=== PATIENT | female | born 1980 | race Caucasian/White ===

== ENCOUNTER → 2020-06-27 11:02 | Outpatient (BNVA) | payer MEDICAID, SELFPAY | PROVIDERS: PCP Family Medicine; Referring Provider Family Medicine; Visit Provider Surgery | DX: L98.9 Disorder of the skin and subcutaneous tissue, unspecified (principal) | CPT/HCPCS: 99212 ==

== ENCOUNTER → 2020-07-04 09:37 | Outpatient (BNVA) | payer MEDICAID, SELFPAY | PROVIDERS: PCP Family Medicine; Referring Provider Family Medicine; Visit Provider Internal Medicine | DX: Z76.89 Persons encountering health services in other specified circumstances (principal) ==

== ENCOUNTER 2020-07-09 11:38 | Outpatient (REF) | payer MEDICAID, SELFPAY ==
[2020-07-09 13:46] LABS: Alanine Aminotransferase 49 U/L (0-31); Albumin Level 4.3 g/dL (3.5-5.0); Alkaline Phosphatase 112 U/L (39-117); Anion Gap 14 (12-20); Aspartate Amino Transferase 47 U/L (5-31); Bilirubin Total 0.6 mg/dL (0.0-1.0); Blood Urea Nitrogen 7 mg/dL (9-16); Calcium 9.4 mg/dL (8.4-10.2); Carbon Dioxide 25 mmol/L (22-29); Chloride 105 mmol/L (96-108); Cholesterol 155 mg/dL; Estimated Glomerular Filt Rate > 60; Glucose Random 153 mg/dL (60-115); HDL Cholesterol 41 mg/dL; LDL Cholesterol Calculated 80 mg/dl; Potassium 3.9 mmol/l (3.3-5.1); Sodium 140 mmol/L (135-145); Total Protein 7.8 g/dL (6.5-8.0); Triglycerides 170 mg/dL
[2020-07-09 13:46] LABS: Creatinine Urine 97.88 mg/dL; Microalbum/Creatinine Ratio Ur 19.4 ug/mg cr
[2020-07-09 14:00] LABS: Estimated Average Glucose 157 mg/dL; Hemoglobin A1c % 7.1 %
[2020-07-09 14:29] LABS: Vitamin B12 317 pg/mL (200-900)
[2020-07-10 08:06] LABS: LDL Cholesterol Direct 92 mg/dL (<100)
== END 2020-07-09 11:39 | disposition home or self-care (01) ==
LOC: HO.LAB 11:38
PROVIDERS: PCP Family Medicine; Visit Provider Internal Medicine
DX: E11.9 Type 2 diabetes mellitus without complications (principal); E55.9 Vitamin D deficiency, unspecified
CPT/HCPCS: 80053; 80061; 82043; 82306; 82607; 83036; 83721

== ENCOUNTER 2020-07-10 10:00 | Outpatient (REF) | payer MEDICAID, SELFPAY ==
[2020-07-10 10:15] VITALS: BP 130/84; PULSE 80; RESP 16; TEMP 36.1; O2SAT 99
[2020-07-10 10:18] VITALS: BMI 39.6
[2020-07-10 12:06] VITALS: BP 136/88; PULSE 91; RESP 16; O2SAT 100
--- NOTE | 2020-07-10 12:14 | MHC.SHP ---
Pre-Procedural Eval Section A The patient is an INPATIENT: No Changes since office visit: Yes Patient answered all questions; No Cold of Flu in the past 2 weeks, No New Medical Problems and No Changes in Medication The History & Physical has been completed within 30 days and I have reviewed it.: Yes Section B Chief Complaint: Skin Lesion of Breast Allergies: Allergies Allergy/AdvReac Type Severity Reaction Status Date / Time morphine [MORPHINE] Allergy Intermediate DIAPHORESIS; Verified 06/27/20 11:47 TACHYCARDIA, palpitations, sweating, tingling of hands and face quetiapine [From SEROQUEL] Allergy Intermediate PALPITATION Verified 06/27/20 11:47 S trazodone [TRAZODONE] Allergy Intermediate GI Upset, Verified 06/27/20 11:47 HEART RACING, palpitations diphenhydramine Allergy Unknown HALLUCINATI Verified 06/27/20 11:47 [From BENADRYL] ONS prednisone [PREDNISONE] Allergy Unknown HEART RACES Verified 06/27/20 11:47 SEAFOOD Allergy Intermediate HIVES Uncoded 05/09/20 16:23 Benadryl Allergy Unknown palpitations, Uncoded 11/06/19 00:00 sweating Seafood Allergy Unknown redness Uncoded 11/06/19 00:00 and itching Plan Diagnosis/Plan: Unchanged Patient has been examined and remains a candidate for the planned procedure
--- NOTE | 2020-07-10 12:14 | W.PM.OPN ---
Operative Note Operative Note Date of Service: 07/10/20 Narrative: Preoperative diagnosis: Lesion left breast Postoperative diagnosis: Same Procedure: Excision of lesion left breast Anesthesia: Local 1% lidocaine with epinephrine 2 cc Specimen: lesion left breast immediate complications: None Indications: This is a 39-year-old female who has developed a tender nodular lesion on the inferior aspect of the left breast. Etiology is unclear. Excision is planned. She is familiar with the technique and risks of infection bleeding and scarring. Procedure in detail: With the patient in the supine position, time-out procedure was performed in the location of the lesion was identified. The skin in the area of the lesion was prepped with Betadine solution and was draped sterilely. Incision lines were marked on the skin and skin and subcutaneous tissues were infiltrated with local anesthetic. An elliptical incision was made surrounding the lesion and was carried into the subcutaneous tissues. The lesion was excised at the level of the superficial subcutaneous tissues. The wound was closed with 3 interrupted sutures of 5 0 nylon. Final incision length 1.2 cm. She tolerated the procedure well. A dry sterile dressing was applied. She will keep the area dry and covered for 24 hours, will use acetaminophen as needed for pain, and will follow up in the office in 1 week for wound check and suture removal.
== END 2020-07-10 10:01 | disposition home or self-care (01) ==
LOC: HO.MS 10:00
PROVIDERS: PCP Family Medicine; Visit Provider Surgery
DX: N64.9 Disorder of breast, unspecified (principal); L72.0 Epidermal cyst; Z88.8 Allergy status to other drugs, medicaments and biological substances
CPT/HCPCS: 11400; 88304; 88305

== ENCOUNTER 2020-07-23 11:23 | Outpatient (REF) | payer MEDICAID, SELFPAY ==
--- NOTE | 2020-07-23 | US_ITS ---
EXAMINATION: US EXTREMITY NONVASCULAR, LEFT CLINICAL INFORMATION: Pain in left arm. Lump surgery performed 2 years ago left upper mid arm. COMPARISON: None TECHNIQUE: Routine triana-scale imaging of the left upper medial arm triceps area was performed where the patient has pain and lump. FINDINGS: Imaging through the left upper mid medial arm in the triceps region reveals no visible focal mass, lesion or abnormal vascularity. The adjacent basilic vein is compressible and has a normal flow. US/US extremity nonvascular IMPRESSION: Imaging through the left upper mid posterior arm reveals no focal mass or lesion.
== END 2020-07-23 11:24 | disposition home or self-care (01) ==
LOC: HO.US 11:23
PROVIDERS: Visit Provider Internal Medicine
DX: M79.602 Pain in left arm (principal); N64.9 Disorder of breast, unspecified; L98.9 Disorder of the skin and subcutaneous tissue, unspecified
CPT/HCPCS: 76882; 99212

== ENCOUNTER → 2020-08-21 13:10 | Outpatient (BNVA) | payer MEDICAID, SELFPAY | PROVIDERS: PCP Family Medicine; Visit Provider Dietitian, Registered | DX: Z76.89 Persons encountering health services in other specified circumstances (principal) ==

== ENCOUNTER → 2020-08-22 07:45 | Outpatient (BNVA) | payer MEDICAID, SELFPAY | PROVIDERS: PCP Family Medicine; Visit Provider Internal Medicine | DX: Z76.89 Persons encountering health services in other specified circumstances (principal) ==

== ENCOUNTER 2020-08-28 12:04 | Outpatient (REF) | payer MEDICAID, SELFPAY ==
--- NOTE | 2020-08-28 | US_ITS ---
EXAMINATION: US ABDOMEN COMPLETE CLINICAL INFORMATION: Right upper quadrant TTP, colicky pain x2 months, NAFLD. Assess for cholelithiasis. COMPARISON: CT abdomen and pelvis 01/26/2020. Ultrasound abdomen complete 10/19/2018. Ultrasound abdomen limited 02/22/2018. KUB 06/08/2013. TECHNIQUE: Real-time imaging of the abdominal viscera. FINDINGS: PANCREAS: The head and body pancreas is homogeneous in echotexture. The tail of pancreas is not seen well. ABDOMINAL AORTA: The proximal, mid, and distal segments are normal in caliber. INFERIOR VENA CAVA: Visualized portions are normal. LIVER: The liver is normal in size. The liver contour is normal. There is heterogenous increased liver echogenicity No focal hepatic lesion. There is no intrahepatic biliary duct dilatation seen. GALLBLADDER: Normal. The gallbladder is physiologically distended without evidence of stones, sludge, polyps, wall thickening or pericholecystic fluid. COMMON BILE DUCT: Normal in caliber measuring 0.7 cm in diameter. RIGHT KIDNEY: There is echogenic stone in midpole measuring 0.4 x 0.3 cm and echogenic stone lower pole measuring 0.5 cm. There is no caliectasis. No hydronephrosis or focal parenchymal lesions. The kidney measures 10.9 cm in maximum dimension. LEFT KIDNEY: Normal. No hydronephrosis. No renal calculi or focal parenchymal lesions. The kidney measures 10.0 cm in maximum dimension. SPLEEN: Normal. The spleen measures 11.2 cm in maximum dimension. FREE FLUID: None. US/US abdomen complete IMPRESSION: 1. Hepatic echogenicity without focal focal lesion seen. 2. Midpole and lower pole right renal cyst. 3. Rest of the abdominal ultrasound is unremarkable.
== END 2020-08-28 12:05 | disposition home or self-care (01) ==
LOC: HO.US 12:04
PROVIDERS: Visit Provider Emergency Medicine
DX: R10.11 Right upper quadrant pain (principal)
CPT/HCPCS: 76700

== ENCOUNTER → 2020-09-26 09:46 | Outpatient (BNVA) | payer MEDICAID, SELFPAY | PROVIDERS: PCP Internal Medicine; Visit Provider Urology | DX: N20.0 Calculus of kidney (principal); Z87.442 Personal history of urinary calculi | CPT/HCPCS: 99202 ==

== ENCOUNTER 2020-09-30 18:07 | Emergency (ER) | payer MEDICAID, SELFPAY ==
--- NOTE | ~2020-09-30 | XR_ITS ---
Examination: XR wrist RT min 3V, XR elbow RT min 3V Indication: fall Comparison: No pertinent prior studies are currently available for comparison. Technique: 3 views of the right elbow and 5 views the right wrist Findings: Elbow: No significant joint effusion. Bones are normal anatomic alignment with no acute fracture or dislocation seen. Right wrist: Bones are normal anatomic alignment. I do not appreciate any acute fracture or dislocation. No bony destructive lesions or periosteal reaction. No radiopaque foreign body. XR/XR wrist RT min 3V Impression: No acute fracture or dislocation.
--- NOTE | ~2020-09-30 | XR_ITS ---
EXAMINATION: XR SHOULDER, RIGHT CLINICAL INFORMATION: Fall on outstretched hand COMPARISON: Right shoulder 05/24/2017 TECHNIQUE: Three views of the right shoulder. FINDINGS: The bones and soft tissues are normal. No fracture. Glenohumeral and acromioclavicular alignment is anatomic with normal joint space. No abnormal soft tissue calcifications. XR/XR shoulder RT min 2V IMPRESSION: Normal right shoulder.
--- NOTE | ~2020-09-30 | XR_ITS ---
Examination: XR wrist RT min 3V, XR elbow RT min 3V Indication: fall Comparison: No pertinent prior studies are currently available for comparison. Technique: 3 views of the right elbow and 5 views the right wrist Findings: Elbow: No significant joint effusion. Bones are normal anatomic alignment with no acute fracture or dislocation seen. Right wrist: Bones are normal anatomic alignment. I do not appreciate any acute fracture or dislocation. No bony destructive lesions or periosteal reaction. No radiopaque foreign body. XR/XR elbow RT min 3V Impression: No acute fracture or dislocation.
[2020-09-30 18:50] VITALS: BP 133/70; PULSE 108; RESP 18; TEMP 37; O2SAT 97; BMI 42.0
--- NOTE | 2020-09-30 22:07 | ED_ITS ---
HPI - Fall General Chief Complaint: Fall Stated Complaint: fall Time Seen by Provider: 09/30/20 21:57 Source: patient Mode of arrival: ambulatory Limitations: language barrier History of Present Illness HPI Narrative: 39-year-old female with past medical history of kidney stone, hyperlipidemia, hypertension, type 2 diabetes presents with an injury sustained from a slip and fall on the ice. She reports right shoulder, right elbow and right wrist pain. Is having a very difficult time raising her arm up over her head. She does not report hitting her head, losing consciousness, denies chest pain or pressure, palpitations, shortness of breath, abdominal pain, abdominal distention, dysuria, hematuria and any other concerning symptoms. MD complaint: fall Onset (ago): hour(s) (Within the hour of arrival) Fall from: standing Fall witnessed: yes, by family Place fall occurred: home Loss of consciousness: none Prolonged down time: no Symptoms prior to fall: none Context: tripped/slipped Location of injury - extremities: right: shoulder, arm, elbow and hand Related Data Home Medications Medication Instructions Recorded Confirmed metformin 1,000 mg tablet 1,000 mg PO .COMPLEX tab 06/27/20 08/22/20 blood sugar diagnostic #10 ea 07/04/20 08/22/20 pantoprazole 40 mg granules 40 mg PO DAILY 07/04/20 08/22/20 delayed-release for susp in packet tramadol 50 mg tablet 50 mg PO BID PRN 07/04/20 08/22/20 vitamin A 8,000 unit capsule 10,000 unit PO DAILY cap 07/04/20 08/22/20 Previous Rx's Medication Instructions Recorded blood-glucose meter #1 ea 07/07/20 blood sugar diagnostic #100 ea 07/08/20 lancets 28 gauge #100 ea 07/08/20 atorvastatin 40 mg tablet 40 mg PO DAILY 30 Days #30 tab 08/22/20 cholecalciferol (vitamin D3) 1,250 1,250 mcg PO QWEEK 56 Days #8 cap 08/22/20 mcg (50,000 unit) capsule cholecalciferol (vitamin D3) 50 50 mcg PO DAILY 30 Days #30 cap 08/22/20 mcg (2,000 unit) capsule lisinopril 2.5 mg tablet 2.5 mg PO DAILY 30 Days #30 tab 08/22/20 pen needle, diabetic 32 gauge x #50 ea 09/26/2008/26 semaglutide See Rx Instructions SUBCUT QWEEK 09/26/20 #1.5 ml cyclobenzaprine 10 mg PO TID PRN #14 tab 09/30/20 Allergies Allergy/AdvReac Type Severity Reaction Status Date / Time morphine [MORPHINE] Allergy Intermediate DIAPHORESIS; Verified 09/30/20 18:50 TACHYCARDIA, palpitations, sweating, tingling of hands and face quetiapine [From SEROQUEL] Allergy Intermediate PALPITATION Verified 09/30/20 18:50 S trazodone [TRAZODONE] Allergy Intermediate GI Upset, Verified 09/30/20 18:50 HEART RACING, palpitations diphenhydramine Allergy Unknown HALLUCINATI Verified 09/30/20 18:50 [From BENADRYL] ONS prednisone [PREDNISONE] Allergy Unknown HEART RACES Verified 09/30/20 18:50 SEAFOOD Allergy Intermediate HIVES Uncoded 09/26/20 10:11 Benadryl Allergy Unknown palpitations, Uncoded 09/26/20 10:11 sweating Seafood Allergy Unknown redness Uncoded 09/26/20 10:11 and itching Review of Systems Review of Systems: Constitutional: No Fever, No Chills ENT/Mouth: No Ear Pain, No Hoarseness, No sore throat Eyes: No Eye Pain, No Swelling, No Redness, No Foreign Body Cardiovascular: No Chest Pain, No SOB Respiratory: No Cough, No Dyspnea Gastrointestinal: No Nausea, No Vomiting, No Diarrhea, No abdominal Pain Genitourinary: No Dysuria, No Hematuria Musculoskeletal: positive right shoulder, right elbow, and right hand pain, No Myalgias, No Joint Swelling Skin: No Skin lacerations, No rash Neuro: No Weakness, No Numbness, No Paresthesias, No Loss of Consciousness, No Dizziness, No Headache Psych: No Anxiety/Panic, No Depression Heme/Lymph: no easy bruising, no Lymphadenopathy Endocrine: No Polyuria, No Polydipsia Yes all other systems are reviewed and are negative [facility] Past Medical History Attestation statement: The following information was validated with the patient. Source: old records reviewed Medical History Asthma Diabetes mellitus HLD (hyperlipidemia) HTN (hypertension) T2DM (type 2 diabetes mellitus) Vitamin D deficiency Surgical History History of hysterectomy (~2011) History of local excision of skin lesion Family History Family History Father Heart disease Mother No problems noted. Social History Social History Alcohol intake: never Smoking Status: Never smoker Advance Directives: No Advance Directives Information Provided: Yes Physical Exam Vital Signs: Vital Signs: Last Vital Signs Temp 98.6 F 09/30/20 18:50 Pulse 108 H 09/30/20 18:50 Resp 18 09/30/20 18:50 BP 133/70 09/30/20 18:50 Pulse Ox 97 09/30/20 18:50 Body Mass Index 42.0 Appearance: Alert. Oriented X3. No acute distress. Eyes: Pupils equal, round and reactive to light. ENT: Pharynx normal. Neck: Normal inspection. Neck supple. CVS: Normal heart rate and rhythm. Pulses normal. Respiratory: No respiratory distress. Breath sounds normal. Abdomen: Soft and nontender. Skin: Skin warm and dry. Normal skin color. Normal skin turgor. Extremities: Tenderness to the acromion process on the right side, decreased range of motion for abduction, full flexion and extension of shoulder, elbow and right hands. No snuffbox tenderness, strength equal to both extremities. Neuro: No motor deficit. No sensory deficit. Course Course Course Narrative: 39-year-old female presents with injury sustained from a slip and fall on the ice. X-rays are negative for acute findings requiring emergent intervention. She does have some acromion process tenderness and decreased range of motion with abduction to the right shoulder. We will place patient in a sling wrap, and have her follow-up with orthopedics for suspected rotator cuff injury. Patient verbalized understanding of and agrees to plan of care discharge home. 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 MDM - Fall Differential Diagnosis Differential diagnosis: Likely dislocation and fracture Medical Records Attestation: I reviewed the patient's medical records. Lab Data Attestation: I reviewed the patient's lab results. Imaging Data Shoulder, elbow and wrist x-ray: Attestation: I personally reviewed and interpreted this imaging study as follows: Radiologist's impression: EXAMINATION: XR SHOULDER, RIGHT CLINICAL INFORMATION: Fall on outstretched hand COMPARISON: Right shoulder 05/24/2017 TECHNIQUE: Three views of the right shoulder. FINDINGS: The bones and soft tissues are normal. No fracture. Glenohumeral and acromioclavicular alignment is anatomic with normal joint space. No abnormal soft tissue calcifications. XR/XR shoulder RT min 2V IMPRESSION: Normal right shoulder. Examination: XR wrist RT min 3V, XR elbow RT min 3V Indication: fall Comparison: No pertinent prior studies are currently available for comparison. Technique: 3 views of the right elbow and 5 views the right wrist Findings: Elbow: No significant joint effusion. Bones are normal anatomic alignment with no acute fracture or dislocation seen. Right wrist: Bones are normal anatomic alignment. I do not appreciate any acute fracture or dislocation. No bony destructive lesions or periosteal reaction. No radiopaque foreign body. XR/XR wrist RT min 3V Impression: No acute fracture or dislocation. Discharge Plan Discharge Clinical Impression: Muscle strain of right shoulder region, Elbow pain, right Patient Disposition: Home, Self-Care Instructions: Rotator Cuff Injury (ED) Additional Instructions: Te evaluaron por las lesiones sufridas por noa ca?da. Se sospecha que usted tiene noa lesi?n en el tend?n derecho y el codo derecho. Por favor, martha un seguimiento con ortopedia. Llame y solicite noa rogelio. Use Tylenol, Motrin y hielo seg?n sea necesario para el manejo del dolor. Para espasmos musculares, por favor use Flexeril. Nirmal medicamento es un relajante muscular, y tiene un alto riesgo de ca?crouch y p?rdida de equilibrio. Tenga cuidado mientras mattie nirmal medicamento, no conduzca ni opere maquinaria mientras est? tomando nirmal medicamento. Tabitha por elegir nirmal departamento de emergencias para la evaluaci?n. Por favor, martha un seguimiento con el m?dico de atenci?n primaria seg?n sea necesario. Regrese al servicio de urgencias para cualquier s?ntoma nuevo, preocupante o que empeore. You were evaluated for injuries sustained from a fall. It is suspected that you have a tendon injury to the right shoulder and the right elbow. Please follow- up with orthopedics. Please call and request an appointment. Use Tylenol, Motrin, and ice as needed for pain management. For muscle spasms, please use Flexeril. This medication is a muscle relaxer, and has high risk for falls and loss of balance. Use caution while taking this medication, do not drive or operate machinery while taking this medication. Thank you for choosing this emergency department for evaluation. Please follow-up with primary care physician as needed. Return to the emergency department for any new, concerning, or worsening symptoms. Prescriptions: New cyclobenzaprine 10 mg tablet 10 mg PO TID PRN (Reason: muscle spasm) Qty: 14 RF: 0 No Action (DME) Blood Glucose Test Strip See Rx Instructions .ROUTE .MEDSUPPLY Qty: 100 RF: 11 Ozempic 0.25 mg or 0.5 mg(2 mg/1.5 mL) pen injector See Rx Instructions subcut QWEEK Qty: 1.5 RF: 11 (DME) pen needle, diabetic [BD Ultra-Fine Micro Pen Needle] 32 gauge x 1/4 needle See Rx Instructions .ROUTE .MEDSUPPLY Qty: 50 RF: 11 metformin 1,000 mg tablet 1,000 mg PO .COMPLEX RF: 0 pantoprazole [Protonix] [address] for susp in packet 40 mg PO DAILY RF: 0 vitamin A 8,000 unit capsule 10,000 unit PO DAILY RF: 0 tramadol 50 mg tablet 50 mg PO BID PRNRF: 0 (DME) FreeStyle Test Strip See Rx Instructions .ROUTE .MEDSUPPLY Qty: 10 RF: 0 (DME) blood-glucose meter [FreeStyle Lite Meter] Kit See Rx Instructions .ROUTE .MEDSUPPLY Qty: 1 RF: 0 (DME) lancets [FreeStyle Lancets] 28 gauge misc See Rx Instructions .ROUTE .MEDSUPPLY Qty: 100 RF: 11 atorvastatin 40 mg tablet 40 mg PO DAILY 30 Days Qty: 30 RF: 11 lisinopril 2.5 mg tablet 2.5 mg PO DAILY 30 Days Qty: 30 RF: 11 cholecalciferol (vitamin D3) 50 mcg (2,000 unit) capsule 50 mcg PO DAILY 30 Days Qty: 30 RF: 11 cholecalciferol (vitamin D3) 1,250 mcg (50,000 unit) capsule 1,250 mcg PO QWEEK 56 Days Qty: 8 RF: 0 Referrals: Juan Antonio Rios MD [Physician] - 2 days (Right shoulder rotator cuff injury) Interventions: ED Discharge Assessment Last Done: 09/30/20 22:36 Discharge Date/Time: 09/30/20 22:37
[2020-09-30] MEDS: Cyclobenzaprine HCl 10 MG TABLET PO (22:28)
[2020-09-30] MEDS: Ketorolac Tromethamine 60 MG/2 ML VIAL IM (22:29)
== END 2020-09-30 22:37 | disposition home or self-care (01) ==
PROVIDERS: Emergency Provider Internal Medicine
DX: S46.911A Strain of unspecified muscle, fascia and tendon at shoulder and upper arm level, right arm, initial encounter (principal); W00.0XXA Fall on same level due to ice and snow, initial encounter; M25.521 Pain in right elbow; E11.9 Type 2 diabetes mellitus without complications; I10 Essential (primary) hypertension; Y93.89 Activity, other specified; Y92.9 Unspecified place or not applicable; Y99.9 Unspecified external cause status
CPT/HCPCS: 73030; 73080; 73110; 96372; 99283; 99284; J1885

== ENCOUNTER → 2020-10-04 12:38 | Outpatient (BNVA) | payer MEDICAID, SELFPAY | PROVIDERS: Visit Provider Physician Assistant | DX: S46.911A Strain of unspecified muscle, fascia and tendon at shoulder and upper arm level, right arm, initial encounter (principal) | CPT/HCPCS: 99202 ==

== ENCOUNTER 2020-10-09 06:52 | Day surgery (SDC) | payer MEDICAID, SELFPAY ==
[2020-10-01 19:13] VITALS: BMI 39.0
--- NOTE | 2020-10-08 12:16 | HO.ANESPROP2 ---
Documented by User: Maribel Lydia 10/08/20 12:20 HPI - Anesthesia Eval Consult details Narrative: 39yo F for R ESWL No prev ESWL on record PMFSH Active Problems Active Problems: All Active Problems (Updated 10/04/20 @ 13:11 by Margi Pizarro PA-C) Rotator cuff strain (Acute) Right shoulder strain (Acute) Skin lesion of breast (Acute) Skin lesion (Acute) Nephrolithiasis (Acute) Vitamin D deficiency (Acute) HLD (hyperlipidemia) (Acute) HTN (hypertension) (Acute) T2DM (type 2 diabetes mellitus) (Acute) Past Medical History Medical History Anxiety Asthma Diabetes mellitus Elevated cholesterol Fatty liver GERD (gastroesophageal reflux disease) HLD (hyperlipidemia) HTN (hypertension) Migraines T2DM (type 2 diabetes mellitus) Vitamin D deficiency Family History Family History Father Heart disease Mother No problems noted. Surgical History Surgical History History of hysterectomy (~2011) History of local excision of skin lesion Social History Social History Alcohol intake: never Smoking Status: Never smoker Second Hand Smoke Exposure: No Use of substances other than those prescribed or required for medical reasons: No Advance Directives: No Advance Directives Information Provided: No Advance Directives on File: No Recently lost weight without trying: No Meds Allergies Allergy/AdvReac Type Severity Reaction Status Date / Time morphine [MORPHINE] Allergy Intermediate DIAPHORESIS; Verified 10/09/20 08:18 TACHYCARDIA, palpitations, sweating, tingling of hands and face quetiapine [From SEROQUEL] Allergy Intermediate PALPITATION Verified 10/09/20 08:18 S trazodone [TRAZODONE] Allergy Intermediate GI Upset, Verified 10/09/20 08:18 HEART RACING, palpitations diphenhydramine Allergy Unknown HALLUCINATI Verified 10/09/20 08:18 [From BENADRYL] ONS prednisone [PREDNISONE] Allergy Unknown HEART RACES Verified 10/09/20 08:18 SEAFOOD Allergy Intermediate HIVES Uncoded 09/26/20 10:11 Benadryl Allergy Unknown palpitations, Uncoded 09/26/20 10:11 sweating Seafood Allergy Unknown redness Uncoded 09/26/20 10:11 and itching Home Medications Medication Instructions Recorded Confirmed Last Taken Type metformin 1,000 mg tablet 1,000 mg PO .COMPLEX tab 06/27/20 10/01/20 Unknown History blood sugar diagnostic #10 ea 07/04/20 08/22/20 Unknown History pantoprazole 40 mg granules 40 mg PO DAILY 07/04/20 10/01/20 Unknown History delayed-release for susp in packet tramadol 50 mg tablet 50 mg PO BID PRN 07/04/20 10/01/20 Unknown History vitamin A 8,000 unit capsule 10,000 unit PO DAILY cap 07/04/20 10/01/20 Unknown History albuterol sulfate 2 puff INHALATION Q4-6H PRN 10/01/20 10/01/20 10/09/20 06:30 History Exam Exam Date and Time: October 08, 2020 1216 Height,Weight and Vital Signs: Height 5 ft Weight 90.718 kg Pertinent Lab Results Pertinent Lab Results: Laboratory Tests 07/13/19 07/09/20 13:48 11:54 WBC 9.0 Hgb 13.5 Hct 38.9 Plt Count 271 Sodium 140 Potassium 3.9 Chloride 105 Carbon Dioxide 25 BUN 7 L Creatinine 0.74 Assessment and Plan Assessment Anesthesia Assessment: Chart Reviewed Documented by User: Sonia Juarez 10/09/20 10:06 [facility] Past Medical History Medical History Anxiety Asthma Diabetes mellitus Elevated cholesterol Fatty liver GERD (gastroesophageal reflux disease) HLD (hyperlipidemia) HTN (hypertension) Migraines T2DM (type 2 diabetes mellitus) Vitamin D deficiency Family History Family History Father Heart disease Mother No problems noted. Surgical History Surgical History History of hysterectomy (~2011) History of local excision of skin lesion Social History Social History Alcohol intake: never Smoking Status: Never smoker Second Hand Smoke Exposure: No Use of substances other than those prescribed or required for medical reasons: No Advance Directives: No Advance Directives Information Provided: No Advance Directives on File: No Recently lost weight without trying: No Meds Allergies Allergy/AdvReac Type Severity Reaction Status Date / Time morphine [MORPHINE] Allergy Intermediate DIAPHORESIS; Verified 10/09/20 08:18 TACHYCARDIA, palpitations, sweating, tingling of hands and face quetiapine [From SEROQUEL] Allergy Intermediate PALPITATION Verified 10/09/20 08:18 S trazodone [TRAZODONE] Allergy Intermediate GI Upset, Verified 10/09/20 08:18 HEART RACING, palpitations diphenhydramine Allergy Unknown HALLUCINATI Verified 10/09/20 08:18 [From BENADRYL] ONS prednisone [PREDNISONE] Allergy Unknown HEART RACES Verified 10/09/20 08:18 SEAFOOD Allergy Intermediate HIVES Uncoded 09/26/20 10:11 Benadryl Allergy Unknown palpitations, Uncoded 09/26/20 10:11 sweating Seafood Allergy Unknown redness Uncoded 09/26/20 10:11 and itching Home Medications Medication Instructions Recorded Confirmed Last Taken Type metformin 1,000 mg tablet 1,000 mg PO .COMPLEX tab 06/27/20 10/01/20 Unknown History blood sugar diagnostic #10 ea 07/04/20 08/22/20 Unknown History pantoprazole 40 mg granules 40 mg PO DAILY 07/04/20 10/01/20 Unknown History delayed-release for susp in packet tramadol 50 mg tablet 50 mg PO BID PRN 07/04/20 10/01/20 Unknown History vitamin A 8,000 unit capsule 10,000 unit PO DAILY cap 07/04/20 10/01/20 Unknown History albuterol sulfate 2 puff INHALATION Q4-6H PRN 10/01/20 10/01/20 10/09/20 06:30 History Exam Airway Mallampati Class: II TM Dist: >3cm Neck ROM: Full Assessment and Plan Assessment Anesthesia Assessment: Anesthesia Plan Discussed and Chart Reviewed Final Anesthetic Review NPO: Yes ASA Class: II Final Preanesthetic Review: No Changes in Pt Med Stat, Meds/Allgs Chart Reviewed, Consent Obtained/Reviewed and Anes Risks/Benef Reviewed Patient Risk: Low Procedure Risk: Low Assessment/Block/Sedation in SS: Assess/Block/Sedation-SS Anesthetic Plan Anesthetic Plan: MAC: Disposition: Standard PACU
--- NOTE | ~2020-10-09 | XR_ITS ---
EXAMINATION: XR ABDOMEN KUB CLINICAL INDICATION: Stones. COMPARISON: CT of 01/26/2020. TECHNIQUE: AP view of the abdomen. FINDINGS: The bowel gas pattern is normal with no evidence of ileus or obstruction. The bones are unremarkable. Overlying the region of the midpole of the right kidney, there is a 4 mm calculus corresponding to CT finding. No other calculi are seen overlying the kidneys or along the expected paths of the ureters. Phleboliths seen about the left pelvis. Psoas margins are intact. XR/XR KUB IMPRESSION: 4 mm right renal calculus.
[2020-10-09 08:31] VITALS: BP 120/75; PULSE 92; RESP 16; TEMP 36.4; O2SAT 98
[2020-10-09 08:36] LABS: Glucose, Whole Blood 120 mg/dL (60-115)
[2020-10-09] MEDS: Lactated Ringers 1,000 ML 100 ML IVCONT (08:43)
--- NOTE | 2020-10-09 09:57 | MHC.SHP ---
Pre-Procedural Eval Section A The patient is an INPATIENT: No Changes since office visit: No Cold of Flu in the past 2 weeks, No New Medical Problems, No Changes in Medication and No Patient answered all questions The History & Physical has been completed within 30 days and I have reviewed it.: Yes Section B Chief Complaint: calculus of kidney Allergies: Allergies Allergy/AdvReac Type Severity Reaction Status Date / Time morphine [MORPHINE] Allergy Intermediate DIAPHORESIS; Verified 10/09/20 08:18 TACHYCARDIA, palpitations, sweating, tingling of hands and face quetiapine [From SEROQUEL] Allergy Intermediate PALPITATION Verified 10/09/20 08:18 S trazodone [TRAZODONE] Allergy Intermediate GI Upset, Verified 10/09/20 08:18 HEART RACING, palpitations diphenhydramine Allergy Unknown HALLUCINATI Verified 10/09/20 08:18 [From BENADRYL] ONS prednisone [PREDNISONE] Allergy Unknown HEART RACES Verified 10/09/20 08:18 SEAFOOD Allergy Intermediate HIVES Uncoded 09/26/20 10:11 Benadryl Allergy Unknown palpitations, Uncoded 09/26/20 10:11 sweating Seafood Allergy Unknown redness Uncoded 09/26/20 10:11 and itching Plan Diagnosis/Plan: Unchanged I have reviewed the history and physical and performed a pertinent physical examination on my patient. No changes have occurred unless specified. right eswl 2-3 4mm stones
--- NOTE | 2020-10-09 09:57 | PM.OP ---
Brief Operative Note Date of Service: 10/09/20 Pre-op diagnosis: right renal stones 2-3 4mm stones Post-op diagnosis: same Procedure: right eswl Surgeon: Wellington Mchugh MD Anesthesia: MAC Estimated blood loss (mL): 0 Pathology: none sent Condition: stable Disposition: same day
--- NOTE | 2020-10-09 10:16 | W.PM.OPN ---
Operative Note Operative Note Date of Service: 10/09/20 Narrative: PreOperative Diagnosis: right Renal stones Post Operative Diagnosis: right Renal stones Procedure: right ESWL Surgeon: Dr Wellington Mchugh Anesthesia: mac/sedation Indications for procedure: They understand ESWL may be a staged procedure and subsequent intervention may be required based on imaging after ESWL. They also understand there is a risk of bleeding, infection, damage to adjacent organs. Right 2x 4mm stones Procedure: After informed consent was verified the patient was brought to the operating room and placed in a supine position. Anesthesia was performed per protocol. Safety pause time-out was performed. Imaging was in the room and laterality confirmed. ESWL was performed. The 1st 500 shocks were performed at 60 hertz. These were performed with increasing power. Once maximum power was reached the rate was increased to 180 hertz. A total of 2500 shocks were given. Fluoroscopy showed stone disintegration. They tolerated procedure well and was transferred to the recovery area upon completion.
[2020-10-09 10:22] VITALS: BP 133/79; PULSE 86; RESP 16; TEMP 36.3; O2SAT 96
[2020-10-09 10:37] VITALS: BP 122/76; PULSE 77; RESP 18; O2SAT 95
[2020-10-09 10:52] VITALS: BP 122/76; PULSE 75; RESP 18; TEMP 36.6; O2SAT 97
== END 2020-10-09 11:40 | disposition home or self-care (01) ==
PROVIDERS: PCP Family Medicine; Visit Provider Urology
PROC: (CPT 50590; principal; 2020-10-09 09:40)
DX: N20.0 Calculus of kidney (principal); Z87.442 Personal history of urinary calculi; I10 Essential (primary) hypertension; E11.9 Type 2 diabetes mellitus without complications; J45.909 Unspecified asthma, uncomplicated; E55.9 Vitamin D deficiency, unspecified; Z79.84 Long term (current) use of oral hypoglycemic drugs; Z79.899 Other long term (current) drug therapy; Z88.8 Allergy status to other drugs, medicaments and biological substances
CPT/HCPCS: 50590; 74018; 82947; J1885; J2405; J3010

== ENCOUNTER 2020-10-13 22:33 | Emergency (ER) | payer MEDICAID, SELFPAY ==
--- NOTE | ~2020-10-13 | CT_ITS ---
EXAMINATION: CT ABDOMEN AND PELVIS WITHOUT CONTRAST CLINICAL INFORMATION: Right lower quadrant pain and right flank pain. Status post lithotripsy on October 09 COMPARISON: 01/26/2020 TECHNIQUE: Multidetector volumetric imaging was performed from the superior aspect of the liver through the pubic symphysis. Sagittal and coronal reformatted images were obtained on the technologist's workstation. This CT examination was performed using dose optimization techniques as appropriate, variously including the following: *Automated exposure control *Adjustment of mA and/or kV according to patient size (this includes techniques or standardized protocols for targeted exams where dose is matched to indication/reason for exam; i.e. extremities or head) *Use of iterative reconstruction technique DLP: 847 mGy-cm FINDINGS: LUNG BASES: The visualized lung bases are unremarkable. LIVER, GALLBLADDER, AND BILIARY TREE: The liver is normal in size and shape with decreased attenuation. No focal hepatic lesion or biliary ductal dilatation is present. The gallbladder is unremarkable with no evidence of radiopaque gallstones, gallbladder wall thickening, or obvious pericholecystic inflammatory changes. PANCREAS: Unremarkable. SPLEEN: Unremarkable. ADRENAL GLANDS: Unremarkable. KIDNEYS AND URETERS: The kidneys are normal in size, shape, and attenuation. There is mild right hydroureteronephrosis. There is a distal ureteral calculus measuring 0.4 cm, approximately 1 cm proximal to the ureterovesicular junction. No left hydronephrosis or hydroureter. No left renal or ureteral calculi. There are multiple additional right-sided nonobstructing calculi. At least 4 calculi are seen at the mid to upper pole, with the largest measuring 0.3 cm, 9 cm from the posterior axillary line. BLADDER: Unremarkable. GASTROINTESTINAL TRACT: The stomach is unremarkable. Normal caliber small bowel. There is no obstruction. Normal appendix. No colonic wall thickening or inflammatory change. Stool distends the rectum. No free air or free fluid. ABDOMINAL WALL: No significant hernia is appreciated. LYMPH NODES: Normal. VASCULAR: Unremarkable. PELVIC VISCERA: The uterus is not seen. No adnexal mass. OSSEOUS STRUCTURES: No acute or suspicious osseous abnormality. CT/CT abdomen pelvis wo con IMPRESSION: Mild right hydroureteronephrosis with a 0.4 cm distal ureteral obstructing calculus. Additional nonobstructing right renal calculi are present. Hepatic steatosis.
[2020-10-13 22:35] VITALS: BP 145/97; PULSE 118; RESP 20; TEMP 36.4; O2SAT 96; BMI 42.0
--- NOTE | 2020-10-13 22:48 | PC.NURSE ---
Blood work obtained and sent. Pt provided with a urine cup but unable to provide sample at this time.
[2020-10-13 22:52] LABS: MANUAL DIFF FLAG NO
[2020-10-13 22:53] LABS: Basophils Percent Auto 0.2 % (0-2); Eosinophils Absolute Auto 0.2 X10*3/uL (0.0-0.4); Eosinophils Percent Auto 1.2 % (0-4); Hematocrit 41.1 % (37-47); Hemoglobin 13.4 g/dl (12.0-16.0); Imm Gran Abs Auto 0.03 X10*3/uL (0.00-0.03); Imm Gran Pct Auto 0.2 % (0.0-0.4); Lymphocytes Absolute Auto 4.2 X10*3/uL (1.2-4.9); Mean Corpuscular HGB Conc 32.6 g/dl (31.0-35.0); Mean Corpuscular Hemoglobin 27.2 pg (27.0-33.0); Mean Corpuscular Volume 83.5 fL (80-98); Mean Platelet Volume 10.2 fL (9.4-12.3); Monocytes Absolute Auto 0.7 X10*3/uL (0.1-1.2); Neutrophils Absolute Auto 9.4 X10*3/uL (2.0-8.3); Neutrophils Percent Auto 64.4 % (45-73); Platelet Count 331 X10*3/uL (160-400); Red Blood Count 4.92 X10*6/uL (4.20-5.50); White Blood Count 14.6 X10*3/uL (4.8-10.8)
[2020-10-13 23:28] LABS: Alanine Aminotransferase 57 U/L (0-31); Albumin Level 4.7 g/dL (3.5-5.0); Alkaline Phosphatase 133 U/L (39-117); Anion Gap 18 (12-20); Aspartate Amino Transferase 54 U/L (5-31); Bilirubin Total 0.7 mg/dL (0.0-1.0); Blood Urea Nitrogen 17 mg/dL (9-16); Calcium 9.5 mg/dL (8.4-10.2); Carbon Dioxide 22 mmol/L (22-29); Chloride 105 mmol/L (96-108); Estimated Glomerular Filt Rate > 60; Glucose Random 119 mg/dL (60-115); Potassium 4.1 mmol/L (3.3-5.1); Sodium 141 mmol/L (135-145); Total Protein 8.2 g/dL (6.5-8.0)
[2020-10-13 23:29] LABS: Glucose Urine UA NEG (NEG); Leukocyte Esterase Urine NEG (NEG); Nitrite Urine NEG (NEG); Specific Gravity - Urine >= 1.030 (1.005-1.025); Urine Blood 3+ (NEG); Urine Ketones 5 MG/DL (NEG); Urine Protein 1+ MG/DL (NEG-TRACE)
[2020-10-13 23:31] LABS: Appearance Urine HAZY; Color Urine YELLOW
[2020-10-13 23:35] LABS: Bacteria Urine 2+ /LPF; Mucus Urine 2+ /LPF; RBC Urine 50-75 /HPF (0); Squamous Epithelial Cell Urine 2+ /LPF
--- NOTE | 2020-10-14 00:35 | PC.NURSE ---
Pt off to CT on hospital bed at this time.
--- NOTE | 2020-10-14 00:36 | ED_ITS ---
HPI - Abdominal Pain General Chief Complaint: Abdominal Pain Stated Complaint: flank pain,nausea Time Seen by Provider: 10/14/20 00:17 Source: patient Mode of arrival: ambulatory Limitations: no limitations History of Present Illness HPI narrative: Patient comes emergency room complaining of right-sided flank pain, right upper quadrant and right lower quadrant pain. Patient states it started earlier this morning. On 10/09/2020 patient had a lithotripsy on the right side. Patient states the 1st 2 days she experience hematuria but no flank pain. The pain started today. Patient denies dysuria or hematuria at this time, no fever chills MD elicited complaint: flank pain Related Data Home Medications Medication Instructions Recorded Confirmed metformin 1,000 mg tablet 1,000 mg PO .COMPLEX tab 06/27/20 10/01/20 blood sugar diagnostic #10 ea 07/04/20 08/22/20 pantoprazole 40 mg granules 40 mg PO DAILY 07/04/20 10/01/20 delayed-release for susp in packet tramadol 50 mg tablet 50 mg PO BID PRN 07/04/20 10/01/20 vitamin A 8,000 unit capsule 10,000 unit PO DAILY cap 07/04/20 10/01/20 albuterol sulfate 2 puff INHALATION Q4-6H PRN 10/01/20 10/01/20 Previous Rx's Medication Instructions Recorded blood-glucose meter #1 ea 07/07/20 blood sugar diagnostic #100 ea 07/08/20 lancets 28 gauge #100 ea 07/08/20 atorvastatin 40 mg tablet 40 mg PO DAILY 30 Days #30 tab 08/22/20 cholecalciferol (vitamin D3) 1,250 1,250 mcg PO QWEEK 56 Days #8 cap 08/22/20 mcg (50,000 unit) capsule cholecalciferol (vitamin D3) 50 50 mcg PO DAILY 30 Days #30 cap 08/22/20 mcg (2,000 unit) capsule lisinopril 2.5 mg tablet 2.5 mg PO DAILY 30 Days #30 tab 08/22/20 pen needle, diabetic 32 gauge x #50 ea 09/26/20 1/4 cyclobenzaprine 10 mg PO TID PRN #14 tab 09/30/20 dulaglutide 0.75 mg/0.5 mL 0.75 mg SUBCUT QWEEK 30 Days #2.5 10/03/20 subcutaneous pen injector ml tamsulosin 0.4 mg PO BEDTIME #14 cap 10/09/20 tramadol 50 mg PO Q6H PRN #14 tab 10/09/20 ketorolac 10 mg PO TID 5 Days #15 tab 10/14/20 Allergies Allergy/AdvReac Type Severity Reaction Status Date / Time morphine [MORPHINE] Allergy Intermediate DIAPHORESIS; Verified 10/09/20 08:18 TACHYCARDIA, palpitations, sweating, tingling of hands and face quetiapine [From SEROQUEL] Allergy Intermediate PALPITATION Verified 10/09/20 08:18 S trazodone [TRAZODONE] Allergy Intermediate GI Upset, Verified 10/09/20 08:18 HEART RACING, palpitations diphenhydramine Allergy Unknown HALLUCINATI Verified 10/09/20 08:18 [From BENADRYL] ONS prednisone [PREDNISONE] Allergy Unknown HEART RACES Verified 10/09/20 08:18 SEAFOOD Allergy Intermediate HIVES Uncoded 09/26/20 10:11 Benadryl Allergy Unknown palpitations, Uncoded 09/26/20 10:11 sweating Seafood Allergy Unknown redness Uncoded 09/26/20 10:11 and itching Review of Systems Review of Systems Constitutional : No Weight loss, No Fever, No Chills, No Night Sweats, No Fatigue, No Malaise ENT/Mouth : No Hearing loss, No Ear Pain, No Nasal Congestion, No Sinus Pain, No Hoarseness, No sore throat, No Rhinorrhea, No Swallowing Difficulty Eyes: No Eye Pain, No Swelling, No Redness, No Foreign Body, No Discharge, No Vision Changes Cardiovascular : No Chest Pain, No SOB, No Dyspnea on Exertion, No Orthopnea, No Edema, No Palpitations Respiratory : No Cough, No Sputum, No Wheezing, No Smoke Exposure, No Dyspnea Gastrointestinal : c/o Nausea, No Vomiting, No Diarrhea, No Constipation, complaining of right flank pain, right upper and lower quadrant pain, No Hematochezia, No Melena Genitourinary : no irregular bleeding, No Dysuria, No Urinary Frequency, No Hematuria, No Urinary Incontinence, No Urgency, No Flank Pain, No Urinary Flow Changes, No Hesitancy Musculoskeletal : No joint pain, No Myalgias, No Joint Swelling Skin : No Skin Lesions, No rash Neuro : No Weakness, No Numbness, No Paresthesias, No Loss of Consciousness, No Dizziness, No Headache Psych : No Anxiety/Panic, No Depression, No SI/HI/AH/VH, No Social Issues, Heme/Lymph: No Bruising, No Bleeding,No Lymphadenopathy Endocrine : No Polyuria, No Polydipsia, No Temperature Intolerance Physical Exam Vital Signs: Vital Signs: Last Vital Signs Temp 97.5 F 10/13/20 22:35 Pulse 88 10/14/20 01:00 Resp 16 10/14/20 01:00 BP 129/86 10/14/20 01:00 Pulse Ox 99 10/14/20 01:00 Body Mass Index 42.0 Appearance: Alert. Oriented X3. In [id number] distress Eyes: Pupils equal, round and reactive to light. ENT: Pharynx normal. Neck: Normal inspection. Neck supple. No lymph nodes noted. No crepitus CVS: Normal heart rate and rhythm. Pulses normal. Normal S1 and S2 Respiratory: No respiratory distress. Breath sounds normal. No Wheezing. No rales Abdomen: Soft , positive CVA tenderness on the right side, no right upper quadrant tenderness on deep palpation, mild discomfort in right lower quadrant and suprapubic area. No rigidity. No distention. good BS x4 Skin: Skin warm and dry. Normal skin color. Normal skin turgor. Extremities: No lower extremity edema. No lower extremity edema. No Lacera tions. No Rash Neuro: Oriented X 3. No motor deficit. No sensory deficit. Moving all extermities. No slurred speech. Course Course Course Narrative: I discussed the labs and imaging with the patient. Patient is still passing fragmented stones. Patient states she got fairly good relief of pain with Toradol. Pain is starting again to have pain. Patient instructed to follow-up with Dr. Mchugh. White blood cell count elevated likely secondary to reactive leukocytosis, patient has no fever, urinalysis negative for UTI MDM - Abdominal Pain Lab Data Result diagrams: 10/13/20 22:47 10/13/20 22:47 Labs: Lab Results 10/13/20 10/13/20 10/13/20 Range/Units 22:47 22:47 22:47 WBC 14.6 H (4.8-10.8) X10*3/uL RBC 4.92 (4.20-5.50) X10*6/uL Hgb 13.4 (12.0-16.0) g/dl Hct 41.1 (37-47) % MCV 83.5 (80-98) fL MCH 27.2 (27.0-33.0) pg MCHC 32.6 (31.0-35.0) g/dl RDW 13.0 (11.0-16.0) % Plt Count 331 (160-400) X10*3/uL MPV 10.2 (9.4-12.3) fL Immature Gran % (Auto) 0.2 (0.0-0.4) % Neut % (Auto) 64.4 (45-73) % Lymph % (Auto) 29.0 (20-40) % Mccone % (Auto) 5.0 (2-11) % Eos % (Auto) 1.2 (0-4) % Baso % (Auto) 0.2 (0-2) % Lymph # (Auto) 4.2 (1.2-4.9) X10*3/uL Mccone # (Auto) 0.7 (0.1-1.2) X10*3/uL Eos # (Auto) 0.2 (0.0-0.4) X10*3/uL Baso # (Auto) 0.0 (0.0-0.2) X10*3/uL Abs Immat Gran (auto) 0.03 (0.00-0.03) X10*3/uL Absolute Neuts (auto) 9.4 H (2.0-8.3) X10*3/uL Absolute Nucleated RBC 0.000 (0.0-0.012) X10*3/uL Nucleated RBC % (auto) 0.0 (0.0-0.2) /100WBC Hold Blue Top SEE NOTE Sodium 141 (135-145) mmol/L Potassium 4.1 (3.3-5.1) mmol/L Chloride 105 (96-108) mmol/L Carbon Dioxide 22 (22-29) mmol/L Anion Gap 18 (12-20) BUN 17 H D (9-16) mg/dL Creatinine 0.90 (0.5-1.4) mg/dL Estim Creat Clear Calc 87.0 Estimated GFR > 60 Random Glucose 119 H (60-115) mg/dL Calcium 9.5 (8.4-10.2) mg/dL Total Bilirubin 0.7 (0.0-1.0) mg/dL AST 54 H (5-31) U/L ALT 57 H (0-31) U/L Alkaline Phosphatase 133 H (39-117) U/L Total Protein 8.2 H (6.5-8.0) g/dL Albumin 4.7 (3.5-5.0) g/dL Urine Color Urine Appearance Urine pH (5.0-8.0) Ur Specific [place] (1.005-1.025) Urine Protein (NEG-TRACE) MG/DL Urine Glucose (UA) (NEG) MG/DL Urine Ketones (NEG) MG/DL Urine Blood (NEG) Urine Nitrite (NEG) Ur Leukocyte Esterase (NEG) Urine RBC (0) /HPF Urine WBC (0-4) /HPF Ur Squamous Epith Cells /LPF Urine Bacteria /LPF Urine Mucus /LPF 10/13/20 Range/Units 23:23 WBC (4.8-10.8) X10*3/uL RBC (4.20-5.50) X10*6/uL Hgb (12.0-16.0) g/dl Hct (37-47) % MCV (80-98) fL MCH (27.0-33.0) pg MCHC (31.0-35.0) g/dl RDW (11.0-16.0) % Plt Count (160-400) X10*3/uL MPV (9.4-12.3) fL Immature Gran % (Auto) (0.0-0.4) % Neut % (Auto) (45-73) % Lymph % (Auto) (20-40) % Mccone % (Auto) (2-11) % Eos % (Auto) (0-4) % Baso % (Auto) (0-2) % Lymph # (Auto) (1.2-4.9) X10*3/uL Mccone # (Auto) (0.1-1.2) X10*3/uL Eos # (Auto) (0.0-0.4) X10*3/uL Baso # (Auto) (0.0-0.2) X10*3/uL Abs Immat Gran (auto) (0.00-0.03) X10*3/uL Absolute Neuts (auto) (2.0-8.3) X10*3/uL Absolute Nucleated RBC (0.0-0.012) X10*3/uL Nucleated RBC % (auto) (0.0-0.2) /100WBC Hold Blue Top Sodium (135-145) mmol/L Potassium (3.3-5.1) mmol/L Chloride (96-108) mmol/L Carbon Dioxide (22-29) mmol/L Anion Gap (12-20) BUN (9-16) mg/dL Creatinine (0.5-1.4) mg/dL Estim Creat Clear Calc Estimated GFR Random Glucose (60-115) mg/dL Calcium (8.4-10.2) mg/dL Total Bilirubin (0.0-1.0) mg/dL AST (5-31) U/L ALT (0-31) U/L Alkaline Phosphatase (39-117) U/L Total Protein (6.5-8.0) g/dL Albumin (3.5-5.0) g/dL Urine Color YELLOW Urine Appearance HAZY Urine pH 6.0 (5.0-8.0) Ur Specific [place] >= 1.030 H (1.005-1.025) Urine Protein 1+ H (NEG-TRACE) MG/DL Urine Glucose (UA) NEG (NEG) MG/DL Urine Ketones 5 (NEG) MG/DL Urine Blood 3+ H (NEG) Urine Nitrite NEG (NEG) Ur Leukocyte Esterase NEG (NEG) Urine RBC 50-75 H (0) /HPF Urine WBC 1-4 (0-4) /HPF Ur Squamous Epith Cells 2+ /LPF Urine Bacteria 2+ /LPF Urine Mucus 2+ /LPF Imaging Data CT scan - abdomen: Radiologist's impression: FINDINGS: LUNG BASES: The visualized lung bases are unremarkable. LIVER, GALLBLADDER, AND BILIARY TREE: The liver is normal in size and shape with decreased attenuation. No focal hepatic lesion or biliary ductal dilatation is present. The gallbladder is unremarkable with no evidence of radiopaque gallstones, gallbladder wall thickening, or obvious pericholecystic inflammatory changes. PANCREAS: Unremarkable. SPLEEN: Unremarkable. ADRENAL GLANDS: Unremarkable. KIDNEYS AND URETERS: The kidneys are normal in size, shape, and attenuation. There is mild right hydroureteronephrosis. There is a distal ureteral calculus measuring 0.4 cm, approximately 1 cm proximal to the ureterovesicular junction. No left hydronephrosis or hydroureter. No left renal or ureteral calculi. There are multiple additional right-sided nonobstructing calculi. At least 4 calculi are seen at the mid to upper pole, with the largest measuring 0.3 cm, 9 cm from the posterior axillary line. BLADDER: Unremarkable. GASTROINTESTINAL TRACT: The stomach is unremarkable. Normal caliber small bowel. There is no obstruction. Normal appendix. No colonic wall thickening or inflammatory change. Stool distends the rectum. No free air or free fluid. ABDOMINAL WALL: No significant hernia is appreciated. LYMPH NODES: Normal. VASCULAR: Unremarkable. PELVIC VISCERA: The uterus is not seen. No adnexal mass. OSSEOUS STRUCTURES: No acute or suspicious osseous abnormality. CT/CT abdomen pelvis wo con IMPRESSION: Mild right hydroureteronephrosis with a 0.4 cm distal ureteral obstructing calculus. Additional nonobstructing right renal calculi are present. Hepatic steatosis. Discharge Plan Discharge Clinical Impression: Nephrolithiasis Patient Disposition: Home, Self-Care Instructions: Kidney Stones (ED) Additional Instructions: Please follow-up with your primary care physician tomorrow. If you have any worsening or new symptoms, please return to the emergency room or call 911 Prescriptions: New ketorolac 10 mg tablet 10 mg PO TID 5 Days Qty: 15 RF: 0 No Action (DME) Blood Glucose Test Strip See Rx Instructions .ROUTE .MEDSUPPLY Qty: 100 RF: 11 (DME) pen needle, diabetic [BD Ultra-Fine Micro Pen Needle] 32 gauge x 1/4 needle See Rx Instructions .ROUTE .MEDSUPPLY Qty: 50 RF: 11 Trulicity 0.75 mg/0.5 mL pen injector 0.75 mg subcut QWEEK 30 Days Qty: 2.5 RF: 11 cyclobenzaprine 10 mg tablet 10 mg PO TID PRN (Reason: muscle spasm) Qty: 14 RF: 0 albuterol sulfate 90 mcg/actuation Hfa Aerosol Inhaler 2 puff INHALATION Q4-6H PRN (Reason: Shortness Of Breath) RF: 0 tramadol 50 mg tablet 50 mg PO Q6H PRN (Reason: pain (scale score 1-3)) Qty: 14 RF: 0 tamsulosin 0.4 mg capsule 0.4 mg PO BEDTIME Qty: 14 RF: 0 metformin 1,000 mg tablet 1,000 mg PO .COMPLEX RF: 0 pantoprazole [Protonix] [address] for susp in packet 40 mg PO DAILY RF: 0 vitamin A 8,000 unit capsule 10,000 unit PO DAILY RF: 0 tramadol 50 mg tablet 50 mg PO BID PRN (Reason: Pain) RF: 0 (DME) FreeStyle Test Strip See Rx Instructions .ROUTE .MEDSUPPLY Qty: 10 RF: 0 (DME) blood-glucose meter [FreeStyle Lite Meter] Kit See Rx Instructions .ROUTE .MEDSUPPLY Qty: 1 RF: 0 (DME) lancets [FreeStyle Lancets] 28 gauge misc See Rx Instructions .ROUTE .MEDSUPPLY Qty: 100 RF: 11 atorvastatin 40 mg tablet 40 mg PO DAILY 30 Days Qty: 30 RF: 11 lisinopril 2.5 mg tablet 2.5 mg PO DAILY 30 Days Qty: 30 RF: 11 cholecalciferol (vitamin D3) 50 mcg (2,000 unit) capsule 50 mcg PO DAILY 30 Days Qty: 30 RF: 11 cholecalciferol (vitamin D3) 1,250 mcg (50,000 unit) capsule 1,250 mcg PO QWEEK 56 Days Qty: 8 RF: 0 Referrals: Wellington Mchugh MD [Physician] - 2 days [facility] Past Medical History Medical History Anxiety Asthma Diabetes mellitus Elevated cholesterol Fatty liver GERD (gastroesophageal reflux disease) HLD (hyperlipidemia) HTN (hypertension) Migraines T2DM (type 2 diabetes mellitus) Vitamin D deficiency Surgical History H/O lithotripsy History of hysterectomy (~2011) History of local excision of skin lesion Family History Family History Father Heart disease Mother No problems noted. Social History Social History Alcohol intake: never Smoking Status: Never smoker Second Hand Smoke Exposure: No Advance Directives: No Advance Directives Information Provided: No
[2020-10-14] MEDS: Ketorolac Tromethamine 30 MG/ML VIAL IVPUSH (00:48)
[2020-10-14] MEDS: ondansetron HCL 4 MG/2 ML VIAL IVPUSH (00:59)
[2020-10-14 01:00] VITALS: BP 129/86; PULSE 88; RESP 16; O2SAT 99
[2020-10-14 02:16] VITALS: RESP 16
[2020-10-14] MEDS: Tamsulosin HCL 0.4 MG CAPSULE PO (02:16)
[2020-10-14] MEDS: HYDROmorphone HCl 1 MG/ML SYRINGE IVPUSH (02:16)
[2020-10-14 02:17] VITALS: BP 129/76; PULSE 90; RESP 16; O2SAT 98
== END 2020-10-14 02:34 | disposition home or self-care (01) ==
PROVIDERS: Emergency Provider Emergency Medicine
DX: N13.2 Hydronephrosis with renal and ureteral calculous obstruction (principal); Z98.890 Other specified postprocedural states; I10 Essential (primary) hypertension; E11.9 Type 2 diabetes mellitus without complications; E78.00 Pure hypercholesterolemia, unspecified; K21.9 Gastro-esophageal reflux disease without esophagitis; K76.0 Fatty (change of) liver, not elsewhere classified; Z79.84 Long term (current) use of oral hypoglycemic drugs; Z79.899 Other long term (current) drug therapy
CPT/HCPCS: 36415; 74176; 80053; 81001; 85025; 96374; 96375; 99284; J1170; J1885; J2405

== ENCOUNTER → 2020-10-16 09:59 | Outpatient (BNVA) | payer MEDICAID, SELFPAY | PROVIDERS: PCP Family Medicine; Visit Provider Surgery | DX: N20.0 Calculus of kidney (principal); L98.9 Disorder of the skin and subcutaneous tissue, unspecified | CPT/HCPCS: 99212 ==

== ENCOUNTER 2020-11-01 10:58 | Outpatient (REF) | payer MEDICAID, SELFPAY | END 2020-11-01 10:59 | disposition home or self-care (01) | LOC: HO.LAB 10:58 | PROVIDERS: PCP Family Medicine; Visit Provider Surgery | DX: L72.0 Epidermal cyst (principal); E11.9 Type 2 diabetes mellitus without complications; I10 Essential (primary) hypertension; E78.00 Pure hypercholesterolemia, unspecified; E78.5 Hyperlipidemia, unspecified; E55.9 Vitamin D deficiency, unspecified; K21.9 Gastro-esophageal reflux disease without esophagitis; K76.0 Fatty (change of) liver, not elsewhere classified; Z88.5 Allergy status to narcotic agent; Z91.013 Allergy to seafood; Z88.8 Allergy status to other drugs, medicaments and biological substances; Z91.018 Allergy to other foods; Z90.710 Acquired absence of both cervix and uterus | CPT/HCPCS: 11401; 88304; 88305 ==

== ENCOUNTER → 2020-11-11 13:57 | Outpatient (BNVA) | payer MEDICAID, SELFPAY | PROVIDERS: PCP Family Medicine; Visit Provider Physician Assistant | DX: M75.41 Impingement syndrome of right shoulder (principal) | CPT/HCPCS: 20610; 99212; J1040 ==

== ENCOUNTER → 2020-11-12 10:57 | Outpatient (BNVA) | payer MEDICAID, SELFPAY | PROVIDERS: PCP Family Medicine; Visit Provider Surgery | DX: D23.9 Other benign neoplasm of skin, unspecified (principal) | CPT/HCPCS: 99212 ==

== ENCOUNTER 2020-11-14 13:44 | Outpatient (REF) | payer MEDICAID, SELFPAY ==
--- NOTE | ~2020-11-14 | US_ITS ---
EXAMINATION: US RETROPERITONEAL LIMITED (RENAL ONLY) CLINICAL INFORMATION: Calculus of kidney. COMPARISON: CT abdomen and pelvis 10/14/2020. X-ray abdomen KUB 10/09/2020. Ultrasound abdomen complete 08/28/2020 and 10/19/2018. TECHNIQUE: Real-time imaging of the kidneys. FINDINGS: RIGHT KIDNEY: 10.7 x 5.0 x 4.7 cm (SAG x AP x TRV). The kidney is normal in size, contour, and echogenicity. Renal cortical thickness is normal. No calculi or focal parenchymal lesions. No hydronephrosis. LEFT KIDNEY: 10.8 x 5.0 x 4.7 cm (SAG x AP x TRV). The kidney is normal in size, contour, and echogenicity. Renal cortical thickness is normal. No calculi or focal parenchymal lesions. No hydronephrosis. US/US renal BI IMPRESSION: Unremarkable renal ultrasound.
== END 2020-11-14 13:45 | disposition home or self-care (01) ==
LOC: HO.US 13:44
PROVIDERS: Visit Provider Emergency Medicine
DX: N20.0 Calculus of kidney (principal)
CPT/HCPCS: 76775

== ENCOUNTER → 2020-11-25 09:19 | Outpatient (BNVA) | payer MEDICAID, SELFPAY | PROVIDERS: PCP Family Medicine; Visit Provider Dietitian, Registered | DX: E11.65 Type 2 diabetes mellitus with hyperglycemia (principal) | CPT/HCPCS: 97803 ==

== ENCOUNTER → 2020-11-27 09:05 | Outpatient (BNVA) | payer MEDICAID, SELFPAY | PROVIDERS: PCP Internal Medicine; Visit Provider Internal Medicine ==

== ENCOUNTER 2020-11-27 12:00 | Outpatient (RCR) | payer MEDICAID, SELFPAY ==
--- NOTE | 2020-10-16 13:54 | MHC.PT.EP ---
[facility] [place] Office [place] Office [place] Office [address] Luke Redmond [address] [phone] F: [phone] F: [phone] F: [phone] F: [phone] Physical Therapy Plan of Care Date of Evaluation: 10/16/20 Date of Surgery: None Diagnosis: Strain of unspecified muscle, fascia, and tendon at shoulder level, right arm; RTC strain Assessment: Pt is a 39 y/o right hand dominant F with chief complaint of (R) shoulder pain that began following fall on Sep 30 resulting in difficulty with overhead reaching, grooming, sleeping, and bathing. Pt presents today with point tenderness of supraspinatus and AC joint, limited and painful (R) shoulder ROM, strength deficits, postural abnormalities, and (+) special testing for impingement. Pt symptoms are consistent with RTC strain as a result of fall limited overhead movement and lifting. Pt will benefit from skilled PT 2x/week for 6 weeks to improve ROM, strength, and postural abnormalities to aid in overhead movement, lifting, bathing and ADLs. Frequency and Duration: The patient will be seen 2x/week for 6 weeks Short Term Goals: 3 Weeks: 1)Pt will be independent in HEP to maintain gains between sessions 2)Pt pain will decrease 50% to aid in performing ADL 3)Pt will self identify and correct posture to aid in pain reduction Detention Goals: 6 Weeks: 1)Pt shoulder flexion will be >150 degrees to aid in bathing 2)Pt shoulder strength will be 4/5 to aid in overhead movement. 3)Pt will be able to wash hair without increase in pain Treatment Plan: Modalities to reduce pain, spasms and effusion. Manual therapy to restore motion and function. Therapeutic exercise to improve strength and flexibility. Neuromuscular re-education for posture and balance. Therapeutic activities to return to functional activities of daily living. Electronically signed by: Ashley Godwin PT Please sign and return to therapist. Thank you for your referral.
--- NOTE | 2020-11-27 12:53 | MHC.PT.DC ---
[facility] [place] Office [place] Office [place] Office [address] Luke Redmond [address] [phone] F: [phone] F: [phone] F: [phone] F: [phone] Physical Therapy Discharge Report Diagnosis: Strain of unspecified muscle, fascia, and tendon at shoulder level, right arm; RTC strain Date of Surgery: DOI 2020 Date of Evaluation: 10/16/20 Date of Discharge: 11/27/20 Treatments to Date: 8 Cancellations to Date: 5 No Shows to Date: 0 Discharge Status: Patient Elected to Stop Discharge Summary: Pt reports pain is mainly the same. SHe is not compliant with HEP and discussed importance with HEP to achieve goals. She also has poor attendance making HEP even more important. She needs moderate cues for exercise technique to decrease trunk rotation with standing rows/ER/IR. She will f/u with MD regarding continued pain. Pt also to be d/c from PT per request due to minimal change with PT. Electronically signed by: Ashley hua PT Please sign and return to therapist. Thank you for your referral.
== END 2020-11-27 12:54 | disposition home or self-care (01) ==
LOC: HO.PT 12:00
PROVIDERS: PCP Internal Medicine; Visit Provider Physician Assistant
DX: S46.911D Strain of unspecified muscle, fascia and tendon at shoulder and upper arm level, right arm, subsequent encounter (principal); S46.011D Strain of muscle(s) and tendon(s) of the rotator cuff of right shoulder, subsequent encounter
CPT/HCPCS: 97110; 97140; 97161

== ENCOUNTER 2020-11-28 17:10 | Emergency (ER) | payer MEDICAID, SELFPAY ==
--- NOTE | ~2020-11-28 | XR_ITS ---
HARMAN EDUARDO,, accession# [id number] EXAMINATION: LEFT HAND CLINICAL INFORMATION: Injury/trauma COMPARISON: None TECHNIQUE: 3 views of the left hand obtained FINDINGS: Bones are normal anatomic alignment with no acute fracture or dislocation seen. No significant bony degenerative or destructive changes. Soft tissue unremarkable. XR/XR hand LT min 3V IMPRESSION: No acute bony abnormality.
--- NOTE | 2020-11-28 19:57 | ED.EXTPRO ---
HPI - Extremity Problem General Chief complaint: Extremity Injury, Upper Stated complaint: Finger injury Time Seen by Provider: 11/28/20 19:57 Source: patient and freelance interpreter/translator Mode of arrival: ambulatory Limitations: no limitations History of Present Illness HPI Narrative: 39-year-old female came in for evaluation of injury of her left hand. Patient stated that her left hand got jammed in the daughter last night. Complaining of left 4th and 5th finger pain. No deformity. Related Data Home Medications Medication Instructions Recorded Confirmed metformin 1,000 mg tablet 1,000 mg PO .COMPLEX tab 06/27/20 11/27/20 blood sugar diagnostic #10 ea 07/04/20 11/27/20 pantoprazole 40 mg granules 40 mg PO DAILY 07/04/20 11/27/20 delayed-release for susp in packet vitamin A 2,400 mcg capsule 10,000 unit PO DAILY cap 07/04/20 11/27/20 albuterol sulfate 2 puff INHALATION Q4-6H PRN 10/01/20 11/27/20 Previous Rx's Medication Instructions Recorded blood-glucose meter #1 ea 07/07/20 blood sugar diagnostic #100 ea 07/08/20 lancets 28 gauge #100 ea 07/08/20 atorvastatin 40 mg tablet 40 mg PO DAILY 30 Days #30 tab 08/22/20 cholecalciferol (vitamin D3) 1,250 1,250 mcg PO QWEEK 56 Days #8 cap 08/22/20 mcg (50,000 unit) capsule cholecalciferol (vitamin D3) 50 50 mcg PO DAILY 30 Days #30 cap 08/22/20 mcg (2,000 unit) capsule lisinopril 2.5 mg tablet 2.5 mg PO DAILY 30 Days #30 tab 08/22/20 pen needle, diabetic 32 gauge x #50 ea 09/26/20 1/4 cyclobenzaprine 10 mg PO TID PRN #14 tab 09/30/20 dulaglutide 0.75 mg/0.5 mL 0.75 mg SUBCUT QWEEK 30 Days #2.5 10/03/20 subcutaneous pen injector ml tamsulosin 0.4 mg PO BEDTIME #14 cap 10/09/20 tramadol 50 mg PO Q6H PRN #14 tab 10/09/20 ketorolac 10 mg PO TID 5 Days #15 tab 10/14/20 pyridoxine (vitamin B6) 100 mg 100 mg PO DAILY 90 Days #90 tab 10/16/20 tablet Allergies Allergy/AdvReac Type Severity Reaction Status Date / Time morphine [MORPHINE] Allergy Intermediate DIAPHORESIS; Verified 11/27/20 09:59 TACHYCARDIA, palpitations, sweating, tingling of hands and face quetiapine [From SEROQUEL] Allergy Intermediate PALPITATION Verified 11/27/20 09:59 S trazodone [TRAZODONE] Allergy Intermediate GI Upset, Verified 11/27/20 09:59 HEART RACING, palpitations pineapple Allergy Mild unkno Verified 11/27/20 09:59 diphenhydramine Allergy Unknown HALLUCINATI Verified 11/27/20 09:59 [From BENADRYL] ONS prednisone [PREDNISONE] Allergy Unknown HEART RACES Verified 11/27/20 09:59 Seafood Allergy Unknown redness Uncoded 11/27/20 09:59 and itching Review of Systems Review of Systems: All other systems are reviewed and are negative Constitutional: Reports as per HPI and Reports no additional constitutional complaints Eyes: Reports as per HPI and Reports no additional eye complaints Reports system reviewed and no additional complaints, except as documented Cardiovascular: Reports as per HPI and Reports no additional cardiovascular complaints Respiratory: Reports as per HPI and Reports no additional respiratory complaints Gastrointestinal: Reports as per HPI and Reports no additional gastrointestinal complaints Genitourinary: Reports no additional female genitourinary complaints Musculoskeletal: Reports no additional musculoskeletal complaints Skin/Breast: Reports system reviewed and no additional complaints, except as docu Psychiatric: Reports no additional psychiatric complaints Endocrine: Reports no additional endocrine complaints Hematologic/Lymphatic: Reports no additional hematologic/lymphatic complaints Allergic/Immunologic: Reports no additional allergic/immunologic complaints Reports system reviewed and no additional complaints, except as documented and Reports Abnormal speech present [facility] Past Medical History Medical History Anxiety Asthma Diabetes mellitus Elevated cholesterol Fatty liver GERD (gastroesophageal reflux disease) HLD (hyperlipidemia) HTN (hypertension) Migraines T2DM (type 2 diabetes mellitus) Vitamin D deficiency Surgical History H/O lithotripsy History of hysterectomy (~2011) History of local excision of skin lesion Family History Family History Father Heart disease Mother No problems noted. Social History Social History Alcohol intake: never Smoking Status: Never smoker Second Hand Smoke Exposure: No Advance Directives: No Advance Directives Information Provided: Yes Physical Exam Vital Signs: Vital Signs: Vital signs have been reviewed as appeared to be correct. Blood pressure normal. Heart rate normal. Respiration rate normal. Temperature normal. Oxygen saturation normal. Appearance: Alert. Oriented X3. No acute distress. Head: Normal external exam. Normocephalic. Atraumatic. No Jackson signs noted. No raccoon eyes noted Eyes: PERRLA. EOMI. Conjunctiva and sclera normal. Eyelids normal. ENT: TM's Normal. Pharynx normal. Uvula midline. Moist mucous membranes. No trismus noted. No drooling noted. No muffled voice noted. Neck: Normal inspection. Neck supple. FROM. No adenopathy. Thyroid Normal. No meningeal signs. No neck mass noted. CVS: Normal heart rate and rhythm. Heart sound normal. No murmurs noted. Pulses normal throughout. Respiratory: No respiratory distress. Painless inspiration. Breath sounds normal. No wheezes/rales/rhonchi noted. Chest nontender. No accessory muscle usage noted or decreased air movement noted. Abdomen: Soft and nontender. Bowel sounds normal in all 4 quadrants. No distention noted. No organomegaly noted. No visible injury noted. Back: No CVA tenderness. Full range of motion noted. Skin: Skin warm and dry. Normal skin color. Normal skin turgor. No rashes/lesions/lacerations noted. Extremities: No lower extremity edema. Extremities exhibit normal range of motion. Extremities nontender. Neuro: Oriented X 3. No motor deficit. No sensory deficit. Reflexes normal. Course Course Course Narrative: Assessment and plan. Left hand contusion. Ice/NSAIDs. MDM - Extremity (Nontraumatic) Imaging Data Left hand x-ray: Radiologist's impression: No acute fracture. Discharge Plan Discharge Clinical Impression: Contusion of hand Patient Disposition: Home, Self-Care Instructions: Contusion in Adults (ED) Prescriptions: No Action (DME) Blood Glucose Test Strip See Rx Instructions .ROUTE .MEDSUPPLY Qty: 100 RF: 11 (DME) pen needle, diabetic [BD Ultra-Fine Micro Pen Needle] 32 gauge x 1/4 needle See Rx Instructions .ROUTE .MEDSUPPLY Qty: 50 RF: 11 Trulicity 0.75 mg/0.5 mL pen injector 0.75 mg subcut QWEEK 30 Days Qty: 2.5 RF: 11 cyclobenzaprine 10 mg tablet 10 mg PO TID PRN (Reason: muscle spasm) Qty: 14 RF: 0 ketorolac 10 mg tablet 10 mg PO TID 5 Days Qty: 15 RF: 0 albuterol sulfate 90 mcg/actuation Hfa Aerosol Inhaler 2 puff INHALATION Q4-6H PRN (Reason: Shortness Of Breath) RF: 0 tramadol 50 mg tablet 50 mg PO Q6H PRN (Reason: pain (scale score 1-3)) Qty: 14 RF: 0 tamsulosin 0.4 mg capsule 0.4 mg PO BEDTIME Qty: 14 RF: 0 metformin 1,000 mg tablet 1,000 mg PO .COMPLEX RF: 0 pantoprazole [Protonix] [address] for susp in packet 40 mg PO DAILY RF: 0 vitamin A 8,000 unit capsule 10,000 unit PO DAILY RF: 0 (DME) FreeStyle Test Strip See Rx Instructions .ROUTE .MEDSUPPLY Qty: 10 RF: 0 (DME) blood-glucose meter [FreeStyle Lite Meter] Kit See Rx Instructions .ROUTE .MEDSUPPLY Qty: 1 RF: 0 (DME) lancets [FreeStyle Lancets] 28 gauge misc See Rx Instructions .ROUTE .MEDSUPPLY Qty: 100 RF: 11 atorvastatin 40 mg tablet 40 mg PO DAILY 30 Days Qty: 30 RF: 11 lisinopril 2.5 mg tablet 2.5 mg PO DAILY 30 Days Qty: 30 RF: 11 cholecalciferol (vitamin D3) 50 mcg (2,000 unit) capsule 50 mcg PO DAILY 30 Days Qty: 30 RF: 11 cholecalciferol (vitamin D3) 1,250 mcg (50,000 unit) capsule 1,250 mcg PO QWEEK 56 Days Qty: 8 RF: 0 pyridoxine (vitamin B6) 100 mg tablet 100 mg PO DAILY 90 Days Qty: 90 RF: 1 Referrals: Jaquelin Rivera MD [Primary Care Provider] - 2 days
[2020-11-28 20:36] VITALS: BP 132/76; PULSE 83; RESP 16; TEMP 36.6; O2SAT 99; BMI 38.7
== END 2020-11-28 21:47 | disposition home or self-care (01) ==
PROVIDERS: Emergency Provider Emergency Medicine; PCP Internal Medicine
DX: S60.042A Contusion of left ring finger without damage to nail, initial encounter (principal); S60.052A Contusion of left little finger without damage to nail, initial encounter; X50.1XXA Overexertion from prolonged static or awkward postures, initial encounter; E11.9 Type 2 diabetes mellitus without complications; I10 Essential (primary) hypertension; K21.9 Gastro-esophageal reflux disease without esophagitis; Y93.83 Activity, rough housing and horseplay; Y92.019 Unspecified place in single-family (private) house as the place of occurrence of the external cause; Y99.9 Unspecified external cause status
CPT/HCPCS: 73130; 99283

== ENCOUNTER 2020-12-12 10:00 | Outpatient (REF) | payer MEDICAID, SELFPAY ==
[2020-12-12 13:08] LABS: Estimated Average Glucose 137 mg/dL; Hemoglobin A1C 149.9362 umol/L; Hemoglobin A1c % 6.4 %
[2020-12-12 13:50] LABS: Alanine Aminotransferase 34 U/L (0-31); Albumin Level 4.2 g/dL (3.5-5.0); Alkaline Phosphatase 115 U/L (39-117); Anion Gap 14 (12-20); Aspartate Amino Transferase 30 U/L (5-31); Bilirubin Total 0.5 mg/dL (0.0-1.0); Blood Urea Nitrogen 11 mg/dL (9-16); Calcium 9.3 mg/dL (8.4-10.2); Carbon Dioxide 24 mmol/L (22-29); Chloride 107 mmol/L (96-108); Cholesterol 150 mg/dL; Estimated Glomerular Filt Rate > 60; Glucose Random 111 mg/dL (60-115); HDL Cholesterol 41 mg/dL; LDL Cholesterol Calculated 84 mg/dl; Potassium 4.3 mmol/L (3.3-5.1); Sodium 141 mmol/L (135-145); Total Protein 7.4 g/dL (6.5-8.0); Triglycerides 125 mg/dL
[2020-12-12 13:53] LABS: Creatinine Urine 247.06 mg/dL; Microalbum/Creatinine Ratio Ur 9.3 ug/mg cr
[2020-12-12 14:06] LABS: Vitamin D 25-OH Total 32.2 ng/mL (>30)
[2020-12-13 05:16] LABS: LDL Cholesterol Direct 87 mg/dL (<100)
== END 2020-12-12 10:01 | disposition home or self-care (01) ==
LOC: HO.LAB 10:00
PROVIDERS: Absent Provider Internal Medicine; PCP Internal Medicine; Visit Provider Physician Assistant
DX: M75.41 Impingement syndrome of right shoulder (principal); M79.18 Myalgia, other site; E11.65 Type 2 diabetes mellitus with hyperglycemia; E55.9 Vitamin D deficiency, unspecified
CPT/HCPCS: 36415; 80053; 80061; 82043; 82306; 83036; 83721; 99212

== ENCOUNTER → 2020-12-19 08:44 | Outpatient (BNVA) | payer MEDICAID, SELFPAY | PROVIDERS: PCP Family Medicine; Visit Provider Urology ==

== ENCOUNTER → 2021-01-06 11:20 | Outpatient (BNVA) | payer MEDICAID, SELFPAY | PROVIDERS: PCP Internal Medicine; Visit Provider Dietitian, Registered | DX: E11.65 Type 2 diabetes mellitus with hyperglycemia (principal) | CPT/HCPCS: 97803 ==

== ENCOUNTER 2021-01-29 11:58 | Outpatient (REF) | payer MEDICAID, SELFPAY ==
[2021-01-29 13:39] LABS: Amphetamine Screen Urine Not Detected (Not Detect); Barbiturates, Urine Not Detected (Not Detect); Benzodiazepines Screen Urine Not Detected (Not Detect); Cannabinoid Screen Urine Not Detected (Not Detect); Cocaine Screen Urine Not Detected (Not Detect); Opiate Screen Urine Not Detected (Not Detect); Phencyclidine Screen Urine Not Detected (Not Detect)
== END 2021-01-29 11:59 | disposition home or self-care (01) ==
LOC: HO.LAB 11:58
PROVIDERS: PCP Internal Medicine; Visit Provider Internal Medicine
DX: M54.6 Pain in thoracic spine (principal)
CPT/HCPCS: 80307

== ENCOUNTER → 2021-02-03 12:57 | Outpatient (BNVA) | payer MEDICAID, SELFPAY | PROVIDERS: PCP Internal Medicine; Visit Provider Physician Assistant | DX: M75.41 Impingement syndrome of right shoulder (principal) | CPT/HCPCS: 99212 ==

== ENCOUNTER 2021-02-18 12:57 | Outpatient (REF) | payer MEDICAID, SELFPAY ==
--- NOTE | ~2021-02-18 | US_ITS ---
EXAMINATION: US RETROPERITONEAL LIMITED (RENAL ONLY) CLINICAL INFORMATION: Calculus of kidney. COMPARISON: Ultrasound renal 11/14/2020. Ultrasound abdomen complete 08/28/2020. CT abdomen 10/14/2020. X-ray KUB 10/09/2020. TECHNIQUE: Real-time imaging of the kidneys. FINDINGS: RIGHT KIDNEY: 11.0 x 5.1 x 4.9 cm (SAG x AP x TRV). The kidney is normal in size, contour, and echogenicity. Renal cortical thickness is normal. No calculi or focal parenchymal lesions. No hydronephrosis. LEFT KIDNEY: 10.5 x 4.7 x 4.7 cm (SAG x AP x TRV). The kidney is normal in size, contour, and echogenicity. Renal cortical thickness is normal. No calculi or focal parenchymal lesions. No hydronephrosis. US/US renal BI IMPRESSION: Unremarkable renal ultrasound.
== END 2021-02-18 12:58 | disposition home or self-care (01) ==
LOC: HO.US 12:57
PROVIDERS: Visit Provider Emergency Medicine
DX: R10.9 Unspecified abdominal pain (principal); N20.0 Calculus of kidney; Z87.442 Personal history of urinary calculi
CPT/HCPCS: 76775

== ENCOUNTER 2021-02-23 15:31 | Emergency (ER) | payer MEDICAID, SELFPAY ==
--- NOTE | ~2021-02-23 | CT_ITS ---
EXAMINATION: CT ABDOMEN AND PELVIS WITHOUT CONTRAST CLINICAL INFORMATION: Right flank pain. Rule out colic. COMPARISON: CT abdomen 10/14/2020 TECHNIQUE: Multidetector volumetric imaging was performed from the superior aspect of the liver through the pubic symphysis. Sagittal and coronal reformatted images were obtained on the technologist's workstation. This CT examination was performed using dose optimization techniques as appropriate, variously including the following: *Automated exposure control *Adjustment of mA and/or kV according to patient size (this includes techniques or standardized protocols for targeted exams where dose is matched to indication/reason for exam; i.e. extremities or head) *Use of iterative reconstruction technique DLP: 659 mGy-cm FINDINGS: LUNG BASES: The visualized lung bases are unremarkable. LIVER, GALLBLADDER, AND BILIARY TREE: Hepatic steatosis. No focal lesion or biliary duct dilatation. The gallbladder is unremarkable with no evidence of radiopaque gallstones, gallbladder wall thickening, or obvious pericholecystic inflammatory changes. PANCREAS: Unremarkable. SPLEEN: Unremarkable. ADRENAL GLANDS: Unremarkable. KIDNEYS AND URETERS: The kidneys are normal in size, shape, and attenuation. Mild right hydroureteronephrosis. There is a 3 mm calculus in the distal right ureter just proximal to the ureterovesical junction. The previously seen right renal calculi are not clearly visualized in today's study. No left renal calculi. No left hydroureteronephrosis. BLADDER: Underdistended, unremarkable. GASTROINTESTINAL TRACT: No obstruction. No acute inflammatory changes seen. Stomach appears unremarkable. The appendix is unremarkable. No free fluid or free air. ABDOMINAL WALL: No significant hernia is appreciated. LYMPH NODES: No enlarged lymph nodes are seen. VASCULAR: Normal caliber aorta. PELVIC VISCERA: Uterus is not seen. No adnexal masses seen. OSSEOUS STRUCTURES: No acute or suspicious osseous abnormality. CT/CT abdomen pelvis wo con IMPRESSION: 1. Mild right hydroureteronephrosis, with a 3 mm calculus in the distal right ureter. Previously seen nonobstructing right renal calculi are not clearly evident in today's study. 2. Hepatic steatosis.
[2021-02-23 15:42] VITALS: BP 137/85; PULSE 93; RESP 16; TEMP 37.5; O2SAT 97; BMI 39.8
--- NOTE | 2021-02-23 15:57 | ED.ABDPAIN ---
HPI - Abdominal Pain General Chief Complaint: Abdominal Pain Stated Complaint: Flank pain Time Seen by Provider: 02/23/21 15:45 Source: patient Mode of arrival: ambulatory Limitations: no limitations History of Present Illness HPI narrative: 40-year-old female with a past medical history of diabetes, hypertension, hyperlipidemia here with complaints of right flank pain since last evening with radiation to the right lower abdomen. Worsened with urination. No fevers, chills, nausea, vomiting. History of renal with lithotripsy by Dr. Garsia 10/09/20. Related Data Home Medications Medication Instructions Recorded Confirmed metformin 1,000 mg tablet 1,000 mg PO .COMPLEX tab 06/27/20 11/27/20 blood sugar diagnostic #10 ea 07/04/20 11/27/20 pantoprazole 40 mg granules 40 mg PO DAILY 07/04/20 11/27/20 delayed-release for susp in packet vitamin A 2,400 mcg capsule 10,000 unit PO DAILY cap 07/04/20 11/27/20 albuterol sulfate 2 puff INHALATION Q4-6H PRN 10/01/20 11/27/20 Previous Rx's Medication Instructions Recorded blood-glucose meter #1 ea 07/07/20 blood sugar diagnostic #100 ea 07/08/20 lancets 28 gauge #100 ea 07/08/20 atorvastatin 40 mg tablet 40 mg PO DAILY 30 Days #30 tab 08/22/20 cholecalciferol (vitamin D3) 1,250 1,250 mcg PO QWEEK 56 Days #8 cap 08/22/20 mcg (50,000 unit) capsule cholecalciferol (vitamin D3) 50 50 mcg PO DAILY 30 Days #30 cap 08/22/20 mcg (2,000 unit) capsule lisinopril 2.5 mg tablet 2.5 mg PO DAILY 30 Days #30 tab 08/22/20 pen needle, diabetic 32 gauge x #50 ea 09/26/20 1/4 cyclobenzaprine 10 mg PO TID PRN #14 tab 09/30/20 dulaglutide 0.75 mg/0.5 mL 0.75 mg SUBCUT QWEEK 30 Days #2.5 10/03/20 subcutaneous pen injector ml tamsulosin 0.4 mg PO BEDTIME #14 cap 10/09/20 tramadol 50 mg PO Q6H PRN #14 tab 02/17/21 ketorolac 10 mg PO TID 5 Days #15 tab 10/14/20 pyridoxine (vitamin B6) 100 mg 100 mg PO DAILY 90 Days #90 tab 10/16/20 tablet ketorolac 10 mg PO Q8H PRN #10 tab 02/23/21 oxycodone 5 mg PO Q8H PRN #5 tab 02/23/21 tamsulosin [Flomax] 0.4 mg PO DAILY #20 cap 02/23/21 Allergies Allergy/AdvReac Type Severity Reaction Status Date / Time morphine [MORPHINE] Allergy Intermediate DIAPHORESIS; Verified 12/19/20 08:46 TACHYCARDIA, palpitations, sweating, tingling of hands and face quetiapine [From SEROQUEL] Allergy Intermediate PALPITATION Verified 12/19/20 08:46 S trazodone [TRAZODONE] Allergy Intermediate GI Upset, Verified 12/19/20 08:46 HEART RACING, palpitations pineapple Allergy Mild unkno Verified 12/19/20 08:46 diphenhydramine Allergy Unknown HALLUCINATI Verified 12/19/20 08:46 [From BENADRYL] ONS prednisone [PREDNISONE] Allergy Unknown HEART RACES Verified 12/19/20 08:46 Seafood Allergy Unknown redness Uncoded 11/27/20 09:59 and itching Review of Systems Review of Systems Yes all other systems are reviewed and are negative Constitutional: Reports no additional constitutional complaints, Denies body ache(s), Denies chills, Denies fever(s), Denies headache(s) and Denies weakness Eyes: Reports no additional eye complaints and Denies change in vision Reports system reviewed and no additional complaints, except as documented, Denies dizziness, Denies headache(s), Denies nasal congestion, Denies nasal discharge and Denies neck pain Cardiovascular: Reports no additional cardiovascular complaints, Denies chest pain, Denies leg edema and Denies dyspnea Respiratory: Reports no additional respiratory complaints, Denies cough and Denies dyspnea Gastrointestinal: Reports no additional gastrointestinal complaints, Denies abdominal pain, Denies diarrhea, Denies nausea and Denies vomiting Genitourinary: Reports no additional female genitourinary complaints and Denies urinary incontinence Musculoskeletal: Reports no additional musculoskeletal complaints, Reports back pain, Denies arthralgias, Denies joint swelling, Denies neck pain, Denies numbness and Denies tingling Skin/Breast: Reports system reviewed and no additional complaints, except as docu and Denies rash Reports system reviewed and no additional complaints, except as documented, Denies Abnormal speech present, Denies dizziness, Denies headache(s), Denies numbness, Denies tingling and Denies weakness Physical Exam Vital Signs: Vital Signs: Last Vital Signs Temp 98.9 F 02/23/21 17:50 Pulse 81 02/23/21 17:50 Resp 16 02/23/21 17:50 BP 137/76 02/23/21 17:50 Pulse Ox 98 02/23/21 17:50 Body Mass Index 39.8 Const: General: cooperative, healthy appearing, comfortable and no acute distress Orientation/consciousness: patient oriented x3 Limitations: no limitations HENMT: Head: Yes normal to inspection Ears: hearing grossly normal bilaterally General nose exam: Normal external nose present Face and sinus: Yes normal facial exam Mouth: Normal oral and palatal mucosa present Throat: Yes posterior oropharynx normal Eyes: General: appearance normal, both eyes and all related structures Pupils: Equal, round and reactive pupils present Neck: Neck: Yes normal visual inspection Chest: Chest palpation & inspection: normal inspection of the chest Resp: Effort & Inspection: normal respiratory effort Auscultation: clear to auscultation bilaterally Cardio: Rate: regular rate Rhythm: regular rhythm Peripheral pulses: Peripheral pulses 2+ throughout GI: Inspection: Yes normal to inspection Palpation (GI): Soft to palpation and nontender Auscultation: normal bowel sounds : General: Yes CVA tenderness (mod) Back/Spine/Pelvis: Back: CVA tenderness (mod) Thoracic/Lumbar Spine: thoracic and lumbar spine normal to inspection Skin: General skin exam: no rashes or lesions noted Neuro: General: patient oriented x3, no focal motor deficits and normal sensation to monofilament Cranial nerves: Yes Equal, round and reactive pupils present Cognition (Neuro): normal cognition Speech: No Abnormal speech present Gait exam (Neuro): Normal gait present Motor exam (neuro): 5/5 motor strength present throughout Extrem: General: Yes normal to inspection, Yes no pedal edema and Yes no calf tenderness Course Course Course Narrative: 40-year-old female here with complaints of right flank pain with radiation to the right lower abdomen with associated dysuria since last night. History of renal colic and feel similar. Exam she has moderate right CVA tenderness. Will need UA, labs, CTA/P, analgesia. 1740- 1. Mild right hydroureteronephrosis, with a 3 mm calculus in the distal right ureter. Previously seen nonobstructing right renal calculi are not clearly evident in today's study labs are unremarkable. UA is contaminated. Will follow with culture. Patient is feeling improved and is tolerating p.o. after a dose of Toradol through the IV. Recommend follow-up with her urologist. Reviewed worrisome signs and symptoms of when to return to the emergency department. Comfortable discharge home. MDM - Abdominal Pain MDM Narrative Medical decision making narrative: pyelo, uti Differential Diagnosis Differential diagnosis: Likely acute appendicitis and calculus of kidney Medical Records Attestation: I reviewed the patient's medical records. Lab Data Attestation: I reviewed the patient's lab results. Result diagrams: 02/23/21 16:27 02/23/21 16:27 Labs: Lab Results 02/23/21 02/23/21 Range/Units 16:27 16:27 WBC 10.0 (4.8-10.8) X10*3/uL RBC 4.46 (4.20-5.50) X10*6/uL Hgb 12.3 (12.0-16.0) g/dl Hct 37.4 (37-47) % MCV 83.9 (80-98) fL MCH 27.6 (27.0-33.0) pg MCHC 32.9 (31.0-35.0) g/dl RDW 13.1 (11.0-16.0) % Plt Count 242 D (160-400) X10*3/uL MPV 10.3 (9.4-12.3) fL Immature Gran % (Auto) 0.3 (0.0-0.4) % Neut % (Auto) 66.0 (45-73) % Lymph % (Auto) 25.7 (20-40) % [place] % (Auto) 5.9 (2-11) % Eos % (Auto) 1.9 (0-4) % Baso % (Auto) 0.2 (0-2) % Lymph # (Auto) 2.6 (1.2-4.9) X10*3/uL [place] # (Auto) 0.6 (0.1-1.2) X10*3/uL Eos # (Auto) 0.2 (0.0-0.4) X10*3/uL Baso # (Auto) 0.0 (0.0-0.2) X10*3/uL Abs Immat Gran (auto) 0.03 (0.00-0.03) X10*3/uL Absolute Neuts (auto) 6.6 (2.0-8.3) X10*3/uL Absolute Nucleated RBC 0.000 (0.0-0.012) X10*3/uL Nucleated RBC % (auto) 0.0 (0.0-0.2) /100WBC Sodium 141 (135-145) mmol/L Potassium 3.9 (3.3-5.1) mmol/L Chloride 106 (96-108) mmol/L Carbon Dioxide 22 (22-29) mmol/L Anion Gap 17 (12-20) BUN 9 (9-16) mg/dL Creatinine 0.84 (0.5-1.4) mg/dL Estim Creat Clear Calc 89.4 Estimated GFR > 60 Random Glucose 99 (60-115) mg/dL Calcium 9.8 (8.4-10.2) mg/dL Total Bilirubin 0.8 (0.0-1.0) mg/dL Direct Bilirubin 0.3 (0.0-0.5) mg/dL AST 79 H (5-31) U/L ALT 77 H (0-31) U/L Alkaline Phosphatase 111 (39-117) U/L Total Protein 7.6 (6.5-8.0) g/dL Albumin 4.3 (3.5-5.0) g/dL Imaging Data CT scan - abdomen: Attestation: I personally reviewed and interpreted this imaging study as follows: Radiologist's impression: 1. Mild right hydroureteronephrosis, with a 3 mm calculus in the distal right ureter. Previously seen nonobstructing right renal calculi are not clearly evident in today's study Discharge Plan Discharge Clinical Impression: Nephrolithiasis Patient Disposition: Home, Self-Care Instructions: Renal Colic (ED) Additional Instructions: Increase fluids, rest call dr garsia for follow-up Prescriptions: New ketorolac 10 mg tablet 10 mg PO Q8H PRN (Reason: pain) Qty: 10 RF: 0 tamsulosin [Flomax] 0.4 mg capsule 0.4 mg PO DAILY Qty: 20 RF: 0 oxycodone 5 mg tablet 5 mg PO Q8H PRN (Reason: pain) Qty: 5 RF: 0 No Action (DME) Blood Glucose Test Strip See Rx Instructions .ROUTE .MEDSUPPLY Qty: 100 RF: 11 (DME) pen needle, diabetic [BD Ultra-Fine Micro Pen Needle] 32 gauge x 1/4 needle See Rx Instructions .ROUTE .MEDSUPPLY Qty: 50 RF: 11 Trulicity 0.75 mg/0.5 mL pen injector 0.75 mg subcut QWEEK 30 Days Qty: 2.5 RF: 11 cyclobenzaprine 10 mg tablet 10 mg PO TID PRN (Reason: muscle spasm) Qty: 14 RF: 0 ketorolac 10 mg tablet 10 mg PO TID 5 Days Qty: 15 RF: 0 albuterol sulfate 90 mcg/actuation Hfa Aerosol Inhaler 2 puff INHALATION Q4-6H PRN (Reason: Shortness Of Breath) RF: 0 tramadol 50 mg tablet 50 mg PO Q6H PRN (Reason: pain (scale score 1-3)) Qty: 14 RF: 0 tamsulosin 0.4 mg capsule 0.4 mg PO BEDTIME Qty: 14 RF: 0 metformin 1,000 mg tablet 1,000 mg PO .COMPLEX RF: 0 pantoprazole [Protonix] [address] for susp in packet 40 mg PO DAILY RF: 0 vitamin A 8,000 unit capsule 10,000 unit PO DAILY RF: 0 (DME) FreeStyle Test Strip See Rx Instructions .ROUTE .MEDSUPPLY Qty: 10 RF: 0 (DME) blood-glucose meter [FreeStyle Lite Meter] Kit See Rx Instructions .ROUTE .MEDSUPPLY Qty: 1 RF: 0 (DME) lancets [FreeStyle Lancets] 28 gauge misc See Rx Instructions .ROUTE .MEDSUPPLY Qty: 100 RF: 11 atorvastatin 40 mg tablet 40 mg PO DAILY 30 Days Qty: 30 RF: 11 lisinopril 2.5 mg tablet 2.5 mg PO DAILY 30 Days Qty: 30 RF: 11 cholecalciferol (vitamin D3) 50 mcg (2,000 unit) capsule 50 mcg PO DAILY 30 Days Qty: 30 RF: 11 cholecalciferol (vitamin D3) 1,250 mcg (50,000 unit) capsule 1,250 mcg PO QWEEK 56 Days Qty: 8 RF: 0 pyridoxine (vitamin B6) 100 mg tablet 100 mg PO DAILY 90 Days Qty: 90 RF: 1 Referrals: Wellington Garsia MD [Physician] - 2 days Interventions: ED Discharge Assessment Last Done: 02/23/21 17:51 Discharge Date/Time: 02/23/21 17:52 Print Language: Vietnamese [facility] Past Medical History Attestation statement: The following information was validated with the patient. Source: old records reviewed and nursing notes reviewed Medical History Anxiety Asthma Diabetes mellitus Elevated cholesterol Fatty liver GERD (gastroesophageal reflux disease) HLD (hyperlipidemia) HTN (hypertension) Migraines T2DM (type 2 diabetes mellitus) Vitamin D deficiency Surgical History H/O lithotripsy History of hysterectomy (~2011) History of local excision of skin lesion Family History Family History Father Heart disease Mother No problems noted. Social History Social History Alcohol intake: never Second Hand Smoke Exposure: No Advance Directives: No Advance Directives Information Provided: No
[2021-02-23 16:30] LABS: MANUAL DIFF FLAG NO
[2021-02-23] MEDS: Ketorolac Tromethamine 30 MG/ML VIAL IVPUSH (16:30)
[2021-02-23 16:32] LABS: Basophils Percent Auto 0.2 % (0-2); Eosinophils Absolute Auto 0.2 X10*3/uL (0.0-0.4); Eosinophils Percent Auto 1.9 % (0-4); Hematocrit 37.4 % (37-47); Hemoglobin 12.3 g/dl (12.0-16.0); Imm Gran Abs Auto 0.03 X10*3/uL (0.00-0.03); Imm Gran Pct Auto 0.3 % (0.0-0.4); Lymphocytes Absolute Auto 2.6 X10*3/uL (1.2-4.9); Lymphocytes Percent Auto 25.7 % (20-40); Mean Corpuscular HGB Conc 32.9 g/dl (31.0-35.0); Mean Corpuscular Hemoglobin 27.6 pg (27.0-33.0); Mean Corpuscular Volume 83.9 fL (80-98); Mean Platelet Volume 10.3 fL (9.4-12.3); Monocytes Absolute Auto 0.6 X10*3/uL (0.1-1.2); Monocytes Percent Auto 5.9 % (2-11); Neutrophils Absolute Auto 6.6 X10*3/uL (2.0-8.3); Platelet Count 242 X10*3/uL (160-400); Red Blood Count 4.46 X10*6/uL (4.20-5.50); Red Cell Distribution Width 13.1 % (11.0-16.0)
[2021-02-23 16:55] LABS: Alanine Aminotransferase 77 U/L (0-31); Albumin Level 4.3 g/dL (3.5-5.0); Alkaline Phosphatase 111 U/L (39-117); Anion Gap 17 (12-20); Aspartate Amino Transferase 79 U/L (5-31); Bilirubin Direct 0.3 mg/dL (0.0-0.5); Bilirubin Total 0.8 mg/dL (0.0-1.0); Blood Urea Nitrogen 9 mg/dL (9-16); Calcium 9.8 mg/dL (8.4-10.2); Carbon Dioxide 22 mmol/L (22-29); Chloride 106 mmol/L (96-108); Creatinine Clr Calc Pharmacy 89.4; Estimated Glomerular Filt Rate > 60; Glucose Random 99 mg/dL (60-115); Potassium 3.9 mmol/L (3.3-5.1); Sodium 141 mmol/L (135-145); Total Protein 7.6 g/dL (6.5-8.0)
[2021-02-23 17:13] VITALS: BP 128/73; PULSE 79; RESP 18; TEMP 37.3; O2SAT 97
[2021-02-23 17:50] VITALS: BP 137/76; PULSE 81; RESP 16; TEMP 37.2; O2SAT 98
== END 2021-02-23 17:52 | disposition home or self-care (01) ==
PROVIDERS: Nurse Practitioner Family; Emergency Provider Emergency Medicine; PCP Internal Medicine
DX: N13.2 Hydronephrosis with renal and ureteral calculous obstruction (principal); R10.9 Unspecified abdominal pain; E11.9 Type 2 diabetes mellitus without complications; I10 Essential (primary) hypertension; E78.5 Hyperlipidemia, unspecified; Z79.84 Long term (current) use of oral hypoglycemic drugs; Z79.02 Long term (current) use of antithrombotics/antiplatelets; Z79.899 Other long term (current) drug therapy; Z87.442 Personal history of urinary calculi
CPT/HCPCS: 36415; 74176; 80048; 80076; 85025; 96374; 99284; J1885

== ENCOUNTER → 2021-02-26 13:48 | Outpatient (BNVA) | payer MEDICAID, SELFPAY | PROVIDERS: PCP Family Medicine; Visit Provider Internal Medicine | DX: E11.65 Type 2 diabetes mellitus with hyperglycemia (principal); E78.5 Hyperlipidemia, unspecified; E55.9 Vitamin D deficiency, unspecified; I10 Essential (primary) hypertension; R74.01 Elevation of levels of liver transaminase levels | CPT/HCPCS: 82947; 99212 ==

== ENCOUNTER → 2021-02-27 08:59 | Outpatient (BNVA) | payer MEDICAID, SELFPAY | PROVIDERS: PCP Internal Medicine; Referring Provider Internal Medicine; Visit Provider Surgery | DX: Z01.818 Encounter for other preprocedural examination (principal); D22.30 Melanocytic nevi of unspecified part of face | CPT/HCPCS: 99212 ==

== ENCOUNTER → 2021-02-28 13:52 | Outpatient (BNVA) | payer MEDICAID, SELFPAY | PROVIDERS: PCP Internal Medicine; Visit Provider Urology ==

== ENCOUNTER 2021-03-16 22:01 | Emergency (ER) | payer MEDICAID, SELFPAY ==
[2021-03-16 22:33] VITALS: BP 129/86; PULSE 100; RESP 20; TEMP 36.6; O2SAT 98; BMI 37.3
--- NOTE | 2021-03-16 23:31 | ED.ABDPAIN ---
HPI - Abdominal Pain General Chief Complaint: Abdominal Pain Stated Complaint: kidney stones Time Seen by Provider: 03/16/21 23:18 Source: patient Mode of arrival: ambulatory Limitations: no limitations History of Present Illness HPI narrative: Patient comes emergency room complaining of bilateral flank pain. Patient states it is the same pain that she has been having multiple times, patient is known to have right ureterolithiasis. Patient was seen here on February 23 for the same complaint, had a CT scan done, patient was seen by Dr. Mchugh on February 28, he recommended to have a follow-up ultrasound in 6 months. Patient denies dysuria, no abdominal pain, no fever or chills. MD elicited complaint: flank pain Related Data Home Medications Medication Instructions Recorded Confirmed blood sugar diagnostic #10 ea 07/04/20 02/26/21 pantoprazole 40 mg granules 40 mg PO DAILY 07/04/20 02/26/21 delayed-release for susp in packet vitamin A 2,400 mcg capsule 10,000 unit PO DAILY cap 07/04/20 02/26/21 albuterol sulfate 2 puff INHALATION Q4-6H PRN 10/01/20 02/27/21 Previous Rx's Medication Instructions Recorded blood-glucose meter #1 ea 07/07/20 lancets 28 gauge #100 ea 07/08/20 atorvastatin 40 mg tablet 40 mg PO DAILY 30 Days #30 tab 08/22/20 cholecalciferol (vitamin D3) 1,250 1,250 mcg PO QWEEK 56 Days #8 cap 08/22/20 mcg (50,000 unit) capsule cholecalciferol (vitamin D3) 50 50 mcg PO DAILY 30 Days #30 cap 08/22/20 mcg (2,000 unit) capsule lisinopril 2.5 mg tablet 2.5 mg PO DAILY 30 Days #30 tab 08/22/20 pen needle, diabetic 32 gauge x #50 ea 09/26/20 1/4 cyclobenzaprine 10 mg PO TID PRN #14 tab 09/30/20 dulaglutide 0.75 mg/0.5 mL 0.75 mg SUBCUT QWEEK 30 Days #2.5 10/03/20 subcutaneous pen injector ml tramadol 50 mg PO Q6H PRN #14 tab 10/09/20 pyridoxine (vitamin B6) 100 mg 100 mg PO DAILY 90 Days #90 tab 10/16/20 tablet ketorolac 10 mg PO Q8H PRN #10 tab 02/23/21 oxycodone 5 mg PO Q8H PRN #5 tab 02/23/21 tamsulosin [Flomax] 0.4 mg PO DAILY #20 cap 02/23/21 empagliflozin 25 mg tablet 25 mg PO DAILY 30 Days #30 tab 02/27/21 prednisone 20 mg tablet 20 mg PO DAILY 5 Days #5 tab 02/28/21 metformin 1,000 mg tablet 1,000 mg PO BID 30 Days #60 tab 03/12/21 ketorolac 10 mg PO TID PRN 5 Days #10 tab 03/17/21 tamsulosin 0.4 mg PO DAILY #10 cap 03/17/21 Allergies Allergy/AdvReac Type Severity Reaction Status Date / Time morphine [MORPHINE] Allergy Intermediate DIAPHORESIS; Verified 02/27/21 09:03 TACHYCARDIA, palpitations, sweating, tingling of hands and face quetiapine [From SEROQUEL] Allergy Intermediate PALPITATION Verified 02/27/21 09:03 S trazodone [TRAZODONE] Allergy Intermediate GI Upset, Verified 02/27/21 09:03 HEART RACING, palpitations pineapple Allergy Mild unkno Verified 02/27/21 09:03 diphenhydramine Allergy Unknown HALLUCINATI Verified 02/27/21 09:03 [From BENADRYL] ONS prednisone [PREDNISONE] Allergy Unknown HEART RACES Verified 02/27/21 09:03 Seafood Allergy Unknown redness Uncoded 02/27/21 09:03 and itching Review of Systems Review of Systems Constitutional : No Weight loss, No Fever, No Chills, No Night Sweats, No Fatigue, No Malaise ENT/Mouth : No Hearing loss, No Ear Pain, No Nasal Congestion, No Sinus Pain, No Hoarseness, No sore throat, No Rhinorrhea, No Swallowing Difficulty Eyes: No Eye Pain, No Swelling, No Redness, No Foreign Body, No Discharge, No Vision Changes Cardiovascular : No Chest Pain, No SOB, No Dyspnea on Exertion, No Orthopnea, No Edema, No Palpitations Respiratory : No Cough, No Sputum, No Wheezing, No Smoke Exposure, No Dyspnea Gastrointestinal : No Nausea, No Vomiting, No Diarrhea, No Constipation, No abdominal Pain, No Hematochezia, No Melena Genitourinary : no irregular bleeding, No Dysuria, No Urinary Frequency, No Hematuria, No Urinary Incontinence, No Urgency, complaining of bilateral Flank Pain, No Urinary Flow Changes, No Hesitancy Musculoskeletal : No joint pain, No Myalgias, No Joint Swelling Skin : No Skin Lesions, No rash Neuro : No Weakness, No Numbness, No Paresthesias, No Loss of Consciousness, No Dizziness, No Headache Psych : No Anxiety/Panic, No Depression, No SI/HI/AH/VH, No Social Issues, Heme/Lymph: No Bruising, No Bleeding,No Lymphadenopathy Endocrine : No Polyuria, No Polydipsia, No Temperature Intolerance Physical Exam Vital Signs: Vital Signs: Last Vital Signs Temp 97.9 F 03/16/21 22:33 Pulse 100 03/16/21 22:33 Resp 20 03/16/21 22:33 BP 129/86 03/16/21 22:33 Pulse Ox 98 03/16/21 22:33 Body Mass Index 37.3 Appearance: Alert. Oriented X3. No acute distress. Eyes: Pupils equal, round and reactive to light. ENT: Pharynx normal. Neck: Normal inspection. Neck supple. No lymph nodes noted. No crepitus CVS: Normal heart rate and rhythm. Pulses normal. Normal S1 and S2 Respiratory: No respiratory distress. Breath sounds normal. No Wheezing. No rales Abdomen: Soft and nontender on any quadrant on deep palpation. No rigidity. No distention. mild CVA bilateral Skin: Skin warm and dry. Normal skin color. Normal skin turgor. Extremities: No lower extremity edema. No lower extremity edema. No Lacerations. No Rash Neuro: Oriented X 3. No motor deficit. No sensory deficit. Moving all extermities. No slurred speech. Course Course Course Narrative: Urinalysis negative, creatinine within normal limits. Patient likely having renal colleagues. Patient has no abdominal pain. Patient states that the pain improved with a dose of Toradol. MDM - Abdominal Pain Lab Data Result diagrams: 03/17/21 00:02 03/17/21 00:02 Labs: Lab Results 03/17/21 03/17/21 03/17/21 Range/Units 00:02 00:02 00:41 WBC 11.3 H (4.8-10.8) X10*3/uL RBC 4.59 (4.20-5.50) X10*6/uL Hgb 12.5 (12.0-16.0) g/dl Hct 39.6 (37-47) % MCV 86.3 (80-98) fL MCH 27.2 (27.0-33.0) pg MCHC 31.6 (31.0-35.0) g/dl RDW 13.1 (11.0-16.0) % Plt Count 226 (160-400) X10*3/uL MPV 10.8 (9.4-12.3) fL Immature Gran % (Auto) 0.3 (0.0-0.4) % Neut % (Auto) 58.9 (45-73) % Lymph % (Auto) 33.5 (20-40) % [place] % (Auto) 5.5 (2-11) % Eos % (Auto) 1.6 (0-4) % Baso % (Auto) 0.2 (0-2) % Lymph # (Auto) 3.8 (1.2-4.9) X10*3/uL [place] # (Auto) 0.6 (0.1-1.2) X10*3/uL Eos # (Auto) 0.2 (0.0-0.4) X10*3/uL Baso # (Auto) 0.0 (0.0-0.2) X10*3/uL Abs Immat Gran (auto) 0.03 (0.00-0.03) X10*3/uL Absolute Neuts (auto) 6.7 (2.0-8.3) X10*3/uL Absolute Nucleated RBC 0.000 (0.0-0.012) X10*3/uL Nucleated RBC % (auto) 0.0 (0.0-0.2) /100WBC Sodium 142 (135-145) mmol/L Potassium 4.6 (3.3-5.1) mmol/L Chloride 109 H (96-108) mmol/L Carbon Dioxide 21 L (22-29) mmol/L Anion Gap 17 (12-20) BUN 9 (9-16) mg/dL Creatinine 0.82 (0.5-1.4) mg/dL Estim Creat Clear Calc 95.5 Estimated GFR > 60 Random Glucose 92 (60-115) mg/dL Calcium 9.2 D (8.4-10.2) mg/dL Total Bilirubin 0.3 (0.0-1.0) mg/dL Direct Bilirubin < 0.2 (0.0-0.5) mg/dL AST 50 H (5-31) U/L ALT 51 H (0-31) U/L Alkaline Phosphatase 111 (39-117) U/L Total Protein 7.7 (6.5-8.0) g/dL Albumin 4.1 (3.5-5.0) g/dL Urine Color YELLOW Urine Appearance CLEAR Urine pH 6.0 (5.0-8.0) Ur Specific [place] 1.020 (1.005-1.025) Urine Protein NEG (NEG-TRACE) MG/DL Urine Glucose (UA) >=1000 H (NEG) MG/DL Urine Ketones NEG (NEG) MG/DL Urine Blood TRACE (NEG) Urine Nitrite NEG (NEG) Ur Leukocyte Esterase NEG (NEG) Urine RBC 1-4 (0) /HPF Urine WBC 1-4 (0-4) /HPF Ur Squamous Epith Cells 2+ /LPF Urine Bacteria 2+ /LPF Urine Test (NEGATIVE) 03/17/21 Range/Units 00:41 WBC (4.8-10.8) X10*3/uL RBC (4.20-5.50) X10*6/uL Hgb (12.0-16.0) g/dl Hct (37-47) % MCV (80-98) fL MCH (27.0-33.0) pg MCHC (31.0-35.0) g/dl RDW (11.0-16.0) % Plt Count (160-400) X10*3/uL MPV (9.4-12.3) fL Immature Gran % (Auto) (0.0-0.4) % Neut % (Auto) (45-73) % Lymph % (Auto) (20-40) % [place] % (Auto) (2-11) % Eos % (Auto) (0-4) % Baso % (Auto) (0-2) % Lymph # (Auto) (1.2-4.9) X10*3/uL [place] # (Auto) (0.1-1.2) X10*3/uL Eos # (Auto) (0.0-0.4) X10*3/uL Baso # (Auto) (0.0-0.2) X10*3/uL Abs Immat Gran (auto) (0.00-0.03) X10*3/uL Absolute Neuts (auto) (2.0-8.3) X10*3/uL Absolute Nucleated RBC (0.0-0.012) X10*3/uL Nucleated RBC % (auto) (0.0-0.2) /100WBC Sodium (135-145) mmol/L Potassium (3.3-5.1) mmol/L Chloride (96-108) mmol/L Carbon Dioxide (22-29) mmol/L Anion Gap (12-20) BUN (9-16) mg/dL Creatinine (0.5-1.4) mg/dL Estim Creat Clear Calc Estimated GFR Random Glucose (60-115) mg/dL Calcium (8.4-10.2) mg/dL Total Bilirubin (0.0-1.0) mg/dL Direct Bilirubin (0.0-0.5) mg/dL AST (5-31) U/L ALT (0-31) U/L Alkaline Phosphatase (39-117) U/L Total Protein (6.5-8.0) g/dL Albumin (3.5-5.0) g/dL Urine Color Urine Appearance Urine pH (5.0-8.0) Ur Specific [place] (1.005-1.025) Urine Protein (NEG-TRACE) MG/DL Urine Glucose (UA) (NEG) MG/DL Urine Ketones (NEG) MG/DL Urine Blood (NEG) Urine Nitrite (NEG) Ur Leukocyte Esterase (NEG) Urine RBC (0) /HPF Urine WBC (0-4) /HPF Ur Squamous Epith Cells /LPF Urine Bacteria /LPF Urine Test NEGATIVE (NEGATIVE) Discharge Plan Discharge Clinical Impression: Bilateral renal colic Patient Disposition: Home, Self-Care Instructions: Renal Colic (ED) Additional Instructions: Please follow-up with your primary care physician tomorrow. If you have any worsening or new symptoms, please return to the emergency room or call 911 Prescriptions: New ketorolac 10 mg tablet 10 mg PO TID PRN (Reason: pain) 5 Days Qty: 10 RF: 0 tamsulosin 0.4 mg capsule 0.4 mg PO DAILY Qty: 10 RF: 0 No Action (DME) pen needle, diabetic [BD Ultra-Fine Micro Pen Needle] 32 gauge x 1/4 needle See Rx Instructions .ROUTE .MEDSUPPLY Qty: 50 RF: 11 Trulicity 0.75 mg/0.5 mL pen injector 0.75 mg subcut QWEEK 30 Days Qty: 2.5 RF: 11 Jardiance 25 mg tablet 25 mg PO DAILY 30 Days Qty: 30 RF: 4 metformin 1,000 mg tablet 1,000 mg PO BID 30 Days Qty: 60 RF: 11 cyclobenzaprine 10 mg tablet 10 mg PO TID PRN (Reason: muscle spasm) Qty: 14 RF: 0 albuterol sulfate 90 mcg/actuation Hfa Aerosol Inhaler 2 puff INHALATION Q4-6H PRN (Reason: Shortness Of Breath) RF: 0 tramadol 50 mg tablet 50 mg PO Q6H PRN (Reason: pain (scale score 1-3)) Qty: 14 RF: 0 ketorolac 10 mg tablet 10 mg PO Q8H PRN (Reason: pain) Qty: 10 RF: 0 tamsulosin [Flomax] 0.4 mg capsule 0.4 mg PO DAILY Qty: 20 RF: 0 oxycodone 5 mg tablet 5 mg PO Q8H PRN (Reason: pain) Qty: 5 RF: 0 pantoprazole [Protonix] [address] for susp in packet 40 mg PO DAILY RF: 0 vitamin A 8,000 unit capsule 10,000 unit PO DAILY RF: 0 (DME) FreeStyle Test Strip See Rx Instructions .ROUTE .MEDSUPPLY Qty: 10 RF: 0 (DME) blood-glucose meter [FreeStyle Lite Meter] Kit See Rx Instructions .ROUTE .MEDSUPPLY Qty: 1 RF: 0 (DME) lancets [FreeStyle Lancets] 28 gauge misc See Rx Instructions .ROUTE .MEDSUPPLY Qty: 100 RF: 11 atorvastatin 40 mg tablet 40 mg PO DAILY 30 Days Qty: 30 RF: 11 lisinopril 2.5 mg tablet 2.5 mg PO DAILY 30 Days Qty: 30 RF: 11 cholecalciferol (vitamin D3) 50 mcg (2,000 unit) capsule 50 mcg PO DAILY 30 Days Qty: 30 RF: 11 cholecalciferol (vitamin D3) 1,250 mcg (50,000 unit) capsule 1,250 mcg PO QWEEK 56 Days Qty: 8 RF: 0 pyridoxine (vitamin B6) 100 mg tablet 100 mg PO DAILY 90 Days Qty: 90 RF: 1 prednisone 20 mg tablet 20 mg PO DAILY 5 Days Qty: 5 RF: 0 PMFSH Past Medical History Medical History Anxiety Asthma Diabetes mellitus Elevated cholesterol Fatty liver GERD (gastroesophageal reflux disease) HLD (hyperlipidemia) HTN (hypertension) Migraines T2DM (type 2 diabetes mellitus) Transaminitis Vitamin D deficiency Surgical History H/O lithotripsy History of hysterectomy (~2011) History of local excision of skin lesion Family History Family History Father Heart disease Mother No problems noted. Social History Social History Alcohol intake: never Second Hand Smoke Exposure: No Advance Directives: No Patient : No
[2021-03-17 00:05] LABS: MANUAL DIFF FLAG NO
[2021-03-17 00:07] LABS: Basophils Percent Auto 0.2 % (0-2); Eosinophils Absolute Auto 0.2 X10*3/uL (0.0-0.4); Eosinophils Percent Auto 1.6 % (0-4); Hematocrit 39.6 % (37-47); Hemoglobin 12.5 g/dl (12.0-16.0); Imm Gran Abs Auto 0.03 X10*3/uL (0.00-0.03); Imm Gran Pct Auto 0.3 % (0.0-0.4); Lymphocytes Absolute Auto 3.8 X10*3/uL (1.2-4.9); Lymphocytes Percent Auto 33.5 % (20-40); Mean Corpuscular HGB Conc 31.6 g/dl (31.0-35.0); Mean Corpuscular Hemoglobin 27.2 pg (27.0-33.0); Mean Corpuscular Volume 86.3 fL (80-98); Mean Platelet Volume 10.8 fL (9.4-12.3); Monocytes Absolute Auto 0.6 X10*3/uL (0.1-1.2); Monocytes Percent Auto 5.5 % (2-11); Neutrophils Absolute Auto 6.7 X10*3/uL (2.0-8.3); Neutrophils Percent Auto 58.9 % (45-73); Platelet Count 226 X10*3/uL (160-400); Red Blood Count 4.59 X10*6/uL (4.20-5.50); Red Cell Distribution Width 13.1 % (11.0-16.0); White Blood Count 11.3 X10*3/uL (4.8-10.8)
[2021-03-17] MEDS: Ketorolac Tromethamine 15 MG/ML VIAL 30 MG IVPUSH (00:09)
[2021-03-17] MEDS: Tamsulosin HCL 0.4 MG CAPSULE PO (00:13)
[2021-03-17 00:33] LABS: Alanine Aminotransferase 51 U/L (0-31); Albumin Level 4.1 g/dL (3.5-5.0); Alkaline Phosphatase 111 U/L (39-117); Anion Gap 17 (12-20); Aspartate Amino Transferase 50 U/L (5-31); Bilirubin Direct < 0.2 mg/dL (0.0-0.5); Bilirubin Total 0.3 mg/dL (0.0-1.0); Blood Urea Nitrogen 9 mg/dL (9-16); Calcium 9.2 mg/dL (8.4-10.2); Carbon Dioxide 21 mmol/L (22-29); Chloride 109 mmol/L (96-108); Creatinine Clr Calc Pharmacy 95.5; Estimated Glomerular Filt Rate > 60; Glucose Random 92 mg/dL (60-115); Potassium 4.6 mmol/L (3.3-5.1); Sodium 142 mmol/L (135-145); Total Protein 7.7 g/dL (6.5-8.0)
[2021-03-17 00:47] LABS: Glucose Urine UA >=1000 MG/DL (NEG); Leukocyte Esterase Urine NEG (NEG); Nitrite Urine NEG (NEG); Urine Blood TRACE (NEG); Urine Ketones NEG (NEG); Urine Protein NEG (NEG-TRACE)
[2021-03-17 00:48] LABS: Appearance Urine CLEAR; Color Urine YELLOW
[2021-03-17 00:55] LABS: Bacteria Urine 2+ /LPF; Squamous Epithelial Cell Urine 2+ /LPF; UPreg QC Valid YES; Urine Pregnancy NEGATIVE (NEGATIVE)
[2021-03-17 01:12] VITALS: RESP 16
[2021-03-17 02:02] LABS: HCG Quantitative 3 mIU/mL
== END 2021-03-17 01:45 | disposition home or self-care (01) ==
PROVIDERS: Emergency Provider Emergency Medicine
DX: N23 Unspecified renal colic (principal); E11.9 Type 2 diabetes mellitus without complications; I10 Essential (primary) hypertension; Z79.4 Long term (current) use of insulin; Z79.899 Other long term (current) drug therapy
CPT/HCPCS: 36415; 80048; 80076; 81001; 81025; 84702; 85025; 96374; 96375; 99283; 99284; J1885; J2405

== ENCOUNTER 2021-03-27 | Outpatient (REF) | payer MEDICAID, SELFPAY ==
[2021-03-27 07:54] VITALS: BP 117/80; PULSE 78; RESP 16; TEMP 36.3; O2SAT 98; BMI 41.0
[2021-03-27 08:18] VITALS: BP 133/69; PULSE 98; RESP 16; O2SAT 98
--- NOTE | 2021-03-27 08:25 | W.PM.OPN ---
Operative Note Operative Note Date of Service: 03/27/21 Narrative: Preoperative diagnosis: Cystic skin lesion left face Postoperative diagnosis: Same Procedure: Excision of cystic skin lesion left face Surgeon: Lionel Cintron MD Silhouette Artist: No physician Anesthesia: Local Indications for procedure: 40-year-old female patient presenting with skin cyst of the left face which intermittently fills and becomes infected but is now decreased in size located in the left face just informed of the year. The lesion currently measures 0.5 cm but occasionally will swell to 1 cm in size. The lesion then drains a thick fluid and her symptoms improved. Operative findings: 0.5 cm lesion with pigmented changes on the surface extending into the dermis and subcutaneous tissue. Specimen: Skin cyst left face Estimated blood loss: 1 mL Complications: None Procedure details: Patient was brought to the minor surgery suite and placed in a supine position. The site of surgery was confirmed by the patient in the left face and informed consent confirmed. Skin was prepped with Betadine and draped in a sterile fashion. Local anesthesia consisting of lidocaine 1% with epinephrine was then infiltrated around the lesion. Elliptical incision was then made around the lesion and carried down through subcutaneous tissue and around the cyst wall. The lesion was then excised and sent to pathology for further examination. Light pressure was held on the wound to assure adequate hemostasis. Skin was closed using a single 6 0 nylon suture. Sterile dressings consisting of bacitracin ointment and a sterile bandage were then applied. The patient tolerated the procedure well. She was discharged home in stable condition.
== END 2021-03-27 00:01 | disposition home or self-care (01) ==
LOC: HO.MS
PROVIDERS: PCP Internal Medicine; Visit Provider Surgery
PROC: (CPT 11441; principal; 2021-03-27 08:00)
DX: L72.9 Follicular cyst of the skin and subcutaneous tissue, unspecified (principal)
CPT/HCPCS: 11441; 88304; 88305

== ENCOUNTER 2021-03-27 08:28 | Outpatient (REF) | payer MEDICAID, SELFPAY ==
[2021-03-27 09:45] LABS: Alanine Aminotransferase 41 U/L (0-31); Albumin Level 4.2 g/dL (3.5-5.0); Alkaline Phosphatase 112 U/L (39-117); Anion Gap 15 (12-20); Aspartate Amino Transferase 35 U/L (5-31); Bilirubin Total 0.5 mg/dL (0.0-1.0); Blood Urea Nitrogen 9 mg/dL (9-16); Calcium 9.4 mg/dL (8.4-10.2); Carbon Dioxide 23 mmol/L (22-29); Chloride 107 mmol/L (96-108); Estimated Glomerular Filt Rate > 60; Glucose Random 130 mg/dL (60-115); Potassium 3.8 mmol/L (3.3-5.1); Sodium 141 mmol/L (135-145); Total Protein 7.5 g/dL (6.5-8.0)
== END 2021-03-27 08:29 | disposition home or self-care (01) ==
LOC: HO.LAB 08:28
PROVIDERS: PCP Internal Medicine; Visit Provider Internal Medicine
DX: E11.65 Type 2 diabetes mellitus with hyperglycemia (principal)
CPT/HCPCS: 36415; 80053

== ENCOUNTER 2021-04-09 10:46 | Outpatient (REF) | payer MEDICAID, SELFPAY ==
--- NOTE | ~2021-04-09 | US_ITS ---
EXAMINATION: US RETROPERITONEAL LIMITED (RENAL ONLY) CLINICAL INFORMATION: Calculus of kidney. COMPARISON: CT abdomen pelvis 02/23/2021. Ultrasound renal 02/18/2021 and 11/14/2020. X-ray KUB 10/09/2020 TECHNIQUE: Real-time imaging of the kidneys. FINDINGS: RIGHT KIDNEY: 11.5 x 4.3 x 5.6 cm (SAG x AP x TRV). The kidney is normal in size, contour, and echogenicity. Renal cortical thickness is normal. No calculi or focal parenchymal lesions. No hydronephrosis. LEFT KIDNEY: 10.8 x 4.9 x 4.8 cm (SAG x AP x TRV). The kidney is normal in size, contour, and echogenicity. Renal cortical thickness is normal. No focal parenchymal lesions or hydronephrosis. Midpole 3 mm calculus felt to be present. There is also a 4 mm mid pole calculus. US/US renal BI IMPRESSION: No hydronephrosis. 2 small midpole calculi in the left are noted.
== END 2021-04-09 10:47 | disposition home or self-care (01) ==
LOC: HO.US 10:46
PROVIDERS: PCP Internal Medicine; Visit Provider Urology
DX: N20.0 Calculus of kidney (principal)
CPT/HCPCS: 76775

== ENCOUNTER → 2021-04-11 08:57 | Outpatient (BNVA) | payer MEDICAID, SELFPAY | PROVIDERS: PCP Internal Medicine; Referring Provider Internal Medicine; Visit Provider Surgery | DX: Z09 Encounter for follow-up examination after completed treatment for conditions other than malignant neoplasm (principal); D22.22 Melanocytic nevi of left ear and external auricular canal | CPT/HCPCS: 99212 ==

== ENCOUNTER → 2021-04-15 10:03 | Outpatient (BNVA) | payer MEDICAID, SELFPAY | PROVIDERS: PCP Internal Medicine | DX: N20.0 Calculus of kidney (principal) | CPT/HCPCS: 99212 ==

== ENCOUNTER 2021-05-02 08:44 | Emergency (ER) | payer MEDICAID, SELFPAY ==
--- NOTE | ~2021-05-02 | XR_ITS ---
EXAMINATION: XR FOOT, LEFT CLINICAL INFORMATION: Trauma, bruising fifth toe. COMPARISON: Radiographs left foot 03/31/2017. TECHNIQUE: 3 views of the left foot. FINDINGS: There is no fracture or dislocation or destructive process. A short trabecular groove noted junction of base and proximal shaft fourth metatarsal on AP view, similar to prior imaging. Bony mineralization appears normal. No arthropathy. XR/XR foot LT min 3V IMPRESSION: No fracture or dislocation.
[2021-05-02 08:51] VITALS: BP 137/81; PULSE 80; RESP 17; TEMP 36.1; O2SAT 96; BMI 40.0
--- NOTE | 2021-05-02 10:35 | ED_ITS ---
HPI - Extremity Injury (Lower) General Chief Complaint: Extremity Injury, Lower Stated Complaint: TOE INJ R FOOT Time Seen by Provider: 05/02/21 09:37 Source: patient Mode of arrival: ambulatory History of Present Illness HPI Narrative: 40-year-old female presenting to the ED complaining of left pinky toe pain, bruising, and inflammation s/p stepping foot on bed last night. Denies injury to the area, numbness, tingling, weakness. Reports pain with ambulation MD complaint: foot injury Related Data Home Medications Medication Instructions Recorded Confirmed blood sugar diagnostic (FreeStyle #10 ea 07/04/20 04/11/21 Test) pantoprazole 40 mg granules 40 mg PO DAILY 07/04/20 04/11/21 delayed-release for susp in packet (Protonix) vitamin A 2,400 mcg capsule 10,000 unit PO DAILY cap 07/04/20 04/11/21 albuterol sulfate 90 mcg/actuation 2 puff INHALATION Q4-6H PRN 10/01/20 04/11/21 aerosol inhaler albuterol sulfate mg INHALATION TID PRN 04/15/21 alcohol swabs (Alcohol Prep Pads) pad TOPICAL DAILY 04/15/21 buspirone 10 mg tablet 10 mg PO TID 04/15/21 docusate sodium 100 mg capsule 100 mg PO BID PRN 04/15/21 escitalopram oxalate 5 mg tablet 5 mg PO DAILY 04/15/21 ibuprofen 400 mg tablet 400 mg PO Q4H PRN 04/15/21 lancets 33 gauge (TRUEplus Lancets) #100 ea 04/15/21 magnesium oxide 400 mg (241.3 mg 200 mg PO DAILY 04/15/21 magnesium) tablet nitrofurantoin 1 cap PO Q12H 04/15/21 monohydrate/macrocrystals 100 mg capsule pantoprazole 40 mg tablet,delayed 40 mg PO DAILY 04/15/21 release sennosides 8.6 mg tablet (Senna 17.2 mg PO DAILY PRN 04/15/21 Laxative) terconazole 0.4 % vaginal cream 1 appful VAGINAL BEDTIME 04/15/21 vitamin A 10,000 unit capsule 1 cap PO DAILY 04/15/21 Previous Rx's Medication Instructions Recorded blood-glucose meter (FreeStyle #1 ea 07/07/20 Lite Meter) lancets 28 gauge (FreeStyle #100 ea 07/08/20 Lancets) atorvastatin 40 mg tablet 40 mg PO DAILY 30 Days #30 tab 08/22/20 cholecalciferol (vitamin D3) 1,250 1,250 mcg PO QWEEK 56 Days #8 cap 08/22/20 mcg (50,000 unit) capsule lisinopril 2.5 mg tablet 2.5 mg PO DAILY 30 Days #30 tab 08/22/20 pen needle, diabetic 32 gauge x #50 ea 09/26/2008/26 (BD Ultra-Fine Micro Pen Needle) cyclobenzaprine 10 mg tablet 10 mg PO TID PRN #14 tab 09/30/20 dulaglutide 0.75 mg/0.5 mL 0.75 mg SUBCUT QWEEK 30 Days #2.5 10/03/20 subcutaneous pen injector ml (Trulicity) ketorolac 10 mg tablet 10 mg PO Q8H PRN #10 tab 02/23/21 oxycodone 5 mg tablet 5 mg PO Q8H PRN #5 tab 02/23/21 tamsulosin 0.4 mg capsule (Flomax) 0.4 mg PO DAILY #20 cap 02/23/21 empagliflozin 25 mg tablet 25 mg PO DAILY 30 Days #30 tab 02/27/21 (Jardiance) prednisone 20 mg tablet 20 mg PO DAILY 5 Days #5 tab 02/28/21 metformin 1,000 mg tablet 1,000 mg PO BID 30 Days #60 tab 03/12/21 ketorolac 10 mg tablet 10 mg PO TID PRN 5 Days #10 tab 03/17/21 tamsulosin 0.4 mg capsule 0.4 mg PO DAILY #10 cap 03/17/21 cholecalciferol (vitamin D3) 50 50 mcg PO DAILY 30 Days #30 cap 03/31/21 mcg (2,000 unit) capsule pyridoxine (vitamin B6) 100 mg 100 mg PO DAILY 90 Days #90 tab 04/07/21 tablet tramadol 50 mg tablet 50 mg PO Q8H PRN #14 tab 04/15/21 Allergies Allergy/AdvReac Type Severity Reaction Status Date / Time morphine [MORPHINE] Allergy Intermediate DIAPHORESIS; Verified 05/02/21 08:53 TACHYCARDIA, palpitations, sweating, tingling of hands and face quetiapine [From SEROQUEL] Allergy Intermediate PALPITATION Verified 05/02/21 08:53 S trazodone [TRAZODONE] Allergy Intermediate GI Upset, Verified 05/02/21 08:53 HEART RACING, palpitations pineapple Allergy Mild unkno Verified 05/02/21 08:53 diphenhydramine Allergy Unknown HALLUCINATI Verified 05/02/21 08:53 [From BENADRYL] ONS prednisone [PREDNISONE] Allergy Unknown HEART RACES Verified 05/02/21 08:53 Seafood Allergy Unknown redness Uncoded 02/27/21 09:03 and itching Review of Systems Review of Systems: Constitutional: No Fever, No Chills ENT/Mouth: No Ear Pain, No Nasal Congestion, No sore throat, No Rhinorrhea, No Swallowing Difficulty Cardiovascular: No Chest Pain, No SOB Respiratory: No Cough, No Sputum, No Wheezing Gastrointestinal: No Nausea, No Abdominal pain Genitourinary:, No Dysuria, No Urinary Frequency, No Flank Pain Musculoskeletal: + joint pain, No Myalgias, + Joint Swelling Skin: No Skin Lesions, No rash Neuro: No Weakness, No Numbness, No Paresthesias Yes all other systems are reviewed and are negative [facility] Past Medical History Attestation statement: The following information was validated with the patient. Medical History Anxiety Asthma Diabetes mellitus Elevated cholesterol Fatty liver GERD (gastroesophageal reflux disease) HLD (hyperlipidemia) HTN (hypertension) Migraines T2DM (type 2 diabetes mellitus) Transaminitis Vitamin D deficiency Surgical History H/O lithotripsy History of hysterectomy (~2011) History of local excision of skin lesion Family History Family History Father Heart disease Mother No problems noted. Social History Social History Alcohol intake: never Second Hand Smoke Exposure: No Advance Directives: Yes Advance Directives Information Provided: Yes Advance Directives on File: No Patient : No Physical Exam Vital Signs: Vital Signs: Last Vital Signs Temp 97.0 F 05/02/21 08:51 Pulse 80 05/02/21 08:51 Resp 17 05/02/21 08:51 BP 137/81 05/02/21 08:51 Pulse Ox 96 05/02/21 08:51 Body Mass Index 40.0 Const: General: cooperative and healthy appearing Orientation/consciousness: patient oriented x3 Limitations: no limitations HENMT: Head: Yes normal to inspection Ears: hearing grossly normal bilaterally General nose exam: Normal external nose present Face and sinus: Yes normal facial exam Eyes: General: appearance normal, both eyes and all related structures EOM: EOMs intact bilaterally Neck: Neck: Yes normal visual inspection Resp: Effort & Inspection: normal respiratory effort and no respiratory distress Cardio: Rate: regular rate Peripheral pulses: dorsalis pedis present Skin: Rashes: no rashes Wounds: no wounds Neuro: General: patient oriented x3 Gait exam (Neuro): Normal gait present Extrem: Other: Left 5th toe with ecchymosis and mild swelling. Tender to palpation. Neurovascularly intact. Sensation intact to light touch Ankle nontender Course Course Course Narrative: XR foot LT min 3V IMPRESSION: No fracture or dislocation. > results discussed with patient with park interpreter. Patient requesting p ostop shoe, discussed with her this is not needed, to ice, elevate, take Tylenol and Motrin Discharge Plan Discharge Clinical Impression: Injury of toe Qualifiers: Encounter type: initial encounter Laterality: left Qualified Code(s): S99.922A - Unspecified injury of left foot, initial encounter Patient Disposition: Home, Self-Care Instructions: Foot Contusion (ED) Additional Instructions: You your x-ray was unremarkable. Ice and elevate her foot. Take Tylenol and Motrin. Follow up with her doctor as needed Tu radiograf?a no tuvo nada especial. Hielo y eleve bishop pie. [place] Tylenol y Motrin. Celia un seguimiento con bishop m?dico seg?n sea necesario Prescriptions: No Action (DME) pen needle, diabetic [BD Ultra-Fine Micro Pen Needle] 32 gauge x 1/4 needle See Rx Instructions .ROUTE .MEDSUPPLY Qty: 50 RF: 11 Trulicity 0.75 mg/0.5 mL pen injector 0.75 mg subcut QWEEK 30 Days Qty: 2.5 RF: 11 Jardiance 25 mg tablet 25 mg PO DAILY 30 Days Qty: 30 RF: 4 metformin 1,000 mg tablet 1,000 mg PO BID 30 Days Qty: 60 RF: 11 cholecalciferol (vitamin D3) 50 mcg (2,000 unit) capsule 50 mcg PO DAILY 30 Days Qty: 30 RF: 11 pyridoxine (vitamin B6) 100 mg tablet 100 mg PO DAILY 90 Days Qty: 90 RF: 1 cyclobenzaprine 10 mg tablet 10 mg PO TID PRN (Reason: muscle spasm) Qty: 14 RF: 0 ketorolac 10 mg tablet 10 mg PO TID PRN (Reason: pain) 5 Days Qty: 10 RF: 0 tamsulosin 0.4 mg capsule 0.4 mg PO DAILY Qty: 10 RF: 0 albuterol sulfate 90 mcg/actuation Hfa Aerosol Inhaler 2 puff INHALATION Q4-6H PRN (Reason: Shortness Of Breath) RF: 0 ketorolac 10 mg tablet 10 mg PO Q8H PRN (Reason: pain) Qty: 10 RF: 0 tamsulosin [Flomax] 0.4 mg capsule 0.4 mg PO DAILY Qty: 20 RF: 0 oxycodone 5 mg tablet 5 mg PO Q8H PRN (Reason: pain) Qty: 5 RF: 0 pantoprazole [Protonix] [address] for susp in packet 40 mg PO DAILY RF: 0 vitamin A 8,000 unit capsule 10,000 unit PO DAILY RF: 0 (DME) FreeStyle Test Strip See Rx Instructions .ROUTE .MEDSUPPLY Qty: 10 RF: 0 (DME) blood-glucose meter [FreeStyle Lite Meter] Kit See Rx Instructions .ROUTE .MEDSUPPLY Qty: 1 RF: 0 (DME) lancets [FreeStyle Lancets] 28 gauge misc See Rx Instructions .ROUTE .MEDSUPPLY Qty: 100 RF: 11 atorvastatin 40 mg tablet 40 mg PO DAILY 30 Days Qty: 30 RF: 11 lisinopril 2.5 mg tablet 2.5 mg PO DAILY 30 Days Qty: 30 RF: 11 cholecalciferol (vitamin D3) 1,250 mcg (50,000 unit) capsule 1,250 mcg PO QWEEK 56 Days Qty: 8 RF: 0 prednisone 20 mg tablet 20 mg PO DAILY 5 Days Qty: 5 RF: 0 tramadol 50 mg tablet 50 mg PO Q8H PRN (Reason: pain (scale score 1-3)) Qty: 14 RF: 0 Referrals: Jaquelin Rivera MD [Primary Care Provider] - 1 week (as needed) Print Language: Greenlandic
== END 2021-05-02 10:46 | disposition home or self-care (01) ==
PROVIDERS: Emergency Provider Emergency Medicine; PCP Internal Medicine
DX: S99.922A Unspecified injury of left foot, initial encounter (principal); M79.672 Pain in left foot; Y29.XXXA Contact with blunt object, undetermined intent, initial encounter; Y93.9 Activity, unspecified; Y92.9 Unspecified place or not applicable; Y99.9 Unspecified external cause status; Z79.899 Other long term (current) drug therapy
CPT/HCPCS: 73630; 99283

== ENCOUNTER → 2021-07-22 08:46 | Outpatient (BNVA) | payer MEDICAID, SELFPAY | PROVIDERS: PCP Internal Medicine; Referring Provider Internal Medicine; Visit Provider Surgery | DX: L91.0 Hypertrophic scar (principal) | CPT/HCPCS: 99212 ==

== ENCOUNTER 2021-08-19 12:46 | Outpatient (REF) | payer MEDICAID, SELFPAY ==
--- NOTE | ~2021-08-19 | US_ITS ---
EXAMINATION: US soft tissue left upper arm CLINICAL INFORMATION: Painful scar question mass COMPARISON: None available at the time of this dictation. TECHNIQUE: High-frequency linear transducer ultrasound utilized, area of interest scanned, soft tissue upper left arm FINDINGS: No ultrasound evidence of soft tissue mass, cyst or abscess, or abnormal distortion. US/US extremity nonvascular barrera IMPRESSION: No ultrasound evidence of loculated the fluid collection or abscess. If patient remain symptomatic consider correlation with follow-up contrast-enhanced MRI.
== END 2021-08-19 12:47 | disposition home or self-care (01) ==
LOC: HO.US 12:46
PROVIDERS: PCP Internal Medicine; Visit Provider Surgery
DX: L91.0 Hypertrophic scar (principal)
CPT/HCPCS: 76882

== ENCOUNTER 2021-11-27 09:47 | Outpatient (REF) | payer MEDICAID, SELFPAY ==
--- NOTE | ~2021-11-27 | US_ITS ---
EXAMINATION: US RETROPERITONEAL LIMITED (RENAL ONLY) CLINICAL INFORMATION: Calculus of kidney. COMPARISON: Renal ultrasound 04/09/2021 and 02/18/2021. CT abdomen and pelvis 02/23/2021. X-ray abdomen KUB 10/09/2020. TECHNIQUE: Real-time imaging of the kidneys. FINDINGS: RIGHT KIDNEY: 13.0 x 5.3 x 5.9 cm (SAG x AP x TRV). The kidney is normal in size, contour, and echogenicity. Renal cortical thickness is normal. No calculi or focal parenchymal lesions. No hydronephrosis. LEFT KIDNEY: 12.0 x 4.9 x 5.5 cm (SAG x AP x TRV). The kidney is normal in size, contour, and echogenicity. Renal cortical thickness is normal. No calculi or focal parenchymal lesions. No hydronephrosis. US/US renal BI IMPRESSION: No renal calculi or hydronephrosis of either kidney.
== END 2021-11-27 09:48 | disposition home or self-care (01) ==
LOC: HO.US 09:47
PROVIDERS: Visit Provider Urology
DX: N20.0 Calculus of kidney (principal)
CPT/HCPCS: 76775

== ENCOUNTER → 2021-12-03 12:40 | Outpatient (REF) | payer MEDICAID, SELFPAY ==
--- NOTE | 2021-12-03 12:44 | ECG_ITS ---
Hook-up date: 2021-12-03 12:00:00 Duration: 24:29:00 Test Indications: PALPITATIONS Medications: [id number] QRS complexes * Ventricular ectopics which represent % of total QRS comp. 6 Supraventricular ectopics which represent <1 % of total QRS comp. * Paced QRS complexs which represent % of total QRS comp. VENTRICULAR ECTOPY * Isolated * Bigeminal Cycles * Couplets * Runs * Beats in Runs * Beats LONGEST at * BPM at :: -- * Beats FASTEST at * BPM at :: -- SUPRAVENTRICULAR ECTOPY 6 Isolated 0 Couplets 0 Runs 0 Beats in Runs * Beats LONGEST at * BPM at :: -- * Beats FASTEST at * BPM at :: -- HEART RATES 56 MIN at 06:14:58 2021-12-04 87 AVG 158 MAX at 12:53:22 2021-12-03 LONGEST RR 1.1360 secs at 06:14:56 2021-12-04 S-T LEVELS Channel 1 - 128 mm at 12:00:00 2021-12-03 - 128 mm at 12:00:00 2021-12-03 Channel 2 - 128 mm at 12:00:00 2021-12-03 - 128 mm at 12:00:00 2021-12-03 Channel 3 - 128 mm at 03:11:91 -- - 128 mm at 03:11:91 Basic rhythm Normal sinus rhythm No long pause or profound bradycardia Rare Premature ventricular complexes Patient did not report any symptoms in the diary Referred By: Jaquelin Rivera Overread By: JOSE NASCIMENTO MD
== END ==
LOC: HO.CARD 12:40
PROVIDERS: Visit Provider Internal Medicine
DX: R00.2 Palpitations (principal)
CPT/HCPCS: 93225; 93226

== ENCOUNTER → 2021-12-04 15:35 | Outpatient (BNVA) | payer MEDICAID, SELFPAY | PROVIDERS: PCP Internal Medicine | DX: Z13.89 Encounter for screening for other disorder (principal) ==

== ENCOUNTER → 2021-12-16 12:31 | Outpatient (BNVA) | payer MEDICAID, SELFPAY | PROVIDERS: PCP Internal Medicine; Visit Provider Surgery Vascular Surgery | DX: I83.11 Varicose veins of right lower extremity with inflammation (principal) | CPT/HCPCS: 99202 ==

== ENCOUNTER 2021-12-23 08:44 | Outpatient (REF) | payer MEDICAID, SELFPAY ==
[2021-12-23 10:08] LABS: Estimated Average Glucose 151 mg/dL; Hemoglobin A1c % 6.9 %
[2021-12-23 10:18] LABS: Alanine Aminotransferase 58 U/L (0-31); Albumin Level 4.2 g/dL (3.5-5.0); Alkaline Phosphatase 106 U/L (39-117); Anion Gap 12 (12-20); Aspartate Amino Transferase 52 U/L (5-31); Bilirubin Total 0.5 mg/dL (0.0-1.0); Blood Urea Nitrogen 11 mg/dL (9-16); Calcium 9.6 mg/dL (8.4-10.2); Carbon Dioxide 24 mmol/L (22-29); Chloride 108 mmol/L (96-108); Estimated Glomerular Filt Rate > 60; Glucose Random 124 mg/dL (60-115); Potassium 4.3 mmol/L (3.3-5.1); Sodium 140 mmol/L (135-145); Total Protein 7.2 g/dL (6.5-8.0)
== END 2021-12-23 08:45 | disposition home or self-care (01) ==
LOC: HO.LAB 08:44
PROVIDERS: PCP Internal Medicine; Visit Provider Internal Medicine
DX: E11.65 Type 2 diabetes mellitus with hyperglycemia (principal)
CPT/HCPCS: 36415; 80053; 83036

== ENCOUNTER → 2022-01-01 08:52 | Outpatient (BNVA) | payer MEDICAID, SELFPAY | PROVIDERS: PCP Internal Medicine; Visit Provider Internal Medicine | DX: Z13.89 Encounter for screening for other disorder (principal) ==

== ENCOUNTER → 2022-01-07 10:16 | Outpatient (BNVA) | payer MEDICAID, SELFPAY | PROVIDERS: PCP Internal Medicine; Visit Provider Internal Medicine Cardiovascular Disease | DX: R07.89 Other chest pain (principal); R00.2 Palpitations | CPT/HCPCS: 93005; 99202 ==

== ENCOUNTER → 2022-01-08 09:45 | Outpatient (BNVA) | payer MEDICAID, SELFPAY | PROVIDERS: PCP Internal Medicine; Referring Provider Internal Medicine; Visit Provider Surgery | DX: L91.0 Hypertrophic scar (principal) | CPT/HCPCS: 99212 ==

== ENCOUNTER → 2022-01-12 09:44 | Outpatient (REF) | payer MEDICAID, SELFPAY ==
--- NOTE | 2022-01-12 | HM_ITS ---
41-year-old female. REASON FOR TEST: Palpitation. FINDINGS: 1. Patient was hooked up to cardiac event monitor from 01/12/2022, to 02/11/2022, for a total period of 30 days. 2. Only 1 rhythm strip was present, which shows sinus rhythm at 79 beats per minute. 3. There were no arrhythmic strips or arrhythmias noted. 4. No patient reported events. CONCLUSION: Cardiac event monitor is remarkable for uneventful cardiac event monitor with reported strip showing sinus rhythm with no arrhythmias reported and no patient reported symptoms. Alfredito Constantino MD NRS/MODL / [id number]
--- NOTE | 2022-01-12 09:51 | CA_ITS ---
Transthoracic Echocardiogram Patient (Last, First, Middle): Sacha Contreras, Gender: Female Date of : 1980 Age: 41 Procedure Date: 01/12/2022 Procedure Type: Transthoracic Echocardiogram Location: OP Height: 152.4 cm Weight: 95.26 kg BSA: 1.91 m2 Heart Rate: bpm BP: 120 / 75 mmHg Chemistry Tutor: Referring MD: Alfredito Constantino MD Symptoms: R07.89 - Other chest pain Study Quality: Fair ECG Rhythm: Sinus Conclusions: - The left ventricular systolic function is mildly decreased. The calculated ejection fraction is 49% by biplane method. - LV peak GLS -16.7% (slightly reduced). - No obvious valvular pathology seen on this study. Findings Left Ventricle Normal left ventricular cavity size. There is normal left ventricular wall thickness. The left ventricular systolic function is mildly decreased. The calculated ejection fraction is 49% by biplane method. There is mild global hypokinesis. Diastolic function is normal for age. LV peak GLS -16.7% (slightly reduced). Right Ventricle Normal right ventricular cavity size and systolic function. Atria Both atria are normal in size. Aortic Valve There is a normal trileaflet aortic valve. There is no aortic valve stenosis. There is no aortic valve regurgitation. Mitral Valve The mitral valve appears normal. There is no mitral valve regurgitation. There is no mitral valve stenosis. Pulmonic Valve The pulmonic valve is likely normal. Tricuspid Valve Normal tricuspid valve structure. There is no tricuspid valve regurgitation. The pulmonary artery systolic pressure is normal. Great Vessels The asc aorta is normal in size. Venous The inferior vena cava is normal in size and collapses greater than 50% with inspiration. Pericardium/Pleural There is no evidence of pericardial effusion. Prior Study Comparison No prior study available for comparison. Recommendations, Care & Conclusions No obvious valvular pathology seen on this study. Recommend contrast in the future to improve endocardial definition. Measurements 2D Linear Measurements IVSd: 0.93 0.6-0.9/0.6-1.0 cm LVIDd: 4.24 3.9-5.3/4.2-5.9 cm LVIDd Index: 2.22 2.4-3.2/2.2-3.1 cm/m2 LVIDs: 2.89 2.0-3.6 cm LVPWd: 0.84 0.7-1.1 cm LA Diam: 3.20 2.7-3.8/3.0-4.0 cm LAIDs Index: 1.68 1.5-2.3 cm/m2 LV Mass: 146.27 67-162/88-224 g LV Mass Index: 76.58 43-95/49-115 g/m2 LVOT Diam: 1.90 3.0+(-)1.3 cm 2D Systolic Function EF 4C: 44.80 >55% EF 2C: 52.10 >55% EF BiP: 49.30 >55% Mitral Valve MV Pk E: 0.57 MV PK A: 0.61 MV Decel Time: 176.00 E/A: 0.90 E'Lateral: 12.10 E'Medial: 6.85 E/E' Med: 8.30 E/E' Lat: 4.70 PHT: 51.00 MVA PHT: 4.31 Decel [place]: 3.24 Aortic Valve AoV Pk Elijah: 1.03 AoV Mn Elijah: 0.72 AoV VTI: 0.20 AoV Pk Grad: 4.00 Aov Mn Grad: 2.00 CHIO Cont.VTI: 2.26 LVOT LVOT Pk Elijah: 0.80 LVOT Mn Elijah: 0.56 LVOT VTI: 0.16 LVOT Pk Grad: 3.00 LVOT Mn Grad: 1.00 LVOT Diam: 1.90 LVOT Area: 2.84 Diastolic Function MV Pk E: 0.57 MV Pk A: 0.61 E/A: 0.90 E'Medial: 6.85 E/E' Med: 8.30 E' Laterial: 12.10 E/E' Lat: 4.70 Right Ventricle TAPSE (mm): 27.00 TVS' Elijah: 9.00 Tricuspid Valve TR Pk Elijah: 1.45 TR Pk Grad: 8.00 RA Press: 3.00 RVSP: 11.00 Great Vessels Aorta Ao Asc: 2.70 2.1-3.4 cm Pulmonary Valve PV Pk Elijah: 1.48 Peak PV Grad: 9.00 Updated in Other Vendor System with Status of Final Bert Aleman MD electronically signed on 01/13/2022 12:46:12 PM with status of Final
--- NOTE | 2022-01-12 09:51 | CA_ITS ---
Acquisition Time: 2022-01-12 11:13:04 Total Exercise Time: 00:06:00 Test Indications: CP Medications: SEE CHART Protocol: OG Max HR: 162 BPM 91% of Pred: 178 BPM Max BP: 144/070 mmHG Max Work Load: 7.0 METS Exercise stress test with exercise 6 min of Og protocol with report of 7/10 mid chest tightness, without arrythmia, with normotensive response to exercise, without EKG changes meeting criteria for ischemia. In recovery she reported improvement in her chest tightness down to 4/10. She did report increased discomfort in that area with deep inspiraton and palpation. Will order a stress echocardiogram for further evaluation. Test reviewed with Dr Arriaza. Referred By: Alfredito Constantino Overread By: SHAWN DANGELO
== END ==
LOC: HO.CARD 09:44
PROVIDERS: PCP Internal Medicine; Visit Provider Internal Medicine Cardiovascular Disease
DX: R07.89 Other chest pain (principal)
CPT/HCPCS: 93017; 93270; 93306; 93356

== ENCOUNTER 2022-01-26 09:43 | Outpatient (REF) | payer MEDICAID, SELFPAY ==
--- NOTE | ~2022-01-26 | US_ITS ---
EXAMINATION: BILATERAL LOWER EXTREMITY VENOUS ULTRASOUND (REFLUX EXAM) CLINICAL INDICATION: Right lower extremity varicose veins. COMPARISON: Bilateral lower extremity venous Doppler ultrasound on 09/07/2019. TECHNIQUE: Color flow triplex imaging and compression Doppler was performed to evaluate both the deep and the superficial systems bilaterally. To evaluate the superficial system, the examination was performed in the upright position. Color-flow Doppler ultrasound and compression ultrasound were utilized. In addition, maneuvers were utilized to demonstrate reflux. FINDINGS: SUPERFICIAL ULTRASOUND WITH DOPPLER OF RIGHT LOWER EXTREMITY GREAT SAPHENOUS VEIN: Saphenofemoral junction: 9 mm Max diameter: 9 mm Min diameter: 1 mm Reflux: There is reflux throughout the right great saphenous vein beginning at the saphenofemoral junction measuring up to 1.2 seconds. There is also reflux above the knee and below the knee to the ankle. Additional: The saphenous vein is not seen at the proximal thigh. DUPLICATED MEDIAL GREAT SAPHENOUS VEIN: Max Diameter: None Imaged. Reflux: N/A DUPLICATED LATERAL GREAT SAPHENOUS VEIN: Diameter: 4 mm at the junction. Reflux: None. SMALL SAPHENOUS VEIN: Proximal Calf: 3 mm Distal Calf: 1 mm Reflux: No evidence of reflux. VEIN OF GIACOMINI: None Imaged. PERFORATORS: Location: Mid and distal thigh and proximal calf all measuring 2 mm. Reflux: None. VARICOSITIES: Location: Proximal calf measuring 2 mm. Reflux: All imaged varicosities demonstrate reflux greater than 1.5 seconds. DEEP VENOUS ULTRASOUND OF THE RIGHT LOWER EXTREMITY: Common Femoral Vein: Compressible, normal respiratory variation and augmented flow. Femoral vein: Compressible, normal color flow and augmentation. Popliteal Vein: Compressible, normal augmentation. Deep Reflux: There is no evidence of reflux in the deep system in either the common femoral vein or the popliteal vein. Mack's Cyst: There is no evidence of a Mack's cyst. SUPERFICIAL ULTRASOUND WITH DOPPLER OF LEFT LOWER EXTREMITY GREAT SAPHENOUS VEIN: Saphenofemoral junction: 8 mm Max diameter: 8 mm Min diameter: 1 mm Reflux: There is reflux within the great saphenous vein at and below the knee up to 2.8 seconds. Additional: The great saphenous vein is not visualized at the mid thigh and above the knee. DUPLICATED MEDIAL GREAT SAPHENOUS VEIN: Max Diameter: None Imaged. Reflux: N/A DUPLICATED LATERAL GREAT SAPHENOUS VEIN: Diameter: 6 mm at the junction. Reflux: None. SMALL SAPHENOUS VEIN: Proximal Calf: 3 mm Distal Calf: 1 mm Reflux: There is up to 2.8 seconds of reflux within the proximal/midcalf. VEIN OF GIACOMINI: None Imaged. PERFORATORS: Location: Midcalf measuring 3 and 5 mm. Reflux: None. VARICOSITIES: Location: Proximal calf and midcalf measuring between 2 and 3 mm. Reflux: All imaged varicosities demonstrate greater than 3.3 seconds of reflux. DEEP VENOUS ULTRASOUND OF THE LEFT LOWER EXTREMITY: Common Femoral Vein: Compressible, normal respiratory variation and augmented flow. Femoral vein: Compressible, normal color flow and augmentation. Popliteal Vein: Compressible, normal augmentation. Deep Reflux: There is no evidence of reflux in the deep system in either the common femoral vein or the popliteal vein. Mack's Cyst: There is no evidence of a Mack's cyst. US/US venous duplex LE BI IMPRESSION: 1. There is reflux throughout the right great saphenous vein beginning at the saphenofemoral junction. The right great saphenous vein is not seen at the proximal thigh. 2. There is segmental reflux involving the left great saphenous vein at and below the knee. The left great saphenous vein is not visualized at the mid thigh and above the knee. 3. Left small saphenous venous insufficiency beginning in the proximal/midcalf. 4. Bilateral refluxing varicosities. 5. No evidence of DVT or deep venous insufficiency.
== END 2022-01-26 09:44 | disposition home or self-care (01) ==
LOC: HO.US 09:43
PROVIDERS: Visit Provider Surgery Vascular Surgery
DX: I83.11 Varicose veins of right lower extremity with inflammation (principal)
CPT/HCPCS: 93970

== ENCOUNTER → 2022-02-03 10:40 | Outpatient (BNVA) | payer MEDICAID, SELFPAY | PROVIDERS: PCP Internal Medicine; Visit Provider Surgery Vascular Surgery | DX: I83.11 Varicose veins of right lower extremity with inflammation (principal) | CPT/HCPCS: 99212 ==

== ENCOUNTER → 2022-02-18 10:44 | Outpatient (BNVA) | payer MEDICAID, SELFPAY | PROVIDERS: PCP Internal Medicine; Referring Provider Internal Medicine; Visit Provider Internal Medicine Cardiovascular Disease | DX: I42.9 Cardiomyopathy, unspecified (principal); R00.2 Palpitations; Z79.899 Other long term (current) drug therapy | CPT/HCPCS: 99212 ==

== ENCOUNTER 2022-02-27 | Outpatient (REF) | payer MEDICAID, SELFPAY | END 2022-02-27 00:01 | disposition home or self-care (01) | LOC: CF | PROVIDERS: Visit Provider Surgery Vascular Surgery | DX: Z13.89 Encounter for screening for other disorder (principal) ==

== ENCOUNTER → 2022-02-27 08:44 | Outpatient (BNVA) | payer MEDICAID, SELFPAY | PROVIDERS: PCP Internal Medicine; Visit Provider Surgery Vascular Surgery | DX: I83.11 Varicose veins of right lower extremity with inflammation (principal) | CPT/HCPCS: 36482 ==

== ENCOUNTER → 2022-03-12 09:46 | Outpatient (BNVA) | payer MEDICAID, SELFPAY | PROVIDERS: PCP Internal Medicine; Visit Provider Surgery Vascular Surgery | DX: I83.12 Varicose veins of left lower extremity with inflammation (principal) | CPT/HCPCS: 99212 ==

== ENCOUNTER 2022-03-30 12:48 | Outpatient (REF) | payer MEDICAID, SELFPAY ==
--- NOTE | ~2022-03-30 | US_ITS ---
EXAMINATION: US ABDOMEN COMPLETE CLINICAL INFORMATION: Right upper quadrant pain. COMPARISON: Previous CT of the abdomen and pelvis February 2021 TECHNIQUE: Real-time imaging of the abdominal viscera. FINDINGS: PANCREAS: Not well visualized due to bowel gas. ABDOMINAL AORTA: Not well visualized. INFERIOR VENA CAVA: Not well visualized. LIVER: Enlarged echogenic liver. No focal hepatic lesion. There is no intrahepatic biliary duct dilatation seen. GALLBLADDER: Normal. The gallbladder is physiologically distended without evidence of stones, sludge, polyps, wall thickening or pericholecystic fluid. COMMON BILE DUCT: Not well visualized. RIGHT KIDNEY: Normal. No hydronephrosis. No renal calculi or focal parenchymal lesions. The kidney measures 12.3 cm in maximum dimension. LEFT KIDNEY: Normal. No hydronephrosis. No renal calculi or focal parenchymal lesions. The kidney measures 10.8 cm in maximum dimension. SPLEEN: Normal. The spleen measures 11 cm in maximum dimension. FREE FLUID: None. US/US abdomen complete IMPRESSION: Enlarged echogenic liver probably representing fatty infiltration. Normal-appearing gallbladder. Nonvisualization of the pancreas, aorta, IVC and common bile duct.
== END 2022-03-30 12:49 | disposition home or self-care (01) ==
LOC: HO.US 12:48
PROVIDERS: PCP Internal Medicine; Visit Provider Emergency Medicine
DX: R10.11 Right upper quadrant pain (principal)
CPT/HCPCS: 76700

== ENCOUNTER → 2022-04-21 10:45 | Outpatient (BNVA) | payer MEDICAID, SELFPAY | PROVIDERS: PCP Internal Medicine; Visit Provider Surgery | DX: L72.0 Epidermal cyst (principal); Z79.899 Other long term (current) drug therapy | CPT/HCPCS: 99202 ==

== ENCOUNTER → 2022-05-15 10:23 | Outpatient (BNVA) | payer MEDICAID, SELFPAY | PROVIDERS: PCP Internal Medicine; Visit Provider Surgery Vascular Surgery | DX: I83.12 Varicose veins of left lower extremity with inflammation (principal) | CPT/HCPCS: 37765 ==

== ENCOUNTER 2022-05-26 07:46 | Outpatient (REF) | payer MEDICAID, SELFPAY | END 2022-05-26 07:47 | disposition home or self-care (01) | LOC: HO.HOSX 07:46 | PROVIDERS: Visit Provider Physician Assistant | DX: Z13.89 Encounter for screening for other disorder (principal) ==

== ENCOUNTER → 2022-05-28 08:43 | Outpatient (BNVA) | payer MEDICAID, SELFPAY | PROVIDERS: PCP Internal Medicine; Visit Provider Surgery Vascular Surgery | DX: I83.11 Varicose veins of right lower extremity with inflammation (principal) | CPT/HCPCS: 99212 ==

== ENCOUNTER 2022-05-29 08:48 | Outpatient (REF) | payer MEDICAID, SELFPAY ==
--- NOTE | ~2022-05-29 | US_ITS ---
EXAMINATION: US RETROPERITONEAL LIMITED (RENAL ONLY) CLINICAL INFORMATION: Calculus of kidney. COMPARISON: Ultrasound abdomen complete 03/30/2022. Renal ultrasound 11/27/2021. CT abdomen and pelvis 02/23/2021. X-ray KUB 10/09/2020 and 06/08/2013. TECHNIQUE: Real-time imaging of the kidneys. FINDINGS: RIGHT KIDNEY: 12.1 x 5.4 x 5.6 cm (SAG x AP x TRV). The kidney is normal in size, contour, and echogenicity. Renal cortical thickness is normal. No calculi or focal parenchymal lesions. No hydronephrosis. There is an echogenic foci midpole measuring 0.3 x 0.2 x 0.2 cm. No additional lesions seen. There is no caliectasis or hydronephrosis. LEFT KIDNEY: 11.0 x 5.0 x 5.3 cm (SAG x AP x TRV). The kidney is normal in size, contour, and echogenicity. Renal cortical thickness is normal. No calculi or focal parenchymal lesions. No hydronephrosis. US/US renal BI IMPRESSION: Small echogenic foci in midpole right kidney. No focal caliectasis or hydronephrosis seen.
== END 2022-05-29 08:49 | disposition home or self-care (01) ==
LOC: HO.US 08:48
DX: N20.0 Calculus of kidney (principal)
CPT/HCPCS: 76775

== ENCOUNTER 2022-06-02 18:12 | Emergency (ER) | payer MEDICAID, SELFPAY ==
--- NOTE | ~2022-06-02 | XR_ITS ---
EXAMINATION: XR CHEST CLINICAL INFORMATION: Chest pain COMPARISON: None TECHNIQUE: Frontal view of the chest was obtained. 6:58 PM FINDINGS: No significant abnormality is noted involving the heart, lungs, mediastinum, bony thorax or soft tissues. XR/XR chest 1V IMPRESSION: Unremarkable examination.
[2022-06-02 18:15] VITALS: BP 146/89; PULSE 91; RESP 18; TEMP 36.8; O2SAT 99; BMI 41.0
--- NOTE | 2022-06-02 18:16 | ECG_ITS ---
Test Reason : chest pain Blood Pressure : / mmHG Vent. Rate : 092 BPM Atrial Rate : 092 BPM P-R Int : 154 ms QRS Dur : 088 ms QT Int : 364 ms P-R-T Axes : 044 020 021 degrees QTc Int : 450 ms Normal sinus rhythm Normal ECG When compared with ECG of 15-APR-2016 15:24, No significant change was found Referred By: Generic ED Physician Electronically Signed By:GABRIELLA PRADO MD
[2022-06-02 19:26] LABS: Hematocrit 37.9 % (37.0-47.0); Hemoglobin 12.5 g/dl (12.0-16.0); Mean Corpuscular Hemoglobin 27.3 pg (27.0-33.0); Mean Corpuscular Volume 82.8 fL (80.0-98.0); Mean Platelet Volume 10.1 fL (9.4-12.3); Platelet Count 245 X10*3/uL (160-400); Red Blood Count 4.58 X10*6/uL (4.20-5.50); Red Cell Distribution Width 14.1 % (11.0-16.0); White Blood Count 10.8 X10*3/uL (4.8-10.8)
[2022-06-02 19:40] LABS: COVID-19 Test Negative (Negative); IDNOW Serial# 16C4AD1C
[2022-06-02 19:52] LABS: Anion Gap 16 (12-20); Blood Urea Nitrogen 10 mg/dL (9-16); Carbon Dioxide 22 mmol/L (22-29); Chloride 108 mmol/L (96-108); Creatinine Clr Calc Pharmacy 94.5; Estimated Glomerular Filt Rate > 60; Glucose Random 110 mg/dL (60-115); Potassium 3.7 mmol/L (3.3-5.1); Sodium 142 mmol/L (135-145)
[2022-06-02 19:59] LABS: Troponin-I High Sensitivity < 3.5 ng/L (<3.5-17.0)
== END 2022-06-02 19:33 | disposition left against medical advice (07) ==
PROVIDERS: Emergency Provider Emergency Medicine
DX: R07.89 Other chest pain (principal); R20.0 Anesthesia of skin; Z20.822 Contact with and (suspected) exposure to COVID-19; Z79.899 Other long term (current) drug therapy
CPT/HCPCS: 71045; 80048; 84484; 85027; 87635; 93005; 99283

== ENCOUNTER 2022-06-22 | Outpatient (REF) | payer MEDICAID, SELFPAY | END 2022-06-22 00:01 | disposition home or self-care (01) | LOC: HO.HOSX | PROVIDERS: Visit Provider Physician Assistant | DX: Z13.89 Encounter for screening for other disorder (principal) ==

== ENCOUNTER 2022-07-13 12:45 | Emergency (ER) | payer MEDICAID, SELFPAY ==
--- NOTE | ~2022-07-13 | XR_ITS ---
EXAMINATION: XR CHEST CLINICAL INFORMATION: Chest pain COMPARISON: None TECHNIQUE: Frontal view of the chest was obtained. FINDINGS: No significant abnormality is noted involving the heart, lungs, mediastinum, bony thorax or soft tissues. There is right C7 cervical rib. XR/XR chest 1V IMPRESSION: Unremarkable chest examination.
[2022-07-13 12:48] VITALS: BP 132/88; PULSE 96; RESP 18; TEMP 36.6; O2SAT 98; BMI 41.0
--- NOTE | 2022-07-13 12:54 | ECG_ITS ---
Test Reason : chest pain Blood Pressure : / mmHG Vent. Rate : 096 BPM Atrial Rate : 096 BPM P-R Int : 146 ms QRS Dur : 080 ms QT Int : 356 ms P-R-T Axes : 033 014 018 degrees QTc Int : 449 ms Normal sinus rhythm Minimal voltage criteria for LVH, may be normal variant ( R in aVL ) Borderline ECG When compared with ECG of 02-JUN-2022 19:10, No significant change was found Referred By: Generic ED Physician Electronically Signed By:GABRIELLA PRADO MD
[2022-07-13 13:23] LABS: MANUAL DIFF FLAG NO
[2022-07-13 13:26] LABS: Basophils Percent Auto 0.2 % (0-2); Eosinophils Absolute Auto 0.1 X10*3/uL (0.0-0.4); Eosinophils Percent Auto 1.3 % (0-4); Hematocrit 41.2 % (37.0-47.0); Hemoglobin 13.5 g/dl (12.0-16.0); Imm Gran Abs Auto 0.03 X10*3/uL (0.00-0.03); Imm Gran Pct Auto 0.3 % (0.0-0.4); Lymphocytes Absolute Auto 2.2 X10*3/uL (1.2-4.9); Lymphocytes Percent Auto 22.9 % (20-40); Mean Corpuscular HGB Conc 32.8 g/dl (31.0-35.0); Mean Corpuscular Hemoglobin 27.3 pg (27.0-33.0); Mean Corpuscular Volume 83.4 fL (80.0-98.0); Mean Platelet Volume 9.7 fL (9.4-12.3); Monocytes Absolute Auto 0.6 X10*3/uL (0.1-1.2); Monocytes Percent Auto 6.2 % (2-11); Neutrophils Absolute Auto 6.5 x10*3/uL (2.0-8.3); Neutrophils Percent Auto 69.1 % (45-73); Platelet Count 269 X10*3/uL (160-400); Red Blood Count 4.94 X10*6/uL (4.20-5.50); Red Cell Distribution Width 13.4 % (11.0-16.0); White Blood Count 9.4 X10*3/uL (4.8-10.8)
[2022-07-13 13:45] LABS: Anion Gap 15 (12-20); Blood Urea Nitrogen 9 mg/dL (9-16); Calcium 9.4 mg/dL (8.4-10.2); Carbon Dioxide 25 mmol/L (22-29); Chloride 106 mmol/L (96-108); Creatinine Clr Calc Pharmacy 102.2; Estimated Glomerular Filt Rate > 60; Glucose Random 149 mg/dL (60-115); Potassium 3.7 mmol/L (3.3-5.1); Sodium 142 mmol/L (135-145)
[2022-07-13 13:54] LABS: Troponin-I High Sensitivity < 3.5 ng/L (<3.5-17.0)
[2022-07-13 14:31] VITALS: BP 115/74; PULSE 94; RESP 14; TEMP 36.9; O2SAT 99
--- NOTE | 2022-07-13 14:45 | ED_ITS ---
HPI - Chest Pain General Chief Complaint: Chest Pain Stated Complaint: chest pain Time Seen by Provider: 07/13/22 14:27 Source: patient Mode of arrival: ambulatory Limitations: no limitations History of Present Illness HPI narrative: 41-year-old female with a past medical history of diabetes, hypertension, hyperlipidemia complaints with chest pain which radiates to the upper shoulders since yesterday which began at rest while watching TV with no associated shortness of breath, cough, fever, dizziness, palpitations, diaphoresis, vomiting. Pain is constant. Not worsened with exertion. Pain is worsened if patient moves or touches the area. Not pleuritic. No leg swelling or leg pain. No recent travel or OCP use. No history of DVT or PE no family history of same. Related Data Home Medications Medication Instructions Recorded Confirmed albuterol sulfate 90 mcg/actuation 2 puff inhalation Q4-6H PRN 10/01/20 06/29/22 aerosol inhaler Shortness Of Breath albuterol sulfate 2.5 mg/3 mL mg inhalation TID PRN wheezing 04/15/21 06/29/22 (0.083 %) solution for nebulization alcohol swabs (Alcohol Prep Pads) pad topical DAILY 04/15/21 06/29/22 buspirone 10 mg tablet 10 mg PO TID 04/15/21 06/29/22 docusate sodium 100 mg capsule 100 mg PO BID PRN 04/15/21 06/29/22 escitalopram oxalate 5 mg tablet 5 mg PO DAILY 04/15/21 06/29/22 magnesium oxide 400 mg (241.3 mg 200 mg PO DAILY 04/15/21 06/29/22 magnesium) tablet pantoprazole 40 mg tablet,delayed 40 mg PO DAILY 04/15/21 06/29/22 release sennosides 8.6 mg tablet (Senna 17.2 mg PO DAILY PRN constipation 04/15/21 06/29/22 Laxative) terconazole 0.4 % vaginal cream 1 appful vaginal BEDTIME 04/15/21 06/29/22 vitamin A 10,000 unit capsule 1 cap PO DAILY 04/15/21 06/29/22 escitalopram oxalate 20 mg tablet 20 mg PO DAILY 12/16/21 06/29/22 ibuprofen 600 mg tablet 600 mg PO Q6H 12/16/21 06/29/22 dulaglutide 0.75 mg/0.5 mL 0.75 mg subcut QWEEK 01/07/22 06/29/22 subcutaneous pen injector (Trulicity) sumatriptan succinate 50 mg tablet 50 mg PO migraine 01/07/22 06/29/22 clonazepam 0.5 mg tablet 0.5 mg PO DAILY PRN anxiety 02/03/22 06/29/22 Previous Rx's Medication Instructions Recorded blood-glucose meter (FreeStyle #1 ea 07/07/20 Lite Meter kit) pen needle, diabetic 32 gauge x #50 ea 09/26/2008/26 (BD Ultra-Fine Micro Pen Needle) cyclobenzaprine 10 mg tablet 10 mg PO TID PRN muscle spasm #14 09/30/20 tabs ketorolac 10 mg tablet 10 mg PO Q8H PRN pain #10 tabs 02/23/21 pyridoxine (vitamin B6) 100 mg 100 mg PO DAILY 90 days #90 tabs 04/07/21 tablet tramadol 50 mg tablet 50 mg PO Q8H PRN pain (scale score 04/15/21 1-3) #14 tabs dulaglutide 1.5 mg/0.5 mL 1.5 mg (0.5 mL) subcut QWEEK 30 01/01/22 subcutaneous pen injector days #2.5 mL (Trulicity) blood sugar diagnostic (FreeStyle #100 ea 01/22/22 Lite Strips) lisinopril 5 mg tablet 5 mg PO DAILY #30 tabs 02/18/22 empagliflozin 25 mg tablet 25 mg PO DAILY 30 days #30 tabs 02/25/22 (Jardiance) cholecalciferol (vitamin D3) 50 50 mcg PO DAILY 30 days #30 caps 03/10/22 mcg (2,000 unit) capsule metformin 1,000 mg tablet 1,000 mg PO BID 30 days #60 tabs 03/10/22 lancets 33 gauge (TRUEplus Lancets) 1 gauge miscellaneous QID for 03/17/22 diabetes mellitus 30 days #100 ea atorvastatin 40 mg tablet 40 mg PO DAILY 30 days #30 tabs 05/25/22 cyclobenzaprine 10 mg tablet 10 mg PO TID PRN muscle spasm #10 07/13/22 tabs ibuprofen 600 mg tablet 600 mg PO Q6H PRN pain #30 tabs 07/13/22 Allergies Allergy/AdvReac Type Severity Reaction Status Date / Time morphine [MORPHINE] Allergy Intermediate DIAPHORESIS; Verified 07/13/22 12:47 TACHYCARDIA, palpitations, sweating, tingling of hands and face quetiapine [From SEROQUEL] Allergy Intermediate PALPITATION Verified 07/13/22 12:47 S tomato Allergy Intermediate Blister Verified 07/13/22 12:47 trazodone [TRAZODONE] Allergy Intermediate GI Upset, Verified 07/13/22 12:47 HEART RACING, palpitations pineapple Allergy Mild unkno Verified 07/13/22 12:47 diphenhydramine Allergy Unknown HALLUCINATI Verified 07/13/22 12:47 [From BENADRYL] ONS prednisone [PREDNISONE] Allergy Unknown HEART RACES Verified 07/13/22 12:47 Seafood Allergy Unknown redness Uncoded 07/13/22 12:47 and itching Review of Systems Review of Systems: Yes all other systems are reviewed and are negative Constitutional: Constitutional: Reports no additional constitutional complaints, Denies body ache(s), Denies chills, Denies fever(s), Denies headache(s) and Denies weakness Eyes: Eyes: Reports no additional eye complaints and Denies change in vision ENT: Reports system reviewed and no additional complaints, except as document ed, Denies dizziness, Denies headache(s), Denies nasal congestion, Denies nasal discharge and Denies neck pain Cardiovascular: Cardiovascular: Reports no additional cardiovascular complaints, Reports chest pain, Denies leg edema and Denies dyspnea Respiratory: Respiratory: Reports no additional respiratory complaints, Denies cough and Denies dyspnea Gastrointestinal: Gastrointestinal: Reports no additional gastrointestinal complaints, Denies abdominal pain, Denies diarrhea, Denies nausea and Denies vomiting Genitourinary: Genitourinary: Reports no additional female genitourinary complaints and Denies urinary incontinence Musculoskeletal: Musculoskeletal: Reports no additional musculoskeletal complaints, Reports back pain, Denies arthralgias, Denies joint swelling, Denies neck pain, Denies numbness and Denies tingling Integumentary/Breasts: Skin/Breast: Reports system reviewed and no additional complaints, except as docu and Denies rash Neurologic: Reports system reviewed and no additional complaints, except as documented, Denies Abnormal speech present, Denies dizziness, Denies headache(s), Denies numbness, Denies tingling and Denies weakness [facility] Past Medical History Attestation statement: The following information was validated with the patient. Source: old records reviewed and nursing notes reviewed Medical History Anxiety Asthma Diabetes mellitus Elevated cholesterol Fatty liver GERD (gastroesophageal reflux disease) HLD (hyperlipidemia) HTN (hypertension) Migraines T2DM (type 2 diabetes mellitus) Transaminitis Vitamin D deficiency Surgical History H/O lithotripsy History of hysterectomy (~2011) History of local excision of skin lesion Family History Family History Father Heart disease Mother No problems noted. Social History Social History Alcohol intake: never Patient Tobacco Use Status: Never used Tobacco Second Hand Smoke Exposure: No Advance Directives: No Advance Directives Information Provided: Yes Physical Exam Vital Signs: Vital Signs: Last Vital Signs Temp 98.4 F 07/13/22 14:31 Pulse 94 07/13/22 14:31 Resp 14 07/13/22 14:31 BP 115/74 07/13/22 14:31 Pulse Ox 99 07/13/22 14:31 O2 Del Method 07/13/22 14:31 BMI result Body Mass Index 41.0 Const: General: cooperative, healthy appearing, comfortable and no acute distress Orientation/consciousness: patient oriented x3 Limitations: no limitations HEENT: Head: Yes normal to inspection Ears: hearing grossly normal harvinder aterally General nose exam: Normal external nose present Face and sinus: Yes normal facial exam Mouth: Normal oral and palatal mucosa present Throat: Yes posterior oropharynx normal Eyes: General: appearance normal, both eyes and all related structures Pupils: Equal, round and reactive pupils present Neck: Neck: Yes normal visual inspection Chest: Other: Central chest tender to palpate Chest palpation & inspection: normal inspection of the chest Resp: Effort & Inspection: normal respiratory effort Auscultation: clear to auscultation bilaterally Cardio: Rate: regular rate Rhythm: regular rhythm Peripheral pulses: Peripheral pulses 2+ throughout GI: Inspection: Yes normal to inspection Palpation (GI): Soft to palpation and nontender Auscultation: normal bowel sounds Back/Spine/Pelvis: Thoracic/Lumbar Spine: thoracic and lumbar spine normal to inspection Skin: General skin exam: no rashes or lesions noted Neuro: General: patient oriented x3, no focal motor deficits and normal sensat ion to monofilament Cranial nerves: Yes Equal, round and reactive pupils present Cognition (Neuro): normal cognition Speech: No Abnormal speech present Gait exam (Neuro): Normal gait present Motor exam (neuro): 5/5 motor strength present throughout Extrem: General: Yes normal to inspection, Yes no pedal edema and Yes no calf tenderness Course Course Course Narrative: Labs are unremarkable. EKG shows no ischemic changes. Chest x-ray negative infection. Likely musculoskeletal. Patient will be discharged home with ibuprofen and Flexeril p.r.n.. Reviewed worrisome signs and symptoms when to return to the emergency room. Comfortable plan for discharge home. MDM - Chest Pain MDM Narrative Medical decision making narrative: 41-year-old female here with chest and shoulder pain since yesterday which began at rest and is not exertional in nature, not pleuritic with no other associated symptoms. On exam seems well musculoskeletal EKG is nonischemic. Troponin is negative. Chest x-ray shows no evidence of pneumonia. All other labs are unremarkable. Perc is 0. Gradual onset so does not suggest dissection I did consider ACS, PE, pneumonia, aortic dissection Medical Records Data Attestation: I reviewed the patient's medical records. Lab Data Attestation: I reviewed the patient's lab results. Result diagrams: 07/13/22 13:20 07/13/22 13:20 Labs: Lab Results 07/13/22 07/13/22 07/13/22 Range/Units 13:20 13:20 13:20 WBC 9.4 (4.8-10.8) X10*3/uL RBC 4.94 (4.20-5.50) X10*6/uL Hgb 13.5 (12.0-16.0) g/dl Hct 41.2 (37.0-47.0) % MCV 83.4 (80.0-98.0) fL MCH 27.3 (27.0-33.0) pg MCHC 32.8 (31.0-35.0) g/dl RDW 13.4 (11.0-16.0) % Plt Count 269 (160-400) X10*3/uL MPV 9.7 (9.4-12.3) fL Immature Gran % (Auto) 0.3 (0.0-0.4) % Neut % (Auto) 69.1 (45-73) % Lymph % (Auto) 22.9 (20-40) % Stokes % (Auto) 6.2 (2-11) % Eos % (Auto) 1.3 (0-4) % Baso % (Auto) 0.2 (0-2) % Lymph # (Auto) 2.2 (1.2-4.9) X10*3/uL Stokes # (Auto) 0.6 (0.1-1.2) X10*3/uL Eos # (Auto) 0.1 (0.0-0.4) X10*3/uL Baso # (Auto) 0.0 (0.0-0.2) X10*3/uL Abs Immat Gran (auto) 0.03 (0.00-0.03) X10*3/uL Absolute Neuts (auto) 6.5 (2.0-8.3) x10*3/uL Absolute Nucleated RBC 0.000 (0.0-0.012) X10*3/uL Nucleated RBC % (auto) 0.0 (0.0-0.2) /100WBC Sodium 142 (135-145) mmol/L Potassium 3.7 (3.3-5.1) mmol/L Chloride 106 (96-108) mmol/L Carbon Dioxide 25 (22-29) mmol/L Anion Gap 15 (12-20) BUN 9 (9-16) mg/dL Creatinine 0.74 (0.5-1.4) mg/dL Estim Creat Clear Calc 102.2 Estimated GFR > 60 Random Glucose 149 H (60-115) mg/dL Calcium 9.4 (8.4-10.2) mg/dL Troponin I High Sens < 3.5 (<3.5-17.0) ng/L Imaging Data Chest x-ray: Attestation: I personally reviewed and interpreted this imaging study as follows: Radiologist's impression: [address] [address] XRay Report Signed Patient: Sacha Contreras MR#: [id number] : 1980 Acct:[id number] Age/Sex: 41 / F ADM Date: 07/13/22 Loc: HO.ED Attending Dr: Ordering Physician: Nica ED Physician Date of Service: 07/13/22 Procedure(s): XR chest 1V Accession Number(s): [id number] cc: Generic ED Physician~ EXAMINATION: XR CHEST CLINICAL INFORMATION: Chest pain COMPARISON: None TECHNIQUE: Frontal view of the chest was obtained. FINDINGS: No significant abnormality is noted involving the heart, lungs, mediastinum, bony thorax or soft tissues. There is right C7 cervical rib. XR/XR chest 1V IMPRESSION: Unremarkable chest examination. ? ECG Data ECG #1: Attestation: I personally reviewed and interpreted this ECG as follows: ECG interpretation date: 07/13/22 ECG interpretation time: 13:04 Interpretation: Normal sinus rhythm with rate 96, normal KS, normal QRS, normal Qt Discharge Plan Discharge Clinical Impression: Chest pain Patient Disposition: Home, Self-Care Instructions: Chest Pain (DC) Additional Instructions: [place] motrin seg?n sea necesario para el dolor, as? amanda flexeril. Smith electrocardiograma, radiograf?a de t?rax y laboratorios son tranquilizadores. Prescriptions: New ibuprofen 600 mg tablet 600 mg PO Q6H PRN (Reason: pain) Qty: 30 0RF cyclobenzaprine 10 mg tablet 10 mg PO TID PRN (Reason: muscle spasm) Qty: 10 0RF No Action (DME) pen needle, diabetic [BD Ultra-Fine Micro Pen Needle] 32 gauge x 1/4 needle See Rx Instructions .ROUTE .MEDSUPPLY Qty: 50 11RF Rx Instructions: Once a week pyridoxine (vitamin B6) 100 mg tablet 100 mg PO DAILY 90 Days Qty: 90 1RF (DME) FreeStyle Lite Strips Strip See Rx Instructions .ROUTE .MEDSUPPLY Qty: 100 11RF Rx Instructions: As directed Test blood glucose 3x daily. Jardiance 25 mg tablet 25 mg PO DAILY 30 Days Qty: 30 11RF metformin 1,000 mg tablet 1,000 mg PO BID 30 Days Qty: 60 11RF cholecalciferol (vitamin D3) 50 mcg (2,000 unit) capsule 50 mcg PO DAILY 30 Days Qty: 30 11RF lancets [TRUEplus Lancets] 33 gauge misc 1 gauge miscellaneous QID 30 Days Qty: 100 11RF atorvastatin 40 mg tablet 40 mg PO DAILY 30 Days Qty: 30 0RF Rx Instructions: MUST COMPLETE LABS FOR FURTHER REFILLS!! cyclobenzaprine 10 mg tablet 10 mg PO TID PRN (Reason: muscle spasm) Qty: 14 0RF albuterol sulfate 90 mcg/actuation Hfa Aerosol Inhaler 2 puff INHALATION Q4-6H PRN (Reason: Shortness Of Breath) ketorolac 10 mg tablet 10 mg PO Q8H PRN (Reason: pain) Qty: 10 0RF (DME) blood-glucose meter [FreeStyle Lite Meter] Kit See Rx Instructions .ROUTE .MEDSUPPLY Qty: 1 0RF Rx Instructions: As directed Trulicity 1.5 mg/0.5 mL pen injector 1.5 mg subcut QWEEK 30 Days Qty: 2.5 11RF terconazole 0.4 % cream 1 appful vaginal BEDTIME alcohol swabs [Alcohol Prep Pads] Pads, Medicated topical DAILY pantoprazole 40 mg tablet,delayed release (DR/EC) 40 mg PO DAILY albuterol sulfate 2.5 mg /3 mL (0.083 %) solution for nebulization inhalation TID PRN (Reason: wheezing) sennosides [Senna Laxative] 8.6 mg tablet 17.2 mg PO DAILY PRN (Reason: constipation) escitalopram oxalate 5 mg tablet 5 mg PO DAILY docusate sodium 100 mg capsule 100 mg PO BID PRN buspirone 10 mg tablet 10 mg PO TID vitamin A 10,000 unit capsule 1 cap PO DAILY magnesium oxide 400 mg (241.3 mg magnesium) tablet 200 mg PO DAILY tramadol 50 mg tablet 50 mg PO Q8H PRN (Reason: pain (scale score 1-3)) Qty: 14 0RF lisinopril 5 mg tablet 5 mg PO DAILY Qty: 30 5RF escitalopram oxalate 20 mg tablet 20 mg PO DAILY ibuprofen 600 mg tablet 600 mg PO Q6H sumatriptan succinate 50 mg tablet 50 mg PO Trulicity 0.75 mg/0.5 mL pen injector 0.75 mg subcut QWEEK clonazepam 0.5 mg tablet 0.5 mg PO DAILY PRN (Reason: anxiety) Referrals: Jaquelin Rivera MD [Primary Care Provider] - 1 week Interventions: ED Discharge Assessment Last Done: 07/13/22 15:15 Print Language: Sinhala
== END 2022-07-13 15:19 | disposition home or self-care (01) ==
LOC: HO.ED 15:12
PROVIDERS: Emergency Provider Emergency Medicine; PCP Internal Medicine
DX: R07.9 Chest pain, unspecified (principal); E11.9 Type 2 diabetes mellitus without complications; I10 Essential (primary) hypertension; E78.5 Hyperlipidemia, unspecified; Z79.02 Long term (current) use of antithrombotics/antiplatelets; Z79.899 Other long term (current) drug therapy; Z79.84 Long term (current) use of oral hypoglycemic drugs
CPT/HCPCS: 36415; 71045; 80048; 84484; 85025; 93005; 99283; 99284

== ENCOUNTER 2022-08-10 13:53 | Emergency (ER) | payer MEDICAID, SELFPAY ==
--- NOTE | ~2022-08-10 | XR_ITS ---
EXAMINATION: XR CHEST CLINICAL INFORMATION: Chest pain COMPARISON: None TECHNIQUE: 2 views of the chest were obtained. FINDINGS: No significant abnormality is noted involving the heart, lungs, mediastinum, bony thorax or soft tissues. XR/XR chest 2V IMPRESSION: Unremarkable chest examination.
[2022-08-10 14:00] VITALS: BP 142/96; PULSE 106; RESP 20; TEMP 37.3; O2SAT 98; BMI 36.3
--- NOTE | 2022-08-10 14:00 | ED.CHESTPAIN ---
HPI - Chest Pain General Chief Complaint: Dizziness Stated Complaint: dizzy chest pain Related Data Home Medications Medication Instructions Recorded Confirmed albuterol sulfate 90 mcg/actuation 2 puff inhalation Q4-6H PRN 10/01/20 06/29/22 aerosol inhaler Shortness Of Breath albuterol sulfate 2.5 mg/3 mL mg inhalation TID PRN wheezing 04/15/21 06/29/22 (0.083 %) solution for nebulization alcohol swabs (Alcohol Prep Pads) pad topical DAILY 04/15/21 06/29/22 buspirone 10 mg tablet 10 mg PO TID 04/15/21 06/29/22 docusate sodium 100 mg capsule 100 mg PO BID PRN 04/15/21 06/29/22 escitalopram oxalate 5 mg tablet 5 mg PO DAILY 04/15/21 06/29/22 magnesium oxide 400 mg (241.3 mg 200 mg PO DAILY 04/15/21 06/29/22 magnesium) tablet pantoprazole 40 mg tablet,delayed 40 mg PO DAILY 04/15/21 06/29/22 release sennosides 8.6 mg tablet (Senna 17.2 mg PO DAILY PRN constipation 04/15/21 06/29/22 Laxative) terconazole 0.4 % vaginal cream 1 appful vaginal BEDTIME 04/15/21 06/29/22 vitamin A 10,000 unit capsule 1 cap PO DAILY 04/15/21 06/29/22 escitalopram oxalate 20 mg tablet 20 mg PO DAILY 12/16/21 06/29/22 ibuprofen 600 mg tablet 600 mg PO Q6H 12/16/21 06/29/22 dulaglutide 0.75 mg/0.5 mL 0.75 mg subcut QWEEK 01/07/22 06/29/22 subcutaneous pen injector (Trulicity) sumatriptan succinate 50 mg tablet 50 mg PO migraine 01/07/22 06/29/22 clonazepam 0.5 mg tablet 0.5 mg PO DAILY PRN anxiety 02/03/22 06/29/22 Previous Rx's Medication Instructions Recorded blood-glucose meter (FreeStyle #1 ea 07/07/20 Lite Meter kit) pen needle, diabetic 32 gauge x #50 ea 09/26/2008/26 (BD Ultra-Fine Micro Pen Needle) cyclobenzaprine 10 mg tablet 10 mg PO TID PRN muscle spasm #14 09/30/20 tabs ketorolac 10 mg tablet 10 mg PO Q8H PRN pain #10 tabs 02/23/21 pyridoxine (vitamin B6) 100 mg 100 mg PO DAILY 90 days #90 tabs 04/07/21 tablet tramadol 50 mg tablet 50 mg PO Q8H PRN pain (scale score 04/15/21 1-3) #14 tabs dulaglutide 1.5 mg/0.5 mL 1.5 mg (0.5 mL) subcut QWEEK 30 01/01/22 subcutaneous pen injector days #2.5 mL (Trulicity) blood sugar diagnostic (FreeStyle #100 ea 01/22/22 Lite Strips) lisinopril 5 mg tablet 5 mg PO DAILY #30 tabs 02/18/22 empagliflozin 25 mg tablet 25 mg PO DAILY 30 days #30 tabs 02/25/22 (Jardiance) cholecalciferol (vitamin D3) 50 50 mcg PO DAILY 30 days #30 caps 03/10/22 mcg (2,000 unit) capsule metformin 1,000 mg tablet 1,000 mg PO BID 30 days #60 tabs 03/10/22 lancets 33 gauge (TRUEplus Lancets) 1 gauge miscellaneous QID for 03/17/22 diabetes mellitus 30 days #100 ea atorvastatin 40 mg tablet 40 mg PO DAILY 30 days #30 tabs 05/25/22 cyclobenzaprine 10 mg tablet 10 mg PO TID PRN muscle spasm #10 07/13/22 tabs ibuprofen 600 mg tablet 600 mg PO Q6H PRN pain #30 tabs 07/13/22 Allergies Allergy/AdvReac Type Severity Reaction Status Date / Time morphine [MORPHINE] Allergy Intermediate DIAPHORESIS; Verified 07/13/22 12:47 TACHYCARDIA, palpitations, sweating, tingling of hands and face quetiapine [From SEROQUEL] Allergy Intermediate PALPITATION Verified 07/13/22 12:47 S tomato Allergy Intermediate Blister Verified 07/13/22 12:47 trazodone [TRAZODONE] Allergy Intermediate GI Upset, Verified 07/13/22 12:47 HEART RACING, palpitations pineapple Allergy Mild unkno Verified 07/13/22 12:47 diphenhydramine Allergy Unknown HALLUCINATI Verified 07/13/22 12:47 [From BENADRYL] ONS prednisone [PREDNISONE] Allergy Unknown HEART RACES Verified 07/13/22 12:47 Seafood Allergy Unknown redness Uncoded 07/13/22 12:47 and itching PMFSH Past Medical History Medical History Anxiety Asthma Diabetes mellitus Elevated cholesterol Fatty liver GERD (gastroesophageal reflux disease) HLD (hyperlipidemia) HTN (hypertension) Migraines T2DM (type 2 diabetes mellitus) Transaminitis Vitamin D deficiency Surgical History H/O lithotripsy History of hysterectomy (~2011) History of local excision of skin lesion Family History Family History Father Heart disease Mother No problems noted. Social History Social History Alcohol intake: never Patient Tobacco Use Status: Never used Tobacco Second Hand Smoke Exposure: No Physical Exam Vital Signs: Vital Signs: Last Vital Signs Temp 99.1 F 08/10/22 14:00 Pulse 106 H 08/10/22 14:00 Resp 20 08/10/22 14:00 BP 142/96 H 08/10/22 14:00 Pulse Ox 98 08/10/22 14:00 O2 Del Method 08/10/22 14:00 BMI result Body Mass Index 36.3 Course Course Course Narrative: RME: Patient is a 41-year-old female with past medical history of diabetes, GERD, hyperlipidemia, hypertension, migraines, anxiety, asthma who presents to the emergency department for evaluation of dizziness and chest pain. States that she was diagnosed with the flu 1 week ago, did not take Tamiflu. She states 3 days ago she began experiencing intermittent dizziness, left sided chest pain intermittently, intermittent blurry vision, bilateral eyes are itching. Plan: Labs, EKG, urinalysis, COVID-19 testing Medical Decision Making Lab Data Result Diagrams: 08/10/22 15:10 08/10/22 15:10 Labs: Lab Results 08/10/22 08/10/22 08/10/22 Range/Units 15:10 15:10 15:10 WBC 9.3 (4.8-10.8) X10*3/uL RBC 5.10 (4.20-5.50) X10*6/uL Hgb 14.0 (12.0-16.0) g/dl Hct 42.6 (37.0-47.0) % MCV 83.5 (80.0-98.0) fL MCH 27.5 (27.0-33.0) pg MCHC 32.9 (31.0-35.0) g/dl RDW 13.2 (11.0-16.0) % Plt Count 315 (160-400) X10*3/uL MPV 9.9 (9.4-12.3) fL Immature Gran % (Auto) 0.3 (0.0-0.4) % Neut % (Auto) 67.8 (45-73) % Lymph % (Auto) 25.1 (20-40) % [place] % (Auto) 5.4 (2-11) % Eos % (Auto) 1.2 (0-4) % Baso % (Auto) 0.2 (0-2) % Lymph # (Auto) 2.3 (1.2-4.9) X10*3/uL [place] # (Auto) 0.5 (0.1-1.2) X10*3/uL Eos # (Auto) 0.1 (0.0-0.4) X10*3/uL Baso # (Auto) 0.0 (0.0-0.2) X10*3/uL Abs Immat Gran (auto) 0.03 (0.00-0.03) X10*3/uL Absolute Neuts (auto) 6.3 (2.0-8.3) x10*3/uL Absolute Nucleated RBC 0.000 (0.0-0.012) X10*3/uL Nucleated RBC % (auto) 0.0 (0.0-0.2) /100WBC Sodium 138 (135-145) mmol/L Potassium 4.1 (3.3-5.1) mmol/L Chloride 106 (96-108) mmol/L Carbon Dioxide 23 (22-29) mmol/L Anion Gap 13 (12-20) BUN 9 (9-16) mg/dL Creatinine 0.78 (0.5-1.4) mg/dL Estim Creat Clear Calc 101.7 Estimated GFR > 60 Random Glucose 100 (60-115) mg/dL Calcium 9.6 (8.4-10.2) mg/dL Magnesium 2.0 (1.6-2.6) mg/dL Total Bilirubin 0.4 (0.0-1.0) mg/dL AST 46 H (5-31) U/L ALT 50 H (0-31) U/L Alkaline Phosphatase 105 (39-117) U/L Troponin I High Sens < 3.5 (<3.5-17.0) ng/L Total Protein 7.9 (6.5-8.0) g/dL Albumin 4.5 (3.5-5.0) g/dL COVID-19 ([facility]) (Negative) COVID-19 Clin Com 08/10/22 Range/Units 15:10 WBC (4.8-10.8) X10*3/uL RBC (4.20-5.50) X10*6/uL Hgb (12.0-16.0) g/dl Hct (37.0-47.0) % MCV (80.0-98.0) fL MCH (27.0-33.0) pg MCHC (31.0-35.0) g/dl RDW (11.0-16.0) % Plt Count (160-400) X10*3/uL MPV (9.4-12.3) fL Immature Gran % (Auto) (0.0-0.4) % Neut % (Auto) (45-73) % Lymph % (Auto) (20-40) % [place] % (Auto) (2-11) % Eos % (Auto) (0-4) % Baso % (Auto) (0-2) % Lymph # (Auto) (1.2-4.9) X10*3/uL [place] # (Auto) (0.1-1.2) X10*3/uL Eos # (Auto) (0.0-0.4) X10*3/uL Baso # (Auto) (0.0-0.2) X10*3/uL Abs Immat Gran (auto) (0.00-0.03) X10*3/uL Absolute Neuts (auto) (2.0-8.3) x10*3/uL Absolute Nucleated RBC (0.0-0.012) X10*3/uL Nucleated RBC % (auto) (0.0-0.2) /100WBC Sodium (135-145) mmol/L Potassium (3.3-5.1) mmol/L Chloride (96-108) mmol/L Carbon Dioxide (22-29) mmol/L Anion Gap (12-20) BUN (9-16) mg/dL Creatinine (0.5-1.4) mg/dL Estim Creat Clear Calc Estimated GFR Random Glucose (60-115) mg/dL Calcium (8.4-10.2) mg/dL Magnesium (1.6-2.6) mg/dL Total Bilirubin (0.0-1.0) mg/dL AST (5-31) U/L ALT (0-31) U/L Alkaline Phosphatase (39-117) U/L Troponin I High Sens (<3.5-17.0) ng/L Total Protein (6.5-8.0) g/dL Albumin (3.5-5.0) g/dL COVID-19 ([facility]) Negative (Negative) COVID-19 Clin Com See Note Discharge Plan Discharge Clinical Impression: Chest pain Patient Disposition: Elopement Prescriptions: No Action (DME) pen needle, diabetic [BD Ultra-Fine Micro Pen Needle] 32 gauge x 1/4 needle See Rx Instructions .ROUTE .MEDSUPPLY Qty: 50 11RF Rx Instructions: Once a week pyridoxine (vitamin B6) 100 mg tablet 100 mg PO DAILY 90 Days Qty: 90 1RF (DME) FreeStyle Lite Strips Strip See Rx Instructions .ROUTE .MEDSUPPLY Qty: 100 11RF Rx Instructions: As directed Test blood glucose 3x daily. Jardiance 25 mg tablet 25 mg PO DAILY 30 Days Qty: 30 11RF metformin 1,000 mg tablet 1,000 mg PO BID 30 Days Qty: 60 11RF cholecalciferol (vitamin D3) 50 mcg (2,000 unit) capsule 50 mcg PO DAILY 30 Days Qty: 30 11RF lancets [TRUEplus Lancets] 33 gauge misc 1 gauge miscellaneous QID 30 Days Qty: 100 11RF atorvastatin 40 mg tablet 40 mg PO DAILY 30 Days Qty: 30 0RF Rx Instructions: MUST COMPLETE LABS FOR FURTHER REFILLS!! cyclobenzaprine 10 mg tablet 10 mg PO TID PRN (Reason: muscle spasm) Qty: 14 0RF albuterol sulfate 90 mcg/actuation Hfa Aerosol Inhaler 2 puff INHALATION Q4-6H PRN (Reason: Shortness Of Breath) ketorolac 10 mg tablet 10 mg PO Q8H PRN (Reason: pain) Qty: 10 0RF ibuprofen 600 mg tablet 600 mg PO Q6H PRN (Reason: pain) Qty: 30 0RF cyclobenzaprine 10 mg tablet 10 mg PO TID PRN (Reason: muscle spasm) Qty: 10 0RF (DME) blood-glucose meter [FreeStyle Lite Meter] Kit See Rx Instructions .ROUTE .MEDSUPPLY Qty: 1 0RF Rx Instructions: As directed Trulicity 1.5 mg/0.5 mL pen injector 1.5 mg subcut QWEEK 30 Days Qty: 2.5 11RF terconazole 0.4 % cream 1 appful vaginal BEDTIME alcohol swabs [Alcohol Prep Pads] Pads, Medicated topical DAILY pantoprazole 40 mg tablet,delayed release (DR/EC) 40 mg PO DAILY albuterol sulfate 2.5 mg /3 mL (0.083 %) solution for nebulization inhalation TID PRN (Reason: wheezing) sennosides [Senna Laxative] 8.6 mg tablet 17.2 mg PO DAILY PRN (Reason: constipation) escitalopram oxalate 5 mg tablet 5 mg PO DAILY docusate sodium 100 mg capsule 100 mg PO BID PRN buspirone 10 mg tablet 10 mg PO TID vitamin A 10,000 unit capsule 1 cap PO DAILY magnesium oxide 400 mg (241.3 mg magnesium) tablet 200 mg PO DAILY tramadol 50 mg tablet 50 mg PO Q8H PRN (Reason: pain (scale score 1-3)) Qty: 14 0RF lisinopril 5 mg tablet 5 mg PO DAILY Qty: 30 5RF escitalopram oxalate 20 mg tablet 20 mg PO DAILY ibuprofen 600 mg tablet 600 mg PO Q6H sumatriptan succinate 50 mg tablet 50 mg PO Trulicity 0.75 mg/0.5 mL pen injector 0.75 mg subcut QWEEK clonazepam 0.5 mg tablet 0.5 mg PO DAILY PRN (Reason: anxiety) Discharge Date/Time: 08/10/22 20:20
--- NOTE | 2022-08-10 14:06 | ECG_ITS ---
Test Reason : dizzy Blood Pressure : / mmHG Vent. Rate : 096 BPM Atrial Rate : 096 BPM P-R Int : 146 ms QRS Dur : 078 ms QT Int : 338 ms P-R-T Axes : 044 015 018 degrees QTc Int : 427 ms Normal sinus rhythm Minimal voltage criteria for LVH, may be normal variant ( R in aVL ) Borderline ECG When compared with ECG of 13-JUL-2022 13:04, No significant change was found Referred By: Mala Penn Electronically Signed By:Marshal Arriaza
[2022-08-10 15:17] LABS: MANUAL DIFF FLAG NO
[2022-08-10 15:24] LABS: Basophils Percent Auto 0.2 % (0-2); Eosinophils Absolute Auto 0.1 X10*3/uL (0.0-0.4); Eosinophils Percent Auto 1.2 % (0-4); Hematocrit 42.6 % (37.0-47.0); Imm Gran Abs Auto 0.03 X10*3/uL (0.00-0.03); Imm Gran Pct Auto 0.3 % (0.0-0.4); Lymphocytes Absolute Auto 2.3 X10*3/uL (1.2-4.9); Lymphocytes Percent Auto 25.1 % (20-40); Mean Corpuscular HGB Conc 32.9 g/dl (31.0-35.0); Mean Corpuscular Hemoglobin 27.5 pg (27.0-33.0); Mean Corpuscular Volume 83.5 fL (80.0-98.0); Mean Platelet Volume 9.9 fL (9.4-12.3); Monocytes Absolute Auto 0.5 X10*3/uL (0.1-1.2); Monocytes Percent Auto 5.4 % (2-11); Neutrophils Absolute Auto 6.3 x10*3/uL (2.0-8.3); Neutrophils Percent Auto 67.8 % (45-73); Platelet Count 315 X10*3/uL (160-400); Red Cell Distribution Width 13.2 % (11.0-16.0); White Blood Count 9.3 X10*3/uL (4.8-10.8)
[2022-08-10 15:38] LABS: COVID-19 Test Negative (Negative); IDNOW Serial# 9DB6401D
[2022-08-10 15:47] LABS: Alanine Aminotransferase 50 U/L (0-31); Albumin Level 4.5 g/dL (3.5-5.0); Alkaline Phosphatase 105 U/L (39-117); Anion Gap 13 (12-20); Aspartate Amino Transferase 46 U/L (5-31); Bilirubin Total 0.4 mg/dL (0.0-1.0); Blood Urea Nitrogen 9 mg/dL (9-16); Calcium 9.6 mg/dL (8.4-10.2); Carbon Dioxide 23 mmol/L (22-29); Chloride 106 mmol/L (96-108); Creatinine Clr Calc Pharmacy 101.7; Estimated Glomerular Filt Rate > 60; Glucose Random 100 mg/dL (60-115); Potassium 4.1 mmol/L (3.3-5.1); Sodium 138 mmol/L (135-145); Total Protein 7.9 g/dL (6.5-8.0)
[2022-08-10 16:06] LABS: Troponin-I High Sensitivity < 3.5 ng/L (<3.5-17.0)
== END 2022-08-10 20:20 | disposition left against medical advice (07) ==
PROVIDERS: Nurse Practitioner Family; Emergency Provider Emergency Medicine
DX: R07.89 Other chest pain (principal); R42 Dizziness and giddiness; Z20.822 Contact with and (suspected) exposure to COVID-19; Z79.899 Other long term (current) drug therapy
CPT/HCPCS: 71046; 80053; 83735; 84484; 85025; 87635; 93005; 99283

== ENCOUNTER 2022-08-11 10:44 | Emergency (ER) | payer MEDICAID, SELFPAY ==
[2022-08-11 10:48] VITALS: BP 128/87; PULSE 100; RESP 18; TEMP 36.1; O2SAT 98; BMI 39.0
--- NOTE | 2022-08-11 10:50 | ECG_ITS ---
Test Reason : cp Blood Pressure : / mmHG Vent. Rate : 093 BPM Atrial Rate : 093 BPM P-R Int : 140 ms QRS Dur : 084 ms QT Int : 356 ms P-R-T Axes : 043 017 016 degrees QTc Int : 442 ms Normal sinus rhythm Normal ECG When compared with ECG of 10-AUG-2022 14:56, No significant change was found Referred By: Generic ED Physician Electronically Signed By:Marshal Arriaza
[2022-08-11 11:08] LABS: MANUAL DIFF FLAG NO
[2022-08-11 11:09] LABS: Basophils Percent Auto 0.2 % (0-2); Eosinophils Absolute Auto 0.2 X10*3/uL (0.0-0.4); Eosinophils Percent Auto 1.8 % (0-4); Hematocrit 42.1 % (37.0-47.0); Hemoglobin 13.8 g/dl (12.0-16.0); Imm Gran Abs Auto 0.01 X10*3/uL (0.00-0.03); Imm Gran Pct Auto 0.1 % (0.0-0.4); Lymphocytes Absolute Auto 2.5 X10*3/uL (1.2-4.9); Lymphocytes Percent Auto 30.5 % (20-40); Mean Corpuscular HGB Conc 32.8 g/dl (31.0-35.0); Mean Corpuscular Hemoglobin 27.4 pg (27.0-33.0); Mean Corpuscular Volume 83.7 fL (80.0-98.0); Monocytes Absolute Auto 0.5 X10*3/uL (0.1-1.2); Monocytes Percent Auto 5.7 % (2-11); Neutrophils Absolute Auto 5.1 x10*3/uL (2.0-8.3); Neutrophils Percent Auto 61.7 % (45-73); Platelet Count 293 X10*3/uL (160-400); Red Blood Count 5.03 X10*6/uL (4.20-5.50); Red Cell Distribution Width 13.3 % (11.0-16.0); White Blood Count 8.3 X10*3/uL (4.8-10.8)
[2022-08-11 11:32] LABS: IDNOW Serial# BCCEAD1C; Influenza A Negative (Negative); Influenza B2 Negative (Negative)
[2022-08-11 11:47] LABS: Alanine Aminotransferase 55 U/L (0-31); Albumin Level 4.6 g/dL (3.5-5.0); Alkaline Phosphatase 95 U/L (39-117); Anion Gap 13 (12-20); Aspartate Amino Transferase 52 U/L (5-31); Blood Urea Nitrogen 9 mg/dL (9-16); Calcium 9.7 mg/dL (8.4-10.2); Carbon Dioxide 24 mmol/L (22-29); Chloride 107 mmol/L (96-108); Creatinine Clr Calc Pharmacy 91.9; Estimated Glomerular Filt Rate > 60; Glucose Random 120 mg/dL (60-115); Potassium 3.9 mmol/L (3.3-5.1); Sodium 140 mmol/L (135-145)
[2022-08-11 12:06] LABS: Troponin-I High Sensitivity < 2.7 ng/L (<3.5-17.0)
[2022-08-11 12:47] LABS: Bilirubin Total 0.5 mg/dL (0.0-1.0)
[2022-08-11 19:15] VITALS: BP 125/86; PULSE 91; RESP 17; TEMP 36.1; O2SAT 99
--- NOTE | 2022-08-11 19:16 | ED_ITS ---
HPI - General Adult General Chief complaint: General Medical Stated complaint: Chest pain/Dizziness Time Seen by Provider: 08/11/22 19:18 Source: patient Mode of arrival: ambulatory Limitations: no limitations History of Present Illness HPI narrative: Patient is a 41-year-old female with past medical history of diabetes, GERD, hyperlipidemia, hypertension, migraines, anxiety, asthma who presents to the emergency department for evaluation of dizziness and chest pain.? States that she was diagnosed with the flu 1 week ago, did not take Tamiflu.? She states 3 days ago she began experiencing intermittent dizziness, left sided chest pain intermittently. She also has generalized fatigue. Related Data Home Medications Medication Instructions Recorded Confirmed albuterol sulfate 90 mcg/actuation 2 puff inhalation Q4-6H PRN 10/01/20 06/29/22 aerosol inhaler Shortness Of Breath albuterol sulfate 2.5 mg/3 mL mg inhalation TID PRN wheezing 04/15/21 06/29/22 (0.083 %) solution for nebulization alcohol swabs (Alcohol Prep Pads) pad topical DAILY 04/15/21 06/29/22 buspirone 10 mg tablet 10 mg PO TID 04/15/21 06/29/22 docusate sodium 100 mg capsule 100 mg PO BID PRN 04/15/21 06/29/22 escitalopram oxalate 5 mg tablet 5 mg PO DAILY 04/15/21 06/29/22 magnesium oxide 400 mg (241.3 mg 200 mg PO DAILY 04/15/21 06/29/22 magnesium) tablet pantoprazole 40 mg tablet,delayed 40 mg PO DAILY 04/15/21 06/29/22 release sennosides 8.6 mg tablet (Senna 17.2 mg PO DAILY PRN constipation 04/15/21 06/29/22 Laxative) terconazole 0.4 % vaginal cream 1 appful vaginal BEDTIME 04/15/21 06/29/22 vitamin A 10,000 unit capsule 1 cap PO DAILY 04/15/21 06/29/22 escitalopram oxalate 20 mg tablet 20 mg PO DAILY 12/16/21 06/29/22 ibuprofen 600 mg tablet 600 mg PO Q6H 12/16/21 06/29/22 dulaglutide 0.75 mg/0.5 mL 0.75 mg subcut QWEEK 01/07/22 06/29/22 subcutaneous pen injector (Trulicity) sumatriptan succinate 50 mg tablet 50 mg PO migraine 01/07/22 06/29/22 clonazepam 0.5 mg tablet 0.5 mg PO DAILY PRN anxiety 02/03/22 06/29/22 Previous Rx's Medication Instructions Recorded blood-glucose meter (FreeStyle #1 ea 07/07/20 Lite Meter kit) pen needle, diabetic 32 gauge x #50 ea 09/26/2008/26 (BD Ultra-Fine Micro Pen Needle) cyclobenzaprine 10 mg tablet 10 mg PO TID PRN muscle spasm #14 09/30/20 tabs ketorolac 10 mg tablet 10 mg PO Q8H PRN pain #10 tabs 02/23/21 pyridoxine (vitamin B6) 100 mg 100 mg PO DAILY 90 days #90 tabs 04/07/21 tablet tramadol 50 mg tablet 50 mg PO Q8H PRN pain (scale score 04/15/21 1-3) #14 tabs dulaglutide 1.5 mg/0.5 mL 1.5 mg (0.5 mL) subcut QWEEK 30 01/01/22 subcutaneous pen injector days #2.5 mL (Trulicity) blood sugar diagnostic (FreeStyle #100 ea 01/22/22 Lite Strips) lisinopril 5 mg tablet 5 mg PO DAILY #30 tabs 02/18/22 empagliflozin 25 mg tablet 25 mg PO DAILY 30 days #30 tabs 02/25/22 (Jardiance) cholecalciferol (vitamin D3) 50 50 mcg PO DAILY 30 days #30 caps 03/10/22 mcg (2,000 unit) capsule metformin 1,000 mg tablet 1,000 mg PO BID 30 days #60 tabs 03/10/22 lancets 33 gauge (TRUEplus Lancets) 1 gauge miscellaneous QID for 03/17/22 diabetes mellitus 30 days #100 ea atorvastatin 40 mg tablet 40 mg PO DAILY 30 days #30 tabs 05/25/22 cyclobenzaprine 10 mg tablet 10 mg PO TID PRN muscle spasm #10 07/13/22 tabs ibuprofen 600 mg tablet 600 mg PO Q6H PRN pain #30 tabs 07/13/22 Allergies Allergy/AdvReac Type Severity Reaction Status Date / Time morphine [MORPHINE] Allergy Intermediate DIAPHORESIS; Verified 07/13/22 12:47 TACHYCARDIA, palpitations, sweating, tingling of hands and face quetiapine [From SEROQUEL] Allergy Intermediate PALPITATION Verified 07/13/22 12:47 S tomato Allergy Intermediate Blister Verified 07/13/22 12:47 trazodone [TRAZODONE] Allergy Intermediate GI Upset, Verified 07/13/22 12:47 HEART RACING, palpitations pineapple Allergy Mild unkno Verified 07/13/22 12:47 diphenhydramine Allergy Unknown HALLUCINATI Verified 07/13/22 12:47 [From BENADRYL] ONS prednisone [PREDNISONE] Allergy Unknown HEART RACES Verified 07/13/22 12:47 Seafood Allergy Unknown redness Uncoded 07/13/22 12:47 and itching Review of Systems Review of Systems: Constitutional: No weight loss, fever, chills, weakness. Positive fatigue Skin: No rash or itching. Cardiovascular: Positive chest pain. No palpitations or pedal edema. Respiratory: No shortness of breath, cough or sputum production. Gastrointestinal: No anorexia, nausea, vomiting or diarrhea. No abdominal pain or blood in stool. Genitourinary: No burning micturition. No urinary frequency or incontinence. Musculoskeletal: No muscle pain, back pain, joint pain or stiffness. Neurologic: Positive dizziness. No headache. No syncope. Psychiatric: No depression or anxiety. Yes all other systems are reviewed and are negative [facility] Past Medical History Attestation statement: The following information was validated with the patient. Source: old records reviewed Medical History Anxiety Asthma Diabetes mellitus Elevated cholesterol Fatty liver GERD (gastroesophageal reflux disease) HLD (hyperlipidemia) HTN (hypertension) Migraines T2DM (type 2 diabetes mellitus) Transaminitis Vitamin D deficiency Surgical History H/O lithotripsy History of hysterectomy (~2011) History of local excision of skin lesion Family History Family History Father Heart disease Mother No problems noted. Social History Social History Alcohol intake: never Patient Tobacco Use Status: Never used Tobacco Second Hand Smoke Exposure: No Advance Directives: No Advance Directives Information Provided: No Physical Exam ED Vital Signs: Vital Signs - 24 hr 08/11/22 10:48 08/11/22 19:15 Temperature 96.9 F 96.9 F Pulse Rate 100 91 Respiratory Rate 18 17 Blood Pressure 128/87 125/86 Pulse Oximetry 98 99 Oxygen Delivery Method Room Air Room Air BMI result Body Mass Index 39.0 Appearance: Alert.?Oriented to person, place and time. No acute distress.?Normal affect. Eyes: Pupils equal, round and reactive to light.? ENT: Pharynx normal.?? Neck: Normal inspection.? Neck supple.?? CVS: Heart sounds normal. Normal heart rate and rhythm.? Pulses normal.?? Respiratory: No respiratory distress.? Lung sounds clear to auscultation b ilaterally?? Abdomen: Soft and non-tender. Normoactive bowel sounds.? Skin: Skin warm and dry.? Normal skin color.? Extremities: No lower extremity edema.? No calf ttp? Neuro: Moves all extremities spontaneously. Sensation intact bilaterally. No focal neuro deficits. Ambulates with normal steady gait. Course Course Course Narrative: Patient is a 41-year-old female with a past medical history of anxiety, diabet es, hyperlipidemia, GERD, hypertension who presents to the emergency department for evaluation of chest pain, intermittent dizziness and fatigue. She was seen here yesterday for similar complaints but eloped from the waiting room. Had labs obtained from initial triage today. Reviewed labs obtained yesterday and today; CBC within normal limits both times, mildly elevated AST and ALT, with benign abdominal examination, no right upper quadrant tenderness, negative Gutierrez sign, no nausea vomiting, not consistent with acute abdomen. Troponin undetectable yesterday and today; EKG revealing normal sinus rhythm with ventricular rate of 93, QTC 442, no ST elevation, no ST depression, compares unc hanged when compared to EKG obtained yesterday and in June 2022, not consistent with ACS. Chest x-ray obtained yesterday reveals no acute cardiopulmonary process, not consistent with pneumonia. At this time she is without dizziness or headache, no nuchal rigidity, no meningismus, low suspicion for meningitis. Dizziness is transient. Discussed with patient symptoms may be due to recent viral infection, advised continued rest, encouraging oral fluids and small frequent meals. Discussed outpatient follow-up with primary care provider within the next week. Discussed worsening signs and symptoms to return back to emergency department for. All questions were answered. Discharged home in stable condition. Medical Decision Making Lab Data Result Diagrams: 08/11/22 11:08/11/22 11:01 Labs: Lab Results 08/11/22 08/11/22 08/11/22 Range/Units 11: 11: 11:01 WBC 8.3 (4.8-10.8) X10*3/uL RBC 5.03 (4.20-5.50) X10*6/uL Hgb 13.8 (12.0-16.0) g/dl Hct 42.1 (37.0-47.0) % MCV 83.7 (80.0-98.0) fL MCH 27.4 (27.0-33.0) pg MCHC 32.8 (31.0-35.0) g/dl RDW 13.3 (11.0-16.0) % Plt Count 293 (160-400) X10*3/uL MPV 10.0 (9.4-12.3) fL Immature Gran % (Auto) 0.1 (0.0-0.4) % Neut % (Auto) 61.7 (45-73) % Lymph % (Auto) 30.5 (20-40) % [place] % (Auto) 5.7 (2-11) % Eos % (Auto) 1.8 (0-4) % Baso % (Auto) 0.2 (0-2) % Lymph # (Auto) 2.5 (1.2-4.9) X10*3/uL [place] # (Auto) 0.5 (0.1-1.2) X10*3/uL Eos # (Auto) 0.2 (0.0-0.4) X10*3/uL Baso # (Auto) 0.0 (0.0-0.2) X10*3/uL Abs Immat Gran (auto) 0.01 (0.00-0.03) X10*3/uL Absolute Neuts (auto) 5.1 (2.0-8.3) x10*3/uL Absolute Nucleated RBC 0.000 (0.0-0.012) X10*3/uL Nucleated RBC % (auto) 0.0 (0.0-0.2) /100WBC Sodium 140 (135-145) mmol/L Potassium 3.9 (3.3-5.1) mmol/L Chloride 107 (96-108) mmol/L Carbon Dioxide 24 (22-29) mmol/L Anion Gap 13 (12-20) BUN 9 (9-16) mg/dL Creatinine 0.80 (0.5-1.4) mg/dL Estim Creat Clear Calc 91.9 Estimated GFR > 60 Random Glucose 120 H (60-115) mg/dL Calcium 9.7 (8.4-10.2) mg/dL Total Bilirubin 0.5 (0.0-1.0) mg/dL AST 52 H (5-31) U/L ALT 55 H (0-31) U/L Alkaline Phosphatase 95 (39-117) U/L Troponin I High Sens < 2.7 (<3.5-17.0) ng/L Total Protein 8.0 (6.5-8.0) g/dL Albumin 4.6 (3.5-5.0) g/dL Influenza Type A (VICKY) (Negative) Influenza Type B (VICKY) (Negative) Influenza A & B Note 08/11/22 Range/Units 11:01 WBC (4.8-10.8) X10*3/uL RBC (4.20-5.50) X10*6/uL Hgb (12.0-16.0) g/dl Hct (37.0-47.0) % MCV (80.0-98.0) fL MCH (27.0-33.0) pg MCHC (31.0-35.0) g/dl RDW (11.0-16.0) % Plt Count (160-400) X10*3/uL MPV (9.4-12.3) fL Immature Gran % (Auto) (0.0-0.4) % Neut % (Auto) (45-73) % Lymph % (Auto) (20-40) % [place] % (Auto) (2-11) % Eos % (Auto) (0-4) % Baso % (Auto) (0-2) % Lymph # (Auto) (1.2-4.9) X10*3/uL [place] # (Auto) (0.1-1.2) X10*3/uL Eos # (Auto) (0.0-0.4) X10*3/uL Baso # (Auto) (0.0-0.2) X10*3/uL Abs Immat Gran (auto) (0.00-0.03) X10*3/uL Absolute Neuts (auto) (2.0-8.3) x10*3/uL Absolute Nucleated RBC (0.0-0.012) X10*3/uL Nucleated RBC % (auto) (0.0-0.2) /100WBC Sodium (135-145) mmol/L Potassium (3.3-5.1) mmol/L Chloride (96-108) mmol/L Carbon Dioxide (22-29) mmol/L Anion Gap (12-20) BUN (9-16) mg/dL Creatinine (0.5-1.4) mg/dL Estim Creat Clear Calc Estimated GFR Random Glucose (60-115) mg/dL Calcium (8.4-10.2) mg/dL Total Bilirubin (0.0-1.0) mg/dL AST (5-31) U/L ALT (0-31) U/L Alkaline Phosphatase (39-117) U/L Troponin I High Sens (<3.5-17.0) ng/L Total Protein (6.5-8.0) g/dL Albumin (3.5-5.0) g/dL Influenza Type A (VICKY) Negative (Negative) Influenza Type B (VICKY) Negative (Negative) Influenza A & B Note See Note Discharge Plan Discharge Clinical Impression: Costochondritis, Dizziness Patient Disposition: Home, Self-Care Additional Instructions: As discussed, your blood work, EKG, chest x-ray, are normal and viral tests are negative. This is all very reassuring. The pain in your chest is most likely due to an inflammation of the chest muscles. Please be sure the or staying well hydrated, getting rest, using Tylenol or i buprofen as needed for pain. As discussed, you should follow-up with your primary care provider within the next week for continued symptoms Return to emergency department with any new or worsening symptoms or concerns Prescriptions: No Action (DME) pen needle, diabetic [BD Ultra-Fine Micro Pen Needle] 32 gauge x 1/4 needle See Rx Instructions .ROUTE .MEDSUPPLY Qty: 50 11RF Rx Instructions: Once a week pyridoxine (vitamin B6) 100 mg tablet 100 mg PO DAILY 90 Days Qty: 90 1RF (DME) FreeStyle Lite Strips Strip See Rx Instructions .ROUTE .MEDSUPPLY Qty: 100 11RF Rx Instructions: As directed Test blood glucose 3x daily. Jardiance 25 mg tablet 25 mg PO DAILY 30 Days Qty: 30 11RF metformin 1,000 mg tablet 1,000 mg PO BID 30 Days Qty: 60 11RF cholecalciferol (vitamin D3) 50 mcg (2,000 unit) capsule 50 mcg PO DAILY 30 Days Qty: 30 11RF lancets [TRUEplus Lancets] 33 gauge misc 1 gauge miscellaneous QID 30 Days Qty: 100 11RF atorvastatin 40 mg tablet 40 mg PO DAILY 30 Days Qty: 30 0RF Rx Instructions: MUST COMPLETE LABS FOR FURTHER REFILLS!! cyclobenzaprine 10 mg tablet 10 mg PO TID PRN (Reason: muscle spasm) Qty: 14 0RF albuterol sulfate 90 mcg/actuation Hfa Aerosol Inhaler 2 puff INHALATION Q4-6H PRN (Reason: Shortness Of Breath) ketorolac 10 mg tablet 10 mg PO Q8H PRN (Reason: pain) Qty: 10 0RF ibuprofen 600 mg tablet 600 mg PO Q6H PRN (Reason: pain) Qty: 30 0RF cyclobenzaprine 10 mg tablet 10 mg PO TID PRN (Reason: muscle spasm) Qty: 10 0RF (DME) blood-glucose meter [FreeStyle Lite Meter] Kit See Rx Instructions .ROUTE .MEDSUPPLY Qty: 1 0RF Rx Instructions: As directed Trulicity 1.5 mg/0.5 mL pen injector 1.5 mg subcut QWEEK 30 Days Qty: 2.5 11RF terconazole 0.4 % cream 1 appful vaginal BEDTIME alcohol swabs [Alcohol Prep Pads] Pads, Medicated topical DAILY pantoprazole 40 mg tablet,delayed release (DR/EC) 40 mg PO DAILY albuterol sulfate 2.5 mg /3 mL (0.083 %) solution for nebulization inhalation TID PRN (Reason: wheezing) sennosides [Senna Laxative] 8.6 mg tablet 17.2 mg PO DAILY PRN (Reason: constipation) escitalopram oxalate 5 mg tablet 5 mg PO DAILY docusate sodium 100 mg capsule 100 mg PO BID PRN buspirone 10 mg tablet 10 mg PO TID vitamin A 10,000 unit capsule 1 cap PO DAILY magnesium oxide 400 mg (241.3 mg magnesium) tablet 200 mg PO DAILY tramadol 50 mg tablet 50 mg PO Q8H PRN (Reason: pain (scale score 1-3)) Qty: 14 0RF lisinopril 5 mg tablet 5 mg PO DAILY Qty: 30 5RF escitalopram oxalate 20 mg tablet 20 mg PO DAILY ibuprofen 600 mg tablet 600 mg PO Q6H sumatriptan succinate 50 mg tablet 50 mg PO Trulicity 0.75 mg/0.5 mL pen injector 0.75 mg subcut QWEEK clonazepam 0.5 mg tablet 0.5 mg PO DAILY PRN (Reason: anxiety) Referrals: Physician,Unknown J [Primary Care Provider] - Interventions: ED Discharge Assessment Last Done: 08/11/22 19:31 Discharge Date/Time: 08/11/22 19:34
== END 2022-08-11 19:34 | disposition home or self-care (01) ==
PROVIDERS: Emergency Provider Emergency Medicine
DX: M94.0 Chondrocostal junction syndrome [Tietze] (principal); R42 Dizziness and giddiness; E11.9 Type 2 diabetes mellitus without complications; E78.5 Hyperlipidemia, unspecified; I10 Essential (primary) hypertension; K21.9 Gastro-esophageal reflux disease without esophagitis; F41.9 Anxiety disorder, unspecified; Z79.899 Other long term (current) drug therapy; Z79.85 Long-term (current) use of injectable non-insulin antidiabetic drugs; Z79.02 Long term (current) use of antithrombotics/antiplatelets; Z79.84 Long term (current) use of oral hypoglycemic drugs
CPT/HCPCS: 80053; 84484; 85025; 87502; 93005; 99283

== ENCOUNTER 2022-08-21 13:19 | Emergency (ER) | payer MEDICAID, SELFPAY ==
--- NOTE | ~2022-08-21 | XR_ITS ---
EXAMINATION: XR CHEST CLINICAL INFORMATION: Chest pain, SOB. COMPARISON: Chest x-ray 08/10/2022 TECHNIQUE: 2 views of the chest were obtained. FINDINGS: The lungs are well-expanded and clear of acute pneumonic process. There is platelike atelectasis right midlung. Rest of lungs are clear. The heart size and pulmonary vascularity is normal. No gross bony abnormality seen. XR/XR chest 2V IMPRESSION: Platelike atelectasis right middle lobe.
--- NOTE | ~2022-08-21 | CT_ITS ---
EXAMINATION: CT CHEST WITHOUT CONTRAST CLINICAL INFORMATION: Cough. COMPARISON: None TECHNIQUE: Multidetector volumetric CT imaging of the chest was done. Axial MIP volume rendering provided. Sagittal and coronal reformatted images were obtained. This CT examination was performed using dose optimization techniques as appropriate, variously including the following: *Automated exposure control *Adjustment of mA and/or kV according to patient size (this includes techniques or standardized protocols for targeted exams where dose is matched to indication/reason for exam; i.e. extremities or head) *Use of iterative reconstruction technique DLP: 327 mGy-cm FINDINGS: DIRECTOR DIGITAL STRATEGY: Unremarkable chest exam LUNGS: The lungs are clear with no evidence of inflammation or nodules. MEDIASTINUM: The mediastinum is normal. CORONARY ARTERY CALCIFICATION: None visualized on this study. PLEURA: There is no pleural effusion. No pleural mass or thickening. AXILLA: Small shotty lymph nodes are seen in the axilla. The chest wall is unremarkable. UPPER ABDOMEN: The liver is normal size and contour but diffusely attenuated. No focal lesion seen. No intrahepatic ductal dilatation. Spleen, pancreas and bilateral adrenal glands are unremarkable. Partially visualized gallbladder is unremarkable. OSSEOUS STRUCTURES: There is exaggerated thoracic kyphosis but otherwise no aggressive lytic or sclerotic process seen. CT/CT chest wo IV con IMPRESSION: Unremarkable CT chest exam. Fleischner guidelines were followed.
--- NOTE | 2022-08-21 14:40 | ED_ITS ---
HPI - SOB/Dyspnea General Chief Complaint: General Medical <Mala Penn CNP - Last Filed: 08/21/22 14:47> Stated Complaint: SOB <Mala Penn CNP - Last Filed: 08/21/22 14:47> Time Seen by Provider: 08/21/22 18:56 <Mala Penn CNP - Last Filed: 08/21/22 14:47> Source: patient <Jenifer Donovan MD - Last Filed: 08/21/22 23:17> Mode of arrival: ambulatory <Jenifer Donovan MD - Last Filed: 08/21/22 23:17> Limitations: no limitations <Jenifer Donovan MD - Last Filed: 08/21/22 23:17> History of Present Illness HPI Narrative: Patient comes in the emergency room complaining chest pain, shortness of breath, sometimes lying down, sometimes randomly. Patient has been seen here 3 times within a week for the same complaint. At this time, patient does not have chest pain or shortness of breath. <Jenifer Donovan MD - Last Filed: 08/21/22 23:17> Related Data Home Medications: Home Medications Medication Instructions Recorded Confirmed albuterol sulfate 90 mcg/actuation 2 puff inhalation Q4-6H PRN 10/01/20 06/29/22 aerosol inhaler Shortness Of Breath albuterol sulfate 2.5 mg/3 mL mg inhalation TID PRN wheezing 04/15/21 06/29/22 (0.083 %) solution for nebulization alcohol swabs (Alcohol Prep Pads) pad topical DAILY 04/15/21 06/29/22 buspirone 10 mg tablet 10 mg PO TID 04/15/21 06/29/22 docusate sodium 100 mg capsule 100 mg PO BID PRN 04/15/21 06/29/22 escitalopram oxalate 5 mg tablet 5 mg PO DAILY 04/15/21 06/29/22 magnesium oxide 400 mg (241.3 mg 200 mg PO DAILY 04/15/21 06/29/22 magnesium) tablet pantoprazole 40 mg tablet,delayed 40 mg PO DAILY 04/15/21 06/29/22 release sennosides 8.6 mg tablet (Senna 17.2 mg PO DAILY PRN constipation 04/15/21 06/29/22 Laxative) terconazole 0.4 % vaginal cream 1 appful vaginal BEDTIME 04/15/21 06/29/22 vitamin A 10,000 unit capsule 1 cap PO DAILY 04/15/21 06/29/22 escitalopram oxalate 20 mg tablet 20 mg PO DAILY 12/16/21 06/29/22 ibuprofen 600 mg tablet 600 mg PO Q6H 12/16/21 06/29/22 dulaglutide 0.75 mg/0.5 mL 0.75 mg subcut QWEEK 01/07/22 06/29/22 subcutaneous pen injector (Trulicity) sumatriptan succinate 50 mg tablet 50 mg PO migraine 01/07/22 06/29/22 clonazepam 0.5 mg tablet 0.5 mg PO DAILY PRN anxiety 02/03/22 06/29/22 Previous Rx's Medication Instructions Recorded blood-glucose meter (FreeStyle #1 ea 07/07/20 Lite Meter kit) pen needle, diabetic 32 gauge x #50 ea 09/26/2008/26 (BD Ultra-Fine Micro Pen Needle) cyclobenzaprine 10 mg tablet 10 mg PO TID PRN muscle spasm #14 09/30/20 tabs ketorolac 10 mg tablet 10 mg PO Q8H PRN pain #10 tabs 02/23/21 pyridoxine (vitamin B6) 100 mg 100 mg PO DAILY 90 days #90 tabs 04/07/21 tablet tramadol 50 mg tablet 50 mg PO Q8H PRN pain (scale score 04/15/21 1-3) #14 tabs dulaglutide 1.5 mg/0.5 mL 1.5 mg (0.5 mL) subcut QWEEK 30 01/01/22 subcutaneous pen injector days #2.5 mL (Trulicity) blood sugar diagnostic (FreeStyle #100 ea 01/22/22 Lite Strips) lisinopril 5 mg tablet 5 mg PO DAILY #30 tabs 02/18/22 empagliflozin 25 mg tablet 25 mg PO DAILY 30 days #30 tabs 02/25/22 (Jardiance) cholecalciferol (vitamin D3) 50 50 mcg PO DAILY 30 days #30 caps 03/10/22 mcg (2,000 unit) capsule metformin 1,000 mg tablet 1,000 mg PO BID 30 days #60 tabs 03/10/22 lancets 33 gauge (TRUEplus Lancets) 1 gauge miscellaneous QID for 03/17/22 diabetes mellitus 30 days #100 ea atorvastatin 40 mg tablet 40 mg PO DAILY 30 days #30 tabs 05/25/22 cyclobenzaprine 10 mg tablet 10 mg PO TID PRN muscle spasm #10 07/13/22 tabs ibuprofen 600 mg tablet 600 mg PO Q6H PRN pain #30 tabs 07/13/22 <Mala Penn DISINTEGRATOR - Last Filed: 08/21/22 14:47> Allergies/Adverse Reactions: Allergies Allergy/AdvReac Type Severity Reaction Status Date / Time morphine [MORPHINE] Allergy Intermediate DIAPHORESIS; Verified 07/13/22 12:47 TACHYCARDIA, palpitations, sweating, tingling of hands and face quetiapine [From SEROQUEL] Allergy Intermediate PALPITATION Verified 07/13/22 12:47 S tomato Allergy Intermediate Blister Verified 07/13/22 12:47 trazodone [TRAZODONE] Allergy Intermediate GI Upset, Verified 07/13/22 12:47 HEART RACING, palpitations pineapple Allergy Mild unkno Verified 07/13/22 12:47 diphenhydramine Allergy Unknown HALLUCINATI Verified 07/13/22 12:47 [From BENADRYL] ONS prednisone [PREDNISONE] Allergy Unknown HEART RACES Verified 07/13/22 12:47 Seafood Allergy Unknown redness Uncoded 07/13/22 12:47 and itching <Mala Penn [facility] - Last Filed: 08/21/22 14:47> Review of Systems Review of Systems: Constitutional : No Weight loss, No Fever, No Chills, No Night Sweats, No Fatigue, No Malaise ENT/Mouth : No Hearing loss, No Ear Pain, No Nasal Congestion, No Sinus Pain, No Hoarseness, No sore throat, No Rhinorrhea, No Swallowing Difficulty Eyes: No Eye Pain, No Swelling, No Redness, No Foreign Body, No Discharge, No V ision Changes Cardiovascular : No Chest Pain, complaining of intermittent shortness of breath, no orthopnea Respiratory : No Cough, No Sputum, No Wheezing, No Smoke Exposure Gastrointestinal : No Nausea, No Vomiting, No Diarrhea, No Constipation, No abdominal Pain, No Hematochezia, No Melena Genitourinary : no irregular bleeding, No Dysuria, No Urinary Frequency, No Hematuria, No Urinary Incontinence, No Urgency, No Flank Pain, No Urinary Flow Changes, No Hesitancy Musculoskeletal : No joint pain, No Myalgias, No Joint Swelling Skin : No Skin Lesions, No rash Neuro : No Weakness, No Numbness, No Paresthesias, No Loss of Consciousness, No Dizziness, No Headache Psych : No Anxiety/Panic, No Depression, No SI/HI/AH/VH, No Social Issues, Heme/Lymph: No Bruising, No Bleeding,No Lymphadenopathy Endocrine : No Polyuria, No Polydipsia, No Temperature Intolerance <Jenifer Donvoan MD - Last Filed: 08/21/22 23:17> [facility] Past Medical History Medical History: Medical History Anxiety Asthma Diabetes mellitus Elevated cholesterol Fatty liver GERD (gastroesophageal reflux disease) HLD (hyperlipidemia) HTN (hypertension) Migraines T2DM (type 2 diabetes mellitus) Transaminitis Vitamin D deficiency <Mala Penn CNP - Last Filed: 08/21/22 14:47> Surgical History: Surgical History H/O lithotripsy History of hysterectomy (~2011) History of local excision of skin lesion <Mala Penn CNP - Last Filed: 08/21/22 14:47> Family History Family History: Family History Father Heart disease Mother No problems noted. <Mala Penn CNP - Last Filed: 08/21/22 14:47> Social History Social History: Social History Alcohol intake: never Patient Tobacco Use Status: Never used Tobacco Smoked in Last 30 Days: No Second Hand Smoke Exposure: No Use of substances other than those prescribed or required for medical reasons: No Advance Directives: No Advance Directives Information Provided: No Patient : No <Mala Penn CNP - Last Filed: 08/21/22 14:47> Physical Exam Vital Signs: Vital Signs: Last Vital Signs Temp 98.5 F 08/21/22 22:20 Pulse 78 08/21/22 22:20 Resp 17 08/21/22 22:20 BP 125/69 08/21/22 22:20 Pulse Ox 100 08/21/22 22:20 O2 Del Method 08/21/22 22:20 BMI result Body Mass Index 39.0 <Mala Alisa MATTEO Penn - Last Filed: 08/21/22 14:47> Vital Signs: Last Vital Signs Temp 98.5 F 08/21/22 22:20 Pulse 78 08/21/22 22:20 Resp 17 08/21/22 22:20 BP 125/69 08/21/22 22:20 Pulse Ox 100 08/21/22 22:20 O2 Del Method 08/21/22 22:20 BMI result Body Mass Index 39.0 <Jenifer Donovan MD - Last Filed: 08/21/22 23:17> Const: Other: Appearance: Alert. Oriented X3. No acute distress. Eyes: Pupils equal, round and reactive to light. ENT: Pharynx normal. Neck: Normal inspection. Neck supple. No lymph nodes noted. No crepitus CVS: Normal heart rate and rhythm. Pulses normal. Normal S1 and S2 Respiratory: No respiratory distress. Breath sounds normal. No Wheezing. No rales Abdomen: Soft and nontender. No rigidity. No distention. Skin: Skin warm and dry. Normal skin color. Normal skin turgor. Extremities: No lower extremity edema. No Lacerations. No Rash Neuro: Oriented X 3. No motor deficit. No sensory deficit. Moving all extremities. No slurred speech. CN 2 through 12 grossly intact Psych: calm, cooperative, normal affect <Jenifer Donovan MD - Last Filed: 08/21/22 23:17> Course Course Course Narrative: This is an RME: Additional HPI, ROS, PE not included below will be deferred to primary provider. Patient is a 41-year-old female who presents to the emergency department with complaints of chest pain that is felt at rest and on exertion, shortness of breath while walking. She denies ever having these symptoms before, however upon review of EMR, she has had 3 recent ER visits over the past month for chest pain. She also reports that she suffers from anxiety and asthma and is not certain whether this is related. Plan: labs, EKG, CXR, viral testing <Mala Penn CNP - Last Filed: 08/21/22 14:47> This is an RME: Additional HPI, ROS, PE not included below will be deferred to primary provider. Patient is a 41-year-old female who presents to the emergency department with complaints of chest pain that is felt at rest and on exertion, shortness of breath while walking. She denies ever having these symptoms before, however upon review of EMR, she has had 3 recent ER visits over the past month for chest pain. She also reports that she suffers from anxiety and asthma and is not certain whether this is related. Plan: labs, EKG, CXR, viral testing D-dimer pending. Then will decide if patient needs a regular CT scan to rule out pneumonia or a CT for pulmonary embolism broad workup D-dimer negative, CT scan does not show pneumonia. Patient ready for discharge. Patient likely having costochondritis <Jenifer Donovan MD - Last Filed: 08/21/22 23:17> Medical Decision Making Differential Diagnosis Differential Diagnoses: The differential diagnosis associated with the presentation includes <Jenifer Donovan MD - Last Filed: 08/21/22 23:17> Lab Data MDM Lab Attestation statement: I reviewed the patient's lab results. <Jenifer Donovan MD - Last Filed: 08/21/22 23:17> Result Diagrams: : 08/21/22 16:14 08/21/22 16:14 <Mala Penn CNP - Last Filed: 08/21/22 14:47> Labs: Lab Results 08/21/22 08/21/22 08/21/22 Range/Units 16:14 16:14 16:14 WBC 9.5 (4.8-10.8) X10*3/uL RBC 5.10 (4.20-5.50) X10*6/uL Hgb 14.1 (12.0-16.0) g/dl Hct 42.6 (37.0-47.0) % MCV 83.5 (80.0-98.0) fL MCH 27.6 (27.0-33.0) pg MCHC 33.1 (31.0-35.0) g/dl RDW 13.2 (11.0-16.0) % Plt Count 305 (160-400) X10*3/uL MPV 10.1 (9.4-12.3) fL Immature Gran % (Auto) 0.2 (0.0-0.4) % Neut % (Auto) 66.1 (45-73) % Lymph % (Auto) 26.4 (20-40) % [place] % (Auto) 6.2 (2-11) % Eos % (Auto) 0.9 (0-4) % Baso % (Auto) 0.2 (0-2) % Lymph # (Auto) 2.5 (1.2-4.9) X10*3/uL [place] # (Auto) 0.6 (0.1-1.2) X10*3/uL Eos # (Auto) 0.1 (0.0-0.4) X10*3/uL Baso # (Auto) 0.0 (0.0-0.2) X10*3/uL Abs Immat Gran (auto) 0.02 (0.00-0.03) X10*3/uL Absolute Neuts (auto) 6.3 (2.0-8.3) x10*3/uL Absolute Nucleated RBC 0.000 (0.0-0.012) X10*3/uL Nucleated RBC % (auto) 0.0 (0.0-0.2) /100WBC PT (10.0-13.1) SEC INR (0.9-1.1) D-Dimer High Sensitivty NG/ML Sodium 142 (135-145) mmol/L Potassium 3.7 (3.3-5.1) mmol/L Chloride 105 (96-108) mmol/L Carbon Dioxide 27 (22-29) mmol/L Anion Gap 14 (12-20) BUN 10 (9-16) mg/dL Creatinine 0.78 (0.5-1.4) mg/dL Estim Creat Clear Calc 94.3 Estimated GFR > 60 Random Glucose 97 (60-115) mg/dL Calcium 10.3 H D (8.4-10.2) mg/dL Total Bilirubin 0.5 (0.0-1.0) mg/dL AST 57 H (5-31) U/L ALT 63 H (0-31) U/L Alkaline Phosphatase 102 (39-117) U/L Troponin I High Sens < 3.5 (<3.5-17.0) ng/L B-Natriuretic Peptide (<100) pg/mL Total Protein 8.2 H (6.5-8.0) g/dL Albumin 4.7 (3.5-5.0) g/dL COVID-19 (KANNAN) (Negative) COVID-19 Clin Com Influenza Type A (VICKY) (Negative) Influenza Type B (VICKY) (Negative) Influenza A & B Note 08/21/22 08/21/22 08/21/22 Range/Units 16:14 16:14 16:14 WBC (4.8-10.8) X10*3/uL RBC (4.20-5.50) X10*6/uL Hgb (12.0-16.0) g/dl Hct (37.0-47.0) % MCV (80.0-98.0) fL MCH (27.0-33.0) pg MCHC (31.0-35.0) g/dl RDW (11.0-16.0) % Plt Count (160-400) X10*3/uL MPV (9.4-12.3) fL Immature Gran % (Auto) (0.0-0.4) % Neut % (Auto) (45-73) % Lymph % (Auto) (20-40) % [place] % (Auto) (2-11) % Eos % (Auto) (0-4) % Baso % (Auto) (0-2) % Lymph # (Auto) (1.2-4.9) X10*3/uL [place] # (Auto) (0.1-1.2) X10*3/uL Eos # (Auto) (0.0-0.4) X10*3/uL Baso # (Auto) (0.0-0.2) X10*3/uL Abs Immat Gran (auto) (0.00-0.03) X10*3/uL Absolute Neuts (auto) (2.0-8.3) x10*3/uL Absolute Nucleated RBC (0.0-0.012) X10*3/uL Nucleated RBC % (auto) (0.0-0.2) /100WBC PT 11.7 (10.0-13.1) SEC INR 1.0 (0.9-1.1) D-Dimer High Sensitivty < 150 NG/ML Sodium (135-145) mmol/L Potassium (3.3-5.1) mmol/L Chloride (96-108) mmol/L Carbon Dioxide (22-29) mmol/L Anion Gap (12-20) BUN (9-16) mg/dL Creatinine (0.5-1.4) mg/dL Estim Creat Clear Calc Estimated GFR Random Glucose (60-115) mg/dL Calcium (8.4-10.2) mg/dL Total Bilirubin (0.0-1.0) mg/dL AST (5-31) U/L ALT (0-31) U/L Alkaline Phosphatase (39-117) U/L Troponin I High Sens (<3.5-17.0) ng/L B-Natriuretic Peptide (<100) pg/mL Total Protein (6.5-8.0) g/dL Albumin (3.5-5.0) g/dL COVID-19 (KANNAN) Negative (Negative) COVID-19 Clin Com See Note Influenza Type A (VICKY) Negative (Negative) Influenza Type B (VICKY) Negative (Negative) Influenza A & B Note See Note 08/21/22 Range/Units 16:14 WBC (4.8-10.8) X10*3/uL RBC (4.20-5.50) X10*6/uL Hgb (12.0-16.0) g/dl Hct (37.0-47.0) % MCV (80.0-98.0) fL MCH (27.0-33.0) pg MCHC (31.0-35.0) g/dl RDW (11.0-16.0) % Plt Count (160-400) X10*3/uL MPV (9.4-12.3) fL Immature Gran % (Auto) (0.0-0.4) % Neut % (Auto) (45-73) % Lymph % (Auto) (20-40) % [place] % (Auto) (2-11) % Eos % (Auto) (0-4) % Baso % (Auto) (0-2) % Lymph # (Auto) (1.2-4.9) X10*3/uL [place] # (Auto) (0.1-1.2) X10*3/uL Eos # (Auto) (0.0-0.4) X10*3/uL Baso # (Auto) (0.0-0.2) X10*3/uL Abs Immat Gran (auto) (0.00-0.03) X10*3/uL Absolute Neuts (auto) (2.0-8.3) x10*3/uL Absolute Nucleated RBC (0.0-0.012) X10*3/uL Nucleated RBC % (auto) (0.0-0.2) /100WBC PT (10.0-13.1) SEC INR (0.9-1.1) D-Dimer High Sensitivty NG/ML Sodium (135-145) mmol/L Potassium (3.3-5.1) mmol/L Chloride (96-108) mmol/L Carbon Dioxide (22-29) mmol/L Anion Gap (12-20) BUN (9-16) mg/dL Creatinine (0.5-1.4) mg/dL Estim Creat Clear Calc Estimated GFR Random Glucose (60-115) mg/dL Calcium (8.4-10.2) mg/dL Total Bilirubin (0.0-1.0) mg/dL AST (5-31) U/L ALT (0-31) U/L Alkaline Phosphatase (39-117) U/L Troponin I High Sens (<3.5-17.0) ng/L B-Natriuretic Peptide < 10 (<100) pg/mL Total Protein (6.5-8.0) g/dL Albumin (3.5-5.0) g/dL COVID-19 (KANNAN) (Negative) COVID-19 Clin Com Influenza Type A (VICKY) (Negative) Influenza Type B (VICKY) (Negative) Influenza A & B Note <Mala Penn CNP - Last Filed: 08/21/22 14:47> Lab Results 08/21/22 08/21/22 08/21/22 Range/Units 16:14 16:14 16:14 WBC 9.5 (4.8-10.8) X10*3/uL RBC 5.10 (4.20-5.50) X10*6/uL Hgb 14.1 (12.0-16.0) g/dl Hct 42.6 (37.0-47.0) % MCV 83.5 (80.0-98.0) fL MCH 27.6 (27.0-33.0) pg MCHC 33.1 (31.0-35.0) g/dl RDW 13.2 (11.0-16.0) % Plt Count 305 (160-400) X10*3/uL MPV 10.1 (9.4-12.3) fL Immature Gran % (Auto) 0.2 (0.0-0.4) % Neut % (Auto) 66.1 (45-73) % Lymph % (Auto) 26.4 (20-40) % [place] % (Auto) 6.2 (2-11) % Eos % (Auto) 0.9 (0-4) % Baso % (Auto) 0.2 (0-2) % Lymph # (Auto) 2.5 (1.2-4.9) X10*3/uL [place] # (Auto) 0.6 (0.1-1.2) X10*3/uL Eos # (Auto) 0.1 (0.0-0.4) X10*3/uL Baso # (Auto) 0.0 (0.0-0.2) X10*3/uL Abs Immat Gran (auto) 0.02 (0.00-0.03) X10*3/uL Absolute Neuts (auto) 6.3 (2.0-8.3) x10*3/uL Absolute Nucleated RBC 0.000 (0.0-0.012) X10*3/uL Nucleated RBC % (auto) 0.0 (0.0-0.2) /100WBC PT (10.0-13.1) SEC INR (0.9-1.1) D-Dimer High Sensitivty NG/ML Sodium 142 (135-145) mmol/L Potassium 3.7 (3.3-5.1) mmol/L Chloride 105 (96-108) mmol/L Carbon Dioxide 27 (22-29) mmol/L Anion Gap 14 (12-20) BUN 10 (9-16) mg/dL Creatinine 0.78 (0.5-1.4) mg/dL Estim Creat Clear Calc 94.3 Estimated GFR > 60 Random Glucose 97 (60-115) mg/dL Calcium 10.3 H D (8.4-10.2) mg/dL Total Bilirubin 0.5 (0.0-1.0) mg/dL AST 57 H (5-31) U/L ALT 63 H (0-31) U/L Alkaline Phosphatase 102 (39-117) U/L Troponin I High Sens < 3.5 (<3.5-17.0) ng/L B-Natriuretic Peptide (<100) pg/mL Total Protein 8.2 H (6.5-8.0) g/dL Albumin 4.7 (3.5-5.0) g/dL COVID-19 (KANNAN) (Negative) COVID-19 Clin Com Influenza Type A (VICKY) (Negative) Influenza Type B (VICKY) (Negative) Influenza A & B Note 08/21/22 08/21/22 08/21/22 Range/Units 16:14 16:14 16:14 WBC (4.8-10.8) X10*3/uL RBC (4.20-5.50) X10*6/uL Hgb (12.0-16.0) g/dl Hct (37.0-47.0) % MCV (80.0-98.0) fL MCH (27.0-33.0) pg MCHC (31.0-35.0) g/dl RDW (11.0-16.0) % Plt Count (160-400) X10*3/uL MPV (9.4-12.3) fL Immature Gran % (Auto) (0.0-0.4) % Neut % (Auto) (45-73) % Lymph % (Auto) (20-40) % [place] % (Auto) (2-11) % Eos % (Auto) (0-4) % Baso % (Auto) (0-2) % Lymph # (Auto) (1.2-4.9) X10*3/uL [place] # (Auto) (0.1-1.2) X10*3/uL Eos # (Auto) (0.0-0.4) X10*3/uL Baso # (Auto) (0.0-0.2) X10*3/uL Abs Immat Gran (auto) (0.00-0.03) X10*3/uL Absolute Neuts (auto) (2.0-8.3) x10*3/uL Absolute Nucleated RBC (0.0-0.012) X10*3/uL Nucleated RBC % (auto) (0.0-0.2) /100WBC PT 11.7 (10.0-13.1) SEC INR 1.0 (0.9-1.1) D-Dimer High Sensitivty < 150 NG/ML Sodium (135-145) mmol/L Potassium (3.3-5.1) mmol/L Chloride (96-108) mmol/L Carbon Dioxide (22-29) mmol/L Anion Gap (12-20) BUN (9-16) mg/dL Creatinine (0.5-1.4) mg/dL Estim Creat Clear Calc Estimated GFR Random Glucose (60-115) mg/dL Calcium (8.4-10.2) mg/dL Total Bilirubin (0.0-1.0) mg/dL AST (5-31) U/L ALT (0-31) U/L Alkaline Phosphatase (39-117) U/L Troponin I High Sens (<3.5-17.0) ng/L B-Natriuretic Peptide (<100) pg/mL Total Protein (6.5-8.0) g/dL Albumin (3.5-5.0) g/dL COVID-19 (KANNAN) Negative (Negative) COVID-19 Clin Com See Note Influenza Type A (VICKY) Negative (Negative) Influenza Type B (VICKY) Negative (Negative) Influenza A & B Note See Note 08/21/22 Range/Units 16:14 WBC (4.8-10.8) X10*3/uL RBC (4.20-5.50) X10*6/uL Hgb (12.0-16.0) g/dl Hct (37.0-47.0) % MCV (80.0-98.0) fL MCH (27.0-33.0) pg MCHC (31.0-35.0) g/dl RDW (11.0-16.0) % Plt Count (160-400) X10*3/uL MPV (9.4-12.3) fL Immature Gran % (Auto) (0.0-0.4) % Neut % (Auto) (45-73) % Lymph % (Auto) (20-40) % [place] % (Auto) (2-11) % Eos % (Auto) (0-4) % Baso % (Auto) (0-2) % Lymph # (Auto) (1.2-4.9) X10*3/uL [place] # (Auto) (0.1-1.2) X10*3/uL Eos # (Auto) (0.0-0.4) X10*3/uL Baso # (Auto) (0.0-0.2) X10*3/uL Abs Immat Gran (auto) (0.00-0.03) X10*3/uL Absolute Neuts (auto) (2.0-8.3) x10*3/uL Absolute Nucleated RBC (0.0-0.012) X10*3/uL Nucleated RBC % (auto) (0.0-0.2) /100WBC PT (10.0-13.1) SEC INR (0.9-1.1) D-Dimer High Sensitivty NG/ML Sodium (135-145) mmol/L Potassium (3.3-5.1) mmol/L Chloride (96-108) mmol/L Carbon Dioxide (22-29) mmol/L Anion Gap (12-20) BUN (9-16) mg/dL Creatinine (0.5-1.4) mg/dL Estim Creat Clear Calc Estimated GFR Random Glucose (60-115) mg/dL Calcium (8.4-10.2) mg/dL Total Bilirubin (0.0-1.0) mg/dL AST (5-31) U/L ALT (0-31) U/L Alkaline Phosphatase (39-117) U/L Troponin I High Sens (<3.5-17.0) ng/L B-Natriuretic Peptide < 10 (<100) pg/mL Total Protein (6.5-8.0) g/dL Albumin (3.5-5.0) g/dL COVID-19 (KANNAN) (Negative) COVID-19 Clin Com Influenza Type A (VICKY) (Negative) Influenza Type B (VICKY) (Negative) Influenza A & B Note <Jenifer Donovan MD - Last Filed: 08/21/22 23:17> Radiology Impression Discussion of test interpretation with radiology: I have reviewed the radiologist's reading. 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 ? MEDIASTINUM: The mediastinum is normal.? CORONARY ARTERY CALCIFICATION: None visualized on this study. PLEURA: There is no pleural effusion. No pleural mass or thickening.? AXILLA: Small shotty lymph nodes are seen in the axilla. The chest wall is unremarkable.? UPPER ABDOMEN: The liver is normal size and contour but diffusely attenuated. No focal lesion seen. No intrahepatic ductal dilatation. Spleen, pancreas and bilateral adrenal glands are unremarkable. Partially visualized gallbladder is unremarkable.? OSSEOUS STRUCTURES: There is exaggerated thoracic kyphosis but otherwise no aggressive lytic or sclerotic process seen.? CT/CT chest wo IV con IMPRESSION: Unremarkable CT chest exam. ? Fleischner guidelines were followed. <Jenifer Donovan MD - Last Filed: 08/21/22 23:17> Discharge Plan Discharge Clinical Impression: Atypical chest pain <Mala Penn CNP - Last Filed: 08/21/22 14:47> Patient Disposition: Home, Self-Care <Mala Penn CNP - Last Filed: 08/21/22 14:47> Instructions: Chest Pain (ED) <Mala Penn CNP - Last Filed: 08/21/22 14:47> Additional Instructions: Please follow-up with your primary care physician tomorrow. If you continue having intermittent chest pain, please talk to your primary care physician about possibly helping you to schedule a stress test. If you have any worsening or new symptoms, please return to the emergency room or call 911 <Mala Penn CNP - Last Filed: 08/21/22 14:47> Prescriptions: No Action (DME) pen needle, diabetic [BD Ultra-Fine Micro Pen Needle] 32 gauge x 1/4 needle See Rx Instructions .ROUTE .MEDSUPPLY Qty: 50 11RF Rx Instructions: Once a week pyridoxine (vitamin B6) 100 mg tablet 100 mg PO DAILY 90 Days Qty: 90 1RF (DME) FreeStyle Lite Strips Strip See Rx Instructions .ROUTE .MEDSUPPLY Qty: 100 11RF Rx Instructions: As directed Test blood glucose 3x daily. Jardiance 25 mg tablet 25 mg PO DAILY 30 Days Qty: 30 11RF metformin 1,000 mg tablet 1,000 mg PO BID 30 Days Qty: 60 11RF cholecalciferol (vitamin D3) 50 mcg (2,000 unit) capsule 50 mcg PO DAILY 30 Days Qty: 30 11RF lancets [TRUEplus Lancets] 33 gauge misc 1 gauge miscellaneous QID 30 Days Qty: 100 11RF atorvastatin 40 mg tablet 40 mg PO DAILY 30 Days Qty: 30 0RF Rx Instructions: MUST COMPLETE LABS FOR FURTHER REFILLS!! cyclobenzaprine 10 mg tablet 10 mg PO TID PRN (Reason: muscle spasm) Qty: 14 0RF albuterol sulfate 90 mcg/actuation Hfa Aerosol Inhaler 2 puff INHALATION Q4-6H PRN (Reason: Shortness Of Breath) ketorolac 10 mg tablet 10 mg PO Q8H PRN (Reason: pain) Qty: 10 0RF ibuprofen 600 mg tablet 600 mg PO Q6H PRN (Reason: pain) Qty: 30 0RF cyclobenzaprine 10 mg tablet 10 mg PO TID PRN (Reason: muscle spasm) Qty: 10 0RF (DME) blood-glucose meter [FreeStyle Lite Meter] Kit See Rx Instructions .ROUTE .MEDSUPPLY Qty: 1 0RF Rx Instructions: As directed Trulicity 1.5 mg/0.5 mL pen injector 1.5 mg subcut QWEEK 30 Days Qty: 2.5 11RF terconazole 0.4 % cream 1 appful vaginal BEDTIME alcohol swabs [Alcohol Prep Pads] Pads, Medicated topical DAILY pantoprazole 40 mg tablet,delayed release (DR/EC) 40 mg PO DAILY albuterol sulfate 2.5 mg /3 mL (0.083 %) solution for nebulization inhalation TID PRN (Reason: wheezing) sennosides [Senna Laxative] 8.6 mg tablet 17.2 mg PO DAILY PRN (Reason: constipation) escitalopram oxalate 5 mg tablet 5 mg PO DAILY docusate sodium 100 mg capsule 100 mg PO BID PRN buspirone 10 mg tablet 10 mg PO TID vitamin A 10,000 unit capsule 1 cap PO DAILY magnesium oxide 400 mg (241.3 mg magnesium) tablet 200 mg PO DAILY tramadol 50 mg tablet 50 mg PO Q8H PRN (Reason: pain (scale score 1-3)) Qty: 14 0RF lisinopril 5 mg tablet 5 mg PO DAILY Qty: 30 5RF escitalopram oxalate 20 mg tablet 20 mg PO DAILY ibuprofen 600 mg tablet 600 mg PO Q6H sumatriptan succinate 50 mg tablet 50 mg PO Trulicity 0.75 mg/0.5 mL pen injector 0.75 mg subcut QWEEK clonazepam 0.5 mg tablet 0.5 mg PO DAILY PRN (Reason: anxiety) <Mala Penn CNP - Last Filed: 08/21/22 14:47>
[2022-08-21 14:41] VITALS: BP 143/99; PULSE 108; RESP 17; TEMP 36.2; O2SAT 100; BMI 39.0
--- NOTE | 2022-08-21 14:41 | ECG_ITS ---
Test Reason : shortness of breath Blood Pressure : / mmHG Vent. Rate : 096 BPM Atrial Rate : 096 BPM P-R Int : 154 ms QRS Dur : 078 ms QT Int : 340 ms P-R-T Axes : 035 013 023 degrees QTc Int : 429 ms Normal sinus rhythm Minimal voltage criteria for LVH, may be normal variant ( R in aVL ) Borderline ECG When compared with ECG of 11-AUG-2022 10:51, No significant change was found Referred By: Mala Penn Electronically Signed By:JOSE NASCIMENTO MD
[2022-08-21 16:25] LABS: MANUAL DIFF FLAG NO
[2022-08-21 16:29] LABS: Basophils Percent Auto 0.2 % (0-2); Eosinophils Absolute Auto 0.1 X10*3/uL (0.0-0.4); Eosinophils Percent Auto 0.9 % (0-4); Hematocrit 42.6 % (37.0-47.0); Hemoglobin 14.1 g/dl (12.0-16.0); Imm Gran Abs Auto 0.02 X10*3/uL (0.00-0.03); Imm Gran Pct Auto 0.2 % (0.0-0.4); Lymphocytes Absolute Auto 2.5 X10*3/uL (1.2-4.9); Lymphocytes Percent Auto 26.4 % (20-40); Mean Corpuscular HGB Conc 33.1 g/dl (31.0-35.0); Mean Corpuscular Hemoglobin 27.6 pg (27.0-33.0); Mean Corpuscular Volume 83.5 fL (80.0-98.0); Mean Platelet Volume 10.1 fL (9.4-12.3); Monocytes Absolute Auto 0.6 X10*3/uL (0.1-1.2); Monocytes Percent Auto 6.2 % (2-11); Neutrophils Absolute Auto 6.3 x10*3/uL (2.0-8.3); Neutrophils Percent Auto 66.1 % (45-73); Platelet Count 305 X10*3/uL (160-400); Red Cell Distribution Width 13.2 % (11.0-16.0); White Blood Count 9.5 X10*3/uL (4.8-10.8)
[2022-08-21 16:36] LABS: Prothrombin Time 11.7 SEC (10.0-13.1)
[2022-08-21 16:41] LABS: COVID-19 Test Negative (Negative); IDNOW Serial# 6674DD1D
[2022-08-21 16:42] LABS: Alanine Aminotransferase 63 U/L (0-31); Albumin Level 4.7 g/dL (3.5-5.0); Alkaline Phosphatase 102 U/L (39-117); Anion Gap 14 (12-20); Aspartate Amino Transferase 57 U/L (5-31); Bilirubin Total 0.5 mg/dL (0.0-1.0); Blood Urea Nitrogen 10 mg/dL (9-16); Calcium 10.3 mg/dL (8.4-10.2); Carbon Dioxide 27 mmol/L (22-29); Chloride 105 mmol/L (96-108); Creatinine Clr Calc Pharmacy 94.3; Estimated Glomerular Filt Rate > 60; Glucose Random 97 mg/dL (60-115); Potassium 3.7 mmol/L (3.3-5.1); Sodium 142 mmol/L (135-145); Total Protein 8.2 g/dL (6.5-8.0)
[2022-08-21 16:45] LABS: IDNOW Serial# 55D5AD1C; Influenza A Negative (Negative); Influenza B2 Negative (Negative)
[2022-08-21 16:47] LABS: Troponin-I High Sensitivity < 3.5 ng/L (<3.5-17.0)
--- NOTE | 2022-08-21 18:45 | PC.NURSE ---
41 y/o F with no significant Pmhx pw multiple days of intermittent chest pain and SOB with activity. pt states no symptoms at this time but is scared they may return. pt is aox3, calm and cooperative, VSS
--- NOTE | 2022-08-21 19:18 | PC.NURSE ---
Pt resting quietly, no need expressed at this time.
[2022-08-21 19:19] VITALS: BP 147/88; PULSE 87; RESP 20; O2SAT 97
[2022-08-21 20:02] LABS: B Type Natriuretic Peptide < 10 pg/mL (<100)
[2022-08-21 20:07] LABS: D Dimer High Sensitivity < 150 NG/ML
--- NOTE | 2022-08-21 21:57 | PC.NURSE ---
Pt resting quietly no needs expressed at this time.
[2022-08-21 22:20] VITALS: BP 125/69; PULSE 78; RESP 17; TEMP 36.9; O2SAT 100
[2022-08-21 23:24] VITALS: BP 123/72; PULSE 79; RESP 18; O2SAT 100
== END 2022-08-21 23:25 | disposition home or self-care (01) ==
PROVIDERS: Nurse Practitioner Family; Emergency Provider Emergency Medicine
DX: R07.89 Other chest pain (principal); R06.02 Shortness of breath; Z20.822 Contact with and (suspected) exposure to COVID-19; I10 Essential (primary) hypertension; E11.9 Type 2 diabetes mellitus without complications; E78.5 Hyperlipidemia, unspecified; Z79.84 Long term (current) use of oral hypoglycemic drugs; Z79.02 Long term (current) use of antithrombotics/antiplatelets; Z79.899 Other long term (current) drug therapy
CPT/HCPCS: 36415; 71046; 71250; 80053; 83880; 84484; 85025; 85379; 85610; 87502; 87635; 93005; 99284

== ENCOUNTER 2022-08-27 12:47 | Outpatient (REF) | payer MEDICAID, SELFPAY ==
[2022-08-27 12:54] VITALS: BMI 39.0
[2022-08-27 12:56] VITALS: BP 127/79; PULSE 90; RESP 16; TEMP 36.2; O2SAT 100
[2022-08-27 13:20] VITALS: BP 138/82; PULSE 88; RESP 16; O2SAT 99
--- NOTE | 2022-08-27 13:26 | W.PM.OPN ---
Operative Note Operative Note Date of Service: 08/27/22 Narrative: Preoperative diagnosis: Left preauricular skin lesion Postoperative diagnosis: Same Procedure: Punch biopsy of left preauricular skin lesion Surgeon: Lionel Cintron MD Except[facility] Teacher: None Anesthesia: Sensorcaine 0.5% with epinephrine Indications for procedure: 41-year-old female with a small but enlarging melanotic lesion located in the left preauricular region measuring approximately 2 mm in diameter. Patient is requested excision. Operative findings: 2 mm pigmented lesion left preauricular region of unknown cancer potential Specimen: Left preauricular skin lesion Estimated blood loss: Less than 1 mL Complications: None Procedure details: Patient was brought to the minor surgery suite and placed in a supine position. The site of surgery was confirmed by the patient in the left preauricular region. After assuring informed consent the skin was prepped with Betadine and draped in a sterile fashion. Local anesthesia was then infiltrated below the lesion. A 3.5 mm punch biopsy was then obtained. Lesion was excised using the punch biopsy and the specimen sent to pathology for further examination. Skin incision was closed using 2 interrupted 5 0 nylon sutures. Bacitracin and a sterile bandage was applied. The patient tolerated the procedure well. She was discharged to home in stable condition.
== END 2022-08-27 12:48 | disposition home or self-care (01) ==
LOC: HO.MS 12:47
PROVIDERS: Visit Provider Surgery
PROC: (CPT 69100; principal; 2022-08-27 13:00)
DX: D23.22 Other benign neoplasm of skin of left ear and external auricular canal (principal); I10 Essential (primary) hypertension; E11.9 Type 2 diabetes mellitus without complications; J45.909 Unspecified asthma, uncomplicated; F41.1 Generalized anxiety disorder; G43.909 Migraine, unspecified, not intractable, without status migrainosus; Z79.85 Long-term (current) use of injectable non-insulin antidiabetic drugs; Z79.899 Other long term (current) drug therapy; Z88.8 Allergy status to other drugs, medicaments and biological substances
CPT/HCPCS: 69100; 88304

== ENCOUNTER 2022-09-15 10:47 | Outpatient (REF) | payer MEDICAID, SELFPAY ==
[2022-09-15 12:16] LABS: Estimated Average Glucose 143 mg/dL; Hemoglobin A1c % 6.6 %
[2022-09-15 13:14] LABS: Vitamin B12 331 pg/mL (200-900)
[2022-09-15 13:22] LABS: Creatinine Urine 94.02 mg/dL; Microalbum/Creatinine Ratio Ur 11.6 ug/mg cr
[2022-09-15 13:43] LABS: Alanine Aminotransferase 73 U/L (0-31); Albumin Level 4.1 g/dL (3.5-5.0); Alkaline Phosphatase 115 U/L (39-117); Anion Gap 14 (12-20); Aspartate Amino Transferase 65 U/L (5-31); Bilirubin Total 0.4 mg/dL (0.0-1.0); Blood Urea Nitrogen 8 mg/dL (9-16); Calcium 9.5 mg/dL (8.4-10.2); Carbon Dioxide 24 mmol/L (22-29); Chloride 104 mmol/L (96-108); Cholesterol 216 mg/dL; Estimated Glomerular Filt Rate > 60; Glucose Random 218 mg/dL (60-115); HDL Cholesterol 43 mg/dL; LDL Cholesterol Calculated 127 mg/dl; Potassium 4.1 mmol/L (3.3-5.1); Sodium 138 mmol/L (135-145); Total Protein 7.4 g/dL (6.5-8.0); Triglycerides 232 mg/dL
[2022-09-16 09:02] LABS: LDL Cholesterol Direct 143 mg/dL (<100)
== END 2022-09-15 10:48 | disposition home or self-care (01) ==
LOC: HO.LAB 10:47
PROVIDERS: Absent Provider Internal Medicine; Visit Provider Surgery
DX: Z48.02 Encounter for removal of sutures (principal); E11.65 Type 2 diabetes mellitus with hyperglycemia
CPT/HCPCS: 36415; 80053; 80061; 82043; 82607; 83036; 83721; 99211

== ENCOUNTER → 2022-09-16 10:22 | Outpatient (BNVA) | payer MEDICAID, SELFPAY | PROVIDERS: Visit Provider Internal Medicine | DX: E11.65 Type 2 diabetes mellitus with hyperglycemia (principal); E78.5 Hyperlipidemia, unspecified; I10 Essential (primary) hypertension; R94.01 Abnormal electroencephalogram [EEG] | CPT/HCPCS: 82947; 99212 ==

== ENCOUNTER → 2022-09-18 10:42 | Outpatient (BNVA) | payer MEDICAID, SELFPAY | PROVIDERS: Visit Provider Internal Medicine Endocrinology, Diabetes & Metabolism | DX: Z13.89 Encounter for screening for other disorder (principal) ==

== ENCOUNTER 2023-02-01 14:30 | Outpatient (REF) | payer MEDICAID, SELFPAY ==
--- NOTE | ~2023-02-01 | XR_ITS ---
EXAMINATION: XR FINGER, LEFT CLINICAL INFORMATION: Pain for one month, left thumb. No known injury. COMPARISON: None available. TECHNIQUE: AP view left hand is performed along with 3 views of the left thumb. There are a total of 4 views. FINDINGS: Bony mineralization is normal. There is no acute or healing fracture, dislocation, or destructive process. No periostitis. No focal joint narrowing or erosive changes. XR/XR finger LT min 2V IMPRESSION: Unremarkable left hand/thumb.
== END 2023-02-01 14:31 | disposition home or self-care (01) ==
LOC: HO.HHCX 14:30
PROVIDERS: Visit Provider Registered Nurse
DX: M79.645 Pain in left finger(s) (principal)
CPT/HCPCS: 73140

== ENCOUNTER 2023-02-09 10:28 | Outpatient (REF) | payer MEDICAID, SELFPAY ==
[2023-02-09 11:31] LABS: Estimated Average Glucose 126 mg/dL; Hemoglobin A1C 149.0713 umol/L
[2023-02-09 12:15] LABS: Alanine Aminotransferase 34 U/L (0-31); Alkaline Phosphatase 118 U/L (39-117); Anion Gap 14 (12-20); Aspartate Amino Transferase 36 U/L (5-31); Bilirubin Total 0.5 mg/dL (0.0-1.0); Blood Urea Nitrogen 8 mg/dL (9-16); Calcium 9.7 mg/dL (8.4-10.2); Carbon Dioxide 24 mmol/L (22-29); Chloride 109 mmol/L (96-108); Cholesterol 152 mg/dL; Estimated Glomerular Filt Rate > 60; Glucose Random 118 mg/dL (60-115); HDL Cholesterol 38 mg/dL; LDL Cholesterol Calculated 87 mg/dl; Potassium 3.4 mmol/L (3.3-5.1); Sodium 144 mmol/L (135-145); Total Protein 7.9 g/dL (6.5-8.0); Triglycerides 138 mg/dL
[2023-02-11 08:09] LABS: LDL Cholesterol Direct 97 mg/dL (<100)
== END 2023-02-09 10:29 | disposition home or self-care (01) ==
LOC: HO.LAB 10:28
PROVIDERS: PCP Registered Nurse; Visit Provider Internal Medicine
DX: E11.65 Type 2 diabetes mellitus with hyperglycemia (principal); L90.5 Scar conditions and fibrosis of skin
CPT/HCPCS: 36415; 80053; 80061; 83036; 83721; 99202

== ENCOUNTER 2023-02-24 12:45 | Outpatient (REF) | payer MEDICAID, SELFPAY ==
--- NOTE | ~2023-02-24 | CT_ITS ---
EXAMINATION: CT ABDOMEN AND PELVIS WITHOUT CONTRAST CLINICAL INFORMATION: Abdominal pain COMPARISON: Renal ultrasound May 2022, and abdominal ultrasound March 2022 TECHNIQUE: Multidetector volumetric imaging was performed from the superior aspect of the liver through the pubic symphysis. Sagittal and coronal reformatted images were obtained on the technologist's workstation. This CT examination was performed using dose optimization techniques as appropriate, variously including the following: *Automated exposure control *Adjustment of mA and/or kV according to patient size (this includes techniques or standardized protocols for targeted exams where dose is matched to indication/reason for exam; i.e. extremities or head) *Use of iterative reconstruction technique DLP: 674 mGy-cm FINDINGS: LUNG BASES: The visualized lung bases are unremarkable. LIVER, GALLBLADDER, AND BILIARY TREE: Fatty liver. No focal hepatic lesion or biliary ductal dilatation is present. The gallbladder is unremarkable with no evidence of radiopaque gallstones, gallbladder wall thickening, or obvious pericholecystic inflammatory changes. PANCREAS: Unremarkable. SPLEEN: Unremarkable. ADRENAL GLANDS: Unremarkable. KIDNEYS AND URETERS: Small 1 to 2 mm nonobstructing stone in the upper pole of the right kidney. The kidneys are otherwise normal. BLADDER: Unremarkable. GASTROINTESTINAL TRACT: The small and large bowel are unremarkable. The appendix is unremarkable. ABDOMINAL WALL: No significant hernia is appreciated. LYMPH NODES: Normal. VASCULAR: Unremarkable. PELVIC VISCERA: The uterus appears to have been removed. No pelvic mass. OSSEOUS STRUCTURES: Unremarkable. CT/CT abdomen pelvis wo IV con IMPRESSION: Small nonobstructing right renal stone. Fatty liver. Fleischner guidelines were followed.
== END 2023-02-24 12:46 | disposition home or self-care (01) ==
LOC: HO.CT 12:45
PROVIDERS: PCP Registered Nurse; Visit Provider Urology
DX: N20.0 Calculus of kidney (principal); R10.9 Unspecified abdominal pain
CPT/HCPCS: 74176

== ENCOUNTER 2023-03-05 15:50 | Outpatient (REF) | payer MEDICAID, SELFPAY ==
[2023-03-05 17:58] LABS: Alanine Aminotransferase 31 U/L (0-31); Albumin Level 4.2 g/dL (3.5-5.0); Alkaline Phosphatase 121 U/L (39-117); Aspartate Amino Transferase 34 U/L (5-31); Bilirubin Direct 0.2 mg/dL (0.0-0.5); Bilirubin Total 0.4 mg/dL (0.0-1.0); Total Protein 7.7 g/dL (6.5-8.0)
== END 2023-03-05 15:51 | disposition home or self-care (01) ==
LOC: HO.HHCL 15:50
PROVIDERS: Visit Provider Registered Nurse
DX: K75.81 Nonalcoholic steatohepatitis (NASH) (principal)
CPT/HCPCS: 36415; 80076

== ENCOUNTER 2023-03-10 11:24 | Outpatient (AMB) | payer MEDICAID, SELFPAY ==
--- NOTE | 2023-03-10 08:38 | A.OFFVIS_ITS ---
Intake Intake Visit Reasons: follow up/ CT Intake Note: Patient presents today for a follow-up on: Meds- None Allergies to Antibiotic- None Blood Thinner- None PVR- Brush Or Broom Cutter Required: Yes Brush Or Broom Cutter Language: [place] Accompanied by: Self / Same As Patient Allergies diphenhydramine [From BENADRYL] Allergy (Intermediate, Verified 03/10/23 11:25) HALLUCINATIONS morphine [MORPHINE] Allergy (Intermediate, Verified 03/10/23 11:25) DIAPHORESIS; TACHYCARDIA, palpitations, sweating, tingling of hands and face quetiapine [From SEROQUEL] Allergy (Intermediate, Verified 03/10/23 11:25) PALPITATIONS seafood Allergy (Intermediate, Verified 03/10/23 11:25) redness/itching tomato Allergy (Intermediate, Verified 03/10/23 11:25) Blister trazodone [TRAZODONE] Allergy (Intermediate, Verified 03/10/23 11:25) GI Upset, HEART RACING, palpitations pineapple Allergy (Unknown, Verified 03/10/23 11:25) Unknown prednisone [PREDNISONE] Adverse Reaction (Intermediate, Verified 03/10/23 11:25) HEART RACES HPI HPI Comments History of Present Illness Details Sacha is a 42-year-old female who presents for Telehealth follow-up. 03/10/23? The patient is a [place]-speaking female who has had previous lithotripsies in the past for kidney stones. She was last seen in the office on 06/29/22. Certified assistant to the ceo present. The patient reports pain on right side of the back. She describes the pain as intermittent in nature. She denies any gross hematuria. 02/24/23 -- CAT scan results reviewed -- Notable for small 1-2 mm stone in the upper pole of the right kidney. LV--06/29/22-- Sacha is a pleasant [place]-speaking female. she is seen for the following urologic issues -? nephrolithiasis. This visit is via telemedicine. ? [place] translation provided in office by certified spanishl front desk representative. She is s/p recent renal sono, 05/29/22, I have reviewed results with her, right kidney stone 3 mm no hydronephrosis, left kidney no renal calculi. ? She complains of intermittent flank pain which can be up to 8 on a scale from 1-10 10 being the most severe.? She states she has tramadol prescribed for back pain and she uses the tramadol when the right kidney pain is significant.? She denies dysuria or gross hematuria.? She is taking the vitamin B6 100 mg daily,? but? states that she isn't? drinking much water,? because drinking alot of water makes her feel nauseous, she drinks more fruit juices. I discussed that she may notice blood in the urine and pain will start going to the bladder area if she starts passing the stone. Nephrolithiasis Urolithiasis was diagnosed? - 2019 24 Hour urine evaluation? - none on file Prior treatment(s) include - 10/13 ESWL right side - did have trouble passing fragments Prior imaging includes? - 09/12 renal ultrasound with 2-3 3-4 mm stones on right kidney - 10/14/20 CT scan with small stone fragment down in right distal ureter - 11/10 - renal ultrasound no stones - 03/12? CT scan 3 mm distal stone right side mild hydro -05/29/2022 - Right kidney 3 mm stone no hydro 03/10/23: Plan- Recommended to continue taking vitamin B6 Recommended to use a heating pad for intermittent flank pain. She can use Tylenol or Advil as needed. We will check the kidneys in 1 year with another ultrasound. [facility] Medical History Anxiety Asthma Diabetes mellitus Elevated cholesterol Fatty liver GERD (gastroesophageal reflux disease) HLD (hyperlipidemia) HTN (hypertension) Migraines T2DM (type 2 diabetes mellitus) Transaminitis Vitamin D deficiency Surgical History H/O lithotripsy History of hysterectomy (~2011) History of local excision of skin lesion History of surgical removal of skin lesion (08/27/22) Family History Father Heart disease Mother No problems noted. Social History Alcohol intake: never Patient Tobacco Use Status: Never used Tobacco Second Hand Smoke Exposure: No Review of Systems Const All systems reviewed & are unremarkable except as noted in HPI and below Reports no additional complaints Eyes Reports no additional complaints Card Denies leg edema Resp Denies cough GI Denies constipation Reports no additional complaints Musc Reports no additional complaints and Reports back pain Skin/Breast Denies rash and Denies unusual bruising Neuro Reports no additional complaints Psych Reports no additional complaints Endo Reports no additional complaints Bin/Lymph Reports no additional complaints Aller/Immun Reports no additional complaints Results Reviewed Results Reviewed: Date - 02/24/23 FINDINGS: LUNG BASES: The visualized lung bases are unremarkable.? LIVER, GALLBLADDER, AND BILIARY TREE: Fatty liver. No focal hepatic lesion or biliary ductal dilatation is present. The gallbladder is unremarkable with no evidence of radiopaque gallstones, gallbladder wall thickening, or obvious pericholecystic inflammatory changes.? PANCREAS: Unremarkable.? SPLEEN: Unremarkable.? ADRENAL GLANDS: Unremarkable.? KIDNEYS AND URETERS: Small 1 to 2 mm nonobstructing stone in the upper pole of the right kidney. The kidneys are otherwise normal. BLADDER: Unremarkable.? GASTROINTESTINAL TRACT: The small and large bowel are unremarkable. The appendix is unremarkable.? ABDOMINAL WALL: No significant hernia is appreciated.? LYMPH NODES: Normal. VASCULAR: Unremarkable. PELVIC VISCERA: The uterus appears to have been removed. No pelvic mass. OSSEOUS STRUCTURES: Unremarkable.? IMPRESSION: Small nonobstructing right renal stone. Fatty liver. ? Fleischner guidelines were followed. Assessment & Plan Assessment & Plan (1) Nephrolithiasis: Code(s): N20.0 - Calculus of kidney (2) Right kidney stone: Code(s): N20.0 - Calculus of kidney (3) Flank pain: Code(s): R10.9 - Unspecified abdominal pain Plan Recommended to continue taking vitamin B6 Recommended to use a heating pad for intermittent flank pain. She can use Tylenol or Advil as needed. We will check the kidneys in 1 year with another ultrasound. Orders: Orders US renal BI 10 Months N20.0 - Calculus of kidney Medications: Refilled pyridoxine (vitamin B6) 100 mg PO DAILY 90 days 90 tabs 3RF N20.0 - Calculus of kidney Patient Instructions: The patient had an opportunity to ask questions regarding treatment plan. All questions were answered. Imaging, Laboratory studies and physical exam results were discussed and reviewed in detail. No major barriers to understanding were identified. The patient expressed understanding and agreement with the above treatment plan. The patient is aware they should contact our office by phone for worsening of their current condition or the appearance of new symptoms. Compliance is encouraged with any medications and followup testing that is ordered. It is a privilege to be allowed the opportunity to participate in the urologic care of your patient. If you have any questions or concerns regarding treatment for the above conditions please do not hesitate to contact me. The office telephone contact is [phone]. This note is constructed in part using voice recognition software. While every effort has been made to ensure accuracy stack yield engineer errors may have been included. Yours sincerely, Lee Winter MD Telehealth Telehealth Location of provider rendering services: practice address Location of patient: address on file Patient Identification confirmed using: Name, : Yes Telehealth method: video Patient verbally consented to treatment: Yes Patient verbally consented to billing insurance company: Yes Patient informed of any privacy concerns related to visit: Yes Minutes spent on Phone/Video with Pt.: 15 Coding Level of Care Code Tele Est Pt Level 3 (62047) Diagnoses Nephrolithiasis N20.0 Right kidney stone N20.0 Flank pain R10.9
== END 2023-03-10 13:34 | disposition home or self-care (01) ==
LOC: HO.HUSH 11:24
PROVIDERS: PCP Registered Nurse; Visit Provider Urology
DX: N20.0 Calculus of kidney (principal); R10.9 Unspecified abdominal pain
CPT/HCPCS: 99213

== ENCOUNTER → 2023-03-10 11:24 | Outpatient (BNVA) | payer MEDICAID, SELFPAY | PROVIDERS: PCP Registered Nurse; Visit Provider Urology ==

== ENCOUNTER 2023-03-11 10:11 | Day surgery (SDC) | payer MEDICAID, SELFPAY ==
[2023-03-08 15:30] VITALS: BMI 38.9
--- NOTE | 2023-03-10 10:00 | HO.ANESPROP2 ---
Documented by User: Maribel Freeman NP 03/10/23 10:06 HPI - Anesthesia Eval Consult details Narrative: 42yo F for Left Wide Local Upper Extremity Excision Mass *Multiple Allergies* PMFSH Active Problems Active Problems: All Active Problems (Updated 08/22/22 @ 00:01 by Alize Ruiz) Skin lesion of breast (Acute) Nephrolithiasis (Acute) Right shoulder strain (Acute) Rotator cuff strain (Acute) Epidermal inclusion cyst (Acute) Impingement syndrome of right shoulder (Acute) Dermatofibroma (Acute) Shoulder pain (Acute) Nevus of face (Acute) Nephrolithiasis (Acute) Hypertrophic scar of upper arm (Acute) Varicose veins of right lower extremity with inflammation (Acute) Chest discomfort (Acute) Abnormal stress ECG with treadmill (Acute) Cardiomyopathy (Acute) Varicose veins of left lower extremity with inflammation (Acute) Right flank pain (Acute) Scar contracture (Acute) Transaminitis (Acute) Vitamin D deficiency (Acute) HLD (hyperlipidemia) (Acute) HTN (hypertension) (Acute) T2DM (type 2 diabetes mellitus) (Acute) Past Medical History Medical History Anxiety Asthma Diabetes mellitus Elevated cholesterol Fatty liver GERD (gastroesophageal reflux disease) HLD (hyperlipidemia) HTN (hypertension) Migraines T2DM (type 2 diabetes mellitus) Transaminitis Vitamin D deficiency Family History Family History Father Heart disease Mother No problems noted. Surgical History Surgical History H/O lithotripsy History of hysterectomy (~2011) History of local excision of skin lesion History of surgical removal of skin lesion (08/27/22) Social History Social History Alcohol intake: never Patient Tobacco Use Status: Never used Tobacco Second Hand Smoke Exposure: No Advance Directives: No Advance Directives Information Provided: Yes Meds Allergies Allergy/AdvReac Type Severity Reaction Status Date / Time diphenhydramine Allergy Intermediate HALLUCINATI Verified 03/11/23 10:36 [From BENADRYL] ONS morphine [MORPHINE] Allergy Intermediate DIAPHORESIS; Verified 03/11/23 10:36 TACHYCARDIA, palpitations, sweating, tingling of hands and face quetiapine [From SEROQUEL] Allergy Intermediate PALPITATION Verified 03/11/23 10:36 S seafood Allergy Intermediate redness/itc Verified 03/11/23 10:36 akhil tomato Allergy Intermediate Blister Verified 03/11/23 10:36 trazodone [TRAZODONE] Allergy Intermediate GI Upset, Verified 03/11/23 10:36 HEART RACING, palpitations pineapple Allergy Unknown Unknown Verified 03/11/23 10:36 prednisone [PREDNISONE] AdvReac Intermediate HEART RACES Verified 03/11/23 10:36 Home Medications Medication Instructions Recorded Confirmed Last Taken Type albuterol sulfate 90 mcg/actuation 2 puff inhalation Q4-6H PRN 10/01/20 03/08/23 10/09/20 06:30 History aerosol inhaler Shortness Of Breath albuterol sulfate 2.5 mg/3 mL 2.5 mg inhalation TID PRN wheezing 04/15/21 03/08/23 Unknown History (0.083 %) solution for nebulization buspirone 10 mg tablet 10 mg PO TID 04/15/21 03/08/23 Unknown History docusate sodium 100 mg capsule 100 mg PO BID PRN Constipation 04/15/21 03/08/23 Unknown History magnesium oxide 400 mg (241.3 mg 200 mg PO DAILY 04/15/21 03/08/23 Unknown History magnesium) tablet pantoprazole 40 mg tablet,delayed 40 mg PO DAILY 04/15/21 03/08/23 Unknown History release sennosides 8.6 mg tablet (Senna 17.2 mg PO DAILY PRN constipation 04/15/21 03/08/23 Unknown History Laxative) terconazole 0.4 % vaginal cream 1 appful vaginal BEDTIME 04/15/21 03/08/23 Unknown History vitamin A 3,000 mcg (10,000 unit) 1 cap PO DAILY 04/15/21 03/08/23 Unknown History capsule escitalopram oxalate 20 mg tablet 20 mg PO DAILY 12/16/21 03/08/23 Unknown History sumatriptan succinate 50 mg tablet 50 mg PO ONCE migraine 01/07/22 03/08/23 Unknown History clonazepam 0.5 mg tablet 0.5 mg PO DAILY PRN anxiety 02/03/22 03/08/23 Unknown History Exam Exam Date and Time: March 10, 2023 1000 Height,Weight and Vital Signs: Height 5 ft Weight 90.265 kg Pertinent Lab Results Pertinent Lab Results: Laboratory Tests 08/21/22 02/09/23 16:14 10:43 WBC 9.5 Hgb 14.1 Hct 42.6 Plt Count 305 Sodium 144 Potassium 3.4 Chloride 109 H Carbon Dioxide 24 BUN 8 L Creatinine 0.74 Narrative Narrative: EKG 07/2022 Vent. Rate : 096 BPM ? ? Atrial Rate : 096 BPM ?? P-R Int : 154 ms? QRS Dur : 078 ms ? ? QT Int : 340 ms ? ? ? P-R-T Axes : 035 013 023 degrees ?? QTc Int : 429 ms ? Normal sinus rhythm Minimal voltage criteria for LVH, may be normal variant ( R in aVL ) Borderline ECG When compared with ECG of 11-AUG-2022 10:51, No significant change was found ? Assessment and Plan Assessment Anesthesia Assessment: Chart Reviewed Documented by User: Joshua De Dios MD 03/11/23 10:42 [facility] Past Medical History Medical History Anxiety Asthma Diabetes mellitus Elevated cholesterol Fatty liver GERD (gastroesophageal reflux disease) HLD (hyperlipidemia) HTN (hypertension) Migraines T2DM (type 2 diabetes mellitus) Transaminitis Vitamin D deficiency Family History Family History Father Heart disease Mother No problems noted. Family history of problems with anesthesia: No Surgical History Surgical History H/O lithotripsy History of hysterectomy (~2011) History of local excision of skin lesion History of surgical removal of skin lesion (08/27/22) History of Problems with Anesthesia: No Social History Social History Alcohol intake: never Patient Tobacco Use Status: Never used Tobacco Second Hand Smoke Exposure: No Advance Directives: No Advance Directives Information Provided: Yes Meds Allergies Allergy/AdvReac Type Severity Reaction Status Date / Time diphenhydramine Allergy Intermediate HALLUCINATI Verified 03/11/23 10:36 [From BENADRYL] ONS morphine [MORPHINE] Allergy Intermediate DIAPHORESIS; Verified 03/11/23 10:36 TACHYCARDIA, palpitations, sweating, tingling of hands and face quetiapine [From SEROQUEL] Allergy Intermediate PALPITATION Verified 03/11/23 10:36 S seafood Allergy Intermediate redness/itc Verified 03/11/23 10:36 akhil tomato Allergy Intermediate Blister Verified 03/11/23 10:36 trazodone [TRAZODONE] Allergy Intermediate GI Upset, Verified 03/11/23 10:36 HEART RACING, palpitations pineapple Allergy Unknown Unknown Verified 03/11/23 10:36 prednisone [PREDNISONE] AdvReac Intermediate HEART RACES Verified 03/11/23 10:36 Home Medications Medication Instructions Recorded Confirmed Last Taken Type albuterol sulfate 90 mcg/actuation 2 puff inhalation Q4-6H PRN 10/01/20 03/08/23 10/09/20 06:30 History aerosol inhaler Shortness Of Breath albuterol sulfate 2.5 mg/3 mL 2.5 mg inhalation TID PRN wheezing 04/15/21 03/08/23 Unknown History (0.083 %) solution for nebulization buspirone 10 mg tablet 10 mg PO TID 04/15/21 03/08/23 Unknown History docusate sodium 100 mg capsule 100 mg PO BID PRN Constipation 04/15/21 03/08/23 Unknown History magnesium oxide 400 mg (241.3 mg 200 mg PO DAILY 04/15/21 03/08/23 Unknown History magnesium) tablet pantoprazole 40 mg tablet,delayed 40 mg PO DAILY 04/15/21 03/08/23 Unknown History release sennosides 8.6 mg tablet (Senna 17.2 mg PO DAILY PRN constipation 04/15/21 03/08/23 Unknown History Laxative) terconazole 0.4 % vaginal cream 1 appful vaginal BEDTIME 04/15/21 03/08/23 Unknown History vitamin A 3,000 mcg (10,000 unit) 1 cap PO DAILY 04/15/21 03/08/23 Unknown History capsule escitalopram oxalate 20 mg tablet 20 mg PO DAILY 12/16/21 03/08/23 Unknown History sumatriptan succinate 50 mg tablet 50 mg PO ONCE migraine 01/07/22 03/08/23 Unknown History clonazepam 0.5 mg tablet 0.5 mg PO DAILY PRN anxiety 02/03/22 03/08/23 Unknown History Exam Airway Mallampati Class: II TM Dist: >3cm Neck ROM: Limited Heart: rrr Lungs: cta Assessment and Plan Assessment Anesthesia Assessment: Anesthesia Plan Discussed Final Anesthetic Review Family History of Problems with Anesthesia: No History of Problems with Anesthesia: No NPO: Yes ASA Class: III Final Preanesthetic Review: No Changes in Pt Med Stat, Meds/Allgs Chart Reviewed, Consent Obtained/Reviewed and Anes Risks/Benef Reviewed Patient Risk: Intermediate Procedure Risk: Low Anesthetic Plan Anesthetic Plan: GA, MAC: and Agree w/ Assess. and Plan Disposition: Standard PACU
--- NOTE | 2023-03-10 10:56 | MHC.SHP ---
Pre-Procedural Eval Section A Date of Service: 03/10/23 The patient is an INPATIENT: No Changes since office visit: No Cold of Flu in the past 2 weeks, No New Medical Problems, No Changes in Medication and No Patient answered all questions The History & Physical has been completed within 30 days and I have reviewed it.: Yes Section B Chief Complaint: Scar conditions and fibrosis of skin Allergies: Allergies Allergy/AdvReac Type Severity Reaction Status Date / Time diphenhydramine Allergy Intermediate HALLUCINATI Verified 03/08/23 15:16 [From BENADRYL] ONS morphine [MORPHINE] Allergy Intermediate DIAPHORESIS; Verified 02/09/23 11:06 TACHYCARDIA, palpitations, sweating, tingling of hands and face quetiapine [From SEROQUEL] Allergy Intermediate PALPITATION Verified 02/09/23 11:06 S seafood Allergy Intermediate redness/itc Verified 03/08/23 15:16 akhil tomato Allergy Intermediate Blister Verified 02/09/23 11:06 trazodone [TRAZODONE] Allergy Intermediate GI Upset, Verified 02/09/23 11:06 HEART RACING, palpitations pineapple Allergy Unknown Unknown Verified 03/08/23 15:25 prednisone [PREDNISONE] AdvReac Intermediate HEART RACES Verified 03/08/23 15:16 Plan I have reviewed the history and physical and performed a pertinent physical examination on my patient. No changes have occurred unless specified. Time Spent With Patient Time: Total time managing care of this patient today ____ minutes.
[2023-03-11 10:39] VITALS: BP 150/96; PULSE 82; RESP 16; TEMP 36.7; O2SAT 99; BMI 38.7
[2023-03-11 10:46] LABS: Glucose, Whole Blood 118 mg/dL (60-115)
[2023-03-11] MEDS: Lactated Ringers 1,000 ML 100 ML IVCONT (10:55)
--- NOTE | 2023-03-11 12:11 | P.OP_ITS ---
Operative Note Operative Note Date of Service: 03/11/23 Narrative: Preoperative diagnosis: [] Left upper inner arm hypertrophic scar Postop diagnosis: [] Same Procedure [] excision left upper inner arm scar. Surgeon: [] Andres Workers Compensation Claims Adjuster: [] THERESE Andrade Type of Anesthesia: [] MAC Indication for surgery: [] Final specimen measured approximately 5 x 2 cm consisting of hypertrophic scar of left upper inner arm. Findings: [] Patient brought to operating room, placed on operative table in a supine position, after adequate level of MAC anesthesia was induced, along with 1% lidocaine/0.5% Marcaine, the left upper inner arm was prepped and draped in usual sterile fashion. Using a by elliptical incision to grossly uninvolved skin to a left upper inner arm hypertrophic scar, this carried down through skin, subcutaneous tissue, and undermined and amputated using Bovie. Upper lower skin flaps were developed using Bovie and wound was irrigated, secured hemostasis, and closed using interrupted inverted dermal 3-0 Vicryl sutures followed by Steri-Strips and sterile dressings. Sponge, needle, and instrument counts reported correct. Patient tolerated the procedure well and emerged anesthesia stable condition. EBL minimal
[2023-03-11 12:18] VITALS: BP 117/73; PULSE 93; RESP 16; TEMP 36.3; O2SAT 98
[2023-03-11 12:32] VITALS: BP 131/82; PULSE 86; RESP 14; O2SAT 98
[2023-03-11 12:47] VITALS: BP 139/92; PULSE 80; RESP 12; TEMP 36.3; O2SAT 98
== END 2023-03-11 13:06 | disposition home or self-care (01) ==
PROVIDERS: PCP Registered Nurse; Visit Provider Surgery
PROC: (CPT 11406; principal; 2023-03-11 13:00)
DX: L90.5 Scar conditions and fibrosis of skin (principal); E11.9 Type 2 diabetes mellitus without complications; I10 Essential (primary) hypertension; J45.909 Unspecified asthma, uncomplicated; Z88.8 Allergy status to other drugs, medicaments and biological substances
CPT/HCPCS: 11406; 82947; 88304; 88305; J0690; J2795

== ENCOUNTER → 2023-03-11 10:11 | Outpatient (BNV) | payer MEDICAID, SELFPAY | PROVIDERS: PCP Registered Nurse; Visit Provider Surgery | DX: L91.0 Hypertrophic scar (principal) | CPT/HCPCS: 11406 ==

== ENCOUNTER 2023-03-22 12:44 | Outpatient (AMB) | payer MEDICAID, SELFPAY ==
[2023-03-22 12:54] VITALS: BP 120/76; PULSE 88
--- NOTE | 2023-03-22 12:54 | MHC.OFFVIS ---
Intake Vital Signs 03/22/23 12:54 Weight 197 lb BP 120/76 Blood Pressure Location Rt brachial Position Sitting Pulse 88 Intake Visit Reasons: S/P WLE LUE mass Intake Note: Patient here s/o exc of mass on Lt upper arm. Patient reports tenderness with touch. C/o one small white thread coming out. Still taking rx pain meds as needed. 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 Accompanied by: Self / Same As Patient Allergies diphenhydramine [From BENADRYL] Allergy (Intermediate, Verified 03/22/23 12:56) HALLUCINATIONS morphine [MORPHINE] Allergy (Intermediate, Verified 03/22/23 12:56) DIAPHORESIS; TACHYCARDIA, palpitations, sweating, tingling of hands and face quetiapine [From SEROQUEL] Allergy (Intermediate, Verified 03/22/23 12:56) PALPITATIONS seafood Allergy (Intermediate, Verified 03/22/23 12:56) redness/itching tomato Allergy (Intermediate, Verified 03/22/23 12:56) Blister trazodone [TRAZODONE] Allergy (Intermediate, Verified 03/22/23 12:56) GI Upset, HEART RACING, palpitations pineapple Allergy (Unknown, Verified 03/22/23 12:56) Unknown prednisone [PREDNISONE] Adverse Reaction (Intermediate, Verified 03/22/23 12:56) HEART RACES HPI HPI Comments History of Present Illness Details Patient presents for follow-up. She has no incisional discomfort or complaints. Pathology is benign. [facility] Medical History Anxiety Asthma Diabetes mellitus Elevated cholesterol Fatty liver GERD (gastroesophageal reflux disease) HLD (hyperlipidemia) HTN (hypertension) Migraines T2DM (type 2 diabetes mellitus) Transaminitis Vitamin D deficiency Surgical History H/O lithotripsy History of hysterectomy (~2011) History of local excision of skin lesion History of surgical removal of skin lesion (08/27/22) Family History Father Heart disease Mother No problems noted. Social History Alcohol intake: never Patient Tobacco Use Status: Never used Tobacco Second Hand Smoke Exposure: No Physical Exam Vital Signs: Last Vital Signs Pulse 88 03/22/23 12:54 BP 120/76 03/22/23 12:54 Extrem Other: Wound is healing uneventfully with good 1st intention. Assessment & Plan Assessment & Plan (1) Scar contracture: Code(s): L90.5 - Scar conditions and fibrosis of skin Plan Patient has been given specific local instructions, and will follow-up p.r.n. Coding Level of Care Code Global (87299) Diagnoses Scar contracture L90.5
== END 2023-03-22 12:58 | disposition home or self-care (01) ==
PROVIDERS: PCP Registered Nurse; Visit Provider Surgery
DX: L90.5 Scar conditions and fibrosis of skin (principal)
CPT/HCPCS: 99024

== ENCOUNTER → 2023-03-22 12:44 | Outpatient (BNVA) | payer MEDICAID, SELFPAY | PROVIDERS: PCP Registered Nurse; Visit Provider Surgery ==

== ENCOUNTER 2023-06-25 18:13 | Emergency (ER) | payer MEDICAID, SELFPAY ==
--- NOTE | ~2023-06-25 | XR_ITS ---
EXAMINATION: XR CHEST CLINICAL INFORMATION: Chest pain. COMPARISON: CT chest and chest radiograph 08/21/2022. TECHNIQUE: 2 views of the chest were obtained. FINDINGS: Normal appearance of the cardiomediastinal silhouette. No focal airspace opacity, pleural effusion or pneumothorax. No acute osseous findings. Visualized upper abdomen is within normal limits. XR/XR chest 2V IMPRESSION: No acute cardiopulmonary findings.
--- NOTE | 2023-06-25 18:14 | ECG_ITS ---
Test Reason : CHEST PAIN Blood Pressure : / mmHG Vent. Rate : 112 BPM Atrial Rate : 112 BPM P-R Int : 158 ms QRS Dur : 076 ms QT Int : 332 ms P-R-T Axes : 032 016 021 degrees QTc Int : 453 ms Sinus tachycardia Otherwise normal ECG When compared with ECG of 21-AUG-2022 16:02, No significant change was found Referred By: Lorri Hatfield Electronically Signed By:GABRIELLA PRADO MD
[2023-06-25 18:19] VITALS: BP 143/99; PULSE 126; RESP 22; TEMP 36.8; O2SAT 100; BMI 39.0
--- NOTE | 2023-06-25 18:22 | ED_ITS ---
HPI - General Adult General Chief complaint: Chest Pain Stated complaint: chest pain, multiple comp Time Seen by Provider: 06/25/23 21:20 Source: patient Mode of arrival: ambulatory Limitations: no limitations History of Present Illness HPI narrative: Patient is a 42-year-old Citizen [place]-speaking female with history of HTN, HLD, T2 dm, asthma, fatty liver, migraines, GERD, anxiety, transaminitis presenting to the ED with complaint of chest pain for 3 days. Also complains of facial and bilateral upper arm tingling and headache. Denies worst headache of life or worst at onset. Denies any vision changes. Patient tachycardic to 128 in triage. Reports has had similar symptoms in the past which improved with IV fluids patient is taking Klonopin for anxiety which she has taken earlier patient does get fast heart rate whenever she is anxious but at this time she is not feeling anxious patient was told to drink plenty of fluid but she is not to drinking patient losartan for hypertension Chest pain sharp in character lasting only for few seconds off and on for last 3 days similar in the past since 17:00 noticed tingling of the left side of the face and left arm which has gone by now no deformity of the face no speech problem no focal deficit patient has mild headache with history of migraine in the past no nausea no vomiting Related Data Home Medications Medication Instructions Recorded Confirmed albuterol sulfate 90 mcg/actuation 2 puff inhalation Q4-6H PRN 10/01/20 03/11/23 aerosol inhaler Shortness Of Breath albuterol sulfate 2.5 mg/3 mL 2.5 mg inhalation TID PRN wheezing 04/15/21 03/11/23 (0.083 %) solution for nebulization buspirone 10 mg tablet 10 mg PO TID 04/15/21 03/11/23 docusate sodium 100 mg capsule 100 mg PO BID PRN Constipation 04/15/21 03/11/23 magnesium oxide 400 mg (241.3 mg 200 mg PO DAILY 04/15/21 03/11/23 magnesium) tablet pantoprazole 40 mg tablet,delayed 40 mg PO DAILY 04/15/21 03/11/23 release sennosides 8.6 mg tablet (Senna 17.2 mg PO DAILY PRN constipation 04/15/21 03/11/23 Laxative) terconazole 0.4 % vaginal cream 1 appful vaginal BEDTIME 04/15/21 03/11/23 vitamin A 3,000 mcg (10,000 unit) 1 cap PO DAILY 04/15/21 03/11/23 capsule escitalopram oxalate 20 mg tablet 20 mg PO DAILY 12/16/21 03/11/23 sumatriptan succinate 50 mg tablet 50 mg PO ONCE migraine 01/07/22 03/11/23 clonazepam 0.5 mg tablet 0.5 mg PO DAILY PRN anxiety 02/03/22 03/11/23 Previous Rx's Medication Instructions Recorded blood-glucose meter (FreeStyle #1 ea 07/07/20 Lite Meter kit) ketorolac 10 mg tablet 10 mg PO Q8H PRN pain #10 tabs 02/23/21 tramadol 50 mg tablet 50 mg PO Q8H PRN pain (scale score 04/15/21 1-3) #14 tabs lisinopril 5 mg tablet 5 mg PO DAILY #30 tabs 02/18/22 cholecalciferol (vitamin D3) 50 50 mcg PO DAILY 30 days #30 caps 03/10/22 mcg (2,000 unit) capsule metformin 1,000 mg tablet 1,000 mg PO BID 30 days #60 tabs 03/10/22 cyclobenzaprine 10 mg tablet 10 mg PO TID PRN muscle spasm #10 07/13/22 tabs ibuprofen 600 mg tablet 600 mg PO Q6H PRN pain #30 tabs 07/13/22 liraglutide 0.6 mg/0.1 mL (18 mg/3 1.8 mg (0.3 mL) subcut Q24H 30 09/16/22 mL) subcutaneous pen injector days #9 mL (Victoza 3-Dmitry) pen needle, diabetic 32 gauge x #50 ea 11/11/2208/26 (BD Ultra-Fine Micro Pen Needle) blood sugar diagnostic (FreeStyle #100 ea 02/05/23 Lite Strips) empagliflozin 25 mg tablet 25 mg PO DAILY 30 days #30 tabs 03/10/23 (Jardiance) lancets 33 gauge (TRUEplus Lancets) 1 gauge miscellaneous QID for 03/10/23 diabetes mellitus 30 days #100 ea pyridoxine (vitamin B6) 100 mg 100 mg PO DAILY 90 days #90 tabs 03/10/23 tablet oxycodone 5 mg capsule 5 mg PO Q4H PRN pain #30 caps 03/11/23 atorvastatin 40 mg tablet 40 mg PO DAILY #90 tabs 03/12/23 metoprolol tartrate 25 mg tablet 12.5 mg (1/2 x 25 mg) PO BID #30 06/25/23 tabs Allergies Allergy/AdvReac Type Severity Reaction Status Date / Time diphenhydramine Allergy Intermediate HALLUCINATI Verified 06/25/23 18:25 [From BENADRYL] ONS morphine [MORPHINE] Allergy Intermediate DIAPHORESIS; Verified 06/25/23 18:25 TACHYCARDIA, palpitations, sweating, tingling of hands and face quetiapine [From SEROQUEL] Allergy Intermediate PALPITATION Verified 06/25/23 18:25 S seafood Allergy Intermediate redness/itc Verified 06/25/23 18:25 akhil tomato Allergy Intermediate Blister Verified 06/25/23 18:25 trazodone [TRAZODONE] Allergy Intermediate GI Upset, Verified 06/25/23 18:25 HEART RACING, palpitations pineapple Allergy Unknown Unknown Verified 06/25/23 18:25 prednisone [PREDNISONE] AdvReac Intermediate HEART RACES Verified 06/25/23 18:25 Review of Systems 2 Review of Systems: Yes all other systems are reviewed and are negative PMFSH Past Medical History Medical History Transaminitis GERD (gastroesophageal reflux disease) Anxiety Migraines Fatty liver Elevated cholesterol Asthma Vitamin D deficiency HLD (hyperlipidemia) HTN (hypertension) T2DM (type 2 diabetes mellitus) Diabetes mellitus Surgical History History of surgical removal of skin lesion (08/27/22) H/O lithotripsy History of local excision of skin lesion History of hysterectomy (~2011) Family History Family History Father Heart disease Mother No problems noted. Social History Social History Alcohol intake: never Patient Tobacco Use Status: Never used Tobacco Second Hand Smoke Exposure: No Advance Directives: No Advance Directives Information Provided: Yes Physical Exam ED Vital Signs: Vital Signs - 24 hr 06/25/23 18:19 06/25/23 21:19 06/25/23 21:43 Temperature 98.2 F Pulse Rate 126 H 100 98 Respiratory Rate 22 H 18 14 Blood Pressure 143/99 H 128/73 138/82 Pulse Oximetry 100 99 Oxygen Delivery Method Room Air Room Air BMI result Body Mass Index 39.0 Appearance: Alert. Oriented X3. No acute distress. Eyes: PERRLA, No Nystagmus ENT: Pharynx normal. Oral Mucosa moist symmetrical face Neck: Normal inspection. Neck supple. CVS: Normal heart rate and rhythm. Pulses normal. Respiratory: No respiratory distress. Equal air entry bilateral, no wheezing/rales/rhonchi Abdomen: Soft and nontender. Bowel sounds are present, no mass palpable, no CVA tenderness Skin: Skin warm and dry. Normal skin color. Normal skin turgor. Extremities: No lower extremity edema. No calf tenderness Neuro: Oriented X 3. No motor deficit. No sensory deficit.No cerebellar signs , cranial nerves II-XII intact NIH Stroke Scale Time: 21:45 Level of Consciousness: Alert Level of Consciousness Questions: Answers both questions correctly Level of Consciousness Commands: Performs both tasks correctly Best Gaze: Normal Visual: No visual loss Facial Palsy: Normal Motor Arm (Right): No drift Motor Arm (Left): No drift Motor Leg (Right): No drift Motor Leg (Left): No drift Limb Ataxia: Absent Sensory: Normal Best Language: No aphasia Dysarthia: Normal Extinction and Inattention: No abnormality Score: 0 Course Course Course Narrative: This is a rapid medical exam: Additional HPI, ROS, PE not included below will be deferred to primary provider. Patient is a 42-year-old Citizen [place]-speaking female with history of HTN, HLD, T2 dm, asthma, fatty liver, migraines, GERD, anxiety, transaminitis presenting to the ED with complaint of chest pain for 3 days. Also complains of facial and bilateral upper arm tingling and headache. Denies worst headache of life or worst at onset. Denies any vision changes. Patient tachycardic to 128 in triage. Reports has had similar symptoms in the past which improved with IV fluids. Plan: EKG, labs, CXR Medications Administered Discontinued Medications Generic Name Dose Route Start Last Admin Trade Name Freq PRN Reason Stop Dose Admin Metoprolol Tartrate 12.5 mg 06/25/23 21:36 06/25/23 21:45 Metoprolol Tartrate 12.5 Mg Halftab PO 06/25/23 21:37 12.5 mg ONCE ONE Administration Protocol Medical Decision Making Medical Decision Making [facility] Narrative: Patient with atypical chest pain normal EKG normal troponin atypical tingling sensation likely from the migraine headache is gone now no signs of CVA or TIA. Patient tachycardic on standing with slight dizziness, heart rate increased to 120 likely POTS syndrome patient been told to drink plenty of fluids which she doing . Will start patient on beta-arlene metoprolol 12.5 twice daily Differential Diagnosis Differential Diagnoses: The differential diagnosis associated with the presentation includes Anxiety/Migraine/ACS/TIA Admission/Observation Consideration of admission/observation: Escalation of care including admission/observation considered Lab Data [facility] Lab Attestation statement: I reviewed the patient's lab results. 06/25/23 18:41 06/25/23 18:41 Labs: Lab Results 06/25/23 Range/Units 18:41 WBC 9.4 (4.8-10.8) X10*3/uL RBC 4.70 (4.20-5.50) X10*6/uL Hgb 13.2 (12.0-16.0) g/dl Hct 39.6 (37.0-47.0) % MCV 84.3 (80.0-98.0) fL MCH 28.1 (27.0-33.0) pg MCHC 33.3 (31.0-35.0) g/dl RDW 13.4 (11.0-16.0) % Plt Count 276 (160-400) X10*3/uL MPV 10.0 (9.4-12.3) fL Immature Gran % (Auto) 0.3 (0.0-0.4) % Neut % (Auto) 60.9 (45-73) % Lymph % (Auto) 30.6 (20-40) % [place] % (Auto) 6.3 (2-11) % Eos % (Auto) 1.6 (0-4) % Baso % (Auto) 0.3 (0-2) % Lymph # (Auto) 2.9 (1.2-4.9) X10*3/uL [place] # (Auto) 0.6 (0.1-1.2) X10*3/uL Eos # (Auto) 0.2 (0.0-0.4) X10*3/uL Baso # (Auto) 0.0 (0.0-0.2) X10*3/uL Abs Immat Gran (auto) 0.03 (0.00-0.03) X10*3/uL Absolute Neuts (auto) 5.7 (2.0-8.3) x10*3/uL Absolute Nucleated RBC 0.000 (0.0-0.012) X10*3/uL Nucleated RBC % (auto) 0.0 (0.0-0.2) /100WBC Sodium 143 (135-145) mmol/L Potassium 3.6 (3.3-5.1) mmol/L Chloride 108 (96-108) mmol/L Carbon Dioxide 24 (22-29) mmol/L Anion Gap 15 (12-20) BUN 10 (9-16) mg/dL Creatinine 0.75 (0.5-1.4) mg/dL Estim Creat Clear Calc 97.0 Estimated GFR > 60 Random Glucose 98 (60-115) mg/dL Calcium 9.9 (8.4-10.2) mg/dL Total Bilirubin 0.6 (0.0-1.0) mg/dL AST 35 H (5-31) U/L ALT 26 (0-31) U/L Alkaline Phosphatase 120 H (39-117) U/L Troponin I High Sens < 2.7 (<3.5-17.0) ng/L Total Protein 8.1 H (6.5-8.0) g/dL Albumin 4.4 (3.5-5.0) g/dL Beta HCG, Quant 3 mIU/mL Independent Interpretation I performed an independent interpretation of an: EKG and Plain X-Ray Interpretation: Sinus tachycardia with heart rate 112 beats per minute and normal intervals normal axis no acute ST-T change no acute skin Normal chest x-ray Radiology Impression Discussion of test interpretation with radiology: I have reviewed the radiologist's reading. External Record Review External record reviewed: Inpatient record Discharge Plan Discharge Clinical Impression: Atypical chest pain, POTS (postural orthostatic tachycardia syndrome) Patient Disposition: Home, Self-Care Instructions: Noncardiac Chest Pain (ED), Tachycardia (ED) Additional Instructions: Drink plenty of fluid Could you take your medications as prescribed before Start taking metoprolol 12.5 mg twice daily Follow-up with PCP Your heart rate increases on standing likely from decreased amount of fluid in the body/tachycardia syndrome Prescriptions: New metoprolol tartrate 25 mg tablet 12.5 mg PO BID Qty: 30 0RF No Action metformin 1,000 mg tablet 1,000 mg PO BID 30 Days Qty: 60 11RF cholecalciferol (vitamin D3) 50 mcg (2,000 unit) capsule 50 mcg PO DAILY 30 Days Qty: 30 11RF (DME) pen needle, diabetic [BD Ultra-Fine Micro Pen Needle] 32 gauge x 1/4 needle See Rx Instructions .ROUTE .MEDSUPPLY Qty: 50 11RF Rx Instructions: Once a day. (DME) FreeStyle Lite Strips Strip See Rx Instructions .ROUTE .MEDSUPPLY Qty: 100 11RF Rx Instructions: As directed Test blood glucose 3x daily. Jardiance 25 mg tablet 25 mg PO DAILY 30 Days Qty: 30 11RF lancets [TRUEplus Lancets] 33 gauge misc 1 gauge miscellaneous QID 30 Days Qty: 100 11RF atorvastatin 40 mg tablet 40 mg PO DAILY Qty: 90 1RF albuterol sulfate 90 mcg/actuation Hfa Aerosol Inhaler 2 puff INHALATION Q4-6H PRN (Reason: Shortness Of Breath) ketorolac 10 mg tablet 10 mg PO Q8H PRN (Reason: pain) Qty: 10 0RF ibuprofen 600 mg tablet 600 mg PO Q6H PRN (Reason: pain) Qty: 30 0RF cyclobenzaprine 10 mg tablet 10 mg PO TID PRN (Reason: muscle spasm) Qty: 10 0RF oxycodone 5 mg capsule 5 mg PO Q4H PRN (Reason: pain) Qty: 30 0RF Rx Instructions: Partial Fill upon patient request. (DME) blood-glucose meter [FreeStyle Lite Meter] Kit See Rx Instructions .ROUTE .MEDSUPPLY Qty: 1 0RF Rx Instructions: As directed terconazole 0.4 % cream 1 appful vaginal BEDTIME pantoprazole 40 mg tablet,delayed release (DR/EC) 40 mg PO DAILY albuterol sulfate 2.5 mg /3 mL (0.083 %) solution for nebulization 2.5 mg inhalation TID PRN (Reason: wheezing) sennosides [Senna Laxative] 8.6 mg tablet 17.2 mg PO DAILY PRN (Reason: constipation) docusate sodium 100 mg capsule 100 mg PO BID PRN (Reason: Constipation) buspirone 10 mg tablet 10 mg PO TID vitamin A 10,000 unit capsule 1 cap PO DAILY magnesium oxide 400 mg (241.3 mg magnesium) tablet 200 mg PO DAILY tramadol 50 mg tablet 50 mg PO Q8H PRN (Reason: pain (scale score 1-3)) Qty: 14 0RF lisinopril 5 mg tablet 5 mg PO DAILY Qty: 30 5RF escitalopram oxalate 20 mg tablet 20 mg PO DAILY sumatriptan succinate 50 mg tablet 50 mg PO ONCE clonazepam 0.5 mg tablet 0.5 mg PO DAILY PRN (Reason: anxiety) Victoza 3-Dmitry 0.6 mg/0.1 mL (18 mg/3 mL) pen injector 1.8 mg subcut Q24H 30 Days Qty: 9 11RF pyridoxine (vitamin B6) 100 mg tablet 100 mg PO DAILY 90 Days Qty: 90 3RF Interventions: ED Discharge Assessment Last Done: 06/25/23 22:52 Discharge Date/Time: 06/25/23 22:53
[2023-06-25 18:45] LABS: MANUAL DIFF FLAG NO
[2023-06-25 18:53] LABS: Basophils Percent Auto 0.3 % (0-2); Eosinophils Absolute Auto 0.2 X10*3/uL (0.0-0.4); Eosinophils Percent Auto 1.6 % (0-4); Hematocrit 39.6 % (37.0-47.0); Hemoglobin 13.2 g/dl (12.0-16.0); Imm Gran Abs Auto 0.03 X10*3/uL (0.00-0.03); Imm Gran Pct Auto 0.3 % (0.0-0.4); Lymphocytes Absolute Auto 2.9 X10*3/uL (1.2-4.9); Lymphocytes Percent Auto 30.6 % (20-40); Mean Corpuscular HGB Conc 33.3 g/dl (31.0-35.0); Mean Corpuscular Hemoglobin 28.1 pg (27.0-33.0); Mean Corpuscular Volume 84.3 fL (80.0-98.0); Monocytes Absolute Auto 0.6 X10*3/uL (0.1-1.2); Monocytes Percent Auto 6.3 % (2-11); Neutrophils Absolute Auto 5.7 x10*3/uL (2.0-8.3); Neutrophils Percent Auto 60.9 % (45-73); Platelet Count 276 X10*3/uL (160-400); Red Cell Distribution Width 13.4 % (11.0-16.0); White Blood Count 9.4 X10*3/uL (4.8-10.8)
[2023-06-25 19:00] LABS: Alanine Aminotransferase 26 U/L (0-31); Albumin Level 4.4 g/dL (3.5-5.0); Alkaline Phosphatase 120 U/L (39-117); Anion Gap 15 (12-20); Aspartate Amino Transferase 35 U/L (5-31); Bilirubin Total 0.6 mg/dL (0.0-1.0); Blood Urea Nitrogen 10 mg/dL (9-16); Calcium 9.9 mg/dL (8.4-10.2); Carbon Dioxide 24 mmol/L (22-29); Chloride 108 mmol/L (96-108); Estimated Glomerular Filt Rate > 60; Glucose Random 98 mg/dL (60-115); Potassium 3.6 mmol/L (3.3-5.1); Sodium 143 mmol/L (135-145); Total Protein 8.1 g/dL (6.5-8.0)
[2023-06-25 19:06] LABS: HCG Quantitative 3 mIU/mL
[2023-06-25 19:11] LABS: Troponin-I High Sensitivity < 2.7 ng/L (<3.5-17.0)
[2023-06-25 21:19] VITALS: BP 128/73; PULSE 100; RESP 18; O2SAT 99
[2023-06-25 21:43] VITALS: BP 138/82; PULSE 98; RESP 14
[2023-06-25] MEDS: Metoprolol Tartrate 12.5 MG HALFTAB PO (21:45)
[2023-06-25 22:00] VITALS: BP 203/66; PULSE 84; RESP 17
[2023-06-25 22:35] VITALS: BP 145/98
== END 2023-06-25 22:53 | disposition home or self-care (01) ==
PROVIDERS: Registered Nurse Emergency; Emergency Provider Internal Medicine
DX: R07.89 Other chest pain (principal); G90.A Postural orthostatic tachycardia syndrome [POTS]; I10 Essential (primary) hypertension; E11.9 Type 2 diabetes mellitus without complications; G43.909 Migraine, unspecified, not intractable, without status migrainosus; Z79.899 Other long term (current) drug therapy; Z79.4 Long term (current) use of insulin; Z79.85 Long-term (current) use of injectable non-insulin antidiabetic drugs
CPT/HCPCS: 36415; 71046; 80053; 84484; 84702; 85025; 93005; 99283; 99285

== ENCOUNTER 2023-07-20 10:16 | Outpatient (AMB) | payer MEDICAID, SELFPAY ==
--- NOTE | 2023-07-20 10:32 | MHC.OFFVIS ---
Intake Vital Signs 07/20/23 10:33 Weight 201 lb BP 154/92 H Blood Pressure Location Rt brachial Position Sitting Pulse 112 H Intake Visit Reasons: Skin lesion vs lipoma on abd Intake Note: Patient here for skin lesion on abd. Lesion present for 1-2m. C/o pain when pressed on. States has to wear pants lower due to tenderness when pants rub on. 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 Accompanied by: Self / Same As Patient Allergies diphenhydramine [From BENADRYL] Allergy (Intermediate, Verified 07/20/23 10:36) HALLUCINATIONS morphine [MORPHINE] Allergy (Intermediate, Verified 07/20/23 10:36) DIAPHORESIS; TACHYCARDIA, palpitations, sweating, tingling of hands and face quetiapine [From SEROQUEL] Allergy (Intermediate, Verified 07/20/23 10:36) PALPITATIONS seafood Allergy (Intermediate, Verified 07/20/23 10:36) redness/itching tomato Allergy (Intermediate, Verified 07/20/23 10:36) Blister trazodone [TRAZODONE] Allergy (Intermediate, Verified 07/20/23 10:36) GI Upset, HEART RACING, palpitations pineapple Allergy (Unknown, Verified 07/20/23 10:36) Unknown prednisone [PREDNISONE] Adverse Reaction (Intermediate, Verified 07/20/23 10:36) HEART RACES Medication List - Last Reviewed 07/20/23 by TAQUERIA Taylor albuterol sulfate 90 mcg/actuation 2 puffs inhalation Q4-6H PRN albuterol sulfate 2.5 mg inhalation TID PRN atorvastatin 40 mg PO DAILY blood sugar diagnostic (FreeStyle Lite Strips) As directed Test blood glucose 3x daily. blood-glucose meter (FreeStyle Lite Meter kit) As directed buspirone 10 mg PO TID cholecalciferol (vitamin D3) 50 mcg PO DAILY 30 days clonazepam 0.5 mg PO DAILY PRN cyclobenzaprine 10 mg PO TID PRN docusate sodium 100 mg PO BID PRN empagliflozin (Jardiance) 25 mg PO DAILY 30 days escitalopram oxalate 20 mg PO DAILY ibuprofen 600 mg PO Q6H PRN ketorolac 10 mg PO Q8H PRN lancets (TRUEplus Lancets) 1 gauge miscellaneous QID 30 days liraglutide (Victoza 3-Dmitry) 1.8 mg (0.3 mL) subcut Q24H 30 days lisinopril 5 mg PO DAILY magnesium oxide 200 mg PO DAILY metformin 1,000 mg PO BID 30 days metoprolol tartrate 12.5 mg (1/2 x 25 mg) PO BID oxycodone 5 mg PO Q4H PRN pantoprazole 40 mg PO DAILY pen needle, diabetic (BD Ultra-Fine Micro Pen Needle) Once a day. pyridoxine (vitamin B6) 100 mg PO DAILY 90 days sennosides (Senna Laxative) 17.2 mg PO DAILY PRN sumatriptan succinate 50 mg PO ONCE terconazole 0.4% 1 appful vaginal BEDTIME tramadol 50 mg PO Q8H PRN vitamin A 1 cap PO DAILY HPI HPI Comments History of Present Illness Details Patient is status post lap assisted hysterectomy in the past. She presents with a left lateral abdominal wall port site pain. Because of persistence of symptoms, she presents for further evaluation. She she has not noticed a bulge per se. Patient is tolerating her diet. She is having regular bowel habits. Chart was reviewed patient evaluated [facility] Medical History Transaminitis GERD (gastroesophageal reflux disease) Anxiety Migraines Fatty liver Elevated cholesterol Asthma Vitamin D deficiency HLD (hyperlipidemia) HTN (hypertension) T2DM (type 2 diabetes mellitus) Diabetes mellitus Surgical History History of surgical removal of skin lesion (08/27/22) H/O lithotripsy History of local excision of skin lesion History of hysterectomy (~2011) Family History Father Heart disease Mother No problems noted. Alcohol intake: never Patient Tobacco Use Status: Never used Tobacco Second Hand Smoke Exposure: No Physical Exam GI Other: Patient was examined both supine and standing with Valsalva. Moderately corpulent abdomen. Multiple incision sites from hysterectomy. Left mid abdomen port site tender. Because of the patient's size, difficulty to ascertain if there is an underlying hernia. Remaining abdominal exam benign. Assessment & Plan Assessment & Plan (1) Flank pain: Code(s): R10.9 - Unspecified abdominal pain (2) Incisional hernia of anterior abdominal wall at trocar puncture site after laparoscopic procedure: Code(s): K91.89 - Other postprocedural complications and disorders of digestive system; K43.2 - Incisional hernia without obstruction or gangrene Plan Current plan is to obtain abdominal CT scan and direct further therapy based on these results. All questions were answered. Arrangements will be made for this. Patient will see me after the study. Orders: Orders CT abdomen pelvis wo/w IV con Today K43.2 - Incisional hernia without obstruction or gangrene, K91.89 - Other postprocedural complications and disorders of digestive system, R10.9 - Unspecified abdominal pain Coding Level of Care Code New Pt Level 4 (43269) Diagnoses Flank pain R10.9 Incisional hernia of anterior abdominal wall at trocar puncture site after laparoscopic procedure K91.89; K43.2
[2023-07-20 10:33] VITALS: BP 154/92; PULSE 112
== END 2023-07-20 10:33 | disposition home or self-care (01) ==
PROVIDERS: PCP Nurse Practitioner Family; Visit Provider Surgery
DX: R10.9 Unspecified abdominal pain (principal); K91.89 Other postprocedural complications and disorders of digestive system; K43.2 Incisional hernia without obstruction or gangrene
CPT/HCPCS: 99214

== ENCOUNTER → 2023-07-20 10:16 | Outpatient (BNVA) | payer MEDICAID, SELFPAY | PROVIDERS: Visit Provider Surgery | DX: K91.89 Other postprocedural complications and disorders of digestive system (principal); K43.2 Incisional hernia without obstruction or gangrene; R10.9 Unspecified abdominal pain | CPT/HCPCS: 99212 ==

== ENCOUNTER 2023-07-20 11:28 | Emergency (ER) | payer MEDICAID, SELFPAY ==
--- NOTE | ~2023-07-20 | XR_ITS ---
EXAMINATION: XR HAND, LEFT CLINICAL INFORMATION: Left hand pain. COMPARISON: Left finger radiographs dated 02/01/2023. TECHNIQUE: PA, lateral, and oblique views of the left hand. FINDINGS: The bones and soft tissues are normal. No fracture. Alignment is anatomic. Joint spaces are maintained. No erosions or soft tissue calcifications. XR/XR hand LT min 3V IMPRESSION: Unremarkable examination.
[2023-07-20 12:03] VITALS: BP 146/97; PULSE 100; RESP 18; TEMP 36.4; O2SAT 98; BMI 39.3
--- NOTE | 2023-07-20 12:03 | ED_ITS ---
HPI - General Adult General Chief complaint: Extremity Problem Stated complaint: L Thumb Pain No Injury Source: patient Mode of arrival: ambulatory Limitations: no limitations History of Present Illness HPI narrative: 42-year-old female with a pmhx of diabetes and hypertension who presents today for 2 months of left thumb pain. No trauma. She reports painful ROM. No numbness, tingling, fevers, or chills. Related Data Home Medications Medication Instructions Recorded Confirmed albuterol sulfate 90 mcg/actuation 2 puff inhalation Q4-6H PRN 10/01/20 03/11/23 aerosol inhaler Shortness Of Breath albuterol sulfate 2.5 mg/3 mL 2.5 mg inhalation TID PRN wheezing 04/15/21 03/11/23 (0.083 %) solution for nebulization buspirone 10 mg tablet 10 mg PO TID 04/15/21 03/11/23 docusate sodium 100 mg capsule 100 mg PO BID PRN Constipation 04/15/21 03/11/23 magnesium oxide 400 mg (241.3 mg 200 mg PO DAILY 04/15/21 03/11/23 magnesium) tablet pantoprazole 40 mg tablet,delayed 40 mg PO DAILY 04/15/21 03/11/23 release sennosides 8.6 mg tablet (Senna 17.2 mg PO DAILY PRN constipation 04/15/21 03/11/23 Laxative) terconazole 0.4 % vaginal cream 1 appful vaginal BEDTIME 04/15/21 03/11/23 vitamin A 3,000 mcg (10,000 unit) 1 cap PO DAILY 04/15/21 03/11/23 capsule escitalopram oxalate 20 mg tablet 20 mg PO DAILY 12/16/21 03/11/23 sumatriptan succinate 50 mg tablet 50 mg PO ONCE migraine 01/07/22 03/11/23 clonazepam 0.5 mg tablet 0.5 mg PO DAILY PRN anxiety 02/03/22 03/11/23 Previous Rx's Medication Instructions Recorded blood-glucose meter (Eusebioyle #1 ea 07/07/20 Lite Meter kit) ketorolac 10 mg tablet 10 mg PO Q8H PRN pain #10 tabs 02/23/21 tramadol 50 mg tablet 50 mg PO Q8H PRN pain (scale score 04/15/21 1-3) #14 tabs lisinopril 5 mg tablet 5 mg PO DAILY #30 tabs 02/18/22 cholecalciferol (vitamin D3) 50 50 mcg PO DAILY 30 days #30 caps 03/10/22 mcg (2,000 unit) capsule metformin 1,000 mg tablet 1,000 mg PO BID 30 days #60 tabs 03/10/22 cyclobenzaprine 10 mg tablet 10 mg PO TID PRN muscle spasm #10 07/13/22 tabs ibuprofen 600 mg tablet 600 mg PO Q6H PRN pain #30 tabs 07/13/22 liraglutide 0.6 mg/0.1 mL (18 mg/3 1.8 mg (0.3 mL) subcut Q24H 30 09/16/22 mL) subcutaneous pen injector days #9 mL (Victoza 3-Dmitry) pen needle, diabetic 32 gauge x #50 ea 11/11/2208/26 (BD Ultra-Fine Micro Pen Needle) blood sugar diagnostic (FreeStyle #100 ea 02/05/23 Lite Strips) empagliflozin 25 mg tablet 25 mg PO DAILY 30 days #30 tabs 03/10/23 (Jardiance) lancets 33 gauge (TRUEplus Lancets) 1 gauge miscellaneous QID for 03/10/23 diabetes mellitus 30 days #100 ea pyridoxine (vitamin B6) 100 mg 100 mg PO DAILY 90 days #90 tabs 03/10/23 tablet oxycodone 5 mg capsule 5 mg PO Q4H PRN pain #30 caps 03/11/23 atorvastatin 40 mg tablet 40 mg PO DAILY #90 tabs 03/12/23 metoprolol tartrate 25 mg tablet 12.5 mg (1/2 x 25 mg) PO BID #30 06/25/23 tabs acetaminophen 325 mg capsule 650 mg (2 x 325 mg) PO Q6H PRN 07/20/23 (Tylenol) pain #30 caps Allergies Allergy/AdvReac Type Severity Reaction Status Date / Time diphenhydramine Allergy Intermediate HALLUCINATI Verified 07/20/23 10:36 [From BENADRYL] ONS morphine [MORPHINE] Allergy Intermediate DIAPHORESIS; Verified 07/20/23 10:36 TACHYCARDIA, palpitations, sweating, tingling of hands and face quetiapine [From SEROQUEL] Allergy Intermediate PALPITATION Verified 07/20/23 10:36 S seafood Allergy Intermediate redness/itc Verified 07/20/23 10:36 akhil tomato Allergy Intermediate Blister Verified 07/20/23 10:36 trazodone [TRAZODONE] Allergy Intermediate GI Upset, Verified 07/20/23 10:36 HEART RACING, palpitations pineapple Allergy Unknown Unknown Verified 07/20/23 10:36 prednisone [PREDNISONE] AdvReac Intermediate HEART RACES Verified 07/20/23 10:36 Review of Systems Review of Systems: Constitutional : No Weight loss, No Fever, No Chills, No Fatigue, No Malaise ENT/Mouth : No sore throat, No Rhinorrhea Eyes: No Eye Pain, No Swelling, No Redness Cardiovascular : No Chest Pain, No SOB, No Dyspnea on Exertion, No Orthopnea, No Edema, No Palpitations Respiratory : No Cough, No Sputum, No Wheezing Gastrointestinal : No Nausea, No Vomiting, No Diarrhea, No Constipation, No abdominal Pain, No Hematochezia, No Melena Genitourinary : No Dysuria, No Urinary Frequency, No Hematuria, Musculoskeletal : + joint pain, No Myalgias, + Joint Swelling Skin : No Skin Lesions, No rash Neuro : No Weakness, No Numbness, No Dizziness, No Headache Psych : No Anxiety/Panic, No Depression All other systems reviewed and are negative Yes all other systems are reviewed and are negative [facility] Past Medical History Medical History Transaminitis GERD (gastroesophageal reflux disease) Anxiety Migraines Fatty liver Elevated cholesterol Asthma Vitamin D deficiency HLD (hyperlipidemia) HTN (hypertension) T2DM (type 2 diabetes mellitus) Diabetes mellitus Surgical History History of surgical removal of skin lesion (08/27/22) H/O lithotripsy History of local excision of skin lesion History of hysterectomy (~2011) Family History Family History Father Heart disease Mother No problems noted. Social History Social History Alcohol intake: never Patient Tobacco Use Status: Never used Tobacco Second Hand Smoke Exposure: No Advance Directives: No Advance Directives Information Provided: No Physical Exam ED Vital Signs: Vital Signs - 24 hr 07/20/23 12:03 Temperature 97.5 F Pulse Rate 100 Respiratory Rate 18 Blood Pressure 146/97 H Pulse Oximetry 98 Oxygen Delivery Method Room Air BMI result Body Mass Index 39.3 VSS Appearance: Alert.? Oriented X3.? No acute distress.? Head: Normocephalic, atraumatic, no step-offs or deformities Eyes: Pupils equal, round and reactive to light.? CVS: Pulses normal.? Respiratory: No respiratory distress.? Skin: Skin warm and dry.? Normal skin color.? Normal skin turgor.? Extremities: 5/5 strength to bilateral upper extremities. Full range of motion with pain to left thumb. Full painless ROM of right fingers. 2+ radial, ulnar, and brachial pulses bilaterally. No snuffbox tenderness bilaterally. No wrist drop bilaterally. Neuro: Oriented X 3.? No motor deficit.? No sensory deficit. CN 2-12 intact Course Course Course Narrative: 42-year-old female Reevaluation(s) Reevaluation #1: wet read xray unremarkable will dc from triage w/ tylenol. Educated patient on diagnosis and treatment plan, answered all question, patient verbalizes understanding. At this time patient will be discharged home, advised to return with new or worsening symptoms. Educated on worrisome signs and symptoms and when to return. At this time I feel comfortable discharge home. Time: 12:18 Medical Decision Making Medical Decision Making [facility] Narrative: 42-year-old female presents w/ L thumb pain x 2 months PE- slightly uncomfortable rom but otherwise benign Likley OA vs gout vs pseudogout. Unlikley NV compromise, threat to limb, fx/dislocation, septic joint. Plan imaging Differential Diagnosis Differential Diagnoses: The differential diagnosis associated with the presentation includes Likley OA vs gout vs pseudogout. Unlikley NV compromise, threat to limb, fx/dislocation, septic joint. Independent Interpretation I performed an independent interpretation of an: Plain X-Ray (seems unremarkable ) Radiology Impression Discussion of test interpretation with radiology: I have reviewed the radiologist's reading. Prescription Management I considered prescription management with: Pain Medication Discharge Plan Discharge Clinical Impression: Pain of left thumb, Osteoarthritis Patient Disposition: Home, Self-Care Instructions: Arthralgia (ED) Additional Instructions: Take your medications as prescribed. If you were prescribed antibiotics today, it is important that you take your medication to their entirety, do not skip any doses, do not finish them early. Follow-up with your primary care provider this week. Follow up with orthopedics if needed. Return to the emergency department with new or worsening symptoms. In case of emergency call 911 Prescriptions: New acetaminophen [Tylenol] 325 mg capsule 650 mg PO Q6H PRN (Reason: pain) Qty: 30 0RF No Action metformin 1,000 mg tablet 1,000 mg PO BID 30 Days Qty: 60 11RF cholecalciferol (vitamin D3) 50 mcg (2,000 unit) capsule 50 mcg PO DAILY 30 Days Qty: 30 11RF (DME) pen needle, diabetic [BD Ultra-Fine Micro Pen Needle] 32 gauge x 1/4 needle See Rx Instructions .ROUTE .MEDSUPPLY Qty: 50 11RF Rx Instructions: Once a day. (DME) FreeStyle Lite Strips Strip See Rx Instructions .ROUTE .MEDSUPPLY Qty: 100 11RF Rx Instructions: As directed Test blood glucose 3x daily. Jardiance 25 mg tablet 25 mg PO DAILY 30 Days Qty: 30 11RF lancets [TRUEplus Lancets] 33 gauge misc 1 gauge miscellaneous QID 30 Days Qty: 100 11RF atorvastatin 40 mg tablet 40 mg PO DAILY Qty: 90 1RF albuterol sulfate 90 mcg/actuation Hfa Aerosol Inhaler 2 puff INHALATION Q4-6H PRN (Reason: Shortness Of Breath) ketorolac 10 mg tablet 10 mg PO Q8H PRN (Reason: pain) Qty: 10 0RF ibuprofen 600 mg tablet 600 mg PO Q6H PRN (Reason: pain) Qty: 30 0RF cyclobenzaprine 10 mg tablet 10 mg PO TID PRN (Reason: muscle spasm) Qty: 10 0RF oxycodone 5 mg capsule 5 mg PO Q4H PRN (Reason: pain) Qty: 30 0RF Rx Instructions: Partial Fill upon patient request. metoprolol tartrate 25 mg tablet 12.5 mg PO BID Qty: 30 0RF (DME) blood-glucose meter [FreeStyle Lite Meter] Kit See Rx Instructions .ROUTE .MEDSUPPLY Qty: 1 0RF Rx Instructions: As directed terconazole 0.4 % cream 1 appful vaginal BEDTIME pantoprazole 40 mg tablet,delayed release (DR/EC) 40 mg PO DAILY albuterol sulfate 2.5 mg /3 mL (0.083 %) solution for nebulization 2.5 mg inhalation TID PRN (Reason: wheezing) sennosides [Senna Laxative] 8.6 mg tablet 17.2 mg PO DAILY PRN (Reason: constipation) docusate sodium 100 mg capsule 100 mg PO BID PRN (Reason: Constipation) buspirone 10 mg tablet 10 mg PO TID vitamin A 10,000 unit capsule 1 cap PO DAILY magnesium oxide 400 mg (241.3 mg magnesium) tablet 200 mg PO DAILY tramadol 50 mg tablet 50 mg PO Q8H PRN (Reason: pain (scale score 1-3)) Qty: 14 0RF lisinopril 5 mg tablet 5 mg PO DAILY Qty: 30 5RF escitalopram oxalate 20 mg tablet 20 mg PO DAILY sumatriptan succinate 50 mg tablet 50 mg PO ONCE clonazepam 0.5 mg tablet 0.5 mg PO DAILY PRN (Reason: anxiety) Victoza 3-Dmitry 0.6 mg/0.1 mL (18 mg/3 mL) pen injector 1.8 mg subcut Q24H 30 Days Qty: 9 11RF pyridoxine (vitamin B6) 100 mg tablet 100 mg PO DAILY 90 Days Qty: 90 3RF Referrals: [facility] [place] [facility] [Provider Group] - 1 week Radha Shah NP [Primary Care Provider] - 2 days
== END 2023-07-20 13:11 | disposition home or self-care (01) ==
PROVIDERS: Emergency Provider Emergency Medicine; PCP Nurse Practitioner Family
DX: M79.645 Pain in left finger(s) (principal); M19.042 Primary osteoarthritis, left hand
CPT/HCPCS: 73130; 99282; 99283

== ENCOUNTER 2023-09-27 11:21 | Outpatient (REF) | payer MEDICAID, SELFPAY ==
--- NOTE | ~2023-09-27 | XR_ITS ---
EXAMINATION: XR ABDOMEN KUB CLINICAL INDICATION: Calculus of kidney COMPARISON: None available. TECHNIQUE: AP view of the abdomen. FINDINGS: AP supine x-rays of the abdomen show nonspecific bowel gas pattern. No abnormal bowel dilatation is seen. There is diffuse fecal retention in the colon down to the rectum. Bilateral kidneys are obscured by overlapping fecal shadows. No definite calcifications could be seen. XR/XR KUB IMPRESSION: 1. The previously reported right mid renal calculus could not be visualized on the current examination, limited by overlapping fecal shadows. 2. Recurrent diffuse fecal retention in the colon.
== END 2023-09-27 11:22 | disposition home or self-care (01) ==
LOC: HO.XRAY 11:21
PROVIDERS: PCP Nurse Practitioner Family; Visit Provider Urology
DX: N20.0 Calculus of kidney (principal)
CPT/HCPCS: 74018

== ENCOUNTER 2023-09-28 18:10 | Outpatient (REF) | payer MEDICAID, SELFPAY | END 2023-09-28 18:11 | disposition home or self-care (01) | LOC: HO.HHCLNP 18:10 | PROVIDERS: Visit Provider Internal Medicine | DX: R39.9 Unspecified symptoms and signs involving the genitourinary system (principal) | CPT/HCPCS: 87086; 87088; 87186 ==

== ENCOUNTER 2023-10-04 08:49 | Outpatient (AMB) | payer MEDICAID, SELFPAY ==
--- NOTE | 2023-10-04 08:49 | A.OFFVIS_ITS ---
Intake Intake Visit Reasons: KUB results Intake Note: Patient presents today for a follow-up on KUB RESULTS: Meds- Pyridium Allergies to Antibiotic- None Blood Thinner- None Middle School Teacher Required: Yes Middle School Teacher Language: German Accompanied by: Self / Same As Patient Allergies diphenhydramine [From BENADRYL] Allergy (Intermediate, Verified 11/22/23 13:30) HALLUCINATIONS morphine [MORPHINE] Allergy (Intermediate, Verified 11/22/23 13:30) DIAPHORESIS; TACHYCARDIA, palpitations, sweating, tingling of hands and face quetiapine [From SEROQUEL] Allergy (Intermediate, Verified 11/22/23 13:30) PALPITATIONS seafood Allergy (Intermediate, Verified 11/22/23 13:30) redness/itching tomato Allergy (Intermediate, Verified 11/22/23 13:30) Blister trazodone [TRAZODONE] Allergy (Intermediate, Verified 11/22/23 13:30) GI Upset, HEART RACING, palpitations pineapple Allergy (Unknown, Verified 11/22/23 13:30) Unknown prednisone [PREDNISONE] Adverse Reaction (Intermediate, Verified 11/22/23 13:30) HEART RACES HPI HPI Comments History of Present Illness Details Sacha is a 42-year-old female who presents for Telehealth follow-up, tp review recent KUB results 10/04/23-- The patient is a German-speak ing female, Certified respiratory coordinator present. The patient has had previous lithotripsies in the past for kidney stones. LV--Telehealth on 03/10/23?She was last seen in the office on 06/29/22. The patient reports she was seen recently for UTI symptoms at the urgent care and completed abx therapy a few days ago She denies any gross hematuria. I have discussed KUB results, limited by presence of bowel gas and stool. Review of chart: 02/24/23 -- CTAP -- small 1-2 mm stone in the upper pole of the right kidney. Nephrolithiasis Urolithiasis was diagnosed? - 2019 24 Hour urine evaluation? - none on file Prior treatment(s) include - 10/13 ESWL right side - did have troubl e passing fragments Prior imaging includes? - 09/12 renal ultrasound with 2-3 3-4 mm stones on right kidney - 10/14/20 CT scan with small stone fragm ent down in right distal ureter - 11/10 - renal ultrasound no stones - 03/12? CT scan 3 mm distal stone right side mild hydro -05/29/2022 - Right kidney 3 mm stone no hydro 10/04/23: Plan- Continue taking vitamin B6 Recommended to use a heating pad for intermittent flank pain. She can use Tylenol or Advil as needed. Renal US [facility] Medical History Transaminitis GERD (gastroesophageal reflux disease) Anxiety Migraines Fatty liver Elevated cholesterol Asthma Vitamin D deficiency HLD (hyperlipidemia) HTN (hypertension) T2DM (type 2 diabetes mellitus) Diabetes mellitus Surgical History History of surgical removal of skin lesion (08/27/22) H/O lithotripsy History of local excision of skin lesion History of hysterectomy (~2011) Family History Father Heart disease Mother No problems noted. Social History Alcohol intake: never Patient Tobacco Use Status: Never used Tobacco Second Hand Smoke Exposure: No Review of Systems Const All systems reviewed & are unremarkable except as noted in HPI and below Reports no additional complaints Eyes Reports no additional complaints ENT Reports no additional complaints Card Denies dyspnea Resp Denies cough and Denies dyspnea GI Reports no additional complaints Reports no additional complaints Musc Reports no additional complaints Skin/Breast Denies rash and Denies unusual bruising Neuro Reports no additional complaints Psych Reports no additional complaints Endo Reports no additional complaints Bin/Lymph Reports no additional complaints Aller/Immun Reports no additional complaints Assessment & Plan Assessment & Plan (1) Nephrolithiasis: Code(s): N20.0 - Calculus of kidney (2) Right kidney stone: Code(s): N20.0 - Calculus of kidney Plan Continue taking vitamin B6 Recommended to use a heating pad for intermittent flank pain. She can use Tylenol or Advil as needed. Renal US Patient Instructions: The patient had an opportunity to ask questions regarding treatment plan. All questions were answered. Imaging, Laboratory studies and physical exam results were discussed and reviewed in detail. No major barriers to understanding were identified. The patient expressed understanding and agreement with the above treatment plan. The patient is aware they should contact our office by phone for worsening of their current condition or the appearance of new symptoms. Compliance is encouraged with any medications and followup testing that is ordered. It is a privilege to be allowed the opportunity to participate in the urologic care of your patient. If you have any questions or concerns regarding treatment for the above conditions please do not hesitate to contact me. The office telephone contact is [phone]. This note is constructed in part using voice recognition software. While every effort has been made to ensure accuracy dump grounds checker errors may have been included. Yours sincerely, Lee Winter MD Telehealth Telehealth Location of provider rendering services: practice address Location of patient: address on file Patient Identification confirmed using: Name, : Yes Telehealth method: voice only Patient verbally consented to treatment: Yes Patient verbally consented to billing insurance company: Yes Patient informed of any privacy concerns related to visit: Yes Minutes spent on Phone/Video with Pt.: 18 Coding Level of Care Code Tele Est Pt Level 3 (13308) Diagnoses Nephrolithiasis N20.0 Right kidney stone N20.0
== END 2023-10-04 11:35 | disposition home or self-care (01) ==
LOC: HO.HUSH 08:49
PROVIDERS: PCP Nurse Practitioner Family; Visit Provider Urology
DX: N20.0 Calculus of kidney (principal)
CPT/HCPCS: 99213

== ENCOUNTER → 2023-10-04 08:49 | Outpatient (BNVA) | payer MEDICAID, SELFPAY | PROVIDERS: PCP Nurse Practitioner Family; Visit Provider Urology ==

== ENCOUNTER 2023-10-19 12:16 | Outpatient (AMB) | payer MEDICAID, SELFPAY ==
--- NOTE | 2023-10-19 12:54 | MHC.OFFVIS ---
Intake Vital Signs 10/19/23 13:00 Height 5 ft Weight 203 lb 14.841 oz BMI 39.8 BP 132/86 Blood Pressure Location Rt brachial Position Sitting Pulse 84 Pulse Source Pulse Oximeter Intake Visit Reasons: dm Intake Note: Patient present today to follow up on Type 2 Diabetes Mellitus, last seen by Dr. Saleem on 09/16/2022. Last Diabetic Eye exam: last year, is seen yearly. Last Podiatry Visit: Does not see a Chief Administrative Officer Random Glucose: 116 mg/dl HgA1C: 6.1% Newspaper Delivery Counselor Required: Yes Newspaper Delivery Counselor Language: Medical Housekeeper Name: Kelly Medical Staff, CMI Information Interpreted: non-clinical & clinical Accompanied by: Self / Same As Patient Allergies diphenhydramine [From BENADRYL] Allergy (Intermediate, Verified 10/19/23 13:02) HALLUCINATIONS morphine [MORPHINE] Allergy (Intermediate, Verified 10/19/23 13:02) DIAPHORESIS; TACHYCARDIA, palpitations, sweating, tingling of hands and face quetiapine [From SEROQUEL] Allergy (Intermediate, Verified 10/19/23 13:02) PALPITATIONS seafood Allergy (Intermediate, Verified 10/19/23 13:02) redness/itching tomato Allergy (Intermediate, Verified 10/19/23 13:02) Blister trazodone [TRAZODONE] Allergy (Intermediate, Verified 10/19/23 13:02) GI Upset, HEART RACING, palpitations pineapple Allergy (Unknown, Verified 10/19/23 13:02) Unknown prednisone [PREDNISONE] Adverse Reaction (Intermediate, Verified 10/19/23 13:02) HEART RACES Medication List - Last Reconciled 10/19/23 by Jaylan Phelps MD acetaminophen (Tylenol) 650 mg (2 x 325 mg) PO Q6H PRN albuterol sulfate 90 mcg/actuation 2 puffs inhalation Q4-6H PRN albuterol sulfate 2.5 mg inhalation TID PRN atorvastatin 40 mg PO DAILY blood sugar diagnostic (FreeStyle Lite Strips) As directed Test blood glucose 3x daily. blood-glucose meter (FreeStyle Lite Meter kit) As directed buspirone 10 mg PO TID cholecalciferol (vitamin D3) 50 mcg PO DAILY 30 days clonazepam 0.5 mg PO DAILY PRN cyclobenzaprine 10 mg PO TID PRN docusate sodium 100 mg PO BID PRN empagliflozin (Jardiance) 25 mg PO DAILY 30 days escitalopram oxalate 20 mg PO DAILY ibuprofen 600 mg PO Q6H PRN ketorolac 10 mg PO Q8H PRN lancets (TRUEplus Lancets) 1 gauge miscellaneous QID 30 days liraglutide (Victoza 3-Dmitry) 1.8 mg (0.3 mL) subcut Q24H 30 days lisinopril 5 mg PO DAILY magnesium oxide 200 mg PO DAILY metformin 1,000 mg PO BID 30 days metoprolol tartrate 12.5 mg (1/2 x 25 mg) PO BID oxycodone 5 mg PO Q4H PRN pantoprazole 40 mg PO DAILY pen needle, diabetic (BD Ultra-Fine Micro Pen Needle) Once a day. pyridoxine (vitamin B6) 100 mg PO DAILY 90 days sennosides (Senna Laxative) 17.2 mg PO DAILY PRN sumatriptan succinate 50 mg PO ONCE terconazole 0.4% 1 appful vaginal BEDTIME tramadol 50 mg PO Q8H PRN vitamin A 1 cap PO DAILY HPI HPI Comments History of Present Illness Details 42 YO F with PMHx T2DM who is seen in F/U for T2DM. The patient last saw Dr. Saleem 09/16/22 Initially diagnosed with T2DM in 2019. Was initially started on treatment with Metformin. Current regimen Metformin 500 mg PO QD, Jardiance 25 mg PO daily and Victoza 1.8 mg mg once a day. She has tried and failed Glipizide in the past. Checks her sugar once a day. Glucometer download shows average point of care to be 114 with range of 85-140. 100% range Family history of T2DM in her Aunt and cousins. Has eyes checked yearly, last eye exam Summer 2022 , denies retinopathy. Denies neuropathy. Denies nephropathy, On Lisinopril 2.5 mg PO daily. UAC 11.6 09/15/2022. Has HLD, on Atorvastatin 40 mg PO daily. LDL 143 09/15/2022. She admits to noncompliance with Atorvastatin. Denies CAD. Diet: Does limit simple carbohydrates. Weight: Stable has attending CDE sessions. Labs: Laboratory Tests 01/24/23 01/24/23 01/24/23 11:34 11:37 11:37 Sodium 138 Potassium 4.1 Creatinine 0.81 Estimated GFR > 60 Hemoglobin A1c % 6.6 Triglycerides 232 Cholesterol 216 LDL Cholesterol Di rect HDL Cholesterol 43 Microalb/Creat Rat io 11.6 09/15/22 11:37 Sodium Potassium Creatinine Estimated GFR Hemoglobin A1c % Triglycerides Cholesterol LDL Cholesterol Di rect 143 H HDL Cholesterol Microalb/Creat Rat io PFSH Medical History Transaminitis GERD (gastroesophageal reflux disease) Anxiety Migraines Fatty liver Elevated cholesterol Asthma Vitamin D deficiency HLD (hyperlipidemia) HTN (hypertension) T2DM (type 2 diabetes mellitus) Diabetes mellitus Surgical History History of surgical removal of skin lesion (08/27/22) H/O lithotripsy History of local excision of skin lesion History of hysterectomy (~2011) Family History Father Heart disease Mother No problems noted. Social History Alcohol intake: never Patient Tobacco Use Status: Never used Tobacco Second Hand Smoke Exposure: No Physical Exam Vital Signs: Last Vital Signs Pulse 84 10/19/23 13:00 BP 132/86 10/19/23 13:00 BMI result Body Mass Index 39.8 Absence of Cushingoid features. Absence of acromegalic features. Neck exam reveals nl size thyroid about 15 gms. No thyroid nodules palpable. No carotid bruits present. Lungs CTA. Heart S1 S2, Reg R/R. No M/R/ G. Skin exam reveals absence of vitiligo or acanthosis nigricans. Abdominal exam reveals Soft NT/ND with NA BS. No organomegaly present. Neck Other: . Extrem Other: Visual exam of foot performed. No ulcerations or open lesions. No onchomycosis, no callouses.Pulses 2 + distally Sensation intact to monofilament exam. Vibratory sensation sensed is intact with 128 Hz tuning fork Results AMB Hemoglobin A1c AMB Hemoglobin A1c 6.1 % Last Edit by TAQUERIA Astorga on 10/19/23 13:21 Results Reviewed Results Reviewed: Laboratory Last Values Glucose (Clinic) 116 mg/dL (60-115) H 02/27/24 13:10 Assessment & Plan Assessment & Plan (1) T2DM (type 2 diabetes mellitus): Code(s): E11.9 - Type 2 diabetes mellitus without complications Qualifiers: Diabetes mellitus complication status: with hyperglycemia Diabetes mellitus care home insulin use: without remote computer terminal operator use Qualified Code(s): E11.65 - Type 2 diabetes mellitus with hyperglycemia Plan: This is a 42-year-old female with a history of type 2 diabetes with glycemic control with no known microvascular or macrovascular complications. Plan is to Continue the current regimen. At this point, patient returned to the care of her primary care provider returned back to endocrinology sure HbA1c deteriorate. She did complain of some neuropathic symptoms perhaps her primary care provider can refer her to Neurology for further evaluation Orders: Orders AMB Hemoglobin A1c Today E11.9 - Type 2 diabetes mellitus without complications Coding Level of Care Code Est Pt Level 4 (89287) Diagnoses Type 2 diabetes mellitus with hyperglycemia, without long-term current use of insulin E11.65 Diabetes mellitus complication status: with hyperglycemia Diabetes mellitus remote computer terminal operator insulin use: without care home use
[2023-10-19 13:00] VITALS: BP 132/86; PULSE 84; BMI 39.8
[2023-10-19 13:15] LABS: Glucose, Whole Blood 116 mg/dL (60-115)
== END 2023-10-19 13:31 | disposition home or self-care (01) ==
PROVIDERS: PCP Nurse Practitioner Family; Visit Provider Internal Medicine Endocrinology, Diabetes & Metabolism
DX: E11.65 Type 2 diabetes mellitus with hyperglycemia (principal)
CPT/HCPCS: 99214

== ENCOUNTER → 2023-10-19 12:16 | Outpatient (BNVA) | payer MEDICAID, SELFPAY | PROVIDERS: PCP Nurse Practitioner Family; Visit Provider Internal Medicine Endocrinology, Diabetes & Metabolism | DX: E11.65 Type 2 diabetes mellitus with hyperglycemia (principal); Z79.84 Long term (current) use of oral hypoglycemic drugs | CPT/HCPCS: 82947; 83036; 99212 ==

== ENCOUNTER 2023-10-25 17:24 | Outpatient (REF) | payer MEDICAID, SELFPAY ==
[2023-10-29 08:16] LABS: Aminoclonazepam, GCMS Urine 95 (H)
[2023-10-29 08:17] LABS: Alphahydroxymidazolam,GCMS Ur NEGATIVE; Alphahydroxytriazolam, GCMS Ur NEGATIVE; Alprazolam, GCMS Urine NEGATIVE; Flurazepam Metabolite,GCMS Ur NEGATIVE; Lorazepam GCMS Urine NEGATIVE; Nordiazepam, GCMS Urine NEGATIVE; Oxazepam, GCMS Urine NEGATIVE; Temazepam, GCMS Urine NEGATIVE
== END 2023-10-25 17:25 | disposition home or self-care (01) ==
LOC: HO.HHCLNP 17:24
PROVIDERS: Visit Provider Nurse Practitioner Family
DX: F41.8 Other specified anxiety disorders (principal)
CPT/HCPCS: 80346

== ENCOUNTER 2023-11-03 13:00 | Outpatient (REF) | payer MEDICAID, SELFPAY ==
--- NOTE | ~2023-11-03 | US_ITS ---
EXAMINATION: US RETROPERITONEAL LIMITED (RENAL ONLY) CLINICAL INFORMATION: Right kidney stone, 1-2 mm upper pole on 02/24/2023 CT imaging. COMPARISON: CT abdomen and pelvis 02/24/2023. Renal ultrasound 05/29/2022. Ultrasound abdomen complete 03/30/2022 TECHNIQUE: Real-time imaging of the kidneys. FINDINGS: RIGHT KIDNEY: 11.5 x 5.3 x 5.6 cm (SAG x AP x TRV). The kidney is normal in size, contour, and echogenicity. Renal cortical thickness is normal. No focal parenchymal lesions or hydronephrosis. 5 mm nonobstructing calculus in the mid kidney. This measured approximately 2 mm on the prior CT scan. LEFT KIDNEY: 12.1 x 5.2 x 4.5 cm (SAG x AP x TRV). The kidney is normal in size, contour, and echogenicity. Renal cortical thickness is normal. No focal parenchymal lesions or hydronephrosis. 4 mm nonobstructing calculus in the mid kidney. 3 mm nonobstructing calculus in the upper kidney. These appear new compared to prior CT scan per US/US renal BI IMPRESSION: Bilateral nonobstructing renal calculi increased in size and number compared to prior CT scan. No hydronephrosis.
== END 2023-11-03 13:01 | disposition home or self-care (01) ==
LOC: HO.US 13:00
PROVIDERS: PCP Nurse Practitioner Family; Visit Provider Urology
DX: N20.0 Calculus of kidney (principal)
CPT/HCPCS: 76775

== ENCOUNTER 2023-11-09 11:43 | Outpatient (AMB) | payer MEDICAID, SELFPAY ==
--- NOTE | 2023-11-09 11:49 | A.OFFVIS_ITS ---
Intake Vital Signs 3 11/09/23 11:54 Height 5 ft Weight 202 lb 13.204 oz BMI 39.6 BP 130/80 Blood Pressure Location Lt brachial Position Sitting Pulse 80 Intake Visit Reasons: skin lesion Intake Note: Patient is seen in office for evaluation of a skin lesion. Pt c/o:recurrent lump left abdomen admits to redness, swelling, pain, itchy, sleep on that side and is very uncomfortable Personnel Worker Required: Yes Personnel Worker Language: Hand Packager Name: Ronda MENG Information Interpreted: non-clinical & clinical Director Of Product Management: Director Of Product Management Present Accompanied by: Self / Same As Patient Allergies diphenhydramine [From BENADRYL] Allergy (Intermediate, Verified 11/09/23 11:54) HALLUCINATIONS morphine [MORPHINE] Allergy (Intermediate, Verified 11/09/23 11:54) DIAPHORESIS; TACHYCARDIA, palpitations, sweating, tingling of hands and face quetiapine [From SEROQUEL] Allergy (Intermediate, Verified 11/09/23 11:54) PALPITATIONS seafood Allergy (Intermediate, Verified 11/09/23 11:54) redness/itching tomato Allergy (Intermediate, Verified 11/09/23 11:54) Blister trazodone [TRAZODONE] Allergy (Intermediate, Verified 11/09/23 11:54) GI Upset, HEART RACING, palpitations pineapple Allergy (Unknown, Verified 11/09/23 11:54) Unknown prednisone [PREDNISONE] Adverse Reaction (Intermediate, Verified 11/09/23 11:54) HEART RACES Medication List - Last Reconciled 11/09/23 by Lionel Cintron MD acetaminophen (Tylenol) 650 mg (2 x 325 mg) PO Q6H PRN albuterol sulfate 90 mcg/actuation 2 puffs inhalation Q4-6H PRN albuterol sulfate 2.5 mg inhalation TID PRN atorvastatin 40 mg PO DAILY blood sugar diagnostic (FreeStyle Lite Strips) As directed Test blood glucose 3x daily. blood-glucose meter (FreeStyle Lite Meter kit) As directed buspirone 10 mg PO TID cholecalciferol (vitamin D3) 50 mcg PO DAILY 30 days clonazepam 0.5 mg PO DAILY PRN cyclobenzaprine 10 mg PO TID PRN docusate sodium 100 mg PO BID PRN empagliflozin (Jardiance) 25 mg PO DAILY 30 days escitalopram oxalate 20 mg PO DAILY ibuprofen 600 mg PO Q6H PRN ketorolac 10 mg PO Q8H PRN lancets (TRUEplus Lancets) 1 gauge miscellaneous QID 30 days liraglutide (Victoza 3-Dmitry) 1.8 mg (0.3 mL) subcut Q24H 30 days lisinopril 5 mg PO DAILY magnesium oxide 200 mg PO DAILY metformin 1,000 mg PO BID 30 days metoprolol tartrate 12.5 mg (1/2 x 25 mg) PO BID pantoprazole 40 mg PO DAILY pen needle, diabetic (BD Ultra-Fine Micro Pen Needle) Once a day. pyridoxine (vitamin B6) 100 mg PO DAILY 90 days sennosides (Senna Laxative) 17.2 mg PO DAILY PRN sumatriptan succinate 50 mg PO ONCE terconazole 0.4% 1 appful vaginal BEDTIME tramadol 50 mg PO Q8H PRN vitamin A 1 cap PO DAILY HPI HPI Comments 2 History of Present Illness0 Details 42-year-old female patient returning for evaluation of a recurrent cyst of the left lower quadrant abdomen. This was previously excised but now she reports a recurrence of the cyst which is causing discomfort. She denies any bleeding, redness or discharge. She does report increased pain when her clothing rubs against the site. She needs to wear her pants below the excision site to avoid the symptoms. She is requesting excision of this recurrent cyst. [facility] Medical History Transaminitis GERD (gastroesophageal reflux disease) Anxiety Migraines Fatty liver Elevated cholesterol Asthma Vitamin D deficiency HLD (hyperlipidemia) HTN (hypertension) T2DM (type 2 diabetes mellitus) Diabetes mellitus Surgical History History of surgical removal of skin lesion (08/27/22) H/O lithotripsy History of local excision of skin lesion History of hysterectomy (~2011) Family History Father Heart disease Mother No problems noted. Social History Alcohol intake: never Patient Tobacco Use Status: Never used Tobacco Second Hand Smoke Exposure: No Review of Systems Const All systems reviewed & are unremarkable except as noted in HPI and below Card Denies chest pain, Denies edema, Denies irregular heart rhythm and Denies palpitations Resp Denies chest congestion, Denies cough, Denies hemoptysis and Denies wheezing Skin/Breast Reports as per HPI Endo Denies palpitations Aller/Immun Denies wheezing Physical Exam Const General: healthy appearing, comfortable, no acute distress and well developed Nutritional Appearance: well nourished Orientation/consciousness: patient oriented x3 Limitations: no limitations HEENT Other: Skin lesion as noted below. Neck Neck: Yes no lymphadenopathy Resp Effort & Inspection: normal respiratory effort, no audible wheezes and no cough Cardio Jugular venous distension: no JVD GI Inspection: Yes normal to inspection Abdomen image: 2 1. Site of recurrent cyst with previous incision overlying. No redness or discharge appreciated. Cyst measures 1.5 cm. Neuro General: patient oriented x3 Extrem General: Yes no clubbing, cyanosis or edema Assessment & Plan Assessment & Plan (1) Epidermal inclusion cyst: Code(s): L72.0 - Epidermal cyst Plan 42-year-old female patient presenting with a recurrent epidermal inclusion cyst in the left lower quadrant abdomen. Patient has requested excision due to the increased symptoms she is experiencing. After discussion of the procedure, risks, and alternatives, she consents to the excision. She will be scheduled as an office procedure. Coding Level of Care Code Est Pt Level 4 (42934) Diagnoses Epidermal inclusion cyst L72.0
[2023-11-09 11:54] VITALS: BP 130/80; PULSE 80; BMI 39.6
== END 2023-11-09 12:06 | disposition home or self-care (01) ==
PROVIDERS: PCP Nurse Practitioner Family; Visit Provider Surgery
DX: L72.0 Epidermal cyst (principal)
CPT/HCPCS: 99214

== ENCOUNTER → 2023-11-09 11:43 | Outpatient (BNVA) | payer MEDICAID, SELFPAY | PROVIDERS: PCP Nurse Practitioner Family; Visit Provider Surgery | DX: L72.0 Epidermal cyst (principal) | CPT/HCPCS: 99212 ==

== ENCOUNTER 2023-11-15 11:32 | Outpatient (AMB) | payer MEDICAID, SELFPAY ==
--- NOTE | 2023-11-15 11:31 | A.OFFVIS_ITS ---
Intake Visit Reasons: 6w/US (us completed) Intake Note: Patient presents today for a telehealth follow up on US Meds- Vitamin B6, Allergies to Antibiotic- No Known Allergies Blood Thinner- None Associate Director Required: No Allergies diphenhydramine [From BENADRYL] Allergy (Intermediate, Verified 12/15/23 19:59) HALLUCINATIONS morphine [MORPHINE] Allergy (Intermediate, Verified 12/15/23 19:59) DIAPHORESIS; TACHYCARDIA, palpitations, sweating, tingling of hands and face quetiapine [From SEROQUEL] Allergy (Intermediate, Verified 12/15/23 19:59) PALPITATIONS seafood Allergy (Intermediate, Verified 12/15/23 19:59) redness/itching tomato Allergy (Intermediate, Verified 12/15/23 19:59) Blister trazodone [TRAZODONE] Allergy (Intermediate, Verified 12/15/23 19:59) GI Upset, HEART RACING, palpitations pineapple Allergy (Unknown, Verified 12/15/23 19:59) Unknown prednisone [PREDNISONE] Adverse Reaction (Intermediate, Verified 12/15/23 19:59) HEART RACES HPI Comments Details: 11/15/23--Sacha is a 42-year-old female who presents for Telehealth follow-up, to review US results. She complains of right flank pain, h/o nephrolithiasis. She has not had renal US done. She denies gross hematuria, denies dysuria. Renal US pending. 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 The patient has had previous lithotripsies in the past for kidney stones. presents for Telehealth follow-up, to review recent KUB results LV--Telehealth on 03/10/23?She was last seen in the office on 06/29/22. The patient reports she was seen recently for UTI symptoms at the urgent care and completed abx therapy a few days ago. She denies any gross hematuria. I have discussed KUB results, limited by presence of bowel gas and stool. Plan--Continue taking vitamin B6. Recommended to use a heating pad for intermittent flank pain. She can use Tylenol or Advil as needed. Renal US 02/24/23 -- CTAP -- small 1-2 mm stone in the upper pole of the right kidney. Nephrolithiasis Urolithiasis was diagnosed? - 2019 24 Hour urine evaluation? - none on file Prior treatment(s) include - 10/13 ESWL right side - did have trouble passing fragments Prior imaging includes? - 09/12 renal ultrasound with 2-3 3-4 mm stones on right kidney - 10/14/20 CT scan with small stone fragment down in right distal ureter - 11/10 - renal ultrasound no stones - 03/12? CT scan 3 mm distal stone right side mild hydro -05/29/2022 - Right kidney 3 mm stone no hydro 11/15/23: Plan- renal US pending. [facility] Medical History Transaminitis GERD (gastroesophageal reflux disease) Anxiety Migraines Fatty liver Elevated cholesterol Asthma Vitamin D deficiency HLD (hyperlipidemia) HTN (hypertension) T2DM (type 2 diabetes mellitus) Diabetes mellitus Surgical History History of surgical removal of skin lesion (08/27/22) H/O lithotripsy History of local excision of skin lesion History of hysterectomy (~2011) Family History Father Heart disease Mother No problems noted. Social History Alcohol intake: never Patient Tobacco Use Status: Never used Tobacco Smoked in Last 30 Days: No Second Hand Smoke Exposure: No Use of substances other than those prescribed or required for medical reasons: No Advance Directives: No Advance Directives Information Provided: No Do you have a plan to hurt others: No Plan Patient : No Review of Systems Const All systems reviewed & are unremarkable except as noted in HPI and below Reports no additional complaints Eyes Reports no additional complaints ENT Reports no additional complaints Card Reports no additional complaints Resp Reports no additional complaints GI Reports no additional complaints Reports as per HPI Musc Reports no additional complaints Skin/Breast Reports system reviewed and no additional complaints, except as documented Neuro Reports no additional complaints Psych Reports no additional complaints Endo Reports no additional complaints Bin/Lymph Reports no additional complaints Aller/Immun Reports no additional complaints Telehealth Telehealth Location of provider rendering services: practice address Location of patient: address on file Patient Identification confirmed using: Name, : Yes Telehealth method: voice only Patient verbally consented to treatment: Yes Patient verbally consented to billing insurance company: Yes Patient informed of any privacy concerns related to visit: Yes Minutes spent on Phone/Video with Pt.: 18 Results Reviewed Results Reviewed: Date - 02/24/23 CT Abd/pelvis FINDINGS: LUNG BASES: The visualized lung bases are unremarkable.? LIVER, GALLBLADDER, AND BILIARY TREE: Fatty liver. No focal hepatic lesion or biliary ductal dilatation is present. The gallbladder is unremarkable with no evidence of radiopaque gallstones, gallbladder wall thickening, or obvious pericholecystic inflammatory changes.? PANCREAS: Unremarkable.? SPLEEN: Unremarkable.? ADRENAL GLANDS: Unremarkable.? KIDNEYS AND URETERS: Small 1 to 2 mm nonobstructing stone in the upper pole of the right kidney. The kidneys are otherwise normal. BLADDER: Unremarkable.? GASTROINTESTINAL TRACT: The small and large bowel are unremarkable. The appendix is unremarkable.? ABDOMINAL WALL: No significant hernia is appreciated.? LYMPH NODES: Normal. VASCULAR: Unremarkable. PELVIC VISCERA: The uterus appears to have been removed. No pelvic mass. OSSEOUS STRUCTURES: Unremarkable.? IMPRESSION: Small nonobstructing right renal stone. Fatty liver. Assessment & Plan Assessment & Plan (1) Right kidney stone: Code(s): N20.0 - Calculus of kidney Category: Medical (2) Right flank pain: Code(s): R10.9 - Unspecified abdominal pain Category: Medical (3) Nephrolithiasis: Code(s): N20.0 - Calculus of kidney Category: Medical Plan renal US pending. Motrin 600 mg prn Medications: New ibuprofen 600 mg PO Q8H PRN 15 tabs 0RF pain Patient Instructions: The patient had an opportunity to ask questions regarding treatment plan. The patient expressed understanding and agreement with the above treatment plan. The patient is aware they should contact our office by phone for worsening of their current condition or the appearance of new symptoms. Compliance is encouraged with any medications and followup testing that is ordered. It is a privilege to be allowed the opportunity to participate in the urologic care of your patient. If you have any questions or concerns regarding treatment for the above conditions please do not hesitate to contact me. The office telephone contact is [phone]. This note is constructed in part using voice recognition software. While every effort has been made to ensure accuracy chemist biological errors may have been included. Yours sincerely, Lee Winter MD Coding Level of Care Code Tele Est Pt Level 3 (72099) Diagnoses Right kidney stone N20.0 Right flank pain R10.9 Nephrolithiasis N20.0
== END 2023-11-15 16:30 | disposition home or self-care (01) ==
LOC: HO.HUSH 11:32
PROVIDERS: PCP Nurse Practitioner Family; Visit Provider Urology
DX: N20.0 Calculus of kidney (principal); R10.9 Unspecified abdominal pain
CPT/HCPCS: 99213

== ENCOUNTER → 2023-11-15 11:32 | Outpatient (BNVA) | payer MEDICAID, SELFPAY | PROVIDERS: PCP Nurse Practitioner Family; Visit Provider Urology ==

== ENCOUNTER 2023-11-16 12:42 | Outpatient (REF) | payer MEDICAID, SELFPAY ==
--- NOTE | ~2023-11-16 | MM_ITS ---
EXAMINATION: MM SCREENING DIGITAL BREAST TOMOSYNTHESIS, BILATERAL CLINICAL INFORMATION: Screening. Asymptomatic. COMPARISON: Mammography: This is a baseline study. TECHNIQUE: Digital breast tomosynthesis is performed in both the craniocaudal and mediolateral oblique views along with computer-aided detection (CAD). Synthesized 2D images are generated from the tomosynthesis. FINDINGS: There are scattered areas of fibroglandular density (ACR BI-RADS breast composition Category b). There are no significant masses, abnormal calcifications, or other abnormalities. MM/MM tomosynthesis screening BI IMPRESSION: No mammographic evidence of malignancy. ASSESSMENT: BI-RADS BI-RADS 1 - Negative RECOMMENDATION: Routine annual mammography screening. 1 year F/U This examination should not preclude the clinical evaluation of a suspicious palpable abnormality. This patient's information was entered into a reminder system with a target due date for their next mammogram.
== END 2023-11-16 12:43 | disposition home or self-care (01) ==
LOC: HO.MAMMO 12:42
PROVIDERS: PCP Nurse Practitioner Family; Visit Provider Nurse Practitioner Family
DX: Z12.31 Encounter for screening mammogram for malignant neoplasm of breast (principal)
CPT/HCPCS: 77063; 77067

== ENCOUNTER → 2023-11-16 14:00 | Outpatient (BNV) | payer MEDICAID, SELFPAY | PROVIDERS: PCP Nurse Practitioner Family; Visit Provider Radiology Diagnostic Radiology | DX: Z12.31 Encounter for screening mammogram for malignant neoplasm of breast (principal) | CPT/HCPCS: 77063; 77067 ==

== ENCOUNTER 2023-11-22 12:54 | Outpatient (AMB) | payer MEDICAID, SELFPAY ==
--- NOTE | 2023-11-22 13:21 | MHC.OFFVIS ---
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 Accompanied by: Self / Same As Patient Allergies diphenhydramine [From BENADRYL] Allergy (Intermediate, Verified 11/22/23 13:30) HALLUCINATIONS morphine [MORPHINE] Allergy (Intermediate, Verified 11/22/23 13:30) DIAPHORESIS; TACHYCARDIA, palpitations, sweating, tingling of hands and face quetiapine [From SEROQUEL] Allergy (Intermediate, Verified 11/22/23 13:30) PALPITATIONS seafood Allergy (Intermediate, Verified 11/22/23 13:30) redness/itching tomato Allergy (Intermediate, Verified 11/22/23 13:30) Blister trazodone [TRAZODONE] Allergy (Intermediate, Verified 11/22/23 13:30) GI Upset, HEART RACING, palpitations pineapple Allergy (Unknown, Verified 11/22/23 13:30) Unknown prednisone [PREDNISONE] Adverse Reaction (Intermediate, Verified 11/22/23 13:30) HEART RACES Medication List - Last Reconciled 11/22/23 by Lee Winter MD acetaminophen (Tylenol) 650 mg (2 x 325 mg) PO Q6H PRN albuterol sulfate 90 mcg/actuation 2 puffs inhalation Q4-6H PRN albuterol sulfate 2.5 mg inhalation TID PRN atorvastatin 40 mg PO DAILY blood sugar diagnostic (FreeStyle Lite Strips) As directed Test blood glucose 3x daily. blood-glucose meter (FreeStyle Lite Meter kit) As directed buspirone 10 mg PO TID cholecalciferol (vitamin D3) 50 mcg PO DAILY 30 days clonazepam 0.5 mg PO DAILY PRN cyclobenzaprine 10 mg PO TID PRN docusate sodium 100 mg PO BID PRN empagliflozin (Jardiance) 25 mg PO DAILY 30 days escitalopram oxalate 20 mg PO DAILY ibuprofen 600 mg PO Q6H PRN ibuprofen 600 mg PO Q8H PRN ketorolac 10 mg PO Q8H PRN lancets (TRUEplus Lancets) 1 gauge miscellaneous QID 30 days liraglutide (Victoza 3-Dmitry) 1.8 mg (0.3 mL) subcut Q24H 30 days lisinopril 5 mg PO DAILY magnesium oxide 200 mg PO DAILY metformin 1,000 mg PO BID 30 days metoprolol tartrate 12.5 mg (1/2 x 25 mg) PO BID naproxen 375 mg PO BID PRN ondansetron 8 mg PO Q8-12H PRN 5 days pantoprazole 40 mg PO DAILY pen needle, diabetic (BD Ultra-Fine Micro Pen Needle) Once a day. pyridoxine (vitamin B6) 100 mg PO DAILY 90 days sennosides (Senna Laxative) 17.2 mg PO DAILY PRN sumatriptan succinate 50 mg PO ONCE tamsulosin (Flomax) 0.4 mg PO BEDTIME terconazole 0.4% 1 appful vaginal BEDTIME tramadol 50 mg PO Q8H PRN vitamin A 1 cap PO DAILY HPI HPI Comments History of Present Illness Details Sacha is a 42-year-old female who presents for follow-up, she has complaints right-sided flank pain. Renal ultrasound was done on 11/02/2023 to re-evaluate kidney stones. I have reviewed results with the patient. 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 I have discussed that the renal ultrasound indicates that kidney stones on the right are larger than noted on prior CT scan of February 2023, and new stones in the left kidney. She had a KUB x-ray in September this year at which time radiopaque calcifications were not clearly visualized. The patient complains of pain from her flank towards the bladder which are intermittent. Examination right CVA tenderness. I have discussed with the patient she may be passing a stone and I will prescribe Flomax and Zofran. Naproxen p.r.n. will check a stat CT KUB. 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 The patient has had previous lithotripsies in the past for kidney stones. LV--Telehealth on 03/10/23?She was last seen in the office on 06/29/22. The patient reports she was seen recently for UTI symptoms at the urgent care and completed abx therapy a few days ago She denies any gross hematuria. I have discussed KUB results, limited by presence of bowel gas and stool. Plan- Continue taking vitamin B6. Recommended to use a heating pad for intermittent flank pain. She can use Tylenol or Advil as needed. Renal US. 02/24/23 -- CTAP -- small 1-2 mm stone in the upper pole of the right kidney. Nephrolithiasis Urolithiasis was diagnosed? - 2019 Prior treatment(s) include - 10/13 ESWL right side - did have trouble passing fragments Prior imaging includes? - 09/12 renal ultrasound with 2-3 3-4 mm stones on right kidney - 10/14/20 CT scan with small stone fragment down in right distal ureter - 11/10 - renal ultrasound no stones - 03/12? CT scan 3 mm distal stone right side mild hydro -05/29/2022 - Right kidney 3 mm stone no hydro 11/22/2023: I have discussed with the patient she may be passing a stone and I will prescribe Flomax and Zofran. Naproxen p.r.n. will check a stat CT KUB. [facility] Medical History Transaminitis GERD (gastroesophageal reflux disease) Anxiety Migraines Fatty liver Elevated cholesterol Asthma Vitamin D deficiency HLD (hyperlipidemia) HTN (hypertension) T2DM (type 2 diabetes mellitus) Diabetes mellitus Surgical History History of surgical removal of skin lesion (08/27/22) H/O lithotripsy History of local excision of skin lesion History of hysterectomy (~2011) Family History Father Heart disease Mother No problems noted. Social History Alcohol intake: never Patient Tobacco Use Status: Never used Tobacco Second Hand Smoke Exposure: No Review of Systems Const All systems reviewed & are unremarkable except as noted in HPI and below Reports no additional complaints Eyes Reports no additional complaints ENT Reports no additional complaints Card Reports no additional complaints Resp Reports no additional complaints GI Reports no additional complaints Reports as per HPI Musc Reports no additional complaints Skin/Breast Reports system reviewed and no additional complaints, except as documented Neuro Reports no additional complaints Psych Reports no additional complaints Endo Reports no additional complaints Bin/Lymph Reports no additional complaints Aller/Immun Reports no additional complaints Results AMB Urinalysis, Automated UA Leukoctes 0 Fady/uL [facility] on 11/22/23 13:40 UA Nitrite Negative [facility], [facility] on 11/22/23 13:40 UA Urobilinogen 0.2 mg/dL Last Edit by [facility], [facility] on 11/22/23 13:40 UA Protein 15 mg/dL Last Edit by [facility], [facility] on 11/22/23 13:40 UA pH 6.0 Last Edit by [facility], [facility] on 11/22/23 13:40 UA Blood 80 Osman/uL Last Edit by [facility], [facility] on 11/22/23 13:40 UA Specific Sharon 1.025 Last Edit by [facility], [facility] on 11/22/23 13:40 UA Ketone Negative Last Edit by [facility], [facility] on 11/22/23 13:40 UA Bilirubin 0 mg/dL Last Edit by [facility], [facility] on 11/22/23 13:40 UA Glucose 0 mg/dL Last Edit by [facility], [facility] on 11/22/23 13:40 Results Reviewed Results Reviewed: Laboratory Last Values Urine pH (Auto) 6.0 11/22/23 13:23 Specific Sharon (Auto) 1.025 11/22/23 13:23 Urine Protein (Auto) 15 mg/dL 11/22/23 13:23 Glucose (UA)(Auto) 0 mg/dL 11/22/23 13:23 Urine Ketones (Auto) Negative 11/22/23 13:23 Urine Blood (Auto) 80 Osman/uL 11/22/23 13:23 Urine Nitrite (Auto) Negative 11/22/23 13:23 Urine Bilirubin (Auto) 0 mg/dL 11/22/23 13:23 Urine Urobilinogen (Auto) 0.2 mg/dL 11/22/23 13:23 Leukocyte Esterase (Auto) 0 Fady/uL 11/22/23 13:23 Date of Service: 11/03/23 EXAMINATION: US RETROPERITONEAL LIMITED (RENAL ONLY) CLINICAL INFORMATION: Right kidney stone, 1-2 mm upper pole on 02/24/2023 CT imaging. COMPARISON: CT abdomen and pelvis 02/24/2023. Renal ultrasound 05/29/2022. Ultrasound abdomen complete 03/30/2022 TECHNIQUE: Real-time imaging of the kidneys. FINDINGS: RIGHT KIDNEY: 11.5 x 5.3 x 5.6 cm (SAG x AP x TRV). The kidney is normal in size, contour, and echogenicity. Renal cortical thickness is normal. No focal parenchymal lesions or hydronephrosis. 5 mm nonobstructing calculus in the mid kidney. This measured approximately 2 mm on the prior CT scan. LEFT KIDNEY: 12.1 x 5.2 x 4.5 cm (SAG x AP x TRV). The kidney is normal in size, contour, and echogenicity. Renal cortical thickness is normal. No focal parenchymal lesions or hydronephrosis. 4 mm nonobstructing calculus in the mid kidney. 3 mm nonobstructing calculus in the upper kidney. These appear new compared to prior CT scan per IMPRESSION: Bilateral nonobstructing renal calculi increased in size and number compared to prior CT scan. No hydronephrosis. Date of Service: 02/24/23 : CT ABDOMEN AND PELVIS WITHOUT CONTRAST CLINICAL INFORMATION: Abdominal pain COMPARISON: Renal ultrasound May 2022, and abdominal ultrasound March 2022 TECHNIQUE: Multidetector volumetric imaging was performed from the superior aspect of the liver through the pubic symphysis. Sagittal and coronal reformatted images were obtained on the technologist's workstation. This CT examination was performed using dose optimization techniques as appropriate, variously including the following: *Automated exposure control *Adjustment of mA and/or kV according to patient size (this includes techniques or standardized protocols for targeted exams where dose is matched to indication/reason for exam; i.e. extremities or head) *Use of iterative reconstruction technique DLP: 674 mGy-cm FINDINGS: LUNG BASES: The visualized lung bases are unremarkable. LIVER, GALLBLADDER, AND BILIARY TREE: Fatty liver. No focal hepatic lesion or biliary ductal dilatation is present. The gallbladder is unremarkable with no evidence of radiopaque gallstones, gallbladder wall thickening, or obvious pericholecystic inflammatory changes. PANCREAS: Unremarkable. SPLEEN: Unremarkable. ADRENAL GLANDS: Unremarkable. KIDNEYS AND URETERS: Small 1 to 2 mm nonobstructing stone in the upper pole of the right kidney. The kidneys are otherwise normal. BLADDER: Unremarkable. GASTROINTESTINAL TRACT: The small and large bowel are unremarkable. The appendix is unremarkable. ABDOMINAL WALL: No significant hernia is appreciated. LYMPH NODES: Normal. VASCULAR: Unremarkable. PELVIC VISCERA: The uterus appears to have been removed. No pelvic mass. OSSEOUS STRUCTURES: Unremarkable. IMPRESSION: Small nonobstructing right renal stone. Fatty liver. Assessment & Plan Assessment & Plan (1) Right kidney stone: Code(s): N20.0 - Calculus of kidney (2) Right flank pain: Code(s): R10.9 - Unspecified abdominal pain (3) Nephrolithiasis: Code(s): N20.0 - Calculus of kidney Plan I have discussed with the patient she may be passing a stone and I will prescribe Flomax and Zofran. Naproxen p.r.n. will check a stat CT KUB. Orders: Orders CT abdomen pelvis wo IV con Today N20.0 - Calculus of kidney, R10.9 - Unspecified abdominal pain AMB Urinalysis Automated Today R33.9 - Retention of urine, unspecified Medications: New ondansetron 8 mg PO Q8-12H 5 days PRN 15 tabs 0RF nausea and vomiting tamsulosin (Flomax) 0.4 mg PO BEDTIME 14 caps 0RF naproxen 375 mg PO BID PRN 14 tabs 0RF pain Patient Instructions: The patient had an opportunity to ask questions regarding treatment plan. All questions were answered. Imaging, Laboratory studies and physical exam results were discussed and reviewed in detail. No major barriers to understanding were identified. The patient expressed understanding and agreement with the above treatment plan. The patient is aware they should contact our office by phone for worsening of their current condition or the appearance of new symptoms. Compliance is encouraged with any medications and followup testing that is ordered. It is a privilege to be allowed the opportunity to participate in the urologic care of your patient. If you have any questions or concerns regarding treatment for the above conditions please do not hesitate to contact me. The office telephone contact is [phone]. This note is constructed in part using voice recognition software. While every effort has been made to ensure accuracy sorter upholstery parts errors may have been included. Yours sincerely, Lee Winter MD Coding Level of Care Code Est Pt Level 4 (84238) Diagnoses Right kidney stone N20.0 Right flank pain R10.9 Nephrolithiasis N20.0
== END 2023-11-22 14:14 | disposition home or self-care (01) ==
PROVIDERS: PCP Nurse Practitioner Family; Visit Provider Urology
DX: N20.0 Calculus of kidney (principal); R10.9 Unspecified abdominal pain; R33.9 Retention of urine, unspecified
CPT/HCPCS: 99214

== ENCOUNTER → 2023-11-22 12:54 | Outpatient (BNVA) | payer MEDICAID, SELFPAY | PROVIDERS: PCP Nurse Practitioner Family; Visit Provider Urology | DX: N20.0 Calculus of kidney (principal); R10.9 Unspecified abdominal pain | CPT/HCPCS: 81003; 99212 ==

== ENCOUNTER 2023-12-15 12:42 | Outpatient (REF) | payer MEDICAID, SELFPAY ==
--- NOTE | ~2023-12-15 | CT_ITS ---
EXAMINATION: CT ABDOMEN AND PELVIS WITHOUT CONTRAST CLINICAL INFORMATION: Calculus of kidney COMPARISON: Origins of a previous study 02/24/23 TECHNIQUE: Multidetector volumetric imaging was performed from the superior aspect of the liver through the pubic symphysis. Sagittal and coronal reformatted images were obtained on the technologist's workstation. This CT examination was performed using dose optimization techniques as appropriate, variously including the following: *Automated exposure control *Adjustment of mA and/or kV according to patient size (this includes techniques or standardized protocols for targeted exams where dose is matched to indication/reason for exam; i.e. extremities or head) *Use of iterative reconstruction technique DLP: 680 mGy-cm FINDINGS: LUNG BASES: No suspicious abnormality in the visualized lower chest LIVER, GALLBLADDER, AND BILIARY TREE: There is diffuse fatty change. There is no opaque gallstone. There is no biliary dilation PANCREAS: No suspicious abnormality. SPLEEN: Normal ADRENAL GLANDS: Normal KIDNEYS AND URETERS: There is no dilation of the urinary collecting system on either side. There is a 0.4 cm nonobstructing mid right renal calculus 9.8 cm from the skin. There is at least one additional punctate nonobstructing calculus in the lower pole of the right kidney. There is a nonobstructing 0.3 cm mid left renal calculus 9.9 cm from the skin. BLADDER: The urinary bladder is essentially empty. No large abnormality demonstrated. GASTROINTESTINAL TRACT: No localized colonic wall thickening or pericolonic fat stranding. No small bowel dilation. No suspicious abnormality the stomach. No CT evidence of acute appendicitis. ABDOMINAL WALL: Trace amount of fat protruding through the plane between the lateral lower right rectus and oblique muscles with no bowel hernia. Subcutaneous fat stranding may be iatrogenic. LYMPH NODES: There are no measurably enlarged abdominal or pelvic lymph nodes. There is no significant free intraperitoneal fluid. VASCULAR: No abdominal aortic aneurysm. PELVIC VISCERA: The uterus is surgically absent. No suspicious adnexal mass or collection. OSSEOUS STRUCTURES: No suspicious focal abnormality CT/CT abdomen pelvis wo IV con IMPRESSION: No definite evidence of urinary obstruction. There are small nonobstructing renal calculi. Fleischner guidelines were followed.
== END 2023-12-15 12:43 | disposition home or self-care (01) ==
LOC: HO.CT 12:42
PROVIDERS: PCP Nurse Practitioner Family; Visit Provider Urology
DX: N20.0 Calculus of kidney (principal); R10.9 Unspecified abdominal pain
CPT/HCPCS: 74176

== ENCOUNTER 2023-12-15 19:38 | Emergency (ER) | payer MEDICAID, SELFPAY ==
[2023-12-15 19:55] VITALS: BP 167/100; PULSE 80; RESP 20; TEMP 36.5; O2SAT 100; BMI 37.1
--- NOTE | 2023-12-15 19:56 | ED.GENADULT ---
HPI - General Adult General Chief complaint: Abdominal Pain Stated complaint: kidney stones and back pain Time Seen by Provider: 12/16/23 01:08 History of Present Illness HPI narrative: The patient is a 43-year-old female with a history of kidney stones who says that she developed pain in her left flank similar to kidney stone pain yesterday. She says that she has also had chills and nausea. She says that she has also had 3 episodes of vomiting. She says that she also has some mild burning when she urinates. No definite fever. Related Data Home Medications ?Medication ?Instructions ?Recorded ?Confirmed albuterol sulfate 90 mcg/actuation 2 puff inhalation Q4-6H PRN 10/01/20 11/22/23 aerosol inhaler Shortness Of Breath albuterol sulfate 2.5 mg/3 mL 2.5 mg inhalation TID PRN wheezing 04/15/21 11/22/23 (0.083 %) solution for nebulization buspirone 10 mg tablet 10 mg PO TID 04/15/21 11/22/23 docusate sodium 100 mg capsule 100 mg PO BID PRN Constipation 04/15/21 11/22/23 magnesium oxide 400 mg (241.3 mg 200 mg PO DAILY 04/15/21 11/22/23 magnesium) tablet pantoprazole 40 mg tablet,delayed 40 mg PO DAILY 04/15/21 11/22/23 release sennosides 8.6 mg tablet (Senna 17.2 mg PO DAILY PRN constipation 04/15/21 11/22/23 Laxative) terconazole 0.4 % vaginal cream 1 appful vaginal BEDTIME 04/15/21 11/22/23 vitamin A 3,000 mcg (10,000 unit) 1 cap PO DAILY 04/15/21 11/22/23 capsule escitalopram oxalate 20 mg tablet 20 mg PO DAILY 12/16/21 11/22/23 sumatriptan succinate 50 mg tablet 50 mg PO ONCE migraine 01/07/22 11/22/23 clonazepam 0.5 mg tablet 0.5 mg PO DAILY PRN anxiety 02/03/22 11/22/23 Previous Rx's ?Medication ?Instructions ?Recorded blood-glucose meter (FreeStyle #1 ea 07/07/20 Lite Meter kit) ketorolac 10 mg tablet 10 mg PO Q8H PRN pain #10 tabs 02/23/21 tramadol 50 mg tablet 50 mg PO Q8H PRN pain (scale score 04/15/21 1-3) #14 tabs lisinopril 5 mg tablet 5 mg PO DAILY #30 tabs 02/18/22 cholecalciferol (vitamin D3) 50 50 mcg PO DAILY 30 days #30 caps 03/10/22 mcg (2,000 unit) capsule metformin 1,000 mg tablet 1,000 mg PO BID 30 days #60 tabs 03/10/22 cyclobenzaprine 10 mg tablet 10 mg PO TID PRN muscle spasm #10 07/13/22 tabs ibuprofen 600 mg tablet 600 mg PO Q6H PRN pain #30 tabs 07/13/22 blood sugar diagnostic (FreeStyle #100 ea 02/05/23 Lite Strips) empagliflozin 25 mg tablet 25 mg PO DAILY 30 days #30 tabs 03/10/23 (Jardiance) lancets 33 gauge (TRUEplus Lancets) 1 gauge miscellaneous QID for 03/10/23 diabetes mellitus 30 days #100 ea pyridoxine (vitamin B6) 100 mg 100 mg PO DAILY 90 days #90 tabs 03/10/23 tablet metoprolol tartrate 25 mg tablet 12.5 mg (1/2 x 25 mg) PO BID #30 06/25/23 tabs acetaminophen 325 mg capsule 650 mg (2 x 325 mg) PO Q6H PRN 07/20/23 (Tylenol) pain #30 caps liraglutide 0.6 mg/0.1 mL (18 mg/3 1.8 mg (0.3 mL) subcut Q24H 30 08/05/23 mL) subcutaneous pen injector days #9 mL (Victoza 3-Dmitry) atorvastatin 40 mg tablet 40 mg PO DAILY #90 tabs 09/03/23 ibuprofen 600 mg tablet 600 mg PO Q8H PRN pain #15 tabs 11/15/23 naproxen 375 mg tablet 375 mg PO BID PRN pain #14 tabs 11/22/23 ondansetron 8 mg disintegrating 8 mg PO Q8-12H PRN nausea and 11/22/23 tablet vomiting 5 days #15 tabs tamsulosin 0.4 mg capsule (Flomax) 0.4 mg PO BEDTIME #14 caps 11/22/23 pen needle, diabetic 32 gauge x #100 ea 11/23/2308/26 (Novofine 32) Allergies Allergy/AdvReac Type Severity Reaction Status Date / Time diphenhydramine Allergy Intermediate HALLUCINATI Verified 12/15/23 19:59 [From BENADRYL] ONS morphine [MORPHINE] Allergy Intermediate DIAPHORESIS; Verified 12/15/23 19:59 TACHYCARDIA, palpitations, sweating, tingling of hands and face quetiapine [From SEROQUEL] Allergy Intermediate PALPITATION Verified 12/15/23 19:59 S seafood Allergy Intermediate redness/itc Verified 12/15/23 19:59 akhil tomato Allergy Intermediate Blister Verified 12/15/23 19:59 trazodone [TRAZODONE] Allergy Intermediate GI Upset, Verified 12/15/23 19:59 HEART RACING, palpitations pineapple Allergy Unknown Unknown Verified 12/15/23 19:59 prednisone [PREDNISONE] AdvReac Intermediate HEART RACES Verified 12/15/23 19:59 Review of Systems Review of Systems: Yes all other systems are reviewed and are negative FOR[facility]LY [facility] Past Medical History Medical History Transaminitis GERD (gastroesophageal reflux disease) Anxiety Migraines Fatty liver Elevated cholesterol Asthma Vitamin D deficiency HLD (hyperlipidemia) HTN (hypertension) T2DM (type 2 diabetes mellitus) Diabetes mellitus Surgical History History of surgical removal of skin lesion (08/27/22) H/O lithotripsy History of local excision of skin lesion History of hysterectomy (~2011) Family History Family History Father Heart disease Mother No problems noted. Social History Social History Alcohol intake: never Patient Tobacco Use Status: Never used Tobacco Smoked in Last 30 Days: No Second Hand Smoke Exposure: No Use of substances other than those prescribed or required for medical reasons: No Advance Directives: No Advance Directives Information Provided: No Do you have a plan to hurt others: No Plan Patient : No Physical Exam ED Vital Signs: Vital Signs - 24 hr 12/15/23 19:55 12/16/23 00:14 12/16/23 01:51 Temperature 97.7 F 98.8 F 98.1 F Pulse Rate 80 91 85 Respiratory Rate 20 16 16 Blood Pressure 167/100 H 138/73 111/70 Pulse Oximetry 100 96 97 Oxygen Delivery Method Room Air Room Air Room Air BMI result Body Mass Index 37.1 Const Other: The patient is awake and alert. She does not appear in obvious distress. HENMT Other: Face is symmetrical, mucous membranes moist Eyes Other: Pupils are round equal, conjunctivae clear Neck Other: Moving her neck easily Resp Effort & Inspection: normal respiratory effort Auscultation: clear to auscultation bilaterally Cardio Rate: regular rate Rhythm: regular rhythm Heart sounds: S1 normal heart sound present and S2 normal heart sound present GI Other: Abdomen is soft and nontender Back/Spine/Pelvis Other: There was equivocal left-sided CVA percussion tenderness Skin Other: Skin is dry and unremarkable Neuro Other: The patient is awake and alert, face is symmetrical, speech is clear, moving her extremities symmetrically. Grossly neurologically intact. Extrem Other: No calf asymmetry Course Course Course Narrative: This is an RME: Additional HPI, ROS, PE not included below will be deferred to primary provider. 43-year-old female presents with complaints of left-sided flank pain, had an outpatient CT scan done by her PCP because she states she thinks she has kidney stones. CT scan showing no definite evidence of urinary obstruction small nonobstructing renal calculi. Plan labs urine Medications Administered Discontinued Medications Generic Name Dose Route Start Last Admin Trade Name Freq PRN Reason Stop Dose Admin Ketorolac Tromethamine 30 mg 12/16/23 01:25 12/16/23 01:47 Ketorolac Tromethamine 30 Mg/Ml Vial IM 12/16/23 01:26 30 mg ONCE ONE Administration Medical Decision Making Medical Decision Making MDM Narrative: The patient is a 43-year-old woman with a history of kidney stones who presents with left flank pain that she thought was possibly similar to previous episodes of kidney stones. She has had a CT scan of the abdomen and pelvis without contrast that shows intrarenal stones. The CT scan does not show any other obvious acute pathology to explain her symptoms. Her labs are unremarkable with a normal white count and an unremarkable metabolic panel. Her urinalysis shows 2+ blood but is negative for ketones, negative for nitrites, and negative for leukocyte esterase. Additionally it shows only 0-5 white cells and trace bacteria. I reviewed the patient's CT findings with her and explained that her current kidney stones are not in a position to cause any pain. I explained that her urinalysis is not highly suggestive of a urinary tract infection despite her complaint of dysuria. The patient was given an IM injection of ketorolac to address her complaint of discomfort. Otherwise she was discharged to follow up with her regular providers. Lab Data 12/15/23 20:16 12/15/23 20:16 Labs: Lab Results 12/15/23 Range/Units 20:16 WBC 10.6 (4.8-10.8) X10*3/uL RBC 5.00 (4.20-5.50) X10*6/uL Hgb 13.4 (12.0-16.0) g/dl Hct 40.6 (37.0-47.0) % MCV 81.2 (80.0-98.0) fL MCH 26.8 L (27.0-33.0) pg MCHC 33.0 (31.0-35.0) g/dl RDW 13.3 (11.0-16.0) % Plt Count 258 (160-400) X10*3/uL MPV 9.8 (9.4-12.3) fL Immature Gran % (Auto) 0.2 (0.0-0.4) % Neut % (Auto) 76.0 H (45-73) % Lymph % (Auto) 18.7 L (20-40) % [place] % (Auto) 3.8 (2-11) % Eos % (Auto) 1.1 (0-4) % Baso % (Auto) 0.2 (0-2) % Lymph # (Auto) 2.0 (1.2-4.9) X10*3/uL [place] # (Auto) 0.4 (0.1-1.2) X10*3/uL Eos # (Auto) 0.1 (0.0-0.4) X10*3/uL Baso # (Auto) 0.0 (0.0-0.2) X10*3/uL Abs Immat Gran (auto) 0.02 (0.00-0.03) X10*3/uL Absolute Neuts (auto) 8.1 (2.0-8.3) x10*3/uL Absolute Nucleated RBC 0.000 (0.0-0.012) X10*3/uL Nucleated RBC % (auto) 0.0 (0.0-0.2) /100WBC Sodium 142 (135-145) mmol/L Potassium 3.5 (3.3-5.1) mmol/L Chloride 107 (96-108) mmol/L Carbon Dioxide 25 (22-29) mmol/L Anion Gap 14 (12-20) BUN 9 (9-16) mg/dL Creatinine 0.86 (0.5-1.4) mg/dL Estim Creat Clear Calc 81.3 Estimated GFR > 60 Random Glucose 188 H (60-115) mg/dL Calcium 9.7 (8.4-10.2) mg/dL Total Bilirubin 0.4 (0.0-1.0) mg/dL AST 29 (5-31) U/L ALT 26 (0-31) U/L Alkaline Phosphatase 137 H (39-117) U/L Total Protein 8.5 H (6.5-8.0) g/dL Albumin 4.5 (3.5-5.0) g/dL Beta HCG, Quant 3 mIU/mL Urine Color Yellow Urine Appearance Cloudy Urine pH 8.0 (5.0-9.0) Ur Specific [place] 1.010 (1.005-1.025) Urine Protein Negative (Neg-Trace) mg/dL Urine Glucose (UA) 100 H (Negative) mg/dL Urine Ketones Negative (Negative) mg/dL Urine Blood Moderate (2+) H (Negative) Urine Nitrite Negative (Negative) Ur Leukocyte Esterase Negative (Negative) Urine RBC 11-20 H (0-2) /HPF Urine WBC 0-5 (0-5) /HPF Ur Squamous Epith Cells 11-20 (0-2) /HPF Urine Bacteria Trace (None Seen) Hyaline Casts 0-2 (0-2) /LPF Discharge Plan Discharge Clinical Impression: Left flank pain Patient Disposition: Home, Self-Care Additional Instructions: Your testing in the emergency room today is reassuring. Your CT scan shows that you have a small stone and each 1 of your kidneys but these stones are not in a position that are causing any problems or causing any pain. Your blood tests are unremarkable. Your urine test does not suggest that you have a urinary tract infection. I am therefore not certain why you are having the pain in your left kidney area. This may be a muscular pain. Please plan on resting and taking it easy. Please follow up with your regular doctor soon. Return to the emergency room if worse Prescriptions: No Action metformin 1,000 mg tablet 1,000 mg PO BID 30 Days Qty: 60 11RF cholecalciferol (vitamin D3) 50 mcg (2,000 unit) capsule 50 mcg PO DAILY 30 Days Qty: 30 11RF (DME) FreeStyle Lite Strips Strip See Rx Instructions .ROUTE .MEDSUPPLY Qty: 100 11RF Rx Instructions: As directed Test blood glucose 3x daily. Jardiance 25 mg tablet 25 mg PO DAILY 30 Days Qty: 30 11RF lancets [TRUEplus Lancets] 33 gauge misc 1 gauge miscellaneous QID 30 Days Qty: 100 11RF Victoza 3-Dmitry 0.6 mg/0.1 mL (18 mg/3 mL) pen injector 1.8 mg subcut Q24H 30 Days Qty: 9 11RF atorvastatin 40 mg tablet 40 mg PO DAILY Qty: 90 1RF (DME) pen needle, diabetic [Novofine 32] 32 gauge x 1/4 needle See Rx Instructions .ROUTE .COMPLEX Qty: 100 5RF Dose Instruction: USE ONCE DAILY DIRECTED Rx Instructions: USE ONCE DAILY DIRECTED albuterol sulfate 90 mcg/actuation Hfa Aerosol Inhaler 2 puff INHALATION Q4-6H PRN (Reason: Shortness Of Breath) ketorolac 10 mg tablet 10 mg PO Q8H PRN (Reason: pain) Qty: 10 0RF ibuprofen 600 mg tablet 600 mg PO Q6H PRN (Reason: pain) Qty: 30 0RF cyclobenzaprine 10 mg tablet 10 mg PO TID PRN (Reason: muscle spasm) Qty: 10 0RF metoprolol tartrate 25 mg tablet 12.5 mg PO BID Qty: 30 0RF acetaminophen [Tylenol] 325 mg capsule 650 mg PO Q6H PRN (Reason: pain) Qty: 30 0RF (DME) blood-glucose meter [FreeStyle Lite Meter] Kit See Rx Instructions .ROUTE .MEDSUPPLY Qty: 1 0RF Rx Instructions: As directed terconazole 0.4 % cream 1 appful vaginal BEDTIME pantoprazole 40 mg tablet,delayed release (DR/EC) 40 mg PO DAILY albuterol sulfate 2.5 mg /3 mL (0.083 %) solution for nebulization 2.5 mg inhalation TID PRN (Reason: wheezing) sennosides [Senna Laxative] 8.6 mg tablet 17.2 mg PO DAILY PRN (Reason: constipation) docusate sodium 100 mg capsule 100 mg PO BID PRN (Reason: Constipation) buspirone 10 mg tablet 10 mg PO TID vitamin A 10,000 unit capsule 1 cap PO DAILY magnesium oxide 400 mg (241.3 mg magnesium) tablet 200 mg PO DAILY tramadol 50 mg tablet 50 mg PO Q8H PRN (Reason: pain (scale score 1-3)) Qty: 14 0RF lisinopril 5 mg tablet 5 mg PO DAILY Qty: 30 5RF escitalopram oxalate 20 mg tablet 20 mg PO DAILY sumatriptan succinate 50 mg tablet 50 mg PO ONCE clonazepam 0.5 mg tablet 0.5 mg PO DAILY PRN (Reason: anxiety) pyridoxine (vitamin B6) 100 mg tablet 100 mg PO DAILY 90 Days Qty: 90 3RF ibuprofen 600 mg tablet 600 mg PO Q8H PRN (Reason: pain) Qty: 15 0RF tamsulosin [Flomax] 0.4 mg capsule 0.4 mg PO BEDTIME Qty: 14 0RF ondansetron 8 mg tablet,disintegrating 8 mg PO Q8-12H PRN (Reason: nausea and vomiting) 5 Days Qty: 15 0RF naproxen 375 mg tablet 375 mg PO BID PRN (Reason: pain) Qty: 14 0RF Referrals: Radha Shah DISTRIBUTION DRIVER [Primary Care Provider] - (Left flank pain) Interventions: ED Discharge Assessment Last Done: 12/16/23 01:51 Discharge Date/Time: 12/16/23 01:52 Print Language: Citizen Of [place]
[2023-12-15 20:23] LABS: MANUAL DIFF FLAG NO
[2023-12-15 20:24] LABS: Basophils Percent Auto 0.2 % (0-2); Eosinophils Absolute Auto 0.1 X10*3/uL (0.0-0.4); Eosinophils Percent Auto 1.1 % (0-4); Hematocrit 40.6 % (37.0-47.0); Hemoglobin 13.4 g/dl (12.0-16.0); Imm Gran Abs Auto 0.02 X10*3/uL (0.00-0.03); Imm Gran Pct Auto 0.2 % (0.0-0.4); Lymphocytes Percent Auto 18.7 % (20-40); Mean Corpuscular Hemoglobin 26.8 pg (27.0-33.0); Mean Corpuscular Volume 81.2 fL (80.0-98.0); Mean Platelet Volume 9.8 fL (9.4-12.3); Monocytes Absolute Auto 0.4 X10*3/uL (0.1-1.2); Monocytes Percent Auto 3.8 % (2-11); Neutrophils Absolute Auto 8.1 x10*3/uL (2.0-8.3); Platelet Count 258 X10*3/uL (160-400); Red Cell Distribution Width 13.3 % (11.0-16.0); White Blood Count 10.6 X10*3/uL (4.8-10.8)
[2023-12-15 20:25] LABS: Appearance Urine Cloudy; Color Urine Yellow; Glucose Urine UA 100 mg/dL (Negative); Leukocyte Esterase Urine Negative (Negative); Nitrite Urine Negative (Negative); UMIC TRIGGER UACC YES; Urine Blood Moderate (2+) (Negative); Urine Ketones Negative (Negative); Urine Protein Negative (Neg-Trace)
[2023-12-15 20:27] LABS: Bacteria Urine Trace (None Seen); Hyaline Casts Urine 0-2 /LPF (0-2); WBC Urine 0-5 /HPF (0-5)
[2023-12-15 20:38] LABS: Alanine Aminotransferase 26 U/L (0-31); Albumin Level 4.5 g/dL (3.5-5.0); Alkaline Phosphatase 137 U/L (39-117); Anion Gap 14 (12-20); Aspartate Amino Transferase 29 U/L (5-31); Bilirubin Total 0.4 mg/dL (0.0-1.0); Blood Urea Nitrogen 9 mg/dL (9-16); Calcium 9.7 mg/dL (8.4-10.2); Carbon Dioxide 25 mmol/L (22-29); Chloride 107 mmol/L (96-108); Creatinine Clr Calc Pharmacy 81.3; Estimated Glomerular Filt Rate > 60; Glucose Random 188 mg/dL (60-115); Potassium 3.5 mmol/L (3.3-5.1); Sodium 142 mmol/L (135-145); Total Protein 8.5 g/dL (6.5-8.0)
[2023-12-15 20:44] LABS: HCG Quantitative 3 mIU/mL
[2023-12-16 00:14] VITALS: BP 138/73; PULSE 91; RESP 16; TEMP 37.1; O2SAT 96
[2023-12-16] MEDS: Ketorolac Tromethamine 30 MG/ML VIAL IM (01:47)
[2023-12-16 01:51] VITALS: BP 111/70; PULSE 85; RESP 16; TEMP 36.7; O2SAT 97
== END 2023-12-16 01:52 | disposition home or self-care (01) ==
PROVIDERS: Physician Assistant; Emergency Provider Emergency Medicine; PCP Nurse Practitioner Family
DX: R10.9 Unspecified abdominal pain (principal); I10 Essential (primary) hypertension; E11.9 Type 2 diabetes mellitus without complications; Z87.442 Personal history of urinary calculi
CPT/HCPCS: 36415; 80053; 81001; 84702; 85025; 96372; 99284; J1885

== ENCOUNTER 2023-12-20 16:40 | Outpatient (REF) | payer MEDICAID, SELFPAY ==
[2023-12-23 13:12] LABS: Alphahydroxymidazolam,GCMS Ur NEGATIVE; Alphahydroxytriazolam, GCMS Ur NEGATIVE; Alprazolam, GCMS Urine NEGATIVE; Flurazepam Metabolite,GCMS Ur NEGATIVE; Lorazepam GCMS Urine NEGATIVE; Nordiazepam, GCMS Urine NEGATIVE; Oxazepam, GCMS Urine NEGATIVE; Temazepam, GCMS Urine NEGATIVE
== END 2023-12-20 16:41 | disposition home or self-care (01) ==
LOC: HO.HHCLNP 16:40
PROVIDERS: Visit Provider Nurse Practitioner Family
DX: R10.9 Unspecified abdominal pain (principal); G89.29 Other chronic pain
CPT/HCPCS: 80346

== ENCOUNTER 2023-12-23 12:38 | Outpatient (REF) | payer MEDICAID, SELFPAY ==
[2023-12-23 14:03] LABS: Appearance Urine Turbid; Color Urine Yellow; Glucose Urine UA Negative (Negative); Leukocyte Esterase Urine Trace (Negative); Nitrite Urine Negative (Negative); PH 6.5 (5.0-9.0); UMIC TRIGGER UA YES; Urine Blood Small (1+) (Negative); Urine Ketones Negative (Negative); Urine Protein Trace mg/dL (Neg-Trace)
[2023-12-23 15:28] LABS: Bacteria Urine 4+ (None Seen); RBC Urine 0-2 /HPF (0-2); Squamous Epithelial Cell Urine >20 /HPF (0-2); WBC Urine 0-5 /HPF (0-5)
== END 2023-12-23 12:39 | disposition home or self-care (01) ==
LOC: HO.LAB 12:38
PROVIDERS: PCP Nurse Practitioner Family; Visit Provider Urology
DX: N20.0 Calculus of kidney (principal); R10.9 Unspecified abdominal pain; R00.2 Palpitations; I42.9 Cardiomyopathy, unspecified
CPT/HCPCS: 81001; 87086; 93005; 99212

== ENCOUNTER 2023-12-23 12:58 | Outpatient (AMB) | payer MEDICAID, SELFPAY ==
--- NOTE | 2023-12-23 13:10 | A.OFFVIS_ITS ---
Vital Signs 12/23/23 13:17 Height 5 ft Weight 196 lb 3.382 oz BMI 38.3 BP 120/84 Blood Pressure Location Rt brachial Position Sitting Pulse 87 Intake Visit Reasons: r/s x3 1 year f/u w/ekg dx: cardiomyopathy Intake Note: Over due follow-up with ekg c/o palpitations at night Garment [employer] Cutter Machine Required: Yes Garment Parts Cutter Machine Name: Mehdi morelosracom Allergies diphenhydramine [From BENADRYL] Allergy (Intermediate, Verified 12/15/23 19:59) HALLUCINATIONS morphine [MORPHINE] Allergy (Intermediate, Verified 12/15/23 19:59) DIAPHORESIS; TACHYCARDIA, palpitations, sweating, tingling of hands and face quetiapine [From SEROQUEL] Allergy (Intermediate, Verified 12/15/23 19:59) PALPITATIONS seafood Allergy (Intermediate, Verified 12/15/23 19:59) redness/itching tomato Allergy (Intermediate, Verified 12/15/23 19:59) Blister trazodone [TRAZODONE] Allergy (Intermediate, Verified 12/15/23 19:59) GI Upset, HEART RACING, palpitations pineapple Allergy (Unknown, Verified 12/15/23 19:59) Unknown prednisone [PREDNISONE] Adverse Reaction (Intermediate, Verified 12/15/23 19:59) HEART RACES Medication List - Last Reconciled 12/23/23 by Alfredito Constantino MD acetaminophen (Tylenol) 650 mg (2 x 325 mg) PO Q6H PRN albuterol sulfate 90 mcg/actuation 2 puffs inhalation Q4-6H PRN albuterol sulfate 2.5 mg inhalation TID PRN atorvastatin 40 mg PO DAILY blood sugar diagnostic (FreeStyle Lite Strips) As directed Test blood glucose 3x daily. blood-glucose meter (FreeStyle Lite Meter kit) As directed buspirone 10 mg PO TID cholecalciferol (vitamin D3) 50 mcg PO DAILY 30 days clonazepam 0.5 mg PO DAILY PRN cyclobenzaprine 10 mg PO TID PRN docusate sodium 100 mg PO BID PRN empagliflozin (Jardiance) 25 mg PO DAILY 30 days escitalopram oxalate 20 mg PO DAILY ibuprofen 600 mg PO Q6H PRN ketorolac 10 mg PO Q8H PRN lancets (TRUEplus Lancets) 1 gauge miscellaneous QID 30 days liraglutide (Victoza 3-Dmitry) 1.8 mg (0.3 mL) subcut Q24H 30 days lisinopril 5 mg PO DAILY magnesium oxide 200 mg PO DAILY metformin 1,000 mg PO BID 30 days metoprolol tartrate 12.5 mg (1/2 x 25 mg) PO BID naproxen 375 mg PO BID PRN ondansetron 8 mg PO Q8-12H PRN 5 days pantoprazole 40 mg PO DAILY pen needle, diabetic (Novofine 32) USE ONCE DAILY DIRECTED pyridoxine (vitamin B6) 100 mg PO DAILY 90 days sennosides (Senna Laxative) 17.2 mg PO DAILY PRN sumatriptan succinate 50 mg PO ONCE tamsulosin (Flomax) 0.4 mg PO BEDTIME terconazole 0.4% 1 appful vaginal BEDTIME tramadol 50 mg PO Q8H PRN vitamin A 1 cap PO DAILY HPI Comments Details: Sacha comes for follow-up after a long gap. History was obtained with help of scientific linguist over the phone. Patient says over the last several months she has been getting palpitations almost on daily basis which wakes her up from sleep. She feels rapid heart rate with rapid pounding in her chest. Symptoms last for about half an hour and then subside. She is very concerned about the symptoms. She has not had any other associated symptoms of congestive heart failure. She denies any neurologic symptoms or bleeding issues. Medicines reported in the chart lisinopril and metoprolol for cardiomyopathy, she says she takes although she use not very positive about it. She has not had any cardiac testing in the near future. She does attest to snoring and apneic episodes at nighttime witnessed. She denies any lightheadedness, syncope. No orthopnea, PND, leg edema. [facility] Medical History Transaminitis GERD (gastroesophageal reflux disease) Anxiety Migraines Fatty liver Elevated cholesterol Asthma Vitamin D deficiency HLD (hyperlipidemia) HTN (hypertension) T2DM (type 2 diabetes mellitus) Diabetes mellitus Surgical History History of surgical removal of skin lesion (08/27/22) H/O lithotripsy History of local excision of skin lesion History of hysterectomy (~2011) Family History Father Heart disease Mother No problems noted. Social History Alcohol intake: never Patient Tobacco Use Status: Never used Tobacco Second Hand Smoke Exposure: No Physical Exam Vital Signs: Last Vital Signs Pulse 87 12/23/23 13:17 BP 120/84 12/23/23 13:17 BMI result Body Mass Index 38.3 Const General: cooperative, comfortable, no acute distress, alert and awake Nutritional Appearance: obese Orientation/consciousness: patient oriented x3 Limitations: no limitations Neck Neck: Yes trachea midline, Yes supple and Yes no JVD Resp Effort & Inspection: normal respiratory effort Auscultation: clear to auscultation bilaterally Cardio Palpation: normal PMI Rate: regular rate Rhythm: regular rhythm Heart sounds: S1 normal heart sound present, S2 normal heart sound present, no click, no gallops, no murmurs and no rubs GI Inspection: Yes obesity Auscultation: normal bowel sounds Skin General skin exam: no rashes or lesions noted Neuro General: patient oriented x3 and no focal motor deficits Extrem General: Yes no clubbing, cyanosis or edema Psych Appearance: grossly normal Affect: Anxious affect present Office Procedures EKG Details: EKG shows normal sinus rhythm normal EKG at 87 beats per minute [id number], Complete Assessment & Plan Assessment & Plan (1) Palpitations: Code(s): R00.2 - Palpitations Category: Medical Plan: Patient with recent onset symptoms of palpitation mostly at nighttime waking her from sleep. Possibility of atrial fibrillation exist given her prior history as well as high likelihood of underlying obstructive sleep apnea. Would suggest a Holter monitor to further assess for the symptoms the symptoms happen on a daily basis, will do a 2 day Holter monitor. Advised to avoid stimulants. Given her body habitus as well as reported history sleep apnea needs to be ruled out. Will suggest a home sleep study. Also further worsening in LV systolic function should be pursued. Will obtain an echocardiogram in near future to assess for LV systolic function and biatrial chamber size. (2) Cardiomyopathy: Code(s): I42.9 - Cardiomyopathy, unspecified Category: Medical Plan: Mild cardiomyopathy without any signs or symptoms of heart failure. Assess for sleep apnea. Assess for atrial fibrillation as above. Continue neurohormonal modulation with metoprolol lisinopril, make sure that she is taking it. Further treatment based on finding of echocardiogram. Continue participate in weight loss program. Will follow up in 6 weeks time after above-mentioned test. Thank you for allowing me to partake in her care Orders: Orders CA echo transthoracic complete Today I42.9 - Cardiomyopathy, unspecified RT home sleep study Today R06.81 - Apnea, not elsewhere classified ECG holter monitor 48 hour Today R00.2 - Palpitations Coding Level of Care Code Est Pt Level 4 (23980) Diagnoses Palpitations R00.2 Cardiomyopathy I42.9 CPT Codes EKG - CPT: [id number], Complete ([id number])
[2023-12-23 13:17] VITALS: BP 120/84; PULSE 87; BMI 38.3
== END 2023-12-23 13:44 | disposition home or self-care (01) ==
PROVIDERS: PCP Nurse Practitioner Family; Referring Provider Nurse Practitioner Family; Visit Provider Internal Medicine Cardiovascular Disease
DX: R00.2 Palpitations (principal); I42.9 Cardiomyopathy, unspecified
CPT/HCPCS: 93010; 99214

== ENCOUNTER 2023-12-30 13:20 | Outpatient (AMB) | payer MEDICAID, SELFPAY ==
--- NOTE | 2023-12-30 13:20 | A.OFFVIS_ITS ---
Intake Visit Reasons: 3w follow up Intake Note: Patient presents today for a follow up on CT Results and UTI: Meds- Flomax & Cipro Allergies to Antibiotic- No Known Allergies Blood Thinner- None Talent Development Specialist Required: Yes Accompanied by: Self / Same As Patient Allergies diphenhydramine [From BENADRYL] Allergy (Intermediate, Verified 12/30/23 13:21) HALLUCINATIONS morphine [MORPHINE] Allergy (Intermediate, Verified 12/30/23 13:21) DIAPHORESIS; TACHYCARDIA, palpitations, sweating, tingling of hands and face quetiapine [From SEROQUEL] Allergy (Intermediate, Verified 12/30/23 13:21) PALPITATIONS seafood Allergy (Intermediate, Verified 12/30/23 13:21) redness/itching tomato Allergy (Intermediate, Verified 12/30/23 13:21) Blister trazodone [TRAZODONE] Allergy (Intermediate, Verified 12/30/23 13:21) GI Upset, HEART RACING, palpitations pineapple Allergy (Unknown, Verified 12/30/23 13:21) Unknown prednisone [PREDNISONE] Adverse Reaction (Intermediate, Verified 12/30/23 13:21) HEART RACES Medication List - Last Reconciled 12/30/23 by Lee Winter MD acetaminophen (Tylenol) 650 mg (2 x 325 mg) PO Q6H PRN albuterol sulfate 90 mcg/actuation 2 puffs inhalation Q4-6H PRN albuterol sulfate 2.5 mg inhalation TID PRN atorvastatin 40 mg PO DAILY blood sugar diagnostic (FreeStyle Lite Strips) As directed Test blood glucose 3x daily. blood-glucose meter (FreeStyle Lite Meter kit) As directed buspirone 10 mg PO TID cholecalciferol (vitamin D3) 50 mcg PO DAILY 30 days ciprofloxacin HCl 500 mg PO BID 5 days clonazepam 0.5 mg PO DAILY PRN cyclobenzaprine 10 mg PO TID PRN docusate sodium 100 mg PO BID PRN empagliflozin (Jardiance) 25 mg PO DAILY 30 days escitalopram oxalate 20 mg PO DAILY ibuprofen 600 mg PO Q6H PRN ketorolac 10 mg PO Q8H PRN lancets (TRUEplus Lancets) 1 gauge miscellaneous QID 30 days liraglutide (Victoza 3-Dmitry) 1.8 mg (0.3 mL) subcut Q24H 30 days lisinopril 5 mg PO DAILY magnesium oxide 200 mg PO DAILY metformin 1,000 mg PO BID 30 days metoprolol tartrate 12.5 mg (1/2 x 25 mg) PO BID naproxen 375 mg PO BID PRN ondansetron 8 mg PO Q8-12H PRN 5 days pantoprazole 40 mg PO DAILY pen needle, diabetic (Novofine 32) USE ONCE DAILY DIRECTED pyridoxine (vitamin B6) 100 mg PO DAILY 90 days sennosides (Senna Laxative) 17.2 mg PO DAILY PRN sumatriptan succinate 50 mg PO ONCE tamsulosin (Flomax) 0.4 mg PO BEDTIME terconazole 0.4% 1 appful vaginal BEDTIME tramadol 50 mg PO Q8H PRN vitamin A 1 cap PO DAILY HPI Comments Details: 12/30/2023--Sacha presents for telehealth follow-up. She has had intermittent right flank pain. Certified seismic interpreter present. I have reviewed recent CT KUB--bilateral renal calculi right > left. Discussed risks to include but not limited to, blood in the urine, bruising to the skin, kidney hematoma, possible need for another procedure if a stone fragment obstructs the ureter while passing, possible need to repeat procedure if stone is not completely fragmented. 12/15/2023---CT KUB-- 0.4 cm nonobstructing mid right renal calculus, one additional punctate nonobstructing calculus in the lower pole of the right kidney. nonobstructing 0.3 cm mid left renal calculus. 30 minutes spent in review of records pertaining to this visit and discussion with the patient and documentation of this visit. Plan right ESWL Review of chart: 11/22/2023-- Sacha is a 42-year-old female who presents for follow-up, she has complaints right-sided flank pain. Renal ultrasound was done on 11/02/2023 to re-evaluate kidney stones. I have reviewed results with the patient. The patient is Occitan-speaking and certified seismic interpreter present. I have discussed that the renal ultrasound indicates that kidney stones on the right are larger than noted on prior CT scan of February 2023, and new stones in the left kidney. She had a KUB x-ray in September this year at which time radiopaque calcifications were not clearly visualized. The patient complains of pain from her flank towards the bladder which are intermittent. Examination right CVA tenderness. I have discussed with the patient she may be passing a stone and I will prescribe Flomax and Zofran. Naproxen p.r.n. will check a stat CT KUB. 10/04/23-- The patient is a Occitan-speaking female, Certified seismic interpreter present. The patient has had previous lithotripsies in the past for kidney stones. LV--Telehealth on 03/10/23?She was last seen in the office on 06/29/22. The patient reports she was seen recently for UTI symptoms at the urgent care and completed abx therapy a few days ago She denies any gross hematuria. I have discussed KUB results, limited by presence of bowel gas and stool. Plan- Continue taking vitamin B6. Recommended to use a heating pad for intermittent flank pain. She can use Tylenol or Advil as needed. Renal US. 02/24/23 -- CTAP -- small 1-2 mm stone in the upper pole of the right kidney. Nephrolithiasis Urolithiasis was diagnosed? - 2019 Prior treatment(s) include - 10/13 ESWL right side - did have trouble passing fragments Prior imaging includes? - 09/12 renal ultrasound with 2-3 3-4 mm stones on right kidney - 10/14/20 CT scan with small stone fragment down in right distal ureter - 11/10 - renal ultrasound no stones - 03/12? CT scan 3 mm distal stone right side mild hydro -05/29/2022 - Right kidney 3 mm stone no hydro 12/30/2023--plan right ESWL [facility] Medical History Transaminitis GERD (gastroesophageal reflux disease) Anxiety Migraines Fatty liver Elevated cholesterol Asthma Vitamin D deficiency HLD (hyperlipidemia) HTN (hypertension) T2DM (type 2 diabetes mellitus) Diabetes mellitus Surgical History History of surgical removal of skin lesion (08/27/22) H/O lithotripsy History of local excision of skin lesion History of hysterectomy (~2011) Family History Father Heart disease Mother No problems noted. Social History Alcohol intake: never Patient Tobacco Use Status: Never used Tobacco Second Hand Smoke Exposure: No Review of Systems Const All systems reviewed & are unremarkable except as noted in HPI and below Reports no additional complaints Eyes Reports no additional complaints ENT Reports no additional complaints Card Reports no additional complaints Resp Reports no additional complaints GI Reports no additional complaints Reports as per HPI Musc Reports no additional complaints Skin/Breast Reports system reviewed and no additional complaints, except as documented Neuro Reports no additional complaints Psych Reports no additional complaints Endo Reports no additional complaints Bin/Lymph Reports no additional complaints Aller/Immun Reports no additional complaints Telehealth Telehealth Telehealth Platform: Telephone Location of provider rendering services: practice address Location of patient: address on file Patient Identification confirmed using: Name, : Yes Telehealth method: voice only Patient verbally consented to treatment: Yes Patient verbally consented to billing insurance company: Yes Patient informed of any privacy concerns related to visit: Yes Minutes spent on Phone/Video with Pt.: 20 Results Reviewed Results Reviewed: Date of Service: 12/15/23 CT ABDOMEN AND PELVIS WITHOUT CONTRAST CLINICAL INFORMATION: Calculus of kidney COMPARISON: Origins of a previous study 02/24/23 TECHNIQUE: Multidetector volumetric imaging was performed from the superior aspect of the liver through the pubic symphysis. Sagittal and coronal reformatted images were obtained on the technologist's workstation. This CT examination was performed using dose optimization techniques as appropriate, variously including the following: *Automated exposure control *Adjustment of mA and/or kV according to patient size (this includes techniques or standardized protocols for targeted exams where dose is matched to indication/reason for exam; i.e. extremities or head) *Use of iterative reconstruction technique DLP: 680 mGy-cm FINDINGS: LUNG BASES: No suspicious abnormality in the visualized lower chest LIVER, GALLBLADDER, AND BILIARY TREE: There is diffuse fatty change. There is no opaque gallstone. There is no biliary dilation PANCREAS: No suspicious abnormality. SPLEEN: Normal ADRENAL GLANDS: Normal KIDNEYS AND URETERS: There is no dilation of the urinary collecting system on either side. There is a 0.4 cm nonobstructing mid right renal calculus 9.8 cm from the skin. There is at least one additional punctate nonobstructing calculus in the lower pole of the right kidney. There is a nonobstructing 0.3 cm mid left renal calculus 9.9 cm from the skin. BLADDER: The urinary bladder is essentially empty. No large abnormality demonstrated. GASTROINTESTINAL TRACT: No localized colonic wall thickening or pericolonic fat stranding. No small bowel dilation. No suspicious abnormality the stomach. No CT evidence of acute appendicitis. ABDOMINAL WALL: Trace amount of fat protruding through the plane between the lateral lower right rectus and oblique muscles with no bowel hernia. Subcutaneous fat stranding may be iatrogenic. LYMPH NODES: There are no measurably enlarged abdominal or pelvic lymph nodes. There is no significant free intraperitoneal fluid. VASCULAR: No abdominal aortic aneurysm. PELVIC VISCERA: The uterus is surgically absent. No suspicious adnexal mass or collection. OSSEOUS STRUCTURES: No suspicious focal abnormality IMPRESSION: No definite evidence of urinary obstruction. There are small nonobstructing renal calculi. Assessment & Plan Assessment & Plan (1) Nephrolithiasis: Code(s): N20.0 - Calculus of kidney Category: Medical (2) Bilateral kidney stones: Code(s): N20.0 - Calculus of kidney Category: Medical Plan Right ESWL Patient Instructions: The patient had an opportunity to ask questions regarding treatment plan. The patient expressed understanding and agreement with the above treatment plan. The patient is aware they should contact our office by phone for worsening of their current condition or the appearance of new symptoms. Compliance is encouraged with any medications and followup testing that is ordered. It is a privilege to be allowed the opportunity to participate in the urologic care of your patient. If you have any questions or concerns regarding treatment for the above conditions please do not hesitate to contact me. The office telephone contact is [phone]. This note is constructed in part using voice recognition software. While every effort has been made to ensure accuracy payment analyst errors may have been included. Yours sincerely, Lee Winter MD Coding Level of Care Code Tele Est Pt Level 4 (19494) Diagnoses Nephrolithiasis N20.0 Bilateral kidney stones N20.0 Time Spent (min) 30 Comment 30 min. spent in review of records pertaining to this visit and discussion with the pt
== END 2023-12-30 15:19 | disposition home or self-care (01) ==
LOC: HO.HUSH 13:20
PROVIDERS: PCP Nurse Practitioner Family; Visit Provider Urology
DX: N20.0 Calculus of kidney (principal)
CPT/HCPCS: 99214

== ENCOUNTER → 2023-12-30 13:20 | Outpatient (BNVA) | payer MEDICAID, SELFPAY | PROVIDERS: PCP Nurse Practitioner Family; Visit Provider Urology ==

== ENCOUNTER 2024-01-04 11:53 | Outpatient (AMB) | payer MEDICAID, SELFPAY ==
--- NOTE | 2024-01-04 12:11 | A.OFFVIS_ITS ---
Vital Signs 01/04/24 12:28 Height 5 ft 2 in Weight 196 lb BMI 35.8 BP 137/80 Blood Pressure Location Lt brachial Position Sitting Pulse 104 H Intake Visit Reasons: excision of left abdomen cyst Intake Note: Patient is seen for office procedure, excision of left abdomen cyst. Pt c/o: here for procedure, no changes since last visit Psychological Tests Sales Agent Required: Yes Psychological Tests Sales Agent Language: Immersion Metal Cleaner Name: Ronda MENG Accompanied by: Self / Same As Patient Allergies diphenhydramine [From BENADRYL] Allergy (Intermediate, Verified 01/04/24 12:29) HALLUCINATIONS morphine [MORPHINE] Allergy (Intermediate, Verified 01/04/24 12:29) DIAPHORESIS; TACHYCARDIA, palpitations, sweating, tingling of hands and face quetiapine [From SEROQUEL] Allergy (Intermediate, Verified 01/04/24 12:29) PALPITATIONS seafood Allergy (Intermediate, Verified 01/04/24 12:29) redness/itching tomato Allergy (Intermediate, Verified 01/04/24 12:29) Blister trazodone [TRAZODONE] Allergy (Intermediate, Verified 01/04/24 12:29) GI Upset, HEART RACING, palpitations pineapple Allergy (Unknown, Verified 01/04/24 12:29) Unknown prednisone [PREDNISONE] Adverse Reaction (Intermediate, Verified 01/04/24 12:29) HEART RACES Medication List - Last Reconciled 01/04/24 by Lionel Cintron MD acetaminophen (Tylenol) 650 mg (2 x 325 mg) PO Q6H PRN albuterol sulfate 90 mcg/actuation 2 puffs inhalation Q4-6H PRN albuterol sulfate 2.5 mg inhalation TID PRN atorvastatin 40 mg PO DAILY blood sugar diagnostic (FreeStyle Lite Strips) As directed Test blood glucose 3x daily. blood-glucose meter (FreeStyle Lite Meter kit) As directed buspirone 10 mg PO TID cholecalciferol (vitamin D3) 50 mcg PO DAILY 30 days ciprofloxacin HCl 500 mg PO BID 5 days clonazepam 0.5 mg PO DAILY PRN cyclobenzaprine 10 mg PO TID PRN docusate sodium 100 mg PO BID PRN empagliflozin (Jardiance) 25 mg PO DAILY 30 days escitalopram oxalate 20 mg PO DAILY ibuprofen 600 mg PO Q6H PRN ketorolac 10 mg PO Q8H PRN lancets (TRUEplus Lancets) 1 gauge miscellaneous QID 30 days liraglutide (Victoza 3-Dmitry) 1.8 mg (0.3 mL) subcut Q24H 30 days lisinopril 5 mg PO DAILY magnesium oxide 200 mg PO DAILY metformin 1,000 mg PO BID 30 days metoprolol tartrate 12.5 mg (1/2 x 25 mg) PO BID naproxen 375 mg PO BID PRN ondansetron 8 mg PO Q8-12H PRN 5 days pantoprazole 40 mg PO DAILY pen needle, diabetic (Novofine 32) USE ONCE DAILY DIRECTED pyridoxine (vitamin B6) 100 mg PO DAILY 90 days sennosides (Senna Laxative) 17.2 mg PO DAILY PRN sumatriptan succinate 50 mg PO ONCE tamsulosin (Flomax) 0.4 mg PO BEDTIME terconazole 0.4% 1 appful vaginal BEDTIME tramadol 50 mg PO Q8H PRN vitamin A 1 cap PO DAILY HPI Comments Details: Patient returns today for excision of the abdominal wall cyst left lower quadrant. [facility] Medical History Transaminitis GERD (gastroesophageal reflux disease) Anxiety Migraines Fatty liver Elevated cholesterol Asthma Vitamin D deficiency HLD (hyperlipidemia) HTN (hypertension) T2DM (type 2 diabetes mellitus) Diabetes mellitus Surgical History History of surgical removal of skin lesion (08/27/22) H/O lithotripsy History of local excision of skin lesion History of hysterectomy (~2011) Family History Father Heart disease Mother No problems noted. Social History Alcohol intake: never Patient Tobacco Use Status: Never used Tobacco Second Hand Smoke Exposure: No Physical Exam Vital Signs: Last Vital Signs Pulse 104 H 01/04/24 12:28 BP 137/80 01/04/24 12:28 BMI result Body Mass Index 35.8 Office Procedures Excision Details: Preoperative diagnosis: Skin lesion left lower quadrant abdomen Postoperative diagnosis: Same Procedure: Wide excision skin lesion left lower quadrant abdomen Surgeon: Lionel Cintron MD Sustainability Officer: None Anesthesia: Lidocaine 1% with epinephrine Indications for procedure: 43-year-old female with a previous excision in the left lower quadrant now with a painful mass at this location. On examination there is a 2 cm mass at the site of her previous excision. This may be residual epidermal inclusion cyst or scar tissue. Operative findings: Scar tissue Specimen: Skin lesion left lower quadrant abdomen Estimated blood loss: Less than 2 mL Complications: None Procedure details: Patient was placed in a supine position in the procedure room. After assuring informed consent and confirmation of the site of surgery by the patient, the skin was prepped with Betadine and draped in a sterile fashion. Local anesthesia was then infiltrated around the lesion. A elliptical incision oriented transversely was then created with a scalpel. The incision was carried down through the subcutaneous tissue and around the skin lesion. This was passed off the table and sent to pathology for further examination. Skin was then closed using interrupted 3-0 nylon sutures. Skin dressings consisting of 2 x 2 gauze and Tegaderm were then applied. The patient tolerated the procedure well. She was discharged to home in stable condition. 02614-chyzl/arms/legs 1.1-2cm Procedure code (CPT) selection complete Assessment & Plan Assessment & Plan (1) Skin lesion: Code(s): L98.9 - Disorder of the skin and subcutaneous tissue, unspecified Category: Medical Plan Patient tolerated excision and will return in 1 week for suture removal. Orders: Orders Surgical Today L98.9 - Disorder of the skin and subcutaneous tissue, unspecified Coding Level of Care Code Procedure Only Diagnoses Skin lesion L98.9 CPT Codes Trunk/Arms/Legs - CPT: 93044-cuvir/arms/legs 1.1-2cm ([id number])
[2024-01-04 12:28] VITALS: BP 137/80; PULSE 104; BMI 35.8
== END 2024-01-04 12:30 | disposition home or self-care (01) ==
PROVIDERS: PCP Nurse Practitioner Family; Visit Provider Surgery
DX: L98.9 Disorder of the skin and subcutaneous tissue, unspecified (principal)
CPT/HCPCS: 11402

== ENCOUNTER 2024-01-04 11:53 | Outpatient (REF) | payer MEDICAID, SELFPAY | END 2024-01-04 11:54 | disposition home or self-care (01) | LOC: HO.LNP 11:53 | PROVIDERS: PCP Nurse Practitioner Family; Visit Provider Surgery | DX: R19.04 Left lower quadrant abdominal swelling, mass and lump (principal); L90.5 Scar conditions and fibrosis of skin | CPT/HCPCS: 11402; 88304; 88305 ==

== ENCOUNTER 2024-01-18 12:43 | Outpatient (AMB) | payer MEDICAID, SELFPAY ==
--- NOTE | 2024-01-18 12:57 | A.OFFVIS_ITS ---
Vital Signs 3 01/18/24 13:03 Height 5 ft 2 in Weight 196 lb BMI 35.8 Intake Visit Reasons: s/p excision of left abdomen cyst Intake Note: This patient presents for a post-op assessment status post excision of left abdomen cyst. Patient c/o; reports no complaints pertaining to surgery, reports noticed a skin lesion on her left breast when she did a self-exam while showering 2 days ago. Telephone Order Supervisor Required: Yes Telephone Order Supervisor Language: Trenching Machine Operator Name: Nichol Information Interpreted: non-clinical & clinical Accompanied by: Self / Same As Patient Allergies diphenhydramine [From BENADRYL] Allergy (Intermediate, Verified 01/18/24 13:02) HALLUCINATIONS morphine [MORPHINE] Allergy (Intermediate, Verified 01/18/24 13:02) DIAPHORESIS; TACHYCARDIA, palpitations, sweating, tingling of hands and face quetiapine [From SEROQUEL] Allergy (Intermediate, Verified 01/18/24 13:02) PALPITATIONS seafood Allergy (Intermediate, Verified 01/18/24 13:02) redness/itching tomato Allergy (Intermediate, Verified 01/18/24 13:02) Blister trazodone [TRAZODONE] Allergy (Intermediate, Verified 01/18/24 13:02) GI Upset, HEART RACING, palpitations pineapple Allergy (Unknown, Verified 01/18/24 13:02) Unknown prednisone [PREDNISONE] Adverse Reaction (Intermediate, Verified 01/18/24 13:02) HEART RACES Medication List - Last Reconciled 01/18/24 by Lionel Cintron MD acetaminophen (Tylenol) 650 mg (2 x 325 mg) PO Q6H PRN albuterol sulfate 90 mcg/actuation 2 puffs inhalation Q4-6H PRN albuterol sulfate 2.5 mg inhalation TID PRN atorvastatin 40 mg PO DAILY blood sugar diagnostic (FreeStyle Lite Strips) As directed Test blood glucose 3x daily. blood-glucose meter (FreeStyle Lite Meter kit) As directed buspirone 10 mg PO TID cholecalciferol (vitamin D3) 50 mcg PO DAILY 30 days ciprofloxacin HCl 500 mg PO BID 5 days clonazepam 0.5 mg PO DAILY PRN cyclobenzaprine 10 mg PO TID PRN docusate sodium 100 mg PO BID PRN empagliflozin (Jardiance) 25 mg PO DAILY 30 days escitalopram oxalate 20 mg PO DAILY ibuprofen 600 mg PO Q6H PRN ketorolac 10 mg PO Q8H PRN lancets (TRUEplus Lancets) 1 gauge miscellaneous QID 30 days liraglutide (Victoza 3-Dmitry) 1.8 mg (0.3 mL) subcut Q24H 30 days lisinopril 5 mg PO DAILY magnesium oxide 200 mg PO DAILY metformin 1,000 mg PO BID 30 days metoprolol tartrate 12.5 mg (1/2 x 25 mg) PO BID naproxen 375 mg PO BID PRN ondansetron 8 mg PO Q8-12H PRN 5 days pantoprazole 40 mg PO DAILY pen needle, diabetic (Novofine 32) USE ONCE DAILY DIRECTED pyridoxine (vitamin B6) 100 mg PO DAILY 90 days sennosides (Senna Laxative) 17.2 mg PO DAILY PRN sumatriptan succinate 50 mg PO ONCE tamsulosin (Flomax) 0.4 mg PO BEDTIME terconazole 0.4% 1 appful vaginal BEDTIME tramadol 50 mg PO Q8H PRN vitamin A 1 cap PO DAILY HPI Comments Details: Patient returns 1 week following excision of an abdominal wall skin lesion. She tolerated the procedure well returns today for wound check and suture removal. Pathology revealed benign tissue and dermal scar. [facility] Medical History Transaminitis GERD (gastroesophageal reflux disease) Anxiety Migraines Fatty liver Elevated cholesterol Asthma Vitamin D deficiency HLD (hyperlipidemia) HTN (hypertension) T2DM (type 2 diabetes mellitus) Diabetes mellitus Surgical History History of surgical removal of skin lesion (08/27/22) H/O lithotripsy History of local excision of skin lesion History of hysterectomy (~2011) Family History Father Heart disease Mother No problems noted. Social History Alcohol intake: never Patient Tobacco Use Status: Never used Tobacco Second Hand Smoke Exposure: No Physical Exam Vital Signs: BMI result Body Mass Index 35.8 Const General: no acute distress Nutritional Appearance: well nourished Chest Chest/axillae images: 2 1. 1 cm superficial skin lesion, cystic in nature noted with no erythema and no underlying palpable breast mass. No other suspicious finding appreciated GI Other: Incision in the left upper quadrant is clean, dry, and intact. Sutures removed the wound found to be well healed. Assessment & Plan Assessment & Plan (1) Skin lesion: Code(s): L98.9 - Disorder of the skin and subcutaneous tissue, unspecified Category: Medical Plan Patient returns today following excision of a skin lesion in the left upper quadrant abdomen. She tolerated the procedure well the wounds have healed nicely. Sutures removed and wounds found to be well healed. She should follow up as needed. Coding Level of Care Code Global (87028) Diagnoses Skin lesion L98.9
[2024-01-18 13:03] VITALS: BMI 35.8
== END 2024-01-18 13:10 | disposition home or self-care (01) ==
PROVIDERS: PCP Nurse Practitioner Family; Visit Provider Surgery
DX: L98.9 Disorder of the skin and subcutaneous tissue, unspecified (principal)
CPT/HCPCS: 99024

== ENCOUNTER → 2024-01-18 12:43 | Outpatient (BNVA) | payer MEDICAID, SELFPAY | PROVIDERS: PCP Nurse Practitioner Family; Visit Provider Surgery | DX: Z48.817 Encounter for surgical aftercare following surgery on the skin and subcutaneous tissue (principal); M65.4 Radial styloid tenosynovitis [de Quervain]; M25.532 Pain in left wrist; R20.0 Anesthesia of skin; R20.2 Paresthesia of skin; E11.65 Type 2 diabetes mellitus with hyperglycemia; Z98.890 Other specified postprocedural states | CPT/HCPCS: 20550; 99202; 99212; J1100 ==

== ENCOUNTER 2024-01-18 14:29 | Outpatient (AMB) | payer MEDICAID, SELFPAY ==
--- NOTE | 2024-01-18 15:40 | MHC.OFFVIS ---
Intake Visit Reasons: N/P left wrist pain/tendonitis Intake Note: Sacha 43 yr old right hand dominant presents today for a new patient visit for her left wrist pain/tendonitis. States pain is mainly on her volar aspect of wrist and has worsen with time. Pain is worsen with heavy lifting, pinching and gripping. She expresses that her pain is on the base of the thumb and it moves down to the volar aspect of the wrist. Allergies diphenhydramine [From BENADRYL] Allergy (Intermediate, Verified 01/18/24 15:42) HALLUCINATIONS morphine [MORPHINE] Allergy (Intermediate, Verified 01/18/24 15:42) DIAPHORESIS; TACHYCARDIA, palpitations, sweating, tingling of hands and face quetiapine [From SEROQUEL] Allergy (Intermediate, Verified 01/18/24 15:42) PALPITATIONS seafood Allergy (Intermediate, Verified 01/18/24 15:42) redness/itching tomato Allergy (Intermediate, Verified 01/18/24 15:42) Blister trazodone [TRAZODONE] Allergy (Intermediate, Verified 01/18/24 15:42) GI Upset, HEART RACING, palpitations pineapple Allergy (Unknown, Verified 01/18/24 15:42) Unknown prednisone [PREDNISONE] Adverse Reaction (Intermediate, Verified 01/18/24 15:42) HEART RACES HPI HPI N/P left wrist pain/tendonitis : Details: Romaine is a 43 year old right hand dominant Indonesian speaking Diabetic woman who presents with complaints of left wrist pain. She complains of pain in the volar aspect of her left wrist. Her pain is worse with pinching, gripping, or heavy lifting activities. She says she often drops objects due to her pain & weakness. She also complains of numbness in her fingers, intermittent, but daily. She denies any locking or catching. She denies any prior treatment options. [facility] Medical History Transaminitis GERD (gastroesophageal reflux disease) Anxiety Migraines Fatty liver Elevated cholesterol Asthma Vitamin D deficiency HLD (hyperlipidemia) HTN (hypertension) T2DM (type 2 diabetes mellitus) Diabetes mellitus Surgical History History of surgical removal of skin lesion (08/27/22) H/O lithotripsy History of local excision of skin lesion History of hysterectomy (~2011) Family History Father Heart disease Mother No problems noted. Social History Alcohol intake: never Patient Tobacco Use Status: Never used Tobacco Second Hand Smoke Exposure: No Review of Systems Const All systems reviewed & are unremarkable except as noted in HPI and below Physical Exam Const General: cooperative, healthy appearing and no acute distress Orientation/consciousness: patient oriented x3 HEENT Head: Yes normocephalic and Yes atraumatic Eyes EOM: EOMs intact bilaterally Resp Effort & Inspection: normal respiratory effort and able to speak in complete sentences Cardio Jugular venous distension: no JVD Skin General skin exam: turgor normal Rashes: no rashes Neuro General: patient oriented x3 Extrem Other: Evaluation of Left Upper Extremity: The patient is alert, oriented, and in no acute distress Neuro: Median, Ulnar, Radial nerves motor and sensory intact and sensation is normal to the tips of all digits Vascular: Cap refill brisk ROM: She can make a fist & extend all her digits No locking or catching Skin: No lacerations or abrasions. General: No Ecchymosis. No Erythema or evidence of infection. More tender over the volar aspect of the distal forearm, and directly over the carpal tunnel Most Tender over the 1st dorsal compartment Positive Ricardo test on the left Negative Ricardo test on the right Psych Appearance: grossly normal Affect: normal affect Attitude: cooperative Office Procedures Fracture Care Details: No fracture, injection Fracture Billing Code: Fracture Billing Code Assessment & Plan Assessment & Plan (1) T2DM (type 2 diabetes mellitus): Code(s): E11.9 - Type 2 diabetes mellitus without complications Category: Medical Qualifiers: Diabetes mellitus complication status: with hyperglycemia Diabetes mellitus [facility] insulin use: without terminal block assembler use Qualified Code(s): E11.65 - Type 2 diabetes mellitus with hyperglycemia (2) De Quervain's tenosynovitis, left: Code(s): M65.4 - Radial styloid tenosynovitis [de Quervain] Category: Medical (3) Numbness and tingling in left hand: Code(s): R20.0 - Anesthesia of skin; R20.2 - Paresthesia of skin Category: Medical (4) Left wrist pain: Code(s): M25.532 - Pain in left wrist Category: Medical Plan Assessment & Plan: 1. Left De Quervain's tenosynovitis Positive Ricardo test I educated her about this condition I discussed operative and non-operative treatment options The patient would like to proceed with an injection I discussed activity modification, they should limit or avoid any heavy or repetitive pinching or gripping activities She was fitted for a comfort cool brace to wear with daily activities. Injection #1: The risks and benefits of a steroid injection including but not limited to risk of damage to blood vessels, nerves, tendons, infection, skin bleaching, failure to improve symptoms, increased pain, and possible need for further injections or other intervention were discussed with the patient and the patient wishes to proceed with the steroid injection. Once consent was obtained, I sterilely prepped the area over the 1st dorsal compartment of the Left thumb. I then injected the 1st dorsal compartment with a combination of 1 mL of dexamethasone (4mg/ml), and 1% lidocaine. The patient tolerated the procedure well with no complications and good resolution of their symptoms prior to leaving clinic. If the patient continues to have pain 6-8 weeks following this injection, they may call to schedule appointment to discuss alternative treatment options She will follow up prn 2. Left more generalized volar sided wrist pain Over the volar distal forearm and the carpal tunnel 3. Left hand numbness In the median nerve distribution, intermittent but daily Pain over the median nerve distribution at the carpal tunnel I educated her about carpal tunnel syndrome I ordered a NCS to assess for peripheral nerve compression She will follow up when completed for review. Scribed for Christi Santiago MD by Donald Salazar, medical terminologist, on 01/18/24 at 4:25 PM, EST. Orders: Orders NE nerve conduction velocity Today R20.0 - Anesthesia of skin, R20.2 - Paresthesia of skin Coding Level of Care Code New Pt Level 4 (86357) Diagnoses Type 2 diabetes mellitus with hyperglycemia, without long-term current use of insulin E11.65 Diabetes mellitus complication status: with hyperglycemia Diabetes mellitus [facility] insulin use: without [facility] use De Quervain's tenosynovitis, left M65.4 Numbness and tingling in left hand R20.0; R20.2 Left wrist pain M25.532 CPT Codes Fracture Care - Fracture Billing Code: Fracture Billing Code ([id number])
== END 2024-01-18 16:55 | disposition home or self-care (01) ==
PROVIDERS: PCP Nurse Practitioner Family; Visit Provider Orthopaedic Surgery
DX: M65.4 Radial styloid tenosynovitis [de Quervain] (principal); E11.65 Type 2 diabetes mellitus with hyperglycemia; R20.0 Anesthesia of skin; R20.2 Paresthesia of skin; M25.532 Pain in left wrist
CPT/HCPCS: 20550; 99204

== ENCOUNTER 2024-01-26 11:49 | Outpatient (REF) | payer MEDICAID, SELFPAY ==
--- NOTE | 2024-01-26 12:04 | EMG_ITS ---
Chief complaint: Right wrist pain Reason for referral: Evaluate for Carpal Tunnel Syndrome Referred by: Dr. Santiago Procedure done: Right upper extremity NCS/EMG Precautions and/or limitations: None The limb temperature was monitored continuously and remained between 32-36 degrees C during the performance of the NCS. Nerve Conduction Studies Anti Sensory Summary Table ?Stim Site NR Onset (ms) Norm Onset (ms) Peak (ms) Norm Peak (ms) O-P Amp (?V) Norm O-P Amp Site1 Site2 Delta-0 (ms) Dist (cm) Elijah (m/s) Norm Elijah (m/s) Left Median Anti Sensory (2nd Digit) Wrist ? 2.0 2.8 <3.6 93.9 >10 Wrist 2nd Digit 2.0 14.0 70 Left Ulnar Anti Sensory (5th Digit) Wrist ? 2.1 2.8 <3.7 26.5 >15.0 Wrist 5th Digit 2.1 14.0 67 Motor Summary Table ?Stim Site NR Onset (ms) Norm Onset (ms) O-P Amp (mV) Norm O-P Amp iAmp (mV) Amp (1st) (%) Site1 Site2 Delta-0 (ms) Dist (cm) Elijah (m/s) Norm Elijah (m/s) Left Median Motor (Abd Poll Brev) Wrist ? 3.0 <3.9 10.6 >4.5 13.5 100.0 Elbow Wrist 3.5 18.0 51 >45 Elbow ? 6.5 9.2 12.0 86.8 Left Ulnar Motor (Abd Dig Minimi) Wrist ? 2.8 <3.0 6.7 >5 7.6 100.0 B Elbow Wrist 2.5 15.5 62 >45 B Elbow ? 5.3 6.4 7.2 95.5 A Elbow B Elbow 1.5 10.0 67 >45 A Elbow ? 6.8 6.8 7.8 101.5 Comparison Summary Table ?Stim Site NR Peak (ms) Norm Peak (ms) P-T Amp (?V) Site1 Site2 Delta-P (ms) Norm Delta (ms) Left Median/Radial Dig I Comparison (Digit 1 - 10cm) Median ? 2.3 <2.9 171.0 Median Radial 0.0 Radial ? 2.3 <2.8 54.5 EMG ?Side Muscle Nerve Root Ins Act Fibs Psw Amp Dur Poly Recrt Int Pat Comment Left 1stDorInt Ulnar C8-T1 Nml Nml Nml Nml Nml 0 Nml Complete Left FlexCarRad Median C6-7 Nml Nml Nml Nml Nml 0 Nml Complete Left Biceps Musculocut C5-6 Nml Nml Nml Nml Nml 0 Nml Complete Left Triceps Radial C6-7-8 Nml Nml Nml Nml Nml 0 Nml Complete Left Deltoid Axillary C5-6 Nml Nml Nml Nml Nml 0 Nml Complete FINDINGS: All motor and sensory nerves tested showed normal latencies, amplitudes and conduction velocities. Concentric needle EMG was performed in selected muscles of the right upper extremity. Study did not reveal signs of electric abnormalities as shown in the table below. IMPRESSION: 1. This is a normal study. 2. There is no electrodiagnostic evidence for median neuropathy, ulnar neuropathy, brachial plexopathy, or cervical radiculopathy. Thank you for your kind referral. Eliana Jaramillo MD, DEEJAY Board Certified, [place] Board of Physical Medicine and Rehabilitation (ABPMR) Board Certified, [place] Board of Electrodiagnostic Medicine (ABEM) CODIN [id number] MTDD
== END 2024-01-26 11:50 | disposition home or self-care (01) ==
LOC: HO.NEURO 11:49
PROVIDERS: PCP Nurse Practitioner Family; Visit Provider Orthopaedic Surgery
DX: R20.2 Paresthesia of skin (principal); R20.0 Anesthesia of skin
CPT/HCPCS: 95886; 95909

== ENCOUNTER → 2024-01-26 11:54 | Outpatient (BNV) | payer MEDICAID, SELFPAY | PROVIDERS: PCP Nurse Practitioner Family; Visit Provider Internal Medicine Cardiovascular Disease | DX: R00.0 Tachycardia, unspecified (principal) | CPT/HCPCS: 93227; 93306 ==

== ENCOUNTER → 2024-01-26 12:04 | Outpatient (BNV) | payer MEDICAID, SELFPAY | PROVIDERS: PCP Nurse Practitioner Family; Visit Provider Physical Medicine & Rehabilitation | DX: M25.532 Pain in left wrist (principal); R20.2 Paresthesia of skin; R20.0 Anesthesia of skin | CPT/HCPCS: 95886; 95909 ==

== ENCOUNTER → 2024-01-26 | Outpatient (REF) | payer MEDICAID, SELFPAY ==
--- NOTE | 2024-01-26 11:54 | HM_ITS ---
Conclusion: 1. Patient was monitored for total period of 1 day and 23 hours 2. Baseline was normal sinus rhythm with average heart rate of 83 beats per minute 3. No significant pauses or arrhythmias noted 4. Patient marked the counter 3 times with no associated symptoms in the diary correlating with sinus tachycardia MTDD
--- NOTE | 2024-01-26 11:54 | CA_ITS ---
Transthoracic Echocardiogram Patient (Last, First, Middle): Sacha Contreras, Gender: Female Date of : 1980 Age: 43 Procedure Date: 01/26/2024 Procedure Type: Transthoracic Echocardiogram Location: OP Height: 152.4 cm Weight: 92.99 kg BSA: 1.89 m2 Heart Rate: bpm BP: 110 / 80 mmHg Weights And Measures Sealer: TO Referring MD: Alfredito Constantino MD Pile Driving Technician: Alfredito Constantino MD Symptoms: I42.9 - Cardiomyopathy, unspecified Study Quality: Fair/declined contrast ECG Rhythm: Sinus Conclusions: - 1. Low normal LV ejection fraction 50-55% 2. Normal cardiac valvular Doppler 3. No gross pericardial effusion Findings Procedure Information The patient declines contrast. Left Ventricle Normal left ventricular cavity size. There is normal left ventricular wall thickness. The left ventricular systolic function is low normal. The visually estimated ejection fraction is between 50-55%. Spectral Doppler is indicative of a normal filling pattern. Right Ventricle Normal right ventricular cavity size and systolic function. Atria The left atrium is normal in size. Interatrial shunt cannot be excluded. The right atrium was not well visualized. Aortic Valve There is mild calcification of the aortic valve. There is no aortic valve stenosis. There is no aortic valve regurgitation. Mitral Valve There is mild anterior mitral leaflet thickening. There is mild anterior mitral annular calcification. There is trace mitral valve regurgitation. There is no mitral valve stenosis. Pulmonic Valve The pulmonic valve is likely normal. There is trace pulmonic valve regurgitation. Tricuspid Valve Likely normal tricuspid valve structure and function. Tricuspid regurgitation envelope is inadequate for calculation of right ventricular systolic pressure. Normal right atrial pressure. Great Vessels All visible segments of the aorta are normal in size. The pulmonary artery was not well visualized. There is no dilatation of the ascending aorta measuring 2.70 cm. Venous The inferior vena cava is normal in size and collapses greater than 50% with inspiration. Pericardium/Pleural There is no evidence of pericardial effusion. Prior Study Comparison No significant change compared to prior study dated: 01/12/2022. Measurements 2D Linear Measurements IVSd: 1.12 0.6-0.9/0.6-1.0 cm LVIDd: 4.58 3.9-5.3/4.2-5.9 cm LVIDd Index: 2.42 2.4-3.2/2.2-3.1 cm/m2 LVIDs: 3.33 2.0-3.6 cm LVPWd: 0.87 0.7-1.1 cm LA Diam: 3.20 2.7-3.8/3.0-4.0 cm LAIDs Index: 1.69 1.5-2.3 cm/m2 LV Mass: 195.16 67-162/88-224 g LV Mass Index: 103.26 43-95/49-115 g/m2 LVOT Diam: 2.00 3.0+(-)1.3 cm Mitral Valve MV Pk E: 0.42 MV PK A: 0.45 MV Decel Time: 211.00 E/A: 1.00 E'Lateral: 9.25 E'Medial: 6.64 E/E' Med: 6.40 E/E' Lat: 4.60 PHT: 62.00 MVA PHT: 3.55 Decel [place]: 2.01 Aortic Valve AoV Pk Elijah: 1.15 AoV Mn Elijah: 0.85 AoV VTI: 0.22 AoV Pk Grad: 5.00 Aov Mn Grad: 3.00 CHIO Cont.VTI: 2.60 LVOT LVOT Pk Elijah: 0.85 LVOT Mn Elijah: 0.60 LVOT VTI: 0.18 LVOT Pk Grad: 3.00 LVOT Mn Grad: 2.00 LVOT Diam: 2.00 LVOT Area: 3.14 Diastolic Function MV Pk E: 0.42 MV Pk A: 0.45 E/A: 1.00 E'Medial: 6.64 E/E' Med: 6.40 E' Laterial: 9.25 E/E' Lat: 4.60 Right Ventricle TAPSE (mm): 18.40 TVS' Elijah: 10.90 Tricuspid Valve RA Press: 3.00 Great Vessels Aorta Sinus of Valsalva: 3.30 2.0-3.[address] [place]: 2.36 1.7-3.4 cm Ao Asc: 2.70 2.1-3.4 cm Updated in Other Vendor System with Status of Final Alfredito Constantino MD electronically signed on 01/27/2024 12:48:23 PM with status of Final
== END ==
LOC: HO.CARD
PROVIDERS: PCP Nurse Practitioner Family; Visit Provider Internal Medicine Cardiovascular Disease
DX: I42.9 Cardiomyopathy, unspecified (principal); R00.2 Palpitations
CPT/HCPCS: 93225; 93306

== ENCOUNTER 2024-02-07 14:07 | Outpatient (REF) | payer MEDICAID, SELFPAY ==
[2024-02-07 16:38] LABS: Creatinine Urine 164.92 mg/dL; Microalbum/Creatinine Ratio Ur 9.7 ug/mg cr (<30)
== END 2024-02-07 14:08 | disposition home or self-care (01) ==
LOC: HO.HHCL 14:07
PROVIDERS: Visit Provider Nurse Practitioner Family
DX: E11.9 Type 2 diabetes mellitus without complications (principal); Z79.4 Long term (current) use of insulin
CPT/HCPCS: 82043; 82570

== ENCOUNTER → 2024-02-08 11:58 | Outpatient (REF) | payer MEDICAID, SELFPAY | LOC: HO.SL 11:58 | PROVIDERS: PCP Nurse Practitioner Family; Visit Provider Internal Medicine Cardiovascular Disease | DX: R06.81 Apnea, not elsewhere classified (principal); R06.83 Snoring | CPT/HCPCS: 95806 ==

== ENCOUNTER → 2024-02-08 13:03 | Outpatient (BNV) | payer MEDICAID, SELFPAY | PROVIDERS: PCP Nurse Practitioner Family; Visit Provider Internal Medicine | DX: R06.83 Snoring (principal) | CPT/HCPCS: 95806 ==

== ENCOUNTER 2024-02-09 11:51 | Emergency (ER) | payer MEDICAID, SELFPAY ==
--- NOTE | ~2024-02-09 | CT_ITS ---
EXAMINATION: CT ANGIOGRAM HEAD CT ANGIOGRAM NECK CLINICAL INFORMATION: Reason for Exam dizziness, headache COMPARISON: None. TECHNIQUE: Initial noncontrast academic success coordinator imaging of the head and neck was performed. Noncontrast head CT was also performed. Test bolus sequences followed by intravenous administration 70 mL of Omnipaque 350. Helical imaging was performed in the axial plane from the aortic arch to the skull vertex. Delayed postcontrast imaging of the head was also performed. The data was processed at the certified hyperbaric technologist workstation for generation of MIP sequences. Angled MIPs and volume rendered reformatted images were also generated at an offline 3D workstation. Stenoses are assessed in accordance with NASCET criteria unless otherwise indicated. DLP: 1954.63 mGy-cm This CT examination was performed using dose optimization techniques as appropriate, variously including the following: *Automated exposure control. *Adjustment of mA and/or kV according to patient size (this includes techniques or standardized protocols for targeted exams where dose is matched to indication/reason for exam; i.e. extremities or head). *Use of iterative reconstruction technique. FINDINGS: CT Head: There is no evidence of acute intracranial hemorrhage or edematous territorial infarction. There is no abnormal attenuation within the brain parenchyma. Montgomery-white matter differentiation is preserved. The ventricles are normal in size and configuration. No evidence for obstructive hydrocephalus. No abnormal mass effect or midline shift. No extra-axial fluid collections. No pathologic intra-axial enhancement or regional oligemia. No acute soft tissue or osseous abnormalities. The mastoid air cells and paranasal sinuses are clear. CT Neck: The thyroid gland and remaining cervical soft tissues are within normal limits. Mild degenerative changes of the cervical spine including degenerative disc disease at C5-C6. There are bilateral cervical ribs, right larger than left, with the right cervical rib articulating with the anterolateral first rib. CT Upper Chest: The visualized lung apices and upper mediastinum are within normal limits. Neck CTA: Aortic Arch: Normal contour and caliber. Classic 3 vessel branching pattern of the aortic arch. Great Vessel Origins: No significant stenosis of the branch origins. Right Common Carotid Artery: No focal stenosis or occlusion. Cervical Right Internal Carotid Artery: Normal opacification without focal stenosis or occlusion. Left Common Carotid Artery: No focal stenosis or occlusion. Cervical Left Internal Carotid Artery: Normal opacification without focal stenosis or occlusion. Cervical Right Vertebral Artery: No focal stenosis or occlusion. Cervical Left Vertebral Artery: No focal stenosis or occlusion. Brain CTA: CTA of the head is somewhat technically limited secondary to extensive venous contamination. Intracranial Internal Carotid Arteries: No focal stenosis or occlusion. Right Anterior Cerebral Artery: Normal A1 segment. Normal opacification of the distal SUZANNE segments. Left Anterior Cerebral Artery: The A1 segment is diminutive. Normal opacification of the distal SUZANNE segments. Anterior Communicating Artery: Normal. Right Middle Cerebral Artery: Normal M1 segment of the MCA without focal stenosis or occlusion. Normal arborization of the distal segments. Left Middle Cerebral Artery: Normal M1 segment of the MCA without focal stenosis or occlusion. Normal arborization of the distal segments. Right Vertebral Artery: Normal V4 segment. Left Vertebral Artery: Normal V4 segment. Basilar Artery: Normal without focal stenosis or occlusion. Normal appearance of the proximal superior cerebellar arteries. Right Posterior Cerebral Artery: Normal P1 segment. Normal opacification of the distal SURVEY COMPILER segments. Left Posterior Cerebral Artery: Normal P1 segment. Normal opacification of the distal SURVEY COMPILER segments. Normal opacification of the superior sagittal, straight, transverse, and sigmoid sinuses. CT/CT angio head neck IMPRESSION: 1. No acute intracranial abnormality including hemorrhage, mass effect, hydrocephalus, or acute territorial edematous infarction. 2. No arterial high grade stenosis or large vessel occlusion in the head or neck.
[2024-02-09 12:09] VITALS: BP 132/81; PULSE 91; RESP 18; TEMP 36.5; O2SAT 99; BMI 37.7
--- NOTE | 2024-02-09 12:11 | ED.GENADULT ---
HPI - General Adult General Chief complaint: Headache Stated complaint: migraine , other symptoms Time Seen by Provider: 02/09/24 13:04 Source: patient and site interpreter (all interactions with this patient were facilitated via an [facility] diplomatic interpreter/translator) Mode of arrival: ambulatory Limitations: language barrier (all interactions with this patient were facilitated via an [facility] diplomatic interpreter/translator) History of Present Illness ED Provider: Vero Oliver PA-C HPI narrative: Patient is a 43 year old assigned female at with a history of cardiomyopathy, HLD, HTN, migraines, and DM presenting to the emergency department today with 3 days of weakness, blurry vision, and headache. Patient states that over the last 3 days she has had a headache, dizziness, blurry vision, and seeing spots. Patient states that she is use to having migraines but this feels different. Patient states that she is not able to walk a straight line. Patient states that it feels like she is spinning rather than the room spinning. Patient denies any lightheadedness, abdominal pain, nausea, vomiting, fever, chills, blurry vision, double vision, loss of vision, chest pain, difficulty breathing, shortness of breath, back pain, night sweats, pain with urination, increased urinary frequency, increased urinary urgency, blood in her urine or stool, syncope or a near syncopal episode, recent trauma or falls, bowel incontinence, bladder incontinence, or any other complaints at this time. Onset (ago): day(s) (3) Relieving factors: none Exacerbating factors: none Associated symptoms: denies other symptoms Treatments prior to arrival: none Related Data Home Medications ?Medication ?Instructions ?Recorded ?Confirmed albuterol sulfate 90 mcg/actuation 2 puff inhalation Q4-6H PRN 10/01/20 01/18/24 aerosol inhaler Shortness Of Breath albuterol sulfate 2.5 mg/3 mL 2.5 mg inhalation TID PRN wheezing 04/15/21 01/18/24 (0.083 %) solution for nebulization buspirone 10 mg tablet 10 mg PO TID 04/15/21 01/18/24 docusate sodium 100 mg capsule 100 mg PO BID PRN Constipation 04/15/21 01/18/24 magnesium oxide 400 mg (241.3 mg 200 mg PO DAILY 08/24/21 05/28/24 magnesium) tablet pantoprazole 40 mg tablet,delayed 40 mg PO DAILY 04/15/21 01/18/24 release sennosides 8.6 mg tablet (Senna 17.2 mg PO DAILY PRN constipation 04/15/21 01/18/24 Laxative) terconazole 0.4 % vaginal cream 1 appful vaginal BEDTIME 04/15/21 01/18/24 vitamin A 3,000 mcg (10,000 unit) 1 cap PO DAILY 04/15/21 01/18/24 capsule escitalopram oxalate 20 mg tablet 20 mg PO DAILY 12/16/21 01/18/24 sumatriptan succinate 50 mg tablet 50 mg PO ONCE migraine 01/07/22 01/18/24 clonazepam 0.5 mg tablet 0.5 mg PO DAILY PRN anxiety 02/03/22 01/18/24 Previous Rx's ?Medication ?Instructions ?Recorded blood-glucose meter (FreeStyle #1 ea 07/07/20 Lite Meter kit) ketorolac 10 mg tablet 10 mg PO Q8H PRN pain #10 tabs 02/23/21 tramadol 50 mg tablet 50 mg PO Q8H PRN pain (scale score 04/15/21 1-3) #14 tabs lisinopril 5 mg tablet 5 mg PO DAILY #30 tabs 02/18/22 cholecalciferol (vitamin D3) 50 50 mcg PO DAILY 30 days #30 caps 03/10/22 mcg (2,000 unit) capsule metformin 1,000 mg tablet 1,000 mg PO BID 30 days #60 tabs 03/10/22 cyclobenzaprine 10 mg tablet 10 mg PO TID PRN muscle spasm #10 07/13/22 tabs ibuprofen 600 mg tablet 600 mg PO Q6H PRN pain #30 tabs 07/13/22 blood sugar diagnostic (FreeStyle #100 ea 02/05/23 Lite Strips) empagliflozin 25 mg tablet 25 mg PO DAILY 30 days #30 tabs 03/10/23 (Jardiance) lancets 33 gauge (TRUEplus Lancets) 1 gauge miscellaneous QID for 03/10/23 diabetes mellitus 30 days #100 ea pyridoxine (vitamin B6) 100 mg 100 mg PO DAILY 90 days #90 tabs 03/10/23 tablet metoprolol tartrate 25 mg tablet 12.5 mg (1/2 x 25 mg) PO BID #30 06/25/23 tabs acetaminophen 325 mg capsule 650 mg (2 x 325 mg) PO Q6H PRN 07/20/23 (Tylenol) pain #30 caps liraglutide 0.6 mg/0.1 mL (18 mg/3 1.8 mg (0.3 mL) subcut Q24H 30 08/05/23 mL) subcutaneous pen injector days #9 mL (Victoza 3-Dmitry) atorvastatin 40 mg tablet 40 mg PO DAILY #90 tabs 09/03/23 naproxen 375 mg tablet 375 mg PO BID PRN pain #14 tabs 11/22/23 ondansetron 8 mg disintegrating 8 mg PO Q8-12H PRN nausea and 11/22/23 tablet vomiting 5 days #15 tabs tamsulosin 0.4 mg capsule (Flomax) 0.4 mg PO BEDTIME #14 caps 11/22/23 pen needle, diabetic 32 gauge x #100 ea 11/23/2308/26 (Novofine 32) ciprofloxacin HCl 500 mg tablet 500 mg PO BID 5 days #10 tabs 12/27/23 Allergies Allergy/AdvReac Type Severity Reaction Status Date / Time diphenhydramine Allergy Intermediate HALLUCINATI Verified 02/09/24 12:12 [From BENADRYL] ONS morphine [MORPHINE] Allergy Intermediate DIAPHORESIS; Verified 02/09/24 12:12 TACHYCARDIA, palpitations, sweating, tingling of hands and face quetiapine [From SEROQUEL] Allergy Intermediate PALPITATION Verified 02/09/24 12:12 S seafood Allergy Intermediate redness/itc Verified 02/09/24 12:12 akhil tomato Allergy Intermediate Blister Verified 02/09/24 12:12 trazodone [TRAZODONE] Allergy Intermediate GI Upset, Verified 02/09/24 12:12 HEART RACING, palpitations pineapple Allergy Unknown Unknown Verified 02/09/24 12:12 prednisone [PREDNISONE] AdvReac Intermediate HEART RACES Verified 02/09/24 12:12 Review of Systems Constitutional: Constitutional: Reports no additional constitutional complaints, Denies chills, Denies fever(s), Reports headache(s) and Denies night sweats Eyes: Eyes: Reports no additional eye complaints, Reports blurry vision, Denies change in vision, Denies diplopia, Denies eye discharge, Denies loss of vision, Denies eye pain and Reports spots in vision ENT: Reports dizziness and Reports headache(s) Cardiovascular: Cardiovascular: Reports no additional cardiovascular complaints, Denies chest pain, Denies lightheadedness, Denies Loss of Consciousness and Denies dyspnea Respiratory: Respiratory: Reports no additional respiratory complaints and Denies dyspnea Gastrointestinal: Gastrointestinal: Reports no additional gastrointestinal complaints, Denies abdominal pain, Denies melena, Denies hematochezia, Denies change in bowel habits and Denies change in stool character Genitourinary: Genitourinary: Denies hematuria, Denies urinary frequency, Denies dysuria, Denies urinary incontinence, Denies urinary hesitancy and Denies urinary urgency Musculoskeletal: Musculoskeletal: Reports no additional musculoskeletal complaints, Denies numbness and Denies tingling Neurologic: Reports dizziness, Reports headache(s), Denies loss of vision, Denies numbness and Denies tingling Psychiatric: Psychiatric: Reports no additional psychiatric complaints Endocrine: Endocrine: Reports no additional endocrine complaints Hematologic/Lymphatic: Hematologic/Lymphatic: Reports no additional hematologic/lymphatic complaints Allergic/Immunologic: Allergic/Immunologic: Reports no additional allergic/immunologic complaints [facility] Past Medical History Attestation statement: The following information was validated with the patient. Source: old records reviewed and nursing notes reviewed Medical History Transaminitis GERD (gastroesophageal reflux disease) Anxiety Migraines Fatty liver Elevated cholesterol Asthma Vitamin D deficiency HLD (hyperlipidemia) HTN (hypertension) T2DM (type 2 diabetes mellitus) Diabetes mellitus Surgical History History of surgical removal of skin lesion (08/27/22) H/O lithotripsy History of local excision of skin lesion History of hysterectomy (~2011) Family History Family History Father Heart disease Mother No problems noted. Social History Social History Alcohol intake: never Patient Tobacco Use Status: Never used Tobacco Smoked in Last 30 Days: No Second Hand Smoke Exposure: No Use of substances other than those prescribed or required for medical reasons: No Advance Directives: No Advance Directives Information Provided: No Physical Exam ED Vital Signs: Vital Signs - 24 hr 02/09/24 12:09 02/09/24 16:29 Temperature 97.7 F 98.2 F Pulse Rate 91 67 Respiratory Rate 18 16 Blood Pressure 132/81 123/83 Pulse Oximetry 99 Oxygen Delivery Method Room Air Room Air BMI result Body Mass Index 37.7 Const General: cooperative, no acute distress, alert and awake Nutritional Appearance: well nourished Orientation/consciousness: patient oriented x3 Limitations: no limitations HENMT Head: Yes normal to inspection and Yes atraumatic Ears: hearing grossly normal bilaterally and external ears normal General nose exam: Normal external nose present, no nasal discharge noted and no epistaxis Face and sinus: Yes normal facial exam, No abrasion and No laceration Mouth: Normal oral and palatal mucosa present, no drooling and no muffled voice Eyes General: appearance normal, both eyes and all related structures Periorbital: periorbital findings normal Eyelids: Yes eyelids normal Conjunctivae: conjunctivae normal Pupils: Equal, round and reactive pupils present EOM: EOMs intact bilaterally Neck Neck: Yes normal visual inspection, Yes full ROM and Yes no lymphadenopathy Chest Chest palpation & inspection: normal inspection of the chest Resp Effort & Inspection: normal respiratory effort and able to speak in complete sentences GI Inspection: Yes normal to inspection Neuro General: patient oriented x3 and moves all extremities Cranial nerves: Yes Equal, round and reactive pupils present Cognition (Neuro): normal cognition Motor exam (neuro): 5/5 motor strength present throughout Sensory Exam: Normal double simultaneous stimulation for sensation Coordination: [id number] test normal Extrem General: Yes normal to inspection, Yes full ROM and Yes capillary refill normal Psych Appearance: grossly normal Mental Status: mental status grossly normal Affect: normal affect Attitude: cooperative Thought process: Normal thought process present Thought content: Normal thought content present Insight: Good insight present (Psych) NIH Stroke Scale Internal: Initial- Upon Arrival Time: 12:11 Level of Consciousness: Alert Level of Consciousness Questions: Answers both questions correctly Level of Consciousness Commands: Performs both tasks correctly Best Gaze: Normal Visual: No visual loss Facial Palsy: Normal Motor Arm (Right): No drift Motor Arm (Left): No drift Motor Leg (Right): No drift Motor Leg (Left): No drift Limb Ataxia: Absent Sensory: Normal Best Language: No aphasia Dysarthia: Normal Extinction and Inattention: No abnormality Score: 0 Course Course Course Narrative: This is an RME done by THERESE Meyer: Additional HPI, ROS, PE not included below will be deferred to primary provider. 43-year-old female history of diabetes, migraines, require VNA, nephrolithiasis, cardiomyopathy, transaminitis, hypertension, hyperlipidemia presents with migraine, blurred vision, overall just feeling unwell. She reports this started 3 days ago. Feels like her typical migraine. She does not feel right however. Her sugars at home have been in the 150s. Appearance: Alert.? Oriented X3.? No acute cardiopulmonary distress distress.? Head: Normocephalic, atraumatic, no step-offs or deformities Neck: Normal inspection.? Neck supple.? CVS: Pulses normal.? Respiratory: No respiratory distress.? Skin: ? Normal skin color. Extremities: 5/5 strength to bilateral upper and lower extremities Back: No midline tenderness, no C-spine tenderness, full range of motion, No CVA tenderness bilaterally Neuro: Oriented X 3.? No motor deficit.? No sensory deficit. Medications Administered Discontinued Medications Generic Name Dose Route Start Last Admin Trade Name Freq PRN Reason Stop Dose Admin Sodium Chloride 1,000 mls @ 999 mls/hr 02/09/24 13:15 02/09/24 16:10 Ns IV 02/09/24 14:15 Infused .Q1H1M GERMÁN Infusion Iohexol 100 ml 02/09/24 15:21 02/09/24 15:21 Iohexol 350 Mg/Ml 100 Ml Infus..Btl IV 02/09/24 15:22 70 ml ONCE ONE Administration Ketorolac Tromethamine 15 mg 02/09/24 13:05 02/09/24 13:33 Ketorolac Tromethamine 15 Mg/Ml Vial IVPUSH 02/09/24 13:06 15 mg ONCE ONE Administration Ondansetron HCl 4 mg 02/09/24 13:05 02/09/24 13:33 Ondansetron Hcl 4 Mg/2 Ml Vial IVPUSH 02/09/24 13:06 4 mg ONCE ONE Administration Medical Decision Making Medical Decision Making [facility] Narrative: Patient is a 43 year old assigned female at with a history of cardiomyopathy, HLD, HTN, migraines, and DM presenting to the emergency department today with a headache and dizziness. Patient's physical exam was unremarkable. Patient's blood work was unremarkable. Patient's head and neck CT/CTA showed no acute process. I explained my physical exam findings as well as all test results to the patient. I answered all questions asked by the patient. Patient received IV fluids and toradol which she stated helped her symptoms significantly. Patient was able to ambulate appropriately in the department without feeling as though she was falling over or leaning. I stressed the importance of the patient taking her medication as prescribed. I stressed the importance of the patient following up with her primary care provider. I stressed the importance of the patient returning to the emergency department immediately if her symptoms were to worsen or if she were to develop any dizziness, shortness of breath, difficulty breathing, chest pain, blurry vision, loss of vision, nausea, vomiting, abdominal pain, fever, chills, back pain, or any other complaints. Patient verbalized agreement and understanding with this treatment plan and discharge. Differential Diagnosis Differential Diagnoses: The differential diagnosis associated with the presentation includes Migraine Posterior stroke TIA Complex migraine Admission/Observation Consideration of admission/observation: Escalation of care including admission/observation considered Patient would have been admitted to the hospital had her work up had any findings where hospital admission was appropriate and her clinical presentation warranted hospital admission. Lab Data [facility] Lab Attestation statement: I reviewed the patient's lab results. My interpretation of these results are in the [facility] Rationale portion of this note. 02/09/24 13:31 02/09/24 13:31 Labs: Lab Results 02/09/24 Range/Units 13:31 WBC 7.3 (4.8-10.8) X10*3/uL RBC 4.73 (4.20-5.50) X10*6/uL Hgb 12.9 (12.0-16.0) g/dl Hct 39.8 (37.0-47.0) % MCV 84.1 (80.0-98.0) fL MCH 27.3 (27.0-33.0) pg MCHC 32.4 (31.0-35.0) g/dl RDW 13.6 (11.0-16.0) % Plt Count 268 (160-400) X10*3/uL MPV 10.0 (9.4-12.3) fL Immature Gran % (Auto) 0.1 (0.0-0.4) % Neut % (Auto) 62.2 (45-73) % Lymph % (Auto) 30.4 (20-40) % Maverick % (Auto) 5.1 (2-11) % Eos % (Auto) 1.9 (0-4) % Baso % (Auto) 0.3 (0-2) % Lymph # (Auto) 2.2 (1.2-4.9) X10*3/uL Maverick # (Auto) 0.4 (0.1-1.2) X10*3/uL Eos # (Auto) 0.1 (0.0-0.4) X10*3/uL Baso # (Auto) 0.0 (0.0-0.2) X10*3/uL Abs Immat Gran (auto) 0.01 (0.00-0.03) X10*3/uL Absolute Neuts (auto) 4.5 (2.0-8.3) x10*3/uL Absolute Nucleated RBC 0.000 (0.0-0.012) X10*3/uL Nucleated RBC % (auto) 0.0 (0.0-0.2) /100WBC Sodium 143 (135-145) mmol/L Potassium 3.3 (3.3-5.1) mmol/L Chloride 109 H (96-108) mmol/L Carbon Dioxide 26 (22-29) mmol/L Anion Gap 11 L (12-20) BUN 7 L (9-16) mg/dL Creatinine 0.74 (0.5-1.4) mg/dL Estim Creat Clear Calc 95.4 Estimated GFR > 60 Random Glucose 143 H (60-115) mg/dL Calcium 9.6 (8.4-10.2) mg/dL Total Bilirubin 0.3 (0.0-1.0) mg/dL AST 33 H (5-31) U/L ALT 30 (0-31) U/L Alkaline Phosphatase 115 (39-117) U/L Total Protein 8.0 (6.5-8.0) g/dL Albumin 4.3 (3.5-5.0) g/dL Independent Interpretation I performed an independent interpretation of an: CT Scan Interpretation: My interpretation is in agreement with the radiologist's impression of these imaging studies. EXAMINATION: CT ANGIOGRAM HEAD CT ANGIOGRAM NECK CLINICAL INFORMATION: Reason for Exam dizziness, headache COMPARISON: None. TECHNIQUE: Initial noncontrast monotype machinist imaging of the head and neck was performed. Noncontrast head CT was also performed. Test bolus sequences followed by intravenous administration 70 mL of Omnipaque 350. Helical imaging was performed in the axial plane from the aortic arch to the skull vertex. Delayed postcontrast imaging of the head was also performed. The data was processed at the certified neurodiagnostic technologist workstation for generation of MIP sequences. Angled MIPs and volume rendered reformatted images were also generated at an offline 3D workstation. Stenoses are assessed in accordance with NASCET criteria unless otherwise indicated. DLP: 1954.63 mGy-cm This CT examination was performed using dose optimization techniques as appropriate, variously including the following: *Automated exposure control. *Adjustment of mA and/or kV according to patient size (this includes techniques or standardized protocols for targeted exams where dose is matched to indication/reason for exam; i.e. extremities or head). *Use of iterative reconstruction technique. FINDINGS: CT Head: There is no evidence of acute intracranial hemorrhage or edematous territorial infarction. There is no abnormal attenuation within the brain parenchyma. Montgomery-white matter differentiation is preserved. The ventricles are normal in size and configuration. No evidence for obstructive hydrocephalus. No abnormal mass effect or midline shift. No extra-axial fluid collections. No pathologic intra-axial enhancement or regional oligemia. No acute soft tissue or osseous abnormalities. The mastoid air cells and paranasal sinuses are clear. CT Neck: The thyroid gland and remaining cervical soft tissues are within normal limits. Mild degenerative changes of the cervical spine including degenerative disc disease at C5-C6. There are bilateral cervical ribs, right larger than left, with the right cervical rib articulating with the anterolateral first rib. CT Upper Chest: The visualized lung apices and upper mediastinum are within normal limits. Neck CTA: Aortic Arch: Normal contour and caliber. Classic 3 vessel branching pattern of the aortic arch. Great Vessel Origins: No significant stenosis of the branch origins. Right Common Carotid Artery: No focal stenosis or occlusion. Cervical Right Internal Carotid Artery: Normal opacification without focal stenosis or occlusion. Left Common Carotid Artery: No focal stenosis or occlusion. Cervical Left Internal Carotid Artery: Normal opacification without focal stenosis or occlusion. Cervical Right Vertebral Artery: No focal stenosis or occlusion. Cervical Left Vertebral Artery: No focal stenosis or occlusion. Brain CTA: CTA of the head is somewhat technically limited secondary to extensive venous contamination. Intracranial Internal Carotid Arteries: No focal stenosis or occlusion. Right Anterior Cerebral Artery: Normal A1 segment. Normal opacification of the distal SUZANNE segments. Left Anterior Cerebral Artery: The A1 segment is diminutive. Normal opacification of the distal SUZANNE segments. Anterior Communicating Artery: Normal. Right Middle Cerebral Artery: Normal M1 segment of the MCA without focal stenosis or occlusion. Normal arborization of the distal segments. Left Middle Cerebral Artery: Normal M1 segment of the MCA without focal stenosis or occlusion. Normal arborization of the distal segments. Right Vertebral Artery: Normal V4 segment. Left Vertebral Artery: Normal V4 segment. Basilar Artery: Normal without focal stenosis or occlusion. Normal appearance of the proximal superior cerebellar arteries. Right Posterior Cerebral Artery: Normal P1 segment. Normal opacification of the distal BUILDING ASSOCIATE segments. Left Posterior Cerebral Artery: Normal P1 segment. Normal opacification of the distal BUILDING ASSOCIATE segments. Normal opacification of the superior sagittal, straight, transverse, and sigmoid sinuses. CT/CT angio head neck IMPRESSION: 1. No acute intracranial abnormality including hemorrhage, mass effect, hydrocephalus, or acute territorial edematous infarction. 2. No arterial high grade stenosis or large vessel occlusion in the head or neck. Dictated By: Siddharth Pineda Signed By: Electronically signed by Sdidharth Pineda 02/09/24 1608 Radiology Impression Discussion of test interpretation with radiology: I have reviewed the radiologist's reading. Chronic Conditions Patient?s care impacted by: Diabetes and Hypertension Critical Care Time Critical Care Time Critical Care Time: Yes Total Critical Care Time: 34 Attestation: I spent 34 minutes of Critical Care Time with this patient. This does not include time spent on separately reported billable procedures. Discharge Plan Discharge Clinical Impression: Migraine Patient Disposition: Home, Self-Care Instructions: Migraine Headache (ED) Additional Instructions: Follow up with your primary care provider. Return to the emergency department immediately if your symptoms worsen or if you develop any dizziness, shortness of breath, difficulty breathing, chest pain, blurry vision, loss of vision, nausea, vomiting, abdominal pain, fever, chills, back pain, or any other complaints. Prescriptions: No Action metformin 1,000 mg tablet 1,000 mg PO BID 30 Days Qty: 60 11RF cholecalciferol (vitamin D3) 50 mcg (2,000 unit) capsule 50 mcg PO DAILY 30 Days Qty: 30 11RF (DME) FreeStyle Lite Strips Strip See Rx Instructions .ROUTE .MEDSUPPLY Qty: 100 11RF Rx Instructions: As directed Test blood glucose 3x daily. Jardiance 25 mg tablet 25 mg PO DAILY 30 Days Qty: 30 11RF lancets [TRUEplus Lancets] 33 gauge misc 1 gauge miscellaneous QID 30 Days Qty: 100 11RF Victoza 3-Dmitry 0.6 mg/0.1 mL (18 mg/3 mL) pen injector 1.8 mg subcut Q24H 30 Days Qty: 9 11RF atorvastatin 40 mg tablet 40 mg PO DAILY Qty: 90 1RF (DME) pen needle, diabetic [Novofine 32] 32 gauge x 1/4 needle See Rx Instructions .ROUTE .COMPLEX Qty: 100 5RF Dose Instruction: USE ONCE DAILY DIRECTED Rx Instructions: USE ONCE DAILY DIRECTED ciprofloxacin HCl 500 mg tablet 500 mg PO BID 5 Days Qty: 10 0RF albuterol sulfate 90 mcg/actuation Hfa Aerosol Inhaler 2 puff INHALATION Q4-6H PRN (Reason: Shortness Of Breath) ketorolac 10 mg tablet 10 mg PO Q8H PRN (Reason: pain) Qty: 10 0RF ibuprofen 600 mg tablet 600 mg PO Q6H PRN (Reason: pain) Qty: 30 0RF cyclobenzaprine 10 mg tablet 10 mg PO TID PRN (Reason: muscle spasm) Qty: 10 0RF metoprolol tartrate 25 mg tablet 12.5 mg PO BID Qty: 30 0RF acetaminophen [Tylenol] 325 mg capsule 650 mg PO Q6H PRN (Reason: pain) Qty: 30 0RF (DME) blood-glucose meter [FreeStyle Lite Meter] Kit See Rx Instructions .ROUTE .MEDSUPPLY Qty: 1 0RF Rx Instructions: As directed terconazole 0.4 % cream 1 appful vaginal BEDTIME pantoprazole 40 mg tablet,delayed release (DR/EC) 40 mg PO DAILY albuterol sulfate 2.5 mg /3 mL (0.083 %) solution for nebulization 2.5 mg inhalation TID PRN (Reason: wheezing) sennosides [Senna Laxative] 8.6 mg tablet 17.2 mg PO DAILY PRN (Reason: constipation) docusate sodium 100 mg capsule 100 mg PO BID PRN (Reason: Constipation) buspirone 10 mg tablet 10 mg PO TID vitamin A 10,000 unit capsule 1 cap PO DAILY magnesium oxide 400 mg (241.3 mg magnesium) tablet 200 mg PO DAILY tramadol 50 mg tablet 50 mg PO Q8H PRN (Reason: pain (scale score 1-3)) Qty: 14 0RF lisinopril 5 mg tablet 5 mg PO DAILY Qty: 30 5RF escitalopram oxalate 20 mg tablet 20 mg PO DAILY sumatriptan succinate 50 mg tablet 50 mg PO ONCE clonazepam 0.5 mg tablet 0.5 mg PO DAILY PRN (Reason: anxiety) pyridoxine (vitamin B6) 100 mg tablet 100 mg PO DAILY 90 Days Qty: 90 3RF tamsulosin [Flomax] 0.4 mg capsule 0.4 mg PO BEDTIME Qty: 14 0RF ondansetron 8 mg tablet,disintegrating 8 mg PO Q8-12H PRN (Reason: nausea and vomiting) 5 Days Qty: 15 0RF naproxen 375 mg tablet 375 mg PO BID PRN (Reason: pain) Qty: 14 0RF Referrals: Radha Shah, CUSTOMS DIRECTOR [Primary Care Provider] - Print Language: Afghan
[2024-02-09] MEDS: Ketorolac Tromethamine 15 MG/ML VIAL IVPUSH (13:33)
[2024-02-09] MEDS: ondansetron HCL 4 MG/2 ML VIAL IVPUSH (13:33)
[2024-02-09 13:34] LABS: MANUAL DIFF FLAG NO
[2024-02-09] MEDS: 0.9 % Sodium Chloride 1,000 ML 999 ML IV (13:34)
[2024-02-09 13:45] LABS: Basophils Percent Auto 0.3 % (0-2); Eosinophils Absolute Auto 0.1 X10*3/uL (0.0-0.4); Eosinophils Percent Auto 1.9 % (0-4); Hematocrit 39.8 % (37.0-47.0); Hemoglobin 12.9 g/dl (12.0-16.0); Imm Gran Abs Auto 0.01 X10*3/uL (0.00-0.03); Imm Gran Pct Auto 0.1 % (0.0-0.4); Lymphocytes Absolute Auto 2.2 X10*3/uL (1.2-4.9); Lymphocytes Percent Auto 30.4 % (20-40); Mean Corpuscular HGB Conc 32.4 g/dl (31.0-35.0); Mean Corpuscular Hemoglobin 27.3 pg (27.0-33.0); Mean Corpuscular Volume 84.1 fL (80.0-98.0); Monocytes Absolute Auto 0.4 X10*3/uL (0.1-1.2); Monocytes Percent Auto 5.1 % (2-11); Neutrophils Absolute Auto 4.5 x10*3/uL (2.0-8.3); Neutrophils Percent Auto 62.2 % (45-73); Platelet Count 268 X10*3/uL (160-400); Red Blood Count 4.73 X10*6/uL (4.20-5.50); Red Cell Distribution Width 13.6 % (11.0-16.0); White Blood Count 7.3 X10*3/uL (4.8-10.8)
[2024-02-09 13:55] LABS: Alanine Aminotransferase 30 U/L (0-31); Albumin Level 4.3 g/dL (3.5-5.0); Alkaline Phosphatase 115 U/L (39-117); Anion Gap 11 (12-20); Aspartate Amino Transferase 33 U/L (5-31); Bilirubin Total 0.3 mg/dL (0.0-1.0); Blood Urea Nitrogen 7 mg/dL (9-16); Calcium 9.6 mg/dL (8.4-10.2); Carbon Dioxide 26 mmol/L (22-29); Chloride 109 mmol/L (96-108); Creatinine Clr Calc Pharmacy 95.4; Estimated Glomerular Filt Rate > 60; Glucose Random 143 mg/dL (60-115); Potassium 3.3 mmol/L (3.3-5.1); Sodium 143 mmol/L (135-145)
[2024-02-09] MEDS: iohexoL 350 MG/ML 100 ML INFUS..BTL IV (15:21)
[2024-02-09 16:29] VITALS: BP 123/83; PULSE 67; RESP 16; TEMP 36.8
[2024-02-09 17:44] VITALS: BP 123/83; PULSE 67; RESP 16; TEMP 36.8
== END 2024-02-09 17:45 | disposition home or self-care (01) ==
PROVIDERS: Physician Assistant; Emergency Provider Emergency Medicine; PCP Nurse Practitioner Family
DX: G43.909 Migraine, unspecified, not intractable, without status migrainosus (principal); H53.8 Other visual disturbances; R11.2 Nausea with vomiting, unspecified; R42 Dizziness and giddiness; M54.2 Cervicalgia; Z79.899 Other long term (current) drug therapy
CPT/HCPCS: 36415; 70496; 70498; 80053; 85025; 96361; 96374; 96375; 99284; J1885; J2405; Q9967

== ENCOUNTER 2024-02-11 11:10 | Outpatient (REF) | payer MEDICAID, SELFPAY | END 2024-02-11 11:11 | disposition home or self-care (01) | LOC: HO.HHCLNP 11:10 | PROVIDERS: Visit Provider Nurse Practitioner Family | DX: R19.7 Diarrhea, unspecified (principal); I10 Essential (primary) hypertension; E78.5 Hyperlipidemia, unspecified; E11.65 Type 2 diabetes mellitus with hyperglycemia | CPT/HCPCS: 82947; 83036; 87177; 87209; 99212 ==

== ENCOUNTER 2024-02-11 14:29 | Outpatient (AMB) | payer MEDICAID, SELFPAY ==
--- NOTE | 2024-02-11 14:33 | MHC.OFFVIS ---
Vital Signs 02/11/24 14:36 Height 5 ft Weight 199 lb 8.293 oz BMI 39.0 BP 112/84 Blood Pressure Location Rt brachial Position Sitting Pulse 96 Pulse Source Pulse Oximeter Intake Visit Reasons: DM/confirmed Intake Note: Patient present today to follow up on Type 2 Diabetes Mellitus. Last seen by Dr. Phelps on 10/19/2023 Last Diabetic Eye exam: Last year Last Podiatry Visit: Does not see a Registered Dental Hygienist Random Glucose: 93 mg/dl HgA1C: 6.4% Metrology Engineer Required: Yes Metrology Engineer Language: Patient Account Analyst Name: Robert, Medical Staff CMI Information Interpreted: non-clinical & clinical Accompanied by: Self / Same As Patient Allergies diphenhydramine [From BENADRYL] Allergy (Intermediate, Verified 02/11/24 14:37) HALLUCINATIONS morphine [MORPHINE] Allergy (Intermediate, Verified 02/11/24 14:37) DIAPHORESIS; TACHYCARDIA, palpitations, sweating, tingling of hands and face quetiapine [From SEROQUEL] Allergy (Intermediate, Verified 02/11/24 14:37) PALPITATIONS seafood Allergy (Intermediate, Verified 02/11/24 14:37) redness/itching tomato Allergy (Intermediate, Verified 02/11/24 14:37) Blister trazodone [TRAZODONE] Allergy (Intermediate, Verified 02/11/24 14:37) GI Upset, HEART RACING, palpitations pineapple Allergy (Unknown, Verified 02/11/24 14:37) Unknown prednisone [PREDNISONE] Adverse Reaction (Intermediate, Verified 02/11/24 14:37) HEART RACES Medication List - Last Reconciled 02/11/24 by Tereza Clay PA-C acetaminophen (Tylenol) 650 mg (2 x 325 mg) PO Q6H PRN albuterol sulfate 90 mcg/actuation 2 puffs inhalation Q4-6H PRN albuterol sulfate 2.5 mg inhalation TID PRN atorvastatin 40 mg PO DAILY blood sugar diagnostic (FreeStyle Lite Strips) As directed Test blood glucose 3x daily. blood-glucose meter (FreeStyle Lite Meter kit) As directed buspirone 10 mg PO TID cholecalciferol (vitamin D3) 50 mcg PO DAILY 30 days ciprofloxacin HCl 500 mg PO BID 5 days clonazepam 0.5 mg PO DAILY PRN cyclobenzaprine 10 mg PO TID PRN docusate sodium 100 mg PO BID PRN empagliflozin (Jardiance) 25 mg PO DAILY 30 days escitalopram oxalate 20 mg PO DAILY ibuprofen 600 mg PO Q6H PRN ketorolac 10 mg PO Q8H PRN lancets (TRUEplus Lancets) 1 gauge miscellaneous QID 30 days lisinopril 5 mg PO DAILY magnesium oxide 200 mg PO DAILY metformin 1,000 mg PO BID 30 days metoprolol tartrate 12.5 mg (1/2 x 25 mg) PO BID naproxen 375 mg PO BID PRN ondansetron 8 mg PO Q8-12H PRN 5 days pantoprazole 40 mg PO DAILY pen needle, diabetic (Novofine 32) USE ONCE DAILY DIRECTED pyridoxine (vitamin B6) 100 mg PO DAILY 90 days sennosides (Senna Laxative) 17.2 mg PO DAILY PRN sumatriptan succinate 50 mg PO ONCE tamsulosin (Flomax) 0.4 mg PO BEDTIME terconazole 0.4% 1 appful vaginal BEDTIME tramadol 50 mg PO Q8H PRN vitamin A 1 cap PO DAILY HPI HPI DM/confirmed: Details: Patient is a 43-year-old female with a significant past medical history of cardiomyopathy, hypertension, hyperlipidemia and type 2 diabetes presenting diabetes. Robert is present today to help with translation. Endo: She saw Dr. Phelps in September. Her diabetes at that point was well controlled. She is currently taking metformin 1000 mg b.i.d., ozempic 0.25 mg q week, Jardiance 25 mg. Her A1c today in the office is 6.4. She is on an BERTHA-inhibitor. Cholesterol is managed with atorvastatin. Follows with Ophthalmology and due for eye exam. no known hx of retinopathy. Does not Follow with Podiatry. -stopped ozempic because it did not control her blood sugars. did not contact for new dose. tolerated well. -in the past tried glipizide but did not tolerate this. CV: Blood pressure today is 112/84. She is on lisinopril 5 mg, Toprol 12.5 mg twice a day. Her cholesterol is controlled on atorvastatin 40 mg concern [facility] Medical History Transaminitis GERD (gastroesophageal reflux disease) Anxiety Migraines Fatty liver Elevated cholesterol Asthma Vitamin D deficiency HLD (hyperlipidemia) HTN (hypertension) T2DM (type 2 diabetes mellitus) Diabetes mellitus Surgical History History of surgical removal of skin lesion (08/27/22) H/O lithotripsy History of local excision of skin lesion History of hysterectomy (~2011) Family History Father Heart disease Mother No problems noted. Social History Alcohol intake: never Patient Tobacco Use Status: Never used Tobacco Second Hand Smoke Exposure: No Physical Exam Vital Signs: BMI result Body Mass Index 39.0 Const Orientation/consciousness: patient oriented x3 Neck Neck: Yes no lymphadenopathy Thyroid: Thyroid normal Carotids: no bruits Resp Auscultation: clear to auscultation bilaterally Cardio Rate: regular rate Rhythm: regular rhythm Heart sounds: S1 normal heart sound present and S2 normal heart sound present Peripheral pulses: dorsalis pedis present Neuro General: patient oriented x3, gait normal and no focal motor deficits Extrem Other: Monofilament sensation intact bilaterally. Vibratory sensation intact bilaterally. Skin intact. General: Yes normal to inspection Results AMB Hemoglobin A1c AMB Hemoglobin A1c 6.4 % Last Edit by TAQUERIA Astorga on 02/11/24 14:56 Results Reviewed Results Reviewed: Laboratory Tests 02/07/24 02/09/24 14:09 13:31 Sodium 143 Potassium 3.3 Chloride 109 H Carbon Dioxide 26 Anion Gap 11 L BUN 7 L Creatinine 0.74 Estim Creat Clear Calc 95.4 Estimated GFR > 60 Random Glucose 143 H AST 33 H ALT 30 Alkaline Phosphatase 115 Urine Creatinine 164.92 Urine Microalbumin 16.0 Microalb/Creat Ratio 9.7 Assessment & Plan Assessment & Plan (1) Controlled type 2 diabetes mellitus: Code(s): E11.9 - Type 2 diabetes mellitus without complications Category: Medical Qualifiers: Diabetes mellitus half-way insulin use: without half-way use Diabetes mellitus complication status: without complication Qualified Code(s): E11.9 - Type 2 diabetes mellitus without complications Plan: Will try Mounjaro. We did discuss that we will start at a low dose and titrate up. One-month follow-up. Continue with the Jardiance and metformin. (2) HTN (hypertension): Code(s): I10 - Essential (primary) hypertension Category: Medical Qualifiers: Hypertension type: unspecified Qualified Code(s): I10 - Essential (primary) hypertension Plan: wnl continue current plan (3) HLD (hyperlipidemia): Code(s): E78.5 - Hyperlipidemia, unspecified Category: Medical Qualifiers: Hyperlipidemia type: unspecified Qualified Code(s): E78.5 - Hyperlipidemia, unspecified Plan: last lfts wnl. overdue for lipids. will order this. Orders: Orders AMB Hemoglobin A1c Today E11.65 - Type 2 diabetes mellitus with hyperglycemia Lipid Panel Today E11.9 - Type 2 diabetes mellitus without complications Thyroid Stimulating Hormone Today E11.9 - Type 2 diabetes mellitus without complications, E78.5 - Hyperlipidemia, unspecified, I10 - Essential (primary) hypertension Comprehensive Industry. Panel Fast Today E11.9 - Type 2 diabetes mellitus without complications Medications: New tirzepatide (Mounjaro) 2.5 mg (0.5 mL) subcut QWEEK 4 weeks 2 mL 0RF Coding Level of Care Code Est Pt Level 4 (21517) Complex EM visit Add On G2211 Diagnoses Controlled type 2 diabetes mellitus without complication, without long-term current use of insulin E11.9 Diabetes mellitus half-way insulin use: without heel seat fitter machine use Diabetes mellitus complication status: without complication Hypertension, unspecified type I10 Hypertension type: unspecified Hyperlipidemia, unspecified hyperlipidemia type E78.5 Hyperlipidemia type: unspecified
[2024-02-11 14:36] VITALS: BP 112/84; PULSE 96; BMI 39.0
[2024-02-11 14:51] LABS: Glucose, Whole Blood 93 mg/dL (60-115)
== END 2024-02-11 15:24 | disposition home or self-care (01) ==
PROVIDERS: PCP Nurse Practitioner Family; Visit Provider Physician Assistant
DX: E11.9 Type 2 diabetes mellitus without complications (principal); I10 Essential (primary) hypertension; E78.5 Hyperlipidemia, unspecified; E11.65 Type 2 diabetes mellitus with hyperglycemia
CPT/HCPCS: 99214

== ENCOUNTER 2024-02-15 09:52 | Outpatient (AMB) | payer MEDICAID, SELFPAY ==
--- NOTE | 2024-02-15 11:21 | MHC.OFFVIS ---
Vital Signs 02/15/24 11:23 Height 5 ft Weight 199 lb BMI 38.9 Intake Visit Reasons: O/V EMG review left hand Intake Note: Sacha is a 43 year old right hand dominant female who presents today for an EMG review of her left hand. EMG done on 01/26/24. Patient reports she is still having pain and she feels like it is getting worse. Allergies diphenhydramine [From BENADRYL] Allergy (Intermediate, Verified 02/15/24 11:24) HALLUCINATIONS morphine [MORPHINE] Allergy (Intermediate, Verified 02/15/24 11:24) DIAPHORESIS; TACHYCARDIA, palpitations, sweating, tingling of hands and face quetiapine [From SEROQUEL] Allergy (Intermediate, Verified 02/15/24 11:24) PALPITATIONS seafood Allergy (Intermediate, Verified 02/15/24 11:24) redness/itching tomato Allergy (Intermediate, Verified 02/15/24 11:24) Blister trazodone [TRAZODONE] Allergy (Intermediate, Verified 02/15/24 11:24) GI Upset, HEART RACING, palpitations pineapple Allergy (Unknown, Verified 02/15/24 11:24) Unknown prednisone [PREDNISONE] Adverse Reaction (Intermediate, Verified 02/15/24 11:24) HEART RACES HPI HPI O/V EMG review left hand : Details: Romaine is a 43 year old right hand dominant Khmer speaking Diabetic woman who returns for a NCS review of her left hand numbness Her chief complaint today is of pain in her thumb & middle finger, as well as volar wrist & forearm. She says her thumb pain extends from the dorsal aspect, down into her volar distal forearm. She says her middle finger pain extends down the volar aspect of her hand into her volar forearm. She reports occasional locking of her middle finger at times. She says this is particularly painful with activities such as doing dishes. She continues to complain of numbness in the fingers of her left hand. Symptoms intermittent, but daily, worse at night She denies any prior treatment options. She is S/P left De Quervain's injection on 01/18/24. She denies any radial-sided wrist pain today and found the injection helpful. She is unemployed and primarily does work around the house. [facility] Medical History Transaminitis GERD (gastroesophageal reflux disease) Anxiety Migraines Fatty liver Elevated cholesterol Asthma Vitamin D deficiency HLD (hyperlipidemia) HTN (hypertension) T2DM (type 2 diabetes mellitus) Diabetes mellitus Surgical History History of surgical removal of skin lesion (08/27/22) H/O lithotripsy History of local excision of skin lesion History of hysterectomy (~2011) Family History Father Heart disease Mother No problems noted. Social History Alcohol intake: never Patient Tobacco Use Status: Never used Tobacco Second Hand Smoke Exposure: No Physical Exam Vital Signs: BMI result Body Mass Index 38.9 Extrem Other: Evaluation of Left Upper Extremity: The patient is alert, oriented, and in no acute distress Neuro: Median, Ulnar, Radial nerves motor and sensory intact and sensation is normal to the tips of all digits Vascular: Cap refill brisk ROM: She can make a fist & extend all her digits She demonstrates her middle finger getting stuck with MCP in extension and her PIP joint at ~40 degrees of flexion No locking or catching seen today in clinic. No tenderness directly over the a1 tyler She demonstrated pain extending from the volar aspect of the middle finger, through the palm and into the volar forearm. This tenderness is along the flexor tendon. Only mildly tender over the basal joint but not more than elsewhere. Tender over the dorsal thumb, extending down & around the volar wrist. Mildly tender over the 1st dorsal compartment Negative Ricardo test on the left Negative Ricardo test on the right Nerve Conduction Study Left-side only IMPRESSION: 1. This is a normal study. 2. There is no electrodiagnostic evidence for median neuropathy, ulnar neuropathy, brachial plexopathy, or cervical radiculopathy. Eliana Jaramillo MD, DEEJAY 01/26/24 Assessment & Plan Assessment & Plan (1) Numbness and tingling in left hand: Code(s): R20.0 - Anesthesia of skin; R20.2 - Paresthesia of skin Category: Medical (2) De Quervain's tenosynovitis, left: Code(s): M65.4 - Radial styloid tenosynovitis [de Quervain] Category: Medical (3) Left wrist pain: Code(s): M25.532 - Pain in left wrist Category: Medical (4) Controlled type 2 diabetes mellitus: Code(s): E11.9 - Type 2 diabetes mellitus without complications Category: Medical Qualifiers: Diabetes mellitus complication status: without complication Diabetes mellitus alf insulin use: without alf use Qualified Code(s): E11.9 - Type 2 diabetes mellitus without complications (5) Pain of left middle finger: Code(s): M79.645 - Pain in left finger(s) (6) Left hand pain: Code(s): M79.642 - Pain in left hand Category: Medical Plan Assessment & Plan: 1. Left middle finger pain Extending into volar forearm No clear evidence of a trigger finger seen today I am not recommending an injection today I ordered OT hand therapy to work on ROM & normalizing hand function She will work on ROM exercises at home She can follow up prn 2. Left hand/wrist pain Extending from the dorsum of the thumb around the base of the thumb, to the volar aspect of the distal forearm Etiology unclear 3. Left hand numbness In the median nerve distribution, intermittent but daily Etiology unclear, her NCS from 01/26/24 was normal with no evidence of peripheral nerve compression or cervical radiculopathy 4. Left De Quervain's tenosynovitis, S/P injection Date of injection: 01/18/24 Negative Ricardo test Somewhat improved today in clinic I discussed activity modification, they should limit or avoid any heavy or repetitive pinching or gripping activities Scribed for Christi Santiago MD by Donald Salazar medical billing and coding specialist, on 02/15/24 at 11:45 AM, EST. Orders: Orders OT Evaluation and Treatment Today M25.532 - Pain in left wrist, M65.4 - Radial styloid tenosynovitis [de Quervain], M79.645 - Pain in left finger(s), R20.0 - Anesthesia of skin, R20.2 - Paresthesia of skin Coding Level of Care Code Est Pt Level 4 (44535) Diagnoses Numbness and tingling in left hand R20.0; R20.2 De Quervain's tenosynovitis, left M65.4 Left wrist pain M25.532 Controlled type 2 diabetes mellitus without complication, without long-term current use of insulin E11.9 Diabetes mellitus complication status: without complication Diabetes mellitus terminal operations manager insulin use: without alf use Pain of left middle finger M79.645 Left hand pain M79.642
[2024-02-15 11:23] VITALS: BMI 38.9
== END 2024-02-15 12:07 | disposition home or self-care (01) ==
PROVIDERS: PCP Nurse Practitioner Family; Visit Provider Orthopaedic Surgery
DX: R20.0 Anesthesia of skin (principal); R20.2 Paresthesia of skin; M65.4 Radial styloid tenosynovitis [de Quervain]; M25.532 Pain in left wrist; E11.9 Type 2 diabetes mellitus without complications; M79.645 Pain in left finger(s); M79.642 Pain in left hand
CPT/HCPCS: 99213

== ENCOUNTER → 2024-02-15 09:52 | Outpatient (BNVA) | payer MEDICAID, SELFPAY | PROVIDERS: PCP Nurse Practitioner Family; Visit Provider Orthopaedic Surgery | DX: R20.0 Anesthesia of skin (principal); R20.2 Paresthesia of skin; M65.4 Radial styloid tenosynovitis [de Quervain]; M25.532 Pain in left wrist; M79.645 Pain in left finger(s); M79.642 Pain in left hand; E11.9 Type 2 diabetes mellitus without complications | CPT/HCPCS: 99212 ==

== ENCOUNTER 2024-02-17 16:21 | Outpatient (REF) | payer MEDICAID, SELFPAY ==
[2024-02-21 12:32] LABS: Alphahydroxymidazolam,GCMS Ur NEGATIVE; Alphahydroxytriazolam, GCMS Ur NEGATIVE; Alprazolam, GCMS Urine NEGATIVE; Aminoclonazepam, GCMS Urine NEGATIVE; Flurazepam Metabolite,GCMS Ur NEGATIVE; Lorazepam GCMS Urine NEGATIVE; Nordiazepam, GCMS Urine NEGATIVE; Oxazepam, GCMS Urine NEGATIVE; Temazepam, GCMS Urine NEGATIVE
== END 2024-02-17 16:22 | disposition home or self-care (01) ==
LOC: HO.HHCLNP 16:21
PROVIDERS: Visit Provider Nurse Practitioner Family
DX: M54.9 Dorsalgia, unspecified (principal); G89.29 Other chronic pain
CPT/HCPCS: 80346

== ENCOUNTER 2024-03-06 09:42 | Outpatient (REF) | payer MEDICAID, SELFPAY ==
[2024-03-06 11:03] LABS: Alanine Aminotransferase 28 U/L (0-31); Albumin Level 4.1 g/dL (3.5-5.0); Alkaline Phosphatase 106 U/L (39-117); Anion Gap 15 (12-20); Aspartate Amino Transferase 32 U/L (5-31); Bilirubin Total 0.3 mg/dL (0.0-1.0); Blood Urea Nitrogen 8 mg/dL (9-16); Calcium 9.3 mg/dL (8.4-10.2); Carbon Dioxide 24 mmol/L (22-29); Chloride 108 mmol/L (96-108); Cholesterol 209 mg/dL (<200); Estimated Glomerular Filt Rate > 60; Glucose Fasting 126 mg/dL (60-99); HDL Cholesterol 41 mg/dL (>40); LDL Cholesterol Calculated 120 mg/dL (<100); Potassium 3.7 mmol/L (3.3-5.1); Sodium 143 mmol/L (135-145); Total Protein 7.5 g/dL (6.5-8.0); Triglycerides 241 mg/dL (<150)
[2024-03-06 11:20] LABS: Thyroid Stimulating Hormone 2.57 uIU/mL (0.32-4.0)
== END 2024-03-06 09:43 | disposition home or self-care (01) ==
LOC: HO.LAB 09:42
PROVIDERS: PCP Nurse Practitioner Family; Visit Provider Physician Assistant
DX: E11.9 Type 2 diabetes mellitus without complications (principal); E78.5 Hyperlipidemia, unspecified; I10 Essential (primary) hypertension
CPT/HCPCS: 36415; 80053; 80061; 84443

== ENCOUNTER 2024-03-08 07:43 | Day surgery (SDC) | payer MEDICAID, SELFPAY ==
[2024-03-06 13:39] VITALS: BMI 38.9
[2024-03-06 14:20] VITALS: BMI 38.9
--- NOTE | 2024-03-07 09:30 | HO.ANESPROP2 ---
Documented by User: Maribel Freeman NP 03/07/24 09:33 HPI - Anesthesia Eval Consult details Narrative: 43yo F for Right Lithotripsy ESW [facility] cardiology visit 12/2023 for palps. EKG, Echo, holter all neg Anesthesia Pre-Procedure Meds Is the patient on any of the following meds?: GLP1/DPP4 and SGLT2 Inhib PMFSH Active Problems Active Problems: All Active Problems Pain of left middle finger (Acute) Left hand pain (Acute) Controlled type 2 diabetes mellitus (Acute) Left wrist pain (Acute) Numbness and tingling in left hand (Acute) De Quervain's tenosynovitis, left (Acute) Bilateral kidney stones (Acute) Palpitations (Acute) Incisional hernia of anterior abdominal wall at trocar puncture site after laparoscopic procedure (Acute) Flank pain (Acute) Right kidney stone (Acute) Skin lesion of breast (Acute) Nephrolithiasis (Acute) Right shoulder strain (Acute) Rotator cuff strain (Acute) Epidermal inclusion cyst (Acute) Impingement syndrome of right shoulder (Acute) Dermatofibroma (Acute) Shoulder pain (Acute) Nevus of face (Acute) Nephrolithiasis (Acute) Hypertrophic scar of upper arm (Acute) Varicose veins of right lower extremity with inflammation (Acute) Chest discomfort (Acute) Abnormal stress ECG with treadmill (Acute) Cardiomyopathy (Acute) Varicose veins of left lower extremity with inflammation (Acute) Right flank pain (Acute) Scar contracture (Acute) Transaminitis (Acute) Vitamin D deficiency (Acute) HLD (hyperlipidemia) (Acute) HTN (hypertension) (Acute) T2DM (type 2 diabetes mellitus) (Acute) Past Medical History Medical History Transaminitis GERD (gastroesophageal reflux disease) Anxiety Migraines Fatty liver Elevated cholesterol Asthma Vitamin D deficiency HLD (hyperlipidemia) HTN (hypertension) T2DM (type 2 diabetes mellitus) Diabetes mellitus Family History Family History Father Heart disease Mother No problems noted. Family history of problems with anesthesia: No Surgical History Surgical History History of surgical removal of skin lesion (08/27/22) H/O lithotripsy History of local excision of skin lesion History of hysterectomy (~2011) History of Problems with Anesthesia: No Social History Social History Are you a primary continuum of care manager to a significant other at home: No Do you presently have visiting nurse or other home services: No Alcohol intake: never Patient Tobacco Use Status: Never used Tobacco Second Hand Smoke Exposure: No Use of substances other than those prescribed or required for medical reasons: No Have you been hit, kicked, punched, or otherwise hurt by someone within the past year? If so, by whom?: No Are you DNR?: No Advance Directives: No Advance Directives Information Provided: Yes Advance Directives on File: No Meds Allergies Allergy/AdvReac Type Severity Reaction Status Date / Time pineapple Allergy Severe tongue Verified 03/08/24 09:11 swelling diphenhydramine Allergy Intermediate HALLUCINATI Verified 03/08/24 09:11 [From BENADRYL] ONS morphine [MORPHINE] Allergy Intermediate DIAPHORESIS; Verified 03/08/24 09:11 TACHYCARDIA, palpitations, sweating, tingling of hands and face quetiapine [From SEROQUEL] Allergy Intermediate PALPITATION Verified 03/08/24 09:11 S seafood Allergy Intermediate redness/itc Verified 03/08/24 09:11 akhil tomato Allergy Intermediate Blister Verified 03/08/24 09:11 trazodone [TRAZODONE] Allergy Intermediate GI Upset, Verified 03/08/24 09:11 HEART RACING, palpitations prednisone [PREDNISONE] AdvReac Intermediate HEART RACES Verified 03/08/24 09:11 Home Medications ?Medication ?Instructions ?Recorded ?Confirmed ?Last Taken ?Type albuterol sulfate 90 mcg/actuation 2 puff inhalation Q4-6H PRN 10/01/20 03/06/24 10/09/20 06:30 History aerosol inhaler Shortness Of Breath albuterol sulfate 2.5 mg/3 mL 2.5 mg inhalation TID PRN wheezing 04/15/21 03/06/24 Unknown History (0.083 %) solution for nebulization buspirone 10 mg tablet 10 mg PO TID 04/15/21 03/06/24 Unknown History docusate sodium 100 mg capsule 100 mg PO BID PRN Constipation 04/15/21 03/06/24 Unknown History magnesium oxide 400 mg (241.3 mg 200 mg PO DAILY 04/15/21 03/06/24 Unknown History magnesium) tablet pantoprazole 40 mg tablet,delayed 40 mg PO DAILY 04/15/21 03/06/24 Unknown History release sennosides 8.6 mg tablet (Senna 17.2 mg PO DAILY PRN constipation 04/15/21 02/11/24 Unknown History Laxative) terconazole 0.4 % vaginal cream 1 appful vaginal BEDTIME 04/15/21 03/06/24 Unknown History vitamin A 3,000 mcg (10,000 unit) 1 cap PO DAILY 04/15/21 03/06/24 Unknown History capsule escitalopram oxalate 20 mg tablet 20 mg PO DAILY 12/16/21 03/06/24 Unknown History sumatriptan succinate 50 mg tablet 50 mg PO ONCE migraine 01/07/22 03/06/24 Unknown History clonazepam 0.5 mg tablet 0.5 mg PO DAILY PRN anxiety 02/03/22 03/06/24 03/08/24 07:00 History Exam Height,Weight and Vital Signs: Height 5 ft Weight 90.265 kg Pertinent Lab Results Pertinent Lab Results: Laboratory Tests 02/09/24 03/06/24 13:31 09:54 WBC 7.3 Hgb 12.9 Hct 39.8 Plt Count 268 Sodium 143 Potassium 3.7 Chloride 108 Carbon Dioxide 24 BUN 8 L Creatinine 0.79 Narrative Narrative: EKG 2023 normal sinus rhythm normal EKG at 87 beats per minute ECHO 2023 Conclusions: - 1. Low normal LV ejection fraction 50-55% 2. Normal cardiac valvular Doppler 3. No gross pericardial effusion Holter 2023 1. Patient was monitored for total period of 1 day and 23 hours 2. Baseline was normal sinus rhythm with average heart rate of 83 beats per minute 3. No significant pauses or arrhythmias noted 4. Patient marked the counter 3 times with no associated symptoms in the diary correlating with sinus tachycardia Assessment and Plan Assessment Anesthesia Assessment: Chart Reviewed Final Anesthetic Review Family History of Problems with Anesthesia: No History of Problems with Anesthesia: No Documented by User: Clinton Robison MD 03/08/24 12:00 [facility] Past Medical History Medical History Transaminitis GERD (gastroesophageal reflux disease) Anxiety Migraines Fatty liver Elevated cholesterol Asthma Vitamin D deficiency HLD (hyperlipidemia) HTN (hypertension) T2DM (type 2 diabetes mellitus) Diabetes mellitus Patient : No Family History Family History Father Heart disease Mother No problems noted. Surgical History Surgical History History of surgical removal of skin lesion (08/27/22) H/O lithotripsy History of local excision of skin lesion History of hysterectomy (~2011) Social History Social History Are you a primary continuum of care manager to a significant other at home: No Do you presently have visiting nurse or other home services: No Alcohol intake: never Patient Tobacco Use Status: Never used Tobacco Second Hand Smoke Exposure: No Use of substances other than those prescribed or required for medical reasons: No Have you been hit, kicked, punched, or otherwise hurt by someone within the past year? If so, by whom?: No Are you DNR?: No Advance Directives: No Advance Directives Information Provided: Yes Advance Directives on File: No Meds Allergies Allergy/AdvReac Type Severity Reaction Status Date / Time pineapple Allergy Severe tongue Verified 03/08/24 09:11 swelling diphenhydramine Allergy Intermediate HALLUCINATI Verified 03/08/24 09:11 [From BENADRYL] ONS morphine [MORPHINE] Allergy Intermediate DIAPHORESIS; Verified 03/08/24 09:11 TACHYCARDIA, palpitations, sweating, tingling of hands and face quetiapine [From SEROQUEL] Allergy Intermediate PALPITATION Verified 03/08/24 09:11 S seafood Allergy Intermediate redness/itc Verified 03/08/24 09:11 akhil tomato Allergy Intermediate Blister Verified 03/08/24 09:11 trazodone [TRAZODONE] Allergy Intermediate GI Upset, Verified 03/08/24 09:11 HEART RACING, palpitations prednisone [PREDNISONE] AdvReac Intermediate HEART RACES Verified 03/08/24 09:11 Home Medications ?Medication ?Instructions ?Recorded ?Confirmed ?Last Taken ?Type albuterol sulfate 90 mcg/actuation 2 puff inhalation Q4-6H PRN 10/01/20 03/06/24 10/09/20 06:30 History aerosol inhaler Shortness Of Breath albuterol sulfate 2.5 mg/3 mL 2.5 mg inhalation TID PRN wheezing 04/15/21 03/06/24 Unknown History (0.083 %) solution for nebulization buspirone 10 mg tablet 10 mg PO TID 04/15/21 03/06/24 Unknown History docusate sodium 100 mg capsule 100 mg PO BID PRN Constipation 04/15/21 03/06/24 Unknown History magnesium oxide 400 mg (241.3 mg 200 mg PO DAILY 04/15/21 03/06/24 Unknown History magnesium) tablet pantoprazole 40 mg tablet,delayed 40 mg PO DAILY 04/15/21 03/06/24 Unknown History release sennosides 8.6 mg tablet (Senna 17.2 mg PO DAILY PRN constipation 04/15/21 02/11/24 Unknown History Laxative) terconazole 0.4 % vaginal cream 1 appful vaginal BEDTIME 04/15/21 03/06/24 Unknown History vitamin A 3,000 mcg (10,000 unit) 1 cap PO DAILY 04/15/21 03/06/24 Unknown History capsule escitalopram oxalate 20 mg tablet 20 mg PO DAILY 12/16/21 03/06/24 Unknown History sumatriptan succinate 50 mg tablet 50 mg PO ONCE migraine 01/07/22 03/06/24 Unknown History clonazepam 0.5 mg tablet 0.5 mg PO DAILY PRN anxiety 02/03/22 03/06/24 03/08/24 07:00 History Exam Airway Mallampati Class: II TM Dist: <=3cm Neck ROM: Full Denture: Upper and Lower Heart: ok. cmop. see above. Lungs: ok Assessment and Plan Assessment Anesthesia Assessment: Anesthesia Plan Discussed Final Anesthetic Review NPO: Yes ASA Class: III Final Preanesthetic Review: No Changes in Pt Med Stat, Meds/Allgs Chart Reviewed, Consent Obtained/Reviewed and Anes Risks/Benef Reviewed Patient Risk: Intermediate Procedure Risk: Low Anesthetic Plan Anesthetic Plan: Agree w/ Assess. and Plan and TIVA Disposition: Standard PACU
[2024-03-08] VITALS (7 sets, daily range): BP systolic 124–140; BP diastolic 73–88; PULSE 72–84; RESP 15–18; TEMP 36.4–36.8; O2SAT 93–98
--- NOTE | ~2024-03-08 | XR_ITS ---
EXAMINATION: XR ABDOMEN KUB CLINICAL INDICATION: Right renal stone. COMPARISON: 12/15/2023 TECHNIQUE: 3 views of the abdomen. FINDINGS: Imaged lung bases are clear. The bowel gas pattern is nonobstructive. Moderate retained stool in the colon. The renal shadows are obscured by overlying bowel contents. XR/XR KUB IMPRESSION: Limited study. The renal shadows are obscured by overlying bowel contents.
--- OUTSIDE RECORDS SUMMARY | 2024-03-08 07:48 | XMS_ITS | Patient Health Record ---
Author Organization [facility] Address [address] [place] [address] Care Team Providers Care Financial Services Associate Name Role Phone Radha Rodriguez Primary Care Provider Jaylan Clancy Unavailable [phone] ALLERGIES Allergen (clinical drug ingredient) Drug/Non Drug Allergy documented on EMR Reaction Allergy Type Onset Date Status quetiapine Quetiapine Fumarate Unknown Drug Allergy Active morphine Morphine Sulfate Unknown Drug Allergy Active diphenhydramine Benadryl Unknown Drug Allergy A ctive sea food (uncoded) Unknown Allergy A ctive trazodone Trazodone HCl Unknown Drug Allergy Act arvin REASON FOR REFERRAL No Information MEDICATIONS Medication SIG (Take, Route, Frequency, Duration) Notes Start Date End Date Status Dicyclomine HCl 10 MG 1-2 Orally 30-60 minutes AC TID for abdominal cramps and diarrhea for 30 day(s) 12/29/2019 Active Baclofen as directed Active Trulicity 0.75 MG/0.5ML as directed Subcutaneous once a week Active Senna 8.6 MG as directed Orally a s directed Active Pantoprazole Sodium 40 MG 1 tablet Orall y Once a day for 30 day(s) 11/18/2020 Active metFORMIN HCl ER 500 MG 1 tablet with ev ening meal Orally twice a day Active Pantoprazole Sodium 40 MG 1 tablet Orall y Once a day for 30 day(s) 05/06/2020 Active DOK 1 capsule as needed Orally Once a day Active Pantoprazole Sodium 40 MG 1 tablet Orall y Once a day 02/03/2018 Active Acetaminophen 325 MG TAKE 2 TABLETS BY M OUTH EVERY 6 HOURS NEEDED Oral for 12 Active Zoloft 50 MG 1 tablet Orally Once a day Active Amitriptyline HCl as directed Orally O nce a day Active Topamax 1 tablet Orally Once a day Active Ibuprofen Not-Taking busPIRone HCl 10 MG TAKE 1 TABLET BY ZENA TH THREE TIMES DAILY Oral for 30 Active Vitamin A 53474 UNIT TAKE 1 CAPSULE BY M OUTH EVERY DAY Oral for 30 Active Pantoprazole Sodium 40 MG 1 tablet Orall y Once a day for 30 day(s) 05/30/2022 Active Pantoprazole Sodium 40 MG 1 tablet Orall y Once a day for 30 day(s) 05/26/2023 Active Pantoprazole Sodium 40 MG 1 tablet Orall y Once a day for 30 day(s) 05/25/2022 Active IMMUNIZATIONS Vaccine Route Administration Date Status Comme nts Influenza Unknown 12/29/2019 Refused SOCIAL HISTORY Sex Assigned At : Social History Observation Description Sex Assigned At Unknown PROBLEMS Problem Type ICD Code Onset Dates Problem Status W/U Status Risk SNOMED Code Notes Problem Epigastric abdominal pain (R10.13) Active confirmed 22379905 Problem Irritable bowel syndrome with diarrhea (K58.0) Active confirmed 071929740 Problem Elevated liver function tests (R79.89) Active confirmed Elevated liver enzymes level (062672649) Problem Fatty liver (K76.0) Active confirmed 19 5147260 Problem Gastroesophageal reflux disease, esophagitis presence not specified (K21.9) Active confirmed 197377935 Problem Abdominal pain, right upper quadrant (R10.11) Active confirmed [id number] Encounters Encounter Location Date Provider Diagnosis [facility] [address] [place] [id number] 01/26/2024 Jaylan Neal [facility] [address] [place] [id number] 05/26/2023 Jaylan Neal [facility] [address] [place] [phone] 01/26/2024 Jaylan Neal PLAN OF TREATMENT Pending Test Test Name Order Date BUN 12/29/2019 CREATININE 12/29/2019 LIVER PROFILE 02/04/2020 LIVER PROFILE 04/09/2020 LIVER PROFILE 12/29/2019 CBC w DIFF 12/29/2019 PROTHROMBIN TIME (PT, INR) 12/29/2019 [id number] (A1A) 12/29/2019 CAROTENE 12/29/2019 CERULOPLASMIN 12/29/2019 MITOCHONDRIAL AB 12/29/2019 SMOOTH MUSCLE ANTIBODIES 12/29/2019 VITAMIN A 12/29/2019 NUC HIDA SCAN 10/19/2017 FLUOR. ANTINUCLEAR AB SCREEN (SERGIO) 03/2020 VITAMIN D 25-OH TOTAL 12/29/2019 Future Test Test Name Order Date UPPER GI ENDOSCOPY 10/19/2017 Next Appt Details Provider Name:Jaylan Neal , 06/20/2024 01:20:00 PM, [address] [facility], [address], [place], [address], Insurance Providers Payer Name Payer Address Payer Phone Subscriber Number Group Number Insured Name Patient Relationship to Insured Coverage Start Date Coverage End Date MEDICAID [place] [address] [place]EL[place] CRUZ [phone] [id number] HARMAN LEUNG Self - patient is the insured MEDICAL (GENERAL) HISTORY Medical History History ICD Code Asthma Denies [place],CVA,renal disease Migraines Anxiety, depression, bipolar disease NIDDM EGD [place] [address] Romero described as basically unremarkable--gastric biopsies were normal--no sig. HH GERD--EGD 11/2017 with me deleon h a small HH. Biopsies neg. for celiac disease and Hpylori Fatty liver-Neg. Hepatitis B and C studies in 2019, normal iron studies, negative abdominal ultrasound in 2019; negative autoimmune studies, normal ceruloplasmin, and normal alpha-1 antitrypsin level as well IBS-In 2018 she had a negati ve gallbladder ultrasound, negative workup for celiac disease as above, normal HIDA scan with CCK. Low Vit A, Carotene, and Vit D levels in 06/2019 Normal quantitative fecal fa t test in 07/2019; normal B12 and Folate levels in 06/2019 Normal TSH in 04/[address] of pancreas and abdomen in 04/24 018 Kidney stone-ESWL 09/2020--CT scan was ne gative except for the kidney stone Surgical History Surgery Date(Month/Year) LIANA Varicose veins in legs
--- OUTSIDE RECORDS SUMMARY | 2024-03-08 07:49 | XMS_ITS | Continuity of Care Document ---
Author Organization [facility] Address [address] [place] [address] [address] [place] [address]- Care Team Providers Care Laundry Marker Supervisor Name Role Phone Jaquelin Rivera MD Primary Care Physician [phone] Encounter [facility] Date(s): 04/03/22 - 06/06/22 [facility] [address] [place] [address]- Attending Physician: Clayton Mata Referring Physician: Jaquelin Rivera MD Allergies, Adverse Reactions, Alerts Substance Reaction Severity Status morphine heart palpitations Active Benadryl heart palpitations Active traZODone severe anxiety Active SEROquel numbing of hands Active Medications albuterol CFC free 90 mcg/inh inhalation aerosol 2 puffs, Inhalation, 4 times a day, 0 Refills, Maintenance, 06/20/15 9:35:28 Start Date: 06/20/15 Status: Ordered clonazepam 1 mg oral tablet 0.5 tablet = 0.5 mg, By Mouth, 3 times a day, 0 Refills, Maintenance, 04/04/15 13:03:33 Start Date: 04/04/15 Status: Ordered Colace sodium 100 mg oral capsule 1 capsule = 100 mg, By Mouth, 2 times a day, PRN for constipation, with plenty of water, # 40 tablet, 0 Refills, Maintenance, 07/02/15 13:03:56, Capsule Start Date: 07/02/15 Status: Ordered Compression- Lower Extremity (Knee High) See Instructions, # 3 pair, Refills 2, Tot. Refills 2, Maintenance, Varicose veins with pain and swelling, 09/25/16 10:57:57, Compound Start Date: 09/25/16 Status: Ordered lansoprazole 30 mg oral enteric coated capsule 1 capsule = 30 mg, By Mouth, Daily, 0 Refills, Maintenance, 04/04/15 13:02:46 Start Date: 04/04/15 Status: Ordered metFORMIN 500 mg oral tablet 1 tablet = 500 mg, By Mouth, Daily at supper, 0 Refills, Maintenance, 09/11/16 14:30:36 Start Date: 09/11/16 Status: Ordered Readi-Cat 2 oral suspension See Instructions, Dispense : 2 Bottles 450 ml each Dx: Hernia, # 900 mL, 0 Refills, Maintenance, 07/29/18 14:53:19 EST, Dispense : 2 Bottles; 450 ml each; Dx: Hernia Start Date: 07/29/18 Status: Ordered Readi-Cat 2 oral suspension See Instructions, Please dispense total of 900mL. Drink 1st bottle by 8 a.m. on day of scan. Drink 2nd bottle @ 11:30am on day of scan., # 2 bottle, 0 Refills, Maintenance, 10/24/18 10:50:21 EST, Please dispense total of 900mL. Drink 1st bottle by 8... Start Date: 10/24/18 Status: Ordered zolpidem 10 mg oral tablet 1 tablet = 10 mg, By Mouth, Daily at bedtime, 0 Refills, Maintenance, 04/04/15 13:04:21 Start Date: 04/04/15 Status: Ordered Problem List Condition Confirmation Course Effective Dates Status H ealth Status Informant Asthma Confirmed Active Back pain Confirmed Active Left ovarian cyst Confirmed Active Depression with anxiety Confirmed Active Gastroesophageal reflux disease Confirmed Active Urinary frequency Confirmed Active Migraines Confirmed Active Obesity Confirmed Active Opioid dependence Confirmed Active Behavioral disorder NOS Confirmed Active Fatty liver Confirmed Active Varicose vein Confirmed Active Venous insufficiency (chronic) (peripheral) Confirmed Active Social History Social History Type Response Smoking Status Never smoker entered on: 01/28/17 Sex Patient Care team information Personnel Name: Jaquelin Rivera MD Address: Address: [address] [place] [address]
--- OUTSIDE RECORDS SUMMARY | 2024-03-08 07:49 | XMS_ITS | Continuity of Care Document ---
Author Organization [facility] Address [address] [place] [address] [address] [place] [address]- Care Team Providers Care Resort Housekeeper Name Role Phone Jaquelin Rivera MD Primary Care Physician Encounter [facility] Date(s): 05/07/22 - 06/06/[address] [place], [place] [address] Attending Physician: Elmo Hagen Admitting Physician: Admtr, Elmo Referring Physician: Admtr, [id number] Allergies, Adverse Reactions, Alerts Substance Reaction Severity [...] Personnel Name: Jaquelin Rivera MD Address: Address: [address] [place] [id number]
[2024-03-08 09:28] LABS: Glucose, Whole Blood 121 mg/dL (60-115)
[2024-03-08] MEDS: Lactated Ringers 1,000 ML 999 ML IV (09:43)
[2024-03-08] MEDS: Acetaminophen 1,000 MG/100 ML PIGGYBACK 400 MG IV (09:47)
--- NOTE | 2024-03-08 11:00 | MHC.SHP ---
Pre-Procedural Eval Section A - 24 Hr Update-Section A only Date of Service: 03/08/24 The patient is an INPATIENT: No Changes since office visit: No Cold of Flu in the past 2 weeks, No New Medical Problems, No Changes in Medication and No Patient answered all questions The patient has been examined within 24 hours of the surgical procedure. The History & Physical has been completed within 30 days and I have reviewed it.: Yes Section B - Complete if H&P > 30 days Chief Complaint: Calculus of kidney Details of Present Illness: right 5mm Relevant Family History (Specify if Yes): No Relevant Social History: None Present Medications: see Short Stay Collaborative assessment Medical History: No relevant PMH History of Previous Operations: No relevant previous surgery Allergies: Allergies Allergy/AdvReac Type Severity Reaction Status Date / Time pineapple Allergy Severe tongue Verified 03/08/24 09:11 swelling diphenhydramine Allergy Intermediate HALLUCINATI Verified 03/08/24 09:11 [From BENADRYL] ONS morphine [MORPHINE] Allergy Intermediate DIAPHORESIS; Verified 03/08/24 09:11 TACHYCARDIA, palpitations, sweating, tingling of hands and face quetiapine [From SEROQUEL] Allergy Intermediate PALPITATION Verified 03/08/24 09:11 S seafood Allergy Intermediate redness/itc Verified 03/08/24 09:11 akhil tomato Allergy Intermediate Blister Verified 03/08/24 09:11 trazodone [TRAZODONE] Allergy Intermediate GI Upset, Verified 03/08/24 09:11 HEART RACING, palpitations prednisone [PREDNISONE] AdvReac Intermediate HEART RACES Verified 03/08/24 09:11 Review of Systems Sugical H&P ROS: Negative: Constitution, Cardiovascular, Respiratory, Neurological, Psychiatric, Hem-Onc, Allergic/Immunologic, Gastrointestinal, Genitourinary, Musculoskeletal, Integumentary, Endocrine and Eyes/Ears/Nose/Throat Exam Surgical H&P Exam: Normal: HEENT, Normal: Heart, Normal: Lungs, Normal: Extremities, Normal: Abdomen, Normal: Skin and Normal: Neurological Plan Diagnosis/Plan: Unchanged (right ESWL) I have reviewed the history and physical and performed a pertinent physical examination on my patient. No changes have occurred unless specified. Time Spent With Patient Time: Total time managing care of this patient today ____ minutes.
--- NOTE | 2024-03-08 12:25 | W.PM.OPN ---
Operative Note Operative Note Date of Service: 03/08/24 Narrative: PreOperative Diagnosis: right Renal stones Post Operative Diagnosis: right Renal stones Procedure: right ESWL Surgeon: Dr Wellington Mchugh Anesthesia: mac/sedation Indications for procedure: The patient understands ESWL may be a staged procedure and subsequent intervention may be required based on imaging after ESWL. Quoted stone clearance rates for a solitary procedure are in the 70-80% range based primarily on stone location. They also understand there is a risk of bleeding to the kidney, infection, damage to adjacent organs, and stone migration following the procedure. - Imaging CT 5mm mid pole Procedure optimization has been performed with IV acetaminophen given in the holding area and 1 L of lactated Ringer's to be given in order to optimize the fluid-stone interface. 20 mg of IV Lasix will be given in the last 5 minutes of the procedure to optimize stone clearance. Procedure: After informed consent was verified the patient was brought to the operating room and placed in a supine position. Anesthesia was performed per protocol. Safety pause time-out was performed. Imaging was displayed in the room and laterality confirmed. ESWL was performed. The 1st 500 shocks were performed at 60 hertz. These were performed with increasing power. Once maximum power was reached the rate was increased to 180 hertz. A total of 2500 shocks were given. Targeted imaging with ultrasound/fluoroscopy showed stone smudging suggestive of disintegration. The patient tolerated the procedure well and was transferred to the recovery area upon completion. Post procedure imaging will be organized. There was no evidence for flank discoloration.
[2024-03-08] MEDS: fentaNYL citrate/PF 100 MCG/2 ML VIAL 25 MCG IVPUSH ×2 (12:40→12:45)
== END 2024-03-08 14:41 | disposition home or self-care (01) ==
PROVIDERS: PCP Nurse Practitioner Family; Visit Provider Urology
PROC: (CPT 50590; principal; 2024-03-08 10:50)
DX: N20.0 Calculus of kidney (principal); Z87.442 Personal history of urinary calculi; I10 Essential (primary) hypertension; E78.00 Pure hypercholesterolemia, unspecified; E11.9 Type 2 diabetes mellitus without complications; R74.01 Elevation of levels of liver transaminase levels; J45.909 Unspecified asthma, uncomplicated; Z79.899 Other long term (current) drug therapy; Z79.84 Long term (current) use of oral hypoglycemic drugs; Z79.1 Long term (current) use of non-steroidal anti-inflammatories (NSAID); Z88.5 Allergy status to narcotic agent; Z88.8 Allergy status to other drugs, medicaments and biological substances
CPT/HCPCS: 50590; 74018; 82947; J0131; J1885; J1940; J2704; J3010

== ENCOUNTER → 2024-03-08 07:43 | Outpatient (BNV) | payer MEDICAID, SELFPAY | PROVIDERS: PCP Nurse Practitioner Family; Visit Provider Urology | DX: N20.0 Calculus of kidney (principal) | CPT/HCPCS: 50590 ==

== ENCOUNTER → 2024-03-14 12:43 | Outpatient (BNVA) | payer MEDICAID, SELFPAY | PROVIDERS: PCP Nurse Practitioner Family; Visit Provider Physician Assistant Surgical ==

== ENCOUNTER 2024-04-12 10:23 | Outpatient (AMB) | payer MEDICAID, SELFPAY ==
--- NOTE | 2024-04-12 11:00 | MHC.OFFVIS ---
Vital Signs 04/12/24 11:01 Height 5 ft Weight 195 lb BMI 38.1 BP 120/70 Blood Pressure Location Lt brachial Position Sitting Pulse 78 Pulse Source Pulse Oximeter Intake Visit Reasons: f/up-sleep study Manager Area Required: Yes Manager Area Name: [id number] Allergies pineapple Allergy (Severe, Verified 03/08/24 09:11) tongue swelling diphenhydramine [From BENADRYL] Allergy (Intermediate, Verified 03/08/24 09:11) HALLUCINATIONS morphine [MORPHINE] Allergy (Intermediate, Verified 03/08/24 09:11) DIAPHORESIS; TACHYCARDIA, palpitations, sweating, tingling of hands and face quetiapine [From SEROQUEL] Allergy (Intermediate, Verified 03/08/24 09:11) PALPITATIONS seafood Allergy (Intermediate, Verified 03/08/24 09:11) redness/itching tomato Allergy (Intermediate, Verified 03/08/24 09:11) Blister trazodone [TRAZODONE] Allergy (Intermediate, Verified 03/08/24 09:11) GI Upset, HEART RACING, palpitations prednisone [PREDNISONE] Adverse Reaction (Intermediate, Verified 03/08/24 09:11) HEART RACES Medication List - Last Reconciled 04/12/24 by Alfredito Constantino MD acetaminophen (Tylenol) 650 mg (2 x 325 mg) PO Q6H PRN albuterol sulfate 90 mcg/actuation 2 puffs inhalation Q4-6H PRN albuterol sulfate 2.5 mg inhalation TID PRN atorvastatin 40 mg PO DAILY blood sugar diagnostic (FreeStyle Lite Strips) As directed Test blood glucose 3x daily. blood-glucose meter (FreeStyle Lite Meter kit) As directed buspirone 10 mg PO TID cholecalciferol (vitamin D3) 50 mcg PO DAILY 30 days clonazepam 0.5 mg PO DAILY PRN docusate sodium 100 mg PO BID PRN empagliflozin (Jardiance) 25 mg PO DAILY 30 days escitalopram oxalate 20 mg PO DAILY ibuprofen 600 mg PO Q6H PRN ketorolac 10 mg PO Q8H PRN lancets (TRUEplus Lancets) 1 gauge miscellaneous QID 30 days lisinopril 5 mg PO DAILY magnesium oxide 200 mg PO DAILY metformin 500 mg PO BID metoprolol tartrate 12.5 mg (1/2 x 25 mg) PO BID naproxen 375 mg PO BID PRN oxycodone 5 mg PO Q8H PRN 3 days pantoprazole 40 mg PO DAILY pen needle, diabetic (Novofine 32) USE ONCE DAILY DIRECTED pyridoxine (vitamin B6) 100 mg PO DAILY 90 days sennosides (Senna Laxative) 17.2 mg PO DAILY PRN sumatriptan succinate 50 mg PO ONCE tamsulosin 0.4 mg PO BEDTIME 14 days tamsulosin (Flomax) 0.4 mg PO BEDTIME terconazole 0.4% 1 appful vaginal BEDTIME tirzepatide (Mounjaro) 5 mg (0.5 mL) subcut QWEEK tramadol 50 mg PO Q8H PRN vitamin A 1 cap PO DAILY HPI Comments Details: Sacha comes for follow-up. Her recent home sleep study showed no evidence of sleep apnea. Holter monitor was negative for any significant arrhythmias including at nighttime. She reported 3 events correlating with sinus tachycardia. Denies any other cardiac symptoms. Denies any exertional chest pain or shortness of breath. Denies any heart failure symptoms of orthopnea, PND, leg edema. [facility] Medical History Transaminitis GERD (gastroesophageal reflux disease) Anxiety Migraines Fatty liver Elevated cholesterol Asthma Vitamin D deficiency HLD (hyperlipidemia) HTN (hypertension) T2DM (type 2 diabetes mellitus) Diabetes mellitus Surgical History History of surgical removal of skin lesion (08/27/22) H/O lithotripsy History of local excision of skin lesion History of hysterectomy (~2011) Family History Father Heart disease Mother No problems noted. Social History Are you a primary personal care assistant to a significant other at home: No Do you presently have visiting nurse or other home services: No Alcohol intake: never Patient Tobacco Use Status: Never used Tobacco Second Hand Smoke Exposure: No Review of Systems Const Denies weakness ENT Denies dizziness Card Denies chest pain, Denies chest pain with activity, Denies syncope, Denies rapid heart rate, Denies pedal edema, Denies edema, Denies leg edema, Denies lightheadedness, Denies palpitations, Denies dyspnea, Denies dyspnea on exertion and Denies orthopnea Resp Denies cough, Denies dyspnea and Denies dyspnea on exertion GI Denies hematochezia and Denies change in stool character Musc Denies abnormal gait, Denies muscle cramps, Denies muscle weakness, Denies numbness, Denies radiating pain into limb and Denies tingling Neuro Denies abnormal gait, Denies dizziness, Denies syncope, Denies numbness, Denies tingling and Denies weakness Endo Denies palpitations Physical Exam Vital Signs: Last Vital Signs Pulse 78 04/12/24 11:01 BP 120/70 04/12/24 11:01 BMI result Body Mass Index 38.1 Const General: cooperative, comfortable, no acute distress, alert and awake Nutritional Appearance: obese Orientation/consciousness: patient oriented x3 Limitations: no limitations Neck Neck: Yes trachea midline, Yes supple and Yes no JVD Resp Effort & Inspection: normal respiratory effort Auscultation: clear to auscultation bilaterally Cardio Palpation: normal PMI Rate: regular rate Rhythm: regular rhythm Heart sounds: S1 normal heart sound present, S2 normal heart sound present, no click, no gallops, no murmurs and no rubs GI Inspection: Yes obesity Auscultation: normal bowel sounds Skin General skin exam: no rashes or lesions noted Neuro General: patient oriented x3 and no focal motor deficits Extrem General: Yes no clubbing, cyanosis or edema Psych Appearance: grossly normal Affect: Anxious affect present Assessment & Plan Assessment & Plan (1) Cardiomyopathy: Code(s): I42.9 - Cardiomyopathy, unspecified Category: Medical Plan: Cardiomyopathy with improved LV ejection fraction to low normal range. She has no signs or symptoms of heart failure. Continue aggressive neurohormonal modulation with metoprolol as well as lisinopril. Continue to maintain aggressive blood pressure control. Advised to monitor blood pressure intermittently at home. Goal blood pressure less than 130/84. Signs and symptoms of heart failure were discussed. Low-salt diet was discussed encouraged to increase activity level as well as participate in weight loss program. Continue aggressive management diabetes goal hemoglobin A1c less than 7% goal LDL less than 70 mg/dL. Her symptoms of palpitation most likely related to inappropriate sinus tachycardia. There is no evidence of atrial fibrillation other cardiac arrhythmias that need further treatment. Avoidance of stimulants was discussed. Stress mitigation strategies was discussed. Will follow up in the clinic in 1 year's time after an echocardiogram. Thank you for allowing me to partake in his care Coding Level of Care Code Est Pt Level 4 (56730) Diagnoses Cardiomyopathy I42.9
[2024-04-12 11:01] VITALS: BP 120/70; PULSE 78; BMI 38.1
== END 2024-04-12 11:29 | disposition home or self-care (01) ==
PROVIDERS: PCP Nurse Practitioner Family; Referring Provider Nurse Practitioner Family; Visit Provider Internal Medicine Cardiovascular Disease
DX: I42.9 Cardiomyopathy, unspecified (principal)
CPT/HCPCS: 99214

== ENCOUNTER 2024-04-12 11:42 | Outpatient (REF) | payer MEDICAID, SELFPAY ==
--- NOTE | ~2024-04-12 | US_ITS ---
EXAMINATION: US RETROPERITONEAL COMPLETE (RENAL) CLINICAL INFORMATION: Calculus of kidney. COMPARISON: [facility] 03/08/2024. CT abdomen and pelvis 12/15/2023. Renal ultrasound 11/03/2023. TECHNIQUE: Real-time imaging of the kidneys . FINDINGS: RIGHT KIDNEY: 10.2 x 4.3 x 4.1 cm (SAG x AP x TRV). The kidney is normal in size, contour, and echogenicity. Renal cortical thickness is normal. No focal parenchymal lesions. There are 2 echogenic foci seen in the right kidney to upper pole measuring 4 and 5 mm in size with twinkle artifact consistent with nonobstructing calculi. No hydronephrosis. LEFT KIDNEY: 11.0 x 4.5 x 3.3 cm (SAG x AP x TRV). The kidney is normal in size, contour, and echogenicity. Renal cortical thickness is normal. No focal parenchymal lesions. There are two mid renal echogenic foci measuring 2 and 3 mm in size consistent with nonobstructing calculi. No hydronephrosis. US/US renal BI IMPRESSION: Bilateral nonobstructing renal calculi. Electronically signed by: Andres Madrid MD 04/25/2024 12:36 AM EDT
== END 2024-04-12 11:43 | disposition home or self-care (01) ==
LOC: HO.US 11:42
PROVIDERS: PCP Nurse Practitioner Family; Visit Provider Urology
DX: N20.0 Calculus of kidney (principal)
CPT/HCPCS: 76775; 99212

== ENCOUNTER 2024-04-13 17:44 | Outpatient (REF) | payer MEDICAID, SELFPAY ==
[2024-04-17 11:17] LABS: Alprazolam, GCMS Urine NEGATIVE; Lorazepam GCMS Urine NEGATIVE; Nordiazepam, GCMS Urine NEGATIVE; Oxazepam, GCMS Urine NEGATIVE
[2024-04-17 11:18] LABS: Alphahydroxymidazolam,GCMS Ur NEGATIVE; Alphahydroxytriazolam, GCMS Ur NEGATIVE; Aminoclonazepam, GCMS Urine NEGATIVE; Flurazepam Metabolite,GCMS Ur NEGATIVE; Temazepam, GCMS Urine NEGATIVE
== END 2024-04-13 17:45 | disposition home or self-care (01) ==
LOC: HO.HHCLNP 17:44
PROVIDERS: Visit Provider Nurse Practitioner Family
DX: M54.9 Dorsalgia, unspecified (principal); G89.29 Other chronic pain
CPT/HCPCS: 80346

== ENCOUNTER 2024-04-18 12:21 | Outpatient (AMB) | payer MEDICAID, SELFPAY ==
--- NOTE | 2024-04-18 12:35 | MHC.OFFVIS ---
Vital Signs 04/18/24 12:48 Height 5 ft Weight 187 lb BMI 36.5 BP 137/75 Blood Pressure Location Lt brachial Position Sitting Pulse 104 H Intake Visit Reasons: breast cyst Intake Note: Patient is seen in office for follow up care, following left breast cyst. Pt c/o: onset for 2 months, notice a discolored mass on the left breast near the axilla, admits to pain with bra, swelling, throbbing at night and redness Loft Patternmaker Required: Yes Loft Patternmaker Language: Honing Machine Operator Tool Services: Loft Patternmaker Present Loft Patternmaker Name: Anaid MENG Information Interpreted: non-clinical & clinical Certified Surgical Assistant: Certified Surgical Assistant Present Accompanied by: Self / Same As Patient Allergies pineapple Allergy (Severe, Verified 04/18/24 12:38) tongue swelling diphenhydramine [From BENADRYL] Allergy (Intermediate, Verified 04/18/24 12:38) HALLUCINATIONS morphine [MORPHINE] Allergy (Intermediate, Verified 04/18/24 12:38) DIAPHORESIS; TACHYCARDIA, palpitations, sweating, tingling of hands and face quetiapine [From SEROQUEL] Allergy (Intermediate, Verified 04/18/24 12:38) PALPITATIONS seafood Allergy (Intermediate, Verified 04/18/24 12:38) redness/itching tomato Allergy (Intermediate, Verified 04/18/24 12:38) Blister trazodone [TRAZODONE] Allergy (Intermediate, Verified 04/18/24 12:38) GI Upset, HEART RACING, palpitations prednisone [PREDNISONE] Adverse Reaction (Intermediate, Verified 04/18/24 12:38) HEART RACES Medication List - Last Reconciled 04/18/24 by Lobo Campos MD acetaminophen (Tylenol) 650 mg (2 x 325 mg) PO Q6H PRN albuterol sulfate 90 mcg/actuation 2 puffs inhalation Q4-6H PRN albuterol sulfate 2.5 mg inhalation TID PRN atorvastatin 40 mg PO DAILY blood sugar diagnostic (FreeStyle Lite Strips) As directed Test blood glucose 3x daily. blood-glucose meter (FreeStyle Lite Meter kit) As directed buspirone 10 mg PO TID cholecalciferol (vitamin D3) 50 mcg PO DAILY 30 days clonazepam 0.5 mg PO DAILY PRN docusate sodium 100 mg PO BID PRN empagliflozin (Jardiance) 25 mg PO DAILY 30 days escitalopram oxalate 20 mg PO DAILY ibuprofen 600 mg PO Q6H PRN ketorolac 10 mg PO Q8H PRN lancets (TRUEplus Lancets) 1 gauge miscellaneous QID 30 days lisinopril 5 mg PO DAILY magnesium oxide 200 mg PO DAILY metformin 500 mg PO BID metoprolol tartrate 12.5 mg (1/2 x 25 mg) PO BID naproxen 375 mg PO BID PRN oxycodone 5 mg PO Q8H PRN 3 days pantoprazole 40 mg PO DAILY pen needle, diabetic (Novofine 32) USE ONCE DAILY DIRECTED pyridoxine (vitamin B6) 100 mg PO DAILY 90 days sennosides (Senna Laxative) 17.2 mg PO DAILY PRN sumatriptan succinate 50 mg PO ONCE tamsulosin 0.4 mg PO BEDTIME 14 days tamsulosin (Flomax) 0.4 mg PO BEDTIME terconazole 0.4% 1 appful vaginal BEDTIME tirzepatide (Mounjaro) 5 mg (0.5 mL) subcut QWEEK tramadol 50 mg PO Q8H PRN vitamin A 1 cap PO DAILY HPI Comments Details: Patient presents for evaluation of symptomatic subcutaneous sebaceous cyst involving the left breast. She has had this several months time. His increasing in size and become more symptomatic. She would like to have removed. She has had similar cysts excised in the past.. Chart was reviewed and patient evaluated. Patient was known to me from the past. Chart was reviewed and patient evaluate [facility] Medical History Transaminitis GERD (gastroesophageal reflux disease) Anxiety Migraines Fatty liver Elevated cholesterol Asthma Vitamin D deficiency HLD (hyperlipidemia) HTN (hypertension) T2DM (type 2 diabetes mellitus) Diabetes mellitus Surgical History History of surgical removal of skin lesion (08/27/22) H/O lithotripsy History of local excision of skin lesion History of hysterectomy (~2011) Family History Father Heart disease Mother No problems noted. Social History Are you a primary companion caregiver to a significant other at home: No Do you presently have visiting nurse or other home services: No Alcohol intake: never Patient Tobacco Use Status: Never used Tobacco Second Hand Smoke Exposure: No Physical Exam Vital Signs: Last Vital Signs Pulse 104 H 04/18/24 12:48 BP 137/75 04/18/24 12:48 BMI result Body Mass Index 36.5 Chest Other: Patient has a roughly 2 x 1 cm sebaceous cyst in the lower outer quadrant of her breast bordering the chest wall. Assessment & Plan Assessment & Plan (1) Sebaceous cyst of breast: Code(s): N60.89 - Other benign mammary dysplasias of unspecified breast Category: Surgical Plan Risks, benefits, alternatives of excision of this symptomatic sebaceous cyst of the left breast/chest were reviewed the patient and included but not limited to bleeding, infection, recurrence, numbness, pain, scarring and the patient wished to proceed but another day which is more convenient for her. Arrangements were made for this. Coding Level of Care Code Est Pt Level 4 (49450) Diagnoses Sebaceous cyst of breast N60.89
[2024-04-18 12:48] VITALS: BP 137/75; PULSE 104; BMI 36.5
== END 2024-04-18 12:50 | disposition home or self-care (01) ==
PROVIDERS: PCP Nurse Practitioner Family; Visit Provider Surgery
DX: N60.89 Other benign mammary dysplasias of unspecified breast (principal)
CPT/HCPCS: 99214

== ENCOUNTER → 2024-04-18 12:21 | Outpatient (BNVA) | payer MEDICAID, SELFPAY | PROVIDERS: PCP Nurse Practitioner Family; Visit Provider Surgery | DX: N60.82 Other benign mammary dysplasias of left breast (principal) | CPT/HCPCS: 99212 ==

== ENCOUNTER 2024-05-09 15:34 | Outpatient (REF) | payer MEDICAID, SELFPAY ==
[2024-05-09 16:31] LABS: MANUAL DIFF FLAG NO
[2024-05-09 16:37] LABS: Basophils Percent Auto 0.3 % (0-2); Eosinophils Absolute Auto 0.1 X10*3/uL (0.0-0.4); Eosinophils Percent Auto 1.1 % (0-4); Hematocrit 36.9 % (37.0-47.0); Hemoglobin 12.1 g/dl (12.0-16.0); Imm Gran Abs Auto 0.02 X10*3/uL (0.00-0.03); Imm Gran Pct Auto 0.3 % (0.0-0.4); Lymphocytes Absolute Auto 2.6 X10*3/uL (1.2-4.9); Lymphocytes Percent Auto 34.1 % (20-40); Mean Corpuscular HGB Conc 32.8 g/dl (31.0-35.0); Mean Corpuscular Hemoglobin 27.5 pg (27.0-33.0); Mean Corpuscular Volume 83.9 fL (80.0-98.0); Mean Platelet Volume 11.5 fL (9.4-12.3); Monocytes Absolute Auto 0.4 X10*3/uL (0.1-1.2); Monocytes Percent Auto 5.7 % (2-11); Neutrophils Absolute Auto 4.4 x10*3/uL (2.0-8.3); Neutrophils Percent Auto 58.5 % (45-73); Platelet Count 238 X10*3/uL (160-400); Red Cell Distribution Width 13.7 % (11.0-16.0); White Blood Count 7.5 X10*3/uL (4.8-10.8)
[2024-05-09 16:54] LABS: Alanine Aminotransferase 26 U/L (0-31); Albumin Level 4.3 g/dL (3.5-5.0); Alkaline Phosphatase 120 U/L (39-117); Aspartate Amino Transferase 29 U/L (5-31); Bilirubin Direct 0.3 mg/dL (0.0-0.5); Bilirubin Total 0.7 mg/dL (0.0-1.0); Total Protein 7.7 g/dL (6.5-8.0)
== END 2024-05-09 15:35 | disposition home or self-care (01) ==
LOC: HO.HHCL 15:34
PROVIDERS: Visit Provider Family Medicine
DX: R10.11 Right upper quadrant pain (principal)
CPT/HCPCS: 36415; 80076; 85025

== ENCOUNTER 2024-05-12 09:49 | Outpatient (AMB) | payer MEDICAID, SELFPAY ==
--- NOTE | 2024-05-12 09:54 | A.OFFVIS_ITS ---
Vital Signs 05/12/24 10:23 Height 5 ft Weight 182 lb 15.739 oz BMI 35.7 BP 116/78 Blood Pressure Location Rt brachial Position Sitting Pulse 72 Pulse Source Pulse Oximeter Intake Visit Reasons: T2DM Intake Note: Patient present today to follow up on Type 2 Diabetes Mellitus. Last Diabetic Eye exam: Last year Last Podiatry Visit: Does not see a Company Dancer Most recent HgA1C: 6.0%, 05/12/2024 Random Glucose: 76 mg/dL, Today Quality Management Nurse Required: Yes Quality Management Nurse Language: Template Inspector Services: Quality Management Nurse Present Quality Management Nurse Name: TAQUERIA Chairez/ESME Early Information Interpreted: non-clinical & clinical Accompanied by: Self / Same As Patient Allergies pineapple Allergy (Severe, Verified 04/18/24 12:38) tongue swelling diphenhydramine [From BENADRYL] Allergy (Intermediate, Verified 04/18/24 12:38) HALLUCINATIONS morphine [MORPHINE] Allergy (Intermediate, Verified 04/18/24 12:38) DIAPHORESIS; TACHYCARDIA, palpitations, sweating, tingling of hands and face quetiapine [From SEROQUEL] Allergy (Intermediate, Verified 04/18/24 12:38) PALPITATIONS seafood Allergy (Intermediate, Verified 04/18/24 12:38) redness/itching tomato Allergy (Intermediate, Verified 04/18/24 12:38) Blister trazodone [TRAZODONE] Allergy (Intermediate, Verified 04/18/24 12:38) GI Upset, HEART RACING, palpitations prednisone [PREDNISONE] Adverse Reaction (Intermediate, Verified 04/18/24 12:38) HEART RACES Medication List - Last Reconciled 05/12/24 by Tereza Clay PA-C acetaminophen (Tylenol) 650 mg (2 x 325 mg) PO Q6H PRN albuterol sulfate 90 mcg/actuation 2 puffs inhalation Q4-6H PRN albuterol sulfate 2.5 mg inhalation TID PRN atorvastatin 40 mg PO DAILY blood sugar diagnostic (FreeStyle Lite Strips) As directed Test blood glucose 3x daily. blood-glucose meter (FreeStyle Lite Meter kit) As directed buspirone 10 mg PO TID cholecalciferol (vitamin D3) 50 mcg PO DAILY 30 days clonazepam 0.5 mg PO DAILY PRN docusate sodium 100 mg PO BID PRN empagliflozin (Jardiance) 25 mg PO DAILY 30 days escitalopram oxalate 20 mg PO DAILY ibuprofen 600 mg PO Q6H PRN ketorolac 10 mg PO Q8H PRN lancets (TRUEplus Lancets) 1 gauge miscellaneous QID 30 days lisinopril 5 mg PO DAILY magnesium oxide 200 mg PO DAILY metformin 500 mg PO BID metoprolol tartrate 12.5 mg (1/2 x 25 mg) PO BID naproxen 375 mg PO BID PRN oxycodone 5 mg PO Q8H PRN 3 days pantoprazole 40 mg PO DAILY pen needle, diabetic (Novofine 32) USE ONCE DAILY DIRECTED pyridoxine (vitamin B6) 100 mg PO DAILY 90 days sennosides (Senna Laxative) 17.2 mg PO DAILY PRN sumatriptan succinate 50 mg PO ONCE tamsulosin 0.4 mg PO BEDTIME 14 days tamsulosin (Flomax) 0.4 mg PO BEDTIME terconazole 0.4% 1 appful vaginal BEDTIME tirzepatide (Mounjaro) 5 mg (0.5 mL) subcut QWEEK tramadol 50 mg PO Q8H PRN vitamin A 1 cap PO DAILY HPI HPI T2DM: Details: Patient is a 43-year-old female with a significant past medical history of cardiomyopathy, hypertension, hyperlipidemia and type 2 diabetes presenting diabetes. Tonia is present today to help with translation. Endo: She is currently taking metformin 500 mg nightly, mounjaro 5 mg q week, Jardiance 25 mg. Her A1c today in the office is 6. She is on an BERTHA-inhibitor. Cholesterol is managed with atorvastatin. Follows with Ophthalmology and due for eye exam. no known hx of retinopathy. Does not Follow with Podiatry. She states that her blood sugars are usually around 100. Sometimes they go around 70. She is trying to diet and exercise. She has lost 5 lb since our last visit. -stopped ozempic because it did not control her blood sugars. did not contact for new dose. tolerated well. -in the past tried glipizide but did not tolerate this. CV: Blood pressure today is 116/78. She is on lisinopril 5 mg, Toprol 12.5 mg twice a day. Last lipids were elevated however she was off of the atorvastatin for a short time for surgery. She is fasting today states that she would like to recheck this. She has been compliant with the atorvastatin. [facility] Medical History Transaminitis GERD (gastroesophageal reflux disease) Anxiety Migraines Fatty liver Elevated cholesterol Asthma Vitamin D deficiency HLD (hyperlipidemia) HTN (hypertension) T2DM (type 2 diabetes mellitus) Diabetes mellitus Surgical History History of surgical removal of skin lesion (08/27/22) H/O lithotripsy History of local excision of skin lesion History of hysterectomy (~2011) Family History Father Heart disease Mother No problems noted. Social History Are you a primary resident care manager rn to a significant other at home: No Do you presently have visiting nurse or other home services: No Alcohol intake: never Patient Tobacco Use Status: Never used Tobacco Second Hand Smoke Exposure: No Physical Exam Vital Signs: Last Vital Signs Pulse 72 05/12/24 10:23 BP 116/78 05/12/24 10:23 BMI result Body Mass Index 35.7 Const Orientation/consciousness: patient oriented x3 Neck Neck: Yes no lymphadenopathy Thyroid: Thyroid normal Carotids: no bruits Resp Auscultation: clear to auscultation bilaterally Cardio Rate: regular rate Rhythm: regular rhythm Heart sounds: S1 normal heart sound present and S2 normal heart sound present Peripheral pulses: dorsalis pedis present Neuro General: patient oriented x3, gait normal and no focal motor deficits Extrem Other: Monofilament sensation intact bilaterally. Vibratory sensation intact bilaterally. Skin intact. General: Yes normal to inspection Results AMB Hemoglobin A1c AMB Hemoglobin A1c 6.0 % Last Edit by TAQUERIA Chairez on 05/12/24 10:38 Results Reviewed Results Reviewed: Laboratory Last Values Glucose (Clinic) 76 mg/dL (60-115) 05/12/24 10:27 Laboratory Tests 03/06/24 09:54 Triglycerides 241 H Cholesterol 209 H LDL Cholesterol, Calc 120 H HDL Cholesterol 41 TSH 2.57 Assessment & Plan Assessment & Plan (1) Controlled type 2 diabetes mellitus: Code(s): E11.9 - Type 2 diabetes mellitus without complications Category: Medical Qualifiers: Diabetes mellitus buttermaker insulin use: without buttermaker use Diabetes mellitus complication status: without complication Qualified Code(s): E11.9 - Type 2 diabetes mellitus without complications Plan: We will stop the metformin. Reduce Jardiance 10 mg. Continue the Mounjaro 5 mg. She is continuing to lose weight with this and is tolerating it well. Congratulated her on her weight loss. (2) HLD (hyperlipidemia): Code(s): E78.5 - Hyperlipidemia, unspecified Category: Medical Qualifiers: Hyperlipidemia type: unspecified Qualified Code(s): E78.5 - Hyperlipidemia, unspecified Plan: She is currently on the atorvastatin 40 mg nightly. We will recheck lipids today. We will adjust medication as indicated. (3) HTN (hypertension): Code(s): I10 - Essential (primary) hypertension Category: Medical Qualifiers: Hypertension type: unspecified Qualified Code(s): I10 - Essential (primary) hypertension Plan: WNL. Continue current regimen Orders: Orders Lipid Panel Today E78.5 - Hyperlipidemia, unspecified AMB Hemoglobin A1c Today E11.9 - Type 2 diabetes mellitus without complications, E78.5 - Hyperlipidemia, unspecified Medications: New empagliflozin (Jardiance) 10 mg PO DAILY 90 tabs 3RF Discontinued empagliflozin (Jardiance) Discontinued Reason: Doctor's Order 25 mg PO DAILY 30 days 30 tabs 11RF Coding Level of Care Code Est Pt Level 4 (90792) Complex EM visit Add On G2211 Diagnoses Controlled type 2 diabetes mellitus without complication, without long-term current use of insulin E11.9 Diabetes mellitus buttermaker insulin use: without buttermaker use Diabetes mellitus complication status: without complication Hyperlipidemia, unspecified hyperlipidemia type E78.5 Hyperlipidemia type: unspecified Hypertension, unspecified type I10 Hypertension type: unspecified
[2024-05-12 10:23] VITALS: BP 116/78; PULSE 72; BMI 35.7
[2024-05-12 10:31] LABS: Glucose, Whole Blood 76 mg/dL (60-115)
== END 2024-05-12 10:40 | disposition home or self-care (01) ==
PROVIDERS: PCP Nurse Practitioner Family; Visit Provider Physician Assistant
DX: E11.9 Type 2 diabetes mellitus without complications (principal); E78.5 Hyperlipidemia, unspecified; I10 Essential (primary) hypertension

== ENCOUNTER 2024-05-12 09:49 | Outpatient (REF) | payer MEDICAID, SELFPAY ==
[2024-05-12 12:37] LABS: Cholesterol 101 mg/dL (<200); HDL Cholesterol 37 mg/dL (>40); LDL Cholesterol Calculated 44 mg/dL (<100); Triglycerides 100 mg/dL (<150)
== END 2024-05-12 09:50 | disposition home or self-care (01) ==
LOC: HO.LAB 09:49
PROVIDERS: PCP Nurse Practitioner Family; Visit Provider Physician Assistant
DX: E11.9 Type 2 diabetes mellitus without complications (principal); E78.5 Hyperlipidemia, unspecified; I10 Essential (primary) hypertension
CPT/HCPCS: 36415; 80061; 82947; 83036; 99212

== ENCOUNTER 2024-05-15 13:41 | Emergency (ER) | payer MEDICAID, SELFPAY ==
--- NOTE | ~2024-05-15 | CT_ITS ---
EXAMINATION: CT HEAD WITHOUT CONTRAST CLINICAL INFORMATION: Dizziness. COMPARISON: CT from 02/09/2024. TECHNIQUE: Contiguous axial imaging was performed from the skullbase to vertex without intravenous administration of contrast. This CT examination was performed using dose optimization techniques as appropriate, variously including the following: *Automated exposure control *Adjustment of mA and/or kV according to patient size (this includes techniques or standardized protocols for targeted exams where dose is matched to indication/reason for exam; i.e. extremities or head) *Use of iterative reconstruction technique DLP: 467 mGy-cm. FINDINGS: There is no evidence of acute intracranial hemorrhage or territorial infarction. No abnormal mass effect or midline shift is seen. [place] to white matter differentiation is well preserved. No extra-axial fluid collections are identified. The ventricles are normal in size. There is no abnormal attenuation within the brain parenchyma. The osseous structures and soft tissues are normal. The mastoid air cells are are well aerated. There is mild mucosal thickening and a small fluid level in the right sphenoid sinus. CT/CT head/brain wo IV con IMPRESSION: No acute intracranial pathology. Mild mucosal thickening and small fluid level in the right sphenoid sinus; correlate for any symptoms of acute sinusitis. Electronically signed by: Russell Porras MD 05/15/2024 04:22 PM EDT
--- NOTE | 2024-05-15 13:45 | ECG_ITS ---
Test Reason : chest pain Blood Pressure : / mmHG Vent. Rate : 082 BPM Atrial Rate : 082 BPM P-R Int : 156 ms QRS Dur : 086 ms QT Int : 362 ms P-R-T Axes : 042 020 025 degrees QTc Int : 422 ms Normal sinus rhythm Nonspecific T wave abnormality Abnormal ECG When compared with ECG of 25-JUN-2023 18:30, Nonspecific T wave abnormality now evident in Anterior leads Referred By: Vero Oliver Electronically Signed By:JAKE PABON
[2024-05-15 13:56] VITALS: BP 116/79; PULSE 94; RESP 16; TEMP 36.9; O2SAT 97; BMI 35.4
--- NOTE | 2024-05-15 14:06 | ED.CHESTPAIN ---
HPI - Chest Pain General Chief Complaint: Chest Pain Stated Complaint: chest pain dizzy mouth sleeping Time Seen by Provider: 05/15/24 21:14 Source: patient Mode of arrival: ambulatory Limitations: no limitations History of Present Illness ED Provider: Dr. Thornton HPI narrative: Patient is a 43yo female with DM, HTN, high cholesterol who presents with numbness to hands, face, with dizziness and chest pain for the past 13 days. She suffers from anxiety and is supposed to have breast surgery tomorrow. Seh denies fever or shortness of breath MD complaint: chest pain Related Data Home Medications ?Medication ?Instructions ?Recorded ?Confirmed albuterol sulfate 90 mcg/actuation 2 puff inhalation Q4-6H PRN 10/01/20 05/12/24 aerosol inhaler Shortness Of Breath albuterol sulfate 2.5 mg/3 mL 2.5 mg inhalation TID PRN wheezing 04/15/21 05/12/24 (0.083 %) solution for nebulization buspirone 10 mg tablet 10 mg PO TID 04/15/21 05/12/24 docusate sodium 100 mg capsule 100 mg PO BID PRN Constipation 04/15/21 05/12/24 magnesium oxide 400 mg (241.3 mg 200 mg PO DAILY 04/15/21 05/12/24 magnesium) tablet pantoprazole 40 mg tablet,delayed 40 mg PO DAILY 04/15/21 05/12/24 release sennosides 8.6 mg tablet (Senna 17.2 mg PO DAILY PRN constipation 04/15/21 05/12/24 Laxative) terconazole 0.4 % vaginal cream 1 appful vaginal BEDTIME 04/15/21 05/12/24 vitamin A 3,000 mcg (10,000 unit) 1 cap PO DAILY 04/15/21 05/12/24 capsule escitalopram oxalate 20 mg tablet 20 mg PO DAILY 12/16/21 05/12/24 sumatriptan succinate 50 mg tablet 50 mg PO ONCE migraine 01/07/22 05/12/24 clonazepam 0.5 mg tablet 0.5 mg PO DAILY PRN anxiety 02/03/22 05/12/24 naproxen 500 mg tablet 375 mg PO BID PRN pain 03/14/24 05/12/24 Previous Rx's ?Medication ?Instructions ?Recorded blood-glucose meter (FreeStyle #1 ea 07/07/20 Lite Meter kit) ketorolac 10 mg tablet 10 mg PO Q8H PRN pain #10 tabs 02/23/21 tramadol 50 mg tablet 50 mg PO Q8H PRN pain (scale score 04/15/21 1-3) #14 tabs lisinopril 5 mg tablet 5 mg PO DAILY #30 tabs 02/18/22 cholecalciferol (vitamin D3) 50 50 mcg PO DAILY 30 days #30 caps 03/10/22 mcg (2,000 unit) capsule ibuprofen 600 mg tablet 600 mg PO Q6H PRN pain #30 tabs 07/13/22 blood sugar diagnostic (FreeStyle #100 ea 02/05/23 Lite Strips) metoprolol tartrate 25 mg tablet 12.5 mg (1/2 x 25 mg) PO BID #30 06/25/23 tabs acetaminophen 325 mg capsule 650 mg (2 x 325 mg) PO Q6H PRN 07/20/23 (Tylenol) pain #30 caps tamsulosin 0.4 mg capsule (Flomax) 0.4 mg PO BEDTIME #14 caps 11/22/23 pen needle, diabetic 32 gauge x #100 ea 11/23/2308/26 (Novofine 32) tirzepatide 5 mg/0.5 mL 5 mg (0.5 mL) subcut QWEEK #2 mL 02/28/24 subcutaneous pen injector (Vasiliy) atorvastatin 40 mg tablet 40 mg PO DAILY #90 tabs 02/29/24 oxycodone 5 mg tablet 5 mg PO Q8H PRN pain 3 days #8 tabs 03/08/24 tamsulosin 0.4 mg capsule 0.4 mg PO BEDTIME 14 days #14 caps 03/08/24 pyridoxine (vitamin B6) 100 mg 100 mg PO DAILY 90 days #90 tabs 03/12/24 tablet lancets 33 gauge (TRUEplus Lancets) 1 gauge miscellaneous QID for 04/12/24 diabetes mellitus 30 days #100 ea empagliflozin 10 mg tablet 10 mg PO DAILY #90 tabs 05/12/24 (Jardiance) Allergies Allergy/AdvReac Type Severity Reaction Status Date / Time pineapple Allergy Severe tongue Verified 05/15/24 14:06 swelling diphenhydramine Allergy Intermediate HALLUCINATI Verified 05/15/24 14:06 [From BENADRYL] ONS morphine [MORPHINE] Allergy Intermediate DIAPHORESIS; Verified 05/15/24 14:06 TACHYCARDIA, palpitations, sweating, tingling of hands and face quetiapine [From SEROQUEL] Allergy Intermediate PALPITATION Verified 05/15/24 14:06 S seafood Allergy Intermediate redness/itc Verified 05/15/24 14:06 akhil tomato Allergy Intermediate Blister Verified 05/15/24 14:06 trazodone [TRAZODONE] Allergy Intermediate GI Upset, Verified 05/15/24 14:06 HEART RACING, palpitations prednisone [PREDNISONE] AdvReac Intermediate HEART RACES Verified 05/15/24 14:06 Review of Systems Review of Systems: Yes all other systems are reviewed and are negative Neurologic: Denies Sensory deficit (Neuro) [facility] Past Medical History Medical History Transaminitis GERD (gastroesophageal reflux disease) Anxiety Migraines Fatty liver Elevated cholesterol Asthma Vitamin D deficiency HLD (hyperlipidemia) HTN (hypertension) T2DM (type 2 diabetes mellitus) Diabetes mellitus Surgical History History of surgical removal of skin lesion (08/27/22) H/O lithotripsy History of local excision of skin lesion History of hysterectomy (~2011) Family History Family History Father Heart disease Mother No problems noted. Social History Social History Are you a primary healthcare account manager to a significant other at home: No Do you presently have visiting nurse or other home services: No Alcohol intake: never Patient Tobacco Use Status: Never used Tobacco Second Hand Smoke Exposure: No Advance Directives: No Advance Directives Information Provided: No Physical Exam Vital Signs: Vital Signs: Last Vital Signs Temp 98.4 F 05/15/24 13:56 Pulse 94 05/15/24 13:56 Resp 16 05/15/24 13:56 BP 116/79 05/15/24 13:56 Pulse Ox 97 05/15/24 13:56 O2 Del Method Room Air 05/15/24 13:56 BMI result Body Mass Index 35.4 Const: Other: anxious Nutritional Appearance: obese Orientation/consciousness: oriented to person and patient oriented x3 Limitations: no limitations HEENT: Head: Yes normal to inspection Ears: external ears normal General nose exam: Normal external nose present Mouth: Normal oral and palatal mucosa present and oropharynx normal Throat: Yes posterior oropharynx normal Eyes: General: appearance normal, both eyes and all related structures Neck: Other: supple Neck: Yes normal visual inspection Chest: Chest palpation & inspection: normal inspection of the chest Resp: Auscultation: clear to auscultation bilaterally Cardio: Jugular venous distension: no JVD Rate: regular rate Rhythm: regular rhythm Heart sounds: S1 normal heart sound present and S2 normal heart sound present GI: Inspection: Yes normal to inspection Palpation (GI): Soft to palpation, nontender and No hepatosplenomegaly present Auscultation: normal bowel sounds : General: Yes no CVA tenderness Back/Spine/Pelvis: Back: no CVA tenderness Skin: General skin exam: no rashes or lesions noted Neuro: General: oriented to person and patient oriented x3 Cranial nerves: Yes CN's II-XII intact bilaterally Motor exam (neuro): 5/5 motor strength present throughout Sensory Exam: No Sensory deficit (Neuro) Extrem: General: Yes normal to inspection Psych: Appearance: grossly normal Course Course Course Narrative: RME performed by Vero Oliver PA-C. Patient is a 43 year old assigned female at presenting to the emergency department with chest pain, headache, and dizziness. Patient states that over the last 2 days she has had these symptoms. Detailed physical exam and review of systems are deferred to the admissions clinician. EKG, labs, imaging, and swabs ordered. Patient placed back in the waiting room pending room availability and results. Reevaluation(s) Reevaluation #1: Patient with normal EKG, troponin, CT of brain. Neuro exam normal, patient appears to be anxious about her surgery will dc home Time: 21:39 Medical Decision Making Differential Diagnosis Differential Diagnoses: The differential diagnosis associated with the presentation includes (paraesthesia, chest pain, dizziness, CVA, cardiac ischemia anxiety were all considered) Admission/Observation Consideration of admission/observation: Escalation of care including admission/observation considered (upon arrival admission was considered) Lab Data 05/15/24 14:39 05/15/24 14:39 Labs: Lab Results 05/15/24 Range/Units 14:39 WBC 7.0 (4.8-10.8) X10*3/uL RBC 4.66 (4.20-5.50) X10*6/uL Hgb 12.9 (12.0-16.0) g/dl Hct 38.4 (37.0-47.0) % MCV 82.4 (80.0-98.0) fL MCH 27.7 (27.0-33.0) pg MCHC 33.6 (31.0-35.0) g/dl RDW 13.8 (11.0-16.0) % Plt Count 223 (160-400) X10*3/uL MPV 10.8 (9.4-12.3) fL Immature Gran % (Auto) 0.1 (0.0-0.4) % Neut % (Auto) 62.1 (45-73) % Lymph % (Auto) 31.7 (20-40) % [place] % (Auto) 4.3 (2-11) % Eos % (Auto) 1.4 (0-4) % Baso % (Auto) 0.4 (0-2) % Lymph # (Auto) 2.2 (1.2-4.9) X10*3/uL [place] # (Auto) 0.3 (0.1-1.2) X10*3/uL Eos # (Auto) 0.1 (0.0-0.4) X10*3/uL Baso # (Auto) 0.0 (0.0-0.2) X10*3/uL Abs Immat Gran (auto) 0.01 (0.00-0.03) X10*3/uL Absolute Neuts (auto) 4.3 (2.0-8.3) x10*3/uL Absolute Nucleated RBC 0.000 (0.0-0.012) X10*3/uL Nucleated RBC % (auto) 0.0 (0.0-0.2) /100WBC Sodium 142 (135-145) mmol/L Potassium 3.9 (3.3-5.1) mmol/L Chloride 111 H (96-108) mmol/L Carbon Dioxide 22 (22-29) mmol/L Anion Gap 13 (12-20) BUN 10 (9-16) mg/dL Creatinine 0.89 (0.5-1.4) mg/dL Estim Creat Clear Calc 76.7 Estimated GFR > 60 Random Glucose 117 H (60-115) mg/dL Calcium 9.8 (8.4-10.2) mg/dL Magnesium 1.8 (1.6-2.6) mg/dL Total Bilirubin 0.9 (0.0-1.0) mg/dL AST 29 (5-31) U/L ALT 26 (0-31) U/L Alkaline Phosphatase 124 H (39-117) U/L Troponin I High Sens < 2.7 (<3.5-17.0) ng/L Total Protein 7.7 (6.5-8.0) g/dL Albumin 4.3 (3.5-5.0) g/dL Beta HCG, Quant 5 mIU/mL Influenza Type A (PCR) NEGATIVE (Negative) Influenza Type B (PCR) NEGATIVE (Negative) RSV RNA Qual (PCR) NEGATIVE (Negative) SARS-CoV-2 RNA (RT-PCR) NEGATIVE (Negative) Independent Interpretation I performed an independent interpretation of an: EKG (sinus 80, no st or twave changes) and CT Scan (Brain: no mass or bleed) Prescription Management I considered prescription management with: Antibiotic (no evidence of infection) Chronic Conditions Patient?s care impacted by: Diabetes and Hypertension Social Determinants Patient?s care significantly limited by Social Determinants of Health including: Low income Discharge Plan Discharge Clinical Impression: Facial paresthesia, Chest discomfort Patient Disposition: Home, Self-Care Instructions: Chest Pain (ED), Paresthesia (ED) Prescriptions: No Action cholecalciferol (vitamin D3) 50 mcg (2,000 unit) capsule 50 mcg PO DAILY 30 Days Qty: 30 11RF (DME) FreeStyle Lite Strips Strip See Rx Instructions .ROUTE .MEDSUPPLY Qty: 100 11RF Rx Instructions: As directed Test blood glucose 3x daily. (DME) pen needle, diabetic [Novofine 32] 32 gauge x 1/4 needle See Rx Instructions .ROUTE .COMPLEX Qty: 100 5RF Dose Instruction: USE ONCE DAILY DIRECTED Rx Instructions: USE ONCE DAILY DIRECTED Mounjaro 5 mg/0.5 mL pen injector 5 mg subcut QWEEK Qty: 2 3RF atorvastatin 40 mg tablet 40 mg PO DAILY Qty: 90 1RF pyridoxine (vitamin B6) 100 mg tablet 100 mg PO DAILY 90 Days Qty: 90 3RF lancets [TRUEplus Lancets] 33 gauge misc 1 gauge miscellaneous QID 30 Days Qty: 100 11RF albuterol sulfate 90 mcg/actuation Hfa Aerosol Inhaler 2 puff INHALATION Q4-6H PRN (Reason: Shortness Of Breath) ketorolac 10 mg tablet 10 mg PO Q8H PRN (Reason: pain) Qty: 10 0RF ibuprofen 600 mg tablet 600 mg PO Q6H PRN (Reason: pain) Qty: 30 0RF metoprolol tartrate 25 mg tablet 12.5 mg PO BID Qty: 30 0RF tamsulosin 0.4 mg capsule 0.4 mg PO BEDTIME 14 Days Qty: 14 0RF oxycodone 5 mg tablet 5 mg PO Q8H PRN (Reason: pain) 3 Days Qty: 8 0RF Rx Instructions: Partial Fill upon patient request. acetaminophen [Tylenol] 325 mg capsule 650 mg PO Q6H PRN (Reason: pain) Qty: 30 0RF (DME) blood-glucose meter [FreeStyle Lite Meter] Kit See Rx Instructions .ROUTE .MEDSUPPLY Qty: 1 0RF Rx Instructions: As directed terconazole 0.4 % cream 1 appful vaginal BEDTIME pantoprazole 40 mg tablet,delayed release (DR/EC) 40 mg PO DAILY albuterol sulfate 2.5 mg /3 mL (0.083 %) solution for nebulization 2.5 mg inhalation TID PRN (Reason: wheezing) sennosides [Senna Laxative] 8.6 mg tablet 17.2 mg PO DAILY PRN (Reason: constipation) docusate sodium 100 mg capsule 100 mg PO BID PRN (Reason: Constipation) buspirone 10 mg tablet 10 mg PO TID vitamin A 10,000 unit capsule 1 cap PO DAILY magnesium oxide 400 mg (241.3 mg magnesium) tablet 200 mg PO DAILY tramadol 50 mg tablet 50 mg PO Q8H PRN (Reason: pain (scale score 1-3)) Qty: 14 0RF lisinopril 5 mg tablet 5 mg PO DAILY Qty: 30 5RF escitalopram oxalate 20 mg tablet 20 mg PO DAILY sumatriptan succinate 50 mg tablet 50 mg PO ONCE clonazepam 0.5 mg tablet 0.5 mg PO DAILY PRN (Reason: anxiety) naproxen 500 mg tablet 375 mg PO BID PRN (Reason: pain) tamsulosin [Flomax] 0.4 mg capsule 0.4 mg PO BEDTIME Qty: 14 0RF Jardiance 10 mg tablet 10 mg PO DAILY Qty: 90 3RF Referrals: Physician,Unknown J [Primary Care Provider] - 3 days Print Language: Polish
[2024-05-15 14:44] LABS: MANUAL DIFF FLAG NO
[2024-05-15 14:47] LABS: Basophils Percent Auto 0.4 % (0-2); Eosinophils Absolute Auto 0.1 X10*3/uL (0.0-0.4); Eosinophils Percent Auto 1.4 % (0-4); Hematocrit 38.4 % (37.0-47.0); Hemoglobin 12.9 g/dl (12.0-16.0); Imm Gran Abs Auto 0.01 X10*3/uL (0.00-0.03); Imm Gran Pct Auto 0.1 % (0.0-0.4); Lymphocytes Absolute Auto 2.2 X10*3/uL (1.2-4.9); Lymphocytes Percent Auto 31.7 % (20-40); Mean Corpuscular HGB Conc 33.6 g/dl (31.0-35.0); Mean Corpuscular Hemoglobin 27.7 pg (27.0-33.0); Mean Corpuscular Volume 82.4 fL (80.0-98.0); Mean Platelet Volume 10.8 fL (9.4-12.3); Monocytes Absolute Auto 0.3 X10*3/uL (0.1-1.2); Monocytes Percent Auto 4.3 % (2-11); Neutrophils Absolute Auto 4.3 x10*3/uL (2.0-8.3); Neutrophils Percent Auto 62.1 % (45-73); Platelet Count 223 X10*3/uL (160-400); Red Blood Count 4.66 X10*6/uL (4.20-5.50); Red Cell Distribution Width 13.8 % (11.0-16.0)
[2024-05-15 15:07] LABS: Alanine Aminotransferase 26 U/L (0-31); Albumin Level 4.3 g/dL (3.5-5.0); Alkaline Phosphatase 124 U/L (39-117); Anion Gap 13 (12-20); Aspartate Amino Transferase 29 U/L (5-31); Bilirubin Total 0.9 mg/dL (0.0-1.0); Blood Urea Nitrogen 10 mg/dL (9-16); Calcium 9.8 mg/dL (8.4-10.2); Carbon Dioxide 22 mmol/L (22-29); Chloride 111 mmol/L (96-108); Creatinine Clr Calc Pharmacy 76.7; Estimated Glomerular Filt Rate > 60; Glucose Random 117 mg/dL (60-115); Magnesium 1.8 mg/dL (1.6-2.6); Potassium 3.9 mmol/L (3.3-5.1); Sodium 142 mmol/L (135-145); Total Protein 7.7 g/dL (6.5-8.0)
[2024-05-15 15:08] LABS: HCG Quantitative 5 mIU/mL
[2024-05-15 15:10] LABS: Troponin-I High Sensitivity < 2.7 ng/L (<3.5-17.0)
[2024-05-15 15:21] LABS: Influenza A PCR NEGATIVE (Negative); Influenza B PCR NEGATIVE (Negative); Resp Syncy Virus RNA Qual PCR NEGATIVE (Negative); SARS COV2 PCR INHOUSE NEGATIVE (Negative)
--- OUTSIDE RECORDS SUMMARY | 2024-05-15 21:29 | XMS_ITS ---
Author Organization [facility] Address [address] [place] [address] Care Team Providers Care Senior Compensation Consultant Name Role Phone Radha Rodriguez Primary Care Provider Jaylan Clancy Unavailable [phone] REASON FOR VISIT Patient presents today for FATTY LIVER Encounters Encounter Location Date Provider Diagnosis [facility] [address] [place] [address] 01/26/2024 Jaylan Neal PLAN OF TREATMENT Next Appt Details Provider Name:Jaylan Neal , 06/20/2024 01:20:00 PM, [address], [address], [place], [address],
--- OUTSIDE RECORDS SUMMARY | 2024-05-15 21:30 | XMS_ITS | Patient Health Record ---
Author Organization [facility] Address [address] [place] [address] Care Team Providers Care Parts Counter Clerk Name Role Phone Radha Rodriguez Primary Care Provider Jaylan Clancy Unavailable [phone] ALLERGIES Allergen (clinical drug ingredient) Drug/Non Drug Allergy documented on EMR Reaction Allergy Type Onset Date Status trazodone Trazodone HCl Unknown Drug Allergy Act arvin quetiapine Quetiapine Fumarate Unknown Drug Allergy Active morphine Morphine Sulfate Unknown Drug Allergy Active diphenhydramine Benadryl Unknown Drug Allergy A ctive sea food (uncoded) Unknown Allergy A ctive REASON FOR REFERRAL Referring Provider First Name Radha Referring Provider Last Name Pablo Referred Organization [facility] Referred Provider Jaylan Neal Referred Address [address],[place], [place],[address], Referred Provider Specialty Gastroentero logy General Notes Please see if a [facility] [address] referral is on file or needed for office visit with Dr. Neal on 06-20-2024. [facility] Asha smith Dawn 05/09/2024 07:44:46 AM EDT > eligible, needs referrral...Requested from [facility] Referral Priority Routine MEDICATIONS Medication SIG (Take, Route, Frequency, Duration) [...] DAILY Oral for 30 Active Vitamin A 50379 UNIT TAKE 1 CAPSULE BY M OUTH [...] Problem Epigastric abdominal pain (R10.13) Active confirmed 02134013 Problem Irritable bowel syndrome with diarrhea (K58.0) Active confirmed 875745830 Problem Elevated liver function tests (R79.89) Active confirmed Elevated liver enzymes level (175920581) Problem Fatty liver (K76.0) Active confirmed 19 0632062 Problem Gastroesophageal reflux disease, esophagitis presence not specified (K21.9) Active confirmed 032693649 Problem Abdominal pain, right upper quadrant (R10.11) Active confirmed [id number] Encounters Encounter Location Date Provider Diagnosis [facility] [address] [place] [phone] 01/26/2024 Jaylan Neal [facility] [address] [place] [phone] 05/26/2023 Jaylan Neal [facility] [address] [place] [phone] 01/26/2024 Jaylan Neal PLAN OF TREATMENT Pending Test Test Name Order Date BUN 12/29/2019 CREATININE 12/29/2019 LIVER PROFILE 12/29/2019 LIVER PROFILE 02/04/2020 LIVER PROFILE 04/09/2020 CBC w DIFF 12/29/2019 PROTHROMBIN TIME (PT, INR) 12/29/2019 [id number] (A1A) 12/29/2019 CAROTENE 12/29/2019 CERULOPLASMIN 12/29/2019 MITOCHONDRIAL AB 12/29/2019 SMOOTH MUSCLE ANTIBODIES 12/29/2019 VITAMIN A 12/29/2019 NUC HIDA SCAN 10/19/2017 FLUOR. ANTINUCLEAR AB SCREEN (SERGIO) 03/2020 VITAMIN D 25-OH TOTAL 12/29/2019 Future Test Test Name Order Date UPPER GI ENDOSCOPY 10/19/2017 Next Appt Details Provider Name:Jaylan Neal , 06/20/2024 01:20:00 PM, [address] [facility], [address], [place], [address], Insurance Providers Payer Name Payer Address Payer Phone Subscriber Number Group Number Insured Name Patient Relationship to Insured Coverage Start Date Coverage End Date MEDICAID OF [employer] [address] [place] [id number] HARMAN LEUNG Self - patient is the insured MEDICAL (GENERAL) HISTORY Medical History History ICD Code Asthma Denies [place],CVA,renal disease Migraines Anxiety, depression, bipolar disease NIDDM [...]
--- OUTSIDE RECORDS SUMMARY | 2024-05-15 21:30 | XMS_ITS ---
Author Organization [facility] Address [address] [place] [address] Care Team Providers Care Liquor Inspector Name Role Phone Radha Rodriguez Primary Care Provider Jaylan Clancy Unavailable [phone] MEDICATIONS Medication SIG (Take, Route, Frequency, Duration) Notes Start Date End Date Status Pantoprazole Sodium 40 MG 1 tablet Orall y Once a day for 30 day(s) 05/26/2023 Active Encounters Encounter Location Date Provider Diagnosis [facility] [address] [place] [address] 05/26/2023 Jaylan Neal PLAN OF TREATMENT Medication Medication Name Sig Start Date Stop Date Notes Pantoprazole Sodium 40 MG 1 tablet Orall y Once a day for 30 day(s) 05/26/2023 Next Appt Details Provider Name:Jaylan Neal , 06/20/2024 01:20:00 PM, [address] [facility], [address], [place], [address],
--- OUTSIDE RECORDS SUMMARY | 2024-05-15 21:30 | XMS_ITS ---
Author Organization [facility] Address [address] [place] [address] Care Team Providers Care Cable Assembler Name Role Phone Radha Rodriguez Primary Care Provider Jaylan Clancy Unavailable [phone] REASON FOR VISIT R/S Encounters Encounter Location Date Provider Diagnosis [facility] [address] [place] [address] 01/26/2024 Jaylan Neal PLAN OF TREATMENT Next Appt Details Provider Name:Jaylan Neal , 06/20/2024 01:20:00 PM, [address], [address], [place], [address],
[2024-05-15 21:47] VITALS: BP 126/90; PULSE 81; RESP 16; TEMP 36.6; O2SAT 100
[2024-05-15 21:48] VITALS: BP 126/90; PULSE 81; RESP 16; TEMP 36.6; O2SAT 100
== END 2024-05-15 21:50 | disposition home or self-care (01) ==
PROVIDERS: Physician Assistant Medical; Emergency Provider Emergency Medicine
DX: R07.9 Chest pain, unspecified (principal); R20.2 Paresthesia of skin; R42 Dizziness and giddiness; R20.0 Anesthesia of skin; E11.9 Type 2 diabetes mellitus without complications; I10 Essential (primary) hypertension; Z03.818 Encounter for observation for suspected exposure to other biological agents ruled out
CPT/HCPCS: 0241U; 36415; 70450; 80053; 83735; 84484; 84702; 85025; 93005; 99283; 99284

== ENCOUNTER 2024-05-19 17:56 | Outpatient (REF) | payer MEDICAID, SELFPAY ==
[2024-05-19 18:15] LABS: Appearance Urine Clear; Color Urine Yellow; Glucose Urine UA Negative (Negative); Leukocyte Esterase Urine Moderate (2+) (Negative); Nitrite Urine Negative (Negative); Specific Gravity - Urine <= 1.005 (1.005-1.025); UMIC TRIGGER UACC YES; Urine Blood Trace (Negative); Urine Ketones Negative (Negative); Urine Protein Negative (Neg-Trace)
[2024-05-19 18:17] LABS: Bacteria Urine None Seen (None Seen); Hyaline Casts Urine 0-2 /LPF (0-2); UACC Culture Trigger YES
[2024-05-20 06:30] LABS: CT PCR NOT DETECTED (Not Detect.); NG PCR NOT DETECTED (Not Detect.)
== END 2024-05-19 17:57 | disposition home or self-care (01) ==
LOC: HO.CHCLNP 17:56
PROVIDERS: Visit Provider Family Medicine
DX: N89.8 Other specified noninflammatory disorders of vagina (principal); R39.9 Unspecified symptoms and signs involving the genitourinary system
CPT/HCPCS: 81001; 87086; 87491; 87591

== ENCOUNTER 2024-05-24 14:30 | Outpatient (REF) | payer MEDICAID, SELFPAY ==
[2024-05-24 16:00] LABS: MANUAL DIFF FLAG NO
[2024-05-24 16:17] LABS: Appearance Urine Turbid; Color Urine Dark Yellow; Glucose Urine UA Negative (Negative); Leukocyte Esterase Urine Trace (Negative); Nitrite Urine Negative (Negative); PH 5.5 (5.0-9.0); Specific Gravity - Urine >= 1.030 (1.005-1.025); UMIC TRIGGER UACC YES; Urine Blood Moderate (2+) (Negative); Urine Ketones Trace mg/dL (Negative); Urine Protein 30 (1+) mg/dL (Neg-Trace)
[2024-05-24 16:31] LABS: Basophils Percent Auto 0.1 % (0-2); Eosinophils Absolute Auto 0.1 X10*3/uL (0.0-0.4); Eosinophils Percent Auto 1.3 % (0-4); Hematocrit 41.1 % (37.0-47.0); Imm Gran Abs Auto 0.02 X10*3/uL (0.00-0.03); Imm Gran Pct Auto 0.3 % (0.0-0.4); Lymphocytes Absolute Auto 2.6 X10*3/uL (1.2-4.9); Lymphocytes Percent Auto 34.7 % (20-40); Mean Corpuscular HGB Conc 31.6 g/dl (31.0-35.0); Mean Corpuscular Hemoglobin 27.7 pg (27.0-33.0); Mean Corpuscular Volume 87.4 fL (80.0-98.0); Mean Platelet Volume 11.4 fL (9.4-12.3); Monocytes Absolute Auto 0.4 X10*3/uL (0.1-1.2); Monocytes Percent Auto 5.3 % (2-11); Neutrophils Absolute Auto 4.4 x10*3/uL (2.0-8.3); Neutrophils Percent Auto 58.3 % (45-73); Platelet Count 206 X10*3/uL (160-400); Red Cell Distribution Width 13.7 % (11.0-16.0); White Blood Count 7.6 X10*3/uL (4.8-10.8)
[2024-05-24 17:14] LABS: RBC Urine 0-2 /HPF (0-2); WBC Urine 0-5 /HPF (0-5)
[2024-05-24 17:15] LABS: Bacteria Urine 4+ (None Seen); Hyaline Casts Urine 0-2 /LPF (0-2)
== END 2024-05-24 14:31 | disposition home or self-care (01) ==
LOC: HO.HHCL 14:30
PROVIDERS: Visit Provider Family Medicine
DX: R10.9 Unspecified abdominal pain (principal); G89.29 Other chronic pain; R31.29 Other microscopic hematuria
CPT/HCPCS: 36415; 80048; 80076; 81001; 82150; 83690; 85025

== ENCOUNTER 2024-05-29 13:45 | Outpatient (AMB) | payer MEDICAID, SELFPAY ==
--- NOTE | 2024-05-29 13:46 | A.OFFVIS_ITS ---
Intake Visit Reasons: Post- op ESWL- follow up/US Intake Note: Patient presents today as a telehealth for a post op ESWL follow up US Meds- Flomax Blood Thinner- None Taper Machine Required: Yes Taper Machine Language: Hair Specialist Name: Emmy Ricketts [id number] Accompanied by: Self / Same As Patient Allergies pineapple Allergy (Severe, Verified 06/27/24 13:43) tongue swelling diphenhydramine [From BENADRYL] Allergy (Intermediate, Verified 06/27/24 13:43) HALLUCINATIONS morphine [MORPHINE] Allergy (Intermediate, Verified 06/27/24 13:43) DIAPHORESIS; TACHYCARDIA, palpitations, sweating, tingling of hands and face quetiapine [From SEROQUEL] Allergy (Intermediate, Verified 06/27/24 13:43) PALPITATIONS seafood Allergy (Intermediate, Verified 06/27/24 13:43) redness/itching tomato Allergy (Intermediate, Verified 06/27/24 13:43) Blister trazodone [TRAZODONE] Allergy (Intermediate, Verified 06/27/24 13:43) GI Upset, HEART RACING, palpitations prednisone [PREDNISONE] Adverse Reaction (Intermediate, Verified 06/27/24 13:43) HEART RACES HPI Comments Details: 05/29/24--patient is status post right ESWL 02/27/2024. reservations and ticketing agent utilized. The patient states she has been doing well. I reviewed renal ultrasound results 04/01/2024-to small fragments right kidney upper pole and left renal stones small no hydronephrosis. Will continue to monitor kidneys. Follow-up in [address] stone protocol prior. Review of chart: 12/30/2023--Sacha presents for telehealth follow-up. She has had intermittent right flank pain. Certified reservations and ticketing agent present. I have reviewed recent CT KUB--bilateral renal calculi right > left. Discussed risks to include but not limited to, blood in the urine, bruising to the skin, kidney hematoma, possible need for another procedure if a stone fragment obstructs the ureter while passing, possible need to repeat procedure if stone is not completely fragmented. 12/15/2023---CT KUB-- 0.4 cm nonobstructing mid right renal calculus, one additional punctate nonobstructing calculus in the lower pole of the right kidney. nonobstructing 0.3 cm mid left renal calculus. 30 minutes spent in review of records pertaining to this visit and discussion with the patient and documentation of this visit. Plan right ESWL 11/22/2023-- Sacha is a 42-year-old female who presents for follow-up, she has complaints right-sided flank pain. Renal ultrasound was done on 11/02/2023 to re-evaluate kidney stones. I have reviewed results with the patient. The patient is [place]-speaking and certified reservations and ticketing agent present. I have discussed that the renal ultrasound indicates that kidney stones on the right are larger than noted on prior CT scan of February 2023, and new stones in the left kidney. She had a KUB x-ray in September this year at which time radiopaque calcifications were not clearly visualized. The patient complains of pain from her flank towards the bladder which are intermittent. Examination right CVA tenderness. I have discussed with the patient she may be passing a stone and I will prescribe Flomax and Zofran. Naproxen p.r.n. will check a stat CT KUB. 10/04/23-- The patient is a [place]-speaking female, Certified reservations and ticketing agent present. The patient has had previous lithotripsies in the past for kidney stones. LV--Telehealth on 03/10/23?She was last seen in the office on 06/29/22. The patient reports she was seen recently for UTI symptoms at the urgent care and completed abx therapy a few days ago She denies any gross hematuria. I have discussed KUB results, limited by presence of bowel gas and stool. Plan- Continue taking vitamin B6. Recommended to use a heating pad for intermittent flank pain. She can use Tylenol or Advil as needed. Renal US. 02/24/23 -- CTAP -- small 1-2 mm stone in the upper pole of the right kidney. Nephrolithiasis Urolithiasis was diagnosed?- 2019 Prior treatment(s) include: - 10/13 ESWL right side - did have trouble passing fragments Prior imaging includes:? - 09/12 renal ultrasound with 2-3 3-4 mm stones on right kidney - 10/14/20 CT scan with small stone fragment down in right distal ureter - 11/10 - renal ultrasound no stones - 03/12? CT scan 3 mm distal stone right side mild hydro -05/29/2022 - Right kidney 3 mm stone no hydro PFSH Medical History Bilateral kidney stones T2DM (type 2 diabetes mellitus) Pain of left middle finger Left hand pain Left wrist pain Numbness and tingling in left hand De Quervain's tenosynovitis, left Skin lesion of breast Rotator cuff strain Right flank pain Abnormal stress ECG with treadmill Chest discomfort Hypertrophic scar of upper arm Shoulder pain Epidermal inclusion cyst Right kidney stone Nephrolithiasis Right shoulder strain Transaminitis GERD (gastroesophageal reflux disease) Anxiety Migraines Fatty liver Elevated cholesterol Asthma Vitamin D deficiency HLD (hyperlipidemia) HTN (hypertension) Diabetes mellitus Surgical History Skin lesion Sebaceous cyst of breast Flank pain Scar contracture History of surgical removal of skin lesion (08/27/22) H/O lithotripsy History of local excision of skin lesion History of hysterectomy (~2011) Family History Father Heart disease Mother No problems noted. Social History Are you a primary acute care surgeon to a significant other at home: No Do you presently have visiting nurse or other home services: No Alcohol intake: never Patient Tobacco Use Status: Never used Tobacco Second Hand Smoke Exposure: No Review of Systems Const All systems reviewed & are unremarkable except as noted in HPI and below Reports no additional complaints Eyes Reports no additional complaints ENT Reports no additional complaints Card Reports no additional complaints Resp Reports no additional complaints GI Reports no additional complaints Reports as per HPI Musc Reports no additional complaints Skin/Breast Reports system reviewed and no additional complaints, except as documented Neuro Reports no additional complaints Psych Reports no additional complaints Endo Reports no additional complaints Bin/Lymph Reports no additional complaints Aller/Immun Reports no additional complaints Telehealth Telehealth Telehealth Platform: Telephone Location of provider rendering services: practice address Location of patient: address on file Patient Identification confirmed using: Name, : Yes Telehealth method: voice only Patient verbally consented to treatment: Yes Patient verbally consented to billing insurance company: Yes Patient informed of any privacy concerns related to visit: Yes Minutes spent on Phone/Video with Pt.: 18 Results Reviewed Results Reviewed: Date of Service: 04/12/24 US RETROPERITONEAL COMPLETE (RENAL) CLINICAL INFORMATION: Calculus of kidney. COMPARISON: KUB 03/08/2024. CT abdomen and pelvis 12/15/2023. Renal ultrasound 11/03/2023. TECHNIQUE: Real-time imaging of the kidneys . FINDINGS: RIGHT KIDNEY: 10.2 x 4.3 x 4.1 cm (SAG x AP x TRV). The kidney is normal in size, contour, and echogenicity. Renal cortical thickness is normal. No focal parenchymal lesions. There are 2 echogenic foci seen in the right kidney to upper pole measuring 4 and 5 mm in size with twinkle artifact consistent with nonobstructing calculi. No hydronephrosis. LEFT KIDNEY: 11.0 x 4.5 x 3.3 cm (SAG x AP x TRV). The kidney is normal in size, contour, and echogenicity. Renal cortical thickness is normal. No focal parenchymal lesions. There are two mid renal echogenic foci measuring 2 and 3 mm in size consistent with nonobstructing calculi. No hydronephrosis. IMPRESSION: Bilateral nonobstructing renal calculi. Date of Service: 12/15/23 CT ABDOMEN AND PELVIS WITHOUT CONTRAST CLINICAL INFORMATION: Calculus of kidney COMPARISON: Origins of a previous study 02/24/23 TECHNIQUE: Multidetector volumetric imaging was performed from the superior aspect of the liver through the pubic symphysis. Sagittal and coronal reformatted images were obtained on the technologist's workstation. This CT examination was performed using dose optimization techniques as appropriate, variously including the following: *Automated exposure control *Adjustment of mA and/or kV according to patient size (this includes techniques or standardized protocols for targeted exams where dose is matched to indication/reason for exam; i.e. extremities or head) *Use of iterative reconstruction technique DLP: 680 mGy-cm FINDINGS: LUNG BASES: No suspicious abnormality in the visualized lower chest LIVER, GALLBLADDER, AND BILIARY TREE: There is diffuse fatty change. There is no opaque gallstone. There is no biliary dilation PANCREAS: No suspicious abnormality. SPLEEN: Normal ADRENAL GLANDS: Normal KIDNEYS AND URETERS: There is no dilation of the urinary collecting system on either side. There is a 0.4 cm nonobstructing mid right renal calculus 9.8 cm from the skin. There is at least one additional punctate nonobstructing calculus in the lower pole of the right kidney. There is a nonobstructing 0.3 cm mid left renal calculus 9.9 cm from the skin. BLADDER: The urinary bladder is essentially empty. No large abnormality demonstrated. GASTROINTESTINAL TRACT: No localized colonic wall thickening or pericolonic fat stranding. No small bowel dilation. No suspicious abnormality the stomach. No CT evidence of acute appendicitis. ABDOMINAL WALL: Trace amount of fat protruding through the plane between the lateral lower right rectus and oblique muscles with no bowel hernia. Subcutaneous fat stranding may be iatrogenic. LYMPH NODES: There are no measurably enlarged abdominal or pelvic lymph nodes. There is no significant free intraperitoneal fluid. VASCULAR: No abdominal aortic aneurysm. PELVIC VISCERA: The uterus is surgically absent. No suspicious adnexal mass or collection. OSSEOUS STRUCTURES: No suspicious focal abnormality IMPRESSION: No definite evidence of urinary obstruction. There are small nonobstructing renal calculi. Assessment & Plan Assessment & Plan (1) Bilateral kidney stones: Code(s): N20.0 - Calculus of kidney Category: Medical Plan Reviewed renal ultrasound results 04/01/2024-to small fragments right kidney upper pole and left renal stones small no hydronephrosis. Will continue to monitor kidneys. Follow-up in [address] stone protocol prior. Orders: Orders CT abdomen pelvis wo IV con 10 Months N20.0 - Calculus of kidney Patient Instructions: The patient had an opportunity to ask questions regarding treatment plan. The patient expressed understanding and agreement with the above treatment plan. The patient is aware they should contact our office by phone for worsening of their current condition or the appearance of new symptoms. Compliance is encouraged with any medications and followup testing that is ordered. It is a privilege to be allowed the opportunity to participate in the urologic care of your patient. If you have any questions or concerns regarding treatment for the above conditions please do not hesitate to contact me. The office telephone contact is [phone]. This note is constructed in part using voice recognition software. While every effort has been made to ensure accuracy retail property manager errors may have been included. Yours sincerely, Lee Winter MD Coding Level of Care Code Tele Est Pt Level 3 (63991) Diagnoses Bilateral kidney stones N20.0
--- OUTSIDE RECORDS SUMMARY | 2024-05-29 16:11 | XMS_ITS ---
Author Organization [facility] Address [address] [place] [address] Care Team Providers Care Machine Operator Slitter Technician Name Role Phone Radha Rodriguez Primary Care Provider Jaylan Clancy Unavailable [phone] REASON FOR VISIT Patient presents today for FATTY LIVER Encounters Encounter Location Date Provider Diagnosis [facility] [address] [place] [address] 01/26/2024 Jaylan Neal PLAN OF TREATMENT Next Appt Details Provider Name:Jaylan Neal , 06/20/2024 01:20:00 PM, [address], [address], [place], [address],
--- OUTSIDE RECORDS SUMMARY | 2024-05-29 16:11 | XMS_ITS | Patient Health Record ---
Author Organization [facility] Address [address] [place] [address] Care Team Providers Care Calf Skinner Name Role Phone Radha Rodriguez Primary Care Provider Jaylan Clancy Unavailable [phone] ALLERGIES Allergen (clinical drug ingredient) Drug/Non Drug [...] Referring Provider Last Name Pablo Referred Organization [facility] Referred Provider Jaylan Neal Referred Address [address],[place], [place],[address], Referred Provider Specialty Gastroentero logy General Notes Please see if a [facility] referral is on file or needed for office visit with Dr. Neal on 06-20-2024. [facility] Dawn 05/09/2024 07:44:46 AM EDT > eligible, needs referrral...Requested from [facility] Referral Priority Routine MEDICATIONS Medication SIG (Take, [...] DAILY Oral for 30 Active Vitamin A 31363 UNIT TAKE 1 CAPSULE BY M OUTH [...] Problem Epigastric abdominal pain (R10.13) Active confirmed 00209113 Problem Irritable bowel syndrome with diarrhea (K58.0) Active confirmed 212890593 Problem Elevated liver function tests (R79.89) Active confirmed Elevated liver enzymes level (918630047) Problem Fatty liver (K76.0) Active confirmed 19 2053466 Problem Gastroesophageal reflux disease, esophagitis presence not specified (K21.9) Active confirmed 620401130 Problem Abdominal pain, right upper quadrant (R10.11) Active confirmed 070189929 Encounters Encounter Location Date Provider Diagnosis [facility] [address] [place] [address] 01/26/2024 Jaylan Neal [facility] [address] [place] [id number] 01/26/2024 Jaylan Neal PLAN OF TREATMENT Pending Test Test Name Order Date BUN 12/29/2019 CREATININE 12/29/2019 LIVER PROFILE 12/29/2019 LIVER PROFILE 02/04/2020 LIVER PROFILE 04/09/2020 CBC w DIFF 12/29/2019 PROTHROMBIN TIME (PT, INR) 12/29/2019 [id number] (A1A) 12/29/2019 CAROTENE 12/29/2019 CERULOPLASMIN 12/29/2019 MITOCHONDRIAL AB 12/29/2019 SMOOTH MUSCLE ANTIBODIES 12/29/2019 VITAMIN A 12/29/2019 NUC HIDA SCAN 10/19/2017 FLUOR. ANTINUCLEAR AB SCREEN (SERGIO) 03/2020 VITAMIN D 25-OH TOTAL 12/29/2019 Future Test Test Name Order Date UPPER GI ENDOSCOPY 10/19/2017 Next Appt Details Provider Name:Jaylan Neal , 06/20/2024 01:20:00 PM, [address] [place] [address], [address], [place], [address], Insurance Providers Payer Name Payer Address Payer Phone Subscriber Number Group Number Insured Name Patient Relationship to Insured Coverage Start Date Coverage End Date MEDICAID OF [employer] [address] [place] [phone] [id number] HARMAN LEUNG Self - patient is the insured MEDICAL (GENERAL) HISTORY Medical History History ICD Code Asthma Denies NC,CVA,renal disease Migraines Anxiety, depression, bipolar disease NIDDM EGD [place] [address] Romero described as basically unremarkable--gastric biopsies were normal--no sig. HH GERD--EGD 11/2017 with ut wit h a small HH. Biopsies neg. for [...]
--- OUTSIDE RECORDS SUMMARY | 2024-05-29 16:11 | XMS_ITS ---
Author Organization [facility] Address [address] [place] [address] Care Team Providers Care Brake Repairer Hydraulic Name Role Phone Radha Rodriguez Primary Care Provider Jaylan Clancy Unavailable [phone] MEDICATIONS Medication SIG (Take, Route, Frequency, Duration) Notes Start Date End Date Status Pantoprazole Sodium 40 MG 1 tablet Orall y Once a day for 30 day(s) 05/26/2023 Active Encounters Encounter Location Date Provider Diagnosis [facility] [address] [place] [address] 05/26/2023 Jaylan Neal PLAN OF TREATMENT Medication Medication Name Sig Start Date Stop Date Notes Pantoprazole Sodium 40 MG 1 tablet Orall y Once a day for 30 day(s) 05/26/2023 Next Appt Details Provider Name:Jaylan Neal , 06/20/2024 01:20:00 PM, [address], [address], [place], [address],
--- OUTSIDE RECORDS SUMMARY | 2024-05-29 16:11 | XMS_ITS ---
Author Organization [facility] Address [address] [place] [address] Care Team Providers Care Tobacco Sampler Name Role Phone Radha Rodriguez Primary Care Provider Jaylan Clancy Unavailable [phone] REASON FOR VISIT R/S Encounters Encounter Location Date Provider Diagnosis [facility] [address] [place] [address] 01/26/2024 Jaylan Neal PLAN OF TREATMENT Next Appt Details Provider Name:Jaylan Neal , 06/20/2024 01:20:00 PM, [address], [address], [place], [address],
== END 2024-05-29 14:54 | disposition home or self-care (01) ==
LOC: HO.HUSH 13:46
PROVIDERS: Visit Provider Urology
DX: N20.0 Calculus of kidney (principal)
CPT/HCPCS: 99024

== ENCOUNTER → 2024-05-29 13:45 | Outpatient (BNVA) | payer MEDICAID, SELFPAY | PROVIDERS: Visit Provider Urology ==

== ENCOUNTER 2024-05-30 12:25 | Outpatient (REF) | payer MEDICAID, SELFPAY ==
--- NOTE | ~2024-05-30 | US_ITS ---
EXAMINATION: US ABDOMEN COMPLETE CLINICAL INFORMATION: Right upper quadrant pain after foods. COMPARISON: Renal ultrasound 04/12/2024. X-ray abdomen KUB 03/08/2024. Renal ultrasound 11/03/2023. X-ray abdomen KUB 09/27/2023. CT abdomen and pelvis 10/14/2020. TECHNIQUE: Real-time imaging of the abdominal viscera. Technically limited study secondary to body habitus. FINDINGS: PANCREAS: Limited. The visualized pancreatic head and body are normal in appearance. The remainder of the pancreas is obscured from visualization by the overlying bowel gas. ABDOMINAL AORTA: The proximal, mid, and distal segments are normal in caliber. INFERIOR VENA CAVA: Visualized portions are normal. LIVER: The liver is normal in size. The liver contour is normal. There is diffuse increased liver parenchymal echogenicity. No focal hepatic lesion. There is no intrahepatic biliary duct dilatation seen. GALLBLADDER: Normal. The gallbladder is physiologically distended without evidence of stones, sludge, polyps, wall thickening or pericholecystic fluid. COMMON BILE DUCT: Normal in caliber measuring 0.2 cm in diameter. RIGHT KIDNEY: No hydronephrosis. At the lower pole, there are echogenic foci which do not meet formal ultrasound criteria for calculi. No definite renal calculi or focal parenchymal lesions. The kidney measures 9.7 cm in maximum dimension. LEFT KIDNEY: At the interpolar aspect, 2 mm and 2 mm nonobstructing calculi are seen. No hydronephrosis or focal parenchymal lesions. The kidney measures 9.9 cm in maximum dimension. SPLEEN: Normal. The spleen measures 10.3 cm in maximum dimension. FREE FLUID: None. US/US abdomen complete IMPRESSION: 1. There is generalized increase in hepatic echotexture, consistent with fatty infiltration or hepatocellular disease. Please correlate clinically. No focal hepatic mass or intrahepatic biliary dilatation is seen. 2. Tiny nonobstructing left renal calculi are seen, as detailed. 3. Technically limited ultrasound examination of the pancreas. Electronically signed by: Lionel Malcolm MD 07/11/2024 05:04 PM [facility]
== END 2024-05-30 12:26 | disposition home or self-care (01) ==
LOC: HO.US 12:25
PROVIDERS: Visit Provider Family Medicine
DX: R10.11 Right upper quadrant pain (principal)
CPT/HCPCS: 76700

== ENCOUNTER 2024-06-06 12:46 | Outpatient (AMB) | payer MEDICAID, SELFPAY ==
--- NOTE | 2024-06-06 12:52 | MHC.OFFVIS ---
Vital Signs 06/06/24 13:12 Height 5 ft Weight 180 lb BMI 35.2 BP 129/74 Blood Pressure Location Rt brachial Position Sitting Pulse 100 Intake Visit Reasons: exc Lt br cyst Intake Note: Patient here for cyst excision on Left breast. Pharmacy Graduate Intern Required: Yes Pharmacy Graduate Intern Name: Xuan MENG Accompanied by: Self / Same As Patient Allergies pineapple Allergy (Severe, Verified 06/06/24 13:11) tongue swelling diphenhydramine [From BENADRYL] Allergy (Intermediate, Verified 06/06/24 13:11) HALLUCINATIONS morphine [MORPHINE] Allergy (Intermediate, Verified 06/06/24 13:11) DIAPHORESIS; TACHYCARDIA, palpitations, sweating, tingling of hands and face quetiapine [From SEROQUEL] Allergy (Intermediate, Verified 06/06/24 13:11) PALPITATIONS seafood Allergy (Intermediate, Verified 06/06/24 13:11) redness/itching tomato Allergy (Intermediate, Verified 06/06/24 13:11) Blister trazodone [TRAZODONE] Allergy (Intermediate, Verified 06/06/24 13:11) GI Upset, HEART RACING, palpitations prednisone [PREDNISONE] Adverse Reaction (Intermediate, Verified 06/06/24 13:11) HEART RACES Medication List - Last Reconciled 06/06/24 by Lobo Campos MD acetaminophen (Tylenol) 650 mg (2 x 325 mg) PO Q6H PRN albuterol sulfate 90 mcg/actuation 2 puffs inhalation Q4-6H PRN albuterol sulfate 2.5 mg inhalation TID PRN atorvastatin 40 mg PO DAILY blood sugar diagnostic (FreeStyle Lite Strips) As directed Test blood glucose 3x daily. blood-glucose meter (FreeStyle Lite Meter kit) As directed buspirone 10 mg PO TID cholecalciferol (vitamin D3) 50 mcg PO DAILY 30 days clonazepam 0.5 mg PO DAILY PRN docusate sodium 100 mg PO BID PRN escitalopram oxalate 20 mg PO DAILY ibuprofen 600 mg PO Q6H PRN ketorolac 10 mg PO Q8H PRN lancets (TRUEplus Lancets) 1 gauge miscellaneous QID 30 days lisinopril 5 mg PO DAILY magnesium oxide 200 mg PO DAILY metformin ER 500 mg PO DAILY metoprolol tartrate 12.5 mg (1/2 x 25 mg) PO BID naproxen 375 mg PO BID PRN pantoprazole 40 mg PO DAILY pen needle, diabetic (Novofine 32) USE ONCE DAILY DIRECTED pyridoxine (vitamin B6) 100 mg PO DAILY 90 days sennosides (Senna Laxative) 17.2 mg PO DAILY PRN sumatriptan succinate 50 mg PO ONCE tamsulosin 0.4 mg PO BEDTIME 14 days tamsulosin (Flomax) 0.4 mg PO BEDTIME terconazole 0.4% 1 appful vaginal BEDTIME tirzepatide (Mounjaro) 5 mg (0.5 mL) subcut QWEEK tramadol 50 mg PO Q8H PRN vitamin A 1 cap PO DAILY HPI Comments Details: Patient presents for excision of a symptomatic sebaceous cyst type lesion involving the left lateral mid breast. Risks, benefits, alternatives of procedure reviewed with the patient included but not limited to bleeding, infection, recurrence, numbness, pain, scarring and the patient wished to proceed. All questions answered. Consent site. [facility] Medical History Bilateral kidney stones T2DM (type 2 diabetes mellitus) Pain of left middle finger Left hand pain Left wrist pain Numbness and tingling in left hand De Quervain's tenosynovitis, left Skin lesion of breast Rotator cuff strain Right flank pain Abnormal stress ECG with treadmill Chest discomfort Hypertrophic scar of upper arm Shoulder pain Epidermal inclusion cyst Right kidney stone Skin lesion Nephrolithiasis Right shoulder strain Transaminitis GERD (gastroesophageal reflux disease) Anxiety Migraines Fatty liver Elevated cholesterol Asthma Vitamin D deficiency HLD (hyperlipidemia) HTN (hypertension) Diabetes mellitus Surgical History Sebaceous cyst of breast Flank pain Scar contracture History of surgical removal of skin lesion (08/27/22) H/O lithotripsy History of local excision of skin lesion History of hysterectomy (~2011) Family History Father Heart disease Mother No problems noted. Social History Are you a primary care transport nurse to a significant other at home: No Do you presently have visiting nurse or other home services: No Alcohol intake: never Patient Tobacco Use Status: Never used Tobacco Second Hand Smoke Exposure: No Physical Exam Vital Signs: Last Vital Signs Pulse 100 06/06/24 13:12 BP 129/74 06/06/24 13:12 BMI result Body Mass Index 35.2 Office Procedures Excision Details: After appropriate positioning, patient underwent 1% lidocaine and Betadine prep of the left lateral breast soft tissue skin lesion. A by elliptical incision encompassing the lesion in question measuring roughly 3 x 2 cm was uneventfully performed. Specimen sent to pathology. Wound was irrigated, secured hemostasis, and closed using running subcuticular 3-0 Vicryl suture followed by Steri-Strips and sterile dressings. Patient tolerated procedure well. 09551-yqqtj/arms/legs 1.1-2cm Procedure code (CPT) selection complete Office Meds lidocaine 1 %-epinephrine 1:100,000 injection solution Performing Provider: Lobo Campos MD Performing Location: [facility] [place] General Surgeons Administered by: Lobo Campos MD on 06/06/24 13:36 Dose Route Admin Location Dispensed Lot Number Expiration Date [facility] Bench Precision [employer]sembler 10 mL Infiltration 10 mL Assessment & Plan Assessment & Plan (1) Skin lesion: Code(s): L98.9 - Disorder of the skin and subcutaneous tissue, unspecified Category: Surgical Plan: Patient was been given local instructions, including avoiding strenuous activities, ice to the wound periodically, Tylenol or Motrin p.r.n. pain, may shower in 2 days removing only the outside dressing leaving Steri-Strips intact and she will see me as directed or p.r.n. Orders: Orders AMB Excision Today L98.9 - Disorder of the skin and subcutaneous tissue, unspecified Medications: New lidocaine-epinephrine 1 %-1:100,000 10 mL Infiltration ONCE 30 mL 0RF L98.9 - Disorder of the skin and subcutaneous tissue, unspecified Coding Level of Care Code Est Pt Level 5 (74800) Diagnoses Skin lesion L98.9 CPT Codes Trunk/Arms/Legs - CPT: 03958-ejurw/arms/legs 1.1-2cm ([id number])
[2024-06-06 13:12] VITALS: BP 129/74; PULSE 100; BMI 35.2
== END 2024-06-06 13:15 | disposition home or self-care (01) ==
PROVIDERS: Visit Provider Surgery
DX: L98.9 Disorder of the skin and subcutaneous tissue, unspecified (principal)
CPT/HCPCS: 11402; 99214

== ENCOUNTER 2024-06-07 16:37 | Outpatient (REF) | payer MEDICAID, SELFPAY ==
[2024-06-12 09:09] LABS: Alphahydroxymidazolam,GCMS Ur NEGATIVE; Alphahydroxytriazolam, GCMS Ur NEGATIVE; Alprazolam, GCMS Urine NEGATIVE; Aminoclonazepam, GCMS Urine NEGATIVE; Flurazepam Metabolite,GCMS Ur NEGATIVE; Lorazepam GCMS Urine NEGATIVE; Nordiazepam, GCMS Urine NEGATIVE; Oxazepam, GCMS Urine NEGATIVE; Temazepam, GCMS Urine NEGATIVE
== END 2024-06-07 16:38 | disposition home or self-care (01) ==
LOC: HO.HHCLNP 16:37
PROVIDERS: Visit Provider Registered Nurse
DX: M54.9 Dorsalgia, unspecified (principal); G89.29 Other chronic pain
CPT/HCPCS: 80346

== ENCOUNTER 2024-06-13 12:24 | Outpatient (AMB) | payer MEDICAID, SELFPAY ==
--- NOTE | 2024-06-13 12:50 | A.OFFVIS_ITS ---
Intake Visit Reasons: s/p exc Lt br cyst Intake Note: Patient here s/p cyst excision on left lateral breast. Reports incision healing well. Patient c/o: bruising and tenderness around incision. WLE/ Lt lat br: 06-06-2024. Neurodiagnostic Technologist Required: Yes Neurodiagnostic Technologist Name: Xuan MENG Accompanied by: Self / Same As Patient Allergies pineapple Allergy (Severe, Verified 06/13/24 12:53) tongue swelling diphenhydramine [From BENADRYL] Allergy (Intermediate, Verified 06/13/24 12:53) HALLUCINATIONS morphine [MORPHINE] Allergy (Intermediate, Verified 06/13/24 12:53) DIAPHORESIS; TACHYCARDIA, palpitations, sweating, tingling of hands and face quetiapine [From SEROQUEL] Allergy (Intermediate, Verified 06/13/24 12:53) PALPITATIONS seafood Allergy (Intermediate, Verified 06/13/24 12:53) redness/itching tomato Allergy (Intermediate, Verified 06/13/24 12:53) Blister trazodone [TRAZODONE] Allergy (Intermediate, Verified 06/13/24 12:53) GI Upset, HEART RACING, palpitations prednisone [PREDNISONE] Adverse Reaction (Intermediate, Verified 06/13/24 12:53) HEART RACES HPI Comments Details: Patient presents for follow-up. She has no wound issues or complaints aside from some bruising. Pathology is benign [facility] Medical History (Updated 06/06/24 @ 13:36 by Lobo Campos MD) Bilateral kidney stones T2DM (type 2 diabetes mellitus) Pain of left middle finger Left hand pain Left wrist pain Numbness and tingling in left hand De Quervain's tenosynovitis, left Skin lesion of breast Rotator cuff strain Right flank pain Abnormal stress ECG with treadmill Chest discomfort Hypertrophic scar of upper arm Shoulder pain Epidermal inclusion cyst Right kidney stone Nephrolithiasis Right shoulder strain Transaminitis GERD (gastroesophageal reflux disease) Anxiety Migraines Fatty liver Elevated cholesterol Asthma Vitamin D deficiency HLD (hyperlipidemia) HTN (hypertension) Diabetes mellitus Surgical History (Updated 06/13/24 @ 12:59 by Lobo Campos MD) Skin lesion Sebaceous cyst of breast Flank pain Scar contracture History of surgical removal of skin lesion (08/27/22) H/O lithotripsy History of local excision of skin lesion History of hysterectomy (~2011) Family History Father Heart disease Mother No problems noted. Social History Are you a primary home care chaplain to a significant other at home: No Do you presently have visiting nurse or other home services: No Alcohol intake: never Patient Tobacco Use Status: Never used Tobacco Second Hand Smoke Exposure: No Physical Exam Chest Other: Left breast incision clean dry and intact healing well. Some surrounding resolving ecchymosis Assessment & Plan Assessment & Plan (1) Postop check: Code(s): Z09 - Encounter for follow-up examination after completed treatment for conditions other than malignant neoplasm Category: Surgical Plan Patient was been given local instructions, and otherwise follow-up p.r.n. patient gets annual mammograms in August. In the interim should she develop any other issues or complaints, she is instructed to call the office will otherwise follow-up p.r.n.. All questions answered. Coding Level of Care Code Global (44381) Diagnoses Postop check Z09
== END 2024-06-13 13:08 | disposition home or self-care (01) ==
PROVIDERS: Visit Provider Surgery
DX: Z09 Encounter for follow-up examination after completed treatment for conditions other than malignant neoplasm (principal)
CPT/HCPCS: 99024

== ENCOUNTER → 2024-06-13 12:24 | Outpatient (BNVA) | payer MEDICAID, SELFPAY | PROVIDERS: Visit Provider Surgery | DX: Z09 Encounter for follow-up examination after completed treatment for conditions other than malignant neoplasm (principal) | CPT/HCPCS: 99212 ==

== ENCOUNTER 2024-06-13 14:02 | Outpatient (REF) | payer MEDICAID, SELFPAY ==
[2024-06-13 17:13] LABS: Alanine Aminotransferase 22 U/L (0-31); Albumin Level 4.3 g/dL (3.5-5.0); Alkaline Phosphatase 111 U/L (39-117); Anion Gap 14 (12-20); Aspartate Amino Transferase 41 U/L (5-31); Bilirubin Direct 0.3 mg/dL (0.0-0.5); Bilirubin Total 0.7 mg/dL (0.0-1.0); Blood Urea Nitrogen 9 mg/dL (9-16); Calcium 9.8 mg/dL (8.4-10.2); Carbon Dioxide 24 mmol/L (22-29); Chloride 110 mmol/L (96-108); Estimated Glomerular Filt Rate > 60; Glucose Random 83 mg/dL (60-115); Lipase 39 U/L (8-78); Potassium 3.7 mmol/L (3.3-5.1); Sodium 144 mmol/L (135-145); Total Protein 7.7 g/dL (6.5-8.0)
[2024-06-13 18:03] LABS: Amylase 45 U/L (28-100)
== END 2024-06-13 14:03 | disposition home or self-care (01) ==
LOC: HO.HHCL 14:02
PROVIDERS: Visit Provider Family Medicine
DX: R10.9 Unspecified abdominal pain (principal); G89.29 Other chronic pain
CPT/HCPCS: 36415; 80048; 80076; 82150; 83690

== ENCOUNTER 2024-06-27 13:21 | Outpatient (AMB) | payer MEDICAID, SELFPAY ==
--- NOTE | 2024-06-27 13:34 | MHC.OFFVIS ---
Intake Visit Reasons: umbilical bulge ? hernia Intake Note: This patient presents for umbilical mass. Pt c/o; reports she had covid about 2 weeks ago when she noticed redness and hard lump above the belly button. Print And Pattern Designer Required: Yes Print And Pattern Designer Language: Freight Broker Agent Services: Print And Pattern Designer Present Print And Pattern Designer Name: Nichol Information Interpreted: non-clinical & clinical Accompanied by: Self / Same As Patient Allergies pineapple Allergy (Severe, Verified 06/27/24 13:43) tongue swelling diphenhydramine [From BENADRYL] Allergy (Intermediate, Verified 06/27/24 13:43) HALLUCINATIONS morphine [MORPHINE] Allergy (Intermediate, Verified 06/27/24 13:43) DIAPHORESIS; TACHYCARDIA, palpitations, sweating, tingling of hands and face quetiapine [From SEROQUEL] Allergy (Intermediate, Verified 06/27/24 13:43) PALPITATIONS seafood Allergy (Intermediate, Verified 06/27/24 13:43) redness/itching tomato Allergy (Intermediate, Verified 06/27/24 13:43) Blister trazodone [TRAZODONE] Allergy (Intermediate, Verified 06/27/24 13:43) GI Upset, HEART RACING, palpitations prednisone [PREDNISONE] Adverse Reaction (Intermediate, Verified 06/27/24 13:43) HEART RACES Medication List - Last Reconciled 06/27/24 by Lobo Campos MD acetaminophen (Tylenol) 650 mg (2 x 325 mg) PO Q6H PRN albuterol sulfate 90 mcg/actuation 2 puffs inhalation Q4-6H PRN albuterol sulfate 2.5 mg inhalation TID PRN atorvastatin 40 mg PO DAILY blood sugar diagnostic (FreeStyle Lite Strips) As directed Test blood glucose 3x daily. blood-glucose meter (FreeStyle Lite Meter kit) As directed buspirone 10 mg PO TID cephalexin 500 mg PO TID cholecalciferol (vitamin D3) 50 mcg PO DAILY 30 days clonazepam 0.5 mg PO DAILY PRN docusate sodium 100 mg PO BID PRN escitalopram oxalate 20 mg PO DAILY ibuprofen 600 mg PO Q6H PRN ketorolac 10 mg PO Q8H PRN lancets (TRUEplus Lancets) 1 gauge miscellaneous QID 30 days lisinopril 5 mg PO DAILY magnesium oxide 200 mg PO DAILY metformin ER 500 mg PO DAILY metoprolol tartrate 12.5 mg (1/2 x 25 mg) PO BID naproxen 375 mg PO BID PRN pantoprazole 40 mg PO DAILY pen needle, diabetic (Novofine 32) USE ONCE DAILY DIRECTED pyridoxine (vitamin B6) 100 mg PO DAILY 90 days sennosides (Senna Laxative) 17.2 mg PO DAILY PRN sumatriptan succinate 50 mg PO ONCE tamsulosin 0.4 mg PO BEDTIME 14 days tamsulosin (Flomax) 0.4 mg PO BEDTIME terconazole 0.4% 1 appful vaginal BEDTIME tirzepatide (Mounjaro) 5 mg (0.5 mL) subcut QWEEK tramadol 50 mg PO Q8H PRN vitamin A 1 cap PO DAILY HPI Comments Details: Patient presents with a 2 week history of pain, swelling, redness just above her umbilicus. She has never had this before. She had a history of an umbilical jewelry but has not had this in for over a year. Patient presents here for further evaluation . she is known to me from prior visit Chart was reviewed and patient evaluated [facility] Medical History (Updated 06/06/24 @ 13:36 by Lobo Campos MD) Bilateral kidney stones T2DM (type 2 diabetes mellitus) Pain of left middle finger Left hand pain Left wrist pain Numbness and tingling in left hand De Quervain's tenosynovitis, left Skin lesion of breast Rotator cuff strain Right flank pain Abnormal stress ECG with treadmill Chest discomfort Hypertrophic scar of upper arm Shoulder pain Epidermal inclusion cyst Right kidney stone Nephrolithiasis Right shoulder strain Transaminitis GERD (gastroesophageal reflux disease) Anxiety Migraines Fatty liver Elevated cholesterol Asthma Vitamin D deficiency HLD (hyperlipidemia) HTN (hypertension) Diabetes mellitus Surgical History (Updated 06/27/24 @ 13:48 by Lobo Campos MD) Skin lesion Sebaceous cyst of breast Flank pain Scar contracture History of surgical removal of skin lesion (08/27/22) H/O lithotripsy History of local excision of skin lesion History of hysterectomy (~2011) Family History Father Heart disease Mother No problems noted. Social History Are you a primary transition of care specialist to a significant other at home: No Do you presently have visiting nurse or other home services: No Alcohol intake: never Patient Tobacco Use Status: Never used Tobacco Second Hand Smoke Exposure: No Physical Exam GI Other: Abdomen Meño, soft, benign. Patient has some induration and erythema above the umbilicus consistent with a resolving inflammatory process. No fluctuance at this time. Mildly tender to palpation Assessment & Plan Assessment & Plan (1) Blister of abdominal wall with infection: Code(s): S30.821A - Blister (nonthermal) of abdominal wall, initial encounter; L08.9 - Local infection of the skin and subcutaneous tissue, unspecified Category: Surgical Plan Current plan is to attempt conservative therapy in the form of antibiotics and local wound care with warm compresses she will see me in few days' time for follow-up. Should this process progressively worsened, patient may require I&D. She understands and will see me as directed. All questions answered. Medications: New cephalexin 500 mg PO TID 30 caps 0RF Coding Level of Care Code Est Pt Level 4 (90560) Diagnoses Blister of abdominal wall with infection S30.821A; L08.9
== END 2024-06-27 13:45 | disposition home or self-care (01) ==
LOC: HO.HGS 13:22
PROVIDERS: Visit Provider Surgery
DX: S30.821A Blister (nonthermal) of abdominal wall, initial encounter (principal); L08.9 Local infection of the skin and subcutaneous tissue, unspecified
CPT/HCPCS: 99214

== ENCOUNTER → 2024-06-27 13:21 | Outpatient (BNVA) | payer MEDICAID, SELFPAY | PROVIDERS: Visit Provider Surgery | DX: S30.821A Blister (nonthermal) of abdominal wall, initial encounter (principal); L08.9 Local infection of the skin and subcutaneous tissue, unspecified; X58.XXXA Exposure to other specified factors, initial encounter; Y93.9 Activity, unspecified; Y92.9 Unspecified place or not applicable; Y99.9 Unspecified external cause status | CPT/HCPCS: 99212 ==

== ENCOUNTER 2024-07-04 12:49 | Outpatient (AMB) | payer MEDICAID, SELFPAY ==
--- NOTE | 2024-07-04 12:57 | A.OFFVIS_ITS ---
Vital Signs 07/04/24 13:02 Height 5 ft Weight 180 lb BMI 35.2 BP 127/80 Blood Pressure Location Rt brachial Position Sitting Pulse 92 Intake Visit Reasons: 1 week follow-up, wound check Intake Note: Patient here for umbilical lesion check. Finished Cephalexin course. Patient c/o: pain with touch, rubs on pant waistline. Feels like a hard bump. Timber Deadener Required: No Accompanied by: Self / Same As Patient Allergies pineapple Allergy (Severe, Verified 07/04/24 13:04) tongue swelling diphenhydramine [From BENADRYL] Allergy (Intermediate, Verified 07/04/24 13:04) HALLUCINATIONS morphine [MORPHINE] Allergy (Intermediate, Verified 07/04/24 13:04) DIAPHORESIS; TACHYCARDIA, palpitations, sweating, tingling of hands and face quetiapine [From SEROQUEL] Allergy (Intermediate, Verified 07/04/24 13:04) PALPITATIONS seafood Allergy (Intermediate, Verified 07/04/24 13:04) redness/itching tomato Allergy (Intermediate, Verified 07/04/24 13:04) Blister trazodone [TRAZODONE] Allergy (Intermediate, Verified 07/04/24 13:04) GI Upset, HEART RACING, palpitations prednisone [PREDNISONE] Adverse Reaction (Intermediate, Verified 07/04/24 13:04) HEART RACES HPI Comments Details: Patient presents for follow-up for her umbilical blister/wound. She has had some improvement. Patient completed her antibiotic course [facility] Medical History Bilateral kidney stones T2DM (type 2 diabetes mellitus) Pain of left middle finger Left hand pain Left wrist pain Numbness and tingling in left hand De Quervain's tenosynovitis, left Skin lesion of breast Rotator cuff strain Right flank pain Abnormal stress ECG with treadmill Chest discomfort Hypertrophic scar of upper arm Shoulder pain Epidermal inclusion cyst Right kidney stone Nephrolithiasis Right shoulder strain Transaminitis GERD (gastroesophageal reflux disease) Anxiety Migraines Fatty liver Elevated cholesterol Asthma Vitamin D deficiency HLD (hyperlipidemia) HTN (hypertension) Diabetes mellitus Surgical History Skin lesion Sebaceous cyst of breast Flank pain Scar contracture History of surgical removal of skin lesion (08/27/22) H/O lithotripsy History of local excision of skin lesion History of hysterectomy (~2011) Family History Father Heart disease Mother No problems noted. Social History Are you a primary critical care unit manager to a significant other at home: No Do you presently have visiting nurse or other home services: No Alcohol intake: never Patient Tobacco Use Status: Never used Tobacco Second Hand Smoke Exposure: No Physical Exam Vital Signs: Last Vital Signs Pulse 92 07/04/24 13:02 BP 127/80 07/04/24 13:02 BMI result Body Mass Index 35.2 GI Other: Umbilical inflammatory area is status quo. No evidence of any fluctuance or discharge. Most cellulitis. Assessment & Plan Assessment & Plan (1) Skin lesion: Code(s): L98.9 - Disorder of the skin and subcutaneous tissue, unspecified Category: Surgical Plan At present, we will continue conservative therapy. Patient was to apply warm compresses whenever she can to the area. She will see me for follow-up as directed or p.r.n.. Coding Level of Care Code Est Pt Level 3 (35561) Diagnoses Skin lesion L98.9
[2024-07-04 13:02] VITALS: BP 127/80; PULSE 92; BMI 35.2
== END 2024-07-04 13:07 | disposition home or self-care (01) ==
PROVIDERS: Visit Provider Surgery
DX: L98.9 Disorder of the skin and subcutaneous tissue, unspecified (principal)
CPT/HCPCS: 99213

== ENCOUNTER → 2024-07-04 12:49 | Outpatient (BNVA) | payer MEDICAID, SELFPAY | PROVIDERS: Visit Provider Surgery | DX: Z09 Encounter for follow-up examination after completed treatment for conditions other than malignant neoplasm (principal); L98.9 Disorder of the skin and subcutaneous tissue, unspecified | CPT/HCPCS: 99212 ==

== ENCOUNTER 2024-07-31 17:55 | Outpatient (REF) | payer MEDICAID, SELFPAY ==
[2024-08-03 11:33] LABS: Alphahydroxymidazolam,GCMS Ur NEGATIVE; Alphahydroxytriazolam, GCMS Ur NEGATIVE; Alprazolam, GCMS Urine NEGATIVE; Aminoclonazepam, GCMS Urine NEGATIVE; Flurazepam Metabolite,GCMS Ur NEGATIVE; Lorazepam GCMS Urine NEGATIVE; Nordiazepam, GCMS Urine NEGATIVE; Oxazepam, GCMS Urine NEGATIVE; Temazepam, GCMS Urine NEGATIVE
== END 2024-07-31 17:56 | disposition home or self-care (01) ==
LOC: HO.HHCLNP 17:55
PROVIDERS: Visit Provider Registered Nurse
DX: M54.9 Dorsalgia, unspecified (principal); G89.29 Other chronic pain
CPT/HCPCS: 80346

== ENCOUNTER 2024-09-25 13:19 | Outpatient (REF) | payer MEDICAID, SELFPAY ==
--- OUTSIDE RECORDS SUMMARY | 2024-09-25 14:35 | XMS_ITS | Encounter Summary ---
Author Organization [employer] Address [address] [place] [address] Care Team Providers Care Leasing Consultant Name Role Phone Marc Nicolas Primary Care Provider Unavail able Radha Shah SEO STRATEGIST Primary Care Provider [phone] Colby Hirsch Unavailable Unavailable [facility] SEO STRATEGIST Primary Care Provider [phone] Reason for Visit * Reason Onset Date Comments Results 04/09/2023 Encounter Details Date Type Department Care Team (Late st Contact Info) Description 04/09/2023 Telephone [facility] MEDICINE [address] [place] [address] Marc Nicolas AGNP Results Social History Tobacco Use Types Packs/Day Years Used Date Smoking Tobacco: Never Passive Smoke Exposure: Never Smokeless Tobacco: Never Alcohol Use Standard Drinks/Week Comments Never 0 (1 standard drink = 0.6 oz pur e alcohol) PHQ-2 Answer Date Recorded Patient Health Questionnaire-2 Score 0 04/02/2023 Depression Answer Date Recorded Patient Health Questionnaire-9 Score 0 04/02/2023 Comments No Sex and Gender Information Value Date Recorded Sex Assigned at Female 06/22/2022 10:14 AM EDT Legal Sex Female 10:14 AM EDT Gender Identity Female 06/22/2022 10:14 AM EDT Sexual Orientation Choose not to disclose 2021 10:14 AM EDT documented as of this encounter Miscellaneous Notes * Telephone Encounter - Laura Adame RN - 04/30/2023 11:58 AM EDT FYI T/C to pt. Through [employer] id - [id number] for below message. Pt. States she is having apt. With Dr. Sims on 05/03/2023 and wants to discuss on that day. Pt. Advised to give call back on [phone] if any questions or concerns. Pt. Verbally agreed and understood. Please review and advise if needed. * Telephone Encounter - Romeo Child - 04/09/2023 12:19 PM EDT Tc from pt requesting status on results for Liver that were done a moth ago pt states. Please contact pt at [phone] Georgian Speaker documented in this encounter Plan of Treatment Upcoming Encounters Date Type Department Care Team (Late st Contact Info) Description 10/12/2024 2:00 PM EST Office Visit [facility] ADULT DENTAL [address] [place] [address] Phillip Borrego, DMD [address] [place] [address] 10/23/2024 1:00 PM EST Office Visit [facility] MEDICINE [address] [place] [id number] Yecenia Frias FNP [address] [place] [address] 10/24/2024 1:00 PM EST Clinical Support [address] [address] Kira Bansal, MEREDITH documented as of this encounter Visit Diagnoses Not on filedocumented in this encounter Additional Health Concerns Assessment Noted Time PHQ-9 Depression Total Score: 0 04/02/20 23 2:10 PM EDT documented as of this encounter Care Teams Leasing Consultant Relationship Specialty Start Date End Date Marc Nicolas AGNP PCP - General Family Medicine 10/22/22 04/20/23 Radha Shah FNP [address] [place] [address] PCP - General Family Medicine 04/21/23 04/25/24 AltagraciaYecenia whipple FNP [address] [place] [address] PCP - General Family Medicine 04/26/24 Colby Hirsch FNP [address] [place] [address] Nurse Practitioner Family Medicine 07/13/23 Candice Ugarte Learning Support Resource Room TeacherMilk Tanker Driver 12/27/23 documented as of this encounter
--- OUTSIDE RECORDS SUMMARY | 2024-09-25 14:35 | XMS_ITS | Encounter Summary ---
Author Organization [email or web address] Address [address] [facility] [place] [address] Care Team Providers Care Muleser Name Role Phone Marc Nicolas Primary Care Provider Unavail able Radha Shah COUNTRY SALES MANAGER Primary Care Provider [phone] Colby Hirsch Unavailable Unavailable [facility] COUNTRY SALES MANAGER Primary Care Provider [phone] Reason for Visit * Reason Onset Date Comments Med Refill 04/16/2023 Encounter Details Date Type Department Care Team (Late st Contact Info) Description 04/16/2023 Telephone [facility] MEDICINE [address] [place] [address] Marc Nicolas AGNP Med Refill Social History Tobacco Use Types Packs/Day Years Used Date Smoking Tobacco: Never Passive Smoke Exposure: Never Smokeless Tobacco: Never Alcohol Use Standard Drinks/Week Comments Never 0 (1 standard drink = 0.6 oz pur e alcohol) Depression Answer Date Recorded Patient Health Questionnaire-9 Score 7 03/07/2024 Patient Health Questionnaire-9 Score 7 03/07/2024 Last PHQ-9: Questionnaire Data Not on file 0 03/07/2024 Housing Stability Answer Date Recorded What is your housing situation today? I do not have housing (Staying with others, in a hotel, in a long-term, living outside on the street, on a beach, in a car, or in a park 07/25/[address] you li ve. Do you have problems with any of the following? None of the above 07/25/2024 Food Insecurity Answer Date Recorded Within the past 12 months, y ou worried that your food would run out before you got money to buy more: Sometimes True 2023 Within the past 12 months,th e food you bought just didn't last and you didn't have enough money to get more: Sometimes True 03/01/2024 Transportation Answer Date Recorded In the past 12 months, has l ack of transportation kept you from medical appts, meetings, work or from getting things needed for daily living? No 07/25/2024 Utilities Answer Date Recorded In the past 12 months, has t he electric, gas, oil or water company threatened to shut off services in your home? No 03/01/2024 Depression Answer Date Recorded Patient Health Questionnaire-2 Score 2 03/07/2024 Internet Access Answer Date Recorded Internet Access Q1 Yes 07/25/2024 Internet Access Q2 I do not want or need it 10/2023 Comments No Sex and Gender Information Value Date Recorded Sex Assigned at Female 06/22/2022 10:14 AM EDT Legal Sex Female 10:14 AM EDT Gender Identity Female 06/22/2022 10:14 AM EDT Sexual Orientation Choose not to disclose 2021 10:14 AM EDT documented as of this encounter Miscellaneous Notes * Telephone Encounter - James Sawyer - 04/16/2023 11:44 AM EDT Tc from pt requesting a refill for traMADol (Ultram) 50 MG tablet documented in this encounter Plan of Treatment Upcoming Encounters Date Type Department Care Team (Late st Contact Info) Description 10/12/2024 2:00 PM EST Office Visit [facility] ADULT DENTAL [address] [place] [address] Phillip Borrego, DMD [address] [place] [address] 10/23/2024 1:00 PM EST Office Visit [facility] MEDICINE [address] [place] [id number] Yecenia Frias FNP [address] [place] [address] 10/24/2024 1:00 PM EST Clinical Support [address] [address] Kira Bansal, RN documented as of this encounter Visit Diagnoses Not on filedocumented in this encounter Additional Health Concerns Assessment Noted Time PHQ-9 Depression Total Score: 0 04/02/20 2:10 PM EDT documented as of this encounter Care Teams Muleser Relationship Specialty Start Date End Date Marc Nicolas AGNP PCP - General Family Medicine 10/22/22 04/20/23 Radha Shah FNP [address] [place] [id number] PCP - General Family Medicine 04/21/23 04/25/24 Yecenia Frias FNP [address] [place] [id number] PCP - General Family Medicine 04/26/24 Colby Hirsch FNP [address] [place] [id number] Nurse Practitioner Family Medicine 07/13/23 Candice Ugarte Metal Ceiling HangerDepartment Mgr 12/27/23 documented as of this encounter
--- OUTSIDE RECORDS SUMMARY | 2024-09-25 14:35 | XMS_ITS | Clinical Summary ---
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 Communications Operator Name Role Phone Colby Hirsch OFFICE EQUIPMENT MECHANIC Unavailable Unavailable [facility] OFFICE EQUIPMENT MECHANIC Primary Care Provider [phone] Allergies Active Allergy Reactions Criticality Noted Date Comments Diphenhydramine Unknown 09/29/2013 Morphine Palpitations,Unknown Low 08/19/2010 Pineapple Anaphylaxis High 02/17/2023 Quetiapine Palpitations Low 05/29/2016 Other reaction(s): numbing of hands, Unknown Shellfish Allergy Unknown 12/08/2020 Tomato 07/31/2022 Trazodone Palpitations,Unknown Low 04/22/2015 Other reaction(s): severe anxiety Medications * This document contains information received from the source organization and may not represent a complete record from that organization. albuterol (2.5 MG/3ML) 0.083% nebulizer solution inhale 3 milliliter by nebulization route 3 times every day prn wheezing/dyspne a 021 Active albuterol 108 (90 Base) MCG/ACT inhaler inhale 2 puff by inhalation route every 4 - 6 hours as needed prn wheezing/dyspne a 022 Active SUMAtriptan (Imitrex) 50 MG tablet Take 1 tablet by mouth. 022 Active riboflavin (Vitamin B-2) 400 MG tablet Take 1 tablet via oral route daily 021 Active polyethylene glycol, PEG, 3350 (Glycolax) 17 GM/SCOOP powder take (17G) by oral route every day mixed with 8 oz. water, juice, soda, coffee or tea 020 Active Misc. Devices (Pulse Oximeter For Finger) misc -Check pulse and oxygen daily and prn Active magnesium 200 MG tablet Take 1 tablet via oral route daily. Active loperamide (Imodium A-D) 2 MG tablet 1 tab PO q4h prn diarrhea Active fluticasone (Flonase) 50 MCG/ACT nasal spray USE 1-2 SPRAYS IN EACH NOSTRIL IN THE MORNING SHAKE GENTLY 48 g Active atorvastatin (Lipitor) 40 MG tablet Take 1 tablet by mouth Once daily. 023 Active Novofine Pen Needle 32G X 6 MM misc USE ONCE DAILY DIRECTED Active Lancets (Unilet Micro-Thin 33G) misc USE FOUR TIMES DAILY TO TEST BLOOD SUGAR Active pyridoxine (Vitamin B-6) 100 MG tablet Take 1 tablet by mouth in the morning. 023 Active cetirizine (ZyrTEC) 10 MG tablet TAKE 1 TABLET BY MOUTH EVERY MORNING 90 tablet 1 023 Active Diclofenac Sodium 1 % gelIndications: Pain of left thumb Apply once a day on the affected hand 100 g 1 024 Active omeprazole (PriLOSEC) [address] capsule Take 1 capsule (40 mg) by mouth before breakfast. Do not crush or chew. 90 capsule 3 024 2024 Active docusate sodium (Colace) 100 MG capsuleIndicati ons:Constipatio n, unspecified constipation type TAKE 1 CAPSULE BY MOUTH TWICE DAILY 180 capsule 1 Active naloxone (Narcan) 4 mg/0.1 mL nasal spray Administer 1 spray (4 mg) into affected nostril(s) if needed for opioid reversal. May repeat every 2-3 minutes if needed, alternating nostrils, until medical assistance becomes available. 2 each 024 2024 Active naloxone (Narcan) 4 mg/0.1 mL nasal spray FOR SUSPECTED OPIOID OVERDOSE. SPRAY 0.1mL IN ONE NOSTRIL. REPEAT IN ALTERNATE NOSTRIL 2-3 MINUTES IF NEEDED. SEEK MEDICAL ATTENTION IMMEDIATELY EVEN IF PATIENT RESPONDS. 2 each 1 024 Active Bisacodyl EC 5 MG EC tablet TAKE 1 TABLET BY MOUTH EVERY DAY NEEDED FOR CONSTIPATION. DO NOT BREAK, CRUSH, DISSOLVE OR CHEW. 30 tablet 024 Active insulin pen needle (UltiGuard SafePack Pen Needle) 29G x 12.7mm misc Use as instructed 100 each 12 024 2024 Active metFORMIN XR (Glucophage-XR) 500 MG 24 hr tabletIndicatio ns:Type 2 diabetes mellitus without complication, with long-term current use of insulin (CMS/[facility]ER[facility]) TAKE 1 TABLET BY MOUTH EVERY DAY WITH DINNER 90 tablet 1 024 Active D3 Super Strength 50 MCG (2000 UT) capsule TAKE 1 CAPSULE BY MOUTH DAILY IN THE MORNING 90 capsule 3 024 Active Blood Pressure kit 1 kit 2 times daily. 1 kit 024 2024 Active glucose blood test stripIndication s:Type 2 diabetes mellitus without complication, with long-term current use of insulin (CMS/[facility]) 1 each by Other route 2 times daily. 100 each 12 024 Active beta carotene (vitamin A) 3 MG (78669 UT) capsule TAKE 1 CAPSULE BY MOUTH EVERY MORNING 90 capsule 1 024 Active ibuprofen 600 MG tabletIndicatio ns:COVID-19,Acu te right otitis media Take 1 tablet (600 mg) by mouth every 8 (eight) hours if needed for mild pain. 90 tablet 3 024 Active clotrimazole (Lotrimin) 1 % vaginal creamIndication s:Vulvovaginal Candidiasis Insert one applicator per vagina at bedtime for 7 nights 45 g 024 Active Tirzepatide 2.5 MG/0.5ML solution auto-injectorIn dications:Type 2 diabetes mellitus without complication, with long-term current use of insulin ([facility]) Inject 2.5 mg under the skin 1 (one) time per week. 2 mL 3 024 2024 Active budesonide-form oterol (Symbicort) 80-4.5 MCG/ACT inhalerIndicati ons:Mild intermittent asthma without complication Inhale 2 puffs every 4-6 hours as needed for wheezing, shortness of breath 1 each 11 024 Active mirtazapine (Remeron) 7.5 MG tabletIndicatio ns:Major depression with psychotic features (CMS/HCC) Take 1 tablet (7.5 mg) by mouth at bedtime. 30 tablet 1 024 Active risperiDONE (RisperDAL) 2 MG tabletIndicatio ns:Major Depressive Disorder Take 1 tablet (2 mg) by mouth at bedtime. 30 tablet 1 024 Active Blood Glucose Monitoring Suppl (FreeStyle Lite) w/Device kitIndications: Type 2 diabetes mellitus without complication, with long-term current use of insulin (CMS/HCC) 1 Device 2 times daily. 1 kit 024 Active acetaminophen (Tylenol 8 Hour) 650 MG ER tabletIndicatio ns:Arthralgia, unspecified joint TAKE 1 TABLET BY MOUTH EVERY 6 HOURS NEEDED 60 tablet 1 025 Active traMADol (Ultram) 50 MG tabletIndicatio ns:Multiple joint pain Take 1 tablet (50 mg) by mouth every 12 (twelve) hours if needed for severe pain for up to 28 days. Do not start before September 05, 2024. 56 tablet 025 2024 Active famotidine (Pepcid) 20 MG tabletIndicatio ns:Gastroesopha geal reflux disease with esophagitis without hemorrhage Take 1 tablet (20 mg) by mouth 2 times daily. 60 tablet 11 025 2025 Active traMADol (Ultram) 50 MG tabletIndicatio ns:Multiple joint pain Take 1 tablet (50 mg) by mouth every 12 (twelve) hours if needed for severe pain for up to 28 days. Do not start before August 08, 2024. 56 tablet 024 2024 Discontinued(R eorder (will not trigger notification to Pharmacy)) acetaminophen (Tylenol 8 Hour) 650 MG ER tabletIndicatio ns:Arthralgia, unspecified joint take 1 tablet by oral route every 6 hours as needed swallowing whole with water as needed for arthritis pain 60 tablet 1 024 2024 Discontinued Active Problems Problem Noted Date Diagnosed Date Chest pain, atypical 09/25/2024 Sleep apnea 09/25/2024 Shortness of breath 09/25/2024 Microscopic hematuria 05/24/2024 Assessment & Plan (05/24/2024 2:25 PM EDT): 3-5 RBC and 5-10 WBC, likely due to yeast infection -will reordering UA 05/24/24 Urinary tract infection symptoms 05/19/2024 Vaginal itching 05/19/2024 Assessment & Plan (05/19/2024 2:08 PM EDT): UA showed moderate blood and some nitrites. -Wet prep with NAPOLEON significant for hyphae and budding yeast. -Candidiasis prevention discussed. -Will treat with clotrimazole cream. Candidiasis 05/19/2024 Assessment & Plan (05/19/2024 2:45 PM EDT): -Wet prep with NAPOLEON significant for hyphae and budding yeast. -Candidiasis prevention discussed. RUQ pain 05/09/2024 Assessment & Plan (05/09/2024 3:29 PM EDT): Had CT ABD done 11/2023 that showed diffuse fatty change, no opaque gallstones. Otherwise normal. 05/09/24 pt reports x1 month of RUQ pain, nausea in the mornings and diarrhea every time she eats. -ordered abdominal US and labs 05/09/24 -discussed ER precautions. Asthma 03/16/2024 Back pain 03/16/2024 Fatty liver 03/16/2024 Left ovarian cyst 03/16/2024 Obesity 03/16/2024 Opioid dependence 03/16/2024 Urinary frequency 03/16/2024 Venous insufficiency (chronic) (peripheral) 02/21 Hearing loss of right ear 03/03/2024 Assessment & Plan (03/03/2024 2:11 PM EDT): Reduced hearing right ear, no trigger or constitutional symptoms. Exam reassuring, referral to ENT. Elevated blood pressure reading 03/03/2024 Assessment & Plan (03/03/2024 2:12 PM EDT): Pt has home bp cuff, reports holding meds before todays visit at surgeons recommendation. Monitor for symptoms. Resume meds as soon as is cleared to. 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 Assessment & Plan (05/03/2023 1:29 PM EDT): 2-3 months of ongoing superficial discomfort over left side of mid abdomen where has scar Examination is benign w no masses palpated Pt can not recall surgery with port if entry to be there -does have hx of hysterectomy -will refer today for abd wall US to r/o any underneath lesions --pt has apt w PCP to start care already for next month -can follow image then but will call pt if relevant abnormalities are found -advised to avoid tight cloths Night terror 04/05/2023 Assessment & Plan (04/05/2023 11:14 AM EDT): Reports waking from night terrors for the last month or so. Most nights. Attempting prazosin. Patient to RTC PRN if symptoms worsen or fail to improve. Major depression with psychotic features 023 Assessment & Plan (06/10/2023 9:14 AM EDT): Sacha reports feeling little pleasure doing things, feeling down, trouble sleeping, lack of energy, poor appetite, trouble concentrating, moving or speaking slowly. She also reports, feeling anxious, unable to control worry, worrying about different things, trouble relaxing. Sacha is currently on the waitlist for [facility]. She was informed to call next month for an update. Sacha has my number, if symptoms exacerbate she agrees to reach out if needed. PHQ9: 18 GAD7: 12 At this time Sacha Rodriguez meets criteria for Visit Diagnoses: Problem List Items Addressed This Visit Other Anxiety disorder, unspecified Mood disorder (CMS/HCC) Major depression with psychotic features (CMS/HCC) Schizoaffective disorder, depressive type (CMS/HCC) Patient ready to address current needs Yes Strengths include awareness of symptoms, coping skills, support system PLAN: 1. Follow up with [facility]: Not recommended for follow-up 2. Patient goal is to manage symptoms 3. Behavioral Recommendations a. F/U with CC b. Reach out for support Ext. [phone] c. Keep appointment with Colby Hirsch Assessment & Plan (01/21/2023 10:21 AM EDT): Assessment: Romaine was engaged with active reflective listening and open-ended questions. Assessed symptoms, risks, and social supports with direct questions. Discussed current symptoms intensity and frequency. Emotions were normalized and validated. Sacha identified music and walks as coping mechanisms and her as protective factors. Provided psychoeducation around coping mechanism to manage sxs, provided her with [facility] Crisis number for after hrs support. She was previously referred by [facility] on January 15 for OP services for Ind. Therapy and Medication Management. Provided education around integrated medicine and the options of follow up BE's as needed. Provided contact information should questions or concerns arise. Plan: Sacha will continue to engage in effective coping mechanisms of that has work for her, she will also try new coping skills discussed in session. She will contact [facility] crisis number as needed. Patient with nervousness, hx of SI attempts 3 years ago , endorse AH with commands, crying spells, isolation, insomnia, poor appetite. Reported she takes walks, listen gospel music and prays to quit the voices and also le there know when the voices stars. She denies SI, HI, or self-harm at this time. At this time Sacha Rodriguez meets criteria for Visit Diagnoses: Problem List Items Addressed This Visit Other Major depression with psychotic features (CMS/HCC) RESOLVED: Major depressive disorder, single episode with psychotic features with peripartum onset, unspecified trimester (CMS/HCC) Patient ready to address current needs Yes Strengths include willing to enagge in services PLAN: 1. Follow up with [facility]: Not recommended for follow-up 2. Patient goal is become mentally stable. 3. Behavioral Recommendations a. Ind. Therapy b. Medication Management c. Continue with coping mechanisms Schizoaffective disorder, depressive type 2022 Overview (02/17/2023): Diagnostic evaluation per DSM5: She displays a low mood (depressed mood) and Negative symptoms (diminshed emotional expression). DDx: Schizophrenia (hallucinations + negative symptoms), Schizoaffective disorder depressive type no catatonic features present Assessment & Plan (04/08/2023 3:11 PM EDT): Patient reports no concerns today. She feels managed. She does not want to up titrate her risperidone today. I agree with patient. F/up 2 months. Referral placed to for psychopharmacology. Assessment & Plan (03/05/2023 3:39 PM EDT): PHQ9 = 13. She likes the risperidone, she feels its helping. She went from hearing voices everyday to now its around 3 times a week. She does not want to increase her risperidone today. We will f/up in one month. Assessment & Plan (02/17/2023 4:04 PM EDT): PHQ9: 12 today, improvement from 14, 4 weeks ago. Patient reports risperidone seems to be helping some. We will increase her risperidone to 1 mg daily and have her f/up in 2 weeks. Assessment & Plan (01/21/2023 12:02 PM EDT): Patient reports 3 episodes since she was 16 or 17 years old of auditory hallucinations. They have lasted a few months to a year. Her current episode has been between one and two months long. Her auditory hallucinations command her to cut her body . She also reports depression and anxiety She displays a low mood (depressed mood) and Negative symptoms (dimiinshed emotional expression) today. DDx: Schizophrenia (hallucinations + negative symptoms), Schizoaffective disorder depressive type no catatonic features present today. I will follow up with this patient in one week to continue to work on their diagnosis and titrate medications if appropriate. Possibly increase risperidone from 0.5 mg once henry to 0.5 mg BID. Start to taper patient off of Lexapro. Lump of skin of left upper extremity 12/25/2022 Assessment & Plan (12/25/2022 4:53 PM EDT): Patient denies fever. Ddx: nexplanon part remaining, Sent to general surgery. COVID-19 07/14/2022 Fatty stool 07/14/2022 Food insecurity 07/14/2022 Essential hypertension 06/03/2022 Assessment & Plan (04/05/2023 4:33 PM EDT): Clinic BP 125/87 normal. Patiens at home BP readings are not within JNC8 guidelines. She averages 125/95. Increasing losartan to 25 mg PO BID. Diastolic ranging from 79 to 100 but generally in the 90s. ED precautions advised. Assessment & Plan (03/05/2023 3:35 PM EDT): BP 125/76 today Changing lisinopril to losartan and increasing to 25 mg. Patient to continue to log Bps and F/up in one month. Counseled low-salt diet, advised increase in exercise to 30 min/ day most days, weight loss if applicable. Call clinic for high BP >170/90 or low <90/60. Assessment & Plan (02/17/2023 4:06 PM EDT): Patients BP elevated today 140/89. Patient reports having BP cuff at home. She will log her BP twice and day and report back in 2 weeks with results. I am doing a medication reconciliation at her next visit so if medication is needed to control her BP by JNC8 guidelines I will choose that after reconciling her current med list. Vitamin A deficiency 07/24/2019 Assessment & Plan (02/17/2023 3:07 PM EDT): Unable to locate the origin of this diagnosis. Ordering vitamin a lab. Patient currently taking beta carotene 3 mg daily. Palpitations 06/30/2019 Assessment & Plan (04/05/2023 11:12 AM EDT): Patient reports nightmares that wake her up. She reports feeling palpitations when she wakes like this. Denies palpitations in clinic. Referral to cardiology. Insomnia 01/30/2019 Depression with anxiety 01/05/2019 Assessment & Plan (01/15/2023 3:00 PM EDT): Assessment: Patient with anxiety, (difficult to control worry, nervousness) and panick attacks (periods of shaking, chest pain, and uncontrollable crying) in the context of biopsychosocial stressors of lack of transportation and access to care. Patient will benefit from OP therapy and psychiatry in person with a female clinician in [place]. At this time Sacha Rodriguez meets criteria for Visit Diagnoses: Anxiety Disorder Unspecified Patient ready to address current needs Yes Strengths include coping mechanisms of walking and distracting self PLAN: 1. Follow up with [facility]: Not recommended for follow-up 2. Patient goal is to decrease anxiety and panic symptoms and increase coping mechanisms 3. Behavioral Recommendations a. Deep breathing b. OP therapy Varicose veins of lower extremity 11/03/2018 Chronic abdominal pain 06/27/2018 Assessment & Plan (05/24/2024 2:28 PM EDT): Had CT ABD done 11/2023 that showed diffuse fatty change, no opaque gallstones. Otherwise normal. Referred to GI 02/17/24, has not been scheduled for an appt. Seen 05/09/24 for nausea and diarrhea after every meal. Ordered labs and abd US. Labs were normal. US appt. next week(today is 05/24/24). Seen on 05/19/24 for UTI and vaginal symptoms. Wet prep with evidence of budding yeast. Treated with Clotrimazole cream. Urine dip showed 2-5 RBC and 5-10 WBC. -reordered UA and other labs 05/24/24. -ER precautions given. Type 2 diabetes mellitus 06/27/2018 Gastroesophageal reflux disease 12/20/2017 Nonalcoholic steatohepatitis 08/27/2017 Assessment & Plan (03/04/2023 3:34 PM EDT): Component Ref Range & Units 3 wk ago (02/09/23) 5 mo ago (09/15/22) 6 mo ago (08/21/22) 6 mo ago (08/11/22) 6 mo ago (08/10/22) 7 mo ago (07/13/22) 11 mo ago (03/30/22) Sodium 135 - 145 mmol/L 144 138 142 140 138 142 Potassium 3.3 - 5.1 mmol/L 3.4 4.1 3.7 3.9 4.1 3.7 Chloride 96 - 108 mmol/L 109??High?? 104 105 107 106 106 Carbon Dioxide 22 - 29 mmol/L 24 24 27 24 23 25 Anion Gap 12 - 20 14 14 14 13 13 15 Urea Nitrogen (BUN) 9 - 16 mg/dL 8??Low?? 8??Low?? 10 9 9 7 R Creatinine 0.5 - 1.4 mg/dL 0.74 0.81 0.78 0.80 0.78 0.74 Estimated Glomerular Filt Rate >60 >60 CM >60 CM >60 CM >60 CM >60 CM Comment: NOTE: ??For -[place] individuals, multiply the result ? by 1.210.Chronic Kidney Disease: ??Estimated GFR < 60 mL/min/1.89a7[place] Kidney Disease: ??Estimated GFR < 15 mL/min/1.73m2 Glucose 60 - 115 mg/dL 118??High?? 218??High?? 97 120??High?? 100 Calcium 8.4 - 10.2 mg/dL 9.7 9.5 10.3??High?? 9.7 9.6 9.4 Bilirubin, Total 0.0 - 1.0 mg/dL 0.5 0.4 0.5 0.5 0.4 Aspartate Amino Transferase 5 - 31 U/L 36??High?? 65??High?? 57??High?? 52??High?? 46??High?? Alanine Aminotransferase 0 - 31 U/L 34??High?? 73??High?? 63??High?? 55??High?? 50??High?? 40??High?? R Total Protein 6.5 - 8.0 g/dL 7.9 7.4 8.2??High?? 8.0 7.9 Albumin Level 3.5 - 5.0 g/dL 4.0 4.1 4.7 4.6 4.5 Alkaline Phosphatase 39 - 117 U/L 118??High?? 115 102 95 105 Transaminases trending downward. Will order hepatic function panel to continue to monitor. Assessment & Plan (02/17/2023 3:05 PM EDT): Component Ref Range & Units 8 d ago (02/09/23) 5 mo ago (09/15/22) 6 mo ago (08/21/22) 6 mo ago (08/11/22) 6 mo ago (08/10/22) 7 mo ago (07/13/22) 10 mo ago (03/30/22) Sodium 135 - 145 mmol/L 144 138 142 140 138 142 Potassium 3.3 - 5.1 mmol/L 3.4 4.1 3.7 3.9 4.1 3.7 Chloride 96 - 108 mmol/L 109??High?? 104 105 107 106 106 Carbon Dioxide 22 - 29 mmol/L 24 24 27 24 23 25 Anion Gap 12 - 20 14 14 14 13 13 15 Urea Nitrogen (BUN) 9 - 16 mg/dL 8??Low?? 8??Low?? 10 9 9 7 R Creatinine 0.5 - 1.4 mg/dL 0.74 0.81 0.78 0.80 0.78 0.74 Estimated Glomerular Filt Rate >60 >60 CM >60 CM >60 CM >60 CM >60 CM Comment: NOTE: ??For -[place] individuals, multiply the result ? by 1.210.Chronic Kidney Disease: ??Estimated GFR < 60 mL/min/1.08e6[place] Kidney Disease: ??Estimated GFR < 15 mL/min/1.73m2 Glucose 60 - 115 mg/dL 118??High?? 218??High?? 97 120??High?? 100 Calcium 8.4 - 10.2 mg/dL 9.7 9.5 10.3??High?? 9.7 9.6 9.4 Bilirubin, Total 0.0 - 1.0 mg/dL 0.5 0.4 0.5 0.5 0.4 Aspartate Amino Transferase 5 - 31 U/L 36??High?? 65??High?? 57??High?? 52??High?? 46??High?? Alanine Aminotransferase 0 - 31 U/L 34??High?? 73??High?? 63??High?? 55??High?? 50??High?? Elevated transaminase levels seem to be trending downward. Going to order a hepatitis panel. Will order hepatic function panel at next visit to continue to monitor. History of right oophorectomy 06/22/2016 History of total hysterectomy 06/22/2016 Migraines 06/22/2016 Mood disorder 06/22/2016 Assessment & Plan (03/07/2024 11:20 AM EDT): Presented with prominent anxiety and occasional panic attacks; mild multimodal hallucinations (shadows, being touched). Poor sleep with nightmares. Mood swings including days of depression; others of excessive energy, unclear if fully meet criteria for BPD. Denies trauma history. Although record includes prior Dx Schizoaffective disorder and multiple psychiatric medications, patient does not recall having this diagnosis, and did not believe she needed other medications besides the clonazepam. She was agreeable to resuming Risperidone 0.5 mg at bedtime and found it helpful for sleep, nightmares, hallucinations, and anxiety. Risperidone has been increased gradually, currently taking 1.5 mg at bedtime. Will now increase again to Risperidone 2 mg at bedtime. Provider has explained that Clonazepam was a controlled substance, potentially habit-forming, and risky with opiate pain medications. She will continue Clonazepam 0.5 mg once daily in the morning. Since this provider will be retiring patient is now referred to new [facility] psychiatric provider. Pt is aware that appts will be via tele[employer] and that provider will not be an [facility] employee. She gives permission to share PHI. Any issues or concerns, contact the health center. All her questions were answered and I have wished her well. She agrees with the plan. Assessment & Plan (12/28/2023 12:36 PM EDT): Presented with prominent anxiety and occasional panic attacks; mild multimodal hallucinations (shadows, being touched). Poor sleep with nightmares. Mood swings including days of depression; others of excessive energy, unclear if fully meet criteria for BPD. Denies trauma history. Although record includes prior Dx Schizoaffective disorder and multiple psychiatric medications, patient does not recall having this diagnosis, and did not believe she needed other medications besides the clonazepam. She was agreeable to resuming Risperidone 0.5 mg at bedtime and found it helpful for sleep, nightmares, hallucinations, and anxiety. Risperidone was increased to 1 mg at bedtime and pt reports sleeping better, mood may be a little better, anxiety persists. Provider explained that Clonazepam was a controlled substance, potentially habit-forming, and risky with opiate pain medications. At this time Risperidone will be increased to 1.5 mg at bedtime for sleep, mood, and anxiety. Continue Clonazepam 0.5 mg once daily in the morning. This provider will be retiring soon, but we will have one more appt in 6 weeks, and will review plans for continuety of care. Also F/U for counseling when available. She agrees with the plan. Assessment & Plan (11/15/2023 3:42 PM EDT): Presented with prominent anxiety and occasional panic attacks; mild multimodal hallucinations (shadows, being touched). Poor sleep with nightmares. Mood swings including days of depression; others of excessive energy, unclear if fully meet criteria for BPD. Denies trauma history. Although record includes prior Dx Schizoaffective disorder and multiple psychiatric medications, patient does not recall having this diagnosis, and did not believe she needed other medications besides the clonazepam. She was agreeable to resuming Risperidone 0.5 mg at bedtime and found it helpful for sleep, nightmares, hallucinations, and anxiety. She then again missed scheduled F/u appointment. Currently reports A lot of anxiety and depression, but still sleeping OK without daytime sedation from Risperidone. With question of BPD (or Schizoaffective D/O BP type) will avoid antidepressants. She is still taking Tramadol for pain at bedtime, so not appropriate to increase Clonazepam. Will increase now to Risperidone 1 mg at bedtime. She will also continue Clonazepam 0.5 mg once daily in the morning. On 06/15/2023 informed pt tht I would be retiring within the next year or so, but we would work on having her stabilized before that and develop transition plan. When appt becomes available for counseling she will F/U for that and also request referral for agency psychiatrist. Meanwhile F/U with me in 6 weeks. Again reviewed that regular follow up would be necessary in order to continue receiving prescriptions and to become more stable in preparation for transition to new provider. She agrees with the plan. Assessment & Plan (09/02/2023 12:01 PM EST): Presented with prominent anxiety and occasional panic attacks; mild multimodal hallucinations (shadows, being touched). Poor sleep with nightmares. Mood swings including days of depression; others of excessive energy, unclear if fully meet criteria for BPD. Denies trauma history. Although record includes prior Dx Schizoaffective disorder and multiple psychiatric medications, patient does not recall having this diagnosis, and did not believe she needed other medications besides the clonazepam. She was agreeable to resuming Risperidone 0.5 mg at bedtime and has found it helpful for sleep, nightmares, hallucinations, and anxiety. She will also continue Clonazepam 0.5 mg once daily. On 06/15/2023 informed pt tht I would be retiring within the next year or so, but we would work on having her stabilized before that and develop transition plan. When appt becomes available for counseling she will F/U for that and also request referral for agency psychiatrist. Meanwhile F/U with me in 2 months. Reviewed that regular follow up would be necessary in order to continue receiving prescriptions. She agrees with the plan. Assessment & Plan (07/13/2023 12:04 PM EST): Presented with prominent anxiety and occasional panic attacks; mild multimodal hallucinations (shadows, being touched). Poor sleep with nightmares. Mood swings including days of depression; others of excessive energy, unclear if fully meet criteria for BPD. Denies trauma history. Although record includes prior Dx Schizoaffective disorder and multiple psychiatric medications, patient does not recall having this diagnosis, and did not believe she needed other medications besides the clonazepam. She was agreeable to resuming Risperidone 0.5 mg at bedtime and has found it helpful for sleep, nightmares, and anxiety. Unfortunately Clonazepam was not dispensed, evidently r/t need for PA since also taking Tramadol. This provider was not informed that PA was needed. Pt says she does need the Tramadol, but only takes once daily in the afternoon, from Clonazepam. On 06/15/2023 informed pt tht I would be retiring within the next year or so, but we would work on having her stabilized before that and develop transition plan. When appt becomes available for counseling she will F/U for that and also request referral for agency psychiatrist. Meanwhile F/U with me in 6-8weeks. Reviewed that regular follow up would be necessary in order to continue receiving prescriptions. She agrees with the plan. Assessment & Plan (06/15/2023 11:43 AM EDT): With prominent anxiety and occasional panic attacks; mild multimodal hallucinations (shadows, being touched). Poor sleep with nightmares. Mood swings including days of depression; others of excessive energy, unclear if fully meet criteria for BPD. Denies trauma history. Although record includes prior Dx Schizoaffective disorder and multiple psychiatric medications, patient does not recall having this diagnosis, and does not believe she needs other medications at this time besides the clonazepam. Reviewed with patient that Risperidone could help with sleep, mood swings, and anxiety and she is willing to re-try that, will start Risperidone 0.5 mg taken every night at bedtime (not prn). Based on COMBUSTION ANALYST notes, she appears to be taking Clonazepam 0.5 mg once daily prn appropriately and may continue this. Today 06/15/2023 informed pt tht I would be retiring within the next year or so, but we would work on having her stabilized before that and develop transition plan. When appt becomes available for counseling she will F/U for that and also request referral for agency psychiatrist. Meanwhile F/U with me in 3-4 weeks. Reviewed that regular follow up would be necessary in order to continue receiving prescriptions. She agrees with the plan. 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 Date Type Department Care Team Description 09/25/2024 2:00 PM EST Office Visit [facility] [address] [place] [address] Chest pain, atypical (Primary Dx); Obstructive sleep apnea syndrome; Mild intermittent asthma, unspecified whether complicated; Shortness of breath; Gastroesophageal reflux disease with esophagitis without hemorrhage 09/25/2024 Refill [facility] [address] [place] [address] Radha Shah FNP 09/21/2024 Patient Outreach [facility] [address] [place] [address] Yecenia Frias FNP Care Coordination (C3 -[facility] telephone call outreach) 09/18/2024 Patient Outreach [facility] [address] [facility] [place] [address] Yecenia Frias FNP Care Coordination (C3 -[facility] telephone call outreach ) 09/14/2024 10:30 AM EST Office Visit [facility] [address] [place] [address] Glenn, Akila, OD Diabetes type 2, no ocular involvement (CMS/HCC) (Primary Dx); Dry eyes, bilateral; Presbyopia of both eyes 09/14/2024 Travel 09/13/2024 Telephone [facility] [address] [place] [address] Yecenia Frias FNP FYI 09/13/2024 Travel 09/06/2024 Patient Outreach [facility] [address] [place] [address] Yecenia Frias FNP Care Coordination (C3 -[facility] telephone call outreach) 09/01/2024 Refill [facility] [address] [place] [address] Yecenia Frias FNP Multiple joint pain 08/29/2024 Refill [facility] [address] [place] [address] Yecenia Frias FNP Arthralgia, unspecified joint 08/21/2024 4:00 PM EST Office Visit [facility] [address] [place] [address] Name, MD Tony Sore throat (Primary Dx); Acute cough 08/11/2024 Telephone [facility] [address] [place] [address] Yecenia Frias FNP Follow up call 08/11/2024 Telephone [facility] [address] [place] [address] Yecenia Frias FNP 08/11/2024 Patient Outreach [facility] [address] [facility] [place] [address] [facility] Care Coordination (C3 [facility] Kelly Obrien telephone call outreach) 08/09/2024 Refill [facility] [address] [facility] [place] [address] [facility] Type 2 diabetes mellitus without complication, with long-term current use of insulin ([facility]) 08/08/2024 Patient Outreach [facility] [address] [facility] [place] [address] [facility] Care Coordination (C3 [facility] Kelly Obrien telelphone call outreach) 08/08/2024 Patient Outreach [facility] [address] [facility] [place] [address] [facility] Care Coordination (CHW outreach for SDOH housing search-no answer, LVM ) 08/08/2024 Telephone [facility] [address] [place] [address] [facility] 08/03/2024 Telephone [facility] [address] [place] [address] Kira Bansal RN 08/03/2024 Refill [facility] [address] [place] [address] [facility] Arthralgia, unspecified joint 08/03/2024 Refill [facility] [address] [place] [address] [facility] Multiple joint pain 07/31/2024 1:00 PM EST Clinical Support [facility] [address] [place] [address] Kira Bansal, hydro technician midline back pain, unspecified back location (Primary Dx) 07/31/2024 Telephone [facility] [address] [place] [address] [facility] FYI 07/31/2024 Telephone [facility] [address] [place] [address] Kira Bansal, RN UTOX Neg BZO, Forgot Clonazepam 07/31/2024 Telephone [facility] [address] [facility] [place] [address] Yecenia Frias FNP refill 07/31/2024 Travel 07/31/2024 Telephone [facility] [place] [address] Kira Bansal, RN Recomend COMBUSTION ANALYST Tier 2 07/25/2024 Patient Outreach [facility] [place] [address] AltagraciaYecenia whipple FNP Care Coordination (C3 -[facility] telephone call outreach) 07/24/2024 10:45 AM EST Office Visit [facility] [place] [address] Yecenia Frias FNP Type 2 diabetes mellitus without complication, with long-term current use of insulin ([facility]) (Primary Dx); Essential hypertension; Varicose veins of both lower extremities with pain; Furuncle of abdominal wall; Mild intermittent asthma without complication; Housing insecurity 07/24/2024 Travel 07/12/2024 Telephone [facility] [place] [address] Mala De La Torre, MEREDITH Results 07/11/2024 Patient Outreach [address] [place] [address] Yecenia Frias FNP Pre-visit Planning ([facility] screening was completed on 03/01/2024) 07/10/2024 Telephone [facility] [place] [address] Amy Almanza, MEREDITH 07/10/2024 Travel 07/07/2024 Refill [facility] [place] [address] Yecenia Frias FNP Multiple joint pain 07/03/2024 Refill [facility] [address] [facility], [place] [phone] Yecenia Frias FNP Candidiasis 06/29/2024 Telephone [facility] [address] [place] [address] AltagraciaYecenia whipple FNP Results 06/27/2024 Telephone [facility] [address] [place] [phone] Glenn, Akila, OD from Last 3 Months Immunizations Name Administration Dates Next Due Hep A, Adult 10/11/2008 Hep B, adult 05/21/2008,09/22/2007,06/29/2007 Influenza, Split (incl. manuel fied surface antigen) 08/25/2013 Pfizer Covid-19 Vaccine 12+ 05/05/2021, Pfizer Covid-19 Vaccine 12+ Bivalent 10/08/2022 Pneumococcal Polysaccharide PPSV23 06/29/2007 TD (adult), 2 Lf tetanus tox oid, preservative free, adsorbed 02/11/2007,01/19/1994 Tdap 08/25/2013 Varicella 02/11/2007 Family History Medical History Relation Name Comments Heart disease Father Diabetes Mother's Sister Relation Name Status Comments Father Mother's Sister Social History Tobacco Use Types Packs/Day Years Used Date Smoking Tobacco: Never Passive Smoke Exposure: Never Smokeless Tobacco: Never Tobacco Cessation:Counseling Given: Not Answered Alcohol Use Standard Drinks/Week Comments Never 0 [...] with others, in a hotel, in a chcf, living outside on the street, on a [...] the past 12 months, has t he [employer], gas, oil or water company threatened to [...] not to disclose 2021 10:14 AM EDT Last Filed Vital Signs Vital Sign Reading Time Taken Comments Blood Pressure 116/81 09/25/2024 12:45 PM EST Pulse 105 09/25/2024 12:45 PM EST Temperature 36.3 ??C (97.3 ??F) 09/25/2024 12:[address] Respiratory Rate 20 08/21/2024 3:46 PM EST Oxygen Saturation 98% 09/25/2024 12:45 PM EST Inhaled Oxygen Concentration - - Weight 80.6 kg (177 lb 9.6 oz) 08/21/2024 3:46 P M EST Height 152.4 cm (5') 08/21/2024 3:46 PM EST Body Mass Index 34.69 08/21/2024 3:46 PM EST Plan of Treatment Upcoming Encounters Date Type Department Care Team (Late st Contact Info) Description 10/12/2024 2:00 PM EST Office Visit [facility] [address] [place] [address] Phillip Borrego, DMD [address] [place] [address] 10/23/2024 1:00 PM EST Office Visit [facility] [address] [place] [address] Yecenia Frias FNP [address] [place] [address] 10/24/2024 1:00 PM EST Clinical Support [address] [address] Kira Bansal, RN Health Maintenance Due Date Last Done Comments Dental X-Ray: Bitewings 1980 HIV Screening 1980 Diabetes: Foot Exam 12/04/1989 Alcohol/Substance Use Screening 1991 Family Planning (PISQ) 12/04/1994 Pneumococcal Vaccine: Pediatrics (0 to 5 Years) and At-Risk Patients (6 to 49) Years) (2 of 2 - PCV) 06/29/2008 06/29/2007 Dental Prophylaxis 12/06/2008 06/06/2008 Hepatitis A Vaccines (2 of 2 - Risk 2-dose series) 04/10/2009 10/11/2008 Dental X-Ray: Full Mouth 03/30/2018 03/29/2015 Dental Oral Exam 11/23/2020 05/24/2020 DTaP/Tdap/Td Vaccines (3 - Td or Tdap) 08/25/2023 08/25/2013, 02/11/2007, 01/19/1994 COVID-19 Vaccine ( season) 2024 10/08/2022, 05/05/2021, 04/08/2021 Influenza Vaccine (#1) 2024 08/25/2013 Diabetes: Hemoglobin A1C 01/22/2025 024, 10/22/2023, 02/09/2023, Additional history exists Diabetes: Urine Protein Screening 02/06/2025 02/07/2024, 09/15/2022, 12/12/2020, Additional history exists Depression Screening 03/07/2025 03/07/2024, 03/07/20 24 Lipid Panel 05/12/2025 05/12/2024, 07/12/2023, 02/09/2023, Additional history exists SDOH Screening 07/25/2025 07/25/2024 Tobacco Screening 08/07/2025 08/07/2024 Mammogram 11/15/2025 11/16/2023 Eye Exam 09/14/2026 09/14/2024, 08/24, 09/14/2024, Additional history exists Zoster Vaccines (1 of 2) 12/04/2029 RSV Patients and Patients Aged 60 years or older (1 - 1-dose 75+ series) 12/04/2054 Hepatitis B Vaccines Completed 05/21/2008, 09/22/2007, 06/29/2007 Hepatitis C Screening Completed 02/22/2023, 022 HIB Vaccines Aged Out No longer eligi ble based on patient's age to complete this topic HPV Vaccines Aged Out No longer eligi ble based on patient's age to complete this topic IPV Vaccines Aged Out No longer eligi ble based on patient's age to complete this topic Meningococcal Vaccine Aged Out No lauren alia eligible based on patient's age to complete this topic RSV under 20 months Aged Out No longe r eligible based on patient's age to complete this topic Rotavirus Vaccines Aged Out No longer eligible based on patient's age to complete this topic Procedures Procedure Name Priority Date/Time Associated Diagnosis Comments POC BALL ID NOW STREP A Routine 08/21/2024 3:53 PM EST Sore throat POCT INFLUENZA B (ID NOW RAPID MOLECULAR) Routine 08/21/2024 3:53 PM EST Sore throat POCT INFLUENZA A (ID NOW RAPID MOLECULAR) Routine 08/21/2024 3:53 PM EST Sore throat POCT RAPID COVID ANTIGEN Routine 08/21/2024 3:53 PM EST Sore throat POCT CASSI-14 URINE DRUG SCREEN Routine 07/31/2024 12:40 PM EST Chronic midline back pain, unspecified back location DRUG MONITORING, BENZODIAZEPINES, QUANTITATIVE, URINE Routine 07/31/2024 12:30 PM EST Chronic midline back pain, unspecified back location POCT GLYCATED HEMOGLOBIN, TOTAL Routine 07/24/2024 10:47 AM EST Type 2 diabetes mellitus without complication, with long-term current use of insulin ([facility]) POCT GLUCOSE Routine 07/24/2024 10:45 AM EST Type 2 diabetes mellitus without complication, with long-term current use of insulin ([facility]) LIPID PANEL, STANDARD Routine 05/12/2024 11:00 AM EDT Elevated lipids ALBUMIN, RANDOM URINE W/CREATININE Routine 02/07/2024 2:09 PM EDT Type 2 diabetes mellitus without complication, with long-term current use of insulin (CMS/HCC) BI MAMMOGRAM SCREENING TOMOSYNTHESIS BILATERAL Routine 11/16/2023 1:25 PM EDT HEPATITIS PANEL, GENERAL Routine 02/22/2023 1:46 PM EDT Nonalcoholic steatohepatitis PERIODIC ORAL EVALUATION - ESTABLISHED PATIENT Routine 05/24/2020 12:00 AM EDT PANORAMIC RADIOGRAPHIC IMAGE Routine 03/29/2015 12:00 AM EDT PROPHYLAXIS - ADULT Routine 06/06/2008 1 2:00 AM EDT from Last 3 Months or Most Recently Relevant to Health Maintenance Results * POCT Rapid Influenza B BALL ID NOW (08/21/2024 3:53 PM EST) [facility] Influenza B Negative Negative, Indeterminate [facility] Swab 08/21/2024 3:53 PM EST us Tony Haywood MD POINT OF CARE TEST ENTER/EDIT OR DERABLES Final Result Performing Organization Address [facility] Co de Phone Number [facility] [address] [place] [phone] * POCT Rapid Influenza A BALL ID NOW (08/21/2024 3:53 PM EST) Pathologist [facility] Influenza A Negative Negative, Indeterminate [facility] Swab 08/21/2024 3:53 PM EST us Tony Haywood MD POINT OF CARE TEST ENTER/EDIT OR DERABLES Final Result Performing Organization Address [facility] Co de Phone Number [facility] [address] [place] [phone] * POCT Rapid Strep A BALL ID NOW (08/21/2024 3:53 PM EST) [facility] Rapid Strep A Screen Negative Negative, None Detected Swab 08/21/2024 3:53 PM EST Tony Haywood MD POINT OF CARE TEST ENTER/EDIT OR DERABLES Final Result * POCT Rapid Covid-19 BinaxNOW (08/21/2024 3:53 PM EST) [facility] Rapid COVID Ag Negative [facility] Swab 08/21/2024 3:53 PM EST Tony Haywood MD POINT OF CARE TEST ENTER/EDIT OR DERABLES Final Result Performing Organization Address City/State/[facility] Co de Phone Number [facility] [address] [place] [phone] * (ABNORMAL) POCT CASSI-14 Urine Drug Screen (07/31/2024 12:40 PM EST) [facility] Benzodiazepines Screen, Urine Negative Urine Urine specimen obtained by clean catch procedure / Unknown 07/31/2024 12:40 PM EST Kira Alford RN - 07/31/2024 12:40 PM EST UTOX cup Lot#[id number] Exp. 05/17/26 Internal Pass Control [facility] POINT OF CARE TEST ENTER/EDIT ORDERABLES Final Result * Drug Monitoring, Benzodiazepines, Quantitative, Urine (07/31/2024 12:30 PM EST) [facility] Nordiazepam, GCMS Urine NEGATIVE [facility] Oxazepam, GCMS Urine NEGATIVE [facility] Lorazepam GCMS Urine NEGATIVE [facility] Alprazolam, GCMS Urine NEGATIVE [facility] Alphahydroxytriazolam, GCMS Ur NEGATIVE [facility] Temazepam, GCMS Urine NEGATIVE [facility] Alphahydroxymidazolam,GC MS Ur NEGATIVE [facility] Aminoclonazepam, GCMS Urine NEGATIVE [facility] Flurazepam Metabolite,GCMS Ur NEGATIVE [facility] Benzodiazepines Comments SEE NOTE [facility] Comment:This drug testing is for medical treatment only.Analysis was performed as non-forensic testing andthese results should be used only by healthcareproviders to render diagnosis or treatment, or tomonitor progress of medical conditions.LDT Notes:Confirmation tests were developed and their analyticalperformance characteristics have been determined by[facility]. It has not been cleared or approvedby the FDA. This assay has been validated pursuant tothe CLIA regulations and is used for clinical purposes.Healthcare Providers needing Interpretation assistance,please contact us at [phone] ([phone])M-F, 8am to 10pm ESTTHIS TEST PERFORMED AT:[facility] [place] [phone] DIRECTOR: KWESI TAYLOR MD Urine (Urine, Random) 07/31/2024 12:30 PM EST 07/31/2024 5:55 PM EST [facility] LAB URINE ORDERABLES Final Re sult [facility] [address] [place] [phone] * POCT HGB A1C (07/24/2024 10:47 AM EST) Hemoglobin A1C 5.4 4.0 - 6.0 % QC Media Lot # [id number] Lot# Expiration Date [id number] Blood 07/24/2024 10:4 7 AM EST [facility] POINT OF CARE TEST ENTER/EDIT ORDERABLES Final Result * POCT Glucose (07/24/2024 10:45 AM EST) Glucose Blood, POC 146 60 - 200 mg/dL QC Media Lot # [id number] Lot# Expiration Date [id number] Blood Capillary blood specimen / Unknown 07/24/2024 10:45 AM EST [facility] OFFICE EQUIPMENT MECHANIC POINT OF CARE TEST ENTER/EDIT ORDERABLES Final Result * (ABNORMAL) Lipid Panel, Standard (05/12/2024 11:00 AM EDT) Triglycerides 100 <150 mg/dL [facility] Comment:Desirable Triglyceri de: less than 150 mg/dLBorderline High Triglyceride 150-199 mg/dLHigh Triglyceride: 200-499 mg/dLVery High Triglyceride: greater than or equal to 5OO mg/dL Cholesterol 101 <200 mg/dL [facility] Comment:Desirable Cholestero l: less than 200 mg/dLBorderline High Cholesterol: 200-239 mg/dLHigh Cholesterol: greater than 239 mg/dL LDL Cholesterol Calculated 44 <100 mg/dL [facility] Comment:Desirable LDL: less than 100 mg/dLNear Optimal/Above Optimal LDL: 110- 129 mg/dLBorderline High LDL: 130-159 mg/dLHigh LDL: 160-189 mg/dLVery High LDL: greater than or equal to 190 mg/dL HDL Cholesterol 37(L) >40 mg/dL [facility] Comment:Desirable HDL: great er than 40 mg/dL Note: This HDL assay may give artificially low results in patients with liver disease. Blood Venous blood specimen / Unknown 05/12/2024 11:00 AM EDT 05/12/2024 11:00 AM EDT Radha Shah [facility] BLOOD ORDERABLES Final Resu lt [facility] [address] [place] [phone] [phone] * Albumin, Random Urine W/Creatinine (02/07/2024 2:09 PM EDT) Creatinine, Urine 164.92 mg/dL [facility] Microalbumin Urine 16.0 mg/L [facility] Microalbum Creatinine Ratio Ur 9.7 <30 ug/mg cr [facility] Comment:Albumin/Creatinine R atio Reference Ranges: Normal: < 30 ug/mg creatinine Microalbuminuria: 30 - 300 ug/mg creatinineClinical Albuminuria: > 300 ug/mg creatinine Urine (Urine, Random) 02/07/2024 2:09 PM EDT 02/07/2024 3:55 PM EDT us Radha Shah OFFICE EQUIPMENT MECHANIC LAB URINE ORDERABLES Final Resu lt [facility] [address] [place] [address] [phone] * BI Mammogram Screening Tomosynthesis Bilateral (11/16/2023 1:25 PM EDT) Anatomical Region Laterality Modality Breast Bilateral Mammography 11/16/2023 1:25 PM EDT Narrative 12/02/2023 6:15 AM EDT ? [facility] ? [address] ?[place] [id number] ? Mammography Report ? Signed ? Patient: Sacha Contreras ?MR#: [id number] ?? [id number] ? : 1980 ?Acct:[id number] ? Age/Sex: 42 / F ?ADM Date: 11/16/23 ? Loc: HO.MAMMO ? Attending Dr: Radha Shah HUMAN RESOURCES MANAGER MANUFACTURING ? Ordering Physician: Radha Shah HUMAN RESOURCES MANAGER MANUFACTURING ?Results: 1Negativ ?? e ? Date of Service: 11/16/23 ?Follow Up: 1 Year From Orig ?? inal Mammogram ? Procedure(s): MM tomosynthesis screening BI ?? Accession Number(s): [id number] ? cc: Radha Shah HUMAN RESOURCES MANAGER MANUFACTURING ? EXAMINATION: ?? MM SCREENING DIGITAL BREAST TOMOSYNTHESIS, BILATERAL ? CLINICAL INFORMATION: ? Screening. Asymptomatic. ? COMPARISON: ?? Mammography: This is a baseline study. ? TECHNIQUE: ?? Digital breast tomosynthesis is performed in both the craniocaudal and ?? mediolateral oblique views along with computer-aided detection (CAD). ?? Synthesized 2D images are generated from the tomosynthesis. ? FINDINGS: ?? There are scattered areas of fibroglandular density (ACR BI-RADS breast ?? composition Category b). ? There are no significant masses, abnormal calcifications, or other ?? abnormalities. ? MM/MM tomosynthesis screening BI ?? IMPRESSION: ?? No mammographic evidence of malignancy. ? ASSESSMENT: ? BI-RADS BI-RADS 1 - Negative ? RECOMMENDATION: ?? Routine annual mammography screening. ? 1 year F/U ? This examination should not preclude the clinical evaluation of a ?? suspicious palpable abnormality. ? This patient's information was entered into a reminder system with a ?? target due date for their next mammogram. ? Dictated By: ?Virginia Oneal MD ? Signed By: ?<Electronically signed by Virginia Oneal MD in OV> ? 12/02/23610 ? DD/ 1325 ? TD/TT: ? [employer] Consultant: ? Procedure Note Rowena Gao - 12/02/2023 [facility] [address] [place], [place] [address] Mammography Report Signed Patient: Roach Xavier RodriguezR#: [id number] : 1980Acct:[id number] Age/Sex: 42 / FADM Date: 11/16/23 Loc: HO.MAMMO Attending Dr: Radha Shah HUMAN RESOURCES MANAGER MANUFACTURING Ordering Physician: Radha Shah NPResults: 1Negativ e Date of Service: 11/16/23Follow Up: 1 Year From Orig ina Mammogram Procedure(s): MM tomosynthesis screening BI Accession Number(s): [id number] cc: Radha Shah HUMAN RESOURCES MANAGER MANUFACTURING EXAMINATION: MM SCREENING DIGITAL BREAST TOMOSYNTHESIS, BILATERAL CLINICAL INFORMATION: Screening. Asymptomatic. COMPARISON: Mammography: This is a baseline study. TECHNIQUE: Digital breast tomosynthesis is performed in both the craniocaudal and mediolateral oblique views along with computer-aided detection (CAD). Synthesized 2D images are generated from the tomosynthesis. FINDINGS: There are scattered areas of fibroglandular density (ACR BI-RADS breast composition Category b). There are no significant masses, abnormal calcifications, or other abnormalities. MM/MM tomosynthesis screening BI IMPRESSION: No mammographic evidence of malignancy. ASSESSMENT: BI-RADS BI-RADS 1 - Negative RECOMMENDATION: Routine annual mammography screening. 1 year F/U This examination should not preclude the clinical evaluation of a suspicious palpable abnormality. This patient's information was entered into a reminder system with a target due date for their next mammogram. Dictated By: Virginia Oneal MD Signed By: <Electronically signed by Virginia Oneal MD in OV> 12/02/23 0611 DD/ 1325 TD/TT: [employer] Consultant: Radha Shah [facility] IM BI PROCEDURES Final Result * (ABNORMAL) Hepatitis Panel, General (02/22/2023 1:46 PM EDT) Hepatitis A Antibody Total REACTIVE( A) NON-REACT GLG Comment: For additional information, please refer to http://education.Touchtalent/faq/FNU306 (This link is being provided for informational/ educational purposes only.) Hepatitis B Surface Antibody QL REACTIVE( A) NON-REACT C2C REI Softwaret Hepatitis B Surface Ag NON-REACT TAWNYA NON-REACT TAWNYA [employer] [place] [employer] Comment: For additional information, please refer to http://Philly Runway Thief/faq/NCB874 (This link is being provided for informational/ educational purposes only.) Hepatitis B Core Antibody Total NON-REACT TAWNYA NON-REACT TAWNYA [employer] [place] [employer] Comment: For additional information, please refer to http://Philly Runway Thief/faq/HTD927 (This link is being provided for informational/ educational purposes only.) Hepatitis C Antibody NON-REACT TAWNYA NON-REACT TAWNYA [employer] [place] [employer] Comment: HCV antibody was non-reactive. There is no laboratory evidence of HCV infection. In most cases, no further action is required. However, if recent HCV exposure is suspected, a test for HCV RNA (test code 45095) is suggested. For additional information please refer to http://Philly Runway Thief/faq/NVD73b2 (This link is being provided for informational/ educational purposes only.) 02/22/2023 1:46 PM EDT 02/22/2023 1:46 PM EDT Narrative [facility] - 02/26/2023 7:51 PM EDT FASTING:NO FASTING: NO Marc [facility] BLOOD ORDERABLES Final Res ult [facility] [address], [place] [address] [employer] [place] [employer] [facility] [address] [place] [address] from Last 3 Months or Most Recently Relevant to Health Maintenance Insurance [facility] STAND ADULT Care Teams Satellite Communications Operator Relationship Specialty Start Date End Date Yecenia Frias FNP [address] [place] [address] PCP - General Family Medicine 04/26/24 Colby Hirsch FNP Nurse Practitioner Family Medicine 07/13/23 Candice Ugarte Kidney PullerModel Builder Display 12/27/23
--- OUTSIDE RECORDS SUMMARY | 2024-09-25 14:35 | XMS_ITS | Encounter Summary ---
Author Organization [employer] Address [address] [facility] 7t [place] [address] Care Team Providers Care Marketing Information Analyst Name Role Phone Marc Nicolas Primary Care Provider Unavail able Radha Sahh SLEEP MEDICINE PHYSICIAN Primary Care Provider [phone] Colby Hirsch Unavailable Unavailable [facility] SLEEP MEDICINE PHYSICIAN Primary Care Provider [phone] Reason for Visit * Reason Onset Date Comments Referral 01/26/2023 Encounter Details Date Type Department Care Team (Late st Contact Info) Description 01/26/2023 Telephone [facility] MEDICINE [address] [place] [address] Marc Nicolas AGNP Referral Social History Tobacco Use Types Packs/Day Years Used Date Smoking Tobacco: Never Passive Smoke Exposure: Never Smokeless Tobacco: Never Alcohol Use Standard Drinks/Week Comments Never 0 (1 standard drink = 0.6 oz pur e alcohol) PHQ-2 Answer Date Recorded Patient Health Questionnaire-2 Score 6 01/20/2023 Comments No Sex and Gender Information Value Date Recorded Sex Assigned at Female 06/22/2022 10:14 AM EDT Legal Sex Female 10:14 AM EDT Gender Identity Female 06/22/2022 10:14 AM EDT Sexual Orientation Choose not to disclose 2021 10:14 AM EDT COVID-19 Exposure Response Date Recorded In the last 10 days, have yo u been in contact with someone who was confirmed or suspected to have Coronavirus/COVID-19? No / Unsure 01/20/2023 2:13 PM EDT documented as of this encounter Miscellaneous Notes * Telephone Encounter - Katarina Cruz - 01/26/2023 2:40 PM EDT TC from pt requesting status on general surgery referral . States would like to know where she haves been referral to . Please call pt to clarify . documented in this encounter Plan of Treatment Upcoming Encounters Date Type Department Care Team (Late st Contact Info) Description 10/12/2024 2:00 PM EST Office Visit [facility] ADULT DENTAL [address] [place] [address] Phillip Borrego, DMD [address] [place] [address] 10/23/2024 1:00 PM EST Office Visit [address] [address] Yecenia Frias FNP [address] [place] [address] 10/24/2024 1:00 PM EST Clinical Support [address] [address] Kira Bansal, MEREDITH documented as of this encounter Visit Diagnoses Not on filedocumented in this encounter Additional Health Concerns Assessment Noted Time PHQ-9 Depression Total Score: 19 023 3:57 PM EDT documented as of this encounter Care Teams Marketing Information Analyst Relationship Specialty Start Date End Date Marc Nicolas AGNP PCP - General Family Medicine 10/22/22 04/20/23 Radha Shah FNP [address] [place] [address] PCP - General Family Medicine 04/21/23 04/25/24 Yecenia Frias FNP [address] [place] [address] PCP - General Family Medicine 04/26/24 Colby Hirsch FNP [address] [place] [address] Nurse Practitioner Family Medicine 07/13/23 Candice Ugarte Cancer Registry ManagerVp Business Development 12/27/23 documented as of this encounter
--- OUTSIDE RECORDS SUMMARY | 2024-09-25 14:35 | XMS_ITS | Encounter Summary ---
Author Organization [employer] Address [address] [facility] 7t [place] [address] Care Team Providers Care Fountain Worker Name Role Phone Radha Shah MANAGER DIGITAL AD OPERATIONS Primary Care Provider [phone] Colby Hirsch Unavailable Unavailable [facility] MANAGER DIGITAL AD OPERATIONS Primary Care Provider [phone] Reason for Visit * Reason Onset Date Comments Appointment Request 08/30/2023 Encounter Details Date Type Department Care Team ([facility] st Contact Info) Description 08/30/2023 Telephone [facility] MEDICINE [address] [place] [address] Radha Shah FNP [address] [place] [address] Appointment Request Social History Tobacco Use Types Packs/Day Years [...] with others, in a hotel, in a [place], living outside on the street, on a [...] * Telephone Encounter - James Sawyer - 08/30/2023 8:18 AM EST TC from pt requesting to r/s follow up appt with PCP scheduled for 08/30/23 Multilith Operator attempted to r/s however zero availability. Please contact at [phone] documented in this encounter Plan of Treatment Upcoming Encounters Date Type Department Care Team (Late st Contact Info) Description 10/12/2024 2:00 PM EST Office Visit [facility] ADULT DENTAL [address] [place] [address] Phillip Borrego, MYA [address] [place] [address] 10/23/2024 1:00 PM EST Office Visit [facility] MEDICINE [address] [place] [address] Altagracia, Yecenia, MANAGER DIGITAL AD OPERATIONS [address] [place] [address] 10/24/2024 1:00 PM EST Clinical Support [facility] MEDICINE [address] [place] [address] Kira Bansal RN documented as of this encounter Visit Diagnoses Not on filedocumented in this encounter Additional Health Concerns Assessment Noted Time PHQ-9 Depression Total Score: 5 07/13/20 23 11:12 AM EST documented as of this encounter Care Teams Fountain Worker Relationship Specialty Start Date End Date Radha Shah FNP [address] [place] [address] PCP - General Family Medicine 04/21/23 04/25/24 Yecenia Frias FNP [address] [place] [address] PCP - General Family Medicine 04/26/24 Colby Hirsch FNP [address] [place] [address] Nurse Practitioner Family Medicine 07/13/23 Candice Ugarte Spooling Machine OperatorInstructor Looping 12/27/23 documented as of this encounter
--- OUTSIDE RECORDS SUMMARY | 2024-09-25 14:35 | XMS_ITS | Encounter Summary ---
Author Organization [employer] Address [address] [facility] 7t [place] [address] Care Team Providers Care Boiling Tub Operator Name Role Phone Radha Shah TECHNICIAN SUBMARINE CABLE EQUIPMENT Primary Care Provider [phone] Colby Hirsch Unavailable Unavailable [facility] Primary Care Provider [phone] Reason for Visit * Reason Comments Med Refill Encounter Details Date Type Department Care Team (Late st Contact Info) Description 11/24/2023 Refill [facility] MEDICINE [address] [place] [address] Radha Shah FNP [address] [place] [address] Multiple joint pain Social History Tobacco Use Types Packs/Day Years Used Date Smoking Tobacco: Never Passive Smoke Exposure: Never Smokeless Tobacco: Never Alcohol Use Standard Drinks/Week Comments Never 0 (1 standard drink = 0.6 oz pur e alcohol) Depression Answer Date Recorded Patient Health Questionnaire-9 Score 8 09/02/2023 Patient Health Questionnaire-9 Score 8 09/02/2023 Last PHQ-9: Questionnaire Data Not on file 0 09/02/2023 Housing Stability Answer Date Recorded What is your housing situation today? I have dell rodriguez 06/07/[address] you li ve. Do you have problems with any of the following? None of the above 06/07/2023 Food Insecurity Answer Date Recorded Within the past 12 months, y ou worried that your food would run out before you got money to buy more: Often true 06/07/2023 Within the past 12 months,th e food you bought just didn't last and you didn't have enough money to get more: Often true Transportation Answer Date Recorded In the past 12 months, has l ack of transportation kept you from medical appts, meetings, work or from getting things needed for daily living? No 06/07/2023 Utilities Answer Date Recorded In the past 12 months, has t he electric, gas, oil or water company threatened to shut off services in your home? No 06/07/2023 Depression Answer Date Recorded Patient Health Questionnaire-2 Score 1 09/02/2023 Comments No Sex and Gender Information Value Date Recorded Sex Assigned at Female 06/22/2022 10:14 AM EDT Legal Sex Female 10:14 AM EDT Gender Identity Female 06/22/2022 10:14 AM EDT Sexual Orientation Choose not to disclose 2021 10:14 AM EDT documented as of this encounter Plan of Treatment Upcoming Encounters Date Type Department Care Team (Late st Contact Info) Description 10/12/2024 2:00 PM EST Office Visit [facility] ADULT DENTAL [address] [place] [address] Phillip Borrego, MYA [address] [place] [address] 10/23/2024 1:00 PM EST Office Visit [facility] MEDICINE [address] [place] [address] Yecenia Frias FNP [address] [place] [address] 10/24/2024 1:00 PM EST Clinical Support [facility] [address] [place] [address] Kira Bansal, MEREDITH documented as of this encounter Visit Diagnoses Diagnosis Multiple joint pain Pain in joint, multiple sites documented in this encounter Additional Health Concerns Assessment Noted Time PHQ-9 Depression Total Score: 8 09/02/19 24 11:12 AM EST documented as of this encounter Care Teams Boiling Tub Operator Relationship Specialty Start Date End Date Radha Shah FNP [address] [place] [address] PCP - General Family Medicine 04/21/23 04/25/24 Yecenia Frias FNP [address] [place] [address] PCP - General Family Medicine 04/26/24 Colby Hirsch FNP [address] [place] [address] Nurse Practitioner Family Medicine 07/13/23 Candice Ugarte RoastermanFull Stack Python Developer 12/27/23 documented as of this encounter
--- OUTSIDE RECORDS SUMMARY | 2024-09-25 14:35 | XMS_ITS | Encounter Summary ---
Author Organization [employer] Address [address] [facility] 7t [place] [address] Care Team Providers Care Wire Puller Name Role Phone Ruth Hoffmann BANJO REPAIRER Primary Care Provider Marc Nava Primary Care Provider Unavail able Radha Shah BANJO REPAIRER Primary Care Provider [phone] Colby HirschP Unavailable Unavailable [facility] BANJO REPAIRER Primary Care Provider [phone] Reason for Visit * Reason Onset Date Comments Appointment Request 10/01/2022 Encounter Details Date Type Department Care Team (Late st Contact Info) Description 10/01/2022 Telephone [facility] MEDICINE [address] [place] [address] Ruth Hoffmann FNP Appointment Request Social History Tobacco Use Types Packs/Day Years Used Date Smoking Tobacco: Never Alcohol Use Standard Drinks/Week Comments Never 0 (1 standard drink = 0.6 oz pur e alcohol) Comments Unknown Sex and Gender Information Value Date Recorded Sex Assigned at Female 06/22/2022 10:14 AM EDT Legal Sex Female 10:14 AM EDT Gender Identity Female 06/22/2022 10:14 AM EDT Sexual Orientation Choose not to disclose 2021 10:14 AM EDT documented as of this encounter Miscellaneous Notes * Telephone Encounter - Loyda Paniagua RN - 10/06/2022 11:17 AM EST Returned call to pt regarding message below. Pt agrees to r/s appt for ED f/u CP for 10/14/22. * Telephone Encounter - Katarina Cruz - 10/01/2022 12:16 PM EST Tc from pt canceled 10/02/22 appt and would like to r/s . documented in this encounter Plan of Treatment Upcoming Encounters Date Type Department Care Team (Late st Contact Info) Description 10/12/2024 2:00 PM EST Office Visit [facility] ADULT DENTAL [address] [place] [address] Phillip Borrego, DMD [address] [place] [address] 10/23/2024 1:00 PM EST Office Visit [address] [address] Yecenia Frias FNP [address] [place] [address] 10/24/2024 1:00 PM EST Clinical Support [address] [address] Kira Bansal RN documented as of this encounter Visit Diagnoses Not on filedocumented in this encounter Care Teams Wire Puller Relationship Specialty Start Date End Date Ruth Hoffmann FNP PCP - General Family Medicine 07/21/22 10/21/22 Marc Nicolas AGNP PCP - General Family Medicine 10/22/22 04/20/23 Radha Shah FNP [address] [place] [address] PCP - General Family Medicine 04/21/23 04/25/24 Yecenia Frias FNP [address] [place] [address] PCP - General Family Medicine 04/26/24 Colby Hirsch FNP [address] [place] [address] Nurse Practitioner Family Medicine 07/13/23 Candice Ugarte Electrician Machine ShopArchitectural Engineer 12/27/23 documented as of this encounter
--- OUTSIDE RECORDS SUMMARY | 2024-09-25 14:35 | XMS_ITS | Encounter Summary ---
Author Organization [employer] Address [address] [facility] 7t [place] [address] Care Team Providers Care Pot Holder Binder Name Role Phone Radha Shah CARE SUPPORT REPRESENTATIVE Primary Care Provider [phone] Colby Hirsch CARE SUPPORT REPRESENTATIVE Unavailable Unavailable [facility] CARE SUPPORT REPRESENTATIVE Primary Care Provider [phone] Reason for Visit * Reason Onset Date Comments telephone call 10/29/2023 Encounter Details Date Type Department Care Team (Late st Contact Info) Description 10/29/2023 Refill [facility] MEDICINE [address] [place] [address] Radha Shah FNP [address] [place] [address] Multiple joint pain Social History Tobacco Use [...] encounter Miscellaneous Notes * Telephone Encounter - Celine Pate - 11/12/2023 10:24 AM EDT Patient walked in requesting a referral for a program. Patient does not remember the program name. A cps team lead from the program told her that if she still want to be in the program she needs a referral from PCP. Please call patient with any concern or questions. * Telephone Encounter - Celine Pate - 11/12/2023 9:46 AM EDT Patient walked in requesting a referral for a program. Patient does not remember the program name. A cps team lead from the program told her that if she still want to be in the program she needs a referral from PCP. Please call patient with any concern or questions. documented in this encounter Plan of Treatment Upcoming Encounters Date Type Department Care Team (Late st Contact Info) Description 10/12/2024 2:00 PM EST Office Visit [facility] ADULT DENTAL [address] [place] [address] Phillip Borrego, DMD [address] [place] [address] 10/23/2024 1:00 PM EST Office Visit [facility] [place] [address] [place] [address] 10/24/2024 1:00 PM EST Clinical Support [facility] [place] [address] Kira Bansal RN documented as of this encounter Visit Diagnoses Diagnosis Multiple joint pain Pain in joint, multiple sites documented in this encounter Additional Health Concerns Assessment Noted Time PHQ-9 Depression Total Score: 8 09/02/19 11:12 AM EST documented as of this encounter Care Teams Pot Holder Binder Relationship Specialty Start Date End Date Radha Shah FNP [address] [place] [address] PCP - General Family Medicine 04/21/23 04/25/24 AltagraciaYecenia whipple FNP [address] [place] [address] PCP - General Family Medicine 04/26/24 Colby Hirsch FNP [address] [place] [address] Nurse Practitioner Family Medicine 07/13/23 Candice Ugarte Horse TrainerSlag Wheeler 12/27/23 documented as of this encounter
--- OUTSIDE RECORDS SUMMARY | 2024-09-25 14:35 | XMS_ITS | Encounter Summary ---
Author Organization [employer] Address [address] [facility] 7t [place] [address] Care Team Providers Care Dumping Machine Operator Name Role Phone Radha Shah INSIDE OUTSIDE SALES REPRESENTATIVE Primary Care Provider [phone] Colby Hirsch Unavailable Unavailable [facility] INSIDE OUTSIDE SALES REPRESENTATIVE Primary Care Provider [phone] Encounter Details Date Type Department Care Team (Late st Contact Info) Description 10/29/2023 Orders Only [facility] MED & PEDS [address] [place] [address] Radha Shah FNP [address] [place] [address] Social History Tobacco Use Types Packs/Day Years [...] Description 10/12/2024 2:00 PM EST Office Visit [facility] ADULT DENTAL [address] [place] [address] Phillip Borrego, MYA [address] [place] [address] 10/23/2024 1:00 PM EST Office Visit [facility] MEDICINE [address] [place] [address] Yecenia Frias FNP [address] [place] [address] 10/24/2024 1:00 PM EST Clinical Support [facility] MEDICINE [address] [place] [address] Kira Bansal, MEREDITH documented as of this encounter Visit Diagnoses Not on filedocumented in this encounter Additional Health Concerns Assessment Noted Time PHQ-9 Depression Total Score: 8 09/02/19 24 11:12 AM EST documented as of this encounter Care Teams Dumping Machine Operator Relationship Specialty Start Date End Date Radha Shah FNP [address] [place] [address] PCP - General Family Medicine 04/21/23 04/25/24 Yecenia Frias FNP [address] [place] [address] PCP - General Family Medicine 04/26/24 Colby Hirsch FNP [address] [place] [address] Nurse Practitioner Family Medicine 07/13/23 Candice Ugarte Application Support ConsultantAssembler Production Line 12/27/23 documented as of this encounter
--- OUTSIDE RECORDS SUMMARY | 2024-09-25 14:35 | XMS_ITS | Encounter Summary ---
Author Organization [employer] Address [address] [facility] 7t [place] [address] Care Team Providers Care International Project Engineer Name Role Phone Radha Shah LICENSED OCCUPATIONAL THERAPIST Primary Care Provider [phone] Colby Hirsch Unavailable Unavailable [facility] Primary Care Provider [phone] Reason for Visit * Reason Comments Med Refill Encounter Details Date Type Department Care Team (Late st Contact Info) Description 04/12/2024 Refill [facility] MEDICINE [address] [place] [address] Radha Shah FNP [address] [place] [address] Multiple joint pain Social History Tobacco Use [...] housing situation today? I have dell rodriguez 03/01/[address] you li ve. Do you have problems with any of the following? None of the above 03/01/2024 Food Insecurity Answer Date Recorded Within the [...] from getting things needed for daily living? No;I am not sure 03/01/2024 Utilities Answer Date Recorded In the past 12 months, has t he electric, gas, oil or water company threatened to shut off services in your home? No 03/01/2024 Depression Answer Date Recorded Patient Health Questionnaire-2 Score 2 03/07/2024 Comments No Sex and Gender Information Value [...] Description 10/12/2024 2:00 PM EST Office Visit [facility] ADULT DENTAL [address] [place] [address] Phillip Borrego, DMD [address] [place] [address] 10/23/2024 1:00 PM EST Office Visit [facility] MEDICINE [address] [place] [address] Yecenia Frias FNP [address] [place] [address] 10/24/2024 1:00 PM EST Clinical Support [facility] MED[facility]INE [address] [place] [address] Kira Bansal, MEREDITH documented as of this encounter Visit Diagnoses Diagnosis Multiple joint pain Pain in joint, multiple sites documented in this encounter Additional Health Concerns Assessment Noted Time PHQ-9 Depression Total Score: 7 03/07/20 24 10:13 AM EDT documented as of this encounter Care Teams International Project Engineer Relationship Specialty Start Date End Date Radha Shah FNP [address] [place] [address] PCP - General Family Medicine 04/21/23 04/25/24 CrossvilleYecenia FNP [address] [place] [address] PCP - General Family Medicine 04/26/24 Colby Hirsch FNP [address] [place] [address] Nurse Practitioner Family Medicine 07/13/23 Candice Ugarte Parole SupervisorBrick Setter Operator 12/27/23 documented as of this encounter
--- OUTSIDE RECORDS SUMMARY | 2024-09-25 14:35 | XMS_ITS | Encounter Summary ---
Author Organization [employer] Address 75 [facility] 7t [place] [address] Care Team Providers Care Farmer Vegetable Name Role Phone Radha Shah [facility] Primary Care Provider [phone] Colby Hirsch PIPE OR STEAM FITTER FURNACE INSTALLER Unavailable Unavailable [facility] Primary Care Provider [phone] Reason for Visit * Reason Comments Med Refill Encounter Details Date Type Department Care Team (Late st Contact Info) Description 06/04/2023 Refill [facility] MEDICINE [address] [place] [address] Marilee Buckner FNP [address] [place] [address] Dept [place] [address] Multiple joint pain; Mixed anxiety and depressive disorder Social History Tobacco Use Types Packs/Day Years Used Date Smoking Tobacco: Never Passive Smoke Exposure: Never Smokeless Tobacco: Never Alcohol Use Standard Drinks/Week Comments Never 0 (1 standard drink = 0.6 oz pur e alcohol) Depression Answer Date Recorded Patient Health Questionnaire-9 Score 18 06/07/2023 Patient Health Questionnaire-9 Score 18 06/07/2023 Last PHQ-9: Questionnaire Data Not on file 1 Housing Stability Answer Date Recorded What is [...] Date Recorded Patient Health Questionnaire-2 Score 6 06/07/2023 Comments No Sex and Gender Information Value [...] Description 10/12/2024 2:00 PM EST Office Visit [facility] ADULT DENTAL [address] [place] [address] Phillip Borrego, MYA [address] [place] [address] 10/23/2024 1:00 PM EST Office Visit [facility] MEDICINE [address] [place] [address] [place] [facility] 230 [place] [address] 10/24/2024 1:00 PM EST Clinical Support [address] [address] Kira Bansal, MEREDITH documented as of this encounter Visit Diagnoses Diagnosis Multiple joint pain Pain in joint, multiple sites Mixed anxiety and depressive disorder Dysthymic disorder documented in this encounter Additional Health Concerns Assessment Noted Time PHQ-9 Depression Total Score: 0 04/02/20 2:10 PM EDT documented as of this encounter Care Teams Farmer Vegetable Relationship Specialty Start Date End Date Radha Shah FNP [address] [place] [address] PCP - General Family Medicine 04/21/23 04/25/24 [place]enn[place] FNP [address] [place] [address] PCP - General Family Medicine 04/26/24 Colby Hirsch FNP [address] [place] [address] Nurse Practitioner Family Medicine 07/13/23 Candice Ugarte Foundry TechnicianLining Machine Tender 12/27/23 documented as of this encounter
--- OUTSIDE RECORDS SUMMARY | 2024-09-25 14:36 | XMS_ITS | Encounter Summary ---
Author Organization [employer] Address 75 [facility] 7t [place] [address] Care Team Providers Care Product/Industry Consultant Name Role Phone Colby Hirsch POT PUSHER Unavailable Unavailable [facility] Primary Care Provider [phone] Reason for Visit * Reason Onset Date Comments FYI 06/23/2024 Encounter Details Date Type Department Care Team ([facility] Contact Info) Description 06/23/2024 Telephone [facility] MEDICINE 230 [place], [place] [phone] [facility] 230 [place] [address] FYI Social History Tobacco Use Types Packs/Day Years [...] Answer Date Recorded Internet Access Q1 Yes 04/24/2024 Internet Access Q2 Not on file 04/24/2024 Comments No Sex and Gender Information Value Date Recorded Sex Assigned at Female 06/22/2022 10:14 AM EDT Legal Sex Female 10:14 AM EDT Gender Identity Female 06/22/2022 10:14 AM EDT Sexual Orientation Choose not to disclose 2021 10:14 AM EDT documented as of this encounter Miscellaneous Notes * Telephone Encounter - Laina Hobbs - 06/23/2024 9:36 AM EDT Tc from Maribel at [facility] calling inform provider pt cancelled appointment with did not want to r/s. If any questions contact Maribel at [phone] documented in this encounter Plan of Treatment Upcoming Encounters Date Type Department Care Team (Late st Contact Info) Description 10/12/2024 2:00 PM EST Office Visit [facility] ADULT DENTAL 230 [place] [address] Phillip Borrego, MYA [address] [place] [address] 10/23/2024 1:00 PM EST Office Visit [facility] MEDICINE [address] [place] [address] Yecenia Frias FNP 230 [place] [address] 10/24/2024 1:00 PM EST Clinical Support [facility] MEDICINE [address] [place] [address] Kira Bansal, RN documented as of this encounter Visit Diagnoses Not on filedocumented in this encounter Additional Health Concerns Assessment Noted Time PHQ-9 Depression Total Score: 7 03/07/20 24 10:13 AM EDT documented as of this encounter Care Teams Product/Industry Consultant Relationship Specialty Start Date End Date Yecenia Frias FNP [address] [place] [address] PCP - General Family Medicine 04/26/24 Colby Hirsch FNP Nurse Practitioner Family Medicine 07/13/23 Candice Ugarte Land DeveloperBasin Tender 12/27/23 documented as of this encounter
--- OUTSIDE RECORDS SUMMARY | 2024-09-25 14:36 | XMS_ITS | Encounter Summary ---
Author Organization [employer] Address 75 [facility] 7t [place] [address] Care Team Providers Care Shafting Worker Name Role Phone Radha Shah CRATE REPAIRER Primary Care Provider [phone] Colby Hirsch Un[address] Unavailable [facility] Primary Care Provider [phone] Reason for Visit * Reason Comments Med Refill Encounter Details Date Type Department Care Team (Late st Contact Info) Description 02/16/2024 Refill [facility] MEDICINE [address] [place] [address] Radha Shah FNP [address] [place] [address] Multiple joint pain Social History Tobacco Use Types Packs/Day Years Used Date Smoking Tobacco: Never Passive Smoke Exposure: Never Smokeless Tobacco: Never Alcohol Use Standard Drinks/Week Comments Never 0 (1 standard drink = 0.6 oz pur e alcohol) Depression Answer Date Recorded Patient Health Questionnaire-9 Score 6 12/28/2023 Patient Health Questionnaire-9 Score 6 12/28/2023 Last PHQ-9: Questionnaire Data Not on file 0 12/28/2023 Housing Stability Answer Date Recorded What is [...] Date Recorded Patient Health Questionnaire-2 Score 2 12/28/2023 Comments No Sex and Gender Information Value [...] Description 10/12/2024 2:00 PM EST Office Visit [facility] ADULT DENTAL [address] [place] [address] Phillip Borrego, MYA [address] [place] [address] 10/23/2024 1:00 PM EST Office Visit [facility] MEDICINE [address] [place] [address] Yecenia Frias FNP 230 [place] [address] 10/24/2024 1:00 PM EST Clinical Support [facility] MEDICINE [address] [place] [address] Kira Bansal, MEREDITH documented as of this encounter Visit Diagnoses Diagnosis Multiple joint pain Pain in joint, multiple sites documented in this encounter Additional Health Concerns Assessment Noted Time PHQ-9 Depression Total Score: 6 12/28/19 24 11:17 AM EDT documented as of this encounter Care Teams Shafting Worker Relationship Specialty Start Date End Date Radha Shah FNP [address] [place] [address] PCP - General Family Medicine 04/21/23 04/25/24 Yecenia Frias FNP 230 [place] [address] PCP - General Family Medicine 04/26/24 Colby Hirsch FNP [address] [place] [address] Nurse Practitioner Family Medicine 07/13/23 Candice Ugarte Ambulance Operations SupervisorAviation Support Equipment Repairer 12/27/23 documented as of this encounter
--- OUTSIDE RECORDS SUMMARY | 2024-09-25 14:36 | XMS_ITS | Encounter Summary ---
Author Organization [employer] Address 75 [facility] 7t [place] [address] Care Team Providers Care Evaluation Advisor Name Role Phone Marc Nicolas Primary Care Provider Unavail able Radha Shah SUPERVISOR PIT AND AUXILIARIES Primary Care Provider [phone] Colby Hirsch Unavailable Unavailable [facility] SUPERVISOR PIT AND AUXILIARIES Primary Care Provider Reason for Visit * Reason Onset Date Comments Med Refill 03/08/2023 Encounter Details Date Type Department Care Team (Late st Contact Info) Description 03/08/2023 Refill [facility] MEDICINE 230 [place] [address] Marc Nicolas AGNP Mixed anxiety and depressive disorder Social History [...] with others, in a hotel, in a halfway, living outside on the street, on a [...] suspected to have Coronavirus/COVID-19? No / Unsure 02/17/2023 1:23 PM EDT documented as of this encounter Miscellaneous Notes * Telephone Encounter - JUANJO Rudolph - 03/10/2023 5:33 PM EDT I will discuss APARTMENT MAINTENANCE cancellations with patient at next appointment on 04/02 * Telephone Encounter - Romeo Child - 03/09/2023 1:10 PM EDT Tc from pt requesting if medication will be ready for Wednesday due to refill date being Wednesday03/14/2023. Pt states that Pharmacy advised that due on due date landing weekend there able to give scripton Wednesday03/12/2023. Please contact pt to clarify at [phone] Brazilian Speaker * Telephone Encounter - Kira Bansal RN - 03/08/2023 11:06 AM EDT Clonazepam refill request too early, Rx not due until 03/14/23. Pt has cancelled last 3 APARTMENT MAINTENANCE appts, now scheduled 03/17/23. Will send request to PCP for a SHORT SUPPLY on 03/11/23. * Telephone Encounter - Oscarjohn Silverio - 03/08/2023 10:55 AM EDT Tc from pt requesting a refill for clonazePAM (KlonoPIN) 0.5 MG tablet documented in this encounter Plan of Treatment Upcoming Encounters Date Type Department Care Team (Late st Contact Info) Description 10/12/2024 2:00 PM EST Office Visit [facility] ADULT DENTAL 230 [place] [address] Phillip Borrego, DMD 230 [place] [address] 10/23/2024 1:00 PM EST Office Visit [facility] MEDICINE [address] [place] [address] Yecenia Frias [facility] 230 [place] [address] 10/24/2024 1:00 PM EST Clinical Support [address] [address] Kira Bansal, MEREDITH documented as of this encounter Visit Diagnoses Diagnosis Mixed anxiety and depressive disorder Dysthymic disorder documented in this encounter Additional Health Concerns Assessment Noted Time PHQ-9 Depression Total Score: 13 023 3:27 PM EDT documented as of this encounter Care Teams Evaluation Advisor Relationship Specialty Start Date End Date Marc Nicolas AGNP PCP - General Family Medicine 10/22/22 04/20/23 Radha Shah FNP [address] [place] [address] PCP - General Family Medicine 04/21/23 04/25/24 Yecenia Frias FNP [address] [place] [address] PCP - General Family Medicine 04/26/24 Colby Hirsch FNP [address] [place] [address] Nurse Practitioner Family Medicine 07/13/23 Candice Ugarte Truck Sales ManagerVamp Cut Out Worker 12/27/23 documented as of this encounter
--- OUTSIDE RECORDS SUMMARY | 2024-09-25 14:36 | XMS_ITS | Encounter Summary ---
Author Organization [employer] Address [address] [facility] 7t [place] [address] Care Team Providers Care Charcoal Unloader Name Role Phone Radha Shah LOOP DRIER OPERATOR Primary Care Provider [phone] Colby Hirsch Unavailable Unavailable [facility] Primary Care Provider [phone] Reason for Visit * Reason Comments Med Refill Encounter Details Date Type Department Care Team (Late st Contact Info) Description 06/30/2023 Refill [facility] MEDICINE 230 [place] [address] Radha Shah FNP 230 [place] [address] Multiple joint pain Social History Tobacco Use Types Packs/Day Years Used Date Smoking Tobacco: Never Passive Smoke Exposure: Never Smokeless Tobacco: Never Alcohol Use Standard Drinks/Week Comments Never 0 (1 standard drink = 0.6 oz pur e alcohol) Depression Answer Date Recorded Patient Health Questionnaire-9 Score 6 06/15/2023 Patient Health Questionnaire-9 Score 6 06/15/2023 Last PHQ-9: Questionnaire Data Not on file [...] Date Recorded Patient Health Questionnaire-2 Score 1 06/15/2023 Comments No Sex and Gender Information Value [...] Description 10/12/2024 2:00 PM EST Office Visit [facility] ADULT DENTAL 230 [place] [address] Phillip Borrego, MYA 230 [place] [address] 10/23/2024 1:00 PM EST Office Visit [facility] MEDICINE [address] [place] [address] Yecenia Frias FNP 230 [place] [address] 10/24/2024 1:00 PM EST Clinical Support [facility] MEDICINE [address] [place] [address] Kira Bansal, MEREDITH documented as of this encounter Visit Diagnoses Diagnosis Multiple joint pain Pain in joint, multiple sites documented in this encounter Additional Health Concerns Assessment Noted Time PHQ-9 Depression Total Score: 6 06/15/20 10:23 AM EDT documented as of this encounter Care Teams Charcoal Unloader Relationship Specialty Start Date End Date Radha Shah FNP 230 [place] [address] PCP - General Family Medicine 04/21/23 04/25/24 Yecenia Frias FNP 230 [place] [address] PCP - General Family Medicine 04/26/24 Colby Hirsch FNP 230 [place] [address] Nurse Practitioner Family Medicine 07/13/23 Candice Ugarte Cross RollerEndoscopy Nurse 12/27/23 documented as of this encounter
--- OUTSIDE RECORDS SUMMARY | 2024-09-25 14:36 | XMS_ITS | Encounter Summary ---
Author Organization [employer] Address [address] [facility] 7t [place] [address] Care Team Providers Care Formulation Scientist Name Role Phone Marc Nicolas Primary Care Provider Unavail able Radha Shah RADIO MECHANIC Primary Care Provider [phone] Colby Hirsch Unavailable Unavailable [facility] RADIO MECHANIC Primary Care Provider [phone] Reason for Visit * Reason Comments Med Refill Encounter Details Date Type Department Care Team (Late st Contact Info) Description 03/10/2023 Refill [facility] 230 [place] [address] Marc Nicolas AGNP Mixed anxiety and depressive disorder; Multiple joint pain Social History Tobacco Use Types Packs/Day Years Used Date Smoking Tobacco: Never Passive Smoke Exposure: Never Smokeless Tobacco: Never Alcohol Use Standard Drinks/Week Comments Never 0 (1 standard drink = 0.6 oz pur e alcohol) PHQ-2 Answer Date Recorded Patient Health Questionnaire-2 Score 5 03/05/2023 Comments No Sex and Gender Information Value [...] encounter Miscellaneous Notes * Telephone Encounter - Kira Bansal RN - 03/15/2023 9:53 AM EDT Tramadol refill request too soon, not due until 03/19/23. Will send to PCP on 03/18/23. Has OUTREACH ANALYST scheduled 03/17/23. * Telephone Encounter - Chika Low - 03/15/2023 9:14 AM EDT Tc from patient requesting a med refill for medication tramadol [address] Nicolas documented in this encounter Plan of Treatment Upcoming Encounters Date Type Department Care Team (Late st Contact Info) Description 10/12/2024 2:00 PM EST Office Visit [facility] ADULT DENTAL 230 [place] [address] Phillip Borrego, DMD 230 [place] [address] 10/23/2024 1:00 PM EST Office Visit [facility] MEDICINE [address] [place] [address] Yecenia Frias FNP 230 [place] [address] 10/24/2024 1:00 PM EST Clinical Support [address] [address] Kira Bansal RN documented as of this encounter Visit Diagnoses Diagnosis Mixed anxiety and depressive disorder Dysthymic disorder Multiple joint pain Pain in joint, multiple sites documented in this encounter Additional Health Concerns Assessment Noted Time PHQ-9 Depression Total Score: 13 023 3:27 PM EDT documented as of this encounter Care Teams Formulation Scientist Relationship Specialty Start Date End Date Marc Nicolas AGNP PCP - General Family Medicine 10/22/22 04/20/23 Radha Shah FNP [address] [place] [address] PCP - General Family Medicine 04/21/23 04/25/24 [facility] [address] [place] [address] PCP - General Family Medicine 04/26/24 Colby Hirsch FNP 230 [place] [address] Nurse Practitioner Family Medicine 07/13/23 Candice Ugarte Grading Machine OperatorProduction Dispatcher 12/27/23 documented as of this encounter
--- OUTSIDE RECORDS SUMMARY | 2024-09-25 14:36 | XMS_ITS | Encounter Summary ---
Author Organization [employer] Address [address] [facility] 7t [place] [address] Care Team Providers Care Channel Marketing Coordinator Name Role Phone Colby Hirsch FEATHER MAKER Unavailable Unavailable [facility] FEATHER MAKER Primary Care Provider [phone] Reason for Visit * Reason Comments Med Refill Encounter Details Date Type Department Care Team (Late st Contact Info) Description 09/25/2024 Refill [facility] MED [facility] PEDS [address] [place] [address] Radha Shah FNP [address] [place] [address] Social History Tobacco Use Types Packs/Day Years [...] with others, in a hotel, in a mcfp, living outside on the street, on a [...] Description 10/12/2024 2:00 PM EST Office Visit [facility] ADULT DENTAL [address] [place] [address] Phillip Borrego, DMD [address] [place] [address] 10/23/2024 1:00 PM EST Office Visit [facility] MEDICINE 230 [place] [address] Yecenia Frias FNP 230 [place] [address] 10/24/2024 1:00 PM EST Clinical Support [facility] MEDICINE [address] [place] [address] Kira Bansal RN documented as of this encounter Visit Diagnoses Not on filedocumented in this encounter Additional Health Concerns Assessment Noted Time PHQ-9 Depression Total Score: 7 03/07/20 24 10:13 AM EDT documented as of this encounter Care Teams Channel Marketing Coordinator Relationship Specialty Start Date End Date Yecenia Frias FNP 230 [place] [address] PCP - General Family Medicine 04/26/24 Colby Hirsch FNP Nurse Practitioner Family Medicine 07/13/23 Candice Ugarte Commercial ReporterFoundry Hand 12/27/23 documented as of this encounter
--- OUTSIDE RECORDS SUMMARY | 2024-09-25 14:36 | XMS_ITS | Encounter Summary ---
Author Organization [employer] Address 75 [facility] 7t [place] [address] Care Team Providers Care Supercharger Repair Supervisor Name Role Phone Colby Hirsch HEALTH AND NUTRITION SPECIALIST Unavailable Unavailable [facility] Primary Care Provider [phone] Encounter Details Date Type Department Care Team ([facility] st Contact Info) Description 08/11/2024 Telephone [facility] MEDICINE [address] [place] [address] [facility] [address] [place] [address] Social History Tobacco Use Types Packs/Day Years [...] with others, in a hotel, in a longterm, living outside on the street, on a [...] Description 10/12/2024 2:00 PM EST Office Visit [facility] ADULT DENTAL [address] [place] [address] Phillip Borrego, DMD [address] [place] [address] 10/23/2024 1:00 PM EST Office Visit [facility] MEDICINE [address] [place] [address] [place] [facility] [address] [place] [address] 10/24/2024 1:00 PM EST Clinical Support [facility] MEDICINE [address] [place] [address] Kira Bansal RN documented as of this encounter Visit Diagnoses Not on filedocumented in this encounter Additional Health Concerns Assessment Noted Time PHQ-9 Depression Total Score: 7 03/07/20 24 10:13 AM EDT documented as of this encounter Care Teams Supercharger Repair Supervisor Relationship Specialty Start Date End Date Yecenia Frias [facility] 230 [place] [address] PCP - General Family Medicine 04/26/24 Colby Hirsch FNP Nurse Practitioner Family Medicine 07/13/23 Candice Ugarte Personal Security SpecialistApprentice Painter Hand 12/27/23 documented as of this encounter
--- OUTSIDE RECORDS SUMMARY | 2024-09-25 14:36 | XMS_ITS | Encounter Summary ---
Author Organization [employer] Address 75 [facility] 7t [place] [address] Care Team Providers Care Delivery Assistant Name Role Phone Colby Hirsch MONEY EXAMINER Unavailable Unavailable [facility] Primary Care Provider [phone] Reason for Visit * Reason Onset Date Comments Med Refill 09/01/2024 Encounter Details Date Type Department Care Team ([facility] st Contact Info) Description 09/01/2024 Refill [facility] MEDICINE [address] [place], [place] [phone] [facility] [address] [place] [address] Multiple joint pain Social History Tobacco Use [...] with others, in a hotel, in a residential, living outside on the street, on a [...] encounter Miscellaneous Notes * Telephone Encounter - Hari Hinkle - 09/01/2024 8:57 AM EST TC from pt requesting medication refill. Medications needing refill : traMADol (Ultram) 50 MG tablet To be sent to: [facility] - [place], [place] - [address] [place] [address] documented in this encounter Plan of Treatment Upcoming Encounters Date Type Department Care Team ([facility] st Contact Info) Description 10/12/2024 2:00 PM EST Office Visit [facility] ADULT DENTAL [address] [place] [address] Phillip Borrego, DMD [address] [place] [address] 10/23/2024 1:00 PM EST Office Visit [facility] MEDICINE [address] [place] [address] AltagraciaYecenia whipple, MONEY EXAMINER [address] [place] [address] 10/24/2024 1:00 PM EST Clinical Support [facility] MEDICINE [address] [place] [address] Kira Bansal, MEREDITH documented as of this encounter Visit Diagnoses Diagnosis Multiple joint pain Pain in joint, multiple sites documented in this encounter Additional Health Concerns Assessment Noted Time PHQ-9 Depression Total Score: 7 03/07/20 24 10:13 AM EDT documented as of this encounter Care Teams Delivery Assistant Relationship Specialty Start Date End Date Yecenia Frias FNP 230 [facility] [place] [address] PCP - General Family Medicine 04/26/24 Colby Hirsch FNP Nurse Practitioner Family Medicine 07/13/23 Candice Ugarte First Aid AttendantScenic Designer 12/27/23 documented as of this encounter
--- OUTSIDE RECORDS SUMMARY | 2024-09-25 14:36 | XMS_ITS | Encounter Summary ---
Author Organization [employer] Address 75 [facility] [place] [address] Care Team Providers Care Word Processing Supervisor Name Role Phone Colby Hirsch STRUCTURAL STEEL IRONWORKER Unavailable Unavailable [facility] Primary Care Provider [phone] Reason for Visit * Reason Comments Care [facility]ination [facility] call outreach Encounter Details Date Type Department Care Team (Latest Contact Info) Description 09/18/2024 Patient Outreach [facility] MEDICINE [address] [place] [address] [facility] [address] [place] [address] Care Coordination (C3 -FELIPE Obrien telephone call outreach ) Social History Tobacco Use Types Packs/Day Years [...] with others, in a hotel, in a fpc, living outside on the street, on a [...] AM EDT documented as of this encounter Progress Notes * Kelly Obrien - 09/18/2024 4:07 PM EST CHW Kelly Obrien met with pt and filled out apartment applications. documented in this encounter Plan of Treatment Upcoming Encounters Date Type Department Care Team (Late st Contact Info) Description 10/12/2024 2:00 PM EST Office Visit [facility] ADULT DENTAL [address] [place] [address] Phillip Borrego, DMD [address] [place] [address] 10/23/2024 1:00 PM EST Office Visit [facility] MEDICINE [address] [place] [address] Yecenia Frias FNP [address] [place] [address] 10/24/2024 1:00 PM EST Clinical Support [facility] [address] [place] [address] Kira Bansal, RN documented as of this encounter Visit Diagnoses Not on filedocumented in this encounter Additional Health Concerns Assessment Noted Time PHQ-9 Depression Total Score: 7 03/07/20 24 10:13 AM EDT documented as of this encounter Care Teams Word Processing Supervisor Relationship Specialty Start Date End Date Yecenia Frias FNP [address] [place] [address] PCP - General Family Medicine 04/26/24 Colby Hirsch FNP Nurse Practitioner Family Medicine 07/13/23 Candice Ugarte Blood Bank Credit ClerkRegistered Clinical Dietitian 12/27/23 documented as of this encounter
--- OUTSIDE RECORDS SUMMARY | 2024-09-25 14:36 | XMS_ITS | Encounter Summary ---
Author Organization [employer] Address 75 [facility] 7t [place] [address] Care Team Providers Care Automation Control Integrator Name Role Phone Radha Shah TRANSMISSION INSPECTOR Primary Care Provider [phone] Colby Hirsch TRANSMISSION INSPECTOR Unavailable Unavailable [facility] TRANSMISSION INSPECTOR Primary Care Provider [phone] Reason for Visit * Reason Onset Date Comments Results 02/16/2024 Care Coordination 02/16/[address] Kelly joshua telephone call outreached Encounter Details Date Type Department Care Team ([facility] st Contact Info) Description 02/16/2024 Telephone [facility] MEDICINE [address] [place] [address] Radha Shah FNP [address] [place] [address] Results; Care Coordination ([facility] telephone call outreached) Social History Tobacco Use Types Packs/Day Years [...] Telephone Encounter - Laura Adame RN - 02/17/2024 9:18 AM EDT T/C to pt. For below message, pt. Verbally agreed and understood. * Telephone Encounter - JACINTO Ramos - 02/16/2024 7:16 PM EDT Please notify patient her lab tests were stable. There is no need for further testing at this time. ANGIE Ramos * Telephone Encounter - Laura Adame RN - 02/16/2024 4:34 PM EDT Please review and advise for below request. Result is in pt's chart. * Telephone Encounter - Natividad Pate - 02/16/2024 3:47 PM EDT TC from pt requesting call back regarding Results. Type of results: labs Date when done: 02/06 Facility: [facility] Please contact pt at [phone] documented in this encounter Plan of Treatment Upcoming Encounters Date Type Department Care Team (Late st Contact Info) Description 10/12/2024 2:00 PM EST Office Visit [facility] ADULT DENTAL [address] [place] [address] Phillip Borrego, DMD [address] [place] [address] 10/23/2024 1:00 PM EST Office Visit [facility] MEDICINE [address] [place] [address] Yecenia Frias FNP 230 [place] [address] 10/24/2024 1:00 PM EST Clinical Support [address] [address] Kira Bansal, MEREDITH documented as of this encounter Visit Diagnoses Not on filedocumented in this encounter Additional Health Concerns Assessment Noted Time PHQ-9 Depression Total Score: 6 12/28/19 24 11:17 AM EDT documented as of this encounter Care Teams Automation Control Integrator Relationship Specialty Start Date End Date Radha Shah FNP [address] [place] [address] PCP - General Family Medicine 04/21/23 04/25/24 Yecenia Frias FNP [address] [place] [address] PCP - General Family Medicine 04/26/24 Colby Hirsch FNP [address] [place] [address] Nurse Practitioner Family Medicine 07/13/23 Candice Ugarte Police AideHvac Sheet Metal Installer Helper 12/27/23 documented as of this encounter
--- OUTSIDE RECORDS SUMMARY | 2024-09-25 14:36 | XMS_ITS | Encounter Summary ---
Author Organization [email or web address] Address 75 [facility] 7t [place] [address] Care Team Providers Care Therapeutic Strategy Lead Name Role Phone Radha Shah RIGGING FOREMAN Primary Care Provider [phone] Colby Hirsch RIGGING FOREMAN Unavailable Unavailable [facility] RIGGING FOREMAN Primary Care Provider [phone] Encounter Details Date Type Department Care Team (Late st Contact Info) Description 04/24/2024 Orders Only [facility] CHC MED & PEDS [address] [place] [address] Radha Shah FNP [address] [place] [address] Elevated lipids (Primary Dx) Social History Tobacco Use Types Packs/Day Years [...] Description 10/12/2024 2:00 PM EST Office Visit [facility] ADULT DENTAL [address] [place] [address] Phillip Borrego, DMD [address] [place] [address] 10/23/2024 1:00 PM EST Office Visit [facility] MEDICINE [address] [place] [address] Altagracia, Yecenia, RIGGING FOREMAN [address] [place] [address] 10/24/2024 1:00 PM EST Clinical Support [facility] MEDICINE [address] [place] [address] Kira Bansal RN documented as of this encounter Procedures Procedure Name Priority Date/Time Associated Diagnosis Comments LIPID PANEL, STANDARD Routine 05/12/2024 11:00 AM EDT Elevated lipids documented in this encounter Results * (ABNORMAL) Lipid Panel, Standard (05/12/2024 11:00 AM EDT) Triglycerides 100 <150 mg/dL [facility] Comment:Desirable Triglyceri de: less than 150 mg/dLBorderline High Triglyceride 150-199 mg/dLHigh Triglyceride: 200-499 mg/dLVery High Triglyceride: greater than or equal to 5OO mg/dL Cholesterol 101 <200 mg/dL [facility] Comment:Desirable Cholestero l: less than 200 mg/dLBorderline High Cholesterol: 200-239 mg/dLHigh Cholesterol: greater than 239 mg/dL LDL Cholesterol Calculated 44 <100 mg/dL [facility] Comment:Desirable LDL: less than 100 mg/dLNear Optimal/Above Optimal LDL: 110- 129 mg/dLBorderline High LDL: 130-159 mg/dLHigh LDL: 160-189 mg/dLVery High LDL: greater than or equal to 190 mg/dL HDL Cholesterol 37(L) >40 mg/dL [facility] Comment:Desirable HDL: great er than 40 mg/dL Note: This HDL assay may give artificially low results in patients with liver disease. Blood Venous blood specimen / Unknown 05/12/2024 11:00 AM EDT 05/12/2024 11:00 AM EDT us Radha CASEY LAB BLOOD ORDERABLES Final Resu lt [facility] [address] [place] [address] [phone] documented in this encounter Visit Diagnoses Diagnosis Elevated lipids- Primary documented in this encounter Additional Health Concerns Assessment Noted Time PHQ-9 Depression Total Score: 7 03/07/20 24 10:13 AM EDT documented as of this encounter Care Teams Therapeutic Strategy Lead Relationship Specialty Start Date End Date Radha Shah FNP [address] [place] [address] PCP - General Family Medicine 04/21/23 04/25/24 Yecenia Frias FNP [address] [place] [address] PCP - General Family Medicine 04/26/24 Colby Hirsch FNP [address] [place] [address] Nurse Practitioner Family Medicine 07/13/23 Candice Ugarte Car SanderBelt Repairer 12/27/23 documented as of this encounter
--- OUTSIDE RECORDS SUMMARY | 2024-09-25 14:36 | XMS_ITS | Encounter Summary ---
Author Organization [employer] Address 75 [facility] 7t [place] [address] Care Team Providers Care Take Away Worker Name Role Phone Marc Nicolas Primary Care Provider Unavail able Radha Shah TRIAL MANAGER Primary Care Provider [phone] Colby Hirsch Unavailable Unavailable [facility] TRIAL MANAGER Primary Care Provider [phone] Reason for Visit * Reason Comments Med Refill Encounter Details Date Type Department Care Team (Late Contact Info) Description 04/07/2023 Refill [facility] CHC MED & PEDS [address] [place] [address] Marc Nicolas AGNP Multiple joint pain Social History Tobacco Use [...] Encounters Date Type Department Care Team (Late Contact Info) Description 10/12/2024 2:00 PM EST Office Visit [facility] ADULT DENTAL [address] [place], [place] [phone] Phillip Borrego, MYA [address] [place], [place] [phone] 10/23/2024 1:00 PM EST Office Visit [facility] [place] [address] AltagraciaYecenia [place] [address] 10/24/2024 1:00 PM EST Clinical Support [address] [address] Kira Bansal, MEREDITH documented as of this encounter Visit Diagnoses Diagnosis Multiple joint pain Pain in joint, multiple sites documented in this encounter Additional Health Concerns Assessment Noted Time PHQ-9 Depression Total Score: 0 04/02/20 2:10 PM EDT documented as of this encounter Care Teams Take Away Worker Relationship Specialty Start Date End Date Marc Nicolas AGNP PCP - General Family Medicine 10/22/22 04/20/23 Radha Shah FNP [address] [place] [address] PCP - General Family Medicine 04/21/23 04/25/24 [place] Tri[place] whipple FNP [address] [place] [address] PCP - General Family Medicine 04/26/24 Colby Hirsch FNP [address] [place] [address] Nurse Practitioner Family Medicine 07/13/23 Candice Ugarte PulverizerWorkers' Compensation Hearings Officer 12/27/23 documented as of this encounter
--- OUTSIDE RECORDS SUMMARY | 2024-09-25 14:36 | XMS_ITS | Encounter Summary ---
Author Organization [employer] Address 75 [facility] 7t [place] [address] Care Team Providers Care Rayon Tester Name Role Phone Radha Shah SIDING MECHANIC Primary Care Provider [phone] Colby Hirsch Unavailable Unavailable [facility] Primary Care Provider [phone] Reason for Visit * Reason Comments Med Refill Encounter Details Date Type Department Care Team (Late st Contact Info) Description 07/02/2023 Refill [facility] [address] [place] [address] Radha Shah FNP [address] [place] [address] Multiple joint pain Social History Tobacco Use [...] Description 10/12/2024 2:00 PM EST Office Visit [facility] ADULT DENTAL [address] [place] [address] Phillip Borrego, MYA [address] [place] [address] 10/23/2024 1:00 PM EST Office Visit [facility] [address] [place] [address] Yecenia Frias FNP [address] [place] [address] 10/24/2024 1:00 PM EST Clinical Support [facility] [address] [place] [address] Kira Bansal, MEREDITH documented as of this encounter Visit Diagnoses Diagnosis Multiple joint pain Pain in joint, multiple sites documented in this encounter Additional Health Concerns Assessment Noted Time PHQ-9 Depression Total Score: 6 06/15/20 10:23 AM EDT documented as of this encounter Care Teams Rayon Tester Relationship Specialty Start Date End Date Radha Shah FNP [address] [place] [address] PCP - General Family Medicine 04/21/23 04/25/24 Yecenia Frias FNP [address] [place] [address] PCP - General Family Medicine 04/26/24 Colby Hirsch FNP [address] [place] [address] Nurse Practitioner Family Medicine 07/13/23 Candice Ugarte Count Team MemberDirector Of Pharmacy 12/27/23 documented as of this encounter
--- OUTSIDE RECORDS SUMMARY | 2024-09-25 14:36 | XMS_ITS | Encounter Summary ---
Author Organization [employer] Address 75 [facility] 7t [place] [address] Care Team Providers Care Procurement Professional Name Role Phone Radha Shah CONTENT COORDINATOR Primary Care Provider [phone] Colby Hirsch CONTENT COORDINATOR Unavailable Unavailable [facility] CONTENT COORDINATOR Primary Care Provider [phone] Reason for Visit * Reason Comments Med Refill Encounter Details Date Type Department Care Team (Late st Contact Info) Description 06/28/2023 Refill [facility] CHC MED & PEDS [address] [place] [address] Radha Shah FNP [address] [place] [address] Schizoaffective disorder, depressive type (CMS/HCC) Social History Tobacco Use Types Packs/Day Years [...] Description 10/12/2024 2:00 PM EST Office Visit [facility] ADULT DENTAL [address] [place] [address] Phillip Borrego, MYA [address] [place] [address] 10/23/2024 1:00 PM EST Office Visit [facility] MEDICINE [address] [place] [address] Yecenia Frias FNP [address] [place] [address] 10/24/2024 1:00 PM EST Clinical Support [facility] MEDICINE [address] [place] [address] Kira Bansal, MEREDITH documented as of this encounter Visit Diagnoses Diagnosis Schizoaffective disorder, depressive type (CMS/HCC) Schizoaffective disorder, unspecified condition documented in this encounter Additional Health Concerns Assessment Noted Time PHQ-9 Depression Total Score: 6 06/15/20 23 10:23 AM EDT documented as of this encounter Care Teams Procurement Professional Relationship Specialty Start Date End Date Radha Shah FNP [address] [place] [address] PCP - General Family Medicine 04/21/23 04/25/24 AltagraciaYecenia whipple FNP [address] [place] [address] PCP - General Family Medicine 04/26/24 Colby Hirsch FNP [address] [place] [address] Nurse Practitioner Family Medicine 07/13/23 Candice Ugarte Money ManagerPropellant Charge Zone Assembler 12/27/23 documented as of this encounter
--- OUTSIDE RECORDS SUMMARY | 2024-09-25 14:36 | XMS_ITS | Encounter Summary ---
Author Organization [employer] [facility] Address 75 [facility] 7t [place] [address] Care Team Providers Care Truck Greaser Name Role Phone Marc Nicolas Primary Care Provider Unavail able Radha Shah QUICK MIXER OPERATOR Primary Care Provider [phone] Colby Hirsch Unavailable Unavailable [facility] QUICK MIXER OPERATOR Primary Care Provider [phone] Reason for Visit * Reason Comments Med Refill Encounter Details Date Type Department Care Team (Late st Contact Info) Description 04/08/2023 Refill [facility] MEDICINE [address] [place] [address] Marc Nicolas AGNP Schizoaffective disorder, depressive type (CMS/HCC); Mixed anxiety and depressive disorder Social History [...] Description 10/12/2024 2:00 PM EST Office Visit [facility] ADULT DENTAL [address] [place], [place] [phone] Phillip Borrego DMD [address] [place] [address] 10/23/2024 1:00 PM EST Office Visit [facility] [place] [address] Yecenia Frias FNP [facility] [place] 10/24/2024 1:00 PM EST Clinical Support [facility] [place] [address] Kira Bansal, MEREDITH documented as of this encounter Visit Diagnoses Diagnosis Schizoaffective disorder, depressive type (CMS/HCC) Schizoaffective disorder, unspecified condition Mixed anxiety and depressive disorder Dysthymic disorder documented in this encounter Additional Health Concerns Assessment Noted Time PHQ-9 Depression Total Score: 0 04/02/20 2:10 PM EDT documented as of this encounter Care Teams Truck Greaser Relationship Specialty Start Date End Date Marc Nicolas AGNP PCP - General Family Medicine 10/22/22 04/20/23 [place] [address] PCP - General Family Medicine 04/21/23 04/25/24 [place]enia [place] [address] PCP - General Family Medicine 04/26/24 Colby Hirsch FNP [address] [place] [address] Nurse Practitioner Family Medicine 07/13/23 Candice Ugarte Radiator SpecialistPit Furnace Operator 12/27/23 documented as of this encounter
--- OUTSIDE RECORDS SUMMARY | 2024-09-25 14:36 | XMS_ITS | Encounter Summary ---
Author Organization [employer] Address 75 [facility] 7t [place] [address] Care Team Providers Care Overlock Sewing Machine Operator Name Role Phone Marc Nicolas Primary Care Provider Unavail able Radha Sahh Primary Care Provider [phone] Colby Hirsch Unavailable Unavailable [facility] SENIOR ERP CONSULTANT Primary Care Provider Reason for Visit * Reason Onset Date Comments Med Refill 04/09/2023 Encounter Details Date Type Department Care Team (Late st Contact Info) Description 04/09/2023 Refill [facility] MEDICINE [address] [place] [address] Marc Nicolas AGNP Mixed anxiety and depressive [...] encounter Miscellaneous Notes * Telephone Encounter - JACINTO Danielle - 04/13/2023 8:55 AM EDT Reviewed PDMP for pt name listed in EHR, no record. Spoke with [facility] pharmacy, she is listed as Romaine Rodriguez in their system. Looking up with changed spelling of first name did allow for PDMP search. Med sent to pharmacy. Sending as FYI. * Telephone Encounter - Kira Bansal RN - 04/09/2023 12:26 PM EDT Clonazepam refill request to soon, not due until 04/15/23. Will submit to covering PCP on 04/13/23. * Telephone Encounter - Romeo Child - 04/09/2023 12:13 PM EDT Tc from pt requesting medx refill on clonazePAM (KlonoPIN) 0.5 MG tablet Please sent to [facility] - [place], [place] - [address] [place] [address] documented in this encounter Plan of Treatment Upcoming Encounters Date Type Department Care Team (Late st Contact Info) Description 10/12/2024 2:00 PM EST Office Visit [facility] ADULT DENTAL [address] [place] [address] Phillip Borrego, DMD [address] [place] [address] 10/23/2024 1:00 PM EST Office Visit [facility] MEDICINE [address] [place] [address] ScipioYecenia FNP [address] [place] [address] 10/24/2024 1:00 PM EST Clinical Support [address] [address] Kira Bansal, MEREDITH documented as of this encounter Visit Diagnoses Diagnosis Mixed anxiety and depressive disorder Dysthymic disorder documented in this encounter Additional Health Concerns Assessment Noted Time PHQ-9 Depression Total Score: 0 04/02/20 23 2:10 PM EDT documented as of this encounter Care Teams Overlock Sewing Machine Operator Relationship Specialty Start Date End Date Macr Nicolas AGNP PCP - General Family Medicine 10/22/22 04/20/23 Radha Shah FNP [address] [place] [address] PCP - General Family Medicine 04/21/23 04/25/24 ScipioYecenia FNP [address] [place] [address] PCP - General Family Medicine 04/26/24 Colby Hirsch FNP [address] [place] [address] Nurse Practitioner Family Medicine 07/13/23 Candice Ugarte Airframe Technical OfficerHand Tube Bender 12/27/23 documented as of this encounter
--- OUTSIDE RECORDS SUMMARY | 2024-09-25 14:36 | XMS_ITS | Encounter Summary ---
Author Organization [employer] Address 75 [facility] [address] Care Team Providers Care House Admin Name Role Phone Colby Hirsch SPECIAL EVENTS COORDINATOR Unavailable Unavailable [facility] Primary Care Provider [phone] Reason for Visit * Reason Comments [facility] Coordination [facility] call [facility] Encounter Details Date Type Department Care Team (Latest Contact Info) Description 09/06/2024 Patient Outreach [facility] MEDICINE [address] [place] [address] [facility] [address] [place] [address] Care Coordination (C3 -FELIPE Obrien telephone call outreach) Social History Tobacco Use Types Packs/Day Years [...] with others, in a hotel, in a detention, living outside on the street, on a [...] encounter Progress Notes * Kelly Obrien - 09/06/2024 3:02 PM EST CHW Kelly Obrien placed outbound call to patient to follow up on SDOH needs. Patient's name, andaddress confirmed. CHW spoke to patient she is in [place] she had an emergency; she has appliedto couple of apartments. Patient states is doing well. No further questions or concerns. CHW reinforced direct contact information or CM for any additional questions or concerns and extended clinic hours on Mondays and Wednesdays, and Walk-In Urgent Care Located in [facility]. Patient provided with after-hours line for [facility], , which offer nighttime triage service and option to transfer to newspaper correspondent provider ifneeded. Patient verbalizes understanding, and able to repeat back to telegraphic typewriter repairer. A follow up call will be placed within 10 days, patient agrees with plan. documented in this encounter Plan of Treatment Upcoming Encounters Date Type Department Care Team (Late st Contact Info) Description 10/12/2024 2:00 PM EST Office Visit [facility] ADULT DENTAL [address] [place], [place] [phone] Phillip Borrego, DMD [address] [place], [place] 10/23/2024 1:00 PM EST Office Visit [facility] [address] [place] [address] Yecenia Frias FNP [address] [place], [place] 10/24/2024 1:00 PM EST Clinical Support [facility] [address] [place], [place] [phone] Kira Bansal RN documented as of this encounter Visit Diagnoses Not on filedocumented in this encounter Additional Health Concerns Assessment Noted Time PHQ-9 Depression Total Score: 7 03/07/20 24 10:13 AM EDT documented as of this encounter Care Teams House Admin Relationship Specialty Start Date End Date Yecenia Frias FNP [address] [place] [address] PCP - General Family Medicine 04/26/24 Colby Hirsch FNP Nurse Practitioner Family Medicine 07/13/23 Candice Ugarte Receiving Dock CheckerButcher Helper 12/27/23 documented as of this encounter
--- OUTSIDE RECORDS SUMMARY | 2024-09-25 14:36 | XMS_ITS | Encounter Summary ---
Author Organization [employer] [facility] Address 75 [facility] 7t [place] [address] Care Team Providers Care Mill Crane Operator Name Role Phone Marc Nicolas Primary Care Provider Unavail able Radha Shah MANAGER OF BUSINESS Primary Care Provider [phone] Colby Hirsch Unavailable Unavailable [facility] MANAGER OF BUSINESS Primary Care Provider [phone] Reason for Visit * Reason Comments Med Refill Encounter Details Date Type Department Care Team (Late Contact Info) Description 04/08/2023 Refill [facility] MEDICINE [address] [place] [address] Marc Nicolas AGNP Mixed anxiety and depressive [...] 2:00 PM EST Office Visit [facility] ADULT DENTAL [address] [place], [place] [phone] Phillip Borrego, MYA [address] [place] [address] 10/23/2024 1:00 PM EST Office Visit [facility] [address] AltagraciaYecenia whipple [facility] [place] [address] 10/24/2024 1:00 PM EST Clinical Support [address] [address] Kira Bansal, MEREDITH documented as of this encounter Visit Diagnoses Diagnosis Mixed anxiety and depressive disorder Dysthymic disorder documented in this encounter Additional Health Concerns Assessment Noted Time PHQ-9 Depression Total Score: 0 04/02/20 2:10 PM EDT documented as of this encounter Care Teams Mill Crane Operator Relationship Specialty Start Date End Date Marc Nicolas AGNP PCP - General Family Medicine 10/22/22 04/20/23 Radha Shah FNP [address] [place] [address] PCP - General Family Medicine 04/21/23 04/25/24 Saint LiboryYecenia whipple FNP [address] [place] [address] PCP - General Family Medicine 04/26/24 oClby Hirsch FNP [address] [place] [address] Nurse Practitioner Family Medicine 07/13/23 Candice Ugarte Valuation ConsultantNational Accounts Recruiter 12/27/23 documented as of this encounter
--- OUTSIDE RECORDS SUMMARY | 2024-09-25 14:36 | XMS_ITS | Encounter Summary ---
Author Organization [employer] Address 75 [facility] [address], [place] [address] Care Team Providers Care Virtualization Architect Name Role Phone Colby Hirsch MANAGER OF PHARMACY Unavailable Unavailable [facility] Primary Care Provider [phone] Reason for Visit * Reason Comments Care [facility]ination [facility] outreach Encounter Details Date Type Department Care Team (Latest Contact Info) Description 09/21/2024 Patient Outreach [facility] MEDICINE 230 [place] [address] [facility] 230 [place] [address] Care Coordination (C3 -FELIPE Obrien telephone call [...] encounter Progress Notes * Kelly Obrien - 09/21/2024 10:58 AM EST CHW Kelly Obrien placed outbound call to patient to follow up on SDOH needs. Patient's name, andaddress confirmed. CHW spoke to patient she went to [facility] and filled out an application. Patient states is doing well. No further questions or concerns. CHW reinforced direct contact information or CM for any additional questions or concerns and extended clinic hours on Mondays and Wednesdays, and Walk-In Urgent Care Located in [facility] of [facility]. Patient provided with after-hours line for [facility], , which offer night time triage service and option to transfer to front desk host provider if needed. Patient verbalizes understanding, and able to repeat back to technical writer and editor. A follow up call willbe placed within 10 days, patient agrees with plan. documented in this encounter Plan of Treatment Upcoming Encounters Date Type Department Care Team (Late st Contact Info) Description 10/12/2024 2:00 PM EST Office Visit [facility] ADULT DENTAL 230 [place], [place] [phone] Phillip Borrego, DMD 230 [place] [address] 10/23/2024 1:00 PM EST Office Visit [facility] 230 [place] [address] Yecenia Frias FNP 230 [place], [place] 10/24/2024 1:00 PM EST Clinical Support [facility] 230 [place] [address] Kira Bansal, MEREDITH documented as of this encounter Visit Diagnoses Not on filedocumented in this encounter Additional Health Concerns Assessment Noted Time PHQ-9 Depression Total Score: 7 03/07/20 24 10:13 AM EDT documented as of this encounter Care Teams Virtualization Architect Relationship Specialty Start Date End Date Yecenia Frias FNP [address] [place], [place] PCP - General Family Medicine 04/26/24 Colby Hirsch FNP Nurse Practitioner Family Medicine 07/13/23 Candice Ugarte Lithographic Press OperatorElectric Shipyard Operator 12/27/23 documented as of this encounter
--- OUTSIDE RECORDS SUMMARY | 2024-09-25 14:36 | XMS_ITS | Encounter Summary ---
Author Organization [employer] Address 75 [facility] 7t [place] [address] Care Team Providers Care Firearms Inspector Name Role Phone Colby Hirsch SPREAD CUTTER Unavailable Unavailable [facility] SPREAD CUTTER Primary Care Provider [phone] Encounter Details Date Type Department Care Team (Latest Contact Info) Description 09/14/2024 Travel Social History Tobacco Use Types Packs/Day Years [...] with others, in a hotel, in a intermediate, living outside on the street, on a [...] t he electric, gas, oil or water [employer] threatened to shut off services in your [...] Office Visit [facility] ADULT DENTAL [address] [place] [address] Phillip Borrego, DMD 230 [place] [address] 10/23/2024 1:00 PM EST Office Visit [facility] MEDICINE [address] [place] [address] Yecenia Frias FNP 230 [place] [address] 10/24/2024 1:00 PM EST Clinical Support [address] [address] Kira Bansal RN documented as of this encounter Visit Diagnoses Not on filedocumented in this encounter Additional Health Concerns Assessment Noted Time PHQ-9 Depression Total Score: 7 03/07/20 24 10:13 AM EDT documented as of this encounter Care Teams Firearms Inspector Relationship Specialty Start Date End Date Yecenia Frias FNP [address] [place] [address] PCP - General Family Medicine 04/26/24 Colby Hirsch FNP Nurse Practitioner Family Medicine 07/13/23 Candice Ugarte Lithograph OperatorCustomer Insight Analyst 12/27/23 documented as of this encounter
--- OUTSIDE RECORDS SUMMARY | 2024-09-25 14:36 | XMS_ITS | Encounter Summary ---
Author Organization [employer] Address 75 [facility] 7t [place] [address] Care Team Providers Care Ball Thread Machine Tender Name Role Phone Colby Hirsch CRUSHER ASSEMBLER Unavailable Unavailable [facility] CRUSHER ASSEMBLER Primary Care Provider [phone] Encounter Details Date Type Department Care Team (Latest Contact Info) Description 09/13/2024 Travel Social History Tobacco Use Types Packs/Day [...] t he electric, gas, oil or water [employer] threatened to shut off services in your [...] Description 10/12/2024 2:00 PM EST Office Visit [facility] ADULT DENTAL [address] [place] [address] Phillip Borrego, DMD 230 [place] [address] 10/23/2024 1:00 PM EST Office Visit [facility] MEDICINE [address] [place] [address] Yecenia Frias FNP 230 [place] [address] 10/24/2024 1:00 PM EST Clinical Support [address] [address] Kira Bansal RN documented as of this encounter Visit Diagnoses Not on filedocumented in this encounter Additional Health Concerns Assessment Noted Time PHQ-9 Depression Total Score: 7 03/07/20 24 10:13 AM EDT documented as of this encounter Care Teams Ball Thread Machine Tender Relationship Specialty Start Date End Date Yecenia Frias FNP [address] [place] [address] PCP - General Family Medicine 04/26/24 Colby Hirsch FNP Nurse Practitioner Family Medicine 07/13/23 Candice Ugarte Workforce Services RepresentativeVan Driver 12/27/23 documented as of this encounter
--- OUTSIDE RECORDS SUMMARY | 2024-09-25 14:36 | XMS_ITS | Encounter Summary ---
Author Organization [employer] Address 75 [facility] 7t [place] [address] Care Team Providers Care Family Worker Name Role Phone Colby Hirsch LOADER UNLOADER Unavailable Unavailable [facility] LOADER UNLOADER Primary Care Provider [phone] Reason for Visit * Reason Comments Diabetic Eye Exam Encounter Details Date Type Department Care Team (Late st Contact Info) Description 09/14/2024 10:30 AM EST Office Visit [facility] [address] [place] [address] Glenn, Akila, OD [address] [place] [address] Diabetes type 2, no ocular involvement (CMS/HCC) (Primary Dx); Dry eyes, bilateral; Presbyopia of both eyes Social History Tobacco Use Types Packs/Day Years [...] with others, in a hotel, in a group home, living outside on the street, on a [...] 2:00 PM EST Office Visit [facility] ADULT DENTAL 230 [place] [address] Phillip Borrego, MYA [address] [place] [address] 10/23/2024 1:00 PM EST Office Visit [facility] MEDICINE [address] [place] [address] BarnwellYecenia, LOADER UNLOADER 230 [place] [address] 10/24/2024 1:00 PM EST Clinical Support [facility] [address] [place] [address] Kira Bansal, MEREDITH documented as of this encounter Visit Diagnoses Diagnosis Diabetes type 2, no ocular involvement ([facility])- Primary Dry eyes, bilateral Presbyopia of both eyes documented in this encounter Additional Health Concerns Assessment Noted Time PHQ-9 Depression Total Score: 7 03/07/20 10:13 AM EDT documented as of this encounter Care Teams Family Worker Relationship Specialty Start Date End Date Yecenia Frias FNP [address] [place] [address] PCP - General Family Medicine 04/26/24 Colby Hirsch FNP Nurse Practitioner Family Medicine 07/13/23 Candice Ugarte Skid WrapperRestrike Hammer Operator 12/27/23 documented as of this encounter
--- OUTSIDE RECORDS SUMMARY | 2024-09-25 14:36 | XMS_ITS | Encounter Summary ---
Author Organization [facility] [employer] Address 75 [facility] 7t [place] [address] Care Team Providers Care Facility Manager Histology Name Role Phone Radha Shah STOKER ERECTOR Primary Care Provider [phone] Colby Hirsch STOKER ERECTOR Unavailable Unavailable [facility] STOKER ERECTOR Primary Care Provider [phone] Reason for Visit * Reason Comments Med Refill Encounter Details Date Type Department Care Team (Late st Contact Info) Description 06/16/2023 Refill [facility] MEDICINE 230 [place] [address] Marc Nicolas AGNP Pain Social History Tobacco Use Types Packs/Day Years [...] [facility] ADULT DENTAL [address] [place] [address] Phillip Borrego, MYA 230 [place] [address] 10/23/2024 1:00 PM EST Office Visit [facility] MEDICINE [address] [place] [address] [address] 10/24/2024 1:00 PM EST Clinical Support [address] [address] Kira Bansal RN documented as of this encounter Visit Diagnoses Diagnosis Pain Generalized pain documented in this encounter Additional Health Concerns Assessment Noted Time PHQ-9 Depression Total Score: 6 06/15/20 23 10:23 AM EDT documented as of this encounter Care Teams Facility Manager Histology Relationship Specialty Start Date End Date Radha Shah FNP [address] [place] [address] PCP - General Family Medicine 04/21/23 04/25/24 MonroeYecenia [facility] [address] [place] [address] PCP - General Family Medicine 04/26/24 Colby Hirsch FNP [address] [place] [address] Nurse Practitioner Family Medicine 07/13/23 Candice Ugarte Java Websphere DeveloperFamily Practice Medical Doctor 12/27/23 documented as of this encounter
--- OUTSIDE RECORDS SUMMARY | 2024-09-25 14:36 | XMS_ITS | Encounter Summary ---
Author Organization [employer] Address 75 [facility] 7t [place] [address] Care Team Providers Care Green Chain Puller Name Role Phone Radha Shah [facility] Primary Care Provider [phone] Colby Hirsch EVENT HOST Unavailable Unavailable [facility] Primary Care Provider [phone] Reason for Visit * Reason Comments Med Refill Encounter Details Date Type Department Care Team (Late st Contact Info) Description 06/09/2023 Refill [facility] MEDICINE [address] [place] [address] Marilee Buckner FNP [address] [place] [address] [place] [address] Multiple joint pain; Mixed anxiety and depressive [...] 10/12/2024 2:00 PM EST Office Visit [facility] ADULT DENTAL [address] [place] [address] Phillip Borrego, MYA [address] [place] [address] 10/23/2024 1:00 PM EST Office Visit [facility] MEDICINE [address] [place] [address] [facility] 230 [place] [address] 10/24/2024 1:00 PM EST Clinical Support [address] [address] Kira Bansal, MEREDITH documented as of this encounter Visit Diagnoses Diagnosis Multiple joint pain Pain in joint, multiple sites Mixed anxiety and depressive disorder Dysthymic disorder documented in this encounter Additional Health Concerns Assessment Noted Time PHQ-9 Depression Total Score: 18 023 11:25 AM EDT documented as of this encounter Care Teams Green Chain Puller Relationship Specialty Start Date End Date Radha Shah FNP [address] [place] [address] PCP - General Family Medicine 04/21/23 04/25/24 GarrardYecenia FNP 230 [place] [address] PCP - General Family Medicine 04/26/24 Colby Hirsch FNP 230 [place] [address] Nurse Practitioner Family Medicine 07/13/23 Candice Ugarte Cullet Crusher And WasherClay Mine Cutting Machine Operator 12/27/23 documented as of this encounter
--- OUTSIDE RECORDS SUMMARY | 2024-09-25 14:36 | XMS_ITS | Encounter Summary ---
Author Organization [employer] Address 75 [facility] 7t [place] [address] Care Team Providers Care Pot Filler Name Role Phone Radha Shah VULCANIZER RUBBER PLATE Primary Care Provider [phone] Colby Hirsch Unavailable Unavailable [facility] Primary Care Provider [phone] Encounter Details Date Type Department Care Team (Late st Contact Info) Description 02/17/2024 Community Care Management [facility] MEDICINE [address] [place] [address] Radha Shah FNP [address] [place] [address] Social History Tobacco Use Types Packs/Day Years [...] Description 10/12/2024 2:00 PM EST Office Visit [facility] ADULT DENTAL [address] [place] [address] Phillip Borrego, MYA [address] [place] [address] 10/23/2024 1:00 PM EST Office Visit [facility] MEDICINE [address] [place] [address] Yecenia Frias FNP 230 [place] [address] 10/24/2024 1:00 PM EST Clinical Support [facility] MEDICINE [address] [place] [address] Kira Bansal RN documented as of this encounter Visit Diagnoses Not on filedocumented in this encounter Additional Health Concerns Assessment Noted Time PHQ-9 Depression Total Score: 6 12/28/19 24 11:17 AM EDT documented as of this encounter Care Teams Pot Filler Relationship Specialty Start Date End Date Radha Shah FNP [address] [place] [address] PCP - General Family Medicine 04/21/23 04/25/24 Yecenia Frias FNP [address] [place] [address], [place] [address] PCP - General Family Medicine 04/26/24 Colby Hirsch FNP [address] [place] [address] Nurse Practitioner Family Medicine 07/13/23 Candice Ugarte Pallet Stone InserterIndustrial Maintenance Electrician 12/27/23 documented as of this encounter
--- OUTSIDE RECORDS SUMMARY | 2024-09-25 14:36 | XMS_ITS | Encounter Summary ---
Author Organization [employer] Address 75 [facility] 7t [place] [address] [address] Team Providers Care Ct Scan Technologist Name Role Phone Radha Shah RADIUS CORNER MACHINE OPERATOR Primary Care Provider [phone] Colby Hirsch Unavailable Unavailable [facility] RADIUS CORNER MACHINE OPERATOR Primary Care Provider [phone] Encounter Details Date Type Department Care Team (Late st Contact Info) Description 03/08/2024 Orders Only [facility]C MED & PEDS [address] [place] [address] Radha Shah FNP [address] [place] [address] Social History Tobacco Use Types Packs/Day Years [...] [facility] [address] [place] [address] Phillip Borrego, MYA 230 [place] [address] 10/23/2024 1:00 PM EST Office Visit [facility] MEDICINE [address] [place] [address] Yecenia Frias FNP 230 [place] [address] 10/24/2024 1:00 PM EST Clinical Support [facility] MEDICINE [address] [place] [address] Kira Bansal, MEREDITH documented as of this encounter Visit Diagnoses Not on filedocumented in this encounter Additional Health Concerns Assessment Noted Time PHQ-9 Depression Total Score: 7 03/07/20 24 10:13 AM EDT documented as of this encounter Care Teams Ct Scan Technologist Relationship Specialty Start Date End Date Radha Shah FNP 230 [place] [address] PCP - General Family Medicine 04/21/23 04/25/24 Yecenia Frias FNP 230 [place] [address] PCP - General Family Medicine 04/26/24 Colby Hirsch FNP 230 [place] [address] Nurse Practitioner Family Medicine 07/13/23 Candice Ugarte Rubber Extrusion Machine OperatorBilling Administrator 12/27/23 documented as of this encounter
--- OUTSIDE RECORDS SUMMARY | 2024-09-25 14:36 | XMS_ITS | Encounter Summary ---
Author Organization [employer] Address 75 [facility] 7t [place] [address] Care Team Providers Care Appraiser Oil And Water Name Role Phone Colby Hirsch PHOTOVOLTAIC FABRICATION TECHNICIAN Unavailable Unavailable [facility] Primary Care Provider [phone] Reason for Visit * Reason Comments Med Refill Encounter Details Date Type Department Care Team (Late st Contact Info) Description 08/29/[address] [facility] MEDICINE [address] [place], [place] [phone] [facility] 230 [place] [address] Arthralgia, unspecified joint Social History Tobacco Use Types Packs/Day Years [...] Description 10/12/2024 2:00 PM EST Office Visit [facility] ADULT DENTAL [address] [place] [address] Phillip Borrego, MYA [address] [place] [address] 10/23/2024 1:00 PM EST Office Visit [facility] MEDICINE [address] [place] [address] Yecenia Frias FNP 230 [place] [address] 10/24/2024 1:00 PM EST Clinical Support [facility] [address] [place] [address] Kira Bansal RN documented as of this encounter Visit Diagnoses Diagnosis Arthralgia, unspecified joint documented in this encounter Additional Health Concerns Assessment Noted Time PHQ-9 Depression Total Score: 7 03/07/20 24 10:13 AM EDT documented as of this encounter Care Teams Appraiser Oil And Water Relationship Specialty Start Date End Date Yecenia Frias FNP [address] [place] [address] PCP - General Family Medicine 04/26/24 Colby Hirsch FNP Nurse Practitioner Family Medicine 07/13/23 Candice Ugarte Air Crew SupervisorSole Skiver 12/27/23 documented as of this encounter
--- OUTSIDE RECORDS SUMMARY | 2024-09-25 14:36 | XMS_ITS | Encounter Summary ---
Author Organization [employer] Address 75 [facility] 7 [place] [address] Care Team Providers Care Toppiece Cutter Name Role Phone Colby Hirsch CAMP RECREATION SPECIALIST Unavailable Unavailable [facility] Primary Care Provider [phone] Reason for Visit * Reason Onset Date Comments FYI 09/13/2024 Encounter Details Date Type Department Care Team ([facility] Contact Info) Description 09/13/2024 Telephone [facility] MEDICINE [address] [place], [place] [phone] [facility] 230 [place] [address] FYI Social History Tobacco Use Types Packs/Day [...] encounter Miscellaneous Notes * Telephone Encounter - Amy Almanza RN - 09/13/2024 3:49 PM EST Tc to [facility] in regards to pt attempt reschedule their ENT appt originally on 08/29/24 and missing it due to an emergency. Spoke with someone names Ade @ [facility] and pt scheduled to be seen on 05/01/25 at 10:30 AM. Tc to pt via s staff educator: Lang [email or web address] to let them know their new appt with [facility] is at May 01 at 10:30 AM and pt verbalized understanding. No further questions or concerns at this time. * Telephone Encounter - Celine Good - 09/13/2024 3:29 PM EST Tc from pt stating called [facility] to reschedule 08/29 appt and they states nurses need to [facility] for reschedule. Appt was missed due a familiar emergency. ENT P. [phone] PT P. [phone] (Dutch) documented in this encounter Plan of Treatment Upcoming Encounters Date Type Department Care Team (Late st Contact Info) Description 10/12/2024 2:00 PM EST Office Visit [facility] ADULT DENTAL 230 [place] [address] Phillip Borrego, DMD 230 [place] [address] 10/23/2024 1:00 PM EST Office Visit [facility] MEDIC[facility] 230 [facility], [place] [phone] Yecenia Frias FNP 230 [place], [place] [phone] 10/24/2024 1:00 PM EST Clinical Support [facility] 230 [place], [place] [phone] Kira Bansal RN documented as of this encounter Visit Diagnoses Not on filedocumented in this encounter Additional Health Concerns Assessment Noted Time PHQ-9 Depression Total Score: 7 03/07/20 24 10:13 AM EDT documented as of this encounter Care Teams Toppiece Cutter Relationship Specialty Start Date End Date Yecenia Frias F[facility] [place] [address] PCP - General Family Medicine 04/26/24 Colby Hirsch FNP Nurse Practitioner Family Medicine 07/13/23 Candice Ugarte Coat FinisherLitigation Support Analyst 12/27/23 documented as of this encounter
--- OUTSIDE RECORDS SUMMARY | 2024-09-25 14:36 | XMS_ITS | Encounter Summary ---
Author Organization [employer] Address 75 [facility] 7t [place] [address] Care Team Providers Care Still Runner Name Role Phone Radha Shah Primary Care Provider [phone] Colby Hirsch Unavailable [facility] Primary Care Provider [phone] Reason for Referral * Consultation (Routine) - Closed Specialty Diagnoses / Procedures Referred By Aminta anderson Referred To Contact Diagnoses Routine adult health maintenance Radha Shah FNP [address] [place] [address] Phone: tel: fax: [address] [address] Phone: tel: fax: Referral ID Status Reason Start Date Expiration Date V isits Requested Visits Authorized [id number] Closed Specialty Services Required 02/16/2024 02/15/2025 1 1 Encounter Details Date Type Department Care Team (Late st Contact Info) Description 02/16/2024 Orders Only [facility] [address] [place] [address] Radha Shah FNP [address] [place] [address] Routine adult health maintenance (Primary Dx) Social History Tobacco Use Types [facility] [address] [place] [address] Phillip Borrego, MYA [address] [place] [address] 10/23/2024 1:00 PM EST Office Visit [facility] MEDICINE [address] [place] [address] AltagraciaYecenia whipple, ONCOLOGY TECHNICIAN [address] [place] [address] 10/24/2024 1:00 PM EST Clinical Support [facility] MED[facility] [address] [place] [address] Kira Bansal RN Scheduled Referrals Name Type Priority Associated Diagnoses Orde r Schedule Referral to Care Management Outpatient Referral Routine Routine adult health maintenance Expected: 02/16/2024 (Approximate), Expires: 02/15/2025 documented as of this encounter Visit Diagnoses Diagnosis Routine adult health maintenance- Primary documented in this encounter Additional Health Concerns Assessment Noted Time PHQ-9 Depression Total Score: 6 12/28/19 24 11:17 AM EDT documented as of this encounter Care Teams Still Runner Relationship Specialty Start Date End Date Radha Shah FNP [address] [place] [address] PCP - General Family Medicine 04/21/23 04/25/24 Yecenia Frias FNP [address] [place] [address] PCP - General Family Medicine 04/26/24 Colby Hirsch FNP [address] [place] [address] Nurse Practitioner Family Medicine 07/13/23 Candice Ugarte Panel LaminatorLegal Internship 12/27/23 documented as of this encounter
--- OUTSIDE RECORDS SUMMARY | 2024-09-25 14:36 | XMS_ITS | Encounter Summary ---
Author Organization [employer] Address 75 [facility] [address] [place] [address] Care Team Providers Care Per Diem Physical Therapist Assistant Name Role Phone Colby Hirsch REAMER HAND Unavailable Unavailable [facility] Primary Care Provider [phone] Reason for Visit * Reason Onset Date Comments Follow up call 08/11/2024 Encounter Details Date Type Department Care Team ([facility] Contact Info) Description 08/11/[address] [facility] MEDICINE [address] [place], [place] [phone] [facility] [address] [place] [address] Follow up call Social History Tobacco Use Types Packs/Day Years [...] Miscellaneous Notes * Telephone Encounter - Celine Good - 08/11/2024 12:59 PM EST Tc from pt returning call. Please contact: documented in this encounter Plan of Treatment Upcoming Encounters Date Type Department Care Team (Late st Contact Info) Description 10/12/2024 2:00 PM EST Office Visit [facility] ADULT DENTAL [address] [place] [address] Phillip Borrego, DMD [address] [place] [address] 10/23/2024 1:00 PM EST Office Visit [facility] MEDICINE [address] [place] [address] Yecenia Frias, JACINTO [address] [place] [address] 10/24/2024 1:00 PM EST Clinical Support [address] [address] Kira Bansal, RN documented as of this encounter Visit Diagnoses Not on filedocumented in this encounter Additional Health Concerns Assessment Noted Time PHQ-9 Depression Total Score: 7 03/07/20 24 10:13 AM EDT documented as of this encounter Care Teams Per Diem Physical Therapist Assistant Relationship Specialty Start Date End Date Yecenia Frias FNP [address] [place] [address] PCP - General Family Medicine 04/26/24 Colby Hirsch FNP Nurse Practitioner Family Medicine 07/13/23 Candice Ugarte Gum CookDrive Away Driver 12/27/23 documented as of this encounter
--- OUTSIDE RECORDS SUMMARY | 2024-09-25 14:36 | XMS_ITS | Encounter Summary ---
Author Organization [employer] Address 75 [facility] 7t [place] [address] Care Team Providers Care Day Care Worker Name Role Phone Marc Nicolas Primary Care Provider Unavail able Radha Shah Primary Care Provider [phone] Colby Hirsch Unavailable Unavailable [facility] PLUG AND MOLD FINISHER Primary Care Provider Reason for Visit * Reason Onset Date Comments Med Refill 03/10/2023 Encounter Details Date Type Department Care Team ([facility] Contact Info) Description 03/10/2023 Telephone [facility] MEDICINE [address] [place] [address] Marc Nicolas AGNP Med Refill Social History [...] PM EDT documented as of this encounter Plan of Treatment Upcoming Encounters Date Type Department Care Team (Late Contact Info) Description 10/12/2024 2:00 PM EST Office Visit [facility] ADULT DENTAL [address] [place] [address] SalimaPhillip, DMD [address] [place] [address] 10/23/2024 1:00 PM EST Office Visit [facility] 230 [facility] [place] [address] Richardsville[facility]eceniaFORMERLY [facility] [address] [place] [address] 10/24/2024 1:00 PM EST Clinical Support [facility] [address] [place] [address] Kira Bansal, MEREDITH documented as of this encounter Visit Diagnoses Not on filedocumented in this encounter Additional Health Concerns Assessment Noted Time PHQ-9 Depression Total Score: 13 023 3:27 PM EDT documented as of this encounter Care Teams Day Care Worker Relationship Specialty Start Date End Date Marc Nicolas AGNP PCP - General Family Medicine 10/22/22 04/20/23 [place] [address] PCP - General Family Medicine 04/21/23 04/25/24 [place] [address] PCP - General Family Medicine 04/26/24 Colby Hirsch FNP [address] [place] [address] Nurse Practitioner Family Medicine 07/13/23 Candice Ugarte Instructional WriterSupervisor Benzene Refining 12/27/23 documented as of this encounter
--- OUTSIDE RECORDS SUMMARY | 2024-09-25 14:36 | XMS_ITS | Encounter Summary ---
Author Organization [employer] Address 75 [facility] 7t [place] [address] Care Team Providers Care Bench Hand Name Role Phone Marc Nicolas Primary Care Provider Unavail able Radha Shah CHECKER CASHIER Primary Care Provider [phone] Colby Hirsch Unavailable Unavailable [facility] CHECKER CASHIER Primary Care Provider [phone] Reason for Visit * Reason Comments Med Refill Encounter Details Date Type Department Care Team (Late st Contact Info) Description 03/10/2023 Refill [facility] [address] [place] [address] Marc Nicolas AGNP Mixed anxiety and depressive [...] 10/12/2024 2:00 PM EST Office Visit [facility] ADULT DENTAL [address] [place] [address] Phillip Borrego, DMD [address] [place] [address] 10/23/2024 1:00 PM EST Office Visit [facility] 230 [facility] [place] [address] [facility] [address] [place] [address] 10/24/2024 1:00 PM EST Clinical Support [facility] [address] [place] [address] Kira Bansal, MEREDITH documented as of this encounter Visit Diagnoses Diagnosis Mixed anxiety and depressive disorder Dysthymic disorder documented in this encounter Additional Health Concerns Assessment Noted Time PHQ-9 Depression Total Score: 13 023 3:27 PM EDT documented as of this encounter Care Teams Bench Hand Relationship Specialty Start Date End Date Marc Nicolas AGNP PCP - General Family Medicine 10/22/22 04/20/23 Radha Shah F[place] [address] PCP - General Family Medicine 04/21/23 04/25/24 [place]enia [place] [address] PCP - General Family Medicine 04/26/24 Colby Hirsch FNP [address] [place] [address] Nurse Practitioner Family Medicine 07/13/23 Candice Ugarte Entrepreneurial Finance ProfessorCredit Control Administrator 12/27/23 documented as of this encounter
--- OUTSIDE RECORDS SUMMARY | 2024-09-25 14:36 | XMS_ITS | Encounter Summary ---
Author Organization [employer] Address 75 [facility] 7t [place] [address] Care Team Providers Care Plant Custodian Name Role Phone Pablo Radha FNP Primary Care Provider [phone] Colby Hirsch Unavailable Unavailable [facility] Primary Care Provider [phone] Reason for Visit * Reason Comments Med Refill Encounter Details Date Type Department Care Team (Late st Contact Info) Description 01/04/2024 Refill [facility] MEDICINE [address] [place] [address] Colby Hirsch FNP Social History Tobacco Use Types Packs/Day Years [...] Description 10/12/2024 2:00 PM EST Office Visit [facility] ADULT DENTAL [address] [place] [address] Phillip Borrego, DMD [address] [place] [address] 10/23/2024 1:00 PM EST Office Visit [facility] MEDICINE [address] [place] [address] FieldsYecenia [facility] 230 [place] [address] 10/24/2024 1:00 PM EST Clinical Support [address] [address] Kira Bansal RN documented as of this encounter Visit Diagnoses Not on filedocumented in this encounter Additional Health Concerns Assessment Noted Time PHQ-9 Depression Total Score: 6 12/28/19 24 11:17 AM EDT documented as of this encounter Care Teams Plant Custodian Relationship Specialty Start Date End Date Radha Shah FNP [address] [place] [address] PCP - General Family Medicine 04/21/23 04/25/24 AltagraciaYecenia whipple FNP [address] [place] [address] PCP - General Family Medicine 04/26/24 Colby Hirsch FNP [address] [place] [address] Nurse Practitioner Family Medicine 07/13/23 Candice Ugarte Recording Studio InternshipQc Analyst 12/27/23 documented as of this encounter
--- OUTSIDE RECORDS SUMMARY | 2024-09-25 14:36 | XMS_ITS | Encounter Summary ---
Author Organization [employer] Address 75 [facility] 7t [place] [address] Care Team Providers Care Workers Compensation Consultant Name Role Phone Marc Nicolas Primary Care Provider Unavail able Radha Shah Primary Care Provider [phone] Colby Hirsch Unavailable Unavailable [facility] QUALITY CONTROL SPECIALIST Primary Care Provider [phone] Reason for Visit * Reason Onset Date Comments Med Refill 03/16/2023 Encounter Details Date Type Department Care Team (Late st Contact Info) Description 03/16/2023 Telephone [facility] MEDICINE [address] [place] [address] Marc Nicolas AGNP Med Refill Social History [...] Telephone Encounter - Kira Bansal RN - 03/16/2023 3:56 PM EDT Pt scheduled for [employer] RV 03/17/23 @ 10am. Tramadol refill due 03/19/23, Clonazepam refill due 03/18/23.Will forward request to PCP after [employer] appt 03/17/23. * Telephone Encounter - Natividad Rio - 03/16/2023 3:36 PM EDT Tc from pt requesting medication refill on traMADol (Ultram) 50 MG tablet and clonazePAM (KlonoPIN)0.5 MG tablet documented in this encounter Plan of Treatment Upcoming Encounters Date Type Department Care Team (Late st Contact Info) Description 10/12/2024 2:00 PM EST Office Visit [facility] ADULT DENTAL [address] [place] [address] Phillip Borrego, DMD [address] [place] [address] 10/23/2024 1:00 PM EST Office Visit [facility] MEDICINE [address] [place] [address] Yecenia Frias FNP [address] [place] [address] 10/24/2024 1:00 PM EST Clinical Support [address] [address] Kira Bansal, RN documented as of this encounter Visit Diagnoses Not on filedocumented in this encounter Additional Health Concerns Assessment Noted Time PHQ-9 Depression Total Score: 13 023 3:27 PM EDT documented as of this encounter Care Teams Workers Compensation Consultant Relationship Specialty Start Date End Date Marc Nicolas AGNP PCP - General Family Medicine 10/22/22 04/20/23 Radha Shah FNP [address] [place] [address] PCP - General Family Medicine 04/21/23 04/25/24 EdgemontYecenia FNP [address] [place] [address] PCP - General Family Medicine 04/26/24 Colby Hirsch FNP [address] [place] [address] Nurse Practitioner Family Medicine 07/13/23 Candice Ugarte Master Coastwise YachtDraw Hand 12/27/23 documented as of this encounter
--- OUTSIDE RECORDS SUMMARY | 2024-09-25 14:36 | XMS_ITS | Encounter Summary ---
Author Organization [employer] Address 75 [facility] 7t [place] [address] Care Team Providers Care Ticket Speculator Name Role Phone Marc Nicolas Primary Care Provider Unavail able Radha Shah ENERGY ADMINISTRATOR Primary Care Provider [phone] Colby Hirsch Unavailable Unavailable [facility] ENERGY ADMINISTRATOR Primary Care Provider [phone] Reason for Visit * Reason Comments Med Refill Encounter Details Date Type Department Care Team (Late st Contact Info) Description 03/17/2023 Refill [facility] [address] [place] [address] Marc Nicolas AGNP Mixed anxiety and depressive [...] Description 10/12/2024 2:00 PM EST Office Visit [facility] ADULT DENTAL [address] [place] [address] Phillip Borrego, DMD [address] [place] [address] 10/23/2024 1:00 PM EST Office Visit [facility] 230 [place] [address] MuldraughYecenia [facility] [address] [place], [place] 10/24/2024 1:00 PM EST Clinical Support [address] [address] Kira Bansal, MEREDITH documented as of this encounter Visit Diagnoses Diagnosis Mixed anxiety and depressive disorder Dysthymic disorder documented in this encounter Additional Health Concerns Assessment Noted Time PHQ-9 Depression Total Score: 13 023 3:27 PM EDT documented as of this encounter Care Teams Ticket Speculator Relationship Specialty Start Date End Date Marc Nicolas AGNP PCP - General Family Medicine 10/22/22 04/20/23 Radha Shah FNP [address] [place] [address] PCP - General Family Medicine 04/21/23 04/25/24 MuldraughYecenia FNP [address] [place] [address] PCP - General Family Medicine 04/26/24 Colby Hirsch FNP [address] [place] [address] Nurse Practitioner Family Medicine 07/13/23 Candice Ugarte Instrument WorkerCooling Tower Technician 12/27/23 documented as of this encounter
--- OUTSIDE RECORDS SUMMARY | 2024-09-25 14:36 | XMS_ITS | Encounter Summary ---
Author Organization [employer] Address 75 [facility] 7t [place] [address] Care Team Providers Care Upper Cutter Machine Name Role Phone Colby Hirsch REVENUE CYCLE ADMINISTRATOR Unavailable Unavailable [facility] REVENUE CYCLE ADMINISTRATOR Primary Care Provider [phone] Reason for Referral * Consultation (Routine) - Pending Review Specialty Diagnoses / Procedures Referred By Aminta anderson Referred To Contact Pulmonary Disease Diagnoses Shortness of breath Debbie Madrea NP [address] [place] [address] Phone: tel: fax: Referral ID Status Reason Start Date Expiration Date Visits Requested Visits Authorized [id number] Pending Review Specialty Services Required 09/25/2024 09/25/2025 1 1 Encounter Details Date Type Department Care Team (Late st Contact Info) Description 09/25/2024 2:00 PM EST Office Visit [facility] [address] [place], [place] [address] Chest pain, atypical (Primary Dx); Obstructive sleep apnea syndrome; Mild intermittent asthma, unspecified whether complicated; Shortness of breath; Gastroesophageal reflux disease with esophagitis without hemorrhage Social History Tobacco Use Types Packs/Day Years [...] with others, in a hotel, in a fdc, living outside on the street, on a [...] AM EDT documented as of this encounter Last Filed Vital Signs Vital Sign Reading Time Taken Comments Blood Pressure 116/81 09/25/2024 12:45 PM EST Pulse 105 09/25/2024 12:45 PM EST Temperature 36.3 ??C (97.3 ??F) 09/25/2024 12:[address] Respiratory Rate - - Oxygen Saturation 98% 09/25/2024 12:45 PM EST Inhaled Oxygen Concentration - - Weight - - Height - - Body Mass Index - - documented in this encounter Plan of Treatment Upcoming Encounters Date Type Department Care Team (Late st Contact Info) Description 10/12/2024 2:00 PM EST Office Visit [facility] ADULT DENTAL [address] [place] [address] Phillip Borrego, DMD [address] [place] [address] 10/23/2024 1:00 PM EST Office Visit [facility] [address] [place] [address] [facility] [address] [place], [place] 10/24/2024 1:00 PM EST Clinical Support [address] [address] Kira Bansal, MEREDITH Scheduled Orders Name Type Priority Associated Diagnoses Orde r Schedule TSH W/Reflex to FT4 Lab Routine Shortness of breath Expected: 09/25/2024 (Approximate), Expires: 09/25/2025 CBC auto differential Lab Routine Shortness of breath Expected: 09/25/2024 (Approximate), Expires: 09/25/2025 Comprehensive Metabolic Panel Lab Routine Shortness of breath Expected: 09/25/2024 (Approximate), Expires: 09/25/2025 Scheduled Referrals Name Type Priority Associated Diagnoses Order Schedule Referral to Pulmonology Outpatient Referral Routine Shortness of breath Expected: 09/25/2024 (Approximate), Expires: 09/25/2025 documented as of this encounter Visit Diagnoses Diagnosis Chest pain, atypical- Primary Obstructive sleep apnea syndrome Obstructive sleep apnea (adult) (pediatric) Mild intermittent asthma, unspecified whether complicated Shortness of breath Gastroesophageal reflux disease with esophagitis without hemorrhage documented in this encounter Additional Health Concerns Assessment Noted Time PHQ-9 Depression Total Score: 7 03/07/20 24 10:13 AM EDT documented as of this encounter Care Teams Upper Cutter Machine Relationship Specialty Start Date End Date Yecenia Frias [facility] [address] [place] [address] PCP - General Family Medicine 04/26/24 Colby Hirsch FNP Nurse Practitioner Family Medicine 07/13/23 Candice Ugarte Machining Department SupervisorInspector Subassembly 12/27/23 documented as of this encounter
[2024-09-25 16:05] LABS: MANUAL DIFF FLAG NO
[2024-09-25 16:07] LABS: Basophils Percent Auto 0.3 % (0-2); Eosinophils Absolute Auto 0.1 X10*3/uL (0.0-0.4); Eosinophils Percent Auto 1.7 % (0-4); Hematocrit 39.4 % (37.0-47.0); Hemoglobin 12.9 g/dl (12.0-16.0); Imm Gran Abs Auto 0.03 X10*3/uL (0.00-0.03); Imm Gran Pct Auto 0.4 % (0.0-0.4); Lymphocytes Absolute Auto 2.5 X10*3/uL (1.2-4.9); Lymphocytes Percent Auto 32.7 % (20-40); Mean Corpuscular HGB Conc 32.7 g/dl (31.0-35.0); Mean Corpuscular Volume 85.7 fL (80.0-98.0); Mean Platelet Volume 11.1 fL (9.4-12.3); Monocytes Absolute Auto 0.5 X10*3/uL (0.1-1.2); Monocytes Percent Auto 6.2 % (2-11); Neutrophils Absolute Auto 4.5 x10*3/uL (2.0-8.3); Neutrophils Percent Auto 58.7 % (45-73); Platelet Count 252 X10*3/uL (160-400); Red Cell Distribution Width 12.9 % (11.0-16.0); White Blood Count 7.7 X10*3/uL (4.8-10.8)
[2024-09-25 16:40] LABS: Alanine Aminotransferase 15 U/L (0-31); Albumin Level 4.2 g/dL (3.5-5.0); Alkaline Phosphatase 110 U/L (39-117); Anion Gap 10 (12-20); Aspartate Amino Transferase 29 U/L (5-31); Bilirubin Total 0.5 mg/dL (0.0-1.0); Blood Urea Nitrogen 8 mg/dL (9-16); Calcium 9.2 mg/dL (8.4-10.2); Carbon Dioxide 24 mmol/L (22-29); Chloride 110 mmol/L (96-108); Cholesterol 128 mg/dL (<200); Estimated Glomerular Filt Rate > 60; Glucose Random 92 mg/dL (60-115); HDL Cholesterol 36 mg/dL (>40); LDL Cholesterol Calculated 71 mg/dL (<100); Potassium 3.9 mmol/L (3.3-5.1); Sodium 140 mmol/L (135-145); Triglycerides 109 mg/dL (<150)
[2024-09-25 16:55] LABS: TSH reflex Free T4 1.57 uIU/mL (0.32-4.0)
== END 2024-09-25 13:20 | disposition home or self-care (01) ==
LOC: HO.HHCL 13:19
PROVIDERS: Visit Provider Nurse Practitioner Family
DX: R06.02 Shortness of breath (principal); E78.5 Hyperlipidemia, unspecified
CPT/HCPCS: 36415; 80053; 80061; 84443; 85025

== ENCOUNTER 2024-10-10 16:12 | Outpatient (REF) | payer MEDICAID, SELFPAY ==
--- OUTSIDE RECORDS SUMMARY | 2024-10-10 16:41 | XMS_ITS | Encounter Summary ---
Author Organization [employer] Address 75 [facility] 7t [place] [address] Care Team Providers Care Outbound Sales Consultant Name Role Phone Colby Hirsch BATH MIXER Unavailable Unavailable [facility] BATH MIXER Primary Care Provider [phone] Encounter Details Date Type Department Care Team (Late st Contact Info) Description 10/10/2024 2:00 PM EST Office Visit [facility] [address] [place] [address] Urinary tract infection symptoms (Primary Dx); Diarrhea, unspecified type Social History Tobacco Use Types Packs/Day Years [...] Sign Reading Time Taken Comments Blood Pressure 122/80 10/10/2024 2:01 PM EST Pulse 80 10/10/2024 2:01 PM EST Temperature 37.1 ??C (98.7 ??F) 10/10/2024 2:01 PM ES T Respiratory Rate 18 10/10/2024 2:01 PM EST Oxygen Saturation - - Inhaled Oxygen Concentration - - Weight 80.6 kg (177 lb 12.8 oz) 10/10/2024 2:01 PM EST Height 154.9 cm (5' 1 ) 10/10/2024 2:01 PM EST Body Mass Index 33.6 10/10/2024 2:01 PM EST documented in this encounter Plan of Treatment Upcoming Encounters Date Type Department Care Team (Late st Contact Info) Description 10/12/2024 2:00 PM EST Office Visit [facility] ADULT DENTAL [address] [place] [address] Phillip Borrego, DMD [address] [place], [place] [phone] 10/23/2024 1:00 PM EST Office Visit [facility] MEDICINE [address] [place] [address] Yecenia Frias FNP [address] [place], [place] [phone] 10/24/2024 1:00 PM EST Clinical Support [facility] MEDICINE [address] [place] [address] Kira Bansal RN Scheduled Orders Name Type Priority Associated Diagnoses Orde r Schedule Culture, Urine, Routine Microbiology Routine Urinary tract infection symptoms Ordered: 10/10/2024 documented as of this encounter Procedures Procedure Name Priority Date/Time Associated Diagnosis Comments POCT URINALYSIS DIPSTICK Routine 10/10/2024 2:18 PM EST Urinary tract infection symptoms documented in this encounter Results * (ABNORMAL) POCT Urinalysis (10/10/2024 2:18 PM EST) Color, UA Yellow Clarity, UA Cloudy Glucose, UA Negative Bilirubin, UA Few 15 Ketones, UA Positive Comment:Trace Spec Grav, UA 1.025 Blood, UA Positive(A) Negative, None Detected Comment:Trace pH, UA 6.0 Protein, UA 2+ 125++ Comment:100mg Urobilinogen, UA 1.0 Leukocytes, UA Few 15(A) Negative, Rare, Trace Nitrite, UA Negative Negative, None Detected Urine 10/10/2024 2:18 PM EST Bethany Ritchie MD POINT OF CARE TEST EN TER/EDIT ORDERABLES Final Result documented in this encounter Visit Diagnoses Diagnosis Urinary tract infection symptoms- Primary Diarrhea, unspecified type documented in this encounter Additional Health Concerns Assessment Noted Time PHQ-9 Depression Total Score: 7 03/07/20 24 10:13 AM EDT documented as of this encounter Care Teams Outbound Sales Consultant Relationship Specialty Start Date End Date Yecenia Frias FNP [address] [place] [address] PCP - General Family Medicine 04/26/24 Colby Hirsch FNP Nurse Practitioner Family Medicine 07/13/23 Candice Ugarte Pst ManagerAdministrative Specialist 12/27/23 documented as of this encounter
--- OUTSIDE RECORDS SUMMARY | 2024-10-10 16:41 | XMS_ITS | Encounter Summary ---
Author Organization [employer] Address [address] [facility] [place] [address] Care Team Providers Care Residency Program Coordinator Name Role Phone Colby Hirsch TEAM LEADER/RESEARCH PSYCHOLOGIST Unavailable Unavailable [facility] Primary Care Provider [phone] Reason for Visit * Reason Comments Care Coordination [facility] outreach Encounter Details Date Type Department Care Team (Latest Contact Info) Description 09/21/2024 Patient Outreach [facility] MEDICINE [address] [place] [address] [facility] [address] [place] [address] Care Coordination (C3 -FELIPE Obrien telephone call [...] with others, in a hotel, in a snf, living outside on the street, on a [...] CHW spoke to patient she went to [facility] and filled out an application. Patient states is doing well. No further questions or concerns. CHW reinforced direct contact information or CM for any additional questions or concerns and extended clinic hours on Mondays and Wednesdays, and Walk-In Urgent Care Located in [facility] of [facility]. Patient provided with after-hours line for [facility], , which offer night time triage service and option to transfer to therapeutic recreation specialist provider if needed. Patient verbalizes understanding, and able to repeat back to sql report writer. A follow up call willbe placed within 10 days, patient agrees with plan. documented in this encounter Plan of Treatment Upcoming Encounters Date Type Department Care Team (Late st Contact Info) Description 10/12/2024 2:00 PM EST Office Visit [facility] ADULT DENTAL [address] [place], [place] [phone] Phillip Borrego, DMD [address] [place] [address] 10/23/2024 1:00 PM EST Office Visit [facility] [address] [place] [address] Yecenia Frias FNP [address] [place], [place] 10/24/2024 1:00 PM EST Clinical Support [facility] [address] [place] [address] Kira Bansal, MEREDITH documented as of this encounter Visit Diagnoses Not on filedocumented in this encounter Additional Health Concerns Assessment Noted Time PHQ-9 Depression Total Score: 7 03/07/20 24 10:13 AM EDT documented as of this encounter Care Teams Residency Program Coordinator Relationship Specialty Start Date End Date Yecenia Frias FNP [address] [place], [place] PCP - General Family Medicine 04/26/24 Colby Hirsch FNP Nurse Practitioner Family Medicine 07/13/23 Candice Ugarte Systems Software DesignerCrime Victim Specialist 12/27/23 documented as of this encounter
--- OUTSIDE RECORDS SUMMARY | 2024-10-10 16:41 | XMS_ITS | Encounter Summary ---
Author Organization [employer] Address 75 [facility] 7t [place] [address] Care Team Providers Care Business Management Manager Name Role Phone Radha Shah [facility] Primary Care Provider [phone] Colby Hirsch VARITYPIST Unavailable Unavailable [facility] Primary Care Provider [phone] Reason for Visit * Reason Comments Med Refill Encounter Details Date Type Department Care Team (Late st Contact Info) Description 06/04/2023 Refill [facility] MEDICINE [address] [place] [address] Marilee Buckner FNP [address] [place] [address] Dept [place] [address] Multiple joint pain; Mixed anxiety and depressive [...] 2:00 PM EST Office Visit [facility] ADULT DENTAL [address] [place] [address] Phillip Borrego, MYA [address] [place] [address] 10/23/2024 1:00 PM EST Office Visit [facility] MEDIC[facility] [address] [place] [address] [place] [facility] [address] [place] [address] 10/24/2024 1:00 PM EST Clinical Support [address] [address] Kira Bansal, MEREDITH documented as of this encounter Visit Diagnoses Diagnosis Multiple joint pain Pain in joint, multiple sites Mixed anxiety and depressive disorder Dysthymic disorder documented in this encounter Additional Health Concerns Assessment Noted Time PHQ-9 Depression Total Score: 0 04/02/20 2:10 PM EDT documented as of this encounter Care Teams Business Management Manager Relationship Specialty Start Date End Date Radha Shah FNP [address] [place] [address] PCP - General Family Medicine 04/21/23 04/25/24 [place] FNP [address] [place] [address] PCP - General Family Medicine 04/26/24 Colby Hirsch FNP [address] [place] [address] Nurse Practitioner Family Medicine 07/13/23 Candice Ugarte [place] Records Management OfficerBeef Skinner 12/27/23 documented as of this encounter
--- OUTSIDE RECORDS SUMMARY | 2024-10-10 16:41 | XMS_ITS | Encounter Summary ---
Author Organization [employer] Address 75 [facility] 7t [place] [address] Care Team Providers Care Chief Business Officer Name Role Phone Ruth Hoffmann DIRECTOR OF ROOMS Primary Care Provider Marc Nava Primary Care Provider Unavail able Radha Shah DIRECTOR OF ROOMS Primary Care Provider [phone] Colby HirschP Unavailable Unavailable [facility] DIRECTOR OF ROOMS Primary Care Provider [phone] Reason for Visit * Reason Onset Date Comments Appointment Request 10/01/2022 Encounter Details Date Type Department Care Team (Late st Contact Info) Description 10/01/2022 Telephone [facility] MEDICINE [address] [place] [address] Ruth Hoffmann FNP Appointment Request Social History [...] Description 10/12/2024 2:00 PM EST Office Visit [facility] ADULT DENTAL [address] [place] [address] Phillip Borrego, DMD [address] [place] [address] 10/23/2024 1:00 PM EST Office Visit [address] [address] Yecenia Frias FNP [address] [place] [address] 10/24/2024 1:00 PM EST Clinical Support [address] [address] Kira Bansal RN documented as of this encounter Visit Diagnoses Not on filedocumented in this encounter Care Teams Chief Business Officer Relationship Specialty Start Date End Date Ruth Hoffmann FNP PCP - General Family Medicine 07/21/22 10/21/22 Marc Nicolas AGNP PCP - General Family Medicine 10/22/22 04/20/23 Radha Shah FNP [address] [place] [address] PCP - General Family Medicine 04/21/23 04/25/24 Yecenia Frias FNP [address] [place] [address] PCP - General Family Medicine 04/26/24 Colby Hirsch FNP [address] [place] [address] Nurse Practitioner Family Medicine 07/13/23 Candice Ugarte Machine TesterGastroenterology Technician 12/27/23 documented as of this encounter
--- OUTSIDE RECORDS SUMMARY | 2024-10-10 16:41 | XMS_ITS ---
Author Organization [facility] Address [address] [place] [address] Care Team Providers Care Supervisor Concrete Stone Finishing Name Role Phone Radha Rodriguez Primary Care Provider Unavaila Jaylan Alaniz Unavailable [phone] REASON FOR VISIT cancelled appt on 06/20/2024 Encounters Encounter Location Date Provider Diagnosis [facility] [address] [place] [address] 06/16/2024 Jaylan Neal PLAN OF TREATMENT No Information
--- OUTSIDE RECORDS SUMMARY | 2024-10-10 16:41 | XMS_ITS | Encounter Summary ---
Author Organization [employer] Address 75 [facility] 7t [place] [address] Care Team Providers Care Tire And Tube Repairer Name Role Phone Radha Shah PIPE STEM SAWYER Primary Care Provider [phone] Colby Hirsch Unavailable Unavailable [facility] Primary Care Provider [phone] Reason for Visit * Reason Comments Med Refill Encounter Details Date Type Department Care Team (Late st Contact Info) Description 04/12/2024 Refill [facility] MEDICINE [address] [place] [address] Radha Shah FNP [address] [place] [address] Multiple joint pain Social History Tobacco Use [...] 2:00 PM EST Office Visit [facility] ADULT DENTAL [address] [place] [address] Phillip Borrego, DMD [address] [place] [address] 10/23/2024 1:00 PM EST Office Visit [facility] MEDICINE [address] [place] [address] Yecenia Frias FNP [address] [place] [address] 10/24/2024 1:00 PM EST Clinical Support [facility] MEDICINE [address] [place] [address] Kira Bansal, MEREDITH documented as of this encounter Visit Diagnoses Diagnosis Multiple joint pain Pain in joint, multiple sites documented in this encounter Additional Health Concerns Assessment Noted Time PHQ-9 Depression Total Score: 7 03/07/20 24 10:13 AM EDT documented as of this encounter Care Teams Tire And Tube Repairer Relationship Specialty Start Date End Date Radha Shah FNP [address] [place] [address] PCP - General Family Medicine 04/21/23 04/25/24 [place] FNP [address] [place] [address] PCP - General Family Medicine 04/26/24 Colby Hirsch FNP [address] [place] [address] Nurse Practitioner Family Medicine 07/13/23 Candice Ugarte Mold PresserCredit Review Manager 12/27/23 documented as of this encounter
--- OUTSIDE RECORDS SUMMARY | 2024-10-10 16:41 | XMS_ITS ---
Author Organization [facility] Address [address] [place] [address] Care Team Providers Care Relationship Banker Name Role Phone Radha Rodriguez Primary Care Provider Unavaila Jaylan Alaniz Unavailable [phone] REASON FOR VISIT FATTY LIVER Encounters Encounter Location Date Provider Diagnosis [facility] [address] [place] [address] 06/20/2024 Jaylan Neal PLAN OF TREATMENT No Information
--- OUTSIDE RECORDS SUMMARY | 2024-10-10 16:41 | XMS_ITS | Encounter Summary ---
Author Organization [employer] Address 75 [facility] 7t [place] [address] Care Team Providers Care Food Safety Field Specialist Name Role Phone Radha Shah ANILINE PRESS WORKER Primary Care Provider [phone] Colby Hirsch Unavailable Unavailable [facility] Primary Care Provider Reason for Visit * Reason Comments Med Refill Encounter Details Date Type Department Care Team (Late st Contact Info) Description 11/24/2023 Refill [facility] MEDICINE [address] [place] [address] Radha Shah FNP [address] [place] [address] Multiple joint pain Social History Tobacco Use [...] Description 10/12/2024 2:00 PM EST Office Visit [facility] ADULT DENTAL [address] [place] [address] Phillip Borrego, MYA [address] [place] [address] 10/23/2024 1:00 PM EST Office Visit [facility] MEDICINE [address] [place] [address] Yecenia Frias FNP [address] [place] [address] 10/24/2024 1:00 PM EST Clinical Support [facility] MED[facility] [address] [place] [address] Kira Bansal, MEREDITH documented as of this encounter Visit Diagnoses Diagnosis Multiple joint pain Pain in joint, multiple sites documented in this encounter Additional Health Concerns Assessment Noted Time PHQ-9 Depression Total Score: 8 09/02/19 24 11:12 AM EST documented as of this encounter Care Teams Food Safety Field Specialist Relationship Specialty Start Date End Date Radha Shah FNP [address] [place] [address] PCP - General Family Medicine 04/21/23 04/25/24 Yecenia Frias FNP [address] [place] [address] PCP - General Family Medicine 04/26/24 Colby Hirsch FNP [address] [place] [address] Nurse Practitioner Family Medicine 07/13/23 Candice Ugarte Skills InstructorCotton Grower 12/27/23 documented as of this encounter
--- OUTSIDE RECORDS SUMMARY | 2024-10-10 16:41 | XMS_ITS | Encounter Summary ---
Author Organization [facility] Address 75 [facility] 7t [place] [address] Care Team Providers Care Antenna Machine Operator Name Role Phone Marc Nicolas Primary Care Provider Unavail able Radha Shah OPERATIONAL METEOROLOGIST Primary Care Provider [phone] Colby Hirsch Unavailable Unavailable [facility] OPERATIONAL METEOROLOGIST Primary Care Provider [phone] Reason for Visit * Reason Comments Med Refill Encounter Details Date Type Department Care Team (Late st Contact Info) Description 04/08/2023 Refill [facility] MEDICINE [address] [place] [address] Marc Nicolas AGNP Schizoaffective disorder, depressive type [...] Description 10/12/2024 2:00 PM EST Office Visit [facility] ADULT DENTAL [address] [place], [place] [phone] Phillip Borrego DMD [address] [place] [address] 10/23/2024 1:00 PM EST Office Visit [facility] [place] [facility] [place] [address] Yecenia Frias FNP [facility] [place] 10/24/2024 1:00 PM EST Clinical Support [facility] [place] [address] Kira Bansal, MEREDITH documented as of this encounter Visit Diagnoses Diagnosis Schizoaffective disorder, depressive type (CMS/HCC) Schizoaffective disorder, unspecified condition Mixed anxiety and depressive disorder Dysthymic disorder documented in this encounter Additional Health Concerns Assessment Noted Time PHQ-9 Depression Total Score: 0 04/02/20 2:10 PM EDT documented as of this encounter Care Teams Antenna Machine Operator Relationship Specialty Start Date End Date Marc Nicolas AGNP PCP - General Family Medicine 10/22/22 04/20/23 Radha [place] [address] PCP - General Family Medicine 04/21/23 04/25/24 [place] [address] PCP - General Family Medicine 04/26/24 Colby Hirsch FNP [address] [place] [address] Nurse Practitioner Family Medicine 07/13/23 Candice Ugarte Special Delivery Mail CarrierMophead Trimmer And Wrapper 12/27/23 documented as of this encounter
--- OUTSIDE RECORDS SUMMARY | 2024-10-10 16:41 | XMS_ITS | Encounter Summary ---
Author Organization [employer] Address 75 [facility] 7t [place] [address] Care Team Providers Care Creative Technologist Name Role Phone Marc Nicolas Primary Care Provider Unavail able Radha Shah DOUBLER OPERATOR Primary Care Provider [phone] Colby Hirsch Unavailable Unavailable [facility] DOUBLER OPERATOR Primary Care Provider Reason for Visit * Reason Onset Date Comments Med Refill 04/16/2023 Encounter Details Date Type Department Care Team (Late st Contact Info) Description 04/16/2023 Telephone [facility] MEDICINE [address] [place] [address] Marc Nicolas AGNP Med Refill Social History [...] Description 10/12/2024 2:00 PM EST Office Visit [facility] ADULT DENTAL [address] [place] [address] Phillip Borrego, DMD [address] [place] [address] 10/23/2024 1:00 PM EST Office Visit [facility] MEDICINE [address] [place] [address] Yecenia Frias FNP [address] [place] [address] 10/24/2024 1:00 PM EST Clinical Support [address] [address] Kira Bansal, RN documented as of this encounter Visit Diagnoses Not on filedocumented in this encounter Additional Health Concerns Assessment Noted Time PHQ-9 Depression Total Score: 0 04/02/20 2:10 PM EDT documented as of this encounter Care Teams Creative Technologist Relationship Specialty Start Date End Date Marc Nicolas AGNP PCP - General Family Medicine 10/22/22 04/20/23 Radha Shah FNP [address] [place] [address] PCP - General Family Medicine 04/21/23 04/25/24 Yecenia Frias FNP [address] [place] [address] PCP - General Family Medicine 04/26/24 Colby Hirsch FNP [address] [place] [address] Nurse Practitioner Family Medicine 07/13/23 Candice Ugarte Perinatal SpecialistRailroad Wheels And Axles Inspector 12/27/23 documented as of this encounter
--- OUTSIDE RECORDS SUMMARY | 2024-10-10 16:41 | XMS_ITS | Encounter Summary ---
Author Organization [employer] Address 75 [facility] 7t [place] [address] Care Team Providers Care Bridge Repair Crew Person Name Role Phone Marc Nicolas Primary Care Provider Unavail able Radha Shah RESEARCH BIOSTATISTICIAN Primary Care Provider [phone] Colby Hirsch Unavailable Unavailable [facility] RESEARCH BIOSTATISTICIAN Primary Care Provider [phone] Reason for Visit * Reason Onset Date Comments Referral 01/26/2023 Encounter Details Date Type Department Care Team (Late st Contact Info) Description 01/26/2023 Telephone [facility] MEDICINE [address] [place] [address] Marc Nicolas AGNP Referral Social History Tobacco [...] 2:00 PM EST Office Visit [facility] ADULT DENTAL [address] [place] [address] Phillip Borrego, DMD [address] [place] [address] 10/23/2024 1:00 PM EST Office Visit [address] [address] Yecenia Frias FNP [address] [place] [address] 10/24/2024 1:00 PM EST Clinical Support [address] [address] Kira Bansal, MEREDITH documented as of this encounter Visit Diagnoses Not on filedocumented in this encounter Additional Health Concerns Assessment Noted Time PHQ-9 Depression Total Score: 19 023 3:57 PM EDT documented as of this encounter Care Teams Bridge Repair Crew Person Relationship Specialty Start Date End Date Marc Nicolas AGNP PCP - General Family Medicine 10/22/22 04/20/23 Radha Shah FNP [address] [place] [address] PCP - General Family Medicine 04/21/23 04/25/24 Yecenia Frias FNP [address] [place] [address] PCP - General Family Medicine 04/26/24 Colby Hirsch FNP [address] [place] [address] Nurse Practitioner Family Medicine 07/13/23 Candice Ugarte Inside Sales TrainerArmed Security Officer 12/27/23 documented as of this encounter
--- OUTSIDE RECORDS SUMMARY | 2024-10-10 16:41 | XMS_ITS | Encounter Summary ---
Author Organization [employer] Address [address] [facility] 7t [place] [address] Care Team Providers Care Car Shunter Name Role Phone Colby Hirsch ETHYLENE PLANT HELPER Unavailable Unavailable [facility] ETHYLENE PLANT HELPER Primary Care Provider [phone] Reason for Visit * Reason Comments Diabetic Eye Exam Encounter Details Date Type Department Care Team (Late st Contact Info) Description 09/14/2024 10:30 AM EST Office Visit [facility] OPTOMETRY [address] [place] [address] Glenn, Akila, OD [address] [place] [address] Diabetes type 2, no ocular involvement (CMS/HCC) [...] as of this encounter Progress Notes * Akila Elizabeth, OD - 09/14/2024 10:30 AM EST Eye Care Progress Note Patient ID: Sacha Rodriguez is a 43 y.o. female. Chief Complaint Diabetic Eye Exam HPI Here for a diabetic eye exam. She has Type II IDDM. Her last HbA1c was 5.4% on 07/24/2024. Today she complains of constant blur at all distances with her current glasses. She denies any other ocular complaints. Her last eye exam was here on 06/16/2023. Last edited by Akila Elizabeth, OD on 10/05/2024 1:37 PM. Current Outpatient Medications Medication Sig Dispense Refill acetaminophen (Tylenol 8 Hour) 650 MG ER tablet TAKE 1 TABLET BY MOUTH EVERY 6 HOURS NEEDED 60 tablet 1 albuterol (2.5 MG/3ML) 0.083% nebulizer solution inhale 3 milliliter by nebulization route 3 times every day prn wheezing/dyspnea albuterol 108 (90 Base) MCG/ACT inhaler inhale 2 puff by inhalation route every 4 - 6 hours as needed prn wheezing/dyspnea Alcohol Swabs (Alcohol Prep) 70 % pads USE 1 FOUR TIMES DAILY DIRECTED 200 each 11 atorvastatin (Lipitor) 40 MG tablet Take 1 tablet by mouth Once daily. beta carotene (vitamin A) 3 MG (88876 UT) capsule TAKE 1 CAPSULE BY MOUTH EVERY MORNING 90 capsule 1 Bisacodyl EC 5 MG EC tablet TAKE 1 TABLET BY MOUTH EVERY DAY NEEDED FOR CONSTIPATION. DO NOT BREAK, CRUSH, DISSOLVE OR CHEW. 30 tablet 0 Blood Glucose Monitoring Suppl (Exponential EntertainmentStyle Lite) w/Device kit 1 Device 2 times daily. 1 kit 0 Blood Pressure kit 1 kit 2 times daily. 1 kit 0 budesonide-formoterol (Symbicort) 80-4.5 MCG/ACT inhaler Inhale 2 puffs every 4- 6 hours as needed for wheezing, shortness of breath 1 each 11 cetirizine (ZyrTEC) 10 MG tablet TAKE 1 TABLET BY MOUTH EVERY MORNING 90 tablet 1 clotrimazole (Lotrimin) 1 % vaginal cream Insert one applicator per vagina at bedtime for 7 nights 45 g 0 D3 Super Strength 50 MCG (2000 UT) capsule TAKE 1 CAPSULE BY MOUTH DAILY IN THE MORNING 90 capsule 3 Diclofenac Sodium 1 % gel Apply once a day on the affected hand 100 g 1 docusate sodium (Colace) 100 MG capsule TAKE 1 CAPSULE BY MOUTH TWICE DAILY 180 capsule 1 famotidine (Pepcid) 20 MG tablet Take 1 tablet (20 mg) by mouth 2 times daily. 60 tablet 11 fluticasone (Flonase) 50 MCG/ACT nasal spray USE 1-2 SPRAYS IN EACH NOSTRIL IN THE MORNING SHAKE GENTLY 48 g 0 glucose blood test strip 1 each by Other route 2 times daily. 100 each 12 ibuprofen 600 MG tablet Take 1 tablet (600 mg) by mouth every 6 (six) hours if needed for mild pain. 30 tablet 1 insulin pen needle (UltiGuard SafePack Pen Needle) 29G x 12.7mm misc Use as instructed 100 each 12 Lancets (Unilet Micro-Thin 33G) misc USE FOUR TIMES DAILY TO TEST BLOOD SUGAR loperamide (Imodium A-D) 2 MG tablet 1 tab PO q4h prn diarrhea magnesium 200 MG tablet Take 1 tablet via oral route daily. metFORMIN XR (Glucophage-XR) 500 MG 24 hr tablet TAKE 1 TABLET BY MOUTH EVERY DAY WITH DINNER 90 tablet 1 mirtazapine (Remeron) 7.5 MG tablet Take 1 tablet (7.5 mg) by mouth at bedtime. 30 tablet 1 Misc. Devices (Pulse Oximeter For Finger) misc -Check pulse and oxygen daily and prn naloxone (Narcan) 4 mg/0.1 mL nasal spray Administer 1 spray (4 mg) into affected nostril(s) if needed for opioid reversal. May repeat every 2-3 minutes if needed, alternating nostrils, until medicalassistance becomes available. 2 each 0 naloxone (Narcan) 4 mg/0.1 mL nasal spray FOR SUSPECTED OPIOID OVERDOSE. SPRAY 0.1mL IN ONE NOSTRIL. REPEAT IN ALTERNATE NOSTRIL 2-3 MINUTES IF NEEDED. SEEK MEDICAL ATTENTION IMMEDIATELY EVEN IF PATIENT RESPONDS. 2 each 1 Novofine Pen Needle 32G X 6 MM misc USE ONCE DAILY DIRECTED omeprazole (PriLOSEC) [address] capsule TAKE 1 CAPSULE BY MOUTH EVERY MORNING BEFORE BREAKFAST. DO NOT BREAK, CRUSH, DISSOLVE OR CHEW. 90 capsule 3 oxymetazoline (Afrin Nasal [place]) 0.05 % nasal spray Administer 2 sprays into each nostril every 12(twelve) hours if needed for congestion for up to 2 days. Do not use for more than 3 days. 30 mL 0 polyethylene glycol, PEG, 3350 (Glycolax) 17 GM/SCOOP powder take (17G) by oral route every day mixed with 8 oz. water, juice, soda, coffee or tea pyridoxine (Vitamin B-6) 100 MG tablet Take 1 tablet by mouth in the morning. riboflavin (Vitamin B-2) 400 MG tablet Take 1 tablet via oral route daily risperiDONE (RisperDAL) 2 MG tablet Take 1 tablet (2 mg) by mouth at bedtime. 30 tablet 1 SUMAtriptan (Imitrex) 50 MG tablet Take 1 tablet by mouth. Tirzepatide 2.5 MG/0.5ML solution auto-injector Inject 2.5 mg under the skin 1 (one) time per week.2 mL 3 No current facility-administered medications for this visit. Past Medical History: Diagnosis Date Anxiety Asthma Depression Diabetes (CMS/HCC) HLD (hyperlipidemia) Hypertension Migraine Past Surgical History: Procedure Laterality Date CHALAZION EXCISION Right HYSTERECTOMY N/A Family History Problem Relation Name Age of Onset Heart disease Father Diabetes Mother's Sister Social History Socioeconomic History Marital status: Single Spouse name: Not on file Number of children: Not on file Years of education: Not on file Highest education level: Not on file Occupational History Not on file Tobacco Use Smoking status: Never Passive exposure: Never Smokeless tobacco: Never Vaping Use Vaping status: Never Used Substance and Sexual Activity Alcohol use: Never Drug use: Never Sexual activity: Not on file Other Topics Concern Not on file Social History Narrative Not on file Social Drivers of Health Food Insecurity: High Risk (03/01/2024) Food Insecurity Within the past 12 months, you worried that your food would run out before you got money to buy more:: Sometimes True Within the past 12 months,the food you bought just didn't last and you didn't have enough money to get more: : Sometimes True Transportation Needs: Low Risk (07/25/2024) Transportation In the past 12 months, has lack of transportation kept you from medical appts, meetings, work or from getting things needed for daily living? : No Intimate Partner Violence: Not on file Housing Stability: High Risk (07/25/2024) Housing Stability What is your housing situation today?: I do not have housing (Staying with others, in a hotel, in ashelter, living outside on the street, on a beach, in a car, or in a park Think about the place you live. Do you have problems with any of the following? : None of the above Allergies Allergen Reactions Pineapple Anaphylaxis Diphenhydramine Unknown Seafood [Shellfish Allergy] Unknown Tomato Morphine Palpitations and Unknown Quetiapine Palpitations Other reaction(s): numbing of hands, Unknown Trazodone Palpitations and Unknown Other reaction(s): severe anxiety ROS Positive for: Eyes Negative for: Constitutional, Gastrointestinal, Neurological, Skin, Genitourinary, Musculoskeletal,HENT, Endocrine, Cardiovascular, Respiratory, Psychiatric, Allergic/Imm, Heme/Lymph Last edited by Lisa Dunn on 09/14/2024 11:07 AM. Base Eye Exam Visual Acuity (Snellen - Linear) Right Left Dist cc 20/25 20/25 Last rx in [facility] Tonometry ([facility] , 11:05 AM) Right Left Pressure 9 10 Pupils Pupils APD Right PERRL None Left PERRL None Visual Garcia Left Right Full Full Extraocular Movement Right Left Full Full Neuro/Psych Oriented x3: Yes Mood/Affect: Normal Dilation Both eyes: 1% Tropicamide @ 11:05 AM Slit Lamp and Fundus Exam External Exam Right Left External Normal Normal Slit Lamp Exam Right Left Lids/Lashes Large capped gland LL, 1+ MGD 1+ MGD Conjunctiva/Sclera White and quiet White and quiet Cornea Clear Clear Anterior Chamber Deep and quiet Deep and quiet Iris Flat, no NVI Flat, no NVI Lens Clear Clear Fundus Exam Right Left Vitreous Syneresis Syneresis Disc [place] and Distinct, no NVD [place] and Distinct, no NVD C/D Ratio Vertical 0.20 0.20 C/D Ratio Horizontal 0.20 0.20 Macula Flat and Intact, no CSME Flat and Intact, no CSME Vessels Normal Normal Periphery No holes/breaks/tears 360 degrees, no NVE No holes/breaks/tears 360 degrees, no NVE Refraction Wearing Rx Sphere Cylinder Dobson Add Right +1.00 -1.00 140 +1.25 Left +0.75 -1.00 180 +1.25 Manifest Refraction Sphere Cylinder Dobson Dist VA Add Right +0.75 -1.00 130 20/25 +1.50 Left +1.00 -0.25 175 20/25 +1.50 Near VA Both: 20/30 Final Rx Sphere Cylinder Dobson Dist VA Add Right +0.75 -1.00 130 20/25 +1.50 Left +1.00 -0.25 175 20/25 +1.50 Expiration Date: 09/14/2026 Assessment/plan: Diagnoses and all orders for this visit: Diabetes type 2, no ocular involvement ([facility]) There is no diabetic retinopathy or macular edema present today in either eye. The patient was educated on the exam findings. The patient was educated to continue controlling blood glucose levels through diet, exercise and medication. The patient was educated on potential complications of diabetic retinopathy, including blindness, if left untreated. The patient was educated on the importance of an annual diabetic eye exam to monitor for diabetic retinopathy. A summary of today's dilated eye exam results will be communicated to the patient's PCP through the shared patient problem list in [facility].Will monitor in 1 year. 2. Dry eyes, bilateral Patient educated on dry eye syndrome. Dry eye syndrome is caused by a chronic lack of sufficient lubrication and moisture on the surface of the eye. Consequences of dry eyes range from subtle but constant eye irritation to significant inflammation and even scarring of the front surface of the eye. S ymptoms of dry eye syndrome include: a burning sensation, itching, an aching sensation, heavy feeling eyes, fatigued eyes, sore eyes, dryness sensation, redness, photophobia, and blurred vision. She was given a handout of OTC artificial tears to purchase and use 4 times per day in both eyes. Will monitor at her next exam. 3. Presbyopia of both eyes Glasses prescription updated and given. Will monitor at the patient's next full eye exam. Akila Elizabeth, OD 10/05/2024, 1:39 PM Student Name: Lisa Dunn I attest that I was physically present with the optometry student. I personally saw and evaluated the patient and performed my own history and examination. I have reviewed, verified, and revised the documented findings as necessary and agree with the content and plan as written. Head Banquet Waitress Source: ___ None _x__ Bilingual Staff ___ Qualified Staff Adjunct Phlebotomy Instructor ___ Telephone Head Banquet Waitress; ID# ___ Head Banquet Waitress brought by patient (family member, friend, BOND CLERK, etc) ___ In person plasterer helper ___ Ipad Head Banquet Waitress; ID#: Language Spoken During Exam: __Spanish documented in this encounter Plan of Treatment Upcoming Encounters Date Type Department Care Team (Late st Contact Info) Description 10/12/2024 2:00 PM EST Office Visit [facility] ADULT DENTAL [address] [place] [address] Phillip Borrego, MYA [address] [place] [address] 10/23/2024 1:00 PM EST Office Visit [facility] MEDICINE [address] [place] [address] Yecenia Frias FNP [address] [place] [address] 10/24/2024 1:00 PM EST Clinical Support [facility]INE [address] [place] [address] Kira Bansal RN documented as of this encounter Visit Diagnoses Diagnosis Diabetes type 2, no ocular involvement ([facility])- Primary Dry eyes, bilateral Presbyopia of both eyes documented in this encounter Additional Health Concerns Assessment Noted Time PHQ-9 Depression Total Score: 7 03/07/20 24 10:13 AM EDT documented as of this encounter Care Teams Car Shunter Relationship Specialty Start Date End Date Yecenia Frias FNP [address] [place] [address] PCP - General Family Medicine 04/26/24 Colby Hirsch FNP Nurse Practitioner Family Medicine 07/13/23 Candice Ugarte Manager MotorSole Stapler Welt 12/27/23 documented as of this encounter
--- OUTSIDE RECORDS SUMMARY | 2024-10-10 16:41 | XMS_ITS | Encounter Summary ---
Author Organization [employer] Address [address] [facility] 7t [place] [address] Care Team Providers Care Rigger Chief Name Role Phone Radha Shah ASBESTOS BRAKE LINING FINISHER HELPER Primary Care Provider [phone] Colby Hirsch ASBESTOS BRAKE LINING FINISHER HELPER Unavailable Unavailable [facility] ASBESTOS BRAKE LINING FINISHER HELPER Primary Care Provider [phone] Reason for Visit * Reason Onset Date Comments telephone call 10/29/2023 Encounter Details Date Type Department Care Team (Late st Contact Info) Description 10/29/2023 Refill [facility] MEDICINE [address] [place] [address] Radha Shah FNP [address] [place] [address] Multiple joint pain Social History Tobacco Use [...] does not remember the program name. A seam steamer from the program told her that if she still want to be in the program she needs a referral from PCP. Please call patient with any concern or questions. * Telephone Encounter - Celine Pate - 11/12/2023 9:46 AM EDT Patient walked in requesting a referral for a program. Patient does not remember the program name. A seam steamer from the program told her that if she still want to be in the program she needs a referral from PCP. Please call patient with any concern or questions. documented in this encounter Plan of Treatment Upcoming Encounters Date Type Department Care Team (Late st Contact Info) Description 10/12/2024 2:00 PM EST Office Visit [facility] ADULT DENTAL [address] [place] [address] Phillip Borrego, DMD [address] [place] [address] 10/23/2024 1:00 PM EST Office Visit [facility] [address] [place] [address] 10/24/2024 1:00 PM EST Clinical Support [place] [address] Kira Bansal RN documented as of this encounter Visit Diagnoses Diagnosis Multiple joint pain Pain in joint, multiple sites documented in this encounter Additional Health Concerns Assessment Noted Time PHQ-9 Depression Total Score: 8 09/02/19 11:12 AM EST documented as of this encounter Care Teams Rigger Chief Relationship Specialty Start Date End Date Radha Shah FNP [address] [place] [address] PCP - General Family Medicine 04/21/23 04/25/24 [place] F[place] [address] [place] [address] PCP - General Family Medicine 04/26/24 Colby Hirsch FNP [address] [place] [address] Nurse Practitioner Family Medicine 07/13/23 Candice Ugarte Optical Engineering ManagerSenior Business Process Analyst 12/27/23 documented as of this encounter
--- OUTSIDE RECORDS SUMMARY | 2024-10-10 16:41 | XMS_ITS | Encounter Summary ---
Author Organization [employer] Address [address] [facility] [place] [address] Care Team Providers Care Biopsychologist Name Role Phone Colby Hirsch RUGBY LEAGUE FOOTBALLER Unavailable Unavailable [facility] Primary Care Provider [phone] Reason for Visit * Reason Comments [facility] outreach Encounter Details Date Type Department Care Team (Latest Contact Info) Description 09/18/2024 Patient Outreach [facility] MED[facility] [address] [place] [address] [facility] [address] [place] [address] Care Coordination (C3 -FELIPE Obrien telephone call [...] with others, in a hotel, in a custodial, living outside on the street, on a [...] Description 10/12/2024 2:00 PM EST Office Visit [facility] ADULT DENTAL [address] [place] [address] Phillip Borrego, DMD [address] [place] [address] 10/23/2024 1:00 PM EST Office Visit [facility] [address] [place] [address] Yecenia Frias FNP [address] [place] [address] 10/24/2024 1:00 PM EST Clinical Support [facility] [address] [place] [address] Kira Bansal, RN documented as of this encounter Visit Diagnoses Not on filedocumented in this encounter Additional Health Concerns Assessment Noted Time PHQ-9 Depression Total Score: 7 03/07/20 24 10:13 AM EDT documented as of this encounter Care Teams Biopsychologist Relationship Specialty Start Date End Date Yecenia Frias FNP [address] [place] [address] PCP - General Family Medicine 04/26/24 Colby Hirsch FNP Nurse Practitioner Family Medicine 07/13/23 Candice Ugarte Oracle Wms ConsultantInternational Organizer 12/27/23 documented as of this encounter
--- OUTSIDE RECORDS SUMMARY | 2024-10-10 16:41 | XMS_ITS | Encounter Summary ---
Author Organization [employer] Address [address] [facility] 7t [place] [address] Care Team Providers Care Cottage Parent Name Role Phone Radha Shah FISCAL ANALYST Primary Care Provider [phone] Colby Hirsch Un[address] Un[address] [facility] FISCAL ANALYST Primary Care Provider [phone] Encounter Details Date Type Department Care Team (Late st Contact Info) Description 10/29/[address] [facility] MED & PEDS [address] [place] [address] Radha Shah FNP [address] [place] [address] Social History Tobacco Use Types Packs/Day Years [...] 10/12/2024 2:00 PM EST Office Visit [facility] ADULT DENTAL [address] [place] [address] Phillip Borrego, MYA [address] [place] [address] 10/23/2024 1:00 PM EST Office Visit [facility] MEDICINE [address] [place] [phone] Yecenia Frias FNP [address] [place] [address] 10/24/2024 1:00 PM EST Clinical Support [facility] MEDICINE [address] [place] [address] Kira Bansal, MEREDITH documented as of this encounter Visit Diagnoses Not on filedocumented in this encounter Additional Health Concerns Assessment Noted Time PHQ-9 Depression Total Score: 8 09/02/19 24 11:12 AM EST documented as of this encounter Care Teams Cottage Parent Relationship Specialty Start Date End Date Radha Shah FNP [address] [place] [address] PCP - General Family Medicine 04/21/23 04/25/24 Yecenia Frias FNP [address] [place] [address] PCP - General Family Medicine 04/26/24 Colby Hirsch FNP [address] [place] [address] Nurse Practitioner Family Medicine 07/13/23 Candice Ugarte Sand CarrierFish Stringer Assembler 12/27/23 documented as of this encounter
--- OUTSIDE RECORDS SUMMARY | 2024-10-10 16:41 | XMS_ITS | Encounter Summary ---
Author Organization [employer] Address [address] [facility] 7t [place] [address] Care Team Providers Care Actuarial Clerk Name Role Phone Colby Hirsch CARE COMPANION Unavailable Unavailable [facility] [place] [facility] CARE COMPANION Primary Care Provider [phone] Encounter Details Date Type Department Care Team [...] with others, in a hotel, in a fci, living outside on the street, on a [...] t he electric, gas, oil or water [employer] threatened to shut off services in your [...] Description 10/12/2024 2:00 PM EST Office Visit [facility] ADULT DENTAL [address] [place] [address] Phillip Borrego, DMD [address] [place] [address] 10/23/2024 1:00 PM EST Office Visit [facility] MEDICINE [address] [place] [address] Yecenia Frias FNP [address] [place] [address] 10/24/2024 1:00 PM EST Clinical Support [address] [address] Kira Bansal RN documented as of this encounter Visit Diagnoses Not on filedocumented in this encounter Additional Health Concerns Assessment Noted Time PHQ-9 Depression Total Score: 7 03/07/20 24 10:13 AM EDT documented as of this encounter Care Teams Actuarial Clerk Relationship Specialty Start Date End Date Yecenia Frias FNP [address] [place] [address] PCP - General Family Medicine 04/26/24 Colby Hirsch FNP Nurse Practitioner Family Medicine 07/13/23 Candice Ugarte J2Ee DeveloperManaging Supervisor 12/27/23 documented as of this encounter
--- OUTSIDE RECORDS SUMMARY | 2024-10-10 16:41 | XMS_ITS | Encounter Summary ---
Author Organization [email or web address] Address [address] [facility] [address] [place] [address] Care Team Providers Care Inspector Plug Seam Name Role Phone Colby Hirsch SKEIN YARN DRIER Unavailable Unavailable [facility] Primary Care Provider [phone] Reason for Visit * Reason Onset Date Comments FYI 09/13/2024 Encounter Details Date Type Department Care Team ([facility] Contact Info) Description 09/13/2024 Telephone [facility] MED[facility]INE [address] [place], [place] [phone] [facility] [address] [place] [address] FYI Social History Tobacco Use Types Packs/Day [...] with others, in a hotel, in a skilled nursing, living outside on the street, on a [...] 10:30 AM. Tc to pt via s addictions counselor assistant: Lang Wynn62 to let them know their [...] missed due a familiar emergency. ENT P. [phone] PT P. [phone] (Tanzanian) documented in this encounter Plan of Treatment Upcoming Encounters Date Type Department Care Team (Late st Contact Info) Description 10/12/2024 2:00 PM EST Office Visit [facility] ADULT DENTAL [address] [place] [address] Phillip Borrego, DMD [address] [place] [address] 10/23/2024 1:00 PM EST Office Visit [facility] MEDICINE [address] [facility], [place] [phone] Yecenia Frias FNP [address] [place], [place] [phone] 10/24/2024 1:00 PM EST Clinical Support [facility] [address] [place], [place] [phone] Kira Bansal RN documented as of this encounter Visit Diagnoses Not on filedocumented in this encounter Additional Health Concerns Assessment Noted Time PHQ-9 Depression Total Score: 7 03/07/20 24 10:13 AM EDT documented as of this encounter Care Teams Inspector Plug Seam Relationship Specialty Start Date End Date [facility] Frias [facility] [place] [address] PCP - General Family Medicine 04/26/24 Colby Hirsch FNP Nurse Practitioner Family Medicine 07/13/23 Candice Ugarte Ecology ProfessorHorologist 12/27/23 documented as of this encounter
--- OUTSIDE RECORDS SUMMARY | 2024-10-10 16:41 | XMS_ITS | Encounter Summary ---
Author Organization [employer] Address [address] [facility] 7[address] [place] [address] Care Team Providers Care Price Clerk Name Role Phone Marc Nicolas Primary Care Provider Unavail able Radha Shah Primary Care Provider [phone] Colby Hirsch Un[address] Unavailable [facility] EFFICIENCY MINER BLASTING Primary Care Provider [phone] Reason for Visit * Reason Onset Date Comments Med Refill 04/09/2023 Encounter Details Date Type Department Care Team (Late st Contact Info) Description 04/09/2023 Refill [facility] MEDICINE [address] [place] [address] Marc Nicolas AGNP Mixed anxiety and depressive [...] listed in EHR, no record. Spoke with [facility] pharmacy, she is listed as Romaine Rodriguez [...] (KlonoPIN) 0.5 MG tablet Please sent to [facility] - [place], [place] - [address] [place] [address] documented in this encounter Plan of Treatment Upcoming Encounters Date Type Department Care Team (Late st Contact Info) Description 10/12/2024 2:00 PM EST Office Visit [facility] ADULT DENTAL [address] [place] [address] Phillip Borrego, DMD [address] [place] [address] 10/23/2024 1:00 PM EST Office Visit [facility] MEDICINE [address] [place] [address] Bear CreekYecenia FNP [address] [place] [address] 10/24/2024 1:00 PM EST Clinical Support [address] [address] Kira Bansal, MEREDITH documented as of this encounter Visit Diagnoses Diagnosis Mixed anxiety and depressive disorder Dysthymic disorder documented in this encounter Additional Health Concerns Assessment Noted Time PHQ-9 Depression Total Score: 0 04/02/20 23 2:10 PM EDT documented as of this encounter Care Teams Price Clerk Relationship Specialty Start Date End Date Marc Nicolas AGNP PCP - General Family Medicine 10/22/22 04/20/23 Radha Shah FNP [address] [place] [id number] PCP - General Family Medicine 04/21/23 04/25/24 Bear CreekYecenia FNP [address] [place] [id number] PCP - General Family Medicine 04/26/24 Colby Hirsch FNP [address] [place] [address] Nurse Practitioner Family Medicine 07/13/23 Candice Ugarte Bi Technical LeadDigital Production Manager 12/27/23 documented as of this encounter
--- OUTSIDE RECORDS SUMMARY | 2024-10-10 16:41 | XMS_ITS | Encounter Summary ---
Author Organization [employer] Address [address] [facility] [address] [place] [address] Care Team Providers Care Java Support Engineer Name Role Phone Radha Shah MARKETING OPERATIONS ASSOCIATE Primary Care Provider [phone] Colby Hirsch Unavailable Unavailable [facility] MARKETING OPERATIONS ASSOCIATE Primary Care Provider [phone] Reason for Visit * Reason Onset Date Comments Appointment Request 08/30/2023 Encounter Details Date Type Department Care Team ([facility] st Contact Info) Description 08/30/2023 Telephone [facility] MEDICINE [address] [place] [address] Radha Shah FNP [address] [place] [address] Appointment Request Social History Tobacco Use Types [...] up appt with PCP scheduled for 08/30/23 Slitter Operator attempted to r/s however zero availability. Please contact at [phone] documented in this encounter Plan of Treatment Upcoming Encounters Date Type Department Care Team (Late st Contact Info) Description 10/12/2024 2:00 PM EST Office Visit [facility] ADULT DENTAL [address] [place] [address] Phillip Borrego, MYA [address] [place] [address] 10/23/2024 1:00 PM EST Office Visit [facility] MEDICINE [address] [place] [address] Altagracia, Yecenia, MARKETING OPERATIONS ASSOCIATE [address] [place] [address] 10/24/2024 1:00 PM EST Clinical Support [facility] MEDICINE [address] [place] [address] Kira Bansal RN documented as of this encounter Visit Diagnoses Not on filedocumented in this encounter Additional Health Concerns Assessment Noted Time PHQ-9 Depression Total Score: 5 07/13/20 23 11:12 AM EST documented as of this encounter Care Teams Java Support Engineer Relationship Specialty Start Date End Date Radha Shah FNP [address] [place] [id number] PCP - General Family Medicine 04/21/23 04/25/24 Yecenia Frias FNP [address] [place] [id number] PCP - General Family Medicine 04/26/24 Colby Hirsch FNP [address] [place] [address] Nurse Practitioner Family Medicine 07/13/23 Candice Ugarte Cleat LayerPhoto Optics Technician 12/27/23 documented as of this encounter
--- OUTSIDE RECORDS SUMMARY | 2024-10-10 16:41 | XMS_ITS | Encounter Summary ---
Author Organization [employer] Address [address] [facility] [address] [place] [address] Care Team Providers Care Health Promoter Name Role Phone Marc Nicolas Primary Care Provider Unavail able Radha Shah INFORMATION SYSTEMS MANAGER Primary Care Provider [phone] Colby Hirsch Unavailable Unavailable [facility] INFORMATION SYSTEMS MANAGER Primary Care Provider [phone] Reason for Visit * Reason Onset Date Comments Results 04/09/2023 Encounter Details Date Type Department Care Team (Late st Contact Info) Description 04/09/2023 Telephone [facility] MEDICINE [address] [place] [address] Marc Nicolas AGNP Results Social History Tobacco [...] AM EDT FYI T/C to pt. Through [employer] id - [id number] for below message. Pt. States she is having apt. With Dr. Sims on 05/03/2023 and wants to discuss on that day. Pt. Advised to give call back on [phone] if any questions or concerns. Pt. Verbally agreed and understood. Please review and advise if needed. * Telephone Encounter - Romeo Child - 04/09/2023 12:19 PM EDT Tc from pt requesting status on results for Liver that were done a moth ago pt states. Please contact pt at [phone] Syriac Speaker documented in this encounter Plan of Treatment Upcoming Encounters Date Type Department Care Team (Late st Contact Info) Description 10/12/2024 2:00 PM EST Office Visit [facility] ADULT DENTAL [address] [place] [address] Phillip Borrego, DMD [address] [place] [address] 10/23/2024 1:00 PM EST Office Visit [facility] MEDICINE [address] [place] [address] Yecenia Frias FNP [address] [place] [address] 10/24/2024 1:00 PM EST Clinical Support [address] [address] Kira Bansal, MEREDITH documented as of this encounter Visit Diagnoses Not on filedocumented in this encounter Additional Health Concerns Assessment Noted Time PHQ-9 Depression Total Score: 0 04/02/20 23 2:10 PM EDT documented as of this encounter Care Teams Health Promoter Relationship Specialty Start Date End Date Marc Nicolas AGNP PCP - General Family Medicine 10/22/22 04/20/23 Radha Shah FNP [address] [place] [address] PCP - General Family Medicine 04/21/23 04/25/24 LonsdaleYecenia whipple FNP [address] [place] [address] PCP - General Family Medicine 04/26/24 Colby Hirsch FNP [address] [place] [address] Nurse Practitioner Family Medicine 07/13/23 Candice Ugarte Public Health TechnologistTool Lathe Operator 12/27/23 documented as of this encounter
--- OUTSIDE RECORDS SUMMARY | 2024-10-10 16:41 | XMS_ITS | Clinical Summary ---
Author Organization [employer] Address [address] [facility] [address] [place] [address] Care Team Providers Care Assurance Analyst Name Role Phone Colby Hirsch CORPORATE MANAGER Unavailable Unavailable [facility] CORPORATE MANAGER Primary Care Provider [phone] Allergies Active Allergy Reactions Criticality Noted Date [...] 3 times every day prn wheezing/dyspne a 01/09/20 21 Active albuterol 108 (90 Base) MCG/ACT inhaler inhale 2 puff by inhalation route every 4 - 6 hours as needed prn wheezing/dyspne a 10/31/19 22 Active SUMAtriptan (Imitrex) 50 MG tablet Take 1 tablet by mouth. 04/01/20 22 Active riboflavin (Vitamin B-2) 400 MG tablet Take 1 tablet via oral route daily 02/05/20 21 Active polyethylene glycol, PEG, 3350 (Glycolax) 17 GM/SCOOP powder take (17G) by oral route every day mixed with 8 oz. water, juice, soda, coffee or tea 08/12/20 20 Active Misc. Devices (Pulse Oximeter For Finger) misc -Check pulse and oxygen daily and prn 03/02/20 22 Active magnesium 200 MG tablet Take 1 tablet via oral route daily. 03/20/20 21 Active loperamide (Imodium A-D) 2 MG tablet 1 tab PO q4h prn diarrhea 01/03/20 21 Active fluticasone (Flonase) 50 MCG/ACT nasal spray USE 1-2 SPRAYS IN EACH NOSTRIL IN THE MORNING SHAKE GENTLY 48 g 04/27/20 23 Active atorvastatin (Lipitor) 40 MG tablet Take 1 tablet by mouth Once daily. 03/12/20 23 Active Novofine Pen Needle 32G X 6 MM misc USE ONCE DAILY DIRECTED 06/01/20 23 Active Lancets (Unilet Micro-Thin 33G) misc USE FOUR TIMES DAILY TO TEST BLOOD SUGAR 06/01/20 23 Active pyridoxine (Vitamin B-6) 100 MG tablet Take 1 tablet by mouth in the morning. 03/10/20 23 Active cetirizine (ZyrTEC) 10 MG tablet TAKE 1 TABLET BY MOUTH EVERY MORNING 90 tablet 1 08/18/20 23 Active Diclofenac Sodium 1 % gelIndications: Pain of left thumb Apply once a day on the affected hand 100 g 1 10/15/19 24 Active docusate sodium (Colace) 100 MG capsuleIndicati ons:Constipatio n, unspecified constipation type TAKE 1 CAPSULE BY MOUTH TWICE DAILY 180 capsule 1 10/22/19 24 Active naloxone (Narcan) 4 mg/0.1 mL nasal spray Administer 1 spray (4 mg) into affected nostril(s) if needed for opioid reversal. May repeat every 2-3 minutes if needed, alternating nostrils, until medical assistance becomes available. 2 each 10/29/19 24 2024 Active naloxone (Narcan) 4 mg/0.1 mL nasal spray FOR SUSPECTED OPIOID OVERDOSE. SPRAY 0.1mL IN ONE NOSTRIL. REPEAT IN ALTERNATE NOSTRIL 2-3 MINUTES IF NEEDED. SEEK MEDICAL ATTENTION IMMEDIATELY EVEN IF PATIENT RESPONDS. 2 each 1 11/12/19 24 Active Bisacodyl EC 5 MG EC tablet TAKE 1 TABLET BY MOUTH EVERY DAY NEEDED FOR CONSTIPATION. DO NOT BREAK, CRUSH, DISSOLVE OR CHEW. 30 tablet 12/07/19 24 Active insulin pen needle (UltiGuard SafePack Pen Needle) 29G x 12.7mm misc Use as instructed 100 each 12 02/08/20 24 2024 Active metFORMIN XR (Glucophage-XR) 500 MG 24 hr tabletIndicatio ns:Type 2 diabetes mellitus without complication, with long-term current use of insulin (CMS/HCC) TAKE 1 TABLET BY MOUTH EVERY DAY WITH DINNER 90 tablet 1 02/16/20 24 Active D3 Super Strength 50 MCG (2000 UT) capsule TAKE 1 CAPSULE BY MOUTH DAILY IN THE MORNING 90 capsule 3 02/29/20 24 Active Blood Pressure kit 1 kit 2 times daily. 1 kit 03/17/20 24 2024 Active glucose blood test stripIndication s:Type 2 diabetes mellitus without complication, with long-term current use of insulin (CMS/HCC) 1 each by Other route 2 times daily. 100 each 12 04/11/20 24 Active beta carotene (vitamin A) 3 MG (58114 UT) capsule TAKE 1 CAPSULE BY MOUTH EVERY MORNING 90 capsule 1 05/22/20 24 Active clotrimazole (Lotrimin) 1 % vaginal creamIndication s:Vulvovaginal Candidiasis Insert one applicator per vagina at bedtime for 7 nights 45 g 07/05/20 24 Active Tirzepatide 2.5 MG/0.5ML solution auto-injectorIn dications:Type 2 diabetes mellitus without complication, with long-term current use of insulin (CMS/HCC) Inject 2.5 mg under the skin 1 (one) time per week. 2 mL 3 07/24/20 24 2024 Active budesonide-form oterol (Symbicort) 80-4.5 MCG/ACT inhalerIndicati ons:Mild intermittent asthma without complication Inhale 2 puffs every 4-6 hours as needed for wheezing, shortness of breath 1 each 11 07/24/20 24 Active mirtazapine (Remeron) 7.5 MG tabletIndicatio ns:Major depression with psychotic features (CMS/HCC) Take 1 tablet (7.5 mg) by mouth at bedtime. 30 tablet 1 08/07/20 24 Active risperiDONE (RisperDAL) 2 MG tabletIndicatio ns:Major Depressive Disorder Take 1 tablet (2 mg) by mouth at bedtime. 30 tablet 1 08/07/20 24 Active Blood Glucose Monitoring Suppl (FreeStyle Lite) w/Device kitIndications: Type 2 diabetes mellitus without complication, with long-term current use of insulin ([facility]) 1 Device 2 times daily. 1 kit 08/09/20 24 Active acetaminophen (Tylenol 8 Hour) 650 MG ER tabletIndicatio ns:Arthralgia, unspecified joint TAKE 1 TABLET BY MOUTH EVERY 6 HOURS NEEDED 60 tablet 1 08/30/19 25 Active famotidine (Pepcid) 20 MG tabletIndicatio ns:Gastroesopha geal reflux disease with esophagitis without hemorrhage Take 1 tablet (20 mg) by mouth 2 times daily. 60 tablet 11 09/25/19 25 2025 Active Alcohol Swabs (Alcohol Prep) 70 % pads USE 1 FOUR TIMES DAILY DIRECTED 200 each 11 09/27/19 25 Active omeprazole (PriLOSEC) [address] capsule TAKE 1 CAPSULE BY MOUTH EVERY MORNING BEFORE BREAKFAST. DO NOT BREAK, CRUSH, DISSOLVE OR CHEW. 90 capsule 3 10/02/19 25 Active oxymetazoline (Afrin Nasal [place]) 0.05 % nasal sprayIndication s:Viral upper respiratory illness Administer 2 sprays into each nostril every 12 (twelve) hours if needed for congestion for up to 2 days. Do not use for more than 3 days. 30 mL 10/02/19 25 Active ibuprofen 600 MG tabletIndicatio ns:Viral upper respiratory illness Take 1 tablet (600 mg) by mouth every 6 (six) hours if needed for mild pain. 30 tablet 1 10/02/19 25 Active nitrofurantoin, macrocrystal-mo nohydrate, (Macrobid) 100 MG capsuleIndicati ons:Urinary tract infection symptoms Take 1 capsule (100 mg) by mouth 2 times daily for 5 days. 10 capsule 10/10/19 25 2024 Active Alcohol Swabs (Easy Touch Alcohol Prep Medium) 70 % pads Apply 1 Pad topically 4 times daily. USE 1 FOUR TIMES DAILY 200 each 07/20/20 23 2024 Discontinued omeprazole (PriLOSEC) [address] capsule Take 1 capsule (40 mg) by mouth before breakfast. Do not crush or chew. 90 capsule 3 10/22/19 24 2024 Discontinued ibuprofen 600 MG tabletIndicatio ns:COVID-19,Acu te right otitis media Take 1 tablet (600 mg) by mouth every 8 (eight) hours if needed for mild pain. 90 tablet 3 06/16/20 24 2024 Discontinued traMADol (Ultram) 50 MG tabletIndicatio ns:Multiple joint pain Take 1 tablet (50 mg) by mouth every 12 (twelve) hours if needed for severe pain for up to 28 days. Do not start before September 05, 2024. 56 tablet 09/05/19 25 2024 cephalexin (Keflex) 500 MG capsuleIndicati ons:Cellulitis of face Take 1 capsule (500 mg) by mouth 3 times daily for 7 days. 21 capsule 09/26/19 25 2024 Active Problems Problem Noted Date Diagnosed Date Cellulitis of face 09/26/2024 Assessment & Plan (09/26/2024 5:22 PM EST): Symptoms likely due to stye but cannot rule out early cellulitis given redness and tenderness in fat pad. Will prescribe cephalexin tid for 7 days started 09/25/24. Continue warm compress. Strict ER precautions discussed. Chest pain, atypical 09/25/2024 Assessment & Plan (09/25/2024 6:36 PM EST): Pt reports comprehensive cardiac work up for these symptoms, denies any increase or change since that work up Does endorse chest burning which may be attributed to asthma vs gerd Add famotidine bid Return to clinic for worsening symptoms Pt aware that if chest pain acutely worsens to call 911 Sleep apnea 09/25/2024 Shortness of breath 09/25/2024 [...] labs 05/09/24 -discussed ER precautions. Asthma 03/16/2024 Assessment & Plan (09/25/2024 6:34 PM EST): Encouraged ongoing use of inhalers Referral to pulmonary for sob despite no adventitious breath sounds Back pain 03/16/2024 Fatty liver 03/16/2024 Left [...] Sacha is currently on the waitlist for CC. She was informed to call next month [...] support system PLAN: 1. Follow up with [facility] [place]: Not recommended for follow-up 2. Patient goal is to manage symptoms 3. Behavioral Recommendations a. F/U with [facility] b. Reach out for support Ext. [phone] [...] mechanism to manage sxs, provided her with [facility] Crisis number for after hrs support. She was previously referred by [facility] on January 15 for OP services for Ind. Therapy and Medication Management. Provided education around integrated medicine and the options of follow up BE's as needed. Provided contact information should questions or concerns arise. Plan: Scaha will continue to engage in effective coping mechanisms of that has work for her, she will also try new coping skills discussed in session. She will contact [facility] crisis number as needed. Patient with [...] in services PLAN: 1. Follow up with [facility] [place]: Not recommended for follow-up 2. Patient goal [...] in person with a female clinician in [place]. At this time Sacha Rodriguez meets criteria for Visit Diagnoses: Anxiety Disorder Unspecified Patient ready to address current needs Yes Strengths include coping mechanisms of walking and distracting self PLAN: 1. Follow up with [facility] [place]: Not recommended for follow-up 2. Patient goal [...] >60 CM >60 CM Comment: NOTE: ??For -Finnish individuals, multiply the result ? by .Chronic Kidney Disease: ??Estimated GFR < 60 mL/min/1.49c8Aosiqa Kidney Disease: ??Estimated GFR < 15 mL/min/1.73m2 [...] >60 CM >60 CM Comment: NOTE: ??For -Finnish individuals, multiply the result ? by .Chronic Kidney Disease: ??Estimated GFR < 60 mL/min/1.43l6Cnppoh Kidney Disease: ??Estimated GFR < 15 mL/min/1.73m2 [...] retiring patient is now referred to new [facility] psychiatric provider. Pt is aware that appts will be via televisit and that provider will not be an [facility] employee. She gives permission to share PHI. [...] night at bedtime (not prn). Based on CUSTOMER ORDER CLERK notes, she appears to be taking Clonazepam [...] organization. Date Type Department Care Team Description 10/10/2024 2:00 PM EST Office Visit [facility] [address] [place] [address] Urinary tract infection symptoms (Primary Dx); Diarrhea, unspecified type 10/02/2024 2:00 PM EST Office Visit [facility] [address] [place] [address] Yecenia Frias FNP Viral upper respiratory illness (Primary Dx) 10/02/2024 Refill [facility] [address] [place] [address] Yecenia Frias FNP Multiple joint pain 10/02/2024 Travel 10/02/2024 Telephone [facility] [address] [place] [address] Yecenia Frias FNP Nurse Triage 10/01/2024 Refill [facility] [address] [place] [address] Radha Shah FNP 09/29/[address] [address] [facility] Med Refill 09/26/2024 5:00 PM EST Office Visit [facility] [address] [place] [address] Quin Victoria MD Cellulitis of face (Primary Dx); Hordeolum externum of left lower eyelid 09/26/2024 Telephone [facility] [address] [place] [address] Amy Almanza RN 09/25/2024 2:00 PM EST Office Visit [facility] [address] [address] Debbie Madera NP Chest pain, atypical (Primary Dx); Obstructive sleep apnea syndrome; Mild intermittent asthma, unspecified whether complicated; Shortness of breath; Gastroesophageal reflux disease with esophagitis without hemorrhage 09/25/2024 Orders Only GENERIC EXTERNAL DATA DEPARTMENT Provider, Generic External Data 09/25/2024 Refill [facility] [address] [place] [address] Radha Shah FNP 09/21/2024 Patient Outreach [address] [address] [facility] Care Coordination ([facility] Kelly Obrien telephone call outreach) 09/18/2024 Patient Outreach [address] [address] [facility] Care Coordination ([facility] Kelly Obrien telephone call outreach ) 09/14/2024 10:30 AM EST Office Visit [facility] [address] [place] [address] Glenn, Akila, OD Diabetes type 2, no ocular involvement (CMS/HCC) (Primary Dx); Dry eyes, bilateral; Presbyopia of both eyes 09/14/2024 Travel 09/13/2024 Telephone [facility] [address] [place] [address] [place] [facility] FYI 09/13/2024 Travel 09/06/2024 Patient Outreach [facility] [address] [place] [address] [facility] Care Coordination ([facility] Kelly Obrien telephone call outreach) 09/01/2024 Refill [facility] [address] [place] [address] [facility] Multiple joint pain 08/29/2024 Refill [facility] [address] [place] [address] [facility] Arthralgia, unspecified joint 08/21/2024 4:00 PM EST Office Visit [facility] [address] [place] [address] Name, MD Tony Sore throat (Primary Dx); Acute cough 08/11/[address] [address] [place] [facility] Follow up call 08/11/[address] [phone] [place] [facility] 08/11/2024 Patient Outreach [address] [address] [facility] ([facility] Kelly Obrien telephone call outreach) 08/09/2024 Refill [facility] [address] [place] [address] [facility] Type 2 diabetes mellitus without complication, with long-term current use of insulin ([facility]) 08/08/2024 Patient Outreach [facility] [address] [place] [address] [place] [facility] Care Coordination ([facility] Kelly Obrien telelphone call outreach) 08/08/2024 Patient Outreach [address] [address] [place] [facility] Care Coordination (CHW outreach for SDOH housing search-no answer, LVM ) 08/08/2024 Telephone [facility] [address] [facility] 08/03/2024 Telephone [facility] [place] [address] Kira Bansal RN 08/03/2024 Refill [facility] [phone] [facility] Arthralgia, unspecified joint 08/03/2024 Refill [facility] [place] [address] [facility] Multiple joint pain 07/31/2024 1:00 PM EST Clinical Support [facility] [place] [address] Kira Bansal, superintendent stevedoring midline back pain, unspecified back location (Primary Dx) 07/31/2024 Telephone [facility] [place] [address] [facility] FYI 07/31/2024 Telephone [facility] [place] [address] Kira Bansal, RN UTOX Neg BZO, Forgot Clonazepam 07/31/2024 Telephone [facility] [place] [address] [facility] refill 07/31/2024 Travel 07/31/2024 Telephone [facility] [place] [address] Kira Bansal, RN Recomend CUSTOMER ORDER CLERK Tier 2 07/25/2024 Patient Outreach [facility] [place] [address] [facility] Care Coordination (C3 -W Kelly Obrien telephone call outreach) 07/24/2024 10:45 AM EST Office Visit [facility] [place] [address] [facility] Type 2 diabetes mellitus without complication, with long-term current use of insulin ([facility]) (Primary Dx); Essential hypertension; Varicose veins of both lower extremities with pain; Furuncle of abdominal wall; Mild intermittent asthma without complication; Housing insecurity 07/24/2024 Travel 07/12/2024 Telephone [facility] [address] [place] [address] Mala De La Torre, RN Results 07/11/2024 Patient Outreach [facility] [address] [place] [address] Yecenia Frias FNP Pre-visit Planning ([facility] screening was completed on 03/01/2024) 07/10/2024 Telephone [facility] [address] [place] [address] Amy Almanza RN 07/10/2024 Travel from Last 3 Months Immunizations Name Administration [...] with others, in a hotel, in a half-way, living outside on the street, on a [...] 18 10/10/2024 2:01 PM EST Oxygen Saturation 98% 09/26/2024 4:46 PM EST Inhaled Oxygen Concentration - - Weight 80.6 kg (177 lb 12.8 oz) 10/10/2024 2:01 PM EST Height 154.9 cm (5' 1 ) 10/10/2024 2:01 PM EST Body Mass Index 33.6 10/10/2024 2:01 PM EST Plan of Treatment Upcoming Encounters Date Type Department Care Team (Late st Contact Info) Description 10/12/2024 2:00 PM EST Office Visit [facility] [address], [place] [phone] Phillip Borrego, DMD [address] [place] [address] 10/23/2024 1:00 PM EST Office Visit [facility] [address], [place] [phone] Yecenia Frias, CORPORATE MANAGER [address] [place], [place] [phone] 10/24/2024 1:00 PM EST Clinical Support [address] [phone] Kira Bansal, RN Health Maintenance Due Date [...] 08/25/2023 08/25/2013, 02/11/2007, 01/19/1994 COVID-19 Vaccine ( - season) 2024 10/08/2022, 05/05/2021, 04/08/2021 Influenza Vaccine (#1) 2024 08/25/2013 Diabetes: Hemoglobin A1C 10/22/2024 024, 10/22/2023, 02/09/2023, Additional history exists Diabetes: Urine Protein Screening 02/06/2025 02/07/2024, 09/15/2022, 12/12/2020, Additional history exists Depression Screening 03/07/2025 03/07/2024, 03/07/20 24 SDOH Screening 07/25/2025 07/25/2024 Lipid Panel 09/25/2025 09/25/2024, 04/24, 03/06/2024, Additional history exists Tobacco Screening 10/05/2025 10/05/2024 Mammogram 11/15/2025 11/16/2023 Eye Exam 09/14/2026 09/14/2024, [...] 2:18 PM EST Urinary tract infection symptoms POCT INFLUENZA A Routine 10/02/2024 2:44 PM EST Viral upper respiratory illness POCT INFLUENZA B Routine 10/02/2024 2:44 PM EST Viral upper respiratory illness POCT RAPID COVID ANTIGEN Routine 10/02/2024 2:44 PM EST Viral upper respiratory illness LIPID PANEL, STANDARD Routine 09/25/2024 1:22 PM EST COMPREHENSIVE METABOLIC PANEL Routine 09/25/2024 1:22 PM EST Shortness of breath CBC WITH AUTO DIFFERENTIAL Routine 09/25/2024 1:22 PM EST Shortness of breath TSH W/REFLEX TO FT4 Routine 09/25/2024 1 :22 PM EST Shortness of breath POC BALL ID NOW STREP A Routine 08/21/2024 3:53 PM EST Sore throat POCT INFLUENZA B (ID NOW RAPID MOLECULAR) Routine 08/21/2024 3:53 PM EST Sore throat POCT INFLUENZA A (ID NOW RAPID MOLECULAR) Routine 08/21/2024 3:53 PM EST Sore throat POCT RAPID COVID ANTIGEN Routine 08/21/2024 3:53 PM EST Sore throat POCT CASIS-14 URINE DRUG SCREEN Routine 07/31/2024 12:40 PM EST Chronic midline back pain, unspecified back location DRUG MONITORING, BENZODIAZEPINES, QUANTITATIVE, URINE Routine 07/31/2024 12:30 PM EST Chronic midline back pain, unspecified back location POCT GLYCATED HEMOGLOBIN, TOTAL Routine 07/24/2024 10:47 AM EST Type 2 diabetes mellitus without complication, with long-term current use of insulin (CMS/HCC) POCT GLUCOSE Routine 07/24/2024 10:45 AM EST Type 2 diabetes mellitus without complication, with long-term current use of insulin (CMS/HCC) ALBUMIN, RANDOM URINE W/CREATININE Routine 02/07/2024 2:09 [...] Recently Relevant to Health Maintenance Results * (ABNORMAL) POCT Urinalysis (10/10/2024 2:18 PM EST) [facility] Color, UA Yellow Clarity, UA Cloudy Glucose, [...] CARE TEST EN TER/EDIT ORDERABLES Final Result * POCT Rapid Covid-19 BinaxNOW (10/02/2024 2:44 PM EST) Only the most recent of2 resultswithin the time period is included. [facility] Rapid COVID Ag Negative Swab 10/02/2024 2:44 PM EST [facility] POINT OF CARE TEST ENTER/EDIT ORDERABLES Final Result * POCT Rapid Influenza B OSOM (10/02/2024 2:44 PM EST) [facility] Rapid Influenza B Ag Negative Negative, Indeterminate Swab 10/02/2024 2:44 PM EST Result [facility] POINT OF CARE TEST ENTER/EDIT ORDERABLES Final Result * POCT Rapid Influenza A OSOM (10/02/2024 2:44 PM EST) Rapid Influenza A Ag Negative Negative, Indeterminate Swab Nasopharyngeal structure / Unknown 10/02/2024 2:44 PM EST [facility] CORPORATE MANAGER POINT OF CARE TEST ENTER/EDIT ORDERABLES Final Result * TSH W/Reflex to FT4 (09/25/2024 1:22 PM EST) TSH reflex Free T4 1.57 0.32 - 4.0 uIU/mL [facility] Blood Venous blood specimen / Unknown 09/25/2024 1:22 PM EST 09/25/2024 4:00 PM EST Debbie Madera SUPERINTENDENT [employer] [facility] BLOOD ORDERABLES Final Resul t [facility] [address] [place] [address] [phone] * CBC auto differential (09/25/2024 1:22 PM EST) White Blood Count 7.7 4.8 - 10.8 X10*3/uL [facility] Red Blood Count 4.60 4.20 - 5.50 X10*6/uL [facility] Hemoglobin 12.9 12.0 - 16.0 g/dl [facility] Hematocrit 39.4 37.0 - 47.0 % [facility] Mean Corpuscular Volume 85.7 80.0 - 98.0 fL [facility] Mean Corpuscular Hemoglobin 28.0 27.0 - 33.0 pg [facility] Mean Corpuscular HGB Conc 32.7 31.0 - 35.0 g/dl [facility] Red Cell Distribution Width 12.9 11.0 - 16.0 % [facility] Platelet Count 252 160 - 400 X10*3/uL [facility] Mean Platelet Volume 11.1 9.4 - 12.3 fL [facility] Neutrophils Percent Auto 58.7 45 - 73 % [facility] Imm Gran Pct Auto 0.4 0.0 - 0.4 % [facility] Lymphocytes Percent Auto 32.7 20 - 40 % [facility] Monocytes Percent Auto 6.2 2 - 11 % [facility] Eosinophils Percent Auto 1.7 0 - 4 % [facility] Basophils Percent Auto 0.3 0 - 2 % [facility] NRBC Pct Auto 0.0 0.0 - 0.2 /100WBC [facility] Neutrophils Absolute Auto 4.5 2.0 - 8.3 x10*3/uL [facility] Imm Gran Abs Auto 0.03 0.00 - 0.03 X10*3/uL [facility] Lymphocytes Absolute Auto 2.5 1.2 - 4.9 X10*3/uL [facility] Monocytes Absolute Auto 0.5 0.1 - 1.2 X10*3/uL [facility] Eosinophils Absolute Auto 0.1 0.0 - 0.4 X10*3/uL [facility] Basophils Absolute Auto 0.0 0.0 - 0.2 X10*3/uL [facility] NRBC Abs Auto 0.000 0.0 - 0.012 X10*3/uL [facility] Blood Venous blood specimen / Unknown 09/25/2024 1:22 PM EST 09/25/2024 4:00 PM EST us Debbie Madera SUPERINTENDENT [employer] LAB BLOOD ORDERABLES Final Resul t [facility] [address] [place] [address] [phone] * (ABNORMAL) Lipid Panel, Standard (09/25/2024 1:22 PM EST) Triglycerides 109 <150 mg/dL [facility] Comment:Desirable Triglyceri de: less than 150 mg/dLBorderline High Triglyceride 150-199 mg/dLHigh Triglyceride: 200-499 mg/dLVery High Triglyceride: greater than or equal to 5OO mg/dL Cholesterol 128 <200 mg/dL [facility] Comment:Desirable Cholestero l: less than 200 mg/dLBorderline High Cholesterol: 200-239 mg/dLHigh Cholesterol: greater than 239 mg/dL LDL Cholesterol Calculated 71 <100 mg/dL [facility] Comment:Desirable LDL: less than 100 mg/dLNear Optimal/Above Optimal LDL: 110- 129 mg/dLBorderline High LDL: 130-159 mg/dLHigh LDL: 160-189 mg/dLVery High LDL: greater than or equal to 190 mg/dL HDL Cholesterol 36(L) >40 mg/dL [facility] Comment:Desirable HDL: great er than 40 mg/dL Note: This HDL assay may give artificially low results in patients with liver disease. 09/25/2024 1:22 PM EST 09/25/2024 4:00 PM EST us Generic External Data Provider LAB BLOOD ORDERAB LES Final Result [facility] [address] [place] [phone] * (ABNORMAL) Comprehensive Metabolic Panel (09/25/2024 1:22 PM EST) Sodium 140 135 - 145 mmol/L [facility] Potassium 3.9 3.3 - 5.1 mmol/L [facility] Chloride 110(H) 96 - 108 mmol/L [facility] Carbon Dioxide 24 22 - 29 mmol/L [facility] Anion Gap 10(L) 12 - 20 [facility] Urea Nitrogen (BUN) 8(L) 9 - 16 mg/dL [facility] Creatinine, Serum 0.65 0.5 - 1.4 mg/dL [facility] Estimated Glomerular Filt Rate >60 [facility] Comment:Chronic Kidney Disea se: Estimated GFR < 60 mL/min/1.53w9Nfagjn Kidney Disease: Estimated GFR < 15 mL/min/1.73m2 Glucose 92 60 - 115 mg/dL [facility] Calcium 9.2 8.4 - 10.2 mg/dL [facility] Bilirubin, Total 0.5 0.0 - 1.0 mg/dL [facility] Aspartate Amino Transferase 29 5 - 31 U/L [facility] Alanine Aminotransferase 15 0 - 31 U/L [facility] Total Protein 8.0 6.5 - 8.0 g/dL [facility] Albumin Level 4.2 3.5 - 5.0 g/dL [facility] Alkaline Phosphatase 110 39 - 117 U/L [facility] Blood Venous blood specimen / Unknown 09/25/2024 1:22 PM EST 09/25/2024 4:00 PM EST Debbie Madera SUPERINTENDENT SEED MILL LAB BLOOD ORDERABLES Final Resul t Performing Organization Address [facility] Co de Phone Number [facility] [address] [place] [phone] * POCT Rapid Influenza B BALL ID NOW (08/21/2024 3:53 PM EST) [facility] Influenza B Negative Negative, Indeterminate [facility] Swab 08/21/2024 3:53 PM EST Tony Haywood MD POINT OF CARE TEST ENTER/EDIT OR DERABLES Final Result Performing Organization Address [facility] Co de Phone Number [facility] [address] [place] [phone] * POCT Rapid Influenza A BALL ID NOW (08/21/2024 3:53 PM EST) [facility] Influenza A Negative Negative, Indeterminate [facility] Swab 08/21/2024 3:53 PM EST us Tony Haywood MD POINT OF CARE TEST ENTER/EDIT OR DERABLES Final Result Performing Organization Address [facility] Phone Number [facility] [address] [place] [phone] * POCT Rapid Strep A BALL ID NOW (08/21/2024 3:53 PM EST) Rapid Strep A Screen Negative Negative, None Detected Swab 08/21/2024 3:53 PM EST Tony Haywood MD POINT OF CARE TEST ENTER/EDIT OR DERABLES Final Result * (ABNORMAL) POCT CASSI-14 Urine Drug Screen (07/31/2024 12:40 PM EST) Benzodiazepines Screen, Urine Negative Urine Urine specimen obtained by clean catch procedure / Unknown 07/31/2024 12:40 PM EST Narrative Kira Bansal RN - 07/31/2024 12:40 PM EST UTOX cup Lot#[id number] Exp. 05/17/26 Internal Pass Control [facility] POINT OF CARE TEST ENTER/EDIT ORDERABLES Final Result * Drug Monitoring, Benzodiazepines, Quantitative, Urine (07/31/2024 12:30 PM EST) Nordiazepam, GCMS Urine NEGATIVE [facility] Oxazepam, GCMS Urine NEGATIVE [facility] Lorazepam GCMS Urine NEGATIVE [facility] Alprazolam, GCMS Urine NEGATIVE [facility] Alphahydroxytriazolam, GCMS Ur NEGATIVE [facility] Temazepam, GCMS Urine NEGATIVE [facility] Alphahydroxymidazolam,GC MS Ur NEGATIVE [facility] Aminoclonazepam, GCMS Urine NEGATIVE [facility] Flurazepam Metabolite,GCMS Ur NEGATIVE [facility] Benzodiazepines Comments SEE NOTE [facility] Comment:This drug testing is for medical treatment only.Analysis was performed as non-forensic testing andthese results should be used only by healthcareproviders to render diagnosis or treatment, or tomonitor progress of medical conditions.LDT Notes:Confirmation tests were developed and their analyticalperformance characteristics have been determined by[facility]. It has not been cleared or approvedby the FDA. This assay has been validated pursuant tothe CLIA regulations and is used for clinical purposes.Healthcare Providers needing Interpretation assistance,please contact us at [phone] ( )M-F, 8am to 10pm ESTTHIS TEST PERFORMED AT:[facility] [address] [phone] DIRECTOR: KWESI TAYLOR MD Urine (Urine, Random) 07/31/2024 12:30 PM EST 07/31/2024 5:55 PM EST [facility] LAB URINE ORDERABLES Final Re sult [facility] [address] [place] [phone] * POCT HGB A1C (07/24/2024 10:47 AM EST) Hemoglobin A1C 5.4 4.0 - 6.0 % QC Media Lot # [id number] Lot# Expiration Date 903, Blood 07/24/2024 10:4 7 AM EST [facility] POINT OF CARE TEST ENTER/EDIT ORDERABLES Final Result * POCT Glucose (07/24/2024 10:45 AM EST) Glucose Blood, POC 146 60 - 200 mg/dL [employer] Media Lot # [id number] Lot# Expiration Date ,742,934 Blood Capillary blood specimen / Unknown 07/24/2024 10:45 AM EST [facility] POINT OF CARE TEST ENTER/EDIT ORDERABLES Final Result * Albumin, Random Urine W/Creatinine (02/07/2024 2:09 PM EDT) Creatinine, Urine 164.92 mg/dL [facility] Microalbumin Urine 16.0 mg/L H [facility] Microalbum Creatinine Ratio Ur 9.7 <30 ug/mg cr [facility] Comment:Albumin/Creatinine R atio Reference Ranges: Normal: < 30 ug/mg creatinine Microalbuminuria: 30 - 300 ug/mg creatinineClinical Albuminuria: > 300 ug/mg creatinine Urine (Urine, Random) 02/07/2024 2:09 PM EDT 02/07/2024 3:55 PM EDT us Radha Shah CORPORATE MANAGER LAB URINE ORDERABLES Final Resu lt [facility] [address] [place] [phone] [phone] * BI Mammogram Screening Tomosynthesis Bilateral (11/16/2023 1:25 PM EDT) Anatomical Region Laterality Modality Breast Bilateral Mammography 11/16/2023 1:25 PM EDT Narrative 12/02/2023 6:15 AM EDT ? [facility] ? [address] ?[place] [address] ? Mammography Report ? Signed ? Patient: Sacha Contreras ?MR#: [id number] ?? [id number] ? : 1980 ?Acct:[id number] ? Age/Sex: 42 / F ?ADM Date: 11/15/ ? Loc: HO.MAMMO ? Attending Dr: Radha Shah SUPERINTENDENT SEED MILL ? Ordering Physician: Radha Shah SUPERINTENDENT SEED MILL ?Results: 1Negativ ?? e ? Date of Service: 11/15/ ?Follow Up: 1 Year From Orig ?? inal Mammogram ? Procedure(s): MM tomosynthesis screening BI ?? Accession Number(s): [id number] ? cc: Radha Shah SUPERINTENDENT SEED MILL ? EXAMINATION: ?? MM SCREENING DIGITAL BREAST [...] 12/02/23610 ? DD/ 1325 ? TD/TT: ? Liaison Inspection Laboratory Assistant: ? Procedure Note Rowena Gao - 12/02/2023 [facility] [address] [place] [address] Dr. Wagoner, FELICITY [address] Mammography Report Signed Patient: Unique ContrerassMR#: [id number] : 1980Acct:[id number] Age/Sex: 42 / FADM Date: 11/16/23 Loc: HO.MAMMO Attending Dr: Radha Shah SUPERINTENDENT SEED MILL Ordering Physician: Radha Shah NPResults: 1Negativ e Date of Service: 11/16/23Follow Up: 1 Year From Orig inal Mammogram Procedure(s): MM tomosynthesis screening BI Accession Number(s): [id number] cc: Radha Shah SUPERINTENDENT SEED MILL EXAMINATION: MM SCREENING DIGITAL BREAST TOMOSYNTHESIS, BILATERAL [...] in OV> 12/02/23 0611 DD/ 1325 TD/TT: Liaison Inspection Laboratory Assistant: Radha Shah [facility] BI PROCEDURES Final Result * (ABNORMAL) Hepatitis Panel, General (02/22/2023 1:46 PM EDT) Hepatitis A Antibody Total REACTIVE( A) NON-REACT [facility] [employer] Comment: For additional information, please refer to http://education.Talenthouse/faq/YFX928 (This link is being provided for informational/ educational purposes only.) Hepatitis B Surface Antibody QL REACTIVE( A) NON-REACT [employer] Hepatitis B Surface Ag NON-REACT TAWNYA NON-REACT [employer] [place] [employer] [facility] Comment: For additional information, please refer to http://Urban Remedy/faq/AXT427 (This link is being provided for informational/ educational purposes only.) Hepatitis B Core Antibody Total NON-REACT TAWNYA NON-REACT [facility] [place] [facility] Comment: For additional information, please refer to http://Urban Remedy/faq/HCY997 (This link is being provided for informational/ educational purposes only.) Hepatitis C Antibody NON-REACT TAWNYA NON-REACT [employer] [place] [employer] Comment: HCV antibody was non-reactive. There is no laboratory evidence of HCV infection. In most cases, no further action is required. However, if recent HCV exposure is suspected, a test for HCV RNA (test code 77627) is suggested. For additional information please refer to http://Urban Remedy/faq/DDV75r4 (This link is being provided for informational/ educational purposes only.) 02/22/2023 1:46 PM EDT 02/22/2023 1:46 PM EDT Narrative [facility] - 02/26/2023 7:51 PM EDT FASTING:NO FASTING: NO Marc [facility] LAB BLOOD ORDERABLES Final Res ult [facility] [address], [place] [address] [employer] [place] [facility] [address] [place] [address] from Last 3 Months or Most Recently Relevant to Health Maintenance Insurance [facility] C[place] [phone] Care Teams Assurance Analyst Relationship Specialty Start Date End Date Yecenia Frias FNP [address] [place] [address] PCP - General Family Medicine 04/26/24 Colby Hirsch FNP Nurse Practitioner Family Medicine 07/13/23 Candice Ugarte Mechanics SupervisorSpecial Forces Weapons Sergeant 12/27/23
--- OUTSIDE RECORDS SUMMARY | 2024-10-10 16:41 | XMS_ITS | Encounter Summary ---
Author Organization [facility] Address [address] [facility] 7t [place] [address] Care Team Providers Care Field Broomer Name Role Phone Marc Nicolas Primary Care Provider Unavail able Radha Shah MANAGER PROGRESSIVE CARE Primary Care Provider [phone] Colby Hirsch Unavailable Unavailable [facility] MANAGER PROGRESSIVE CARE Primary Care Provider [phone] Reason for Visit * Reason Comments Med Refill Encounter Details Date Type Department Care Team (Late Contact Info) Description 04/08/2023 Refill [facility] [address] [place] [address] Marc Nicolas AGNP Mixed anxiety and depressive [...] Description 10/12/2024 2:00 PM EST Office Visit [facility] ADULT DENTAL [address] [place], [place] [phone] Phillip Borrego, MYA [address] [place] [address] 10/23/2024 1:00 PM EST Office Visit [facility] [place] [address] WinchesterYecenia whipple [facility] [place] [address] 10/24/2024 1:00 PM EST Clinical Support [address] [address] Kira Bansal, MEREDITH documented as of this encounter Visit Diagnoses Diagnosis Mixed anxiety and depressive disorder Dysthymic disorder documented in this encounter Additional Health Concerns Assessment Noted Time PHQ-9 Depression Total Score: 0 04/02/20 2:10 PM EDT documented as of this encounter Care Teams Field Broomer Relationship Specialty Start Date End Date Marc Nicolas AGNP PCP - General Family Medicine 10/22/22 04/20/23 Radha Shah FNP [address] [place] [address] PCP - General Family Medicine 04/21/23 04/25/24 WinchesterYecenia whipple FNP [address] [place] [address] PCP - General Family Medicine 04/26/24 Colby Hirsch FNP [address] [place] [address] Nurse Practitioner Family Medicine 07/13/23 Candice Ugarte Environmental Health Safety EngineerNet Developer Consultant 12/27/23 documented as of this encounter
--- OUTSIDE RECORDS SUMMARY | 2024-10-10 16:41 | XMS_ITS | Patient Health Record ---
Author Organization [facility] Address [address] [place] [address] Care Team Providers Care Technical Sourcing Recruiter Name Role Phone Radha Rodriguez Primary Care Provider Jaylan Clancy Unavailable [phone] ALLERGIES Allergen (clinical drug ingredient) Drug/Non Drug [...] Referring Provider Last Name Pablo Referred Organization [facility] Referred Provider Jaylan Neal Referred Address [address] [facility],[place], [place],[address], Referred Provider Specialty Gastroentero logy General Notes Please see if a [facility] referral is on file or needed for office visit with Dr. Neal on 06-20-2024. [facility] Asha smith Dawn 05/09/2024 07:44:46 AM EDT > eligible, needs referrral...Requested from [facility] Referral Priority Routine MEDICATIONS Medication [...] DAILY Oral for 30 Active Vitamin A 97059 UNIT TAKE 1 CAPSULE BY M OUTH [...] Problem Epigastric abdominal pain (R10.13) Active confirmed 48910321 Problem Irritable bowel syndrome with diarrhea (K58.0) Active confirmed 534441566 Problem Elevated liver function tests (R79.89) Active confirmed Elevated liver enzymes level (889418321) Problem Fatty liver (K76.0) Active confirmed 19 5542890 Problem Gastroesophageal reflux disease, esophagitis presence not specified (K21.9) Active confirmed 269365952 Problem Abdominal pain, right upper quadrant (R10.11) Active confirmed 138192861 Encounters Encounter Location Date Provider Diagnosis [facility] [address] [place] [address] 01/26/[address] [facility] [address] [place] [phone] 06/20/[address] [facility] [address] [place] [phone] 06/20/2024 [facility] [address] [place] [address] 01/26/[address] [facility] [address] [place] [address] 06/16/2024 Jyalan Neal PLAN OF TREATMENT Pending Test Test Name Order Date BUN 12/29/2019 CREATININE 12/29/2019 LIVER PROFILE 04/09/2020 LIVER PROFILE 12/29/2019 LIVER PROFILE 02/04/2020 CBC w DIFF 12/29/2019 PROTHROMBIN TIME (PT, INR) 12/29/2019 [id number]-9-[id number] (A1A) 12/29/2019 CAROTENE 12/29/2019 CERULOPLASMIN 12/29/2019 MITOCHONDRIAL AB 12/29/2019 SMOOTH MUSCLE ANTIBODIES 12/29/2019 VITAMIN A 12/29/2019 NUC HIDA SCAN 10/19/2017 FLUOR. ANTINUCLEAR AB SCREEN (SERGIO) 03/2020 VITAMIN D 25-OH TOTAL 12/29/2019 Future Test Test Name Order Date UPPER GI ENDOSCOPY 10/19/2017 Insurance Providers Payer Name Payer Address Payer Phone Subscriber Number Group Number Insured Name Patient Relationship to Insured Coverage Start Date Coverage End Date MEDICAID OF [place] [address] [place] [phone] [id number] HARMAN LEUNG Self - patient is the insured MEDICAL (GENERAL) HISTORY Medical History History ICD Code Asthma Denies LA,CVA,renal disease Migraines Anxiety, depression, bipolar disease NIDDM [...] normal alpha-1 antitrypsin level as well IBS-In 2017 she had a negati ve gallbladder ultrasound, [...]
--- OUTSIDE RECORDS SUMMARY | 2024-10-10 16:42 | XMS_ITS | Encounter Summary ---
Author Organization [employer] Address [address] [facility] [address] [address] Care Team Providers Care Interventional Radiology Rn Name Role Phone Colby Hirsch SQL PROGRAMMER ANALYST Unavailable Unavailable [facility] Primary Care Provider [phone] Reason for Visit * Reason Onset Date Comments Med Refill Refill not due until 10/12/24 10/02/2024 Encounter Details Date Type Department Care Team (Late st Contact Info) Description 10/02/2024 Refill [facility] [address] [place] [address] [facility] [address] [place] [address] Multiple joint pain Social History Tobacco Use [...] with others, in a hotel, in a correction, living outside on the street, on a [...] Telephone Encounter - Kira Bansal RN - 10/02/2024 2:28 PM EST Per [place], Tramadol last picked up up 09/14/24. Refill not due until 10/12/24. Will forward to PCP on 10/10/24. Spoke with [facility] pharmacy who also confirmed Tramadol was last picked up 09/14/24. TC to patient, patient notified of date refill is due which is 10/12/24. documented in this encounter Plan of Treatment Upcoming Encounters Date Type Department Care Team (Late st Contact Info) Description 10/12/2024 2:00 PM EST Office Visit [facility] ADULT DENTAL [address] [place] [address] Phillip Borrego, DMD [address] [place] [address] 10/23/2024 1:00 PM EST Office Visit [facility] [address] [place] [address] Yecenia Frias FNP [address] [place] [address] 10/24/2024 1:00 PM EST Clinical Support [facility] [address] [place] [address] Kira Bansal RN documented as of this encounter Visit Diagnoses Diagnosis Multiple joint pain Pain in joint, multiple sites documented in this encounter Additional Health Concerns Assessment Noted Time PHQ-9 Depression Total Score: 7 03/07/20 24 10:13 AM EDT documented as of this encounter Care Teams Interventional Radiology Rn Relationship Specialty Start Date End Date Yecenia Frias FNP [address] [place] [address] PCP - General Family Medicine 04/26/24 Colby Hirsch FNP Nurse Practitioner Family Medicine 07/13/23 Candice Ugarte Catalyst OperatorDoormaker 12/27/23 documented as of this encounter
--- OUTSIDE RECORDS SUMMARY | 2024-10-10 16:42 | XMS_ITS | Encounter Summary ---
Author Organization [employer] Address [address] [facility] 7t [place] [address] Care Team Providers Care Fisher Quahog Name Role Phone Marc Nicolas Primary Care Provider Unavail able Radha Shah HOUSE VISITOR Primary Care Provider [phone] Colby Hirsch Unavailable Unavailable [facility] HOUSE VISITOR Primary Care Provider [phone] Reason for Visit * Reason Comments Med Refill Encounter Details Date Type Department Care Team (Late st Contact Info) Description 03/10/2023 Refill [facility] [address] [place] [address] Marc Nicolas AGNP Mixed anxiety and depressive [...] [facility] ADULT DENTAL [address] [place] [address] Phillip Borrego, DMD [address] [place] [address] 10/23/2024 1:00 PM EST Office Visit [facility] [address] [facility] [place] [address] Brielle [facility] [address] [place], [place] 10/24/2024 1:00 PM EST Clinical Support [facility] [address] [place] [address] Kira Bansal, MEREDITH documented as of this encounter Visit Diagnoses Diagnosis Mixed anxiety and depressive disorder Dysthymic disorder documented in this encounter Additional Health Concerns Assessment Noted Time PHQ-9 Depression Total Score: 13 023 3:27 PM EDT documented as of this encounter Care Teams Fisher Quahog Relationship Specialty Start Date End Date Marc Nicolas AGNP PCP - General Family Medicine 10/22/22 04/20/23 [place] [address] PCP - General Family Medicine 04/21/23 04/25/24 [place] [address] PCP - General Family Medicine 04/26/24 Colby Hirsch FNP [address] [place] [address] Nurse Practitioner Family Medicine 07/13/23 Candice Ugarte Senior Reliability EngineerSolution Spec 12/27/23 documented as of this encounter
--- OUTSIDE RECORDS SUMMARY | 2024-10-10 16:42 | XMS_ITS | Encounter Summary ---
Author Organization [employer] Address [address] [facility] 7t [place] [address] Care Team Providers Care Eyelet Machine Operator Name Role Phone Radha Shah CNC MACHINE OPERATOR Primary Care Provider [phone] Colby Hirsch Unavailable Unavailable [facility] Primary Care Provider [phone] Encounter Details Date Type Department Care Team (Late st Contact Info) Description 02/17/2024 Community Care Management [facility] MED[facility] [address] [place] [address] Radha Shah FNP [address] [place] [address] Social History Tobacco Use Types Packs/Day Years [...] Description 10/12/2024 2:00 PM EST Office Visit [facility] ADULT DENTAL [address] [place] [address] Phillip Borrego, MYA [address] [place] [address] 10/23/2024 1:00 PM EST Office Visit [facility] [address] [place] [address] Yecenia Frias FNP [address] [place] [address] 10/24/2024 1:00 PM EST Clinical Support [facility] [address] [place] [address] Kira Bansal RN documented as of this encounter Visit Diagnoses Not on filedocumented in this encounter Additional Health Concerns Assessment Noted Time PHQ-9 Depression Total Score: 6 12/28/19 24 11:17 AM EDT documented as of this encounter Care Teams Eyelet Machine Operator Relationship Specialty Start Date End Date Radha Shah FNP [address] [place] [address] PCP - General Family Medicine 04/21/23 04/25/24 Yecenia Frias FNP [address] [place] [address], [place] [address] PCP - General Family Medicine 04/26/24 Colby Hirsch FNP [address] [place] [address] Nurse Practitioner Family Medicine 07/13/23 Candice Ugarte Estimator And DrafterWater Tender 12/27/23 documented as of this encounter
--- OUTSIDE RECORDS SUMMARY | 2024-10-10 16:42 | XMS_ITS | Encounter Summary ---
Author Organization [employer] Address [address] [facility] 7t [place] [address] Care Team Providers Care Tabulating Machine Mechanic Name Role Phone Radha Shah RAILROAD DISPATCHER Primary Care Provider [phone] Colby Hirsch RAILROAD DISPATCHER Unavailable Unavailable [facility] RAILROAD DISPATCHER Primary Care Provider [phone] Reason for Visit * Reason Comments Med Refill Encounter Details Date Type Department Care Team (Late st Contact Info) Description 06/16/2023 Refill [facility] [address] [place] [address] Marc Nioclas AGNP Pain Social History Tobacco Use Types [...] 10/12/2024 2:00 PM EST Office Visit [facility] ADULT DENTAL [address] [place] [address] Phillip Borrego, MYA [address] [place] [address] 10/23/2024 1:00 PM EST Office Visit [facility] [address] [place] [address] [address] 10/24/2024 1:00 PM EST Clinical Support [address] [address] Kira Bansal RN documented as of this encounter Visit Diagnoses Diagnosis Pain Generalized pain documented in this encounter Additional Health Concerns Assessment Noted Time PHQ-9 Depression Total Score: 6 06/15/20 23 10:23 AM EDT documented as of this encounter Care Teams Tabulating Machine Mechanic Relationship Specialty Start Date End Date Radha Shah FNP [address] [place] [address] PCP - General Family Medicine 04/21/23 04/25/24 [place] [facility] [address] [place] [address] PCP - General Family Medicine 04/26/24 Colby Hirsch FNP [address] [place] [address] Nurse Practitioner Family Medicine 07/13/23 Candice Ugarte Buckshot Swage OperatorDesign Engineering Technician 12/27/23 documented as of this encounter
--- OUTSIDE RECORDS SUMMARY | 2024-10-10 16:42 | XMS_ITS | Encounter Summary ---
Author Organization [employer] Address [address] [facility] 7t [place] [address] Care Team Providers Care Weight And Balance Control Agent Name Role Phone Marc Nicolas Primary Care Provider Unavail able Radha Shah UNDERWRITER SOLICITATION DIRECTOR Primary Care Provider [phone] Colby Hirsch Unavailable Unavailable [facility] UNDERWRITER SOLICITATION DIRECTOR Primary Care Provider [phone] Reason for Visit * Reason Onset Date Comments Med Refill 03/08/2023 Encounter Details Date Type Department Care Team (Late st Contact Info) Description 03/08/2023 Refill [facility] [address] [place] [address] Marc Nicolas AGNP Mixed anxiety and depressive [...] with others, in a hotel, in a prison, living outside on the street, on a [...] 03/10/2023 5:33 PM EDT I will discuss CLINICAL INFORMATICS DIRECTOR cancellations with patient at next appointment on 04/02 * Telephone Encounter - Romeo Child - 03/09/2023 1:10 PM EDT Tc from pt requesting if medication will be ready for Wednesday due to refill date being Wednesday03/14/2023. Pt states that Pharmacy advised that due on due date landing weekend there able to give scripton Wednesday03/12/2023. Please contact pt to clarify at [phone] Polish Speaker * Telephone Encounter - Kira Bansal RN - 03/08/2023 11:06 AM EDT Clonazepam refill request too early, Rx not due until 03/14/23. Pt has cancelled last 3 CLINICAL INFORMATICS DIRECTOR appts, now scheduled 03/17/23. Will send request [...] 10/12/2024 2:00 PM EST Office Visit [facility] ADULT DENTAL [address] [place] [address] Phillip Borrego, DMD [address] [place] [address] 10/23/2024 1:00 PM EST Office Visit [facility] MEDICINE [address] [place] [phone] Yecenia Frias [facility] [address] [place] [address] 10/24/2024 1:00 PM EST Clinical Support [address] [address] Kira Bansal, MEREDITH documented as of this encounter Visit Diagnoses Diagnosis Mixed anxiety and depressive disorder Dysthymic disorder documented in this encounter Additional Health Concerns Assessment Noted Time PHQ-9 Depression Total Score: 13 023 3:27 PM EDT documented as of this encounter Care Teams Weight And Balance Control Agent Relationship Specialty Start Date End Date Marc Nicolas AGNP PCP - General Family Medicine 10/22/22 04/20/23 Radha Shah FNP [address] [place] [phone] PCP - General Family Medicine 04/21/23 04/25/24 Yecenia Frias FNP [address] [place] [phone] PCP - General Family Medicine 04/26/24 Colby Hirsch FNP [address] [place] [phone] Nurse Practitioner Family Medicine 07/13/23 Candice Ugarte Import/Export Freight ForwarderFishing Lure Assembler 12/27/23 documented as of this encounter
--- OUTSIDE RECORDS SUMMARY | 2024-10-10 16:42 | XMS_ITS | Encounter Summary ---
Author Organization [employer] Address 75 [facility] 7t [place] [address] Care Team Providers Care Tuck Pointer Helper Name Role Phone Colby Hirsch HOME CARE COORDINATOR Unavailable Unavailable [facility] HOME CARE COORDINATOR Primary Care Provider [phone] Reason for Referral * Consultation (Routine) - Authorized Specialty Diagnoses / Procedures Referred By Aminta t Referred To Contact Pulmonary Disease Diagnoses Shortness of breath Debbie Madera NP [address] [place] [address] Phone: tel: fax: [facility] Pulmonary [address] Floor [place], [place] Phone: tel: fax: Referral ID Status Reason Start Date Expiration Date Visits Requested Visits Authorized [id number] Authorized Specialty Services Required 09/25/2024 09/25/2025 6 6 Encounter Details Date Type Department Care Team (Late st Contact Info) Description 09/25/2024 2:00 PM EST Office Visit [facility] [address] [place] [address] Debbie Madera NP [address] [place], [place] [phone] Chest pain, atypical (Primary Dx); Obstructive sleep [...] Index - - documented in this encounter Progress Notes * Erin Frank RN - 09/25/2024 2:00 PM EST Pt presents to walk in center with complaint of head ache and chest pain was brought back to be triaged. Patient reports headache on left side and front of head last apx 1 hour leaves and comes back,. Pt also reported chest pain across entire chest,pain in both arms, shortness of breath when walking, States eye was closed shut this morning and experienced blurred vision with floaters. Pt states that the chest pain, arm pain, headache have been going on sicne Aug 29, 2024. She states that she hasbeen waiting for her new glasses and thinks because she doesn't have her glasses at this time 1-2 month wait. Subjective: Sacha Rodriguez is a 43 y.o. female who presents to the office for a sick visit. HPI Chest pain x 2 days. Stays for awhile as long as days, then goes away, when walks gets worse, feeling sob when walking as well, When takes motrin it helps, Dizziness when walking, some exertional sob Non smoker, No fh of heart disease Left sided headace No uri symptoms- reports constant GERD symptoms for which pt takes omeprazole Reports cardiac work up for these symptoms within the year and was told no her heart Does have asthma, reports taking and tolerating inhalers Recently dx with sleep apnea, has upcoming visit for mask Lab Results Component Value Date HGBA1C 5.4 07/24/2024 Glucose to day 78 Does endorse benefit from inhaler for these symptoms Patient Active Problem List Diagnosis COVID-19 Essential hypertension Chronic abdominal pain Fatty stool Food insecurity Gastroesophageal reflux disease History of right oophorectomy History of total hysterectomy Insomnia Migraines Depression with anxiety Mood disorder (CMS/HCC) Multiple joint pain Nonalcoholic steatohepatitis Palpitations Type 2 diabetes mellitus (CMS/HCC) Varicose veins of lower extremity Vitamin A deficiency Lump of skin of left upper extremity Major depression with psychotic features (CMS/HCC) Schizoaffective disorder, depressive type (CMS/HCC) Night terror Abdominal wall anomaly Hearing loss of right ear Elevated blood pressure reading Asthma Back pain Fatty liver Left ovarian cyst Obesity Opioid dependence (CMS/HCC) Urinary frequency Venous insufficiency (chronic) (peripheral) RUQ pain Urinary tract infection symptoms Vaginal itching Candidiasis Microscopic hematuria Chest pain, atypical Sleep apnea Shortness of breath Review of Systems Constitutional: Negative for activity change and appetite change. Respiratory: Positive for chest tightness and shortness of breath. Negative for apnea, cough and wheezing. Cardiovascular: Positive for chest pain. Negative for palpitations and leg swelling. Neurological: Positive for headaches. Allergies Allergen Reactions Pineapple Anaphylaxis Diphenhydramine Unknown Seafood [Shellfish Allergy] Unknown Tomato Morphine Palpitations and Unknown Quetiapine Palpitations Other reaction(s): numbing of hands, Unknown Trazodone Palpitations and Unknown Other reaction(s): severe anxiety Objective: Visit Vitals BP 116/81 (BP Location: Left arm, Patient Position: Sitting, BP Cuff Size: Adult) Pulse 105 Temp 97.3 ??F (36.3 ??C) (Temporal) SpO2 98% OB Status Hysterectomy Smoking Status Never Physical Exam Vitals reviewed. Constitutional: Appearance: She is obese. HENT: Head: Normocephalic and atraumatic. Nose: Nose normal. Eyes: Conjunctiva/sclera: Conjunctivae normal. Cardiovascular: Rate and Rhythm: Normal rate and regular rhythm. Heart sounds: Normal heart sounds. Pulmonary: Effort: Pulmonary effort is normal. Breath sounds: Normal breath sounds. Musculoskeletal: Cervical back: Normal range of motion and neck supple. Neurological: General: No focal deficit present. Mental Status: She is alert. Assessment/Plan: Problem List Items Addressed This Visit Gastroesophageal reflux disease Relevant Medications famotidine (Pepcid) 20 MG tablet Asthma Current Assessment & Plan Encouraged ongoing use of inhalers Referral to pulmonary for sob despite no adventitious breath sounds Chest pain, atypical - Primary Current Assessment & Plan Pt reports comprehensive cardiac work up for these symptoms, denies any increase or change since that work up Does endorse chest burning which may be attributed to asthma vs gerd Add famotidine bid Return to clinic for worsening symptoms Pt aware that if chest pain acutely worsens to call 911 Sleep apnea Shortness of breath Relevant Orders Referral to Pulmonology TSH W/Reflex to FT4 (Completed) CBC auto differential (Completed) Comprehensive Metabolic Panel (Completed) Current Outpatient Medications Medication Sig Dispense Refill [...] - 6 hours as needed prn wheezing/dyspnea atorvastatin (Lipitor) 40 MG tablet Take 1 tablet by mouth Once daily. beta carotene (vitamin A) 3 MG (68823 UT) capsule TAKE 1 CAPSULE BY MOUTH EVERY MORNING 90 capsule 1 Bisacodyl EC 5 MG EC tablet TAKE 1 TABLET BY MOUTH EVERY DAY NEEDED FOR CONSTIPATION. DO NOT BREAK, CRUSH, DISSOLVE OR CHEW. 30 tablet 0 Blood Glucose Monitoring Suppl ([employer] w/Device kit 1 Device 2 times daily. [...] needed for mild pain. 90 tablet 3 insulin pen needle (UltiGuard SafePack Pen Needle) [...] DIRECTED omeprazole (PriLOSEC) [address] capsule Take 1 capsule (40 mg) by mouth before breakfast. Do not crush or chew. 90 capsule 3 polyethylene glycol, PEG, 3350 (Glycolax) 17 GM/SCOOP [...] 1 (one) time per week.2 mL 3 traMADol (Ultram) 50 MG tablet Take 1 tablet (50 mg) by mouth every 12 (twelve) hours if needed forsevere pain for up to 28 days. Do not start before September 05, 2024. 56 tablet 0 No current facility-administered medications for this visit. Visit Conducted in: [employer] Translation by: [email or web address] [id number] documented in this encounter Miscellaneous Notes * Assessment & Plan Note - Debbie Madera NP - 09/25/2024 6:36 PM ESTAssociated Problem(s): Chest pain, atypical Pt reports comprehensive cardiac work up for these symptoms, denies any increase or change since that work up Does endorse chest burning which may be attributed to asthma vs gerd Add famotidine bid Return to clinic for worsening symptoms Pt aware that if chest pain acutely worsens to call 911 * Assessment & Plan Note - Debbie Madera NP - 09/25/2024 6:34 PM ESTAssociated Problem(s): Asthma Encouraged ongoing use of inhalers Referral to pulmonary for sob despite no adventitious breath sounds documented in this encounter Plan of Treatment Upcoming Encounters Date Type Department Care Team (Late st Contact Info) Description 10/12/2024 2:00 PM EST Office Visit [facility] [address] [place] [address] Phillip Borrego, DMD [address] [place] [address] 10/23/2024 1:00 PM EST Office Visit [facility] [address] [place] [address] Orgas, Yecenia, HOME CARE COORDINATOR [address] [place] [address] 10/24/2024 1:00 PM EST Clinical Support [address] [address] Kira Bansal, MEREDITH Scheduled Referrals Name Type Priority Associated Diagnoses Order Schedule Referral to Pulmonology Outpatient Referral Routine Shortness of breath Expected: 09/25/2024 (Approximate), Expires: 09/25/2025 documented as of this encounter Procedures Procedure Name Priority Date/Time Associated Diagnosis Comments TSH W/REFLEX TO FT4 Routine 09/25/2024 1 :22 PM EST Shortness of breath CBC WITH AUTO DIFFERENTIAL Routine 09/25/2024 1:22 PM EST Shortness of breath COMPREHENSIVE METABOLIC PANEL Routine 09/25/2024 1:22 PM EST Shortness of breath documented in this encounter Results * (ABNORMAL) Comprehensive Metabolic Panel (09/25/2024 1:22 PM EST) Sodium 140 135 - 145 mmol/L [facility] Potassium 3.9 3.3 - 5.1 mmol/L [facility] Chloride 110(H) 96 - 108 mmol/L [facility] Carbon Dioxide 24 22 - 29 mmol/L [facility] Anion Gap 10(L) 12 - 20 [facility] Urea Nitrogen (BUN) 8(L) 9 - 16 mg/dL [facility] Creatinine, Serum 0.65 0.5 - 1.4 mg/dL [facility] Estimated Glomerular Filt Rate >60 [facility] Comment:Chronic Kidney Disea se: Estimated GFR < 60 mL/min/[id number] Kidney Disease: Estimated GFR < 15 mL/min/1.73m2 Glucose 92 60 - 115 mg/dL [facility] Calcium 9.2 8.4 - 10.2 mg/dL [facility] Bilirubin, Total 0.5 0.0 - 1.0 mg/dL [facility] Aspartate Amino Transferase 29 5 - 31 U/L [facility] Alanine Aminotransferase 15 0 - 31 U/L [facility] Total Protein 8.0 6.5 - 8.0 g/dL [facility] Albumin Level 4.2 3.5 - 5.0 g/dL [facility] Alkaline Phosphatase 110 39 - 117 U/L [facility] Blood Venous blood specimen / Unknown 09/25/2024 1:22 PM EST 09/25/2024 4:00 PM EST us Debbie Jnsuman CARDIAC SONOGRAPHER LAB BLOOD ORDERABLES Final Resul t [facility] [address] [place] [address] [phone] * CBC auto differential (09/25/2024 1:22 PM EST) White Blood Count 7.7 4.8 - 10.8 X10*3/uL [facility] Red Blood Count 4.60 4.20 - 5.50 X10*6/uL [facility] Hemoglobin 12.9 12.0 - 16.0 g/dl [facility] Hematocrit 39.4 37.0 - 47.0 % [facility] Mean Corpuscular Volume 85.7 80.0 - 98.0 fL [facility] Mean Corpuscular Hemoglobin 28.0 27.0 - 33.0 pg [facility] Mean Corpuscular HGB Conc 32.7 31.0 - 35.0 g/dl [facility] Red Cell Distribution Width 12.9 11.0 - 16.0 % [facility] Platelet Count 252 160 - 400 X10*3/uL [facility] Mean Platelet Volume 11.1 9.4 - 12.3 fL [facility] Neutrophils Percent Auto 58.7 45 - 73 % [facility] Imm Gran Pct Auto 0.4 0.0 - 0.4 % [facility] Lymphocytes Percent Auto 32.7 20 - 40 % [facility] Monocytes Percent Auto 6.2 2 - 11 % [facility] Eosinophils Percent Auto 1.7 0 - 4 % [facility] Basophils Percent Auto 0.3 0 - 2 % [facility] NRBC Pct Auto 0.0 0.0 - 0.2 /100WBC [facility] Neutrophils Absolute Auto 4.5 2.0 - 8.3 x10*3/uL [facility] Imm Gran Abs Auto 0.03 0.00 - 0.03 X10*3/uL [facility] Lymphocytes Absolute Auto 2.5 1.2 - 4.9 X10*3/uL [facility] Monocytes Absolute Auto 0.5 0.1 - 1.2 X10*3/uL [facility] Eosinophils Absolute Auto 0.1 0.0 - 0.4 X10*3/uL [facility] Basophils Absolute Auto 0.0 0.0 - 0.2 X10*3/uL [facility] NRBC Abs Auto 0.000 0.0 - 0.012 X10*3/uL [facility] Blood Venous blood specimen / Unknown 09/25/2024 1:22 PM EST 09/25/2024 4:00 PM EST us Debbie Madera CARDIAC SONOGRAPHER LAB BLOOD ORDERABLES Final Resul t Performing Organization Address [facility] Co de Phone Number [facility] [address] [place] [phone] * TSH W/Reflex to FT4 (09/25/2024 1:22 PM EST) TSH reflex Free T4 1.57 0.32 - 4.0 uIU/mL [facility] Blood Venous blood specimen / Unknown 09/25/2024 1:22 PM EST 09/25/2024 4:00 PM EST us Debbie Madera CARDIAC SONOGRAPHER LAB BLOOD ORDERABLES Final Resul t Performing Organization Address [facility] Co de Phone Number [facility] [address] [place] [phone] documented in this encounter Visit Diagnoses Diagnosis Chest pain, atypical- Primary Obstructive sleep apnea syndrome Obstructive sleep apnea (adult) (pediatric) Mild intermittent asthma, unspecified whether complicated Shortness of breath Gastroesophageal reflux disease with esophagitis without hemorrhage documented in this encounter Additional Health Concerns Assessment Noted Time PHQ-9 Depression Total Score: 7 03/07/20 24 10:13 AM EDT documented as of this encounter Care Teams Tuck Pointer Helper Relationship Specialty Start Date End Date Yecenia Frias FNP [address] [place] [phone] PCP - General Family Medicine 04/26/24 Colby Hirsch FNP Nurse Practitioner Family Medicine 07/13/23 Candice Ugarte Outreach Team MemberBindery Cutter Operator 12/27/23 documented as of this encounter
--- OUTSIDE RECORDS SUMMARY | 2024-10-10 16:42 | XMS_ITS | Encounter Summary ---
Author Organization [employer] Address [address] [facility] 7t [place] [address] Care Team Providers Care Historical Archeologist Name Role Phone Colby Hirsch CAMPAIGN CONSULTANT Unavailable Unavailable [facility] CAMPAIGN CONSULTANT Primary Care Provider [phone] Encounter Details Date Type Department Care Team (Late st Contact Info) Description 09/25/2024 Orders Only GENERIC EXTERNAL DATA DEPARTMENT Provider, Generic External Data Social History Tobacco Use Types Packs/Day Years [...] PM EST Office Visit [facility] ADULT DENTAL [address] [place], [place] [phone] Phillip Borrego, DMD [address] [place] [address] 10/23/2024 1:00 PM EST Office Visit [facility] MEDICINE [address] [place] [address] Altagracia, Yecenia, CAMPAIGN CONSULTANT [address] [place] [address] 10/24/2024 1:00 PM EST Clinical Support [facility] MED[facility] [address] [place] [phone] Kira Bansal RN documented as of this encounter Procedures Procedure Name Priority Date/Time Associated Diagnosis Comments LIPID PANEL, STANDARD Routine 09/25/2024 1:22 PM EST documented in this encounter Results * (ABNORMAL) Lipid Panel, Standard (09/25/2024 1:22 PM EST) Triglycerides 109 <150 mg/dL [facility] Comment:Desirable Triglyceri de: less than 150 mg/dLBorderline High Triglyceride 150-199 mg/dLHigh Triglyceride: 200-499 mg/dLVery High Triglyceride: greater than or equal to 5OO mg/dL Cholesterol 128 <200 mg/dL [facility] Comment:Desirable Cholestero l: less than 200 mg/dLBorderline High Cholesterol: 200-239 mg/dLHigh Cholesterol: greater than 239 mg/dL LDL Cholesterol Calculated 71 <100 mg/dL [facility] Comment:Desirable LDL: less than 100 mg/dLNear Optimal/Above Optimal LDL: 110- 129 mg/dLBorderline High LDL: 130-159 mg/dLHigh LDL: 160-189 mg/dLVery High LDL: greater than or equal to 190 mg/dL HDL Cholesterol 36(L) >40 mg/dL [facility] Comment:Desirable HDL: great er than 40 mg/dL Note: This HDL assay may give artificially low results in patients with liver disease. 09/25/2024 1:22 PM EST 09/25/2024 4:00 PM EST us Generic External Data Provider LAB BLOOD ORDERAB LES Final Result Performing Organization Address City/State/[facility] Co de Phone Number [facility] [address] [place] [phone] documented in this encounter Visit Diagnoses Not on filedocumented in this encounter Additional Health Concerns Assessment Noted Time PHQ-9 Depression Total Score: 7 03/07/20 24 10:13 AM EDT documented as of this encounter Care Teams Historical Archeologist Relationship Specialty Start Date End Date Yecenia Frias FNP [address] [place] [phone] PCP - General Family Medicine 04/26/24 Colby Hirsch FNP Nurse Practitioner Family Medicine 07/13/23 Candice Ugarte Stone HandCertified Personal Chef 12/27/23 documented as of this encounter
--- OUTSIDE RECORDS SUMMARY | 2024-10-10 16:42 | XMS_ITS | Encounter Summary ---
Author Organization [employer] Address [address] [facility] [address] [place] [address] Care Team Providers Care Drug Worker Name Role Phone Colby Hirsch BUSINESS MANAGEMENT ASSOCIATE Unavailable Unavailable [facility] Primary Care Provider Reason for Visit * Reason Onset Date Comments Med Refill 09/29/2024 Encounter Details Date Type Department Care Team ([facility] st Contact Info) Description 09/29/2024 Telephone [facility] [address] [place], [place] [phone] [facility] [address] [place] [address] Med Refill Social History Tobacco Use Types [...] Telephone Encounter - Kira Bansal RN - 09/29/2024 11:59 AM EST Per Odette, Tramadol last picked up up 09/14/24. Refill not due until 10/12/24. Will forward to PCP on 10/10/24. * Telephone Encounter - Laina Hobbs - 09/29/2024 11:55 AM EST TC from pt requesting medication refill. Medications needing refill : traMADol (Ultram) 50 MG tablet To be sent to: [facility] documented in this encounter Plan of Treatment Upcoming Encounters Date Type Department Care Team (Late st Contact Info) Description 10/12/2024 2:00 PM EST Office Visit [facility] [address] [place] [address] Phillip Borrego, DMD [address] [place] [address] 10/23/2024 1:00 PM EST Office Visit [address] [address] Yecenia Frias FNP [address] [place] [address] 10/24/2024 1:00 PM EST Clinical Support [address] [address] Kira Bansal RN documented as of this encounter Visit Diagnoses Not on filedocumented in this encounter Additional Health Concerns Assessment Noted Time PHQ-9 Depression Total Score: 7 03/07/20 24 10:13 AM EDT documented as of this encounter Care Teams Drug Worker Relationship Specialty Start Date End Date Yecenia Frias FNP [address] [place] [phone] PCP - General Family Medicine 04/26/24 Colby Hirsch FNP Nurse Practitioner Family Medicine 07/13/23 Candice Ugarte Vessel EngineerPediatric Speech Therapist 12/27/23 documented as of this encounter
--- OUTSIDE RECORDS SUMMARY | 2024-10-10 16:42 | XMS_ITS | Encounter Summary ---
Author Organization [employer] Address 75 [facility] 7t [place] [address] Care Team Providers Care Transportation Superintendent Name Role Phone Pablo Radha FNP Primary Care Provider [phone] Colby Hirsch Unavailable Unavailable [facility] Primary Care Provider [phone] Reason for Visit * Reason Comments Med Refill Encounter Details Date Type Department Care Team (Late st Contact Info) Description 01/04/2024 Refill [facility] [address] [place] [address] Colby Hirsch FNP Social History Tobacco Use [...] Description 10/12/2024 2:00 PM EST Office Visit [facility] [address] [place] [address] Phillip Borrego, DMD [address] [place] [address] 10/23/2024 1:00 PM EST Office Visit [facility] [address] [place] [address] LillingtonYecenia [facility] 230 [place] [address] 10/24/2024 1:00 PM EST Clinical Support [address] [address] Kira Bansal RN documented as of this encounter Visit Diagnoses Not on filedocumented in this encounter Additional Health Concerns Assessment Noted Time PHQ-9 Depression Total Score: 6 12/28/19 24 11:17 AM EDT documented as of this encounter Care Teams Transportation Superintendent Relationship Specialty Start Date End Date Radha Shah FNP [address] [place] [address] PCP - General Family Medicine 04/21/23 04/25/24 AltagraciaYecenia whipple FNP [address] [place] [address] PCP - General Family Medicine 04/26/24 Colby Hirsch FNP [address] [place] [address] Nurse Practitioner Family Medicine 07/13/23 Candice Ugarte Installer Molding And TrimConstruction Lineman 12/27/23 documented as of this encounter
--- OUTSIDE RECORDS SUMMARY | 2024-10-10 16:42 | XMS_ITS | Encounter Summary ---
Author Organization [employer] Address 75 [facility] 7t [place] [address] Care Team Providers Care First Assist Name Role Phone Radha Shah MERCHANDISE PLANNING MANAGER Primary Care Provider [phone] Colby Hirsch Unavailable Unavailable [facility] Primary Care Provider [phone] Reason for Visit * Reason Comments Med Refill Encounter Details Date Type Department Care Team (Late st Contact Info) Description 02/16/2024 Refill [facility] [address] [place] [address] Radha Shah FNP [address] [place] [address] Multiple joint pain Social History Tobacco Use [...] Description 10/12/2024 2:00 PM EST Office Visit [facility] ADULT DENT[facility] [address] [place] [address] Phillip Borrego, MYA [address] [place] [address] 10/23/2024 1:00 PM EST Office Visit [facility] [address] [place] [address] Yecenia Frias FNP 230 [place] [address] 10/24/2024 1:00 PM EST Clinical Support [facility] [address] [place] [address] Kira Bansal, MEREDITH documented as of this encounter Visit Diagnoses Diagnosis Multiple joint pain Pain in joint, multiple sites documented in this encounter Additional Health Concerns Assessment Noted Time PHQ-9 Depression Total Score: 6 12/28/19 24 11:17 AM EDT documented as of this encounter Care Teams First Assist Relationship Specialty Start Date End Date Radha Shah FNP [address] [place] [address] PCP - General Family Medicine 04/21/23 04/25/24 Yecenia Frias FNP 230 [place] [address] PCP - General Family Medicine 04/26/24 Colby Hirsch FNP [address] [place] [address] Nurse Practitioner Family Medicine 07/13/23 Candice Ugarte Greenhouse WorkerDoor Puller 12/27/23 documented as of this encounter
--- OUTSIDE RECORDS SUMMARY | 2024-10-10 16:42 | XMS_ITS | Encounter Summary ---
Author Organization [employer] Address 75 [facility] 7t [place] [address] Care Team Providers Care Incident Response Consultant Name Role Phone Marc Nicolas Primary Care Provider Unavail able Radha Shah YEAST MAKER Primary Care Provider [phone] Colby Hirsch Unavailable Unavailable [facility] YEAST MAKER Primary Care Provider [phone] Reason for Visit * Reason Comments Med Refill Encounter Details Date Type Department Care Team (Late Contact Info) Description 04/07/2023 Refill [facility]EDS [address] [place] [address] Marc Nicolas AGNP Multiple joint pain Social [...] Visit [facility] ADULT DENTAL [address] [place], [place] [phone] Phillip Borrego, MYA 230 [place], [place] [phone] 10/23/2024 1:00 PM EST Office Visit [facility] [place] [address] HaywardYecenia [place] [address] 10/24/2024 1:00 PM EST Clinical Support [address] [address] Kira Bansal, MEREDITH documented as of this encounter Visit Diagnoses Diagnosis Multiple joint pain Pain in joint, multiple sites documented in this encounter Additional Health Concerns Assessment Noted Time PHQ-9 Depression Total Score: 0 04/02/20 2:10 PM EDT documented as of this encounter Care Teams Incident Response Consultant Relationship Specialty Start Date End Date Marc Nicolas AGNP PCP - General Family Medicine 10/22/22 04/20/23 Radha Shah FNP [address] [place] [address] PCP - General Family Medicine 04/21/23 04/25/24 HaywardYecenia whipple FNP [address] [place] [address] PCP - General Family Medicine 04/26/24 Colby Hirsch FNP [address] [place] [address] Nurse Practitioner Family Medicine 07/13/23 Candice Ugarte Design Engineer ProductsChildren'S Choir Director 12/27/23 documented as of this encounter
--- OUTSIDE RECORDS SUMMARY | 2024-10-10 16:42 | XMS_ITS | Encounter Summary ---
Author Organization [employer] Address 75 [facility] 7 [place] [address] Care Team Providers Care Flash Drier Operator Name Role Phone Colby Hirsch BEAMER OPERATOR Unavailable Unavailable [facility] Primary Care Provider [phone] Reason for Visit * Reason Onset Date Comments Follow up call 08/11/2024 Encounter Details Date Type Department Care Team ([facility] Contact Info) Description 08/11/2024 Telephone [facility] MEDICINE [address] [place], [place] [phone] [facility] 230 [place] [address] Follow up call Social History Tobacco Use [...] 10/12/2024 2:00 PM EST Office Visit [facility] ADULT DENTAL [address] [place] [address] Phillip Borrego, DMD [address] [place] [address] 10/23/2024 1:00 PM EST Office Visit [facility] MEDICINE [address] [place] [address] Yecenia Frias, JACINTO [address] [place] [address] 10/24/2024 1:00 PM EST Clinical Support [address] [address] Kira Bansal, RN documented as of this encounter Visit Diagnoses Not on filedocumented in this encounter Additional Health Concerns Assessment Noted Time PHQ-9 Depression Total Score: 7 03/07/20 24 10:13 AM EDT documented as of this encounter Care Teams Flash Drier Operator Relationship Specialty Start Date End Date Yecenia Frias FNP [address] [place] [address] PCP - General Family Medicine 04/26/24 Colby Hirsch FNP Nurse Practitioner Family Medicine 07/13/23 Candice Ugarte Size StamperSenior Risk Analyst 12/27/23 documented as of this encounter
--- OUTSIDE RECORDS SUMMARY | 2024-10-10 16:42 | XMS_ITS | Encounter Summary ---
Author Organization [employer] Address 75 [facility] 7t [place] [address] Care Team Providers Care Speech And Hearing Clinic Director Name Role Phone Radha Shah TATTOO TECHNICIAN Primary Care Provider [phone] Colby Hirsch Unavailable Unavailable [facility] Primary Care Provider [phone] Reason for Visit * Reason Comments Med Refill Encounter Details Date Type Department Care Team (Late st Contact Info) Description 07/02/2023 Refill [facility] MED[facility] [address] [place] [address] aRdha Shah FNP [address] [place] [address] Multiple joint pain Social History Tobacco Use [...] Description 10/12/2024 2:00 PM EST Office Visit [facility] ADULT DENTAL [address] [place] [address] Phillip Borrego, MYA 230 [place] [address] 10/23/2024 1:00 PM EST Office Visit [facility] MEDICINE [address] [place] [address] Yecenia Frias FNP 230 [place] [address] 10/24/2024 1:00 PM EST Clinical Support [facility] MED[facility] [address] [place] [address] Kira Bansal, MEREDITH documented as of this encounter Visit Diagnoses Diagnosis Multiple joint pain Pain in joint, multiple sites documented in this encounter Additional Health Concerns Assessment Noted Time PHQ-9 Depression Total Score: 6 06/15/20 10:23 AM EDT documented as of this encounter Care Teams Speech And Hearing Clinic Director Relationship Specialty Start Date End Date Radha Shah FNP 230 [place] [address] PCP - General Family Medicine 04/21/23 04/25/24 Yecenia Frias FNP [address] [place] [address] PCP - General Family Medicine 04/26/24 Colby Hirsch FNP 230 [place] [address] Nurse Practitioner Family Medicine 07/13/23 Candice Ugarte Credit Office ManagerFood Service Aide 12/27/23 documented as of this encounter
--- OUTSIDE RECORDS SUMMARY | 2024-10-10 16:42 | XMS_ITS | Encounter Summary ---
Author Organization [employer] Address 75 [facility] 7t [place] [address] Care Team Providers Care Crusher And Blender Operator Name Role Phone Colby Hirsch NEPHROLOGIST Unavailable Unavailable [facility] Primary Care Provider [phone] Reason for Visit * Reason Onset Date Comments Nurse Triage 10/02/2024 Encounter Details Date Type Department Care Team ([facility] st Contact Info) Description 10/02/2024 Telephone [facility] MEDICINE [address] [place], [place] [phone] [facility] 230 [place] [address] Nurse Triage Social History Tobacco Use Types Packs/Day Years [...] with others, in a hotel, in a nursing home, living outside on the street, on [...] encounter Miscellaneous Notes * Telephone Encounter - Niurka Magallanes RN - 10/02/2024 12:29 PM EST Call returned to Sacha Rodriguez to triage below. 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 Reports having sx onset yesterday. Reports having Fever, Cough, Headache, Earache. Pt has not done homekit for COVID-19. Denies any n/v or diarrhea. Pt advised of disposition, agrees to sick on site with PCP today. Patient made aware that current acute concerns to be discussed at this sick visit. All other concerns related to chronic conditions to be discussed at next PCP follow up appointment. Protocol Used: COVID-19 - Diagnosed or Suspected (Adult) Protocol-Based Disposition: Home Care Override (Final) Disposition: See in Office or Video Visit Today or Tomorrow Override Reason: Caller refused suggested disposition Future Appointments Date Time Provider Department Center 10/02/2024 2:00 PM [facility] 10/12/2024 2:00 PM Phillip Borrego DMD ADLT DENT [facility] 10/23/2024 1:00 PM [facility] MEDICINE [facility] 10/24/2024 1:00 PM Kira Bansal RN MEDICINE [facility] Insurance verified as active per Real Time Eligibility in Epic. Positive Triage Question: * COVID-19 infection suspected and mild symptoms (cough, fever, or others) and has not gotten tested yet * All higher-acuity triage questions were negative Care Advice Discussed: * General Care Advice for COVID-19 Symptoms * Cough Medicines * Coughing Spells * Pain and Fever Medicines * Reasons To Call Back - Fever over 103 F (39.4 C) - Chest pain or difficulty breathing occurs - You become worse * Telephone Encounter - Hari Manan - 10/02/2024 12:24 PM EST Symptoms: Fever, Cough, Headache, Earache, Cold Sores Outcome: Transfer to a nurse or provider NOW! Reason: Sudden worst headache of life now The caller accepted this outcome. documented in this encounter Plan of Treatment Upcoming Encounters Date Type Department Care Team (Late st Contact Info) Description 10/12/2024 2:00 PM EST Office Visit [facility] ADULT DENTAL [address] [place] [address] Phillip Borrego, MYA [address] [place] [address] 10/23/2024 1:00 PM EST Office Visit [facility] MEDICINE [address] [place] [address] Yecenia Frias FNP 230 [place] [address] 10/24/2024 1:00 PM EST Clinical Support [address] [address] Kira Bansal RN documented as of this encounter Visit Diagnoses Not on filedocumented in this encounter Additional Health Concerns Assessment Noted Time PHQ-9 Depression Total Score: 7 03/07/20 24 10:13 AM EDT documented as of this encounter Care Teams Crusher And Blender Operator Relationship Specialty Start Date End Date Yecenia Frias FNP [address] [place] [address] PCP - General Family Medicine 04/26/24 Colby Hirsch FNP Nurse Practitioner Family Medicine 07/13/23 Candice Ugarte Clinical GeneticistRn Diabetes 12/27/23 documented as of this encounter
--- OUTSIDE RECORDS SUMMARY | 2024-10-10 16:42 | XMS_ITS | Encounter Summary ---
Author Organization [employer] Address 75 [facility] 7t [place] [address] Care Team Providers Care Linux Developer Name Role Phone Radha Shah PATCH WORKER Primary Care Provider [phone] Colby Hirsch PATCH WORKER Unavailable Unavailable [facility] PATCH WORKER Primary Care Provider [phone] Reason for Visit * Reason Comments Med Refill Encounter Details Date Type Department Care Team (Late st Contact Info) Description 06/28/2023 Refill [facility] CH[facility] MED & PEDS [address] [place] [address] Radha Shah FNP [address] [place] [address] Schizoaffective disorder, depressive type (CMS/HCC) Social History [...] 2:00 PM EST Office Visit [facility] ADULT DENTAL [address] [place] [address] Phillip Borrego, MYA [address] [place] [address] 10/23/2024 1:00 PM EST Office Visit [facility] MEDICINE [address] [place] [address] Yecenia Frias FNP 230 [place] [address] 10/24/2024 1:00 PM EST Clinical Support [facility] MEDICINE [address] [place] [address] Kira Bansal, MEREDITH documented as of this encounter Visit Diagnoses Diagnosis Schizoaffective disorder, depressive type (CMS/HCC) Schizoaffective disorder, unspecified condition documented in this encounter Additional Health Concerns Assessment Noted Time PHQ-9 Depression Total Score: 6 06/15/20 23 10:23 AM EDT documented as of this encounter Care Teams Linux Developer Relationship Specialty Start Date End Date Radha Shah FNP [address] [place] [address] PCP - General Family Medicine 04/21/23 04/25/24 HickmanYecenia whipple FNP [address] [place] [address] PCP - General Family Medicine 04/26/24 Colby Hirsch FNP [address] [place] [address] Nurse Practitioner Family Medicine 07/13/23 Candice Ugarte Senior Pensions AdministratorCafeteria Director 12/27/23 documented as of this encounter
--- OUTSIDE RECORDS SUMMARY | 2024-10-10 16:42 | XMS_ITS | Encounter Summary ---
Author Organization [employer] Address 75 [facility] 7t [place] [address] Care Team Providers Care Network Control Operators Supervisor Name Role Phone Radha Shah HVAC ESTIMATOR Primary Care Provider [phone] Colby Hirsch HVAC ESTIMATOR Unavailable Unavailable [facility] HVAC ESTIMATOR Primary Care Provider [phone] Reason for Visit * Reason Onset Date Comments Results 02/16/2024 Care Coordination 02/16/[address] Kelly joshua telephone call outreached Encounter Details Date Type Department Care Team ([facility] st Contact Info) Description 02/16/2024 Telephone [facility] MEDICINE [address] [place] [address] Radha Shah FNP [address] [place] [address] Results; Care Coordination ([id number] Obrien telephone call outreached) Social History Tobacco [...] time. ANGIE Ramos * Telephone Encounter - Lauar Adame RN - 02/16/2024 4:34 PM EDT Please review and advise for below request. Result is in pt's chart. * Telephone Encounter - Natividad Pate - 02/16/2024 3:47 PM EDT TC from pt requesting call back regarding Results. Type of results: labs Date when done: 02/06 Facility: [facility] Please contact pt at [phone] documented in this encounter Plan of Treatment Upcoming Encounters Date Type Department Care Team (Late st Contact Info) Description 10/12/2024 2:00 PM EST Office Visit [facility] ADULT DENTAL [address] [place] [address] Phillip Borrego, DMD [address] [place] [address] 10/23/2024 1:00 PM EST Office Visit [facility] MEDICINE [address] [place] [address] Yecenia Frias FNP 230 [place] [address] 10/24/2024 1:00 PM EST Clinical Support [address] [address] Kira Bansal, MEREDITH documented as of this encounter Visit Diagnoses Not on filedocumented in this encounter Additional Health Concerns Assessment Noted Time PHQ-9 Depression Total Score: 6 12/28/19 24 11:17 AM EDT documented as of this encounter Care Teams Network Control Operators Supervisor Relationship Specialty Start Date End Date Radha Shah FNP [address] [place] [address] PCP - General Family Medicine 04/21/23 04/25/24 Yecenia Frias FNP [address] [place] [address] PCP - General Family Medicine 04/26/24 Colby Hirsch FNP [address] [place] [address] Nurse Practitioner Family Medicine 07/13/23 Candice Ugarte Lumber ScalerAssurance Services Manager Health Care 12/27/23 documented as of this encounter
--- OUTSIDE RECORDS SUMMARY | 2024-10-10 16:42 | XMS_ITS | Encounter Summary ---
Author Organization [employer] Address 75 [facility] 7t [place] [address] Care Team Providers Care Diesel Service Apprentice Name Role Phone Radha Shah SPRAY PAINTER Primary Care Provider [phone] Colby Hirsch Unavailable Unavailable [facility] SPRAY PAINTER Primary Care Provider [phone] Encounter Details Date Type Department Care Team (Late st Contact Info) Description 03/08/2024 Orders Only [facility] CHC MED & PEDS [address] [place] [address] Radha Shah FNP [address] [place] [address] Social History Tobacco Use Types Packs/Day Years [...] 2:00 PM EST Office Visit [facility] ADULT DENTAL [address] [place] [address] Phillip Borrego, MYA [address] [place] [address] 10/23/2024 1:00 PM EST Office Visit [facility] MEDICINE [address] [place] [address] Yecenia Frias FNP [address] [place] [address] 10/24/2024 1:00 PM EST Clinical Support [facility] MEDICINE [address] [place] [address] Kira Bansal, MEREDITH documented as of this encounter Visit Diagnoses Not on filedocumented in this encounter Additional Health Concerns Assessment Noted Time PHQ-9 Depression Total Score: 7 03/07/20 24 10:13 AM EDT documented as of this encounter Care Teams Diesel Service Apprentice Relationship Specialty Start Date End Date Radha Shah FNP [address] [place] [address] PCP - General Family Medicine 04/21/23 04/25/24 Yecenia Frias FNP [address] [place] [address] PCP - General Family Medicine 04/26/24 Colby Hirsch FNP [address] [place] [address] Nurse Practitioner Family Medicine 07/13/23 Candice Ugarte Carton RepairerRisk Management Analyst 12/27/23 documented as of this encounter
--- OUTSIDE RECORDS SUMMARY | 2024-10-10 16:42 | XMS_ITS | Encounter Summary ---
Author Organization [employer] Address 75 [facility] 7t [place] [address] Care Team Providers Care Spa Associate Name Role Phone Radha Shah SYSTEM DESIGNER Primary Care Provider [phone] Colby Hirsch Unavailable Unavailable [facility] Primary Care Provider [phone] Reason for Visit * Reason Comments Med Refill Encounter Details Date Type Department Care Team (Late st Contact Info) Description 06/30/2023 Refill [facility] MEDICINE [address] [place] [address] Radha Shah FNP [address] [place] [address] Multiple joint pain Social History Tobacco Use [...] 2:00 PM EST Office Visit [facility] ADULT DENTAL [address] [place] [address] Phillip Borrego, MYA [address] [place] [address] 10/23/2024 1:00 PM EST Office Visit [facility] MEDICINE [address] [place] [address] Yecenia Frias FNP [address] [place] [address] 10/24/2024 1:00 PM EST Clinical Support [facility] MEDICINE [address] [place] [address] Kira Bansal, MEREDITH documented as of this encounter Visit Diagnoses Diagnosis Multiple joint pain Pain in joint, multiple sites documented in this encounter Additional Health Concerns Assessment Noted Time PHQ-9 Depression Total Score: 6 06/15/20 10:23 AM EDT documented as of this encounter Care Teams Spa Associate Relationship Specialty Start Date End Date Radha Shah FNP [address] [place] [address] PCP - General Family Medicine 04/21/23 04/25/24 Yecenia Frias FNP [address] [place] [address] PCP - General Family Medicine 04/26/24 Colby Hirsch FNP [address] [place] [address] Nurse Practitioner Family Medicine 07/13/23 Candice Ugarte Oil BurnerChip Mixer 12/27/23 documented as of this encounter
--- OUTSIDE RECORDS SUMMARY | 2024-10-10 16:42 | XMS_ITS | Encounter Summary ---
Author Organization [employer] Address 75 [facility] 7t [place] [address] Care Team Providers Care Natural Gas Plant Technician Name Role Phone Radha Shah BANQUET SET UP PERSON Primary Care Provider [phone] Colby Hirsch Unavailable Unavailable [facility] BANQUET SET UP PERSON Primary Care Provider Encounter Details Date Type Department Care Team (Late st Contact Info) Description 04/24/2024 Orders Only [facility] CH[facility] MED & PEDS [address] [place] [address] Radha Shah FNP [address] [place] [address] Elevated lipids (Primary Dx) Social History Tobacco [...] Description 10/12/2024 2:00 PM EST Office Visit [facility] ADULT DENTAL [address] [place] [address] Phillip Borrego, DMD [address] [place] [address] 10/23/2024 1:00 PM EST Office Visit [facility] MEDICINE [address] [place] [address] [place]bon, Yecenia, BANQUET SET UP PERSON [address] [place] [address] 10/24/2024 1:00 PM EST Clinical Support [facility] [address] [place] [address] Kira Bansal RN documented as of this encounter Procedures Procedure Name Priority Date/Time Associated Diagnosis Comments LIPID PANEL, STANDARD Routine 05/12/2024 11:00 AM EDT Elevated lipids documented in this encounter Results * (ABNORMAL) Lipid Panel, Standard (05/12/2024 11:00 AM EDT) Triglycerides 100 <150 mg/dL [facility] Comment:Desirable Triglyceri de: less than 150 mg/dLBorderline High Triglyceride 150-199 mg/dLHigh Triglyceride: 200-499 mg/dLVery High Triglyceride: greater than or equal to 5OO mg/dL Cholesterol 101 <200 mg/dL [facility] Comment:Desirable Cholestero l: less than 200 mg/dLBorderline High Cholesterol: 200-239 mg/dLHigh Cholesterol: greater than 239 mg/dL LDL Cholesterol Calculated 44 <100 mg/dL [facility] Comment:Desirable LDL: less than 100 mg/dLNear Optimal/Above Optimal LDL: 110- 129 mg/dLBorderline High LDL: 130-159 mg/dLHigh LDL: 160-189 mg/dLVery High LDL: greater than or equal to 190 mg/dL HDL Cholesterol 37(L) >40 mg/dL [facility] Comment:Desirable HDL: great er than 40 mg/dL Note: This HDL assay may give artificially low results in patients with liver disease. Blood Venous blood specimen / Unknown 05/12/2024 11:00 AM EDT 05/12/2024 11:00 AM EDT us Radha CASEY LAB BLOOD ORDERABLES Final Resu lt [facility] [address] [place] [address] [phone] documented in this encounter Visit Diagnoses Diagnosis Elevated lipids- Primary documented in this encounter Additional Health Concerns Assessment Noted Time PHQ-9 Depression Total Score: 7 03/07/20 24 10:13 AM EDT documented as of this encounter Care Teams Natural Gas Plant Technician Relationship Specialty Start Date End Date Radha Shah FNP [address] [place] [address] PCP - General Family Medicine 04/21/23 04/25/24 Yecenia Frias FNP [address] [place] [address] PCP - General Family Medicine 04/26/24 Colby Hirsch FNP [address] [place] [address] Nurse Practitioner Family Medicine 07/13/23 Candice Ugarte Music GrapherDisc Pad Grinder 12/27/23 documented as of this encounter
--- OUTSIDE RECORDS SUMMARY | 2024-10-10 16:42 | XMS_ITS | Encounter Summary ---
Author Organization [email or web address] Address 75 [facility] 7t [place] [address] Care Team Providers Care Gate Agent Name Role Phone Colby Hirsch BLADE ALIGNER Unavailable Unavailable [facility] BLADE ALIGNER Primary Care Provider [phone] Encounter Details Date Type Department Care Team [...] t he electric, gas, oil or water [employer] threatened to shut off services in your [...] Description 10/12/2024 2:00 PM EST Office Visit [facility] ADULT DENTAL [address] [place] [address] Phillip Borrego, DMD [address] [place] [address] 10/23/2024 1:00 PM EST Office Visit [facility] MEDICINE [address] [place] [address] Yecenia Frias FNP [address] [place] [address] 10/24/2024 1:00 PM EST Clinical Support [address] [address] Kira Bansal RN documented as of this encounter Visit Diagnoses Not on filedocumented in this encounter Additional Health Concerns Assessment Noted Time PHQ-9 Depression Total Score: 7 03/07/20 24 10:13 AM EDT documented as of this encounter Care Teams Gate Agent Relationship Specialty Start Date End Date Yecenia Frias FNP [address] [place] [address] PCP - General Family Medicine 04/26/24 Colby Hirsch FNP Nurse Practitioner Family Medicine 07/13/23 Candice Ugarte Charting ClerkPhotographic Equipment Mechanic 12/27/23 documented as of this encounter
--- OUTSIDE RECORDS SUMMARY | 2024-10-10 16:42 | XMS_ITS | Encounter Summary ---
Author Organization [employer] Address 75 [facility] 7t [place] [address] Care Team Providers Care Nuclear Medicine Tech Name Role Phone Colby Hirsch MACHINE MARKER Unavailable Unavailable [facility] Primary Care Provider [phone] Encounter Details Date Type Department Care Team ([facility] st Contact Info) Description 08/11/2024 Telephone [facility] MEDICINE [address] [place] [address] [facility] [address] [place] [address] Social History Tobacco Use Types Packs/Day Years [...] Description 10/12/2024 2:00 PM EST Office Visit [facility] ADULT DENTAL [address] [place] [address] Phillip Borrego, DMD [address] [place] [address] 10/23/2024 1:00 PM EST Office Visit [facility] MEDICINE [address] [place] [address] PlacedoYecenia [facility] [address] [place] [address] 10/24/2024 1:00 PM EST Clinical Support [facility] MEDICINE [address] [place] [address] Kira Bansal RN documented as of this encounter Visit Diagnoses Not on filedocumented in this encounter Additional Health Concerns Assessment Noted Time PHQ-9 Depression Total Score: 7 03/07/20 24 10:13 AM EDT documented as of this encounter Care Teams Nuclear Medicine Tech Relationship Specialty Start Date End Date Yecenia Frias [facility] [address] [place] [address] PCP - General Family Medicine 04/26/24 Colby Hirsch FNP Nurse Practitioner Family Medicine 07/13/23 Candice Ugarte Addressing Machine OperatorGear Lapper 12/27/23 documented as of this encounter
--- OUTSIDE RECORDS SUMMARY | 2024-10-10 16:42 | XMS_ITS | Encounter Summary ---
Author Organization [employer] Address 75 [facility] 7t [place] [address] Care Team Providers Care Professor Of Theatre Name Role Phone Colby Hirsch CROSSBOW MAKER Unavailable Unavailable [facility] Primary Care Provider [phone] Reason for Visit * Reason Onset Date Comments FYI 06/23/2024 Encounter Details Date Type Department Care Team ([facility] Contact Info) Description 06/23/2024 Telephone [facility] MEDICINE [address] [place], [place] [phone] [facility] [address] [place] [address] FYI Social History Tobacco Use Types Packs/Day [...] 9:36 AM EDT Tc from Maribel at [facility] calling inform provider pt cancelled appointment with did not want to r/s. If any questions contact Maribel at [phone] documented in this encounter Plan of Treatment Upcoming Encounters Date Type Department Care Team (Late st Contact Info) Description 10/12/2024 2:00 PM EST Office Visit [facility] ADULT DENTAL [address] [place] [address] Phillip Borrego, MYA [address] [place] [address] 10/23/2024 1:00 PM EST Office Visit [facility] MEDICINE [address] [place] [address] Yecenia Frias FNP [address] [place] [address] 10/24/2024 1:00 PM EST Clinical Support [facility] MEDICINE [address] [place] [address] Kira Bansal, RN documented as of this encounter Visit Diagnoses Not on filedocumented in this encounter Additional Health Concerns Assessment Noted Time PHQ-9 Depression Total Score: 7 03/07/20 24 10:13 AM EDT documented as of this encounter Care Teams Professor Of Theatre Relationship Specialty Start Date End Date Yecenia Frias FNP [address] [place] [address] PCP - General Family Medicine 04/26/24 Colby Hirsch FNP Nurse Practitioner Family Medicine 07/13/23 Candice Ugarte Sql Report DeveloperSenior Publications Specialist 12/27/23 documented as of this encounter
--- OUTSIDE RECORDS SUMMARY | 2024-10-10 16:42 | XMS_ITS | Encounter Summary ---
Author Organization [employer] Address 75 [facility] 7t [place] [address] Care Team Providers Care Crowd Controller Name Role Phone Marc Nicolas Primary Care Provider Unavail able Radha Shah Primary Care Provider [phone] Colby Hirsch Unavailable Unavailable [facility] PACKAGE SEALER Primary Care Provider [phone] Reason for Visit * Reason Onset Date Comments Med Refill 03/10/2023 Encounter Details Date Type Department Care Team ([facility] Contact Info) Description 03/10/2023 Telephone [facility] MEDICINE [address] [place] [address] Marc Nicolas AGNP Med Refill Social History [...] Description 10/12/2024 2:00 PM EST Office Visit [facility] ADULT DENTAL [address] [place] [address] SalimaPhillip, DMD [address] [place] [address] 10/23/2024 1:00 PM EST Office Visit [facility] [address] [facility] [place] [address] [facility] [address] [place] [address] 10/24/2024 1:00 PM EST Clinical Support [facility] [address] [place] [address] Kira Bansal, MEREDITH documented as of this encounter Visit Diagnoses Not on filedocumented in this encounter Additional Health Concerns Assessment Noted Time PHQ-9 Depression Total Score: 13 023 3:27 PM EDT documented as of this encounter Care Teams Crowd Controller Relationship Specialty Start Date End Date Marc Nicolas AGNP PCP - General Family Medicine 10/22/22 04/20/23 [place] [address] PCP - General Family Medicine 04/21/23 04/25/24 [place] [address] PCP - General Family Medicine 04/26/24 Colby Hirsch FNP [address] [place] [address] Nurse Practitioner Family Medicine 07/13/23 Candice Ugarte Asset Card ClerkComputer Equipment Repairer 12/27/23 documented as of this encounter
--- OUTSIDE RECORDS SUMMARY | 2024-10-10 16:42 | XMS_ITS | Encounter Summary ---
Author Organization [employer] Address 75 [facility] 7t [place] [address] Care Team Providers Care Contracting Engineer Name Role Phone Colby Hirsch CUTTER GRIND TOOL TECHNICIAN Unavailable Unavailable [facility] CUTTER GRIND TOOL TECHNICIAN Primary Care Provider Reason for Visit * Reason Comments Med Refill Encounter Details Date Type Department Care Team (Late st Contact Info) Description 09/25/2024 Refill [facility] CHC MED & PEDS [address] [place] [address] Radha Shah FNP [address] [place] [address] Social History Tobacco Use Types Packs/Day Years [...] with others, in a hotel, in a assisted, living outside on the street, on a [...] Description 10/12/2024 2:00 PM EST Office Visit [facility] ADULT DENTAL [address] [place] [address] Phillip Borrego, DMD [address] [place] [address] 10/23/2024 1:00 PM EST Office Visit [facility] MEDICINE [address] [place] [address] Yecenia Frias FNP [address] [place] [address] 10/24/2024 1:00 PM EST Clinical Support [facility] MEDICINE [address] [place] [address] Kira Bansal RN documented as of this encounter Visit Diagnoses Not on filedocumented in this encounter Additional Health Concerns Assessment Noted Time PHQ-9 Depression Total Score: 7 03/07/20 24 10:13 AM EDT documented as of this encounter Care Teams Contracting Engineer Relationship Specialty Start Date End Date Yecenia Frias FNP [address] [place] [address] PCP - General Family Medicine 04/26/24 Colby Hirsch FNP Nurse Practitioner Family Medicine 07/13/23 Candice Ugarte Pigment PusherNeedle Valve Operator 12/27/23 documented as of this encounter
--- OUTSIDE RECORDS SUMMARY | 2024-10-10 16:42 | XMS_ITS | Encounter Summary ---
Author Organization [employer] Address 75 [facility] 7t [place] [address] Care Team Providers Care Piano Machine Operator Name Role Phone Marc Nicolas Primary Care Provider Unavail able Radha Shah RURAL MAIL CARRIER Primary Care Provider [phone] Colby Hirsch Unavailable Unavailable [facility] RURAL MAIL CARRIER Primary Care Provider Reason for Visit * Reason Comments Med Refill Encounter Details Date Type Department Care Team (Late st Contact Info) Description 03/10/2023 Refill [facility] [address] [place] [address] Marc Nicolas AGNP Mixed anxiety and depressive [...] Will send to PCP on 03/18/23. Has MANAGER BRAND scheduled 03/17/23. * Telephone Encounter - Chika Low - 03/15/2023 9:14 AM EDT Tc from patient requesting a med refill for medication tramadol [address] Nicolas documented in this encounter Plan of Treatment Upcoming Encounters Date Type Department Care Team (Late st Contact Info) Description 10/12/2024 2:00 PM EST Office Visit [facility] ADULT DENTAL [address] [place] [address] Phillip Borrego, DMD [address] [place] [address] 10/23/2024 1:00 PM EST Office Visit [facility] MEDICINE [address] [place] [address] Yecenia Frias FNP [address] [place] [address] 10/24/2024 1:00 PM EST Clinical Support [address] [address] Kira Bansal RN documented as of this encounter Visit Diagnoses Diagnosis Mixed anxiety and depressive disorder Dysthymic disorder Multiple joint pain Pain in joint, multiple sites documented in this encounter Additional Health Concerns Assessment Noted Time PHQ-9 Depression Total Score: 13 023 3:27 PM EDT documented as of this encounter Care Teams Piano Machine Operator Relationship Specialty Start Date End Date Marc Nicolas AGNP PCP - General Family Medicine 10/22/22 04/20/23 Radha Shah FNP [address] [place] [address] PCP - General Family Medicine 04/21/23 04/25/24 [place]ayette[place]enia FNP [address] [place] [address] PCP - General Family Medicine 04/26/24 Colby Hirsch FNP [address] [place] [address] Nurse Practitioner Family Medicine 07/13/23 Candice Ugarte Market SpecialistTherapist Rrt 12/27/23 documented as of this encounter
--- OUTSIDE RECORDS SUMMARY | 2024-10-10 16:42 | XMS_ITS | Encounter Summary ---
Author Organization [employer] Address 75 [facility] 7t [place] [address] Care Team Providers Care Sawmill Equipment Operator Name Role Phone Colby Hirsch TOOL BUILDER Unavailable Unavailable [facility] TOOL BUILDER Primary Care Provider [phone] Encounter Details Date Type Department Care Team (Late st Contact Info) Description 09/26/2024 Telephone [facility] MEDICINE [address] [place], [place] [phone] Amy Almanza, MEREDITH Social History Tobacco Use Types Packs/Day Years [...] with others, in a hotel, in a senior care, living outside on the street, on a [...] Telephone Encounter - Amy Almanza RN - 09/26/2024 10:34 AM EST Tc to pt via s id: [id number] to let them know per PCP Please let pt know her labs were normal thank you pt verbalized understanding, reports they were seen at [facility] yesterday and reports their eye is swollen. Pt reports they have just been putting a damp cloth on their eye. Reviewed last ov note, nothing was documented regarding eye concerns advised pt to come to [facility] to be evaluated again. Ptverbalized understanding and no further questions or concerns at this time. * Telephone Encounter - Amy Almanza RN - 09/26/2024 10:29 AM EST ----- Message from Debbie Madera sent at 09/25/2024 7:19 PM EST ----- Please let pt know her labs were normal thank you ----- Message ----- From: Interface, Lab Results In Sent: 09/25/2024 4:08 PM EST To: Debbie Madera NP documented in this encounter Plan of Treatment Upcoming Encounters Date Type Department Care Team (Late st Contact Info) Description 10/12/2024 2:00 PM EST Office Visit [facility] ADULT DENTAL [address] [place] [address] Phillip Borrego, DMD [address] [place] [address] 10/23/2024 1:00 PM EST Office Visit [facility] [address] [place] [address] Yecenia Frias FNP [address] [place] [address] 10/24/2024 1:00 PM EST Clinical Support [facility] [address] [place], [place] [phone] Kira Bansal RN documented as of this encounter Visit Diagnoses Not on filedocumented in this encounter Additional Health Concerns Assessment Noted Time PHQ-9 Depression Total Score: 7 03/07/20 24 10:13 AM EDT documented as of this encounter Care Teams Sawmill Equipment Operator Relationship Specialty Start Date End Date Yecenia Frias FNP [address] [place] [address] PCP - General Family Medicine 04/26/24 Colby Hirsch FNP Nurse Practitioner Family Medicine 07/13/23 Candice Ugarte Dip Unit OperatorClient Relationship Manager 12/27/23 documented as of this encounter
--- OUTSIDE RECORDS SUMMARY | 2024-10-10 16:42 | XMS_ITS | Encounter Summary ---
Author Organization [employer] Address 75 [facility] 7t [place] [address] Care Team Providers Care Business Office Specialist Name Role Phone Radha Shah Primary Care Provider [phone] Colby Hirsch Unavailable [facility] Primary Care Provider [phone] Reason for Referral * Consultation (Routine) - Closed Specialty Diagnoses / Procedures Referred By Aminta anderson Referred To Contact Diagnoses Routine adult health maintenance Radha Shah FNP [address] [place] [address] Phone: tel: fax: [address] [address] Phone: tel: fax: Referral ID Status Reason Start Date Expiration Date V isits Requested Visits Authorized [id number] Closed Specialty Services Required 02/16/2024 02/15/2025 1 1 Encounter Details Date Type Department Care Team (Late st Contact Info) Description 02/16/2024 Orders Only [facility] CHC MED & PEDS [address] [place] [address] Radha Shah FNP [address] [place] [address] Routine adult health maintenance (Primary Dx) Social [...] Description 10/12/2024 2:00 PM EST Office Visit [facility] ADULT DENTAL [address] [place] [address] Phillip Borrego, MYA [address] [place] [address] 10/23/2024 1:00 PM EST Office Visit [facility] MEDICINE [address] [place] [address] AtticaYecenia whipple, POULTRY BARN MANAGER [address] [place] [address] 10/24/2024 1:00 PM EST Clinical Support [facility] MEDICINE [address] [place] [address] Kira Bansal RN Scheduled Referrals Name Type [...] as of this encounter Care Teams Business Office Specialist Relationship Specialty Start Date End Date Radha Shah FNP [address] [place] [address] PCP - General Family Medicine 04/21/23 04/25/24 Yecenia Frias FNP [address] [place] [address] PCP - General Family Medicine 04/26/24 Colby Hirsch FNP [address] [place] [address] Nurse Practitioner Family Medicine 07/13/23 Candice Ugarte Certified Hyperbaric TechnologistPublic Health Policy Analyst 12/27/23 documented as of this encounter
--- OUTSIDE RECORDS SUMMARY | 2024-10-10 16:42 | XMS_ITS | Encounter Summary ---
Author Organization [employer] Address 75 [facility] 7t [place] [address] Care Team Providers Care Iron Handler Name Role Phone Cobly Hirsch COSMETIC SALES CONSULTANT Unavailable Unavailable [facility] Primary Care Provider [phone] Encounter Details Date Type Department Care Team (Late st Contact Info) Description 10/02/2024 2:00 PM EST Office Visit [facility] MEDICINE [address] [place] [address] [facility] [address] [place] [address] Viral upper respiratory illness (Primary Dx) Social History Tobacco Use Types [...] Sign Reading Time Taken Comments Blood Pressure 135/85 10/02/2024 1:40 PM EST Pulse 88 10/02/2024 1:40 PM EST Temperature 36.4 ??C (97.5 ??F) 10/02/2024 1:40 PM ES T Respiratory Rate 17 10/02/2024 1:40 PM EST Oxygen Saturation - - Inhaled Oxygen Concentration - - Weight 81.7 kg (180 lb 3.2 oz) 10/02/2024 1:40 P M EST Height 152.4 cm (5') 10/02/2024 1:40 PM EST Body Mass Index 35.19 10/02/2024 1:40 PM EST documented in this encounter Progress Notes * [facility], COSMETIC SALES CONSULTANT - 10/02/2024 2:00 PM EST SUBJECTIVE: Sacha Rodriguez is a 43 y.o. female who presents for URI evaluation HPI Chills, fever, myalgia, headache, mild cough, No ST. No known sick contacts. Sx x 1 days Tolerating liquid PO intake well Patient Active Problem List Diagnosis COVID-19 Essential [...] pain, atypical Sleep apnea Shortness of breath Cellulitis of face Review of Systems Constitutional: Positive for fatigue and fever. HENT: Positive for congestion, rhinorrhea and sore throat. Negative for ear pain. Eyes: Negative for visual disturbance. Respiratory: Positive for cough. Negative for chest tightness, shortness of breath and wheezing. Cardiovascular: Negative for chest pain and palpitations. Gastrointestinal: Negative for abdominal pain, diarrhea, nausea and vomiting. Genitourinary: Negative for decreased urine volume. Musculoskeletal: Positive for myalgias. Skin: Negative for rash. Neurological: Positive for headaches. Negative for dizziness and weakness. OBJECTIVE: Visit Vitals BP 135/85 (BP Location: Right arm, Patient Position: Sitting, BP Cuff Size: Adult) Pulse 88 Temp 97.5 ??F (36.4 ??C) (Oral) Resp 17 Ht 5' (1.524 m) Wt 180 lb 3.2 oz (81.7 kg) BMI 35.19 kg/m?? OB Status Hysterectomy Smoking Status Never BSA 1.86 m?? Physical Exam Constitutional: General: She is not in acute distress. Appearance: Normal appearance. HENT: Right Ear: Tympanic membrane, ear canal and external ear normal. Left Ear: Tympanic membrane, ear canal and external ear normal. Nose: Congestion and rhinorrhea present. Mouth/Throat: Pharynx: Posterior oropharyngeal erythema present. No oropharyngeal exudate. Eyes: Conjunctiva/sclera: Conjunctivae normal. Cardiovascular: Rate and Rhythm: Normal rate and regular rhythm. Heart sounds: Normal heart sounds. Pulmonary: Effort: Pulmonary effort is normal. Breath sounds: Normal breath sounds. Skin: General: Skin is warm and dry. Neurological: General: No focal deficit present. Mental Status: She is alert and oriented to person, place, and time. Psychiatric: Mood and Affect: Mood normal. Behavior: Behavior normal. ASSESSMENT: Viral Upper Respiratory Infection Rapid flu/covid negative in office PLAN: - Patient is stable with no evidence of respiratory distress - Home supportive measures advised including: increased fluids, honey, tylenol/ibuprofen per instructions for pain/fever, nasal saline spray, cool mist humidifier. -Significant nasal congestion is most bothersome symptom--advised okay to use nasal decongestant spray short-term only and monitor blood pressure during use - Contact HC if sx worsen or do not improve within 7-10 days Follow-up 1 month for routine care 1. Viral upper respiratory illness (Primary) - oxymetazoline (Afrin Nasal Barnard) 0.05 % nasal spray; Administer 2 sprays into each nostril every12 (twelve) hours if needed for congestion for up to 2 days. Do not use for more than 3 days. Dispense: 30 mL; Refill: 0 - ibuprofen 600 MG tablet; Take 1 tablet (600 mg) by mouth every 6 (six) hours if needed for mild pain. Dispense: 30 tablet; Refill: 1 - POCT Rapid Covid-19 BinaxNOW - POCT Rapid Influenza B OSOM - POCT Rapid Influenza A OSOM Current Outpatient Medications: acetaminophen (Tylenol 8 Hour) 650 MG ER tablet, TAKE 1 TABLET BY MOUTH EVERY 6 HOURS NEEDED, Disp: 60 tablet, Rfl: 1 albuterol (2.5 MG/3ML) 0.083% nebulizer solution, inhale 3 milliliter by nebulization route 3 timesevery day prn wheezing/dyspnea, Disp: , Rfl: albuterol 108 (90 Base) MCG/ACT inhaler, inhale 2 puff by inhalation route every 4 - 6 hours as needed prn wheezing/dyspnea, Disp: , Rfl: Alcohol Swabs (Alcohol Prep) 70 % pads, USE 1 FOUR TIMES DAILY DIRECTED, Disp: 200 each, Rfl: 11 atorvastatin (Lipitor) 40 MG tablet, Take 1 tablet by mouth Once daily., Disp: , Rfl: beta carotene (vitamin A) 3 MG (78908 UT) capsule, TAKE 1 CAPSULE BY MOUTH EVERY MORNING, Disp: 90 capsule, Rfl: 1 Bisacodyl EC 5 MG EC tablet, TAKE 1 TABLET BY MOUTH EVERY DAY NEEDED FOR CONSTIPATION. DO NOT BREAK, CRUSH, DISSOLVE OR CHEW., Disp: 30 tablet, Rfl: 0 Blood Glucose Monitoring Suppl (FreeStyle Lite) w/Device kit, 1 Device 2 times daily., Disp: 1 kit,Rfl: 0 Blood Pressure kit, 1 kit 2 times daily., Disp: 1 kit, Rfl: 0 budesonide-formoterol (Symbicort) 80-4.5 MCG/ACT inhaler, Inhale 2 puffs every 4-6 hours as needed for wheezing, shortness of breath, Disp: 1 each, Rfl: 11 cephalexin (Keflex) 500 MG capsule, Take 1 capsule (500 mg) by mouth 3 times daily for 7 days., Disp: 21 capsule, Rfl: 0 cetirizine (ZyrTEC) 10 MG tablet, TAKE 1 TABLET BY MOUTH EVERY MORNING, Disp: 90 tablet, Rfl: 1 clotrimazole (Lotrimin) 1 % vaginal cream, Insert one applicator per vagina at bedtime for 7 nights, Disp: 45 g, Rfl: 0 D3 Super Strength 50 MCG (2000 UT) capsule, TAKE 1 CAPSULE BY MOUTH DAILY IN THE MORNING, Disp: 90 capsule, Rfl: 3 Diclofenac Sodium 1 % gel, Apply once a day on the affected hand, Disp: 100 g, Rfl: 1 docusate sodium (Colace) 100 MG capsule, TAKE 1 CAPSULE BY MOUTH TWICE DAILY, Disp: 180 capsule, Rfl: 1 famotidine (Pepcid) 20 MG tablet, Take 1 tablet (20 mg) by mouth 2 times daily., Disp: 60 tablet, Rfl: 11 fluticasone (Flonase) 50 MCG/ACT nasal spray, USE 1-2 SPRAYS IN EACH NOSTRIL IN THE MORNING SHAKE GENTLY, Disp: 48 g, Rfl: 0 glucose blood test strip, 1 each by Other route 2 times daily., Disp: 100 each, Rfl: 12 ibuprofen 600 MG tablet, Take 1 tablet (600 mg) by mouth every 8 (eight) hours if needed for mild pain., Disp: 90 tablet, Rfl: 3 insulin pen needle (UltiGuard SafePack Pen Needle) 29G x 12.7mm misc, Use as instructed, Disp: 100 each, Rfl: 12 Lancets (Unilet Micro-Thin 33G) misc, USE FOUR TIMES DAILY TO TEST BLOOD SUGAR, Disp: , Rfl: loperamide (Imodium A-D) 2 MG tablet, 1 tab PO q4h prn diarrhea, Disp: , Rfl: magnesium 200 MG tablet, Take 1 tablet via oral route daily., Disp: , Rfl: metFORMIN XR (Glucophage-XR) 500 MG 24 hr tablet, TAKE 1 TABLET BY MOUTH EVERY DAY WITH DINNER, Disp: 90 tablet, Rfl: 1 mirtazapine (Remeron) 7.5 MG tablet, Take 1 tablet (7.5 mg) by mouth at bedtime., Disp: 30 tablet, Rfl: 1 Misc. Devices (Pulse Oximeter For Finger) misc, -Check pulse and oxygen daily and prn, Disp: , Rfl: naloxone (Narcan) 4 mg/0.1 mL nasal spray, Administer 1 spray (4 mg) into affected nostril(s) if needed for opioid reversal. May repeat every 2-3 minutes if needed, alternating nostrils, until medical assistance becomes available., Disp: 2 each, Rfl: 0 naloxone (Narcan) 4 mg/0.1 mL nasal spray, FOR SUSPECTED OPIOID OVERDOSE. SPRAY 0.1mL IN ONE NOSTRIL. REPEAT IN ALTERNATE NOSTRIL 2-3 MINUTES IF NEEDED. SEEK MEDICAL ATTENTION IMMEDIATELY EVEN IF PATIENT RESPONDS., Disp: 2 each, Rfl: 1 Novofine Pen Needle 32G X 6 MM misc, USE ONCE DAILY DIRECTED, Disp: , Rfl: omeprazole (PriLOSEC) [address] capsule, Take 1 capsule (40 mg) by mouth before breakfast. Do not crush or chew., Disp: 90 capsule, Rfl: 3 polyethylene glycol, PEG, 3350 (Glycolax) 17 GM/SCOOP powder, take (17G) by oral route every day mixed with 8 oz. water, juice, soda, coffee or tea, Disp: , Rfl: pyridoxine (Vitamin B-6) 100 MG tablet, Take 1 tablet by mouth in the morning., Disp: , Rfl: riboflavin (Vitamin B-2) 400 MG tablet, Take 1 tablet via oral route daily, Disp: , Rfl: risperiDONE (RisperDAL) 2 MG tablet, Take 1 tablet (2 mg) by mouth at bedtime., Disp: 30 tablet, Rfl: 1 SUMAtriptan (Imitrex) 50 MG tablet, Take 1 tablet by mouth., Disp: , Rfl: Tirzepatide 2.5 MG/0.5ML solution auto-injector, Inject 2.5 mg under the skin 1 (one) time per week., Disp: 2 mL, Rfl: 3 traMADol (Ultram) 50 MG tablet, Take 1 tablet (50 mg) by mouth every 12 (twelve) hours if needed for severe pain for up to 28 days. Do not start before September 05, 2024., Disp: 56 tablet, Rfl: 0 Czech Translation: Provided by [facility] staff member REMINGTON documented in this encounter Plan of Treatment Upcoming Encounters Date Type Department Care Team (Late st Contact Info) Description 10/12/2024 2:00 PM EST Office Visit [facility] ADULT DENTAL [address] [place] [address] Phillip Borrego, DMD [address] [place] [address] 10/23/2024 1:00 PM EST Office Visit [facility] MEDICINE [address] [place] [address] Yecenia Frias FNP [address] [place] [address] 10/24/2024 1:00 PM EST Clinical Support [address] [address] Kira Bansal RN documented as of this encounter Procedures Procedure Name Priority Date/Time Associated Diagnosis Comments POCT RAPID COVID ANTIGEN Routine 10/02/2024 2:44 PM EST Viral upper respiratory illness POCT INFLUENZA B Routine 10/02/2024 2:44 PM EST Viral upper respiratory illness POCT INFLUENZA A Routine 10/02/2024 2:44 PM EST Viral upper respiratory illness documented in this encounter Results * POCT Rapid Influenza A OSOM (10/02/2024 2:44 PM EST) Pathologist [facility] Rapid Influenza A Ag Negative Negative, Indeterminate Swab Nasopharyngeal structure / Unknown 10/02/2024 2:44 PM EST Result [facility] POINT OF CARE TEST ENTER/EDIT ORDERABLES Final Result * POCT Rapid Influenza B OSOM (10/02/2024 2:44 PM EST) [facility] Rapid Influenza B Ag Negative Negative, Indeterminate Swab 10/02/2024 2:44 PM EST Result [facility] POINT OF CARE TEST ENTER/EDIT ORDERABLES Final Result * POCT Rapid Covid-19 BinaxNOW (10/02/2024 2:44 PM EST) [facility] Rapid COVID Ag Negative Swab 10/02/2024 2:44 PM EST Result [facility] POINT OF CARE TEST ENTER/EDIT ORDERABLES Final Result documented in this encounter Visit Diagnoses Diagnosis Viral upper respiratory illness- Primary documented in this encounter Additional Health Concerns Assessment Noted Time PHQ-9 Depression Total Score: 7 03/07/20 24 10:13 AM EDT documented as of this encounter Care Teams Iron Handler Relationship Specialty Start Date End Date [facility] [address] [place] [address] PCP - General Family Medicine 04/26/24 Colby Hirsch FNP Nurse Practitioner Family Medicine 07/13/23 Candice Ugarte Otr Truck DriverInspector Semiconductor Wafer 12/27/23 documented as of this encounter
--- OUTSIDE RECORDS SUMMARY | 2024-10-10 16:42 | XMS_ITS | Encounter Summary ---
Author Organization [employer] Address 75 [facility] 7t [place] [address] Care Team Providers Care Labor Delivery Specialist Name Role Phone Colby Hirsch AUTOMATIC BOW MAKER MACHINE TENDER Unavailable Unavailable [facility] Primary Care Provider [phone] Reason for Visit * Reason Comments Med Refill Encounter Details Date Type Department Care Team (Late st Contact Info) Description 10/01/2024 Refill [facility] MEDICINE [address] [place] [address] Radha Shah FNP [address] [place] [address] Social History Tobacco Use Types Packs/Day Years [...] with others, in a hotel, in a retirement, living outside on the street, on a [...] Visit [facility] ADULT DENTAL [address] [place] [address] Phillip Borrego, MYA [address] [place] [address] 10/23/2024 1:00 PM EST Office Visit [facility] MEDICINE [address] [place] [address] Yecenia Frias FNP [address] [place] [address] 10/24/2024 1:00 PM EST Clinical Support [facility] MEDICINE [address] [place] [address] Kira Bansal RN documented as of this encounter Visit Diagnoses Not on filedocumented in this encounter Additional Health Concerns Assessment Noted Time PHQ-9 Depression Total Score: 7 03/07/20 24 10:13 AM EDT documented as of this encounter Care Teams Labor Delivery Specialist Relationship Specialty Start Date End Date Yecenia Frias FNP [address] [place] [address] PCP - General Family Medicine 04/26/24 Colby Hirsch FNP Nurse Practitioner Family Medicine 07/13/23 Candice Ugarte Global [employer] Vice PresidentBankruptcy Attorney 12/27/23 documented as of this encounter
--- OUTSIDE RECORDS SUMMARY | 2024-10-10 16:42 | XMS_ITS ---
Author Organization [facility] Address [address] [place] [address] Care Team Providers Care Plumbing Drafter Name Role Phone Radha Rodriguez Primary Care Provider Unavaila Jaylan Alaniz Unavailable [phone] REASON FOR VISIT Patient presents today for FATTY LIVER Encounters Encounter Location Date Provider Diagnosis [facility] [address] [place] [address] 06/20/2024 Jaylan Neal PLAN OF TREATMENT No Information
--- OUTSIDE RECORDS SUMMARY | 2024-10-10 16:42 | XMS_ITS | Encounter Summary ---
Author Organization [employer] Address 75 [facility] 7t [place] [address] Care Team Providers Care Typecasting Machine Operator Name Role Phone Colby Hirsch DAY TREATMENT CLINICIAN/ART THERAPIST Unavailable Unavailable [facility] DAY TREATMENT CLINICIAN/ART THERAPIST Primary Care Provider [phone] Encounter Details Date Type Department Care Team (Latest Contact Info) Description 10/02/2024 Travel Social History Tobacco Use Types Packs/Day [...] t he electric, gas, oil or water [employer] threatened to shut off services in your [...] Description 10/12/2024 2:00 PM EST Office Visit [facility] ADULT DENTAL [address] [place] [address] Phillip Borrego, DMD [address] [place] [address] 10/23/2024 1:00 PM EST Office Visit [facility] MEDICINE [address] [place] [address] Yecenia Frias FNP [address] [place] [address] 10/24/2024 1:00 PM EST Clinical Support [address] [address] Kira Bansal RN documented as of this encounter Visit Diagnoses Not on filedocumented in this encounter Additional Health Concerns Assessment Noted Time PHQ-9 Depression Total Score: 7 03/07/20 24 10:13 AM EDT documented as of this encounter Care Teams Typecasting Machine Operator Relationship Specialty Start Date End Date Yecenia Frias FNP [address] [place] [address] PCP - General Family Medicine 04/26/24 Colby Hirsch FNP Nurse Practitioner Family Medicine 07/13/23 Candice Ugarte Shop TailorPaper Mill Manager 12/27/23 documented as of this encounter
--- OUTSIDE RECORDS SUMMARY | 2024-10-10 16:42 | XMS_ITS | Encounter Summary ---
Author Organization [employer] Address 75 [facility] 7t [place] [address] Care Team Providers Care Reptile Farmer Name Role Phone Colby Hirsch QUALITY CONTROL LEAD Unavailable Unavailable [facility] QUALITY CONTROL LEAD Primary Care Provider [phone] Encounter Details Date Type Department Care Team (Late st Contact Info) Description 09/26/2024 5:00 PM EST Office Visit [facility] [address] [place] [address] Quin Victoria MD [address] [place] [address] Cellulitis of face (Primary Dx); Hordeolum externum of left lower eyelid Social History Tobacco Use Types Packs/Day Years [...] Sign Reading Time Taken Comments Blood Pressure 123/78 09/26/2024 4:46 PM EST Pulse 76 09/26/2024 4:46 PM EST Temperature 37.2 ??C (99 ??F) 09/26/2024 4:46 PM EST Respiratory Rate 18 09/26/2024 4:46 PM EST Oxygen Saturation 98% 09/26/2024 4:46 PM EST Inhaled Oxygen Concentration - - Weight 81.3 kg (179 lb 2 oz) 09/26/2024 4:46 PM EST Height 154.9 cm (5' 1 ) 09/26/2024 4:46 PM EST Body Mass Index 33.85 09/26/2024 4:46 PM EST documented in this encounter Progress Notes * Quin Victoria MD - 09/26/2024 5:00 PM EST Images from the original note were not included. Subjective History was provided by the patient. Sacha Rodriguez is a 43 y.o. female who presents for evaluation of redness and itchiness to theleft eye . Onset of symptoms was gradual starting 2 days ago, with worsening since that time. Thereis no discharge present. There is not a history trauma to the eye. There is not a history of foreign body getting into eye. The patient is not a contact lens wearer. Additional symptoms include new tenderness and mild redness under left eye . Associated negative symptoms include cough, fever, runny nose, congestion, sick contacts, and sinus pain. Evaluation to date: none. Treatment to date: none Objective Vitals: 09/26/24 1646 BP: 123/78 BP Location: Right arm Patient Position: Sitting BP Cuff Size: Adult Pulse: 76 Resp: 18 Temp: 99 ??F (37.2 ??C) TempSrc: Oral SpO2: 98% Weight: 179 lb 2 oz (81.3 kg) Height: 5' 1 (1.549 m) Physical Exam Eyes: Comments: Left eye with lower stye and mild tenderness and redness in fat bad below left eye Problem List Items Addressed This Visit Cellulitis of face - Primary Symptoms likely due to stye but cannot rule out early cellulitis given redness and tenderness in fat pad. Will prescribe cephalexin tid for 7 days started 09/25/24. Continue warm compress. Strict ER precautions discussed. Relevant Medications cephalexin (Keflex) 500 MG capsule Other Visit Diagnoses Hordeolum externum of left lower eyelid -prescribedwarm compress -droplet precautions and hygiene discussed -seek medical attention for worsening symptoms -do not use contacts or makeup for one week ove as anticipated. documented in this encounter Miscellaneous Notes * Assessment & Plan Note - Quin Victoria MD - 09/26/2024 5:22 PM EST Associated Problem(s): Cellulitis of face Symptoms likely due to stye but cannot rule out early cellulitis given redness and tenderness in fat pad. Will prescribe cephalexin tid for 7 days started 09/25/24. Continue warm compress. Strict ER precautions discussed. documented in this encounter Plan of Treatment Upcoming Encounters Date Type Department Care Team (Late st Contact Info) Description 10/12/2024 2:00 PM EST Office Visit [facility] ADULT DENTAL [address] [place] [address] Phillip Borrego, DMD [address] [place] [address] 10/23/2024 1:00 PM EST Office Visit [facility] [address] [place] [address] Yecenia Frias FNP [address] [place] [address] 10/24/2024 1:00 PM EST Clinical Support [facility] [address] [place] [address] Kira Bansal RN documented as of this encounter Visit Diagnoses Diagnosis Cellulitis of face- Primary Cellulitis and abscess of face Hordeolum externum of left lower eyelid documented in this encounter Additional Health Concerns Assessment Noted Time PHQ-9 Depression Total Score: 7 03/07/20 24 10:13 AM EDT documented as of this encounter Care Teams Reptile Farmer Relationship Specialty Start Date End Date Yecenai Frias FNP [address] [place] [address] PCP - General Family Medicine 04/26/24 Colby Hirsch FNP Nurse Practitioner Family Medicine 07/13/23 Candice Ugarte Technology Solutions ArchitectHelpdesk Administrator 12/27/23 documented as of this encounter
--- OUTSIDE RECORDS SUMMARY | 2024-10-10 16:42 | XMS_ITS | Encounter Summary ---
Author Organization [employer] Address 75 [facility] 7t [place] [address] Care Team Providers Care Subway Car Repairer Name Role Phone Radha Shah [facility] Primary Care Provider [phone] Colby Hirsch BURIAL NEEDS SALESPERSON Unavailable Unavailable [facility] Primary Care Provider [phone] Reason for Visit * Reason Comments Med Refill Encounter Details Date Type Department Care Team (Late st Contact Info) Description 06/09/2023 Refill [facility] MEDICINE [address] [place] [address] Marilee Buckner FNP [address] [place] [address] [place] [address] Multiple joint pain; Mixed anxiety and depressive [...] 2:00 PM EST Office Visit [facility] ADULT DENTAL [address] [place] [address] Phillip Borrego, MYA [address] [place] [address] 10/23/2024 1:00 PM EST Office Visit [facility] MEDICINE [address] [place] [address] [place] [facility] [address] [place] [address] 10/24/2024 1:00 PM EST Clinical Support [address] [address] Kira Bansal, MEREDITH documented as of this encounter Visit Diagnoses Diagnosis Multiple joint pain Pain in joint, multiple sites Mixed anxiety and depressive disorder Dysthymic disorder documented in this encounter Additional Health Concerns Assessment Noted Time PHQ-9 Depression Total Score: 18 023 11:25 AM EDT documented as of this encounter Care Teams Subway Car Repairer Relationship Specialty Start Date End Date Radha Shah FNP [address] [place] [address] PCP - General Family Medicine 04/21/23 04/25/24 [place]cairn[place]ecenia FNP [address] [place] [address] PCP - General Family Medicine 04/26/24 Colby Hirsch FNP [address] [place] [address] Nurse Practitioner Family Medicine 07/13/23 Candice Ugarte Asset Availability LeaderBox Tender 12/27/23 documented as of this encounter
--- OUTSIDE RECORDS SUMMARY | 2024-10-10 16:43 | XMS_ITS | Encounter Summary ---
Author Organization [employer] Address 75 [facility] 7t [place] [address] Care Team Providers Care Logging Tractor Operator Swamp Name Role Phone Marc Nicolas Primary Care Provider Unavail able Radha Shah KNOBBER Primary Care Provider [phone] Colby Hirsch Unavailable Unavailable [facility] KNOBBER Primary Care Provider [phone] Reason for Visit * Reason Comments Med Refill Encounter Details Date Type Department Care Team (Late st Contact Info) Description 03/17/2023 Refill [facility] MEDICINE [address] [place] [address] Marc Nicolas AGNP Mixed anxiety and depressive [...] Description 10/12/2024 2:00 PM EST Office Visit [facility] ADULT DENTAL [address] [place] [address] Phillip Borrego, DMD [address] [place] [address] 10/23/2024 1:00 PM EST Office Visit [facility] [address] [place] [address] [place] [facility] [address] [place], [place] 10/24/2024 1:00 PM EST Clinical Support [address] [address] Kira Bansal, MEREDITH documented as of this encounter Visit Diagnoses Diagnosis Mixed anxiety and depressive disorder Dysthymic disorder documented in this encounter Additional Health Concerns Assessment Noted Time PHQ-9 Depression Total Score: 13 023 3:27 PM EDT documented as of this encounter Care Teams Logging Tractor Operator Swamp Relationship Specialty Start Date End Date Marc Nicolas AGNP PCP - General Family Medicine 10/22/22 04/20/23 Radha Shah FNP [address] [place] [address] PCP - General Family Medicine 04/21/23 04/25/24 [place] FNP [address] [place] [address] PCP - General Family Medicine 04/26/24 Colby Hirsch FNP [address] [place] [address] Nurse Practitioner Family Medicine 07/13/23 Candice Ugarte Shift SuperintendentTrim Machine Adjuster 12/27/23 documented as of this encounter
--- OUTSIDE RECORDS SUMMARY | 2024-10-10 16:43 | XMS_ITS | Encounter Summary ---
Author Organization [employer] Address [address] [facility] [place] [address] Care Team Providers Care Technology Infusion Specialist Name Role Phone Marc Nicolas Primary Care Provider Unavail able Radha Shah Primary Care Provider [phone] Colby Hirsch Unavailable Unavailable [facility] NURSE ORTHOPAEDIC Primary Care Provider [phone] Reason for Visit * Reason Onset Date Comments Med Refill 03/16/2023 Encounter Details Date Type Department Care Team (Late st Contact Info) Description 03/16/2023 Telephone [facility] MEDICINE [address] [place] [address] Marc Nicolas AGNP Med Refill Social History [...] 03/16/2023 3:56 PM EDT Pt scheduled for WEB SERVICES DEVELOPER RV 03/17/23 @ 10am. Tramadol refill due 03/19/23, Clonazepam refill due 03/18/23.Will forward request to PCP after WEB SERVICES DEVELOPER appt 03/17/23. * Telephone Encounter - Natividad Rio - 03/16/2023 3:36 PM EDT Tc from pt requesting medication refill on traMADol (Ultram) 50 MG tablet and clonazePAM (KlonoPIN)0.5 MG tablet documented in this encounter Plan of Treatment Upcoming Encounters Date Type Department Care Team (Late st Contact Info) Description 10/12/2024 2:00 PM EST Office Visit [facility] ADULT DENTAL [address] [place] [address] Phillip Borrego, DMD [address] [place] [address] 10/23/2024 1:00 PM EST Office Visit [facility] MEDICINE [address] [place] [id number] Yecenia Frias FNP [address] [place] [address] 10/24/2024 1:00 PM EST Clinical Support [address] [address] Kira Bansal, RN documented as of this encounter Visit Diagnoses Not on filedocumented in this encounter Additional Health Concerns Assessment Noted Time PHQ-9 Depression Total Score: 13 023 3:27 PM EDT documented as of this encounter Care Teams Technology Infusion Specialist Relationship Specialty Start Date End Date Marc Nicolas AGNP PCP - General Family Medicine 10/22/22 04/20/23 Radha Shah FNP [address] [place] [address] PCP - General Family Medicine 04/21/23 04/25/24 LaurensYecenia FNP [address] [place] [address] PCP - General Family Medicine 04/26/24 Colby Hirsch FNP [address] [place] [address] Nurse Practitioner Family Medicine 07/13/23 Candice Ugarte Side PullerVacuum Filter Operator 12/27/23 documented as of this encounter
== END 2024-10-10 16:13 | disposition home or self-care (01) ==
LOC: HO.HHCLNP 16:12
PROVIDERS: Visit Provider Internal Medicine
DX: R39.9 Unspecified symptoms and signs involving the genitourinary system (principal)
CPT/HCPCS: 87086; 87088; 87186

== ENCOUNTER 2024-10-23 14:03 | Outpatient (REF) | payer MEDICAID, SELFPAY ==
--- OUTSIDE RECORDS SUMMARY | 2024-10-23 16:46 | XMS_ITS | Clinical Summary ---
Author Organization [employer] Address [address] [place] [address] Care Team Providers Care Semiconductor Dies Loader Name Role Phone Colby Hirsch [place] Unavailable Unavailable [facility] [place] Primary Care Provider [phone] Allergies Active Allergy Reactions Criticality Noted Date [...] Active beta carotene (vitamin A) 3 MG (07426 UT) capsule TAKE 1 CAPSULE BY MOUTH EVERY MORNING 90 capsule 1 05/22/20 24 Active clotrimazole (Lotrimin) 1 % vaginal creamIndication s:Vulvovaginal Candidiasis Insert one applicator per vagina at bedtime for 7 nights 45 g 07/05/20 24 Active budesonide-form oterol (Symbicort) 80-4.5 MCG/ACT inhalerIndicati [...] times daily. 1 kit 08/09/20 24 Active famotidine (Pepcid) 20 MG tabletIndicatio ns:Gastroesopha geal reflux disease with esophagitis without hemorrhage Take 1 tablet (20 mg) by mouth 2 times daily. 60 tablet 11 09/25/19 25 2025 Active Alcohol Swabs (Alcohol Prep) 70 % pads USE 1 FOUR TIMES DAILY DIRECTED 200 each 09/27/19 25 Active omeprazole (PriLOSEC) [address] capsule TAKE 1 CAPSULE BY MOUTH EVERY MORNING BEFORE BREAKFAST. DO NOT BREAK, CRUSH, DISSOLVE OR CHEW. 90 capsule 3 10/02/19 25 Active traMADol (Ultram) 50 MG tabletIndicatio ns:Multiple joint pain TAKE 1 TABLET BY MOUTH EVERY TWELVE HOURS NEEDED FOR SEVERE PAIN 56 tablet 10/12/19 25 2024 Active oxymetazoline (Afrin Nasal Ennis) 0.05 % nasal sprayIndication s:Viral upper respiratory [...] pain. 30 tablet 1 10/02/19 25 Active acetaminophen (Tylenol 8 Hour) 650 MG ER tabletIndicatio ns:Arthralgia, unspecified joint TAKE 1 TABLET BY MOUTH EVERY 6 HOURS NEEDED 60 tablet 1 10/11/19 25 Active Dulaglutide (Trulicity) 0.75 MG/0.5ML solution auto-injectorIn dications:Type 2 diabetes mellitus without complication, with long-term current use of insulin ([facility]) Inject 0.75 mg under the skin 1 (one) time per week. 2 mL 3 10/24/19 25 2025 Active Alcohol Swabs (Easy Touch Alcohol Prep [...] 90 tablet 3 06/16/20 24 2024 Discontinued Tirzepatide 2.5 MG/0.5ML solution auto-injectorIn dications:Type 2 diabetes mellitus without complication, with long-term current use of insulin ([facility]) Inject 2.5 mg under the skin 1 (one) time per week. 2 mL 3 07/24/20 24 2024 Discontinued acetaminophen (Tylenol 8 Hour) 650 MG ER tabletIndicatio ns:Arthralgia, unspecified joint TAKE 1 TABLET BY MOUTH EVERY 6 HOURS NEEDED 60 tablet 1 08/30/19 25 2024 Discontinued traMADol (Ultram) 50 MG tabletIndicatio ns:Multiple joint pain Take 1 tablet (50 mg) by mouth every 12 (twelve) hours if needed for severe pain for up to 28 days. Do not start before September 05, 2024. 56 tablet 09/05/19 25 2024 Discontinued cephalexin (Keflex) 500 MG capsuleIndicati ons:Cellulitis of face Take 1 capsule (500 mg) by mouth 3 times daily for 7 days. 21 capsule 09/26/19 25 2024 nitrofurantoin, macrocrystal-mo nohydrate, (Macrobid) 100 MG capsuleIndicati ons:Urinary tract infection symptoms Take 1 capsule (100 mg) by mouth 2 times daily for 5 days. 10 capsule 10/10/19 25 2024 ciprofloxacin (Cipro) 500 MG tabletIndicatio ns:Urinary tract infection symptoms Take 1 tablet (500 mg) by mouth 2 times daily for 7 days. 14 tablet 10/12/19 25 2024 Active Problems Problem Noted Date [...] Sacha is currently on the waitlist for LWCC. She was informed to call next month [...] support system PLAN: 1. Follow up with C: Not recommended for follow-up 2. Patient goal is to manage symptoms 3. Behavioral Recommendations a. F/U with [facility] b. Reach out for support Ext. [phone] [...] mechanism to manage sxs, provided her with [facility] Crisis number for after hrs support. She [...] skills discussed in session. She will contact [facility] crisis number as needed. Patient with nervousness, [...] in services PLAN: 1. Follow up with [facility]: Not recommended for follow-up 2. Patient goal [...] in person with a female clinician in [place]. At this time Sacha Rodriguez meets criteria for Visit Diagnoses: Anxiety Disorder Unspecified Patient ready to address current needs Yes Strengths include coping mechanisms of walking and distracting self PLAN: 1. Follow up with [facility]: Not recommended for follow-up 2. Patient goal [...] >60 CM >60 CM Comment: NOTE: ??For -Lithuanian individuals, multiply the result ? by 210.Chronic Kidney Disease: ??Estimated GFR < 60 mL/min/1.01x2Ostgpu Kidney Disease: ??Estimated GFR < 15 mL/min/1.73m2 [...] >60 CM >60 CM Comment: NOTE: ??For -Lithuanian individuals, multiply the result ? by 1.210.Chronic Kidney Disease: ??Estimated GFR < 60 mL/min/1.70h1Iuhkwj Kidney Disease: ??Estimated GFR < 15 mL/min/1.73m2 [...] retiring patient is now referred to new [facility] psychiatric provider. Pt is aware that appts will be via televisit and that provider will not be an [facility] employee. She gives permission to share PHI. [...] night at bedtime (not prn). Based on CARDIOVASCULAR LAB DIRECTOR notes, she appears to be taking Clonazepam [...] organization. Date Type Department Care Team Description 10/23/2024 1:00 PM EST Office Visit [address] [place] [address] Yecenia Frias FNP Other polyneuropathy (Primary Dx); Type 2 diabetes mellitus without complication, with long-term current use of insulin ([facility]); Dietary counseling; Exercise counseling; Encounter for immunization 10/23/2024 Travel 10/23/2024 Outside Procedure [facility] [address] [place] [address] Parveen Elizabethn, OD Presbyopia of both eyes (Primary Dx) 10/20/2024 9:45 AM EST Office Visit [facility] [address] [place] [phone] Akila Elizabeth, OD Regular astigmatism of both eyes (Primary Dx) 10/20/2024 Travel 10/13/2024 Patient Outreach [address] [address] Yecenia Frias FNP Care Coordination (C3 -[facility] telephone call outreach ) 10/12/2024 2:00 PM EST Office Visit [facility] [address] [place] [phone] Phillip Borrego, DMD 10/12/[address] [address] Bethany Bond MD Results 10/12/2024 Orders Only [address] [phone] Bethany Bond MD Urinary tract infection symptoms (Primary Dx) 10/11/2024 Patient Outreach [address] [address] Yecenia Frias FNP Pre-visit Planning ((Unable to reach for PVP screening, LVM)) 10/11/2024 Refill [facility] [address] [place] [phone] Yecenia Frias FNP Arthralgia, unspecified joint 10/10/2024 2:00 PM EST Office Visit [facility] [address] [place] [address] Bethany Bond MD Urinary tract infection symptoms (Primary Dx); Diarrhea, unspecified type 10/02/2024 2:00 PM EST Office Visit [address] [address] [facility] Viral upper respiratory illness (Primary Dx) 10/02/2024 Refill [facility] [address] [place] [address] [facility] Multiple joint pain 10/02/2024 Travel 10/02/[address] [address] [facility] Nurse Triage 10/01/[address] [address] Radha Shah FNP 09/29/[address] [address] [facility] Med Refill 09/26/2024 5:00 PM EST [facility] [address] [address] Quin Victoria MD Cellulitis of face (Primary Dx); Hordeolum externum of left lower eyelid 09/26/[address] [address] Amy Almanza, MEREDITH 09/25/2024 2:00 PM EST Office Visit [facility] [address] [place] [address] Debbie Madera NP Chest pain, atypical (Primary Dx); Obstructive sleep apnea syndrome; Mild intermittent asthma, unspecified whether complicated; Shortness of breath; Gastroesophageal reflux disease with esophagitis without hemorrhage 09/25/2024 Orders Only GENERIC EXTERNAL DATA DEPARTMENT Provider, Generic External Data 09/25/2024 Refill [facility] [address] [place], [place] [phone] Radha Shah FNP 09/21/2024 Patient Outreach [facility] [address] [facility] [place] [address] Yecenia Frias FNP Care Coordination (C3 -[facility] telephone call outreach) 09/18/2024 Patient Outreach [facility] [address] [facility] [place] [address] Yecenia Frias FNP Care Coordination (C3 -[facility] telephone call outreach ) 09/14/2024 10:30 AM EST Office Visit [facility] [address] [place] [address] Glenn, Akila, OD Diabetes type 2, no ocular involvement (CMS/HCC) (Primary Dx); Dry eyes, bilateral; Presbyopia of both eyes 09/14/2024 Travel 09/13/2024 Telephone [facility] [address] [place] [address] Yecenia Frias FNP FYI 09/13/2024 Travel 09/06/2024 Patient Outreach [facility] [address] [place] [address] Yecenia Frias FNP Care Coordination (C3 -[facility] telephone call outreach) 09/01/2024 Refill [facility] [address] [place] [address] Yecenia Frias FNP Multiple joint pain 08/29/2024 Refill [facility] [address] [place] [address] Yecenia Frias FNP Arthralgia, unspecified joint 08/21/2024 4:00 PM EST Office Visit [facility] [address] [place] [address] Name, MD Tony Sore throat (Primary Dx); Acute cough 08/11/2024 Telephone [facility] [address] [place] [address] Yecenia Frias FNP Follow up call 08/11/2024 Telephone [facility] [address] [place] [address] Yecenia Frias FNP 08/11/2024 Patient Outreach [facility] [address] [place] [address] [facility] Care Coordination (C3 [facility] Kelly Obrien telephone call outreach) 08/09/2024 Refill [facility] [address] [place] [address] [facility] Type 2 diabetes mellitus without complication, with long-term current use of insulin ([facility]) 08/08/2024 Patient Outreach [facility] [address] [place] [address] [facility] Care Coordination (C3 [facility] Kelly Obrien telelphone call outreach) 08/08/2024 Patient Outreach [facility] [address] [place] [address] [facility] Care Coordination ([facility] outreach for SDOH housing search-no answer, LVM ) 08/08/[address] [facility] [address] [place] [address] [facility] 08/03/[address] [facility] [address] [facility] [place] [address] Kira Bansal RN 08/03/[address] [facility] [address] [facility] [place] [address] Fred [facility] Arthralgia, unspecified joint 08/03/[address] [facility] [address] [facility] [place] [address] [facility] Multiple joint pain 07/31/2024 1:00 PM EST Clinical Support [facility] [address] [place] [address] Kira Bansal, senior sql developer midline back pain, unspecified back location (Primary Dx) 07/31/[address] [facility] [address] [facility] [place] [address] Fred [facility] FYI 07/31/[address] [facility] [address] [facility] [address] Kira Bansal, RN UTOX Neg BZO, Forgot Clonazepam 07/31/[address] [facility] [address] [place] [address] FredYecenia FNP refill 07/31/2024 Travel 07/31/2024 Telephone [facility] [address] [place] [address] Kira Bansal RN Recomend CARDIOVASCULAR LAB DIRECTOR Tier 2 07/25/2024 Patient Outreach [facility] [address] [facility] [facility] [place] [address] FredYecenia [facility] Care Coordination (C3 -W [facility] telephone call outreach) from Last 3 Months Immunizations Name Administration Dates Next Due Hep A, Adult 10/11/2008 Hep B, adult 05/21/2008,09/22/2007,06/29/2007 Influenza, Split (incl. manuel fied surface antigen) 08/25/2013 Pfizer Covid-19 Vaccine 12+ 05/05/2021, Pfizer Covid-19 Vaccine 12+ Bivalent 10/08/2022 Pneumococcal Polysaccharide PPSV23 06/29/2007 TD (adult), 2 Lf tetanus tox oid, preservative free, adsorbed 02/11/2007,01/19/1994 Tdap 10/23/2024,08/25/2013 Varicella 02/11/2007 Family History Medical History Relation [...] Date Recorded Patient Health Questionnaire-9 Score 0 10/23/2024 Patient Health Questionnaire-9 Score 0 10/23/2024 Last PHQ-9: Questionnaire Data Not on file 0 10/23/2024 Housing Stability Answer Date Recorded What is [...] the past 12 months, has t he [employer], gas, oil or water company threatened to shut off services in your home? No 03/01/2024 Depression Answer Date Recorded Patient Health Questionnaire-2 Score 0 10/23/2024 Internet Access Answer Date Recorded Internet Access [...] Sign Reading Time Taken Comments Blood Pressure 128/82 10/23/2024 1:14 PM EST Pulse 78 10/23/2024 1:14 PM EST Temperature 36.6 ??C (97.8 ??F) 10/23/2024 1:14 PM ES T Respiratory Rate 20 10/23/2024 1:14 PM EST Oxygen Saturation 98% 09/26/2024 4:46 PM EST Inhaled Oxygen Concentration - - Weight 78.5 kg (173 lb) 10/23/2024 1:14 PM EST Height 154.9 cm (5' 1 ) 10/23/2024 1:14 PM EST Body Mass Index 32.69 10/23/2024 1:14 PM EST Plan of Treatment Upcoming Encounters Date Type Department Care Team (Late st Contact Info) Description 10/24/2024 1:00 PM EST Clinical Support [facility] [address] [place] [address] Kira Bansal, RN Health Maintenance Due Date [...] 03/30/2018 03/29/2015 Dental Oral Exam 11/23/2020 05/24/2020 COVID-19 Vaccine ( season) 2024 10/08/2022, 05/05/2021, 04/08/2021 Influenza Vaccine (#1) 2024 08/25/2013 Diabetes: Urine Protein Screening 02/06/2025 02/07/2024, 09/15/2022, 12/12/2020, Additional history exists Diabetes: Hemoglobin A1C 04/25/2025 025, 07/24/2024, 10/22/2023, Additional history exists SDOH Screening 07/25/2025 07/25/2024 Lipid Panel 09/25/2025 09/25/2024, 04/24, 03/06/2024, Additional history exists Depression Screening 10/23/2025 10/23/2024, 10/24/19 25 Tobacco Screening 10/23/2025 10/23/2024 Mammogram 11/15/2025 11/16/2023 Eye Exam 09/14/2026 09/14/2024, 08/24, 09/14/2024, Additional history exists Zoster Vaccines (1 of 2) 12/04/2029 DTaP/Tdap/Td Vaccines (4 - Td or Tdap) 10/23/2034 10/23/2024, 08/25/2013, 02/11/2007, Additional history exists RSV Patients and Patients Aged 60 years [...] Name Priority Date/Time Associated Diagnosis Comments POCT GLUCOSE Routine 10/23/2024 1:17 PM EST Type 2 diabetes mellitus without complication, with long-term current use of insulin ([facility]) POCT GLYCATED HEMOGLOBIN, TOTAL Routine 10/23/2024 1:15 PM EST Type 2 diabetes mellitus without complication, with long-term current use of insulin ([facility]) DENTURE ADJUSTMENT Routine 10/12/2024 2: 00 PM EST CULTURE, URINE, ROUTINE Routine 10/10/2024 2:35 PM EST Urinary tract infection symptoms POCT URINALYSIS DIPSTICK Routine 10/10/2024 2:18 PM [...] Chronic midline back pain, unspecified back location ALBUMIN, RANDOM URINE W/CREATININE Routine 02/07/2024 2:09 [...] Relevant to Health Maintenance Results * POCT Glucose (10/23/2024 1:17 PM EST) Glucose Blood, POC 101 60 - 200 mg/dL Blood Capillary blood specimen / Unknown 10/23/2024 1:17 PM EST Result [facility] POINT OF CARE TEST ENTER/EDIT ORDERABLES Final Result * POCT HGB A1C (10/23/2024 1:15 PM EST) Hemoglobin A1C 5.7 4.0 - 6.0 % Blood 10/23/2024 1:15 PM EST Result [facility] POINT OF CARE TEST ENTER/EDIT ORDERABLES Final Result * Culture, Urine, Routine (10/10/2024 2:35 PM EST) Urine Urine specimen obtained by clean catch procedure / Unknown 10/10/2024 2:35 PM EST 10/10/2024 4:14 PM EST Comment:UACC Narrative [facility] - 10/12/2024 7:44 AM EST Escherichia coli Quant > 100,000 cfu/mL Escherichia coli: Ampicillin >=32(R) Escherichia coli: Cefazolin (Urine) 8(S) Escherichia coli: Cefepime <=0.12(S) Escherichia coli: Ceftriaxone <=0.25(S) Escherichia coli: Ciprofloxacin <=0.06(S) Escherichia coli: Gentamicin >=16(R) Escherichia coli: Nitrofurantoin <=16(S) Escherichia coli: Trimethoprim/Sulfamethoxazole >=320(R) Specimen Source: Urine clean catch Result [facility] Bethany Ritchie MD LAB MICROBIOLOGY - NERAL ORDERABLES Final Result [facility] [address] [place] [address] [phone] * (ABNORMAL) POCT Urinalysis (10/10/2024 2:18 PM [...] None Detected Urine 10/10/2024 2:18 PM EST Result [facility] Bethany Ritchie MD POINT OF CARE TEST EN TER/EDIT ORDERABLES Final Result * POCT Rapid Covid-19 BinaxNOW (10/02/2024 2:44 PM EST) Only the most recent of2 resultswithin the time period is included. [facility] Rapid COVID Ag Negative Swab 10/02/2024 2:44 PM EST Result [facility] POINT OF CARE TEST ENTER/EDIT ORDERABLES Final Result * POCT Rapid Influenza B OSOM (10/02/2024 2:44 PM EST) [facility] Rapid Influenza B Ag Negative Negative, Indeterminate Swab 10/02/2024 2:44 PM EST Result [facility] POINT OF CARE TEST ENTER/EDIT ORDERABLES Final Result * POCT Rapid Influenza A OSOM (10/02/2024 2:44 PM EST) [facility] Rapid Influenza A Ag Negative Negative, Indeterminate Swab Nasopharyngeal structure / Unknown 10/02/2024 2:44 PM EST Result [facility] [place] POINT OF CARE TEST ENTER/EDIT ORDERABLES Final Result * TSH W/Reflex to FT4 (09/25/2024 1:22 PM EST) [facility] TSH reflex Free T4 1.57 0.32 - 4.0 uIU/mL [facility] Blood Venous blood specimen / Unknown 09/25/2024 1:22 PM EST 09/25/2024 4:00 PM EST us Debbie Santy TOOLING SUPERVISOR LAB BLOOD ORDERABLES Final Resul t [facility] [address] [place] [phone] * CBC auto differential (09/25/2024 1:22 PM EST) White Blood Count 7.7 4.8 - 10.8 X10*3/uL [facility] Red Blood Count 4.60 4.20 - 5.50 X10*6/uL [facility] Hemoglobin 12.9 12.0 - 16.0 g/dl [facility] Hematocrit 39.4 37.0 - 47.0 % [facility] Mean Corpuscular Volume 85.7 80.0 - 98.0 fL [facility] Mean Corpuscular Hemoglobin 28.0 27.0 - 33.0 pg [facility] Mean Corpuscular HGB Conc 32.7 31.0 - 35.0 g/dl [facility] Red Cell Distribution Width 12.9 11.0 - 16.0 % [facility] Platelet Count 252 160 - 400 X10*3/uL [facility] Mean Platelet Volume 11.1 9.4 - 12.3 fL [facility] Neutrophils Percent Auto 58.7 45 - 73 % [facility] Imm Gran Pct Auto 0.4 0.0 - 0.4 % [facility] Lymphocytes Percent Auto 32.7 20 - 40 % [facility] Monocytes Percent Auto 6.2 2 - 11 % [facility] Eosinophils Percent Auto 1.7 0 - 4 % [facility] Basophils Percent Auto 0.3 0 - 2 % [facility] NRBC Pct Auto 0.0 0.0 - 0.2 /100WBC [facility] Neutrophils Absolute Auto 4.5 2.0 - 8.3 x10*3/uL [facility] Imm Gran Abs Auto 0.03 0.00 - 0.03 X10*3/uL [facility] Lymphocytes Absolute Auto 2.5 1.2 - 4.9 X10*3/uL [facility] Monocytes Absolute Auto 0.5 0.1 - 1.2 X10*3/uL [facility] Eosinophils Absolute Auto 0.1 0.0 - 0.4 X10*3/uL [facility] Basophils Absolute Auto 0.0 0.0 - 0.2 X10*3/uL [facility] NRBC Abs Auto 0.000 0.0 - 0.012 X10*3/uL [facility] Blood Venous blood specimen / Unknown 09/25/2024 1:22 PM EST 09/25/2024 4:00 PM EST us Debbie Madera NP LAB BLOOD ORDERABLES Final Resul t [facility] [address], [place] [phone] * (ABNORMAL) Lipid Panel, Standard (09/25/2024 1:22 PM EST) Triglycerides 109 <150 mg/dL [facility] Comment:Desirable Triglyceri de: less than 150 mg/dLBorderline High Triglyceride 150-199 mg/dLHigh Triglyceride: 200-499 mg/dLVery High Triglyceride: greater than or equal to 5OO mg/dL Cholesterol 128 <200 mg/dL [facility] Comment:Desirable Cholestero l: less than 200 mg/dLBorderline High Cholesterol: 200-239 mg/dLHigh Cholesterol: greater than 239 mg/dL LDL Cholesterol Calculated 71 <100 mg/dL [facility] Comment:Desirable LDL: less than 100 mg/dLNear Optimal/Above Optimal LDL: 110- 129 mg/dLBorderline High LDL: 130-159 mg/dLHigh LDL: 160-189 mg/dLVery High LDL: greater than or equal to 190 mg/dL HDL Cholesterol 36(L) >40 mg/dL [facility] Comment:Desirable HDL: great er than 40 mg/dL Note: This HDL assay may give artificially low results in patients with liver disease. 09/25/2024 1:22 PM EST 09/25/2024 4:00 PM EST us Generic External Data Provider LAB BLOOD ORDERAB LES Final Result Performing Organization Address City/[facility]/ZIP Co de Phone Number [facility] [address] [place] [phone] * (ABNORMAL) Comprehensive Metabolic Panel (09/25/2024 1:22 PM EST) Sodium 140 135 - 145 mmol/L [facility] Potassium 3.9 3.3 - 5.1 mmol/L [facility] Chloride 110(H) 96 - 108 mmol/L [facility] Carbon Dioxide 24 22 - 29 mmol/L [facility] Anion Gap 10(L) 12 - 20 [facility] Urea Nitrogen (BUN) 8(L) 9 - 16 mg/dL [facility] Creatinine, Serum 0.65 0.5 - 1.4 mg/dL [facility] Estimated Glomerular Filt Rate >60 [facility] Comment:Chronic Kidney Disea se: Estimated GFR < 60 mL/min/[id number] Kidney Disease: Estimated GFR < 15 mL/min/1.73m2 Glucose 92 60 - 115 mg/dL [facility] Calcium 9.2 8.4 - 10.2 mg/dL [facility] Bilirubin, Total 0.5 0.0 - 1.0 mg/dL [facility] Aspartate Amino Transferase 29 5 - 31 U/L [facility] Alanine Aminotransferase 15 0 - 31 U/L [facility] Total Protein 8.0 6.5 - 8.0 g/dL [facility] Albumin Level 4.2 3.5 - 5.0 g/dL [facility] Alkaline Phosphatase 110 39 - 117 U/L [facility] Blood Venous blood specimen / Unknown 09/25/2024 1:22 PM EST 09/25/2024 4:00 PM EST us Debbie Madera NP LAB BLOOD ORDERABLES Final Resul t [facility] [address] [place] [phone] * POCT Rapid Influenza B BALL ID NOW (08/21/2024 3:53 PM EST) [facility] Influenza B Negative Negative, Indeterminate [facility] Swab 08/21/2024 3:53 PM EST Tony Haywood MD POINT OF CARE TEST ENTER/EDIT OR DERABLES Final Result Performing Organization Address [facility] Co de Phone Number [facility] [address] [place] [phone] * POCT Rapid Influenza A BALL ID NOW (08/21/2024 3:53 PM EST) [facility] Influenza A Negative Negative, Indeterminate [facility] Swab 08/21/2024 3:53 PM EST Tony Haywood MD POINT OF CARE TEST ENTER/EDIT OR DERABLES Final Result Performing Organization Address [facility] de Phone Number [facility] [address] [place] [phone] * POCT Rapid Strep A BALL ID NOW (08/21/2024 3:53 PM EST) [facility] Rapid Strep A Screen Negative Negative, None Detected Swab 08/21/2024 3:53 PM EST Tony Haywood MD POINT OF CARE TEST ENTER/EDIT OR DERABLES Final Result * (ABNORMAL) POCT CASSI-14 Urine Drug Screen (07/31/2024 12:40 PM EST) [facility] Benzodiazepines Screen, Urine Negative Urine Urine specimen obtained by clean catch procedure / Unknown 07/31/2024 12:40 PM EST Narrative Kira Bansal RN - 07/31/2024 12:40 PM EST UTOX cup Lot#[id number] Exp. 05/17/26 Internal Pass [facility] POINT OF CARE TEST ENTER/EDIT ORDERABLES Final Result * Drug Monitoring, Benzodiazepines, Quantitative, Urine (07/31/2024 12:30 PM EST) Nordiazepam, GCMS Urine NEGATIVE [facility] Oxazepam, GCMS Urine NEGATIVE [facility] Lorazepam GCMS Urine NEGATIVE [facility] Alprazolam, GCMS Urine NEGATIVE [facility] Alphahydroxytriazolam, GCMS Ur NEGATIVE [facility] Temazepam, GCMS Urine NEGATIVE [facility] Alphahydroxymidazolam,GC MS Ur NEGATIVE [facility] Aminoclonazepam, GCMS Urine NEGATIVE [facility] Flurazepam Metabolite,GCMS Ur NEGATIVE [facility] Benzodiazepines Comments SEE NOTE [facility] Comment:This drug testing is for medical treatment only.Analysis was performed as non-forensic testing andthese results should be used only by healthcareproviders to render diagnosis or treatment, or tomonitor progress of medical conditions.LDT Notes:Confirmation tests were developed and their analyticalperformance characteristics have been determined by[facility]. It has not been cleared or approvedby the FDA. This assay has been validated pursuant tothe CLIA regulations and is used for clinical purposes.Healthcare Providers needing Interpretation assistance,please contact us at [phone] ( )M-F, 8am to 10pm ESTTHIS TEST PERFORMED AT:[employer] [facility] [address] [phone] DIRECTOR: KWESI TAYLOR MD Urine (Urine, Random) 07/31/2024 12:30 PM EST 07/31/2024 5:55 PM EST [facility] LAB URINE ORDERABLES Final Re sult [facility] [address] [place] [address] [phone] * Albumin, Random Urine W/Creatinine (02/07/2024 2:09 PM EDT) Creatinine, Urine 164.92 mg/dL [facility] Microalbumin Urine 16.0 mg/L [facility] Microalbum Creatinine Ratio Ur 9.7 <30 ug/mg cr [facility] Comment:Albumin/Creatinine R atio Reference Ranges: Normal: < 30 ug/mg creatinine Microalbuminuria: 30 - 300 ug/mg creatinineClinical Albuminuria: > 300 ug/mg creatinine Urine (Urine, Random) 02/07/2024 2:09 PM EDT 02/07/2024 3:55 PM EDT Radha Shah CITY COUNCILMAN LAB URINE ORDERABLES Final Resu lt Performing Organization Address [facility]/ZIP Co de Phone Number [facility] [address] [place] [address] [phone] * BI Mammogram Screening Tomosynthesis Bilateral (11/16/2023 1:25 PM EDT) Anatomical Region Laterality Modality Breast Bilateral Mammography 11/16/2023 1:25 PM EDT Narrative 12/02/2023 6:15 AM EDT ? [facility] ? [address] [facility] ?[place] [address] ? Mammography Report ? Signed ? Patient: Roach Rodriguez,Yamarys ?MR#: [id number] ?? [id number] ? : 1980 ?Acct:[id number] ? Age/Sex: 42 / F ?ADM Date: 03/26/24 ? Loc: HO.MAMMO ? Attending Dr: Radha Shah TOOLING SUPERVISOR ? Ordering Physician: Radha Shah TOOLING SUPERVISOR ?Results: 1Negativ ?? e ? Date of Service: 11/16/23 ?Follow Up: 1 Year From Orig ?? inal Mammogram ? Procedure(s): MM tomosynthesis screening BI ?? Accession Number(s): [id number] ? cc: Radha Shah TOOLING SUPERVISOR ? EXAMINATION: ?? MM SCREENING DIGITAL BREAST [...] MD in OV> ? 12/02/23610 ? DD/ ? TD/TT: ? Clinical Documentation Improvement Specialist: ? Procedure Note Donotuseinterpreter, Image - 12/02/2023 [facility] [address] [place] [address] Mammography Report Signed Patient: Xavier ContrerasR#: [id number] : 1980Acct:[id number] Age/Sex: 42 / FADM Date: 11/16/23 Loc: HO.MAMMO Attending Dr: Radha Shah TOOLING SUPERVISOR Ordering Physician: Radha Shah NPResults: 1Negativ e Date of Service: 11/16/23Follow Up: 1 Year From Orig inal Mammogram Procedure(s): MM tomosynthesis screening BI Accession Number(s): [id number] cc: Radha Shah TOOLING SUPERVISOR EXAMINATION: MM SCREENING DIGITAL BREAST TOMOSYNTHESIS, BILATERAL [...] in OV> 12/02/23 0611 DD/ 1325 TD/TT: Clinical Documentation Improvement Specialist: Radha Shah CITY COUNCILMAN IMG BI PROCEDURES Final Result * (ABNORMAL) Hepatitis Panel, General (02/22/2023 1:46 PM EDT) Hepatitis A Antibody Total REACTIVE( A) NON-REACT TAWNYA [facility] [place] [employer] Comment: For additional information, please refer to http://[employer]/faq/IAB438 (This link is being provided for informational/ educational purposes only.) Hepatitis B Surface Antibody QL REACTIVE( A) NON-REACT TAWNYA [facility] [place] [employer] Hepatitis B Surface Ag NON-REACT TAWNYA NON-REACT TAWNYA [facility] [place] [employer] Comment: For additional information, please refer to http://[employer]/faq/UGO330 (This link is being provided for informational/ educational purposes only.) Hepatitis B Core Antibody Total NON-REACT TAWNYA NON-REACT TAWNYA [facility] [place] [employer] Comment: For additional information, please refer to http://[employer]/faq/OEK427 (This link is being provided for informational/ educational purposes only.) Hepatitis C Antibody NON-REACT TAWNYA NON-REACT TAWNYA [facility] [place] [employer] Comment: HCV antibody was non-reactive. There is no laboratory evidence of HCV infection. In most cases, no further action is required. However, if recent HCV exposure is suspected, a test for HCV RNA (test code 96957) is suggested. For additional information please refer to http://[employer]/faq/VLM55o3 (This link is being provided for informational/ educational purposes only.) 02/22/2023 1:46 PM EDT 02/22/2023 1:46 PM EDT Narrative [facility] - 02/26/2023 7:51 PM EDT FASTING:NO FASTING: NO us Marc [facility]IG[facility] LAB BLOOD ORDERABLES Final Res ult [facility] [address], [place] [address] [facility] [place] [facility] [address] [place] [address] from Last 3 Months or Most Recently Relevant to Health Maintenance Insurance [place] [facility] MEDICAID STAND ADULT Care Teams Semiconductor Dies Loader Relationship Specialty Start Date End Date Yecenia Frias FNP [address] [place] [address] PCP - General Family Medicine 04/26/24 Colby Hirsch FNP Nurse Practitioner Family Medicine 07/13/23 Candice Ugarte Hot Dip Tinning SupervisorCareer Placement Services Counselor 12/27/23
--- OUTSIDE RECORDS SUMMARY | 2024-10-23 16:46 | XMS_ITS ---
Author Organization [facility] Address [address] [place] [address] Care Team Providers Care Healthcare Customer Service Name Role Phone Radha Rodriguez Primary Care Provider Unavaila Jaylan Alaniz Unavailable [phone] REASON FOR VISIT cancelled appt on 06/20/2024 Encounters Encounter Location Date Provider Diagnosis [facility] [address] [place] [address] 06/16/2024 Jaylan Neal PLAN OF TREATMENT No Information
--- OUTSIDE RECORDS SUMMARY | 2024-10-23 16:46 | XMS_ITS | Encounter Summary ---
Author Organization [employer] Address [address] [facility] 7t [place] [address] Care Team Providers Care Dairy Consultant Name Role Phone Colby Hirsch SHORT RANGE AIR DEFENSE ARTILLERY Unavailable Unavailable [facility] [employer] ARTILLERY Primary Care Provider [phone] Encounter Details Date Type Department Care Team (Late st Contact Info) Description 10/10/2024 2:00 PM EST Office Visit [facility] [address] [place] [address] Bethany Bond MD [address] [place] [address] Urinary tract infection symptoms (Primary Dx); Diarrhea, [...] 2:01 PM EST documented in this encounter Progress Notes * JACINTO Mcdonald - 10/10/2024 3:00 PM EST Images from the original note were not included. Subjective Sacha Rodriguez is a 43 y.o. female who presents [facility] with complaints of UTI symptoms. Reports her Urinary symptoms of frequency, burning and pressure started on Wednesday. She has not used any medication. Denies Fever/ nausea/ vomiting. Denies vaginal symptoms -itching, odor, or unusual discharge. Denies pelvic pain, reports lower abdominal pain and mild bilateral CVA tenderness r/t chronic bilateral kidney stones Reports she is followed by urologist and has a pending appointment. Patient reports diarrhea since this morning. Has had 5 watery BM, denies fever, vomiting, mucous orblood in the stool. Patient does not menstruate patient reports hx of complete hysterectomy. Sexually active with only. Lives with partner and denies any safety concerns at home or with partner. Review of Systems Constitutional: Negative for appetite change, chills and fever. Respiratory: Negative for apnea, cough, chest tightness, shortness of breath and wheezing. Cardiovascular: Negative for chest pain, palpitations and leg swelling. Gastrointestinal: Positive for abdominal pain and diarrhea. Negative for blood in stool, constipation, nausea and vomiting. Lower abdominal pain Skin: Negative for pallor. Neurological: Negative for dizziness, syncope, weakness and light-headedness. Psychiatric/Behavioral: Negative for suicidal ideas. Objective Visit Vitals BP 122/80 (BP Location: Right arm, Patient Position: Sitting, BP Cuff Size: Adult) Pulse 80 Temp 98.7 ??F (37.1 ??C) (Oral) Resp 18 Ht 5' 1 (1.549 m) Wt 177 lb 12.8 oz (80.6 kg) BMI 33.60 kg/m?? OB Status Hysterectomy Smoking Status Never BSA 1.86 m?? Urine Analysis Color, UA Yellow Blood, UA Positive Abnormal Clarity, UA Cloudy pH, UA 6.0 Glucose, UA Negative Protein, UA 2+ 125++ Bilirubin, UA Few 15 Urobilinogen, UA 1.0 Ketones, UA Positive Leukocytes, UA Few 15 Abnormal Spec Grav, UA 1.025 Nitrite, UA Negative Physical Exam Vitals reviewed. Constitutional: Appearance: Normal appearance. HENT: Head: Atraumatic. Cardiovascular: Rate and Rhythm: Normal rate and regular rhythm. Pulses: Normal pulses. Heart sounds: Normal heart sounds. No murmur heard. Pulmonary: Effort: Pulmonary effort is normal. Breath sounds: Normal breath sounds. No wheezing. Abdominal: Tenderness: There is right CVA tenderness and left CVA tenderness. Neurological: Mental Status: She is alert and oriented to person, place, and time. Psychiatric: Mood and Affect: Mood normal. Behavior: Behavior normal. Problem List Items Addressed This Visit Urinary tract infection symptoms - Primary Yamarys presents with complaints of UTI symptoms of frequency, burning and pressure start 3 days. She has not used any medication. Denies Fever/ nausea/ vomiting. Denies vaginal symptoms -itching, odor, or unusual discharge. Denies pelvic pain, reports lower abdominal pain and mild bilateral CVA tenderness r/t chronic bilateral kidney stones followed by [facility] with pending follow upappointment. Positive urine analysis will start patient on Nitrofurantoin 100 mg. Patient if symptoms worsens ordevelops fever. Follow up with PCP Relevant Medications nitrofurantoin, macrocrystal-monohydrate, (Macrobid) 100 MG capsule Other Relevant Orders POCT Urinalysis (Completed) Culture, Urine, Routine Diarrhea, unspecified type Reports 5 episodes of watery bowel movement this morning. Denies fever, vomiting, mucous or blood in the stool. Denies weakness or blurry vision. Patient advised to keep hydrated and return if increased diarrhea/ vomiting/ mucous or blood in the stool. Prescribed bland diet. DELINQUENT ACCOUNT CLERK Resident Attestation: Patient was seen and evaluated by Katherine CASEY in collaboration with Bethany Ritchie MD who has reviewed my assessment and plan. I, Bethany Ritchie MD, have reviewed the resident's note and agree with the assessment & plan of care as documented above. documented in this encounter Plan of Treatment Upcoming Encounters Date Type Department Care Team (Late st Contact Info) Description 10/24/2024 1:00 PM EST Clinical Support [facility] [address] [place] [address] Kira Bansla RN documented as of this encounter Procedures Procedure Name Priority Date/Time Associated Diagnosis Comments CULTURE, URINE, ROUTINE Routine 10/10/2024 2:35 PM EST Urinary tract infection symptoms POCT URINALYSIS DIPSTICK Routine 10/10/2024 2:18 PM EST Urinary tract infection symptoms documented in this encounter Results * Culture, Urine, Routine (10/10/2024 2:35 PM EST) Urine Urine specimen obtained by clean catch procedure / Unknown 10/10/2024 2:35 PM EST 10/10/2024 4:14 PM EST Comment:UACC Narrative [facility] - 10/12/2024 7:44 AM EST Escherichia coli Quant > 100,000 cfu/mL Escherichia coli: Ampicillin >=32(R) Escherichia coli: Cefazolin (Urine) 8(S) Escherichia coli: Cefepime <=0.12(S) Escherichia coli: Ceftriaxone <=0.25(S) Escherichia coli: Ciprofloxacin <=0.06(S) Escherichia coli: Gentamicin >=16(R) Escherichia coli: Nitrofurantoin <=16(S) Escherichia coli: Trimethoprim/Sulfamethoxazole >=320(R) Specimen Source: Urine clean catch us Bethany Ritchie MD LAB MICROBIOLOGY - NERAL ORDERABLES Final Result [facility] [address] [place] [phone] * (ABNORMAL) POCT Urinalysis (10/10/2024 2:18 [...] documented as of this encounter Care Teams Dairy Consultant Relationship Specialty Start Date End Date Yecenia Frias FNP [address] [place] [address] PCP - General Family Medicine 04/26/24 Colby Hirsch FNP Nurse Practitioner Family Medicine 07/13/23 Candice Ugarte Paintless Dent Repair TechnicianV Groove Cutter 12/27/23 documented as of this encounter
--- OUTSIDE RECORDS SUMMARY | 2024-10-23 16:46 | XMS_ITS | Encounter Summary ---
Author Organization [employer] Address [address] [facility] 7t [place] [address] Care Team Providers Care Back Up Machine Operator Name Role Phone Ruth Hoffmann EVENT MARKETING COORDINATOR Primary Care Provider Marc Nava Primary Care Provider Unavail able Radha Shah EVENT MARKETING COORDINATOR Primary Care Provider [phone] Colby HirschP Unavailable Unavailable [facility] EVENT MARKETING COORDINATOR Primary Care Provider [phone] Reason for Visit * Reason Onset Date Comments Appointment Request 10/01/2022 Encounter Details Date Type Department Care Team (Late st Contact Info) Description 10/01/2022 Telephone [facility] [address] [place] [address] Ruth Hoffmann FNP Appointment Request Social History [...] Description 10/24/2024 1:00 PM EST Clinical Support [facility] [address] [place] [address] Kira Bansal, RN documented as of this encounter Visit Diagnoses Not on filedocumented in this encounter Care Teams Back Up Machine Operator Relationship Specialty Start Date End Date Ruth Hoffmann FNP PCP - General Family Medicine 07/21/22 10/21/22 Marc Nicolas AGNP PCP - General Family Medicine 10/22/22 04/20/23 Radha Shah FNP [address] [place] [address] PCP - General Family Medicine 04/21/23 04/25/24 DetroitYecenia FNP [address] [place] [address] PCP - General Family Medicine 04/26/24 Colby Hirsch FNP [address] [place] [address] Nurse Practitioner Family Medicine 07/13/23 Candice Ugarte 911 OperatorCoding Clerk 12/27/23 documented as of this encounter
--- OUTSIDE RECORDS SUMMARY | 2024-10-23 16:46 | XMS_ITS ---
Author Organization [facility] Address [address] [place] [address] Care Team Providers Care Needle Loom Operator Helper Name Role Phone Radha Rodriguez Primary Care Provider Unavaila Jaylan Alaniz Unavailable [phone] REASON FOR VISIT FATTY LIVER Encounters Encounter Location Date Provider Diagnosis [facility] [address] [place] [address] 06/20/2024 Jaylan Neal PLAN OF TREATMENT No Information
--- OUTSIDE RECORDS SUMMARY | 2024-10-23 16:46 | XMS_ITS | Encounter Summary ---
Author Organization [employer] [facility] Address [address] [facility] 7t [place] [address] Care Team Providers Care Accredited Farm Manager Name Role Phone Radha Shah AGRICULTURE LABORER Primary Care Provider [phone] Colby Hirsch Unavailable Unavailable [facility] Primary Care Provider [phone] Reason for Visit * Reason Comments Med Refill Encounter Details Date Type Department Care Team (Late st Contact Info) Description 11/24/2023 Refill [facility] [address] [place] [address] Radha Shah FNP [address] [place] [address] Multiple joint pain Social History Tobacco Use [...] Description 10/24/2024 1:00 PM EST Clinical Support [facility] [address] [place] [address] Kira Bansal RN documented as of this encounter Visit Diagnoses Diagnosis Multiple joint pain Pain in joint, multiple sites documented in this encounter Additional Health Concerns Assessment Noted Time PHQ-9 Depression Total Score: 8 09/02/19 24 11:12 AM EST documented as of this encounter Care Teams Accredited Farm Manager Relationship Specialty Start Date End Date Radha Shah FNP [address] [place] [address] PCP - General Family Medicine 04/21/23 04/25/24 ClymanYecenia FNP [address] [place] [address] PCP - General Family Medicine 04/26/24 Colby Hirsch FNP [address] [place] [address] Nurse Practitioner Family Medicine 07/13/23 Candice Ugarte Engineering Team SupervisorFiber Machine Tender 12/27/23 documented as of this encounter
--- OUTSIDE RECORDS SUMMARY | 2024-10-23 16:46 | XMS_ITS | Encounter Summary ---
Author Organization [employer] Address [address] [facility] 7t [place] [address] Care Team Providers Care Emblem Drawer In Name Role Phone Marc Nicolas Primary Care Provider Unavail able Radha Shah FOREIGN CORRESPONDENT Primary Care Provider [phone] Colby Hirsch Unavailable Unavailable [facility] FOREIGN CORRESPONDENT Primary Care Provider [phone] Reason for Visit * Reason Onset Date Comments Referral 01/26/2023 Encounter Details Date Type Department Care Team (Late st Contact Info) Description 01/26/2023 Telephone [facility] [address] [place] [address] Marc Nicolas AGNP Referral Social History Tobacco [...] Description 10/24/2024 1:00 PM EST Clinical Support [facility] [address] [place] [address] Kira Bansal, RN documented as of this encounter Visit Diagnoses Not on filedocumented in this encounter Additional Health Concerns Assessment Noted Time PHQ-9 Depression Total Score: 19 023 3:57 PM EDT documented as of this encounter Care Teams Emblem Drawer In Relationship Specialty Start Date End Date Marc Nicolas AGNP PCP - General Family Medicine 10/22/22 04/20/23 Radha Shah FNP [address] [place] [address] PCP - General Family Medicine 04/21/23 04/25/24 [place] FNP [address] [place] [address] PCP - General Family Medicine 04/26/24 Colby Hirsch FNP [address] [place] [address] Nurse Practitioner Family Medicine 07/13/23 Candice Ugarte Inspector Wire RopeEnvironmental Resource Specialist 12/27/23 documented as of this encounter
--- OUTSIDE RECORDS SUMMARY | 2024-10-23 16:47 | XMS_ITS | Encounter Summary ---
Author Organization [employer] Address [address] [facility] 7t [place] [address] Care Team Providers Care Radio Station Operator Name Role Phone Radha Shah CYLINDER BLOCK MECHANIC Primary Care Provider [phone] Colby Hirsch Unavailable Unavailable [facility] Primary Care Provider [phone] Reason for Visit * Reason Comments Med Refill Encounter Details Date Type Department Care Team (Late st Contact Info) Description 06/30/2023 Refill [facility] [address] [place] [address] Radha Shah FNP [address] [place] [address] Multiple joint pain Social History Tobacco Use [...] Description 10/24/2024 1:00 PM EST Clinical Support [facility] [address] [place] [address] Kira Bansal RN documented as of this encounter Visit Diagnoses Diagnosis Multiple joint pain Pain in joint, multiple sites documented in this encounter Additional Health Concerns Assessment Noted Time PHQ-9 Depression Total Score: 6 06/15/20 23 10:23 AM EDT documented as of this encounter Care Teams Radio Station Operator Relationship Specialty Start Date End Date Radha Shah FNP [address] [place] [address] PCP - General Family Medicine 04/21/23 04/25/24 [place]ecenia FNP [address] [place] [address] PCP - General Family Medicine 04/26/24 Colby Hirsch FNP [address] [place] [address] Nurse Practitioner Family Medicine 07/13/23 Candice Ugarte Emergency Response OfficerTop Ironer 12/27/23 documented as of this encounter
--- OUTSIDE RECORDS SUMMARY | 2024-10-23 16:47 | XMS_ITS | Encounter Summary ---
Author Organization [employer] Address [address] [facility] 7t [place] [address] Care Team Providers Care Telephone Solicitor Supervisor Name Role Phone Colby Hirsch PACK MULE WORKER Unavailable Unavailable [facility] PACK MULE WORKER Primary Care Provider [phone] Encounter Details Date Type Department Care Team [...] Description 10/24/2024 1:00 PM EST Clinical Support [facility] [address] [place] [address] Kira Bansal RN documented as of this encounter Procedures Procedure Name Priority Date/Time Associated Diagnosis Comments LIPID PANEL, STANDARD Routine 09/25/2024 1:22 PM EST documented in this encounter Results * (ABNORMAL) Lipid Panel, Standard (09/25/2024 1:22 PM EST) Triglycerides 109 <150 mg/dL [facility] Comment:Desirable Triglyceri de: less than 150 mg/dLBorderline High Triglyceride 150-199 mg/dLHigh Triglyceride: 200-499 mg/dLVery High Triglyceride: greater than or equal to 5OO mg/dL Cholesterol 128 <200 mg/dL [facility] Comment:Desirable Cholestero l: less than 200 mg/dLBorderline High Cholesterol: 200-239 mg/dLHigh Cholesterol: greater than 239 mg/dL LDL Cholesterol Calculated 71 <100 mg/dL [facility] Comment:Desirable LDL: less than 100 mg/dLNear Optimal/Above Optimal LDL: 110- 129 mg/dLBorderline High LDL: 130-159 mg/dLHigh LDL: 160-189 mg/dLVery High LDL: greater than or equal to 190 mg/dL HDL Cholesterol 36(L) >40 mg/dL [facility] Comment:Desirable HDL: great er than 40 mg/dL Note: This HDL assay may give artificially low results in patients with liver disease. 09/25/2024 1:22 PM EST 09/25/2024 4:00 PM EST us Generic External Data Provider LAB BLOOD ORDERAB LES Final Result [facility] [address] [place] [address] [phone] documented in this encounter Visit Diagnoses Not on filedocumented in this encounter Additional Health Concerns Assessment Noted Time PHQ-9 Depression Total Score: 7 03/07/20 24 10:13 AM EDT documented as of this encounter Care Teams Telephone Solicitor Supervisor Relationship Specialty Start Date End Date Yecenia Frias FNP [address] [place] [address] PCP - General Family Medicine 04/26/24 Colby Hirsch FNP Nurse Practitioner Family Medicine 07/13/[address] Engineer FreightSnowmobile Mechanic 12/27/23 documented as of this encounter
--- OUTSIDE RECORDS SUMMARY | 2024-10-23 16:47 | XMS_ITS | Encounter Summary ---
Author Organization [employer] Address 75 [facility] 7t [place] [address] Care Team Providers Care Track Production Engineer Name Role Phone Radha Shah [facility] Primary Care Provider [phone] Colby Hirsch PLANER OFFBEARER Unavailable Unavailable [facility] Primary Care Provider [phone] Reason for Visit * Reason Comments Med Refill Encounter Details Date Type Department Care Team (Late st Contact Info) Description 06/04/2023 Refill [facility] MEDICINE [address] [place] [address] Marilee Buckner FNP [address] [place] [address] [place] [address] Multiple joint pain; Mixed anxiety and depressive [...] Description 10/24/2024 1:00 PM EST Clinical Support [facility] MEDICINE [address] [place] [address] Kira Bansal RN documented as of this encounter Visit Diagnoses Diagnosis Multiple joint pain Pain in joint, multiple sites Mixed anxiety and depressive disorder Dysthymic disorder documented in this encounter Additional Health Concerns Assessment Noted Time PHQ-9 Depression Total Score: 0 04/02/20 23 2:10 PM EDT documented as of this encounter Care Teams Track Production Engineer Relationship Specialty Start Date End Date Radha Shah FNP [address] [place] [address] PCP - General Family Medicine 04/21/23 04/25/24 MonroeYecenia FNP [address] [place] [address] PCP - General Family Medicine 04/26/24 Colby Hirsch FNP [address] [place] [address] Nurse Practitioner Family Medicine 07/13/23 Candice Ugarte Vehicle DetailerChoral Teacher 12/27/23 documented as of this encounter
--- OUTSIDE RECORDS SUMMARY | 2024-10-23 16:47 | XMS_ITS | Encounter Summary ---
Author Organization [employer] Address 75 [facility] 7t [place] [address] Care Team Providers Care Chief Design Drafter Name Role Phone Colby Hirsch OFFICE SUPPORT ASSISTANT Unavailable Unavailable [facility] OFFICE SUPPORT ASSISTANT Primary Care Provider [phone] Reason for Visit * Reason Comments Dentures Encounter Details Date Type Department Care Team (Late st Contact Info) Description 10/12/2024 2:00 PM EST Office Visit [facility] ADULT DENTAL [address] [place] [address] Phillip Borrego, MYA [address] [place] [address] Social History Tobacco Use Types Packs/Day Years [...] with others, in a hotel, in a mcc, living outside on the street, on a [...] as of this encounter Progress Notes * Phillip Borrego DMD - 10/12/2024 2:00 PM EST /F: shorten and thin the lower mid lingual border. Pt feels better Pt has severe shrinkage of lower alveolar ridge Charline documented in this encounter Plan of Treatment Upcoming Encounters Date Type Department Care Team (Late st Contact Info) Description 10/24/2024 1:00 PM EST Clinical Support [facility] MEDICINE [address] [place] [address] Kira Bansal RN documented as of this encounter Procedures Procedure Name Priority Date/Time Associated Diagnosis Comments DENTURE ADJUSTMENT Routine 10/12/2024 2:00 PM EST documented in this encounter Visit Diagnoses Not on filedocumented in this encounter Additional Health Concerns Assessment Noted Time PHQ-9 Depression Total Score: 7 03/07/20 10:13 AM EDT documented as of this encounter Care Teams Chief Design Drafter Relationship Specialty Start Date End Date Yecenia Frias FNP [address] [place] [address] PCP - General Family Medicine 04/26/24 Colby Hirsch FNP Nurse Practitioner Family Medicine 07/13/23 Candice Ugarte Automatic Print DeveloperMoss Bleacher 12/27/23 documented as of this encounter
--- OUTSIDE RECORDS SUMMARY | 2024-10-23 16:47 | XMS_ITS | Encounter Summary ---
Author Organization [employer] Address 75 [facility] [address], [place] [address] Care Team Providers Care Trekking Guide Name Role Phone Colby Hirsch CAMPAIGN MARKETING MANAGER Unavailable Unavailable [facility] Primary Care Provider [phone] Reason for Visit * Reason Comments Pre-visit Planning (Unable to reach for PVP screening, LVM) Encounter Details Date Type Department Care Team ([facility] Contact Info) Description 10/11/[address] [facility] MEDICINE [address] [place] [address] [facility] 230 [place] [address] Pre-visit Planning ((Unable to reach for PVP screening, LVM)) Social History Tobacco Use Types Packs/Day Years [...] with others, in a hotel, in a usp, living outside on the street, on a [...] as of this encounter Progress Notes * Funmi Cruz - 10/11/2024 10:25 AM EST CC Funmi. Placed outbound call to patient to complete pre-visit planning. No answer at this time. Patient name and were not confirmed. CC left voicemail requesting return call. Direct contact information provided. documented in this encounter Plan of Treatment Upcoming Encounters Date Type Department Care Team (Late st Contact Info) Description 10/24/2024 1:[address] EST [address] [facility] MEDICINE [address] [place] [address] Kira Bansal RN documented as of this encounter Visit Diagnoses Not on filedocumented in this encounter Additional Health Concerns Assessment Noted Time PHQ-9 Depression Total Score: 7 03/07/20 24 10:13 AM EDT documented as of this encounter Care Teams Trekking Guide Relationship Specialty Start Date End Date Yecenia Frias FNP 230 [place] [address] PCP - General Family Medicine 04/26/24 Colby Hirsch FNP Nurse Practitioner Family Medicine 07/13/23 Candice Ugarte Swimming Coach Or InstructorTechnician Preventative Medicine 12/27/23 documented as of this encounter
--- OUTSIDE RECORDS SUMMARY | 2024-10-23 16:47 | XMS_ITS | Encounter Summary ---
Author Organization [employer] Address 75 [facility] 7t [place] [address] Care Team Providers Care Development Mechanic Name Role Phone Colby Hirsch SUPERVISOR ELECTROLYTIC TINNING Unavailable Unavailable [facility] Primary Care Provider [phone] Encounter Details Date Type Department Care Team (Late st Contact Info) Description 10/02/2024 2:00 PM EST Office Visit [facility] MEDICINE 230 [place] [address] [facility] 230 [place] [address] Viral upper respiratory illness (Primary Dx) Social [...] documented in this encounter Progress Notes * [facility], SUPERVISOR ELECTROLYTIC TINNING - 10/02/2024 2:00 PM EST SUBJECTIVE: Sacha [...] respiratory illness (Primary) - oxymetazoline (Afrin Nasal Byron) 0.05 % nasal spray; Administer 2 sprays [...] Rfl: beta carotene (vitamin A) 3 MG (22485 UT) capsule, TAKE 1 CAPSULE BY MOUTH [...] tablet, Rfl: 0 Czech Translation: Provided by [facility] staff member REMINGTON documented in this encounter Plan of Treatment Upcoming Encounters Date Type Department Care Team (Late st Contact Info) Description 10/24/2024 1:00 PM EST Clinical Support [facility] MEDICINE [address] [place] [address] Kira Bansal RN documented as of this [...] structure / Unknown 10/02/2024 2:44 PM EST [facility] POINT OF CARE TEST ENTER/EDIT ORDERABLES Final Result * POCT Rapid Influenza B OSOM (10/02/2024 2:44 PM EST) Pathologist [facility] Rapid Influenza B Ag Negative Negative, Indeterminate Swab 10/02/2024 2:44 PM EST [facility] POINT OF CARE TEST ENTER/EDIT ORDERABLES Final Result * POCT Rapid Covid-19 BinaxNOW (10/02/2024 2:44 PM EST) Rapid COVID Ag Negative Swab 10/02/2024 2:44 PM EST [facility] POINT OF CARE TEST ENTER/EDIT ORDERABLES Final Result documented in this encounter Visit Diagnoses Diagnosis Viral upper respiratory illness- Primary documented in this encounter Additional Health Concerns Assessment Noted Time PHQ-9 Depression Total Score: 7 03/07/20 24 10:13 AM EDT documented as of this encounter Care Teams Development Mechanic Relationship Specialty Start Date End Date Yecenia Frias FNP [address] [place] [address] PCP - General Family Medicine 04/26/24 Colby Hirsch FNP Nurse Practitioner Family Medicine 07/13/23 Candice Ugarte Delivery NurseParaprofessional Aide Teacher 12/27/23 documented as of this encounter
--- OUTSIDE RECORDS SUMMARY | 2024-10-23 16:47 | XMS_ITS | Encounter Summary ---
Author Organization [employer] Address 75 [facility] 7t [place] [address] Care Team Providers Care House Worker Name Role Phone Colby Hirsch LUMBER PRESS OPERATOR Unavailable Unavailable [facility] LUMBER PRESS OPERATOR Primary Care Provider [phone] Reason for Referral * Consultation (Routine) - Authorized Specialty Diagnoses / Procedures Referred By Aminta t Referred To Contact Pulmonary Disease Diagnoses Shortness of breath Debbie Madera NP [address] [place] [address] Phone: tel: fax: [facility] [address] 1st Floor [place], [place] Phone: tel: fax: Referral ID Status Reason Start Date Expiration Date Visits Requested Visits Authorized [id number] Authorized Specialty Services Required 09/25/2024 09/25/2025 6 6 Encounter Details Date Type Department Care Team (Late st Contact Info) Description 09/25/2024 2:00 PM EST Office Visit [facility] 230 [place] [address] Debbie Madera NP [address] [place], [place] [phone] Chest pain, atypical (Primary Dx); Obstructive sleep [...] daily. beta carotene (vitamin A) 3 MG (62929 UT) capsule TAKE 1 CAPSULE BY MOUTH EVERY MORNING 90 capsule 1 Bisacodyl EC 5 MG EC tablet TAKE 1 TABLET BY MOUTH EVERY DAY NEEDED FOR CONSTIPATION. DO NOT BREAK, CRUSH, DISSOLVE OR CHEW. 30 tablet 0 Blood Glucose Monitoring Suppl (NanoSight) w/Device kit 1 Device 2 times daily. [...] medications for this visit. Visit Conducted in: Turkish Translation by: [place] [id number] documented in this encounter Miscellaneous Notes * [...] Description 10/24/2024 1:00 PM EST Clinical Support [facility] MEDICINE [address] [place] [phone] Kira Bansal, MEREDITH Scheduled Referrals Name Type [...] EST) Sodium 140 135 - 145 mmol/L [facility] Potassium 3.9 3.3 - 5.1 mmol/L [facility] Chloride 110(H) 96 - 108 mmol/L [facility] Carbon Dioxide 24 22 - 29 mmol/L [facility] Anion Gap 10(L) 12 - 20 [facility] Urea Nitrogen (BUN) 8(L) 9 - 16 mg/dL [facility] Creatinine, Serum 0.65 0.5 - 1.4 mg/dL [facility] Estimated Glomerular Filt Rate >60 [facility] Comment:Chronic Kidney Disea se: Estimated GFR < 60 mL/min/1.77n3Homidi Kidney Disease: Estimated GFR < 15 mL/min/1.73m2 Glucose 92 60 - 115 mg/dL [facility] Calcium 9.2 8.4 - 10.2 mg/dL [facility] Bilirubin, Total 0.5 0.0 - 1.0 mg/dL [facility] Aspartate Amino Transferase 29 5 - 31 U/L [facility] Alanine Aminotransferase 15 0 - 31 U/L [facility] Total Protein 8.0 6.5 - 8.0 g/dL [facility] Albumin Level 4.2 3.5 - 5.0 g/dL [facility] Alkaline Phosphatase 110 39 - 117 U/L [facility] Blood Venous blood specimen / Unknown 09/25/2024 1:22 PM EST 09/25/2024 4:00 PM EST us Debbie Madera NP LAB BLOOD ORDERABLES Final Resul t [facility] [address] [place], [place] [phone] * CBC auto differential (09/25/2024 1:22 PM EST) Pathologist [facility] White Blood Count 7.7 4.8 - 10.8 X10*3/uL [facility] Red Blood Count 4.60 4.20 - 5.50 X10*6/uL [facility] Hemoglobin 12.9 12.0 - 16.0 g/dl [facility] Hematocrit 39.4 37.0 - 47.0 % [facility] Mean Corpuscular Volume 85.7 80.0 - 98.0 fL [facility] Mean Corpuscular Hemoglobin 28.0 27.0 - 33.0 pg [facility] Mean Corpuscular HGB Conc 32.7 31.0 - 35.0 g/dl [facility] Red Cell Distribution Width 12.9 11.0 - 16.0 % [facility] Platelet Count 252 160 - 400 X10*3/uL [facility] Mean Platelet Volume 11.1 9.4 - 12.3 fL [facility] Neutrophils Percent Auto 58.7 45 - 73 % [facility] Imm Gran Pct Auto 0.4 0.0 - 0.4 % [facility] Lymphocytes Percent Auto 32.7 20 - 40 % [facility] Monocytes Percent Auto 6.2 2 - 11 % [facility] Eosinophils Percent Auto 1.7 0 - 4 % [facility] Basophils Percent Auto 0.3 0 - 2 % [facility] NRBC Pct Auto 0.0 0.0 - 0.2 /100WBC [facility] Neutrophils Absolute Auto 4.5 2.0 - 8.3 x10*3/uL [facility] Imm Gran Abs Auto 0.03 0.00 - 0.03 X10*3/uL [facility] Lymphocytes Absolute Auto 2.5 1.2 - 4.9 X10*3/uL [facility] Monocytes Absolute Auto 0.5 0.1 - 1.2 X10*3/uL [facility] Eosinophils Absolute Auto 0.1 0.0 - 0.4 X10*3/uL [facility] Basophils Absolute Auto 0.0 0.0 - 0.2 X10*3/uL [facility] NRBC Abs Auto 0.000 0.0 - 0.012 X10*3/uL [facility] Blood Venous blood specimen / Unknown 09/25/2024 1:22 PM EST 09/25/2024 4:00 PM EST us Debbie Madera PUBLIC SAFETY DIRECTOR LAB BLOOD ORDERABLES Final Resul t Performing Organization Address [facility] Co de Phone Number [facility] [address] [place] [phone] * TSH W/Reflex to FT4 (09/25/2024 1:22 PM EST) TSH reflex Free T4 1.57 0.32 - 4.0 uIU/mL [facility] Blood Venous blood specimen / Unknown 09/25/2024 1:22 PM EST 09/25/2024 4:00 PM EST us Debbie Madera PUBLIC SAFETY DIRECTOR LAB BLOOD ORDERABLES Final Resul t Performing Organization Address [facility] de Phone Number [facility] [address] [place] [phone] documented in this encounter Visit Diagnoses [...] as of this encounter Care Teams House Worker Relationship Specialty Start Date End Date Yecenia Frias FNP [address] [place] [address] PCP - General Family Medicine 04/26/24 Colby Hirsch FNP Nurse Practitioner Family Medicine 07/13/23 Candice Ugarte Evs AttendantFront Desk Assistant 12/27/23 documented as of this encounter
--- OUTSIDE RECORDS SUMMARY | 2024-10-23 16:47 | XMS_ITS | Encounter Summary ---
Author Organization [employer] Address 75 [facility] 7t [place] [address] Care Team Providers Care Stave Saw Operator Name Role Phone Colby Hirsch RE EXAMINER Unavailable Unavailable [facility] Primary Care Provider [phone] Reason for Visit * Reason Comments Med Refill Encounter Details Date Type Department Care Team (Late st Contact Info) Description 10/11/2024 Refill [facility] MEDICINE [address] [place], [place] [phone] [facility] [address] [place] [address] Arthralgia, unspecified joint Social History Tobacco Use [...] Description 10/24/2024 1:00 PM EST Clinical Support [facility] MEDICINE [address] [place] [address] Kira Bansal RN documented as of this encounter Visit Diagnoses Diagnosis Arthralgia, unspecified joint documented in this encounter Additional Health Concerns Assessment Noted Time PHQ-9 Depression Total Score: 7 03/07/20 24 10:13 AM EDT documented as of this encounter Care Teams Stave Saw Operator Relationship Specialty Start Date End Date Yecenia Frias FNP [address] [place] [address] PCP - General Family Medicine 04/26/24 Colby Hirsch FNP Nurse Practitioner Family Medicine 07/13/23 Candice Ugarte Bulb GrowerFlanging Roll Operator 12/27/23 documented as of this encounter
--- OUTSIDE RECORDS SUMMARY | 2024-10-23 16:47 | XMS_ITS | Encounter Summary ---
Author Organization [employer] Address 75 [facility] 7t [place] [address] Care Team Providers Care Billiard Player Name Role Phone Radha Shah EAR MACHINE OPERATOR Primary Care Provider [phone] Colby Hirsch EAR MACHINE OPERATOR Unavailable Unavailable [facility] EAR MACHINE OPERATOR Primary Care Provider [phone] Reason for Visit * Reason Comments Med Refill Encounter Details Date Type Department Care Team (Late st Contact Info) Description 06/16/2023 Refill [facility] MEDICINE [address] [place] [address] Marc Nicolas AGNP Pain Social History Tobacco [...] Description 10/24/2024 1:00 PM EST Clinical Support [facility] MEDICINE [address] [place] [address] Kira Bansal RN documented as of this encounter Visit Diagnoses Diagnosis Pain Generalized pain documented in this encounter Additional Health Concerns Assessment Noted Time PHQ-9 Depression Total Score: 6 06/15/20 10:23 AM EDT documented as of this encounter Care Teams Billiard Player Relationship Specialty Start Date End Date Radha Shah FNP [address] [place] [address] PCP - General Family Medicine 04/21/23 04/25/24 [place]ranton[place]ecenia FNP [address] [place] [address] PCP - General Family Medicine 04/26/24 Colby Hirsch FNP [address] [place] [address] Nurse Practitioner Family Medicine 07/13/23 Candice Ugarte Hoop PuncherTransfer Man 12/27/23 documented as of this encounter
--- OUTSIDE RECORDS SUMMARY | 2024-10-23 16:47 | XMS_ITS | Encounter Summary ---
Author Organization [employer] Address 75 [facility] 7t [place] [address] Care Team Providers Care Forensic Anthropologist Name Role Phone Colby Hirsch REWARDS CONSULTANT Unavailable Unavailable [facility] REWARDS CONSULTANT Primary Care Provider [phone] Encounter Details Date Type Department Care Team (Late st Contact Info) Description 09/26/2024 5:00 PM EST Office Visit [facility] [address] [place] [address] Quin Victoria MD [address] [place] [address] Cellulitis of face (Primary Dx); Hordeolum externum [...] Description 10/24/2024 1:00 PM EST Clinical Support [address] [address] Kira Bansal, MEREDITH documented as of this encounter Visit Diagnoses Diagnosis Cellulitis of face- Primary Cellulitis and abscess of face Hordeolum externum of left lower eyelid documented in this encounter Additional Health Concerns Assessment Noted Time PHQ-9 Depression Total Score: 7 03/07/20 24 10:13 AM EDT documented as of this encounter Care Teams Forensic Anthropologist Relationship Specialty Start Date End Date Yecenia Frias FNP [address] [place] [address] PCP - General Family Medicine 04/26/24 Colby Hirsch FNP Nurse Practitioner Family Medicine 07/13/23 Candice Ugarte Decision Support AnalystTechnician Support Association 12/27/23 documented as of this encounter
--- OUTSIDE RECORDS SUMMARY | 2024-10-23 16:47 | XMS_ITS | Encounter Summary ---
Author Organization [employer] Address 75 [facility] 7t [place] [address] Care Team Providers Care Client Care Representative Name Role Phone Colby Hirsch PSYCHOLOGY ASSISTANT Unavailable Unavailable [facility] PSYCHOLOGY ASSISTANT Primary Care Provider [phone] Encounter Details Date Type Department Care Team (Late st Contact Info) Description 09/26/[address] [facility] MEDICINE [address] [place], [place] [phone] Amy Almanza, MEREDITH Social History Tobacco Use [...] Tc to pt via s id: [id number] to let them know per PCP Please let pt know her labs were normal thank you pt verbalized understanding, reports they were seen at [facility] yesterday and reports their eye is swollen. Pt reports they have just been putting a damp cloth on their eye. Reviewed last ov note, nothing was documented regarding eye concerns advised pt to come to [facility] to be evaluated again. Ptverbalized understanding [...] Clinical Support [facility] MEDICINE [address] [place] [address] Kira Bansal, RN documented as of this encounter Visit Diagnoses Not on filedocumented in this encounter Additional Health Concerns Assessment Noted Time PHQ-9 Depression Total Score: 7 03/07/20 24 10:13 AM EDT documented as of this encounter Care Teams Client Care Representative Relationship Specialty Start Date End Date Yecenia Frias FNP 230 [facility] [place] [address] PCP - General Family Medicine 04/26/24 Colby Hirsch FNP Nurse Practitioner Family Medicine 07/13/23 Candice Ugarte Firmware DeveloperLoan Operations Manager 12/27/23 documented as of this encounter
--- OUTSIDE RECORDS SUMMARY | 2024-10-23 16:47 | XMS_ITS | Encounter Summary ---
Author Organization [employer] Address 75 [facility] 7[address] [place] [address] Care Team Providers Care Warehouse Production Worker Name Role Phone Colby Hirsch TRIMMING CASER Unavailable Unavailable [facility] Primary Care Provider [phone] Reason for Visit * Reason Onset Date Comments Nurse Triage 10/02/2024 Encounter Details Date Type Department Care Team ([facility] st Contact Info) Description 10/02/2024 Telephone [facility] MEDICINE [address] [place], [place] [phone] [facility] [address] [place] [address] Nurse Triage Social History Tobacco Use Types [...] with others, in a hotel, in a penitentiary, living outside on the street, on a [...] to Sacha Rodriguez to triage below. 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 Reports having sx onset yesterday. Reports having [...] Time Provider Department Center 10/02/2024 2:00 PM [facility] 10/12/2024 2:00 PM Phillip Borrego DMD [facility] DENT [facility] 10/23/2024 1:00 PM [facility] MEDICINE [facility] 10/24/2024 1:00 PM Kira Bansal RN MEDICINE [facility] Insurance verified as active per [employer] [...] become worse * Telephone Encounter - Hari Willoughbyyes - 10/02/2024 12:24 PM EST Symptoms: Fever, Cough, Headache, Earache, Cold Sores Outcome: Transfer to a nurse or provider NOW! Reason: Sudden worst headache of life now The caller accepted this outcome. documented in this encounter Plan of Treatment Upcoming Encounters Date Type Department Care Team (Late st Contact Info) Description 10/24/2024 1:00 PM EST Clinical Support [facility] MEDICINE [address] [place] [address] Kira Bansal RN documented as of this encounter Visit Diagnoses Not on filedocumented in this encounter Additional Health Concerns Assessment Noted Time PHQ-9 Depression Total Score: 7 03/07/20 24 10:13 AM EDT documented as of this encounter Care Teams Warehouse Production Worker Relationship Specialty Start Date End Date Yecenia Frias FNP [address] [place] [address] PCP - General Family Medicine 04/26/24 Colby Hirsch FNP Nurse Practitioner Family Medicine 07/13/23 Candice Ugarte Presales Senior SpecialistWashery Boss 12/27/23 documented as of this encounter
--- OUTSIDE RECORDS SUMMARY | 2024-10-23 16:47 | XMS_ITS | Encounter Summary ---
Author Organization [employer] Address 75 [facility] 7t [place] [address] Care Team Providers Care Door Core Assembler Name Role Phone Radha Shah SKEIN WASHER Primary Care Provider [phone] Colby Hirsch SKEIN WASHER Unavailable Unavailable [facility] SKEIN WASHER Primary Care Provider [phone] Reason for Visit * Reason Onset Date Comments telephone call 10/29/2023 Encounter Details Date Type Department Care Team (Late st Contact Info) Description 10/29/2023 Refill [facility] MEDICINE [address] [place] [address] Radha Shah FNP [address] [place] [address] Multiple joint pain Social History Tobacco Use [...] does not remember the program name. A endless steamer tender from the program told her that if she still want to be in the program she needs a referral from PCP. Please call patient with any concern or questions. * Telephone Encounter - Celine Pate - 11/12/2023 9:46 AM EDT Patient walked in requesting a referral for a program. Patient does not remember the program name. A endless steamer tender from the program told her that if she still want to be in the program she needs a referral from PCP. Please call patient with any concern or questions. documented in this encounter Plan of Treatment Upcoming Encounters Date Type Department Care Team (Late st Contact Info) Description 10/24/2024 1:00 PM EST Clinical Support [facility] MED[facility]INE [address] [place] [address] Kira Bansal RN documented as of this encounter Visit Diagnoses Diagnosis Multiple joint pain Pain in joint, multiple sites documented in this encounter Additional Health Concerns Assessment Noted Time PHQ-9 Depression Total Score: 8 09/02/19 11:12 AM EST documented as of this encounter Care Teams Door Core Assembler Relationship Specialty Start Date End Date Radha Shah FNP [address] [place] [address] PCP - General Family Medicine 04/21/23 04/25/24 [place] whipple FNP [address] [place] [address] PCP - General Family Medicine 04/26/24 Colby Hirsch FNP [address] [place] [address] Nurse Practitioner Family Medicine 07/13/23 Candice Ugarte [facility] Nurse PractitionerCanned Food Reconditioning Inspector 12/27/23 documented as of this encounter
--- OUTSIDE RECORDS SUMMARY | 2024-10-23 16:47 | XMS_ITS ---
Author Organization [facility] Address [address] [place] [address] Care Team Providers Care Director Data Management Name Role Phone Radha Rodriguez Primary Care Provider Unavaila Jaylan Alaniz Unavailable [phone] REASON FOR VISIT Patient presents today for FATTY LIVER Encounters Encounter Location Date Provider Diagnosis [facility] [address] [place] [address] 06/20/2024 Jaylan Neal PLAN OF TREATMENT No Information
--- OUTSIDE RECORDS SUMMARY | 2024-10-23 16:47 | XMS_ITS | Encounter Summary ---
Author Organization [employer] Address [address] [facility] 7t [place] [address] Care Team Providers Care Defensive Line Coach Name Role Phone Colby Hirsch TUBER MACHINE CUTTER Unavailable Unavailable [facility] TUBER MACHINE CUTTER Primary Care Provider [phone] Reason for Visit * Reason Comments Med Refill Encounter Details Date Type Department Care Team (Late st Contact Info) Description 09/25/2024 Refill [facility] MED & PEDS [address] [place] [address] Radha Shah FNP [address] [place] [address] Social History Tobacco Use Types Packs/Day Years [...] Description 10/24/2024 1:00 PM EST Clinical Support [facility] MEDICINE [address] [place] [address] Kira Bansal RN documented as of this encounter Visit Diagnoses Not on filedocumented in this encounter Additional Health Concerns Assessment Noted Time PHQ-9 Depression Total Score: 7 03/07/20 24 10:13 AM EDT documented as of this encounter Care Teams Defensive Line Coach Relationship Specialty Start Date End Date Yecenia Frias FNP [address] [place] [address] PCP - General Family Medicine 04/26/24 Colby Hirsch FNP Nurse Practitioner Family Medicine 07/13/23 Candice Ugarte Health Management ConsultantManager Recovery 12/27/23 documented as of this encounter
--- OUTSIDE RECORDS SUMMARY | 2024-10-23 16:47 | XMS_ITS | Encounter Summary ---
Author Organization [employer] Address 75 [facility] 7t [place] [address] Care Team Providers Care Electrical Design Technician Name Role Phone Radha Shah HOME DEPOT REP Primary Care Provider [phone] Colby Hirsch Unavailable Unavailable [facility] Primary Care Provider [phone] Reason for Visit * Reason Comments Med Refill Encounter Details Date Type Department Care Team (Late st Contact Info) Description 04/12/2024 Refill [facility] MEDICINE [address] [place] [address] Radha Shah FNP [address] [place] [address] Multiple joint pain Social History Tobacco Use [...] Description 10/24/2024 1:00 PM EST Clinical Support [facility] MEDICINE [address] [place] [address] Kira Bansal, MEREDITH documented as of this encounter Visit Diagnoses Diagnosis Multiple joint pain Pain in joint, multiple sites documented in this encounter Additional Health Concerns Assessment Noted Time PHQ-9 Depression Total Score: 7 03/07/20 24 10:13 AM EDT documented as of this encounter Care Teams Electrical Design Technician Relationship Specialty Start Date End Date Radha Shah FNP [address] [place] [address] PCP - General Family Medicine 04/21/23 04/25/24 [place] F[place] [address] [place] [address] PCP - General Family Medicine 04/26/24 Colby Hirsch FNP [address] [place] [address] Nurse Practitioner Family Medicine 07/13/23 Candice Ugarte Fire Sprinkler InstallerWaste Recycler 12/27/23 documented as of this encounter
--- OUTSIDE RECORDS SUMMARY | 2024-10-23 16:47 | XMS_ITS | Encounter Summary ---
Author Organization [employer] Address 75 [facility] [address] [place] [address] Care Team Providers Care Children'S Tutor Name Role Phone Marc Nicolas Primary Care Provider Unavail able Radha Shah DIGITAL IMAGER Primary Care Provider [phone] Colby Hirsch Unavailable Unavailable [facility] DIGITAL IMAGER Primary Care Provider [phone] Reason for Visit * Reason Comments Med Refill Encounter Details Date Type Department Care Team (Late st Contact Info) Description 04/08/2023 Refill [facility] MEDICINE [address] [place], [place] [phone] Marc Nicolas AGNP Schizoaffective disorder, depressive type [...] 10/24/2024 1:00 PM EST Clinical Support [facility] MEDICINE [address] [place] [address] Kira Bansal RN documented as of this encounter Visit Diagnoses Diagnosis Schizoaffective disorder, depressive type (CMS/HCC) Schizoaffective disorder, unspecified condition Mixed anxiety and depressive disorder Dysthymic disorder documented in this encounter Additional Health Concerns Assessment Noted Time PHQ-9 Depression Total Score: 0 04/02/20 23 2:10 PM EDT documented as of this encounter Care Teams Children'S Tutor Relationship Specialty Start Date End Date Marc Nicolas AGNP PCP - General Family Medicine 10/22/22 04/20/23 Radha Shah FNP [address] [place] [address] PCP - General Family Medicine 04/21/23 04/25/24 Yecenia Frias FNP [address] [place] [address] PCP - General Family Medicine 04/26/24 Colby Hirsch FNP [address] [place] [address] Nurse Practitioner Family Medicine 07/13/23 Candice Ugarte Conditioning Room WorkerEmployee Relation Manager 12/27/23 documented as of this encounter
--- OUTSIDE RECORDS SUMMARY | 2024-10-23 16:47 | XMS_ITS | Encounter Summary ---
Author Organization [facility] [facility] Address 75 [facility] 7t [place] [address] Care Team Providers Care Toy Stuffer Name Role Phone Marc Nicolas Primary Care Provider Unavail able Radha Shah TRANSFER AND PUMPHOUSE OPERATOR CHIEF Primary Care Provider [phone] Colby Hirsch Unavailable Unavailable [facility] TRANSFER AND PUMPHOUSE OPERATOR CHIEF Primary Care Provider [phone] Reason for Visit * Reason Comments Med Refill Encounter Details Date Type Department Care Team (Late Contact Info) Description 04/08/2023 Refill [facility] MEDICINE [address] [place] [address] Marc Nicolas AGNP Mixed anxiety and depressive [...] Department Care Team (Late Contact Info) Description 10/24/2024 1:00 PM EST Clinical Support [facility] MEDICINE [address] [place], [place] [phone] Kira Bansal RN documented as of this encounter Visit Diagnoses Diagnosis Mixed anxiety and depressive disorder Dysthymic disorder documented in this encounter Additional Health Concerns Assessment Noted Time PHQ-9 Depression Total Score: 0 04/02/20 2:10 PM EDT documented as of this encounter Care Teams Toy Stuffer Relationship Specialty Start Date End Date Marc Nicolas AGNP PCP - General Family Medicine 10/22/22 04/20/23 Radha Shah FNP [address] [place] [address] PCP - General Family Medicine 04/21/23 04/25/24 [place] F[place] [address] [place] [address] PCP - General Family Medicine 04/26/24 Colby Hirsch FNP [address] [place] [address] Nurse Practitioner Family Medicine 07/13/23 Candice Ugarte Singing Waiter Or WaitressTest Fixture Designer 12/27/23 documented as of this encounter
--- OUTSIDE RECORDS SUMMARY | 2024-10-23 16:47 | XMS_ITS | Encounter Summary ---
Author Organization [employer] Address 75 [facility] 7t [place] [address] Care Team Providers Care Electronics Warfare Technician Name Role Phone Colby Hirsch PUBLIC HEALTH EDUCATOR Unavailable Unavailable [facility] PUBLIC HEALTH EDUCATOR Primary Care Provider [phone] Encounter Details Date Type Department Care Team [...] t he electric, gas, oil or water [employer] threatened to shut off services in your [...] Description 10/24/2024 1:00 PM EST Clinical Support [facility] MEDICINE [address] [place] [address] Kira Bansal RN documented as of this encounter Visit Diagnoses Not on filedocumented in this encounter Additional Health Concerns Assessment Noted Time PHQ-9 Depression Total Score: 7 03/07/20 24 10:13 AM EDT documented as of this encounter Care Teams Electronics Warfare Technician Relationship Specialty Start Date End Date Yecenia Frias FNP [address] [place] [address] PCP - General Family Medicine 04/26/24 Colby Hirsch FNP Nurse Practitioner Family Medicine 07/13/23 Candice Ugarte Light Equipment OperatorLearning And Development Specialist 12/27/23 documented as of this encounter
--- OUTSIDE RECORDS SUMMARY | 2024-10-23 16:47 | XMS_ITS | Encounter Summary ---
Author Organization [employer] Address 75 [facility] 7t [place] [address] Care Team Providers Care Accounts Receivable Coordinator Name Role Phone Marc Nicolas Primary Care Provider Unavail able Radha Shah MANAGER SALT Primary Care Provider [phone] Colby Hirsch Unavailable Unavailable [facility] MANAGER SALT Primary Care Provider Reason for Visit * Reason Onset Date Comments Results 04/09/2023 Encounter Details Date Type Department Care Team (Late st Contact Info) Description 04/09/2023 Telephone [facility] MEDICINE [address] [place] [address] Marc Nicolas AGNP Results Social History Tobacco [...] AM EDT FYI T/C to pt. Through DoNanza id - [id number] for below message. Pt. States she is having apt. With Dr. Sims on 05/03/2023 and wants to discuss on that day. Pt. Advised to give call back on [phone] if any questions or concerns. Pt. Verbally agreed and understood. Please review and advise if needed. * Telephone Encounter - Romeo Child - 04/09/2023 12:19 PM EDT Tc from pt requesting status on results for Liver that were done a moth ago pt states. Please contact pt at [phone] Pashto Speaker documented in this encounter Plan of Treatment Upcoming Encounters Date Type Department Care Team (Late st Contact Info) Description 10/24/2024 1:00 PM EST Clinical Support [facility] MEDICINE [address] [place] [address] Kira Bansal RN documented as of this encounter Visit Diagnoses Not on filedocumented in this encounter Additional Health Concerns Assessment Noted Time PHQ-9 Depression Total Score: 0 04/02/20 2:10 PM EDT documented as of this encounter Care Teams Accounts Receivable Coordinator Relationship Specialty Start Date End Date Marc Nicolas AGNP PCP - General Family Medicine 10/22/22 04/20/23 Radha Shah FNP [address] [place] [address] PCP - General Family Medicine 04/21/23 04/25/24 [place] F[place] [address] [place] [address] PCP - General Family Medicine 04/26/24 Colby Hirsch FNP [address] [place] [address] Nurse Practitioner Family Medicine 07/13/23 Candice Ugarte Research ChefPrint Line Feeder 12/27/23 documented as of this encounter
--- OUTSIDE RECORDS SUMMARY | 2024-10-23 16:47 | XMS_ITS | Encounter Summary ---
Author Organization [employer] Address 75 [facility] 7t [place] [address] Care Team Providers Care Paver Operator Name Role Phone Colby Hirsch AUTO SERVICER Unavailable Unavailable [facility] Primary Care Provider [phone] Reason for Visit * Reason Comments Med Refill Encounter Details Date Type Department Care Team (Late st Contact Info) Description 10/01/2024 Refill [facility] MEDICINE [address] [place] [address] Radha Shah FNP [address] [place] [address] Social History Tobacco Use Types Packs/Day Years [...] [facility] [address] [place] [address] Kira Bansal RN documented as of this encounter Visit Diagnoses Not on filedocumented in this encounter Additional Health Concerns Assessment Noted Time PHQ-9 Depression Total Score: 7 03/07/20 24 10:13 AM EDT documented as of this encounter Care Teams Paver Operator Relationship Specialty Start Date End Date Yecenia Frias FNP [address] [place] [address] PCP - General Family Medicine 04/26/24 Colby Hirsch FNP Nurse Practitioner Family Medicine 07/13/23 Candice Ugarte Press Clippings Cutter And PasterBagman/Woman 12/27/23 documented as of this encounter
--- OUTSIDE RECORDS SUMMARY | 2024-10-23 16:47 | XMS_ITS | Encounter Summary ---
Author Organization [employer] Address 75 [facility] 7t [place] [address] Care Team Providers Care Forge Hand Name Role Phone Radha Shah [facility] Primary Care Provider [phone] Colby Hirsch FABRICATING MACHINE OPERATOR Unavailable Unavailable [facility] Primary Care Provider [phone] Reason for Visit * Reason Comments Med Refill Encounter Details Date Type Department Care Team (Late st Contact Info) Description 06/09/2023 Refill [facility] MEDICINE [address] [place] [address] Marilee Buckner FNP [address] [place] [address] Dept [place] [address] Multiple joint pain; Mixed anxiety and depressive [...] Description 10/24/2024 1:00 PM EST Clinical Support [facility] MEDICINE [address] [place] [address] Kira Bansal RN documented as of this encounter Visit Diagnoses Diagnosis Multiple joint pain Pain in joint, multiple sites Mixed anxiety and depressive disorder Dysthymic disorder documented in this encounter Additional Health Concerns Assessment Noted Time PHQ-9 Depression Total Score: 18 023 11:25 AM EDT documented as of this encounter Care Teams Forge Hand Relationship Specialty Start Date End Date Radha Shah FNP [address] [place] [address] PCP - General Family Medicine 04/21/23 04/25/24 [place] F[place] [address] [place] [address] PCP - General Family Medicine 04/26/24 Colby Hirsch FNP [address] [place] [address] Nurse Practitioner Family Medicine 07/13/23 Candice Ugarte Chain DyerChannel Development Manager 12/27/23 documented as of this encounter
--- OUTSIDE RECORDS SUMMARY | 2024-10-23 16:47 | XMS_ITS | Encounter Summary ---
Author Organization [employer] Address 75 [facility] 7t [place] [address] Care Team Providers Care Livestock Caretaker Name Role Phone Colby Hirsch JIRA DEVELOPER Unavailable Unavailable [facility] Primary Care Provider [phone] Reason for Visit * Reason Onset Date Comments FYI 06/23/2024 Encounter Details Date Type Department Care Team ([facility] Contact Info) Description 06/23/2024 Telephone [facility] MEDICINE [address] [place], [place] [phone] [facility] [address] [place] [address] FYI Social History Tobacco Use Types Packs/Day [...] 9:36 AM EDT Tc from Maribel at [facility] calling inform provider pt cancelled appointment with did not want to r/s. If any questions contact Maribel at [phone] documented in this encounter Plan of Treatment Upcoming Encounters Date Type Department Care Team (Late st Contact Info) Description 10/24/2024 1:00 PM EST Clinical Support [facility] [address] [place] [address] Kira Bansal RN documented as of this encounter Visit Diagnoses Not on filedocumented in this encounter Additional Health Concerns Assessment Noted Time PHQ-9 Depression Total Score: 7 03/07/20 24 10:13 AM EDT documented as of this encounter Care Teams Livestock Caretaker Relationship Specialty Start Date End Date Yecenia Frias FNP [address] [place] [address] PCP - General Family Medicine 04/26/24 Colby Hirsch FNP Nurse Practitioner Family Medicine 07/13/23 Candice Ugarte Groundwater Monitoring TechnicianDental Technician 12/27/23 documented as of this encounter
--- OUTSIDE RECORDS SUMMARY | 2024-10-23 16:47 | XMS_ITS | Encounter Summary ---
Author Organization [employer] Address 75 [facility] 7t [place] [address] Care Team Providers Care Sales Representative Metals Name Role Phone Radha Shah NET MANAGER Primary Care Provider [phone] Colby Hirsch Unavailable Unavailable [facility] NET MANAGER Primary Care Provider Encounter Details Date Type Department Care Team (Late st Contact Info) Description 10/29/2023 Orders Only [facility] CHC MED & PEDS [address] [place] [address] Radha Shah FNP [address] [place] [address] Social History Tobacco Use Types Packs/Day Years [...] Description 10/24/2024 1:00 PM EST Clinical Support [facility] MEDICINE [address] [place] [address] Kira Bansal RN documented as of this encounter Visit Diagnoses Not on filedocumented in this encounter Additional Health Concerns Assessment Noted Time PHQ-9 Depression Total Score: 8 09/02/19 24 11:12 AM EST documented as of this encounter Care Teams Sales Representative Metals Relationship Specialty Start Date End Date Radha Shah FNP [address] [place] [address] PCP - General Family Medicine 04/21/23 04/25/24 [place] whipple FNP [address] [place] [address] PCP - General Family Medicine 04/26/24 Colby Hirsch FNP [address] [place] [address] Nurse Practitioner Family Medicine 07/13/23 Candice Ugarte Telemarketing Sales RepresentativeTemplate Fitter 12/27/23 documented as of this encounter
--- OUTSIDE RECORDS SUMMARY | 2024-10-23 16:47 | XMS_ITS | Encounter Summary ---
Author Organization [employer] Address 75 [facility] 7t [place] [address] Care Team Providers Care Rn Cvor Name Role Phone Radha Shah MIXER TENDER Primary Care Provider [phone] Colby Hirsch MIXER TENDER Unavailable Unavailable [facility] MIXER TENDER Primary Care Provider [phone] Encounter Details Date Type Department Care Team (Late st Contact Info) Description 04/24/[address] [facility] CHC MED & PEDS [address] [place] [address] Radha Shah FNP [address] [place] [address] Elevated lipids (Primary Dx) Social History Tobacco [...] Description 10/24/2024 1:00 PM EST Clinical Support [address] [address] Kira Bansal, MEREDITH documented as of this encounter Procedures Procedure Name Priority Date/Time Associated Diagnosis Comments LIPID PANEL, STANDARD Routine 05/12/2024 11:00 AM EDT Elevated lipids documented in this encounter Results * (ABNORMAL) Lipid Panel, Standard (05/12/2024 11:00 AM EDT) Triglycerides 100 <150 mg/dL [facility] Comment:Desirable Triglyceri de: less than 150 mg/dLBorderline High Triglyceride 150-199 mg/dLHigh Triglyceride: 200-499 mg/dLVery High Triglyceride: greater than or equal to 5OO mg/dL Cholesterol 101 <200 mg/dL [facility] Comment:Desirable Cholestero l: less than 200 mg/dLBorderline High Cholesterol: 200-239 mg/dLHigh Cholesterol: greater than 239 mg/dL LDL Cholesterol Calculated 44 <100 mg/dL [facility] Comment:Desirable LDL: less than 100 mg/dLNear Optimal/Above Optimal LDL: 110- 129 mg/dLBorderline High LDL: 130-159 mg/dLHigh LDL: 160-189 mg/dLVery High LDL: greater than or equal to 190 mg/dL HDL Cholesterol 37(L) >40 mg/dL [facility] Comment:Desirable HDL: great er than 40 mg/dL Note: This HDL assay may give artificially low results in patients with liver disease. Blood Venous blood specimen / Unknown 05/12/2024 11:00 AM EDT 05/12/2024 11:00 AM EDT Radha CASEY LAB BLOOD ORDERABLES Final Resu lt [facility] [address] [place] [address] [phone] documented in this encounter Visit Diagnoses Diagnosis Elevated lipids- Primary documented in this encounter Additional Health Concerns Assessment Noted Time PHQ-9 Depression Total Score: 7 03/07/20 24 10:13 AM EDT documented as of this encounter Care Teams Rn Cvor Relationship Specialty Start Date End Date Radha Shah FNP [address] [place] [address] PCP - General Family Medicine 04/21/23 04/25/24 Yecenia Frias FNP [address] [place] [address] PCP - General Family Medicine 04/26/24 Colby Hirsch FNP [address] [place] [address] Nurse Practitioner Family Medicine 07/13/23 Candice Ugarte Disability CounselorHuman Resources Project Manager 12/27/23 documented as of this encounter
--- OUTSIDE RECORDS SUMMARY | 2024-10-23 16:47 | XMS_ITS | Encounter Summary ---
Author Organization [employer] Address 75 [facility] [place], [place] [address] Care Team Providers Care Vamper Name Role Phone Colby Hirsch INSURANCE BILLER Unavailable Unavailable [facility] Primary Care Provider [phone] Reason for Visit * Reason Onset Date Comments Med Refill Refill not due until 10/12/24 10/02/2024 Encounter Details Date Type Department Care Team (Late st Contact Info) Description 10/02/2024 Refill [facility] [address] [place] [address] [facility] [address] [place] [address] Multiple joint pain Social History Tobacco Use [...] RN - 10/02/2024 2:28 PM EST Per [facility], Tramadol last picked up up 09/14/24. Refill not due until 10/12/24. Will forward to PCP on 10/10/24. Spoke with [facility] pharmacy who also confirmed Tramadol was last picked up 09/14/24. TC to patient, patient notified of date refill is due which is 10/12/24. documented in this encounter Plan of Treatment Upcoming Encounters Date Type Department Care Team (Late st Contact Info) Description 10/24/2024 1:00 PM EST Clinical Support [facility] [address] [place] [address] Kira Bansal RN documented as of this encounter Visit Diagnoses Diagnosis Multiple joint pain Pain in joint, multiple sites documented in this encounter Additional Health Concerns Assessment Noted Time PHQ-9 Depression Total Score: 7 03/07/20 10:13 AM EDT documented as of this encounter Care Teams Vamper Relationship Specialty Start Date End Date Yecenia Frias FNP [address] [place] [address] PCP - General Family Medicine 04/26/24 Colby Hirsch FNP Nurse Practitioner Family Medicine 07/13/23 Candice Ugarte Certified Tower ClimberSoftware Quality Tester 12/27/23 documented as of this encounter
--- OUTSIDE RECORDS SUMMARY | 2024-10-23 16:47 | XMS_ITS | Encounter Summary ---
Author Organization [email or web address] Address 75 [facility] 7t [place] [address] Care Team Providers Care Automobile Mechanic Apprentice Name Role Phone Radha Shah LOCOMOTIVE PIPE FITTER Primary Care Provider [phone] Colby Hirsch Unavailable Unavailable [facility] Primary Care Provider [phone] Reason for Visit * Reason Comments Med Refill Encounter Details Date Type Department Care Team (Late st Contact Info) Description 07/02/[address] [facility] MED[facility]INE [address] [place] [address] Radha Shah FNP [address] [place] [address] Multiple joint pain Social History Tobacco Use [...] PM EST Clinical Support [facility]INE [address] [place] [address] Kira Bansal RN documented as of this encounter Visit Diagnoses Diagnosis Multiple joint pain Pain in joint, multiple sites documented in this encounter Additional Health Concerns Assessment Noted Time PHQ-9 Depression Total Score: 6 06/15/20 23 10:23 AM EDT documented as of this encounter Care Teams Automobile Mechanic Apprentice Relationship Specialty Start Date End Date Radha Shah FNP [address] [place] [address] PCP - General Family Medicine 04/21/23 04/25/24 SpicelandYecenia FNP [address] [place] [address] PCP - General Family Medicine 04/26/24 Colby Hirsch FNP [address] [place] [address] Nurse Practitioner Family Medicine 07/13/23 Candice Ugarte Commissioner Of OfficialsMiddle School Counselor 12/27/23 documented as of this encounter
--- OUTSIDE RECORDS SUMMARY | 2024-10-23 16:47 | XMS_ITS | Encounter Summary ---
Author Organization [employer] Address 75 [facility] 7t [place] [address] Care Team Providers Care Tiller Man Name Role Phone Marc Nicolas Primary Care Provider Unavail able Radha Shah Primary Care Provider [phone] Colby Hirsch Unavailable Unavailable [facility] BATH MIXER Primary Care Provider [phone] Reason for Visit * Reason Onset Date Comments Med Refill 04/09/2023 Encounter Details Date Type Department Care Team (Late st Contact Info) Description 04/09/2023 Refill [facility] MEDICINE [address] [place] [address] Marc Nicolas AGNP Mixed anxiety and depressive [...] listed in EHR, no record. Spoke with [facility] pharmacy, she is listed as [...] (KlonoPIN) 0.5 MG tablet Please sent to [facility] - [place], [place] - [address] [facility] documented in this encounter Plan of Treatment Upcoming Encounters Date Type Department Care Team (Late st Contact Info) Description 10/24/2024 1:00 PM EST Clinical Support [facility] MEDICINE [address] [place] [address] Kira Bansal, MEREDITH documented as of this encounter Visit Diagnoses Diagnosis Mixed anxiety and depressive disorder Dysthymic disorder documented in this encounter Additional Health Concerns Assessment Noted Time PHQ-9 Depression Total Score: 0 04/02/20 23 2:10 PM EDT documented as of this encounter Care Teams Tiller Man Relationship Specialty Start Date End Date Marc Nicolas AGNP PCP - General Family Medicine 10/22/22 04/20/23 Radha Shah FNP [address] [place] [address] PCP - General Family Medicine 04/21/23 04/25/24 Yecenia Frias FNP 230 [place] [address] PCP - General Family Medicine 04/26/24 Colby Hirsch FNP [address] [place] [address] Nurse Practitioner Family Medicine 07/13/23 Candice Ugarte Health Care Sanitary TechnicianFormulator Compounder 12/27/23 documented as of this encounter
--- OUTSIDE RECORDS SUMMARY | 2024-10-23 16:47 | XMS_ITS | Encounter Summary ---
Author Organization [employer] Address 75 [facility] 7t [place] [address] Care Team Providers Care Deputy Building Guard Name Role Phone Radha Shah REDIPPER Primary Care Provider [phone] Colby Hirsch REDIPPER Unavailable Unavailable [facility] REDIPPER Primary Care Provider [phone] Reason for Visit * Reason Comments Med Refill Encounter Details Date Type Department Care Team (Late st Contact Info) Description 06/28/2023 Refill [facility] [address] [place] [address] Radha Shah FNP [address] [place] [address] Schizoaffective disorder, depressive type (CMS/HCC) Social History [...] Description 10/24/2024 1:00 PM EST Clinical Support [facility] [address] [place] [address] Kira Bansal RN documented as of this encounter Visit Diagnoses Diagnosis Schizoaffective disorder, depressive type (CMS/HCC) Schizoaffective disorder, unspecified condition documented in this encounter Additional Health Concerns Assessment Noted Time PHQ-9 Depression Total Score: 6 06/15/20 23 10:23 AM EDT documented as of this encounter Care Teams Deputy Building Guard Relationship Specialty Start Date End Date Radha Shah FNP [address] [place] [address] PCP - General Family Medicine 04/21/23 04/25/24 EastonYecenia FNP [address] [place] [address] PCP - General Family Medicine 04/26/24 Colby Hirsch FNP [address] [place] [address] Nurse Practitioner Family Medicine 07/13/23 Candice Ugarte WeederScuba Dive Training Instructor 12/27/23 documented as of this encounter
--- OUTSIDE RECORDS SUMMARY | 2024-10-23 16:47 | XMS_ITS | Encounter Summary ---
Author Organization [email or web address] Address 75 [facility] 7t [place] [address] Care Team Providers Care Weight Loss Sales Consultant Name Role Phone Colby Hirsch SECURITIES UNDERWRITER Unavailable Unavailable [facility] SECURITIES UNDERWRITER Primary Care Provider [phone] Encounter Details Date Type Department Care Team (Late st Contact Info) Description 10/12/2024 Orders Only [facility] MED[facility]INE [address] [place] [address] Bethany Bond MD [address] [place] [address] Urinary tract infection symptoms (Primary Dx) Social History Tobacco Use Types [...] [facility] [address] [place] [address] Kira Bansal RN documented as of this encounter Visit Diagnoses Diagnosis Urinary tract infection symptoms- Primary documented in this encounter Additional Health Concerns Assessment Noted Time PHQ-9 Depression Total Score: 7 03/07/20 24 10:13 AM EDT documented as of this encounter Care Teams Weight Loss Sales Consultant Relationship Specialty Start Date End Date Yecenia Frias FNP [address] [place] [address] PCP - General Family Medicine 04/26/24 Colby Hirsch FNP Nurse Practitioner Family Medicine 07/13/23 Candice Ugarte Audio Visual TechPlastic Cutter 12/27/23 documented as of this encounter
--- OUTSIDE RECORDS SUMMARY | 2024-10-23 16:47 | XMS_ITS | Patient Health Record ---
Author Organization [facility] Address [address] [place] [address] Care Team Providers Care Utility Lineman Name Role Phone Radha Rodriguez Primary Care Provider Jaylan Clancy Unavailable [phone] ALLERGIES Allergen (clinical drug ingredient) Drug/Non Drug [...] Referring Provider Last Name Pablo Referred Organization [facility] Referred Provider Jaylan Neal Referred Address [address] [facility],[address],[place], [place],[address], Referred Provider Specialty Gastroentero logy General Notes Please see if a [facility] referral is on file or needed for office visit with Dr. Neal on 06-20-2024. [facility] Ahsa smith Dawn 05/09/2024 07:44:46 AM EDT > eligible, needs referrral...Requested from [facility] Referral Priority Routine MEDICATIONS Medication SIG (Take, [...] DAILY Oral for 30 Active Vitamin A 75874 UNIT TAKE 1 CAPSULE BY M OUTH [...] Problem Epigastric abdominal pain (R10.13) Active confirmed 15716661 Problem Irritable bowel syndrome with diarrhea (K58.0) Active confirmed 385232824 Problem Elevated liver function tests (R79.89) Active confirmed Elevated liver enzymes level (992580947) Problem Fatty liver (K76.0) Active confirmed 19 2443451 Problem Gastroesophageal reflux disease, esophagitis presence not specified (K21.9) Active confirmed 147046654 Problem Abdominal pain, right upper quadrant (R10.11) Active confirmed 762136027 Encounters Encounter Location Date Provider Diagnosis [facility] [address] [place] [phone] 01/26/2024 Jaylan Neal [facility] [address] [place] [phone] 06/20/2024 Jaylan Neal [facility] [address] [place] [phone] 06/20/2024 [facility] [address] [place] [phone] 01/26/2024 Jaylan Neal [facility] [address] [place] [address] 06/16/2024 Jaylan Neal PLAN OF TREATMENT Pending Test Test Name Order Date BUN 12/29/2019 CREATININE 12/29/2019 LIVER PROFILE 02/04/2020 LIVER PROFILE 04/09/2020 LIVER PROFILE 12/29/2019 CBC w DIFF 12/29/2019 PROTHROMBIN TIME (PT, INR) 12/29/2019 [id number] (A1A) 12/29/2019 CAROTENE 12/29/2019 CERULOPLASMIN 12/29/2019 MITOCHONDRIAL [...] Start Date Coverage End Date MEDICAID OF [place] [address] [place] [phone] [id number] HARMAN LEUNG Self - patient is the insured MEDICAL (GENERAL) HISTORY Medical History History ICD Code Asthma Denies [place],CVA,renal disease Migraines Anxiety, depression, bipolar disease NIDDM [...]
--- OUTSIDE RECORDS SUMMARY | 2024-10-23 16:48 | XMS_ITS | Encounter Summary ---
Author Organization [employer] Address 75 [facility] 7t [place] [address] Care Team Providers Care Post Tensioning Ironworker Name Role Phone Radha Shah MOTOR ROUTE CARRIER Primary Care Provider [phone] Colby Hirsch Unavailable Unavailable [facility] MOTOR ROUTE CARRIER Primary Care Provider [phone] Encounter Details Date Type Department Care Team (Late st Contact Info) Description 03/08/2024 Orders Only [facility] MED & PEDS [address] [place] [address] Radha Shah FNP [address] [place] [address] Social History Tobacco Use Types Packs/Day Years [...] Description 10/24/2024 1:00 PM EST Clinical Support [facility] MED[facility] [address] [place] [address] Kira Bansal RN documented as of this encounter Visit Diagnoses Not on filedocumented in this encounter Additional Health Concerns Assessment Noted Time PHQ-9 Depression Total Score: 7 03/07/20 24 10:13 AM EDT documented as of this encounter Care Teams Post Tensioning Ironworker Relationship Specialty Start Date End Date Radha Shah FNP [address] [place] [address] PCP - General Family Medicine 04/21/23 04/25/24 WandaYecenia FNP [address] [place] [address] PCP - General Family Medicine 04/26/24 Colby Hirsch FNP [address] [place] [address] Nurse Practitioner Family Medicine 07/13/23 Candice Ugarte Rehab NursePipe Fitter Marine 12/27/23 documented as of this encounter
--- OUTSIDE RECORDS SUMMARY | 2024-10-23 16:48 | XMS_ITS | Encounter Summary ---
Author Organization [employer] Address 75 [facility] 7t [place] [address] Care Team Providers Care Sales Inspector Name Role Phone Colby Hirsch DELIVERY CONSULTANT Unavailable Unavailable [facility] DELIVERY CONSULTANT Primary Care Provider [phone] Encounter Details Date Type Department Care Team (Late st Contact Info) Description 10/20/2024 9:45 AM EST Office Visit [facility] [address] [place] [address] Glenn, Akila, OD [address] [place] [address] Regular astigmatism of both eyes (Primary Dx) Social History Tobacco Use Types [...] of this encounter Progress Notes * Akila Elizabeth OD - 10/20/2024 9:45 AM EST MH glasses were dispensed. documented in this encounter Plan of Treatment Upcoming Encounters Date Type Department Care Team (Late st Contact Info) Description 10/24/2024 1:00 PM EST Clinical Support [facility] MEDICINE [address] [place] [address] Kira Bansal RN documented as of this encounter Visit Diagnoses Diagnosis Regular astigmatism of both eyes- Primary documented in this encounter Additional Health Concerns Assessment Noted Time PHQ-9 Depression Total Score: 7 03/07/20 24 10:13 AM EDT documented as of this encounter Care Teams Sales Inspector Relationship Specialty Start Date End Date Yecenia Frias FNP [address] [place] [address] PCP - General Family Medicine 04/26/24 Colby Hirsch FNP Nurse Practitioner Family Medicine 07/13/23 Candice Ugarte Delivery TechSand Digger 12/27/23 documented as of this encounter
--- OUTSIDE RECORDS SUMMARY | 2024-10-23 16:48 | XMS_ITS | Encounter Summary ---
Author Organization [employer] Address 75 [facility] 7t [place] [address] Care Team Providers Care Patternmaker Apprentice Metal Name Role Phone Radha Shah FAMILY LAW PARALEGAL Primary Care Provider [phone] Colby Hirsch FAMILY LAW PARALEGAL Unavailable Unavailable [facility] FAMILY LAW PARALEGAL Primary Care Provider [phone] Reason for Visit * Reason Onset Date Comments Results 02/16/2024 Care Coordination 02/16/[address] Kelly joshua telephone call outreached Encounter Details Date Type Department Care Team ([facility] st Contact Info) Description 02/16/2024 Telephone [facility] MEDICINE [address] [place] [address] Radha Shah FNP [address] [place] [address] Results; Care Coordination ([id number] Obrien telephone call outreached) Social History Tobacco [...] results: labs Date when done: 02/06 Facility: [facility] Please contact pt at [phone] documented in this encounter Plan of Treatment Upcoming Encounters Date Type Department Care Team (Late st Contact Info) Description 10/24/2024 1:00 PM EST Clinical Support [facility] MEDICINE [address] [place] [address] Kira Bansal, RN documented as of this encounter Visit Diagnoses Not on filedocumented in this encounter Additional Health Concerns Assessment Noted Time PHQ-9 Depression Total Score: 6 12/28/19 24 11:17 AM EDT documented as of this encounter Care Teams Patternmaker Apprentice Metal Relationship Specialty Start Date End Date Radha Shah FNP [address] [place] [address] PCP - General Family Medicine 04/21/23 04/25/24 [place] Charles[facility]ecenia FNP [address] [place] [address] PCP - General Family Medicine 04/26/24 Colby Hirsch FNP [address] [place] [address] Nurse Practitioner Family Medicine 07/13/23 Candice Ugarte Pharmacy Intake TechnicianTier In 12/27/23 documented as of this encounter
--- OUTSIDE RECORDS SUMMARY | 2024-10-23 16:48 | XMS_ITS | Encounter Summary ---
Author Organization [employer] Address 75 [facility] 7 [place] [address] Care Team Providers Care Circular Knife Machine Cutter Name Role Phone Colby Hirsch HEAD OF DATA Unavailable Unavailable [facility] Primary Care Provider [phone] Reason for Visit * Reason Comments Follow-up Diabetes Encounter Details Date Type Department Care Team (Latest Contact Info) Description 10/23/2024 1:00 PM EST Office Visit [facility] MEDICINE [address] [place] [address] [facility] [address] [place] [address] Other polyneuropathy (Primary Dx); Type 2 diabetes mellitus without complication, with long-term current use of insulin ([facility]); Dietary counseling; Exercise counseling; Encounter for immunization Social History Tobacco Use Types Packs/Day Years [...] 20 10/23/2024 1:14 PM EST Oxygen Saturation - - Inhaled Oxygen Concentration - - Weight 78.5 kg (173 lb) 10/23/2024 1:14 PM EST Height 154.9 cm (5' 1 ) 10/23/2024 1:14 PM EST Body Mass Index 32.69 10/23/2024 1:14 PM EST documented in this encounter Plan of Treatment Upcoming Encounters Date Type Department Care Team (Late st Contact Info) Description 10/24/2024 1:00 PM EST Clinical Support [facility] MEDICINE [address] [place] [address] Kira Bansal, MEREDITH Scheduled Orders Name Type Priority Associated Diagnoses Orde r Schedule Vitamin B12/Folate, Serum Panel Lab Routine Other polyneuropathy Expected: 10/23/2024, Expires: 10/23/2025 TSH W/Reflex to FT4 Lab Routine Other polyneuropathy Expected: 10/23/2024 (Approximate), Expires: 10/23/2025 Ferritin Lab Routine Other polyneuropathy Expected: 10/23/2024 (Approximate), Expires: 10/23/2025 HIV-1/2 Antigen and Antibodies, Fourth Generation, with Reflexes Lab Routine Other polyneuropathy Expected: 10/23/2024 (Approximate), Expires: 10/23/2025 documented as of this encounter Procedures Procedure Name Priority Date/Time Associated Diagnosis Comments POCT GLUCOSE Routine 10/23/2024 1:17 PM EST Type 2 diabetes mellitus without complication, with long-term current use of insulin ([facility]) POCT GLYCATED HEMOGLOBIN, TOTAL Routine 10/23/2024 1:15 PM EST Type 2 diabetes mellitus without complication, with long-term current use of insulin ([facility]) documented in this encounter Results * POCT Glucose (10/23/2024 1:17 PM EST) Glucose Blood, POC 101 60 - 200 mg/dL Blood Capillary blood specimen / Unknown 10/23/2024 1:17 PM EST Result [facility] POINT OF CARE TEST ENTER/EDIT ORDERABLES Final Result * POCT HGB A1C (10/23/2024 1:15 PM EST) Hemoglobin A1C 5.7 4.0 - 6.0 % Blood 10/23/2024 1:15 PM EST [facility] POINT OF CARE TEST ENTER/EDIT ORDERABLES Final Result documented in this encounter Visit Diagnoses Diagnosis Other polyneuropathy- Primary Type 2 diabetes mellitus without complication, with long-term current use of insulin ([facility]) Dietary counseling Dietary surveillance and counseling Exercise counseling Encounter for immunization documented in this encounter Additional Health Concerns Assessment Noted Time PHQ-9 Depression Total Score: 0 10/24/19 25 1:15 PM EST documented as of this encounter Care Teams Circular Knife Machine Cutter Relationship Specialty Start Date End Date Yecenia Frias FNP [address] [place] [address] PCP - General Family Medicine 04/26/24 Colby Hirsch FNP Nurse Practitioner Family Medicine 07/13/23 Candice Ugarte Low Pressure FirerTop Precipitator Operator 12/27/23 documented as of this encounter
--- OUTSIDE RECORDS SUMMARY | 2024-10-23 16:48 | XMS_ITS | Encounter Summary ---
Author Organization [employer] Address 75 [facility] 7t [place] [address] Care Team Providers Care Prisoner Classification Interviewer Name Role Phone Radha Shah AIR BRAKE ADJUSTER Primary Care Provider [phone] Colby Hirsch Unavailable Unavailable [facility] Primary Care Provider [phone] Reason for Visit * Reason Comments Med Refill Encounter Details Date Type Department Care Team (Late st Contact Info) Description 02/16/2024 Refill [facility] MEDICINE [address] [place] [address] Radha Shah FNP [address] [place] [address] Multiple joint pain Social History Tobacco Use [...] 1:00 PM EST Clinical Support [facility]ICINE [address] [place] [address] Kira Bansal RN documented as of this encounter Visit Diagnoses Diagnosis Multiple joint pain Pain in joint, multiple sites documented in this encounter Additional Health Concerns Assessment Noted Time PHQ-9 Depression Total Score: 6 12/28/19 24 11:17 AM EDT documented as of this encounter Care Teams Prisoner Classification Interviewer Relationship Specialty Start Date End Date Radha Shah FNP [address] [place] [address] PCP - General Family Medicine 04/21/23 04/25/24 RichmondYecenia FNP [address] [place] [address] PCP - General Family Medicine 04/26/24 oClby Hirsch FNP [address] [place] [address] Nurse Practitioner Family Medicine 07/13/23 Candice Ugarte Miter SawyerMarket Sales Manager 12/27/23 documented as of this encounter
--- OUTSIDE RECORDS SUMMARY | 2024-10-23 16:48 | XMS_ITS | Encounter Summary ---
Author Organization [employer] Address 75 [facility] 7t [place] [address] Care Team Providers Care Accountant Machine Processing Name Role Phone Radha Shah Primary Care Provider [phone] Colby Hirsch Unavailable [facility] Primary Care Provider [phone] Reason for Referral * Consultation (Routine) - Closed Specialty Diagnoses / Procedures Referred By Aminta anderson Referred To Contact Diagnoses Routine adult health maintenance Radha Shah FNP [address] [place] [address] Phone: tel: fax: [address] [address] Phone: tel: fax: Referral ID Status Reason Start Date Expiration Date V isits Requested Visits Authorized [id number] Closed Specialty Services Required 02/16/2024 02/15/2025 1 1 Encounter Details Date Type Department Care Team (Late st Contact Info) Description 02/16/2024 Orders Only [facility] MED & PEDS [address] [place] [address] Radha Shah FNP [address] [place] [address] Routine adult health maintenance (Primary Dx) Social [...] Description 10/24/2024 1:00 PM EST Clinical Support [facility] MEDICINE [address] [place] [address] Kira Bansal RN Scheduled Referrals Name Type [...] documented as of this encounter Care Teams Accountant Machine Processing Relationship Specialty Start Date End Date Radha Shah FNP [address] [place] [address] PCP - General Family Medicine 04/21/23 04/25/24 PriceYecenia whipple FNP [address] [place] [address] PCP - General Family Medicine 04/26/24 Colby Hirsch FNP [address] [place] [address] Nurse Practitioner Family Medicine 07/13/23 Candice Ugarte Treasury ManagerCasting Sorter 12/27/23 documented as of this encounter
--- OUTSIDE RECORDS SUMMARY | 2024-10-23 16:48 | XMS_ITS | Encounter Summary ---
Author Organization [employer] Address [address] [facility] 7t [place] [address] Care Team Providers Care Cost Report Clerk Name Role Phone Colby Hirsch PROCESS AUTOMATION ENGINEER Unavailable Unavailable [facility] PROCESS AUTOMATION ENGINEER Primary Care Provider [phone] Reason for Visit * Reason Onset Date Comments Results 10/12/2024 Encounter Details Date Type Department Care Team ([facility] Contact Info) Description 10/12/2024 Telephone [facility] MEDICINE 230 [place] [address] Bethany Bond MD 230 [place] [address] Results Social History Tobacco Use Types Packs/Day [...] encounter Miscellaneous Notes * Telephone Encounter - Gladys Bertrand RN - 10/12/2024 10:57 AM EST TC placed to patient [phone] in regards to below message. Patient advised to STOP macrobid as medication will not tx bacteria in urine and to START cipro BID x7 days. Patient advised to avoid ETOH while on medication and to NOT stop medication even if her s/s improve. Patient to f/u PRN. ----- Message from Bethany Ritchie MD sent at 10/12/2024 10:26 AM EST ----- Please let patient know I send ciprofloxacin to pharmacy thank you documented in this encounter Plan of Treatment Upcoming Encounters Date Type Department Care Team (Late st Contact Info) Description 10/24/2024 1:00 PM EST Clinical Support [address] [address] Kira Bansal RN documented as of this encounter Visit Diagnoses Not on filedocumented in this encounter Additional Health Concerns Assessment Noted Time PHQ-9 Depression Total Score: 7 03/07/20 24 10:13 AM EDT documented as of this encounter Care Teams Cost Report Clerk Relationship Specialty Start Date End Date Yecenia Frias FNP [address] [place] [address] PCP - General Family Medicine 04/26/24 Colby Hirsch FNP Nurse Practitioner Family Medicine 07/13/23 Candice Ugarte Bunker WorkerDredge Boat Engineer 12/27/23 documented as of this encounter
--- OUTSIDE RECORDS SUMMARY | 2024-10-23 16:48 | XMS_ITS | Encounter Summary ---
Author Organization [employer] Address 75 [facility] 7t [place] [address] Care Team Providers Care Brass Instrument Repair Technician Name Role Phone Radha Shah MILL PLATFORM SUPERVISOR Primary Care Provider [phone] Colby Hirsch Unavailable Unavailable [facility] Primary Care Provider [phone] Encounter Details Date Type Department Care Team (Late st Contact Info) Description 02/17/2024 Community Care Management [facility] MEDICINE [address] [place] [address] Radha Shah FNP 230 [place] [address] Social History Tobacco Use Types Packs/Day Years [...] Description 10/24/2024 1:00 PM EST Clinical Support [facility] MEDICINE 230 [place] [address] Kira Bansal RN documented as of this encounter Visit Diagnoses Not on filedocumented in this encounter Additional Health Concerns Assessment Noted Time PHQ-9 Depression Total Score: 6 12/28/19 24 11:17 AM EDT documented as of this encounter Care Teams Brass Instrument Repair Technician Relationship Specialty Start Date End Date Radha Shah FNP [address] [place] [address] PCP - General Family Medicine 04/21/23 04/25/24 [place]ecenia FNP [address] [place] [address] PCP - General Family Medicine 04/26/24 Colby Hirsch FNP [address] [place] [address] Nurse Practitioner Family Medicine 07/13/23 Candice Ugarte Traveler ChangerNon Categorical Preschool Teacher 12/27/23 documented as of this encounter
--- OUTSIDE RECORDS SUMMARY | 2024-10-23 16:48 | XMS_ITS | Encounter Summary ---
Author Organization [employer] Address 75 [facility] 7t [place] [address] Care Team Providers Care Battery Hand Name Role Phone Marc Nicolas Primary Care Provider Unavail able Radha Shah GOLF INSTRUCTOR Primary Care Provider [phone] Colby Hirsch Unavailable Unavailable [facility] GOLF INSTRUCTOR Primary Care Provider [phone] Reason for Visit * Reason Comments Med Refill Encounter Details Date Type Department Care Team (Late st Contact Info) Description 03/10/2023 Refill [facility] 230 [place], [place] [id number] Marc Nicolas AGNP Mixed anxiety and depressive [...] Description 10/24/2024 1:00 PM EST Clinical Support [facility] MEDICINE [address] [place] [address] Kira Bansal, RN documented as of this encounter Visit Diagnoses Diagnosis Mixed anxiety and depressive disorder Dysthymic disorder documented in this encounter Additional Health Concerns Assessment Noted Time PHQ-9 Depression Total Score: 13 023 3:27 PM EDT documented as of this encounter Care Teams Battery Hand Relationship Specialty Start Date End Date Marc Nicolas AGNP PCP - General Family Medicine 10/22/22 04/20/23 Radha Shah FNP [address] [place] [address] PCP - General Family Medicine 04/21/23 04/25/24 Yecenia Frias FNP [address] [place] [address] PCP - General Family Medicine 04/26/24 Colby Hirsch FNP [address] [place] [address] Nurse Practitioner Family Medicine 07/13/23 Candice Ugarte Poll ClerkComputer Aided Drafter 12/27/23 documented as of this encounter
--- OUTSIDE RECORDS SUMMARY | 2024-10-23 16:48 | XMS_ITS | Encounter Summary ---
Author Organization [employer] Address 75 [facility] 7t [place] [address] Care Team Providers Care Citrix Administrator Name Role Phone Colby Hirsch REFERRAL MANAGER Unavailable Unavailable [facility] REFERRAL MANAGER Primary Care Provider [phone] Encounter Details Date Type Department Care Team (Latest Contact Info) Description 10/23/2024 Travel Social History Tobacco Use Types Packs/Day [...] others, in a hotel, in a senior living, living outside on the street, on a [...] t he electric, gas, oil or water [employer] threatened to shut off services in your [...] Description 10/24/2024 1:00 PM EST Clinical Support [facility] MEDICINE 230 [place] [address] Kira Bansal RN documented as of this encounter Visit Diagnoses Not on filedocumented in this encounter Additional Health Concerns Assessment Noted Time PHQ-9 Depression Total Score: 0 10/24/19 25 1:15 PM EST documented as of this encounter Care Teams Citrix Administrator Relationship Specialty Start Date End Date Yecenia Frias FNP 230 [place] [address] PCP - General Family Medicine 04/26/24 Colby Hirsch FNP Nurse Practitioner Family Medicine 07/13/23 Candice Ugarte Greens LaborerUndercoater 12/27/23 documented as of this encounter
--- OUTSIDE RECORDS SUMMARY | 2024-10-23 16:48 | XMS_ITS | Encounter Summary ---
Author Organization [employer] Address [address] [facility] 7t [place] [address] Care Team Providers Care Special Education Teachers Name Role Phone Colby Hirsch AUTOMATIC FURNACE OPERATOR Unavailable Unavailable [facility] AUTOMATIC FURNACE OPERATOR Primary Care Provider [phone] Encounter Details Date Type Department Care Team (Latest Contact Info) Description 10/20/2024 Travel Social History Tobacco Use Types Packs/Day [...] t he electric, gas, oil or water [employer] threatened to shut off services in your [...] Description 10/24/2024 1:00 PM EST Clinical Support [facility] MEDICINE 230 [place] [address] Kira Bansal RN documented as of this encounter Visit Diagnoses Not on filedocumented in this encounter Additional Health Concerns Assessment Noted Time PHQ-9 Depression Total Score: 7 03/07/20 24 10:13 AM EDT documented as of this encounter Care Teams Special Education Teachers Relationship Specialty Start Date End Date Yecenia Frias FNP 230 [place] [address] PCP - General Family Medicine 04/26/24 Colby Hirsch FNP Nurse Practitioner Family Medicine 07/13/23 Candice Ugarte Service ArchitectDirector Retail Brand Development 12/27/23 documented as of this encounter
--- OUTSIDE RECORDS SUMMARY | 2024-10-23 16:48 | XMS_ITS | Encounter Summary ---
Author Organization [employer] Address 75 [facility] 7t [place] [address] Care Team Providers Care Die Sinker Name Role Phone Colby Hirsch INFECTION PREVENTION PRACTITIONER Unavailable Unavailable [facility] Primary Care Provider [phone] Encounter Details Date Type Department Care Team ([facility] st Contact Info) Description 08/11/2024 Telephone [facility] MEDICINE 230 [place] [address] [facility] 230 [place] [address] Social History Tobacco Use Types Packs/Day Years [...] 1:00 PM EST Clinical Support [facility] MEDICINE 230 [place] [address] Kira Bansal, RN documented as of this encounter Visit Diagnoses Not on filedocumented in this encounter Additional Health Concerns Assessment Noted Time PHQ-9 Depression Total Score: 7 03/07/20 24 10:13 AM EDT documented as of this encounter Care Teams Die Sinker Relationship Specialty Start Date End Date Yeecnia Frias FNP 230 [place] [address] PCP - General Family Medicine 04/26/24 Colby Hirsch FNP Nurse Practitioner Family Medicine 07/13/23 Candice Ugarte Contractor BuyerTank Builder Supervisor 12/27/23 documented as of this encounter
--- OUTSIDE RECORDS SUMMARY | 2024-10-23 16:48 | XMS_ITS | Encounter Summary ---
Author Organization [employer] Address 75 [facility] 7t [place] [address] Care Team Providers Care Vp Site Name Role Phone Marc Nicolas Primary Care Provider Unavail able Radha Shah CAFETERIA CLERK Primary Care Provider [phone] Colby Hirsch Unavailable Unavailable [facility] CAFETERIA CLERK Primary Care Provider [phone] Reason for Visit * Reason Comments Med Refill Encounter Details Date Type Department Care Team (Late st Contact Info) Description 03/10/2023 Refill [facility]BILE [facility]ACCINE CLINIC 230 [place] [address] Marc Nicolas AGNP Mixed anxiety and depressive [...] Will send to PCP on 03/18/23. Has GENERAL CLEANER scheduled 03/17/23. * Telephone Encounter - Chika Low - 03/15/2023 9:14 AM EDT Tc from patient requesting a med refill for medication tramadol [address] Nicolas documented in this encounter Plan of Treatment Upcoming Encounters Date Type Department Care Team (Late st Contact Info) Description 10/24/2024 1:00 PM EST Clinical Support [facility] MEDICINE [address] [place] [address] Kira Bansal, MEREDITH documented as of this encounter Visit Diagnoses Diagnosis Mixed anxiety and depressive disorder Dysthymic disorder Multiple joint pain Pain in joint, multiple sites documented in this encounter Additional Health Concerns Assessment Noted Time PHQ-9 Depression Total Score: 13 023 3:27 PM EDT documented as of this encounter Care Teams Vp Site Relationship Specialty Start Date End Date Marc Nicolas AGNP PCP - General Family Medicine 10/22/22 04/20/23 Radha Shah FNP [address] [place] [address] PCP - General Family Medicine 04/21/23 04/25/24 [place] FNP [address] [place] [address] PCP - General Family Medicine 04/26/24 Colby Hirsch FNP [address] [place] [address] Nurse Practitioner Family Medicine 07/13/23 Candice Ugarte Commercial Title ExaminerBuilding Construction Contractor 12/27/23 documented as of this encounter
--- OUTSIDE RECORDS SUMMARY | 2024-10-23 16:48 | XMS_ITS | Encounter Summary ---
Author Organization [employer] Address 75 [facility] 7 [place] [address] Care Team Providers Care Cod Clerk Name Role Phone Colby Hirsch INTERNAL CARVER Unavailable Unavailable [facility] Primary Care Provider [phone] Reason for Visit * Reason Onset Date Comments Med Refill 09/29/2024 Encounter Details Date Type Department Care Team ([facility] st Contact Info) Description 09/29/2024 Telephone [facility] MEDICINE 230 [place], [place] [phone] [facility] 230 [place] [address] Med Refill Social History Tobacco Use Types [...] 50 MG tablet To be sent to: [facility] documented in this encounter Plan of Treatment Upcoming Encounters Date Type Department Care Team (Late st Contact Info) Description 10/24/2024 1:00 PM EST Clinical Support [facility] MEDICINE [address] [place] [address] Kira Bansal, MEREDITH documented as of this encounter Visit Diagnoses Not on filedocumented in this encounter Additional Health Concerns Assessment Noted Time PHQ-9 Depression Total Score: 7 03/07/20 24 10:13 AM EDT documented as of this encounter Care Teams Cod Clerk Relationship Specialty Start Date End Date Yecenia Frias FNP [address] [place] [address] PCP - General Family Medicine 04/26/24 Colby Hirsch FNP Nurse Practitioner Family Medicine 07/13/23 Candice Ugarte Insulation BlowerTruck Switcher 12/27/23 documented as of this encounter
--- OUTSIDE RECORDS SUMMARY | 2024-10-23 16:48 | XMS_ITS | Encounter Summary ---
Author Organization [employer] Address 75 [facility] 7t [place] [address] Care Team Providers Care Senior Web Applications Developer Name Role Phone Marc Nicolas Primary Care Provider Unavail able Radha Shah FILE SYSTEM INSTALLER Primary Care Provider [phone] Colby Hirsch FILE SYSTEM INSTALLER Unavailable Unavailable [facility] FILE SYSTEM INSTALLER Primary Care Provider [phone] Reason for Visit * Reason Comments Med Refill Encounter Details Date Type Department Care Team (Late Contact Info) Description 04/07/2023 Refill [facility] [address] [place] [address] Marc Nicolas AGNP Multiple joint pain Social [...] Description 10/24/2024 1:00 PM EST Clinical Support [facility] MEDICINE 230 [place] [address] Kira Bansal RN documented as of this encounter Visit Diagnoses Diagnosis Multiple joint pain Pain in joint, multiple sites documented in this encounter Additional Health Concerns Assessment Noted Time PHQ-9 Depression Total Score: 0 04/02/20 2:10 PM EDT documented as of this encounter Care Teams Senior Web Applications Developer Relationship Specialty Start Date End Date Marc Nicolas AGNP PCP - General Family Medicine 10/22/22 04/20/23 Radha Shah FNP 230 [place] [address] PCP - General Family Medicine 04/21/23 04/25/24 [place]uttle[place]ecenia FNP 230 [place] [address] PCP - General Family Medicine 04/26/24 Colby Hirsch FNP 230 [place] [address] Nurse Practitioner Family Medicine 07/13/23 Candice Ugarte Biosecurity OfficerChip Drier 12/27/23 documented as of this encounter
--- OUTSIDE RECORDS SUMMARY | 2024-10-23 16:48 | XMS_ITS | Encounter Summary ---
Author Organization [employer] Address [address] [facility] 7t [place] [address] Care Team Providers Care Database Development Project Manager Name Role Phone Colby Hirsch WOOL BRUSHER Unavailable Unavailable [facility] WOOL BRUSHER Primary Care Provider [phone] Encounter Details Date Type Department Care Team (Latest Contact Info) Description 10/23/2024 Outside Procedure [facility] OPTOMETRY [address] [place] [address] Glenn, Akila, OD [address] [place] [address] Presbyopia of both eyes (Primary Dx) Social History [...] Progress Notes * Akila Elizabeth OD - 10/23/2024 9:39 AM EST MH glasses were dispensed, 2 of 2. documented in this encounter Plan of Treatment Upcoming Encounters Date Type Department Care Team (Late st Contact Info) Description 10/24/2024 1:00 PM EST Clinical Support [facility] MEDICINE [address] [place] [address] Kira Bansal RN documented as of this encounter Visit Diagnoses Diagnosis Presbyopia of both eyes- Primary documented in this encounter Additional Health Concerns Assessment Noted Time PHQ-9 Depression Total Score: 0 10/24/19 25 1:15 PM EST documented as of this encounter Care Teams Database Development Project Manager Relationship Specialty Start Date End Date Yecenia Frias FNP 230 [place] [address] PCP - General Family Medicine 04/26/24 Colby Hirsch FNP Nurse Practitioner Family Medicine 07/13/23 Candice Ugarte Monitor TechnicianRefinery Operator Helper 5/6/24 documented as of this encounter
--- OUTSIDE RECORDS SUMMARY | 2024-10-23 16:48 | XMS_ITS | Encounter Summary ---
Author Organization [employer] Address 75 [facility] 7t [place] [address] Care Team Providers Care Data Processing Control Clerk Name Role Phone Pablo Radha CASEY Primary Care Provider [phone] Colby Hirsch Unavailable Unavailable [facility] Primary Care Provider [phone] Reason for Visit * Reason Comments Med Refill Encounter Details Date Type Department Care Team (Late st Contact Info) Description 01/04/2024 Refill [facility] MEDICINE [address] [place] [address] Colby Hirsch FNP Social History Tobacco Use [...] Description 10/24/2024 1:00 PM EST Clinical Support [facility] MEDICINE [address] [place] [address] Kira Bansal, RN documented as of this encounter Visit Diagnoses Not on filedocumented in this encounter Additional Health Concerns Assessment Noted Time PHQ-9 Depression Total Score: 6 12/28/19 24 11:17 AM EDT documented as of this encounter Care Teams Data Processing Control Clerk Relationship Specialty Start Date End Date Radha Shah FNP [address] [place] [address] PCP - General Family Medicine 04/21/23 04/25/24 [place] FNP [address] [place] [address] PCP - General Family Medicine 04/26/24 Colby Hirsch FNP [address] [place] [address] Nurse Practitioner Family Medicine 07/13/23 Candice Ugarte Assembler Wire Mesh GateForeclosure Paralegal 12/27/23 documented as of this encounter
--- OUTSIDE RECORDS SUMMARY | 2024-10-23 16:48 | XMS_ITS | Encounter Summary ---
Author Organization [employer] Address 75 [facility] [address] [address] Care Team Providers Care Behavioral Services Tech Name Role Phone Colby Hirsch MULTIPLE KNIFE EDGE TRIMMER OPERATOR Unavailable Unavailable [facility] Primary Care Provider [phone] Reason for Visit * Reason Comments [facility]ination [facility] outreach Encounter Details Date Type Department Care Team (Latest Contact Info) Description 10/13/2024 Patient Outreach [facility] MEDICINE [address] [place] [address] [facility] 230 [place] [address] Care Coordination (C3 -FELIPE Obrien telephone call [...] encounter Progress Notes * Kelly Obrien - 10/13/2024 1:14 PM EST CHW Kelly Obrien placed outbound call to patient for follow up call on SDOH needs. No answer at thistime. LVM introducing herself from [facility] CM Department. Requested call back. CHW reinforced direct contact information or CM for any additional questionsor concerns and extended clinic hours on Mondays and Wednesdays, and Walk-In Urgent Care Located inLobby of [facility]. Patient provided with after-hours line for [facility], , which offer nighttime triage service and option to transfer to business liaison officer provider if needed. CHW will attempt another follow up call within 10 days. documented in this encounter Plan of Treatment Upcoming Encounters Date Type Department Care Team (Late st Contact Info) Description 10/24/2024 1:00 PM EST Clinical Support [facility] MEDICINE [address] [place] [address] Kira Bansal, RN documented as of this encounter Visit Diagnoses Not on filedocumented in this encounter Additional Health Concerns Assessment Noted Time PHQ-9 Depression Total Score: 7 03/07/20 24 10:13 AM EDT documented as of this encounter Care Teams Behavioral Services Tech Relationship Specialty Start Date End Date Yecenia Frias FNP [address] [place] [address] PCP - General Family Medicine 04/26/24 Colby Hirsch FNP Nurse Practitioner Family Medicine 07/13/23 Candice Ugarte Direct Sales RepresentativeExecutive Services Administrator 12/27/23 documented as of this encounter
--- OUTSIDE RECORDS SUMMARY | 2024-10-23 16:48 | XMS_ITS | Encounter Summary ---
Author Organization [employer] Address 75 [facility] 7t [place] [address] Care Team Providers Care Lead Programmer Analyst Name Role Phone Marc Nicolas Primary Care Provider Unavail able Radha Shah ADAPTIVE PHYSICAL EDUCATOR Primary Care Provider [phone] Colby Hirsch Unavailable Unavailable [facility] ADAPTIVE PHYSICAL EDUCATOR Primary Care Provider [phone] Reason for Visit * Reason Onset Date Comments Med Refill 03/10/2023 Encounter Details Date Type Department Care Team ([facility] Contact Info) Description 03/10/2023 Telephone [facility] [address] [place], [place] [phone] Marc Nicolas AGNP Med Refill Social History [...] [facility] MEDICINE [address] [place] [address] Kira Bansal, MEREDITH documented as of this encounter Visit Diagnoses Not on filedocumented in this encounter Additional Health Concerns Assessment Noted Time PHQ-9 Depression Total Score: 13 023 3:27 PM EDT documented as of this encounter Care Teams Lead Programmer Analyst Relationship Specialty Start Date End Date Marc Nicolas AGNP PCP - General Family Medicine 10/22/22 04/20/23 Radha Shah FNP [address] [place] [address] PCP - General Family Medicine 04/21/23 04/25/24 Yecenia Frias FNP [address] [place] [address] PCP - General Family Medicine 04/26/24 Colby Hirsch FNP [address] [place] [address] Nurse Practitioner Family Medicine 07/13/23 Candice Ugarte Pick UpManual Arts Therapy Teacher 12/27/23 documented as of this encounter
--- OUTSIDE RECORDS SUMMARY | 2024-10-23 16:49 | XMS_ITS | Encounter Summary ---
Author Organization [employer] Address 75 [facility] 7t [place] [address] Care Team Providers Care Construction Contractor Name Role Phone Marc Nicolas Primary Care Provider Unavail able Radha Shah Primary Care Provider [phone] Colby Hirsch Unavailable Unavailable [facility] LATHE SCALPER OPERATOR Primary Care Provider [phone] Reason for Visit * Reason Onset Date Comments Med Refill 03/16/2023 Encounter Details Date Type Department Care Team (Late st Contact Info) Description 03/16/2023 Telephone [facility] MEDICINE [address] [place] [address] Marc Nicolas AGNP Med Refill Social History [...] 03/16/2023 3:56 PM EDT Pt scheduled for OYSTER WORKER RV 03/17/23 @ 10am. Tramadol refill due 03/19/23, Clonazepam refill due 03/18/23.Will forward request to PCP after OYSTER WORKER appt 03/17/23. * Telephone Encounter - Natividad Pate - 03/16/2023 3:36 PM EDT Tc from pt requesting medication refill on traMADol (Ultram) 50 MG tablet and clonazePAM (KlonoPIN)0.5 MG tablet documented in this encounter Plan of Treatment Upcoming Encounters Date Type Department Care Team (Late st Contact Info) Description 10/24/2024 1:00 PM EST Clinical Support [facility] MEDICINE [address] [place] [address] Kira Bansal, MEREDITH documented as of this encounter Visit Diagnoses Not on filedocumented in this encounter Additional Health Concerns Assessment Noted Time PHQ-9 Depression Total Score: 13 023 3:27 PM EDT documented as of this encounter Care Teams Construction Contractor Relationship Specialty Start Date End Date Marc Nicolas AGNP PCP - General Family Medicine 10/22/22 04/20/23 Radha Shah FNP [address] [place] [address] PCP - General Family Medicine 04/21/23 04/25/24 LovingYecenia FNP [address] [place] [address] PCP - General Family Medicine 04/26/24 Colby Hirsch FNP [address] [place] [address] Nurse Practitioner Family Medicine 07/13/23 Candice Ugarte Entry Driver OperatorMicroarray Operations Vice President 12/27/23 documented as of this encounter
--- OUTSIDE RECORDS SUMMARY | 2024-10-23 16:49 | XMS_ITS | Encounter Summary ---
Author Organization [employer] Address [address] [facility] 7t [place] [address] Care Team Providers Care Center Rep Name Role Phone Marc Nicolas Primary Care Provider Unavail able Radha Shah CORPORATE TREASURY ANALYST Primary Care Provider [phone] Colby Hirsch Unavailable Unavailable [facility] Primary Care Provider [phone] Reason for Visit * Reason Comments Med Refill Encounter Details Date Type Department Care Team ([facility] Contact Info) Description 03/17/2023 Refill [facility] MEDICINE [address] [place] [address] Marc Nicolas AGNP Mixed anxiety and depressive [...] Support [facility] [address] [place] [address] Kira Bansal, RN documented as of this encounter Visit Diagnoses Diagnosis Mixed anxiety and depressive disorder Dysthymic disorder documented in this encounter Additional Health Concerns Assessment Noted Time PHQ-9 Depression Total Score: 13 023 3:27 PM EDT documented as of this encounter Care Teams Center Rep Relationship Specialty Start Date End Date Marc Nicolas AGNP PCP - General Family Medicine 10/22/22 04/20/23 Radha Shah FNP [address] [place] [address] PCP - General Family Medicine 04/21/23 04/25/24 Yecenia Frias FNP [address] [place] [address] PCP - General Family Medicine 04/26/24 Colby Hirsch FNP [address] [place] [address] Nurse Practitioner Family Medicine 07/13/23 Candice Ugarte Assembly ManagerTruck Rental Manager 12/27/23 documented as of this encounter
[2024-10-23 17:01] LABS: Ferritin 126 ng/mL (10-250); TSH reflex Free T4 1.74 uIU/mL (0.32-4.0)
[2024-10-23 17:12] LABS: Folate 11.9 ng/mL (> or = 4.0); Vitamin B12 273 pg/mL (200-900)
[2024-10-24 08:08] LABS: HIV AB/AG Nonreactive (Nonreactive); HIV Num 1 0.08 S/CO (0.00-0.99)
== END 2024-10-23 14:04 | disposition home or self-care (01) ==
LOC: HO.HHCL 14:03
PROVIDERS: Visit Provider Registered Nurse
DX: G62.89 Other specified polyneuropathies (principal)
CPT/HCPCS: 36415; 82607; 82728; 82746; 84443; 87389

== ENCOUNTER 2024-12-05 12:28 | Outpatient (AMB) | payer MEDICAID, SELFPAY ==
--- NOTE | 2024-12-05 12:36 | MHC.OFFVIS ---
Vital Signs 12/05/24 12:46 Height 5 ft Weight 177 lb BMI 34.6 BP 120/80 Blood Pressure Location Lt brachial Position Sitting Intake Visit Reasons: upper extremity skin lesion Intake Note: Patient is seen in office for evaluation of upper extremity skin lesion. Pt c/o: left arm lesion was previous excise and per pt is painful specially when lifting heavy objects Money Room Supervisor Required: Yes Money Room Supervisor Language: Regulatory Compliance Specialist Services: Money Room Supervisor Present Money Room Supervisor Name: Ronda MENG Accompanied by: Self / Same As Patient Allergies pineapple Allergy (Severe, Verified 12/05/24 12:46) tongue swelling diphenhydramine [From BENADRYL] Allergy (Intermediate, Verified 12/05/24 12:46) HALLUCINATIONS morphine [MORPHINE] Allergy (Intermediate, Verified 12/05/24 12:46) DIAPHORESIS; TACHYCARDIA, palpitations, sweating, tingling of hands and face quetiapine [From SEROQUEL] Allergy (Intermediate, Verified 12/05/24 12:46) PALPITATIONS seafood Allergy (Intermediate, Verified 12/05/24 12:46) redness/itching tomato Allergy (Intermediate, Verified 12/05/24 12:46) Blister trazodone [TRAZODONE] Allergy (Intermediate, Verified 12/05/24 12:46) GI Upset, HEART RACING, palpitations prednisone [PREDNISONE] Adverse Reaction (Intermediate, Verified 12/05/24 12:46) HEART RACES HPI Comments Details: Patient presents because of symptomatic enlarging left upper arm cyst/mass. She apparently had this excised in the distant past but it has recurred. She would like to have removed. I have seen the patient in the distant past for infected sebaceous cyst of the back. Chart was reviewed and patient evaluated [facility] Medical History Bilateral kidney stones T2DM (type 2 diabetes mellitus) Pain of left middle finger Left hand pain Left wrist pain Numbness and tingling in left hand De Quervain's tenosynovitis, left Skin lesion of breast Rotator cuff strain Right flank pain Abnormal stress ECG with treadmill Chest discomfort Hypertrophic scar of upper arm Shoulder pain Epidermal inclusion cyst Right kidney stone Nephrolithiasis Right shoulder strain Transaminitis GERD (gastroesophageal reflux disease) Anxiety Migraines Fatty liver Elevated cholesterol Asthma Vitamin D deficiency HLD (hyperlipidemia) HTN (hypertension) Diabetes mellitus Surgical History Skin lesion Sebaceous cyst of breast Flank pain Scar contracture History of surgical removal of skin lesion (08/27/22) H/O lithotripsy History of local excision of skin lesion History of hysterectomy (~2011) Family History Father Heart disease Mother No problems noted. Social History Are you a primary health care assistant to a significant other at home: No Do you presently have visiting nurse or other home services: No Alcohol intake: never Patient Tobacco Use Status: Never used Tobacco Second Hand Smoke Exposure: No Physical Exam Vital Signs: Last Vital Signs BP 120/80 12/05/24 12:46 BMI result Body Mass Index 34.6 Chest Other: Chest sounds bilaterally, HS 1 in 2 GI Other: Abdomen corpulent, soft, benign Extrem Other: Patient has a transverse scar in the left mid upper inner arm and a recurrent cyst/mass in this area. Lesion and scar measure roughly 4 x 4 cm. Assessment & Plan Assessment & Plan (1) Mass of soft tissue of upper arm: Code(s): M79.89 - Other specified soft tissue disorders Category: Surgical Plan Patient was like to have this excised. Risks, benefits, alternatives of excision of the left upper inner arm lesion/mass were reviewed with the patient and included but not limited to bleeding, infection, recurrence, numbness, pain, scarring, hypertrophic scar, keloid, and the patient wished to proceed. All questions answered. Arrangements were made for this on a day which is convenient for her. Coding Level of Care Code New Pt Level 5 (49242) Diagnoses Mass of soft tissue of upper arm M79.89
[2024-12-05 12:46] VITALS: BP 120/80; BMI 34.6
--- OUTSIDE RECORDS SUMMARY | 2024-12-05 15:16 | XMS_ITS | Encounter Summary ---
Author Organization [employer] Address 75 [facility] [address] [place] [address] Care Team Providers Care Area Field Worker Name Role Phone Colby Hirsch HOT TOP LINER Unavailable Unavailable [facility] Primary Care Provider [phone] Reason for Visit * Reason Onset Date Comments Med Refill 2024 Encounter Details Date Type Department Care Team ([facility] st Contact Info) Description 2024 Telephone [facility] MEDICINE [address] [place], [place] [phone] [facility] [address] [place] [address] Med Refill Social History Tobacco Use Types [...] encounter Miscellaneous Notes * Telephone Encounter - Abigail Kelly RN - 2024 11:09 AM EDT [facility] reviewed, pt. Last picked up 28 day supply 11/10/24, will be due 12/08/24. Will pend to PCP tomorrow 12/06/24 * Telephone Encounter - Laina Hobbs - 2024 10:55 AM EDT TC from pt requesting medication refill. Medications needing refill : traMADol (Ultram) 50 MG tablet To be sent to: [facility] documented in this encounter Plan of Treatment Upcoming Encounters Date Type Department Care Team (Late st Contact Info) Description 01/24/2025 2:00 PM EDT Clinical Support [address] [address] iKra Bansal RN 01/24/2025 2:30 PM EDT Office Visit [facility] MEDICINE [address] [place] [address] Yecenia Frias FNP [address] [place] [address] documented as of this encounter Visit Diagnoses Not on filedocumented in this encounter Additional Health Concerns Assessment Noted Time PHQ-9 Depression Total Score: 0 10/24/19 25 1:15 PM EST documented as of this encounter Care Teams Area Field Worker Relationship Specialty Start Date End Date Yecenia Frias FNP [address] [place] [address] PCP - General Family Medicine 04/26/24 Colby Hirsch FNP Nurse Practitioner Family Medicine 07/13/23 Candice Ugarte Technical ConsultantProfessor Of Management 12/27/23 documented as of this encounter
--- OUTSIDE RECORDS SUMMARY | 2024-12-05 15:16 | XMS_ITS | Encounter Summary ---
Author Organization [employer] Address 75 [facility] 7t [place] [address] Care Team Providers Care Accounts Payable Representative Name Role Phone Colby Hirsch OCCASIONAL CAREGIVER Unavailable Unavailable [facility] Primary Care Provider [phone] Reason for Visit * Reason Comments Med Refill Encounter Details Date Type Department Care Team (Late st Contact Info) Description 12/04/2024 Refill [facility] MEDICINE [address] [place], [place] [phone] [facility] [address] [place] [address] Viral upper respiratory illness; Multiple joint pain Social History Tobacco Use [...] Telephone Encounter - Gladys Bertrand RN - 12/04/2024 1:51 PM EDT [facility] reviewed 12/04/24, tramadol last p/u on 11/10/24 for a 28 day supply. Medication not due until 12/08/24, RN will pend on 12/06/24. documented in this encounter Plan of Treatment Upcoming Encounters Date Type Department Care Team (Late st Contact Info) Description 01/24/2025 2:00 PM EDT Clinical Support [facility] MEDICINE [address] [place] [address] Kira Bansal RN 01/24/2025 2:30 PM EDT Office Visit [facility] MEDICINE [address] [place] [address] [phone] Yecenia Frias FNP [address] [place] [address] documented as of this encounter Visit Diagnoses Diagnosis Viral upper respiratory illness Multiple joint pain Pain in joint, multiple sites documented in this encounter Additional Health Concerns Assessment Noted Time PHQ-9 Depression Total Score: 0 10/24/19 25 1:15 PM EST documented as of this encounter Care Teams Accounts Payable Representative Relationship Specialty Start Date End Date Yecenia Frias FNP [address] [place] [address] PCP - General Family Medicine 04/26/24 Colby Hirsch FNP Nurse Practitioner Family Medicine 07/13/23 Candice Ugarte Aircraft Engine Cylinder MechanicWedding Consultant 12/27/23 documented as of this encounter
--- OUTSIDE RECORDS SUMMARY | 2024-12-05 15:16 | XMS_ITS | Encounter Summary ---
Author Organization [employer] Address 75 [facility] 7t [place] [address] Care Team Providers Care General Clerk Name Role Phone Marc Nicolas Primary Care Provider Unavail able Radha Shah CUSTOMER CARE COORDINATOR Primary Care Provider [phone] Colby Hirsch Unavailable Unavailable [facility] CUSTOMER CARE COORDINATOR Primary Care Provider [phone] Reason for Visit * Reason Onset Date Comments Referral 01/26/2023 Encounter Details Date Type Department Care Team (Late st Contact Info) Description 01/26/2023 Telephone [facility] MEDICINE [address] [place] [address] Marc Nicolas AGNP Referral Social History Tobacco [...] Description 01/24/2025 2:00 PM EDT Clinical Support [address] [address] Kira Bansal, MEREDITH 01/24/2025 2:30 PM EDT Office Visit [facility] MEDICINE [address] [place] [address] [place] [address] [address] documented as of this encounter Visit Diagnoses Not on filedocumented in this encounter Additional Health Concerns Assessment Noted Time PHQ-9 Depression Total Score: 19 023 3:57 PM EDT documented as of this encounter Care Teams General Clerk Relationship Specialty Start Date End Date Marc Nicolas AGNP PCP - General Family Medicine 10/22/22 04/20/23 Radha Shah FNP [address] [place] [address] PCP - General Family Medicine 04/21/23 04/25/24 DresdenYecenia FNP [address] [place] [address] PCP - General Family Medicine 04/26/24 Colby Hirsch FNP [address] [place] [address] Nurse Practitioner Family Medicine 07/13/23 Candice Ugarte Academic Services CoordinatorVp Respiratory 12/27/23 documented as of this encounter
--- OUTSIDE RECORDS SUMMARY | 2024-12-05 15:16 | XMS_ITS | Encounter Summary ---
Author Organization [employer] Address 75 [facility] 7t [place] [address] Care Team Providers Care Mental Health Program Specialist Name Role Phone Ruth Hoffmann REFRIGERATION SPECIALIST Primary Care Provider Marc Nava Primary Care Provider Unavail able Radha Shah REFRIGERATION SPECIALIST Primary Care Provider [phone] Colby HirschP Unavailable Unavailable [facility] REFRIGERATION SPECIALIST Primary Care Provider Reason for Visit * Reason Onset Date Comments Appointment Request 10/01/2022 Encounter Details Date Type Department Care Team (Late st Contact Info) Description 10/01/2022 Telephone [facility] MEDICINE [address] [place] [address] Ruth Hoffmann FNP Appointment Request Social History [...] Description 01/24/2025 2:00 PM EDT Clinical Support [address] [address] Kira Bansal RN 01/24/2025 2:30 PM EDT Office Visit [address] [address] Yecenia Frias FNP [address] [place] [address] documented as of this encounter Visit Diagnoses Not on filedocumented in this encounter Care Teams Mental Health Program Specialist Relationship Specialty Start Date End Date Ruth Hoffmann FNP PCP - General Family Medicine 07/21/22 10/21/22 Marc Nicolas AGNP PCP - General Family Medicine 10/22/22 04/20/23 Radha Shah FNP [address] [place] [address] PCP - General Family Medicine 04/21/23 04/25/24 Yecenia Frias FNP [address] [place] [address] PCP - General Family Medicine 04/26/24 Colby Hirsch FNP [address] [place] [address] Nurse Practitioner Family Medicine 07/13/23 Candice Ugarte Oval Or Circular Glass CutterSail Cutter 12/27/23 documented as of this encounter
--- OUTSIDE RECORDS SUMMARY | 2024-12-05 15:16 | XMS_ITS | Encounter Summary ---
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 Primary Care Provider [phone] Colby Hirsch Unavailable Unavailable [facility] Primary Care Provider [phone] Reason for Visit * Reason Comments Med Refill Encounter Details Date Type Department Care Team (Late st Contact Info) Description 11/24/2023 Refill [facility] MEDICINE [address] [place] [address] Radha Shah FNP [address] [place] [address] Multiple joint pain Social History Tobacco Use [...] Description 01/24/2025 2:00 PM EDT Clinical Support [facility] MEDICINE [address] [place] [address] Kira Bansal RN 01/24/2025 2:30 PM EDT Office Visit [facility] MEDICINE [address] [place] [address] AltagraciaYecenia whipple FNP [address] [place] [address] documented as of this encounter Visit Diagnoses Diagnosis Multiple joint pain Pain in joint, multiple sites documented in this encounter Additional Health Concerns Assessment Noted Time PHQ-9 Depression Total Score: 8 09/02/19 24 11:12 AM EST documented as of this encounter Care Teams Traffic Enumerator Relationship Specialty Start Date End Date Radha Shah FNP [address] [place] [address] PCP - General Family Medicine 04/21/23 04/25/24 Yecenia Frias FNP [address] [place] [address] PCP - General Family Medicine 04/26/24 Colby Hirsch FNP [address] [place] [address] Nurse Practitioner Family Medicine 07/13/23 Candice Ugarte Welder TechCar Pick Up Driver 12/27/23 documented as of this encounter
--- OUTSIDE RECORDS SUMMARY | 2024-12-05 15:16 | XMS_ITS | Clinical Summary ---
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 Active Novofine Pen Needle 32G X 6 MM misc USE ONCE DAILY DIRECTED Active Lancets (Unilet Micro-Thin 33G) misc USE FOUR TIMES DAILY TO TEST BLOOD SUGAR Active pyridoxine (Vitamin B-6) 100 MG tablet Take 1 tablet by mouth in the morning. Active cetirizine (ZyrTEC) 10 MG tablet TAKE 1 TABLET BY MOUTH EVERY MORNING 90 tablet 1 Active Diclofenac Sodium 1 % gelIndications:Pa in of left thumb Apply once a day on the affected hand 100 g 1 024 Active docusate sodium (Colace) 100 MG capsuleIndication s:Constipation, unspecified constipation type TAKE 1 CAPSULE BY MOUTH TWICE DAILY 180 capsule 1 Active Bisacodyl EC 5 MG EC tablet TAKE 1 TABLET BY MOUTH EVERY DAY NEEDED FOR CONSTIPATION. DO NOT BREAK, CRUSH, DISSOLVE OR CHEW. 30 tablet Active insulin pen needle (DiannatiGanishrd SafePack Pen Needle) 29G x 12.7mm misc Use as instructed 100 each 12 024 2024 Active metFORMIN XR (Glucophage-XR) 500 MG 24 hr tabletIndications :Type 2 diabetes mellitus without complication, with long-term current use of insulin ([facility]) TAKE 1 TABLET BY MOUTH EVERY DAY WITH DINNER 90 tablet 1 Active D3 Super Strength 50 MCG (2000 UT) capsule TAKE 1 CAPSULE BY MOUTH DAILY IN THE MORNING 90 capsule 3 Active Blood Pressure kit 1 kit 2 times daily. 1 kit 024 2024 Active glucose blood test stripIndications: Type 2 diabetes mellitus without complication, with long-term current use of insulin ([facility]) 1 each by Other route 2 times daily. 100 each 12 024 Active beta carotene (vitamin A) 3 MG (05542 UT) capsule TAKE 1 CAPSULE BY MOUTH EVERY MORNING 90 capsule 1 024 Active budesonide-formot karin (Symbicort) 80-4.5 MCG/ACT inhalerIndication s:Mild intermittent asthma without complication Inhale 2 puffs every 4-6 hours as needed for wheezing, shortness of breath 1 each 11 024 Active mirtazapine (Remeron) 7.5 MG tabletIndications :Major depression with psychotic features ([facility]) Take 1 tablet (7.5 mg) by mouth at bedtime. 30 tablet 1 024 Active risperiDONE (RisperDAL) 2 MG tabletIndications :Major Depressive Disorder Take 1 tablet (2 mg) by mouth at bedtime. 30 tablet 1 024 Active Blood Glucose Monitoring Suppl (FreeStyle Lite) w/Device kitIndications:Ty pe 2 diabetes mellitus without complication, with long-term current use of insulin ([facility]) 1 Device 2 times daily. 1 kit 024 Active famotidine (Pepcid) 20 MG tabletIndications :Gastroesophageal reflux disease with esophagitis without hemorrhage Take 1 tablet (20 mg) by mouth 2 times daily. 60 tablet 11 025 2025 Active Alcohol Swabs (Alcohol Prep) 70 % pads USE 1 FOUR TIMES DAILY DIRECTED 200 each 11 025 Active omeprazole (PriLOSEC) [address] capsule TAKE 1 CAPSULE BY MOUTH EVERY MORNING BEFORE BREAKFAST. DO NOT BREAK, CRUSH, DISSOLVE OR CHEW. 90 capsule 3 025 Active oxymetazoline (Afrin Nasal [place]) 0.05 % nasal sprayIndications: Viral upper respiratory illness Administer 2 sprays into each nostril every 12 (twelve) hours if needed for congestion for up to 2 days. Do not use for more than 3 days. 30 mL 025 Active ibuprofen 600 MG tabletIndications :Viral upper respiratory illness Take 1 tablet (600 mg) by mouth every 6 (six) hours if needed for mild pain. 30 tablet 1 Active Dulaglutide (Trulicity) 0.75 MG/0.5ML solution auto-injectorIndi cations:Type 2 diabetes mellitus without complication, with long-term current use of insulin ([facility]) Inject 0.75 mg under the skin 1 (one) time per week. 2 mL 3 025 2025 Active naloxone (Narcan) 4 mg/0.1 mL nasal sprayIndications: Chronic midline back pain, unspecified back location Administer 1 spray (4 mg) into affected nostril(s) if needed for opioid reversal. May repeat every 2-3 minutes if needed, alternating nostrils, until medical assistance becomes available. 2 each 2 Active Cyanocobalamin (B-12) 1000 MCG capsuleIndication s:Other polyneuropathy Take 1 capsule (1,000 mcg) by mouth Once per day. 30 capsule 2 025 2025 Active traMADol (Ultram) 50 MG tabletIndications :Multiple joint pain Take 1 tablet (50 mg) by mouth every 12 (twelve) hours if needed for severe pain for up to 28 days. Do not start before November 09, 2024. 56 tablet 025 2024 Active acetaminophen (Tylenol 8 Hour) 650 MG ER tabletIndications :Arthralgia, unspecified joint TAKE 1 TABLET BY MOUTH EVERY 6 HOURS NEEDED 60 tablet 1 025 Active traMADol (Ultram) 50 MG tabletIndications :Multiple joint pain TAKE 1 TABLET BY MOUTH EVERY TWELVE HOURS NEEDED FOR SEVERE PAIN 56 tablet 025 2024 Discontinued(R eorder (will not trigger notification to Pharmacy)) acetaminophen (Tylenol 8 Hour) 650 MG ER tabletIndications :Arthralgia, unspecified joint TAKE 1 TABLET BY MOUTH EVERY 6 HOURS NEEDED 60 tablet 1 025 2024 Discontinued Active Problems Problem Noted Date [...] Sacha is currently on the waitlist for [facility]. She was informed to call next month [...] support system PLAN: 1. Follow up with [facility]: Not recommended for follow-up 2. Patient goal is to manage symptoms 3. Behavioral Recommendations a. F/U with [facility] b. Reach out for support Ext. [phone] c. Keep appointment with Colby Hrisch Assessment & Plan (01/21/2023 10:21 AM EDT): Assessment: Romaine was engaged with active reflective listening and open-ended questions. Assessed symptoms, risks, and social supports with direct questions. Discussed current symptoms intensity and frequency. Emotions were normalized and validated. Sacha identified music and walks as coping mechanisms and her as protective factors. Provided psychoeducation around coping mechanism to manage sxs, provided her with [facility] Crisis number for after hrs [...] skills discussed in session. She will contact [facility] crisis number as needed. Patient [...] psychotic features with peripartum onset, unspecified trimester ([facility]) Patient ready to address current needs Yes Strengths include willing to enagge in services PLAN: 1. Follow up with [facility]: Not recommended for follow-up 2. Patient goal [...] in person [place]. At this time Sacha Rodriguez meets criteria for Visit Diagnoses: Anxiety Disorder Unspecified Patient ready to address current needs Yes Strengths include coping mechanisms of walking and distracting self PLAN: 1. Follow up with [facility]: Not recommended for follow-up 2. Patient goal [...] >60 CM >60 CM Comment: NOTE: ??For -Palestinian individuals, multiply the result ? by 1.210.Chronic Kidney Disease: ??Estimated GFR < 60 mL/min/[id number] Kidney Disease: ??Estimated GFR < 15 mL/min/1.73m2 [...] >60 CM >60 CM Comment: NOTE: ??For -Palestinian individuals, multiply the result ? by 1.210.Chronic Kidney Disease: ??Estimated GFR < 60 mL/min/1.90o4Laxxld Kidney Disease: ??Estimated GFR < 15 mL/min/1.73m2 [...] retiring patient is now referred to new [facility] psychiatric provider. Pt is aware that appts will be via televisit and that provider will not be an [facility] employee. She gives permission to share [...] night at bedtime (not prn). Based on PRINT SUPPORT SPECIALIST notes, she appears to be taking Clonazepam [...] organization. Date Type Department Care Team Description 2024 Telephone [facility] [address] [facility] [place] [address] Yecenia Frias FNP Med Refill 2024 Refill [facility] [address] [facility] [place] [address] Yecenia Frias FNP 12/04/2024 Refill [facility] [address] [facility] [place] [facility] [place] [address] Yecenia Frias FNP Viral upper respiratory illness; Multiple joint pain 11/28/2024 Refill [facility] [address] [facility] [place] [facility] [place] [address] Yecenia Frias FNP Arthralgia, unspecified joint 11/27/2024 Telephone [facility] [address] [facility] [place] [address] Yecneia Frias FNP Nurse Triage 11/14/2024 Patient Outreach [facility] [address] [facility] [place] [address] Yecenia Frias FNP Care Coordination ([address] Kelly Obrien telephone call outreach) 11/14/2024 Patient Outreach [facility] [place] [address] Yecenia Frias FNP Care Coordination 11/06/2024 Refill [facility] [address] [place] [address] Yecenia Frias FNP Multiple joint pain 11/03/2024 Population Health Risk Score [facility] [address] [phone] Provider, Population Health Generic 10/31/2024 Patient Outreach [facility] [address] [facility] [place] [address] Yecenia Frias FNP Care Coordination ([facility] Kelly Obrien telephone call outreach) 10/31/2024 Refill [facility] [address] [facility] [place] [facility] [place] [address] [facility] Type 2 diabetes mellitus without complication, with long-term current use of insulin (CMS/HCC) 10/27/2024 Telephone [facility] [address] [facility] [place] [address] [facility] Results 10/27/2024 Orders Only [facility] [address] [place] [address] [facility] Other polyneuropathy (Primary Dx) 10/24/2024 1:00 PM EST Clinical Support [facility] [address] [place] [address] Kira Bansal RN Chronic midline back pain, unspecified back location (Primary Dx) 10/24/2024 Refill [facility] [place] [address] Kira Bansal RN Chronic midline back pain, unspecified back location (Primary Dx) 10/24/2024 Travel 10/23/2024 1:00 PM EST Office Visit [facility] [place] [facility] [address] [facility] Type 2 diabetes mellitus without complication, with long-term current use of insulin (CMS/HCC) (Primary Dx); Other polyneuropathy; Dietary counseling; Exercise counseling; Encounter for immunization 10/23/2024 Travel 10/23/2024 Outside Procedure [facility] [address] [place] [address] Parveen Elizabethn, OD Presbyopia of both eyes (Primary Dx) 10/20/2024 9:45 AM EST Office Visit [facility] [address] [place] [address] Parveen Elizabethn, OD Regular astigmatism of both eyes (Primary Dx) 10/20/2024 Travel 10/13/2024 Patient Outreach [facility] [address] [place] [address] [facility] Care Coordination ([facility] Kelly Obrien telephone call outreach ) 10/12/2024 2:00 PM EST Office Visit [facility] [address] [place] [phone] Phillip Borrego, DMD 10/12/2024 Telephone [facility] [address] [place] [address] Bethany Bond MD Results 10/12/2024 Orders Only [address] [address] Bethany Bond MD Urinary tract infection symptoms (Primary Dx) 10/11/2024 Patient Outreach [address] [address] Yecenia Frias FNP Pre-visit Planning ((Unable to reach for PVP screening, LVM)) 10/11/[address] [address] Yecenia Frias FNP Arthralgia, unspecified joint 10/10/2024 2:00 PM EST Office Visit [facility] [address] [place] [address] Bethany Bond MD Urinary tract infection symptoms (Primary Dx); Diarrhea, unspecified type 10/02/2024 2:00 PM EST Office Visit [address] [address] Yecenia Frias FNP Viral upper respiratory illness (Primary Dx) 10/02/[address] [address] Yecenia Frias FNP Multiple joint pain 10/02/2024 Travel 10/02/[address] [address] Yecenia Frias FNP Nurse Triage 10/01/2024 Refill [facility] [address] [place] [phone] Radha Shah FNP 09/29/[address] [address] Yecenia Frias FNP Med Refill 09/26/2024 5:00 PM EST Office Visit [facility] [address] [address] Quin Victoria MD Cellulitis of face (Primary Dx); Hordeolum externum of left lower eyelid 09/26/2024 Telephone [facility] [address] [place] [address] Amy Almanza RN 09/25/2024 2:00 PM EST Office Visit [facility] [address] [place] [address] Debbie Madera NP Chest pain, atypical (Primary Dx); Obstructive sleep apnea syndrome; Mild intermittent asthma, unspecified whether complicated; Shortness of breath; Gastroesophageal reflux disease with esophagitis without hemorrhage 09/25/2024 Orders Only GENERIC EXTERNAL DATA DEPARTMENT Provider, Generic External Data 09/25/2024 Refill [facility] [address] [place] [address] Radha Shah FNP 09/21/2024 Patient Outreach [facility] [address] [place] [address] Yecenia Frias FNP Care Coordination ([facility] telephone call outreach) 09/18/2024 Patient Outreach [address] [address] Yecenia Frias FNP Care Coordination ([facility] telephone call outreach ) 09/14/2024 10:30 AM EST Office Visit [facility] [address] [place] [address] Glenn, Akila, OD Diabetes type 2, no ocular involvement (CMS/[facility]) (Primary Dx); Dry eyes, bilateral; Presbyopia of both eyes 09/14/2024 Travel 09/13/2024 Telephone [facility] [address] [place] [address] Yecenia Frias FNP FYI 09/13/2024 Travel 09/06/2024 Patient Outreach [facility] [address] [place] [address] Yecenia Frias FNP Care Coordination ([facility] telephone call outreach) from Last 3 Months [...] with others, in a hotel, in a care home, living outside on the street, on [...] Description 01/24/2025 2:00 PM EDT Clinical Support [facility] [address] [place] [phone] Kira Bansal RN 01/24/2025 2:30 PM EDT Office Visit [facility] [address] [place] [phone] Elwell Yecenia [address] [address] Health Maintenance Due Date Last Done Comments CT Colonography 1979 Colonoscopy 1979 Colorectal Cancer Screening 1979 Dental X-Ray: Bitewings 1979 FIT DNA/Cologuard 1979 FIT 1979 FOBT 1979 Sigmoidoscopy 1979 Alcohol/Substance Use Screening 1991 Family Planning (PISQ) 12/04/1994 Pneumococcal Vaccine: Pediatrics (0 to 5 Years) and At-Risk Patients (6 to 49) Years) (2 of 2 - PCV) 06/29/2008 06/29/2007 Dental Prophylaxis 12/06/2008 06/06/2008 Hepatitis A Vaccines (2 of 2 - Risk 2-dose series) 04/10/2009 10/11/2008 Dental X-Ray: Full Mouth 03/30/2018 03/29/2015 Dental Oral Exam 11/23/2020 05/24/2020 COVID-19 Vaccine ( - 2023- season) 2024 10/08/2022, 05/05/2021, 04/08/2021 Influenza Vaccine (#1) 2024 08/25/2013 Diabetes: Urine Protein Screening 02/06/2025 02/07/2024, 09/15/2022, 12/12/2020, Additional history exists Diabetes: Hemoglobin A1C 04/25/2025 025, 07/24/2024, 10/22/2023, Additional history exists SDOH Screening 07/25/2025 07/25/2024 Lipid Panel 09/25/2025 09/25/2024, 04/24, 03/06/2024, Additional history exists Depression Screening 10/23/2025 10/23/2024, 10/24/19 25 Diabetes: Foot Exam 10/23/2025 10/23/2024, 10/23/2024, 10/23/2024, Additional history exists Tobacco Screening 10/23/2025 10/23/2024 Mammogram 11/15/2025 11/16/2023 [...] 06/29/2007 Hepatitis C Screening Completed 02/22/2023, 022 HIV Screening Completed 10/23/2024 HIB Vaccines Aged Out No longer eligi [...] Name Priority Date/Time Associated Diagnosis Comments POCT CASSI-14 URINE DRUG SCREEN Routine 10/24/2024 1:02 PM EST Chronic midline back pain, unspecified back location HIV 1/2 ANTIGEN/ANTIBODY, FOURTH GENERATION W/RFL Routine 10/23/2024 2:05 PM EST Other polyneuropathy FERRITIN Routine 10/23/2024 2:05 PM EST Other polyneuropathy TSH W/REFLEX TO FT4 Routine 10/23/2024 2 :05 PM EST Other polyneuropathy VITAMIN B12/FOLATE, SERUM PANEL Routine 10/23/2024 2:05 PM EST Other polyneuropathy POCT GLUCOSE Routine 10/23/2024 1:17 PM EST Type 2 diabetes mellitus without complication, with long-term current use of insulin ([facility]) POCT GLYCATED HEMOGLOBIN, TOTAL Routine 10/23/2024 1:15 PM EST Type 2 diabetes mellitus without complication, with long-term current use of insulin ([facility]) DENTURE ADJUSTMENT Routine 10/12/2024 2: [...] 1 :22 PM EST Shortness of breath ALBUMIN, RANDOM URINE W/CREATININE Routine 02/07/2024 2:09 [...] Relevant to Health Maintenance Results * POCT CASSI-14 Urine Drug Screen (10/24/2024 1:02 PM EST) Urine Urine specimen obtained by clean catch procedure / Unknown 10/24/2024 1:02 PM EST Narrative Kira Bansal RN - 10/24/2024 1:02 PM EST UTOX cup Lot#[id number] Exp. 04/11/26 Internal Pass Control UTOX Negative for all substances. Cheryl Galan DO POINT OF CARE TEST ENTER/SANCHO T ORDERABLES Final Result * Vitamin B12/Folate, Serum Panel (10/23/2024 2:05 PM EST) Vitamin B12 273 200 - 900 pg/mL [facility] Comment:NORMAL 200-900 PG/ML INDETERMINATE 160-199 PG/ML DEFICIENT < 160 PG/ML Folate 11.9 > or = 4.0 ng/mL [facility] Comment:Reference Values:> o r = 4.0 ng/mL< 4.0 ng/mL suggests folate deficiency Methotrexate, aminopterin and folinic acid(leucovorin) are chemotherapeutic agents whose molecularstructures are similar to folate; therefore, the Architectfolate assay cannot be used for patients using these drugs. Blood Venous blood specimen / Unknown 10/23/2024 2:05 PM EST 10/23/2024 4:20 PM EST [facility] LAB BLOOD ORDERABLES Final Re sult Performing Organization Address City/[facility]/ZIP Co de Phone Number [facility] [address] [place] [phone] * TSH W/Reflex to FT4 (10/23/2024 2:05 PM EST) Only the most recent of2 resultswithin the time period is included. TSH reflex Free T4 1.74 0.32 - 4.0 uIU/mL [facility] Blood Venous blood specimen / Unknown 10/23/2024 2:05 PM EST 10/23/2024 4:20 PM EST [facility] LAB BLOOD ORDERABLES Final Re sult Performing Organization Address City/[facility]/ZIP Co de Phone Number [facility] [address] [place] [phone] * HIV-1/2 Antigen and Antibodies, Fourth Generation, with Reflexes (10/23/2024 2:05 PM EST) [facility] HIV AB/AG Nonreactive Nonreactive [facility] Comment:HIV-1 p24 Ag and/or HIV-1/HIV-2 Ab not detected.A test result that is nonreactive does not exclude thepossibility of exposure to or infection with HIV-1 and/orHIV-2. Nonreactive results in this assay for individualswith prior exposure to HIV-1 and/or HIV-2 may be due toantigen and antibody levels that are below the limit ofdetection of this assay.The Dialog[employer] HIV Ag/Ab Combo assay result andsupplemental assay results should be interpreted inconjunction with the patient's clinical presentation,history and other laboratory results. If the results areinconsistent with clinical evidence, additional testing issuggested to confirm the result. Blood Venous blood specimen / Unknown 10/23/2024 2:05 PM EST 10/23/2024 4:20 PM EST [facility] LAB BLOOD ORDERABLES Final Re sult Performing Organization Address City/[facility]/ZIP Co de Phone Number [facility] [address] [place] [phone] * Ferritin (10/23/2024 2:05 PM EST) [facility] Ferritin 126 10 - 250 ng/mL [facility] Blood Venous blood specimen / Unknown 10/23/2024 2:05 PM EST 10/23/2024 4:20 PM EST [facility] LAB BLOOD ORDERABLES Final Re sult Performing Organization Address City/[facility] Co de Phone Number [facility] [address] [place] [phone] * POCT Glucose (10/23/2024 1:17 PM EST) Glucose Blood, POC 101 60 - 200 mg/dL Blood Capillary blood specimen / Unknown 10/23/2024 1:17 PM EST Result [facility] POINT OF CARE TEST ENTER/EDIT ORDERABLES Final Result * POCT HGB A1C (10/23/2024 1:15 PM EST) Hemoglobin A1C 5.7 4.0 - 6.0 % Blood 10/23/2024 1:15 PM EST [facility] POINT OF CARE TEST ENTER/EDIT ORDERABLES Final Result * Culture, Urine, Routine (10/10/2024 2:35 PM EST) Urine Urine specimen obtained by clean catch procedure / Unknown 10/10/2024 2:35 PM EST 10/10/2024 4:14 PM EST Comment:UACC Narrative [facility] - 10/12/2024 7:44 AM EST Escherichia coli Quant > 100,000 cfu/mL Escherichia coli: Ampicillin >=32(R) Escherichia coli: Cefazolin (Urine) 8(S) Escherichia coli: Cefepime <=0.12(S) Escherichia coli: Ceftriaxone <=0.25(S) Escherichia coli: Ciprofloxacin <=0.06(S) Escherichia coli: Gentamicin >=16(R) Escherichia coli: Nitrofurantoin <=16(S) Escherichia coli: Trimethoprim/Sulfamethoxazole >=320(R) Specimen Source: Urine clean catch Bethany Ritchie MD LAB MICROBIOLOGY - GE NERAL ORDERABLES Final Result [facility] [address] [place] [phone] * (ABNORMAL) POCT Urinalysis (10/10/2024 2:18 PM [...] Detected Urine 10/10/2024 2:18 PM EST Result [facility] Bethany Ritchie MD POINT OF CARE TEST EN TER/EDIT ORDERABLES Final Result * POCT Rapid Covid-19 BinaxNOW (10/02/2024 2:44 PM EST) [facility] Rapid COVID Ag Negative Swab 10/02/2024 2:44 PM EST Result [facility] POINT OF CARE TEST ENTER/EDIT ORDERABLES Final Result * POCT Rapid Influenza B OSOM (10/02/2024 2:44 PM EST) [facility] Rapid Influenza B Ag Negative Negative, Indeterminate Swab 10/02/2024 2:44 PM EST Result [facility] POINT OF CARE TEST ENTER/EDIT ORDERABLES Final Result * POCT Rapid Influenza A OSOM (10/02/2024 2:44 PM EST) [facility] Rapid Influenza A Ag Negative Negative, Indeterminate Swab Nasopharyngeal structure / Unknown 10/02/2024 2:44 PM EST Result [facility] POINT OF CARE TEST ENTER/EDIT ORDERABLES Final Result * CBC auto differential (09/25/2024 1:22 PM EST) [facility] White Blood Count 7.7 4.8 - 10.8 X10*3/uL [facility] Red Blood Count 4.60 4.20 - 5.50 X10*6/uL [facility] Hemoglobin 12.9 12.0 - 16.0 g/dl [facility] Hematocrit 39.4 37.0 - 47.0 % [facility] Mean Corpuscular Volume 85.7 80.0 - 98.0 fL [facility] Mean Corpuscular Hemoglobin 28.0 27.0 - 33.0 pg [facility] Mean Corpuscular HGB Conc 32.7 31.0 - 35.0 g/dl [facility] Red Cell Distribution Width 12.9 11.0 - 16.0 % [facility] Platelet Count 252 160 - 400 X10*3/uL [facility] Mean Platelet Volume 11.1 9.4 - 12.3 fL [facility] Neutrophils Percent Auto 58.7 45 - 73 % [facility] Imm Gran Pct Auto 0.4 0.0 - 0.4 % [facility] Lymphocytes Percent Auto 32.7 20 - 40 % [facility] Monocytes Percent Auto 6.2 2 - 11 % [facility] Eosinophils Percent Auto 1.7 0 - 4 % [facility] Basophils Percent Auto 0.3 0 - 2 % [facility] NRBC Pct Auto 0.0 0.0 - 0.2 /100WBC [facility] LABS Neutrophils Absolute Auto 4.5 2.0 - 8.3 x10*3/uL [facility] Imm Gran Abs Auto 0.03 0.00 - 0.03 X10*3/uL [facility] Lymphocytes Absolute Auto 2.5 1.2 - 4.9 X10*3/uL [facility] Monocytes Absolute Auto 0.5 0.1 - 1.2 X10*3/uL [facility] Eosinophils Absolute Auto 0.1 0.0 - 0.4 X10*3/uL [facility] Basophils Absolute Auto 0.0 0.0 - 0.2 X10*3/uL [facility] NRBC Abs Auto 0.000 0.0 - 0.012 X10*3/uL [facility] Blood Venous blood specimen / Unknown 09/25/2024 1:22 PM EST 09/25/2024 4:00 PM EST us Debbie Madera BED LASTER LAB BLOOD ORDERABLES Final Resul t Performing Organization Address [facility]/ZIP Co de Phone Number [facility] [address] [place] [address] [phone] * (ABNORMAL) Lipid Panel, Standard (09/25/2024 1:22 PM EST) Triglycerides 109 <150 mg/dL [facility] Comment:Desirable Triglyceri de: less than 150 mg/dLBorderline High Triglyceride 150-199 mg/dLHigh Triglyceride: 200-499 mg/dLVery High Triglyceride: greater than or equal to 5OO mg/dL Cholesterol 128 <200 mg/dL [facility] Comment:Desirable Cholestero l: less than 200 mg/dLBorderline High Cholesterol: 200-239 mg/dLHigh Cholesterol: greater than 239 mg/dL LDL Cholesterol Calculated 71 <100 mg/dL [facility] Comment:Desirable LDL: less than 100 mg/dLNear Optimal/Above Optimal LDL: 110- 129 mg/dLBorderline High LDL: 130-159 mg/dLHigh LDL: 160-189 mg/dLVery High LDL: greater than or equal to 190 mg/dL HDL Cholesterol 36(L) >40 mg/dL [facility] Comment:Desirable HDL: great er than 40 mg/dL Note: This HDL assay may give artificially low results in patients with liver disease. 09/25/2024 1:22 PM EST 09/25/2024 4:00 PM EST us Generic External Data Provider LAB BLOOD ORDERAB LES Final Result Performing Organization Address City/[facility]/ZIP Co de Phone Number [facility] [address] [place] [address] [phone] * (ABNORMAL) Comprehensive Metabolic Panel (09/25/2024 1:22 PM EST) Sodium 140 135 - 145 mmol/L [facility] Potassium 3.9 3.3 - 5.1 mmol/L [facility] Chloride 110(H) 96 - 108 mmol/L [facility] Carbon Dioxide 24 22 - 29 mmol/L [facility] Anion Gap 10(L) 12 - 20 [facility] Urea Nitrogen (BUN) 8(L) 9 - 16 mg/dL [facility] Creatinine, Serum 0.65 0.5 - 1.4 mg/dL [facility] Estimated Glomerular Filt Rate >60 [facility] Comment:Chronic Kidney Disea se: Estimated GFR < 60 mL/min/[id number] Kidney Disease: Estimated GFR < 15 mL/min/1.73m2 Glucose 92 60 - 115 mg/dL [facility] Calcium 9.2 8.4 - 10.2 mg/dL [facility] Bilirubin, Total 0.5 0.0 - 1.0 mg/dL [facility] Aspartate Amino Transferase 29 5 - 31 U/L [facility] Alanine Aminotransferase 15 0 - 31 U/L [facility] Total Protein 8.0 6.5 - 8.0 g/dL [facility] Albumin Level 4.2 3.5 - 5.0 g/dL [facility] Alkaline Phosphatase 110 39 - 117 U/L [facility] Blood Venous blood specimen / Unknown 09/25/2024 1:22 PM EST 09/25/2024 4:00 PM EST us Debbie Madera NP LAB BLOOD ORDERABLES Final Resul t [facility] [address] [place] [address] [phone] * Albumin, Random Urine W/Creatinine (02/07/2024 2:09 PM EDT) Creatinine, Urine 164.92 mg/dL [facility] Microalbumin Urine 16.0 mg/L [facility] Microalbum Creatinine Ratio Ur 9.7 <30 ug/mg cr [facility] Comment:Albumin/Creatinine R atio Reference Ranges: Normal: < 30 ug/mg creatinine Microalbuminuria: 30 - 300 ug/mg creatinineClinical Albuminuria: > 300 ug/mg creatinine Urine (Urine, Random) 02/07/2024 2:09 PM EDT 02/07/2024 3:55 PM EDT us Radha Shah GENERAL MAGISTRATE LAB URINE ORDERABLES Final Resu lt [facility] [address] [place] [address] [phone] * BI Mammogram Screening Tomosynthesis Bilateral (11/16/2023 1:25 PM EDT) Anatomical Region Laterality Modality Breast Bilateral Mammography 11/16/2023 1:25 PM EDT Narrative 12/02/2023 6:15 AM EDT ? [facility] [place] ? [address] ?[place] [address] ? Mammography Report ? Signed ? Patient: Sacha Contreras ?MR#: [id number] ?? [id number] ? : 1980 ?Acct:[id number] ? Age/Sex: 42 / F ?ADM Date: 11/16/23 ? Loc: HO.MAMMO ? Attending Dr: Radha Shah BED LASTER ? Ordering Physician: Pablo,Radha BED LASTER ?Results: 1Negativ ?? e ? Date of Service: 11/15/ ?Follow Up: 1 Year From Orig ?? inal Mammogram ? Procedure(s): MM tomosynthesis screening BI ?? Accession Number(s): [id number] ? cc: Radha Shah BED LASTER ? EXAMINATION: ?? MM SCREENING DIGITAL BREAST [...] by Virginia Oneal MD in OV> ? 12/02/23 0611 ? DD/ 1325 ? TD/TT: ? It Intern: ? Procedure Note Sima, Image - 12/02/2023 [facility] [address] [place] [address] Mammography Report Signed Patient: Doc RodriguezXavierR#: [id number] : 1980Acct:[id number] Age/Sex: 42 / FADM Date: 11/16/23 Loc: MERYL Attending Dr: Radha Shah BED LASTER Ordering Physician: Radha Shah NPResults: 1Negativ e Date of Service: 11/16/23Follow Up: 1 Year From Orig ina Mammogram Procedure(s): MM tomosynthesis screening BI Accession Number(s): [id number] cc: Radha Shah NP EXAMINATION: MM SCREENING DIGITAL BREAST TOMOSYNTHESIS, BILATERAL [...] in OV> 12/02/23 0611 DD/ 1325 TD/TT: It Intern: Radha Shah GENERAL MAGISTRATE IMG BI PROCEDURES Final Result * (ABNORMAL) Hepatitis Panel, General (02/22/2023 1:46 PM EDT) Hepatitis A Antibody Total REACTIVE( A) NON-REACT [employer] Comment: For additional information, please refer to http://VMTurbo.[employer]esco/faq/HNE943 (This link is being provided for informational/ educational purposes only.) Hepatitis B Surface Antibody QL REACTIVE( A) NON-REACT [employer] Hepatitis B Surface Ag NON-REACT TAWNYA NON-REACT [employer] Comment: For additional information, please refer to http://VMTurbo.Tesco/faq/ZMA829 (This link is being provided for informational/ educational purposes only.) Hepatitis B Core Antibody Total NON-REACT TAWNAY NON-REACT TAWNYA [facility] Comment: For additional information, please refer to http://VMTurbo.Tesco/faq/PCY755 (This link is being provided for informational/ educational purposes only.) Hepatitis C Antibody NON-REACT TAWNYA NON-REACT TAWNYA [employer] Comment: HCV antibody was non-reactive. There is no laboratory evidence of HCV infection. In most cases, no further action is required. However, if recent HCV exposure is suspected, a test for HCV RNA (test code 58584) is suggested. For additional information please refer to http://[facility]/faq/DPN47v9 (This link is being provided for informational/ educational purposes only.) 02/22/2023 1:46 PM EDT 02/22/2023 1:46 PM EDT Narrative [facility] - 02/26/2023 7:51 PM EDT FASTING:NO FASTING: NO Marc Nicolas [facility] LAB BLOOD ORDERABLES Final Res ult [facility] [address], [place] [address] [employer] [place] [employer] [address] [place] [address] from Last 3 Months or Most Recently Relevant to Health Maintenance [facility] [place] AD[place] Care Teams Magnetic Grinder Operator Relationship Specialty Start Date End Date Yecenia Frias FNP [address] [place] [address] PCP - General Family Medicine 04/26/24 Colby Hirsch FNP Nurse Practitioner Family Medicine 07/13/23 Candice Ugarte Baling Machine OperatorMatch Marker 12/27/23
--- OUTSIDE RECORDS SUMMARY | 2024-12-05 15:16 | XMS_ITS ---
Author Organization [facility] Address [address] [place] [address] Care Team Providers Care Activity Therapy Teacher Name Role Phone Radha Rodriguez Primary Care Provider Jaylan Clancy Unavailable [phone] REASON FOR VISIT cancelled appt on 06/20/2024 Encounters Encounter Location Date Provider Diagnosis [facility] [address] [place] [address] 06/16/2024 Jaylan Neal Plan Of Treatment No Information Progress Notes * ABA LEUNGSDOB: 0 (43 yo F)Acc No.[id number]:06/16/2024 Patient:?HARMAN LEUNG :1980???Age:43 Y???Sex:Female Address:[address], [place], [address] * true * Date:? Generated for Hei chris/Lisa/eTransmitting on:?2024 03:16 PM EDT
--- OUTSIDE RECORDS SUMMARY | 2024-12-05 15:17 | XMS_ITS | Encounter Summary ---
Author Organization [employer] Address [address] [facility] 7t [place] [address] Care Team Providers Care Guitar Repair Technician Name Role Phone Radha Shah CERTIFIED WELDER Primary Care Provider [phone] Colby Hirsch Unavailable Unavailable [facility] Primary Care Provider [phone] Encounter Details Date Type Department Care Team (Late st Contact Info) Description 02/17/2024 Community Care Management [facility] MEDICINE [address] [place] [address] Radha Shah FNP [address] [place] [address] Social History Tobacco Use Types Packs/Day Years [...] Description 01/24/2025 2:00 PM EDT Clinical Support [address] [address] Kira Bansal RN 01/24/2025 2:30 PM EDT Office Visit [address] [address] Yecenia Frias FNP [address] [place] [address] documented as of this encounter Visit Diagnoses Not on filedocumented in this encounter Additional Health Concerns Assessment Noted Time PHQ-9 Depression Total Score: 6 12/28/19 24 11:17 AM EDT documented as of this encounter Care Teams Guitar Repair Technician Relationship Specialty Start Date End Date Radha Shah FNP [address] [place] [address] PCP - General Family Medicine 04/21/23 04/25/24 Yecenia Frias FNP [address] [place] [address] PCP - General Family Medicine 04/26/24 Colby Hirsch FNP [address] [place] [address] Nurse Practitioner Family Medicine 07/13/23 Candice Ugarte Tool MakerMusic Teacher 12/27/23 documented as of this encounter
--- OUTSIDE RECORDS SUMMARY | 2024-12-05 15:17 | XMS_ITS | Encounter Summary ---
Author Organization [employer] Address [address] [facility] 7t [place] [address] Care Team Providers Care Behavioral Health Counselor Name Role Phone Marc Nicolas Primary Care Provider Unavail able Radha Shah Primary Care Provider [phone] Colby Hirsch Unavailable Unavailable [facility] GRINDER TENDER Primary Care Provider [phone] Reason for Visit * Reason Onset Date Comments Med Refill 04/09/2023 Encounter Details Date Type Department Care Team (Late st Contact Info) Description 04/09/[address] [facility] MEDICINE [address] [place] [address] Marc Nicolas AGNP Mixed anxiety and depressive [...] listed in EHR, no record. Spoke with [facility] pharmacy, she is listed as Romaine [...] (KlonoPIN) 0.5 MG tablet Please sent to [facility] [place], [place] - [address] [place] [address] documented in this encounter Plan of Treatment Upcoming Encounters Date Type Department Care Team (Late st Contact Info) Description 01/24/2025 2:00 PM EDT Clinical Support [facility] MEDICINE [address] [place] [address] Kira Bansal RN 01/24/2025 2:30 PM EDT Office Visit [facility]INE [address] [place] [address] Yecenia Frias FNP [address] [place] [address] documented as of this encounter Visit Diagnoses Diagnosis Mixed anxiety and depressive disorder Dysthymic disorder documented in this encounter Additional Health Concerns Assessment Noted Time PHQ-9 Depression Total Score: 0 04/02/20 2:10 PM EDT documented as of this encounter Care Teams Behavioral Health Counselor Relationship Specialty Start Date End Date Marc Nicolas AGNP PCP - General Family Medicine 10/22/22 04/20/23 Radha Shah FNP [address] [place] [address] PCP - General Family Medicine 04/21/23 04/25/24 Yecenia Frias FNP [address] [place] [address] PCP - General Family Medicine 04/26/24 Colby Hirsch FNP [address] [place] [address] Nurse Practitioner Family Medicine 07/13/23 Candice Ugarte Raw Stock Dyeing Machine TenderHead Of English 12/27/23 documented as of this encounter
--- OUTSIDE RECORDS SUMMARY | 2024-12-05 15:17 | XMS_ITS | Encounter Summary ---
Author Organization [employer] Address [address] [facility] 7t [place] [address] Care Team Providers Care Oyster Culler Name Role Phone Colby Hirsch SILK WEAVER Unavailable Unavailable [facility] Primary Care Provider [phone] Reason for Visit * Reason Comments Med Refill Encounter Details Date Type Department Care Team ([facility] st Contact Info) Description 10/31/2024 Refill [facility] MEDICINE [address] [place], [place] [phone] [facility] [address] [place] [address] Type 2 diabetes mellitus without complication, with long-term current use of insulin ([facility]) Social History Tobacco Use Types Packs/Day Years [...] Description 01/24/2025 2:00 PM EDT Clinical Support [facility] MEDICINE [address] [place] [address] Kira Bansal RN 01/24/2025 2:30 PM EDT Office Visit [facility] MEDICINE [address] [place] [address] [facility]MY[facility] [address] [place] [address] documented as of this encounter Visit Diagnoses Diagnosis Type 2 diabetes mellitus without complication, with long-term current use of insulin ([facility]) documented in this encounter Additional Health Concerns Assessment Noted Time PHQ-9 Depression Total Score: 0 10/24/19 25 1:15 PM EST documented as of this encounter Care Teams Oyster Culler Relationship Specialty Start Date End Date Yecenia Frias FNP [address] [place] [address] PCP - General Family Medicine 04/26/24 Colby Hirsch FNP Nurse Practitioner Family Medicine 07/13/23 Candice Ugarte Ob NurseRn Military 12/27/23 documented as of this encounter
--- OUTSIDE RECORDS SUMMARY | 2024-12-05 15:17 | XMS_ITS | Encounter Summary ---
Author Organization [email or web address] Address [address] [facility] 7t [place] [address] Care Team Providers Care Cotton Seed Culler Name Role Phone Radha Shah NURSING INFORMATION SYSTEMS COORDINATOR Primary Care Provider [phone] Colby Hirsch NURSING INFORMATION SYSTEMS COORDINATOR Unavailable Unavailable [facility] NURSING INFORMATION SYSTEMS COORDINATOR Primary Care Provider [phone] Reason for Visit * Reason Onset Date Comments telephone call 10/29/2023 Encounter Details Date Type Department Care Team (Late st Contact Info) Description 10/29/2023 Refill [facility] MEDICINE [address] [place] [address] Radha Shah FNP [address] [place] [address] Multiple joint pain Social History Tobacco Use [...] does not remember the program name. A boarder steam from the program told her that if she still want to be in the program she needs a referral from PCP. Please call patient with any concern or questions. * Telephone Encounter - Celine Pate - 11/12/2023 9:46 AM EDT Patient walked in requesting a referral for a program. Patient does not remember the program name. A boarder steam from the program told her that if she still want to be in the program she needs a referral from PCP. Please call patient with any concern or questions. documented in this encounter Plan of Treatment Upcoming Encounters Date Type Department Care Team (Late st Contact Info) Description 01/24/2025 2:00 PM EDT Clinical Support [facility] MEDICINE [address] [place] [address] Kira Bansal RN 01/24/2025 2:30 PM EDT Office Visit [facility] MEDICINE [address] [place] [address] Yecenia Frias FNP [address] [place] [address] documented as of this encounter Visit Diagnoses Diagnosis Multiple joint pain Pain in joint, multiple sites documented in this encounter Additional Health Concerns Assessment Noted Time PHQ-9 Depression Total Score: 8 09/02/19 24 11:12 AM EST documented as of this encounter Care Teams Cotton Seed Culler Relationship Specialty Start Date End Date Radha Shah FNP [address] [place] [address] PCP - General Family Medicine 04/21/23 04/25/24 Yecenia Frias FNP [address] [place] [address] PCP - General Family Medicine 04/26/24 Colby Hirsch FNP [address] [place] [address] Nurse Practitioner Family Medicine 07/13/23 Candice Ugarte Power Cutting Machine OperatorUtility Appraiser 12/27/23 documented as of this encounter
--- OUTSIDE RECORDS SUMMARY | 2024-12-05 15:17 | XMS_ITS | Encounter Summary ---
Author Organization [employer] Address [address] [facility] 7t [place] [address] Care Team Providers Care Hunter Name Role Phone Radha Shah CHEMICAL MACHINE TENDER Primary Care Provider [phone] Colby Hirsch Unavailable Unavailable [facility] Primary Care Provider [phone] Reason for Visit * Reason Comments Med Refill Encounter Details Date Type Department Care Team (Late st Contact Info) Description 04/12/2024 Refill [facility] MEDICINE [address] [place] [address] Radha Shah FNP [address] [place] [address] Multiple joint pain Social History Tobacco Use [...] Description 01/24/2025 2:00 PM EDT Clinical Support [facility] MEDICINE [address] [place] [address] Kira Bansal RN 01/24/2025 2:30 PM EDT Office Visit [facility] MEDICINE [address] [place] [address] AltagraciaYecenia whipple FNP [address] [place] [address] documented as of this encounter Visit Diagnoses Diagnosis Multiple joint pain Pain in joint, multiple sites documented in this encounter Additional Health Concerns Assessment Noted Time PHQ-9 Depression Total Score: 7 03/07/20 24 10:13 AM EDT documented as of this encounter Care Teams Hunter Relationship Specialty Start Date End Date Radha Shah FNP [address] [place] [address] PCP - General Family Medicine 04/21/23 04/25/24 Yecenia Frias FNP [address] [place] [address] PCP - General Family Medicine 04/26/24 Colby Hirsch FNP [address] [place] [address] Nurse Practitioner Family Medicine 07/13/23 Candice Ugarte Computer Networking Instructor AdjunctMilitary Science Instructor 12/27/23 documented as of this encounter
--- OUTSIDE RECORDS SUMMARY | 2024-12-05 15:17 | XMS_ITS | Encounter Summary ---
Author Organization [employer] Address [address] [facility] 7t [place] [address] Care Team Providers Care Mat Sewer Name Role Phone Colby Hirsch POLEYARD SUPERVISOR Unavailable Unavailable [facility] Primary Care Provider [phone] Reason for Visit * Reason Onset Date Comments FYI 06/23/2024 Encounter Details Date Type Department Care Team ([facility] Contact Info) Description 06/23/2024 Telephone [facility] MEDICINE [address] [place], [place] [phone] [facility] [address] [place] [address] FYI Social History Tobacco Use Types Packs/Day [...] is your housing situation today? I have edll rodriguez 03/01/[address] you [...] 9:36 AM EDT Tc from Mar[facility] at [facility] calling inform provider pt cancelled appointment with did not want to r/s. If any questions contact Maribel at [phone] documented in this encounter Plan of Treatment Upcoming Encounters Date Type Department Care Team (Late st Contact Info) Description 01/24/2025 2:00 PM EDT Clinical Support [facility] MEDICINE [address] [place] [address] Kira Bansal RN 01/24/2025 2:30 PM EDT Office Visit [facility] MEDICINE [address] [place] [address] Yecenia Frias FNP [address] [place] [address] documented as of this encounter Visit Diagnoses Not on filedocumented in this encounter Additional Health Concerns Assessment Noted Time PHQ-9 Depression Total Score: 7 03/07/20 24 10:13 AM EDT documented as of this encounter Care Teams Mat Sewer Relationship Specialty Start Date End Date Yecenia Frias FNP [address] [place] [address] PCP - General Family Medicine 04/26/24 Colby Hirsch FNP Nurse Practitioner Family Medicine 07/13/23 Candice Ugarte Retail Team LeaderMaster Technician 12/27/23 documented as of this encounter
--- OUTSIDE RECORDS SUMMARY | 2024-12-05 15:17 | XMS_ITS | Encounter Summary ---
Author Organization [employer] Address [address] [facility] 7t [place] [address] Care Team Providers Care Group Sales Manager Name Role Phone Marc Nicolas Primary Care Provider Unavail able Radha Shah CAPACITOR ASSEMBLER Primary Care Provider [phone] Colby Hirsch Unavailable Unavailable [facility] CAPACITOR ASSEMBLER Primary Care Provider [phone] Reason for Visit * Reason Onset Date Comments Results 04/09/2023 Encounter Details Date Type Department Care Team (Late st Contact Info) Description 04/09/2023 Telephone [facility] MEDICINE [address] [place] [address] Marc Nicolas AGNP Results Social History Tobacco [...] AM EDT FYI T/C to pt. Through Marginize id - [id number] for below message. Pt. States she is having apt. With Dr. Sims on 05/03/2023 and wants to discuss on that day. Pt. Advised to give call back on [phone] if any questions or concerns. Pt. Verbally agreed and understood. Please review and advise if needed. * Telephone Encounter - Romeo Guido Child - 04/09/2023 12:19 PM EDT Tc from pt requesting status on results for Liver that were done a moth ago pt states. Please contact pt at [phone] Macanese Speaker documented in this encounter Plan of Treatment Upcoming Encounters Date Type Department Care Team (Late st Contact Info) Description 01/24/2025 2:00 PM EDT Clinical Support [address] [address] Kira Bansal RN 01/24/2025 2:30 PM EDT Office Visit [facility] MEDICINE [address] [place] [address] AltagraciaYecenia whipple FNP [address] [place] [address] documented as of this encounter Visit Diagnoses Not on filedocumented in this encounter Additional Health Concerns Assessment Noted Time PHQ-9 Depression Total Score: 0 04/02/20 23 2:10 PM EDT documented as of this encounter Care Teams Group Sales Manager Relationship Specialty Start Date End Date Marc Nicolas AGNP PCP - General Family Medicine 10/22/22 04/20/23 Radha Shah FNP [address] [place] [address] PCP - General Family Medicine 04/21/23 04/25/24 Yecenia Frias FNP [address] [place] [address] PCP - General Family Medicine 04/26/24 Colby Hirsch FNP [address] [place] [address] Nurse Practitioner Family Medicine 07/13/23 Candice Ugarte Mine Development EngineerAnalytical Scientist 12/27/23 documented as of this encounter
--- OUTSIDE RECORDS SUMMARY | 2024-12-05 15:17 | XMS_ITS | Encounter Summary ---
Author Organization [employer] Address 75 [facility] 7t [place] [address] Care Team Providers Care Veterinary Assistant Technician Name Role Phone Marc Nicolas Primary Care Provider Unavail able Radha Shah ARMHOLE FELLER HANDSTITCHING MACHINE Primary Care Provider [phone] Colby Hirsch Unavailable Unavailable [facility] ARMHOLE FELLER HANDSTITCHING MACHINE Primary Care Provider [phone] Reason for Visit * Reason Comments Med Refill Encounter Details Date Type Department Care Team (Late st Contact Info) Description 04/08/2023 Refill [facility] MED[facility]INE [address] [place] [address] Marc Nicolas AGNP Schizoaffective disorder, depressive type [...] Description 01/24/2025 2:00 PM EDT Clinical Support [facility] MED[facility]INE [address] [place] [address] Kira Bansal RN 01/24/2025 2:30 PM EDT Office Visit [facility] [address] [place] [address] Yecenia Frias FNP [address] [place] [address] documented as of this encounter Visit Diagnoses Diagnosis Schizoaffective disorder, depressive type (CMS/HCC) Schizoaffective disorder, unspecified condition Mixed anxiety and depressive disorder Dysthymic disorder documented in this encounter Additional Health Concerns Assessment Noted Time PHQ-9 Depression Total Score: 0 04/02/20 2:10 PM EDT documented as of this encounter Care Teams Veterinary Assistant Technician Relationship Specialty Start Date End Date Marc Nicolas AGNP PCP - General Family Medicine 10/22/22 04/20/23 Radha Shah FNP [address] [place] [address] PCP - General Family Medicine 04/21/23 04/25/24 Yecenia Frias FNP [address] [place] [address] PCP - General Family Medicine 04/26/24 Colby Hirsch FNP [address] [place] [address] Nurse Practitioner Family Medicine 07/13/23 Candice Ugarte Commercial Airplane PilotClinical Trials Assistant 12/27/23 documented as of this encounter
--- OUTSIDE RECORDS SUMMARY | 2024-12-05 15:17 | XMS_ITS | Encounter Summary ---
Author Organization [employer] Address 75 [facility] 7t [place] [address] Care Team Providers Care Leadite Heater Name Role Phone Radha Shah AS400 ADMINISTRATOR Primary Care Provider [phone] Colby Hirsch AS400 ADMINISTRATOR Unavailable Unavailable [facility] AS400 ADMINISTRATOR Primary Care Provider [phone] Reason for Visit * Reason Comments Med Refill Encounter Details Date Type Department Care Team (Late st Contact Info) Description 06/16/2023 Refill [facility] MEDICINE [address] [place] [address] Marc Nicolas AGNP Pain Social History Tobacco [...] Description 01/24/2025 2:00 PM EDT Clinical Support [address] [address] Kira Bansal RN 01/24/2025 2:30 PM EDT Office Visit [address] [address] Yecenia Frias FNP [address] [place] [address] documented as of this encounter Visit Diagnoses Diagnosis Pain Generalized pain documented in this encounter Additional Health Concerns Assessment Noted Time PHQ-9 Depression Total Score: 6 06/15/20 23 10:23 AM EDT documented as of this encounter Care Teams Leadite Heater Relationship Specialty Start Date End Date Radha Shah FNP [address] [place] [address] PCP - General Family Medicine 04/21/23 04/25/24 [place] FNP [address] [place] [address] PCP - General Family Medicine 04/26/24 Colby Hirsch FNP [address] [place] [address] Nurse Practitioner Family Medicine 07/13/23 Candice Ugarte Plate FormerSeat Covers Trimmer 12/27/23 documented as of this encounter
--- OUTSIDE RECORDS SUMMARY | 2024-12-05 15:17 | XMS_ITS | Encounter Summary ---
Author Organization [employer] Address 75 [facility] 7t [place] [address] Care Team Providers Care Pony Ride Operator Name Role Phone Marc Nicolas Primary Care Provider Unavail able Radha Shah Primary Care Provider [phone] Colby Hirsch Unavailable Unavailable [facility] ANGIOGRAPHY TECHNOLOGIST Primary Care Provider [phone] Reason for Visit * Reason Onset Date Comments Med Refill 03/16/2023 Encounter Details Date Type Department Care Team (Late st Contact Info) Description 03/16/[address] [facility] MEDICINE [address] [place] [address] Marc Nicolas AGNP Med Refill Social History [...] 03/16/2023 3:56 PM EDT Pt scheduled for SPECIALTY TRIMMER RV 03/17/23 @ 10am. Tramadol refill due 03/19/23, Clonazepam refill due 03/18/23.Will forward request to PCP after SPECIALTY TRIMMER appt 03/17/23. * Telephone Encounter - Natividad Rio - 03/16/2023 3:36 PM EDT Tc from pt requesting medication refill on traMADol (Ultram) 50 MG tablet and clonazePAM (KlonoPIN)0.5 MG tablet documented in this encounter Plan of Treatment Upcoming Encounters Date Type Department Care Team (Late st Contact Info) Description 01/24/2025 2:00 PM EDT Clinical Support [address] [address] Kira Bansal RN 01/24/2025 2:30 PM EDT Office Visit [address] [address] [place] [address] [address] documented as of this encounter Visit Diagnoses Not on filedocumented in this encounter Additional Health Concerns Assessment Noted Time PHQ-9 Depression Total Score: 13 07/ 023 3:27 PM EDT documented as of this encounter Care Teams Pony Ride Operator Relationship Specialty Start Date End Date Marc Nicolas AGNP PCP - General Family Medicine 10/22/22 04/20/23 Radha Shah FNP [address] [place] [address] PCP - General Family Medicine 04/21/23 04/25/24 [place] FNP [address] [place] [address] PCP - General Family Medicine 04/26/24 Colby Hirsch FNP [address] [place] [address] Nurse Practitioner Family Medicine 07/13/23 Candice Ugarte Casing BuilderSurgical Product Sales Consultant 12/27/23 documented as of this encounter
--- OUTSIDE RECORDS SUMMARY | 2024-12-05 15:17 | XMS_ITS | Encounter Summary ---
Author Organization [employer] Address 75 [facility] 7t [place] [address] Care Team Providers Care Mold Hoister Name Role Phone Rahda Shah VENEER LATHE OPERATOR Primary Care Provider [phone] Colby Hirsch Unavailable Unavailable [facility] VENEER LATHE OPERATOR Primary Care Provider [phone] Encounter Details Date Type Department Care Team (Late st Contact Info) Description 03/08/2024 Orders Only [facility] CHC MED & PEDS [address] [place] [address] Radha Shah FNP [address] [place] [address] Social History Tobacco Use Types Packs/Day Years [...] 01/24/2025 2:00 PM EDT Clinical Support [address] [address] Kira Bansal RN 01/24/2025 2:30 PM EDT Office Visit [facility] MEDICINE [address] [place] [address] Yecenia Frias FNP [address] [place] [address] documented as of this encounter Visit Diagnoses Not on filedocumented in this encounter Additional Health Concerns Assessment Noted Time PHQ-9 Depression Total Score: 7 03/07/20 24 10:13 AM EDT documented as of this encounter Care Teams Mold Hoister Relationship Specialty Start Date End Date Radha Shah FNP [address] [place] [address] PCP - General Family Medicine 04/21/23 04/25/24 Yecenia Frias FNP [address] [place] [address] PCP - General Family Medicine 04/26/24 Colby Hirsch FNP [address] [place] [address] Nurse Practitioner Family Medicine 07/13/23 Candice Ugarte Line PullerCheese Pancake Roller 12/27/23 documented as of this encounter
--- OUTSIDE RECORDS SUMMARY | 2024-12-05 15:17 | XMS_ITS | Encounter Summary ---
Author Organization [employer] Address 75 [facility] 7t [place] [address] Care Team Providers Care Artist'S Representative Name Role Phone Radha Shah MARKETING OPERATIONS INTERN Primary Care Provider [phone] Colby Hirsch MARKETING OPERATIONS INTERN Unavailable Unavailable [facility] MARKETING OPERATIONS INTERN Primary Care Provider [phone] Reason for Visit * Reason Onset Date Comments Results 02/16/2024 Care Coordination 02/16/[address] Kelly joshua telephone call outreached Encounter Details Date Type Department Care Team ([facility] st Contact Info) Description 02/16/2024 Telephone [facility] MEDICINE [address] [place] [address] Radha Shah FNP [address] [place] [address] Results; Care Coordination ([id number] Obrien telephone call outreached) Social History Tobacco [...] results: labs Date when done: 02/06 Facility: [facility] Please contact pt at [phone] documented in this encounter Plan of Treatment Upcoming Encounters Date Type Department Care Team (Late st Contact Info) Description 01/24/2025 2:00 PM EDT Clinical Support [address] [address] Kira Bansal, RN 01/24/2025 2:30 PM EDT Office Visit [address] [address] Yecenia Frias FNP [address] [place] [address] documented as of this encounter Visit Diagnoses Not on filedocumented in this encounter Additional Health Concerns Assessment Noted Time PHQ-9 Depression Total Score: 6 12/28/19 24 11:17 AM EDT documented as of this encounter Care Teams Artist'S Representative Relationship Specialty Start Date End Date Radha Shah FNP [address] [place] [address] PCP - General Family Medicine 04/21/23 04/25/24 Yecenia Frias FNP [address] [place] [address] PCP - General Family Medicine 04/26/24 Colby Hirsch FNP [address] [place] [address] Nurse Practitioner Family Medicine 07/13/23 Candice Ugarte Logistics TechnicianHat Forming Machine Operator 12/27/23 documented as of this encounter
--- OUTSIDE RECORDS SUMMARY | 2024-12-05 15:17 | XMS_ITS | Encounter Summary ---
Author Organization [employer] Address 75 [facility] 7t [place] [address] Care Team Providers Care Reading Coach Name Role Phone Radha Shah ADVERTISING ASSISTANT MANAGER Primary Care Provider [phone] Colby Hirsch ADVERTISING ASSISTANT MANAGER Unavailable Unavailable [facility] ADVERTISING ASSISTANT MANAGER Primary Care Provider [phone] Reason for Visit * Reason Comments Med Refill Encounter Details Date Type Department Care Team (Late st Contact Info) Description 06/28/[address] [facility] CHC MED & PEDS [address] [place] [address] Radha Shah FNP [address] [place] [address] Schizoaffective disorder, depressive type (CMS/HCC) Social History [...] Description 01/24/2025 2:00 PM EDT Clinical Support [address] [address] Kira Bansal RN 01/24/2025 2:30 PM EDT Office Visit [address] [address] [place] whipple [address] [address] documented as of this encounter Visit Diagnoses Diagnosis Schizoaffective disorder, depressive type (CMS/HCC) Schizoaffective disorder, unspecified condition documented in this encounter Additional Health Concerns Assessment Noted Time PHQ-9 Depression Total Score: 6 06/15/20 23 10:23 AM EDT documented as of this encounter Care Teams Reading Coach Relationship Specialty Start Date End Date Radha Shah FNP [address] [place] [address] PCP - General Family Medicine 04/21/23 04/25/24 Yecenia Frias FNP [address] [place] [address] PCP - General Family Medicine 04/26/24 Colby Hirsch FNP [address] [place] [address] Nurse Practitioner Family Medicine 07/13/23 Candice Ugarte Hand SpinnerSki Maker Wood 12/27/23 documented as of this encounter
--- OUTSIDE RECORDS SUMMARY | 2024-12-05 15:17 | XMS_ITS | Encounter Summary ---
Author Organization [employer] Address 75 [facility] 7t [place] [address] Care Team Providers Care Casino Cashier Name Role Phone Radha Shah DUTY ENGINEER Primary Care Provider [phone] Colby Hirsch Unavailable Unavailable [facility] DUTY ENGINEER Primary Care Provider [phone] Encounter Details Date Type Department Care Team (Late st Contact Info) Description 04/24/2024 Orders Only [facility] CHC MED & PEDS [address] [place] [address] Radha Shah FNP [address] [place] [address] Elevated lipids (Primary Dx) Social History Tobacco [...] Description 01/24/2025 2:00 PM EDT Clinical Support [facility] MEDICINE [address] [place] [address] Kira Bansal RN 01/24/2025 2:30 PM EDT Office Visit [address] [address] [place] Heights[place]ecenia FNP [address] [place] [address] documented as of this encounter Procedures Procedure Name Priority Date/Time Associated Diagnosis Comments LIPID PANEL, STANDARD Routine 05/12/2024 11:00 AM EDT Elevated lipids documented in this encounter Results * (ABNORMAL) Lipid Panel, Standard (05/12/2024 11:00 AM EDT) Triglycerides 100 <150 mg/dL [facility] Comment:Desirable Triglyceri de: less than 150 mg/dLBorderline High Triglyceride 150-199 mg/dLHigh Triglyceride: 200-499 mg/dLVery High Triglyceride: greater than or equal to 5OO mg/dL Cholesterol 101 <200 mg/dL [facility] Comment:Desirable Cholestero l: less than 200 mg/dLBorderline High Cholesterol: 200-239 mg/dLHigh Cholesterol: greater than 239 mg/dL LDL Cholesterol Calculated 44 <100 mg/dL [facility] Comment:Desirable LDL: less than 100 mg/dLNear Optimal/Above Optimal LDL: 110- 129 mg/dLBorderline High LDL: 130-159 mg/dLHigh LDL: 160-189 mg/dLVery High LDL: greater than or equal to 190 mg/dL HDL Cholesterol 37(L) >40 mg/dL [facility] Comment:Desirable HDL: great er than 40 mg/dL Note: This HDL assay may give artificially low results in patients with liver disease. Blood Venous blood specimen / Unknown 05/12/2024 11:00 AM EDT 05/12/2024 11:00 AM EDT Radha CASEY LAB BLOOD ORDERABLES Final Resu lt [facility] [address] [place] [address] [phone] documented in this encounter Visit Diagnoses Diagnosis Elevated lipids- Primary documented in this encounter Additional Health Concerns Assessment Noted Time PHQ-9 Depression Total Score: 7 03/07/20 24 10:13 AM EDT documented as of this encounter Care Teams Casino Cashier Relationship Specialty Start Date End Date Radha Shah FNP [address] [place] [address] PCP - General Family Medicine 04/21/23 04/25/24 [place] Heights[place]ecenia FNP [address] [place] [address] PCP - General Family Medicine 04/26/24 Colby iHrsch FNP [address] [place] [address] Nurse Practitioner Family Medicine 07/13/23 Candice Ugarte Tray SetterElectrician Outside 12/27/23 documented as of this encounter
--- OUTSIDE RECORDS SUMMARY | 2024-12-05 15:17 | XMS_ITS | Encounter Summary ---
Author Organization [employer] Address 75 [facility] 7t [place] [address] Care Team Providers Care Industrial Safety Engineer Name Role Phone Radha Shah Primary Care Provider [phone] Colby Hirsch Unavailable [facility] Primary Care Provider [phone] Reason for Referral * Consultation (Routine) - Closed Specialty Diagnoses / Procedures Referred By Aminta anderson Referred To Contact Diagnoses Routine adult health maintenance Radha Shah FNP [address] [place] [address] Phone: tel: fax: [address] [phone] Phone: tel: fax: Referral ID Status Reason Start Date Expiration Date V isits Requested Visits Authorized [id number] Closed Specialty Services Required 02/16/2024 02/15/2025 1 1 Encounter Details Date Type Department Care Team (Late st Contact Info) Description 02/16/2024 Orders Only [facility] CHC MED & PEDS [address] [place] [address] Radha Shah FNP [address] [place] [address] Routine adult health maintenance (Primary Dx) Social [...] Description 01/24/2025 2:00 PM EDT Clinical Support [facility] MEDICINE [address] [place] [address] Kira Bansal RN 01/24/2025 2:30 PM EDT Office Visit [facility] MEDICINE [address] [place] [address] Yecenia Frias FNP [address] [place] [address] Scheduled Referrals Name Type Priority Associated Diagnoses Orde r Schedule Referral to Care Management Outpatient Referral Routine Routine adult health maintenance Expected: 02/16/2024 (Approximate), Expires: 02/15/2025 documented as of this encounter Visit Diagnoses Diagnosis Routine adult health maintenance- Primary documented in this encounter Additional Health Concerns Assessment Noted Time PHQ-9 Depression Total Score: 6 12/28/19 11:17 AM EDT documented as of this encounter Care Teams Industrial Safety Engineer Relationship Specialty Start Date End Date Radha Shah FNP [address] [place] [address] PCP - General Family Medicine 04/21/23 04/25/24 Yecenia Frias FNP [address] [place] [address] PCP - General Family Medicine 04/26/24 Colby Hirsch FNP [address] [place] [address] Nurse Practitioner Family Medicine 07/13/23 Candice Ugarte Engraver LetterCableman 12/27/23 documented as of this encounter
--- OUTSIDE RECORDS SUMMARY | 2024-12-05 15:17 | XMS_ITS | Encounter Summary ---
Author Organization [employer] Address 75 [facility] 7t [place] [address] Care Team Providers Care Speeder Hand Name Role Phone Radha Shah SUPERVISOR CLAM BED Primary Care Provider [phone] Colby Hirsch Unavailable Unavailable [facility] Primary Care Provider Reason for Visit * Reason Comments Med Refill Encounter Details Date Type Department Care Team (Late st Contact Info) Description 06/30/2023 Refill [facility] MEDICINE [address] [place] [address] Radha Shah FNP [address] [place] [address] Multiple joint pain Social History Tobacco Use [...] Description 01/24/2025 2:00 PM EDT Clinical Support [facility] MEDICINE [address] [place] [address] Kira Bansal RN 01/24/2025 2:30 PM EDT Office Visit [facility] MEDICINE [address] [place] [address] [place] FNP [address] [place] [address] documented as of this encounter Visit Diagnoses Diagnosis Multiple joint pain Pain in joint, multiple sites documented in this encounter Additional Health Concerns Assessment Noted Time PHQ-9 Depression Total Score: 6 06/15/20 23 10:23 AM EDT documented as of this encounter Care Teams Speeder Hand Relationship Specialty Start Date End Date Radha Shah FNP [address] [place] [address] PCP - General Family Medicine 04/21/23 04/25/24 Yecenia Frias FNP [address] [place] [address] PCP - General Family Medicine 04/26/24 Colby Hirsch FNP [address] [place] [address] Nurse Practitioner Family Medicine 07/13/23 Candice Ugarte Director Of Acquisition MarketingRefrigeration Installer 12/27/23 documented as of this encounter
--- OUTSIDE RECORDS SUMMARY | 2024-12-05 15:17 | XMS_ITS ---
Author Organization [facility] Address [address] [place] [address] Care Team Providers Care Preparation Plant Repairer Name Role Phone Radha Rodriguez Primary Care Provider Jaylan Clancy Unavailable [phone] REASON FOR VISIT Patient presents today for FATTY LIVER Encounters Encounter Location Date Provider Diagnosis [facility] [address] [place] [phone] 06/20/2024 Jaylan Neal Plan Of Treatment No Information Progress Notes * MADHU JAZLYNHAYLEESDOB: 0 (44 yo F)Acc No.[id number]:06/20/2024 Progress Notes Patient:?HARMAN LEUNG Provider:?Jaylan Neal MD :1980???Age:43 Y???Sex:Female D ate:06/20/2024 Address:[address] [place], [place] [id number] Pcp:JACINTO Ramos Subjective: * Chief Complaints: * ???1. Patient presents today for FATTY LIVER. * Medical History:? Objective: * Vitals:? Assessment: Plan: * Treatment: * * The named appointment provid er may or may not be the originator of this progress note, and it is not deemed complete until electronically signed by the appointment provider. Sign off status: Pending * Provider:?Jaylan Neal MD Date:? 024 Generated for Ashlee perez/Lisa/eTransmitting on:?2024 03:16 PM EDT
--- OUTSIDE RECORDS SUMMARY | 2024-12-05 15:17 | XMS_ITS | Encounter Summary ---
Author Organization [employer] Address 75 [facility] 7t [place] [address] Care Team Providers Care Branch Services Manager Name Role Phone Marc Nicolas Primary Care Provider Unavail able Radha Shah PAPERBOARD BOXES ESTIMATOR Primary Care Provider [phone] Colby Hirsch Unavailable Unavailable [facility] PAPERBOARD BOXES ESTIMATOR Primary Care Provider [phone] Reason for Visit * Reason Onset Date Comments Med Refill 03/10/2023 Encounter Details Date Type Department Care Team ([facility] Contact Info) Description 03/10/[address] [address] Marc Nicolas AGNP Med Refill Social History [...] Upcoming Encounters Date Type Department Care Team ([facility] Contact Info) Description 01/24/2025 2:00 PM EDT Clinical Support [address] [place] [address] Kira Bansal, RN 01/24/2025 2:30 PM EDT Office Visit [facility] MEDICINE [address] [place], [place] [phone] Yecenia [place] [address] documented as of this encounter Visit Diagnoses Not on filedocumented in this encounter Additional Health Concerns Assessment Noted Time PHQ-9 Depression Total Score: 13 023 3:27 PM EDT documented as of this encounter Care Teams Branch Services Manager Relationship Specialty Start Date End Date Marc Nicolas AGNP PCP - General Family Medicine 10/22/22 04/20/23 Radha Shah FNP [address] [place] [address] PCP - General Family Medicine 04/21/23 04/25/24 Yecenia Frias FNP [address] [place] [address] PCP - General Family Medicine 04/26/24 Colby Hirsch FNP [address] [place] [address] Nurse Practitioner Family Medicine 07/13/23 Candice Ugarte Probation AgentCity Superintendent Of Schools 12/27/23 documented as of this encounter
--- OUTSIDE RECORDS SUMMARY | 2024-12-05 15:17 | XMS_ITS | Encounter Summary ---
Author Organization [employer] Address 75 [facility] 7t [place] [address] Care Team Providers Care Citrix Systems Administrator Name Role Phone Colby Hirsch INCIDENT RESPONSE ANALYST Unavailable Unavailable [facility] Primary Care Provider [phone] Encounter Details Date Type Department Care Team ([facility] st Contact Info) Description 08/11/2024 Telephone [facility] MEDICINE [address] [place] [address] [facility] 230 [place] [address] Social History Tobacco Use Types Packs/Day Years [...] Description 01/24/2025 2:00 PM EDT Clinical Support [facility] MEDICINE [address] [place] [address] Kira Bansal RN 01/24/2025 2:30 PM EDT Office Visit [address] [address] Yecenia Frias FNP [address] [place] [address] documented as of this encounter Visit Diagnoses Not on filedocumented in this encounter Additional Health Concerns Assessment Noted Time PHQ-9 Depression Total Score: 7 03/07/20 24 10:13 AM EDT documented as of this encounter Care Teams [employer] Systems Administrator Relationship Specialty Start Date End Date Yecenia Frias FNP [address] [place] [address] PCP - General Family Medicine 04/26/24 Colby Hirsch FNP Nurse Practitioner Family Medicine 07/13/23 Candice Ugarte Telehealth DirectorPhysician Relations Specialist 12/27/23 documented as of this encounter
--- OUTSIDE RECORDS SUMMARY | 2024-12-05 15:17 | XMS_ITS | Encounter Summary ---
Author Organization [employer] Address 75 [facility] 7t [place] [address] Care Team Providers Care Frame Stylist Name Role Phone Radha Shah [facility] Primary Care Provider [phone] Colby Hirsch LEAD BUSINESS ANALYST Unavailable Unavailable [facility] Primary Care Provider [phone] Reason for Visit * Reason Comments Med Refill Encounter Details Date Type Department Care Team (Late st Contact Info) Description 06/09/2023 Refill [facility] [address] [place] [address] Marilee Buckner FNP [address] [place] [address] [place] [address] Multiple joint pain; Mixed anxiety and depressive [...] Description 01/24/2025 2:00 PM EDT Clinical Support [facility] [address] [place] [address] Kira Bansal RN 01/24/2025 2:30 PM EDT Office Visit [facility] [address] [place] [address] [place] [address] [address] documented as of this encounter Visit Diagnoses Diagnosis Multiple joint pain Pain in joint, multiple sites Mixed anxiety and depressive disorder Dysthymic disorder documented in this encounter Additional Health Concerns Assessment Noted Time PHQ-9 Depression Total Score: 18 023 11:25 AM EDT documented as of this encounter Care Teams Frame Stylist Relationship Specialty Start Date End Date Radha Shah FNP [address] [place] [address] PCP - General Family Medicine 04/21/23 04/25/24 Rainbow LakeYecenia whipple FNP [address] [place] [address] PCP - General Family Medicine 04/26/24 Colby Hirsch FNP [address] [place] [address] Nurse Practitioner Family Medicine 07/13/23 Candice Ugarte Metal FabricatorProfessor Of Food Biochemistry 12/27/23 documented as of this encounter
--- OUTSIDE RECORDS SUMMARY | 2024-12-05 15:17 | XMS_ITS | Encounter Summary ---
Author Organization [employer] Address 75 [facility] 7t [place] [address] Care Team Providers Care Sheriffs Detective Name Role Phone Pablo Radha FNP Primary Care Provider [phone] Colby Hirsch Unavailable Unavailable [facility] Primary Care Provider [phone] Reason for Visit * Reason Comments Med Refill Encounter Details Date Type Department Care Team (Late st Contact Info) Description 01/04/[address] [facility] [address] [place] [address] Colby Hirsch FNP Social History Tobacco Use [...] Description 01/24/2025 2:00 PM EDT Clinical Support [address] [address] Kira Bansal RN 01/24/2025 2:30 PM EDT Office Visit [facility] [address] [place] [address] AltagraciaYecenia whipple FNP [address] [place] [address] documented as of this encounter Visit Diagnoses Not on filedocumented in this encounter Additional Health Concerns Assessment Noted Time PHQ-9 Depression Total Score: 6 12/28/19 24 11:17 AM EDT documented as of this encounter Care Teams Sheriffs Detective Relationship Specialty Start Date End Date Radha Shah FNP [address] [place] [address] PCP - General Family Medicine 04/21/23 04/25/24 AllenYecenia FNP [address] [place] [address] PCP - General Family Medicine 04/26/24 Colby Hirsch FNP [address] [place] [address] Nurse Practitioner Family Medicine 07/13/23 Candice Ugarte Sand AnalystCrusher And Binder Operator 12/27/23 documented as of this encounter
--- OUTSIDE RECORDS SUMMARY | 2024-12-05 15:17 | XMS_ITS | Encounter Summary ---
Author Organization [employer] Address 75 [facility] 7t [place] [address] Care Team Providers Care Roofer Helper Vinyl Coating Name Role Phone Marc Nicolas Primary Care Provider Unavail able Radha Shah CANE FLUME WATCHMAN Primary Care Provider [phone] Colby Hirsch Unavailable Unavailable [facility] CANE FLUME WATCHMAN Primary Care Provider [phone] Reason for Visit * Reason Comments Med Refill Encounter Details Date Type Department Care Team (Late st Contact Info) Description 03/10/[address] [facility] [address] [place] [address] Marc Nicolas AGNP Mixed anxiety and depressive [...] Will send to PCP on 03/18/23. Has PERFORMING ARTS TECHNICIANS scheduled 03/17/23. * Telephone Encounter - Chika Low - 03/15/2023 9:14 AM EDT Tc from patient requesting a med refill for medication tramadol [address] Nicolas documented in this encounter Plan of Treatment Upcoming Encounters Date Type Department Care Team (Late st Contact Info) Description 01/24/2025 2:00 PM EDT Clinical Support [address] [address] Kira Bansal RN 01/24/2025 2:30 PM EDT Office Visit [address] [address] Yecenia Frias FNP [address] [place] [address] documented as of this encounter Visit Diagnoses Diagnosis Mixed anxiety and depressive disorder Dysthymic disorder Multiple joint pain Pain in joint, multiple sites documented in this encounter Additional Health Concerns Assessment Noted Time PHQ-9 Depression Total Score: 13 023 3:27 PM EDT documented as of this encounter Care Teams Roofer Helper Vinyl Coating Relationship Specialty Start Date End Date Marc Nciolas AGNP PCP - General Family Medicine 10/22/22 04/20/23 Radha Shah FNP [address] [place] [address] PCP - General Family Medicine 04/21/23 04/25/24 Yecenia Frias FNP [address] [place] [address] PCP - General Family Medicine 04/26/24 Colby Hirsch FNP [address] [place] [address] Nurse Practitioner Family Medicine 07/13/23 Candice Ugarte Division ChairSap Fico Business Analyst 12/27/23 documented as of this encounter
--- OUTSIDE RECORDS SUMMARY | 2024-12-05 15:17 | XMS_ITS | Encounter Summary ---
Author Organization [employer] Address 75 [facility] 7t [place] [address] Care Team Providers Care Head Soft Sugar Operator Name Role Phone Marc Nicolas Primary Care Provider Unavail able Radha Shah ONCOLOGY ADMIN Primary Care Provider [phone] Colby Hirsch Unavailable Unavailable [facility] ONCOLOGY ADMIN Primary Care Provider [phone] Reason for Visit * Reason Comments Med Refill Encounter Details Date Type Department Care Team (Late st Contact Info) Description 03/10/2023 Refill [facility] [address] [place], [place] [phone] Marc Nicolas AGNP Mixed anxiety and depressive [...] EDT Clinical Support [facility] [address] [place] [address] Kira Bansal RN 01/24/2025 2:30 PM EDT Office Visit [facility] [address] [place] [address] Yecenia Frias FNP [address] [place] [address] documented as of this encounter Visit Diagnoses Diagnosis Mixed anxiety and depressive disorder Dysthymic disorder documented in this encounter Additional Health Concerns Assessment Noted Time PHQ-9 Depression Total Score: 13 023 3:27 PM EDT documented as of this encounter Care Teams Head Soft Sugar Operator Relationship Specialty Start Date End Date Marc Nicolas AGNP PCP - General Family Medicine 10/22/22 04/20/23 [place] [address] PCP - General Family Medicine 04/21/23 04/25/24 [place] [address] PCP - General Family Medicine 04/26/24 Colby Hirsch FNP [address] [place] [address] Nurse Practitioner Family Medicine 07/13/23 Candice Ugarte Field Representatives DirectorHousekeeper/Custodian/Laundry Worker 12/27/23 documented as of this encounter
--- OUTSIDE RECORDS SUMMARY | 2024-12-05 15:17 | XMS_ITS | Encounter Summary ---
Author Organization [employer] Address 75 [facility] 7t [place] [address] Care Team Providers Care Wet End Helper Name Role Phone Marc Nicolas Primary Care Provider Unavail able Radha Shah FAMILY MEDICINE PHYSICIAN Primary Care Provider [phone] Colby Hirsch Unavailable Unavailable [facility] FAMILY MEDICINE PHYSICIAN Primary Care Provider [phone] Reason for Visit * Reason Comments Med Refill Encounter Details Date Type Department Care Team ([facility] st Contact Info) Description 03/17/2023 Refill [facility] [address] [place] [address] Marc Nicolas AGNP Mixed anxiety and depressive [...] Department Care Team (Late Contact Info) Description 01/24/2025 2:00 PM EDT Clinical Support [facility] [address] [place] [address] Kira Bansal RN 01/24/2025 2:30 PM EDT Office Visit [facility] [address] [place] [address] Yecenia Frias FNP [address] [place] [address] documented as of this encounter Visit Diagnoses Diagnosis Mixed anxiety and depressive disorder Dysthymic disorder documented in this encounter Additional Health Concerns Assessment Noted Time PHQ-9 Depression Total Score: 13 023 3:27 PM EDT documented as of this encounter Care Teams Wet End Helper Relationship Specialty Start Date End Date Marc Nicolas AGNP PCP - General Family Medicine 10/22/22 04/20/23 Radha [place] [address] PCP - General Family Medicine 04/21/23 04/25/24 [place] [address] PCP - General Family Medicine 04/26/24 Colby Hirsch FNP [address] [place] [address] Nurse Practitioner Family Medicine 07/13/23 Candice Ugarte Continuous Conveyor Screen DrierFashion Artist 12/27/23 documented as of this encounter
--- OUTSIDE RECORDS SUMMARY | 2024-12-05 15:17 | XMS_ITS | Encounter Summary ---
Author Organization [employer] Address 75 [facility] 7t [place] [address] Care Team Providers Care Malt Loader Name Role Phone Radha Shah COMMUNITY DEVELOPMENT DIRECTOR Primary Care Provider [phone] Colby Hirsch Unavailable Unavailable [facility] Primary Care Provider [phone] Reason for Visit * Reason Comments Med Refill Encounter Details Date Type Department Care Team (Late st Contact Info) Description 02/16/2024 Refill [facility] [address] [place] [address] Radah Shah FNP [address] [place] [address] Multiple joint pain Social History Tobacco Use [...] Description 01/24/2025 2:00 PM EDT Clinical Support [facility] [address] [place] [address] Kira Bansal RN 01/24/2025 2:30 PM EDT Office Visit [facility] [address] [place] [address] [place] HighlandsYecenia FNP [address] [place] [address] documented as of this encounter Visit Diagnoses Diagnosis Multiple joint pain Pain in joint, multiple sites documented in this encounter Additional Health Concerns Assessment Noted Time PHQ-9 Depression Total Score: 6 12/28/19 24 11:17 AM EDT documented as of this encounter Care Teams Malt Loader Relationship Specialty Start Date End Date Radha Shah FNP [address] [place] [address] PCP - General Family Medicine 04/21/23 04/25/24 Yecenia Frias FNP [address] [place] [address] PCP - General Family Medicine 04/26/24 Colby Hirsch FNP [address] [place] [address] Nurse Practitioner Family Medicine 07/13/23 Candice Ugarte Brush CleanerFire Fighting Equipment Specialist 12/27/23 documented as of this encounter
--- OUTSIDE RECORDS SUMMARY | 2024-12-05 15:17 | XMS_ITS | Encounter Summary ---
Author Organization [employer] Address 75 [facility] 7t [place] [address] Care Team Providers Care Tree Trimmer Name Role Phone Radha Shah [facility] Primary Care Provider [phone] Colby Hirsch ETHICS OFFICER Unavailable Unavailable [facility] Primary Care Provider [phone] Reason for Visit * Reason Comments Med Refill Encounter Details Date Type Department Care Team (Late st Contact Info) Description 06/04/2023 Refill [facility] [address] [place] [address] Marilee Buckner FNP [address] [place] [address] [place] [address] Multiple joint pain; Mixed anxiety and depressive [...] Description 01/24/2025 2:00 PM EDT Clinical Support [facility] [address] [place] [address] Kira Bansal RN 01/24/2025 2:30 PM EDT Office Visit [facility] [address] [place] [address] [address] [address] documented as of this encounter Visit Diagnoses Diagnosis Multiple joint pain Pain in joint, multiple sites Mixed anxiety and depressive disorder Dysthymic disorder documented in this encounter Additional Health Concerns Assessment Noted Time PHQ-9 Depression Total Score: 0 04/02/20 23 2:10 PM EDT documented as of this encounter Care Teams Tree Trimmer Relationship Specialty Start Date End Date Radha Shah FNP [address] [place] [address] PCP - General Family Medicine 04/21/23 04/25/24 AltagraciaYecenia whipple FNP [address] [place] [address] PCP - General Family Medicine 04/26/24 Colby Hirsch FNP [address] [place] [address] Nurse Practitioner Family Medicine 07/13/23 Candice Ugarte Continuity DirectorPaper Machine Backtender 12/27/23 documented as of this encounter
--- OUTSIDE RECORDS SUMMARY | 2024-12-05 15:17 | XMS_ITS | Encounter Summary ---
Author Organization [employer] Address 75 [facility] 7t [place] [address] Care Team Providers Care Public Bath Attendant Name Role Phone Radha Shah GOVERNMENT EMPLOYEE Primary Care Provider [phone] Colby Hirsch Unavailable Unavailable [facility] Primary Care Provider Reason for Visit * Reason Comments Med Refill Encounter Details Date Type Department Care Team (Late st Contact Info) Description 07/02/2023 Refill [facility] [address] [place] [address] Radha Shah FNP [address] [place] [address] Multiple joint pain Social History Tobacco Use [...] 2:00 PM EDT Clinical Support [facility] MED[facility]INE [address] [place] [address] Kira Bansal RN 01/24/2025 2:30 PM EDT Office Visit [facility] [address] [place] [address] [place] Valley[place]ecenia FNP [address] [place] [address] documented as of this encounter Visit Diagnoses Diagnosis Multiple joint pain Pain in joint, multiple sites documented in this encounter Additional Health Concerns Assessment Noted Time PHQ-9 Depression Total Score: 6 06/15/20 23 10:23 AM EDT documented as of this encounter Care Teams Public Bath Attendant Relationship Specialty Start Date End Date Radha Shah FNP [address] [place] [address] PCP - General Family Medicine 04/21/23 04/25/24 Yecenia Frias FNP [address] [place] [address] PCP - General Family Medicine 04/26/24 Colby Hirsch FNP [address] [place] [address] Nurse Practitioner Family Medicine 07/13/23 Candice Ugarte Securities ConsultantService Desk Agent 12/27/23 documented as of this encounter
--- OUTSIDE RECORDS SUMMARY | 2024-12-05 15:17 | XMS_ITS | Encounter Summary ---
Author Organization [employer] Address 75 [facility] 7t [place] [address] Care Team Providers Care Sheet Roller Operator Name Role Phone Radha Shah [facility] Primary Care Provider [phone] Colby Hirsch Unavailable Unavailable [facility] Primary Care Provider [phone] Encounter Details Date Type Department Care Team (Late st Contact Info) Description 10/29/2023 Orders Only [facility] [address] [place] [address] Radha Shah FNP [address] [place] [address] Social History Tobacco Use Types Packs/Day Years [...] Description 01/24/2025 2:00 PM EDT Clinical Support [address] [address] Kira Bansal RN 01/24/2025 2:30 PM EDT Office Visit [address] [address] Yecenia Frais FNP [address] [place] [address] documented as of this encounter Visit Diagnoses Not on filedocumented in this encounter Additional Health Concerns Assessment Noted Time PHQ-9 Depression Total Score: 8 09/02/19 24 11:12 AM EST documented as of this encounter Care Teams Sheet Roller Operator Relationship Specialty Start Date End Date Radha Shah FNP [address] [place] [address] PCP - General Family Medicine 04/21/23 04/25/24 Yecenia Frias FNP [address] [place] [address] PCP - General Family Medicine 04/26/24 Colby Hirsch FNP [address] [place] [address] Nurse Practitioner Family Medicine 07/13/23 Candice Ugarte Physical Security SpecialistEthics Instructor 12/27/23 documented as of this encounter
--- OUTSIDE RECORDS SUMMARY | 2024-12-05 15:17 | XMS_ITS | Encounter Summary ---
Author Organization [employer] Address 75 [facility] 7 [place] [address] Care Team Providers Care Counter Clerk Tractor Parts Name Role Phone Colby Hirsch EMBEDDED DEVELOPER Unavailable Unavailable [facility] Primary Care Provider [phone] Reason for Visit * Reason Onset Date Comments Med Refill 09/29/2024 Encounter Details Date Type Department Care Team ([facility] st Contact Info) Description 09/29/2024 Telephone [facility] 230 [place], [place] [phone] [facility] [address] [place] [address] Med Refill Social History Tobacco Use Types [...] 50 MG tablet To be sent to: [facility] documented in this encounter Plan of Treatment Upcoming Encounters Date Type Department Care Team (Late st Contact Info) Description 01/24/2025 2:00 PM EDT Clinical Support [facility] [address] [place] [address] Kira Bansal RN 01/24/2025 2:30 PM EDT Office Visit [facility] [address] [place] [address] Yecenia Frias FNP [address] [place] [address] documented as of this encounter Visit Diagnoses Not on filedocumented in this encounter Additional Health Concerns Assessment Noted Time PHQ-9 Depression Total Score: 7 03/07/20 24 10:13 AM EDT documented as of this encounter Care Teams Counter Clerk Tractor Parts Relationship Specialty Start Date End Date Yecenia Frias FNP [address] [place] [address] PCP - General Family Medicine 04/26/24 Colby Hirsch FNP Nurse Practitioner Family Medicine 07/13/23 Candice Ugarte Restorative Care TechnicianFire Investigator 12/27/23 documented as of this encounter
--- OUTSIDE RECORDS SUMMARY | 2024-12-05 15:17 | XMS_ITS | Patient Health Record ---
Author Organization [facility] Address [address] [place] [address] Care Team Providers Care Line Cook Name Role Phone Radha Rodriguez Primary Care Provider Jaylan Clancy Unavailable [phone] Allergies Allergen (clinical drug ingredient) Drug/Non Drug Allergy documented on EMR Reaction Allergy Type Onset Date Status trazodone Trazodone HCl Unknown Drug Allergy Act arvin quetiapine Quetiapine Fumarate Unknown Drug Allergy Active morphine Morphine Sulfate Unknown Drug Allergy Active diphenhydramine Benadryl Unknown Drug Allergy A ctive sea food (uncoded) Unknown Allergy A ctive Reason For Referral Referring Provider First Name Radha Referring Provider Last Name Pablo Referred Organization [facility] Referred Provider Jaylan Neal Referred Address [address] [facility],[place], [place],[address], Referred Provider Specialty Gastroentero logy General Notes Please see if a [facility] referral is on file or needed for office visit with Dr. Neal on 06-20-2024. [facility] Dawn 05/09/2024 07:44:46 AM EDT > eligible, needs referrral...Requested from [facility] Referral Priority Routine Medications Medication SIG (Take, Route, Frequency, Duration) Notes [...] DAILY Oral for 30 Active Vitamin A 03574 UNIT TAKE 1 CAPSULE BY M OUTH EVERY DAY Oral for 30 Active Pantoprazole Sodium 40 MG 1 tablet Orall y Once a day for 30 day(s) 05/30/2022 Active Pantoprazole Sodium 40 MG 1 tablet Orall y Once a day for 30 day(s) 05/26/2023 Active Pantoprazole Sodium 40 MG 1 tablet Orall y Once a day for 30 day(s) 05/25/2022 Active Immunizations Vaccine Route Administration Date Status Comme nts Influenza Unknown 12/29/2019 Refused Problems Problem Type SNOMED Code ICD Code Onset Dates Problem Status W/U Status Risk Notes Problem 68835285 Epigastric abdom inal pain (R10.13) Active confirmed Problem 733288730 Irritable bowel syndrome with diarrhea (K58.0) Active confirmed Problem Elevated liver enzymes level (129508428) Elevated liver function tests (R79.89) Active confirmed Problem 732926889 Fatty liver (K76.0) Active confirmed Problem 410374826 Gastroesophageal reflux disease, esophagitis presence not specified (K21.9) Active confirmed Problem 731333188 Abdominal pain, right upper quadrant (R10.11) Active confirmed Encounters Encounter Location Date Provider Diagnosis [facility] [address] [place] [phone] 01/26/2024 Jaylan Neal [facility] [address] [place] [phone] 06/16/2024 Jaylan Neal Plan Of Treatment Pending Test Test Name Order Date BUN 12/29/2019 CREATININE 12/29/2019 LIVER PROFILE 12/29/2019 LIVER PROFILE 02/04/2020 LIVER PROFILE 04/09/2020 CBC w DIFF 12/29/2019 PROTHROMBIN TIME (PT, INR) 12/29/2019 [id number] (A1A) 12/29/2019 CAROTENE 12/29/2019 CERULOPLASMIN 12/29/2019 MITOCHONDRIAL [...] Start Date Coverage End Date MEDICAID OF [employer] [address] [place] [id number] HARMAN LEUNG Self - patient is the insured Medical (General) History Medical History History ICD Code Asthma Denies [...]
--- OUTSIDE RECORDS SUMMARY | 2024-12-05 15:17 | XMS_ITS ---
Author Organization [facility] Address [address] [place] [address] Care Team Providers Care Grab Driver Name Role Phone Radha Rodriguez Primary Care Provider Rolandaa Jaylan Alaniz Unavailable [phone] REASON FOR VISIT FATTY LIVER Encounters Encounter Location Date Provider Diagnosis [facility] [address] [place] [address] 06/20/2024 Jaylan Neal Plan Of Treatment No Information Progress Notes * ABA LEUNGSDOB: 0 (44 yo F)Acc No.[id number]:06/20/2024 Progress Notes Patient:?HARMAN LEUNG Provider:?Jaylan Neal MD :1980???Age:43 Y???Sex:Female D ate:06/20/2024 Address:[address] [place] [address], [facility] Pcp:JACINTO Ramos Subjective: * Chief Complaints: * ???1. FATTY LIVER. * Medical History:? Objective: * [...]
--- OUTSIDE RECORDS SUMMARY | 2024-12-05 15:17 | XMS_ITS | Encounter Summary ---
Author Organization [employer] Address [address] [facility] 7t [place] [address] Care Team Providers Care Box Toe Stitcher Name Role Phone Marc Nicolas Primary Care Provider Unavail able Radha Shah COMPUTER SYSTEMS DESIGNER Primary Care Provider [phone] Colby Hirsch Unavailable Unavailable [facility] COMPUTER SYSTEMS DESIGNER Primary Care Provider [phone] Reason for Visit * Reason Comments Med Refill Encounter Details Date Type Department Care Team (Late Contact Info) Description 04/08/2023 Refill [facility] MEDICINE [address] [place] [address] Marc Nicolas AGNP Mixed anxiety and depressive [...] Description 01/24/2025 2:00 PM EDT Clinical Support [address] [address] Kira Bansal RN 01/24/2025 2:30 PM EDT Office Visit [facility] [address] [place] [address] [place] [address] [place]Yecenia [facility] [address] [place] [address] documented as of this encounter Visit Diagnoses Diagnosis Mixed anxiety and depressive disorder Dysthymic disorder documented in this encounter Additional Health Concerns Assessment Noted Time PHQ-9 Depression Total Score: 0 04/02/20 2:10 PM EDT documented as of this encounter Care Teams Box Toe Stitcher Relationship Specialty Start Date End Date Marc Nicolas AGNP PCP - General Family Medicine 10/22/22 04/20/23 Radha Shah FNP [address] [place] [address] PCP - General Family Medicine 04/21/23 04/25/24 ThornfieldYecenia FNP [address] [place] [address] PCP - General Family Medicine 04/26/24 Colby Hirsch FNP [address] [place] [address] Nurse Practitioner Family Medicine 07/13/23 Candice Ugarte Site ManagerCytogenetics Laboratory Manager 12/27/23 documented as of this encounter
--- OUTSIDE RECORDS SUMMARY | 2024-12-05 15:17 | XMS_ITS | Encounter Summary ---
Author Organization [employer] Address 75 [facility] 7t [place] [address] Care Team Providers Care Paint Spray Inspector Name Role Phone Marc Nicolas Primary Care Provider Unavail able Radha Shah MOBILE EQUIPMENT SERVICER Primary Care Provider [phone] Colby Hirsch MOBILE EQUIPMENT SERVICER Unavailable Unavailable [facility] MOBILE EQUIPMENT SERVICER Primary Care Provider [phone] Reason for Visit * Reason Comments Med Refill Encounter Details Date Type Department Care Team (Late Contact Info) Description 04/07/2023 Refill [facility] PEDS [address] [place] [address] Marc Nicolas AGNP Multiple joint pain Social [...] Upcoming Encounters Date Type Department Care Team ([facility] Contact Info) Description 01/24/2025 2:00 PM EDT Clinical Support [address] [phone] Kira Bansal RN 01/24/2025 2:30 PM EDT Office Visit [facility] MEDICINE [address] [place] [address], [place] [address] HendersonYecenia FNP [address] [place] [address] documented as of this encounter Visit Diagnoses Diagnosis Multiple joint pain Pain in joint, multiple sites documented in this encounter Additional Health Concerns Assessment Noted Time PHQ-9 Depression Total Score: 0 04/02/20 2:10 PM EDT documented as of this encounter Care Teams Paint Spray Inspector Relationship Specialty Start Date End Date Marc Nicolas AGNP PCP - General Family Medicine 10/22/22 04/20/23 Radha Shah FNP [address] [place] [address] PCP - General Family Medicine 04/21/23 04/25/24 HendersonYecenia FNP [address] [place] [address] PCP - General Family Medicine 04/26/24 Colby Hirsch FNP [address] [place] [address] Nurse Practitioner Family Medicine 07/13/23 Candice Ugarte Pool ServicerAudio Operator 12/27/23 documented as of this encounter
== END 2024-12-05 12:58 | disposition home or self-care (01) ==
LOC: HO.HGS 12:28
PROVIDERS: PCP Nurse Practitioner Family; Visit Provider Surgery
DX: M79.89 Other specified soft tissue disorders (principal)
CPT/HCPCS: 99214

== ENCOUNTER → 2024-12-05 12:28 | Outpatient (BNVA) | payer MEDICAID, SELFPAY | PROVIDERS: PCP Nurse Practitioner Family; Visit Provider Surgery | DX: M79.89 Other specified soft tissue disorders (principal) | CPT/HCPCS: 99212 ==

== ENCOUNTER 2024-12-07 11:56 | Outpatient (REF) | payer MEDICAID, SELFPAY ==
--- NOTE | ~2024-12-07 | XR_ITS ---
EXAMINATION: XR WRIST, LEFT CLINICAL INFORMATION: wrist pain for 1 month COMPARISON: None available. TECHNIQUE: PA, lateral, oblique, and scaphoid views of the left wrist. FINDINGS: The bones and soft tissues are normal. No fracture. Alignment is anatomic with normal joint spaces. No erosions or abnormal soft tissue calcifications. XR/XR wrist LT min 3V IMPRESSION: Normal left wrist. Electronically signed by: Ricky Rincon MD 12/07/2024 02:05 PM EDT
--- OUTSIDE RECORDS SUMMARY | 2024-12-07 14:53 | XMS_ITS | Patient Health Record ---
Author Organization [facility] Address [address] [place] [address] Care Team Providers Care Supervisor Of Communications Name Role Phone Radha Rodriguez Primary Care Provider Jaylan Clancy Unavailable [phone] Allergies Allergen (clinical drug ingredient) Drug/Non Drug [...] Referring Provider Last Name Pablo Referred Organization [facility] Referred Provider Jaylan Neal Referred Address [address] [facility],[place], [place],[address], Referred Provider Specialty Gastroentero logy General Notes Please see if a surgical specialty hospital[facility] referral is on file or needed for office visit with Dr. Neal on 06-20-2024. [facility] Asha smith Dawn 05/09/2024 07:44:46 AM EDT > eligible, needs referrral...Requested from [facility] Referral Priority Routine Medications Medication SIG [...] DAILY Oral for 30 Active Vitamin A 59460 UNIT TAKE 1 CAPSULE BY M OUTH [...] Problem Status W/U Status Risk Notes Problem 97128183 Epigastric abdom inal pain (R10.13) Active confirmed Problem 843988828 Irritable bowel syndrome with diarrhea (K58.0) Active confirmed Problem Elevated liver enzymes level (819306050) Elevated liver function tests (R79.89) Active confirmed Problem 762395213 Fatty liver (K76.0) Active confirmed Problem 688309741 Gastroesophageal reflux disease, esophagitis presence not specified (K21.9) Active confirmed Problem 445859969 Abdominal pain, right upper quadrant (R10.11) Active confirmed Encounters Encounter Location Date Provider Diagnosis [facility] [address] [place] [address] 01/26/2024 Jaylan Neal [facility] [address] [place] [address] 06/16/2024 Jaylan Neal Plan Of Treatment Pending Test Test Name Order Date BUN 12/29/2019 CREATININE 12/29/2019 LIVER PROFILE 12/29/2019 LIVER PROFILE 02/04/2020 LIVER PROFILE 04/09/2020 CBC w DIFF 12/29/2019 PROTHROMBIN TIME (PT, INR) 12/29/2019 [id number] (A1A) 12/29/2019 CAROTENE 12/29/2019 CERULOPLASMIN 12/29/2019 MITOCHONDRIAL [...] Start Date Coverage End Date MEDICAID OF [employer] [address] [place] [id number] HARMAN LEUNG Self - patient is the insured Medical (General) History Medical History History ICD Code Asthma Denies SC,CVA,renal disease Migraines Anxiety, depression, bipolar disease NIDDM [...]
--- OUTSIDE RECORDS SUMMARY | 2024-12-07 14:53 | XMS_ITS ---
Author Organization [facility] Address [address] [place] [address] Care Team Providers Care Platen Builder Up Name Role Phone Radha Rodriguez Primary Care Provider Jaylan Clancy Unavailable [phone] REASON FOR VISIT Patient presents today for FATTY LIVER Encounters Encounter Location Date Provider Diagnosis [facility] [address] [place] [address] 06/20/2024 Jaylan Neal Plan Of Treatment No Information Progress Notes * MADHU JAZLYNHAYLEESDOB: 0 (44 yo F)Acc No.[id number]:06/20/2024 Progress Notes Patient:?HARMAN LEUNG Provider:?Jaylan Neal MD :1980???Age:43 Y???Sex:Female D ate:06/20/2024 Address:[address] [place], [place] [id number] Pcp:JACINTO Ramos Subjective: * Chief Complaints: * [...] MD Date:? 024 Generated for Ashlee perez/Lisa/eTransmitting on:?12/07/2024 11:08 AM EDT
--- OUTSIDE RECORDS SUMMARY | 2024-12-07 14:54 | XMS_ITS ---
Author Organization [facility] Address [address] [place] [address] Care Team Providers Care Family Living Educator Name Role Phone Radha Rodriguez Primary Care Provider Jaylan Clancy Unavailable [phone] REASON FOR VISIT cancelled appt on 06/20/2024 Encounters Encounter Location Date Provider Diagnosis [facility] [address] [place] [address] 06/16/2024 Jaylan Neal Plan Of Treatment No Information Progress Notes * ABA LEUNGSDOB: 0 (43 yo F)Acc No.[id number]:06/16/2024 Patient:?HARMAN LEUNG :1980???Age:43 Y???Sex:Female Address:[address] [facility] [address], [place], [address] * true * Date:? Generated for Hei chris/Lisa/eTransmitting on:?12/07/2024 02:53 PM EDT
== END 2024-12-07 11:57 | disposition home or self-care (01) ==
LOC: HO.HHCX 11:56
PROVIDERS: Visit Provider Family Medicine
DX: M25.532 Pain in left wrist (principal)
CPT/HCPCS: 73110

== ENCOUNTER → 2024-12-07 11:57 | Outpatient (BNV) | payer MEDICAID, SELFPAY | PROVIDERS: Visit Provider Radiology Diagnostic Radiology | DX: M25.532 Pain in left wrist (principal) | CPT/HCPCS: 73110 ==

== ENCOUNTER 2024-12-22 14:08 | Outpatient (REF) | payer MEDICAID, SELFPAY ==
--- OUTSIDE RECORDS SUMMARY | 2024-12-22 14:26 | XMS_ITS ---
Author Organization [facility] Address [address] [place] [address] Care Team Providers Care Manufacturing Applications Engineer Name Role Phone Radha Rodriguez Primary Care Provider Rolandaa Jayaln Alaniz Unavailable [phone] REASON FOR VISIT FATTY LIVER Encounters Encounter Location Date Provider Diagnosis [facility] [address] [place] [address] 06/20/2024 Jaylan Neal Plan Of Treatment No Information Progress Notes * ABA LEUNGSDOB: 0 (44 yo F)Acc No.[id number]:06/20/2024 Progress Notes Patient:?HARMAN LEUNG Provider:?Jaylan Neal MD :1980???Age:43 Y???Sex:Female D ate:06/20/2024 Address:[address] [place] [address], [facility] Pcp:JACINTO Ramos Subjective: * Chief Complaints: * [...] MD Date:? 024 Generated for Ashlee perez/Lisa/eTransmitting on:?12/22/2024 12:36 PM EDT
--- OUTSIDE RECORDS SUMMARY | 2024-12-22 14:26 | XMS_ITS | Encounter Summary ---
Author Organization [employer] Address 75 [facility] 7t [place] [address] Care Team Providers Care Finish Carpenter Name Role Phone Radha Shah PEST CONTROL WORKER HELPER Primary Care Provider [phone] Colby Hirsch Unavailable Unavailable [facility] Primary Care Provider [phone] Reason for Visit * Reason Comments Med Refill Encounter Details Date Type Department Care Team (Late st Contact Info) Description 11/24/2023 Refill [facility] MEDICINE [address] [place] [address] Radha Shah FNP [address] [place] [address] Multiple joint pain Social History Tobacco Use [...] Clinical Support [facility] MEDICINE [address] [place] [address] Kira Bansal RN 01/24/2025 2:30 PM EDT Office Visit [facility] MEDICINE [address] [place] [address] GuytonYecenia whipple FNP [address] [place] [address] documented as of this encounter Visit Diagnoses Diagnosis Multiple joint pain Pain in joint, multiple sites documented in this encounter Additional Health Concerns Assessment Noted Time PHQ-9 Depression Total Score: 8 09/02/19 24 11:12 AM EST documented as of this encounter Care Teams Finish Carpenter Relationship Specialty Start Date End Date Radha Shah FNP [address] [place] [address] PCP - General Family Medicine 04/21/23 04/25/24 Yecenia Frias FNP [address] [place] [address] PCP - General Family Medicine 04/26/24 Colby Hirsch FNP [address] [place] [address] Nurse Practitioner Family Medicine 07/13/23 Candice Ugarte Electric Motor AssemblerSchool Lunch Monitor 12/27/23 documented as of this encounter
--- OUTSIDE RECORDS SUMMARY | 2024-12-22 14:26 | XMS_ITS | Encounter Summary ---
Author Organization [employer] Address [address] [facility] 7t [place] [address] Care Team Providers Care Typesetting Supervisor Name Role Phone Marc Nicolas Primary Care Provider Unavail able Radha Shah GENERAL LABOR Primary Care Provider [phone] Colby Hirsch Unavailable Unavailable [facility] GENERAL LABOR Primary Care Provider [phone] Reason for Visit * Reason Comments Med Refill Encounter Details Date Type Department Care Team (Late st Contact Info) Description 04/08/2023 Refill [facility] MEDICINE [address] [place] [address] Marc Nicolas AGNP Schizoaffective disorder, depressive type [...] Description 01/24/2025 2:00 PM EDT Clinical Support [facility] MEDICINE [address] [place] [address] Kira Bansal RN 01/24/2025 2:30 PM EDT Office Visit [facility] MEDICINE [address] [place] [address] Yecenia Frias FNP [address] [place] [address] documented as of this encounter Visit Diagnoses Diagnosis Schizoaffective disorder, depressive type (CMS/HCC) Schizoaffective disorder, unspecified condition Mixed anxiety and depressive disorder Dysthymic disorder documented in this encounter Additional Health Concerns Assessment Noted Time PHQ-9 Depression Total Score: 0 04/02/20 2:10 PM EDT documented as of this encounter Care Teams Typesetting Supervisor Relationship Specialty Start Date End Date Marc Nicolas AGNP PCP - General Family Medicine 10/22/22 04/20/23 Radha Shah FNP [address] [place] [address] PCP - General Family Medicine 04/21/23 04/25/24 Yecenia Frias FNP [address] [place] [address] PCP - General Family Medicine 04/26/24 Colby Hirsch FNP [address] [place] [address] Nurse Practitioner Family Medicine 07/13/23 Candice Ugarte Precision Lens TechnicianComposing Room Supervisor 12/27/23 documented as of this encounter
--- OUTSIDE RECORDS SUMMARY | 2024-12-22 14:26 | XMS_ITS | Patient Health Record ---
Author Organization [facility] Address [address] [place] [address] Care Team Providers Care Airline Attendant Name Role Phone Radha Rodriguez Primary Care Provider Jaylan Clancy Unavailable [phone] Allergies Allergen (clinical drug ingredient) Drug/Non Drug [...] Referring Provider Last Name Pablo Referred Organization [facility] Referred Provider Jaylan Neal Referred Address [address] [facility],[place], [place],[address], Referred Provider Specialty Gastroentero logy General Notes Please see if a [facility] referral is on file or needed for office visit with Dr. Neal on 06-20-2024. [facility] was Asha smith Dawn 05/09/2024 07:44:46 AM EDT > eligible, needs referrral...Requested from [facility] Referral Priority Routine Medications Medication SIG (Take, [...] DAILY Oral for 30 Active Vitamin A 19295 UNIT TAKE 1 CAPSULE BY M OUTH [...] Problem Status W/U Status Risk Notes Problem 14864005 Epigastric abdom inal pain (R10.13) Active confirmed Problem 771701056 Irritable bowel syndrome with diarrhea (K58.0) Active confirmed Problem Elevated liver enzymes level (920930201) Elevated liver function tests (R79.89) Active confirmed Problem 916256191 Fatty liver (K76.0) Active confirmed Problem 895028602 Gastroesophageal reflux disease, esophagitis presence not specified (K21.9) Active confirmed Problem 897957350 Abdominal pain, right upper quadrant (R10.11) Active confirmed Encounters Encounter Location Date Provider Diagnosis [facility] [address] [place] [phone] 01/26/2024 Jaylan Neal [facility] [address] [place] [address] 06/16/2024 Jaylan Neal Plan Of Treatment Pending Test Test Name Order Date BUN 12/29/2019 CREATININE 12/29/2019 LIVER PROFILE 12/29/2019 LIVER PROFILE 02/04/2020 LIVER PROFILE 04/09/2020 CBC w DIFF 12/29/2019 PROTHROMBIN TIME (PT, INR) 12/29/2019 [id number] (A1A) 12/29/2019 CAROTENE 12/29/2019 CERULOPLASMIN 12/29/2019 MITOCHONDRIAL [...] Start Date Coverage End Date MEDICAID OF [employer] [address] [place] [id number] HARMAN LEUNG Self - patient is the insured Medical (General) History Medical History History ICD Code Asthma Denies NC,CVA,renal disease Migraines Anxiety, depression, bipolar disease NIDDM EGD [place] [address] Romero described as basically unremarkable--gastric biopsies were normal--no sig. HH GERD--EGD 11/2017 with ne [facility] a small HH. Biopsies neg. for [...]
--- OUTSIDE RECORDS SUMMARY | 2024-12-22 14:26 | XMS_ITS | Encounter Summary ---
Author Organization [employer] Address [address] [facility] 7t [place] [address] Care Team Providers Care Political Theory Professor Name Role Phone Ruth Hoffmann ASSOCIATE FINANCIAL ANALYST Primary Care Provider Marc Nava Primary Care Provider Unavail able Radha Shah ASSOCIATE FINANCIAL ANALYST Primary Care Provider [phone] Colby HirschP Unavailable Unavailable [facility] ASSOCIATE FINANCIAL ANALYST Primary Care Provider [phone] Reason for Visit * Reason Onset Date Comments Appointment Request 10/01/2022 Encounter Details Date Type Department Care Team (Late st Contact Info) Description 10/01/2022 Telephone [facility] MEDICINE [address] [place] [address] Ruth Hoffmann FNP Appointment Request Social History [...] 01/24/2025 2:00 PM EDT Clinical Support [address] [address] Kira Bansal RN 01/24/2025 2:30 PM EDT Office Visit [address] [address] Yecenia Frias FNP [address] [place] [address] documented as of this encounter Visit Diagnoses Not on filedocumented in this encounter Care Teams Political Theory Professor Relationship Specialty Start Date End Date Ruth Hoffmann FNP PCP - General Family Medicine 07/21/22 10/21/22 Marc Nicolas AGNP PCP - General Family Medicine 10/22/22 04/20/23 Radha Shah FNP [address] [place] [address] PCP - General Family Medicine 04/21/23 04/25/24 Yecenia Frias FNP [address] [place] [address] PCP - General Family Medicine 04/26/24 Colby Hirsch FNP [address] [place] [address] Nurse Practitioner Family Medicine 07/13/23 Candice Ugarte Director BioinformaticsBranch Associate 12/27/23 documented as of this encounter
--- OUTSIDE RECORDS SUMMARY | 2024-12-22 14:26 | XMS_ITS ---
Author Organization [facility] Address [address] [place] [address] Care Team Providers Care Chinchilla Machine Operator Name Role Phone Radha Rodriguez Primary Care Provider Jaylan Clancy Unavailable [phone] REASON FOR VISIT Patient presents today for FATTY LIVER Encounters Encounter Location Date Provider Diagnosis [facility] [address] [place] [address] 06/20/2024 Jaylan Neal Plan Of Treatment No Information Progress Notes * MADHU JAZLYNHAYLEESDOB: 0 (44 yo F)Acc No.[id number]:06/20/2024 Progress Notes Patient:?HARMAN LEUNG Provider:?Jaylan Neal MD :1980???Age:43 Y???Sex:Female D ate:06/20/2024 Address:[address] [place], [place] [address] Pcp:JACINTO Ramos Subjective: * Chief Complaints: * [...]
--- OUTSIDE RECORDS SUMMARY | 2024-12-22 14:26 | XMS_ITS | Encounter Summary ---
Author Organization [employer] Address 75 [facility] 7t [place] [address] Care Team Providers Care Materials Development Engineer Name Role Phone Radha Shah LAMP SHADES SUPERVISOR Primary Care Provider [phone] Colby Hirsch Unavailable Unavailable [facility] LAMP SHADES SUPERVISOR Primary Care Provider [phone] Encounter Details Date Type Department Care Team (Late st Contact Info) Description 10/29/2023 Orders Only [facility] MED & PEDS [address] [place] [address] Radha Shah FNP [address] [place] [address] Social History Tobacco Use Types Packs/Day Years [...] Description 01/24/2025 2:00 PM EDT Clinical Support [address] [address] Kira Bansal RN 01/24/2025 2:30 PM EDT Office Visit [address] [address] Yecenia Frias FNP [address] [place] [address] documented as of this encounter Visit Diagnoses Not on filedocumented in this encounter Additional Health Concerns Assessment Noted Time PHQ-9 Depression Total Score: 8 09/02/19 24 11:12 AM EST documented as of this encounter Care Teams Materials Development Engineer Relationship Specialty Start Date End Date Radha Shah FNP [address] [place] [address] PCP - General Family Medicine 04/21/23 04/25/24 Yecenia Frias FNP [address] [place] [address] PCP - General Family Medicine 04/26/24 Colby Hirsch FNP [address] [place] [address] Nurse Practitioner Family Medicine 07/13/23 Candice Ugarte Mechanical Press OperatorBox Sealing Machine Catcher 12/27/23 documented as of this encounter
--- OUTSIDE RECORDS SUMMARY | 2024-12-22 14:26 | XMS_ITS | Encounter Summary ---
Author Organization [employer] Address [address] [facility] 7t [place] [address] Care Team Providers Care Complex Case Manager Name Role Phone Radha Shah [facility] Primary Care Provider [phone] Colby Hirsch ROUNDER HAND Unavailable Unavailable [facility] Primary Care Provider [phone] Reason for Visit * Reason Comments Med Refill Encounter Details Date Type Department Care Team (Late st Contact Info) Description 06/04/2023 Refill [facility] MEDICINE [address] [place] [address] Marilee Buckner FNP [address] [place] [address] Dept [place] [address] Multiple joint pain; Mixed anxiety and depressive [...] 2:00 PM EDT Clinical Support [facility] MEDICINE [address] [place] [address] Kira Bansal RN 01/24/2025 2:30 PM EDT Office Visit [facility] MEDICINE [address] [place] [address] WinthropYecenia [address] [address] documented as of this encounter Visit Diagnoses Diagnosis Multiple joint pain Pain in joint, multiple sites Mixed anxiety and depressive disorder Dysthymic disorder documented in this encounter Additional Health Concerns Assessment Noted Time PHQ-9 Depression Total Score: 0 04/02/20 23 2:10 PM EDT documented as of this encounter Care Teams Complex Case Manager Relationship Specialty Start Date End Date Radha Shah FNP [address] [place] [address] PCP - General Family Medicine 04/21/23 04/25/24 WinthropYecenia whipple FNP [address] [place] [address] PCP - General Family Medicine 04/26/24 Colby Hirsch FNP [address] [place] [address] Nurse Practitioner Family Medicine 07/13/23 Candice Ugarte Rounding Machine TenderHat Trimmer 12/27/23 documented as of this encounter
--- OUTSIDE RECORDS SUMMARY | 2024-12-22 14:26 | XMS_ITS | Encounter Summary ---
Author Organization [employer] Address [address] [facility] [address] [place] [address] Care Team Providers Care Biztalk Consultant Name Role Phone Marc Nicolas Primary Care Provider Unavail able Radha Shah [employer] Primary Care Provider [phone] Colby Hirsch Unavailable Unavailable [facility] [employer] Primary Care Provider [phone] Reason for Visit * Reason Onset Date Comments Results 04/09/2023 Encounter Details Date Type Department Care Team (Late st Contact Info) Description 04/09/2023 Telephone [facility] [address] [place] [address] Marc Nicolas AGNP Results Social History Tobacco [...] AM EDT FYI T/C to pt. Through [employer] id - [id number] for below message. Pt. States she is having apt. With Dr. Sims on 05/03/2023 and wants to discuss on that day. Pt. Advised to give call back on [phone] if any questions or concerns. Pt. Verbally agreed and understood. Please review and advise if needed. * Telephone Encounter - Romeo Guido Child - 04/09/2023 12:19 PM EDT Tc from pt requesting status on results for Liver that were done a moth ago pt states. Please contact pt at [phone] Nepali Speaker documented in this encounter Plan of Treatment Upcoming Encounters Date Type Department Care Team (Late st Contact Info) Description 01/24/2025 2:00 PM EDT Clinical Support [address] [id number] Kira Bansal RN 01/24/2025 2:30 PM EDT Office Visit [facility] MED[facility]INE [address] [place] [phone] AltagraciaYecenia whipple FNP [address] [place] [id number] documented as of this encounter Visit Diagnoses Not on filedocumented in this encounter Additional Health Concerns Assessment Noted Time PHQ-9 Depression Total Score: 0 04/02/20 23 2:10 PM EDT documented as of this encounter Care Teams Biztalk Consultant Relationship Specialty Start Date End Date Marc Nicolas AGNP PCP - General Family Medicine 10/22/22 04/20/23 Radha Shah FNP [address] [place] [phone] PCP - General Family Medicine 04/21/23 04/25/24 Yecenia Frias FNP [address] [place] [id number] PCP - General Family Medicine 04/26/24 Colby Hirsch FNP [address] [place] [address] Nurse Practitioner Family Medicine 07/13/23 Candice Ugarte Mash GrinderDirector Athletic 12/27/23 documented as of this encounter
--- OUTSIDE RECORDS SUMMARY | 2024-12-22 14:26 | XMS_ITS | Clinical Summary ---
Author Organization [employer] Address [address] [facility] [address] [place] [address] Care Team Providers Care Puppet Developer Name Role Phone Colby Hirsch LAUNDRY MARKER SUPERVISOR Unavailable Unavailable [facility] LAUNDRY MARKER SUPERVISOR Primary Care Provider [phone] Allergies Active Allergy Reactions Criticality Noted Date [...] complication, with long-term current use of insulin ([facility]) TAKE 1 TABLET BY [...] complication, with long-term current use of insulin ([facility]) 1 each by Other route 2 times daily. 100 each 12 024 Active budesonide-formot karin (Symbicort) 80-4.5 MCG/ACT inhalerIndication s:Mild intermittent asthma without complication Inhale 2 puffs every 4-6 hours as needed for wheezing, shortness of breath 1 each 11 024 Active mirtazapine (Remeron) 7.5 MG tabletIndications :Major depression with psychotic features ([facility]) Take 1 tablet (7.5 mg) by mouth at bedtime. 30 tablet 1 024 Active risperiDONE (RisperDAL) 2 MG tabletIndications :Major Depressive Disorder Take 1 tablet (2 mg) by mouth at bedtime. 30 tablet 1 024 Active Blood Glucose Monitoring Suppl (FreeStyle Lite) w/Device kitIndications:Ty pe 2 diabetes mellitus without complication, with long-term current use of insulin ([facility]) 1 Device 2 times [...] capsule 3 025 Active oxymetazoline (Afrin Nasal Arab) 0.05 % nasal sprayIndications: Viral upper respiratory illness Administer 2 sprays into each nostril every 12 (twelve) hours if needed for congestion for up to 2 days. Do not use for more than 3 days. 30 mL 025 Active Dulaglutide (Trulicity) 0.75 MG/0.5ML solution auto-injectorIndi cations:Type 2 diabetes mellitus without complication, with long-term current use of insulin ([facility]) Inject 0.75 mg under [...] day. 30 capsule 2 025 2025 Active acetaminophen (Tylenol 8 Hour) 650 MG ER tabletIndications :Arthralgia, unspecified joint TAKE 1 TABLET BY MOUTH EVERY 6 HOURS NEEDED 60 tablet 1 025 Active ibuprofen 600 MG tabletIndications :Viral upper respiratory illness TAKE 1 TABLET BY MOUTH EVERY 6 HOURS NEEDED FOR MILD PAIN 30 tablet 1 025 Active traMADol (Ultram) 50 MG tabletIndications :Multiple joint pain Take 1 tablet (50 mg) by mouth every 12 (twelve) hours if needed for severe pain for up to 28 days. 56 tablet 025 2024 Active beta carotene (vitamin A) 3 MG (97052 UT) capsule TAKE 1 CAPSULE BY MOUTH EVERY MORNING 90 capsule 1 Active baclofen (Lioresal) 10 MG tablet Take one tablet TID PRN 30 tablet 025 Active beta carotene (vitamin A) 3 MG (08216 UT) capsule TAKE 1 CAPSULE BY MOUTH EVERY MORNING 90 capsule 1 024 2024 Discontinued(R eorder (will not trigger notification to Pharmacy)) ibuprofen 600 MG tabletIndications :Viral upper respiratory illness Take 1 tablet (600 mg) by mouth every 6 (six) hours if needed for mild pain. 30 tablet 1 025 2024 Discontinued acetaminophen (Tylenol 8 Hour) 650 MG ER tabletIndications :Arthralgia, unspecified joint TAKE 1 TABLET BY MOUTH EVERY 6 HOURS NEEDED 60 tablet 1 025 2024 Discontinued traMADol (Ultram) 50 MG tabletIndications :Multiple joint pain Take 1 tablet (50 mg) by mouth every 12 (twelve) hours if needed for severe pain for up to 28 days. Do not start before November 09, 2024. 56 tablet 025 2024 Discontinued(R eorder (will not trigger notification to Pharmacy)) Active Problems Problem Noted Date Diagnosed Date Left wrist pain 12/07/2024 Assessment & Plan (12/07/2024 2:50 PM EDT): Diffuse pain and some episodes of tingling to left wrist >1 month. -ordered left wrist XR. -given brace. -recommended follow-up with PCP PRN. Zita 12/07/24 2:50 PM XR/XR wrist LT min 3V IMPRESSION: Normal left wrist. Injury of left wrist 12/07/2024 Cellulitis of face 09/26/2024 Assessment & Plan [...] Sacha is currently on the waitlist for [facility]. She was informed to call next [...] support system PLAN: 1. Follow up with [facility]: Not recommended for follow-up 2. Patient goal [...] mechanism to manage sxs, provided her with [facility] Crisis number for after hrs support. [...] skills discussed in session. She will contact [facility] crisis number as needed. Patient with [...] in services PLAN: 1. Follow up with [facility]: Not recommended for follow-up 2. Patient goal [...] in person [place]. At this time Sacha Rodriguez meets criteria for Visit Diagnoses: Anxiety Disorder Unspecified Patient ready to address current needs Yes Strengths include coping mechanisms of walking and distracting self PLAN: 1. Follow up with [facility]: Not recommended for follow-up 2. Patient goal [...] >60 CM >60 CM Comment: NOTE: ??For -Haitian individuals, multiply the result ? by 210.Chronic Kidney Disease: ??Estimated GFR < 60 mL/min/1.41x3Slbagr Kidney Disease: ??Estimated GFR < 15 mL/min/1.73m2 [...] >60 CM >60 CM Comment: NOTE: ??For -Haitian individuals, multiply the result ? by .Chronic Kidney Disease: ??Estimated GFR < 60 mL/min/1.64f6Wiipky Kidney Disease: ??Estimated GFR < 15 mL/min/1.73m2 [...] retiring patient is now referred to new [facility] psychiatric provider. Pt is aware that appts will be via televisit and that provider will not be an [facility] employee. She gives permission to share [...] night at bedtime (not prn). Based on BELL ATTENDANT notes, she appears to be taking Clonazepam [...] organization. Date Type Department Care Team Description 12/22/2024 1:20 PM EDT Office Visit [facility] [address] [place] [phone] Bone pain (Primary Dx) 12/07/2024 11:20 AM EDT Office Visit [facility] [address] [place] [phone] Quin Victoria MD Left wrist pain (Primary Dx); Injury of left wrist, initial encounter 12/07/2024 Travel 2024 Telephone [facility] [address] [place] [phone] Yecenia Frias FNP Med Refill 2024 Refill [facility] [address] [place] [phone] Yecenia Frias, LAUNDRY MARKER SUPERVISOR 12/04/2024 Refill [facility] [address] [place] [address] Yecenia Frias FNP Viral upper respiratory illness; Multiple joint pain 11/28/2024 Refill [facility] [address] [place] [address] Yecenia Frias, LAUNDRY MARKER SUPERVISOR Arthralgia, unspecified joint 11/27/2024 Telephone [facility] [address] [place] [address] Yecenia Frias FNP Nurse Triage 11/14/2024 Patient Outreach [facility] [address] [place] [address] Yecenia Frias FNP Care Coordination ([facility] Kelly Obrien telephone call outreach) 11/14/2024 Patient Outreach [facility] [address] [place] [address] Yecenia Frias FNP Care Coordination 11/06/2024 Refill [facility] [address] [place] [address] Yecenia Frias FNP Multiple joint pain 11/03/2024 Population Health Risk Score [facility] Department [address] [place] [phone] Provider, Population Health Generic 10/31/2024 Patient Outreach [facility] [address] [place] [address] Yecenia Frias FNP Care Coordination ([facility] Kelly Obrien telephone call outreach) 10/31/2024 Refill [facility] [address] [place] [address] Yecenia Frias FNP Type 2 diabetes mellitus without complication, with long-term current use of insulin ([facility]) 10/27/2024 Telephone [facility] [address] [place] [address] Yecenia Frias FNP Results 10/27/2024 Orders Only [facility] [address] [facility] [place] [address] Yecenia Frias FNP Other polyneuropathy (Primary Dx) 10/24/2024 1:00 PM EST Clinical Support [address] [address] Kira Bansal RN Chronic midline back pain, unspecified back location (Primary Dx) 10/24/[address] [address] Kira Bansal RN Chronic midline back pain, unspecified back location (Primary Dx) 10/24/2024 Travel 10/23/2024 1:00 PM EST Office Visit [address] [address] [facility] Type 2 diabetes mellitus without complication, with long-term current use of insulin ([facility]) (Primary Dx); Other polyneuropathy; Dietary counseling; Exercise counseling; Encounter for immunization 10/23/2024 Travel 10/23/2024 Outside Procedure [facility] [address] [place] [phone] Parveen Elizabethn, OD Presbyopia of both eyes (Primary Dx) 10/20/2024 9:45 AM EST Office Visit [facility] [address] [place] [phone] Parveen Elizabethn, OD Regular astigmatism of both eyes (Primary Dx) 10/20/2024 Travel 10/13/2024 Patient Outreach [address] [address] [facility] Care Coordination ([facility] Kelly Obrien telephone call outreach ) 10/12/2024 2:00 PM EST Office Visit [facility] [address] [place] [phone] Phillip Borrego, DMD 10/12/[address] [address] Bethany Bond MD Results 10/12/2024 Orders Only [address] [address] Bethany Bond MD Urinary tract infection symptoms (Primary Dx) 10/11/2024 Patient Outreach [address] [address] Yecenia Frias FNP Pre-visit Planning ((Unable to reach for PVP screening, LVM)) 10/11/2024 Refill [facility] [address] [place] [phone] Yecenia Frias FNP Arthralgia, unspecified joint 10/10/2024 2:00 PM EST Office Visit [facility] [address] [address] Bethany Bond MD Urinary tract infection symptoms (Primary Dx); Diarrhea, unspecified type 10/02/2024 2:00 PM EST Office Visit [address] [address] Yecenia Frias FNP Viral upper respiratory illness (Primary Dx) 10/02/[address] [address] AltagraciaYecenia whipple FNP Multiple joint pain 10/02/2024 Travel 10/02/[address] [address] Yecenia Frias FNP Nurse Triage 10/01/[address] [address] Radha Shah FNP 09/29/[address] [address] [place] Med Refill 09/26/2024 5:00 PM EST Office Visit [facility] [address] [address] Quin Victoria MD Cellulitis of face (Primary Dx); Hordeolum externum of left lower eyelid 09/26/2024 Telephone [facility] [address] [place] [phone] Amy Almanza, MEREDITH 09/25/2024 2:00 PM EST Office Visit [facility] [address] [address] Debbie Madera NP Chest pain, atypical (Primary Dx); Obstructive sleep apnea syndrome; Mild intermittent asthma, unspecified whether complicated; Shortness of breath; Gastroesophageal reflux disease with esophagitis without hemorrhage 09/25/2024 Orders Only GENERIC EXTERNAL DATA DEPARTMENT Provider, Generic External Data 09/25/2024 Refill [facility] [address] [place] [address] Radha Shah FNP from Last 3 Months Immunizations Name Administration [...] Sign Reading Time Taken Comments Blood Pressure 128/84 12/22/2024 1:04 PM EDT Pulse 92 12/22/2024 1:04 PM EDT Temperature 37.4 ??C (99.3 ??F) 12/22/2024 1:04 PM ED T Respiratory Rate 23 12/22/2024 1:04 PM EDT Oxygen Saturation 95% 12/22/2024 1:04 PM EDT Inhaled Oxygen Concentration - - Weight 82.8 kg (182 lb 9.6 oz) 12/22/2024 1:04 P M EDT Height 154.9 cm (5' 1 ) 12/22/2024 1:04 PM EDT Body Mass Index 34.5 12/22/2024 1:04 PM EDT Plan of Treatment Upcoming Encounters Date Type Department Care Team (Late st Contact Info) Description 01/24/2025 2:00 PM EDT Clinical Support [facility] [address] [place] [address] [phone] Kira Bansal RN 01/24/2025 2:30 PM EDT Office Visit [facility] [address] [place] [phone] Yecenia Frias FNP [address] [place] [address] Health Maintenance Due Date Last Done Comments [...] history exists Depression Screening 10/23/2025 10/23/2024, 10/24/19 Diabetes: Foot Exam 10/23/2025 10/23/2024, 10/23/2024, 10/23/2024, [...] Procedure Name Priority Date/Time Associated Diagnosis Comments XR WRIST 3+ VIEWS LEFT Routine 12/07/2024 11:57 AM EDT Left wrist pain POCT CASSI-14 URINE DRUG SCREEN Routine 10/24/2024 [...] complication, with long-term current use of insulin ([facility]) POCT GLYCATED HEMOGLOBIN, TOTAL Routine 10/23/2024 1:15 PM EST Type 2 diabetes mellitus without complication, with long-term current use of insulin (CMS/HCC) DENTURE ADJUSTMENT Routine 10/12/2024 2: 00 PM [...] complication, with long-term current use of insulin ([facility]) BI MAMMOGRAM SCREENING TOMOSYNTHESIS BILATERAL Routine 11/16/2023 1:25 PM EDT HEPATITIS PANEL, GENERAL Routine 02/22/2023 1:46 PM EDT Nonalcoholic steatohepatitis PERIODIC ORAL EVALUATION - ESTABLISHED PATIENT Routine 05/24/2020 12:00 AM EDT PANORAMIC RADIOGRAPHIC IMAGE Routine 03/29/2015 12:00 AM EDT PROPHYLAXIS - ADULT Routine 06/06/2008 1 2:00 AM EDT from Last 3 Months or Most Recently Relevant to Health Maintenance Results * XR Wrist 3+ Views Left (12/07/2024 11:57 AM EDT) Anatomical Region Laterality Modality Upper Extremities, Wrist Left Radiogr aphic Imaging 12/07/2024 11:5 7 AM EDT Narrative 12/07/2024 2:08 PM EDT ?[facility] ?[address] ?[place] [address] ?XRay Report ? Signed ? Patient: Sacha Contreras ?MR#: [id number] ?? [id number] ? : 1980 ?Acct:[id number] ? Age/Sex: 44 / F ?ADM Date: 12/07/24 ? Loc: HO.HHCX ? Attending Dr: Quin Victoria MD ? Ordering Physician: Quin Victoria MD ?? Date of Service: 12/07/24 ?? Procedure(s): XR wrist LT min 3V ?? Accession Number(s): [id number] ? cc: Quin Victoria MD ? EXAMINATION: ?? XR WRIST, LEFT ? CLINICAL INFORMATION: ?? wrist pain for 1 month ? COMPARISON: ?? None available. ? TECHNIQUE: ?? PA, lateral, oblique, and scaphoid views of the left wrist. ? FINDINGS: ?? The bones and soft tissues are normal. No fracture. Alignment is ?? anatomic with normal joint spaces. No erosions or abnormal soft tissue ?? calcifications. ? XR/XR wrist LT min 3V ?? IMPRESSION: ?? Normal left wrist. ? Electronically signed by: ??Ricky Rincon MD ??12/07/2024 02:05 PM EDT RP ? Dictated By: ?Ricky Rincon MD ? Signed By: ?<Electronically signed by Ricky Rincon MD in OV> ?12/07/ 1405 ? DD/DT: 12/07/ 1157 ? TD/TT: 12/07/24 1200 ? Community Outreach Advocate: ? Procedure Note Sima, Image - 12/07/2024 [facility] [address] [place] [address] XRay Report Signed Patient: Xavier ContrerasR#: [id number] : 1980Acct:[id number] Age/Sex: 44 / FADM Date: 12/07/24 [facility]: Quin Victoria MD Ordering Physician: Quin Victoria MD Date of Service: 12/07/24 Procedure(s): XR wrist LT min 3V Accession Number(s): [id number] cc: Quin Victoria MD EXAMINATION: XR WRIST, LEFT CLINICAL INFORMATION: wrist pain for 1 month COMPARISON: None available. TECHNIQUE: PA, lateral, oblique, and scaphoid views of the left wrist. FINDINGS: The bones and soft tissues are normal. No fracture. Alignment is anatomic with normal joint spaces. No erosions or abnormal soft tissue calcifications. XR/XR wrist LT min 3V IMPRESSION: Normal left wrist. Electronically signed by: Ricky Rincon MD 12/07/2024 02:05 PM EDT Dictated By: Ricky Rincon MD Signed By: <Electronically signed by Ricky Rincon MD in OV> 12/07/24 1405 DD/ 1157 TD/TT: 12/07/24 1200 Community Outreach Advocate: Quin Victoria MD IMG XR PROCEDURES Final Re sult * POCT CASSI-14 Urine Drug Screen (10/24/2024 1:02 PM EST) Urine Urine specimen obtained by clean catch procedure / Unknown 10/24/2024 1:02 PM EST Kira Alford RN - 10/24/2024 1:02 PM EST UTOX cup Lot#[id number] Exp. 04/11/26 Internal Pass Control UTOX Negative for all substances. Cheryl Galan DO POINT OF CARE TEST ENTER/SANCHO T ORDERABLES Final Result * Vitamin B12/Folate, Serum Panel (10/23/2024 2:05 PM EST) Vitamin B12 273 200 - 900 pg/mL [facility] Comment:NORMAL 200-900 PG/ML INDETERMINATE 160-199 PG/ML DEFICIENT < 160 PG/ML Folate 11.9 > or = 4.0 ng/mL [facility] Comment:Reference Values:> o r = 4.0 ng/mL< 4.0 ng/mL suggests folate deficiency Methotrexate, aminopterin and folinic acid(leucovorin) are chemotherapeutic agents whose molecularstructures are similar to folate; therefore, the Architectfolate assay cannot be used for patients using these drugs. Blood Venous blood specimen / Unknown 10/23/2024 2:05 PM EST 10/23/2024 4:20 PM EST [facility] LAB BLOOD ORDERABLES Final Re sult Performing Organization Address City/[facility]/ZIP Co de Phone Number [facility] [address] [place] [phone] * TSH W/Reflex to FT4 (10/23/2024 2:05 PM EST) Only the most recent of2 resultswithin the time period is included. Pathologist [facility] TSH reflex Free T4 1.74 0.32 - 4.0 uIU/mL [facility] Blood Venous blood specimen / Unknown 10/23/2024 2:05 PM EST 10/23/2024 4:20 PM EST [facility] LAB BLOOD ORDERABLES Final Re sult Performing Organization Address City/[facility]/ZIP Co de Phone Number [facility] [address] [place] [address] [phone] * HIV-1/2 Antigen and Antibodies, Fourth Generation, with Reflexes (10/23/2024 2:05 PM EST) Pathologist [facility] HIV AB/AG Nonreactive Nonreactive [facility] Comment:HIV-1 p24 Ag and/or HIV-1/HIV-2 Ab not detected.A test result that is nonreactive does not exclude thepossibility of exposure to or infection with HIV-1 and/orHIV-2. Nonreactive results in this assay for individualswith prior exposure to HIV-1 and/or HIV-2 may be due toantigen and antibody levels that are below the limit ofdetection of this assay.The [employer] HIV Ag/Ab Combo assay result andsupplemental assay results should be interpreted inconjunction with the patient's clinical presentation,history and other laboratory results. If the results areinconsistent with clinical evidence, additional testing issuggested to confirm the result. Blood Venous blood specimen / Unknown 10/23/2024 2:05 PM EST 10/23/2024 4:20 PM EST [facility] LAB BLOOD ORDERABLES Final Re sult Performing Organization Address [facility] Co de Phone Number [facility] [address] [place] [phone] * Ferritin (10/23/2024 2:05 PM EST) Ferritin 126 10 - 250 ng/mL [facility] Blood Venous blood specimen / Unknown 10/23/2024 2:05 PM EST 10/23/2024 4:20 PM EST [facility] LAB BLOOD ORDERABLES Final Re sult Performing Organization Address [facility] de Phone Number [facility] [address] [place] [phone] * POCT Glucose (10/23/2024 1:17 PM EST) Glucose Blood, POC 101 60 - 200 mg/dL Blood Capillary blood specimen / Unknown 10/23/2024 1:17 PM EST [facility] POINT OF CARE TEST ENTER/EDIT ORDERABLES Final Result * POCT HGB A1C (10/23/2024 1:15 PM EST) Hemoglobin A1C 5.7 4.0 - 6.0 % Blood 10/23/2024 1:15 PM EST [facility] LAUNDRY MARKER SUPERVISOR POINT OF CARE TEST ENTER/EDIT ORDERABLES Final Result * Culture, Urine, Routine (10/10/2024 2:35 PM EST) Urine Urine specimen obtained by clean catch procedure / Unknown 10/10/2024 2:35 PM EST 10/10/2024 4:14 PM EST Comment:UACC Narrative [facility] - 10/12/2024 7:44 AM EST Escherichia coli Quant > 100,000 cfu/mL Escherichia coli: Ampicillin >=32(R) Escherichia coli: Cefazolin (Urine) 8(S) Escherichia coli: Cefepime <=0.12(S) Escherichia coli: Ceftriaxone <=0.25(S) Escherichia coli: Ciprofloxacin <=0.06(S) Escherichia coli: Gentamicin >=16(R) Escherichia coli: Nitrofurantoin <=16(S) Escherichia coli: Trimethoprim/Sulfamethoxazole >=320(R) Specimen Source: Urine clean catch Bethany Ritchie MD LAB MICROBIOLOGY - NERAL ORDERABLES Final Result [facility] [address] [place] [phone] * (ABNORMAL) POCT Urinalysis (10/10/2024 2:18 [...] Detected Urine 10/10/2024 2:18 PM EST Result [facility] Bethany Ritchie MD POINT OF CARE TEST EN TER/EDIT ORDERABLES Final Result * POCT Rapid Covid-19 BinaxNOW (10/02/2024 2:44 PM EST) [facility] Rapid COVID Ag Negative Swab 10/02/2024 2:44 PM EST Result [facility] POINT OF CARE TEST ENTER/EDIT ORDERABLES Final Result * POCT Rapid Influenza B OSOM (10/02/2024 2:44 PM EST) [facility] Rapid Influenza B Ag Negative Negative, Indeterminate Swab 10/02/2024 2:44 PM EST Result [facility] POINT OF CARE TEST ENTER/EDIT ORDERABLES Final Result * POCT Rapid Influenza A OSOM (10/02/2024 2:44 PM EST) [facility] Rapid Influenza A Ag Negative Negative, Indeterminate Swab Nasopharyngeal structure / Unknown 10/02/2024 2:44 PM EST Result [facility] POINT OF CARE TEST ENTER/EDIT ORDERABLES Final Result * CBC auto differential (09/25/2024 1:22 PM EST) [facility] White Blood Count 7.7 4.8 - 10.8 X10*3/uL [facility] Red Blood Count 4.60 4.20 - 5.50 X10*6/uL [facility] Hemoglobin 12.9 12.0 - 16.0 g/dl [facility] Hematocrit 39.4 37.0 - 47.0 % [facility] Mean Corpuscular Volume 85.7 80.0 - 98.0 fL [facility] Mean Corpuscular Hemoglobin 28.0 27.0 - 33.0 pg [facility] Mean Corpuscular HGB Conc 32.7 31.0 - 35.0 g/dl [facility] Red Cell Distribution Width 12.9 11.0 - 16.0 % [facility] Platelet Count 252 160 - 400 X10*3/uL [facility] Mean Platelet Volume 11.1 9.4 - 12.3 fL [facility] Neutrophils Percent Auto 58.7 45 - 73 % [facility] Imm Gran Pct Auto 0.4 0.0 - 0.4 % [facility] Lymphocytes Percent Auto 32.7 20 - 40 % [facility] Monocytes Percent Auto 6.2 2 - 11 % [facility] Eosinophils Percent Auto 1.7 0 - 4 % [facility] Basophils Percent Auto 0.3 0 - 2 % [facility] NRBC Pct Auto 0.0 0.0 - 0.2 /100WBC [facility] Neutrophils Absolute Auto 4.5 2.0 - 8.3 x10*3/uL [facility] Imm Gran Abs Auto 0.03 0.00 - 0.03 X10*3/uL [facility] Lymphocytes Absolute Auto 2.5 1.2 - 4.9 X10*3/uL [facility] Monocytes Absolute Auto 0.5 0.1 - 1.2 X10*3/uL [facility] Eosinophils Absolute Auto 0.1 0.0 - 0.4 X10*3/uL [facility] Basophils Absolute Auto 0.0 0.0 - 0.2 X10*3/uL [facility] NRBC Abs Auto 0.000 0.0 - 0.012 X10*3/uL [facility] Blood Venous blood specimen / Unknown 09/25/2024 1:22 PM EST 09/25/2024 4:00 PM EST us Debbie Madera NP LAB BLOOD ORDERABLES Final Resul t [facility] [address] [place] [phone] * (ABNORMAL) Lipid Panel, Standard (09/25/2024 1:22 PM EST) Triglycerides 109 <150 mg/dL [facility] Comment:Desirable Triglyceri de: less than 150 mg/dLBorderline High Triglyceride 150-199 mg/dLHigh Triglyceride: 200-499 mg/dLVery High Triglyceride: greater than or equal to 5OO mg/dL Cholesterol 128 <200 mg/dL [facility] Comment:Desirable Cholestero l: less than 200 mg/dLBorderline High Cholesterol: 200-239 mg/dLHigh Cholesterol: greater than 239 mg/dL LDL Cholesterol Calculated 71 <100 mg/dL [facility] Comment:Desirable LDL: less than 100 mg/dLNear Optimal/Above Optimal LDL: 110- 129 mg/dLBorderline High LDL: 130-159 mg/dLHigh LDL: 160-189 mg/dLVery High LDL: greater than or equal to 190 mg/dL HDL Cholesterol 36(L) >40 mg/dL [facility] Comment:Desirable HDL: great er than 40 mg/dL Note: This HDL assay may give artificially low results in patients with liver disease. 09/25/2024 1:22 PM EST 09/25/2024 4:00 PM EST us Generic External Data Provider LAB BLOOD ORDERAB LES Final Result [facility] [address] [place] [phone] * (ABNORMAL) Comprehensive Metabolic Panel (09/25/2024 1:22 PM EST) Sodium 140 135 - 145 mmol/L [facility] Potassium 3.9 3.3 - 5.1 mmol/L [facility] Chloride 110(H) 96 - 108 mmol/L [facility] Carbon Dioxide 24 22 - 29 mmol/L [facility] Anion Gap 10(L) 12 - 20 [facility] Urea Nitrogen (BUN) 8(L) 9 - 16 mg/dL [facility] Creatinine, Serum 0.65 0.5 - 1.4 mg/dL [facility] Estimated Glomerular Filt Rate >60 [facility] Comment:Chronic Kidney Disea se: Estimated GFR < 60 mL/min/1.20x3Uayxca Kidney Disease: Estimated GFR < 15 mL/min/1.73m2 Glucose 92 60 - 115 mg/dL [facility] Calcium 9.2 8.4 - 10.2 mg/dL [facility] Bilirubin, Total 0.5 0.0 - 1.0 mg/dL [facility] Aspartate Amino Transferase 29 5 - 31 U/L [facility] Alanine Aminotransferase 15 0 - 31 U/L [facility] Total Protein 8.0 6.5 - 8.0 g/dL [facility] Albumin Level 4.2 3.5 - 5.0 g/dL [facility] Alkaline Phosphatase 110 39 - 117 U/L [facility] Blood Venous blood specimen / Unknown 09/25/2024 1:22 PM EST 09/25/2024 4:00 PM EST us Debbie Madera HEALTH AND WELLNESS COACH LAB BLOOD ORDERABLES Final Resul t [facility] [address] [place] [phone] * Albumin, Random Urine W/Creatinine (02/07/2024 2:09 PM EDT) Creatinine, Urine 164.92 mg/dL [facility] Microalbumin Urine 16.0 mg/L [facility] Microalbum Creatinine Ratio Ur 9.7 <30 ug/mg cr [facility] Comment:Albumin/Creatinine R atio Reference Ranges: Normal: < 30 ug/mg creatinine Microalbuminuria: 30 - 300 ug/mg creatinineClinical Albuminuria: > 300 ug/mg creatinine Urine (Urine, Random) 02/07/2024 2:09 PM EDT 02/07/2024 3:55 PM EDT us Radha Botas LAUNDRY MARKER SUPERVISOR LAB URINE ORDERABLES Final Resu lt [facility] [address] [place] [phone] [phone] * BI Mammogram Screening Tomosynthesis Bilateral (11/16/2023 1:25 PM EDT) Anatomical Region Laterality Modality Breast Bilateral Mammography 11/16/2023 1:25 PM EDT Narrative 12/02/2023 6:15 AM EDT ? [facility] [place] ? [address] ?[place] [address] ? Mammography Report ? Signed ? Patient: Sacha Contreras ?MR#: [id number] ?? [id number] ? : 1980 ?Acct:[id number] ? Age/Sex: 42 / F ?ADM Date: 11/16/23 ? Loc: HO.MAMMO ? Attending Dr: Radha Shah HEALTH AND WELLNESS COACH ? Ordering Physician: Radha Shah HEALTH AND WELLNESS COACH ?Results: 1Negativ ?? e ? Date of Service: 11/16/23 ?Follow Up: 1 Year From Orig ?? inal Mammogram ? Procedure(s): MM tomosynthesis screening BI ?? Accession Number(s): [id number] ? cc: Radha Shah HEALTH AND WELLNESS COACH ? EXAMINATION: ?? MM SCREENING DIGITAL BREAST [...] by Virginia Oneal MD in OV> ? 04/11/24 0611 ? DD/ 1325 ? TD/TT: ? Community Outreach Advocate: ? Procedure Note Sima, Image - 12/02/2023 [facility] [address] [place] [address] Mammography Report Signed Patient: Doc RodriguezXavierR#: [id number] : 1980Acct:[id number] Age/Sex: 42 / FADM Date: 11/16/23 Loc: HO.MAMMO Attending Dr: Radha Shah HEALTH AND WELLNESS COACH Ordering Physician: Radha Shah NPResults: 1Negativ e Date of Service: 11/16/23Follow Up: 1 Year From Orig inal Mammogram Procedure(s): MM tomosynthesis screening BI Accession Number(s): [id number] cc: Radha Shah HEALTH AND WELLNESS COACH EXAMINATION: MM SCREENING DIGITAL BREAST TOMOSYNTHESIS, BILATERAL [...] in OV> 12/02/23 0611 DD/ 1325 TD/TT: Community Outreach Advocate: Radha Shah LAUNDRY MARKER SUPERVISOR IMG BI PROCEDURES Final Result * (ABNORMAL) Hepatitis Panel, General (02/22/2023 1:46 PM EDT) Hepatitis A Antibody Total REACTIVE( A) NON-REACT [facility] Comment: For additional information, please refer to http://Indigoz.[email or web address] 3D/faq/WQT847 (This link is being provided for informational/ educational purposes only.) Hepatitis B Surface Antibody QL REACTIVE( A) NON-REACT TAWNYAC[employer] Hepatitis B Surface Ag NON-REACT TAWNYA NON-REACT TAWNYAPlayspace [place] allyve Comment: For additional information, please refer to http://Indigoz.SADAR 3D/faq/SFQ551 (This link is being provided for informational/ educational purposes only.) Hepatitis B Core Antibody Total NON-REACT TAWNYA NON-REACT TAWNYA [facility] Comment: For additional information, please refer to http://Indigoz.SADAR 3D/faq/DMF882 (This link is being provided for informational/ educational purposes only.) Hepatitis C Antibody NON-REACT TAWNYA NON-REACT TAWNYA [facility] Comment: HCV antibody was non-reactive. There is no laboratory evidence of HCV infection. In most cases, no further action is required. However, if recent HCV exposure is suspected, a test for HCV RNA (test code 14280) is suggested. For additional information please refer to http://education.SADAR 3D/faq/VZS30j0 (This link is being provided for informational/ educational purposes only.) 02/22/2023 1:46 PM EDT 02/22/2023 1:46 PM EDT Narrative [facility] - 02/26/2023 7:51 PM EDT FASTING:NO FASTING: NO Marc Nicolas [facility] LAB BLOOD ORDERABLES Final Res ult [facility] [address], [place] [address] [employer] [place] [employer] [address] [place] [address] from Last 3 Months or Most Recently Relevant to Health Maintenance Insurance [facility] C[place] STAND AD[place] Care Teams Puppet Developer Relationship Specialty Start Date End Date Yecenia Frias FNP [address] [place] [address] PCP - General Family Medicine 04/26/24 Colby Hirsch FNP Nurse Practitioner Family Medicine 07/13/23 Candice Ugarte Home CoordinatorTimber Skidder 12/27/23
--- OUTSIDE RECORDS SUMMARY | 2024-12-22 14:26 | XMS_ITS | Encounter Summary ---
Author Organization [employer] Address 75 [facility] 7 [place] [address] Care Team Providers Care Travel Rn Name Role Phone Colby Hirsch MARKET SURVEY REPRESENTATIVE Unavailable Unavailable [facility] Primary Care Provider [phone] Reason for Visit * Reason Onset Date Comments Med Refill 2024 Encounter Details Date Type Department Care Team ([facility] st Contact Info) Description 2024 Telephone [facility] [address] [place], [place] [phone] [facility] [address] [place] [address] Med Refill Social History Tobacco Use Types [...] with others, in a hotel, in a long term, living outside on the street, on a [...] 50 MG tablet To be sent to: [facility] documented in this encounter Plan of Treatment Upcoming Encounters Date Type Department Care Team (Late st Contact Info) Description 01/24/2025 2:00 PM EDT Clinical Support [address] [address] Kira Bansal RN 01/24/2025 2:30 PM EDT Office Visit [facility] [address] [place] [address] Yecenia Frias FNP [address] [place] [address] documented as of this encounter Visit Diagnoses Not on filedocumented in this encounter Additional Health Concerns Assessment Noted Time PHQ-9 Depression Total Score: 0 10/24/19 25 1:15 PM EST documented as of this encounter Care Teams Travel Rn Relationship Specialty Start Date End Date Yecenia Frias FNP [address] [place] [address] PCP - General Family Medicine 04/26/24 Colby Hirsch FNP Nurse Practitioner Family Medicine 07/13/23 Candice Ugarte Aerial Applicator PilotChoke Reamer 12/27/23 documented as of this encounter
--- OUTSIDE RECORDS SUMMARY | 2024-12-22 14:26 | XMS_ITS | Encounter Summary ---
Author Organization [employer] Address 75 [facility] 7t [place] [address] Care Team Providers Care Line Maintainer Section Name Role Phone Marc Nicolas Primary Care Provider Unavail able Radha Shah INSTRUMENTATION SPECIALIST Primary Care Provider [phone] Colby Hirsch Unavailable Unavailable [facility] INSTRUMENTATION SPECIALIST Primary Care Provider Reason for Visit * Reason Onset Date Comments Referral 01/26/2023 Encounter Details Date Type Department Care Team (Late st Contact Info) Description 01/26/2023 Telephone [facility] [address] [place] [address] Marc Nicolas AGNP Referral Social History Tobacco [...] Description 01/24/2025 2:00 PM EDT Clinical Support [address] [address] Kira Bansal, MEREDITH 01/24/2025 2:30 PM EDT Office Visit [facility] [address] [place] [address] [facility] [address] [address] documented as of this encounter Visit Diagnoses Not on filedocumented in this encounter Additional Health Concerns Assessment Noted Time PHQ-9 Depression Total Score: 19 023 3:57 PM EDT documented as of this encounter Care Teams Line Maintainer Section Relationship Specialty Start Date End Date Marc Nicolas AGNP PCP - General Family Medicine 10/22/22 04/20/23 Radha Shah FNP [address] [place] [address] PCP - General Family Medicine 04/21/23 04/25/24 [facility] F[facility] [address] [place] [address] PCP - General Family Medicine 04/26/24 Colby Hirsch FNP [address] [place] [address] Nurse Practitioner Family Medicine 07/13/23 Candice Ugarte Jewel Hole Rough OpenerEyelet Machine Operator 12/27/23 documented as of this encounter
--- OUTSIDE RECORDS SUMMARY | 2024-12-22 14:26 | XMS_ITS | Encounter Summary ---
Author Organization [employer] Address 75 [facility] 7t [place] [address] Care Team Providers Care Technician Assistant Name Role Phone Radha Shah PROPERTY CLAIMS MANAGER Primary Care Provider [phone] Colby Hirsch Unavailable Unavailable [facility] Primary Care Provider [phone] Reason for Visit * Reason Comments Med Refill Encounter Details Date Type Department Care Team (Late st Contact Info) Description 04/12/2024 Refill [facility] [address] [place] [address] Radha Shah FNP [address] [place] [address] Multiple joint pain Social History Tobacco Use [...] Description 01/24/2025 2:00 PM EDT Clinical Support [facility] [address] [place] [address] Kira Bansal RN 01/24/2025 2:30 PM EDT Office Visit [facility] [address] [place] [address] PinnacleYecenia whipple FNP [address] [place] [address] documented as of this encounter Visit Diagnoses Diagnosis Multiple joint pain Pain in joint, multiple sites documented in this encounter Additional Health Concerns Assessment Noted Time PHQ-9 Depression Total Score: 7 03/07/20 24 10:13 AM EDT documented as of this encounter Care Teams Technician Assistant Relationship Specialty Start Date End Date Radha Shah FNP [address] [place] [address] PCP - General Family Medicine 04/21/23 04/25/24 Yecenia Frias FNP [address] [place] [address] PCP - General Family Medicine 04/26/24 Colby Hirsch FNP [address] [place] [address] Nurse Practitioner Family Medicine 07/13/23 Candice Ugarte Instructor Apparel ManufactureInformation Resources Director 12/27/23 documented as of this encounter
--- OUTSIDE RECORDS SUMMARY | 2024-12-22 14:26 | XMS_ITS | Encounter Summary ---
Author Organization [employer] Address 75 [facility] 7t [place] [address] Care Team Providers Care Filter Washer Name Role Phone Radha Shah SOFTWARE RECRUITER Primary Care Provider [phone] Colby Hirsch SOFTWARE RECRUITER Unavailable Unavailable [facility] SOFTWARE RECRUITER Primary Care Provider [phone] Encounter Details Date Type Department Care Team (Late st Contact Info) Description 04/24/2024 Orders Only [facility] [address] [place] [address] Radha Shah FNP [address] [place] [address] Elevated lipids (Primary Dx) Social History Tobacco [...] PM EDT Clinical Support [facility] [address] [place] [phone] Kira Bansal RN 01/24/2025 2:30 PM EDT Office Visit [address] [address] JemisonYecenia FNP [address] [place] [address] documented as of this encounter Procedures Procedure Name Priority Date/Time Associated Diagnosis Comments LIPID PANEL, STANDARD Routine 05/12/2024 11:00 AM EDT Elevated lipids documented in this encounter Results * (ABNORMAL) Lipid Panel, Standard (05/12/2024 11:00 AM EDT) Triglycerides 100 <150 mg/dL [facility] Comment:Desirable Triglyceri de: less than 150 mg/dLBorderline High Triglyceride 150-199 mg/dLHigh Triglyceride: 200-499 mg/dLVery High Triglyceride: greater than or equal to 5OO mg/dL Cholesterol 101 <200 mg/dL [facility] Comment:Desirable Cholestero l: less than 200 mg/dLBorderline High Cholesterol: 200-239 mg/dLHigh Cholesterol: greater than 239 mg/dL LDL Cholesterol Calculated 44 <100 mg/dL [facility] Comment:Desirable LDL: less than 100 mg/dLNear Optimal/Above Optimal LDL: 110- 129 mg/dLBorderline High LDL: 130-159 mg/dLHigh LDL: 160-189 mg/dLVery High LDL: greater than or equal to 190 mg/dL HDL Cholesterol 37(L) >40 mg/dL [facility] Comment:Desirable HDL: great er than 40 mg/dL Note: This HDL assay may give artificially low results in patients with liver disease. Blood Venous blood specimen / Unknown 05/12/2024 11:00 AM EDT 05/12/2024 11:00 AM EDT Radha CASEY LAB BLOOD ORDERABLES Final Resu lt [facility] [address] [place] [phone] [phone] documented in this encounter Visit Diagnoses Diagnosis Elevated lipids- Primary documented in this encounter Additional Health Concerns Assessment Noted Time PHQ-9 Depression Total Score: 7 03/07/20 24 10:13 AM EDT documented as of this encounter Care Teams Filter Washer Relationship Specialty Start Date End Date Radha Shah FNP [address] [place] [address] PCP - General Family Medicine 04/21/23 04/25/24 JemisonYecenia FNP [address] [place] [address] PCP - General Family Medicine 04/26/24 Colby Hirsch FNP [address] [place] [address] Nurse Practitioner Family Medicine 07/13/23 Candice Ugarte Audio Production InstructorCeramic Sprayer 12/27/23 documented as of this encounter
--- OUTSIDE RECORDS SUMMARY | 2024-12-22 14:26 | XMS_ITS | Encounter Summary ---
Author Organization [employer] Address 75 [facility] 7t [place] [address] Care Team Providers Care Network Firewall Engineer Name Role Phone Colby Hirsch CUSTOMER ENGAGEMENT REPRESENTATIVE Unavailable Unavailable [facility] CUSTOMER ENGAGEMENT REPRESENTATIVE Primary Care Provider [phone] Reason for Visit * Reason Comments bone pain Encounter Details Date Type Department Care Team (Late st Contact Info) Description 12/22/2024 1:20 PM EDT Office Visit [facility] [address] [place], [place] [phone] Bone pain (Primary Dx) Social History Tobacco Use Types [...] Mass Index 34.5 12/22/2024 1:04 PM EDT documented in this encounter Plan of Treatment Upcoming Encounters Date Type Department Care Team (Late st Contact Info) Description 01/24/2025 2:00 PM EDT Clinical Support [facility] [address] [place] [address] Kira Bansal RN 01/24/2025 2:30 PM EDT Office Visit [facility] [address] [place] [address] Yecenia Frias FNP [address] [place] [address] Scheduled Orders Name Type Priority Associated Diagnoses Orde r Schedule CBC auto differential Lab Routine Bone pain Expected: 12/22/2024 (Approximate), Expires: 12/22/2025 Vitamin D, 25-Hydroxy, Total, Immunoassay Lab Routine Bone pain Expected: 12/22/2024 (Approximate), Expires: 12/22/2025 Comprehensive Metabolic Panel Lab Routine Bone pain Expected: 12/22/2024 (Approximate), Expires: 12/22/2025 documented as of this encounter Visit Diagnoses Diagnosis Bone pain- Primary Disorder of bone and cartilage, unspecified documented in this encounter Additional Health Concerns Assessment Noted Time PHQ-9 Depression Total Score: 0 10/24/19 25 1:15 PM EST documented as of this encounter Care Teams Network Firewall Engineer Relationship Specialty Start Date End Date Yecenia Frias FNP [address] [place] [address] PCP - General Family Medicine 04/26/24 Colby Hirsch FNP Nurse Practitioner Family Medicine 07/13/23 Candice Ugarte Deputy Sheriff CustodyWired Music Operator 12/27/23 documented as of this encounter
--- OUTSIDE RECORDS SUMMARY | 2024-12-22 14:26 | XMS_ITS | Encounter Summary ---
Author Organization [employer] Address 75 [facility] 7t [place] [address] Care Team Providers Care Lay Out Maker Name Role Phone Marc Nicolas Primary Care Provider Unavail able Radha Shah Primary Care Provider [phone] Colby Hirsch Unavailable Unavailable [facility] FARM BUTCHER Primary Care Provider [phone] Reason for Visit * Reason Onset Date Comments Med Refill 04/09/2023 Encounter Details Date Type Department Care Team (Late st Contact Info) Description 04/09/2023 Refill [facility] [address] [place] [address] Marc Nicolas AGNP Mixed anxiety and depressive [...] listed in EHR, no record. Spoke with [facility] pharmacy, she is listed as Romaine Rodriguez [...] (KlonoPIN) 0.5 MG tablet Please sent to [facility] - [place], [place] - [address] [place] [address] documented in this encounter Plan of Treatment Upcoming Encounters Date Type Department Care Team (Late st Contact Info) Description 01/24/2025 2:00 PM EDT Clinical Support [facility] [address] [place] [address] Kira Bansal RN 01/24/2025 2:30 PM EDT Office Visit [facility] [address] [place] [address] Yecenia Frias FNP [address] [place] [address] documented as of this encounter Visit Diagnoses Diagnosis Mixed anxiety and depressive disorder Dysthymic disorder documented in this encounter Additional Health Concerns Assessment Noted Time PHQ-9 Depression Total Score: 0 04/02/20 2:10 PM EDT documented as of this encounter Care Teams Lay Out Maker Relationship Specialty Start Date End Date Marc Nicolas AGNP PCP - General Family Medicine 10/22/22 04/20/23 Radha Shah FNP [address] [place] [address] PCP - General Family Medicine 04/21/23 04/25/24 Yecenia Frias FNP [address] [place] [address] PCP - General Family Medicine 04/26/24 Colby Hirsch FNP [address] [place] [address] Nurse Practitioner Family Medicine 07/13/23 Candice Ugarte Shaker Plate OperatorDirector Business 12/27/23 documented as of this encounter
--- OUTSIDE RECORDS SUMMARY | 2024-12-22 14:26 | XMS_ITS | Encounter Summary ---
Author Organization [employer] Address 75 [facility] 7t [place] [address] Care Team Providers Care Supervisor Picking Crew Name Role Phone Radha Shah COGNOS LEAD Primary Care Provider [phone] Colby Hirsch Unavailable Unavailable [facility] COGNOS LEAD Primary Care Provider [phone] Reason for Visit * Reason Onset Date Comments telephone call 10/29/2023 Encounter Details Date Type Department Care Team (Late st Contact Info) Description 10/29/2023 Refill [facility] [address] [place] [address] Radha Shah FNP [address] [place] [address] Multiple joint pain Social History Tobacco Use [...] does not remember the program name. A steam frame operator from the program told her that if she still want to be in the program she needs a referral from PCP. Please call patient with any concern or questions. * Telephone Encounter - Celine Pate - 11/12/2023 9:46 AM EDT Patient walked in requesting a referral for a program. Patient does not remember the program name. A steam frame operator from the program told her that if she still want to be in the program she needs a referral from PCP. Please call patient with any concern or questions. documented in this encounter Plan of Treatment Upcoming Encounters Date Type Department Care Team (Late st Contact Info) Description 01/24/2025 2:00 PM EDT Clinical Support [facility] [address] [place] [address] Kira Bansal RN 01/24/2025 2:30 PM EDT Office Visit [facility] [address] [place] [address] Yecenia Frias FNP [address] [place] [address] documented as of this encounter Visit Diagnoses Diagnosis Multiple joint pain Pain in joint, multiple sites documented in this encounter Additional Health Concerns Assessment Noted Time PHQ-9 Depression Total Score: 8 09/02/19 24 11:12 AM EST documented as of this encounter Care Teams Supervisor Picking Crew Relationship Specialty Start Date End Date Radha Shah FNP [address] [place] [address] PCP - General Family Medicine 04/21/23 04/25/24 Yecenia Frias FNP [address] [place] [address] PCP - General Family Medicine 04/26/24 Colby Hirsch FNP [address] [place] [address] Nurse Practitioner Family Medicine 07/13/23 Candice Ugarte Brand Sales ConsultantHoney Grader And Blender 12/27/23 documented as of this encounter
--- OUTSIDE RECORDS SUMMARY | 2024-12-22 14:26 | XMS_ITS | Encounter Summary ---
Author Organization [employer] Address 75 [facility] 7t [place] [address] Care Team Providers Care Cobbler Apprentice Name Role Phone Marc Nicolas Primary Care Provider Unavail able Radha Shah NEWS CAMERA OPERATOR Primary Care Provider [phone] Colby Hirsch Unavailable Unavailable [facility] NEWS CAMERA OPERATOR Primary Care Provider [phone] Reason for Visit * Reason Comments Med Refill Encounter Details Date Type Department Care Team (Late Contact Info) Description 04/08/[address] [facility] [address] [place] [address] Marc Nicolas AGNP Mixed anxiety and depressive [...] Description 01/24/2025 2:00 PM EDT Clinical Support [address] [address] Kira Bansal RN 01/24/2025 2:30 PM EDT Office Visit [facility] [address] [place] [address] [place] [address] [place] [facility] [address] [place] [address] documented as of this encounter Visit Diagnoses Diagnosis Mixed anxiety and depressive disorder Dysthymic disorder documented in this encounter Additional Health Concerns Assessment Noted Time PHQ-9 Depression Total Score: 0 04/02/20 2:10 PM EDT documented as of this encounter Care Teams Cobbler Apprentice Relationship Specialty Start Date End Date Marc Nicolas AGNP PCP - General Family Medicine 10/22/22 04/20/23 Radha Shah FNP [address] [place] [address] PCP - General Family Medicine 04/21/23 04/25/24 CamdenYecenia FNP [address] [place] [address] PCP - General Family Medicine 04/26/24 Colby Hirsch FNP [address] [place] [address] Nurse Practitioner Family Medicine 07/13/23 Candice Ugarte Branch ControllerChemical Plant Manager 12/27/23 documented as of this encounter
--- OUTSIDE RECORDS SUMMARY | 2024-12-22 14:26 | XMS_ITS ---
Author Organization [facility] Address [address] [place] [address] Care Team Providers Care Efficiency Miner Name Role Phone Radha Rodriguez Primary Care Provider Jaylan Clancy Unavailable [phone] REASON FOR VISIT cancelled appt on 06/20/2024 Encounters Encounter Location Date Provider Diagnosis [facility] [address] [place] [address] 06/16/2024 Jaylan Neal Plan Of Treatment No Information Progress Notes * ABA LEUNGSDOB: 0 (43 yo F)Acc No.[id number]:06/16/2024 Patient:?HARMAN LEUNG :1980???Age:43 Y???Sex:Female Address:[address], [place], [address] * true * Date:? Generated for Hei chris/Lisa/eTransmitting on:?12/22/2024 02:26 PM EDT
--- OUTSIDE RECORDS SUMMARY | 2024-12-22 14:27 | XMS_ITS | Encounter Summary ---
Author Organization [employer] Address [address] [facility] 7t [place] [address] Care Team Providers Care Turbine Room Attendant Name Role Phone Radha Shah [facility] Primary Care Provider [phone] Colby Hirsch INNER TUBE CUTTER Unavailable Unavailable [facility] Primary Care Provider [phone] Reason for Visit * Reason Comments Med Refill Encounter Details Date Type Department Care Team (Late st Contact Info) Description 06/09/2023 Refill [facility] MED[facility]INE [address] [place] [address] Marilee Buckner FNP [address] [place] [address] Dept [place] [address] Multiple joint pain; Mixed anxiety and depressive [...] 2:00 PM EDT Clinical Support [facility] [address] [place] [address] Kira Bansal RN 01/24/2025 2:30 PM EDT Office Visit [facility] [address] [place] [address] [address] [address] documented as of this encounter Visit Diagnoses Diagnosis Multiple joint pain Pain in joint, multiple sites Mixed anxiety and depressive disorder Dysthymic disorder documented in this encounter Additional Health Concerns Assessment Noted Time PHQ-9 Depression Total Score: 18 023 11:25 AM EDT documented as of this encounter Care Teams Turbine Room Attendant Relationship Specialty Start Date End Date Radha Shah FNP [address] [place] [address] PCP - General Family Medicine 04/21/23 04/25/24 ElwoodYecenia whipple FNP [address] [place] [address] PCP - General Family Medicine 04/26/24 Colby Hirsch FNP [address] [place] [address] Nurse Practitioner Family Medicine 07/13/23 Candice Ugarte Programming ManagerCapacity Planning Engineer 12/27/23 documented as of this encounter
--- OUTSIDE RECORDS SUMMARY | 2024-12-22 14:27 | XMS_ITS | Encounter Summary ---
Author Organization [employer] Address [address] [facility] 7t [place] [address] Care Team Providers Care Supervisory Training Specialist Name Role Phone Marc Nicolas Primary Care Provider Unavail able Radha Shah Primary Care Provider [phone] Colby Hirsch Unavailable Unavailable [facility] PERSONNEL COORDINATOR Primary Care Provider [phone] Reason for Visit * Reason Onset Date Comments Med Refill 03/16/2023 Encounter Details Date Type Department Care Team (Late st Contact Info) Description 03/16/2023 Telephone [facility] MEDICINE [address] [place] [address] Marc Nicolas AGNP Med Refill Social History [...] 03/16/2023 3:56 PM EDT Pt scheduled for KALSOMINER RV 03/17/23 @ 10am. Tramadol refill due 03/19/23, Clonazepam refill due 03/18/23.Will forward request to PCP after KALSOMINER appt 03/17/23. * Telephone Encounter - Natividad Rio - 03/16/2023 3:36 PM EDT Tc from pt requesting medication refill on traMADol (Ultram) 50 MG tablet and clonazePAM (KlonoPIN)0.5 MG tablet documented in this encounter Plan of Treatment Upcoming Encounters Date Type Department Care Team (Late st Contact Info) Description 01/24/2025 2:00 PM EDT Clinical Support [address] [address] Kira Bansal RN 01/24/2025 2:30 PM EDT Office Visit [address] [address] [place] [address] [address] documented as of this encounter Visit Diagnoses Not on filedocumented in this encounter Additional Health Concerns Assessment Noted Time PHQ-9 Depression Total Score: 13 07/ 023 3:27 PM EDT documented as of this encounter Care Teams Supervisory Training Specialist Relationship Specialty Start Date End Date Marc Nicolas AGNP PCP - General Family Medicine 10/22/22 04/20/23 Radha Shah FNP [address] [place] [address] PCP - General Family Medicine 04/21/23 04/25/24 Indian HeadYecenia FNP [address] [place] [address] PCP - General Family Medicine 04/26/24 Colby Hirsch FNP [address] [place] [address] Nurse Practitioner Family Medicine 07/13/23 Candice Ugarte Chicken DresserDerrick Helper 12/27/23 documented as of this encounter
--- OUTSIDE RECORDS SUMMARY | 2024-12-22 14:27 | XMS_ITS | Encounter Summary ---
Author Organization [employer] Address [address] [facility] 7t [place] [address] Care Team Providers Care Tetryl Nitrator Operator Name Role Phone Marc Nicolas Primary Care Provider Unavail able Radha Shah PHYSICAL INTEGRATION PRACTITIONER Primary Care Provider [phone] Colby Hirsch Unavailable Unavailable [facility] PHYSICAL INTEGRATION PRACTITIONER Primary Care Provider [phone] Reason for Visit * Reason Comments Med Refill Encounter Details Date Type Department Care Team (Late st Contact Info) Description 03/10/2023 Refill [facility] [address] [place], [place] [phone] Marc Nicolas AGNP Mixed anxiety and depressive [...] Description 01/24/2025 2:00 PM EDT Clinical Support [facility] MEDICINE [address] [place] [address] Kira Bansal RN 01/24/2025 2:30 PM EDT Office Visit [facility] [address] [place] [address] Yecenia Frias FNP [address] [place] [address] documented as of this encounter Visit Diagnoses Diagnosis Mixed anxiety and depressive disorder Dysthymic disorder documented in this encounter Additional Health Concerns Assessment Noted Time PHQ-9 Depression Total Score: 13 023 3:27 PM EDT documented as of this encounter Care Teams Tetryl Nitrator Operator Relationship Specialty Start Date End Date Marc Nicolas AGNP PCP - General Family Medicine 10/22/22 04/20/23 [place] [address] PCP - General Family Medicine 04/21/23 04/25/24 Yecenia [place] [address] PCP - General Family Medicine 04/26/24 Colby Hirsch FNP [address] [place] [address] Nurse Practitioner Family Medicine 07/13/23 Candice Ugarte Digital Account SupervisorDigital Advertising Specialist 12/27/23 documented as of this encounter
--- OUTSIDE RECORDS SUMMARY | 2024-12-22 14:27 | XMS_ITS | Encounter Summary ---
Author Organization [employer] Address [address] [facility] 7t [place] [address] Care Team Providers Care Coat Operator Insulator Name Role Phone Marc Nicolas Primary Care Provider Unavail able Radha Shah PAID INTERNSHIP Primary Care Provider [phone] Colby Hirsch Unavailable Unavailable [facility] PAID INTERNSHIP Primary Care Provider [phone] Reason for Visit * Reason Comments Med Refill Encounter Details Date Type Department Care Team (Late st Contact Info) Description 03/10/2023 Refill [facility] [address] [place] [address] Marc Nicolas AGNP Mixed anxiety and depressive [...] Will send to PCP on 03/18/23. Has LABOR SERVICE REPRESENTATIVE scheduled 03/17/23. * Telephone Encounter - Chika Low - 03/15/2023 9:14 AM EDT Tc from patient requesting a med refill for medication tramadol [address] Nicolas documented in this encounter Plan of Treatment Upcoming Encounters Date Type Department Care Team (Late st Contact Info) Description 01/24/2025 2:00 PM EDT Clinical Support [address] [address] Kira Bansal RN 01/24/2025 2:30 PM EDT Office Visit [address] [address] Yecenia Frias FNP [address] [place] [address] documented as of this encounter Visit Diagnoses Diagnosis Mixed anxiety and depressive disorder Dysthymic disorder Multiple joint pain Pain in joint, multiple sites documented in this encounter Additional Health Concerns Assessment Noted Time PHQ-9 Depression Total Score: 13 023 3:27 PM EDT documented as of this encounter Care Teams Coat Operator Insulator Relationship Specialty Start Date End Date Marc Nicolas AGNP PCP - General Family Medicine 10/22/22 04/20/23 Radha Shah FNP [address] [place] [address] PCP - General Family Medicine 04/21/23 04/25/24 Yecenia Frias FNP [address] [place] [address] PCP - General Family Medicine 04/26/24 Colby Hirsch FNP [address] [place] [address] Nurse Practitioner Family Medicine 07/13/23 Candice Ugarte Gyro Compass TesterEscalator Attendant 12/27/23 documented as of this encounter
--- OUTSIDE RECORDS SUMMARY | 2024-12-22 14:27 | XMS_ITS | Encounter Summary ---
Author Organization [employer] Address [address] [facility] 7t [place] [address] Care Team Providers Care Keller Machine Operator Name Role Phone Radha Shah DIRECTOR OF RECRUITING Primary Care Provider [phone] Colby Hirsch DIRECTOR OF RECRUITING Unavailable Unavailable [facility] DIRECTOR OF RECRUITING Primary Care Provider [phone] Reason for Visit * Reason Comments Med Refill Encounter Details Date Type Department Care Team (Late st Contact Info) Description 06/28/2023 Refill [facility] [address] [place] [address] Radha Shah FNP [address] [place] [address] Schizoaffective disorder, depressive type (CMS/HCC) Social History [...] Description 01/24/2025 2:00 PM EDT Clinical Support [address] [address] Kira Bansal RN 01/24/2025 2:30 PM EDT Office Visit [address] [address] AltagraciaYecenia whipple [address] [address] documented as of this encounter Visit Diagnoses Diagnosis Schizoaffective disorder, depressive type (CMS/HCC) Schizoaffective disorder, unspecified condition documented in this encounter Additional Health Concerns Assessment Noted Time PHQ-9 Depression Total Score: 6 06/15/20 23 10:23 AM EDT documented as of this encounter Care Teams Keller Machine Operator Relationship Specialty Start Date End Date Radha Shah FNP [address] [place] [address] PCP - General Family Medicine 04/21/23 04/25/24 Yecenia Frias FNP [address] [place] [address] PCP - General Family Medicine 04/26/24 Colby Hirsch FNP [address] [place] [address] Nurse Practitioner Family Medicine 07/13/23 Candice Ugarte Rural Mail ContractorFire Lieutenant Marine 12/27/23 documented as of this encounter
--- OUTSIDE RECORDS SUMMARY | 2024-12-22 14:27 | XMS_ITS | Encounter Summary ---
Author Organization [employer] Address [address] [facility] 7t [place] [address] Care Team Providers Care Balance Wheel Arm Burnisher Name Role Phone Pablo Radha CASEY Primary Care Provider [phone] Colby Hirsch Unavailable Unavailable [facility] Primary Care Provider [phone] Reason for Visit * Reason Comments Med Refill Encounter Details Date Type Department Care Team (Late st Contact Info) Description 01/04/2024 Refill [facility] MEDICINE [address] [place] [address] Colby Hirsch FNP Social History Tobacco Use [...] Description 01/24/2025 2:00 PM EDT Clinical Support [address] [address] Kira Bansal RN 01/24/2025 2:30 PM EDT Office Visit [facility] [address] [place] [address] AltagraciaYecenia whipple FNP [address] [place] [address] documented as of this encounter Visit Diagnoses Not on filedocumented in this encounter Additional Health Concerns Assessment Noted Time PHQ-9 Depression Total Score: 6 12/28/19 24 11:17 AM EDT documented as of this encounter Care Teams Balance Wheel Arm Burnisher Relationship Specialty Start Date End Date Radha Shah FNP [address] [place] [address] PCP - General Family Medicine 04/21/23 04/25/24 SadievilleYecenia FNP [address] [place] [address] PCP - General Family Medicine 04/26/24 Colby Hirsch FNP [address] [place] [address] Nurse Practitioner Family Medicine 07/13/23 Candice Ugarte Test DrillerRestrictive Preparation Operator 12/27/23 documented as of this encounter
--- OUTSIDE RECORDS SUMMARY | 2024-12-22 14:27 | XMS_ITS | Encounter Summary ---
Author Organization [employer] Address [address] [facility] 7t [place] [address] Care Team Providers Care Lead Retail Sales Associate Name Role Phone Radha Shah ETCHER HAND Primary Care Provider [phone] Colby Hirsch Unavailable Unavailable [facility] Primary Care Provider [phone] Reason for Visit * Reason Comments Med Refill Encounter Details Date Type Department Care Team (Late st Contact Info) Description 02/16/2024 Refill [facility] MEDICINE [address] [place] [address] Radha Shah FNP [address] [place] [address] Multiple joint pain Social History Tobacco Use [...] Description 01/24/2025 2:00 PM EDT Clinical Support [facility] [address] [place] [address] Kira Bansal RN 01/24/2025 2:30 PM EDT Office Visit [facility] [address] [place] [address] MelroseYecenia FNP [address] [place] [address] documented as of this encounter Visit Diagnoses Diagnosis Multiple joint pain Pain in joint, multiple sites documented in this encounter Additional Health Concerns Assessment Noted Time PHQ-9 Depression Total Score: 6 12/28/19 24 11:17 AM EDT documented as of this encounter Care Teams Lead Retail Sales Associate Relationship Specialty Start Date End Date Radha Shah FNP [address] [place] [address] PCP - General Family Medicine 04/21/23 04/25/24 Yecenia Frias FNP [address] [place] [address] PCP - General Family Medicine 04/26/24 Colby Hirsch FNP [address] [place] [address] Nurse Practitioner Family Medicine 07/13/23 Candice Ugarte Long Wall Mining Machine TenderMedical Insurance Coding Specialist 12/27/23 documented as of this encounter
--- OUTSIDE RECORDS SUMMARY | 2024-12-22 14:27 | XMS_ITS | Encounter Summary ---
Author Organization [employer] Address [address] [facility] 7t [place] [address] Care Team Providers Care Woolen Suiting Shrinker Name Role Phone Radha Shah Primary Care Provider [phone] Colby Hirsch Unavailable [facility] Primary Care Provider [phone] Reason for Referral * Consultation (Routine) - Closed Specialty Diagnoses / Procedures Referred By Aminta anderson Referred To Contact Diagnoses Routine adult health maintenance Radha Shah FNP [address] [place] [address] Phone: tel: fax: [address] [address] Phone: tel: fax: Referral ID Status Reason Start Date Expiration Date V isits Requested Visits Authorized [id number] Closed Specialty Services Required 02/16/2024 02/15/2025 1 1 Encounter Details Date Type Department Care Team (Late st Contact Info) Description 02/16/2024 Orders Only [facility] MED [facility] PEDS [address] [place] [address] Radha Shah FNP [address] [place] [address] Routine adult health maintenance (Primary Dx) Social [...] Description 01/24/2025 2:00 PM EDT Clinical Support [facility] [address] [place] [address] Kira Bansal RN 01/24/2025 2:30 PM EDT Office Visit [facility] [address] [place] [address] Yecenia Frias FNP [address] [place] [address] Scheduled Referrals Name Type Priority Associated Diagnoses [...] documented as of this encounter Care Teams Woolen Suiting Shrinker Relationship Specialty Start Date End Date Radha Shah FNP [address] [place] [address] PCP - General Family Medicine 04/21/23 04/25/24 Yecenia Frias FNP [address] [place] [address] PCP - General Family Medicine 04/26/24 Colby Hirsch FNP [address] [place] [address] Nurse Practitioner Family Medicine 07/13/23 Candice Ugarte Stock DriverSheet Metal Shop Supervisor 12/27/23 documented as of this encounter
--- OUTSIDE RECORDS SUMMARY | 2024-12-22 14:27 | XMS_ITS | Encounter Summary ---
Author Organization [employer] Address [address] [facility] 7t [place] [address] Care Team Providers Care Mold Sander Name Role Phone Marc Nicolas Primary Care Provider Unavail able Radha Shah CONCRETE PAVING SUPERVISOR Primary Care Provider [phone] Colby Hirsch Unavailable Unavailable [facility] CONCRETE PAVING SUPERVISOR Primary Care Provider [phone] Reason for Visit * Reason Onset Date Comments Med Refill 03/10/2023 Encounter Details Date Type Department Care Team ([facility] Contact Info) Description 03/10/[address] [address] Marc Nicolas AGNP Med Refill Social History [...] Upcoming Encounters Date Type Department Care Team ([facility] Contact Info) Description 01/24/2025 2:00 PM EDT Clinical Support [address] [place] [address] Kira Bansal, RN 01/24/2025 2:30 PM EDT Office Visit [facility] MEDICINE [address] [place], [place] [phone] [place]enia [place] [address] documented as of this encounter Visit Diagnoses Not on filedocumented in this encounter Additional Health Concerns Assessment Noted Time PHQ-9 Depression Total Score: 13 023 3:27 PM EDT documented as of this encounter Care Teams Mold Sander Relationship Specialty Start Date End Date Marc Nicolas AGNP PCP - General Family Medicine 10/22/22 04/20/23 Radha Shah FNP [address] [place] [address] PCP - General Family Medicine 04/21/23 04/25/24 Yecenia Frias FNP [address] [place] [address] PCP - General Family Medicine 04/26/24 Colby Hirsch FNP [address] [place] [address] Nurse Practitioner Family Medicine 07/13/23 Candice Ugarte Timing Machine OperatorBusiness Leader 12/27/23 documented as of this encounter
--- OUTSIDE RECORDS SUMMARY | 2024-12-22 14:27 | XMS_ITS | Encounter Summary ---
Author Organization [email or web address] Address 75 [facility] 7t [place] [address] Care Team Providers Care Aoc Operations Intelligence Officer Name Role Phone Marc Nicolas Primary Care Provider Unavail able Radha Shah AIRCRAFT DETAIL DRAFTSPERSON Primary Care Provider [phone] Colby Hirsch Unavailable Unavailable [facility] AIRCRAFT DETAIL DRAFTSPERSON Primary Care Provider [phone] Reason for Visit * Reason Comments Med Refill Encounter Details Date Type Department Care Team ([facility] st Contact Info) Description 03/17/2023 Refill [facility] MEDICINE [address] [place] [address] Marc Nicolas AGNP Mixed anxiety and depressive [...] Description 01/24/2025 2:00 PM EDT Clinical Support [facility] [address] [place] [address] Kira Bansal RN 01/24/2025 2:30 PM EDT Office Visit [facility] [address] [place] [address] Yecenia Frias FNP [address] [place] [address] documented as of this encounter Visit Diagnoses Diagnosis Mixed anxiety and depressive disorder Dysthymic disorder documented in this encounter Additional Health Concerns Assessment Noted Time PHQ-9 Depression Total Score: 13 023 3:27 PM EDT documented as of this encounter Care Teams Aoc Operations Intelligence Officer Relationship Specialty Start Date End Date Marc Nicolas AGNP PCP - General Family Medicine 10/22/22 04/20/23 [place] [address] PCP - General Family Medicine 04/21/23 04/25/24 Y[place]enia [place] [address] PCP - General Family Medicine 04/26/24 Colby Hirsch FNP [address] [place] [address] Nurse Practitioner Family Medicine 07/13/23 Candice Ugarte Customer Relations SpecialistEnergy Broker 12/27/23 documented as of this encounter
--- OUTSIDE RECORDS SUMMARY | 2024-12-22 14:27 | XMS_ITS | Encounter Summary ---
Author Organization [employer] Address 75 [facility] 7t [place] [address] Care Team Providers Care Complaint Inspector Name Role Phone Marc Nicolas Primary Care Provider Unavail able Radha Shah BLENDER Primary Care Provider [phone] Colby Hirsch BLENDER Unavailable Unavailable [facility] BLENDER Primary Care Provider [phone] Reason for Visit * Reason Comments Med Refill Encounter Details Date Type Department Care Team (Late Contact Info) Description 04/07/[address] [facility] & PEDS [address] [place] [address] Marc Nicolas AGNP Multiple joint pain Social [...] Upcoming Encounters Date Type Department Care Team ([facility] Contact Info) Description 01/24/2025 2:00 PM EDT Clinical Support [address] [phone] Kira Bansal RN 01/24/2025 2:30 PM EDT Office Visit [facility] MEDICINE [address] [place] [address], [place] [address] ChoudrantYecenia FNP [address] [place] [address] documented as of this encounter Visit Diagnoses Diagnosis Multiple joint pain Pain in joint, multiple sites documented in this encounter Additional Health Concerns Assessment Noted Time PHQ-9 Depression Total Score: 0 04/02/20 2:10 PM EDT documented as of this encounter Care Teams Complaint Inspector Relationship Specialty Start Date End Date Marc Nicolas AGNP PCP - General Family Medicine 10/22/22 04/20/23 Radha Shah FNP [address] [place] [address] PCP - General Family Medicine 04/21/23 04/25/24 ChoudrantYecenia FNP [address] [place] [address] PCP - General Family Medicine 04/26/24 Colby Hirsch FNP [address] [place] [address] Nurse Practitioner Family Medicine 07/13/23 Candice Ugarte Oven OperatorBoom Truck Driver 12/27/23 documented as of this encounter
--- OUTSIDE RECORDS SUMMARY | 2024-12-22 14:27 | XMS_ITS | Encounter Summary ---
Author Organization [employer] Address [address] [facility] 7t [place] [address] Care Team Providers Care Public Affairs Specialist Name Role Phone Radha Shah CONCRETE VAULT MAKER Primary Care Provider [phone] Colby Hirsch Unavailable Unavailable [employer] CONCRETE VAULT MAKER Primary Care Provider [phone] Encounter Details Date Type Department Care Team (Late st Contact Info) Description 03/08/2024 Orders Only [facility] MED & PEDS [address] [place] [address] Radha Shah FNP [address] [place] [address] Social History Tobacco Use Types Packs/Day Years [...] Description 01/24/2025 2:00 PM EDT Clinical Support [address] [address] Kira Bansal RN 01/24/2025 2:30 PM EDT Office Visit [facility] MEDICINE [address] [place] [address] Yecenia Frias FNP [address] [place] [address] documented as of this encounter Visit Diagnoses Not on filedocumented in this encounter Additional Health Concerns Assessment Noted Time PHQ-9 Depression Total Score: 7 03/07/20 24 10:13 AM EDT documented as of this encounter Care Teams Public Affairs Specialist Relationship Specialty Start Date End Date Radha Shah FNP [address] [place] [address] PCP - General Family Medicine 04/21/23 04/25/24 Yecenia Frias FNP [address] [place] [address] PCP - General Family Medicine 04/26/24 Colby Hirsch FNP [address] [place] [address] Nurse Practitioner Family Medicine 07/13/23 Candice Ugarte Corporate Legal AssistantEnvironmental Services Coordinator 12/27/23 documented as of this encounter
--- OUTSIDE RECORDS SUMMARY | 2024-12-22 14:27 | XMS_ITS | Encounter Summary ---
Author Organization [employer] Address 75 [facility] 7t [place] [address] Care Team Providers Care Registered Veterinary Technician Name Role Phone Radha Shah SECURITY OPERATIONS MANAGER Primary Care Provider [phone] Colby Hirsch Unavailable Unavailable [facility] Primary Care Provider [phone] Reason for Visit * Reason Comments Med Refill Encounter Details Date Type Department Care Team (Late st Contact Info) Description 06/30/2023 Refill [facility] [address] [place] [address] Radha Shah FNP [address] [place] [address] Multiple joint pain Social History Tobacco Use [...] 2:00 PM EDT Clinical Support [facility] [address] [place] [address] Kira Bansal RN 01/24/2025 2:30 PM EDT Office Visit [facility] [address] [place] [address] ChinleYecenia FNP [address] [place] [address] documented as of this encounter Visit Diagnoses Diagnosis Multiple joint pain Pain in joint, multiple sites documented in this encounter Additional Health Concerns Assessment Noted Time PHQ-9 Depression Total Score: 6 06/15/20 23 10:23 AM EDT documented as of this encounter Care Teams Registered Veterinary Technician Relationship Specialty Start Date End Date Radha Shah FNP [address] [place] [address] PCP - General Family Medicine 04/21/23 04/25/24 Yecenia Frias FNP [address] [place] [address] PCP - General Family Medicine 04/26/24 Colby Hirsch FNP [address] [place] [address] Nurse Practitioner Family Medicine 07/13/23 Candice Ugarte Acid LoaderHotel Dining Room Cashier 12/27/23 documented as of this encounter
--- OUTSIDE RECORDS SUMMARY | 2024-12-22 14:27 | XMS_ITS | Encounter Summary ---
Author Organization [employer] Address 75 [facility] 7t [place] [address] Care Team Providers Care Ammonia Refrigeration Technician Name Role Phone Radha Sahh MOTORCYCLE MECHANIC APPRENTICE Primary Care Provider [phone] Colby Hirsch MOTORCYCLE MECHANIC APPRENTICE Unavailable Unavailable [facility] MOTORCYCLE MECHANIC APPRENTICE Primary Care Provider [phone] Reason for Visit * Reason Comments Med Refill Encounter Details Date Type Department Care Team (Late st Contact Info) Description 06/16/2023 Refill [facility] [address] [place] [address] Marc Nicolas AGNP Pain Social History Tobacco [...] Description 01/24/2025 2:00 PM EDT Clinical Support [address] [address] Kira Bansal RN 01/24/2025 2:30 PM EDT Office Visit [address] [address] Yecenia Frias FNP [address] [place] [address] documented as of this encounter Visit Diagnoses Diagnosis Pain Generalized pain documented in this encounter Additional Health Concerns Assessment Noted Time PHQ-9 Depression Total Score: 6 06/15/20 23 10:23 AM EDT documented as of this encounter Care Teams Ammonia Refrigeration Technician Relationship Specialty Start Date End Date Radha Shah FNP [address] [place] [address] PCP - General Family Medicine 04/21/23 04/25/24 [place] FNP [address] [place] [address] PCP - General Family Medicine 04/26/24 Colby Hirsch FNP [address] [place] [address] Nurse Practitioner Family Medicine 07/13/23 Candice Ugarte Retail Marketing CoordinatorStove Tender 12/27/23 documented as of this encounter
--- OUTSIDE RECORDS SUMMARY | 2024-12-22 14:27 | XMS_ITS | Encounter Summary ---
Author Organization [employer] Address 75 [facility] 7t [place] [address] Care Team Providers Care Train Gate Attendant Name Role Phone Radha Shah SEAT JOINER CHAINSTITCH Primary Care Provider [phone] Colby Hirsch SEAT JOINER CHAINSTITCH Unavailable Unavailable [facility] SEAT JOINER CHAINSTITCH Primary Care Provider [phone] Reason for Visit * Reason Onset Date Comments Results 02/16/2024 Care Coordination 02/16/[address] Kelly joshua telephone call outreached Encounter Details Date Type Department Care Team ([facility] st Contact Info) Description 02/16/2024 Telephone [facility] [address] [place] [address] Radha Shah FNP [address] [place] [address] Results; Care Coordination ([id number] [facility]rien telephone call outreached) Social History Tobacco [...] results: labs Date when done: 02/06 Facility: [facility] Please contact pt at [phone] documented in this encounter Plan of Treatment Upcoming Encounters Date Type Department Care Team (Late st Contact Info) Description 01/24/2025 2:00 PM EDT Clinical Support [address] [address] Kira Bansal, RN 01/24/2025 2:30 PM EDT Office Visit [address] [address] Yecenia Frias FNP [address] [place] [address] documented as of this encounter Visit Diagnoses Not on filedocumented in this encounter Additional Health Concerns Assessment Noted Time PHQ-9 Depression Total Score: 6 12/28/19 24 11:17 AM EDT documented as of this encounter Care Teams Train Gate Attendant Relationship Specialty Start Date End Date Radha Shah FNP [address] [place] [address] PCP - General Family Medicine 04/21/23 04/25/24 Yecenia Frias FNP [address] [place] [address] PCP - General Family Medicine 04/26/24 Colby Hirsch FNP [address] [place] [address] Nurse Practitioner Family Medicine 07/13/23 Candice Ugarte Detective Bowling AlleyCasino Cage Manager 12/27/23 documented as of this encounter
--- OUTSIDE RECORDS SUMMARY | 2024-12-22 14:27 | XMS_ITS | Encounter Summary ---
Author Organization [employer] Address 75 [facility] 7t [place] [address] Care Team Providers Care Dermatology Physician Name Role Phone Colby Hirsch ELECTRICAL SUPERVISOR Unavailable Unavailable [facility] Primary Care Provider [phone] Reason for Visit * Reason Comments Med Refill Encounter Details Date Type Department Care Team ([facility] st Contact Info) Description 10/31/[address] [facility] [address] [place], [place] [phone] [facility] 230 [place] [address] Type 2 diabetes mellitus without complication, with long-term current use of insulin ([facility]) Social History Tobacco Use Types [...] EDT Clinical Support [facility] [address] [place] [address] Kira Bansal RN 01/24/2025 2:30 PM EDT Office Visit [facility] [address] [place] [address] [facility] [address] [place] [address] documented as of this encounter Visit Diagnoses Diagnosis Type 2 diabetes mellitus without complication, with long-term current use of insulin ([facility]) documented in this encounter Additional Health Concerns Assessment Noted Time PHQ-9 Depression Total Score: 0 10/24/19 25 1:15 PM EST documented as of this encounter Care Teams Dermatology Physician Relationship Specialty Start Date End Date Yecenia Frias FNP [address] [place] [address] PCP - General Family Medicine 04/26/24 Colby Hirsch FNP Nurse Practitioner Family Medicine 07/13/23 Candice Ugarte Manager WoundLead Based Paint Technician 12/27/23 documented as of this encounter
--- OUTSIDE RECORDS SUMMARY | 2024-12-22 14:27 | XMS_ITS | Encounter Summary ---
Author Organization [employer] Address [address] [facility] 7t [place] [address] Care Team Providers Care Maxillofacial Prosthetics Dentist Name Role Phone Colby Hirsch GYNAECOLOGICAL ONCOLOGIST Unavailable Unavailable [facility] Primary Care Provider [phone] Reason for Visit * Reason Onset Date Comments FYI 06/23/2024 Encounter Details Date Type Department Care Team ([facility] Contact Info) Description 06/23/2024 Telephone [facility] [address] [place], [place] [phone] [facility] [address] [place] [address] FYI Social History Tobacco Use Types Packs/Day [...] 9:36 AM EDT Tc from Maribel at [facility] calling inform provider pt cancelled appointment with did not want to r/s. If any questions contact Maribel at [phone] documented in this encounter Plan of Treatment Upcoming Encounters Date Type Department Care Team (Late st Contact Info) Description 01/24/2025 2:00 PM EDT Clinical Support [facility] [address] [place] [address] Kira Bansal RN 01/24/2025 2:30 PM EDT Office Visit [facility] [address] [place] [address] Yecenia Frias FNP [address] [place] [address] documented as of this encounter Visit Diagnoses Not on filedocumented in this encounter Additional Health Concerns Assessment Noted Time PHQ-9 Depression Total Score: 7 03/07/20 24 10:13 AM EDT documented as of this encounter Care Teams Maxillofacial Prosthetics Dentist Relationship Specialty Start Date End Date Yecenia Frias FNP [address] [place] [address] PCP - General Family Medicine 04/26/24 Colby Hirsch FNP Nurse Practitioner Family Medicine 07/13/23 Candice Ugarte Corn GrinderJavascript Web Developer 12/27/23 documented as of this encounter
--- OUTSIDE RECORDS SUMMARY | 2024-12-22 14:27 | XMS_ITS | Encounter Summary ---
Author Organization [employer] Address 75 [facility] 7t [place] [address] Care Team Providers Care Software Development Intern Name Role Phone Radha Shah SALON DESIGNER Primary Care Provider [phone] Colby Hirsch Unavailable Unavailable [facility] Primary Care Provider [phone] Encounter Details Date Type Department Care Team (Late st Contact Info) Description 02/17/2024 Community Care Management [facility] [address] [place] [address] Radha Shah FNP [address] [place] [address] Social History Tobacco Use Types Packs/Day Years [...] 01/24/2025 2:00 PM EDT Clinical Support [address] [address] Kira Bansal RN 01/24/2025 2:30 PM EDT Office Visit [address] [address] Yecenia Frias FNP [address] [place] [address] documented as of this encounter Visit Diagnoses Not on filedocumented in this encounter Additional Health Concerns Assessment Noted Time PHQ-9 Depression Total Score: 6 12/28/19 24 11:17 AM EDT documented as of this encounter Care Teams Software Development Intern Relationship Specialty Start Date End Date Radha Shah FNP [address] [place] [address] PCP - General Family Medicine 04/21/23 04/25/24 Yecenia Frias FNP [address] [place] [address] PCP - General Family Medicine 04/26/24 Colby Hirsch FNP [address] [place] [address] Nurse Practitioner Family Medicine 07/13/23 Candice Ugarte Welfare Service AideBuilding Manager 12/27/23 documented as of this encounter
--- OUTSIDE RECORDS SUMMARY | 2024-12-22 14:27 | XMS_ITS | Encounter Summary ---
Author Organization [employer] Address 75 [facility] 7t [place] [address] Care Team Providers Care Ratings Analyst Name Role Phone Colby Hirsch WHEELCHAIR DRIVER Unavailable Unavailable [facility] Primary Care Provider [phone] Encounter Details Date Type Department Care Team ([facility] st Contact Info) Description 08/11/2024 Telephone [facility] [address] [place] [address] [facility] [address] [place] [address] Social History Tobacco Use Types Packs/Day Years [...] Description 01/24/2025 2:00 PM EDT Clinical Support [facility] [address] [place] [address] Kira Bansal RN 01/24/2025 2:30 PM EDT Office Visit [address] [address] Yecenia Frias FNP [address] [place] [address] documented as of this encounter Visit Diagnoses Not on filedocumented in this encounter Additional Health Concerns Assessment Noted Time PHQ-9 Depression Total Score: 7 03/07/20 24 10:13 AM EDT documented as of this encounter Care Teams Ratings Analyst Relationship Specialty Start Date End Date Yecenia Frias FNP [address] [place] [address] PCP - General Family Medicine 04/26/24 Colby Hirsch FNP Nurse Practitioner Family Medicine 07/13/23 Candice Ugarte Senior Power SchedulerRecreation Clerk 12/27/23 documented as of this encounter
--- OUTSIDE RECORDS SUMMARY | 2024-12-22 14:27 | XMS_ITS | Encounter Summary ---
Author Organization [employer] Address 75 [facility] 7t [place] [address] Care Team Providers Care Hat Conditioner Name Role Phone Radha Shah SUPERVISOR SAFETY DEPOSIT Primary Care Provider [phone] Colby Hirsch Unavailable Unavailable [facility] Primary Care Provider [phone] Reason for Visit * Reason Comments Med Refill Encounter Details Date Type Department Care Team (Late st Contact Info) Description 07/02/2023 Refill [facility] [address] [place] [address] Radha Shah FNP [address] [place] [address] Multiple joint pain Social History Tobacco Use [...] Description 01/24/2025 2:00 PM EDT Clinical Support [facility] [address] [place] [address] Kira Bansal RN 01/24/2025 2:30 PM EDT Office Visit [facility] [address] [place] [address] SheridanYecenia FNP [address] [place] [address] documented as of this encounter Visit Diagnoses Diagnosis Multiple joint pain Pain in joint, multiple sites documented in this encounter Additional Health Concerns Assessment Noted Time PHQ-9 Depression Total Score: 6 06/15/20 23 10:23 AM EDT documented as of this encounter Care Teams Hat Conditioner Relationship Specialty Start Date End Date Radha Shah FNP [address] [place] [address] PCP - General Family Medicine 04/21/23 04/25/24 Yecenia Frias FNP [address] [place] [address] PCP - General Family Medicine 04/26/24 Colby Hirsch FNP [address] [place] [address] Nurse Practitioner Family Medicine 07/13/23 Candice Ugarte NpsCommunications Writer 12/27/23 documented as of this encounter
--- OUTSIDE RECORDS SUMMARY | 2024-12-22 14:27 | XMS_ITS | Encounter Summary ---
Author Organization [employer] Address 75 [facility] 7 [place] [address] Care Team Providers Care Box Sealing Machine Feeder Name Role Phone Colby Hirsch MANAGER CORPORATE Unavailable Unavailable [facility] Primary Care Provider [phone] Reason for Visit * Reason Onset Date Comments Med Refill 09/29/2024 Encounter Details Date Type Department Care Team ([facility] st Contact Info) Description 09/29/2024 Telephone [facility] 230 [place], [place] [phone] [facility] 230 [place] [address] Med Refill Social History Tobacco Use Types [...] 50 MG tablet To be sent to: [facility] documented in this encounter Plan of Treatment Upcoming Encounters Date Type Department Care Team (Late st Contact Info) Description 01/24/2025 2:00 PM EDT Clinical Support [facility] [address] [place] [address] Kira Bansal RN 01/24/2025 2:30 PM EDT Office Visit [facility] [address] [place] [address] Yecenia Frias FNP [address] [place] [address] documented as of this encounter Visit Diagnoses Not on filedocumented in this encounter Additional Health Concerns Assessment Noted Time PHQ-9 Depression Total Score: 7 03/07/20 24 10:13 AM EDT documented as of this encounter Care Teams Box Sealing Machine Feeder Relationship Specialty Start Date End Date Yecenia Frias FNP [address] [place] [address] PCP - General Family Medicine 04/26/24 Colby Hirsch FNP Nurse Practitioner Family Medicine 07/13/23 Candice Ugarte Hearing StenographerHopper Attendant 12/27/23 documented as of this encounter
[2024-12-22 16:06] LABS: MANUAL DIFF FLAG NO
[2024-12-22 16:16] LABS: Basophils Percent Auto 0.2 % (0-2); Eosinophils Absolute Auto 0.2 X10*3/uL (0.0-0.4); Eosinophils Percent Auto 1.7 % (0-4); Hematocrit 37.6 % (37.0-47.0); Hemoglobin 12.1 g/dl (12.0-16.0); Imm Gran Abs Auto 0.02 X10*3/uL (0.00-0.03); Imm Gran Pct Auto 0.2 % (0.0-0.4); Lymphocytes Absolute Auto 2.6 X10*3/uL (1.2-4.9); Lymphocytes Percent Auto 29.1 % (20-40); Mean Corpuscular HGB Conc 32.2 g/dl (31.0-35.0); Mean Corpuscular Hemoglobin 26.8 pg (27.0-33.0); Mean Corpuscular Volume 83.2 fL (80.0-98.0); Mean Platelet Volume 10.4 fL (9.4-12.3); Monocytes Absolute Auto 0.5 X10*3/uL (0.1-1.2); Neutrophils Absolute Auto 5.6 x10*3/uL (2.0-8.3); Neutrophils Percent Auto 62.8 % (45-73); Platelet Count 265 X10*3/uL (160-400); Red Blood Count 4.52 X10*6/uL (4.20-5.50); Red Cell Distribution Width 13.6 % (11.0-16.0)
[2024-12-22 16:30] LABS: Anion Gap 14 (12-20)
[2024-12-22 16:35] LABS: Alanine Aminotransferase 13 U/L (0-31); Albumin Level 4.2 g/dL (3.5-5.0); Aspartate Amino Transferase 26 U/L (5-31); Blood Urea Nitrogen 10 mg/dL (9-16); Calcium 9.8 mg/dL (8.4-10.2); Carbon Dioxide 25 mmol/L (22-29); Chloride 107 mmol/L (96-108); Estimated Glomerular Filt Rate > 60; Glucose Random 115 mg/dL (60-115); Potassium 3.5 mmol/L (3.3-5.1); Sodium 142 mmol/L (135-145); Total Protein 7.5 g/dL (6.5-8.0)
[2024-12-22 16:49] LABS: Alkaline Phosphatase 114 U/L (39-117); Bilirubin Total 0.4 mg/dL (0.0-1.0)
[2024-12-22 16:56] LABS: Vitamin D 25-OH Total 29.6 ng/mL (>30)
== END 2024-12-22 14:09 | disposition home or self-care (01) ==
LOC: HO.HHCL 14:08
PROVIDERS: Visit Provider Nurse Practitioner
DX: M89.8X9 Other specified disorders of bone, unspecified site (principal)
CPT/HCPCS: 36415; 80053; 82306; 85025

== ENCOUNTER 2024-12-25 14:20 | Emergency (ER) | payer MEDICAID, SELFPAY ==
--- NOTE | ~2024-12-25 | XR_ITS ---
EXAMINATION: XR CHEST CLINICAL INFORMATION: chest pain COMPARISON: June 25, 2023. TECHNIQUE: Frontal view of the chest was obtained. FINDINGS: No hyperinflation. No consolidation, pleural effusion or pneumothorax. Cardiomediastinal silhouette size is normal. Multilevel thoracic and upper lumbar stenosis. Increased kyphotic deformity mid thoracic spine. Patient's large body habitus/obesity. XR/XR chest 1V IMPRESSION: No acute airspace disease. Stable chest. Electronically signed by: Leo Marroquin MD 12/25/2024 03:21 PM EDT
--- NOTE | 2024-12-25 14:23 | ECG_ITS ---
Test Reason : CHEST PAIN Blood Pressure : */* mmHG Vent. Rate : 91 BPM Atrial Rate : 91 BPM P-R Int : 152 ms QRS Dur : 76 ms QT Int : 364 ms P-R-T Axes : 35 20 29 degrees QTcB Int : 447 ms Normal sinus rhythm Normal ECG When compared with ECG of 15-May-2024 14:03, No significant change was found Referred By: Generic ED Physician Electronically Signed By: STEFFANY CLIFTON
[2024-12-25 14:46] VITALS: BP 141/85; PULSE 93; RESP 18; TEMP 36.7; O2SAT 100; BMI 35.5
--- NOTE | 2024-12-25 14:53 | ED_ITS ---
HPI - General Adult General Chief complaint: General Medical Stated complaint: high high bs chest pain dizzy Time Seen by Provider: 12/25/24 19:06 Source: patient Mode of arrival: ambulatory Limitations: no limitations History of Present Illness ED Provider: Mala Penn NP HPI narrative: Is a 44-year-old female who presents emergency department for evaluation. She states that since yesterday she has been experiencing intermittent chest pain she states that it lasts a few minutes and then self resolves this is a few times throughout the day. Is not able to identify exacerbating or alleviating factors. States that she has had similar pain in the past, not certain what has previously caused it. She attributes it to when her blood sugar levels are elevated. She states that this morning she checked her blood sugar it was 230, at which point she had her breakfast and took her metformin. Initial nursing triage states that she takes insulin which is incorrect. When she checked her blood sugar again at 11:30 she noticed it was still 230. She contacted her primary care doctor who advised her to come to emergency department for evaluation. She reports she has been compliant with her trace appetite as well as metformin although she does state that the metformin was recently decreased she is uncertain why. Initial triage also states that she is experiencing dizziness and a headache, she states that this occurred this morning resolved after eating has not had any further headache or dizziness. She denies vision changes, neck pain, neck stiffness, lightheadedness, shortness of breath, difficulty breathing, numbness or tingling of the extremities, genitourinary symptoms. Related Data Home Medications ?Medication ?Instructions ?Recorded ?Confirmed albuterol sulfate 90 mcg/actuation 2 puff inhalation Q4-6H PRN 10/01/20 12/05/24 aerosol inhaler Shortness Of Breath albuterol sulfate 2.5 mg/3 mL 2.5 mg inhalation TID PRN wheezing 04/15/21 12/05/24 (0.083 %) solution for nebulization buspirone 10 mg tablet 10 mg PO TID 04/15/21 12/05/24 docusate sodium 100 mg capsule 100 mg PO BID PRN Constipation 04/15/21 12/05/24 magnesium oxide 400 mg (241.3 mg 200 mg PO DAILY 04/15/21 12/05/24 magnesium) tablet pantoprazole 40 mg tablet,delayed 40 mg PO DAILY 04/15/21 12/05/24 release sennosides 8.6 mg tablet (Senna 17.2 mg PO DAILY PRN constipation 04/15/21 12/05/24 Laxative) terconazole 0.4 % vaginal cream 1 appful vaginal BEDTIME 04/15/21 12/05/24 vitamin A 3,000 mcg (10,000 unit) 1 cap PO DAILY 04/15/21 12/05/24 capsule escitalopram oxalate 20 mg tablet 20 mg PO DAILY 12/16/21 12/05/24 sumatriptan succinate 50 mg tablet 50 mg PO ONCE migraine 01/07/22 12/05/24 clonazepam 0.5 mg tablet 0.5 mg PO DAILY PRN anxiety 02/03/22 12/05/24 naproxen 500 mg tablet 375 mg PO BID PRN pain 03/14/24 12/05/24 Previous Rx's ?Medication ?Instructions ?Recorded ketorolac 10 mg tablet 10 mg PO Q8H PRN pain #10 tabs 02/23/21 tramadol 50 mg tablet 50 mg PO Q8H PRN pain (scale score 04/15/21 1-3) #14 tabs lisinopril 5 mg tablet 5 mg PO DAILY #30 tabs 02/18/22 cholecalciferol (vitamin D3) 50 50 mcg PO DAILY 30 days #30 caps 03/10/22 mcg (2,000 unit) capsule ibuprofen 600 mg tablet 600 mg PO Q6H PRN pain #30 tabs 07/13/22 metoprolol tartrate 25 mg tablet 12.5 mg (1/2 x 25 mg) PO BID #30 06/25/23 tabs acetaminophen 325 mg capsule 650 mg (2 x 325 mg) PO Q6H PRN 07/20/23 (Tylenol) pain #30 caps tamsulosin 0.4 mg capsule (Flomax) 0.4 mg PO BEDTIME #14 caps 11/22/23 pen needle, diabetic 32 gauge x #100 ea 11/23/2308/26 (Novofine 32) tamsulosin 0.4 mg capsule 0.4 mg PO BEDTIME 14 days #14 caps 03/08/24 pyridoxine (vitamin B6) 100 mg 100 mg PO DAILY 90 days #90 tabs 03/12/24 tablet lancets 33 gauge (TRUEplus Lancets) 1 gauge miscellaneous QID for 04/12/24 diabetes mellitus 30 days #100 ea tirzepatide 5 mg/0.5 mL 5 mg (0.5 mL) subcut QWEEK #2 mL 06/07/24 subcutaneous pen injector (Vasiliy) atorvastatin 40 mg tablet 40 mg PO DAILY #90 tabs 07/31/24 metformin 500 mg tablet,extended 500 mg PO DAILY #90 tabs 07/31/24 release 24 hr blood sugar diagnostic (FreeStyle #100 ea 08/09/24 Lite Strips) blood-glucose meter (FreeStyle #1 ea 08/09/24 Lite Meter kit) lancets 28 gauge (FreeStyle #100 ea 08/09/24 Lancets) Allergies Allergy/AdvReac Type Severity Reaction Status Date / Time pineapple Allergy Severe tongue Verified 12/25/24 14:50 swelling diphenhydramine Allergy Intermediate HALLUCINATI Verified 12/25/24 14:50 [From BENADRYL] ONS morphine [MORPHINE] Allergy Intermediate DIAPHORESIS; Verified 12/25/24 14:50 TACHYCARDIA, palpitations, sweating, tingling of hands and face quetiapine [From SEROQUEL] Allergy Intermediate PALPITATION Verified 12/25/24 14:50 S seafood Allergy Intermediate redness/itc Verified 12/25/24 14:50 akhil tomato Allergy Intermediate Blister Verified 12/25/24 14:50 trazodone [TRAZODONE] Allergy Intermediate GI Upset, Verified 12/25/24 14:50 HEART RACING, palpitations prednisone [PREDNISONE] AdvReac Intermediate HEART RACES Verified 12/25/24 14:50 Review of Systems 2 Review of Systems: Yes all other systems are reviewed and are negative [facility] Past Medical History Attestation statement: The following information was validated with the patient. Source: old records reviewed Medical History Bilateral kidney stones T2DM (type 2 diabetes mellitus) Pain of left middle finger Left hand pain Left wrist pain Numbness and tingling in left hand De Quervain's tenosynovitis, left Skin lesion of breast Rotator cuff strain Right flank pain Abnormal stress ECG with treadmill Chest discomfort Hypertrophic scar of upper arm Shoulder pain Epidermal inclusion cyst Right kidney stone Nephrolithiasis Right shoulder strain Transaminitis GERD (gastroesophageal reflux disease) Anxiety Migraines Fatty liver Elevated cholesterol Asthma Vitamin D deficiency HLD (hyperlipidemia) HTN (hypertension) Diabetes mellitus Surgical History Skin lesion Sebaceous cyst of breast Flank pain Scar contracture History of surgical removal of skin lesion (08/27/22) H/O lithotripsy History of local excision of skin lesion History of hysterectomy (~2011) Family History Family History Father Heart disease Mother No problems noted. Social History Social History Are you a primary long term care social worker to a significant other at home: No Do you presently have visiting nurse or other home services: No Alcohol intake: never Patient Tobacco Use Status: Never used Tobacco Second Hand Smoke Exposure: No Advance Directives: No Advance Directives Information Provided: No Do you have a plan to hurt others: No Plan Physical Exam ED Vital Signs: Vital Signs - 24 hr 12/25/24 14:46 12/25/24 19:49 12/25/24 19:49 Temperature 98.1 F Pulse Rate 93 87 83 Respiratory Rate 18 Blood Pressure 141/85 H 131/78 129/79 Pulse Oximetry 100 Oxygen Delivery Method Room Air 12/25/24 19:50 12/25/24 21:34 12/25/24 21:35 Temperature 98.2 F 98.2 F Pulse Rate 85 86 86 Respiratory Rate 18 18 Blood Pressure 133/79 132/86 132/86 Pulse Oximetry 97 97 Oxygen Delivery Method Room Air Room Air BMI result Body Mass Index 35.5 Appearance: Alert.?Oriented to person, place and time. No acute distress.?Normal affect. Eyes: Pupils equal, round and reactive to light.? ENT: Pharynx normal.?? Neck: Normal inspection.? Neck supple.?? CVS: Heart sounds normal. Normal heart rate and rhythm.? Pulses normal.?? Respiratory: No respiratory distress.? Lung sounds clear to auscultation bilaterally?? Abdomen: Soft and non-tender. Normoactive bowel sounds. No pulsatile mass.?? Skin: Skin warm and dry.? Normal skin color.? Extremities: No lower extremity edema.? No calf ttp? Neuro: Moves all extremities spontaneously. Sensation intact bilaterally. CN II- XII intact. No focal neuro deficits. Ambulates with normal steady gait. Course Course Course Narrative: RME: 44-year-old female presents to ED for chest pain with elevated glucose. Patient denies any slurred speech, facial droop or paralysis of extremities. NIH score is 0. Nerves EKG POC ordered Medical Decision Making Medical Decision Making MDM Narrative: Patient is a 44-year-old female with past medical history of type 2 diabetes, nephrolithiasis, GERD, migraine, anxiety, hypercholesterolemia, asthma, hypertension who presents emergency department for evaluation concern for elevated blood glucose levels at home as well as intermittent chest pain since yesterday as per HPI. At the time my evaluation she is overall well-appearing, nontoxic, afebrile. She is without tachycardia tachypnea or hypoxia. She is speaking clear full sentences, lung sounds clear to the apices bilaterally. On evaluation of workup obtained prior to my assumption of care CBC is without leukocytosis anemia or thrombocytopenia. No electrolyte derangement. No PEPE. Random glucose of 112. LFTs. High sensitive troponin is below detectable limits an EKG reveals a normal sinus rhythms with ventricular rate of 91, QTC 447, no ST-elevation or acute ischemic changes, given some symptoms yesterday, do not suspect this is secondary to ACS with negative EKG and troponin today. BNP is normal not consistent with CHF and clinically she is without signs of volume. Chest x-ray does not show any consolidation infiltrate to be concerning for pneumonia. At this time ago that she is stable for discharge home and outpatient follow-up with her primary care doctor with strict return precautions. All questions answered. Differential Diagnosis Differential Diagnoses: The differential diagnosis associated with the presentation includes (See narrative above) Admission/Observation Consideration of admission/observation: Escalation of care including admission/observation considered Lab Data MDM Lab Attestation statement: I reviewed the patient's lab results. (See narrative above) 12/25/24 15:00 12/25/24 15:00 Labs: Lab Results 12/25/24 12/25/24 12/25/24 Range/Units 14:56 15:00 19:51 WBC 7.6 (4.8-10.8) X10*3/uL RBC 4.59 (4.20-5.50) X10*6/uL Hgb 12.4 (12.0-16.0) g/dl Hct 37.9 (37.0-47.0) % MCV 82.6 (80.0-98.0) fL MCH 27.0 (27.0-33.0) pg MCHC 32.7 (31.0-35.0) g/dl RDW 13.6 (11.0-16.0) % Plt Count 261 (160-400) X10*3/uL MPV 10.0 (9.4-12.3) fL Immature Gran % (Auto) 0.3 (0.0-0.4) % Neut % (Auto) 58.9 (45-73) % Lymph % (Auto) 32.0 (20-40) % [place] % (Auto) 6.3 (2-11) % Eos % (Auto) 2.1 (0-4) % Baso % (Auto) 0.4 (0-2) % Lymph # (Auto) 2.4 (1.2-4.9) X10*3/uL [place] # (Auto) 0.5 (0.1-1.2) X10*3/uL Eos # (Auto) 0.2 (0.0-0.4) X10*3/uL Baso # (Auto) 0.0 (0.0-0.2) X10*3/uL Abs Immat Gran (auto) 0.02 (0.00-0.03) X10*3/uL Absolute Neuts (auto) 4.5 (2.0-8.3) x10*3/uL Absolute Nucleated RBC 0.000 (0.0-0.012) X10*3/uL Nucleated RBC % (auto) 0.0 (0.0-0.2) /100WBC PT 10.6 L (10.9-12.4) SEC INR 0.9 (0.9-1.1) APTT 36.6 (26.0-36.8) SEC Sodium 143 (135-145) mmol/L Potassium 3.6 (3.3-5.1) mmol/L Chloride 108 (96-108) mmol/L Carbon Dioxide 28 (22-29) mmol/L Anion Gap 11 L (12-20) BUN 7 L (9-16) mg/dL Creatinine 0.69 (0.5-1.4) mg/dL Estim Creat Clear Calc 97.9 Estimated GFR > 60 POC Glucose 107 (60-115) mg/dL Random Glucose 112 (60-115) mg/dL Calcium 9.3 (8.4-10.2) mg/dL Total Bilirubin 0.3 (0.0-1.0) mg/dL AST 21 (5-31) U/L ALT 15 (0-31) U/L Alkaline Phosphatase 115 (39-117) U/L Troponin I High Sens < 2.7 (<3.5-17.0) ng/L B-Natriuretic Peptide < 10 (<100) pg/mL Total Protein 7.7 (6.5-8.0) g/dL Albumin 4.3 (3.5-5.0) g/dL Influenza Type A (PCR) NEGATIVE (Negative) Influenza Type B (PCR) NEGATIVE (Negative) RSV RNA Qual (PCR) NEGATIVE (Negative) SARS-CoV-2 RNA (RT-PCR) NEGATIVE (Negative) Independent Interpretation I performed an independent interpretation of an: EKG (See narrative of the) and Plain X-Ray (See narrative above) Radiology Impression Discussion of test interpretation with radiology: I have reviewed the radiologist's reading. Radiologist Impression: Frontal view of the chest was obtained. FINDINGS: No hyperinflation. No consolidation, pleural effusion or pneumothorax. Cardiomediastinal silhouette size is normal. Multilevel thoracic and upper lumbar stenosis. Increased kyphotic deformity mid thoracic spine. Patient's large body habitus/obesity. XR/XR chest 1V IMPRESSION: No acute airspace disease. Stable chest. External Record Review External record reviewed: Outpatient record Chronic Conditions Patient?s care impacted by: Other (See narrative above) Discharge Plan Discharge Clinical Impression: Chest pain Patient Disposition: Home, Self-Care Instructions: Chest Pain (ED) Additional Instructions: As discussed, workup today was very reassuring. Please follow-up with your primary care doctor. Return with any new or worsening symptoms or concerns. If you find that you are continuing to have elevated blood sugar readings you should discuss this with your primary care doctor, they may need to consider adjustment to your current diabetes medication regimen. Prescriptions: No Action cholecalciferol (vitamin D3) 50 mcg (2,000 unit) capsule 50 mcg PO DAILY 30 Days Qty: 30 11RF (DME) pen needle, diabetic [Novofine 32] 32 gauge x 1/4 needle See Rx Instructions .ROUTE .COMPLEX Qty: 100 5RF Dose Instruction: USE ONCE DAILY DIRECTED Rx Instructions: USE ONCE DAILY DIRECTED pyridoxine (vitamin B6) 100 mg tablet 100 mg PO DAILY 90 Days Qty: 90 3RF lancets [TRUEplus Lancets] 33 gauge misc 1 gauge miscellaneous QID 30 Days Qty: 100 11RF Mounjaro 5 mg/0.5 mL pen injector 5 mg subcut QWEEK Qty: 2 3RF metformin 500 mg tablet extended release 24 hr 500 mg PO DAILY Qty: 90 3RF atorvastatin 40 mg tablet 40 mg PO DAILY Qty: 90 1RF (DME) blood-glucose meter [FreeStyle Lite Meter] Kit See Rx Instructions .ROUTE .MEDSUPPLY Qty: 1 0RF Rx Instructions: As directed (DME) FreeStyle Lite Strips Strip See Rx Instructions .ROUTE .MEDSUPPLY Qty: 100 11RF Rx Instructions: As directed Test blood glucose 3x daily. (DME) lancets [FreeStyle Lancets] 28 gauge misc See Rx Instructions .ROUTE .MEDSUPPLY Qty: 100 3RF Rx Instructions: use daily as directed to check blood glucose albuterol sulfate 90 mcg/actuation Hfa Aerosol Inhaler 2 puff INHALATION Q4-6H PRN (Reason: Shortness Of Breath) ketorolac 10 mg tablet 10 mg PO Q8H PRN (Reason: pain) Qty: 10 0RF ibuprofen 600 mg tablet 600 mg PO Q6H PRN (Reason: pain) Qty: 30 0RF metoprolol tartrate 25 mg tablet 12.5 mg PO BID Qty: 30 0RF tamsulosin 0.4 mg capsule 0.4 mg PO BEDTIME 14 Days Qty: 14 0RF acetaminophen [Tylenol] 325 mg capsule 650 mg PO Q6H PRN (Reason: pain) Qty: 30 0RF terconazole 0.4 % cream 1 appful vaginal BEDTIME pantoprazole 40 mg tablet,delayed release (DR/EC) 40 mg PO DAILY albuterol sulfate 2.5 mg /3 mL (0.083 %) solution for nebulization 2.5 mg inhalation TID PRN (Reason: wheezing) sennosides [Senna Laxative] 8.6 mg tablet 17.2 mg PO DAILY PRN (Reason: constipation) docusate sodium 100 mg capsule 100 mg PO BID PRN (Reason: Constipation) buspirone 10 mg tablet 10 mg PO TID vitamin A 10,000 unit capsule 1 cap PO DAILY magnesium oxide 400 mg (241.3 mg magnesium) tablet 200 mg PO DAILY tramadol 50 mg tablet 50 mg PO Q8H PRN (Reason: pain (scale score 1-3)) Qty: 14 0RF lisinopril 5 mg tablet 5 mg PO DAILY Qty: 30 5RF escitalopram oxalate 20 mg tablet 20 mg PO DAILY sumatriptan succinate 50 mg tablet 50 mg PO ONCE clonazepam 0.5 mg tablet 0.5 mg PO DAILY PRN (Reason: anxiety) naproxen 500 mg tablet 375 mg PO BID PRN (Reason: pain) tamsulosin [Flomax] 0.4 mg capsule 0.4 mg PO BEDTIME Qty: 14 0RF Referrals: [facility] [Primary Care Provider] - Interventions: ED Discharge Assessment Last Done: 12/25/24 21:35 Discharge Date/Time: 12/25/24 21:35 Print Language: Swedish
[2024-12-25 15:18] LABS: Glucose, Whole Blood 107 mg/dL (60-115)
[2024-12-25 15:20] LABS: MANUAL DIFF FLAG NO
[2024-12-25 15:23] LABS: Basophils Percent Auto 0.4 % (0-2); Eosinophils Absolute Auto 0.2 X10*3/uL (0.0-0.4); Eosinophils Percent Auto 2.1 % (0-4); Hematocrit 37.9 % (37.0-47.0); Hemoglobin 12.4 g/dl (12.0-16.0); Imm Gran Abs Auto 0.02 X10*3/uL (0.00-0.03); Imm Gran Pct Auto 0.3 % (0.0-0.4); Lymphocytes Absolute Auto 2.4 X10*3/uL (1.2-4.9); Mean Corpuscular HGB Conc 32.7 g/dl (31.0-35.0); Mean Corpuscular Volume 82.6 fL (80.0-98.0); Monocytes Absolute Auto 0.5 X10*3/uL (0.1-1.2); Monocytes Percent Auto 6.3 % (2-11); Neutrophils Absolute Auto 4.5 x10*3/uL (2.0-8.3); Neutrophils Percent Auto 58.9 % (45-73); Platelet Count 261 X10*3/uL (160-400); Red Blood Count 4.59 X10*6/uL (4.20-5.50); Red Cell Distribution Width 13.6 % (11.0-16.0); White Blood Count 7.6 X10*3/uL (4.8-10.8)
[2024-12-25 15:29] LABS: INTERNATIONAL NORM RATIO 0.9 (0.9-1.1); Prothrombin Time 10.6 SEC (10.9-12.4)
[2024-12-25 15:32] LABS: Partial Thromboplastin Time 36.6 SEC (26.0-36.8)
[2024-12-25 15:46] LABS: Alanine Aminotransferase 15 U/L (0-31); Albumin Level 4.3 g/dL (3.5-5.0); Anion Gap 11 (12-20); Aspartate Amino Transferase 21 U/L (5-31); Bilirubin Total 0.3 mg/dL (0.0-1.0); Blood Urea Nitrogen 7 mg/dL (9-16); Calcium 9.3 mg/dL (8.4-10.2); Carbon Dioxide 28 mmol/L (22-29); Chloride 108 mmol/L (96-108); Creatinine Clr Calc Pharmacy 97.9; Estimated Glomerular Filt Rate > 60; Glucose Random 112 mg/dL (60-115); Potassium 3.6 mmol/L (3.3-5.1); Sodium 143 mmol/L (135-145); Total Protein 7.7 g/dL (6.5-8.0)
[2024-12-25 15:50] LABS: Troponin-I High Sensitivity < 2.7 ng/L (<3.5-17.0)
[2024-12-25 16:01] LABS: B Type Natriuretic Peptide < 10 pg/mL (<100)
[2024-12-25 16:14] LABS: Alkaline Phosphatase 115 U/L (39-117)
--- OUTSIDE RECORDS SUMMARY | 2024-12-25 19:16 | XMS_ITS | Encounter Summary ---
Author Organization [employer] Address [address] [place] [address] Care Team Providers Care Bundler Seasonal Greenery Name Role Phone Ruth Hoffmann ASSISTANT LOAN PROCESSOR Primary Care Provider Marc Nava Primary Care Provider Unavail able Radha Shah ASSISTANT LOAN PROCESSOR Primary Care Provider [phone] Colby HirschP Unavailable Unavailable [facility] ASSISTANT LOAN PROCESSOR Primary Care Provider [phone] Reason for Visit * Reason Onset Date Comments Appointment Request 10/01/2022 Encounter Details Date Type Department Care Team (Late st Contact Info) Description 10/01/2022 Telephone [facility] [address] [place] [address] Ruth Hoffmann FNP Appointment Request Social History [...] Description 01/24/2025 2:00 PM EDT Clinical Support [address] [address] Kira Bansal RN 01/24/2025 2:30 PM EDT Office Visit [address] [address] Yecenia Frias FNP [address] [place] [phone] documented as of this encounter Visit Diagnoses Not on filedocumented in this encounter Care Teams Bundler Seasonal Greenery Relationship Specialty Start Date End Date Ruth Hoffmann FNP PCP - General Family Medicine 07/21/22 10/21/22 Marc Nicolas AGNP PCP - General Family Medicine 10/22/22 04/20/23 Radha Shah FNP [address] [place] [id number] PCP - General Family Medicine 04/21/23 04/25/24 Yecenia Frias FNP [address] [place] [phone] PCP - General Family Medicine 04/26/24 Colby Hirsch FNP [address] [place] [address] Nurse Practitioner Family Medicine 07/13/23 Candice Ugarte Plate SetterBag Filler 12/27/23 documented as of this encounter
--- OUTSIDE RECORDS SUMMARY | 2024-12-25 19:17 | XMS_ITS ---
Author Organization [facility] Address [address] [place] [address] Care Team Providers Care [employer] Ax Consultant Name Role Phone Radha Rodriguez Primary Care Provider Jaylan Clancy Unavailable [phone] REASON FOR VISIT Patient presents today for FATTY LIVER Encounters Encounter Location Date Provider Diagnosis [facility] [address] [place] [phone] 06/20/2024 Jaylan Neal Plan Of Treatment No Information Progress Notes * MADHU JAZLYNHAYLEESDOB: 0 (44 yo F)Acc No.[id number]:06/20/2024 Progress Notes Patient:?HARMAN LEUNG Provider:?Jaylan Neal MD :1980???Age:43 Y???Sex:Female D ate:06/20/2024 Address:[address] [place], [place] [id number] Pcp:JACINTO Ramos Subjective: * Chief Complaints: * [...] MD Date:? 024 Generated for Ashlee perez/Lisa/eTransmitting on:?12/25/2024 07:17 PM EDT
--- OUTSIDE RECORDS SUMMARY | 2024-12-25 19:17 | XMS_ITS | Encounter Summary ---
Author Organization [employer] Address [address] [facility] [address] [place] [address] Care Team Providers Care Transportation Aide Name Role Phone Marc Nicolas Primary Care Provider Unavail able Radha Shah LEGAL AID Primary Care Provider [phone] Colby Hirsch Unavailable Unavailable [facility] LEGAL AID Primary Care Provider [phone] Reason for Visit * Reason Comments Med Refill Encounter Details Date Type Department Care Team (Late Contact Info) Description 04/08/2023 Refill [facility] [address] [place] [phone] Marc Nicolas AGNP Mixed anxiety and depressive [...] 2:00 PM EDT Clinical Support [facility] [address] [place] [phone] Kira Bansal RN 01/24/2025 2:30 PM EDT Office Visit [facility] [address] [place] [phone] [facility] [address] [place] [address] documented as of this encounter Visit Diagnoses Diagnosis Mixed anxiety and depressive disorder Dysthymic disorder documented in this encounter Additional Health Concerns Assessment Noted Time PHQ-9 Depression Total Score: 0 04/02/20 2:10 PM EDT documented as of this encounter Care Teams Transportation Aide Relationship Specialty Start Date End Date Marc Nicolas AGNP PCP - General Family Medicine 10/22/22 04/20/23 Radha Shah FNP [address] [place] [address] PCP - General Family Medicine 04/21/23 04/25/24 [facility] [place] [place] [address] PCP - General Family Medicine 04/26/24 [place] [address] Nurse Practitioner Family Medicine 07/13/23 Candice Ugarte Sack LifterScreen Print Operator 12/27/23 documented as of this encounter
--- OUTSIDE RECORDS SUMMARY | 2024-12-25 19:17 | XMS_ITS | Encounter Summary ---
Author Organization [employer] Address [address] [facility] [address] [place] [address] Care Team Providers Care Sales Order Administrator Name Role Phone Marc Nicolas Primary Care Provider Unavail able Radha Shah Primary Care Provider [phone] Colby Hirsch Unavailable Unavailable [facility] DIRECTOR SOFTWARE DEVELOPMENT Primary Care Provider [phone] Reason for Visit * Reason Onset Date Comments Med Refill 04/09/2023 Encounter Details Date Type Department Care Team (Late st Contact Info) Description 04/09/2023 Refill [facility] [address] [place] [address] Marc Nicolas AGNP Mixed anxiety and depressive [...] listed in EHR, no record. Spoke with [facility] pharmacy, she is listed as Romaine [...] (KlonoPIN) 0.5 MG tablet Please sent to [facility] [place], [place] - [address] [place] [address] documented in this encounter Plan of Treatment Upcoming Encounters Date Type Department Care Team (Late st Contact Info) Description 01/24/2025 2:00 PM EDT Clinical Support [facility] [address] [place] [phone] Kira Bansal RN 01/24/2025 2:30 PM EDT Office Visit [facility] [address] [place] [phone] Yecenia Frias FNP [address] [place] [address] documented as of this encounter Visit Diagnoses Diagnosis Mixed anxiety and depressive disorder Dysthymic disorder documented in this encounter Additional Health Concerns Assessment Noted Time PHQ-9 Depression Total Score: 0 04/02/20 2:10 PM EDT documented as of this encounter Care Teams Sales Order Administrator Relationship Specialty Start Date End Date Marc Nicolas AGNP PCP - General Family Medicine 10/22/22 04/20/23 Radha Shah FNP [address] [place] [phone] PCP - General Family Medicine 04/21/23 04/25/24 Yecenia Frias FNP [address] [place] [phone] PCP - General Family Medicine 04/26/24 Colby Hirsch FNP [address] [place] [phone] Nurse Practitioner Family Medicine 07/13/23 Candice Ugarte Freight BrakemanBeef Lugger 12/27/23 documented as of this encounter
--- OUTSIDE RECORDS SUMMARY | 2024-12-25 19:17 | XMS_ITS | Encounter Summary ---
Author Organization [employer] Address [address] [facility] [address] [place] [address] Care Team Providers Care Landscaping And Groundskeeping Laborer Name Role Phone Marc Nicolas Primary Care Provider Unavail able Radha Shah COOK CAMP Primary Care Provider [phone] Colby Hircsh Unavailable Unavailable [facility] COOK CAMP Primary Care Provider [phone] Reason for Visit * Reason Onset Date Comments Referral 01/26/2023 Encounter Details Date Type Department Care Team (Late st Contact Info) Description 01/26/2023 Telephone [facility] [address] [place] [address] Marc Nicolas AGNP Referral Social History Tobacco [...] Description 01/24/2025 2:00 PM EDT Clinical Support [address] [address] Kira Bansal RN 01/24/2025 2:30 PM EDT Office Visit [facility] [address] [place] [address] DilleYecenia FNP [address] [place] [phone] documented as of this encounter Visit Diagnoses Not on filedocumented in this encounter Additional Health Concerns Assessment Noted Time PHQ-9 Depression Total Score: 19 023 3:57 PM EDT documented as of this encounter Care Teams Landscaping And Groundskeeping Laborer Relationship Specialty Start Date End Date Marc Nicolas AGNP PCP - General Family Medicine 10/22/22 04/20/23 Radha Shah FNP [address] [place] [phone] PCP - General Family Medicine 04/21/23 04/25/24 DilleYecenia FNP [address] [place] [address] PCP - General Family Medicine 04/26/24 Colby Hirsch FNP [address] [place] [phone] Nurse Practitioner Family Medicine 07/13/23 Candice Ugarte Site ControllerCore Inspector 12/27/23 documented as of this encounter
--- OUTSIDE RECORDS SUMMARY | 2024-12-25 19:17 | XMS_ITS | Encounter Summary ---
Author Organization [employer] Address [address] [facility] [address] [place] [address] Care Team Providers Care Buyer Internship Name Role Phone Radha Shah CLINIC DIRECTOR Primary Care Provider [phone] Colby Hirsch Unavailable Unavailable [facility] Primary Care Provider [phone] Reason for Visit * Reason Comments Med Refill Encounter Details Date Type Department Care Team ([facility] st Contact Info) Description 07/02/2023 Refill [facility] [address] [place] [address] Radha Shah FNP [address] [place] [address] Multiple joint pain Social History Tobacco Use [...] enough money to get more: Often true 10/ Transportation Answer Date Recorded In the past [...] PM EDT Clinical Support [facility] [address] [place] [address] Kira Bansal RN 01/24/2025 2:30 PM EDT Office Visit [facility] [address] [place] [address] [place] [address] [address] documented as of this encounter Visit Diagnoses Diagnosis Multiple joint pain Pain in joint, multiple sites documented in this encounter Additional Health Concerns Assessment Noted Time PHQ-9 Depression Total Score: 6 06/15/20 23 10:23 AM EDT documented as of this encounter Care Teams Buyer Internship Relationship Specialty Start Date End Date Radha Shah FNP [address] [place] [address] PCP - General Family Medicine 04/21/23 04/25/24 AltagraciaYecenia whipple FNP [address] [place] [phone] PCP - General Family Medicine 04/26/24 Colby Hirsch FNP [address] [place] [address] Nurse Practitioner Family Medicine 07/13/23 Candice Ugarte Mba InternshipBreakdown Man 12/27/23 documented as of this encounter
--- OUTSIDE RECORDS SUMMARY | 2024-12-25 19:17 | XMS_ITS | Encounter Summary ---
Author Organization [employer] Address [address] [facility] [address] [place] [address] Care Team Providers Care Supervisor Metal Furniture Assembly Name Role Phone Colby Hirsch LINE PREP COOK Unavailable Unavailable [facility] LINE PREP COOK Primary Care Provider [phone] Encounter Details Date Type Department Care Team (Late st Contact Info) Description 12/25/2024 Telephone [facility] [address] [place], [place] [phone] Eloisa Aragon NP [address] [place] [address] Social History Tobacco Use Types Packs/Day Years [...] encounter Miscellaneous Notes * Telephone Encounter - Meg Frausto RN - 12/25/2024 3:39 PM EDT T/C to pt via [employer] #[id number]. Advised of message from LINE PREP COOK re: lab results and rx sent to pharmacy. Pt Reports agreement with plan. * Telephone Encounter - Meg Frausto RN - 12/25/2024 3:33 PM EDT ----- Message from Eloisa Aragon sent at 12/25/2024 12:23 PM EDT ----- Please call and inform patient of normal labs that do not explain her symptoms of bone pain. Informof slightly low vitamin D level for which replacement will be sent to the pharmacy. If she is stilltaking atorvastatin, please ask her to hold it until follow-up with PCP to assess for any change inher symptoms. documented in this encounter Plan of Treatment Upcoming Encounters Date Type Department Care Team (Late st Contact Info) Description 01/24/2025 2:00 PM EDT Clinical Support [facility] [address] [place] [phone] Kira Bansal RN 01/24/2025 2:30 PM EDT Office Visit [facility] [address] [place] [address] Yecenia Frias FNP [address] [place] [address] documented as of this encounter Visit Diagnoses Not on filedocumented in this encounter Additional Health Concerns Assessment Noted Time PHQ-9 Depression Total Score: 0 10/24/19 25 1:15 PM EST documented as of this encounter Care Teams Supervisor Metal Furniture Assembly Relationship Specialty Start Date End Date Yecenia Frias FNP [address] [place] [address] PCP - General Family Medicine 04/26/24 Colby Hirsch FNP Nurse Practitioner Family Medicine 07/13/23 Candice Ugarte Tool And Die InspectorJob Press Feeder 12/27/23 documented as of this encounter
--- OUTSIDE RECORDS SUMMARY | 2024-12-25 19:17 | XMS_ITS | Clinical Summary ---
Author Organization [employer] Address [address] [facility] [address] [place] [address] Care Team Providers Care Sterilizer Machine Operator Name Role Phone Colby Hirsch CIGAR WRAPPER TENDER AUTOMATIC Unavailable Unavailable [facility] CIGAR WRAPPER TENDER AUTOMATIC Primary Care Provider [phone] Allergies Active Allergy Reactions Criticality Noted Date [...] 1 023 Active Diclofenac Sodium 1 % gelIndications:Pa in of left thumb Apply once a day on the affected hand 100 g 1 024 Active docusate sodium (Colace) 100 MG capsuleIndication s:Constipation, unspecified constipation type TAKE 1 CAPSULE BY MOUTH TWICE DAILY 180 capsule 1 024 Active Bisacodyl EC 5 MG EC tablet TAKE 1 TABLET BY MOUTH EVERY DAY NEEDED FOR CONSTIPATION. DO NOT BREAK, CRUSH, DISSOLVE OR CHEW. 30 tablet Active insulin pen needle (DiannatiGuard SafePack Pen Needle) 29G x 12.7mm misc Use as instructed 100 each 12 024 2024 Active metFORMIN XR (Glucophage-XR) 500 MG 24 hr tabletIndications :Type 2 diabetes mellitus without complication, with long-term current use of insulin (CMS/HCC) TAKE 1 TABLET BY MOUTH EVERY DAY WITH DINNER 90 tablet 1 Active Blood Pressure kit 1 kit 2 [...] :Major depression with psychotic features ([facility]) Take 1 tablet (7.5 mg) by mouth at bedtime. 30 tablet 1 024 Active risperiDONE (RisperDAL) 2 MG tabletIndications :Major Depressive Disorder Take 1 tablet (2 mg) by mouth at bedtime. 30 tablet 1 024 Active Blood Glucose Monitoring Suppl (DiversionStyle Lite) w/Device kitIndications:Ty pe 2 diabetes mellitus without complication, with long-term current use of insulin ([facility]) 1 Device 2 times daily. 1 kit 024 Active famotidine (Pepcid) 20 MG tabletIndications :Gastroesophageal reflux disease with esophagitis without hemorrhage Take 1 tablet (20 mg) by mouth 2 times daily. 60 tablet 11 025 2025 Active Alcohol Swabs (Alcohol Prep) 70 % pads USE 1 FOUR TIMES DAILY DIRECTED 200 each 025 Active omeprazole (PriLOSEC) [address] capsule TAKE 1 CAPSULE BY MOUTH EVERY MORNING BEFORE BREAKFAST. DO NOT BREAK, CRUSH, DISSOLVE OR CHEW. 90 capsule 3 025 Active oxymetazoline (Afrin Nasal Daisy) 0.05 % nasal sprayIndications: Viral upper respiratory illness Administer 2 sprays into each nostril every 12 (twelve) hours if needed for congestion for up to 2 days. Do not use for more than 3 days. 30 mL 025 Active Dulaglutide (Trulicity) 0.75 MG/0.5ML solution auto-injectorIndi cations:Type 2 diabetes mellitus without complication, with long-term current use of insulin ([facility]) Inject 0.75 mg under the skin 1 [...] EVERY 6 HOURS NEEDED 60 tablet 1 Active ibuprofen 600 MG tabletIndications :Viral upper respiratory illness TAKE 1 TABLET BY MOUTH EVERY 6 HOURS NEEDED FOR MILD PAIN 30 tablet 1 Active traMADol (Ultram) 50 MG tabletIndications :Multiple joint pain Take 1 tablet (50 mg) by mouth every 12 (twelve) hours if needed for severe pain for up to 28 days. 56 tablet 025 2024 Active beta carotene (vitamin A) 3 MG (58547 UT) capsule TAKE 1 CAPSULE BY MOUTH EVERY MORNING 90 capsule 1 Active baclofen (Lioresal) 10 MG tablet Take one tablet TID PRN 30 tablet Active cholecalciferol (Vitamin D-3) 20 MCG (800 UNIT) tablet Take 1 tablet (20 mcg) by mouth Once per day. 30 tablet 1 025 2024 Active D3 Super Strength 50 MCG (2000 UT) capsule TAKE 1 CAPSULE BY MOUTH DAILY IN THE MORNING 90 capsule 3 024 2024 Discontinued beta carotene (vitamin A) 3 MG (33234 UT) capsule TAKE 1 CAPSULE BY MOUTH [...] -given brace. -recommended follow-up with PCP PRN. Juliodum 12/07/24 2:50 PM XR/XR wrist LT min [...] mechanism to manage sxs, provided her with [facility] Crisis number for after hrs support. [...] skills discussed in session. She will contact [facility] crisis number as needed. Patient with [...] in person with a female clinician in [place]. At this time Sacha Rodriguez meets criteria [...] >60 CM >60 CM Comment: NOTE: ??For -Peruvian individuals, multiply the result ? by 1.210.Chronic Kidney Disease: ??Estimated GFR < 60 mL/min/1.05r5Cpgiki Kidney Disease: ??Estimated GFR < 15 mL/min/1.73m2 [...] >60 CM >60 CM Comment: NOTE: ??For -Peruvian individuals, multiply the result ? by 210.Chronic Kidney Disease: ??Estimated GFR < 60 mL/min/1.68o4Onlgyr Kidney Disease: ??Estimated GFR < 15 mL/min/1.73m2 [...] is now referred to new [facility] psychiatric provider. Pt is aware that appts will be via televisit and that provider will not be an [facility] employee. She gives permission to share [...] night at bedtime (not prn). Based on ALLIGATOR TRAPPER notes, she appears to be taking Clonazepam [...] organization. Date Type Department Care Team Description 12/25/2024 Telephone [facility] MEDICINE [address] [place] [address] [phone] Eloisa Aragon NP 12/22/2024 1:20 PM EDT Office Visit [facility] [address] [place] [address] [phone] Bone pain (Primary Dx) 12/07/2024 11:20 AM EDT Office Visit [facility] [address] [place] [address] [phone] Quin Victoria MD Left wrist pain (Primary Dx); Injury of left wrist, initial encounter 12/07/2024 Travel 2024 Telephone [facility] [address] [facility] [place] [address] Yecenia Frias FNP Med Refill 2024 Refill [facility] [address] [facility] [place] [address] Yecenia Frias FNP 12/04/2024 Refill [facility] [address] [place] [address] Yecenia Frias FNP Viral upper respiratory illness; Multiple joint pain 11/28/2024 Refill [facility] [address] [facility] [place] [address] Yecenia Frias FNP Arthralgia, unspecified joint 11/27/2024 Telephone [facility] [address] [place] [address] Yecenia Frias FNP Nurse Triage 11/14/2024 Patient Outreach [facility] [address] [place] [address] Yecenia Frias FNP Care Coordination ([facility] Kelly Obrien telephone call outreach) 11/14/2024 Patient Outreach [facility] [address] [facility] [place] [address] Yecenia Frias FNP Care Coordination 11/06/2024 Refill [facility] [address] [place] [address] Yecenia Frias FNP Multiple joint pain 11/03/2024 Population Health Risk [facility] Department [address] [place] [address] [phone] Provider, Population Health Generic 10/31/2024 Patient Outreach [facility] [address] [facility] [place] [address] Yecenia Frias FNP Care Coordination ([facility] Kelly Obrien telephone call outreach) 10/31/2024 Refill [facility] [address] [facility] [place] [address] Yecenia Frias FNP Type 2 diabetes mellitus without complication, with long-term current use of insulin ([facility]) 10/27/2024 Telephone [facility] [address] [place] [phone] [facility] Results 10/27/2024 Orders Only [facility] [address] [place] [address] [facility] Other polyneuropathy (Primary Dx) 10/24/2024 1:00 PM EST Clinical Support [address] [address] Kira Bansal RN Chronic midline back pain, unspecified back location (Primary Dx) 10/24/[address] [address] Kira Bansal RN Chronic midline back pain, unspecified back location (Primary Dx) 10/24/2024 Travel 10/23/2024 1:00 PM EST Office Visit [address] [address] [facility] Type 2 diabetes mellitus without complication, with long-term current use of insulin ([facility]) (Primary Dx); Other polyneuropathy; Dietary counseling; Exercise counseling; Encounter for immunization 10/23/2024 Travel 10/23/2024 Outside Procedure [facility] OPTOMETRY [address] [place] [phone] Parveen Elizabethn, OD Presbyopia of both eyes (Primary Dx) 10/20/2024 9:45 AM EST Office Visit [facility] OPTOMETRY [address] [place] [phone] Akila Elizabeth, OD Regular astigmatism of both eyes (Primary Dx) 10/20/2024 Travel 10/13/2024 Patient Outreach [address] [address] [facility] Care Coordination ([facility]3 -W Kelly Obrien telephone call outreach ) 10/12/2024 2:00 PM EST Office Visit [facility] ADULT DENTAL [address] [place] [address] [phone] Phillip Borrego, MYA 10/12/2024 Telephone [facility] MEDICINE [address] [place] [phone] Bethany Bond MD Results 10/12/2024 Orders Only [facility] [address] [place] [phone] Bethany Bond MD Urinary tract infection symptoms (Primary Dx) 10/11/2024 Patient Outreach [facility] [address] [place] [phone] Yecenia Frias FNP Pre-visit Planning ((Unable to reach for PVP screening, LVM)) 10/11/2024 Refill [facility] [address] [place] [phone] Yecenia Frias FNP Arthralgia, unspecified joint 10/10/2024 2:00 PM EST Office Visit [facility] [address] [place] [phone] Bethany Bond MD Urinary tract infection symptoms (Primary Dx); Diarrhea, unspecified type 10/02/2024 2:00 PM EST Office Visit [facility] MEDICINE [address] [place] [phone] Yecenia Frias FNP Viral upper respiratory illness (Primary Dx) 10/02/[address] [address] Yecenia Frias FNP Multiple joint pain 10/02/2024 Travel 10/02/[address] [address] Yecenia Frias FNP Nurse Triage 10/01/[address] [phone] Radha Shah FNP 09/29/[address] [address] Yecenia Frias FNP Med Refill from Last 3 Months Immunizations Name Administration [...] 2:00 PM EDT Clinical Support [facility] [address] [place] [phone] Kira Bansal RN 01/24/2025 2:30 PM EDT Office Visit [facility] MED[facility]INE [address] [place] [phone] [address] Health Maintenance Due Date Last Done Comments [...] Procedure Name Priority Date/Time Associated Diagnosis Comments COMPREHENSIVE METABOLIC PANEL Routine 12/22/2024 2:10 PM EDT Bone pain VITAMIN D,25-OH,TOTAL,IA Routine 12/22/2024 2:10 PM EDT Bone pain CBC WITH AUTO DIFFERENTIAL Routine 12/22/2024 2:10 PM EDT Bone pain XR WRIST 3+ VIEWS LEFT Routine 12/07/2024 [...] long-term current use of insulin ([facility]) POCT GLYCATED HEMOGLOBIN, TOTAL Routine 10/23/2024 1:15 PM EST Type 2 diabetes mellitus without complication, with long-term current use of insulin (CMS/[facility]) DENTURE ADJUSTMENT Routine 10/12/2024 2: 00 PM [...] PANEL, STANDARD Routine 09/25/2024 1:22 PM EST ALBUMIN, RANDOM URINE W/CREATININE Routine 02/07/2024 2:09 PM EDT Type 2 diabetes mellitus without complication, with long-term current use of insulin (CMS/[facility]) BI MAMMOGRAM SCREENING TOMOSYNTHESIS BILATERAL Routine 11/16/2023 1:25 PM EDT HEPATITIS PANEL, GENERAL Routine 02/22/2023 1:46 PM EDT Nonalcoholic steatohepatitis PERIODIC ORAL EVALUATION - ESTABLISHED PATIENT Routine 05/24/2020 12:00 AM EDT PANORAMIC RADIOGRAPHIC IMAGE Routine 03/29/2015 12:00 AM EDT PROPHYLAXIS - ADULT Routine 06/06/2008 1 2:00 AM EDT from Last 3 Months or Most Recently Relevant to Health Maintenance Results * (ABNORMAL) Vitamin D, 25-Hydroxy, Total, Immunoassay (12/22/2024 2:10 PM EDT) Pathologist [facility] Vitamin D 25-OH Total 29.6(L) >30 ng/mL [facility] Comment: Health Based Reference Values*< 20 ??ng/mL ??Xehiuwoue65-79 ng/mL ??Insufficient> 30 ??ng/mL ??Sufficient*Hector GALE. N Engl J Med. 2007;357:266-280There is no well-established upper level of normal vitamin Dlevels. Some laboratories use 50 ng/mL as an upper limit ofnormal. However, toxicity is patient-dependent and may occurat any level. Careful correlation with the patient'spresentation is necessary and, if there is concern forvitamin D toxicity, treatment should be consideredirrespective of the serum level.Care must be taken in interpreting Vitamin D results fromdifferent laboratories and methodologies. ??Published datademonstrated that results from patients undergoinghemodialysis may show a negative bias when tested withvarious automated 25-OH vitamin D assays when compared toLC- MS/MS.When testing samples from patients whose predominant form ofVitamin D is Vitamin D2, such as patients receiving VitaminD2 supplementation, results that are subtherapeutic shouldbe confirmed with another method such as LC-MS/MS. Blood Venous blood specimen / Unknown 12/22/2024 2:10 PM EDT 12/22/2024 4:04 PM EDT us Eloisa Aragon NP LAB BLOOD ORDERABLES Final Resu lt [facility] [address] [place] [phone] * (ABNORMAL) CBC auto differential (12/22/2024 2:10 PM EDT) White Blood Count 9.0 4.8 - 10.8 X10*3/uL [facility] Red Blood Count 4.52 4.20 - 5.50 X10*6/uL [facility] Hemoglobin 12.1 12.0 - 16.0 g/dl [facility] Hematocrit 37.6 37.0 - 47.0 % [facility] Mean Corpuscular Volume 83.2 80.0 - 98.0 fL [facility] Mean Corpuscular Hemoglobin 26.8(L) 27.0 - 33.0 pg [facility] Mean Corpuscular HGB Conc 32.2 31.0 - 35.0 g/dl [facility] Red Cell Distribution Width 13.6 11.0 - 16.0 % [facility] Platelet Count 265 160 - 400 X10*3/uL [facility] Mean Platelet Volume 10.4 9.4 - 12.3 fL [facility] Neutrophils Percent Auto 62.8 45 - 73 % [facility] Imm Gran Pct Auto 0.2 0.0 - 0.4 % [facility] Lymphocytes Percent Auto 29.1 20 - 40 % [facility] Monocytes Percent Auto 6.0 2 - 11 % [facility] Eosinophils Percent Auto 1.7 0 - 4 % [facility] Basophils Percent Auto 0.2 0 - 2 % [facility] NRBC Pct Auto 0.0 0.0 - 0.2 /100WBC [facility] Neutrophils Absolute Auto 5.6 2.0 - 8.3 x10*3/uL [facility] Imm Gran Abs Auto 0.02 0.00 - 0.03 X10*3/uL [facility] Lymphocytes Absolute Auto 2.6 1.2 - 4.9 X10*3/uL [facility] Monocytes Absolute Auto 0.5 0.1 - 1.2 X10*3/uL [facility] Eosinophils Absolute Auto 0.2 0.0 - 0.4 X10*3/uL [facility] Basophils Absolute Auto 0.0 0.0 - 0.2 X10*3/uL [facility] NRBC Abs Auto 0.000 0.0 - 0.012 X10*3/uL [facility] Blood Venous blood specimen / Unknown 12/22/2024 2:10 PM EDT 12/22/2024 4:04 PM EDT us Eloisa Aragon NP LAB BLOOD ORDERABLES Final Resu lt [facility] [address] [place] [address] [phone] * Comprehensive Metabolic Panel (12/22/2024 2:10 PM EDT) Sodium 142 135 - 145 mmol/L [facility] Potassium 3.5 3.3 - 5.1 mmol/L [facility] Chloride 107 96 - 108 mmol/L [facility] Carbon Dioxide 25 22 - 29 mmol/L [facility] Anion Gap 14 12 - 20 [facility] Urea Nitrogen (BUN) 10 9 - 16 mg/dL [facility] Creatinine, Serum 0.63 0.5 - 1.4 mg/dL [facility] Estimated Glomerular Filt Rate >60 [facility] Comment:Chronic Kidney Disea se: Estimated GFR < 60 mL/min/1.62e3Nzkokf Kidney Disease: Estimated GFR < 15 mL/min/1.73m2 Glucose 115 60 - 115 mg/dL [facility] Calcium 9.8 8.4 - 10.2 mg/dL [facility] Bilirubin, Total 0.4 0.0 - 1.0 mg/dL [facility] Aspartate Amino Transferase 26 5 - 31 U/L [facility] Alanine Aminotransferase 13 0 - 31 U/L [facility] Total Protein 7.5 6.5 - 8.0 g/dL [facility] Albumin Level 4.2 3.5 - 5.0 g/dL [facility] Alkaline Phosphatase 114 39 - 117 U/L [facility] Blood Venous blood specimen / Unknown 12/22/2024 2:10 PM EDT 12/22/2024 4:04 PM EDT us Eloisa Aragon AVIATION OPERATIONS SPECIALIST LAB BLOOD ORDERABLES Final Resu lt [facility] [address] [place] [phone] * XR Wrist 3+ Views Left (12/07/2024 11:57 AM EDT) Anatomical Region Laterality Modality Upper Extremities, Wrist Left Radiogr aphic Imaging 12/07/2024 11:5 7 AM EDT Narrative 12/07/2024 2:08 PM EDT ?[facility] ?[address] ?[place] [address] ?XRay Report ? Signed ? Patient: Roach Rodriguez,Yamarys ?MR#: [id number] ?? [id number] ? : 1980 ?Acct:[id number] ? Age/Sex: 44 / F ?ADM Date: 12/07/24 ? Loc: HO.HHCX ? Attending Dr: Quin Victoria MD ? Ordering Physician: Quin Victoria MD ?? Date of Service: 12/07/24 ?? Procedure(s): XR wrist LT min 3V ?? Accession Number(s): [id number] ? cc: Quin Victoria MD ? EXAMINATION: [...] signed by Ricky Rincon MD in OV> ?12/07/24 1405 ? DD/ 1157 ? TD/TT: 12/07/24 1200 ? Recruitment Manager: ? Procedure Note Sima, Image - 12/07/2024 [facility] [address] [place] [address] XRay Report Signed Patient: Unique ContrerasLeoR#: [id number] : 1980Acct:[id number] Age/Sex: 44 / FADM Date: 12/07/24 Loc: HO.HHCX Attending Dr: Quin Victoria MD Ordering Physician: Quin Victoria MD Date of Service: 12/07/24 Procedure(s): XR wrist LT min 3V Accession Number(s): [id number] cc: Quin Victoria MD EXAMINATION: XR WRIST, [...] Ricky Rincon MD 12/07/2024 02:05 PM EDT Workstation: [id number] Dictated By: Ricky Rincon MD Signed By: <Electronically signed by Ricky Rincon MD in OV> 12/07/24 1405 DD/ 1157 TD/TT: 12/07/24 1200 Recruitment Manager: Quin Victoria MD IMG XR PROCEDURES Final Re sult * POCT CASSI-14 Urine Drug Screen (10/24/2024 1:02 PM EST) Urine Urine specimen obtained by clean catch procedure / Unknown 10/24/2024 1:02 PM EST Kira Alford RN - 10/24/2024 1:02 PM EST UTOX cup Lot#[id number] Exp. 04/11/26 Internal Pass Control UTOX Negative for all substances. Cheryl Galan DO POINT OF CARE TEST ENTER/SANCHO T ORDERABLES Final Result * Vitamin B12/Folate, Serum Panel (10/23/2024 2:05 PM EST) Vitamin B12 273 200 - 900 pg/mL [facility] Comment:NORMAL 200-900 PG/ML INDETERMINATE 160-199 PG/ML DEFICIENT < 160 PG/ML Folate 11.9 > or = 4.0 ng/mL [facility] Comment:Reference Values:> o r = 4.0 ng/mL< 4.0 ng/mL suggests folate deficiency Methotrexate, aminopterin and folinic acid(leucovorin) are chemotherapeutic agents whose molecularstructures are similar to folate; therefore, the Architectfolate assay cannot be used for patients using these drugs. Blood Venous blood specimen / Unknown 10/23/2024 2:05 PM EST 10/23/2024 4:20 PM EST [facility] LAB BLOOD ORDERABLES Final Re sult Performing Organization Address [facility]/ZIP Co de Phone Number [facility] [address] [place] [phone] * TSH W/Reflex to FT4 (10/23/2024 2:05 PM EST) TSH reflex Free T4 1.74 0.32 - 4.0 uIU/mL [facility] Blood Venous blood specimen / Unknown 10/23/2024 2:05 PM EST 10/23/2024 4:20 PM EST [facility] LAB BLOOD ORDERABLES Final Re sult Performing Organization Address [facility] Co de Phone Number [facility] [address] [place] [phone] * HIV-1/2 Antigen and Antibodies, Fourth Generation, with Reflexes (10/23/2024 2:05 PM EST) HIV AB/AG Nonreactive Nonreactive [facility] Comment:HIV-1 p24 Ag and/or HIV-1/HIV-2 Ab not detected.A test result that is nonreactive does not exclude thepossibility of exposure to or infection with HIV-1 and/orHIV-2. Nonreactive results in this assay for individualswith prior exposure to HIV-1 and/or HIV-2 may be due toantigen and antibody levels that are below the limit ofdetection of this assay.The [employer] HIV Ag/Ab Combo assay result andsupplemental assay results should be interpreted inconjunction with the patient's clinical presentation,history and other laboratory results. If the results areinconsistent with clinical evidence, additional testing issuggested to confirm the result. Blood Venous blood specimen / Unknown 10/23/2024 2:05 PM EST 10/23/2024 4:[address] [facility] LAB BLOOD ORDERABLES Final Re sult Performing Organization Address [facility] Co de Phone Number [facility] [address] [place] [phone] * Ferritin (10/23/2024 2:05 PM EST) Ferritin 126 10 - 250 ng/mL [facility] Blood Venous blood specimen / Unknown 10/23/2024 2:05 PM EST 10/23/2024 4:[address] [facility] LAB BLOOD ORDERABLES Final Re sult Performing Organization Address [facility] de Phone Number [facility] [address] [place] [phone] * POCT Glucose (10/23/2024 1:17 PM EST) Glucose Blood, POC 101 60 - 200 mg/dL Blood Capillary blood specimen / Unknown 10/23/2024 1:[address] [facility] POINT OF CARE TEST ENTER/EDIT ORDERABLES Final Result * POCT HGB A1C (10/23/2024 1:15 PM EST) Hemoglobin A1C 5.7 4.0 - 6.0 % Blood 10/23/2024 1:[address] [facility] POINT OF CARE TEST ENTER/EDIT ORDERABLES Final Result * Culture, Urine, Routine (10/10/2024 2:35 PM EST) Urine Urine specimen obtained by clean catch procedure / Unknown 10/10/2024 2:35 PM EST 10/10/2024 4:14 PM EST Comment:UACC Narrative [facility] - 10/12/2024 7:44 AM EST Escherichia coli Quant > 100,000 cfu/mL Escherichia coli: Ampicillin >=32(R) Escherichia coli: Cefazolin (Urine) 8(S) Escherichia coli: Cefepime <=0.12(S) Escherichia coli: Ceftriaxone <=0.25(S) Escherichia coli: Ciprofloxacin <=0.06(S) Escherichia coli: Gentamicin >=16(R) Escherichia coli: Nitrofurantoin <=16(S) Escherichia coli: Trimethoprim/Sulfamethoxazole >=320(R) Specimen Source: Urine clean catch Result [facility] Bethany Ritchie MD LAB MICROBIOLOGY - NERAL ORDERABLES Final Result [facility] [address] [place] [phone] * (ABNORMAL) POCT Urinalysis (10/10/2024 2:18 [...] Detected Urine 10/10/2024 2:18 PM EST Result [facility] Bethany Ritchie MD POINT OF CARE TEST EN TER/EDIT ORDERABLES Final Result * POCT Rapid Covid-19 BinaxNOW (10/02/2024 2:44 PM EST) Rapid COVID Ag Negative Swab 10/02/2024 2:44 PM EST us Yecenia [place] CIGAR WRAPPER TENDER AUTOMATIC POINT OF CARE TEST ENTER/EDIT ORDERABLES Final Result * POCT Rapid Influenza B OSOM (10/02/2024 2:44 PM EST) Pathologist [facility] Rapid Influenza B Ag Negative Negative, Indeterminate Swab 10/02/2024 2:44 PM EST [facility] POINT OF CARE TEST ENTER/EDIT ORDERABLES Final Result * POCT Rapid Influenza A OSOM (10/02/2024 2:44 PM EST) [facility] Rapid Influenza A Ag Negative Negative, Indeterminate Swab Nasopharyngeal structure / Unknown 10/02/2024 2:44 PM EST [facility] POINT OF CARE TEST ENTER/EDIT ORDERABLES Final Result * (ABNORMAL) Lipid Panel, Standard (09/25/2024 1:22 PM EST) [facility] Triglycerides 109 <150 mg/dL [facility] Comment:Desirable Triglyceri de: less than 150 mg/dLBorderline High Triglyceride 150-199 mg/dLHigh Triglyceride: 200-499 mg/dLVery High Triglyceride: greater than or equal to 5OO mg/dL Cholesterol 128 <200 mg/dL [facility] Comment:Desirable Cholestero l: less than 200 mg/dLBorderline High Cholesterol: 200-239 mg/dLHigh Cholesterol: greater than 239 mg/dL LDL Cholesterol Calculated 71 <100 mg/dL [facility] Comment:Desirable LDL: less than 100 mg/dLNear Optimal/Above Optimal LDL: 110- 129 mg/dLBorderline High LDL: 130-159 mg/dLHigh LDL: 160-189 mg/dLVery High LDL: greater than or equal to 190 mg/dL HDL Cholesterol 36(L) >40 mg/dL [facility] Comment:Desirable HDL: great er than 40 mg/dL Note: This HDL assay may give artificially low results in patients with liver disease. 09/25/2024 1:22 PM EST 09/25/2024 4:00 PM EST Generic External Data Provider LAB BLOOD ORDERAB LES Final Result Performing Organization Address [facility] de Phone Number [facility] [address] [place] [address] [phone] * Albumin, Random Urine W/Creatinine (02/07/2024 2:09 PM EDT) Creatinine, Urine 164.92 mg/dL [facility] Microalbumin Urine 16.0 mg/L [facility] Microalbum Creatinine Ratio Ur 9.7 <30 ug/mg cr [facility] Comment:Albumin/Creatinine R atio Reference Ranges: Normal: < 30 ug/mg creatinine Microalbuminuria: 30 - 300 ug/mg creatinineClinical Albuminuria: > 300 ug/mg creatinine Urine (Urine, Random) 02/07/2024 2:09 PM EDT 02/07/2024 3:55 PM EDT Radha Shah CIGAR WRAPPER TENDER AUTOMATIC LAB URINE ORDERABLES Final Resu lt Performing Organization Address [facility] Co de Phone Number [facility] [address] [place] [phone] * BI Mammogram Screening Tomosynthesis Bilateral (11/16/2023 1:25 PM EDT) Anatomical Region Laterality Modality Breast Bilateral Mammography 11/16/2023 1:25 PM EDT Narrative 12/02/2023 6:15 AM EDT ? [facility] [place] ? [address] ?[place] [address] ? Mammography Report ? Signed ? Patient: Sacha Contreras ?MR#: [id number] ? : 1980 ?Acct:[id number] ? Age/Sex: 42 / F ?ADM Date: 03/26/24 ? Loc: HO.MAMMO ? Attending Dr: Radha Shah AVIATION OPERATIONS SPECIALIST ? Ordering Physician: Radha Shah AVIATION OPERATIONS SPECIALIST ?Results: 1Negativ ?? e ? Date of Service: 11/16/23 ?Follow Up: 1 Year From Orig ?? inal Mammogram ? Procedure(s): MM tomosynthesis screening BI ?? Accession Number(s): [id number] ? cc: Radha Shah AVIATION OPERATIONS SPECIALIST ? EXAMINATION: ?? MM SCREENING DIGITAL BREAST [...] ? 12/02/23610 ? DD/ ? TD/TT: ? Recruitment Manager: ? Procedure Note Donotnoelinterpreter, Image - 12/02/2023 Ciaran [facility]'s [address] [place] [address] Mammography Report Signed Patient: Xavier ContrerasR#: [id number] : 1980Acct:[id number] Age/Sex: 42 / FADM Date: 11/16/23 Loc: HO.MAMMO Attending Dr: Radha Shah AVIATION OPERATIONS SPECIALIST Ordering Physician: Radha Shah NPResults: 1Negativ e Date of Service: 11/16/23Follow Up: 1 Year From Orig inal Mammogram Procedure(s): MM tomosynthesis screening BI Accession Number(s): [id number] cc: Radha Shah AVIATION OPERATIONS SPECIALIST EXAMINATION: MM SCREENING DIGITAL BREAST TOMOSYNTHESIS, BILATERAL [...] in OV> 12/02/23 0611 DD/ 1325 TD/TT: Recruitment Manager: us Radha Shah CIGAR WRAPPER TENDER AUTOMATIC IMG BI PROCEDURES Final Result * (ABNORMAL) Hepatitis Panel, General (02/22/2023 1:46 PM EDT) Hepatitis A Antibody Total REACTIVE( A) NON-REACT TAWNYA [employer] [facility] Comment: For additional information, please refer to http://Caro Nut/faq/MRS499 (This link is being provided for informational/ educational purposes only.) Hepatitis B Surface Antibody QL REACTIVE( A) NON-REACT TAWNYA [employer] [facility] Hepatitis B Surface Ag NON-REACT TAWNYA NON-REACT TAWNYA [employer] [facility] Comment: For additional information, please refer to http://Car[employer] Nut/faq/HVK362 (This link is being provided for informational/ educational purposes only.) Hepatitis B Core Antibody Total NON-REACT TAWNYA NON-REACT TAWNYA [employer] [facility] Comment: For additional information, please refer to http://Caro Nut/faq/OCO659 (This link is being provided for informational/ educational purposes only.) Hepatitis C Antibody NON-REACT TAWNYA NON-REACT TAWNYA [employer] [facility] Comment: HCV antibody was non-reactive. There is no laboratory evidence of HCV infection. In most cases, no further action is required. However, if recent HCV exposure is suspected, a test for HCV RNA (test code 20436) is suggested. For additional information please refer to http://Caro Nut/faq/UNZ70s5 (This link is being provided for informational/ educational purposes only.) 02/22/2023 1:46 PM EDT 02/22/2023 1:46 PM EDT Narrative [facility] - 02/26/2023 7:51 PM EDT FASTING:NO FASTING: NO us Marc GEIGER LAB BLOOD ORDERABLES Final Res ult [facility] [address], [place] [address] [employer] [facility] [address] [place] [address] from Last 3 Months or Most Recently Relevant to Health Maintenance Insurance [place] [facility] MEDICAID STAND ADULT Care Teams Sterilizer Machine Operator Relationship Specialty Start Date End Date [facility] JACINTO Keene [address] [place] [address] FELICITY [place] [address] PCP - General Family Medicine 04/26/24 Colby Hirsch FNP Nurse Practitioner Family Medicine 07/13/23 Candice Ugarte Air Deodorizer ServicerElectric Switch Repairer 12/27/23
--- OUTSIDE RECORDS SUMMARY | 2024-12-25 19:17 | XMS_ITS | Encounter Summary ---
Author Organization [employer] Address [address] [place] [address] Care Team Providers Care Dehydrogenation Supervisor Name Role Phone Radha Shah STATIC BALANCER Primary Care Provider [phone] Colby Hirsch Unavailable Unavailable [facility] Primary Care Provider [phone] Reason for Visit * Reason Comments Med Refill Encounter Details Date Type Department Care Team (Late st Contact Info) Description 11/24/2023 Refill [facility] [address] [place] [address] Radha Shah FNP [address] [place] [address] Multiple joint pain Social History Tobacco Use [...] Description 01/24/2025 2:00 PM EDT Clinical Support [facility] [address] [place] [address] Kira Bansal RN 01/24/2025 2:30 PM EDT Office Visit [facility] [address] [place] [address] RichgroveYecenia FNP [address] [place] [address] documented as of this encounter Visit Diagnoses Diagnosis Multiple joint pain Pain in joint, multiple sites documented in this encounter Additional Health Concerns Assessment Noted Time PHQ-9 Depression Total Score: 8 09/02/19 24 11:12 AM EST documented as of this encounter Care Teams Dehydrogenation Supervisor Relationship Specialty Start Date End Date Radha Shah FNP [address] [place] [address] PCP - General Family Medicine 04/21/23 04/25/24 AltagraciaYecenia whipple FNP [address] [place] [address] PCP - General Family Medicine 04/26/24 Colby Hirsch FNP [address] [place] [address] Nurse Practitioner Family Medicine 07/13/23 Candice Ugarte Clinical Cytogeneticist ScientistFaculty Criminal Justice 12/27/23 documented as of this encounter
--- OUTSIDE RECORDS SUMMARY | 2024-12-25 19:17 | XMS_ITS | Encounter Summary ---
Author Organization [employer] Address [address] [facility] 7t [place] [address] Care Team Providers Care Dress Fitter Name Role Phone Colby Hirsch IMAGE ARCHIVIST Unavailable Unavailable [facility] IMAGE ARCHIVIST Primary Care Provider [phone] Reason for Visit * Reason Comments bone pain Encounter Details Date Type Department Care Team (Late st Contact Info) Description 12/22/2024 1:20 PM EDT Office Visit [facility] [address] [place] [address] Bone pain (Primary Dx) Social History Tobacco [...] PM EDT Clinical Support [facility] [address] [place] [address] Kira Bansal RN 01/24/2025 2:30 PM EDT Office Visit [facility] [address] [place] [address] Yecenia Frias FNP [address] [place] [address] documented as of this encounter Procedures Procedure Name Priority Date/Time Associated Diagnosis Comments VITAMIN D,25-OH,TOTAL,IA Routine 12/22/2024 2:10 PM EDT Bone pain CBC WITH AUTO DIFFERENTIAL Routine 12/22/2024 2:10 PM EDT Bone pain COMPREHENSIVE METABOLIC PANEL Routine 12/22/2024 2:10 PM EDT Bone pain documented in this encounter Results * Comprehensive Metabolic Panel (12/22/2024 2:10 PM EDT) Sodium 142 135 - 145 mmol/L [facility] Potassium 3.5 3.3 - 5.1 mmol/L [facility] Chloride 107 96 - 108 mmol/L [facility] Carbon Dioxide 25 22 - 29 mmol/L [facility] Anion Gap 14 12 - 20 [facility] Urea Nitrogen (BUN) 10 9 - 16 mg/dL [facility] Creatinine, Serum 0.63 0.5 - 1.4 mg/dL [facility] Estimated Glomerular Filt Rate >60 [facility] Comment:Chronic Kidney Disea se: Estimated GFR < 60 mL/min/1.05m1Plfrxm Kidney Disease: Estimated GFR < 15 mL/min/1.73m2 Glucose 115 60 - 115 mg/dL [facility] Calcium 9.8 8.4 - 10.2 mg/dL [facility] Bilirubin, Total 0.4 0.0 - 1.0 mg/dL [facility] Aspartate Amino Transferase 26 5 - 31 U/L [facility] Alanine Aminotransferase 13 0 - 31 U/L [facility] Total Protein 7.5 6.5 - 8.0 g/dL [facility] Albumin Level 4.2 3.5 - 5.0 g/dL [facility] Alkaline Phosphatase 114 39 - 117 U/L [facility] Blood Venous blood specimen / Unknown 12/22/2024 2:10 PM EDT 12/22/2024 4:04 PM EDT Eloisa Aragon GEOPHYSICAL MANAGER LAB BLOOD ORDERABLES Final Resu lt [facility] [address] [place] [address] [phone] * (ABNORMAL) Vitamin D, 25-Hydroxy, Total, Immunoassay (12/22/2024 2:10 PM EDT) Vitamin D 25-OH Total 29.6(L) >30 ng/mL [facility] Comment: Health Based Reference Values*< 20 ??ng/mL ??Teesqnqfj40-62 ng/mL ??Insufficient> 30 ??ng/mL ??Sufficient*Hector GALE. N [...] 2:10 PM EDT 12/22/2024 4:04 PM EDT [facility] BLOOD ORDERABLES Final Resu lt Performing Organization Address City/[facility]/ZIP Co de Phone Number [facility] [address] [place] [address] [phone] * (ABNORMAL) CBC auto differential (12/22/2024 2:10 PM EDT) White Blood Count 9.0 4.8 - 10.8 X10*3/uL [facility] Red Blood Count 4.52 4.20 - 5.50 X10*6/uL [facility] Hemoglobin 12.1 12.0 - 16.0 g/dl [facility] Hematocrit 37.6 37.0 - 47.0 % [facility] Mean Corpuscular Volume 83.2 80.0 - 98.0 fL [facility] Mean Corpuscular Hemoglobin 26.8(L) 27.0 - 33.0 pg [facility] Mean Corpuscular HGB Conc 32.2 31.0 - 35.0 g/dl [facility] Red Cell Distribution Width 13.6 11.0 - 16.0 % [facility] Platelet Count 265 160 - 400 X10*3/uL [facility] Mean Platelet Volume 10.4 9.4 - 12.3 fL [facility] Neutrophils Percent Auto 62.8 45 - 73 % [facility] Imm Gran Pct Auto 0.2 0.0 - 0.4 % [facility] Lymphocytes Percent Auto 29.1 20 - 40 % [facility] Monocytes Percent Auto 6.0 2 - 11 % [facility] Eosinophils Percent Auto 1.7 0 - 4 % [facility] Basophils Percent Auto 0.2 0 - 2 % [facility] NRBC Pct Auto 0.0 0.0 - 0.2 /100WBC [facility] Neutrophils Absolute Auto 5.6 2.0 - 8.3 x10*3/uL [facility] Imm Gran Abs Auto 0.02 0.00 - 0.03 X10*3/uL [facility] Lymphocytes Absolute Auto 2.6 1.2 - 4.9 X10*3/uL [facility] Monocytes Absolute Auto 0.5 0.1 - 1.2 X10*3/uL [facility] Eosinophils Absolute Auto 0.2 0.0 - 0.4 X10*3/uL [facility] Basophils Absolute Auto 0.0 0.0 - 0.2 X10*3/uL [facility] NRBC Abs Auto 0.000 0.0 - 0.012 X10*3/uL [facility] Blood Venous blood specimen / Unknown 12/22/2024 2:10 PM EDT 12/22/2024 4:04 PM EDT us Eloisa Aragon GEOPHYSICAL MANAGER LAB BLOOD ORDERABLES Final Resu lt [facility] [address] [place] [address] [phone] documented in this encounter Visit Diagnoses Diagnosis Bone pain- Primary Disorder of bone and cartilage, unspecified documented in this encounter Additional Health Concerns Assessment Noted Time PHQ-9 Depression Total Score: 0 10/24/19 25 1:15 PM EST documented as of this encounter Care Teams Dress Fitter Relationship Specialty Start Date End Date Yecenia Frias FNP [address] [place] [address] PCP - General Family Medicine 04/26/24 Colby Hirsch FNP Nurse Practitioner Family Medicine 07/13/23 Candice Ugarte Spa AttendantMedical Receptionist Assistant 12/27/23 documented as of this encounter
--- OUTSIDE RECORDS SUMMARY | 2024-12-25 19:17 | XMS_ITS | Encounter Summary ---
Author Organization [employer] Address [address] [address] 7t [place] [address] Care Team Providers Care Warehouse Trainer Name Role Phone Radha Shah PLATING MACHINE OPERATOR Primary Care Provider [phone] Colby Hirsch PLATING MACHINE OPERATOR Unavailable Unavailable [facility] Primary Care Provider [phone] Reason for Visit * Reason Comments Med Refill Encounter Details Date Type Department Care Team (Late st Contact Info) Description 06/28/[address] [facility] [address] [place] [address] Radha Shah FNP [address] [place] [address] Schizoaffective disorder, depressive type (CMS/HCC) Social History [...] PM EDT Clinical Support [facility] [address] [place] [address] Kira Bansal RN 01/24/2025 2:30 PM EDT Office Visit [address] [address] Yecenia Frias [address] [address] documented as of this encounter Visit Diagnoses Diagnosis Schizoaffective disorder, depressive type ([facility]) Schizoaffective disorder, unspecified condition documented in this encounter Additional Health Concerns Assessment Noted Time PHQ-9 Depression Total Score: 6 06/15/20 23 10:23 AM EDT documented as of this encounter Care Teams Warehouse Trainer Relationship Specialty Start Date End Date Radha Shah FNP [address] [place] [address] PCP - General Family Medicine 04/21/23 04/25/24 Yecenia Frias FNP [address] [place] [address] PCP - General Family Medicine 04/26/24 Colby Hirsch FNP [address] [place] [address] Nurse Practitioner Family Medicine 07/13/23 Candice Ugarte Car HostlerBridge Toll Collector 12/27/23 documented as of this encounter
--- OUTSIDE RECORDS SUMMARY | 2024-12-25 19:17 | XMS_ITS | Encounter Summary ---
Author Organization [employer] Address [address] [facility] 7t [place] [address] Care Team Providers Care Bag Bundler Name Role Phone Radha Shah [facility] Primary Care Provider [phone] Colby Hirsch POLYGRAPH OPERATOR Unavailable Unavailable [facility] Primary Care Provider [phone] Reason for Visit * Reason Comments Med Refill Encounter Details Date Type Department Care Team (Late st Contact Info) Description 06/04/2023 Refill [facility] [address] [place] [address] Marilee Buckner FNP [address] [place] [address] Dept [place] [address] Multiple joint pain; Mixed anxiety and depressive [...] 2:00 PM EDT Clinical Support [facility] [address] [place] [address] Kira Bansal RN 01/24/2025 2:30 PM EDT Office Visit [facility] [address] [place] [address] [place] [address] [address] documented as of this encounter Visit Diagnoses Diagnosis Multiple joint pain Pain in joint, multiple sites Mixed anxiety and depressive disorder Dysthymic disorder documented in this encounter Additional Health Concerns Assessment Noted Time PHQ-9 Depression Total Score: 0 04/02/20 23 2:10 PM EDT documented as of this encounter Care Teams Bag Bundler Relationship Specialty Start Date End Date Radha Shah FNP [address] [place] [address] PCP - General Family Medicine 04/21/23 04/25/24 [place] Rapids[place]ec[place] whipple FNP [address] [place] [address] PCP - General Family Medicine 04/26/24 Colby Hirsch FNP [address] [place] [address] Nurse Practitioner Family Medicine 07/13/23 Candice Ugarte Wire WorkerClinical Research Tech 12/27/23 documented as of this encounter
--- OUTSIDE RECORDS SUMMARY | 2024-12-25 19:17 | XMS_ITS | Encounter Summary ---
Author Organization [employer] Address [address] [facility] [address] 7t [place] [address] Care Team Providers Care Director Of Labor And Delivery Name Role Phone Radha Shah LITHOGRAPHIC CAMERA OPERATOR Primary Care Provider [phone] Colby Hirsch Unavailable Unavailable [facility] Primary Care Provider [phone] Reason for Visit * Reason Comments Med Refill Encounter Details Date Type Department Care Team (Late st Contact Info) Description 06/30/2023 Refill [facility] MED[facility] [address] [place] [address] Radha Shah FNP [address] [place] [address] Multiple joint pain Social History Tobacco Use [...] 01/24/2025 2:00 PM EDT Clinical Support [facility] [address] [place] [address] Kira Bansal RN 01/24/2025 2:30 PM EDT Office Visit [facility] [address] [place] [address] [address] [address] documented as of this encounter Visit Diagnoses Diagnosis Multiple joint pain Pain in joint, multiple sites documented in this encounter Additional Health Concerns Assessment Noted Time PHQ-9 Depression Total Score: 6 06/15/20 23 10:23 AM EDT documented as of this encounter Care Teams Director Of Labor And Delivery Relationship Specialty Start Date End Date Radha Shah FNP [address] [place] [address] PCP - General Family Medicine 04/21/23 04/25/24 AltagraciaYecenia whipple FNP [address] [place] [address] PCP - General Family Medicine 04/26/24 Colby Hirsch FNP [address] [place] [address] Nurse Practitioner Family Medicine 07/13/23 Candice Ugarte Content SpecialistBundle Tier 12/27/23 documented as of this encounter
--- OUTSIDE RECORDS SUMMARY | 2024-12-25 19:17 | XMS_ITS ---
Author Organization [facility] Address [address] [place] [address] Care Team Providers Care Software Development Advisor Name Role Phone Radha Rodriguez Primary Care Provider Rolandaa Jaylan Alaniz Unavailable [phone] REASON FOR VISIT FATTY LIVER Encounters Encounter Location Date Provider Diagnosis [facility] [address] [place] [address] 06/20/2024 Jaylan Neal Plan Of Treatment No Information Progress Notes * ABA LEUNGSDOB: 0 (44 yo F)Acc No.[id number]:06/20/2024 Progress Notes Patient:?HARMAN LEUNG Provider:?Jaylan Neal MD :1980???Age:43 Y???Sex:Female D ate:06/20/2024 Address:[address] [place] [address], [employer] Pcp:JACINTO Ramos Subjective: * Chief Complaints: * [...]
--- OUTSIDE RECORDS SUMMARY | 2024-12-25 19:17 | XMS_ITS | Encounter Summary ---
Author Organization [email or web address] Address [address] [facility] 7t [place] [address] Care Team Providers Care Post Partum Nurse Name Role Phone Marc Nicolas Primary Care Provider Unavail able Radha Shah FLOOR NURSE Primary Care Provider [phone] Colby Hirsch Unavailable Unavailable [facility] FLOOR NURSE Primary Care Provider [phone] Reason for Visit * Reason Comments Med Refill Encounter Details Date Type Department Care Team (Late Contact Info) Description 04/08/[address] [facility] [address] [place] [address] Marc Nicolas AGNP Schizoaffective disorder, depressive type [...] 2:00 PM EDT Clinical Support [facility] [address] [place], [place] [phone] Kira Bansal RN 01/24/2025 2:30 PM EDT Office Visit [facility] [address] [place] [address] Yecenia Frias FNP [address] [place] [address] documented as of this encounter Visit Diagnoses Diagnosis Schizoaffective disorder, depressive type (CMS/HCC) Schizoaffective disorder, unspecified condition Mixed anxiety and depressive disorder Dysthymic disorder documented in this encounter Additional Health Concerns Assessment Noted Time PHQ-9 Depression Total Score: 0 04/02/20 2:10 PM EDT documented as of this encounter Care Teams Post Partum Nurse Relationship Specialty Start Date End Date Marc Nicolas AGNP PCP - General Family Medicine 10/22/22 04/20/23 Radha Shah FNP [address] [place] [address] PCP - General Family Medicine 04/21/23 04/25/24 Yecenia Frias FNP [address] [place] [address] PCP - General Family Medicine 04/26/24 Colby Hirsch FNP [address] [place] [address] Nurse Practitioner Family Medicine 07/13/23 Candice Ugarte Vp ProductionSewing Supervisor 12/27/23 documented as of this encounter
--- OUTSIDE RECORDS SUMMARY | 2024-12-25 19:17 | XMS_ITS ---
Author Organization [facility] Address [address] [place] [address] Care Team Providers Care Archivist Name Role Phone Radha Rodriguez Primary Care Provider Jaylan Clancy Unavailable [phone] REASON FOR VISIT cancelled appt on 06/20/2024 Encounters Encounter Location Date Provider Diagnosis [facility] [address] [place] [address] 06/16/2024 Jaylan Neal Plan Of Treatment No Information Progress Notes * ABA LEUNGSDOB: 0 (43 yo F)Acc No.[id number]:06/16/2024 Patient:?HARMAN LEUNG :1980???Age:43 Y???Sex:Female Address:[address], [place], [address] * true * Date:? Generated for Hei chris/Lisa/eTransmitting on:?12/25/2024 07:16 PM EDT
--- OUTSIDE RECORDS SUMMARY | 2024-12-25 19:17 | XMS_ITS | Encounter Summary ---
Author Organization [employer] Address [address] 7t [place] [address] Care Team Providers Care Director Of Physiotherapy Services Name Role Phone Radha Shah GEMOLOGIST Primary Care Provider [phone] Colby Hirsch Unavailable Unavailable [facility] GEMOLOGIST Primary Care Provider [phone] Reason for Visit * Reason Onset Date Comments telephone call 10/29/2023 Encounter Details Date Type Department Care Team ([facility] st Contact Info) Description 10/29/2023 Refill [facility] [address] [place] [address] Radha Shah FNP [address] [place] [address] Multiple joint pain Social History Tobacco Use [...] does not remember the program name. A telesales team leader from the program told her that if she still want to be in the program she needs a referral from PCP. Please call patient with any concern or questions. * Telephone Encounter - Celine Pate - 11/12/2023 9:46 AM EDT Patient walked in requesting a referral for a program. Patient does not remember the program name. A telesales team leader from the program told her that if she still want to be in the program she needs a referral from PCP. Please call patient with any concern or questions. documented in this encounter Plan of Treatment Upcoming Encounters Date Type Department Care Team (Late st Contact Info) Description 01/24/2025 2:00 PM EDT Clinical Support [facility] [address] [place] [address] Kira Bansal RN 01/24/2025 2:30 PM EDT Office Visit [facility] [address] [place] [address] Yecenia Frias FNP [address] [place] [address] documented as of this encounter Visit Diagnoses Diagnosis Multiple joint pain Pain in joint, multiple sites documented in this encounter Additional Health Concerns Assessment Noted Time PHQ-9 Depression Total Score: 8 09/02/19 24 11:12 AM EST documented as of this encounter Care Teams Director Of Physiotherapy Services Relationship Specialty Start Date End Date Radha Shah FNP [address] [place] [address] PCP - General Family Medicine 04/21/23 04/25/24 Yecenia Frias FNP [address] [place] [address] PCP - General Family Medicine 04/26/24 Colby Hirsch FNP [address] [place] [address] Nurse Practitioner Family Medicine 07/13/23 Candice Ugarte Preschool Associate TeacherGas Meter Installer Helper 12/27/23 documented as of this encounter
--- OUTSIDE RECORDS SUMMARY | 2024-12-25 19:17 | XMS_ITS | Encounter Summary ---
Author Organization [employer] Address [address] 7t [place] [address] Care Team Providers Care Skiver Machine Name Role Phone Radha Shah PAYROLL OFFICER Primary Care Provider [phone] Colby Hirsch Unavailable Unavailable [facility] Primary Care Provider [phone] Encounter Details Date Type Department Care Team (Late st Contact Info) Description 10/29/2023 Orders Only [facility] & PEDS [address] [place] [address] Radha Shah FNP [address] [place] [address] Social History Tobacco Use Types Packs/Day Years [...] Description 01/24/2025 2:00 PM EDT Clinical Support [address] [address] Kira Bansal RN 01/24/2025 2:30 PM EDT Office Visit [address] [address] Yecenia Frias FNP [address] [place] [address] documented as of this encounter Visit Diagnoses Not on filedocumented in this encounter Additional Health Concerns Assessment Noted Time PHQ-9 Depression Total Score: 8 09/02/19 24 11:12 AM EST documented as of this encounter Care Teams Skiver Machine Relationship Specialty Start Date End Date Radha Shah FNP [address] [place] [address] PCP - General Family Medicine 04/21/23 04/25/24 Yecenia Frias FNP [address] [place] [address] PCP - General Family Medicine 04/26/24 Colby Hirsch FNP [address] [place] [address] Nurse Practitioner Family Medicine 07/13/23 Candice Ugarte Jewel Bearing FacerMarketing Communications Coordinator 12/27/23 documented as of this encounter
--- OUTSIDE RECORDS SUMMARY | 2024-12-25 19:17 | XMS_ITS | Patient Health Record ---
Author Organization [facility] Address [address] [place] [address] Care Team Providers Care Seed Production Field Supervisor Name Role Phone Radha Rodriguez Primary Care Provider Jaylan Clancy Unavailable [phone] Allergies Allergen (clinical drug ingredient) Drug/Non Drug [...] Provider Last Name Pablo Referred Organization [facility] Referred Provider Jaylan Neal Referred Address [address] [facility] [facility],[place], [place],[address], Referred Provider Specialty Gastroentero logy General Notes Please see if a [facility] referral is on file or needed for office visit with Dr. Neal on 06-20-2024. [facility] Dawn 05/09/2024 07:44:46 AM EDT > eligible, needs referrral...Requested from [facility] Referral Priority Routine Medications Medication [...] DAILY Oral for 30 Active Vitamin A 53129 UNIT TAKE 1 CAPSULE BY M OUTH [...] Problem Status W/U Status Risk Notes Problem 82288502 Epigastric abdom inal pain (R10.13) Active confirmed Problem 282198542 Irritable bowel syndrome with diarrhea (K58.0) Active confirmed Problem Elevated liver function tests (R79.89) Active confirmed Problem 882461504 Fatty liver (K76.0) Active confirmed Problem 981760834 Gastroesophageal reflux disease, esophagitis presence not specified (K21.9) Active confirmed Problem 988776316 Abdominal pain, right upper quadrant (R10.11) Active confirmed Encounters Encounter Location Date Provider Diagnosis [facility] [address] [place] [phone] 01/26/[address] [facility] [address] [place] [phone] 06/16/2024 Jaylan Neal Plan Of Treatment Pending Test Test Name Order Date BUN 12/29/2019 CREATININE 12/29/2019 LIVER PROFILE 12/29/2019 LIVER PROFILE 02/04/2020 LIVER PROFILE 04/09/2020 CBC w DIFF 12/29/2019 PROTHROMBIN TIME (PT, INR) 12/29/2019 [id number] (A1A) 12/29/2019 CAROTENE 12/29/2019 CERULOPLASMIN 12/29/2019 MITOCHONDRIAL [...] Start Date Coverage End Date MEDICAID OF [employer] [address] [place] CRU[place] [id number] HARMAN LEUNG Self - patient is the insured Medical (General) History Medical History History ICD Code Asthma Denies NH,CVA,renal disease Migraines Anxiety, depression, bipolar disease NIDDM EGD [place] [address] Romero described as basically unremarkable--gastric biopsies were normal--no sig. HH GERD--EGD 11/[address] wit h a small HH. Biopsies neg. [...]
--- OUTSIDE RECORDS SUMMARY | 2024-12-25 19:17 | XMS_ITS | Encounter Summary ---
Author Organization [employer] Address [address] 7t [place] [address] Care Team Providers Care Elevator Installer Apprentice Name Role Phone Radha Shah TECHNOLOGY INSTRUCTOR Primary Care Provider [phone] Colby Hirsch Unavailable Unavailable [facility] TECHNOLOGY INSTRUCTOR Primary Care Provider [phone] Encounter Details Date Type Department Care Team (Late st Contact Info) Description 04/24/2024 Orders Only [facility] CH[facility] MED & PEDS [address] [place] [address] Radha Shah FNP [address] [place] [address] Elevated lipids (Primary Dx) Social History Tobacco [...] 01/24/2025 2:00 PM EDT Clinical Support [facility] [address] [place] [address] Kira Bansal RN 01/24/2025 2:30 PM EDT Office Visit [address] [address] PowellYecenia FNP [address] [place] [address] documented as of this encounter Procedures Procedure Name Priority Date/Time Associated Diagnosis Comments LIPID PANEL, STANDARD Routine 05/12/2024 11:00 AM EDT Elevated lipids documented in this encounter Results * (ABNORMAL) Lipid Panel, Standard (05/12/2024 11:00 AM EDT) Triglycerides 100 <150 mg/dL [facility] Comment:Desirable Triglyceri de: less than 150 mg/dLBorderline High Triglyceride 150-199 mg/dLHigh Triglyceride: 200-499 mg/dLVery High Triglyceride: greater than or equal to 5OO mg/dL Cholesterol 101 <200 mg/dL [facility] Comment:Desirable Cholestero l: less than 200 mg/dLBorderline High Cholesterol: 200-239 mg/dLHigh Cholesterol: greater than 239 mg/dL LDL Cholesterol Calculated 44 <100 mg/dL [facility] Comment:Desirable LDL: less than 100 mg/dLNear Optimal/Above Optimal LDL: 110- 129 mg/dLBorderline High LDL: 130-159 mg/dLHigh LDL: 160-189 mg/dLVery High LDL: greater than or equal to 190 mg/dL HDL Cholesterol 37(L) >40 mg/dL [facility] Comment:Desirable HDL: great er than 40 mg/dL Note: This HDL assay may give artificially low results in patients with liver disease. Blood Venous blood specimen / Unknown 05/12/2024 11:00 AM EDT 05/12/2024 11:00 AM EDT Radha CASEY LAB BLOOD ORDERABLES Final Resu lt [facility] [address] [place] [address] [phone] documented in this encounter Visit Diagnoses Diagnosis Elevated lipids- Primary documented in this encounter Additional Health Concerns Assessment Noted Time PHQ-9 Depression Total Score: 7 03/07/20 24 10:13 AM EDT documented as of this encounter Care Teams Elevator Installer Apprentice Relationship Specialty Start Date End Date Radha Shah FNP [address] [place] [address] PCP - General Family Medicine 04/21/23 04/25/24 PowellYecenia FNP [address] [place] [address] PCP - General Family Medicine 04/26/24 Colby Hirsch FNP [address] [place] [address] Nurse Practitioner Family Medicine 07/13/23 Candice Ugarte Dry Wall NailerRefuge Worker 12/27/23 documented as of this encounter
--- OUTSIDE RECORDS SUMMARY | 2024-12-25 19:17 | XMS_ITS | Encounter Summary ---
Author Organization [employer] Address [address] [facility] 7t [place] [address] Care Team Providers Care Dental Coordinator Name Role Phone Marc Nicolas Primary Care Provider Unavail able Radha Shah TRAINING DESIGNER Primary Care Provider [phone] Colby Hirsch Unavailable Unavailable [facility] TRAINING DESIGNER Primary Care Provider [phone] Reason for Visit * Reason Onset Date Comments Results 04/09/2023 Encounter Details Date Type Department Care Team (Late st Contact Info) Description 04/09/2023 Telephone [facility] [address] [place] [address] Marc Nicolas AGNP Results Social History Tobacco [...] AM EDT FYI T/C to pt. Through [employer] id - [id number] for below message. Pt. States she is having apt. With Dr. Sims on 05/03/2023 and wants to discuss on that day. Pt. Advised to give call back on [phone] if any questions or concerns. Pt. Verbally agreed and understood. Please review and advise if needed. * Telephone Encounter - Romeo Child - 04/09/2023 12:19 PM EDT Tc from pt requesting status on results for Liver that were done a moth ago pt states. Please contact pt at [phone] Greek Speaker documented in this encounter Plan of Treatment Upcoming Encounters Date Type Department Care Team (Late st Contact Info) Description 01/24/2025 2:00 PM EDT Clinical Support [address] [address] Kira Bansal RN 01/24/2025 2:30 PM EDT Office Visit [facility] [address] [place] [address] AltagraciaYecenia whipple FNP [address] [place] [address] documented as of this encounter Visit Diagnoses Not on filedocumented in this encounter Additional Health Concerns Assessment Noted Time PHQ-9 Depression Total Score: 0 04/02/20 23 2:10 PM EDT documented as of this encounter Care Teams Dental Coordinator Relationship Specialty Start Date End Date Marc Nicolas AGNP PCP - General Family Medicine 10/22/22 04/20/23 Radha Shah FNP [address] [place] [address] PCP - General Family Medicine 04/21/23 04/25/24 Yecenia Frias FNP [address] [place] [address] PCP - General Family Medicine 04/26/24 Colby Hircsh FNP [address] [place] [address] Nurse Practitioner Family Medicine 07/13/23 Candice Ugarte Mechanical Manufacturing EngineerTelephone Sales Representative 12/27/23 documented as of this encounter
--- OUTSIDE RECORDS SUMMARY | 2024-12-25 19:17 | XMS_ITS | Encounter Summary ---
Author Organization [employer] Address [address] 7t [place] [address] Care Team Providers Care Electronic Components Assembler Name Role Phone Radha Shah DISASTER RECOVERY COORDINATOR Primary Care Provider [phone] Colby Hirsch Unavailable Unavailable [facility] Primary Care Provider [phone] Reason for Visit * Reason Comments Med Refill Encounter Details Date Type Department Care Team (Late st Contact Info) Description 04/12/2024 Refill [facility] [address] [place] [address] Radha Shah FNP [address] [place] [address] Multiple joint pain Social History Tobacco Use [...] 2:00 PM EDT Clinical Support [facility] [address] [place] [address] Kira Bansal RN 01/24/2025 2:30 PM EDT Office Visit [facility] [address] [place] [address] AshleyYecenia whipple FNP [address] [place] [address] documented as of this encounter Visit Diagnoses Diagnosis Multiple joint pain Pain in joint, multiple sites documented in this encounter Additional Health Concerns Assessment Noted Time PHQ-9 Depression Total Score: 7 03/07/20 24 10:13 AM EDT documented as of this encounter Care Teams Electronic Components Assembler Relationship Specialty Start Date End Date Radha Shah FNP [address] [place] [address] PCP - General Family Medicine 04/21/23 04/25/24 Yecenia Frias FNP [address] [place] [address] PCP - General Family Medicine 04/26/24 Colby Hirsch FNP [address] [place] [address] Nurse Practitioner Family Medicine 07/13/23 Candice Ugarte Plaster Model And Mold MakerChief Technical Officer 12/27/23 documented as of this encounter
--- OUTSIDE RECORDS SUMMARY | 2024-12-25 19:18 | XMS_ITS | Encounter Summary ---
Author Organization [employer] Address [address] 7t [place] [address] Care Team Providers Care Dye House Supervisor Name Role Phone Radha Shah CASINO FLOORPERSON Primary Care Provider [phone] Colby Hirsch Unavailable Unavailable [facility] Primary Care Provider [phone] Encounter Details Date Type Department Care Team (Late st Contact Info) Description 03/08/2024 Orders Only [facility] CH[facility] MED & PEDS [address] [place] [address] Radha Shah FNP [address] [place] [address] Social History Tobacco Use Types Packs/Day Years [...] Description 01/24/2025 2:00 PM EDT Clinical Support [address] [address] Kira Bansal RN 01/24/2025 2:30 PM EDT Office Visit [facility] [address] [place] [address] LeotaYecenia whipple FNP [address] [place] [address] documented as of this encounter Visit Diagnoses Not on filedocumented in this encounter Additional Health Concerns Assessment Noted Time PHQ-9 Depression Total Score: 7 03/07/20 24 10:13 AM EDT documented as of this encounter Care Teams Dye House Supervisor Relationship Specialty Start Date End Date Radha Shah FNP [address] [place] [address] PCP - General Family Medicine 04/21/23 04/25/24 Yecenia Frias FNP [address] [place] [address] PCP - General Family Medicine 04/26/24 Colby Hirsch FNP [address] [place] [address] Nurse Practitioner Family Medicine 07/13/23 Candice Ugarte Variety PerformerEnvironmental Science Program Director 12/27/23 documented as of this encounter
--- OUTSIDE RECORDS SUMMARY | 2024-12-25 19:18 | XMS_ITS | Encounter Summary ---
Author Organization [employer] Address [address] [facility] 7t [place] [address] Care Team Providers Care Office Technology Instructor Name Role Phone Colby Hirsch LINK AND LINK KNITTING MACHINE OPERATOR Unavailable Unavailable [facility] Primary Care Provider [phone] Reason for Visit * Reason Comments Med Refill Encounter Details Date Type Department Care Team ([facility] st Contact Info) Description 10/31/2024 Refill [facility] [address] [place] [address] [facility] [address] [place] [address] Type 2 diabetes mellitus without complication, with long-term current use of insulin ([facility]) Social History Tobacco Use Types Packs/Day Years [...] Description 01/24/2025 2:00 PM EDT Clinical Support [facility] [address] [place] [address] Kira Bansal RN 01/24/2025 2:30 PM EDT Office Visit [facility] [address] [place] [address] Yecenia Frias FNP [address] [place] [address] documented as of this encounter Visit Diagnoses Diagnosis Type 2 diabetes mellitus without complication, with long-term current use of insulin ([facility]) documented in this encounter Additional Health Concerns Assessment Noted Time PHQ-9 Depression Total Score: 0 10/24/19 25 1:15 PM EST documented as of this encounter Care Teams Office Technology Instructor Relationship Specialty Start Date End Date Yecenia Frias FNP [address] [place] [address] PCP - General Family Medicine 04/26/24 Colby Hirsch FNP Nurse Practitioner Family Medicine 07/13/23 Candice Ugarte Director Of Emergency NursingBattery Wrecker Operator 12/27/23 documented as of this encounter
--- OUTSIDE RECORDS SUMMARY | 2024-12-25 19:18 | XMS_ITS | Encounter Summary ---
Author Organization [employer] Address [address] [facility] 7t [place] [address] Care Team Providers Care Fpga Design Engineer Name Role Phone Radha Shah Primary Care Provider [phone] Colby Hirsch Unavailable Unavailable [facility] Primary Care Provider [phone] Reason for Referral * Consultation (Routine) - Closed Specialty Diagnoses / Procedures Referred By Aminta anderson Referred To Contact Diagnoses Routine adult health maintenance Radha Shah FNP [address] [place] [address] Phone: tel: fax: [address] [address] Phone: tel: fax: Referral ID Status Reason Start Date Expiration Date V isits Requested Visits Authorized [id number] Closed Specialty Services Required 02/16/2024 02/15/2025 1 1 Encounter Details Date Type Department Care Team (Late st Contact Info) Description 02/16/2024 Orders Only [facility] MED & PEDS [address] [place] [address] Radha Shah FNP [address] [place] [address] Routine adult health maintenance (Primary Dx) Social [...] Description 01/24/2025 2:00 PM EDT Clinical Support [facility] [address] [place] [address] Kira Bansal, MEREDITH 01/24/2025 2:30 PM EDT Office Visit [facility] [address] [place] [address] Yecenia Frias FNP [address] [place] [address] Scheduled Referrals Name Type Priority Associated Diagnoses [...] documented as of this encounter Care Teams Fpga Design Engineer Relationship Specialty Start Date End Date Radha Shah FNP [address] [place] [address] PCP - General Family Medicine 04/21/23 04/25/24 HaydenYecenia whipple FNP [address] [place] [address] PCP - General Family Medicine 04/26/24 Colby Hirsch FNP [address] [place] [address] Nurse Practitioner Family Medicine 07/13/23 Candice gUarte Wool Fleece GraderMohs Surgeon 12/27/23 documented as of this encounter
--- OUTSIDE RECORDS SUMMARY | 2024-12-25 19:18 | XMS_ITS | Encounter Summary ---
Author Organization [employer] Address [address] [facility] [address] [facility] [address] 7t [place] [address] Care Team Providers Care Director Of Home Economics Name Role Phone Radha Sahh LABORER EGG PRODUCING FARM Primary Care Provider [phone] Colby Hirsch LABORER EGG PRODUCING FARM Unavailable Unavailable [facility] LABORER EGG PRODUCING FARM Primary Care Provider [phone] Reason for Visit * Reason Comments Med Refill Encounter Details Date Type Department Care Team (Late st Contact Info) Description 06/16/2023 Refill [facility] [address] [place] [address] Marc Nicolas AGNP Pain Social History Tobacco [...] Description 01/24/2025 2:00 PM EDT Clinical Support [address] [address] Kira Bansal RN 01/24/2025 2:30 PM EDT Office Visit [address] [address] AltagraciaYecenia whipple FNP [address] [place] [address] documented as of this encounter Visit Diagnoses Diagnosis Pain Generalized pain documented in this encounter Additional Health Concerns Assessment Noted Time PHQ-9 Depression Total Score: 6 06/15/20 23 10:23 AM EDT documented as of this encounter Care Teams Director Of Home Economics Relationship Specialty Start Date End Date Radha Shah FNP [address] [place] [address] PCP - General Family Medicine 04/21/23 04/25/24 ThayerYecenia FNP [address] [place] [address] PCP - General Family Medicine 04/26/24 Colby Hirsch FNP [address] [place] [address] Nurse Practitioner Family Medicine 07/13/23 Candice Ugarte Employment Services DirectorSanitation Inspector 12/27/23 documented as of this encounter
--- OUTSIDE RECORDS SUMMARY | 2024-12-25 19:18 | XMS_ITS | Encounter Summary ---
Author Organization [employer] Address [address] [facility] 7t [place] [address] Care Team Providers Care Naturopath Name Role Phone Radha Shah [facility] Primary Care Provider [phone] Colby Hirsch GRASSROOTS ORGANIZER Unavailable Unavailable [facility] Primary Care Provider [phone] Reason for Visit * Reason Comments Med Refill Encounter Details Date Type Department Care Team (Late st Contact Info) Description 06/09/2023 Refill [facility] [address] [place] [address] Marilee Buckner FNP [address] [place] [address] [place] [address] Multiple joint pain; Mixed anxiety and depressive [...] PM EDT Clinical Support [facility] [address] [place] [address] Kira Bansal RN 01/24/2025 2:30 PM EDT Office Visit [facility] [address] [place] [address] TijerasYecenia [address] [address] documented as of this encounter Visit Diagnoses Diagnosis Multiple joint pain Pain in joint, multiple sites Mixed anxiety and depressive disorder Dysthymic disorder documented in this encounter Additional Health Concerns Assessment Noted Time PHQ-9 Depression Total Score: 18 023 11:25 AM EDT documented as of this encounter Care Teams Naturopath Relationship Specialty Start Date End Date Radha Shah FNP [address] [place] [address] PCP - General Family Medicine 04/21/23 04/25/24 TijerasYecenia whipple FNP [address] [place] [address] PCP - General Family Medicine 04/26/24 Colby Hirsch FNP [address] [place] [address] Nurse Practitioner Family Medicine 07/13/23 Candice Ugarte Copy Center AssociateOpen Die Inspector 12/27/23 documented as of this encounter
--- OUTSIDE RECORDS SUMMARY | 2024-12-25 19:18 | XMS_ITS | Encounter Summary ---
Author Organization [employer] Address [address] [facility] [address] 7t [place] [address] Care Team Providers Care Airport Traffic Controller Name Role Phone Radha Shah SURGICAL ORDERLY Primary Care Provider [phone] Colby Hirsch Unavailable Unavailable [facility] Primary Care Provider [phone] Reason for Visit * Reason Comments Med Refill Encounter Details Date Type Department Care Team (Late st Contact Info) Description 02/16/2024 Refill [facility] [address] [place] [address] Radha Shah FNP [address] [place] [address] Multiple joint pain Social History Tobacco Use [...] EDT Clinical Support [facility] [address] [place] [address] Kira Bansal RN 01/24/2025 2:30 PM EDT Office Visit [facility] [address] [place] [address] WaynokaYecenia FNP [address] [place] [address] documented as of this encounter Visit Diagnoses Diagnosis Multiple joint pain Pain in joint, multiple sites documented in this encounter Additional Health Concerns Assessment Noted Time PHQ-9 Depression Total Score: 6 12/28/19 24 11:17 AM EDT documented as of this encounter Care Teams Airport Traffic Controller Relationship Specialty Start Date End Date Radha Shah FNP [address] [place] [address] PCP - General Family Medicine 04/21/23 04/25/24 AltagraciaYecenia whipple FNP [address] [place] [address] PCP - General Family Medicine 04/26/24 Colby Hirsch FNP [address] [place] [address] Nurse Practitioner Family Medicine 07/13/23 Candice Ugarte Wastewater Treatment EngineerNib Finisher 12/27/23 documented as of this encounter
--- OUTSIDE RECORDS SUMMARY | 2024-12-25 19:18 | XMS_ITS | Encounter Summary ---
Author Organization [employer] Address [address] 7t [place] [address] Care Team Providers Care Fruit Vendor Name Role Phone Radha Shah FINANCIAL SERVICES OFFICER Primary Care Provider [phone] Colby Hirsch Unavailable Unavailable [facility] Primary Care Provider [phone] Encounter Details Date Type Department Care Team (Late st Contact Info) Description 02/17/2024 Community Care Management [facility] MED[facility]INE [address] [place] [address] Radha Shah FNP [address] [place] [address] Social History Tobacco Use Types Packs/Day Years [...] Description 01/24/2025 2:00 PM EDT Clinical Support [address] [address] Kira Bansal RN 01/24/2025 2:30 PM EDT Office Visit [address] [address] Yecenia Frias FNP [address] [place] [address] documented as of this encounter Visit Diagnoses Not on filedocumented in this encounter Additional Health Concerns Assessment Noted Time PHQ-9 Depression Total Score: 6 12/28/19 24 11:17 AM EDT documented as of this encounter Care Teams Fruit Vendor Relationship Specialty Start Date End Date Radha Shah FNP [address] [place] [address] PCP - General Family Medicine 04/21/23 04/25/24 Yecenia Frias FNP [address] [place] [address] PCP - General Family Medicine 04/26/24 Colby Hirsch FNP [address] [place] [address] Nurse Practitioner Family Medicine 07/13/23 Candice Ugarte Corporation OfficerLiquified Natural Gas Specialist 12/27/23 documented as of this encounter
--- OUTSIDE RECORDS SUMMARY | 2024-12-25 19:18 | XMS_ITS | Encounter Summary ---
Author Organization [employer] Address [address] [facility] 7t [place] [address] Care Team Providers Care Dye Reel Operator Name Role Phone Colby Hirsch BRAND ADVISOR Unavailable Unavailable [facility] Primary Care Provider [phone] Encounter Details Date Type Department Care Team (Late st Contact Info) Description 08/11/2024 Telephone [facility] MED[facility]INE [address] [place] [address] [facility] 230 [place] [address] Social History Tobacco Use Types Packs/Day Years [...] 2:00 PM EDT Clinical Support [facility] MEDICINE [address] [place] [address] Kira Bansal RN 01/24/2025 2:30 PM EDT Office Visit [address] [address] Yecenia Frias FNP [address] [place] [address] documented as of this encounter Visit Diagnoses Not on filedocumented in this encounter Additional Health Concerns Assessment Noted Time PHQ-9 Depression Total Score: 7 03/07/20 24 10:13 AM EDT documented as of this encounter Care Teams Dye Reel Operator Relationship Specialty Start Date End Date Yecenia Frias FNP [address] [place] [address] PCP - General Family Medicine 04/26/24 Colby Hirsch FNP Nurse Practitioner Family Medicine 07/13/23 Candice Ugarte Superintendent LaundryPaediatrician 12/27/23 documented as of this encounter
--- OUTSIDE RECORDS SUMMARY | 2024-12-25 19:18 | XMS_ITS | Encounter Summary ---
Author Organization [employer] Address [address] [facility] 7t [place] [address] Care Team Providers Care Sales Promotion Director Name Role Phone Radha Shah [facility] Primary Care Provider [phone] Colby Hirsch MOLDING LINE ASSISTANT Unavailable Unavailable [facility] Primary Care Provider [phone] Reason for Visit * Reason Onset Date Comments Results 02/16/2024 Care Coordination 02/16/[address] Kelly joshua telephone call outreached Encounter Details Date Type Department Care Team (Late st Contact Info) Description 02/16/2024 Telephone [facility] MEDICINE [address] [place] [address] Radha Shah FNP [address] [place] [address] Results; Care Coordination ([id number] Obrien telephone call outreached) Social History Tobacco [...] results: labs Date when done: 02/06 Facility: [facility] Please contact pt at [phone] documented in this encounter Plan of Treatment Upcoming Encounters Date Type Department Care Team (Late st Contact Info) Description 01/24/2025 2:00 PM EDT Clinical Support [facility] [place] [address] Kira Bansal RN 01/24/2025 2:30 PM EDT Office Visit [facility] [address] [place] [address] Yecenia Frias FNP [address] [place] [address] documented as of this encounter Visit Diagnoses Not on filedocumented in this encounter Additional Health Concerns Assessment Noted Time PHQ-9 Depression Total Score: 6 12/28/19 24 11:17 AM EDT documented as of this encounter Care Teams Sales Promotion Director Relationship Specialty Start Date End Date Radha [place] [address] PCP - General Family Medicine 04/21/23 04/25/24 Yecenia Frias FNP [address] [place] [address] PCP - General Family Medicine 04/26/24 Colby Hirsch FNP [address] [place] [address] Nurse Practitioner Family Medicine 07/13/23 Candice Ugarte Legal Executive AssistantHealth Technician 12/27/23 documented as of this encounter
--- OUTSIDE RECORDS SUMMARY | 2024-12-25 19:18 | XMS_ITS | Encounter Summary ---
Author Organization [employer] Address [address] [facility] [address] 7t [place] [address] Care Team Providers Care Funeral Home Location Manager Name Role Phone PabloRadha COLLECTION MANAGER Primary Care Provider [phone] Colby Hirsch Unavailable Unavailable [facility] Primary Care Provider [phone] Reason for Visit * Reason Comments Med Refill Encounter Details Date Type Department Care Team (Late st Contact Info) Description 01/04/[address] [facility] 230 [place] [address] Colby Hirsch FNP Social History Tobacco Use [...] Description 01/24/2025 2:00 PM EDT Clinical Support [address] [address] Kira Bansal RN 01/24/2025 2:30 PM EDT Office Visit [facility] [address] [place] [address] Yecenia Frias FNP [address] [place] [address] documented as of this encounter Visit Diagnoses Not on filedocumented in this encounter Additional Health Concerns Assessment Noted Time PHQ-9 Depression Total Score: 6 12/28/19 24 11:17 AM EDT documented as of this encounter Care Teams Funeral Home Location Manager Relationship Specialty Start Date End Date Radha Shah FNP [address] [place] [address] PCP - General Family Medicine 04/21/23 04/25/24 JonestownYecenia whipple FNP [address] [place] [address] PCP - General Family Medicine 04/26/24 Colby Hirsch FNP [address] [place] [address] Nurse Practitioner Family Medicine 07/13/23 Candice Ugarte Shortage WorkerOxyacetylene Burner 12/27/23 documented as of this encounter
--- OUTSIDE RECORDS SUMMARY | 2024-12-25 19:18 | XMS_ITS | Encounter Summary ---
Author Organization [employer] Address [address] [facility] 7t [place] [address] Care Team Providers Care Greenhouse Manager Name Role Phone Colby Hirsch VAN CDL DRIVER Unavailable Unavailable [facility] Primary Care Provider [phone] Reason for Visit * Reason Onset Date Comments FYI 06/23/2024 Encounter Details Date Type Department Care Team ([facility] st Contact Info) Description 06/23/2024 Telephone [facility] MEDICINE 230 [place] [address] [facility] 230 [place] [address] Social History Tobacco Use Types Packs/Day Years [...] 9:36 AM EDT Tc from Maribel at [facility] calling inform provider pt cancelled appointment with did not want to r/s. If any questions contact Maribel at [phone] documented in this encounter Plan of Treatment Upcoming Encounters Date Type Department Care Team ([facility] st Contact Info) Description 01/24/2025 2:00 PM EDT Clinical Support [facility]INE [address] [place] [address] Kira Bansal RN 01/24/2025 2:30 PM EDT Office Visit [facility] [address] [place] [address] Yecenia Frias FNP [address] [place] [address] documented as of this encounter Visit Diagnoses Not on filedocumented in this encounter Additional Health Concerns Assessment Noted Time PHQ-9 Depression Total Score: 7 03/07/20 24 10:13 AM EDT documented as of this encounter Care Teams Greenhouse Manager Relationship Specialty Start Date End Date Yecenia Frias FNP [address] [place] [address] PCP - General Family Medicine 04/26/24 Colby Hirsch FNP Nurse Practitioner Family Medicine 07/13/23 Candice Ugarte Food Safety CoordinatorResin Remover 12/27/23 documented as of this encounter
--- OUTSIDE RECORDS SUMMARY | 2024-12-25 19:18 | XMS_ITS | Encounter Summary ---
Author Organization [employer] Address [address] [facility] 7t [place] [address] Care Team Providers Care Extended Insurance Clerk Name Role Phone Marc Nicolas Primary Care Provider Unavail able Radha Shah CONTRACTS INTERN Primary Care Provider [phone] Colby Hirsch Unavailable Unavailable [facility] CONTRACTS INTERN Primary Care Provider [phone] Reason for Visit * Reason Comments Med Refill Encounter Details Date Type Department Care Team (Late Contact Info) Description 03/10/2023 Refill [facility] [address] [place] [address] Marc Nicolas AGNP Mixed anxiety and depressive [...] Description 01/24/2025 2:00 PM EDT Clinical Support [facility] [address] [place] [address] Kira Bansal RN 01/24/2025 2:30 PM EDT Office Visit [facility] [address] [place] [address] Yecenia Frias FNP [address] [place] [address] documented as of this encounter Visit Diagnoses Diagnosis Mixed anxiety and depressive disorder Dysthymic disorder documented in this encounter Additional Health Concerns Assessment Noted Time PHQ-9 Depression Total Score: 13 023 3:27 PM EDT documented as of this encounter Care Teams Extended Insurance Clerk Relationship Specialty Start Date End Date Marc Nicolas AGNP PCP - General Family Medicine 10/22/22 04/20/23 [place] [address] PCP - General Family Medicine 04/21/23 04/25/24 [place]enia [place] [address] PCP - General Family Medicine 04/26/24 Colby Hirsch FNP [address] [place] [address] Nurse Practitioner Family Medicine 07/13/23 Candice Ugarte Housekeeping CleanerManager Architectural 12/27/23 documented as of this encounter
--- OUTSIDE RECORDS SUMMARY | 2024-12-25 19:18 | XMS_ITS | Encounter Summary ---
Author Organization [employer] Address [address] [facility] [address] 7t [place] [address] Care Team Providers Care Clean Out Driller Name Role Phone Marc Nicolas Primary Care Provider Unavail able Radha Shah WOOL FLEECE GRADER Primary Care Provider [phone] Colby Hirsch Unavailable Unavailable [facility] WOOL FLEECE GRADER Primary Care Provider [phone] Reason for Visit * Reason Comments Med Refill Encounter Details Date Type Department Care Team ([facility] Contact Info) Description 04/07/2023 Refill [facility] [address] [place], [place] [phone] Marc Nicolas AGNP Multiple joint pain Social [...] Upcoming Encounters Date Type Department Care Team ([facility] Contact Info) Description 01/24/2025 2:00 PM EDT Clinical Support [address] [phone] Kira Bansal RN 01/24/2025 2:30 PM EDT Office Visit [facility] MEDICINE [address] [place] [address] LeonYecenia FNP 230 [place] [address] documented as of this encounter Visit Diagnoses Diagnosis Multiple joint pain Pain in joint, multiple sites documented in this encounter Additional Health Concerns Assessment Noted Time PHQ-9 Depression Total Score: 0 04/02/20 2:10 PM EDT documented as of this encounter Care Teams Clean Out Driller Relationship Specialty Start Date End Date Marc Nicolas AGNP PCP - General Family Medicine 10/22/22 04/20/23 Radha Shah FNP 230 [place] [address] PCP - General Family Medicine 04/21/23 04/25/24 LeonYecenia FNP [address] [place] [address] PCP - General Family Medicine 04/26/24 Colby Hirsch FNP [address] [place] [address] Nurse Practitioner Family Medicine 07/13/23 Candice Ugarte Account Maintenance RepresentativeBurning Plant Operator 12/27/23 documented as of this encounter
--- OUTSIDE RECORDS SUMMARY | 2024-12-25 19:18 | XMS_ITS | Encounter Summary ---
Author Organization [employer] Address [address] [facility] [address] 7t [place] [address] Care Team Providers Care Flying Ii Instructor Name Role Phone Marc Nicolas Primary Care Provider Unavail able Radha Shah LOG HANDLER Primary Care Provider [phone] Colby Hirsch Unavailable Unavailable [facility] LOG HANDLER Primary Care Provider [phone] Reason for Visit * Reason Comments Med Refill Encounter Details Date Type Department Care Team (Late st Contact Info) Description 03/10/2023 Refill [facility] [address] [place] [address] Marc Nicolas AGNP Mixed anxiety and depressive [...] Will send to PCP on 03/18/23. Has GEOGRAPHY INSTRUCTOR scheduled 03/17/23. * Telephone Encounter - Chikadeborah Low - 03/15/2023 9:14 AM EDT Tc from patient requesting a med refill for medication tramadol [address] Nicolas documented in this encounter Plan of Treatment Upcoming Encounters Date Type Department Care Team (Late st Contact Info) Description 01/24/2025 2:00 PM EDT Clinical Support [address] [address] Kira Bansal RN 01/24/2025 2:30 PM EDT Office Visit [address] [address] Yecenia Frias FNP [address] [place] [address] documented as of this encounter Visit Diagnoses Diagnosis Mixed anxiety and depressive disorder Dysthymic disorder Multiple joint pain Pain in joint, multiple sites documented in this encounter Additional Health Concerns Assessment Noted Time PHQ-9 Depression Total Score: 13 023 3:27 PM EDT documented as of this encounter Care Teams Flying Ii Instructor Relationship Specialty Start Date End Date Marc Nicolas AGNP PCP - General Family Medicine 10/22/22 04/20/23 Radha Shah FNP [address] [place] [address] PCP - General Family Medicine 04/21/23 04/25/24 Yecenia Frias FNP [address] [place] [address] PCP - General Family Medicine 04/26/24 Colby Hirsch FNP 230 [place] [address] Nurse Practitioner Family Medicine 07/13/23 Candice Ugarte Dental Laboratory Technician ApprenticeTrading Analyst 12/27/23 documented as of this encounter
--- OUTSIDE RECORDS SUMMARY | 2024-12-25 19:18 | XMS_ITS | Encounter Summary ---
Author Organization [employer] Address [address] [facility] 7t [place] [address] Care Team Providers Care Gas Plant Specialist Name Role Phone Marc Nicolas Primary Care Provider Unavail able Radha Shah MEASUREMENT PSYCHOLOGIST Primary Care Provider [phone] Colby Hirsch Unavailable Unavailable [facility] MEASUREMENT PSYCHOLOGIST Primary Care Provider [phone] Reason for Visit * Reason Comments Med Refill Encounter Details Date Type Department Care Team ([facility] Contact Info) Description 03/17/2023 Refill [facility]ICINE [address] [place] [address] Marc Nicolas AGNP Mixed anxiety and depressive [...] Upcoming Encounters Date Type Department Care Team ([facility] Contact Info) Description 01/24/2025 2:00 PM EDT Clinical Support [facility] [address] [place] [address] Kira Bansal RN 01/24/2025 2:30 PM EDT Office Visit [facility] [address] [place] [address] Yecenia Frias FNP 230 [place] [address] documented as of this encounter Visit Diagnoses Diagnosis Mixed anxiety and depressive disorder Dysthymic disorder documented in this encounter Additional Health Concerns Assessment Noted Time PHQ-9 Depression Total Score: 13 023 3:27 PM EDT documented as of this encounter Care Teams Gas Plant Specialist Relationship Specialty Start Date End Date Marc Nicolas AGNP PCP - General Family Medicine 10/22/22 04/20/23 Radha Shah FNP [address] [place] [address] PCP - General Family Medicine 04/21/23 04/25/24 Yecenia Frias FNP [address] [place] [address] PCP - General Family Medicine 04/26/24 Colby Hirsch FNP [address] [place] [address] Nurse Practitioner Family Medicine 07/13/23 Candice Ugarte GripStabilizing Machine Operator 12/27/23 documented as of this encounter
--- OUTSIDE RECORDS SUMMARY | 2024-12-25 19:18 | XMS_ITS | Encounter Summary ---
Author Organization [employer] Address 75 [facility] 7t [place] [address] Care Team Providers Care Driving Teacher Name Role Phone Colby Hirsch SKID WRAPPER Unavailable Unavailable [facility] Primary Care Provider Reason for Visit * Reason Onset Date Comments Med Refill 09/29/2024 Encounter Details Date Type Department Care Team ([facility] st Contact Info) Description 09/29/2024 Telephone [facility] 230 [place] [address] [facility] [address] [place] [address] Med Refill Social History Tobacco Use Types [...] 50 MG tablet To be sent to: [facility] documented in this encounter Plan of Treatment Upcoming Encounters Date Type Department Care Team (Late st Contact Info) Description 01/24/2025 2:00 PM EDT Clinical Support [facility] [address] [place] [address] Kira Bansal RN 01/24/2025 2:30 PM EDT Office Visit [facility] [address] [place] [address] Yecenia Frias FNP [address] [place] [address] documented as of this encounter Visit Diagnoses Not on filedocumented in this encounter Additional Health Concerns Assessment Noted Time PHQ-9 Depression Total Score: 7 03/07/20 24 10:13 AM EDT documented as of this encounter Care Teams Driving Teacher Relationship Specialty Start Date End Date Yecenia Frias FNP [address] [place] [address] PCP - General Family Medicine 04/26/24 Colby Hirsch FNP Nurse Practitioner Family Medicine 07/13/23 Candice Ugarte Set Up Mold TechnicianMincing Machine Operator 12/27/23 documented as of this encounter
--- OUTSIDE RECORDS SUMMARY | 2024-12-25 19:18 | XMS_ITS | Encounter Summary ---
Author Organization [employer] Address [address] [facility] [address] 7t [place] [address] Care Team Providers Care Industrial Equipment Mechanic Name Role Phone Marc Nicolas Primary Care Provider Unavail able Radha Shah PROFESSOR OF ART HISTORY Primary Care Provider [phone] Colby HirschP Unavailable Unavailable [facility] PROFESSOR OF ART HISTORY Primary Care Provider [phone] Reason for Visit * Reason Onset Date Comments Med Refill 03/10/2023 Encounter Details Date Type Department Care Team ([facility] Contact Info) Description 03/10/[address] [phone] Marc Nicolas AGNP Med Refill Social History [...] Upcoming Encounters Date Type Department Care Team ([facility] Contact Info) Description 01/24/2025 2:00 PM EDT Clinical Support [address] [address] Kira Bansal RN 01/24/2025 2:30 PM EDT Office Visit [facility] [address] [place] [address] Yecenia Frias FNP 230 [place] [address] documented as of this encounter Visit Diagnoses Not on filedocumented in this encounter Additional Health Concerns Assessment Noted Time PHQ-9 Depression Total Score: 13 023 3:27 PM EDT documented as of this encounter Care Teams Industrial Equipment Mechanic Relationship Specialty Start Date End Date Marc Nicolas AGNP PCP - General Family Medicine 10/22/22 04/20/23 [place] [address] PCP - General Family Medicine 04/21/23 04/25/24 Yecenia Frias FNP [address] [place] [address] PCP - General Family Medicine 04/26/24 Colby Hirsch FNP [address] [place] [address] Nurse Practitioner Family Medicine 07/13/23 Candice Ugarte Field Nurse Case ManagerMedical Appliance Maker 12/27/23 documented as of this encounter
--- OUTSIDE RECORDS SUMMARY | 2024-12-25 19:18 | XMS_ITS | Encounter Summary ---
Author Organization [employer] Address [address] [place] [address] Care Team Providers Care Welder Pipe Making Name Role Phone Marc Nicolas Primary Care Provider Unavail able Radha Shah Primary Care Provider [phone] Colby Hirsch Unavailable Unavailable [facility] CHEMICAL DEPENDENCY THERAPIST Primary Care Provider [phone] Reason for Visit * Reason Onset Date Comments Med Refill 03/16/2023 Encounter Details Date Type Department Care Team (Late st Contact Info) Description 03/16/2023 Telephone [facility] MEDICINE [address] [place] [address] Marc Nicolas AGNP Med Refill Social History [...] Miscellaneous Notes * Telephone Encounter - Kira Basnal RN - 03/16/2023 3:56 PM EDT Pt scheduled for [employer] RV 03/17/23 @ 10am. Tramadol refill due 03/19/23, Clonazepam refill due 03/18/23.Will forward request to PCP after [employer] appt 03/17/23. * Telephone Encounter - Natividad Rio - 03/16/2023 3:36 PM EDT Tc from pt requesting medication refill on traMADol (Ultram) 50 MG tablet and clonazePAM (KlonoPIN)0.5 MG tablet documented in this encounter Plan of Treatment Upcoming Encounters Date Type Department Care Team (Late st Contact Info) Description 01/24/2025 2:00 PM EDT Clinical Support [address] [address] Kira Bansal RN 01/24/2025 2:30 PM EDT Office Visit [address] [address] [place] [address] [address] documented as of this encounter Visit Diagnoses Not on filedocumented in this encounter Additional Health Concerns Assessment Noted Time PHQ-9 Depression Total Score: 13 023 3:27 PM EDT documented as of this encounter Care Teams Welder Pipe Making Relationship Specialty Start Date End Date Marc Nicolas AGNP PCP - General Family Medicine 10/22/22 04/20/23 Radha Shah FNP [address] [place] [id number] PCP - General Family Medicine 04/21/23 04/25/24 [place] whipple FNP [address] [place] [phone] PCP - General Family Medicine 04/26/24 Colby Hirsch FNP [address] [place] [address] Nurse Practitioner Family Medicine 07/13/23 Candice Ugarte Head CounselorPump Operator 12/27/23 documented as of this encounter
[2024-12-25 19:49] VITALS: BP 129/79; BP 131/78; PULSE 83; PULSE 87
[2024-12-25 19:50] VITALS: BP 133/79; PULSE 85
[2024-12-25 20:39] LABS: Influenza A PCR NEGATIVE (Negative); Influenza B PCR NEGATIVE (Negative); Resp Syncy Virus RNA Qual PCR NEGATIVE (Negative); SARS COV2 PCR INHOUSE NEGATIVE (Negative)
[2024-12-25 21:34] VITALS: BP 132/86; PULSE 86; RESP 18; TEMP 36.8; O2SAT 97
[2024-12-25 21:35] VITALS: BP 132/86; PULSE 86; RESP 18; TEMP 36.8; O2SAT 97
== END 2024-12-25 21:35 | disposition home or self-care (01) ==
PROVIDERS: Nurse Practitioner Family; Physician Assistant; Emergency Provider Emergency Medicine Emergency Medical Services
DX: R07.9 Chest pain, unspecified (principal); E11.9 Type 2 diabetes mellitus without complications; K21.9 Gastro-esophageal reflux disease without esophagitis; J45.909 Unspecified asthma, uncomplicated; Z79.899 Other long term (current) drug therapy; Z03.818 Encounter for observation for suspected exposure to other biological agents ruled out
CPT/HCPCS: 0241U; 36415; 71045; 80053; 82947; 83880; 84484; 85025; 85610; 85730; 93005; 99284

== ENCOUNTER → 2024-12-25 14:23 | Outpatient (BNV) | payer MEDICAID, SELFPAY | PROVIDERS: Emergency Provider Emergency Medicine Emergency Medical Services; Visit Provider Internal Medicine | DX: R07.9 Chest pain, unspecified (principal) | CPT/HCPCS: 93010 ==

== ENCOUNTER → 2024-12-25 14:49 | Outpatient (BNV) | payer MEDICAID, SELFPAY | PROVIDERS: Visit Provider Radiology Diagnostic Radiology | DX: R07.9 Chest pain, unspecified (principal) | CPT/HCPCS: 71045 ==

== ENCOUNTER 2025-01-01 12:56 | Outpatient (AMB) | payer MEDICAID, SELFPAY ==
--- NOTE | 2025-01-01 12:58 | A.OFFVIS_ITS ---
Vital Signs 01/01/25 13:03 Height 5 ft Weight 182 lb 8.684 oz BMI 35.6 BP 110/68 Blood Pressure Location Rt brachial Position Sitting Pulse 70 Pulse Source Pulse Oximeter Pulse Oximetry (%) 98 Oxygen Delivery Method Room Air Intake Visit Reasons: T2DM Intake Note: Patient present today for Type 2 Diabetes Mellitus Last Diabetic eye exam: 08/2024 Last Podiatry Visit: Doesn't have one Random Glucose: 101 mg/dl HgA1C: Due Mining Plant Operator Required: Yes Mining Plant Operator Language: Surgical Processor Services: Mining Plant Operator Present Mining Plant Operator Name: Charis Information Interpreted: non-clinical & clinical Accompanied by: Self / Same As Patient Allergies pineapple Allergy (Severe, Verified 01/01/25 13:06) tongue swelling diphenhydramine [From BENADRYL] Allergy (Intermediate, Verified 01/01/25 13:06) HALLUCINATIONS morphine [MORPHINE] Allergy (Intermediate, Verified 01/01/25 13:06) DIAPHORESIS; TACHYCARDIA, palpitations, sweating, tingling of hands and face quetiapine [From SEROQUEL] Allergy (Intermediate, Verified 01/01/25 13:06) PALPITATIONS seafood Allergy (Intermediate, Verified 01/01/25 13:06) redness/itching tomato Allergy (Intermediate, Verified 01/01/25 13:06) Blister trazodone [TRAZODONE] Allergy (Intermediate, Verified 01/01/25 13:06) GI Upset, HEART RACING, palpitations prednisone [PREDNISONE] Adverse Reaction (Intermediate, Verified 01/01/25 13:06) HEART RACES HPI HPI T2DM: Details: Patient is a 44-year-old female with a significant past medical history of cardiomyopathy, hypertension, hyperlipidemia and type 2 diabetes presenting diabetes. Tonia is present today to help with translation. Endo: She is currently taking metformin 500 mg nightly And Trulicity 0.75 mg. A1c unable to be run today in the office due to machine being down. She is on an BERTHA-inhibitor. Cholesterol is managed with atorvastatin. Follows with Ophthalmology and due for eye exam. no known hx of retinopathy. Does not Follow with Podiatry. - Trulicity was started by PCP due to insurance issues. In September insurance stopped covering the Vasiliy as she had not tried Trulicity. She states that she has been on Trulicity for about a month and a half and does not like this medication. It is not effectively treating her blood sugars but she states that she gets a headache with it, dizziness and nausea. She feels sick with this medication. -stopped ozempic because it did not control her blood sugars. did not contact for new dose. Rodney made her feel sick with headache and dizziness, in the past was on Victoza but has been unable to get this at local pharmacies. -in the past tried glipizide but did not tolerate this. CV: Blood pressure today is 110/68. She is on lisinopril 5 mg, Toprol 12.5 mg twice a day. she is compliant with atorvastatin. COUNT INCLUDES THE [facility] Medical History Bilateral kidney stones T2DM (type 2 diabetes mellitus) Pain of left middle finger Left hand pain Left wrist pain Numbness and tingling in left hand De Quervain's tenosynovitis, left Skin lesion of breast Rotator cuff strain Right flank pain Abnormal stress ECG with treadmill Chest discomfort Hypertrophic scar of upper arm Shoulder pain Epidermal inclusion cyst Right kidney stone Nephrolithiasis Right shoulder strain Transaminitis GERD (gastroesophageal reflux disease) Anxiety Migraines Fatty liver Elevated cholesterol Asthma Vitamin D deficiency HLD (hyperlipidemia) HTN (hypertension) Diabetes mellitus Surgical History Skin lesion Sebaceous cyst of breast Flank pain Scar contracture History of surgical removal of skin lesion (08/27/22) H/O lithotripsy History of local excision of skin lesion History of hysterectomy (~2011) Family History Father Heart disease Mother No problems noted. Social History Are you a primary campground caretaker to a significant other at home: No Do you presently have visiting nurse or other home services: No Alcohol intake: never Patient Tobacco Use Status: Never used Tobacco Second Hand Smoke Exposure: No Physical Exam Vital Signs: Last Vital Signs Pulse 70 01/01/25 13:03 BP 110/68 01/01/25 13:03 Pulse Ox 98 01/01/25 13:03 Oxygen Delivery Method Room Air 01/01/25 13:03 BMI result Body Mass Index 35.6 Const Orientation/consciousness: patient oriented x3 Neck Neck: Yes no lymphadenopathy Thyroid: Thyroid normal Carotids: no bruits Resp Auscultation: clear to auscultation bilaterally Cardio Rate: regular rate Rhythm: regular rhythm Heart sounds: S1 normal heart sound present and S2 normal heart sound present Peripheral pulses: dorsalis pedis present Neuro General: patient oriented x3, gait normal and no focal motor deficits Extrem Other: Monofilament sensation intact bilaterally. Vibratory sensation intact bilaterally. Skin intact. General: Yes normal to inspection Results Reviewed Results Reviewed: Laboratory Last Values Glucose (Clinic) 101 mg/dL (60-115) 01/01/25 13:09 Laboratory Tests 02/07/24 09/25/24 12/25/24 14:09 13:22 15:00 Sodium 143 Potassium 3.6 Chloride 108 Carbon Dioxide 28 Anion Gap 11 L BUN 7 L Creatinine 0.69 Estim Creat Clear Calc 97.9 Estimated GFR > 60 Glucose (Clinic) AST 21 ALT 15 B-Natriuretic Peptide < 10 Triglycerides 109 Cholesterol 128 LDL Cholesterol, Calc 71 HDL Cholesterol 36 L Urine Creatinine 164.92 Urine Microalbumin 16.0 Microalb/Creat Ratio 9.7 01/01/25 13:09 Sodium Potassium Chloride Carbon Dioxide Anion Gap BUN Creatinine Estim Creat Clear Calc Estimated GFR Glucose (Clinic) 101 AST ALT B-Natriuretic Peptide Triglycerides Cholesterol LDL Cholesterol, Calc HDL Cholesterol Urine Creatinine Urine Microalbumin Microalb/Creat Ratio Assessment & Plan Assessment & Plan (1) Controlled type 2 diabetes mellitus: Code(s): E11.9 - Type 2 diabetes mellitus without complications Category: Medical Qualifiers: Diabetes mellitus extermination inspector insulin use: without extermination inspector use Diabetes mellitus complication status: without complication Qualified Code(s): E11.9 - Type 2 diabetes mellitus without complications Plan: We will discontinue Trulicity she is not tolerating this. Ozempic was ineffective and Victoza widely out of stock we will restart Vasiliy as she tolerated this well and did have great control of blood sugars. Continue with the metformin A1c ordered today for her to complete at the lab. We will follow up pending test results (2) HLD (hyperlipidemia): Code(s): E78.5 - Hyperlipidemia, unspecified Category: Medical Qualifiers: Hyperlipidemia type: unspecified Qualified Code(s): E78.5 - Hyperlipidemia, unspecified Plan: well-controlled. Continue current regimen (3) HTN (hypertension): Code(s): I10 - Essential (primary) hypertension Category: Medical Qualifiers: Hypertension type: unspecified Qualified Code(s): I10 - Essential (primary) hypertension Plan: WNL. Continue current regimen Orders: Orders Hemoglobin A1c Today E11.9 - Type 2 diabetes mellitus without complications, R73.01 - Impaired fasting glucose Medications: New tirzepatide (Mounjaro) for 4 weeks 2.5 mg (0.5 mL) subcut QWEEK 2 mL 3RF Changed From metformin ER 500 mg PO DAILY 90 tabs 3RF To metformin ER 500 mg PO QPM 90 tabs 3RF Discontinued tirzepatide (Mounjaro) Discontinued Reason: Doctor's Order 5 mg (0.5 mL) subcut QWEEK 2 mL 3RF Coding Level of Care Code Est Pt Level 4 (57502) Complex EM visit Add On G2211 Diagnoses Controlled type 2 diabetes mellitus without complication, without long-term current use of insulin E11.9 Diabetes mellitus [facility] insulin use: without extermination inspector use Diabetes mellitus complication status: without complication Hyperlipidemia, unspecified hyperlipidemia type E78.5 Hyperlipidemia type: unspecified Hypertension, unspecified type I10 Hypertension type: unspecified
[2025-01-01 13:03] VITALS: BP 110/68; PULSE 70; O2SAT 98; BMI 35.6
[2025-01-01 13:13] LABS: Glucose, Whole Blood 101 mg/dL (60-115)
--- OUTSIDE RECORDS SUMMARY | 2025-01-01 13:15 | XMS_ITS | Encounter Summary ---
Author Organization [employer] Address [address] [facility] [address] [place] [address] Care Team Providers Care Crm System Administrator Name Role Phone Radha Shah RUNNING RIGGER Primary Care Provider [phone] Colby Hirsch Unavailable Unavailable [facility] Primary Care Provider [phone] Reason for Visit * Reason Comments Med Refill Encounter Details Date Type Department Care Team (Late st Contact Info) Description 11/24/2023 Refill [facility] MEDICINE [address] [place] [address] Radha Shah FNP [address] [place] [address] Multiple joint pain Social History Tobacco Use [...] 2:00 PM EDT Clinical Support [facility] MEDICINE [address] [place] [address] Kira Bansal RN 01/24/2025 2:30 PM EDT Office Visit [facility] MEDICINE [address] [place] [address] [place] F[place] [address] [place] [address] documented as of this encounter Visit Diagnoses Diagnosis Multiple joint pain Pain in joint, multiple sites documented in this encounter Additional Health Concerns Assessment Noted Time PHQ-9 Depression Total Score: 8 09/02/19 24 11:12 AM EST documented as of this encounter Care Teams Crm System Administrator Relationship Specialty Start Date End Date Radha Shah FNP [address] [place] [phone] PCP - General Family Medicine 04/21/23 04/25/24 [place] whipple FNP [address] [place] [id number] PCP - General Family Medicine 04/26/24 Colby Hirsch FNP [address] [place] [address] Nurse Practitioner Family Medicine 07/13/23 Candice Ugarte Regulator InspectorAirplane Designer 12/27/23 documented as of this encounter
--- OUTSIDE RECORDS SUMMARY | 2025-01-01 13:15 | XMS_ITS | Encounter Summary ---
Author Organization [employer] Address [address] [facility] [address]t [place] [address] Care Team Providers Care Highway Painter Helper Name Role Phone Colby Hirsch DOUGH PANNER Unavailable Unavailable [facility] Primary Care Provider [phone] Reason for Visit * Reason Onset Date Comments Med Refill 2024 Encounter Details Date Type Department Care Team ([facility] st Contact Info) Description 2024 Telephone [facility] MEDICINE [address] [place] [address] [facility] [address] [place] [address] Med Refill Social History Tobacco Use Types [...] 50 MG tablet To be sent to: [facility] documented in this encounter Plan of Treatment Upcoming Encounters Date Type Department Care Team (Late st Contact Info) Description 01/24/2025 2:00 PM EDT Clinical Support [facility] MEDICINE [address] [place] [phone] Kira Bansal RN 01/24/2025 2:30 PM EDT Office Visit [facility] MEDICINE [address] [place] [address] [place] F[place] [address] [place] [address] documented as of this encounter Visit Diagnoses Not on filedocumented in this encounter Additional Health Concerns Assessment Noted Time PHQ-9 Depression Total Score: 0 10/24/19 25 1:15 PM EST documented as of this encounter Care Teams Highway Painter Helper Relationship Specialty Start Date End Date Yecenia Frias FNP [address] [place] [address] PCP - General Family Medicine 04/26/24 Colby Hirsch FNP Nurse Practitioner Family Medicine 07/13/23 Candice Ugarte Tie CutterEntry Level Software Engineer 12/27/23 documented as of this encounter
--- OUTSIDE RECORDS SUMMARY | 2025-01-01 13:15 | XMS_ITS | Encounter Summary ---
Author Organization [employer] Address [address] [place] [address] Care Team Providers Care Manager Marketing Communications Name Role Phone Radha Shah HULL BUILDER Primary Care Provider [phone] Colby Hirsch Unavailable Unavailable [facility] Primary Care Provider [phone] Encounter Details Date Type Department Care Team (Late st Contact Info) Description 10/29/2023 Orders Only [facility] MED & PEDS [address] [place] [address] Radha Shah FNP [address] [place] [address] Social History Tobacco Use Types Packs/Day Years [...] 01/24/2025 2:00 PM EDT Clinical Support [address] [address] Kira Bansal RN 01/24/2025 2:30 PM EDT Office Visit [address] [address] Yecenia Frias FNP [address] [place] [address] documented as of this encounter Visit Diagnoses Not on filedocumented in this encounter Additional Health Concerns Assessment Noted Time PHQ-9 Depression Total Score: 8 09/02/19 24 11:12 AM EST documented as of this encounter Care Teams Manager Marketing Communications Relationship Specialty Start Date End Date Radha Shah FNP [address] [place] [id number] PCP - General Family Medicine 04/21/23 04/25/24 Yecenia Frias FNP [address] [place] [id number] PCP - General Family Medicine 04/26/24 Colby Hirsch FNP [address] [place] [address] Nurse Practitioner Family Medicine 07/13/23 Candice Ugarte Life AgentPediatric Surgeon 12/27/23 documented as of this encounter
--- OUTSIDE RECORDS SUMMARY | 2025-01-01 13:15 | XMS_ITS | Clinical Summary ---
Author Organization [employer] Address [address] [place] [address] Care Team Providers Care Magazine Publisher Name Role Phone Colby Hirsch HONEY EXTRACTOR Unavailable Unavailable [facility] HONEY EXTRACTOR Primary Care Provider [phone] Allergies Active Allergy Reactions Criticality Noted Date [...] MG tabletIndications :Major depression with psychotic features ([facility]) Take 1 tablet (7.5 mg) by mouth at bedtime. 30 tablet 1 024 Active risperiDONE (RisperDAL) 2 MG tabletIndications :Major Depressive Disorder Take 1 tablet (2 mg) by mouth at bedtime. 30 tablet 1 024 Active Blood Glucose Monitoring Suppl (Ariane SystemsStyle Lite) w/Device kitIndications:Ty pe 2 diabetes mellitus without complication, with long-term current use of insulin ([facility]) 1 Device 2 times daily. 1 kit [...] capsule 3 025 Active oxymetazoline (Afrin Nasal Mineral) 0.05 % nasal sprayIndications: Viral upper respiratory illness Administer 2 sprays into each nostril every 12 (twelve) hours if needed for congestion for up to 2 days. Do not use for more than 3 days. 30 mL 025 Active Dulaglutide (Trulicity) 0.75 MG/0.5ML solution auto-injectorIndi cations:Type 2 diabetes mellitus without complication, with long-term current use of insulin ([facility]) Inject 0.75 mg under the skin 1 [...] Active beta carotene (vitamin A) 3 MG (08554 UT) capsule TAKE 1 CAPSULE BY MOUTH [...] Discontinued beta carotene (vitamin A) 3 MG (27310 UT) capsule TAKE 1 CAPSULE BY MOUTH EVERY MORNING 90 capsule 1 024 2024 Discontinued(R eorder (will not trigger notification to Pharmacy)) ibuprofen 600 MG tabletIndications :Viral upper respiratory illness Take 1 tablet (600 mg) by mouth every 6 (six) hours if needed for mild pain. 30 tablet 1 025 2024 Discontinued traMADol (Ultram) [...] support system PLAN: 1. Follow up with [facility]: Not recommended for follow-up 2. [...] mechanism to manage sxs, provided her with [facility] Crisis number for after hrs support. [...] skills discussed in session. She will contact [facility] crisis number as needed. Patient with [...] in services PLAN: 1. Follow up with [facility]: Not recommended for follow-up 2. [...] in person with a female clinician in [place]. At this time Sacha Rodriguez meets criteria for Visit Diagnoses: Anxiety Disorder Unspecified Patient ready to address current needs Yes Strengths include coping mechanisms of walking and distracting self PLAN: 1. Follow up with [facility]: Not recommended for follow-up 2. [...] -Peruvian individuals, multiply the result ? by .Chronic Kidney Disease: ??Estimated GFR < 60 mL/min/1.40m5Ttegqb Kidney Disease: ??Estimated GFR < 15 mL/min/1.73m2 [...] -Peruvian individuals, multiply the result ? by .Chronic Kidney Disease: ??Estimated GFR < 60 mL/min/1.48a0Gdvqbt Kidney Disease: ??Estimated GFR < 15 mL/min/1.73m2 [...] retiring patient is now referred to new [facility] psychiatric provider. Pt is aware that appts will be via televisit and that provider will not be an [facility] employee. She gives permission to share PHI. [...] night at bedtime (not prn). Based on [facility] notes, she appears to be taking Clonazepam [...] organization. Date Type Department Care Team Description 01/01/2025 Orders Only GENERIC EXTERNAL DATA DEPARTMENT Provider, Generic External Data 01/01/2025 Telephone [facility] MEDICINE [address] [place] [address] [place] F[place] Med Refill 12/25/2024 Orders Only GENERIC EXTERNAL DATA DEPARTMENT Provider, Generic External Data 12/25/2024 Telephone [facility] MEDICINE [address], [place] [phone] Eloisa Aragon NP 12/22/2024 1:20 PM EDT Office Visit [facility] WALK-IN CENTER [address], [place] [phone] Bone pain (Primary Dx) 12/07/2024 11:20 AM EDT Office Visit [facility] WALK-IN CENTER [address] [place] [address] Quin Victoria MD Left wrist pain (Primary Dx); Injury of left wrist, initial encounter 12/07/2024 Travel 2024 Telephone [facility] MEDICINE [address] [facility] [place] [address] Yecenia Frias, HONEY EXTRACTOR Med Refill 2024 Refill [facility] MEDICINE [address] [place] [address] Yecenia Frias, HONEY EXTRACTOR 12/04/2024 Refill [facility] MEDICINE [address] [place] [address] Yecenia Frias FNP Viral upper respiratory illness; Multiple joint pain 11/28/2024 Refill [facility] MEDICINE [address] [place] [address] Yecenia Frias, JACINTO Arthralgia, unspecified joint 11/27/2024 Telephone [facility] MEDICINE [address] [facility] [facility] [place] [address] Yecenia Frias HONEY EXTRACTOR Nurse Triage 11/14/2024 Patient Outreach [address] [place] [address] Yecenia Frias, HONEY EXTRACTOR Care Coordination ([facility]3 -[facility] Kelly Obrien telephone call outreach) 11/14/2024 Patient Outreach [address] [place] [address] Yecenia Frias, HONEY EXTRACTOR Care Coordination 11/06/2024 Refill [facility] MEDICINE [address] [place] [address] Yecenia Frias FNP Multiple joint pain 11/03/2024 Population Health Risk Score [facility] Department [address] [place] [phone] Provider, Population Health Generic 10/31/2024 Patient Outreach [facility] MEDICINE [address] [place] [address] Yecenia Frias HONEY EXTRACTOR Care Coordination (C3 CM-[facility] Kelly Obrien telephone call outreach) 10/31/2024 Refill [facility] MEDICINE [address] [place] [address] Yecenia Frias FNP Type 2 diabetes mellitus without complication, with long-term current use of insulin (CMS/HCC) 10/27/2024 Telephone [facility] MEDICINE [address] [place] [phone] [facility] Results 10/27/2024 Orders Only [facility] WALK-IN CENTER [address] [place] [address] [facility] Other polyneuropathy (Primary Dx) 10/24/2024 1:00 PM EST Clinical Support [address] [address] Kira Bansal RN Chronic midline back pain, unspecified back location (Primary Dx) 10/24/[address] [address] Kira Bansal RN Chronic midline back pain, unspecified back location (Primary Dx) 10/24/2024 Travel 10/23/2024 1:00 PM EST Office Visit [address] [address] [facility] Type 2 diabetes mellitus without complication, with long-term current use of insulin (CMS/HCC) (Primary Dx); Other polyneuropathy; Dietary counseling; Exercise counseling; Encounter for immunization 10/23/2024 Travel 10/23/2024 Outside Procedure [facility] OPTOMETRY [address] [place] [phone] Glenn, Akila, OD Presbyopia of both eyes (Primary Dx) 10/20/2024 9:45 AM EST Office Visit [facility] OPTOMETRY [address] [place] [phone] Parveen Elizabethn, OD Regular astigmatism of both eyes (Primary Dx) 10/20/2024 Travel 10/13/2024 Patient Outreach [address] [address] [facility] Care Coordination (C3 -[facility] telephone call outreach ) 10/12/2024 2:00 PM EST Office Visit [facility] ADULT DENTAL [address] [place] [address] [phone] Phillip Borrego, MYA 10/12/2024 Telephone [facility] [address] [place] [phone] Bethany Bond MD Results 10/12/2024 Orders Only [facility] MEDICINE [address] [place] [phone] Bethany Bond MD Urinary tract infection symptoms (Primary Dx) 10/11/2024 Patient Outreach [facility] MEDICINE [address] [place] [address] [phone] Yecenia Frias FNP Pre-visit Planning ((Unable to reach for PVP screening, LVM)) 10/11/2024 Refill [facility] MEDICINE [address] [place] [address] [phone] Yecenia Frias FNP Arthralgia, unspecified joint 10/10/2024 2:00 PM EST Office Visit [facility] WALK-IN CENTER [address] [place] [address] [phone] Bethany Bond MD Urinary tract infection symptoms (Primary Dx); Diarrhea, unspecified type from Last 3 Months Immunizations Name Administration [...] 2:00 PM EDT Clinical Support [facility] MEDICINE [address] [place] [phone] Kira Bansal RN 01/24/2025 2:30 PM EDT Office Visit [facility] MEDICINE [address] [place] [phone] [place], Yecenia, HONEY EXTRACTOR [address] [place] [address] Health Maintenance Due Date Last Done Comments [...] Procedure Name Priority Date/Time Associated Diagnosis Comments GLUCOSE, WHOLE BLOOD Routine 01/01/2025 1:09 PM EDT SARS COV2/INFLUENZA A/B AND RSV RNA QL NAAT Routine 12/25/2024 7:51 PM EDT COMPREHENSIVE METABOLIC PANEL Routine 12/22/2024 2:10 PM [...] complication, with long-term current use of insulin ([facility]) POCT GLYCATED HEMOGLOBIN, TOTAL Routine 10/23/2024 1:15 PM EST Type 2 diabetes mellitus without complication, with long-term current use of insulin ([facility]) DENTURE ADJUSTMENT Routine 10/12/2024 2: 00 PM EST CULTURE, URINE, ROUTINE Routine 10/10/2024 2:35 PM EST Urinary tract infection symptoms POCT URINALYSIS DIPSTICK Routine 10/10/2024 2:18 PM EST Urinary tract infection symptoms LIPID PANEL, STANDARD Routine 09/25/2024 1:22 PM [...] Recently Relevant to Health Maintenance Results * Glucose, Whole Blood (01/01/2025 1:09 PM EDT) Glucose, Whole Blood 101 60 - 115 mg/dL [facility] Comment:METER #: [id number] Testing performed in the Endocrinology Department [address] , [address], [facility]. 01/01/2025 1:09 PM EDT 01/01/2025 1:12 PM EDT us Generic External Data Provider LAB BLOOD ORDERAB LES Final Result [facility] [address] [place] [phone] * SARS-CoV-2 RNA, Influenza A/B, and RSV RNA, Ql NAAT (12/25/2024 7:51 PM EDT) Influenza A PCR NEGATIVE Negative [facility] Influenza B PCR NEGATIVE Negative [facility] Resp Syncy Virus RNA Qual PCR NEGATIVE Negative [facility] SARS COV2 PCR NEGATIVE Negative [facility] Comment:All test results mus t be correlated with clinical findings.Negative results do not preclude SARS-CoV2, influenza Avirus, influenza B virus and/or RSV infectionand should not be used as the sole basis for treatment orother patient management decisions. Negative results must becombined with clinical observations, patient history, andepidemiological information.This test has not been evaluated for monitoring treatment ofinfection.This test has been authorized by the FDA under an EmergencyUse Authorization (EUA) for use by authorized laboratories.Testing performed on the [employer]way GeneXpert utilizingreal-time RT-PCR.All SARS CoV2 and positive influenza A/B results arereported to [facility]. 12/25/2024 7:51 PM EDT 12/25/2024 7:54 PM EDT us Generic External Data Provider LAB MICROBIOLOGY - GENERAL ORDERABLES Final Result [facility] [address] [place] [phone] * (ABNORMAL) Vitamin D, 25-Hydroxy, Total, Immunoassay (12/22/2024 2:10 PM EDT) Vitamin D 25-OH Total 29.6(L) >30 ng/mL [facility] Comment: Health Based Reference Values*< 20 ??ng/mL ??Tbfenedbt19-01 ng/mL ??Insufficient> 30 ??ng/mL ??Sufficient*Hector GALE. N [...] 12/22/2024 4:04 PM EDT us Eloisa Aragon MANAGER PRODUCT DESIGN LAB BLOOD ORDERABLES Final Resu lt [facility] [address] [place] [phone] * (ABNORMAL) CBC auto differential (12/22/2024 2:10 PM EDT) White Blood Count 9.0 4.8 - 10.8 X10*3/uL [facility] Red Blood Count 4.52 4.20 - 5.50 X10*6/uL [facility] Hemoglobin 12.1 12.0 - 16.0 g/dl [facility] Hematocrit 37.6 37.0 - 47.0 % [facility] Mean Corpuscular Volume 83.2 80.0 - 98.0 fL [facility] Mean Corpuscular Hemoglobin 26.8(L) 27.0 - 33.0 pg [facility] Mean Corpuscular HGB Conc 32.2 31.0 - 35.0 g/dl [facility] Red Cell Distribution Width 13.6 11.0 - 16.0 % [facility] Platelet Count 265 160 - 400 X10*3/uL [facility] Mean Platelet Volume 10.4 9.4 - 12.3 fL [facility] Neutrophils Percent Auto 62.8 45 - 73 % [facility] Imm Gran Pct Auto 0.2 0.0 - 0.4 % [facility] Lymphocytes Percent Auto 29.1 20 - 40 % [facility] Monocytes Percent Auto 6.0 2 - 11 % [facility] Eosinophils Percent Auto 1.7 0 - 4 % [facility] Basophils Percent Auto 0.2 0 - 2 % [facility] NRBC Pct Auto 0.0 0.0 - 0.2 /100WBC [facility] Neutrophils Absolute Auto 5.6 2.0 - 8.3 x10*3/uL [facility] Imm Gran Abs Auto 0.02 0.00 - 0.03 X10*3/uL [facility] Lymphocytes Absolute Auto 2.6 1.2 - 4.9 X10*3/uL [facility] Monocytes Absolute Auto 0.5 0.1 - 1.2 X10*3/uL [facility] Eosinophils Absolute Auto 0.2 0.0 - 0.4 X10*3/uL [facility] Basophils Absolute Auto 0.0 0.0 - 0.2 X10*3/uL [facility] NRBC Abs Auto 0.000 0.0 - 0.012 X10*3/uL [facility] Blood Venous blood specimen / Unknown 12/22/2024 2:10 PM EDT 12/22/2024 4:04 PM EDT Eloisa Aragon MANAGER PRODUCT DESIGN LAB BLOOD ORDERABLES Final Resu lt [facility] [address] [place] [phone] * Comprehensive Metabolic Panel (12/22/2024 2:10 PM EDT) Sodium 142 135 - 145 mmol/L [facility] Potassium 3.5 3.3 - 5.1 mmol/L [facility] Chloride 107 96 - 108 mmol/L [facility] Carbon Dioxide 25 22 - 29 mmol/L [facility] Anion Gap 14 12 - 20 [facility] Urea Nitrogen (BUN) 10 9 - 16 mg/dL [facility] Creatinine, Serum 0.63 0.5 - 1.4 mg/dL [facility] Estimated Glomerular Filt Rate >60 [facility] Comment:Chronic Kidney Disea se: Estimated GFR < 60 mL/min/1.14w8Izgzjn Kidney Disease: Estimated GFR < 15 mL/min/1.73m2 Glucose 115 60 - 115 mg/dL [facility] Calcium 9.8 8.4 - 10.2 mg/dL [facility] Bilirubin, Total 0.4 0.0 - 1.0 mg/dL [facility] Aspartate Amino Transferase 26 5 - 31 U/L [facility] Alanine Aminotransferase 13 0 - 31 U/L [facility] Total Protein 7.5 6.5 - 8.0 g/dL [facility] Albumin Level 4.2 3.5 - 5.0 g/dL [facility] Alkaline Phosphatase 114 39 - 117 U/L [facility] Blood Venous blood specimen / Unknown 12/22/2024 2:10 PM EDT 12/22/2024 4:04 PM EDT Eloisa Aragon MANAGER PRODUCT DESIGN LAB BLOOD ORDERABLES Final Resu lt [facility] [address] [place] [phone] * XR Wrist 3+ Views Left (12/07/2024 11:57 AM EDT) Anatomical Region Laterality Modality Upper Extremities, Wrist Left Radiogr aphic Imaging 12/07/2024 11:5 7 AM EDT Narrative 12/07/2024 2:08 PM EDT ?[facility] ?[address] ?[place] [address] ?XRay Report ? Signed ? Patient: Sacha Contreras ?MR#: [id number] ?? [id number] ? : 1980 ?Acct:[id number] ? Age/Sex: 44 / F ?ADM Date: 04/17/25 ? Loc: HO.HHCX ? Attending Dr: Quin Victoria MD ? Ordering Physician: Quin Victoria MD ?? Date of Service: 12/07/24 ?? Procedure(s): XR wrist LT min 3V ?? Accession Number(s): [id number] ? cc: Quin Victoria MD ? EXAMINATION: [...] DD/ 1157 ? TD/TT: 12/07/24 1200 ? Credit Reference Clerk: ? Procedure Note Sima, Image - 12/07/2024 [place] [address] XRay Report Signed Patient: Unique ContrerassMR#: [id number] : 1980Acct:[id number] Age/Sex: 44 / FADM Date: 12/07/24 Loc: HO.HHCX Attending Dr: Quin Victoria MD Ordering Physician: Quin Victoria MD Date of Service: 12/07/24 Procedure(s): XR wrist LT min 3V Accession Number(s): [id number] cc: Quin Victoria MD EXAMINATION: XR WRIST, [...] 12/07/24 1405 DD/ 1157 TD/TT: 12/07/24 1200 Credit Reference Clerk: Quin Victoria MD IMG XR PROCEDURES Final Re sult * POCT CASSI-14 Urine Drug Screen (10/24/2024 1:02 PM EST) Urine Urine specimen obtained by clean catch procedure / Unknown 10/24/2024 1:02 PM EST Narrative Kira Bansal RN - 10/24/2024 1:02 PM EST UTOX cup Lot#[id number] Exp. 04/11/26 Internal Pass Control UTOX Negative for all substances. Cheryl Galan DO POINT OF CARE TEST ENTER/SANCHO T ORDERABLES Final Result * Vitamin B12/Folate, Serum Panel (10/23/2024 2:05 PM EST) Vitamin B12 273 200 - 900 pg/mL [facility] Comment:NORMAL 200-900 PG/ML INDETERMINATE 160-199 PG/ML DEFICIENT < 160 PG/ML Folate 11.9 > or = 4.0 ng/mL [facility] Comment:Reference Values:> o r = 4.0 ng/mL< 4.0 ng/mL suggests folate deficiency Methotrexate, aminopterin and folinic acid(leucovorin) are chemotherapeutic agents whose molecularstructures are similar to folate; therefore, the Architectfolate assay cannot be used for patients using these drugs. Blood Venous blood specimen / Unknown 10/23/2024 2:05 PM EST 10/23/2024 4:20 PM EST [facility] HONEY EXTRACTOR LAB BLOOD ORDERABLES Final Re sult [facility] [address] [place] [address] [phone] * TSH W/Reflex to FT4 (10/23/2024 2:05 PM EST) TSH reflex Free T4 1.74 0.32 - 4.0 uIU/mL [facility] Blood Venous blood specimen / Unknown 10/23/2024 2:05 PM EST 10/23/2024 4:20 PM EST [facility] LAB BLOOD ORDERABLES Final Re sult Performing Organization Address City/[facility]/ZIP Co de Phone Number [facility] [address] [place] [phone] * HIV-1/2 Antigen and Antibodies, Fourth Generation, with Reflexes (10/23/2024 2:05 PM EST) HIV AB/AG Nonreactive Nonreactive [facility] Comment:HIV-1 p24 Ag and/or HIV-1/HIV-2 Ab not detected.A test result that is nonreactive does not exclude thepossibility of exposure to or infection with HIV-1 and/orHIV-2. Nonreactive results in this assay for individualswith prior exposure to HIV-1 and/or HIV-2 may be due toantigen and antibody levels that are below the limit ofdetection of this assay.The [place] HIV Ag/Ab Combo assay result andsupplemental assay results should be interpreted inconjunction with the patient's clinical presentation,history and other laboratory results. If the results areinconsistent with clinical evidence, additional testing issuggested to confirm the result. Blood Venous blood specimen / Unknown 10/23/2024 2:05 PM EST 10/23/2024 4:20 PM EST [facility] LAB BLOOD ORDERABLES Final Re sult Performing Organization Address City/[facility]/ZIP Co de Phone Number [facility] [address] [place] [phone] * Ferritin (10/23/2024 2:05 PM EST) Ferritin 126 10 - 250 ng/mL [facility] Blood Venous blood specimen / Unknown 10/23/2024 2:05 PM EST 10/23/2024 4:20 PM EST [facility] LAB BLOOD ORDERABLES Final Re sult Performing Organization Address [facility]/State/ZIP Co de Phone Number [facility] [address] [place] [phone] * POCT Glucose (10/23/2024 1:17 PM EST) Glucose Blood, POC 101 60 - 200 mg/dL Blood Capillary blood specimen / Unknown 10/23/2024 1:17 PM EST [facility] POINT OF CARE TEST ENTER/EDIT ORDERABLES Final Result * POCT HGB A1C (10/23/2024 1:15 PM EST) Hemoglobin A1C 5.7 4.0 - 6.0 % Blood 10/23/2024 1:15 PM EST [facility] POINT OF CARE TEST ENTER/EDIT ORDERABLES Final Result * Culture, Urine, Routine (10/10/2024 2:35 PM EST) Urine Urine specimen obtained by clean catch procedure / Unknown 10/10/2024 2:35 PM EST 10/10/2024 4:14 PM EST Comment:CC Narrative [facility] - 10/12/2024 7:44 AM EST Escherichia coli Quant > 100,000 cfu/mL Escherichia coli: Ampicillin >=32(R) Escherichia coli: Cefazolin (Urine) 8(S) Escherichia coli: Cefepime <=0.12(S) Escherichia coli: Ceftriaxone <=0.25(S) Escherichia coli: Ciprofloxacin <=0.06(S) Escherichia coli: Gentamicin >=16(R) Escherichia coli: Nitrofurantoin <=16(S) Escherichia coli: Trimethoprim/Sulfamethoxazole >=320(R) Specimen Source: Urine clean catch Bethany Ritchie MD LAB MICROBIOLOGY - GE NERAL ORDERABLES Final Result [facility] [address] [place], [place] [phone] * (ABNORMAL) POCT Urinalysis (10/10/2024 2:18 [...] TEST EN TER/EDIT ORDERABLES Final Result * (ABNORMAL) Lipid Panel, Standard (09/25/2024 1:22 PM EST) Triglycerides 109 <150 mg/dL [facility] Comment:Desirable Triglyceri de: less than 150 mg/dLBorderline High Triglyceride 150-199 mg/dLHigh Triglyceride: 200-499 mg/dLVery High Triglyceride: greater than or equal to 5OO mg/dL Cholesterol 128 <200 mg/dL [facility] Comment:Desirable Cholestero l: less than 200 mg/dLBorderline High Cholesterol: 200-239 mg/dLHigh Cholesterol: greater than 239 mg/dL LDL Cholesterol Calculated 71 <100 mg/dL [facility] Comment:Desirable LDL: less than 100 mg/dLNear Optimal/Above Optimal LDL: 110- 129 mg/dLBorderline High LDL: 130-159 mg/dLHigh LDL: 160-189 mg/dLVery High LDL: greater than or equal to 190 mg/dL HDL Cholesterol 36(L) >40 mg/dL [facility] Comment:Desirable HDL: great er than 40 mg/dL Note: This HDL assay may give artificially low results in patients with liver disease. 09/25/2024 1:22 PM EST 09/25/2024 4:00 PM EST Generic External Data Provider LAB BLOOD ORDERAB LES Final Result Performing Organization Address [facility] de Phone Number [facility] [address] [place] [phone] * Albumin, Random Urine W/Creatinine (02/07/2024 2:09 PM EDT) Creatinine, Urine 164.92 mg/dL [facility] Microalbumin Urine 16.0 mg/L [facility] Microalbum Creatinine Ratio Ur 9.7 <30 ug/mg cr [facility] Comment:Albumin/Creatinine R atio Reference Ranges: Normal: < 30 ug/mg creatinine Microalbuminuria: 30 - 300 ug/mg creatinineClinical Albuminuria: > 300 ug/mg creatinine Urine (Urine, Random) 02/07/2024 2:09 PM EDT 02/07/2024 3:55 PM EDT Radha Shah HONEY EXTRACTOR LAB URINE ORDERABLES Final Resu lt Performing Organization Address [facility] de Phone Number [facility] [address] [place] [phone] * BI Mammogram Screening Tomosynthesis Bilateral (11/16/2023 1:25 PM EDT) Anatomical Region Laterality Modality Breast Bilateral Mammography 11/16/2023 1:25 PM EDT Narrative 12/02/2023 6:15 AM EDT ? [facility] [place] [address] ?[place] [address] ? Mammography Report ? Signed ? Patient: Roach Jennifer,Kayarybenigno ?MR#: [id number] ?? [id number] ? : 1980 ?Acct:[id number] ? Age/Sex: 42 / F ?ADM Date: 03/26/24 ? Loc: HO.MAMMO ? Attending Dr: Radha Shah MANAGER PRODUCT DESIGN ? Ordering Physician: Radha Shah MANAGER PRODUCT DESIGN ?Results: 1Negativ ?? e ? Date of Service: 11/16/23 ?Follow Up: 1 Year From Orig ?? inal Mammogram ? Procedure(s): MM tomosynthesis screening BI ?? Accession Number(s): [id number] ? cc: Radha Shah MANAGER PRODUCT DESIGN ? EXAMINATION: ?? MM SCREENING DIGITAL BREAST [...] Virginia Oneal MD in OV> ? 12/02/23 06 ? DD/ 1325 ? TD/TT: ? Credit Reference Clerk: ? Procedure Note Donotuseinterpreter, Image - 12/02/2023 Ciaran [facility] [address] [place] [address] Mammography Report Signed Patient: Xavier ContrerasR#: [id number] : 1980Acct:[id number] Age/Sex: 42 / FADM Date: 11/16/23 Loc: HO.MAMMO Attending Dr: Radha Shah NP Ordering Physician: Radha Shah NPResults: 1Negativ e Date of Service: 11/16/23Follow Up: 1 Year From Orig ina Mammogram Procedure(s): MM tomosynthesis screening BI Accession Number(s): [id number] cc: Radha Shah NP EXAMINATION: MM SCREENING [...] in OV> 12/02/23 0611 DD/ 1325 TD/TT: Credit Reference Clerk: Radhamargie Shah HONEY EXTRACTOR IMG BI PROCEDURES Final Result * (ABNORMAL) Hepatitis Panel, General (02/22/2023 1:46 PM EDT) Hepatitis A Antibody Total REACTIVE( A) NON-REACT TAWNYA [facility] [place] [facility] Comment: For additional information, please refer to http://[employer]/faq/GKP573 (This link is being provided for informational/ educational purposes only.) Hepatitis B Surface Antibody QL REACTIVE( A) NON-REACT TAWNYA [facility] [place] [facility] Hepatitis B Surface Ag NON-REACT TAWNYA NON-REACT TAWNYA [facility] [place] [facility] Comment: For additional information, please refer to http://[employer]/faq/TZF950 (This link is being provided for informational/ educational purposes only.) Hepatitis B Core Antibody Total NON-REACT TAWNYA NON-REACT TAWNYA [facility] [place] [facility] Comment: For additional information, please refer to http://[employer]/faq/GIZ203 (This link is being provided for informational/ educational purposes only.) Hepatitis C Antibody NON-REACT TAWNYA NON-REACT TAWNYA [facility] [place] [facility] Comment: HCV antibody was non-reactive. There is no laboratory evidence of HCV infection. In most cases, no further action is required. However, if recent HCV exposure is suspected, a test for HCV RNA (test code 50340) is suggested. For additional information please refer to http://[employer]/faq/XYA03n9 (This link is being provided for informational/ educational purposes only.) 02/22/2023 1:46 PM EDT 02/22/2023 1:46 PM EDT Narrative [facility] - 02/26/2023 7:51 PM EDT FASTING:NO FASTING: NO Marc [facility] BLOOD ORDERABLES Final Res ult [facility] [address], [place] [address] [facility] [address] [place] [phone] from Last 3 Months or Most Recently Relevant to Health Maintenance Insurance [facility] C3 DENTAL-[facility] MEDICAID STAND ADULT Care Teams Magazine Publisher Relationship Specialty Start Date End Date Yecenia Frias FNP [address] [place] [address] PCP - General Family Medicine 04/26/24 Colby Hirsch FNP Nurse Practitioner Family Medicine 07/13/23 Candice Ugarte Manager Home ImprovementWeb Feeder 12/27/23
--- OUTSIDE RECORDS SUMMARY | 2025-01-01 13:15 | XMS_ITS | Encounter Summary ---
Author Organization [employer] Address [address] [facility] 7t [place] [address] Care Team Providers Care Internal Communications Specialist Name Role Phone Colby Hirsch GAMBLING COUNSELLOR Unavailable Unavailable [facility] Primary Care Provider [phone] Reason for Visit * Reason Onset Date Comments Med Refill 01/01/2025 Encounter Details Date Type Department Care Team ([facility] st Contact Info) Description 01/01/2025 Telephone [facility] [address] [place] [address] [facility] [address] [place] [address] Med Refill Social History Tobacco Use Types [...] encounter Miscellaneous Notes * Telephone Encounter - Eduardo Gonsalez - 01/01/2025 12:35 PM EDT TC from pt requesting medication refill. Medications needing refill : traMADol (Ultram) 50 MG tablet To be sent to: [facility] pharmacy documented in this encounter Plan of Treatment Upcoming Encounters Date Type Department Care Team (Late st Contact Info) Description 01/24/2025 2:00 PM EDT Clinical Support [facility] [address] [place] [address] Kira Bansal RN 01/24/2025 2:30 PM EDT Office Visit [facility] [address] [place] [address] Yecenia Frias FNP [address] [place] [address] documented as of this encounter Visit Diagnoses Not on filedocumented in this encounter Additional Health Concerns Assessment Noted Time PHQ-9 Depression Total Score: 0 10/24/19 25 1:15 PM EST documented as of this encounter Care Teams Internal Communications Specialist Relationship Specialty Start Date End Date Yecenia Frias FNP [address] [place] [address] PCP - General Family Medicine 04/26/24 Colby Hirsch FNP Nurse Practitioner Family Medicine 07/13/23 Candice Ugarte Medical Scientific LiaisonElevator Mechanic 12/27/23 documented as of this encounter
--- OUTSIDE RECORDS SUMMARY | 2025-01-01 13:15 | XMS_ITS | Patient Health Record ---
Author Organization [facility] Address [address] [place] [address] Care Team Providers Care Aged Or Disabled Care Worker Name Role Phone Radha Rodriguez Primary Care Provider Jaylan Clancy Unavailable [phone] Allergies Allergen (clinical drug ingredient) Drug/Non Drug [...] Referring Provider Last Name Pablo Referred Organization [facility] Referred Provider Jaylan Neal Referred Address [address] [facility],[place], [place],[address], Referred Provider Specialty Gastroentero logy General Notes Please see if a [facility] referral is on file or needed for office visit with Dr. Neal on 06-20-2024. [facility] Asha smith Dawn 05/09/2024 07:44:46 AM EDT > eligible, needs referrral...Requested from [facility] Referral Priority Routine Medications Medication [...] DAILY Oral for 30 Active Vitamin A 86282 UNIT TAKE 1 CAPSULE BY M OUTH [...] Problem Status W/U Status Risk Notes Problem 92852243 Epigastric abdom inal pain (R10.13) Active confirmed Problem 687324777 Irritable bowel syndrome with diarrhea (K58.0) Active confirmed Problem Elevated liver function tests (R79.89) Active confirmed Problem 308448051 Fatty liver (K76.0) Active confirmed Problem 543356356 Gastroesophageal reflux disease, esophagitis presence not specified (K21.9) Active confirmed Problem 641119859 Abdominal pain, right upper quadrant (R10.11) Active confirmed Encounters Encounter Location Date Provider Diagnosis [facility] [address] [place] [address] 01/26/2024 Jaylan Neal [facility] [address] [place] [address] 06/16/2024 Jaylan Neal Plan Of Treatment Pending Test Test Name Order Date BUN 12/29/2019 CREATININE 12/29/2019 LIVER PROFILE 02/04/2020 LIVER PROFILE 04/09/2020 LIVER PROFILE 12/29/2019 CBC w DIFF 12/29/2019 PROTHROMBIN TIME (PT, INR) 12/29/2019 EGLWW-1-QAUZRYTXUAA (A1A) 12/29/2019 CAROTENE 12/29/2019 CERULOPLASMIN 12/29/2019 MITOCHONDRIAL [...] Start Date Coverage End Date MED[place] [address] [place] [id number] HARMAN LEUNG Self - patient is the insured Medical (General) History Medical History History ICD Code Asthma Denies DC,CVA,renal disease Migraines Anxiety, depression, bipolar disease NIDDM EGD [place] [address] Romero described as basically unremarkable--gastric biopsies were normal--no sig. HH GERD--EGD 11/2017 with pa wit h a small HH. Biopsies neg. for celiac disease and Hpylori Fatty liver-Neg. Hepatitis B and C studies in 2018, normal iron studies, negative abdominal ultrasound in [...]
--- OUTSIDE RECORDS SUMMARY | 2025-01-01 13:15 | XMS_ITS ---
Author Organization [facility] Address [address] [place] [address] Care Team Providers Care Wood Science Professor Name Role Phone Radha Rodriguez Primary Care Provider Jaylan Clancy Unavailable [phone] REASON FOR VISIT cancelled appt on 06/20/2024 Encounters Encounter Location Date Provider Diagnosis [facility] [address] [place] [address] 06/16/2024 Jaylan Neal Plan Of Treatment No Information Progress Notes * ABA LEUNGSDOB: 0 (43 yo F)Acc No.[id number]:06/16/2024 Patient:?HARMAN LEUNG :1980???Age:43 Y???Sex:Female Address:[address] [facility] [address] [facility] [address], [place], [address] * true * Date:? Generated for Hei chris/Lisa/eTransmitting on:?01/01/2025 01:15 PM EDT
--- OUTSIDE RECORDS SUMMARY | 2025-01-01 13:15 | XMS_ITS | Encounter Summary ---
Author Organization [employer] Address [address] [facility] [address] 7t [place] [address] Care Team Providers Care Rubber Heel And Sole Press Tender Name Role Phone Ruth Hoffmann WOOL BUYER Primary Care Provider Marc Nava Primary Care Provider Unavail able Radha Shah WOOL BUYER Primary Care Provider [phone] Colby HirschP Unavailable Unavailable [facility] WOOL BUYER Primary Care Provider [phone] Reason for Visit * Reason Onset Date Comments Appointment Request 10/01/2022 Encounter Details Date Type Department Care Team (Late st Contact Info) Description 10/01/2022 Telephone [facility] [address] [place] [address] Ruth Hoffmann FNP Appointment Request Social History [...] Description 01/24/2025 2:00 PM EDT Clinical Support [address] [address] Kira Bansal RN 01/24/2025 2:30 PM EDT Office Visit [address] [address] Yecenia Frias FNP [address] [place] [address] documented as of this encounter Visit Diagnoses Not on filedocumented in this encounter Care Teams Rubber Heel And Sole Press Tender Relationship Specialty Start Date End Date Ruth Hoffmann FNP PCP - General Family Medicine 07/21/22 10/21/22 Marc Nicolas AGNP PCP - General Family Medicine 10/22/22 04/20/23 Radha Shah FNP [address] [place] [address] PCP - General Family Medicine 04/21/23 04/25/24 Yecenia Frias FNP [address] [place] [address] PCP - General Family Medicine 04/26/24 Colby Hirsch FNP [address] [place] [address] Nurse Practitioner Family Medicine 07/13/23 Candice Ugarte Rural Health ConsultantInsurance Agency Owner 12/27/23 documented as of this encounter
--- OUTSIDE RECORDS SUMMARY | 2025-01-01 13:15 | XMS_ITS | Encounter Summary ---
Author Organization [employer] Address [address] [facility] [address] 7t [place] [address] Care Team Providers Care Operations And Maintenance Technician Name Role Phone Radha Shah GREEN FEED ATTENDANT Primary Care Provider [phone] Colby Hirsch Unavailable Unavailable [facility] GREEN FEED ATTENDANT Primary Care Provider [phone] Reason for Visit * Reason Onset Date Comments telephone call 10/29/2023 Encounter Details Date Type Department Care Team ([facility] st Contact Info) Description 10/29/2023 Refill [facility] [address] [place] [address] Radha Shah FNP [address] [place] [address] Multiple joint pain Social History Tobacco Use [...] does not remember the program name. A pizza hut team member from the program told her that if she still want to be in the program she needs a referral from PCP. Please call patient with any concern or questions. * Telephone Encounter - Celine Pate - 11/12/2023 9:46 AM EDT Patient walked in requesting a referral for a program. Patient does not remember the program name. A pizza hut team member from the program told her that if she still want to be in the program she needs a referral from PCP. Please call patient with any concern or questions. documented in this encounter Plan of Treatment Upcoming Encounters Date Type Department Care Team (Late st Contact Info) Description 01/24/2025 2:00 PM EDT Clinical Support [facility] [address] [place] [address] Kira Bansal RN 01/24/2025 2:30 PM EDT Office Visit [facility] [address] [place] [address] Yecenia Frias FNP [address] [place] [address] documented as of this encounter Visit Diagnoses Diagnosis Multiple joint pain Pain in joint, multiple sites documented in this encounter Additional Health Concerns Assessment Noted Time PHQ-9 Depression Total Score: 8 09/02/19 24 11:12 AM EST documented as of this encounter Care Teams Operations And Maintenance Technician Relationship Specialty Start Date End Date Radha Shah FNP [address] [place] [address] PCP - General Family Medicine 04/21/23 04/25/24 Yecenia Frias FNP [address] [place] [address] PCP - General Family Medicine 04/26/24 Colby Hirsch FNP [address] [place] [address] Nurse Practitioner Family Medicine 07/13/23 Candice Ugarte Coremaking SupervisorPrivate Equity Associate 12/27/23 documented as of this encounter
--- OUTSIDE RECORDS SUMMARY | 2025-01-01 13:15 | XMS_ITS | Encounter Summary ---
Author Organization [employer] Address [address] [facility] 7t [place] [address] Care Team Providers Care Professor Of Geography Name Role Phone Marc Nicolas Primary Care Provider Unavail able Radha Shah DEVELOPMENTAL PSYCHOLOGIST Primary Care Provider [phone] Colby Hirsch Unavailable Unavailable [facility] DEVELOPMENTAL PSYCHOLOGIST Primary Care Provider [phone] Reason for Visit * Reason Onset Date Comments Referral 01/26/2023 Encounter Details Date Type Department Care Team (Late st Contact Info) Description 01/26/2023 Telephone [facility] [address] [place] [address] Marc Nicolas AGNP Referral Social History Tobacco [...] 01/24/2025 2:00 PM EDT Clinical Support [address] [address] Kira Bansal RN 01/24/2025 2:30 PM EDT Office Visit [facility] [address] [place] [address] SumpterYecenia FNP [address] [place] [address] documented as of this encounter Visit Diagnoses Not on filedocumented in this encounter Additional Health Concerns Assessment Noted Time PHQ-9 Depression Total Score: 19 023 3:57 PM EDT documented as of this encounter Care Teams Professor Of Geography Relationship Specialty Start Date End Date Marc Nicolas AGNP PCP - General Family Medicine 10/22/22 04/20/23 Radha Shah FNP [address] [place] [address] PCP - General Family Medicine 04/21/23 04/25/24 SumpterYecenia FNP [address] [place] [address] PCP - General Family Medicine 04/26/24 Colby Hirsch FNP [address] [place] [address] Nurse Practitioner Family Medicine 07/13/23 Candice Ugarte Operations ControllerHealth Management Consultant 12/27/23 documented as of this encounter
--- OUTSIDE RECORDS SUMMARY | 2025-01-01 13:15 | XMS_ITS ---
Author Organization [facility] Address [address] [place] [address] Care Team Providers Care Bolt Header Name Role Phone Radha Rodriguez Primary Care Provider Jaylan Clancy Unavailable [phone] REASON FOR VISIT Patient presents today for FATTY LIVER Encounters Encounter Location Date Provider Diagnosis [facility] [address] [place] [address] 06/20/2024 Jaylan Neal Plan Of Treatment No Information Progress Notes * MADHU JAZLYNHAYLEESDOB: 0 (44 yo F)Acc No.[id number]:06/20/2024 Progress Notes Patient:?HARMAN LEUNG Provider:?Jaylan Neal MD :1980???Age:43 Y???Sex:Female D ate:06/20/2024 Address:[address] [place], [place] [id number] Pcp:JACINTO Ramos Subjective: * Chief Complaints: * [...] MD Date:? 024 Generated for Ashlee perez/Lisa/eTransmitting on:?01/01/2025 01:15 PM EDT
--- OUTSIDE RECORDS SUMMARY | 2025-01-01 13:16 | XMS_ITS | Encounter Summary ---
Author Organization [employer] Address [address] [facility] 7t [place] [address] Care Team Providers Care High Lift Operator Name Role Phone Radha Shah [facility] Primary Care Provider [phone] Colby Hirsch BANQUET COORDINATOR Unavailable Unavailable [facility] Primary Care Provider [phone] Reason for Visit * Reason Comments Med Refill Encounter Details Date Type Department Care Team (Late st Contact Info) Description 06/04/2023 Refill [facility] [address] [place] [address] Marilee Buckner FNP [address] [place] [address] Dept [place] [address] Multiple joint pain; Mixed anxiety and depressive [...] PM EDT Clinical Support [facility] [address] [place] [address] Kira Bansal RN 01/24/2025 2:30 PM EDT Office Visit [facility] [address] [place] [address] [address] [address] documented as of this encounter Visit Diagnoses Diagnosis Multiple joint pain Pain in joint, multiple sites Mixed anxiety and depressive disorder Dysthymic disorder documented in this encounter Additional Health Concerns Assessment Noted Time PHQ-9 Depression Total Score: 0 04/02/20 23 2:10 PM EDT documented as of this encounter Care Teams High Lift Operator Relationship Specialty Start Date End Date Radha Shah FNP [address] [place] [address] PCP - General Family Medicine 04/21/23 04/25/24 AltagraciaYecenia whipple FNP [address] [place] [address] PCP - General Family Medicine 04/26/24 Colby Hirsch FNP [address] [place] [address] Nurse Practitioner Family Medicine 07/13/23 Candice Ugarte Manager ComplianceTicket Speculator 12/27/23 documented as of this encounter
--- OUTSIDE RECORDS SUMMARY | 2025-01-01 13:16 | XMS_ITS | Encounter Summary ---
Author Organization [employer] Address [address] [address] 7t [place] [address] Care Team Providers Care Loop Puller Name Role Phone Radha Shah CLINICAL LIAISON Primary Care Provider [phone] Colby Hirsch Un[address] Unavailable [facility] Primary Care Provider [phone] Encounter Details Date Type Department Care Team (Late st Contact Info) Description 03/08/2024 Orders Only [facility] [address] [place] [address] Radha Shah FNP [address] [place] [address] Social History Tobacco Use Types Packs/Day Years [...] 01/24/2025 2:00 PM EDT Clinical Support [address] [address] Kira Bansal RN 01/24/2025 2:30 PM EDT Office Visit [facility] [address] [place] [address] AltagraciaYecenia whipple FNP [address] [place] [address] documented as of this encounter Visit Diagnoses Not on filedocumented in this encounter Additional Health Concerns Assessment Noted Time PHQ-9 Depression Total Score: 7 03/07/20 24 10:13 AM EDT documented as of this encounter Care Teams Loop Puller Relationship Specialty Start Date End Date Radha Shah FNP [address] [place] [address] PCP - General Family Medicine 04/21/23 04/25/24 Yecenia Frias FNP [address] [place] [address] PCP - General Family Medicine 04/26/24 Colby Hirsch FNP [address] [place] [address] Nurse Practitioner Family Medicine 07/13/23 Candice Ugarte Oxygen Furnace OperatorPottery Kiln Builder 12/27/23 documented as of this encounter
--- OUTSIDE RECORDS SUMMARY | 2025-01-01 13:16 | XMS_ITS | Encounter Summary ---
Author Organization [employer] Address [address] [facility] 7t [place] [address] Care Team Providers Care Natural Resources Engineer Name Role Phone Marc Nicolas Primary Care Provider Unavail able Radha Shah ADMINISTRATIVE INTERN Primary Care Provider [phone] Colby Hirsch Unavailable Unavailable [facility] ADMINISTRATIVE INTERN Primary Care Provider [phone] Reason for Visit * Reason Onset Date Comments Results 04/09/2023 Encounter Details Date Type Department Care Team (Late st Contact Info) Description 04/09/2023 Telephone [facility] [address] [place] [address] Marc Nicolas AGNP Results Social History Tobacco [...] AM EDT FYI T/C to pt. Through [employer] id - [id number] for below message. Pt. States she is having apt. With Dr. Sims on 05/03/2023 and wants to discuss on that day. Pt. Advised to give call back on [phone] if any questions or concerns. Pt. Verbally agreed and understood. Please review and advise if needed. * Telephone Encounter - Romeo Child - 04/09/2023 12:19 PM EDT Tc from pt requesting status on results for Liver that were done a moth ago pt states. Please contact pt at [phone] Belarusian Speaker documented in this encounter Plan of Treatment Upcoming Encounters Date Type Department Care Team (Late st Contact Info) Description 01/24/2025 2:00 PM EDT Clinical Support [address] [address] Kira Bansal RN 01/24/2025 2:30 PM EDT Office Visit [facility] [address] [place] [address] MontpelierYecenia whipple FNP [address] [place] [address] documented as of this encounter Visit Diagnoses Not on filedocumented in this encounter Additional Health Concerns Assessment Noted Time PHQ-9 Depression Total Score: 0 04/02/20 23 2:10 PM EDT documented as of this encounter Care Teams Natural Resources Engineer Relationship Specialty Start Date End Date Marc Nicolas AGNP PCP - General Family Medicine 10/22/22 04/20/23 Radha Shah FNP [address] [place] [address] PCP - General Family Medicine 04/21/23 04/25/24 Yecenia Frias FNP [address] [place] [address] PCP - General Family Medicine 04/26/24 Colby Hirsch FNP [address] [place] [address] Nurse Practitioner Family Medicine 07/13/23 Candice Ugarte Classifier TenderPlastic Mould Maker 12/27/23 documented as of this encounter
--- OUTSIDE RECORDS SUMMARY | 2025-01-01 13:16 | XMS_ITS | Encounter Summary ---
Author Organization [employer] Address 75 [facility] 7t [place] [address] Care Team Providers Care Stagecraft Professor Name Role Phone Marc Nicolas Primary Care Provider Unavail able Radha Shah ILLUMINATOR Primary Care Provider [phone] Colby Hirsch Unavailable Unavailable [facility] ILLUMINATOR Primary Care Provider [phone] Reason for Visit * Reason Comments Med Refill Encounter Details Date Type Department Care Team (Late Contact Info) Description 04/08/2023 Refill [facility] [address] [place] [address] Marc Nicolas AGNP Schizoaffective disorder, depressive type [...] Description 01/24/2025 2:00 PM EDT Clinical Support [facility] [address] [place], [place] [phone] Kira Bansal RN 01/24/2025 2:30 PM EDT Office Visit [facility] [address] [place] [address] Yecenia Frias FNP 230 [place] [address] documented as of this encounter Visit Diagnoses Diagnosis Schizoaffective disorder, depressive type (CMS/HCC) Schizoaffective disorder, unspecified condition Mixed anxiety and depressive disorder Dysthymic disorder documented in this encounter Additional Health Concerns Assessment Noted Time PHQ-9 Depression Total Score: 0 04/02/20 2:10 PM EDT documented as of this encounter Care Teams Stagecraft Professor Relationship Specialty Start Date End Date Marc Nicolas AGNP PCP - General Family Medicine 10/22/22 04/20/23 Radha Shah FNP [address] [place] [address] PCP - General Family Medicine 04/21/23 04/25/24 Yecenia Frias FNP [address] [place] [address] PCP - General Family Medicine 04/26/24 Colby Hirsch FNP [address] [place] [address] Nurse Practitioner Family Medicine 07/13/23 Candice Ugarte Insurance ExecutiveKineseologist 12/27/23 documented as of this encounter
--- OUTSIDE RECORDS SUMMARY | 2025-01-01 13:16 | XMS_ITS | Encounter Summary ---
Author Organization [employer] Address [address] [facility] [address] 7t [place] [address] Care Team Providers Care Harbor Department Manager Name Role Phone Radha Shah BAGGAGEMAN Primary Care Provider [phone] Colby Hirsch Unavailable Unavailable [facility] Primary Care Provider [phone] Reason for Visit * Reason Comments Med Refill Encounter Details Date Type Department Care Team (Late st Contact Info) Description 04/12/[address] [facility] [address] [place] [address] Radha Shah FNP [address] [place] [address] Multiple joint pain Social History Tobacco Use [...] PM EDT Clinical Support [facility] MED[facility] [address] [place] [address] Kira Bansal RN 01/24/2025 2:30 PM EDT Office Visit [facility] [address] [place] [address] AltagraciaYecenia whipple FNP [address] [place] [address] documented as of this encounter Visit Diagnoses Diagnosis Multiple joint pain Pain in joint, multiple sites documented in this encounter Additional Health Concerns Assessment Noted Time PHQ-9 Depression Total Score: 7 03/07/20 24 10:13 AM EDT documented as of this encounter Care Teams Harbor Department Manager Relationship Specialty Start Date End Date Radha Shah FNP [address] [place] [address] PCP - General Family Medicine 04/21/23 04/25/24 Yecenia Frias FNP [address] [place] [address] PCP - General Family Medicine 04/26/24 Colby Hirsch FNP [address] [place] [address] Nurse Practitioner Family Medicine 07/13/23 Candice Ugarte Bait MakerCatheterization Laboratory Technician 12/27/23 documented as of this encounter
--- OUTSIDE RECORDS SUMMARY | 2025-01-01 13:16 | XMS_ITS | Encounter Summary ---
Author Organization [employer] Address 75 [facility] 7t [place] [address] Care Team Providers Care Electrical Supervisor Name Role Phone Colby Hirsch GENERAL PARTNER Unavailable Unavailable [facility] Primary Care Provider [phone] Encounter Details Date Type Department Care Team (Late st Contact Info) Description 08/11/2024 Telephone [facility] MED[facility] 230 [place] [address] [facility] 230 [place] [address] Social History Tobacco Use Types Packs/Day Years [...] Description 01/24/2025 2:00 PM EDT Clinical Support [facility] [address] [place] [address] Kira Bansal RN 01/24/2025 2:30 PM EDT Office Visit [address] [address] Yecenia Frias FNP [address] [place] [address] documented as of this encounter Visit Diagnoses Not on filedocumented in this encounter Additional Health Concerns Assessment Noted Time PHQ-9 Depression Total Score: 7 03/07/20 24 10:13 AM EDT documented as of this encounter Care Teams Electrical Supervisor Relationship Specialty Start Date End Date Yecenia Frias FNP [address] [place] [address] PCP - General Family Medicine 04/26/24 Colby Hirsch FNP Nurse Practitioner Family Medicine 07/13/23 Candice Ugarte Keg HeaderVideo Rental Clerk 12/27/23 documented as of this encounter
--- OUTSIDE RECORDS SUMMARY | 2025-01-01 13:16 | XMS_ITS | Encounter Summary ---
Author Organization [email or web address] Address [address] [facility] [address] 7t [place] [address] Care Team Providers Care Dining Room Hostess Name Role Phone Radha Shah GANG BORE OPERATOR Primary Care Provider [phone] Colby Hirsch Unavailable Unavailable [facility] Primary Care Provider [phone] Reason for Visit * Reason Comments Med Refill Encounter Details Date Type Department Care Team ([facility] st Contact Info) Description 07/02/2023 Refill [facility] [address] [place] [address] Radha Shah FNP 230 [place] [address] Multiple joint pain Social History Tobacco Use [...] 01/24/2025 2:00 PM EDT Clinical Support [facility] [address] [place] [address] Kira Bansal RN 01/24/2025 2:30 PM EDT Office Visit [facility] [address] [place] [address] [place] [address] [address] documented as of this encounter Visit Diagnoses Diagnosis Multiple joint pain Pain in joint, multiple sites documented in this encounter Additional Health Concerns Assessment Noted Time PHQ-9 Depression Total Score: 6 06/15/20 23 10:23 AM EDT documented as of this encounter Care Teams Dining Room Hostess Relationship Specialty Start Date End Date Radha Shah FNP [address] [place] [address] PCP - General Family Medicine 04/21/23 04/25/24 [place] Springs[place] whipple FNP [address] [place] [address] PCP - General Family Medicine 04/26/24 Colby Hirsch FNP 230 [place] [address] Nurse Practitioner Family Medicine 07/13/23 Candice Ugarte Retail Service SpecialistDry Cleaner Presser 12/27/23 documented as of this encounter
--- OUTSIDE RECORDS SUMMARY | 2025-01-01 13:16 | XMS_ITS | Encounter Summary ---
Author Organization [employer] Address [address] [facility] [address] 7t [place] [address] Care Team Providers Care Jetting Machine Operator Name Role Phone Marc Nicolas Primary Care Provider Unavail able Radha Shah FLANGE TURNER Primary Care Provider [phone] Cobly HirschP Unavailable Unavailable [facility] FLANGE TURNER Primary Care Provider [phone] Reason for Visit * Reason Onset Date Comments Med Refill 03/10/2023 Encounter Details Date Type Department Care Team ([facility] Contact Info) Description 03/10/[address] [phone] Marc Nicolas AGNP Med Refill Social History [...] Description 01/24/2025 2:00 PM EDT Clinical Support [address] [address] Kira Bansal RN 01/24/2025 2:30 PM EDT Office Visit [facility] MED[facility] 230 [place] [address] Yecenia Frias FNP [address] [place] [address] documented as of this encounter Visit Diagnoses Not on filedocumented in this encounter Additional Health Concerns Assessment Noted Time PHQ-9 Depression Total Score: 13 023 3:27 PM EDT documented as of this encounter Care Teams Jetting Machine Operator Relationship Specialty Start Date End Date Marc Nicolas AGNP PCP - General Family Medicine 10/22/22 04/20/23 [place] [address] PCP - General Family Medicine 04/21/23 04/25/24 Yecenia Frias FNP [address] [place] [address] PCP - General Family Medicine 04/26/24 Colby Hirsch FNP [address] [place] [address] Nurse Practitioner Family Medicine 07/13/23 Candice Ugarte Shake CutterSoftware Test Developer 12/27/23 documented as of this encounter
--- OUTSIDE RECORDS SUMMARY | 2025-01-01 13:16 | XMS_ITS | Encounter Summary ---
Author Organization [employer] Address 75 [facility] 7t [place] [address] Care Team Providers Care Stringed Instrument Repairer Name Role Phone Radha Shah [facility] Primary Care Provider [phone] Colby Hirsch BLOWER BLAST FURNACE Unavailable Unavailable [facility] Primary Care Provider [phone] Reason for Visit * Reason Onset Date Comments Results 02/16/2024 Care Coordination 02/16/[address] Kelly joshua telephone call outreached Encounter Details Date Type Department Care Team (Late st Contact Info) Description 02/16/2024 Telephone [facility] [address] [place] [address] Radha Shah FNP [address] [place] [address] Results; Care Coordination ([id number] Obrien telephone call outreached) Social History Tobacco [...] results: labs Date when done: 02/06 Facility: [facility] Please contact pt at [phone] documented in this encounter Plan of Treatment Upcoming Encounters Date Type Department Care Team (Late st Contact Info) Description 01/24/2025 2:00 PM EDT Clinical Support [place] [address] Kira Bansal RN 01/24/2025 2:30 PM EDT Office Visit [facility] [address] [place] [address] Yecenia Frias FNP [address] [place] [address] documented as of this encounter Visit Diagnoses Not on filedocumented in this encounter Additional Health Concerns Assessment Noted Time PHQ-9 Depression Total Score: 6 12/28/19 24 11:17 AM EDT documented as of this encounter Care Teams Stringed Instrument Repairer Relationship Specialty Start Date End Date [place] [address] PCP - General Family Medicine 04/21/23 04/25/24 Yecenia Frias FNP [address] [place] [address] PCP - General Family Medicine 04/26/24 Colby Hirsch FNP [address] [place] [address] Nurse Practitioner Family Medicine 07/13/23 Candice Ugarte Weeder ThinnerOil Field Pumper 12/27/23 documented as of this encounter
--- OUTSIDE RECORDS SUMMARY | 2025-01-01 13:16 | XMS_ITS | Encounter Summary ---
Author Organization [employer] Address [address] [facility] 7t [place] [address] Care Team Providers Care Scoreboard Operator Name Role Phone Colby Hirsch INSIDE UPHOLSTERER Unavailable Unavailable [facility] Primary Care Provider [phone] Reason for Visit * Reason Comments Med Refill Encounter Details Date Type Department Care Team ([facility] st Contact Info) Description 10/31/2024 Refill [facility] MED[facility]INE 230 [place] [address] [facility] 230 [place] [address] Type 2 diabetes mellitus without complication, with long-term current use of insulin ([facility]) Social History Tobacco Use Types Packs/Day [...] Clinical Support [facility] MEDICINE [address] [place] [address] Kira Bansal RN 01/24/2025 2:30 PM EDT Office Visit [facility] MED[facility]INE [address] [place] [address] Yecenia Frias FNP 230 [place] [address] documented as of this encounter Visit Diagnoses Diagnosis Type 2 diabetes mellitus without complication, with long-term current use of insulin ([facility]) documented in this encounter Additional Health Concerns Assessment Noted Time PHQ-9 Depression Total Score: 0 10/24/19 25 1:15 PM EST documented as of this encounter Care Teams Scoreboard Operator Relationship Specialty Start Date End Date Yecenia Frias FNP [address] [place] [address] PCP - General Family Medicine 04/26/24 Colby Hirsch FNP Nurse Practitioner Family Medicine 07/13/23 Candice Ugarte Digitizer OperatorNut Sheller Machine Operator 12/27/23 documented as of this encounter
--- OUTSIDE RECORDS SUMMARY | 2025-01-01 13:16 | XMS_ITS | Encounter Summary ---
Author Organization [employer] Address [address] [facility] [address] 7t [place] [address] Care Team Providers Care Learning Support Assistant Name Role Phone Radha Shah GEOTECHNICAL DEPARTMENT MANAGER Primary Care Provider [phone] Colby Hirsch GEOTECHNICAL DEPARTMENT MANAGER Unavailable Unavailable [facility] GEOTECHNICAL DEPARTMENT MANAGER Primary Care Provider [phone] Reason for Visit * Reason Comments Med Refill Encounter Details Date Type Department Care Team (Late st Contact Info) Description 06/16/2023 Refill [facility] 230 [place] [address] Marc Nicolas AGNP Pain Social History Tobacco [...] Description 01/24/2025 2:00 PM EDT Clinical Support [address] [address] Kira Bansal RN 01/24/2025 2:30 PM EDT Office Visit [address] [address] AltagraciaYecenia whipple FNP [address] [place] [address] documented as of this encounter Visit Diagnoses Diagnosis Pain Generalized pain documented in this encounter Additional Health Concerns Assessment Noted Time PHQ-9 Depression Total Score: 6 06/15/20 23 10:23 AM EDT documented as of this encounter Care Teams Learning Support Assistant Relationship Specialty Start Date End Date Radha Shah FNP [address] [place] [address] PCP - General Family Medicine 04/21/23 04/25/24 [place] F[place] [address] [place] [address] PCP - General Family Medicine 04/26/24 Colby Hirsch FNP [address] [place] [address] Nurse Practitioner Family Medicine 07/13/23 Candice Ugarte Public Area SupervisorGround Crew Chief 12/27/23 documented as of this encounter
--- OUTSIDE RECORDS SUMMARY | 2025-01-01 13:16 | XMS_ITS | Encounter Summary ---
Author Organization [employer] Address 75 [facility] 7t [place] [address] Care Team Providers Care Manager Wholesale Name Role Phone Colby Hirsch CAR REPAIRMAN Unavailable Unavailable [facility] Primary Care Provider [phone] Reason for Visit * Reason Onset Date Comments Med Refill 09/29/2024 Encounter Details Date Type Department Care Team ([facility] st Contact Info) Description 09/29/[address] [facility] MED[facility]INE 230 [place] [address] [facility] 230 [place] [address] Med Refill Social History Tobacco Use Types [...] 50 MG tablet To be sent to: [facility] documented in this encounter Plan of Treatment Upcoming Encounters Date Type Department Care Team (Late st Contact Info) Description 01/24/2025 2:00 PM EDT Clinical Support [facility] MEDICINE [address] [place] [address] Kira Bansal RN 01/24/2025 2:30 PM EDT Office Visit [facility] MED[facility] [address] [place] [address] Yecenia Frias FNP 230 [place] [address] documented as of this encounter Visit Diagnoses Not on filedocumented in this encounter Additional Health Concerns Assessment Noted Time PHQ-9 Depression Total Score: 7 03/07/20 24 10:13 AM EDT documented as of this encounter Care Teams Manager Wholesale Relationship Specialty Start Date End Date Yecenia Frias FNP 230 [place] [address] PCP - General Family Medicine 04/26/24 Colby Hirsch FNP Nurse Practitioner Family Medicine 07/13/23 Candice Ugarte Clinical Quality AnalystOysterman 12/27/23 documented as of this encounter
--- OUTSIDE RECORDS SUMMARY | 2025-01-01 13:16 | XMS_ITS | Encounter Summary ---
Author Organization [employer] Address [address] [facility] [address] 7t [place] [address] Care Team Providers Care Heating Worker Name Role Phone Radha Shah OFFICE COORDINATOR RECEPTIONIST Primary Care Provider [phone] Colby Hirsch Unavailable Unavailable [facility] Primary Care Provider [phone] Encounter Details Date Type Department Care Team (Late st Contact Info) Description 02/17/2024 Community Care Management [facility]INE 230 [place] [address] Radha Shah FNP 230 [place] [address] Social History Tobacco Use Types Packs/Day Years [...] 01/24/2025 2:00 PM EDT Clinical Support [address] [address] Kira Bansal RN 01/24/2025 2:30 PM EDT Office Visit [address] [address] Yecenia Frias FNP [address] [place] [address] documented as of this encounter Visit Diagnoses Not on filedocumented in this encounter Additional Health Concerns Assessment Noted Time PHQ-9 Depression Total Score: 6 12/28/19 24 11:17 AM EDT documented as of this encounter Care Teams Heating Worker Relationship Specialty Start Date End Date Radha Shah FNP [address] [place] [address] PCP - General Family Medicine 04/21/23 04/25/24 Yecenia Frias FNP [address] [place] [address] PCP - General Family Medicine 04/26/24 Colby Hirsch FNP [address] [place] [address] Nurse Practitioner Family Medicine 07/13/23 Candice Ugarte Aircraft Magneto MechanicQuarry Supervisor Open Pit 12/27/23 documented as of this encounter
--- OUTSIDE RECORDS SUMMARY | 2025-01-01 13:16 | XMS_ITS | Encounter Summary ---
Author Organization [employer] Address [address] [facility] [address] 7t [place] [address] Care Team Providers Care Tool Designer Name Role Phone Radha Shah QUARRY WORKER Primary Care Provider [phone] Colby Hirsch Unavailable Unavailable [facility] Primary Care Provider [phone] Reason for Visit * Reason Comments Med Refill Encounter Details Date Type Department Care Team (Late st Contact Info) Description 06/30/2023 Refill [facility] MEDICINE [address] [place] [address] Radha Shah FNP [address] [place] [address] Multiple joint pain Social History Tobacco Use [...] Clinical Support [facility] MEDICINE [address] [place] [address] Kira Bansal RN 01/24/2025 2:30 PM EDT Office Visit [facility] MEDICINE [address] [place] [address] [address] [address] documented as of this encounter Visit Diagnoses Diagnosis Multiple joint pain Pain in joint, multiple sites documented in this encounter Additional Health Concerns Assessment Noted Time PHQ-9 Depression Total Score: 6 06/15/20 23 10:23 AM EDT documented as of this encounter Care Teams Tool Designer Relationship Specialty Start Date End Date Radha Shah FNP [address] [place] [address] PCP - General Family Medicine 04/21/23 04/25/24 [place]ecenia whipple FNP [address] [place] [address] PCP - General Family Medicine 04/26/24 Colby Hirsch FNP 230 [place] [address] Nurse Practitioner Family Medicine 07/13/23 Candice Ugarte Carbon Paper Coating Machine SetterAgricultural Extension Agent 12/27/23 documented as of this encounter
--- OUTSIDE RECORDS SUMMARY | 2025-01-01 13:16 | XMS_ITS | Encounter Summary ---
Author Organization [employer] Address 75 [facility] 7t [place] [address] Care Team Providers Care Manager Reading Name Role Phone Colby Hirsch INSPECTOR FLOOR SUB ASSEMBLY Unavailable Unavailable [facility] Primary Care Provider [phone] Reason for Visit * Reason Onset Date Comments FYI 06/23/2024 Encounter Details Date Type Department Care Team ([facility] st Contact Info) Description 06/23/2024 Telephone [facility] MED[facility]INE 230 [place] [address] [facility] 230 [place] [address] Social History Tobacco Use Types Packs/Day Years [...] 9:36 AM EDT Tc from Maribel at [facility] calling inform provider pt cancelled appointment with did not want to r/s. If any questions contact Maribel at [phone] documented in this encounter Plan of Treatment Upcoming Encounters Date Type Department Care Team ([facility] st Contact Info) Description 01/24/2025 2:00 PM EDT Clinical Support [facility] MEDICINE [address] [place] [address] Kira Bansal RN 01/24/2025 2:30 PM EDT Office Visit [facility] MED[facility]INE [address] [place] [address] Yecenia Frias FNP 230 [place] [address] documented as of this encounter Visit Diagnoses Not on filedocumented in this encounter Additional Health Concerns Assessment Noted Time PHQ-9 Depression Total Score: 7 03/07/20 24 10:13 AM EDT documented as of this encounter Care Teams Manager Reading Relationship Specialty Start Date End Date Yecenia Frias FNP [address] [place] [address] PCP - General Family Medicine 04/26/24 Colby Hirsch FNP Nurse Practitioner Family Medicine 07/13/23 Candice Ugarte Frit MixerTransmitter Supervisor 12/27/23 documented as of this encounter
--- OUTSIDE RECORDS SUMMARY | 2025-01-01 13:16 | XMS_ITS | Encounter Summary ---
Author Organization [employer] Address 75 [facility] 7t [place] [address] Care Team Providers Care Construction Ironworker Name Role Phone Marc Nicolas Primary Care Provider Unavail able Radha Shah WOODWORKING MACHINE FEEDER Primary Care Provider [phone] Colby Hirsch Unavailable Unavailable [facility] WOODWORKING MACHINE FEEDER Primary Care Provider [phone] Reason for Visit * Reason Comments Med Refill Encounter Details Date Type Department Care Team (Late Contact Info) Description 03/10/2023 Refill [facility] [address] [place] [address] Marc Nicolas AGNP Mixed anxiety and depressive [...] Description 01/24/2025 2:00 PM EDT Clinical Support [facility] [address] [place] [address] Kira Bansal RN 01/24/2025 2:30 PM EDT Office Visit [facility] MED[facility] [address] [place] [address] Yecenia Frias FNP 230 [place] [address] documented as of this encounter Visit Diagnoses Diagnosis Mixed anxiety and depressive disorder Dysthymic disorder documented in this encounter Additional Health Concerns Assessment Noted Time PHQ-9 Depression Total Score: 13 023 3:27 PM EDT documented as of this encounter Care Teams Construction Ironworker Relationship Specialty Start Date End Date Marc Nicolas AGNP PCP - General Family Medicine 10/22/22 04/20/23 [place] [address] PCP - General Family Medicine 04/21/23 04/25/24 Yecenia [place] [address] PCP - General Family Medicine 04/26/24 Colby Hirsch FNP [address] [place] [address] Nurse Practitioner Family Medicine 07/13/23 Candice Ugarte Sack SorterCircular Distributor 12/27/23 documented as of this encounter
--- OUTSIDE RECORDS SUMMARY | 2025-01-01 13:16 | XMS_ITS ---
Author Organization [facility] Address [address] [place] [address] Care Team Providers Care Pet Training Instructor Name Role Phone Radha Rodriguez Primary Care Provider Roalndaa Jaylan Alaniz Unavailable [phone] REASON FOR VISIT FATTY LIVER Encounters Encounter Location Date Provider Diagnosis [facility] [address] [place] [address] 06/20/2024 Jaylan Neal Plan Of Treatment No Information Progress Notes * ABA LEUNGSDOB: 0 (44 yo F)Acc No.[id number]:06/20/2024 Progress Notes Patient:?HARMAN LEUNG Provider:?Jaylan Neal MD :1980???Age:43 Y???Sex:Female D ate:06/20/2024 Address:[address] [place] [address], [facility] Pcp:JACINTO Ramos Subjective: * Chief Complaints: * [...]
--- OUTSIDE RECORDS SUMMARY | 2025-01-01 13:16 | XMS_ITS | Encounter Summary ---
Author Organization [employer] Address [address] [facility] 7t [place] [address] Care Team Providers Care Research Electrician Name Role Phone Marc Nicolas Primary Care Provider Unavail able Radha Shah HUMAN RESOURCES OPERATIONS COORDINATOR Primary Care Provider [phone] Colby Hirsch Unavailable Unavailable [facility] HUMAN RESOURCES OPERATIONS COORDINATOR Primary Care Provider [phone] Reason for Visit * Reason Comments Med Refill Encounter Details Date Type Department Care Team ([facility] Contact Info) Description 04/07/2023 Refill [facility] & PEDS [address] [place], [place] [phone] Marc Nicolas AGNP Multiple joint pain Social [...] Upcoming Encounters Date Type Department Care Team ([facility] Contact Info) Description 01/24/2025 2:00 PM EDT Clinical Support [address] [phone] Kira Bansal RN 01/24/2025 2:30 PM EDT Office Visit [facility] [address] [place] [address] MedfordYecenia FNP [address] [place] [address] documented as of this encounter Visit Diagnoses Diagnosis Multiple joint pain Pain in joint, multiple sites documented in this encounter Additional Health Concerns Assessment Noted Time PHQ-9 Depression Total Score: 0 04/02/20 2:10 PM EDT documented as of this encounter Care Teams Research Electrician Relationship Specialty Start Date End Date Marc Nicolas AGNP PCP - General Family Medicine 10/22/22 04/20/23 Radha Shah FNP [address] [place] [address] PCP - General Family Medicine 04/21/23 04/25/24 MedfordYecenia FNP [address] [place] [address] PCP - General Family Medicine 04/26/24 Colby Hirsch FNP [address] [place] [address] Nurse Practitioner Family Medicine 07/13/23 Candice Ugarte Typesetter ApprenticeHuman Resources Psychologist 12/27/23 documented as of this encounter
--- OUTSIDE RECORDS SUMMARY | 2025-01-01 13:16 | XMS_ITS | Encounter Summary ---
Author Organization [employer] Address [address] [facility] [address] 7t [place] [address] Care Team Providers Care Cigarette Stamper Name Role Phone Radha Shah NON CDL DRIVER Primary Care Provider [phone] Colby Hirsch Unavailable Unavailable [facility] NON CDL DRIVER Primary Care Provider [phone] Encounter Details Date Type Department Care Team (Late st Contact Info) Description 04/24/2024 Orders Only [facility] MED & PEDS [address] [place] [address] Radha Shah FNP [address] [place] [address] Elevated lipids (Primary Dx) Social History Tobacco [...] Description 01/24/2025 2:00 PM EDT Clinical Support [facility] [address] [place] [address] Kira Bansal RN 01/24/2025 2:30 PM EDT Office Visit [address] [address] [place] Hadley[place]ecenia FNP [address] [place] [address] documented as of this encounter Procedures Procedure Name Priority Date/Time Associated Diagnosis Comments LIPID PANEL, STANDARD Routine 05/12/2024 11:00 AM EDT Elevated lipids documented in this encounter Results * (ABNORMAL) Lipid Panel, Standard (05/12/2024 11:00 AM EDT) Triglycerides 100 <150 mg/dL [facility] Comment:Desirable Triglyceri de: less than 150 mg/dLBorderline High Triglyceride 150-199 mg/dLHigh Triglyceride: 200-499 mg/dLVery High Triglyceride: greater than or equal to 5OO mg/dL Cholesterol 101 <200 mg/dL [facility] Comment:Desirable Cholestero l: less than 200 mg/dLBorderline High Cholesterol: 200-239 mg/dLHigh Cholesterol: greater than 239 mg/dL LDL Cholesterol Calculated 44 <100 mg/dL [facility] Comment:Desirable LDL: less than 100 mg/dLNear Optimal/Above Optimal LDL: 110- 129 mg/dLBorderline High LDL: 130-159 mg/dLHigh LDL: 160-189 mg/dLVery High LDL: greater than or equal to 190 mg/dL HDL Cholesterol 37(L) >40 mg/dL [facility] Comment:Desirable HDL: great er than 40 mg/dL Note: This HDL assay may give artificially low results in patients with liver disease. Blood Venous blood specimen / Unknown 05/12/2024 11:00 AM EDT 05/12/2024 11:00 AM EDT Radha CASEY LAB BLOOD ORDERABLES Final Resu lt [facility] [address] [place] [address] [phone] documented in this encounter Visit Diagnoses Diagnosis Elevated lipids- Primary documented in this encounter Additional Health Concerns Assessment Noted Time PHQ-9 Depression Total Score: 7 03/07/20 24 10:13 AM EDT documented as of this encounter Care Teams Cigarette Stamper Relationship Specialty Start Date End Date Radha Shah FNP [address] [place] [address] PCP - General Family Medicine 04/21/23 04/25/24 [place]ley[place]ecenia FNP [address] [place] [address] PCP - General Family Medicine 04/26/24 Colby Hirsch FNP [address] [place] [address] Nurse Practitioner Family Medicine 07/13/23 Candice Ugarte Study Hall SupervisorCrossbar Frame Wirer 12/27/23 documented as of this encounter
--- OUTSIDE RECORDS SUMMARY | 2025-01-01 13:16 | XMS_ITS | Encounter Summary ---
Author Organization [employer] Address 75 [facility] 7t [place] [address] Care Team Providers Care Rod Buster Name Role Phone Radha Shah Primary Care Provider [phone] Colby Hirsch Unavailable Unavailable [facility] Primary Care Provider [phone] Reason for Referral * Consultation (Routine) - Closed Specialty Diagnoses / Procedures Referred By Aminta anderson Referred To Contact Diagnoses Routine adult health maintenance Radha Shah FNP [address] [place] [address] Phone: tel: fax: [address] [address] Phone: tel: fax: Referral ID Status Reason Start Date Expiration Date V isits Requested Visits Authorized [id number] Closed Specialty Services Required 02/16/2024 02/15/2025 1 1 Encounter Details Date Type Department Care Team (Late st Contact Info) Description 02/16/2024 Orders Only [facility] MED & PEDS [address] [place] [address] Radha Shah FNP [address] [place] [address] Routine adult health maintenance (Primary Dx) Social [...] Description 01/24/2025 2:00 PM EDT Clinical Support [facility] [address] [place] [address] Kira Bansal, MEREDITH 01/24/2025 2:30 PM EDT Office Visit [facility] [address] [place] [address] Yecenia Frias FNP [address] [place] [address] Scheduled Referrals Name Type Priority Associated Diagnoses [...] documented as of this encounter Care Teams Rod Buster Relationship Specialty Start Date End Date Radha Shah FNP [address] [place] [address] PCP - General Family Medicine 04/21/23 04/25/24 AltagraciaYecenia whipple FNP [address] [place] [address] PCP - General Family Medicine 04/26/24 Colby Hirsch FNP [address] [place] [address] Nurse Practitioner Family Medicine 07/13/23 Candice Ugarte Unleavened Dough MixerCasing Sewer 12/27/23 documented as of this encounter
--- OUTSIDE RECORDS SUMMARY | 2025-01-01 13:16 | XMS_ITS | Encounter Summary ---
Author Organization [employer] Address [address] [facility] [address] 7t [place] [address] Care Team Providers Care Nursing Home Manager Name Role Phone PabloRadha WORK DISTRIBUTOR Primary Care Provider [phone] Colby Hirsch Unavailable Unavailable [facility] Primary Care Provider [phone] Reason for Visit * Reason Comments Med Refill Encounter Details Date Type Department Care Team (Late st Contact Info) Description 01/04/2024 Refill [facility] 230 [place] [address] Colby Hirsch FNP Social History Tobacco Use [...] Description 01/24/2025 2:00 PM EDT Clinical Support [address] [address] Kira Bansal RN 01/24/2025 2:30 PM EDT Office Visit [facility] [address] [place] [address] Yecenia Frias FNP [address] [place] [address] documented as of this encounter Visit Diagnoses Not on filedocumented in this encounter Additional Health Concerns Assessment Noted Time PHQ-9 Depression Total Score: 6 12/28/19 24 11:17 AM EDT documented as of this encounter Care Teams Nursing Home Manager Relationship Specialty Start Date End Date Radha Shah FNP [address] [place] [address] PCP - General Family Medicine 04/21/23 04/25/24 LodgeYecenia whipple FNP [address] [place] [address] PCP - General Family Medicine 04/26/24 Colby Hirsch FNP [address] [place] [address] Nurse Practitioner Family Medicine 07/13/23 Candice Ugarte Wind Plant ManagerHemmer Chainstitch 12/27/23 documented as of this encounter
--- OUTSIDE RECORDS SUMMARY | 2025-01-01 13:16 | XMS_ITS | Encounter Summary ---
Author Organization [employer] Address [address] [facility] [address] 7t [place] [address] Care Team Providers Care Tire Building Supervisor Name Role Phone Radha Shah STRUCTURAL TECHNICIAN Primary Care Provider [phone] Colby Hirsch STRUCTURAL TECHNICIAN Unavailable Unavailable [facility] STRUCTURAL TECHNICIAN Primary Care Provider [phone] Reason for Visit * Reason Comments Med Refill Encounter Details Date Type Department Care Team (Late st Contact Info) Description 06/28/2023 Refill [facility] MED & PEDS [address] [place] [address] Radha Shah FNP [address] [place] [address] Schizoaffective disorder, depressive type (CMS/HCC) Social History [...] your housing situation today? I have dell rodrgiuez 06/07/[address] you li [...] Description 01/24/2025 2:00 PM EDT Clinical Support [facility] [address] [place] [address] Kira Bansal RN 01/24/2025 2:30 PM EDT Office Visit [address] [address] Yecenia [address] [address] documented as of this encounter Visit Diagnoses Diagnosis Schizoaffective disorder, depressive type ([facility]) Schizoaffective disorder, unspecified condition documented in this encounter Additional Health Concerns Assessment Noted Time PHQ-9 Depression Total Score: 6 06/15/20 23 10:23 AM EDT documented as of this encounter Care Teams Tire Building Supervisor Relationship Specialty Start Date End Date Radha Shah FNP [address] [place] [address] PCP - General Family Medicine 04/21/23 04/25/24 Yecenia Frias FNP [address] [place] [address] PCP - General Family Medicine 04/26/24 Colby Hirsch FNP 230 [place] [address] Nurse Practitioner Family Medicine 07/13/23 Candice Ugarte Coating And Embossing Unit OperatorBead Supervisor 12/27/23 documented as of this encounter
--- OUTSIDE RECORDS SUMMARY | 2025-01-01 13:16 | XMS_ITS | Encounter Summary ---
Author Organization [employer] Address 75 [facility] 7t [place] [address] Care Team Providers Care Belt Fixer Name Role Phone Marc Nicolas Primary Care Provider Unavail able Radha Shah BUTADIENE COMPRESSOR OPERATOR Primary Care Provider [phone] Colby Hirsch Unavailable Unavailable [facility] BUTADIENE COMPRESSOR OPERATOR Primary Care Provider [phone] Reason for Visit * Reason Comments Med Refill Encounter Details Date Type Department Care Team (Late Contact Info) Description 04/08/2023 Refill [facility] [address] [place] [address] Marc Nicolas AGNP Mixed anxiety and depressive [...] 01/24/2025 2:00 PM EDT Clinical Support [address] [phone] Kira Bansal RN 01/24/2025 2:30 PM EDT Office Visit [facility] [address] [place] [address] [facility] [address] [place] [address] documented as of this encounter Visit Diagnoses Diagnosis Mixed anxiety and depressive disorder Dysthymic disorder documented in this encounter Additional Health Concerns Assessment Noted Time PHQ-9 Depression Total Score: 0 04/02/20 2:10 PM EDT documented as of this encounter Care Teams Belt Fixer Relationship Specialty Start Date End Date Marc Nicolas AGNP PCP - General Family Medicine 10/22/22 04/20/23 Radha Shah FNP [address] [place] [address] PCP - General Family Medicine 04/21/23 04/25/24 [place] [address] PCP - General Family Medicine 04/26/24 [place] [address] Nurse Practitioner Family Medicine 07/13/23 Candice Ugarte Explosive Operator BombCrm Marketing Manager 12/27/23 documented as of this encounter
--- OUTSIDE RECORDS SUMMARY | 2025-01-01 13:16 | XMS_ITS | Encounter Summary ---
Author Organization [employer] Address 75 [facility] 7t [place] [address] Care Team Providers Care Fugitive Detective Name Role Phone Marc Nicolas Primary Care Provider Unavail able Radha Shah Primary Care Provider [phone] Colby Hirsch Unavailable Unavailable [facility] CONE MACHINE OPERATOR Primary Care Provider [phone] Reason for Visit * Reason Onset Date Comments Med Refill 04/09/2023 Encounter Details Date Type Department Care Team (Late st Contact Info) Description 04/09/2023 Refill [facility] 230 [place] [address] Marc Nicolas AGNP Mixed anxiety and depressive [...] listed in EHR, no record. Spoke with [facility] pharmacy, she is listed as Romaine [...] (KlonoPIN) 0.5 MG tablet Please sent to [facility] [place] [place] - [address] [place] [address] documented in this encounter Plan of Treatment Upcoming Encounters Date Type Department Care Team (Late st Contact Info) Description 01/24/2025 2:00 PM EDT Clinical Support [facility] [address] [place] [address] Kira Bansal RN 01/24/2025 2:30 PM EDT Office Visit [facility] [address] [place] [address] Yecenia Frias FNP [address] [place] [address] documented as of this encounter Visit Diagnoses Diagnosis Mixed anxiety and depressive disorder Dysthymic disorder documented in this encounter Additional Health Concerns Assessment Noted Time PHQ-9 Depression Total Score: 0 04/02/20 2:10 PM EDT documented as of this encounter Care Teams Fugitive Detective Relationship Specialty Start Date End Date Marc Nicolas AGNP PCP - General Family Medicine 10/22/22 04/20/23 Radha Shah FNP [address] [place] [address] PCP - General Family Medicine 04/21/23 04/25/24 Yecenia Frias FNP [address] [place] [address] PCP - General Family Medicine 04/26/24 Colby Hirsch FNP [address] [place] [address] Nurse Practitioner Family Medicine 07/13/23 Candice Ugarte Oracle Soa ConsultantDeli Worker 12/27/23 documented as of this encounter
--- OUTSIDE RECORDS SUMMARY | 2025-01-01 13:16 | XMS_ITS | Encounter Summary ---
Author Organization [employer] Address [address] [facility] [address] 7t [place] [address] Care Team Providers Care Bookkeeping Assistant Name Role Phone Marc Nicolas Primary Care Provider Unavail able Radha Shah CHANNEL REBUILDER Primary Care Provider [phone] Colby Hirsch Unavailable Unavailable [facility] CHANNEL REBUILDER Primary Care Provider [phone] Reason for Visit * Reason Comments Med Refill Encounter Details Date Type Department Care Team (Late st Contact Info) Description 03/10/2023 Refill [facility] [address] [place] [address] Marc Nicolas AGNP Mixed anxiety and depressive [...] Will send to PCP on 03/18/23. Has UNDERBASTER scheduled 03/17/23. * Telephone Encounter - Chikadeborah Low - 03/15/2023 9:14 AM EDT Tc from patient requesting a med refill for medication tramadol [address] Nicolas documented in this encounter Plan of Treatment Upcoming Encounters Date Type Department Care Team (Late st Contact Info) Description 01/24/2025 2:00 PM EDT Clinical Support [address] [address] Kira Bansal RN 01/24/2025 2:30 PM EDT Office Visit [address] [address] Yecenia Frias FNP [address] [place] [address] documented as of this encounter Visit Diagnoses Diagnosis Mixed anxiety and depressive disorder Dysthymic disorder Multiple joint pain Pain in joint, multiple sites documented in this encounter Additional Health Concerns Assessment Noted Time PHQ-9 Depression Total Score: 13 023 3:27 PM EDT documented as of this encounter Care Teams Bookkeeping Assistant Relationship Specialty Start Date End Date Marc Nicolas AGNP PCP - General Family Medicine 10/22/22 04/20/23 Radha Shah FNP [address] [place] [address] PCP - General Family Medicine 04/21/23 04/25/24 Yecenia Frias FNP [address] [place] [address] PCP - General Family Medicine 04/26/24 Colby Hirsch FNP [address] [place] [address] Nurse Practitioner Family Medicine 07/13/23 Candice Ugarte Oil Paint ShaderSpinning Machine Operator 12/27/23 documented as of this encounter
--- OUTSIDE RECORDS SUMMARY | 2025-01-01 13:16 | XMS_ITS | Encounter Summary ---
Author Organization [employer] Address 75 [facility] 7t [place] [address] Care Team Providers Care Roller Skater Name Role Phone Radha Shah [facility] Primary Care Provider [phone] Colby Hirsch COMMERCIAL APPRAISER Unavailable Unavailable [facility] Primary Care Provider [phone] Reason for Visit * Reason Comments Med Refill Encounter Details Date Type Department Care Team (Late st Contact Info) Description 06/09/2023 Refill [facility] 230 [place] [address] Marilee Buckner FNP [address] [place] [address] Dept [place] [address] Multiple joint pain; Mixed anxiety and depressive [...] 01/24/2025 2:00 PM EDT Clinical Support [facility] [address] [place] [address] Kira Bansal RN 01/24/2025 2:30 PM EDT Office Visit [facility] [address] [place] [address] [place] [address] [address] documented as of this encounter Visit Diagnoses Diagnosis Multiple joint pain Pain in joint, multiple sites Mixed anxiety and depressive disorder Dysthymic disorder documented in this encounter Additional Health Concerns Assessment Noted Time PHQ-9 Depression Total Score: 18 023 11:25 AM EDT documented as of this encounter Care Teams Roller Skater Relationship Specialty Start Date End Date Radha Shah FNP [address] [place] [address] PCP - General Family Medicine 04/21/23 04/25/24 [place] whipple FNP [address] [place] [address] PCP - General Family Medicine 04/26/24 Colby Hirsch FNP 230 [place] [address] Nurse Practitioner Family Medicine 07/13/23 Candice Ugarte Biomedical Engineering TechnicianPersonnel Recruiter 12/27/23 documented as of this encounter
--- OUTSIDE RECORDS SUMMARY | 2025-01-01 13:17 | XMS_ITS | Encounter Summary ---
Author Organization [employer] Address [address] [facility] [address] 7t [place] [address] Care Team Providers Care Senior Application Software Engineer Name Role Phone Marc Nicolas Primary Care Provider Unavail able Radha Shah Primary Care Provider [phone] Colby Hirsch Unavailable Unavailable [facility] COMMERCIAL PROPERTY ADMINISTRATOR Primary Care Provider [phone] Reason for Visit * Reason Onset Date Comments Med Refill 03/16/2023 Encounter Details Date Type Department Care Team (Late st Contact Info) Description 03/16/2023 Telephone [facility] [address] [place] [address] Marc Nicolas AGNP Med Refill Social History [...] 03/16/2023 3:56 PM EDT Pt scheduled for CORPORATE DIRECTOR OF HUMAN RESOURCES RV 03/17/23 @ 10am. Tramadol refill due 03/19/23, Clonazepam refill due 03/18/23.Will forward request to PCP after CORPORATE DIRECTOR OF HUMAN RESOURCES appt 03/17/23. * Telephone Encounter - Natividad Rio - 03/16/2023 3:36 PM EDT Tc from pt requesting medication refill on traMADol (Ultram) 50 MG tablet and clonazePAM (KlonoPIN)0.5 MG tablet documented in this encounter Plan of Treatment Upcoming Encounters Date Type Department Care Team (Late st Contact Info) Description 01/24/2025 2:00 PM EDT Clinical Support [address] [address] Kira Bansal RN 01/24/2025 2:30 PM EDT Office Visit [address] [address] [place] [address] [address] documented as of this encounter Visit Diagnoses Not on filedocumented in this encounter Additional Health Concerns Assessment Noted Time PHQ-9 Depression Total Score: 13 023 3:27 PM EDT documented as of this encounter Care Teams Senior Application Software Engineer Relationship Specialty Start Date End Date Marc Nicolas AGNP PCP - General Family Medicine 10/22/22 04/20/23 Radha Shah FNP [address] [place] [address] PCP - General Family Medicine 04/21/23 04/25/24 AltagraciaYecenia whipple FNP [address] [place] [address] PCP - General Family Medicine 04/26/24 Colby Hirsch FNP [address] [place] [address] Nurse Practitioner Family Medicine 07/13/23 Candice Ugarte High RiggerCommercial Real Estate Attorney 12/27/23 documented as of this encounter
--- OUTSIDE RECORDS SUMMARY | 2025-01-01 13:17 | XMS_ITS | Encounter Summary ---
Author Organization [employer] Address 75 [facility] 7t [place] [address] Care Team Providers Care Res Habilitation Assistant Name Role Phone Marc Nicolas Primary Care Provider Unavail able Radha Shah STUDIO HAND Primary Care Provider [phone] Colby Hirsch Unavailable Unavailable [facility] STUDIO HAND Primary Care Provider [phone] Reason for Visit * Reason Comments Med Refill Encounter Details Date Type Department Care Team ([facility] Contact [facility] Description 03/17/2023 Refill [facility] [address] [place] [address] Marc Nicolas AGNP Mixed anxiety and depressive [...] Upcoming Encounters Date Type Department Care Team ([facility] Contact Info) Description 01/24/2025 2:00 PM EDT Clinical Support [facility] [address] [place] [address] Kira Bansal RN 01/24/2025 2:30 PM EDT Office Visit [facility] [address] [place] [address] Yecenia Frias FNP [address] [place] [address] documented as of this encounter Visit Diagnoses Diagnosis Mixed anxiety and depressive disorder Dysthymic disorder documented in this encounter Additional Health Concerns Assessment Noted Time PHQ-9 Depression Total Score: 13 023 3:27 PM EDT documented as of this encounter Care Teams Res Habilitation Assistant Relationship Specialty Start Date End Date Marc Nicolas AGNP PCP - General Family Medicine 10/22/22 04/20/23 Radha Shah FNP [address] [place] [address] PCP - General Family Medicine 04/21/23 04/25/24 Yecenia Frias FNP [address] [place] [address] PCP - General Family Medicine 04/26/24 Colby Hirsch FNP [address] [place] [address] Nurse Practitioner Family Medicine 07/13/23 Candice Ugarte Facilities OperatorFish And Wildlife Warden 12/27/23 documented as of this encounter
--- OUTSIDE RECORDS SUMMARY | 2025-01-01 13:17 | XMS_ITS | Encounter Summary ---
Author Organization [employer] Address [address] [facility] [address] [place] [address] Care Team Providers Care Evs Manager Name Role Phone Radha Shah TRANSPORTATION INSPECTOR Primary Care Provider [phone] Colby Hirsch Unavailable Unavailable [facility] Primary Care Provider [phone] Reason for Visit * Reason Comments Med Refill Encounter Details Date Type Department Care Team (Late st Contact Info) Description 02/16/2024 Refill [facility] [address] [place] [address] Radha Shah FNP [address] [place] [address] Multiple joint pain Social History Tobacco Use [...] 2:00 PM EDT Clinical Support [facility] [address] [place] [address] Kira Bansal RN 01/24/2025 2:30 PM EDT Office Visit [facility] [address] [place] [address] De YoungYecenia FNP [address] [place] [address] documented as of this encounter Visit Diagnoses Diagnosis Multiple joint pain Pain in joint, multiple sites documented in this encounter Additional Health Concerns Assessment Noted Time PHQ-9 Depression Total Score: 6 12/28/19 24 11:17 AM EDT documented as of this encounter Care Teams Evs Manager Relationship Specialty Start Date End Date Radha Shah FNP [address] [place] [address] PCP - General Family Medicine 04/21/23 04/25/24 De YoungYecenia whipple FNP [address] [place] [address] PCP - General Family Medicine 04/26/24 Colby Hirsch FNP [address] [place] [address] Nurse Practitioner Family Medicine 07/13/23 Candice Ugarte Veterinary Assistant TechnicianCalibration Engineer 12/27/23 documented as of this encounter
== END 2025-01-01 13:42 | disposition home or self-care (01) ==
LOC: HO.ENCR 12:56
PROVIDERS: Visit Provider Physician Assistant
DX: E11.9 Type 2 diabetes mellitus without complications (principal); E78.5 Hyperlipidemia, unspecified; I10 Essential (primary) hypertension

== ENCOUNTER 2025-01-01 12:56 | Outpatient (REF) | payer MEDICAID, SELFPAY ==
--- OUTSIDE RECORDS SUMMARY | 2025-01-01 14:06 | XMS_ITS | Encounter Summary ---
Author Organization [employer] Address [address] [facility] [address] 7[address] [place] [address] Care Team Providers Care Turret Lathe Machinist Name Role Phone Radha Shah GLOVE CLEANER Primary Care Provider [phone] Colby Hirsch Unavailable Unavailable [facility] Primary Care Provider Encounter Details Date Type Department Care Team (Late st Contact Info) Description 10/29/2023 Orders Only [facility] [address] [place] [address] Radha Shah FNP [address] [place] [address] Social History Tobacco Use Types Packs/Day Years [...] 01/24/2025 2:00 PM EDT Clinical Support [address] [address] Kira Bansal RN 01/24/2025 2:30 PM EDT Office Visit [address] [address] Yecenia Frias FNP [address] [place] [address] documented as of this encounter Visit Diagnoses Not on filedocumented in this encounter Additional Health Concerns Assessment Noted Time PHQ-9 Depression Total Score: 8 09/02/19 24 11:12 AM EST documented as of this encounter Care Teams Turret Lathe Machinist Relationship Specialty Start Date End Date Radha Shah FNP [address] [place] [address] PCP - General Family Medicine 04/21/23 04/25/24 Yecenia Frias FNP [address] [place] [address] PCP - General Family Medicine 04/26/24 Colby Hirsch FNP [address] [place] [address] Nurse Practitioner Family Medicine 07/13/23 Candice Ugarte Book SorterFeed Research Aide 12/27/23 documented as of this encounter
--- OUTSIDE RECORDS SUMMARY | 2025-01-01 14:06 | XMS_ITS | Encounter Summary ---
Author Organization [employer] Address [address] [facility] [address] 7[address] [place] [address] Care Team Providers Care Classification Analyst Name Role Phone Radha Shah OPTICAL FABRICATOR Primary Care Provider [phone] Colby Hirsch Unavailable Unavailable [facility] OPTICAL FABRICATOR Primary Care Provider [phone] Reason for Visit * Reason Onset Date Comments telephone call 10/29/2023 Encounter Details Date Type Department Care Team ([facility] st Contact Info) Description 10/29/[address] [facility] [address] [place] [address] Radha Shah FNP [address] [place] [address] Multiple joint pain Social History Tobacco Use [...] not remember the program name. A steam bone press tender from the program told her that if she still want to be in the program she needs a referral from PCP. Please call patient with any concern or questions. * Telephone Encounter - Celine Pate - 11/12/2023 9:46 AM EDT Patient walked in requesting a referral for a program. Patient does not remember the program name. A steam bone press tender from the program told her that if she still want to be in the program she needs a referral from PCP. Please call patient with any concern or questions. documented in this encounter Plan of Treatment Upcoming Encounters Date Type Department Care Team (Late st Contact Info) Description 01/24/2025 2:00 PM EDT Clinical Support [facility] [address] [place] [address] Kira Bansal RN 01/24/2025 2:30 PM EDT Office Visit [facility] [address] [place] [address] Yecenia Frias FNP [address] [place] [address] documented as of this encounter Visit Diagnoses Diagnosis Multiple joint pain Pain in joint, multiple sites documented in this encounter Additional Health Concerns Assessment Noted Time PHQ-9 Depression Total Score: 8 09/02/19 24 11:12 AM EST documented as of this encounter Care Teams Classification Analyst Relationship Specialty Start Date End Date Radha Shah FNP [address] [place] [address] PCP - General Family Medicine 04/21/23 04/25/24 Yecenia Frias FNP [address] [place] [address] PCP - General Family Medicine 04/26/24 Colby Hirsch FNP [address] [place] [address] Nurse Practitioner Family Medicine 07/13/23 Candice Ugarte Industrial Sweeper CleanerSpeech Therapy Teacher 12/27/23 documented as of this encounter
--- OUTSIDE RECORDS SUMMARY | 2025-01-01 14:06 | XMS_ITS | Encounter Summary ---
Author Organization [employer] Address 75 [facility] 7t [place] [address] Care Team Providers Care Rn Discharge Name Role Phone Marc Nicolas Primary Care Provider Unavail able Radha Shah MIX TECHNICIAN Primary Care Provider [phone] Colby Hirsch Unavailable Unavailable [facility] MIX TECHNICIAN Primary Care Provider [phone] Reason for Visit * Reason Onset Date Comments Referral 01/26/2023 Encounter Details Date Type Department Care Team (Late st Contact Info) Description 01/26/2023 Telephone [facility] [address] [place] [address] Marc Nicolas AGNP Referral Social History Tobacco [...] Description 01/24/2025 2:00 PM EDT Clinical Support [address] [address] Kira Bansal RN 01/24/2025 2:30 PM EDT Office Visit [facility] [address] [place] [address] [place] FNP [address] [place] [address] documented as of this encounter Visit Diagnoses Not on filedocumented in this encounter Additional Health Concerns Assessment Noted Time PHQ-9 Depression Total Score: 19 023 3:57 PM EDT documented as of this encounter Care Teams Rn Discharge Relationship Specialty Start Date End Date Marc Nicolas AGNP PCP - General Family Medicine 10/22/22 04/20/23 Radha Shah FNP [address] [place] [address] PCP - General Family Medicine 04/21/23 04/25/24 [place] FNP [address] [place] [address] PCP - General Family Medicine 04/26/24 Colby Hirsch FNP [address] [place] [address] Nurse Practitioner Family Medicine 07/13/23 Candice Ugarte Slitter And Cutter OperatorAssociate 12/27/23 documented as of this encounter
--- OUTSIDE RECORDS SUMMARY | 2025-01-01 14:06 | XMS_ITS | Encounter Summary ---
Author Organization [employer] Address 75 [facility] 7t [place] [address] Care Team Providers Care Inspector Water Pollution Control Name Role Phone Colby Hirsch DRY HEAT ROOM ATTENDANT Unavailable Unavailable [facility] Primary Care Provider Reason for Visit * Reason Onset Date Comments Med Refill 01/01/2025 Encounter Details Date Type Department Care Team ([facility] st Contact Info) Description 01/01/2025 Telephone [facility] [address] [place] [address] [facility] [address] [place] [address] Med Refill Social History Tobacco Use Types [...] 50 MG tablet To be sent to: [facility] pharmacy documented in this encounter Plan of Treatment Upcoming Encounters Date Type Department Care Team (Late st Contact Info) Description 01/24/2025 2:00 PM EDT Clinical Support [facility] [address] [place] [address] Kira Bansla RN 01/24/2025 2:30 PM EDT Office Visit [facility] [address] [place] [address] Yecenia Frias FNP [address] [place] [address] documented as of this encounter Visit Diagnoses Not on filedocumented in this encounter Additional Health Concerns Assessment Noted Time PHQ-9 Depression Total Score: 0 10/24/19 25 1:15 PM EST documented as of this encounter Care Teams Inspector Water Pollution Control Relationship Specialty Start Date End Date Yecenia Frias FNP [address] [place] [address] PCP - General Family Medicine 04/26/24 Colby Hirsch FNP Nurse Practitioner Family Medicine 07/13/23 Candice Ugarte Help Desk TechnicianPuddler Pile Driving 12/27/23 documented as of this encounter
--- OUTSIDE RECORDS SUMMARY | 2025-01-01 14:06 | XMS_ITS | Encounter Summary ---
Author Organization [employer] Address [address] [facility] [address] 7[address] [place] [address] Care Team Providers Care Master Welder Name Role Phone Radha Shah PROFESSOR OF PHYSICS Primary Care Provider [phone] Colby Hirsch Unavailable Unavailable [facility] Primary Care Provider [phone] Reason for Visit * Reason Comments Med Refill Encounter Details Date Type Department Care Team (Late st Contact Info) Description 11/24/2023 Refill [facility] [address] [place] [address] Radha Shah FNP [address] [place] [address] Multiple joint pain Social History Tobacco Use [...] Description 01/24/2025 2:00 PM EDT Clinical Support [facility] [address] [place] [address] Kira Bansal RN 01/24/2025 2:30 PM EDT Office Visit [facility] [address] [place] [address] [place] FNP [address] [place] [address] documented as of this encounter Visit Diagnoses Diagnosis Multiple joint pain Pain in joint, multiple sites documented in this encounter Additional Health Concerns Assessment Noted Time PHQ-9 Depression Total Score: 8 09/02/19 24 11:12 AM EST documented as of this encounter Care Teams Master Welder Relationship Specialty Start Date End Date Radha Shah FNP [address] [place] [address] PCP - General Family Medicine 04/21/23 04/25/24 [place]enia whipple FNP [address] [place] [address] PCP - General Family Medicine 04/26/24 Colby Hirsch FNP [address] [place] [address] Nurse Practitioner Family Medicine 07/13/23 Candice Ugarte Lens BlockerHot Roll Laminator 12/27/23 documented as of this encounter
--- OUTSIDE RECORDS SUMMARY | 2025-01-01 14:06 | XMS_ITS | Encounter Summary ---
Author Organization [employer] Address [address] [facility] 7t [place] [address] Care Team Providers Care Product Marketing Specialist Name Role Phone Colby Hirsch MAINTENANCE ASSISTANT Unavailable Unavailable [facility] Primary Care Provider [phone] Reason for Visit * Reason Onset Date Comments Med Refill 2024 Encounter Details Date Type Department Care Team ([facility] st Contact Info) Description 2024 Telephone [facility] [address] [place] [address] [facility] [address] [place] [address] Med Refill Social History Tobacco Use Types [...] 50 MG tablet To be sent to: [facility] documented in this encounter Plan of Treatment Upcoming Encounters Date Type Department Care Team (Late st Contact Info) Description 01/24/2025 2:00 PM EDT Clinical Support [facility] [address] [place] [address] Kira Bansal RN 01/24/2025 2:30 PM EDT Office Visit [facility] [address] [place] [address] [place]ec[place] FNP [address] [place] [address] documented as of this encounter Visit Diagnoses Not on filedocumented in this encounter Additional Health Concerns Assessment Noted Time PHQ-9 Depression Total Score: 0 10/24/19 25 1:15 PM EST documented as of this encounter Care Teams Product Marketing Specialist Relationship Specialty Start Date End Date Yecenia Frias FNP [address] [place] [address] PCP - General Family Medicine 04/26/24 Colby Hirsch FNP Nurse Practitioner Family Medicine 07/13/23 Candice Ugarte PharmacognosistQuality Assurance Coach 12/27/23 documented as of this encounter
--- OUTSIDE RECORDS SUMMARY | 2025-01-01 14:06 | XMS_ITS | Clinical Summary ---
Author Organization [employer] Address [address] [facility] [address] [place] [address] Care Team Providers Care Link Cutter Name Role Phone Colby Hirsch SYSTEMS MANAGER Unavailable Unavailable [facility] SYSTEMS MANAGER Primary Care Provider [phone] Allergies Active Allergy Reactions Criticality Noted Date [...] MG tabletIndications :Major depression with psychotic features ([facility]) Take 1 tablet (7.5 mg) by mouth at bedtime. 30 tablet 1 024 Active risperiDONE (RisperDAL) 2 MG tabletIndications :Major Depressive Disorder Take 1 tablet (2 mg) by mouth at bedtime. 30 tablet 1 024 Active Blood Glucose Monitoring Suppl (Pushing InnovationStyle Lite) w/Device kitIndications:Ty pe 2 diabetes mellitus without complication, with long-term current use of insulin ([facility]) 1 Device 2 times daily. 1 [...] capsule 3 025 Active oxymetazoline (Afrin Nasal [place]) 0.05 % nasal sprayIndications: Viral upper respiratory illness Administer 2 sprays into each nostril every 12 (twelve) hours if needed for congestion for up to 2 days. Do not use for more than 3 days. 30 mL 025 Active Dulaglutide (Trulicity) 0.75 MG/0.5ML solution auto-injectorIndi cations:Type 2 diabetes mellitus without complication, with long-term current use of insulin ([facility]) Inject 0.75 mg under the skin [...] Active beta carotene (vitamin A) 3 MG (71683 UT) capsule TAKE 1 CAPSULE BY MOUTH [...] Discontinued beta carotene (vitamin A) 3 MG (18442 UT) capsule TAKE 1 CAPSULE BY MOUTH [...] mechanism to manage sxs, provided her with [facility] Crisis number for after hrs [...] skills discussed in session. She will contact [facility] crisis number as needed. Patient [...] in person with a female clinician in [place]. At this time Sacha Rodriguez meets criteria [...] >60 CM >60 CM Comment: NOTE: ??For -Slovak individuals, multiply the result ? by .Chronic Kidney Disease: ??Estimated GFR < 60 mL/min/1.11r2Upidmb Kidney Disease: ??Estimated GFR < 15 mL/min/1.73m2 [...] >60 CM >60 CM Comment: NOTE: ??For -Slovak individuals, multiply the result ? by .Chronic Kidney Disease: ??Estimated GFR < 60 mL/min/1.35w1Uyanow Kidney Disease: ??Estimated GFR < 15 mL/min/1.73m2 [...] retiring patient is now referred to new [facility] psychiatric provider. Pt is aware that appts will be via televisit and that provider will not be an [facility] employee. She gives permission to share [...] night at bedtime (not prn). Based on DRYING MACHINE TENDER notes, she appears to be taking Clonazepam [...] DEPARTMENT Provider, Generic External Data 01/01/2025 Telephone [facility] [address] [place] [address] PelzerYecenia FNP Med Refill 12/25/2024 Orders Only GENERIC EXTERNAL DATA DEPARTMENT Provider, Generic External Data 12/25/2024 Telephone [facility] [address] [place], [place] [phone] Eloisa Aragon NP 12/22/2024 1:20 PM EDT Office Visit [facility] [address] [place], [place] [phone] Bone pain (Primary Dx) 12/07/2024 11:20 AM EDT Office Visit [facility] [address] [address] Quin Victoria MD Left wrist pain (Primary Dx); Injury of left wrist, initial encounter 12/07/2024 Travel 2024 Telephone [facility] [address] [place] [address] Yecenia Frias, SYSTEMS MANAGER Med Refill 2024 Refill [facility] [address] [place] [address] Yecenia Frias, SYSTEMS MANAGER 12/04/2024 Refill [facility] [address] [place] [address] Yecenia Frias FNP Viral upper respiratory illness; Multiple joint pain 11/28/2024 Refill [facility] [address] [place] [address] Yecenia Frias, JACINTO Arthralgia, unspecified joint 11/27/2024 Telephone [facility] [address] [place] [address] Yecenia Frias SYSTEMS MANAGER Nurse Triage 11/14/2024 Patient Outreach [address] [place] [address] Yecenia Frias, SYSTEMS MANAGER Care Coordination (C3 -[facility] Kelly Obrien telephone call outreach) 11/14/2024 Patient Outreach [address] [place] [address] Yecenia Frias, SYSTEMS MANAGER Care Coordination 11/06/2024 Refill [facility] [address] [place] [address] Yecenia Frias FNP Multiple joint pain 11/03/2024 Population Health Risk Score [facility] Department [address] [place] [phone] Provider, Population Health Generic 10/31/2024 Patient Outreach [facility] [address] [place] [address] Yecenia Frias SYSTEMS MANAGER Care Coordination (C3 CM-[facility] Kelly Obrien telephone call outreach) 10/31/2024 Refill [facility] [address] [place] [address] Yecenia Frias FNP Type 2 diabetes mellitus without complication, with long-term current use of insulin (CMS/HCC) 10/27/2024 Telephone [facility] [address] [place] [phone] [facility] Results 10/27/2024 Orders Only [facility] [address] [place] [address] [facility] Other polyneuropathy (Primary Dx) 10/24/2024 1:00 PM EST Clinical Support [address] [address] Kira Bansal RN Chronic midline back pain, unspecified back location (Primary Dx) 10/24/[address] [address] Kira Bansal RN Chronic midline back pain, unspecified back location (Primary Dx) 10/24/2024 Travel 10/23/2024 1:00 PM EST Office Visit [address] [address] [facility] Type 2 diabetes mellitus without complication, with long-term current use of insulin (CMS/HCC) (Primary Dx); Other polyneuropathy; Dietary counseling; Exercise counseling; Encounter for immunization 10/23/2024 Travel 10/23/2024 Outside Procedure [facility] [address] [place] [phone] Glenn, Akila, OD Presbyopia of both eyes (Primary Dx) 10/20/2024 9:45 AM EST Office Visit [facility] [address] [place] [phone] Parveen Elizabethn, OD Regular astigmatism of both eyes (Primary Dx) 10/20/2024 Travel 10/13/2024 Patient Outreach [address] [address] [facility] Care Coordination (C3 -[facility] Kelly Obrien telephone call outreach ) 10/12/2024 2:00 PM EST Office Visit [facility] [address] [place] [address] [phone] Phillip Borrego, MYA 10/12/[address] [facility] [address] [place] [phone] Bethany Bond MD Results 10/12/2024 Orders Only [facility] [address] [place] [phone] Bethany Bond MD Urinary tract infection symptoms (Primary Dx) 10/11/2024 Patient Outreach [facility] [address] [place] [address] [phone] Yecenia Frias FNP Pre-visit Planning ((Unable to reach for PVP screening, LVM)) 10/11/2024 Refill [facility] [address] [place] [address] [phone] Yecenia Frias FNP Arthralgia, unspecified joint 10/10/2024 2:00 PM EST Office Visit [facility] [address] [place] [address] [phone] Bethany Bond MD Urinary tract infection symptoms [...] PM EDT Clinical Support [facility] [address] [place] [phone] Kira Bansal RN 01/24/2025 2:30 PM EDT Office Visit [facility] [address] [place] [phone] Pelzer, Yecenia, SYSTEMS MANAGER [address] [place] [address] Health Maintenance Due Date Last Done Comments [...] complication, with long-term current use of insulin ([facility]) POCT GLYCATED HEMOGLOBIN, TOTAL Routine 10/23/2024 1:15 PM EST Type 2 diabetes mellitus without complication, with long-term current use of insulin ([facility]) DENTURE ADJUSTMENT Routine 10/12/2024 2: 00 [...] Whole Blood 101 60 - 115 mg/dL [facility] Comment:METER #: [id number] Testing performed in the Endocrinology Department [address] , [address], [facility]. 01/01/2025 1:09 PM EDT 01/01/2025 1:12 PM EDT us Generic External Data Provider LAB BLOOD ORDERAB LES Final Result [facility] [address] [place] [phone] * SARS-CoV-2 RNA, Influenza A/B, and RSV RNA, Ql NAAT (12/25/2024 7:51 PM EDT) Influenza A PCR NEGATIVE Negative [facility] Influenza B PCR NEGATIVE Negative [facility] Resp Syncy Virus RNA Qual PCR NEGATIVE Negative [facility] SARS COV2 PCR NEGATIVE Negative [facility] Comment:All test results mus t be [...] use by authorized laboratories.Testing performed on the [employer] GeneXpert utilizingreal-time RT-PCR.All SARS CoV2 and positive influenza A/B results arereported to [facility]. 12/25/2024 7:51 PM EDT 12/25/2024 7:54 PM EDT us Generic External Data Provider LAB MICROBIOLOGY - GENERAL ORDERABLES Final Result [facility] [address] [place] [address] [phone] * (ABNORMAL) Vitamin D, 25-Hydroxy, Total, Immunoassay (12/22/2024 2:10 PM EDT) Vitamin D 25-OH Total 29.6(L) >30 ng/mL [facility] Comment: Health Based Reference Values*< 20 ??ng/mL ??Xxiphlhid65-96 ng/mL ??Insufficient> 30 ??ng/mL ??Sufficient*Hector GALE. N [...] 12/22/2024 4:04 PM EDT us Eloisa Aragon COTTON CONVERTER LAB BLOOD ORDERABLES Final Resu lt [facility] [address] [place] [phone] * (ABNORMAL) CBC auto differential (12/22/2024 2:10 PM EDT) White Blood Count 9.0 4.8 - 10.8 X10*3/uL [facility] Red Blood Count 4.52 4.20 - 5.50 X10*6/uL [facility] Hemoglobin 12.1 12.0 - 16.0 g/dl [facility] Hematocrit 37.6 37.0 - 47.0 % [facility] Mean Corpuscular Volume 83.2 80.0 - 98.0 fL [facility] Mean Corpuscular Hemoglobin 26.8(L) 27.0 - 33.0 pg [facility] Mean Corpuscular HGB Conc 32.2 31.0 - 35.0 g/dl [facility] Red Cell Distribution Width 13.6 11.0 - 16.0 % [facility] Platelet Count 265 160 - 400 X10*3/uL [facility] Mean Platelet Volume 10.4 9.4 - 12.3 fL [facility] Neutrophils Percent Auto 62.8 45 - 73 % [facility] Imm Gran Pct Auto 0.2 0.0 - 0.4 % [facility] Lymphocytes Percent Auto 29.1 20 - 40 % [facility] Monocytes Percent Auto 6.0 2 - 11 % [facility] Eosinophils Percent Auto 1.7 0 - 4 % [facility] Basophils Percent Auto 0.2 0 - 2 % [facility] NRBC Pct Auto 0.0 0.0 - 0.2 /100WBC [facility] Neutrophils Absolute Auto 5.6 2.0 - 8.3 x10*3/uL [facility] Imm Gran Abs Auto 0.02 0.00 - 0.03 X10*3/uL [facility] Lymphocytes Absolute Auto 2.6 1.2 - 4.9 X10*3/uL [facility] Monocytes Absolute Auto 0.5 0.1 - 1.2 X10*3/uL [facility] Eosinophils Absolute Auto 0.2 0.0 - 0.4 X10*3/uL [facility] Basophils Absolute Auto 0.0 0.0 - 0.2 X10*3/uL [facility] NRBC Abs Auto 0.000 0.0 - 0.012 X10*3/uL [facility] Blood Venous blood specimen / Unknown 12/22/2024 2:10 PM EDT 12/22/2024 4:04 PM EDT Eloisa Aragon COTTON CONVERTER LAB BLOOD ORDERABLES Final Resu lt [facility] [address] [place] [phone] * Comprehensive Metabolic Panel (12/22/2024 2:10 PM EDT) Sodium 142 135 - 145 mmol/L [facility] Potassium 3.5 3.3 - 5.1 mmol/L [facility] Chloride 107 96 - 108 mmol/L [facility] Carbon Dioxide 25 22 - 29 mmol/L [facility] Anion Gap 14 12 - 20 [facility] Urea Nitrogen (BUN) 10 9 - 16 mg/dL [facility] Creatinine, Serum 0.63 0.5 - 1.4 mg/dL [facility] Estimated Glomerular Filt Rate >60 [facility] Comment:Chronic Kidney Disea se: Estimated GFR < 60 mL/min/1.65d5Fitqjx Kidney Disease: Estimated GFR < 15 mL/min/1.73m2 Glucose 115 60 - 115 mg/dL [facility] Calcium 9.8 8.4 - 10.2 mg/dL [facility] Bilirubin, Total 0.4 0.0 - 1.0 mg/dL [facility] Aspartate Amino Transferase 26 5 - 31 U/L [facility] Alanine Aminotransferase 13 0 - 31 U/L [facility] Total Protein 7.5 6.5 - 8.0 g/dL [facility] Albumin Level 4.2 3.5 - 5.0 g/dL [facility] Alkaline Phosphatase 114 39 - 117 U/L [facility] Blood Venous blood specimen / Unknown 12/22/2024 2:10 PM EDT 12/22/2024 4:04 PM EDT Eloisa Aragon COTTON CONVERTER LAB BLOOD ORDERABLES Final Resu lt [facility] [address] [place] [phone] * XR Wrist 3+ Views Left (12/07/2024 11:57 AM EDT) Anatomical Region Laterality Modality Upper Extremities, Wrist Left Radiogr aphic Imaging 12/07/2024 11:5 7 AM EDT Narrative 12/07/2024 2:08 PM EDT ?[facility] ?[address] ?[place] [address] ?XRay Report ? Signed ? Patient: Sacha Contreras ?MR#: [id number] ?? [id number] ? : 1980 ?Acct:[id number] ? Age/Sex: 44 / F ?ADM Date: 04/17/25 ? Loc: HO.HHCX ? Attending Dr: Quin Victoria MD ? Ordering Physician: Quin Victoria MD ?? Date of Service: 12/07/24 ?? Procedure(s): XR wrist LT min 3V ?? Accession Number(s): [id number] ? cc: Quin Victoria MD ? EXAMINATION: [...] DD/ 1157 ? TD/TT: 12/07/24 1200 ? Forensic Sergeant: ? Procedure Note Sima, Image - 12/07/2024 [place] [address] XRay Report Signed Patient: Unique ContrerassMR#: [id number] : 1980Acct:[id number] Age/Sex: 44 / FADM Date: 12/07/24 Loc: HO.HHCX Attending Dr: Quin Victoria MD Ordering Physician: Quin Victoria MD Date of Service: 12/07/24 Procedure(s): XR wrist LT min 3V Accession Number(s): [id number] cc: Quin Victoria MD EXAMINATION: XR WRIST, [...] 12/07/24 1405 DD/ 1157 TD/TT: 12/07/24 1200 Forensic Sergeant: Quin Victoria MD IMG XR PROCEDURES Final Re sult * POCT CASSI-14 Urine Drug Screen (10/24/2024 1:02 PM EST) Urine Urine specimen obtained by clean catch procedure / Unknown 10/24/2024 1:02 PM EST Narrative Kira Bansal RN - 10/24/2024 1:02 PM EST UTOX cup Lot#[id number] Exp. 04/11/26 Internal Pass Control UTOX Negative for all substances. Cheryl Galan DO POINT OF CARE TEST ENTER/SANCHO T ORDERABLES Final Result * Vitamin B12/Folate, Serum Panel (10/23/2024 2:05 PM EST) Vitamin B12 273 200 - 900 pg/mL [facility] Comment:NORMAL 200-900 PG/ML INDETERMINATE 160-199 PG/ML DEFICIENT < 160 PG/ML Folate 11.9 > or = 4.0 ng/mL [facility] Comment:Reference Values:> o r = 4.0 ng/mL< 4.0 ng/mL suggests folate deficiency Methotrexate, aminopterin and folinic acid(leucovorin) are chemotherapeutic agents whose molecularstructures are similar to folate; therefore, the Architectfolate assay cannot be used for patients using these drugs. Blood Venous blood specimen / Unknown 10/23/2024 2:05 PM EST 10/23/2024 4:20 PM EST [facility] SYSTEMS MANAGER LAB BLOOD ORDERABLES Final Re sult [facility] [address] [place] [address] [phone] * TSH W/Reflex to FT4 (10/23/2024 2:05 PM EST) TSH reflex Free T4 1.74 0.32 - 4.0 uIU/mL [facility] Blood Venous blood specimen / Unknown 10/23/2024 2:05 PM EST 10/23/2024 4:20 PM EST [facility] LAB BLOOD ORDERABLES Final Re sult Performing Organization Address City/[facility]/ZIP Co de Phone Number [facility] [address] [place] [phone] * HIV-1/2 Antigen and Antibodies, Fourth Generation, with Reflexes (10/23/2024 2:05 PM EST) HIV AB/AG Nonreactive Nonreactive [facility] Comment:HIV-1 p24 Ag and/or HIV-1/HIV-2 Ab not detected.A test result that is nonreactive does not exclude thepossibility of exposure to or infection with HIV-1 and/orHIV-2. Nonreactive results in this assay for individualswith prior exposure to HIV-1 and/or HIV-2 may be due toantigen and antibody levels that are below the limit ofdetection of this assay.The [employer] HIV Ag/Ab Combo assay result andsupplemental assay results should be interpreted inconjunction with the patient's clinical presentation,history and other laboratory results. If the results areinconsistent with clinical evidence, additional testing issuggested to confirm the result. Blood Venous blood specimen / Unknown 10/23/2024 2:05 PM EST 10/23/2024 4:20 PM EST [facility] LAB BLOOD ORDERABLES Final Re sult Performing Organization Address City/[facility]/ZIP Co de Phone Number [facility] [address] [place] [phone] * Ferritin (10/23/2024 2:05 PM EST) Ferritin 126 10 - 250 ng/mL [facility] Blood Venous blood specimen / Unknown 10/23/2024 2:05 PM EST 10/23/2024 4:20 PM EST [facility] LAB BLOOD ORDERABLES Final Re sult Performing Organization Address [facility]/State/ZIP Co de Phone Number [facility] [address] [place] [phone] * POCT Glucose (10/23/2024 1:17 PM EST) Glucose Blood, POC 101 60 - 200 mg/dL Blood Capillary blood specimen / Unknown 10/23/2024 1:17 PM EST [facility] POINT OF CARE TEST ENTER/EDIT ORDERABLES Final Result * POCT HGB A1C (10/23/2024 1:15 PM EST) Hemoglobin A1C 5.7 4.0 - 6.0 % Blood 10/23/2024 1:15 PM EST [facility] POINT OF CARE TEST ENTER/EDIT ORDERABLES Final Result * Culture, Urine, Routine (10/10/2024 2:35 PM EST) Urine Urine specimen obtained by clean catch procedure / Unknown 10/10/2024 2:35 PM EST 10/10/2024 4:14 PM EST Comment:CC Narrative [facility] - 10/12/2024 7:44 AM EST Escherichia coli Quant > 100,000 cfu/mL Escherichia coli: Ampicillin >=32(R) Escherichia coli: Cefazolin (Urine) 8(S) Escherichia coli: Cefepime <=0.12(S) Escherichia coli: Ceftriaxone <=0.25(S) Escherichia coli: Ciprofloxacin <=0.06(S) Escherichia coli: Gentamicin >=16(R) Escherichia coli: Nitrofurantoin <=16(S) Escherichia coli: Trimethoprim/Sulfamethoxazole >=320(R) Specimen Source: Urine clean catch Bethany Ritchie MD LAB MICROBIOLOGY - GE NERAL ORDERABLES Final Result [facility] [address] [place], [place] [phone] * (ABNORMAL) POCT Urinalysis (10/10/2024 2:18 [...] 1:22 PM EST) Triglycerides 109 <150 mg/dL [facility] Comment:Desirable Triglyceri de: less than 150 mg/dLBorderline High Triglyceride 150-199 mg/dLHigh Triglyceride: 200-499 mg/dLVery High Triglyceride: greater than or equal to 5OO mg/dL Cholesterol 128 <200 mg/dL [facility] Comment:Desirable Cholestero l: less than 200 mg/dLBorderline High Cholesterol: 200-239 mg/dLHigh Cholesterol: greater than 239 mg/dL LDL Cholesterol Calculated 71 <100 mg/dL [facility] Comment:Desirable LDL: less than 100 mg/dLNear Optimal/Above Optimal LDL: 110- 129 mg/dLBorderline High LDL: 130-159 mg/dLHigh LDL: 160-189 mg/dLVery High LDL: greater than or equal to 190 mg/dL HDL Cholesterol 36(L) >40 mg/dL [facility] Comment:Desirable HDL: great er than 40 mg/dL Note: This HDL assay may give artificially low results in patients with liver disease. 09/25/2024 1:22 PM EST 09/25/2024 4:00 PM EST Generic External Data Provider LAB BLOOD ORDERAB LES Final Result Performing Organization Address [facility] de Phone Number [facility] [address] [place] [phone] * Albumin, Random Urine W/Creatinine (02/07/2024 2:09 PM EDT) Creatinine, Urine 164.92 mg/dL [facility] Microalbumin Urine 16.0 mg/L [facility] Microalbum Creatinine Ratio Ur 9.7 <30 ug/mg cr [facility] Comment:Albumin/Creatinine R atio Reference Ranges: Normal: < 30 ug/mg creatinine Microalbuminuria: 30 - 300 ug/mg creatinineClinical Albuminuria: > 300 ug/mg creatinine Urine (Urine, Random) 02/07/2024 2:09 PM EDT 02/07/2024 3:55 PM EDT Radha Shah SYSTEMS MANAGER LAB URINE ORDERABLES Final Resu lt Performing Organization Address [facility] de Phone Number [facility] [address] [place] [phone] * BI Mammogram Screening Tomosynthesis Bilateral (11/16/2023 1:25 PM EDT) Anatomical Region Laterality Modality Breast Bilateral Mammography 11/16/2023 1:25 PM EDT Narrative 12/02/2023 6:15 AM EDT ? [facility] [place] ? [address] ?[place] [address] ? Mammography Report ? Signed ? Patient: Roach Jennifer,Kayarybenigno ?MR#: [id number] ?? [id number] ? : 1980 ?Acct:[id number] ? Age/Sex: 42 / F ?ADM Date: 03/26/24 ? Loc: HO.MAMMO ? Attending Dr: Radha Shah COTTON CONVERTER ? Ordering Physician: Radha Shah COTTON CONVERTER ?Results: 1Negativ ?? e ? Date of Service: 11/16/23 ?Follow Up: 1 Year From Orig ?? inal Mammogram ? Procedure(s): MM tomosynthesis screening BI ?? Accession Number(s): [id number] ? cc: Radha Shah COTTON CONVERTER ? EXAMINATION: ?? MM SCREENING DIGITAL BREAST [...] 06 ? DD/ 1325 ? TD/TT: ? Forensic Sergeant: ? Procedure Note Donotuseinterpreter, Image - 12/02/2023 Ciaran [facility] [address] [place] [address] Mammography Report Signed Patient: Xavier ContrerasR#: [id number] : 1980Acct:[id number] Age/Sex: 42 / FADM Date: 11/16/23 Loc: HO.MAMMO Attending Dr: Radha Shah NP Ordering Physician: Radha Shah NPResults: 1Negativ e Date of Service: 11/16/23Follow Up: 1 Year From Orig ina Mammogram Procedure(s): MM tomosynthesis screening BI Accession Number(s): [id number] cc: Radha Shah NP EXAMINATION: MM SCREENING [...] in OV> 12/02/23 0611 DD/ 1325 TD/TT: Forensic Sergeant: Radhamargie Shah SYSTEMS MANAGER IMG BI PROCEDURES Final Result * (ABNORMAL) Hepatitis Panel, General (02/22/2023 1:46 PM EDT) Hepatitis A Antibody Total REACTIVE( A) NON-REACT TAWNYA [employer] [facility] Comment: For additional information, please refer to http://Bill.com/faq/ODJ165 (This link is being provided for informational/ educational purposes only.) Hepatitis B Surface Antibody QL REACTIVE( A) NON-REACT [place]WNYA [employer] [place] [facility] Hepatitis B Surface Ag NON-REACT TAWNYA NON-REACT TAWNYA [employer] [place] [facility] Comment: For additional information, please refer to http://Bill.com/faq/VKV655 (This link is being provided for informational/ educational purposes only.) Hepatitis B Core Antibody Total NON-REACT TAWNYA NON-REACT TAWNYA [employer] [place] [employer] Comment: For additional information, please refer to http://Bill.com/faq/YCU489 (This link is being provided for informational/ educational purposes only.) Hepatitis C Antibody NON-REACT TAWNYA NON-REACT TAWNYA [employer] [place] [facility] Comment: HCV antibody was non-reactive. There is no laboratory evidence of HCV infection. In most cases, no further action is required. However, if recent HCV exposure is suspected, a test for HCV RNA (test code 91107) is suggested. For additional information please refer to http://Bill.com/faq/SNW85o7 (This link is being provided for informational/ educational purposes only.) 02/22/2023 1:46 PM EDT 02/22/2023 1:46 PM EDT Narrative [facility] - 02/26/2023 7:51 PM EDT FASTING:NO FASTING: NO Marc GEIGER LAB BLOOD ORDERABLES Final Res ult [facility] [address] [place] [phone] [facility] [address] [place] [phone] from Last 3 Months or Most Recently Relevant to Health Maintenance Insurance [facility] C3 DENTAL-[facility] MEDICAID STAND ADULT Care Teams Link Cutter Relationship Specialty Start Date End Date Yecenia Frias FNP [address] [place] [address] PCP - General Family Medicine 04/26/24 Colby Hirsch FNP Nurse Practitioner Family Medicine 07/13/23 Candice Ugarte Food TechnologistAssortment Planner 12/27/23
--- OUTSIDE RECORDS SUMMARY | 2025-01-01 14:06 | XMS_ITS | Encounter Summary ---
Author Organization [employer] Address 75 [facility] 7t [place] [address] Care Team Providers Care Inker Name Role Phone Marc Nicolas Primary Care Provider Unavail able Radha Shah COPIER TECHNICIAN Primary Care Provider [phone] Colby Hirsch Unavailable Unavailable [facility] COPIER TECHNICIAN Primary Care Provider [phone] Reason for Visit * Reason Onset Date Comments Results 04/09/2023 Encounter Details Date Type Department Care Team (Late st Contact Info) Description 04/09/2023 Telephone [facility] [address] [place] [address] Marc Nicolas AGNP Results Social History Tobacco [...] AM EDT FYI T/C to pt. Through Cognii id - [id number] for below message. Pt. States she is having apt. With Dr. Sims on 05/03/2023 and wants to discuss on that day. Pt. Advised to give call back on [phone] if any questions or concerns. Pt. Verbally agreed and understood. Please review and advise if needed. * Telephone Encounter - Romeo Child - 04/09/2023 12:19 PM EDT Tc from pt requesting status on results for Liver that were done a moth ago pt states. Please contact pt at [phone] Wolof Speaker documented in this encounter Plan of Treatment Upcoming Encounters Date Type Department Care Team (Late st Contact Info) Description 01/24/2025 2:00 PM EDT Clinical Support [address] [address] Kira Bansal RN 01/24/2025 2:30 PM EDT Office Visit [facility] [address] [place] [address] StrasburgYecenia whipple FNP [address] [place] [address] documented as of this encounter Visit Diagnoses Not on filedocumented in this encounter Additional Health Concerns Assessment Noted Time PHQ-9 Depression Total Score: 0 04/02/20 23 2:10 PM EDT documented as of this encounter Care Teams Inker Relationship Specialty Start Date End Date Marc Nicolas AGNP PCP - General Family Medicine 10/22/22 04/20/23 Radha Shah FNP [address] [place] [address] PCP - General Family Medicine 04/21/23 04/25/24 Yecenia Frias FNP [address] [place] [address] PCP - General Family Medicine 04/26/24 Colby Hirsch FNP [address] [place] [address] Nurse Practitioner Family Medicine 07/13/23 Candice Ugarte Wind Energy Project ManagerDisplay Screen Fabricator 12/27/23 documented as of this encounter
--- OUTSIDE RECORDS SUMMARY | 2025-01-01 14:06 | XMS_ITS | Encounter Summary ---
Author Organization [employer] Address 75 [facility] 7t [place] [address] Care Team Providers Care Digital Sales Director Name Role Phone Colby Hirsch SERVICE COUNTER CASHIER Unavailable Unavailable [facility] SERVICE COUNTER CASHIER Primary Care Provider [phone] Encounter Details Date Type Department Care Team (Late st Contact Info) Description 01/01/2025 Orders Only GENERIC EXTERNAL DATA [...] 01/24/2025 2:00 PM EDT Clinical Support [facility] [address] [place] [address] Kira Bansal RN 01/24/2025 2:30 PM EDT Office Visit [facility] [address] [place] [address] Sylvan GroveYecenia FNP [address] [place] [address] documented as of this encounter Procedures Procedure Name Priority Date/Time Associated Diagnosis Comments GLUCOSE, WHOLE BLOOD Routine 01/01/2025 1:09 PM EDT documented in this encounter Results * Glucose, Whole Blood (01/01/2025 1:09 PM EDT) Glucose, Whole Blood 101 60 - 115 mg/dL [facility] Comment:METER #: [id number] Testing performed in the Endocrinology Department [address] , [address], [place]. 01/01/2025 1:09 PM EDT 01/01/2025 1:12 PM EDT us Generic External Data Provider LAB BLOOD ORDERAB LES Final Result [facility] [address] [place] [address] [place] [phone] documented in this encounter Visit Diagnoses Not on filedocumented in this encounter Additional Health Concerns Assessment Noted Time PHQ-9 Depression Total Score: 0 10/24/19 25 1:15 PM EST documented as of this encounter Care Teams Digital Sales Director Relationship Specialty Start Date End Date Yecenia Frias FNP [address] [place] [address] PCP - General Family Medicine 04/26/24 Colby Hirsch FNP Nurse Practitioner Family Medicine 07/13/23 Candice Ugarte Unit AidAppetizer Packer 12/27/23 documented as of this encounter
--- OUTSIDE RECORDS SUMMARY | 2025-01-01 14:06 | XMS_ITS | Encounter Summary ---
Author Organization [employer] Address 75 [facility] 7t [place] [address] Care Team Providers Care Crust Sorter Name Role Phone Radha Shah [facility] Primary Care Provider [phone] Colby Hirsch HOUSING COUNSELOR Unavailable Unavailable [facility] Primary Care Provider [phone] Reason for Visit * Reason Comments Med Refill Encounter Details Date Type Department Care Team (Late st Contact Info) Description 06/04/2023 Refill [facility] [address] [place] [address] Marilee Buckner FNP [address] [place] [address] Dept [place] [address] Multiple joint pain; Mixed anxiety and depressive [...] 01/24/2025 2:00 PM EDT Clinical Support [facility] [address] [place] [address] Kira Bansal RN 01/24/2025 2:30 PM EDT Office Visit [facility] [address] [place] [address] [place] [address] [address] [address] documented as of this encounter Visit Diagnoses Diagnosis Multiple joint pain Pain in joint, multiple sites Mixed anxiety and depressive disorder Dysthymic disorder documented in this encounter Additional Health Concerns Assessment Noted Time PHQ-9 Depression Total Score: 0 04/02/20 23 2:10 PM EDT documented as of this encounter Care Teams Crust Sorter Relationship Specialty Start Date End Date Radha Shah FNP [address] [place] [address] PCP - General Family Medicine 04/21/23 04/25/24 AltagraciaYecenia whipple FNP [address] [place] [address] PCP - General Family Medicine 04/26/24 Colby Hirsch FNP [address] [place] [address] Nurse Practitioner Family Medicine 07/13/23 Candice Ugarte Rocket Engine MechanicBusiness Banking Manager 12/27/23 documented as of this encounter
--- OUTSIDE RECORDS SUMMARY | 2025-01-01 14:06 | XMS_ITS | Encounter Summary ---
Author Organization [employer] Address [address] [facility] [address] 7t [place] [address] Care Team Providers Care Roller Picker Name Role Phone Radha Shah DATABASE MARKETING SPECIALIST Primary Care Provider [phone] Colby Hirsch Unavailable Unavailable [facility] Primary Care Provider [phone] Reason for Visit * Reason Comments Med Refill Encounter Details Date Type Department Care Team (Late st Contact Info) Description 04/12/[address] [facility] [address] [place] [address] Radha Shah FNP [address] [place] [address] Multiple joint pain Social History Tobacco Use [...] Description 01/24/2025 2:00 PM EDT Clinical Support [facility] [address] [place] [address] Kira Bansal RN 01/24/2025 2:30 PM EDT Office Visit [facility] [address] [place] [address] AltagraciaYecenia whipple FNP [address] [place] [address] documented as of this encounter Visit Diagnoses Diagnosis Multiple joint pain Pain in joint, multiple sites documented in this encounter Additional Health Concerns Assessment Noted Time PHQ-9 Depression Total Score: 7 03/07/20 24 10:13 AM EDT documented as of this encounter Care Teams Roller Picker Relationship Specialty Start Date End Date Radha Shah FNP [address] [place] [address] PCP - General Family Medicine 04/21/23 04/25/24 Yecenia Frias FNP [address] [place] [address] PCP - General Family Medicine 04/26/24 Colby Hirsch FNP [address] [place] [address] Nurse Practitioner Family Medicine 07/13/23 Candice Ugarte Field Artillery Operations SpecialistLotteries Agent 12/27/23 documented as of this encounter
--- OUTSIDE RECORDS SUMMARY | 2025-01-01 14:06 | XMS_ITS | Encounter Summary ---
Author Organization [employer] Address [address] [facility] [address] 7t [place] [address] Care Team Providers Care Oil Field Technician Name Role Phone Ruth Hoffmann MODEL MAKING SUPERVISOR Primary Care Provider Marc Nava Primary Care Provider Unavail able Radha Shah MODEL MAKING SUPERVISOR Primary Care Provider [phone] Colby HirschP Unavailable Unavailable [facility] MODEL MAKING SUPERVISOR Primary Care Provider [phone] Reason for Visit * Reason Onset Date Comments Appointment Request 10/01/2022 Encounter Details Date Type Department Care Team (Late st Contact Info) Description 10/01/2022 Telephone [facility] [address] [place] [address] Ruth Hoffmann FNP Appointment Request Social History [...] 01/24/2025 2:00 PM EDT Clinical Support [address] [address] Kira Bansal RN 01/24/2025 2:30 PM EDT Office Visit [address] [address] Yecenia Frias FNP [address] [place] [address] documented as of this encounter Visit Diagnoses Not on filedocumented in this encounter Care Teams Oil Field Technician Relationship Specialty Start Date End Date Ruth Hoffmann FNP PCP - General Family Medicine 07/21/22 10/21/22 Marc Nicolas AGNP PCP - General Family Medicine 10/22/22 04/20/23 Radha Shah FNP [address] [place] [address] PCP - General Family Medicine 04/21/23 04/25/24 Yecenia Frias FNP [address] [place] [address] PCP - General Family Medicine 04/26/24 Colby Hirsch FNP [address] [place] [address] Nurse Practitioner Family Medicine 07/13/23 Candice Ugarte Tattoo IdentifierGeothermal Powerplant Mechanic 12/27/23 documented as of this encounter
--- OUTSIDE RECORDS SUMMARY | 2025-01-01 14:07 | XMS_ITS | Encounter Summary ---
Author Organization [employer] Address [address] [facility] [address] 7t [place] [address] Care Team Providers Care Parachute Inspector Name Role Phone Radha Shah AUTOMOTIVE DIAGNOSTIC TECHNICIAN Primary Care Provider [phone] Colby Hirsch Unavailable Unavailable [facility] AUTOMOTIVE DIAGNOSTIC TECHNICIAN Primary Care Provider [phone] Encounter Details Date Type Department Care Team (Late st Contact Info) Description 04/24/2024 Orders Only [facility] [address] [place] [address] Radha Shah FNP [address] [place] [address] Elevated lipids (Primary Dx) Social History Tobacco [...] 01/24/2025 2:00 PM EDT Clinical Support [facility]ICINE [address] [place] [address] Kira Bansal RN 01/24/2025 2:30 PM EDT Office Visit [address] [address] MaryvilleYecenia FNP [address] [place] [address] documented as of this encounter Procedures Procedure Name Priority Date/Time Associated Diagnosis Comments LIPID PANEL, STANDARD Routine 05/12/2024 11:00 AM EDT Elevated lipids documented in this encounter Results * (ABNORMAL) Lipid Panel, Standard (05/12/2024 11:00 AM EDT) Triglycerides 100 <150 mg/dL [facility] Comment:Desirable Triglyceri de: less than 150 mg/dLBorderline High Triglyceride 150-199 mg/dLHigh Triglyceride: 200-499 mg/dLVery High Triglyceride: greater than or equal to 5OO mg/dL Cholesterol 101 <200 mg/dL [facility] Comment:Desirable Cholestero l: less than 200 mg/dLBorderline High Cholesterol: 200-239 mg/dLHigh Cholesterol: greater than 239 mg/dL LDL Cholesterol Calculated 44 <100 mg/dL [facility] Comment:Desirable LDL: less than 100 mg/dLNear Optimal/Above Optimal LDL: 110- 129 mg/dLBorderline High LDL: 130-159 mg/dLHigh LDL: 160-189 mg/dLVery High LDL: greater than or equal to 190 mg/dL HDL Cholesterol 37(L) >40 mg/dL [facility] Comment:Desirable HDL: great er than 40 mg/dL Note: This HDL assay may give artificially low results in patients with liver disease. Blood Venous blood specimen / Unknown 05/12/2024 11:00 AM EDT 05/12/2024 11:00 AM EDT Radha CASEY LAB BLOOD ORDERABLES Final Resu lt [facility] [address] [place] [address] [phone] documented in this encounter Visit Diagnoses Diagnosis Elevated lipids- Primary documented in this encounter Additional Health Concerns Assessment Noted Time PHQ-9 Depression Total Score: 7 03/07/20 24 10:13 AM EDT documented as of this encounter Care Teams Parachute Inspector Relationship Specialty Start Date End Date Radha Shah FNP [address] [place] [address] PCP - General Family Medicine 04/21/23 04/25/24 MaryvilleYecenia FNP [address] [place] [address] PCP - General Family Medicine 04/26/24 Colby Hirsch FNP [address] [place] [address] Nurse Practitioner Family Medicine 07/13/23 Candice Ugarte Consulting Systems EngineerRibbon Cleaner 12/27/23 documented as of this encounter
--- OUTSIDE RECORDS SUMMARY | 2025-01-01 14:07 | XMS_ITS | Encounter Summary ---
Author Organization [employer] Address [address] [facility] [address] 7t [place] [address] Care Team Providers Care Stonework Tracer Name Role Phone Radha Shah RUBBING BED OPERATOR Primary Care Provider [phone] Colby Hirsch Unavailable Unavailable [facility] Primary Care Provider [phone] Encounter Details Date Type Department Care Team (Late st Contact Info) Description 02/17/2024 Community Care Management [facility] MED[facility]INE [address] [place] [address] Radha Shah FNP [address] [place] [address] Social History Tobacco Use Types Packs/Day Years [...] Description 01/24/2025 2:00 PM EDT Clinical Support [address] [address] Kira Bansal RN 01/24/2025 2:30 PM EDT Office Visit [address] [address] Yecenia Frias FNP [address] [place] [address] documented as of this encounter Visit Diagnoses Not on filedocumented in this encounter Additional Health Concerns Assessment Noted Time PHQ-9 Depression Total Score: 6 12/28/19 24 11:17 AM EDT documented as of this encounter Care Teams Stonework Tracer Relationship Specialty Start Date End Date Radha Shah FNP [address] [place] [address] PCP - General Family Medicine 04/21/23 04/25/24 Yecenia Frias FNP [address] [place] [address] PCP - General Family Medicine 04/26/24 Colby Hirsch FNP [address] [place] [address] Nurse Practitioner Family Medicine 07/13/23 Candice Ugarte Armed Custom Protection OfficerCopy Lathe Operator 12/27/23 documented as of this encounter
--- OUTSIDE RECORDS SUMMARY | 2025-01-01 14:07 | XMS_ITS | Encounter Summary ---
Author Organization [employer] Address [address] [facility] [address] 7t [place] [address] Care Team Providers Care Felt Coverer Name Role Phone Radha Shah PATIENT REGISTRATION REP Primary Care Provider [phone] Colby Hirsch PATIENT REGISTRATION REP Unavailable Unavailable [facility] PATIENT REGISTRATION REP Primary Care Provider [phone] Reason for Visit * Reason Comments Med Refill Encounter Details Date Type Department Care Team (Late st Contact Info) Description 06/16/2023 Refill [facility] [address] [place] [address] Marc Nicolas AGNP Pain Social History Tobacco [...] Description 01/24/2025 2:00 PM EDT Clinical Support [address] [address] Kira Bansal RN 01/24/2025 2:30 PM EDT Office Visit [address] [address] AltagraciaYecenia whipple FNP [address] [place] [address] documented as of this encounter Visit Diagnoses Diagnosis Pain Generalized pain documented in this encounter Additional Health Concerns Assessment Noted Time PHQ-9 Depression Total Score: 6 06/15/20 23 10:23 AM EDT documented as of this encounter Care Teams Felt Coverer Relationship Specialty Start Date End Date Radha Shah FNP [address] [place] [address] PCP - General Family Medicine 04/21/23 04/25/24 Bry[address]Yecenia FNP [address] [place] [address] PCP - General Family Medicine 04/26/24 Colby Hirsch FNP [address] [place] [address] Nurse Practitioner Family Medicine 07/13/23 Candice Ugarte Traffic Incident Management ManagerDock Operations Supervisor 12/27/23 documented as of this encounter
--- OUTSIDE RECORDS SUMMARY | 2025-01-01 14:07 | XMS_ITS | Encounter Summary ---
Author Organization [employer] Address 75 [facility] 7t [place] [address] Care Team Providers Care Dental Detail Representative Name Role Phone Marc Nicolas Primary Care Provider Unavail able Radha Shah Primary Care Provider [phone] Colby Hirsch Unavailable Unavailable [facility] BIN OPERATOR Primary Care Provider [phone] Reason for Visit * Reason Onset Date Comments Med Refill 04/09/2023 Encounter Details Date Type Department Care Team (Late st Contact Info) Description 04/09/2023 Refill [facility] [address] [place] [address] Marc Nicolas AGNP Mixed anxiety and depressive [...] listed in EHR, no record. Spoke with [facility] pharmacy, she is listed as [...] (KlonoPIN) 0.5 MG tablet Please sent to [facility] - [place], [place] - [address] [place] [address] documented in this encounter Plan of Treatment Upcoming Encounters Date Type Department Care Team (Late st Contact Info) Description 01/24/2025 2:00 PM EDT Clinical Support [facility]INE [address] [place] [address] Kria Bansal RN 01/24/2025 2:30 PM EDT Office Visit [facility] [address] [place] [address] Yecenia Frias FNP [address] [place] [address] documented as of this encounter Visit Diagnoses Diagnosis Mixed anxiety and depressive disorder Dysthymic disorder documented in this encounter Additional Health Concerns Assessment Noted Time PHQ-9 Depression Total Score: 0 04/02/20 2:10 PM EDT documented as of this encounter Care Teams Dental Detail Representative Relationship Specialty Start Date End Date Marc Nicolas AGNP PCP - General Family Medicine 10/22/22 04/20/23 Radha Shah FNP [address] [place] [address] PCP - General Family Medicine 04/21/23 04/25/24 Yecenia Frias FNP [address] [place] [address] PCP - General Family Medicine 04/26/24 Colby Hirsch FNP [address] [place] [address] Nurse Practitioner Family Medicine 07/13/23 Candice Ugarte Hospital MonitorVendor Analyst 12/27/23 documented as of this encounter
--- OUTSIDE RECORDS SUMMARY | 2025-01-01 14:07 | XMS_ITS | Encounter Summary ---
Author Organization [employer] Address [address] [facility] [address] 7t [place] [address] Care Team Providers Care General Office Clerk Name Role Phone PabloRadha ADDRESS CHANGE CLERK Primary Care Provider [phone] Colby Hirsch Unavailable Unavailable [facility] Primary Care Provider [phone] Reason for Visit * Reason Comments Med Refill Encounter Details Date Type Department Care Team (Late st Contact Info) Description 01/04/2024 Refill [facility] [address] [place] [address] Colby Hirsch FNP Social History Tobacco Use [...] Description 01/24/2025 2:00 PM EDT Clinical Support [address] [address] Kira Bansal RN 01/24/2025 2:30 PM EDT Office Visit [facility] [address] [place] [address] Yecenia Frias FNP [address] [place] [address] documented as of this encounter Visit Diagnoses Not on filedocumented in this encounter Additional Health Concerns Assessment Noted Time PHQ-9 Depression Total Score: 6 12/28/19 24 11:17 AM EDT documented as of this encounter Care Teams General Office Clerk Relationship Specialty Start Date End Date Radha Shah FNP [address] [place] [address] PCP - General Family Medicine 04/21/23 04/25/24 McnabbYecenia whipple FNP [address] [place] [address] PCP - General Family Medicine 04/26/24 Colby Hirsch FNP [address] [place] [address] Nurse Practitioner Family Medicine 07/13/23 Candice Ugarte Sales Agent Marine InsuranceLine Construction Superintendent 12/27/23 documented as of this encounter
--- OUTSIDE RECORDS SUMMARY | 2025-01-01 14:07 | XMS_ITS | Encounter Summary ---
Author Organization [employer] Address [address] [facility] [address] 7t [place] [address] Care Team Providers Care Manager Placement Name Role Phone Radha Shah ACID CONDITIONER Primary Care Provider [phone] Colby Hirsch Unavailable Unavailable [facility] Primary Care Provider [phone] Reason for Visit * Reason Comments Med Refill Encounter Details Date Type Department Care Team (Late st Contact Info) Description 06/30/2023 Refill [facility] [address] [place] [address] Radha Shah FNP [address] [place] [address] Multiple joint pain Social History Tobacco Use [...] 2:00 PM EDT Clinical Support [facility] [address] [place] [address] Kira Bansal RN 01/24/2025 2:30 PM EDT Office Visit [facility] [address] [place] [address] [address] [address] documented as of this encounter Visit Diagnoses Diagnosis Multiple joint pain Pain in joint, multiple sites documented in this encounter Additional Health Concerns Assessment Noted Time PHQ-9 Depression Total Score: 6 06/15/20 23 10:23 AM EDT documented as of this encounter Care Teams Manager Placement Relationship Specialty Start Date End Date Radha Shah FNP [address] [place] [address] PCP - General Family Medicine 04/21/23 04/25/24 HaskinsYecenia whipple FNP [address] [place] [address] PCP - General Family Medicine 04/26/24 Colby Hirsch FNP [address] [place] [address] Nurse Practitioner Family Medicine 07/13/23 Candice Ugarte Well TesterSix Horse Hitch Driver 12/27/23 documented as of this encounter
--- OUTSIDE RECORDS SUMMARY | 2025-01-01 14:07 | XMS_ITS | Encounter Summary ---
Author Organization [employer] Address 75 [facility] 7t [place] [address] Care Team Providers Care Deaf And Hard Of Hearing Teacher Name Role Phone Colby Hirsch CHIEF OPERATIONS OFFICER Unavailable Unavailable [facility] Primary Care Provider [phone] Reason for Visit * Reason Onset Date Comments FYI 06/23/2024 Encounter Details Date Type Department Care Team ([facility] st Contact Info) Description 06/23/2024 Telephone [facility] MEDICINE [address] [place] [address] [facility] 230 [place] [address] Social History Tobacco Use Types Packs/Day Years [...] AM EDT Tc from Maribel at [facility] calling inform provider pt cancelled appointment with did not want to r/s. If any questions contact Maribel at [phone] documented in this encounter Plan of Treatment Upcoming Encounters Date Type Department Care Team ([facility] st Contact Info) Description 01/24/2025 2:00 PM EDT Clinical Support [facility] MEDICINE [address] [place] [address] Kira Bansal RN 01/24/2025 2:30 PM EDT Office Visit [facility] [address] [place] [address] Yecenia Frias FNP [address] [place] [address] documented as of this encounter Visit Diagnoses Not on filedocumented in this encounter Additional Health Concerns Assessment Noted Time PHQ-9 Depression Total Score: 7 03/07/20 24 10:13 AM EDT documented as of this encounter Care Teams Deaf And Hard Of Hearing Teacher Relationship Specialty Start Date End Date Yecenia Frias FNP [address] [place] [address] PCP - General Family Medicine 04/26/24 Colby Hirsch FNP Nurse Practitioner Family Medicine 07/13/23 Candice Ugarte Product Mgmt Dev ManagerGlass Decorator 12/27/23 documented as of this encounter
--- OUTSIDE RECORDS SUMMARY | 2025-01-01 14:07 | XMS_ITS | Encounter Summary ---
Author Organization [employer] Address [address] [facility] [address] 7t [place] [address] Care Team Providers Care Milk Wagon Driver Name Role Phone Marc Nicolas Primary Care Provider Unavail able Radha Shah PRODUCTION SUPPORT CONSULTANT Primary Care Provider [phone] Colby HirschP Unavailable Unavailable [facility] PRODUCTION SUPPORT CONSULTANT Primary Care Provider [phone] Reason for Visit * Reason Onset Date Comments Med Refill 03/10/2023 Encounter Details Date Type Department Care Team ([facility] Contact Info) Description 03/10/[address] [phone] Marc Nicolas AGNP Med Refill Social History [...] Upcoming Encounters Date Type Department Care Team ([facility] Contact Info) Description 01/24/2025 2:00 PM EDT Clinical Support [address] [address] Kira Bansal RN 01/24/2025 2:30 PM EDT Office Visit [facility] MEDICINE 230 [place] [address] Yecenia Frias FNP 230 [place] [address] documented as of this encounter Visit Diagnoses Not on filedocumented in this encounter Additional Health Concerns Assessment Noted Time PHQ-9 Depression Total Score: 13 023 3:27 PM EDT documented as of this encounter Care Teams Milk Wagon Driver Relationship Specialty Start Date End Date Marc Nicolas AGNP PCP - General Family Medicine 10/22/22 04/20/23 Radha [place] [address] PCP - General Family Medicine 04/21/23 04/25/24 Yecenia Frias FNP [address] [place] [address] PCP - General Family Medicine 04/26/24 Colby Hirsch FNP [address] [place] [address] Nurse Practitioner Family Medicine 07/13/23 Candice Ugarte Referral NurseGeology Instructor 12/27/23 documented as of this encounter
--- OUTSIDE RECORDS SUMMARY | 2025-01-01 14:07 | XMS_ITS | Encounter Summary ---
Author Organization [employer] Address 75 [facility] [address] 7t [place] [address] Care Team Providers Care Director Of Academic Support Name Role Phone Radha Shah COMMUNITY RESOURCE CONSULTANT Primary Care Provider [phone] Colby Hirsch Unavailable Unavailable [facility] Primary Care Provider [phone] Reason for Visit * Reason Comments Med Refill Encounter Details Date Type Department Care Team ([facility] st Contact Info) Description 07/02/2023 Refill [facility] [address] [place] [address] Radha Shah FNP [address] [place] [address] Multiple joint pain Social History Tobacco Use [...] PM EDT Clinical Support [facility] [address] [place] [address] Kira Bansal RN 01/24/2025 2:30 PM EDT Office Visit [facility] [address] [place] [address] Inter[address]ecenia [address] [address] documented as of this encounter Visit Diagnoses Diagnosis Multiple joint pain Pain in joint, multiple sites documented in this encounter Additional Health Concerns Assessment Noted Time PHQ-9 Depression Total Score: 6 06/15/20 23 10:23 AM EDT documented as of this encounter Care Teams Director Of Academic Support Relationship Specialty Start Date End Date Radha Shah FNP [address] [place] [address] PCP - General Family Medicine 04/21/23 04/25/24 IntervaleYecenia whipple FNP [address] [place] [address] PCP - General Family Medicine 04/26/24 Colby Hirsch FNP [address] [place] [address] Nurse Practitioner Family Medicine 07/13/23 Candice Ugarte Regional Construction ManagerAir Deodorizer Servicer 12/27/23 documented as of this encounter
--- OUTSIDE RECORDS SUMMARY | 2025-01-01 14:07 | XMS_ITS | Encounter Summary ---
Author Organization [employer] Address 75 [facility] 7t [place] [address] Care Team Providers Care Survey Research Center Director Name Role Phone Radha Shah [facility] Primary Care Provider [phone] Colby Hirsch DONATIONS ATTENDANT Unavailable Unavailable [facility] Primary Care Provider [phone] Reason for Visit * Reason Comments Med Refill Encounter Details Date Type Department Care Team (Late st Contact Info) Description 06/09/2023 Refill [facility] [address] [place] [address] Marilee Buckner FNP [address] [place] [address] [place] [address] Multiple joint pain; Mixed anxiety and depressive [...] 2:00 PM EDT Clinical Support [facility] [address] [place] [address] Kira Bansal RN 01/24/2025 2:30 PM EDT Office Visit [facility] [address] [place] [address] [address] [address] documented as of this encounter Visit Diagnoses Diagnosis Multiple joint pain Pain in joint, multiple sites Mixed anxiety and depressive disorder Dysthymic disorder documented in this encounter Additional Health Concerns Assessment Noted Time PHQ-9 Depression Total Score: 18 023 11:25 AM EDT documented as of this encounter Care Teams Survey Research Center Director Relationship Specialty Start Date End Date Radha Shah FNP [address] [place] [address] PCP - General Family Medicine 04/21/23 04/25/24 DonieYecenia whipple FNP [address] [place] [address] PCP - General Family Medicine 04/26/24 Colby Hirsch FNP [address] [place] [address] Nurse Practitioner Family Medicine 07/13/23 Candice Ugarte Commercial CounselJunior Administrative Assistant 12/27/23 documented as of this encounter
--- OUTSIDE RECORDS SUMMARY | 2025-01-01 14:07 | XMS_ITS | Encounter Summary ---
Author Organization [employer] Address 75 [facility] 7t [place] [address] Care Team Providers Care Silhouette Artist Name Role Phone Marc Nicolas Primary Care Provider Unavail able Radha Shah LEAD SOLUTIONS ARCHITECT Primary Care Provider [phone] Colby Hirsch Unavailable Unavailable [facility] LEAD SOLUTIONS ARCHITECT Primary Care Provider Reason for Visit * Reason Comments Med Refill Encounter Details Date Type Department Care Team (Late Contact Info) Description 03/10/2023 Refill [facility] [address] [place] [address] Marc Nicolas AGNP Mixed anxiety and depressive [...] Description 01/24/2025 2:00 PM EDT Clinical Support [facility] MEDICINE [address] [place] [address] Kira Bansal RN 01/24/2025 2:30 PM EDT Office Visit [facility] MED[facility] [address] [place] [address] Yecenia Frias FNP 230 [place] [address] documented as of this encounter Visit Diagnoses Diagnosis Mixed anxiety and depressive disorder Dysthymic disorder documented in this encounter Additional Health Concerns Assessment Noted Time PHQ-9 Depression Total Score: 13 023 3:27 PM EDT documented as of this encounter Care Teams Silhouette Artist Relationship Specialty Start Date End Date Marc Nicolas AGNP PCP - General Family Medicine 10/22/22 04/20/23 [place] [address] PCP - General Family Medicine 04/21/23 04/25/24 [place] [address] PCP - General Family Medicine 04/26/24 Colyb Hirsch FNP [address] [place] [address] Nurse Practitioner Family Medicine 07/13/23 Candice Ugarte Insurance Follow Up RepresentativePipelayer 12/27/23 documented as of this encounter
--- OUTSIDE RECORDS SUMMARY | 2025-01-01 14:07 | XMS_ITS | Encounter Summary ---
Author Organization [employer] Address 75 [facility] 7t [place] [address] Care Team Providers Care Siebel Crm Developer Name Role Phone Marc Nicolas Primary Care Provider Unavail able Radha Shah PATIENT ACCESS COORDINATOR Primary Care Provider [phone] Colby Hirsch Unavailable Unavailable [facility] PATIENT ACCESS COORDINATOR Primary Care Provider [phone] Reason for Visit * Reason Comments Med Refill Encounter Details Date Type Department Care Team (Late Contact Info) Description 04/08/2023 Refill [facility] [address] [place] [address] Marc Nicolas AGNP Schizoaffective disorder, depressive type [...] Description 01/24/2025 2:00 PM EDT Clinical Support [facility] [address] [place], [place] [phone] Kira Bansal RN 01/24/2025 2:30 PM EDT Office Visit [facility] [address] [place] [address] Yecenia Frias FNP 230 [place] [address] documented as of this encounter Visit Diagnoses Diagnosis Schizoaffective disorder, depressive type (CMS/HCC) Schizoaffective disorder, unspecified condition Mixed anxiety and depressive disorder Dysthymic disorder documented in this encounter Additional Health Concerns Assessment Noted Time PHQ-9 Depression Total Score: 0 04/02/20 2:10 PM EDT documented as of this encounter Care Teams Siebel Crm Developer Relationship Specialty Start Date End Date Marc Nicolas AGNP PCP - General Family Medicine 10/22/22 04/20/23 Radha Shah FNP [address] [place] [address] PCP - General Family Medicine 04/21/23 04/25/24 Yecenia Frias FNP [address] [place] [address] PCP - General Family Medicine 04/26/24 Colby Hirsch FNP [address] [place] [address] Nurse Practitioner Family Medicine 07/13/23 Candice Ugarte Auto RebuilderAcidity Tester 12/27/23 documented as of this encounter
--- OUTSIDE RECORDS SUMMARY | 2025-01-01 14:07 | XMS_ITS | Encounter Summary ---
Author Organization [employer] Address [address] [facility] [facility] [address] 7t [place] [address] Care Team Providers Care Machine Repair Person Name Role Phone Radha Shah CONCESSION WORKER Primary Care Provider [phone] Colby Hirsch CONCESSION WORKER Unavailable Unavailable [facility] CONCESSION WORKER Primary Care Provider [phone] Reason for Visit * Reason Comments Med Refill Encounter Details Date Type Department Care Team (Late st Contact Info) Description 06/28/2023 Refill [facility]EDS [address] [place] [address] Radha Shah FNP [address] [place] [address] Schizoaffective disorder, depressive type (CMS/HCC) Social History [...] 01/24/2025 2:00 PM EDT Clinical Support [facility] MEDICINE [address] [place] [address] Kira Bansal RN 01/24/2025 2:30 PM EDT Office Visit [address] [address] Yecenia Frias [address] [address] documented as of this encounter Visit Diagnoses Diagnosis Schizoaffective disorder, depressive type ([facility]) Schizoaffective disorder, unspecified condition documented in this encounter Additional Health Concerns Assessment Noted Time PHQ-9 Depression Total Score: 6 06/15/20 23 10:23 AM EDT documented as of this encounter Care Teams Machine Repair Person Relationship Specialty Start Date End Date Radha Shah FNP [address] [place] [address] PCP - General Family Medicine 04/21/23 04/25/24 Yecenia Frias FNP [address] [place] [address] PCP - General Family Medicine 04/26/24 Colby Hirsch FNP 230 [place] [address] Nurse Practitioner Family Medicine 07/13/23 Candice Ugarte Patient Experience CoordinatorFiber Heel Piece Shaper 12/27/23 documented as of this encounter
--- OUTSIDE RECORDS SUMMARY | 2025-01-01 14:07 | XMS_ITS | Encounter Summary ---
Author Organization [employer] Address [address] [facility] [address] 7t [place] [address] Care Team Providers Care Cardiology Rn Name Role Phone Marc Nicolas Primary Care Provider Unavail able Radha Shah FOOD SERVICE COORDINATOR Primary Care Provider [phone] Colby Hirsch Unavailable Unavailable [facility] FOOD SERVICE COORDINATOR Primary Care Provider [phone] Reason for Visit * Reason Comments Med Refill Encounter Details Date Type Department Care Team ([facility] Contact Info) Description 04/07/2023 Refill [facility] 505 [place], [place] [phone] Marc Nicolas AGNP Multiple joint pain Social [...] Upcoming Encounters Date Type Department Care Team ([facility] Contact Info) Description 01/24/2025 2:00 PM EDT Clinical Support [address] [phone] Kira Bansal RN 01/24/2025 2:30 PM EDT Office Visit [facility] [address] [place] [address] AshfieldYecenia FNP 230 [place] [address] documented as of this encounter Visit Diagnoses Diagnosis Multiple joint pain Pain in joint, multiple sites documented in this encounter Additional Health Concerns Assessment Noted Time PHQ-9 Depression Total Score: 0 04/02/20 2:10 PM EDT documented as of this encounter Care Teams Cardiology Rn Relationship Specialty Start Date End Date Marc Nicolas AGNP PCP - General Family Medicine 10/22/22 04/20/23 Radha Shah FNP 230 [place] [address] PCP - General Family Medicine 04/21/23 04/25/24 AshfieldYecenia FNP [address] [place] [address] PCP - General Family Medicine 04/26/24 Colby Hirsch FNP [address] [place] [address] Nurse Practitioner Family Medicine 07/13/23 Candice Ugarte ImagerPharmacy Tech Customer Service 12/27/23 documented as of this encounter
--- OUTSIDE RECORDS SUMMARY | 2025-01-01 14:07 | XMS_ITS | Encounter Summary ---
Author Organization [employer] Address 75 [facility] 7t [place] [address] Care Team Providers Care Rn Orthopedic Name Role Phone Colby Hirsch MOLDING ENGINEER Unavailable Unavailable [facility] Primary Care Provider [phone] Reason for Visit * Reason Onset Date Comments Med Refill 09/29/2024 Encounter Details Date Type Department Care Team ([facility] st Contact Info) Description 09/29/2024 Telephone [facility] MEDICINE 230 [place] [address] [facility] 230 [place] [address] Med Refill Social History Tobacco Use Types [...] 50 MG tablet To be sent to: [facility] documented in this encounter Plan of Treatment Upcoming Encounters Date Type Department Care Team (Late st Contact Info) Description 01/24/2025 2:00 PM EDT Clinical Support [facility] MEDICINE [address] [place] [address] Kira Bansal RN 01/24/2025 2:30 PM EDT Office Visit [facility] MEDICINE [address] [place] [address] Yecenia Frias FNP [address] [place] [address] documented as of this encounter Visit Diagnoses Not on filedocumented in this encounter Additional Health Concerns Assessment Noted Time PHQ-9 Depression Total Score: 7 03/07/20 24 10:13 AM EDT documented as of this encounter Care Teams Rn Orthopedic Relationship Specialty Start Date End Date Yecenia Frias FNP [address] [place] [address] PCP - General Family Medicine 04/26/24 Colby Hirsch FNP Nurse Practitioner Family Medicine 07/13/23 Candice Ugarte Candles PourerCharge Histotechnologist 12/27/23 documented as of this encounter
--- OUTSIDE RECORDS SUMMARY | 2025-01-01 14:07 | XMS_ITS | Encounter Summary ---
Author Organization [employer] Address 75 [facility] 7t [place] [address] Care Team Providers Care Floor Associate Name Role Phone Marc Nicolas Primary Care Provider Unavail able Radha Shah NUDE MODEL Primary Care Provider [phone] Colby Hirsch Unavailable Unavailable [facility] NUDE MODEL Primary Care Provider [phone] Reason for Visit * Reason Comments Med Refill Encounter Details Date Type Department Care Team (Late Contact Info) Description 04/08/[address] [facility] MEDICINE [address] [place] [address] Marc Nicolas AGNP Mixed anxiety and depressive [...] 01/24/2025 2:00 PM EDT Clinical Support [address] [phone] Kira Bansal RN 01/24/2025 2:30 PM EDT Office Visit [facility] MEDICINE [address] [place] [address] [place]Yecenia [facility] 230 [place] [address] documented as of this encounter Visit Diagnoses Diagnosis Mixed anxiety and depressive disorder Dysthymic disorder documented in this encounter Additional Health Concerns Assessment Noted Time PHQ-9 Depression Total Score: 0 04/02/20 2:10 PM EDT documented as of this encounter Care Teams Floor Associate Relationship Specialty Start Date End Date Marc Nicolas AGNP PCP - General Family Medicine 10/22/22 04/20/23 Rahda Shah FNP 230 [place] [address] PCP - General Family Medicine 04/21/23 04/25/24 [place] [address] PCP - General Family Medicine 04/26/24 [place] [address] Nurse Practitioner Family Medicine 07/13/23 Candice Ugarte Instructor Product InspectionMonument Installer 12/27/23 documented as of this encounter
--- OUTSIDE RECORDS SUMMARY | 2025-01-01 14:07 | XMS_ITS | Encounter Summary ---
Author Organization [employer] Address [address] [facility] [address] 7t [place] [address] Care Team Providers Care Warp Picker Name Role Phone Marc Nicolas Primary Care Provider Unavail able Radha Shah Primary Care Provider [phone] Colby Hirsch Unavailable Unavailable [facility] OIL FIRE SPECIALIST Primary Care Provider [phone] Reason for Visit * Reason Onset Date Comments Med Refill 03/16/2023 Encounter Details Date Type Department Care Team (Late st Contact Info) Description 03/16/2023 Telephone [facility] MEDICINE 230 [place] [address] Marc Nicolas AGNP Med Refill Social History [...] 03/16/2023 3:56 PM EDT Pt scheduled for ASSISTANT PROFESSOR SURGICAL TECHNOLOGY RV 03/17/23 @ 10am. Tramadol refill due 03/19/23, Clonazepam refill due 03/18/23.Will forward request to PCP after ASSISTANT PROFESSOR SURGICAL TECHNOLOGY appt 03/17/23. * Telephone Encounter - [facility] - 03/16/2023 3:36 PM EDT Tc from pt requesting medication refill on traMADol (Ultram) 50 MG tablet and clonazePAM (KlonoPIN)0.5 MG tablet documented in this encounter Plan of Treatment Upcoming Encounters Date Type Department Care Team (Late st Contact Info) Description 01/24/2025 2:00 PM EDT Clinical Support [address] [address] Kira Bansal RN 01/24/2025 2:30 PM EDT Office Visit [address] [address] [address]ec[address] [address] documented as of this encounter Visit Diagnoses Not on filedocumented in this encounter Additional Health Concerns Assessment Noted Time PHQ-9 Depression Total Score: 13 023 3:27 PM EDT documented as of this encounter Care Teams Warp Picker Relationship Specialty Start Date End Date Marc Nicolas AGNP PCP - General Family Medicine 10/22/22 04/20/23 Radha Shah FNP [address] [place] [address] PCP - General Family Medicine 04/21/23 04/25/24 AltagraciaYecenia whipple FNP [address] [place] [address] PCP - General Family Medicine 04/26/24 Colby Hirsch FNP 230 [place] [address] Nurse Practitioner Family Medicine 07/13/23 Candice Ugarte Religion InstructorVisual Education Teacher 12/27/23 documented as of this encounter
--- OUTSIDE RECORDS SUMMARY | 2025-01-01 14:07 | XMS_ITS | Encounter Summary ---
Author Organization [employer] Address 75 [facility] 7t [place] [address] Care Team Providers Care Intern Product Marketing Manager Name Role Phone Radha Shah Primary Care Provider [phone] Colby Hirsch Unavailable Unavailable [facility] Primary Care Provider [phone] Reason for Referral * Consultation (Routine) - Closed Specialty Diagnoses / Procedures Referred By Aminta anderson Referred To Contact Diagnoses Routine adult health maintenance Radha Shah FNP [address] [place] [address] Phone: tel: fax: [address] [phone] Phone: tel: fax: Referral ID Status Reason Start Date Expiration Date V isits Requested Visits Authorized [id number] Closed Specialty Services Required 02/16/2024 02/15/2025 1 1 Encounter Details Date Type Department Care Team (Late st Contact Info) Description 02/16/2024 Orders Only [facility] [address] [place] [address] Radha Shah FNP [address] [place] [address] Routine adult health maintenance (Primary Dx) Social [...] Description 01/24/2025 2:00 PM EDT Clinical Support [facility] MEDICINE [address] [place] [address] Kira Bansal, MEREDITH 01/24/2025 2:30 PM EDT Office Visit [facility] [address] [place] [address] Yecenia Frias FNP 230 [place] [address] Scheduled Referrals Name Type Priority Associated Diagnoses [...] documented as of this encounter Care Teams Intern Product Marketing Manager Relationship Specialty Start Date End Date Radha Shah FNP [address] [place] [address] PCP - General Family Medicine 04/21/23 04/25/24 AltagraciaYecenia whipple FNP [address] [place] [address] PCP - General Family Medicine 04/26/24 Colby Hirsch FNP [address] [place] [address] Nurse Practitioner Family Medicine 07/13/23 Candice Ugarte Scrubber OperatorHearing Therapist 12/27/23 documented as of this encounter
--- OUTSIDE RECORDS SUMMARY | 2025-01-01 14:07 | XMS_ITS | Encounter Summary ---
Author Organization [employer] Address [address] [facility] 7t [place] [address] Care Team Providers Care B2B Managed Service Sales Exec Name Role Phone Radha Shah [facility] Primary Care Provider [phone] Colby Hirsch CAB WORKER Unavailable Unavailable [facility] Primary Care Provider [phone] Reason for Visit * Reason Onset Date Comments Results 02/16/2024 Care Coordination 02/16/[address] Kelly joshua telephone call outreached Encounter Details Date Type Department Care Team (Late st Contact Info) Description 02/16/2024 Telephone [facility] [address] [place] [address] Radha Shah FNP [address] [place] [address] Results; Care Coordination ([id number] Obrien telephone call outreached) Social History Tobacco [...] results: labs Date when done: 02/06 Facility: [facility] Please contact pt at [phone] documented in this encounter Plan of Treatment Upcoming Encounters Date Type Department Care Team (Late st Contact Info) Description 01/24/2025 2:00 PM EDT Clinical Support [facility] [address] Kira Bansal RN 01/24/2025 2:30 PM EDT Office Visit [facility] [address] [place] [address] Yecenia Frias FNP [address] [place] [address] documented as of this encounter Visit Diagnoses Not on filedocumented in this encounter Additional Health Concerns Assessment Noted Time PHQ-9 Depression Total Score: 6 12/28/19 24 11:17 AM EDT documented as of this encounter Care Teams B2B Managed Service Sales Exec Relationship Specialty Start Date End Date [place] [address] PCP - General Family Medicine 04/21/23 04/25/24 Yecenia Frias FNP [address] [place] [address] PCP - General Family Medicine 04/26/24 Colby Hirsch FNP [address] [place] [address] Nurse Practitioner Family Medicine 07/13/23 Candice Ugarte Shingle Shearing Machine OperatorPorter Luggage 12/27/23 documented as of this encounter
--- OUTSIDE RECORDS SUMMARY | 2025-01-01 14:07 | XMS_ITS | Encounter Summary ---
Author Organization [employer] Address [address] [facility] [address] 7t [place] [address] Care Team Providers Care Transistor Tester Name Role Phone Marc Nicolas Primary Care Provider Unavail able Radha Shah ASSISTANT PROFESSOR OF SPANISH Primary Care Provider [phone] Colby Hirsch Unavailable Unavailable [facility] ASSISTANT PROFESSOR OF SPANISH Primary Care Provider [phone] Reason for Visit * Reason Comments Med Refill Encounter Details Date Type Department Care Team (Late st Contact Info) Description 03/10/2023 Refill [facility] [address] [place] [address] Marc Nicolas AGNP Mixed anxiety and depressive [...] Will send to PCP on 03/18/23. Has WEIGHT CONTROL LECTURER scheduled 03/17/23. * Telephone Encounter - Chikadeborah Low - 03/15/2023 9:14 AM EDT Tc from patient requesting a med refill for medication tramadol [address] Nicolas documented in this encounter Plan of Treatment Upcoming Encounters Date Type Department Care Team (Late st Contact Info) Description 01/24/2025 2:00 PM EDT Clinical Support [address] [address] Kira Bansal RN 01/24/2025 2:30 PM EDT Office Visit [address] [address] Yecenia Frias FNP [address] [place] [address] documented as of this encounter Visit Diagnoses Diagnosis Mixed anxiety and depressive disorder Dysthymic disorder Multiple joint pain Pain in joint, multiple sites documented in this encounter Additional Health Concerns Assessment Noted Time PHQ-9 Depression Total Score: 13 023 3:27 PM EDT documented as of this encounter Care Teams Transistor Tester Relationship Specialty Start Date End Date Marc Nicolas AGNP PCP - General Family Medicine 10/22/22 04/20/23 Radha Shah FNP [address] [place] [address] PCP - General Family Medicine 04/21/23 04/25/24 Yecenia Frias FNP [address] [place] [address] PCP - General Family Medicine 04/26/24 Colby Hirsch FNP 230 [place] [address] Nurse Practitioner Family Medicine 07/13/23 Candice Ugarte Special Education Teaching AssistantValidation Engineer 12/27/23 documented as of this encounter
--- OUTSIDE RECORDS SUMMARY | 2025-01-01 14:07 | XMS_ITS | Encounter Summary ---
Author Organization [employer] Address 75 [facility] 7t [place] [address] Care Team Providers Care Tube Carrier Name Role Phone Colby Hirsch TELEPHONE INTERVIEWER Unavailable Unavailable [facility] Primary Care Provider Encounter Details Date Type Department Care Team (Late st Contact Info) Description 08/11/2024 Telephone [facility] 230 [place] [address] [facility] 230 [place] [address] Social History Tobacco Use Types Packs/Day Years [...] Description 01/24/2025 2:00 PM EDT Clinical Support [facility] [address] [place] [address] Kira Bansal RN 01/24/2025 2:30 PM EDT Office Visit [address] [address] Yecenia Frias FNP 230 [place] [address] documented as of this encounter Visit Diagnoses Not on filedocumented in this encounter Additional Health Concerns Assessment Noted Time PHQ-9 Depression Total Score: 7 03/07/20 24 10:13 AM EDT documented as of this encounter Care Teams Tube Carrier Relationship Specialty Start Date End Date Yecenia Frias FNP [address] [place] [address] PCP - General Family Medicine 04/26/24 Colby Hirsch FNP Nurse Practitioner Family Medicine 07/13/23 Candice Ugarte Veterinary Medicine TeacherAdvisor To Command In Combat 12/27/23 documented as of this encounter
--- OUTSIDE RECORDS SUMMARY | 2025-01-01 14:07 | XMS_ITS | Encounter Summary ---
Author Organization [employer] Address [address] [facility] [address] 7t [place] [address] Care Team Providers Care Geophysical Observer Name Role Phone Radha Shah WELDER GUN Primary Care Provider [phone] Colby Hirsch Unavailable Unavailable [facility] Primary Care Provider [phone] Encounter Details Date Type Department Care Team (Late st Contact Info) Description 03/08/2024 Orders Only [facility] [address] [place] [address] Radha Shah FNP [address] [place] [address] Social History Tobacco Use Types Packs/Day Years [...] Description 01/24/2025 2:00 PM EDT Clinical Support [address] [address] Kira Bansal RN 01/24/2025 2:30 PM EDT Office Visit [facility] [address] [place] [address] AltagraciaYecenia whipple FNP [address] [place] [address] documented as of this encounter Visit Diagnoses Not on filedocumented in this encounter Additional Health Concerns Assessment Noted Time PHQ-9 Depression Total Score: 7 03/07/20 24 10:13 AM EDT documented as of this encounter Care Teams Geophysical Observer Relationship Specialty Start Date End Date Radha Shah FNP [address] [place] [address] PCP - General Family Medicine 04/21/23 04/25/24 Yecenia Frias FNP [address] [place] [address] PCP - General Family Medicine 04/26/24 Colby Hirsch FNP [address] [place] [address] Nurse Practitioner Family Medicine 07/13/23 Candice Ugarte Mannequin MounterEyeglass Lens Grinder 12/27/23 documented as of this encounter
--- OUTSIDE RECORDS SUMMARY | 2025-01-01 14:07 | XMS_ITS | Encounter Summary ---
Author Organization [employer] Address [address] [facility] [address] 7t [place] [address] Care Team Providers Care Elementary Tutor Name Role Phone Radha Shah PAPER CUP MACHINE OPERATOR Primary Care Provider [phone] Colby Hirsch Unavailable Unavailable [facility] Primary Care Provider [phone] Reason for Visit * Reason Comments Med Refill Encounter Details Date Type Department Care Team (Late st Contact Info) Description 02/16/2024 Refill [facility] 230 [place] [address] Radha Shah FNP [address] [place] [address] Multiple joint pain Social History Tobacco Use [...] Description 01/24/2025 2:00 PM EDT Clinical Support [facility] [address] [place] [address] Kira Bansal RN 01/24/2025 2:30 PM EDT Office Visit [facility] [address] [place] [address] ArtesiaYecenia FNP [address] [place] [address] documented as of this encounter Visit Diagnoses Diagnosis Multiple joint pain Pain in joint, multiple sites documented in this encounter Additional Health Concerns Assessment Noted Time PHQ-9 Depression Total Score: 6 12/28/19 24 11:17 AM EDT documented as of this encounter Care Teams Elementary Tutor Relationship Specialty Start Date End Date Radha Shah FNP [address] [place] [address] PCP - General Family Medicine 04/21/23 04/25/24 ArtesiaYecenia whipple FNP [address] [place] [address] PCP - General Family Medicine 04/26/24 Colby Hirsch FNP 230 [place] [address] Nurse Practitioner Family Medicine 07/13/23 Candice Ugarte Education DeanSeasoner 12/27/23 documented as of this encounter
--- OUTSIDE RECORDS SUMMARY | 2025-01-01 14:07 | XMS_ITS | Encounter Summary ---
Author Organization [email or web address] Address 75 [facility] 7t [place] [address] Care Team Providers Care Shoe Folder Name Role Phone Colby Hirsch AUTOMOTIVE GLASS MECHANIC Unavailable Unavailable [facility] Primary Care Provider [phone] Reason for Visit * Reason Comments Med Refill Encounter Details Date Type Department Care Team ([facility] st Contact Info) Description 10/31/2024 Refill [facility] 230 [place] [address] [facility] 230 [place] [address] Type 2 diabetes mellitus without complication, with long-term current use of insulin ([facility]) Social History Tobacco Use [...] Description 01/24/2025 2:00 PM EDT Clinical Support [facility] [address] [place] [address] Kira Bansal RN 01/24/2025 2:30 PM EDT Office Visit [facility] [address] [place] [address] Yecenia Frias FNP 230 [place] [address] documented as of this encounter Visit Diagnoses Diagnosis Type 2 diabetes mellitus without complication, with long-term current use of insulin ([facility]) documented in this encounter Additional Health Concerns Assessment Noted Time PHQ-9 Depression Total Score: 0 10/24/19 25 1:15 PM EST documented as of this encounter Care Teams Shoe Folder Relationship Specialty Start Date End Date Yecenia Frias FNP [address] [place] [address] PCP - General Family Medicine 04/26/24 Colby Hirsch FNP Nurse Practitioner Family Medicine 07/13/23 Candice Ugarte Stone Product FabricatorBakelite Molder 12/27/23 documented as of this encounter
--- OUTSIDE RECORDS SUMMARY | 2025-01-01 14:07 | XMS_ITS | Encounter Summary ---
Author Organization [employer] Address 75 [facility] 7t [place] [address] Care Team Providers Care Fur Joiner Name Role Phone Marc Nicolas Primary Care Provider Unavail able Radha Shah ROVING WINDER Primary Care Provider [phone] Colby Hirsch Unavailable Unavailable [facility] ROVING WINDER Primary Care Provider [phone] Reason for Visit * Reason Comments Med Refill Encounter Details Date Type Department Care Team ([facility] Contact Info) Description 03/17/2023 Refill [facility] 230 [place] [address] Marc Nicolas AGNP Mixed anxiety and depressive [...] Encounters Date Type Department Care Team ([facility] Contact Info) Description 01/24/2025 2:00 PM EDT Clinical Support [facility] [address] [place] [address] Kira Bansal RN 01/24/2025 2:30 PM EDT Office Visit [facility] 230 [place] [address] Yecenia Frias FNP 230 [place] [address] documented as of this encounter Visit Diagnoses Diagnosis Mixed anxiety and depressive disorder Dysthymic disorder documented in this encounter Additional Health Concerns Assessment Noted Time PHQ-9 Depression Total Score: 13 023 3:27 PM EDT documented as of this encounter Care Teams Fur Joiner Relationship Specialty Start Date End Date Marc Nicolas AGNP PCP - General Family Medicine 10/22/22 04/20/23 Radha Shah FNP [address] [place] [address] PCP - General Family Medicine 04/21/23 04/25/24 Yecenia Frias FNP [address] [place] [address] PCP - General Family Medicine 04/26/24 Colby Hirsch FNP [address] [place] [address] Nurse Practitioner Family Medicine 07/13/23 Candice Ugarte Inspector Assemblies And InstallationsBiofuels Plant Superintendent 12/27/23 documented as of this encounter
[2025-01-01 14:21] LABS: Estimated Average Glucose 117 mg/dL; Hemoglobin A1C 127.0602 umol/L; Hemoglobin A1c % 5.7 % (<6.0); Total Hemoglobin (HGBA1C) 3232.7787 umol/L
== END 2025-01-01 12:57 | disposition home or self-care (01) ==
LOC: HO.LAB 12:56
PROVIDERS: Visit Provider Physician Assistant
DX: E11.9 Type 2 diabetes mellitus without complications (principal); E78.5 Hyperlipidemia, unspecified; I10 Essential (primary) hypertension
CPT/HCPCS: 36415; 82947; 83036; 99212

== ENCOUNTER 2025-01-08 10:56 | Emergency (ER) | payer MEDICAID, SELFPAY ==
[2025-01-08 11:25] VITALS: BP 132/82; PULSE 80; RESP 16; TEMP 37; O2SAT 99; BMI 35.9
--- OUTSIDE RECORDS SUMMARY | 2025-01-08 12:20 | XMS_ITS | Encounter Summary ---
Author Organization [employer] Address 75 [facility] 7t [place] [address] Care Team Providers Care Cvir Tech Name Role Phone Colby Hirsch CABLE MACHINE OPERATOR Unavailable Unavailable [facility] Primary Care Provider [phone] Reason for Visit * Reason Comments Med Refill Encounter Details Date Type Department Care Team ([facility] st Contact Info) Description 01/02/[address] [facility] [address] [place] [address] [facility] 230 [place] [address] Viral upper respiratory illness Social History Tobacco Use Types Packs/Day Years [...] 01/24/2025 2:00 PM EDT Clinical Support [facility] [address] [place] [address] Kira Bansal RN 01/24/2025 2:30 PM EDT Office Visit [address] [address] Yecenia Frias FNP [address] [place] [address] documented as of this encounter Visit Diagnoses Diagnosis Viral upper respiratory illness documented in this encounter Additional Health Concerns Assessment Noted Time PHQ-9 Depression Total Score: 0 10/24/19 25 1:15 PM EST documented as of this encounter Care Teams Cvir Tech Relationship Specialty Start Date End Date Yecenia Frias FNP [address] [place] [address] PCP - General Family Medicine 04/26/24 Colby Hirsch FNP Nurse Practitioner Family Medicine 07/13/23 Candice Ugarte Metal Die FinisherTransfer Table Operator 12/27/23 documented as of this encounter
--- OUTSIDE RECORDS SUMMARY | 2025-01-08 12:20 | XMS_ITS | Encounter Summary ---
Author Organization [employer] Address 75 [facility] 7t [place] [address] Care Team Providers Care Refrigerator Tester Name Role Phone Colby Hirsch DEALMAKER Unavailable Unavailable [facility] DEALMAKER Primary Care Provider [phone] Reason for Visit * Reason Onset Date Comments Results 01/05/2025 Encounter Details Date Type Department Care Team ([facility] Contact Info) Description 01/05/2025 Telephone [facility] 230 [place], [place] [phone] Quin Victoria MD 230 [place] [address] Results Social History Tobacco Use Types Packs/Day [...] encounter Miscellaneous Notes * Telephone Encounter - Diana Romero RN - 01/05/2025 2:28 PM EDT TC to pt using PI ID# [id number] for [employer]. Pt had requested results from left wrist xray done 12/07/24. Xray report was read as normal, this was reported to pt. She denies further questions or concerns. 01/05/25 11:33 AM Pt walked into the [facility] asking for X-RAY result that happened on 12/07/24. Pt was seen by Dr. Victoria. Pt just wants to know the results of the X-RAY. Pt stated she can be reached at [phone]. * Telephone Encounter - Lisa Marx - 01/05/2025 11:33 AM EDT Pt walked into the [facility] asking for X-RAY result that happened on 12/07/24. Pt was seen by Dr. Victoria. Pt just wants to know the results of the X-RAY. Pt stated she can be reached at [phone]. documented in this encounter Plan of Treatment Upcoming Encounters Date Type Department Care Team (Late st Contact Info) Description 01/24/2025 2:00 PM EDT Clinical Support [address] [address] Kira Bansal RN 01/24/2025 2:30 PM EDT Office Visit [facility] [address] [place] [address] Yecenia Frias FNP [address] [place] [address] documented as of this encounter Visit Diagnoses Not on filedocumented in this encounter Additional Health Concerns Assessment Noted Time PHQ-9 Depression Total Score: 0 10/24/19 25 1:15 PM EST documented as of this encounter Care Teams Refrigerator Tester Relationship Specialty Start Date End Date Yecenia Frias FNP [address] [place] [address] PCP - General Family Medicine 04/26/24 Colby Hirsch FNP Nurse Practitioner Family Medicine 07/13/23 Candice Ugarte Flamer SealerComputer Aide 12/27/23 documented as of this encounter
--- OUTSIDE RECORDS SUMMARY | 2025-01-08 12:20 | XMS_ITS | Encounter Summary ---
Author Organization [employer] Address 75 [facility] 7t [place] [address] Care Team Providers Care Senior Applications Engineer Name Role Phone Colby Hirsch TRACK LAYING MACHINE OPERATOR Unavailable Unavailable [facility] Primary Care Provider [phone] Reason for Visit * Reason Onset Date Comments telephone call 01/03/2025 Encounter Details Date Type Department Care Team ([facility] st Contact Info) Description 01/03/2025 Telephone [facility] 230 [place] [address] [facility] 230 [place] [address] telephone call Social History Tobacco Use Types Packs/Day [...] Telephone Encounter - Gladys Bertrand RN - 01/03/2025 12:30 PM EDT Noted. Medication pended earlier today to Dr. Galan as PCP is off today. * Telephone Encounter - Suyapa Walton - 01/03/2025 12:21 PM EDT Pt walked in requesting refill for Tramadol 50mg. documented in this encounter Plan of Treatment Upcoming Encounters Date Type Department Care Team (Late st Contact Info) Description 01/24/2025 2:00 PM EDT Clinical Support [facility] [address] [place] [address] Kira Bansal, MEREDITH 01/24/2025 2:30 PM EDT Office Visit [facility] 230 [place] [address] Yecenia Frias FNP 230 [place] [address] documented as of this encounter Visit Diagnoses Not on filedocumented in this encounter Additional Health Concerns Assessment Noted Time PHQ-9 Depression Total Score: 0 10/24/19 25 1:15 PM EST documented as of this encounter Care Teams Senior Applications Engineer Relationship Specialty Start Date End Date Yecenia Frias FNP [address] [place] [address] PCP - General Family Medicine 04/26/24 Colby Hirsch FNP Nurse Practitioner Family Medicine 07/13/23 Candice Ugarte Subsea EngineerHistology Specialist 12/27/23 documented as of this encounter
--- OUTSIDE RECORDS SUMMARY | 2025-01-08 12:21 | XMS_ITS | Encounter Summary ---
Author Organization [employer] Address 75 [facility] 7t [place] [address] Care Team Providers Care Extermination Supervisor Name Role Phone Radha Shah [facility] Primary Care Provider [phone] Colby Hirsch DUPLIGRAPH OPERATOR Unavailable Unavailable [facility] Primary Care Provider [phone] Reason for Visit * Reason Comments Med Refill Encounter Details Date Type Department Care Team (Late st Contact Info) Description 06/04/2023 Refill [facility] 230 [place] [address] Marilee Buckner FNP [address] [place] [address] [place] [address] Multiple joint pain; Mixed anxiety and depressive [...] AM EDT documented as of this encounter Functional Status * Over the past 2 weeks, how often have you been bothered by any of the following problems? Question Answer Date of Assessment Author Patient Health Questionnaire-2 Score 6 05/23 11:25 AM EDT Muriel Simons * If you checked off any problems on this questionnaire so far, Question Answer Date of Assessment Author How difficult have these problems made it for you to do your work, take care of things at home, or get along with other people? Extremely difficult 06/07/2023 11:25 AM EDT Muriel Simons * Over the last 2 weeks, how often have you been bothered by any of the following problems? Question Answer Date of Assessment Author Feeling nervous, anxious, or on edge 3 05/23 11:13 AM EDT Muriel Simons Not being able to stop or co ntrol worrying 2 06/07/2023 11:13 AM EDT Muriel Simons Worrying too much about different things 3 06/07/2023 11:13 AM EDT Muriel Simons Trouble relaxing 1 06/07/2023 11:13 AM EDT Muriel Simons Being so restless that it is hard to sit still 3 06/07/2023 11:13 AM EDT Muriel Simons Becoming easily annoyed or irritable 0 05/23 11:13 AM EDT Muriel Simons Feeling afraid as if somethi ng awful might happen 0 06/07/2023 11:13 AM EDT Muriel Simons TAVON-7 Total Score 12 06/07/2023 11:13 AM EDT Muriel Simons * Over the past 2 weeks, how often have you been bothered by any of the following problems? Question Answer Date of Assessment Author Little interest or pleasure in doing things Nearly every day 06/07/2023 11:25 AM EDT Muriel Simons Feeling down, depressed, or hopeless Nearly every day 06/07/2023 11:25 AM EDT Muriel Simons Trouble falling or staying asleep, or sleeping too much Nearly every day 06/07/2023 11:25 AM EDT Muriel Simons Feeling tired or having little energy More than half the days 06/07/2023 11:25 AM EDT Muriel Simons Poor appetite or overeating Nearly every day 11:25 AM EDT Muriel Simons Feeling bad about yourself - or that you are a failure or have let yourself or your family down Not at all 06/07/2023 11:25 AM EDT Muriel Simons Trouble concentrating on things, such as reading the newspaper or watching television Nearly every day 06/07/2023 11:25 AM EDT Muriel Simons Moving or speaking so slowly that other people could have noticed? Or the opposite - being so fidgety or restless that you have been moving around a lot more than usual. Several days 06/07/2023 11:25 AM EDT Muriel Simons Thoughts that you would be better off or hurting yourself in some way Not at all 06/07/2023 11:25 AM EDT Muriel Simons Patient Health Questionnaire-9 Score 18 06/07/2023 11:25 AM EDT Muriel Simons documented as of this encounter Plan of Treatment Upcoming Encounters Date Type Department Care Team (Late st Contact Info) Description 01/24/2025 2:00 PM EDT Clinical Support [facility] [address] [place] [address] Kira Bansal RN 01/24/2025 2:30 PM EDT Office Visit [facility] [address] [place] [address] Yecenia Frias FNP 230 [place] [address] documented as of this encounter Visit Diagnoses Diagnosis Multiple joint pain Pain in joint, multiple sites Mixed anxiety and depressive disorder Dysthymic disorder documented in this encounter Additional Health Concerns Assessment Noted Time PHQ-9 Depression Total Score: 0 04/02/20 2:10 PM EDT documented as of this encounter Care Teams Extermination Supervisor Relationship Specialty Start Date End Date Radha Shah FNP [address] [place] [address] PCP - General Family Medicine 04/21/23 04/25/24 AltagraciaYecenia whipple FNP [address] [place] [address] PCP - General Family Medicine 04/26/24 Colby Hirsch FNP [address] [place] [address] Nurse Practitioner Family Medicine 07/13/23 Candice Ugarte Air Defense Art[employer] Senior SergeantPaper Baler 12/27/23 documented as of this encounter
--- OUTSIDE RECORDS SUMMARY | 2025-01-08 12:21 | XMS_ITS ---
Author Organization [facility] Address [address] [place] [address] Care Team Providers Care Clinical Lab Specialist Name Role Phone Radha Rodriguez Primary Care Provider Rolandaa Jaylan Alaniz Unavailable [phone] REASON FOR VISIT FATTY LIVER Encounters Encounter Location Date Provider Diagnosis [facility] [address] [place] [address] 06/20/2024 Jaylan Neal Plan Of Treatment No Information Progress Notes * ABA LEUNGSDOB: 0 (44 yo F)Acc No.[id number]:06/20/2024 Progress Notes Patient:?HARMAN LEUNG Provider:?Jaylan Neal MD :1980???Age:43 Y???Sex:Female D ate:06/20/2024 Address:[address] [place] [address], [facility] Pcp:JACINTO Ramos Subjective: * Chief Complaints: * [...] MD Date:? 024 Generated for Ashlee perez/Lisa/eTransmitting on:?01/08/2025 12:21 PM EDT
--- OUTSIDE RECORDS SUMMARY | 2025-01-08 12:21 | XMS_ITS | Encounter Summary ---
Author Organization [employer] Address [address] 7t [place] [address] Care Team Providers Care Revenue Enforcement Agent Name Role Phone Radha Shah FACTORY MAINTENANCE TECHNICIAN Primary Care Provider [phone] Colby Hirsch Unavailable Unavailable [facility] Primary Care Provider [phone] Reason for Visit * Reason Comments Med Refill Encounter Details Date Type Department Care Team (Late st Contact Info) Description 04/12/2024 Refill [facility] [address] [place] [address] Radha Shah FNP [address] [place] [address] Multiple joint pain Social History Tobacco Use [...] this encounter Functional Status * Over the last 2 weeks, how often have you been bothered by any of the following problems? Question Answer Date of Assessment Author Feeling nervous, anxious, or on edge 3 03/24 1:28 PM EDT Kira Bansal RN Not being able to stop or co ntrol worrying 2 04/13/2024 1:28 PM EDT Kira Bansal RN Worrying too much about diff erent things 2 04/13/2024 1:28 PM EDT Kira Bansal RN Trouble relaxing 1 04/13/2024 1:28 PM EDT Kira Olivo ae, RN Being so restless that it is hard to sit still 2 04/13/2024 1:28 PM EDT Kira Bansal RN Becoming easily annoyed or irritable 2 03/24 1:28 PM EDT Kira Bansal RN Feeling afraid as if somethi ng awful might happen 2 04/13/2024 1:28 PM EDT Kira Bansal RN TAVON-7 Total Score 14 04/13/2024 1:28 PM EDT Kira Bansal RN documented as of this encounter Plan of Treatment Upcoming Encounters Date Type Department Care Team (Late st Contact Info) Description 01/24/2025 2:00 PM EDT Clinical Support [address] [address] Kira Bansal, RN 01/24/2025 2:30 PM EDT Office Visit [facility] MEDICINE [address] [place] [address] Yecenia Frias FNP [address] [place] [address] documented as of this encounter Visit Diagnoses Diagnosis Multiple joint pain Pain in joint, multiple sites documented in this encounter Additional Health Concerns Assessment Noted Time PHQ-9 Depression Total Score: 7 03/07/20 24 10:13 AM EDT documented as of this encounter Care Teams Revenue Enforcement Agent Relationship Specialty Start Date End Date Radha Shah FNP [address] [place] [address] PCP - General Family Medicine 04/21/23 04/25/24 Yecenia Frias FNP [address] [place] [address] PCP - General Family Medicine 04/26/24 Colby Hirsch FNP [address] [place] [address] Nurse Practitioner Family Medicine 07/13/23 Candice Ugarte Leather Production Machine OperatorTextile Machine Operator 12/27/23 documented as of this encounter
--- OUTSIDE RECORDS SUMMARY | 2025-01-08 12:21 | XMS_ITS | Patient Health Record ---
Author Organization [facility] Address [address] [place] [address] Care Team Providers Care Net Mobile Developer Name Role Phone Radha Rodriguez Primary Care Provider Jaylan Clancy Unavailable [phone] Allergies Allergen (clinical drug ingredient) Drug/Non Drug Allergy documented on EMR Reaction Allergy Type Onset Date Status quetiapine Quetiapine Fumarate Unknown Drug Allergy Active morphine Morphine Sulfate Unknown Drug Allergy Active diphenhydramine Benadryl Unknown Drug Allergy A ctive sea food (uncoded) Unknown Allergy A ctive trazodone Trazodone HCl Unknown Drug Allergy Act arvin Reason For Referral Referring Provider First Name Radha Referring Provider Last Name Pablo Referred Organization [facility] Referred Provider Jaylan Neal Referred Address [address] [facility],[place], [place],[address], Referred Provider Specialty Gastroentero logy General Notes Please see if a [facility] referral is on file or needed for office visit with Dr. Neal on 06-20-2024. [facility] Asha smith Dawn 05/09/2024 07:44:46 AM EDT > eligible, needs referrral...Requested from [facility] Referral Priority Routine Medications Medication SIG [...] DAILY Oral for 30 Active Vitamin A 06981 UNIT TAKE 1 CAPSULE BY M OUTH [...] Problem Status W/U Status Risk Notes Problem 60238827 Epigastric abdom inal pain (R10.13) Active confirmed Problem 770134646 Irritable bowel syndrome with diarrhea (K58.0) Active confirmed Problem Elevated liver function tests (R79.89) Active confirmed Problem 207303325 Fatty liver (K76.0) Active confirmed Problem 580408814 Gastroesophageal reflux disease, esophagitis presence not specified (K21.9) Active confirmed Problem 201086972 Abdominal pain, right upper quadrant (R10.11) Active confirmed Encounters Encounter Location Date Provider Diagnosis [facility] [address] [place] [address] 01/26/2024 Jaylan Neal [facility] [address] [place] [address] 06/16/2024 Jaylan Neal Plan Of Treatment Pending Test Test Name Order Date BUN 12/29/2019 CREATININE 12/29/2019 LIVER PROFILE 02/04/2020 LIVER PROFILE 04/09/2020 LIVER PROFILE 12/29/2019 CBC w DIFF 12/29/2019 PROTHROMBIN TIME (PT, INR) 12/29/2019 [id number] (A1A) 12/29/2019 CAROTENE 12/29/2019 CERULOPLASMIN 12/29/2019 MITOCHONDRIAL [...] Start Date Coverage End Date MEDICAID OF [employer] [address] [place] [id number] HARMAN LEUNG Self - patient is the insured Medical (General) History Medical History History ICD Code Asthma Denies NM,CVA,renal disease Migraines Anxiety, depression, bipolar disease NIDDM [...]
--- OUTSIDE RECORDS SUMMARY | 2025-01-08 12:21 | XMS_ITS | Encounter Summary ---
Author Organization [employer] Address [address] 7t [place] [address] Care Team Providers Care Cadastral Surveyor Name Role Phone Radha Shah PRESS BREAKER Primary Care Provider [phone] Colby Hirsch PRESS BREAKER Unavailable Unavailable [facility] PRESS BREAKER Primary Care Provider [phone] Reason for Visit * Reason Comments Med Refill Encounter Details Date Type Department Care Team (Late st Contact Info) Description 06/16/2023 Refill [facility] MEDICINE [address] [place] [address] Marc Nicolas AGNP Pain Social History Tobacco [...] Description 01/24/2025 2:00 PM EDT Clinical Support [address] [address] Kira Bansal RN 01/24/2025 2:30 PM EDT Office Visit [address] [address] AltagraciaYecenia whipple FNP [address] [place] [address] documented as of this encounter Visit Diagnoses Diagnosis Pain Generalized pain documented in this encounter Additional Health Concerns Assessment Noted Time PHQ-9 Depression Total Score: 6 06/15/20 23 10:23 AM EDT documented as of this encounter Care Teams Cadastral Surveyor Relationship Specialty Start Date End Date Radha Shah FNP [address] [place] [address] PCP - General Family Medicine 04/21/23 04/25/24 [place] [address] [place] [address] PCP - General Family Medicine 04/26/24 Colby Hirsch FNP [address] [place] [address] Nurse Practitioner Family Medicine 07/13/23 Candice Ugarte Director Of MaterialsService Line Bus Cleaner 12/27/23 documented as of this encounter
--- OUTSIDE RECORDS SUMMARY | 2025-01-08 12:21 | XMS_ITS | Encounter Summary ---
Author Organization [employer] Address [address] [facility] 7t [place] [address] Care Team Providers Care Marketing Communications Leader Name Role Phone Radha Shah [facility] Primary Care Provider [phone] Colby Hirsch SUPERVISOR ALTERATION WORKROOM Unavailable Unavailable [facility] Primary Care Provider [phone] Reason for Visit * Reason Comments Med Refill Encounter Details Date Type Department Care Team (Late st Contact Info) Description 06/09/[address] [facility] MEDICINE [address] [place] [address] Marilee Buckner FNP [address] [place] [address] [place] [address] Multiple joint pain; Mixed anxiety and depressive [...] 01/24/2025 2:00 PM EDT Clinical Support [facility] MEDICINE [address] [place] [address] Kira Bansal RN 01/24/2025 2:30 PM EDT Office Visit [facility] [address] [place] [address] [place] [address] [address] documented as of this encounter Visit Diagnoses Diagnosis Multiple joint pain Pain in joint, multiple sites Mixed anxiety and depressive disorder Dysthymic disorder documented in this encounter Additional Health Concerns Assessment Noted Time PHQ-9 Depression Total Score: 18 023 11:25 AM EDT documented as of this encounter Care Teams Marketing Communications Leader Relationship Specialty Start Date End Date Radha Shah FNP [address] [place] [address] PCP - General Family Medicine 04/21/23 04/25/24 [place] whipple FNP [address] [place] [address] PCP - General Family Medicine 04/26/24 Colby Hirsch FNP [address] [place] [address] Nurse Practitioner Family Medicine 07/13/23 Candice Ugarte Scientific Informatics LeaderPrecision Jig Grinder 12/27/23 documented as of this encounter
--- OUTSIDE RECORDS SUMMARY | 2025-01-08 12:21 | XMS_ITS ---
Author Organization [facility] Address [address] [place] [address] Care Team Providers Care Steel Layout Worker Name Role Phone Radha Rodriguez Primary Care Provider Jaylan Clancy Unavailable [phone] REASON FOR VISIT Patient presents today for FATTY LIVER Encounters Encounter Location Date Provider Diagnosis [facility] [address] [place] [phone] 06/20/2024 Jaylan Neal Plan Of Treatment No Information Progress Notes * MADHU JAZLYNHAYLEESDOB: 0 (44 yo F)Acc No.[id number]:06/20/2024 Progress Notes Patient:?HARMAN LEUNG Provider:?Jaylan Neal MD :1980???Age:43 Y???Sex:Female D ate:06/20/2024 Address:[address] [place], [place] [address] Pcp:JACINTO Ramos Subjective: * Chief Complaints: * [...] Date:? 024 Generated for Ashlee perez/Lisa/eTransmitting on:?01/08/2025 12:20 PM EDT
--- OUTSIDE RECORDS SUMMARY | 2025-01-08 12:21 | XMS_ITS | Encounter Summary ---
Author Organization [employer] Address [address] 7t [place] [address] Care Team Providers Care Cattle And Wheat Farmer Name Role Phone Radha Shah EDUCATION RN Primary Care Provider [phone] Colby Hirsch Unavailable Unavailable [facility] Primary Care Provider [phone] Encounter Details Date Type Department Care Team (Late st Contact Info) Description 04/24/2024 Orders Only [facility] [address] [place] [address] Radha Shah FNP [address] [place] [address] Elevated lipids (Primary Dx) Social History Tobacco [...] 2:00 PM EDT Clinical Support [facility] MEDICINE [address] [place] [address] Kira Bansal RN 01/24/2025 2:30 PM EDT Office Visit [address] [address] [place] Louis[place] FNP [address] [place] [address] documented as of this encounter Procedures Procedure Name Priority Date/Time Associated Diagnosis Comments LIPID PANEL, STANDARD Routine 05/12/2024 11:00 AM EDT Elevated lipids documented in this encounter Results * (ABNORMAL) Lipid Panel, Standard (05/12/2024 11:00 AM EDT) Triglycerides 100 <150 mg/dL [facility] Comment:Desirable Triglyceri de: less than 150 mg/dLBorderline High Triglyceride 150-199 mg/dLHigh Triglyceride: 200-499 mg/dLVery High Triglyceride: greater than or equal to 5OO mg/dL Cholesterol 101 <200 mg/dL [facility] Comment:Desirable Cholestero l: less than 200 mg/dLBorderline High Cholesterol: 200-239 mg/dLHigh Cholesterol: greater than 239 mg/dL LDL Cholesterol Calculated 44 <100 mg/dL [facility] Comment:Desirable LDL: less than 100 mg/dLNear Optimal/Above Optimal LDL: 110- 129 mg/dLBorderline High LDL: 130-159 mg/dLHigh LDL: 160-189 mg/dLVery High LDL: greater than or equal to 190 mg/dL HDL Cholesterol 37(L) >40 mg/dL [facility] Comment:Desirable HDL: great er than 40 mg/dL Note: This HDL assay may give artificially low results in patients with liver disease. Blood Venous blood specimen / Unknown 05/12/2024 11:00 AM EDT 05/12/2024 11:00 AM EDT Radha CASEY LAB BLOOD ORDERABLES Final Resu lt [facility] [address] [place] [phone] documented in this encounter Visit Diagnoses Diagnosis Elevated lipids- Primary documented in this encounter Additional Health Concerns Assessment Noted Time PHQ-9 Depression Total Score: 7 03/07/20 24 10:13 AM EDT documented as of this encounter Care Teams Cattle And Wheat Farmer Relationship Specialty Start Date End Date Radha Shah FNP [address] [place] [address] PCP - General Family Medicine 04/21/23 04/25/24 [place] FNP [address] [place] [address] PCP - General Family Medicine 04/26/24 Colby Hirsch FNP [address] [place] [address] Nurse Practitioner Family Medicine 07/13/23 Candice Ugarte Family PractitionerAdult School Teacher 12/27/23 documented as of this encounter
--- OUTSIDE RECORDS SUMMARY | 2025-01-08 12:21 | XMS_ITS | Encounter Summary ---
Author Organization [employer] Address [address] [facility] 7t [place] [address] Care Team Providers Care Communication Clerk Name Role Phone Marc Nicolas Primary Care Provider Unavail able Radha Shah NOVELTY TWISTER OPERATOR Primary Care Provider [phone] Colby Hirsch Unavailable Unavailable [facility] NOVELTY TWISTER OPERATOR Primary Care Provider [phone] Reason for Visit * Reason Comments Med Refill Encounter Details Date Type Department Care Team (Late Contact Info) Description 04/08/2023 Refill [facility] [address] [place] [address] Marc Nicolas AGNP Schizoaffective disorder, depressive type [...] 2:00 PM EDT Clinical Support [facility] [address] [place], [place] [phone] Kira Bansal RN 01/24/2025 2:30 PM EDT Office Visit [facility] [address] [place] [address] Yecenia Frias FNP [address] [place] [address] documented as of this encounter Visit Diagnoses Diagnosis Schizoaffective disorder, depressive type (CMS/HCC) Schizoaffective disorder, unspecified condition Mixed anxiety and depressive disorder Dysthymic disorder documented in this encounter Additional Health Concerns Assessment Noted Time PHQ-9 Depression Total Score: 0 04/02/20 2:10 PM EDT documented as of this encounter Care Teams Communication Clerk Relationship Specialty Start Date End Date Marc Nicolas AGNP PCP - General Family Medicine 10/22/22 04/20/23 Radha Shah FNP [address] [place] [address] PCP - General Family Medicine 04/21/23 04/25/24 Yecenia Frias FNP [address] [place] [address] PCP - General Family Medicine 04/26/24 Colby Hirsch FNP [address] [place] [address] Nurse Practitioner Family Medicine 07/13/23 Candice Ugarte Drill Press Operator Numerical ControlAircraft Inspector 12/27/23 documented as of this encounter
--- OUTSIDE RECORDS SUMMARY | 2025-01-08 12:21 | XMS_ITS | Encounter Summary ---
Author Organization [employer] Address [address] 7t [place] [address] Care Team Providers Care Pharmacy Care Coordinator Name Role Phone Radha Shah PENS AND PENCILS DIPPER Primary Care Provider [phone] Colby Hirsch Unavailable Unavailable [facility] Primary Care Provider [phone] Encounter Details Date Type Department Care Team (Late st Contact Info) Description 10/29/2023 Orders Only [facility]S [address] [place] [address] Radha Shah FNP [address] [place] [address] Social History Tobacco Use Types Packs/Day Years [...] Description 01/24/2025 2:00 PM EDT Clinical Support [address] [address] Kira Bansal RN 01/24/2025 2:30 PM EDT Office Visit [address] [address] Yecenia Frias FNP [address] [place] [address] documented as of this encounter Visit Diagnoses Not on filedocumented in this encounter Additional Health Concerns Assessment Noted Time PHQ-9 Depression Total Score: 8 09/02/19 24 11:12 AM EST documented as of this encounter Care Teams Pharmacy Care Coordinator Relationship Specialty Start Date End Date Radha Shah FNP [address] [place] [address] PCP - General Family Medicine 04/21/23 04/25/24 Yecenia Frias FNP [address] [place] [address] PCP - General Family Medicine 04/26/24 Colby Hirsch FNP [address] [place] [address] Nurse Practitioner Family Medicine 07/13/23 Candice Ugarte Uniform Force CaptainBusiness Strategy Manager 12/27/23 documented as of this encounter
--- OUTSIDE RECORDS SUMMARY | 2025-01-08 12:21 | XMS_ITS | Encounter Summary ---
Author Organization [employer] Address [address] [facility] 7t [place] [address] Care Team Providers Care Or Rn Name Role Phone Colby Hirsch CERTIFIED SCRUB TECH Unavailable Unavailable [facility] Primary Care Provider [phone] Reason for Visit * Reason Onset Date Comments Med Refill 09/29/2024 Encounter Details Date Type Department Care Team ([facility] st Contact Info) Description 09/29/2024 Telephone [facility] MEDICINE [address] [place] [address] [facility] [address] [place] [address] Med Refill Social History Tobacco Use Types [...] with others, in a hotel, in a alf, living outside on the street, on a [...] tablet To be sent to: [facility] documented in this encounter Plan of Treatment Upcoming Encounters Date Type Department Care Team (Late st Contact Info) Description 01/24/2025 2:00 PM EDT Clinical Support [facility] MEDICINE [address] [place] [address] Kira Bansal RN 01/24/2025 2:30 PM EDT Office Visit [facility]INE [address] [place] [address] Yecenia Frias FNP [address] [place] [address] documented as of this encounter Visit Diagnoses Not on filedocumented in this encounter Additional Health Concerns Assessment Noted Time PHQ-9 Depression Total Score: 7 03/07/20 24 10:13 AM EDT documented as of this encounter Care Teams Or Rn Relationship Specialty Start Date End Date Yecenia Frias FNP [address] [place] [address] PCP - General Family Medicine 04/26/24 Colby Hirsch FNP Nurse Practitioner Family Medicine 07/13/23 Candice Ugarte Ict ManagersFast Food Manager 12/27/23 documented as of this encounter
--- OUTSIDE RECORDS SUMMARY | 2025-01-08 12:21 | XMS_ITS | Encounter Summary ---
Author Organization [employer] Address [address] [facility] 7t [place] [address] Care Team Providers Care Warehouse Examiner Name Role Phone Marc Nicolas Primary Care Provider Unavail able Radha Shah Primary Care Provider [phone] Colby Hirsch Unavailable Unavailable [facility] BRAZER ASSEMBLER Primary Care Provider [phone] Reason for Visit * Reason Onset Date Comments Med Refill 04/09/2023 Encounter Details Date Type Department Care Team (Late st Contact Info) Description 04/09/2023 Refill [facility] MEDIC[facility] [address] [place] [address] Marc Nicolas AGNP Mixed anxiety and depressive [...] listed in EHR, no record. Spoke with [facility] pharmacy, she is listed as Romaine [...] (KlonoPIN) 0.5 MG tablet Please sent to [facility] [place], [place] - [address] [place] [address] documented in this encounter Plan of Treatment Upcoming Encounters Date Type Department Care Team (Late st Contact Info) Description 01/24/2025 2:00 PM EDT Clinical Support [facility] [address] [place] [address] Kira Bansal RN 01/24/2025 2:30 PM EDT Office Visit [facility] [address] [place] [address] Yecenia Frias FNP [address] [place] [address] documented as of this encounter Visit Diagnoses Diagnosis Mixed anxiety and depressive disorder Dysthymic disorder documented in this encounter Additional Health Concerns Assessment Noted Time PHQ-9 Depression Total Score: 0 04/02/20 2:10 PM EDT documented as of this encounter Care Teams Warehouse Examiner Relationship Specialty Start Date End Date Marc Nicolas AGNP PCP - General Family Medicine 10/22/22 04/20/23 Radha Shah FNP [address] [place] [address] PCP - General Family Medicine 04/21/23 04/25/24 Yecenia Frias FNP [address] [place] [address] PCP - General Family Medicine 04/26/24 Colby Hirsch FNP [address] [place] [address] Nurse Practitioner Family Medicine 07/13/23 Candice Ugarte Advertising Campaign ManagerChairman Emeritus 12/27/23 documented as of this encounter
--- OUTSIDE RECORDS SUMMARY | 2025-01-08 12:21 | XMS_ITS | Encounter Summary ---
Author Organization [employer] Address [address] [facility] [address] 7t [place] [address] Care Team Providers Care Talent Analyst Name Role Phone Radha Shah REVERBERATORY FURNACE SUPERVISOR Primary Care Provider [phone] Colby iHrsch Unavailable Unavailable [facility] Primary Care Provider [phone] Reason for Visit * Reason Comments Med Refill Encounter Details Date Type Department Care Team (Late st Contact Info) Description 11/24/2023 Refill [facility] MEDICINE [address] [place] [address] Radha Shah FNP [address] [place] [address] Multiple joint pain Social History Tobacco Use [...] Clinical Support [facility] MED[facility] [address] [place] [address] Kira Bansal RN 01/24/2025 2:30 PM EDT Office Visit [facility] MED[facility]INE [address] [place] [address] [place] FNP [address] [place] [address] documented as of this encounter Visit Diagnoses Diagnosis Multiple joint pain Pain in joint, multiple sites documented in this encounter Additional Health Concerns Assessment Noted Time PHQ-9 Depression Total Score: 8 09/02/19 24 11:12 AM EST documented as of this encounter Care Teams Talent Analyst Relationship Specialty Start Date End Date Radha Shah FNP [address] [place] [address] PCP - General Family Medicine 04/21/23 04/25/24 [place] whipple FNP [address] [place] [address] PCP - General Family Medicine 04/26/24 Colby Hirsch FNP [address] [place] [address] Nurse Practitioner Family Medicine 07/13/23 Candice Ugarte Technical IllustratorCell Phone Repair Technician 12/27/23 documented as of this encounter
--- OUTSIDE RECORDS SUMMARY | 2025-01-08 12:21 | XMS_ITS | Encounter Summary ---
Author Organization [employer] Address 75 [facility] 7t [place] [address] Care Team Providers Care Rn Admission Name Role Phone Marc Nicolas Primary Care Provider Unavail able Radha Shah DIRECT SUPPORT STAFF MEMBER Primary Care Provider [phone] Colby Hirsch Unavailable Unavailable [facility] DIRECT SUPPORT STAFF MEMBER Primary Care Provider [phone] Reason for Visit * Reason Onset Date Comments Results 04/09/2023 Encounter Details Date Type Department Care Team (Late st Contact Info) Description 04/09/2023 Telephone [facility] MEDICINE [address] [place] [address] Marc Nicolas AGNP Results Social History Tobacco [...] AM EDT FYI T/C to pt. Through [employer] id - [id number] for below message. Pt. States she is having apt. With Dr. Sims on 05/03/2023 and wants to discuss on that day. Pt. Advised to give call back on [phone] if any questions or concerns. Pt. Verbally agreed and understood. Please review and advise if needed. * Telephone Encounter - Romeo Child - 04/09/2023 12:19 PM EDT Tc from pt requesting status on results for Liver that were done a moth ago pt states. Please contact pt at [phone] Syriac Speaker documented in this encounter Plan of Treatment Upcoming Encounters Date Type Department Care Team (Late st Contact Info) Description 01/24/2025 2:00 PM EDT Clinical Support [address] [address] Kira Bansal RN 01/24/2025 2:30 PM EDT Office Visit [facility] MEDICINE [address] [place] [address] Gibson IslandYecenia whipple FNP [address] [place] [address] documented as of this encounter Visit Diagnoses Not on filedocumented in this encounter Additional Health Concerns Assessment Noted Time PHQ-9 Depression Total Score: 0 04/02/20 23 2:10 PM EDT documented as of this encounter Care Teams Rn Admission Relationship Specialty Start Date End Date Marc Nicolas AGNP PCP - General Family Medicine 10/22/22 04/20/23 Radha Shah FNP [address] [place] [address] PCP - General Family Medicine 04/21/23 04/25/24 Yecenia Frias FNP [address] [place] [address] PCP - General Family Medicine 04/26/24 Colby Hirsch FNP [address] [place] [address] Nurse Practitioner Family Medicine 07/13/23 Candice Ugarte Lead AssemblerRn Labor And Delivery 12/27/23 documented as of this encounter
--- OUTSIDE RECORDS SUMMARY | 2025-01-08 12:21 | XMS_ITS | Encounter Summary ---
Author Organization [employer] Address [address] [facility] [address] 7t [place] [address] Care Team Providers Care Tunnel Kiln Firer Name Role Phone Radha Shah IN MOLD COATER Primary Care Provider [phone] Colby Hirsch Unavailable Unavailable [facility] Primary Care Provider [phone] Reason for Visit * Reason Comments Med Refill Encounter Details Date Type Department Care Team ([facility] st Contact Info) Description 07/02/2023 Refill [facility] MEDICINE [address] [place] [address] Radha Shah FNP [address] [place] [address] Multiple joint pain Social History Tobacco Use [...] Description 01/24/2025 2:00 PM EDT Clinical Support [facility] MEDICINE [address] [place] [address] Kira Bansal RN 01/24/2025 2:30 PM EDT Office Visit [facility] MEDICINE [address] [place] [address] [place] [address] [address] documented as of this encounter Visit Diagnoses Diagnosis Multiple joint pain Pain in joint, multiple sites documented in this encounter Additional Health Concerns Assessment Noted Time PHQ-9 Depression Total Score: 6 06/15/20 23 10:23 AM EDT documented as of this encounter Care Teams Tunnel Kiln Firer Relationship Specialty Start Date End Date Radha Shah FNP [address] [place] [address] PCP - General Family Medicine 04/21/23 04/25/24 [place] whipple FNP [address] [place] [address] PCP - General Family Medicine 04/26/24 Colby Hirsch FNP 230 [place] [address] Nurse Practitioner Family Medicine 07/13/23 Candice Ugarte Heat And Frost InsulatorParts Technician 12/27/23 documented as of this encounter
--- OUTSIDE RECORDS SUMMARY | 2025-01-08 12:21 | XMS_ITS | Encounter Summary ---
Author Organization [employer] Address 75 [facility] 7t [place] [address] Care Team Providers Care Warehouse Manager Name Role Phone Colby Hirsch AUTOMOTIVE BUYER Unavailable Unavailable [facility] Primary Care Provider [phone] Encounter Details Date Type Department Care Team (Late st Contact Info) Description 08/11/2024 Telephone [facility] MEDICINE [address] [place] [address] [facility] [address] [place] [address] Social History Tobacco Use Types Packs/Day Years [...] Description 01/24/2025 2:00 PM EDT Clinical Support [facility] MEDICINE [address] [place] [address] Kira Bansal RN 01/24/2025 2:30 PM EDT Office Visit [address] [address] Yecenia Frias FNP [address] [place] [address] documented as of this encounter Visit Diagnoses Not on filedocumented in this encounter Additional Health Concerns Assessment Noted Time PHQ-9 Depression Total Score: 7 03/07/20 24 10:13 AM EDT documented as of this encounter Care Teams Warehouse Manager Relationship Specialty Start Date End Date Yecenia Frias FNP [address] [place] [address] PCP - General Family Medicine 04/26/24 Colby Hirsch FNP Nurse Practitioner Family Medicine 07/13/23 Candice Ugarte Complex Care Nurse PractitionerSupervisor Cellars 12/27/23 documented as of this encounter
--- OUTSIDE RECORDS SUMMARY | 2025-01-08 12:21 | XMS_ITS | Encounter Summary ---
Author Organization [employer] Address 75 [facility] 7t [place] [address] Care Team Providers Care Veneer Stock Grader Name Role Phone Marc Nicolas Primary Care Provider Unavail able Radha Shah CARPET REPAIRER Primary Care Provider [phone] Colby Hirsch Unavailable Unavailable [facility] CARPET REPAIRER Primary Care Provider [phone] Reason for Visit * Reason Onset Date Comments Referral 01/26/2023 Encounter Details Date Type Department Care Team (Late st Contact Info) Description 01/26/2023 Telephone [facility] MEDICINE [address] [place] [address] Marc Nicolas AGNP Referral Social History Tobacco [...] Description 01/24/2025 2:00 PM EDT Clinical Support [address] [address] Kira Bansal RN 01/24/2025 2:30 PM EDT Office Visit [facility] MEDICINE [address] [place] [address] JoyYecenia FNP [address] [place] [address] documented as of this encounter Visit Diagnoses Not on filedocumented in this encounter Additional Health Concerns Assessment Noted Time PHQ-9 Depression Total Score: 19 023 3:57 PM EDT documented as of this encounter Care Teams Veneer Stock Grader Relationship Specialty Start Date End Date Marc Nicolas AGNP PCP - General Family Medicine 10/22/22 04/20/23 Radha Shah FNP [address] [place] [address] PCP - General Family Medicine 04/21/23 04/25/24 JoyYecenia FNP [address] [place] [address] PCP - General Family Medicine 04/26/24 Colby Hirsch FNP [address] [place] [address] Nurse Practitioner Family Medicine 07/13/23 Candice Ugarte Coal BaggerFashion Model 12/27/23 documented as of this encounter
--- OUTSIDE RECORDS SUMMARY | 2025-01-08 12:21 | XMS_ITS | Encounter Summary ---
Author Organization [employer] Address [address] [facility] [address] 7t [place] [address] Care Team Providers Care Solar Manager Name Role Phone Ruth Hoffmann JOURNEYMAN POWERHOUSE OPERATOR Primary Care Provider Marc Nava Primary Care Provider Unavail able Radha Shah JOURNEYMAN POWERHOUSE OPERATOR Primary Care Provider [phone] Colby HirschP Unavailable Unavailable [facility] JOURNEYMAN POWERHOUSE OPERATOR Primary Care Provider Reason for Visit * Reason Onset Date Comments Appointment Request 10/01/2022 Encounter Details Date Type Department Care Team (Late st Contact Info) Description 10/01/2022 Telephone [facility] MEDICINE 230 [place] [address] Ruth Hoffmann FNP Appointment Request Social History [...] Description 01/24/2025 2:00 PM EDT Clinical Support [address] [address] Kira Bansal RN 01/24/2025 2:30 PM EDT Office Visit [address] [address] Yecenia Frias FNP [address] [place] [address] documented as of this encounter Visit Diagnoses Not on filedocumented in this encounter Care Teams Solar Manager Relationship Specialty Start Date End Date Ruth Hoffmann FNP PCP - General Family Medicine 07/21/22 10/21/22 Marc Nicolas AGNP PCP - General Family Medicine 10/22/22 04/20/23 Radha Shah FNP [address] [place] [address] PCP - General Family Medicine 04/21/23 04/25/24 Yecenia Frias FNP [address] [place] [address] PCP - General Family Medicine 04/26/24 Colby Hirsch FNP [address] [place] [address] Nurse Practitioner Family Medicine 07/13/23 Candice Ugarte Project Development ManagerCrew Foreman 12/27/23 documented as of this encounter
--- OUTSIDE RECORDS SUMMARY | 2025-01-08 12:21 | XMS_ITS | Encounter Summary ---
Author Organization [employer] Address 75 [facility] 7t [place] [address] Care Team Providers Care Supervisor Nut Processing Name Role Phone Marc Nicolas Primary Care Provider Unavail able Radha Shah AMMUNITION ASSEMBLY LABORER Primary Care Provider [phone] Colby Hirsch Unavailable Unavailable [facility] AMMUNITION ASSEMBLY LABORER Primary Care Provider [phone] Reason for Visit * Reason Comments Med Refill Encounter Details Date Type Department Care Team (Late Contact Info) Description 04/08/2023 Refill [facility] MEDICINE [address] [place] [address] Marc Nicolas AGNP Mixed anxiety and depressive [...] 01/24/2025 2:00 PM EDT Clinical Support [facility] MEDICINE [address] [place] [phone] Kira Bansal RN 01/24/2025 2:30 PM EDT Office Visit [facility] MEDICINE [address] [place] [address] [place] [facility] [address] [place] [address] documented as of this encounter Visit Diagnoses Diagnosis Mixed anxiety and depressive disorder Dysthymic disorder documented in this encounter Additional Health Concerns Assessment Noted Time PHQ-9 Depression Total Score: 0 04/02/20 2:10 PM EDT documented as of this encounter Care Teams Supervisor Nut Processing Relationship Specialty Start Date End Date Marc Nicolas AGNP PCP - General Family Medicine 10/22/22 04/20/23 Radha Shah FNP [address] [place] [address] PCP - General Family Medicine 04/21/23 04/25/24 [place] [address] PCP - General Family Medicine 04/26/24 [place] [address] Nurse Practitioner Family Medicine 07/13/23 Candice Ugarte Oil House AttendantDirector Television News 12/27/23 documented as of this encounter
--- OUTSIDE RECORDS SUMMARY | 2025-01-08 12:21 | XMS_ITS | Encounter Summary ---
Author Organization [employer] Address 75 [facility] 7t [place] [address] Care Team Providers Care Solderer Assembly Repair Name Role Phone Colby Hirsch WEATHERIZATION SPECIALIST Unavailable Unavailable [facility] Primary Care Provider [phone] Reason for Visit * Reason Onset Date Comments FYI 06/23/2024 Encounter Details Date Type Department Care Team ([facility] st Contact Info) Description 06/23/2024 Telephone [facility] MEDICINE [address] [place] [address] [facility] 230 [place] [address] Social History Tobacco Use Types Packs/Day Years [...] 9:36 AM EDT Tc from [facility] calling inform provider pt cancelled appointment with did not want to r/s. If any questions contact Maribel at [phone] documented in this encounter Plan of Treatment Upcoming Encounters Date Type Department Care Team ([facility] st Contact Info) Description 01/24/2025 2:00 PM EDT Clinical Support [facility] MEDICINE [address] [place] [address] Kira Bansal RN 01/24/2025 2:30 PM EDT Office Visit [facility] MEDICINE [address] [place] [address] Yecenia Frias FNP 230 [place] [address] documented as of this encounter Visit Diagnoses Not on filedocumented in this encounter Additional Health Concerns Assessment Noted Time PHQ-9 Depression Total Score: 7 03/07/20 24 10:13 AM EDT documented as of this encounter Care Teams Solderer Assembly Repair Relationship Specialty Start Date End Date Yecenia Frias FNP [address] [place] [address] PCP - General Family Medicine 04/26/24 Colby Hirsch FNP Nurse Practitioner Family Medicine 07/13/23 Candice Ugarte Coagulating Bath OperatorArchitectural Project Captain 12/27/23 documented as of this encounter
--- OUTSIDE RECORDS SUMMARY | 2025-01-08 12:21 | XMS_ITS | Encounter Summary ---
Author Organization [employer] Address 75 [facility] 7t [place] [address] Care Team Providers Care Tester Operator Helper Name Role Phone Colby Hirsch AVIATION MECHANIC Unavailable Unavailable [facility] Primary Care Provider [phone] Reason for Visit * Reason Onset Date Comments Med Refill 01/01/2025 Encounter Details Date Type Department Care Team ([facility] st Contact Info) Description 01/01/2025 Refill [facility] MEDICINE 230 [place], [place] [phone] [facility] 230 [place] [address] Multiple joint pain Social History Tobacco Use [...] Telephone Encounter - Abigail Kelly RN - 01/05/2025 10:28 AM EDT TC placed to pt. To ensure pt. Aware rx was sent yesterday, pt. Verbalizes understanding and has noquestions or concerns * Telephone Encounter - Laian Hobbs - 01/04/2025 3:15 PM EDT TC from pt requesting status on medication refill for tramadol. Pt requesting a call back at [phone] (zambian) * Telephone Encounter - Abigail Kelly RN - 01/03/2025 8:59 AM EDT [facility] reviewed again today, rx pended. PCP OFF * Telephone Encounter - Abigail Kelly RN - 01/01/2025 3:32 PM EDT [facility] reviewed, pt. Picked up 28 day supply 12/07/24, rx will be due 01/04/25. Will pend to PCP Wednesday01/03/25 * Telephone Encounter - Eduardo Wallace - 01/01/2025 12:35 PM EDT TC from pt requesting medication refill. Medications needing refill : traMADol (Ultram) 50 MG tablet To be sent to: [facility] pharmacy documented in this encounter Plan of Treatment Upcoming Encounters Date Type Department Care Team (Late st Contact Info) Description 01/24/2025 2:00 PM EDT Clinical Support [address] [address] Kira Bansal, RN 01/24/2025 2:30 PM EDT Office Visit [address] [address] [place] [address] [address] documented as of this encounter Visit Diagnoses Diagnosis Multiple joint pain Pain in joint, multiple sites documented in this encounter Additional Health Concerns Assessment Noted Time PHQ-9 Depression Total Score: 0 10/24/19 25 1:15 PM EST documented as of this encounter Care Teams Tester Operator Helper Relationship Specialty Start Date End Date Yecenia Frias FNP [address] [place] [address] PCP - General Family Medicine 04/26/24 Colby Hirsch FNP Nurse Practitioner Family Medicine 07/13/23 Candice Ugarte Mycology TeacherPractice Architect 12/27/23 documented as of this encounter
--- OUTSIDE RECORDS SUMMARY | 2025-01-08 12:21 | XMS_ITS | Encounter Summary ---
Author Organization [employer] Address [address] [facility] [address] 7t [place] [address] Care Team Providers Care Portfolio Analyst Name Role Phone Radha Shah INCIDENT COMMANDER Primary Care Provider [phone] Colby Hirsch INCIDENT COMMANDER Unavailable Unavailable [facility] Primary Care Provider [phone] Reason for Visit * Reason Comments Med Refill Encounter Details Date Type Department Care Team (Late st Contact Info) Description 06/28/[address] [facility] [address] [place] [address] Radha Shah FNP [address] [place] [address] Schizoaffective disorder, depressive type (CMS/HCC) Social History [...] EDT Clinical Support [facility] MEDICINE [address] [place] [address] Kira Bansal RN 01/24/2025 2:30 PM EDT Office Visit [address] [address] Yecenia Frias [address] [address] documented as of this encounter Visit Diagnoses Diagnosis Schizoaffective disorder, depressive type ([facility]) Schizoaffective disorder, unspecified condition documented in this encounter Additional Health Concerns Assessment Noted Time PHQ-9 Depression Total Score: 6 06/15/20 23 10:23 AM EDT documented as of this encounter Care Teams Portfolio Analyst Relationship Specialty Start Date End Date Radha Shah FNP [address] [place] [address] PCP - General Family Medicine 04/21/23 04/25/24 Yecenia Frias FNP [address] [place] [address] PCP - General Family Medicine 04/26/24 Colby Hirsch FNP 230 [place] [address] Nurse Practitioner Family Medicine 07/13/23 Candice Ugarte Mitten SewerBread Wrapper Operator 12/27/23 documented as of this encounter
--- OUTSIDE RECORDS SUMMARY | 2025-01-08 12:21 | XMS_ITS | Encounter Summary ---
Author Organization [employer] Address [address] [facility] [address] 7t [place] [address] Care Team Providers Care Business Solution Analyst Name Role Phone Radha Shah FLOOR SPACE ALLOCATOR Primary Care Provider [phone] Colby Hirsch Unavailable Unavailable [facility] FLOOR SPACE ALLOCATOR Primary Care Provider [phone] Reason for Visit * Reason Onset Date Comments telephone call 10/29/2023 Encounter Details Date Type Department Care Team ([facility] st Contact Info) Description 10/29/2023 Refill [facility] MEDICINE [address] [place] [address] Radha Shah FNP [address] [place] [address] Multiple joint pain Social History Tobacco Use [...] does not remember the program name. A crab steamer from the program told her that if she still want to be in the program she needs a referral from PCP. Please call patient with any concern or questions. * Telephone Encounter - Celine Pate - 11/12/2023 9:46 AM EDT Patient walked in requesting a referral for a program. Patient does not remember the program name. A crab steamer from the program told her that if she still want to be in the program she needs a referral from PCP. Please call patient with any concern or questions. documented in this encounter Plan of Treatment Upcoming Encounters Date Type Department Care Team (Late st Contact Info) Description 01/24/2025 2:00 PM EDT Clinical Support [facility] MEDICINE [address] [place] [address] Kira Bansal RN 01/24/2025 2:30 PM EDT Office Visit [facility] MEDICINE [address] [place] [address] Yecenia Frias FNP [address] [place] [address] documented as of this encounter Visit Diagnoses Diagnosis Multiple joint pain Pain in joint, multiple sites documented in this encounter Additional Health Concerns Assessment Noted Time PHQ-9 Depression Total Score: 8 09/02/19 24 11:12 AM EST documented as of this encounter Care Teams Business Solution Analyst Relationship Specialty Start Date End Date Radha Shah FNP [address] [place] [address] PCP - General Family Medicine 04/21/23 04/25/24 Yecenia Frias FNP [address] [place] [address] PCP - General Family Medicine 04/26/24 Colby Hirsch FNP [address] [place] [address] Nurse Practitioner Family Medicine 07/13/23 Candice Ugarte Chicken VaccinatorElevator Mechanic Apprentice 12/27/23 documented as of this encounter
--- OUTSIDE RECORDS SUMMARY | 2025-01-08 12:21 | XMS_ITS | Encounter Summary ---
Author Organization [employer] Address [address] [facility] [address] 7t [place] [address] Care Team Providers Care Steam Turbine Assembler Name Role Phone Radha Shah PUBLIC RELATIONS SPECIALIST Primary Care Provider [phone] Colby Hirsch Unavailable Unavailable [facility] Primary Care Provider [phone] Reason for Visit * Reason Comments Med Refill Encounter Details Date Type Department Care Team (Late st Contact Info) Description 06/30/2023 Refill [facility] MEDICINE [address] [place] [address] Radha Shah FNP [address] [place] [address] Multiple joint pain Social History Tobacco Use [...] 01/24/2025 2:00 PM EDT Clinical Support [facility] MEDICINE [address] [place] [address] Kira Bansal RN 01/24/2025 2:30 PM EDT Office Visit [facility] MEDICINE [address] [place] [address] [place]ec[place] [address] [address] documented as of this encounter Visit Diagnoses Diagnosis Multiple joint pain Pain in joint, multiple sites documented in this encounter Additional Health Concerns Assessment Noted Time PHQ-9 Depression Total Score: 6 06/15/20 23 10:23 AM EDT documented as of this encounter Care Teams Steam Turbine Assembler Relationship Specialty Start Date End Date Radha Shah FNP [address] [place] [address] PCP - General Family Medicine 04/21/23 04/25/24 WadsworthYecenia whipple FNP [address] [place] [address] PCP - General Family Medicine 04/26/24 Colby Hirsch FNP 230 [place] [address] Nurse Practitioner Family Medicine 07/13/23 Candice Ugarte Patient RepresentativeInsecticide Mixer 12/27/23 documented as of this encounter
--- OUTSIDE RECORDS SUMMARY | 2025-01-08 12:21 | XMS_ITS | Encounter Summary ---
Author Organization [employer] Address [address] [facility] [address] 7t [place] [address] Care Team Providers Care Rotary Swaging Machine Operator Name Role Phone PabloRadha RETAIL SALES ASSOCIATE BILINGUAL Primary Care Provider [phone] Colby Hirsch Unavailable Unavailable [facility] Primary Care Provider [phone] Reason for Visit * Reason Comments Med Refill Encounter Details Date Type Department Care Team (Late st Contact Info) Description 01/04/2024 Refill [facility] MEDICINE 230 [place] [address] Colby Hirsch FNP Social History Tobacco Use [...] 01/24/2025 2:00 PM EDT Clinical Support [address] [address] Kira Bansal RN 01/24/2025 2:30 PM EDT Office Visit [facility] MEDICINE [address] [place] [address] Yecenia Frias FNP [address] [place] [address] documented as of this encounter Visit Diagnoses Not on filedocumented in this encounter Additional Health Concerns Assessment Noted Time PHQ-9 Depression Total Score: 6 12/28/19 24 11:17 AM EDT documented as of this encounter Care Teams Rotary Swaging Machine Operator Relationship Specialty Start Date End Date Radha Shah FNP [address] [place] [address] PCP - General Family Medicine 04/21/23 04/25/24 RooseveltYecenia whipple FNP [address] [place] [address] PCP - General Family Medicine 04/26/24 oClby Hirsch FNP [address] [place] [address] Nurse Practitioner Family Medicine 07/13/23 Candice Ugarte Printing Services CoordinatorDecontaminator 12/27/23 documented as of this encounter
--- OUTSIDE RECORDS SUMMARY | 2025-01-08 12:21 | XMS_ITS | Encounter Summary ---
Author Organization [employer] Address [address] [facility] [address] [place] [address] Care Team Providers Care Contracts Representative Name Role Phone Colby Hirsch WOOD CARVING MACHINE OPERATOR Unavailable Unavailable [facility] Primary Care Provider [phone] Reason for Visit * Reason Comments Med Refill Encounter Details Date Type Department Care Team ([facility] st Contact Info) Description 10/31/2024 Refill [facility] [address] [place] [address] [facility] [address] [place] [address] Type 2 diabetes mellitus without complication, with long-term current use of insulin ([facility]) Social History Tobacco Use Types Packs/Day Years [...] EDT Clinical Support [facility] [address] [place] [id number] Kira Bansal RN 01/24/2025 2:30 PM EDT Office Visit [facility] [address] [place] [id number] Yecenia Frias FNP [address] [place] [address] documented as of this encounter Visit Diagnoses Diagnosis Type 2 diabetes mellitus without complication, with long-term current use of insulin ([facility]) documented in this encounter Additional Health Concerns Assessment Noted Time PHQ-9 Depression Total Score: 0 10/24/19 25 1:15 PM EST documented as of this encounter Care Teams Contracts Representative Relationship Specialty Start Date End Date Yecenia Frias FNP [address] [place] [id number] PCP - General Family Medicine 04/26/24 Colby Hirsch FNP Nurse Practitioner Family Medicine 07/13/23 Candice Ugarte Cigarette Packing Machine OperatorOperations Label Clerk 12/27/23 documented as of this encounter
--- OUTSIDE RECORDS SUMMARY | 2025-01-08 12:21 | XMS_ITS | Encounter Summary ---
Author Organization [employer] Address [address] [facility] 7[address] [place] [address] Care Team Providers Care Credit Card Clerk Name Role Phone Colby Hirsch MOLD SHEET CLEANER Unavailable Unavailable [facility] Primary Care Provider [phone] Reason for Visit * Reason Onset Date Comments Med Refill 2024 Encounter Details Date Type Department Care Team ([facility] st Contact Info) Description 2024 Telephone [facility] MEDICINE [address] [place] [address] [employer] [address] [place] [address] Med Refill Social History Tobacco Use Types [...] 50 MG tablet To be sent to: [facility] documented in this encounter Plan of Treatment Upcoming Encounters Date Type Department Care Team (Late st Contact Info) Description 01/24/2025 2:00 PM EDT Clinical Support [facility] MEDICINE [address] [place] [id number] Kira Bansal RN 01/24/2025 2:30 PM EDT Office Visit [facility] MED[facility]INE [address] [place] [id number] SewickleyYecenia FNP [address] [place] [address] documented as of this encounter Visit Diagnoses Not on filedocumented in this encounter Additional Health Concerns Assessment Noted Time PHQ-9 Depression Total Score: 0 10/24/19 25 1:15 PM EST documented as of this encounter Care Teams Credit Card Clerk Relationship Specialty Start Date End Date Yecenia Frias FNP [address] [place] [address] PCP - General Family Medicine 04/26/24 Colby Hirsch FNP Nurse Practitioner Family Medicine 07/13/23 Candice Ugarte Tumbler TenderSatellite Specialist 12/27/23 documented as of this encounter
--- OUTSIDE RECORDS SUMMARY | 2025-01-08 12:21 | XMS_ITS | Clinical Summary ---
Author Organization [employer] Address [address] [facility] [address] [place] [address] Care Team Providers Care Material Specialist Name Role Phone Colby Hirsch STATOR TESTER Unavailable Unavailable [facility] STATOR TESTER Primary Care Provider [phone] Allergies Active Allergy Reactions Criticality Noted Date [...] MG tabletIndications :Major depression with psychotic features ([facility]) Take 1 tablet (7.5 mg) by mouth at bedtime. 30 tablet 1 024 Active risperiDONE (RisperDAL) 2 MG tabletIndications :Major Depressive Disorder Take 1 tablet (2 mg) by mouth at bedtime. 30 tablet 1 024 Active Blood Glucose Monitoring Suppl (DraftStyle Lite) w/Device kitIndications:Ty pe 2 diabetes mellitus without complication, with long-term current use of insulin ([facility]) 1 Device 2 times daily. 1 [...] capsule 3 025 Active oxymetazoline (Afrin Nasal [place]) 0.05 % nasal sprayIndications: Viral upper respiratory illness Administer 2 sprays into each nostril every 12 (twelve) hours if needed for congestion for up to 2 days. Do not use for more than 3 days. 30 mL 025 Active Dulaglutide (Trulicity) 0.75 MG/0.5ML solution auto-injectorIndi cations:Type 2 diabetes mellitus without complication, with long-term current use of insulin ([facility]) Inject 0.75 mg under the skin [...] FOR MILD PAIN 30 tablet 1 Active beta carotene (vitamin A) 3 MG (20274 UT) capsule TAKE 1 CAPSULE BY MOUTH EVERY MORNING 90 capsule 1 Active baclofen (Lioresal) 10 MG tablet Take one tablet TID PRN 30 tablet Active cholecalciferol (Vitamin D-3) 20 MCG (800 UNIT) tablet Take 1 tablet (20 mcg) by mouth Once per day. 30 tablet 1 025 2024 Active traMADol (Ultram) 50 MG tabletIndications :Multiple joint pain Take 1 tablet (50 mg) by mouth every 12 (twelve) hours if needed for severe pain for up to 28 days. 56 tablet 025 2024 Active D3 Super Strength 50 MCG (2000 UT) capsule TAKE 1 CAPSULE BY MOUTH DAILY IN THE MORNING 90 capsule 3 024 2024 Discontinued traMADol (Ultram) 50 MG tabletIndications :Multiple joint pain Take 1 tablet (50 mg) by mouth every 12 (twelve) hours if needed for severe pain for up to 28 days. 56 tablet 025 2024 Discontinued(R eorder (will [...] mechanism to manage sxs, provided her with [facility] Crisis number for after hrs support. [...] skills discussed in session. She will contact [facility] crisis number as needed. Patient with [...] services PLAN: 1. Follow up with [facility]: Not recommended for follow-up 2. Patient goal [...] in person with a female clinician in [place]. At this time Sacha Rodriguez meets criteria for Visit Diagnoses: Anxiety Disorder Unspecified Patient ready to address current needs Yes Strengths include coping mechanisms of walking and distracting self PLAN: 1. Follow up with [facility]: Not recommended for follow-up 2. Patient goal [...] >60 CM >60 CM Comment: NOTE: ??For -[place] individuals, multiply the result ? by 1210.Chronic Kidney Disease: ??Estimated GFR < 60 mL/min/1.30x6Skcmuk Kidney Disease: ??Estimated GFR < 15 mL/min/1.73m2 [...] >60 CM >60 CM Comment: NOTE: ??For -[place] individuals, multiply the result ? by 1.210.Chronic Kidney Disease: ??Estimated GFR < 60 mL/min/1.86i7Cnoyck Kidney Disease: ??Estimated GFR < 15 mL/min/1.73m2 [...] retiring patient is now referred to new [facility] psychiatric provider. Pt is aware that appts will be via televisit and that provider will not be an [facility] employee. She gives permission to share PHI. [...] night at bedtime (not prn). Based on COUNTER WAITRESS/WAITER notes, she appears to be taking Clonazepam [...] organization. Date Type Department Care Team Description 01/05/2025 Telephone [facility] [address] [place] [phone] Quin Victoria MD Results 01/03/2025 Telephone [facility] [address] [place] [phone] [place] [facility] telephone call 01/02/2025 Refill [facility] [address] [place] [phone] [place] [facility] Viral upper respiratory illness 01/01/2025 Orders Only GENERIC EXTERNAL DATA DEPARTMENT Provider, Generic External Data 01/01/2025 Refill [facility] [address] [place] [phone] [place] [facility] Multiple joint pain 12/25/2024 Orders Only GENERIC EXTERNAL DATA DEPARTMENT Provider, Generic External Data 12/25/2024 Telephone [facility] [address] [place] [phone] Eloisa Aragon NP 12/22/2024 1:20 PM EDT Office Visit [facility] [address] [place] [phone] Bone pain (Primary Dx) 12/07/2024 11:20 AM EDT Office Visit [facility] [address] [address] Quin Victoria MD Left wrist pain (Primary Dx); Injury of left wrist, initial encounter 12/07/2024 Travel 2024 Telephone [facility] [address] [place] [address] Yecenia Frias FNP Med Refill 2024 Refill [facility] [address] [place] [address] Yecenia Frias FNP 12/04/2024 Refill [facility] [address] [place] [address] Yecenia Frias FNP Viral upper respiratory illness; Multiple joint pain 11/28/2024 Refill [facility] [address] [place] [address] Yecenia Frias FNP Arthralgia, unspecified joint 11/27/2024 Telephone [facility] [address] [place] [address] Yecenia Frias FNP Nurse Triage 11/14/2024 Patient Outreach [facility] [address] [place] [phone] Yecenia Frias FNP Care Coordination (C3 -[facility] Kelly Obrien telephone call outreach) 11/14/2024 Patient Outreach [facility] [address] [place], [place] [address]mek[address] [place] [address] Yecenia Frias FNP Care Coordination 11/06/2024 Refill [facility] [address] [place] [address] Yecenia Frias FNP Multiple joint pain 11/03/2024 Population Health Risk Score Community [facility] (C3) Department [address] [place] [phone] Provider, Population Health Generic 10/31/2024 Patient Outreach [facility] [address] [place] [address] Yecenia Frias FNP Care Coordination ([facility]3 -[facility] Kelly Obrien telephone call outreach) 10/31/2024 Refill [facility] [address] [place] [address] [facility] Type 2 diabetes mellitus without complication, with long-term current use of insulin (CMS/HCC) 10/27/[address] [address] [facility] Results 10/27/2024 Orders Only [facility] [address] [place] [phone] [facility] Other polyneuropathy (Primary Dx) 10/24/2024 1:00 PM EST Clinical Support [address] [address] Kira Bansal RN Chronic midline back pain, unspecified back location (Primary Dx) 10/24/[address] [address] Kira Bansal RN Chronic midline back pain, unspecified back location (Primary Dx) 10/24/2024 Travel 10/23/2024 1:00 PM EST Office Visit [address] [address] [facility] Type 2 diabetes mellitus without complication, with long-term current use of insulin (CMS/HCC) (Primary Dx); Other polyneuropathy; Dietary counseling; Exercise counseling; Encounter for immunization 10/23/2024 Travel 10/23/2024 Outside Procedure [facility] [address] [place] [address] Parveen Elizabethn, OD Presbyopia of both eyes (Primary Dx) 10/20/2024 9:45 AM EST Office Visit [facility] [address] [place] [address] Parveen Elizabethn, OD Regular astigmatism of both eyes (Primary Dx) 10/20/2024 Travel 10/13/2024 Patient Outreach [address] [address] [facility] Care Coordination (C3 -[facility] Kelly Obrien telephone call outreach ) 10/12/2024 2:00 PM EST Office Visit [facility] ADULT DENTAL [address] [place] [address] [phone] Phillip Borrego, DMD 10/12/2024 Telephone [facility] [address] [place] [address] [phone] Bethany Bond MD Results 10/12/2024 Orders Only [address] [phone] Bethany Bond MD Urinary tract infection symptoms (Primary Dx) 10/11/2024 Patient Outreach [address] [phone] Yecenia Frias FNP Pre-visit Planning ((Unable to reach for PVP screening, LVM)) 10/11/[address] [phone] Yecenia Frias FNP Arthralgia, unspecified joint from Last 3 Months Immunizations Immunization Administration Dates Next Due Hep A, Adult 10/11/2008 Hep B, adult 05/21/2008,09/22/2007,06/29/2007 Influenza, Split (incl. manuel fied surface antigen) 08/25/2013 Pfizer Covid-19 Vaccine 12+ 05/05/2021, 1 Pfizer Covid-19 Vaccine 12+ Bivalent 10/08/2022 Pneumococcal [...] Description 01/24/2025 2:00 PM EDT Clinical Support [facility] [address] [place] [address] Kira Bansal RN 01/24/2025 2:30 PM EDT Office Visit [facility] [address] [place] [address] [place], Yecenia, STATOR TESTER [address] [place] [address] Health Maintenance Due Date Last Done Comments [...] 12/12/2020, Additional history exists Diabetes: Hemoglobin A1C 07/04/2025 025, 10/23/2024, 07/24/2024, Additional history exists SDOH Screening 07/25/2025 07/25/2024 [...] patient's age to complete this topic Meningococcal B Vaccine Aged Out No l onger eligible based on patient's age to complete [...] Procedure Name Priority Date/Time Associated Diagnosis Comments HEMOGLOBIN A1C Routine 01/01/2025 2:03 PM EDT GLUCOSE, WHOLE BLOOD Routine 01/01/2025 1:09 PM [...] long-term current use of insulin (CMS/HCC) POCT GLYCATED HEMOGLOBIN, TOTAL Routine 10/23/2024 1:15 PM EST Type 2 diabetes mellitus without complication, with long-term current use of insulin (CMS/HCC) DENTURE ADJUSTMENT Routine 10/12/2024 2: 00 PM EST LIPID PANEL, STANDARD Routine 09/25/2024 1:22 PM [...] Recently Relevant to Health Maintenance Results * Hemoglobin A1c (01/01/2025 2:03 PM EDT) Hemoglobin A1c 5.7 <6.0 % [facility] Comment:Hemoglobin A1C Refer ence Range Adults: 4.8 - 6.0 % Non diabetic: < 6.0 % Goal: < 7.0 %Additional Action Suggested: > 8.0 %Note: Hemoglobin A1c results are invalid for patients with abnormal amounts of HbF. Blood transfusions may impact the HbA1c concentration in the patient sample. Estimated Average Glucose 117 mg/dL [facility] Comment:eAG = Estimated ave rage glucose which is %A1C expressed asaverage glucose, using the formula of the G3I-DafhimwIesttab Glucose study (ADAG), Diabetes Care, Vol.31,#8,Mar. 2007 01/01/2025 2:03 PM EDT 01/01/2025 2:03 PM EDT us Generic External Data Provider LAB BLOOD ORDERAB LES Final Result [facility] [address] [place] [address] [phone] * Glucose, Whole Blood (01/01/2025 1:09 PM EDT) Glucose, Whole Blood 101 60 - 115 mg/dL [facility] Comment:METER #: [id number] Testing performed in the Endocrinology Department [address] , [address], [facility]. 01/01/2025 1:09 PM EDT 01/01/2025 1:12 PM EDT Generic External Data Provider LAB BLOOD ORDERAB LES Final Result Performing Organization Address [facility] Co de Phone Number [facility] [address] [place] [phone] * SARS-CoV-2 RNA, Influenza A/B, and RSV RNA, Ql NAAT (12/25/2024 7:51 PM EDT) Influenza A PCR NEGATIVE Negative [facility] Influenza B PCR NEGATIVE Negative [facility] Resp Syncy Virus RNA Qual PCR NEGATIVE Negative [facility] SARS COV2 PCR NEGATIVE Negative [facility] Comment:All test results mus t be [...] use by authorized laboratories.Testing performed on the [employer] GeneXpert utilizingreal-time RT-PCR.All SARS CoV2 and positive influenza A/B results arereported to [facility]. 12/25/2024 7:51 PM EDT 12/25/2024 7:54 PM EDT Generic External Data Provider LAB MICROBIOLOGY - GENERAL ORDERABLES Final Result Performing Organization Address [facility]/ZIP Co de Phone Number [facility] [address] [place] [phone] * (ABNORMAL) Vitamin D, 25-Hydroxy, Total, Immunoassay (12/22/2024 2:10 PM EDT) Vitamin D 25-OH Total 29.6(L) >30 ng/mL [facility] Comment: Health Based Reference Values*< 20 ??ng/mL ??Qnycddscv91-99 ng/mL ??Insufficient> 30 ??ng/mL ??Sufficient*Hector GALE. N [...] EDT 12/22/2024 4:04 PM EDT Eloisa Aragon NP LAB BLOOD ORDERABLES Final Resu lt [facility] [address] [place] [phone] * (ABNORMAL) CBC auto differential (12/22/2024 2:10 PM EDT) White Blood Count 9.0 4.8 - 10.8 X10*3/uL [facility] Red Blood Count 4.52 4.20 - 5.50 X10*6/uL [facility] Hemoglobin 12.1 12.0 - 16.0 g/dl [facility] Hematocrit 37.6 37.0 - 47.0 % [facility] Mean Corpuscular Volume 83.2 80.0 - 98.0 fL [facility] Mean Corpuscular Hemoglobin 26.8(L) 27.0 - 33.0 pg [facility] Mean Corpuscular HGB Conc 32.2 31.0 - 35.0 g/dl [facility] Red Cell Distribution Width 13.6 11.0 - 16.0 % [facility] Platelet Count 265 160 - 400 X10*3/uL [facility] Mean Platelet Volume 10.4 9.4 - 12.3 fL [facility] Neutrophils Percent Auto 62.8 45 - 73 % [facility] Imm Gran Pct Auto 0.2 0.0 - 0.4 % [facility] Lymphocytes Percent Auto 29.1 20 - 40 % [facility] Monocytes Percent Auto 6.0 2 - 11 % [facility] Eosinophils Percent Auto 1.7 0 - 4 % [facility] Basophils Percent Auto 0.2 0 - 2 % [facility] NRBC Pct Auto 0.0 0.0 - 0.2 /100WBC [facility] Neutrophils Absolute Auto 5.6 2.0 - 8.3 x10*3/uL [facility] Imm Gran Abs Auto 0.02 0.00 - 0.03 X10*3/uL [facility] Lymphocytes Absolute Auto 2.6 1.2 - 4.9 X10*3/uL [facility] Monocytes Absolute Auto 0.5 0.1 - 1.2 X10*3/uL [facility] Eosinophils Absolute Auto 0.2 0.0 - 0.4 X10*3/uL [facility] Basophils Absolute Auto 0.0 0.0 - 0.2 X10*3/uL [facility] NRBC Abs Auto 0.000 0.0 - 0.012 X10*3/uL [facility] Blood Venous blood specimen / Unknown 12/22/2024 2:10 PM EDT 12/22/2024 4:04 PM EDT us Eloisa Aragon NP LAB BLOOD ORDERABLES Final Resu lt [facility] [address] [place] [phone] * Comprehensive Metabolic Panel (12/22/2024 2:10 PM EDT) Sodium 142 135 - 145 mmol/L [facility] Potassium 3.5 3.3 - 5.1 mmol/L [facility] Chloride 107 96 - 108 mmol/L [facility] Carbon Dioxide 25 22 - 29 mmol/L [facility] Anion Gap 14 12 - 20 [facility] Urea Nitrogen (BUN) 10 9 - 16 mg/dL [facility] Creatinine, Serum 0.63 0.5 - 1.4 mg/dL [facility] Estimated Glomerular Filt Rate >60 [facility] Comment:Chronic Kidney Disea se: Estimated GFR < 60 mL/min/1.07u5Yguknd Kidney Disease: Estimated GFR < 15 mL/min/1.73m2 Glucose 115 60 - 115 mg/dL [facility] Calcium 9.8 8.4 - 10.2 mg/dL [facility] Bilirubin, Total 0.4 0.0 - 1.0 mg/dL [facility] Aspartate Amino Transferase 26 5 - 31 U/L [facility] Alanine Aminotransferase 13 0 - 31 U/L [facility] Total Protein 7.5 6.5 - 8.0 g/dL [facility] Albumin Level 4.2 3.5 - 5.0 g/dL [facility] Alkaline Phosphatase 114 39 - 117 U/L [facility] Blood Venous blood specimen / Unknown 12/22/2024 2:10 PM EDT 12/22/2024 4:04 PM EDT us Eloisa Aragon CLINICAL OPERATIONS SPECIALIST LAB BLOOD ORDERABLES Final Resu lt [facility] [address] [place] [phone] * XR Wrist 3+ Views Left (12/07/2024 11:57 AM EDT) Anatomical Region Laterality Modality Upper Extremities, Wrist Left Radiogr aphic Imaging 12/07/2024 11:5 7 AM EDT Narrative 12/07/2024 2:08 PM EDT ?[facility] ?[address] ?[place] [address] ?XRay Report ? Signed ? Patient: Roach Rodriguez,Yamarys ?MR#: [id number] ?? [id number] ? : 1980 ?Acct:[id number] ? Age/Sex: 44 / F ?ADM Date: 12/07/24 ? Loc: HO.HHCX ? Attending Dr: Quin Victoria MD ? Ordering Physician: Quin Victoria MD ?? Date of Service: 12/07/24 ?? Procedure(s): XR wrist LT min 3V ?? Accession Number(s): [id number] ? cc: Quin Victoria MD ? EXAMINATION: [...] DD/ 1157 ? TD/TT: 12/07/24 1200 ? Day Porter: ? Procedure Note Sima, Image - 12/07/[address] [address] XRay Report Signed Patient: Xavier ContrerasR#: [id number] : 1980Acct:[id number] Age/Sex: 44 / FADM Date: 12/07/24 Loc: HO.HHCX Attending Dr: Quin Victoria MD Ordering Physician: Quin Victoria MD Date of Service: 12/07/24 Procedure(s): XR wrist LT min 3V Accession Number(s): [id number] cc: Quin Victoria MD EXAMINATION: XR WRIST, [...] 12/07/24 1405 DD/ 1157 TD/TT: 12/07/24 1200 Day Porter: Quin Victoria MD IMG XR PROCEDURES Final Re sult * POCT CASSI-14 Urine Drug Screen (10/24/2024 1:02 PM EST) Urine Urine specimen obtained by clean catch procedure / Unknown 10/24/2024 1:02 PM EST Narrative Kira Bansal RN - 10/24/2024 1:02 PM EST UTOX cup Lot#[id number] Exp. 04/11/26 Internal Pass Control UTOX Negative for all substances. Cheryl Galan DO POINT OF CARE TEST ENTER/SANCHO T ORDERABLES Final Result * Vitamin B12/Folate, Serum Panel (10/23/2024 2:05 PM EST) Vitamin B12 273 200 - 900 pg/mL [facility] Comment:NORMAL 200-900 PG/ML INDETERMINATE 160-199 PG/ML DEFICIENT < 160 PG/ML Folate 11.9 > or = 4.0 ng/mL [facility] Comment:Reference Values:> o r = 4.0 ng/mL< 4.0 ng/mL suggests folate deficiency Methotrexate, aminopterin and folinic acid(leucovorin) are chemotherapeutic agents whose molecularstructures are similar to folate; therefore, the Architectfolate assay cannot be used for patients using these drugs. Blood Venous blood specimen / Unknown 10/23/2024 2:05 PM EST 10/23/2024 4:20 PM EST [facility] LAB BLOOD ORDERABLES Final Re sult Performing Organization Address [facility] Co de Phone Number [facility] [address] [place] [phone] * TSH W/Reflex to FT4 (10/23/2024 2:05 PM EST) Pathologist [facility] TSH reflex Free T4 1.74 0.32 - 4.0 uIU/mL [facility] Blood Venous blood specimen / Unknown 10/23/2024 2:05 PM EST 10/23/2024 4:20 PM EST [facility] LAB BLOOD ORDERABLES Final Re sult Performing Organization Address [facility] de Phone Number [facility] [address] [place] [phone] * HIV-1/2 Antigen and Antibodies, Fourth Generation, with Reflexes (10/23/2024 2:05 PM EST) HIV AB/AG Nonreactive Nonreactive [facility] Comment:HIV-1 p24 Ag and/or HIV-1/HIV-2 Ab not detected.A test result that is nonreactive does not exclude thepossibility of exposure to or infection with HIV-1 and/orHIV-2. Nonreactive results in this assay for individualswith prior exposure to HIV-1 and/or HIV-2 may be due toantigen and antibody levels that are below the limit ofdetection of this assay.[employer] HIV Ag/Ab Combo assay result andsupplemental assay results should be interpreted inconjunction with the patient's clinical presentation,history and other laboratory results. If the results areinconsistent with clinical evidence, additional testing issuggested to confirm the result. Blood Venous blood specimen / Unknown 10/23/2024 2:05 PM EST 10/23/2024 4:20 PM EST Result [facility] LAB BLOOD ORDERABLES Final Re sult Performing Organization Address [facility] Co de Phone Number [facility] [address] [place] [phone] * Ferritin (10/23/2024 2:05 PM EST) Pathologist [facility] Ferritin 126 10 - 250 ng/mL [facility] Blood Venous blood specimen / Unknown 10/23/2024 2:05 PM EST 10/23/2024 4:20 PM EST Result [facility] LAB BLOOD ORDERABLES Final Re sult Performing Organization Address [facility] de Phone Number [facility] [address] [place] [phone] * POCT Glucose (10/23/2024 1:17 PM EST) Pathologist [facility] Glucose Blood, POC 101 60 - 200 mg/dL Blood Capillary blood specimen / Unknown 10/23/2024 1:17 PM EST Result [facility] POINT OF CARE TEST ENTER/EDIT ORDERABLES Final Result * POCT HGB A1C (10/23/2024 1:15 PM EST) [facility] Hemoglobin A1C 5.7 4.0 - 6.0 % Blood 10/23/2024 1:15 PM EST Result [facility] POINT OF CARE TEST ENTER/EDIT ORDERABLES Final Result * (ABNORMAL) Lipid Panel, Standard (09/25/2024 1:22 PM EST) Triglycerides 109 <150 mg/dL [facility] Comment:Desirable Triglyceri de: less than 150 mg/dLBorderline High Triglyceride 150-199 mg/dLHigh Triglyceride: 200-499 mg/dLVery High Triglyceride: greater than or equal to 5OO mg/dL Cholesterol 128 <200 mg/dL [facility] Comment:Desirable Cholestero l: less than 200 mg/dLBorderline High Cholesterol: 200-239 mg/dLHigh Cholesterol: greater than 239 mg/dL LDL Cholesterol Calculated 71 <100 mg/dL [facility] Comment:Desirable LDL: less than 100 mg/dLNear Optimal/Above Optimal LDL: 110- 129 mg/dLBorderline High LDL: 130-159 mg/dLHigh LDL: 160-189 mg/dLVery High LDL: greater than or equal to 190 mg/dL HDL Cholesterol 36(L) >40 mg/dL [facility] Comment:Desirable HDL: great er than 40 mg/dL Note: This HDL assay may give artificially low results in patients with liver disease. 09/25/2024 1:22 PM EST 09/25/2024 4:00 PM EST us Generic External Data Provider LAB BLOOD ORDERAB LES Final Result [facility] [address] [place] [phone] * Albumin, Random Urine W/Creatinine (02/07/2024 2:09 PM EDT) Creatinine, Urine 164.92 mg/dL [facility] Microalbumin Urine 16.0 mg/L [facility] Microalbum Creatinine Ratio Ur 9.7 <30 ug/mg cr [facility] Comment:Albumin/Creatinine R atio Reference Ranges: Normal: < 30 ug/mg creatinine Microalbuminuria: 30 - 300 ug/mg creatinineClinical Albuminuria: > 300 ug/mg creatinine Urine (Urine, Random) 02/07/2024 2:09 PM EDT 02/07/2024 3:55 PM EDT us Radha Shah STATOR TESTER LAB URINE ORDERABLES Final Resu lt [facility] [address] [place] [phone] [phone] * BI Mammogram Screening Tomosynthesis Bilateral (11/16/2023 1:25 PM EDT) Anatomical Region Laterality Modality Breast Bilateral Mammography 11/16/2023 1:25 PM EDT Narrative 12/02/2023 6:15 AM EDT ? [facility] ? [address] ?[place] [address] ? Mammography Report ? Signed ? Patient: Sacha Contreras ?MR#: [id number] ?? [id number] ? : 1980 ?Acct:[id number] ? Age/Sex: 42 / F ?ADM Date: 11/16/23 ? Loc: HO.MAMMO ? Attending Dr: Radha Shah CLINICAL OPERATIONS SPECIALIST ? Ordering Physician: Radha Shah CLINICAL OPERATIONS SPECIALIST ?Results: 1Negativ ?? e ? Date of Service: 11/16/23 ?Follow Up: 1 Year From Orig ?? inal Mammogram ? Procedure(s): MM tomosynthesis screening BI ?? Accession Number(s): [id number] ? cc: Radha Shah CLINICAL OPERATIONS SPECIALIST ? EXAMINATION: ?? MM SCREENING [...] 0611 ? DD/ 1325 ? TD/TT: ? Day Porter: ? Procedure Note Donlatriciainterpreter, Image - 12/02/2023 [facility] [address] [place] [address] Mammography Report Signed Patient: Xavier ContrerasR#: [id number] : 1980Acct:[id number] Age/Sex: 42 / FADM Date: 11/16/23 Loc: HO.MAMMO Attending Dr: Radha Shah CLINICAL OPERATIONS SPECIALIST Ordering Physician: Radha Shah NPResults: 1Negativ e Date of Service: 11/16/23Follow Up: 1 Year From Orig inal Mammogram Procedure(s): MM tomosynthesis screening BI Accession Number(s): [id number] cc: Radha Shah CLINICAL OPERATIONS SPECIALIST EXAMINATION: MM SCREENING DIGITAL BREAST [...] in OV> 12/02/23 0611 DD/ 1325 TD/TT: Day Porter: Radha Shah STATOR TESTER IMG BI PROCEDURES Final Result * (ABNORMAL) Hepatitis Panel, General (02/22/2023 1:46 PM EDT) Hepatitis A Antibody Total REACTIVE( A) NON-REACT TAWNYA [employer] Comment: For additional information, please refer to http://Andigilog.Waicai/faq/FHQ684 (This link is being provided for informational/ educational purposes only.) Hepatitis B Surface Antibody QL REACTIVE( A) NON-REACT TAWNYA [employer] Hepatitis B Surface Ag NON-REACT TAWNYA NON-REACT TAWNYA [employer] Comment: For additional information, please refer to http://Andigilog.Waicai/faq/AVJ745 (This link is being provided for informational/ educational purposes only.) Hepatitis B Core Antibody Total NON-REACT TAWNYA NON-REACT TAWNYA [employer] Comment: For additional information, please refer to http://SIFTSORT.COM/faq/IED831 (This link is being provided for informational/ educational purposes only.) Hepatitis C Antibody NON-REACT TAWNYA NON-REACT TAWNYA [employer] [facility] Comment: HCV antibody was non-reactive. There is no laboratory evidence of HCV infection. In most cases, no further action is required. However, if recent HCV exposure is suspected, a test for HCV RNA (test code 35551) is suggested. For additional information please refer to http://Andigilog.Waicai/faq/VPD87q4 (This link is being provided for informational/ educational purposes only.) 02/22/2023 1:46 PM EDT 02/22/2023 1:46 PM EDT Narrative [facility] - 02/26/2023 7:51 PM EDT FASTING:NO FASTING: NO Marc Nicolas [facility] BLOOD ORDERABLES Final Res ult [facility] [address], [place] [address] [employer] [place] [employer] [address] [place] [address] from Last 3 Months or Most Recently Relevant to Health Maintenance Insurance [facility] [place] STAND ADULT Care Teams Material Specialist Relationship Specialty Start Date End Date Yecenia Frias FNP [address] [place] [address] PCP - General Family Medicine 04/26/24 Colby Hirsch FNP Nurse Practitioner Family Medicine 07/13/23 Candice Ugarte Co Founder And CeoRegistered Public Health Nurse 12/27/23
--- OUTSIDE RECORDS SUMMARY | 2025-01-08 12:21 | XMS_ITS ---
Author Organization [facility] Address [address] [place] [address] Care Team Providers Care Route Sales Delivery Drivers Supervisor Name Role Phone Radha Rodriguez Primary Care Provider Jaylan Clancy Unavailable [phone] REASON FOR VISIT cancelled appt on 06/20/2024 Encounters Encounter Location Date Provider Diagnosis [facility] [address] [place] [address] 06/16/2024 Jaylan Neal Plan Of Treatment No Information Progress Notes * ABA LEUNGSDOB: 0 (43 yo F)Acc No.[id number]:06/16/2024 Patient:?HARMAN LEUNG :1980???Age:43 Y???Sex:Female Address:[address], [place], [address] * true * Date:? Generated for Hei hcris/Lisa/eTransmitting on:?01/08/2025 12:20 PM EDT
--- OUTSIDE RECORDS SUMMARY | 2025-01-08 12:22 | XMS_ITS | Encounter Summary ---
Author Organization [employer] Address [address] 7t [place] [address] Care Team Providers Care Family Intervention Specialist Name Role Phone Radha Shah SHRIMP PEELING MACHINE OPERATOR Primary Care Provider [phone] Colby Hirsch Unavailable Unavailable [facility] Primary Care Provider [phone] Encounter Details Date Type Department Care Team (Late st Contact Info) Description 02/17/2024 Community Care Management [facility] [address] [place] [address] Radha Shah FNP [address] [place] [address] Social History Tobacco Use Types Packs/Day Years [...] 01/24/2025 2:00 PM EDT Clinical Support [address] [address] Kira Bansal RN 01/24/2025 2:30 PM EDT Office Visit [address] [address] Yecenia Frias FNP [address] [place] [address] documented as of this encounter Visit Diagnoses Not on filedocumented in this encounter Additional Health Concerns Assessment Noted Time PHQ-9 Depression Total Score: 6 12/28/19 24 11:17 AM EDT documented as of this encounter Care Teams Family Intervention Specialist Relationship Specialty Start Date End Date Radha Shah FNP [address] [place] [address] PCP - General Family Medicine 04/21/23 04/25/24 Yecenia Frias FNP [address] [place] [address] PCP - General Family Medicine 04/26/24 Colby Hirsch FNP [address] [place] [address] Nurse Practitioner Family Medicine 07/13/23 Candice Ugarte Cotton Classer AideTree Girdler 12/27/23 documented as of this encounter
--- OUTSIDE RECORDS SUMMARY | 2025-01-08 12:22 | XMS_ITS | Encounter Summary ---
Author Organization [employer] Address [address] [facility] 7t [place] [address] Care Team Providers Care Fire Services Plumber Name Role Phone Radha Shah Primary Care Provider [phone] Colby Hirsch Unavailable Unavailable [facility] Primary Care Provider [phone] Reason for Referral * Consultation (Routine) - Closed Specialty Diagnoses / Procedures Referred By Aminta anderson Referred To Contact Diagnoses Routine adult health maintenance Radha Shah FNP [address] [place] [address] Phone: tel: fax: [address] [address] Phone: tel: fax: Referral ID Status Reason Start Date Expiration Date V isits Requested Visits Authorized [id number] Closed Specialty Services Required 02/16/2024 02/15/2025 1 1 Encounter Details Date Type Department Care Team (Late st Contact Info) Description 02/16/2024 Orders Only [facility] & PEDS [address] [place] [address] Radha Shah FNP [address] [place] [address] Routine adult health maintenance (Primary Dx) Social [...] Description 01/24/2025 2:00 PM EDT Clinical Support [facility] [address] [place] [address] Kira Bansal, MERDEITH 01/24/2025 2:30 PM EDT Office Visit [facility] [address] [place] [address] Yecenia Frias FNP [address] [place] [address] Scheduled Referrals Name Type Priority Associated Diagnoses [...] documented as of this encounter Care Teams Fire Services Plumber Relationship Specialty Start Date End Date Radha Shah FNP [address] [place] [address] PCP - General Family Medicine 04/21/23 04/25/24 AltagraciaYecenia whipple FNP [address] [place] [address] PCP - General Family Medicine 04/26/24 Colby Hirsch FNP [address] [place] [address] Nurse Practitioner Family Medicine 07/13/23 Candice Ugarte Statement Services RepresentativeWallcovering Hanger 12/27/23 documented as of this encounter
--- OUTSIDE RECORDS SUMMARY | 2025-01-08 12:22 | XMS_ITS | Encounter Summary ---
Author Organization [employer] Address [address] [facility] 7t [place] [address] Care Team Providers Care Basin Finish Operator Tig Welder Name Role Phone Marc Nicolas Primary Care Provider Unavail able aRdha Shah CRAB CATCHER Primary Care Provider [phone] Colby Hirsch Unavailable Unavailable [facility] CRAB CATCHER Primary Care Provider [phone] Reason for Visit * Reason Comments Med Refill Encounter Details Date Type Department Care Team (Late Contact Info) Description 03/10/2023 Refill [facility] [address] [place] [address] Marc Nicolas AGNP Mixed anxiety and depressive [...] Description 01/24/2025 2:00 PM EDT Clinical Support [facility] [address] [place] [address] Kira Bansal RN 01/24/2025 2:30 PM EDT Office Visit [facility] [address] [place] [address] Yecenia Frias FNP [address] [place] [address] documented as of this encounter Visit Diagnoses Diagnosis Mixed anxiety and depressive disorder Dysthymic disorder documented in this encounter Additional Health Concerns Assessment Noted Time PHQ-9 Depression Total Score: 13 023 3:27 PM EDT documented as of this encounter Care Teams Basin Finish Operator Tig Welder Relationship Specialty Start Date End Date Marc Nicolas AGNP PCP - General Family Medicine 10/22/22 04/20/23 [place] [address] PCP - General Family Medicine 04/21/23 04/25/24 [place] [address] PCP - General Family Medicine 04/26/24 Colby Hirsch FNP [address] [place] [address] Nurse Practitioner Family Medicine 07/13/23 Candice Ugarte Laborer Drying DepartmentBrick Tosser 12/27/23 documented as of this encounter
--- OUTSIDE RECORDS SUMMARY | 2025-01-08 12:22 | XMS_ITS | Encounter Summary ---
Author Organization [employer] Address [address] [facility] 7t [place] [address] Care Team Providers Care Store Clerk Checker Name Role Phone Marc Nicolas Primary Care Provider Unavail able Radha Shah EDGE INKER Primary Care Provider [phone] Colby Hirsch Unavailable Unavailable [facility] EDGE INKER Primary Care Provider [phone] Reason for Visit * Reason Comments Med Refill Encounter Details Date Type Department Care Team ([facility] Contact Info) Description 03/17/2023 Refill [facility] [address] [place] [address] Marc Nicolas AGNP Mixed anxiety and depressive [...] Upcoming Encounters Date Type Department Care Team ([facility] Contact Info) Description 01/24/2025 2:00 PM EDT Clinical Support [facility] [address] [place] [address] Kira Bansal RN 01/24/2025 2:30 PM EDT Office Visit [facility] [address] [place] [address] Yecenia Frias FNP [address] [place] [address] documented as of this encounter Visit Diagnoses Diagnosis Mixed anxiety and depressive disorder Dysthymic disorder documented in this encounter Additional Health Concerns Assessment Noted Time PHQ-9 Depression Total Score: 13 023 3:27 PM EDT documented as of this encounter Care Teams Store Clerk Checker Relationship Specialty Start Date End Date Marc Nicolas AGNP PCP - General Family Medicine 10/22/22 04/20/23 Radha Shah FNP [address] [place] [address] PCP - General Family Medicine 04/21/23 04/25/24 Yecenia Frias FNP [address] [place] [address] PCP - General Family Medicine 04/26/24 Colby Hirsch FNP [address] [place] [address] Nurse Practitioner Family Medicine 07/13/23 Candice Ugarte Filter OperatorMarquetry Worker 12/27/23 documented as of this encounter
--- OUTSIDE RECORDS SUMMARY | 2025-01-08 12:22 | XMS_ITS | Encounter Summary ---
Author Organization [employer] Address [address] 7t [place] [address] Care Team Providers Care Director Of Professional Services Name Role Phone Radha Shah PILE DRIVER OPERATOR BARGE MOUNTED Primary Care Provider [phone] Colby Hirsch Unavailable Unavailable [facility] Primary Care Provider [phone] Reason for Visit * Reason Comments Med Refill Encounter Details Date Type Department Care Team (Late st Contact Info) Description 02/16/2024 Refill [facility] [address] [place] [address] Radha Shah FNP [address] [place] [address] Multiple joint pain Social History Tobacco Use [...] EDT Clinical Support [facility] [address] [place] [address] Kira Bansal RN 01/24/2025 2:30 PM EDT Office Visit [facility] [address] [place] [address] Tracy CityYecenia FNP [address] [place] [address] documented as of this encounter Visit Diagnoses Diagnosis Multiple joint pain Pain in joint, multiple sites documented in this encounter Additional Health Concerns Assessment Noted Time PHQ-9 Depression Total Score: 6 12/28/19 24 11:17 AM EDT documented as of this encounter Care Teams Director Of Professional Services Relationship Specialty Start Date End Date Radha Shah FNP [address] [place] [address] PCP - General Family Medicine 04/21/23 04/25/24 [place] CityYecenia whipple FNP [address] [place] [address] PCP - General Family Medicine 04/26/24 Colby Hirsch FNP [address] [place] [address] Nurse Practitioner Family Medicine 07/13/23 Candice Ugarte Air Cargo Ground Crew SupervisorOccupational Rehabilitation Aide 12/27/23 documented as of this encounter
--- OUTSIDE RECORDS SUMMARY | 2025-01-08 12:22 | XMS_ITS | Encounter Summary ---
Author Organization [employer] Address [address] 7t [place] [address] Care Team Providers Care Wheat Farmer Name Role Phone Marc Nicolas Primary Care Provider Unavail able Radha Shah PAYROLL AUDITOR Primary Care Provider [phone] Colby Hirsch Unavailable Unavailable [facility] PAYROLL AUDITOR Primary Care Provider [phone] Reason for Visit * Reason Comments Med Refill Encounter Details Date Type Department Care Team (Late st Contact Info) Description 03/10/2023 Refill [facility] [address] [place] [address] Marc Nicolas AGNP Mixed anxiety and depressive [...] Will send to PCP on 03/18/23. Has SENIOR LINUX UNIX ADMINISTRATOR scheduled 03/17/23. * Telephone Encounter - Chikadeborah Low - 03/15/2023 9:14 AM EDT Tc from patient requesting a med refill for medication tramadol [address] Nicolas documented in this encounter Plan of Treatment Upcoming Encounters Date Type Department Care Team (Late st Contact Info) Description 01/24/2025 2:00 PM EDT Clinical Support [address] [address] Kira Bansal RN 01/24/2025 2:30 PM EDT Office Visit [address] [address] Yecenia Frias FNP [address] [place] [address] documented as of this encounter Visit Diagnoses Diagnosis Mixed anxiety and depressive disorder Dysthymic disorder Multiple joint pain Pain in joint, multiple sites documented in this encounter Additional Health Concerns Assessment Noted Time PHQ-9 Depression Total Score: 13 023 3:27 PM EDT documented as of this encounter Care Teams Wheat Farmer Relationship Specialty Start Date End Date Marc Nicolas AGNP PCP - General Family Medicine 10/22/22 04/20/23 Radha Shah FNP [address] [place] [address] PCP - General Family Medicine 04/21/23 04/25/24 Yecenia Frias FNP [address] [place] [address] PCP - General Family Medicine 04/26/24 Colby Hirsch FNP [address] [place] [address] Nurse Practitioner Family Medicine 07/13/23 Candice Ugarte Edger TechnicianVegetable Trimmer 12/27/23 documented as of this encounter
--- OUTSIDE RECORDS SUMMARY | 2025-01-08 12:22 | XMS_ITS | Encounter Summary ---
Author Organization [employer] Address [address] [facility] 7t [place] [address] Care Team Providers Care Health Program Director Name Role Phone Radha Shah [facility] Primary Care Provider [phone] Colby Hirsch CLINICAL CASE MANAGER Unavailable Unavailable [facility] Primary Care Provider [phone] Reason for Visit * Reason Onset Date Comments Results 02/16/2024 Care Coordination 02/16/[address] Kelly joshua telephone call outreached Encounter Details Date Type Department Care Team (Late st Contact Info) Description 02/16/2024 Telephone [facility] MEDICINE [address] [place] [address] Radha Shah FNP [address] [place] [address] Results; Care Coordination ([id number] Obrien telephone call outreached) Social History Tobacco [...] results: labs Date when done: 02/06 Facility: [facility] Please contact pt at [phone] documented in this encounter Plan of Treatment Upcoming Encounters Date Type Department Care Team (Late st Contact Info) Description 01/24/2025 2:00 PM EDT Clinical Support [facility] [place] [place] [address] Kira Bansal RN 01/24/2025 2:30 PM EDT Office Visit [facility] [address] [place] [address] Yecenia Frias FNP [address] [place] [address] documented as of this encounter Visit Diagnoses Not on filedocumented in this encounter Additional Health Concerns Assessment Noted Time PHQ-9 Depression Total Score: 6 12/28/19 24 11:17 AM EDT documented as of this encounter Care Teams Health Program Director Relationship Specialty Start Date End Date [place] [address] PCP - General Family Medicine 04/21/23 04/25/24 Yecenia Frias FNP [address] [place] [address] PCP - General Family Medicine 04/26/24 Colby Hirsch FNP [address] [place] [address] Nurse Practitioner Family Medicine 07/13/23 Candice Ugarte Entry Level Sales ConsultantMachine Rope Maker 12/27/23 documented as of this encounter
--- OUTSIDE RECORDS SUMMARY | 2025-01-08 12:22 | XMS_ITS | Encounter Summary ---
Author Organization [employer] Address [address] 7t [place] [address] Care Team Providers Care Manager Aviation Name Role Phone Marc Nicoals Primary Care Provider Unavail able Radha Shah BORING MACHINE OPERATOR Primary Care Provider [phone] Colby Hirsch Unavailable Unavailable [facility] BORING MACHINE OPERATOR Primary Care Provider [phone] Reason for Visit * Reason Comments Med Refill Encounter Details Date Type Department Care Team ([facility] Contact Info) Description 04/07/2023 Refill [facility] & PEDS [address] [place], [place] [phone] Marc Nicolas AGNP Multiple joint pain Social [...] Upcoming Encounters Date Type Department Care Team ([facility] Contact Info) Description 01/24/2025 2:00 PM EDT Clinical Support [address] [phone] Kira Bansal RN 01/24/2025 2:30 PM EDT Office Visit [facility] MEDICINE [address] [place] [address] AuroraYecenia FNP [address] [place] [address] documented as of this encounter Visit Diagnoses Diagnosis Multiple joint pain Pain in joint, multiple sites documented in this encounter Additional Health Concerns Assessment Noted Time PHQ-9 Depression Total Score: 0 04/02/20 2:10 PM EDT documented as of this encounter Care Teams Manager Aviation Relationship Specialty Start Date End Date Marc Nicolas AGNP PCP - General Family Medicine 10/22/22 04/20/23 Radha Shah FNP [address] [place] [address] PCP - General Family Medicine 04/21/23 04/25/24 AuroraYecenia FNP [address] [place] [address] PCP - General Family Medicine 04/26/24 Colby Hirsch FNP [address] [place] [address] Nurse Practitioner Family Medicine 07/13/23 Candice Ugarte Compliance ParalegalPurchase Order Checker 12/27/23 documented as of this encounter
--- OUTSIDE RECORDS SUMMARY | 2025-01-08 12:22 | XMS_ITS | Encounter Summary ---
Author Organization [employer] Address [address] 7t [place] [address] Care Team Providers Care Surgical Oncologist Name Role Phone Marc Nicolas Primary Care Provider Unavail able Radha Shah MFT Primary Care Provider [phone] Cloby HirschP Unavailable Unavailable [facility] MFT Primary Care Provider [phone] Reason for Visit * Reason Onset Date Comments Med Refill 03/10/2023 Encounter Details Date Type Department Care Team ([facility] Contact Info) Description 03/10/[address] [phone] Marc Nicolas AGNP Med Refill Social History [...] Upcoming Encounters Date Type Department Care Team ([facility] Contact Info) Description 01/24/2025 2:00 PM EDT Clinical Support [address] [address] Kira Bansal RN 01/24/2025 2:30 PM EDT Office Visit [facility] MEDICINE [address] [place] [address] Yecenia Frias FNP [address] [place] [address] documented as of this encounter Visit Diagnoses Not on filedocumented in this encounter Additional Health Concerns Assessment Noted Time PHQ-9 Depression Total Score: 13 023 3:27 PM EDT documented as of this encounter Care Teams Surgical Oncologist Relationship Specialty Start Date End Date Marc Nicolas AGNP PCP - General Family Medicine 10/22/22 04/20/23 [place] [address] PCP - General Family Medicine 04/21/23 04/25/24 Yecenia Frias FNP [address] [place] [address] PCP - General Family Medicine 04/26/24 Colby Hirsch FNP [address] [place] [address] Nurse Practitioner Family Medicine 07/13/23 Candice Ugarte Bowling Ball AssemblerHeating And Ventilating Drafter 12/27/23 documented as of this encounter
--- OUTSIDE RECORDS SUMMARY | 2025-01-08 12:22 | XMS_ITS | Encounter Summary ---
Author Organization [employer] Address [address] [place] [address] Care Team Providers Care Escapement Maker Name Role Phone Marc Nicolas Primary Care Provider Unavail able Radha Shah Primary Care Provider [phone] Colby Hirsch Unavailable Unavailable [facility] CARTON MAKING MACHINE OPERATOR Primary Care Provider [phone] Reason for Visit * Reason Onset Date Comments Med Refill 03/16/2023 Encounter Details Date Type Department Care Team (Late st Contact Info) Description 03/16/2023 Telephone [facility] [address] [place] [address] Marc Nicolas AGNP Med Refill Social History [...] 03/16/2023 3:56 PM EDT Pt scheduled for WRECKER DRIVER RV 03/17/23 @ 10am. Tramadol refill due 03/19/23, Clonazepam refill due 03/18/23.Will forward request to PCP after WRECKER DRIVER appt 03/17/23. * Telephone Encounter - Natividad Rio - 03/16/2023 3:36 PM EDT Tc from pt requesting medication refill on traMADol (Ultram) 50 MG tablet and clonazePAM (KlonoPIN)0.5 MG tablet documented in this encounter Plan of Treatment Upcoming Encounters Date Type Department Care Team (Late st Contact Info) Description 01/24/2025 2:00 PM EDT Clinical Support [address] [address] Kira Bansal RN 01/24/2025 2:30 PM EDT Office Visit [address] [address] [place] [address] [address] documented as of this encounter Visit Diagnoses Not on filedocumented in this encounter Additional Health Concerns Assessment Noted Time PHQ-9 Depression Total Score: 13 023 3:27 PM EDT documented as of this encounter Care Teams Escapement Maker Relationship Specialty Start Date End Date Marc Nicolas AGNP PCP - General Family Medicine 10/22/22 04/20/23 Radha Shah FNP [address] [place] [id number] PCP - General Family Medicine 04/21/23 04/25/24 AltagraciaYecenia whipple FNP [address] [place] [address] PCP - General Family Medicine 04/26/24 Colby Hirsch FNP [address] [place] [address] Nurse Practitioner Family Medicine 07/13/23 Candice Ugarte Air Conditioning Service TechnicianDirector Of Rooms 12/27/23 documented as of this encounter
--- OUTSIDE RECORDS SUMMARY | 2025-01-08 12:22 | XMS_ITS | Encounter Summary ---
Author Organization [employer] Address [address] [place] [address] Care Team Providers Care Hospital Account Manager Name Role Phone Radha Shah INHALATION THERAPIST Primary Care Provider [phone] Colby Hirsch Unavailable Unavailable [facility] Primary Care Provider [phone] Encounter Details Date Type Department Care Team (Late st Contact Info) Description 03/08/2024 Orders Only [facility] [address] [place] [address] Radha Shah FNP [address] [place] [address] Social History Tobacco Use Types Packs/Day Years [...] 01/24/2025 2:00 PM EDT Clinical Support [address] [address] Kira Bansal RN 01/24/2025 2:30 PM EDT Office Visit [facility] [address] [place] [address] AltagraciaYecenia whipple FNP [address] [place] [address] documented as of this encounter Visit Diagnoses Not on filedocumented in this encounter Additional Health Concerns Assessment Noted Time PHQ-9 Depression Total Score: 7 03/07/20 24 10:13 AM EDT documented as of this encounter Care Teams Hospital Account Manager Relationship Specialty Start Date End Date Radha Shah FNP [address] [place] [id number] PCP - General Family Medicine 04/21/23 04/25/24 Yecenia Frias FNP [address] [place] [id number] PCP - General Family Medicine 04/26/24 Colby Hirsch FNP [address] [place] [address] Nurse Practitioner Family Medicine 07/13/23 Candice Ugarte Digester OperatorTeacher Selection Specialist 12/27/23 documented as of this encounter
--- NOTE | 2025-01-08 16:44 | ED_ITS ---
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 Patient states that starting yesterday she noticed a left arm pit lump. Patient denies any dizziness, lightheadedness, abdominal pain, nausea, vomiting, fever, chills, blurry vision, double vision, loss of vision, chest pain, difficulty breathing, shortness of breath, back pain, night sweats, pain with urination, increased urinary frequency, increased urinary urgency, blood in her urine or stool, syncope or a near syncopal episode, recent trauma or falls, bowel incontinence, bladder incontinence, or any other complaints at this time. Onset (ago): day(s) (1) Location: left (axilla) Relieving factors: none Exacerbating factors: none Associated symptoms: denies other symptoms Treatments prior to arrival: none Related Data Home Medications ?Medication ?Instructions ?Recorded ?Confirmed albuterol sulfate 90 mcg/actuation 2 puff inhalation Q4-6H PRN 10/01/20 12/05/24 aerosol inhaler Shortness Of Breath albuterol sulfate 2.5 mg/3 mL 2.5 mg inhalation TID PRN wheezing 04/15/21 12/05/24 (0.083 %) solution for nebulization buspirone 10 mg tablet 10 mg PO TID 04/15/21 12/05/24 docusate sodium 100 mg capsule 100 mg PO BID PRN Constipation 04/15/21 12/05/24 magnesium oxide 400 mg (241.3 mg 200 mg PO DAILY 04/15/21 12/05/24 magnesium) tablet pantoprazole 40 mg tablet,delayed 40 mg PO DAILY 04/15/21 12/05/24 release sennosides 8.6 mg tablet (Senna 17.2 mg PO DAILY PRN constipation 04/15/21 12/05/24 Laxative) terconazole 0.4 % vaginal cream 1 appful vaginal BEDTIME 04/15/21 12/05/24 vitamin A 3,000 mcg (10,000 unit) 1 cap PO DAILY 04/15/21 12/05/24 capsule escitalopram oxalate 20 mg tablet 20 mg PO DAILY 12/16/21 12/05/24 sumatriptan succinate 50 mg tablet 50 mg PO ONCE migraine 01/07/22 12/05/24 clonazepam 0.5 mg tablet 0.5 mg PO DAILY PRN anxiety 02/03/22 12/05/24 naproxen 500 mg tablet 375 mg PO BID PRN pain 03/14/24 12/05/24 Previous Rx's ?Medication ?Instructions ?Recorded ketorolac 10 mg tablet 10 mg PO Q8H PRN pain #10 tabs 02/23/21 tramadol 50 mg tablet 50 mg PO Q8H PRN pain (scale score 04/15/21 1-3) #14 tabs lisinopril 5 mg tablet 5 mg PO DAILY #30 tabs 02/18/22 cholecalciferol (vitamin D3) 50 50 mcg PO DAILY 30 days #30 caps 03/10/22 mcg (2,000 unit) capsule ibuprofen 600 mg tablet 600 mg PO Q6H PRN pain #30 tabs 07/13/22 metoprolol tartrate 25 mg tablet 12.5 mg (1/2 x 25 mg) PO BID #30 06/25/23 tabs acetaminophen 325 mg capsule 650 mg (2 x 325 mg) PO Q6H PRN 07/20/23 (Tylenol) pain #30 caps tamsulosin 0.4 mg capsule (Flomax) 0.4 mg PO BEDTIME #14 caps 11/22/23 pen needle, diabetic 32 gauge x #100 ea 11/23/2308/26 (Novofine 32) tamsulosin 0.4 mg capsule 0.4 mg PO BEDTIME 14 days #14 caps 03/08/24 pyridoxine (vitamin B6) 100 mg 100 mg PO DAILY 90 days #90 tabs 03/12/24 tablet atorvastatin 40 mg tablet 40 mg PO DAILY #90 tabs 07/31/24 blood sugar diagnostic (FreeStyle #100 ea 08/09/24 Lite Strips) blood-glucose meter (FreeStyle #1 ea 08/09/24 Lite Meter kit) lancets 28 gauge (FreeStyle #100 ea 08/09/24 Lancets) lancets 33 gauge (TRUEplus Lancets) 1 gauge miscellaneous QID for 01/01/25 diabetes mellitus 30 days #100 ea metformin 500 mg tablet,extended 500 mg PO QPM #90 tabs 01/01/25 release 24 hr tirzepatide 2.5 mg/0.5 mL 2.5 mg (0.5 mL) subcut QWEEK #2 mL 01/01/25 subcutaneous pen injector (Mounjaro) cephalexin 500 mg capsule 500 mg PO Q6H 7 days #28 caps 01/08/25 doxycycline hyclate 100 mg tablet 100 mg PO BID 7 days #14 tabs 01/08/25 Allergies Allergy/AdvReac Type Severity Reaction Status Date / Time pineapple Allergy Severe tongue Verified 01/08/25 11:25 swelling diphenhydramine Allergy Intermediate HALLUCINATI Verified 01/08/25 11:25 [From BENADRYL] ONS morphine [MORPHINE] Allergy Intermediate DIAPHORESIS; Verified 01/08/25 11:25 TACHYCARDIA, palpitations, sweating, tingling of hands and face quetiapine [From SEROQUEL] Allergy Intermediate PALPITATION Verified 01/08/25 11:25 S seafood Allergy Intermediate redness/itc Verified 01/08/25 11:25 akhil tomato Allergy Intermediate Blister Verified 01/08/25 11:25 trazodone [TRAZODONE] Allergy Intermediate GI Upset, Verified 01/08/25 11:25 HEART RACING, palpitations prednisone [PREDNISONE] AdvReac Intermediate HEART RACES Verified 01/08/25 11:25 Review of Systems 2 Constitutional: Constitutional: Reports no additional constitutional complaints, Denies chills, Denies fever(s) and Denies night sweats Eyes: Eyes: Reports no additional eye complaints, Denies blurry vision, Denies change in vision, Denies diplopia, Denies eye discharge, Denies loss of vision and Denies eye pain ENT: Denies dizziness Cardiovascular: Cardiovascular: Reports no additional cardiovascular complaints, Denies chest pain, Denies lightheadedness, Denies Loss of Consciousness and Denies dyspnea Respiratory: Respiratory: Reports no additional respiratory complaints and Denies dyspnea Gastrointestinal: Gastrointestinal: Reports no additional gastrointestinal complaints, Denies abdominal pain, Denies melena, Denies hematochezia, Denies change in bowel habits and Denies change in stool character Genitourinary: Genitourinary: Denies hematuria, Denies urinary frequency, Denies dysuria, Denies urinary incontinence, Denies urinary hesitancy and Denies urinary urgency Musculoskeletal: Musculoskeletal: Reports no additional musculoskeletal complaints, Denies numbness and Denies tingling Comments: left armpit lump Neurologic: Denies dizziness, Denies loss of vision, Denies numbness and Denies tingling Psychiatric: Psychiatric: Reports no additional psychiatric complaints Endocrine: Endocrine: Reports no additional endocrine complaints Hematologic/Lymphatic: Hematologic/Lymphatic: Reports no additional hematologic/lymphatic complaints Allergic/Immunologic: Allergic/Immunologic: Reports no additional allergic/immunologic complaints PMF Past Medical History Attestation statement: The following information was validated with the patient. Source: old records reviewed and nursing notes reviewed Medical History Bilateral kidney stones T2DM (type 2 diabetes mellitus) Pain of left middle finger Left hand pain Left wrist pain Numbness and tingling in left hand De Quervain's tenosynovitis, left Skin lesion of breast Rotator cuff strain Right flank pain Abnormal stress ECG with treadmill Chest discomfort Hypertrophic scar of upper arm Shoulder pain Epidermal inclusion cyst Right kidney stone Nephrolithiasis Right shoulder strain Transaminitis GERD (gastroesophageal reflux disease) Anxiety Migraines Fatty liver Elevated cholesterol Asthma Vitamin D deficiency HLD (hyperlipidemia) HTN (hypertension) Diabetes mellitus Surgical History Skin lesion Sebaceous cyst of breast Flank pain Scar contracture History of surgical removal of skin lesion (08/27/22) H/O lithotripsy History of local excision of skin lesion History of hysterectomy (~2011) Family History Family History Father Heart disease Mother No problems noted. Social History Social History Are you a primary career and guidance counselor to a significant other at home: No Do you presently have visiting nurse or other home services: No Alcohol intake: never Patient Tobacco Use Status: Never used Tobacco Second Hand Smoke Exposure: No Advance Directives: No Advance Directives Information Provided: Yes Physical Exam ED Vital Signs: Vital Signs - 24 hr 01/08/25 11:25 01/08/25 16:53 Temperature 98.6 F 98.6 F Pulse Rate 80 80 Respiratory Rate 16 16 Blood Pressure 132/82 132/82 Pulse Oximetry 99 99 Oxygen Delivery Method Room Air Room Air BMI result Body Mass Index 35.9 Const General: cooperative, no acute distress, alert and awake Nutritional Appearance: well nourished Orientation/consciousness: patient oriented x3 HENMT Head: Yes normal to inspection and Yes atraumatic Ears: hearing grossly normal bilaterally and external ears normal General nose exam: Normal external nose present, no nasal discharge noted and no epistaxis Face and sinus: Yes normal facial exam, No abrasion and No laceration Mouth: Normal oral and palatal mucosa present, no drooling and no muffled voice Eyes General: appearance normal, both eyes and all related structures Periorbital: periorbital findings normal Eyelids: Yes eyelids normal Conjunctivae: conjunctivae normal Pupils: Equal, round and reactive pupils present EOM: EOMs intact bilaterally Neck Neck: Yes normal visual inspection, Yes full ROM and Yes no lymphadenopathy Chest Chest/axillae images: 2 1. small area of erythema and fluctuance - consistent with an abscess Resp Effort & Inspection: normal respiratory effort and able to speak in complete sentences Neuro General: patient oriented x3, moves all extremities and CN's II-XI intact bilaterally Cranial nerves: Yes Equal, round and reactive pupils present Cognition (Neuro): normal cognition Extrem General: Yes normal to inspection, Yes full ROM and Yes capillary refill normal Psych Appearance: grossly normal Mental Status: mental status grossly normal Affect: normal affect Attitude: cooperative Thought process: Normal thought process present Thought content: Normal thought content present Insight: Good insight present (Psych) Procedures Abscess I/D Site: other (axilla) Side (if applicable): left Technique: needle aspiration Amount of fluid expressed (mL): 0.75 Sent for culture/gram staining?: No Irrigation: No Packing used?: none Medical Decision Making Medical Decision Making MDM Narrative: Patient is a 44 year old assigned female at with a history of GERD, asthma, DM, HLD, and HTN presenting to the emergency department today with a left armpit abscess. Patient's physical exam was as noted in the physical exam portion of this note and consistent with a small left axillary abscess. I explained my physical exam findings to the patient. I answered all questions asked by the patient. Patient's abscess was drained via needle aspiration with an 18g needle without incident. Approximately 0.25 ml of pus was removed and an additional 0.5 ml of blood. I stressed the importance of the patient taking her medication as directed (either prescribed or as the over the counter packaging recommends). I stressed the importance of the patient following up with her primary care provider and a general surgeon. I stressed the importance of the patient returning to the emergency department immediately if her symptoms were to worsen or if she were to develop any dizziness, shortness of breath, difficulty breathing, chest pain, blurry vision, loss of vision, nausea, vomiting, abdominal pain, fever, chills, back pain, or any other complaints. Patient verbalized agreement and understanding with this treatment plan and discharge. Differential Diagnosis Differential Diagnoses: The differential diagnosis associated with the presentation includes Left axillary abscess Ingrown left axillary hair Admission/Observation Consideration of admission/observation: Escalation of care including admission/observation considered Patient would have been admitted to the hospital had her clinical presentation warranted hospital admission. Prescription Management I considered prescription management with: Antibiotic (Given patient's history of DM and clinical presentation - antibiotics prescribed.) Chronic Conditions Patient?s care impacted by: Diabetes Discharge Plan Discharge Clinical Impression: Abscess Patient Disposition: Home, Self-Care Instructions: Abscess (ED), Abscess Incision and Drainage (DC) Additional Instructions: Take your antibiotic as prescribed. Follow up with a general surgeon. Follow up with your primary care provider. Return to the emergency department immediately if your symptoms worsen or if you develop any dizziness, shortness of breath, difficulty breathing, chest pain, blurry vision, loss of vision, nausea, vomiting, abdominal pain, fever, chills, back pain, or any other complaints. [place] el antibi?kartik johnson montrell se le rogers recetado. Celia un seguimiento con un cirujano general. Celia?seguimiento?con smith m?dico de atenci?n primaria. Acuda inmediatamente al servicio de urgencias si charles s?ntomas empeoran o si presenta falta de aliento, dificultad para respirar, dolor tor?cico, mareos, aturdimiento, dolor de espalda, dolor abdominal, fiebre, escalofr?os o cualquier otro s?ntoma. Please see the information below about our Patient Portal. If you are not yet enrolled in the [facility] Patient Portal, you will receive an enrollment email invitation following your visit to any [facility] care setting. You may also self-enroll in the Patient Portal by visiting our website: [email or web address] The following information is required to access the Patient Portal: - Your [facility] Medical Record Number - Your personal home email address (must match what is in your electronic medical record, Registration staff can assist with this) - Name - Date of Capabilities of the Patient Portal: - Message some providers - View upcoming appointments - Access your health summary, medical history, and visit history - View current conditions and allergies - View procedure and lab results - View your medications, including guidelines, side effects, and precautions - Complete pre-appointment questionnaires requested by your provider - Ready summary reports of your office visits and procedures To access the Patient Portal Mobile Isabel, follow these directions: - Search Exeros in the Isabel Store or Prodigy Game Store - Download the Isabel - Search for [facility] - Enter your login/password Portal del paciente Si usted no esta inscrito en el portal de pacientes de [facility], recibira noa invitacion de inscripcion despues de smith visita al [facility] o al [facility] via correo electronico. Tambien puede inscribirse voluntariamente en el portal de pacientes visitando nuestra pagina web: [email or web address] La siguiente informacion sera requerida para acceder al portal: - Smith usama de historia medica de [facility] - Smith direccion de correo electronico personal - Nombre - Fecha de nacimiento Capacidades: Las siguientes capacidades estan disponibles en el portal de pacientes: - Enviar mensajes a algunos doctores - Verificar proximas citas - Acceso a smith historial de perez, registro medico e historial de visitas - [place] las condiciones actuales y alergias clifton procedimientos y resultados del laboratorio - [place] charles medicamentos, incluyendo las pautas - Efectos secundarios y precauciones - Completar o llenar formularios / cuestionarios de - Citas solicitadas por smith doctor - Leer los resumenes de reportes medicos de charles visitas y procedimientos Montrell acceder a la aplicacion movil: - Danielito Clowdyealth en la Isabel Store o Google RipCode Store - Descargue la aplicacion - [facility] - Ingrese smith nombre de usuario / Contrasena Prescriptions: New cephalexin 500 mg capsule 500 mg PO Q6H 7 Days Qty: 28 0RF doxycycline hyclate 100 mg tablet 100 mg PO BID 7 Days Qty: 14 0RF No Action cholecalciferol (vitamin D3) 50 mcg (2,000 unit) capsule 50 mcg PO DAILY 30 Days Qty: 30 11RF (DME) pen needle, diabetic [Novofine 32] 32 gauge x 1/4 needle See Rx Instructions .ROUTE .COMPLEX Qty: 100 5RF Dose Instruction: USE ONCE DAILY DIRECTED Rx Instructions: USE ONCE DAILY DIRECTED pyridoxine (vitamin B6) 100 mg tablet 100 mg PO DAILY 90 Days Qty: 90 3RF atorvastatin 40 mg tablet 40 mg PO DAILY Qty: 90 1RF (DME) blood-glucose meter [FreeStyle Lite Meter] Kit See Rx Instructions .ROUTE .MEDSUPPLY Qty: 1 0RF Rx Instructions: As directed (DME) FreeStyle Lite Strips Strip See Rx Instructions .ROUTE .MEDSUPPLY Qty: 100 11RF Rx Instructions: As directed Test blood glucose 3x daily. (DME) lancets [FreeStyle Lancets] 28 gauge misc See Rx Instructions .ROUTE .MEDSUPPLY Qty: 100 3RF Rx Instructions: use daily as directed to check blood glucose lancets [TRUEplus Lancets] 33 gauge misc 1 gauge miscellaneous QID 30 Days Qty: 100 3RF albuterol sulfate 90 mcg/actuation Hfa Aerosol Inhaler 2 puff INHALATION Q4-6H PRN (Reason: Shortness Of Breath) ketorolac 10 mg tablet 10 mg PO Q8H PRN (Reason: pain) Qty: 10 0RF ibuprofen 600 mg tablet 600 mg PO Q6H PRN (Reason: pain) Qty: 30 0RF metoprolol tartrate 25 mg tablet 12.5 mg PO BID Qty: 30 0RF tamsulosin 0.4 mg capsule 0.4 mg PO BEDTIME 14 Days Qty: 14 0RF acetaminophen [Tylenol] 325 mg capsule 650 mg PO Q6H PRN (Reason: pain) Qty: 30 0RF terconazole 0.4 % cream 1 appful vaginal BEDTIME pantoprazole 40 mg tablet,delayed release (DR/EC) 40 mg PO DAILY albuterol sulfate 2.5 mg /3 mL (0.083 %) solution for nebulization 2.5 mg inhalation TID PRN (Reason: wheezing) sennosides [Senna Laxative] 8.6 mg tablet 17.2 mg PO DAILY PRN (Reason: constipation) docusate sodium 100 mg capsule 100 mg PO BID PRN (Reason: Constipation) buspirone 10 mg tablet 10 mg PO TID vitamin A 10,000 unit capsule 1 cap PO DAILY magnesium oxide 400 mg (241.3 mg magnesium) tablet 200 mg PO DAILY tramadol 50 mg tablet 50 mg PO Q8H PRN (Reason: pain (scale score 1-3)) Qty: 14 0RF lisinopril 5 mg tablet 5 mg PO DAILY Qty: 30 5RF escitalopram oxalate 20 mg tablet 20 mg PO DAILY sumatriptan succinate 50 mg tablet 50 mg PO ONCE clonazepam 0.5 mg tablet 0.5 mg PO DAILY PRN (Reason: anxiety) naproxen 500 mg tablet 375 mg PO BID PRN (Reason: pain) Mounjaro 2.5 mg/0.5 mL pen injector 2.5 mg subcut QWEEK Qty: 2 3RF Rx Instructions: for 4 weeks metformin 500 mg tablet extended release 24 hr 500 mg PO QPM Qty: 90 3RF tamsulosin [Flomax] 0.4 mg capsule 0.4 mg PO BEDTIME Qty: 14 0RF Referrals: [facility] General Surgeons [Provider Group] (Call to establish and follow up with a general surgeon for your left axillary abscess. Llame para establecer y seguir con un cirujano general para smith absceso axilar gloria.) Yecenia Frais, PEARL RESTORER [Primary Care Provider] - Interventions: ED Discharge Assessment Last Done: 01/08/25 16:53 Discharge Date/Time: 01/08/25 16:54 Print Language: Hungarian
[2025-01-08 16:53] VITALS: BP 132/82; PULSE 80; RESP 16; TEMP 37; O2SAT 99
== END 2025-01-08 16:54 | disposition home or self-care (01) ==
PROVIDERS: Emergency Provider Emergency Medicine; PCP Registered Nurse
DX: L02.412 Cutaneous abscess of left axilla (principal); E11.9 Type 2 diabetes mellitus without complications
CPT/HCPCS: 10160; 99282; 99283; 99284

== ENCOUNTER 2025-01-30 12:24 | Outpatient (AMB) | payer MEDICAID, SELFPAY ==
--- NOTE | 2025-01-30 12:38 | A.OFFVIS_ITS ---
Vital Signs 3 01/30/25 12:50 Height 5 ft Weight 184 lb BMI 35.9 BP 137/90 H Blood Pressure Location Lt brachial Position Sitting Pulse 111 H Intake Visit Reasons: discuss exc mass on arm~ Dr. Campos patient Intake Note: Patient is seen office to discuss surgical removal of a mass on the left arm. Pt c/o: per pt lump is very painful, when picking up grocery bags sometimes feels numb, would like to have the lump removed Computer Clerk Required: Yes Computer Clerk Language: Sawmill Supervisor Services: Computer Clerk Present Computer Clerk Name: Ronda MENG Information Interpreted: non-clinical & clinical Watch And Clock Maker And Repairer: Watch And Clock Maker And Repairer Present Accompanied by: Self / Same As Patient Allergies pineapple Allergy (Severe, Verified 01/30/25 12:39) tongue swelling diphenhydramine [From BENADRYL] Allergy (Intermediate, Verified 01/30/25 12:39) HALLUCINATIONS morphine [MORPHINE] Allergy (Intermediate, Verified 01/30/25 12:39) DIAPHORESIS; TACHYCARDIA, palpitations, sweating, tingling of hands and face quetiapine [From SEROQUEL] Allergy (Intermediate, Verified 01/30/25 12:39) PALPITATIONS seafood Allergy (Intermediate, Verified 01/30/25 12:39) redness/itching tomato Allergy (Intermediate, Verified 01/30/25 12:39) Blister trazodone [TRAZODONE] Allergy (Intermediate, Verified 01/30/25 12:39) GI Upset, HEART RACING, palpitations prednisone [PREDNISONE] Adverse Reaction (Intermediate, Verified 01/30/25 12:39) HEART RACES Medication List - Last Reconciled 01/30/25 by Lionel Cintron MD acetaminophen (Tylenol) 650 mg (2 x 325 mg) PO Q6H PRN albuterol sulfate 90 mcg/actuation 2 puffs inhalation Q4-6H PRN albuterol sulfate 2.5 mg inhalation TID PRN atorvastatin 40 mg PO DAILY blood sugar diagnostic (FreeStyle Lite Strips) As directed Test blood glucose 3x daily. blood-glucose meter (FreeStyle Lite Meter kit) As directed buspirone 10 mg PO TID cephalexin 500 mg PO Q6H 7 days cholecalciferol (vitamin D3) 50 mcg PO DAILY 30 days clonazepam 0.5 mg PO DAILY PRN docusate sodium 100 mg PO BID PRN doxycycline hyclate 100 mg PO BID 7 days escitalopram oxalate 20 mg PO DAILY ibuprofen 600 mg PO Q6H PRN ketorolac 10 mg PO Q8H PRN lancets (FreeStyle Lancets) use daily as directed to check blood glucose lancets (TRUEplus Lancets) 1 gauge miscellaneous QID 30 days lisinopril 5 mg PO DAILY magnesium oxide 200 mg PO DAILY metformin ER 500 mg PO QPM metoprolol tartrate 12.5 mg (1/2 x 25 mg) PO BID naproxen 375 mg PO BID PRN pantoprazole 40 mg PO DAILY pen needle, diabetic (Novofine 32) USE ONCE DAILY DIRECTED pyridoxine (vitamin B6) 100 mg PO DAILY 90 days sennosides (Senna Laxative) 17.2 mg PO DAILY PRN sumatriptan succinate 50 mg PO ONCE tamsulosin 0.4 mg PO BEDTIME 14 days tamsulosin (Flomax) 0.4 mg PO BEDTIME terconazole 0.4% 1 appful vaginal BEDTIME tirzepatide (Mounjaro) 2.5 mg (0.5 mL) subcut QWEEK tramadol 50 mg PO Q8H PRN vitamin A 1 cap PO DAILY HPI Comments Details: 44-year-old female patient well known to the service after undergoing multiple skin excision procedures throughout the years. She presents for re-evaluation of a left upper arm scar which is causing continued pain and apparently resulting in weakness in the left arm. She reports a tender lump associated with the scar below the skin is requesting removal of this lesion. Previous excisions revealed benign tissue. She denies any fever or chills. There has been no redness or discharge from the site. [facility] Medical History Bilateral kidney stones T2DM (type 2 diabetes mellitus) Pain of left middle finger Left hand pain Left wrist pain Numbness and tingling in left hand De Quervain's tenosynovitis, left Skin lesion of breast Rotator cuff strain Right flank pain Abnormal stress ECG with treadmill Chest discomfort Hypertrophic scar of upper arm Shoulder pain Epidermal inclusion cyst Right kidney stone Nephrolithiasis Right shoulder strain Transaminitis GERD (gastroesophageal reflux disease) Anxiety Migraines Fatty liver Elevated cholesterol Asthma Vitamin D deficiency HLD (hyperlipidemia) HTN (hypertension) Diabetes mellitus Surgical History Skin lesion Sebaceous cyst of breast Flank pain Scar contracture History of surgical removal of skin lesion (08/27/22) H/O lithotripsy History of local excision of skin lesion History of hysterectomy (~2011) Family History Father Heart disease Mother No problems noted. Social History Are you a primary in home caregiver to a significant other at home: No Do you presently have visiting nurse or other home services: No Alcohol intake: never Patient Tobacco Use Status: Never used Tobacco Second Hand Smoke Exposure: No Review of Systems Const All systems reviewed & are unremarkable except as noted in HPI and below Physical Exam Const General: no acute distress Nutritional Appearance: well nourished Orientation/consciousness: patient oriented x3 Limitations: no limitations Resp Effort & Inspection: normal respiratory effort, no audible wheezes, no cough and no respiratory distress GI Inspection: Yes normal to inspection Skin General skin exam: no rashes or lesions noted Neuro General: patient oriented x3 Extrem Other: Left upper arm, inner surface with a well-healed transverse incision without keloid or hypertrophy. Palpation does reveal a small nodule measuring approximately 1 cm in diameter which is tender to palpation. No fluctuance or erythema is appreciated. Shoulder/upper arm images: 2 1. Site of incision in upper inner left arm Assessment & Plan Assessment & Plan (1) Mass of soft tissue of upper arm: Code(s): M79.89 - Other specified soft tissue disorders Category: Surgical Plan 44-year-old female patient returning for re-evaluation of a left upper arm incision which is tender to palpation reveals a small subcutaneous nodule. Patient has requested excision of this lesion. After discussion of the procedure, risks (including continued pain, infection, bleeding, numbness) and alternatives, she consents to an excision of the left upper arm mass. Coding Level of Care Code Est Pt Level 4 (54047) Diagnoses Mass of soft tissue of upper arm M79.89
[2025-01-30 12:50] VITALS: BP 137/90; PULSE 111; BMI 35.9
--- OUTSIDE RECORDS SUMMARY | 2025-01-30 14:37 | XMS_ITS | Encounter Summary ---
Author Organization [employer] Address [address] [place] [address] Care Team Providers Care Plaster Foreman Name Role Phone Colby Hirsch AIRCRAFT DETAIL DRAFTSPERSON Unavailable Unavailable [facility] Primary Care Provider [phone] Reason for Visit * Reason Comments Med Refill Encounter Details Date Type Department Care Team ([facility] st Contact Info) Description 01/02/2025 Refill [facility] MED[facility]INE [address] [place], [place] [phone] [facility] [address] [place] [address] Viral upper respiratory illness Social History Tobacco [...] Care Team (Late st Contact Info) Description 02/26/2025 10:30 AM EDT Office Visit [address] [address] Yecenia Frias FNP [address] [place] [address] 04/30/2025 1:00 PM EDT Clinical Support [address] [address] Kira Bansal RN documented as of this encounter Visit Diagnoses Diagnosis Viral upper respiratory illness documented in this encounter Additional Health Concerns Assessment Noted Time PHQ-9 Depression Total Score: 0 10/24/19 25 1:15 PM EST documented as of this encounter Care Teams Plaster Foreman Relationship Specialty Start Date End Date Yecenia Frias FNP [address] [place] [id number] PCP - General Family Medicine 04/26/24 Colby Hirsch FNP Nurse Practitioner Family Medicine 07/13/23 Candice Ugarte Lead Php DeveloperPost Closer 12/27/23 documented as of this encounter
== END 2025-01-30 12:53 | disposition home or self-care (01) ==
LOC: HO.HGS 12:25
PROVIDERS: PCP Registered Nurse; Visit Provider Surgery
DX: M79.89 Other specified soft tissue disorders (principal)
CPT/HCPCS: 99214

== ENCOUNTER → 2025-01-30 12:24 | Outpatient (BNVA) | payer MEDICAID, SELFPAY | PROVIDERS: PCP Registered Nurse; Visit Provider Surgery | DX: M79.89 Other specified soft tissue disorders (principal) | CPT/HCPCS: 99212 ==

== ENCOUNTER 2025-02-05 14:34 | Outpatient (AMB) | payer MEDICAID, SELFPAY ==
[2025-02-05 14:41] VITALS: BP 112/88; PULSE 81; O2SAT 98; BMI 35.8
--- NOTE | 2025-02-05 14:41 | MHC.OFFVIS ---
Vital Signs 02/05/25 14:41 Height 5 ft Weight 183 lb 3.266 oz BMI 35.8 BP 112/88 Blood Pressure Location Rt brachial Position Sitting Pulse 81 Pulse Source Pulse Oximeter Pulse Oximetry (%) 98 Oxygen Delivery Method Room Air Intake Visit Reasons: T2DM Intake Note: Patient present today for Type 2 Diabetes Mellitus Last Diabetic eye exam: 08/2024 Last Podiatry Visit: Doesn't have one Random Glucose: 105 mg/dl HgA1C: 5.7% 01/01/25 C Software Engineer Required: Yes C Software Engineer Language: Environmental Assistant Services: C Software Engineer Present C Software Engineer Name: Charis Information Interpreted: non-clinical & clinical Accompanied by: Self / Same As Patient Allergies pineapple Allergy (Severe, Verified 02/05/25 14:46) tongue swelling diphenhydramine [From BENADRYL] Allergy (Intermediate, Verified 02/05/25 14:46) HALLUCINATIONS morphine [MORPHINE] Allergy (Intermediate, Verified 02/05/25 14:46) DIAPHORESIS; TACHYCARDIA, palpitations, sweating, tingling of hands and face quetiapine [From SEROQUEL] Allergy (Intermediate, Verified 02/05/25 14:46) PALPITATIONS seafood Allergy (Intermediate, Verified 02/05/25 14:46) redness/itching tomato Allergy (Intermediate, Verified 02/05/25 14:46) Blister trazodone [TRAZODONE] Allergy (Intermediate, Verified 02/05/25 14:46) GI Upset, HEART RACING, palpitations prednisone [PREDNISONE] Adverse Reaction (Intermediate, Verified 02/05/25 14:46) HEART RACES Medication List - Last Reconciled 02/05/25 by Tereza Clay PA-C acetaminophen (Tylenol) 650 mg (2 x 325 mg) PO Q6H PRN albuterol sulfate 90 mcg/actuation 2 puffs inhalation Q4-6H PRN albuterol sulfate 2.5 mg inhalation TID PRN atorvastatin 40 mg PO DAILY blood sugar diagnostic (FreeStyle Lite Strips) As directed Test blood glucose 3x daily. blood-glucose meter (FreeStyle Lite Meter kit) As directed buspirone 10 mg PO TID cholecalciferol (vitamin D3) 50 mcg PO DAILY 30 days clonazepam 0.5 mg PO DAILY PRN docusate sodium 100 mg PO BID PRN escitalopram oxalate 20 mg PO DAILY ibuprofen 600 mg PO Q6H PRN ketorolac 10 mg PO Q8H PRN lancets (FreeStyle Lancets) use daily as directed to check blood glucose lancets (TRUEplus Lancets) 1 gauge miscellaneous QID 30 days magnesium oxide 200 mg PO DAILY metformin ER 500 mg PO QPM naproxen 375 mg PO BID PRN pantoprazole 40 mg PO DAILY pen needle, diabetic (Novofine 32) USE ONCE DAILY DIRECTED pyridoxine (vitamin B6) 100 mg PO DAILY 90 days semaglutide (Ozempic) 0.25 mg (0.368 mL) subcut QWEEK sennosides (Senna Laxative) 17.2 mg PO DAILY PRN sumatriptan succinate 50 mg PO ONCE tramadol 50 mg PO Q8H PRN vitamin A 1 cap PO DAILY HPI HPI T2DM: Details: Patient is a 44-year-old female with a significant past medical history of cardiomyopathy, hypertension, hyperlipidemia and type 2 diabetes presenting diabetes. Marianne is present today to help with translation. Endo: She is currently taking metformin 500 mg nightly And mounjaro 2.5 mg weekly. - Trulicity was started by PCP due to insurance issues. It is not effectively treating her blood sugars but she states that she gets a headache with it, dizziness and nausea. She feels sick with this medication. -recently started again on Mounjaro and did not tolerate this medication. States that it was causing significant GI discomfort. Stopped the medication felt better. -stopped ozempic because it did not control her blood sugars. did not contact for new dose. -Humphrey but has been unable to get this at local pharmacies. -in the past tried glipizide but did not tolerate this. -does not tolerate higher doses of metformin. She is not on an BERTHA-inhibitor. Cholesterol is managed with atorvastatin. Follows with Ophthalmology and due for eye exam. no known hx of retinopathy. Does not Follow with Podiatry. CV: Blood pressure today is 112/88. She was on lisinopril 5 mg and metoprolol but this was stopped a year ago. she is compliant with atorvastatin 40 mg nightly. Last LDL 71. PFS Medical History Bilateral kidney stones T2DM (type 2 diabetes mellitus) Pain of left middle finger Left hand pain Left wrist pain Numbness and tingling in left hand De Quervain's tenosynovitis, left Skin lesion of breast Rotator cuff strain Right flank pain Abnormal stress ECG with treadmill Chest discomfort Hypertrophic scar of upper arm Shoulder pain Epidermal inclusion cyst Right kidney stone Nephrolithiasis Right shoulder strain Transaminitis GERD (gastroesophageal reflux disease) Anxiety Migraines Fatty liver Elevated cholesterol Asthma Vitamin D deficiency HLD (hyperlipidemia) HTN (hypertension) Diabetes mellitus Surgical History Skin lesion Sebaceous cyst of breast Flank pain Scar contracture History of surgical removal of skin lesion (08/27/22) H/O lithotripsy History of local excision of skin lesion History of hysterectomy (~2011) Family History Father Heart disease Mother No problems noted. Social History Are you a primary menagerie caretaker to a significant other at home: No Do you presently have visiting nurse or other home services: No Alcohol intake: never Patient Tobacco Use Status: Never used Tobacco Second Hand Smoke Exposure: No Physical Exam Const Orientation/consciousness: patient oriented x3 Neck Neck: Yes no lymphadenopathy Thyroid: Thyroid normal Carotids: no bruits Resp Auscultation: clear to auscultation bilaterally Cardio Rate: regular rate Rhythm: regular rhythm Heart sounds: S1 normal heart sound present and S2 normal heart sound present Peripheral pulses: dorsalis pedis present Neuro General: patient oriented x3, gait normal and no focal motor deficits Extrem Other: Monofilament sensation intact bilaterally. Vibratory sensation intact bilaterally. Skin intact. General: Yes normal to inspection Results Reviewed Results Reviewed: Laboratory Tests 02/07/24 09/25/24 12/25/24 14:09 13:22 15:00 Sodium 143 Potassium 3.6 Chloride 108 Carbon Dioxide 28 Anion Gap 11 L BUN 7 L Creatinine 0.69 Estim Creat Clear Calc 97.9 Estimated GFR > 60 Estimat Average Glucose Hemoglobin A1c % AST 21 ALT 15 Triglycerides 109 Cholesterol 128 LDL Cholesterol, Calc 71 HDL Cholesterol 36 L Urine Creatinine 164.92 Urine Microalbumin 16.0 Microalb/Creat Ratio 9.7 01/01/25 14:03 Sodium Potassium Chloride Carbon Dioxide Anion Gap BUN Creatinine Estim Creat Clear Calc Estimated GFR Estimat Average Glucose 117 Hemoglobin A1c % 5.7 AST ALT Triglycerides Cholesterol LDL Cholesterol, Calc HDL Cholesterol Urine Creatinine Urine Microalbumin Microalb/Creat Ratio Assessment & Plan Assessment & Plan (1) Controlled type 2 diabetes mellitus: Code(s): E11.9 - Type 2 diabetes mellitus without complications Category: Medical Qualifiers: Diabetes mellitus complication status: without complication Diabetes mellitus oil heaterman insulin use: without residential use Qualified Code(s): E11.9 - Type 2 diabetes mellitus without complications Plan: We will switch to Ozempic. Discussed risks and benefits and adverse effects of this medication. Continue metformin 500 mg daily. (2) HLD (hyperlipidemia): Code(s): E78.5 - Hyperlipidemia, unspecified Category: Medical Qualifiers: Hyperlipidemia type: unspecified Qualified Code(s): E78.5 - Hyperlipidemia, unspecified Plan: continue atorvastatin (3) HTN (hypertension): Code(s): I10 - Essential (primary) hypertension Category: Medical Qualifiers: Hypertension type: unspecified Qualified Code(s): I10 - Essential (primary) hypertension Plan: We will monitor. Not currently on any antihypertensives. Did discuss that her blood pressure was borderline. If elevated at next visit we will restart medication. (4) Severe obesity (BMI 35.0-39.9) with comorbidity: Code(s): E66.01 - Morbid (severe) obesity due to excess calories Category: Medical Plan: Encouraged diet and weight loss. Medications: New semaglutide (Ozempic) for 4 weeks; then increase to 0.5 mg every week 0.25 mg (0.368 mL) subcut QWEEK 3 mL 3RF Coding Level of Care Code Est Pt Level 4 (88880) Complex EM visit Add On G2211 Diagnoses Controlled type 2 diabetes mellitus without complication, without long-term current use of insulin E11.9 Diabetes mellitus complication status: without complication Diabetes mellitus oil heaterman insulin use: without residential use Hyperlipidemia, unspecified hyperlipidemia type E78.5 Hyperlipidemia type: unspecified Hypertension, unspecified type I10 Hypertension type: unspecified Severe obesity (BMI 35.0-39.9) with comorbidity E66.01
[2025-02-05 14:53] LABS: Glucose, Whole Blood 105 mg/dL (60-115)
--- OUTSIDE RECORDS SUMMARY | 2025-02-05 16:17 | XMS_ITS | Encounter Summary ---
Author Organization [employer] Address [address] [facility] [address] [place] [address] Care Team Providers Care Tiger Machine Operator Name Role Phone Colby Hirsch COMMUNITY MENTAL HEALTH WORKER Unavailable Unavailable [facility] Primary Care Provider [phone] Reason for Visit * Reason Comments Med Refill Encounter Details Date Type Department Care Team ([facility] st Contact Info) Description 01/02/2025 Refill [facility] MEDICINE [address] [place], [place] [phone] [facility] [address] [place] [address] Viral upper respiratory illness Social History Tobacco [...] Description 02/26/2025 10:30 AM EDT Office Visit [address] [address] Yecenia Frias FNP [address] [place] [address] 04/30/2025 1:00 PM EDT Clinical Support [address] [address] Kira Bansal RN documented as of this encounter Visit Diagnoses Diagnosis Viral upper respiratory illness documented in this encounter Additional Health Concerns Assessment Noted Time PHQ-9 Depression Total Score: 0 10/24/19 25 1:15 PM EST documented as of this encounter Care Teams Tiger Machine Operator Relationship Specialty Start Date End Date Yecenia Frias FNP [address] [place] [id number] PCP - General Family Medicine 04/26/24 Colby Hirsch FNP Nurse Practitioner Family Medicine 07/13/23 Candice Ugarte Outboard Motors Experimental MechanicGeneral Duty Nurse 12/27/23 documented as of this encounter
== END 2025-02-05 15:07 | disposition home or self-care (01) ==
LOC: HO.ENCR 14:35
PROVIDERS: PCP Registered Nurse; Visit Provider Physician Assistant
DX: E11.9 Type 2 diabetes mellitus without complications (principal); E78.5 Hyperlipidemia, unspecified; I10 Essential (primary) hypertension; E66.01 Morbid (severe) obesity due to excess calories

== ENCOUNTER → 2025-02-05 14:34 | Outpatient (BNVA) | payer MEDICAID, SELFPAY | PROVIDERS: PCP Registered Nurse; Visit Provider Physician Assistant | DX: E11.9 Type 2 diabetes mellitus without complications (principal); I42.9 Cardiomyopathy, unspecified; I10 Essential (primary) hypertension; E78.5 Hyperlipidemia, unspecified; E66.01 Morbid (severe) obesity due to excess calories; Z68.35 Body mass index [BMI] 35.0-35.9, adult; Z79.84 Long term (current) use of oral hypoglycemic drugs; Z79.899 Other long term (current) drug therapy | CPT/HCPCS: 82947; 99212 ==

== ENCOUNTER 2025-02-21 11:00 | Outpatient (REF) | payer MEDICAID, SELFPAY ==
--- OUTSIDE RECORDS SUMMARY | 2025-02-21 11:46 | XMS_ITS | Patient Health Record ---
Author Organization [facility] Address [address] [place] [address] Care Team Providers Care Sales Project Engineer Name Role Phone Radha Rodriguez Primary Care Provider Jaylan Clancy Unavailable [phone] Allergies Allergen (clinical drug ingredient) Drug/Non Drug [...] Referring Provider Last Name Pablo Referred Organization [facility] Referred Provider Jaylan Neal Referred Address [address] [facility],[place], [place],[address], Referred Provider Specialty Gastroentero logy General Notes Please see if a [facility] referral is on file or needed for office visit with Dr. Neal on 06-20-2024. [facility] Dawn 05/09/2024 07:44:46 AM EDT > eligible, needs referrral...Requested from [facility] Referral Priority Routine Medications Medication SIG [...] DAILY Oral for 30 Active Vitamin A 72426 UNIT TAKE 1 CAPSULE BY M OUTH [...] Problem Status W/U Status Risk Notes Problem [id number] Epigastric abdom inal pain (R10.13) Active confirmed Problem 385930668 Irritable bowel syndrome with diarrhea (K58.0) Active confirmed Problem Elevated liver enzymes level (885232486) Elevated liver function tests (R79.89) Active confirmed Problem 387761341 Fatty liver (K76.0) Active confirmed Problem [id number] Gastroesophageal reflux disease, esophagitis presence not specified (K21.9) Active confirmed Problem 734019462 Abdominal pain, right upper quadrant (R10.11) Active confirmed Encounters Encounter Location Date Provider Diagnosis [facility] [address] [place] [address] 06/16/2024 Jaylan Neal Plan Of Treatment Pending Test Test Name Order Date BUN 12/29/2019 CREATININE 12/29/2019 LIVER PROFILE 12/29/2019 LIVER PROFILE 02/04/2020 LIVER PROFILE 04/09/2020 CBC w DIFF 12/29/2019 PROTHROMBIN TIME (PT, INR) 12/29/2019 [id number] (A1A) 12/29/2019 CAROTENE 12/29/2019 CERULOPLASMIN 12/29/2019 MITOCHONDRIAL [...] Start Date Coverage End Date [employer] [address] [place] [id number] HARMAN LEUNG Self - patient is the insured Medical (General) History Medical History History ICD Code Asthma Denies [place],CVA,renal disease Migraines Anxiety, depression, bipolar disease NIDDM [...]
[2025-02-21 12:23] LABS: Appearance Urine Clear; Glucose Urine UA Negative (Negative); PH 5.5 (5.0-9.0); Specific Gravity - Urine 1.015 (1.005-1.025); UMIC TRIGGER UA YES
== END 2025-02-21 11:01 | disposition home or self-care (01) ==
LOC: HO.LAB 11:00
PROVIDERS: PCP Registered Nurse; Visit Provider Urology
DX: N20.0 Calculus of kidney (principal)
CPT/HCPCS: 81001; 87086

== ENCOUNTER 2025-02-26 11:25 | Outpatient (REF) | payer MEDICAID, SELFPAY ==
--- OUTSIDE RECORDS SUMMARY | 2025-02-26 12:21 | XMS_ITS | Encounter Summary ---
Author Organization [facility] Address [address] [place] [address] Care Team Providers Care Bean Roaster Name Role Phone Colby Hirsch FACILITIES MANAGER Unavailable Unavailable [facility] Primary Care Provider [phone] Reason for Visit * Reason Comments Med Refill Encounter Details Date Type Department Care Team ([facility] st Contact Info) Description 01/02/2025 Refill [facility] [address] [place], [place] [phone] [facility] [address] [place] [address] Viral upper respiratory illness Social History Tobacco [...] Care Team (Late st Contact Info) Description 04/30/2025 1:00 PM EDT Clinical Support [facility] [address] [place] [address] Kira Bansal RN documented as of this encounter Visit Diagnoses Diagnosis Viral upper respiratory illness documented in this encounter Additional Health Concerns Assessment Noted Time PHQ-9 Depression Total Score: 0 10/24/19 25 1:15 PM EST documented as of this encounter Care Teams Bean Roaster Relationship Specialty Start Date End Date Yecenia Frias FNP [address] [place] [address] PCP - General Family Medicine 04/26/24 Colby Hirsch FNP Nurse Practitioner Family Medicine 07/13/23 Candice Ugarte Marine Equipment Design EngineerSenior Communications Specialist 12/27/23 documented as of this encounter
--- OUTSIDE RECORDS SUMMARY | 2025-02-26 12:22 | XMS_ITS | Patient Health Record ---
Author Organization [facility] Address [address] [place] [address] Care Team Providers Care Machine Guide Base Winder Name Role Phone Radha Rodriguez Primary Care Provider Jaylan Clancy Unavailable [phone] Allergies Allergen (clinical drug ingredient) Drug/Non Drug [...] Referring Provider Last Name Pablo Referred Organization [facility] Referred Provider Jaylan Neal Referred Address [address],[place], [place],[address], Referred Provider Specialty Gastroentero logy General Notes Please see if a [facility] referral is on file or needed for office visit with Dr. Neal on 06-20-2024. [facility] sm[facility] Dawn 05/09/2024 07:44:46 AM EDT > eligible, needs referrral...Requested from [facility] Referral Priority Routine Medications Medication [...] DAILY Oral for 30 Active Vitamin A 19936 UNIT TAKE 1 CAPSULE BY M OUTH [...] Problem Status W/U Status Risk Notes Problem 46820945 Epigastric abdom inal pain (R10.13) Active confirmed Problem 270234823 Irritable bowel syndrome with diarrhea (K58.0) Active confirmed Problem Elevated liver function tests (R79.89) Active confirmed Problem 854748186 Fatty liver (K76.0) Active confirmed Problem 020872710 Gastroesophageal reflux disease, esophagitis presence not specified (K21.9) Active confirmed Problem [id number] Abdominal pain, right upper quadrant (R10.11) Active confirmed Encounters Encounter Location Date Provider Diagnosis [facility] [address] [place] [id number] 06/16/2024 Jaylan Neal Plan Of Treatment Pending Test Test Name Order Date BUN 12/29/2019 CREATININE 12/29/2019 LIVER PROFILE 02/04/2020 LIVER PROFILE 04/09/2020 LIVER PROFILE 12/29/2019 CBC w DIFF 12/29/2019 PROTHROMBIN TIME (PT, INR) 12/29/2019 [id number] (A1A) 12/29/2019 CAROTENE 12/29/2019 CERULOPLASMIN 12/29/2019 MITOCHONDRIAL [...] Start Date Coverage End Date MEDICAID OF [place] [address] [place] [id number] HARMAN LEUNG Self - patient is the insured Medical (General) History Medical History History ICD Code Asthma Denies AK,CVA,renal disease Migraines Anxiety, depression, bipolar disease NIDDM [...]
[2025-02-26 14:41] LABS: Microalbum/Creatinine Ratio Ur 20.9 ug/mg cr (<30)
== END 2025-02-26 11:26 | disposition home or self-care (01) ==
LOC: HO.HHCL 11:25
PROVIDERS: PCP Registered Nurse; Visit Provider Registered Nurse
DX: E11.9 Type 2 diabetes mellitus without complications (principal); Z79.4 Long term (current) use of insulin
CPT/HCPCS: 82043; 82570

== ENCOUNTER 2025-03-07 10:45 | Day surgery (SDC) | payer MEDICAID, SELFPAY ==
--- OUTSIDE RECORDS SUMMARY | 2025-02-13 16:08 | XMS_ITS | Encounter Summary ---
Author Organization [employer] Address [address] [place] [address] Care Team Providers Care Bowl Sander Name Role Phone Colby Hirsch TRUCK SALES MANAGER Unavailable Unavailable [facility] Primary Care Provider [phone] Reason for Visit * Reason Comments Med Refill Encounter Details Date Type Department Care Team ([facility] st Contact Info) Description 01/02/2025 Refill [facility] MEDICINE [address] [place], [place] [phone] [facility] [address] [place] [address] Viral upper respiratory illness Social History Tobacco [...] Description 02/26/2025 10:30 AM EDT Office Visit [address] [address] Yecenia Frias FNP [address] [place] [address] 04/30/2025 1:00 PM EDT Clinical Support [address] [address] Kira Bansal RN documented as of this encounter Visit Diagnoses Diagnosis Viral upper respiratory illness documented in this encounter Additional Health Concerns Assessment Noted Time PHQ-9 Depression Total Score: 0 10/24/19 25 1:15 PM EST documented as of this encounter Care Teams Bowl Sander Relationship Specialty Start Date End Date Yecenia Frias FNP [address] [place] [address] PCP - General Family Medicine 04/26/24 Colby Hirsch FNP Nurse Practitioner Family Medicine 07/13/23 Candice Ugarte Theatrical TrouperCareer And Guidance Counselor 12/27/23 documented as of this encounter
[2025-02-21 12:57] VITALS: BP 123/76; PULSE 73; RESP 20; O2SAT 98; BMI 36.5
--- NOTE | 2025-02-21 13:06 | HO.ANESPROP2 ---
Documented by User: Maribel Freeman NP 03/06/25 10:12 HPI - Anesthesia Eval Consult details Narrative: 44yo F for Left Excision Mass upper arm, 03/07/25 No recent illness No CP/SOB, no edema Follows [facility] Cardiology for CMP (EF 50-55% in 2023) - stable at yearly routine office visit 03/2024 Anesthesia Pre-Procedure Meds Is the patient on any of the following meds?: GLP1/DPP4 PMFSH Active Problems Active Problems: All Active Problems Severe obesity (BMI 35.0-39.9) with comorbidity (Acute) Mass of soft tissue of upper arm (Acute) Blister of abdominal wall with infection (Acute) Postop check (Acute) Chronic abdominal pain (Acute) Controlled type 2 diabetes mellitus (Acute) Bilateral kidney stones (Acute) Palpitations (Acute) Incisional hernia of anterior abdominal wall at trocar puncture site after laparoscopic procedure (Acute) Varicose veins of left lower extremity with inflammation (Acute) Cardiomyopathy (Acute) Varicose veins of right lower extremity with inflammation (Acute) Nephrolithiasis (Acute) Nevus of face (Acute) Dermatofibroma (Acute) Impingement syndrome of right shoulder (Acute) Skin lesion (Acute) GERD (gastroesophageal reflux disease) (Acute) Asthma (Acute) Transaminitis (Acute) Vitamin D deficiency (Acute) HLD (hyperlipidemia) (Acute) HTN (hypertension) (Acute) Past Medical History Medical History (Updated 02/21/25 @ 12:54 by Adela Colby RN) Cardiomyopathy T2DM (type 2 diabetes mellitus) Hypertrophic scar of upper arm Epidermal inclusion cyst Nephrolithiasis Transaminitis GERD (gastroesophageal reflux disease) Anxiety Migraines Fatty liver Elevated cholesterol Asthma Vitamin D deficiency HLD (hyperlipidemia) HTN (hypertension) Diabetes mellitus Family History Family History Father Heart disease Mother No problems noted. Family history of problems with anesthesia: No Surgical History Surgical History (Updated 02/20/25 @ 11:24 by Adela Colby RN) History of surgical removal of skin lesion (08/27/22) H/O lithotripsy History of local excision of skin lesion History of hysterectomy (~2011) History of Problems with Anesthesia: No Social History Social History Are you a primary primary care physician to a significant other at home: No Do you presently have visiting nurse or other home services: No Alcohol intake: never Patient Tobacco Use Status: Never used Tobacco Second Hand Smoke Exposure: No Use of substances other than those prescribed or required for medical reasons: No Have you been hit, kicked, punched, or otherwise hurt by someone within the past year? If so, by whom?: No Spiritual Healthcare Practices: no Gnosticism Healthcare Practices: no Cultural Healthcare Practices: no Are you DNR?: No Advance Directives: No ( is primary contact) Advance Directives Information Provided: Yes (as above noted) Advance Directives on File: No Patient : No FDLMP: n/a-had hysterectomy : No Poor oral hygiene: No Meds Allergies Allergy/AdvReac Type Severity Reaction Status Date / Time pineapple Allergy Severe tongue Verified 03/07/25 11:02 swelling diphenhydramine (From Allergy Intermediate HALLUCINATI Verified 03/07/25 11:02 BENADRYL) ONS morphine (MORPHINE) Allergy Intermediate DIAPHORESIS; Verified 03/07/25 11:02 TACHYCARDIA, palpitations, sweating, tingling of hands and face quetiapine (From SEROQUEL) Allergy Intermediate PALPITATION Verified 03/07/25 11:02 S seafood Allergy Intermediate redness/itc Verified 03/07/25 11:02 akhil tomato Allergy Intermediate Blister Verified 03/07/25 11:02 trazodone (TRAZODONE) Allergy Intermediate GI Upset, Verified 03/07/25 11:02 HEART RACING, palpitations prednisone (PREDNISONE) AdvReac Intermediate HEART RACES Verified 03/07/25 11:02 Home Medications ?Medication ?Instructions ?Recorded ?Confirmed ?Last Taken ?Type albuterol sulfate 90 mcg/actuation 2 puff inhalation Q4-6H PRN 10/01/20 03/07/25 10/09/20 06:30 History aerosol inhaler Shortness Of Breath albuterol sulfate 2.5 mg/3 mL 2.5 mg inhalation TID PRN wheezing 04/15/21 03/07/25 Unknown History (0.083 %) solution for nebulization buspirone 10 mg tablet 10 mg PO TID 04/15/21 03/07/25 Unknown History docusate sodium 100 mg capsule 100 mg PO BID PRN Constipation 04/15/21 03/07/25 Unknown History pantoprazole 40 mg tablet,delayed 40 mg PO DAILY 04/15/21 03/07/25 Unknown History release sennosides 8.6 mg tablet (Senna 17.2 mg PO DAILY PRN constipation 04/15/21 03/07/25 Unknown History Laxative) vitamin A 3,000 mcg (10,000 unit) 1 cap PO DAILY 04/15/21 03/07/25 Unknown History capsule escitalopram oxalate 20 mg tablet 20 mg PO DAILY 12/16/21 03/07/25 Unknown History clonazepam 0.5 mg tablet 0.5 mg PO DAILY PRN anxiety 02/03/22 03/07/25 03/07/25 History acetaminophen 650 mg 650 mg PO Q6H PRN Pain 02/20/25 03/07/25 Unknown History tablet,extended release budesonide-formoterol HFA 80 2 puff inhalation Q4-6H PRN 02/21/25 03/07/25 03/07/25 History mcg-4.5 mcg/actuation aerosol wheezing inhaler (Symbicort) Exam Height,Weight and Vital Signs: Height 5 ft Weight 84.822 kg Last Vital Signs Pulse 73 02/21/25 12:57 Resp 20 02/21/25 12:57 BP 123/76 02/21/25 12:57 Pulse Ox 98 02/21/25 12:57 O2 Del Method Room Air 02/21/25 12:57 Pertinent Lab Results Pertinent Lab Results: Laboratory Tests 12/25/24 15:00 WBC 7.6 Hgb 12.4 Hct 37.9 Plt Count 261 Sodium 143 Potassium 3.6 Chloride 108 Carbon Dioxide 28 BUN 7 L Creatinine 0.69 Narrative Narrative: EKG 12/2024 Vent. Rate : 91 BPM Atrial Rate : 91 BPM P-R Int : 152 ms QRS Dur : 76 ms QT Int : 364 ms P-R-T Axes : 35 20 29 degrees QTcB Int : 447 ms Normal sinus rhythm Normal ECG When compared with ECG of 15-May-2024 14:03, No significant change was found ECHO 2023 Conclusions: - 1. Low normal LV ejection fraction 50-55% 2. Normal cardiac valvular Doppler 3. No gross pericardial effusion Airway Mallampati Class: III TM Dist: >3cm Neck ROM: Full Denture: Upper and Lower Heart: RRR Lungs: CTAB Assessment and Plan Assessment Anesthesia Assessment: Chart Reviewed Final Anesthetic Review Family History of Problems with Anesthesia: No History of Problems with Anesthesia: No Documented by User: Wanda Reyes MD 03/07/25 11:09 [facility] Past Medical History Medical History (Updated 02/21/25 @ 12:54 by Adela Colby RN) Cardiomyopathy T2DM (type 2 diabetes mellitus) Hypertrophic scar of upper arm Epidermal inclusion cyst Nephrolithiasis Transaminitis GERD (gastroesophageal reflux disease) Anxiety Migraines Fatty liver Elevated cholesterol Asthma Vitamin D deficiency HLD (hyperlipidemia) HTN (hypertension) Diabetes mellitus Family History Family History Father Heart disease Mother No problems noted. Surgical History Surgical History (Updated 02/20/25 @ 11:24 by Aedla Colby RN) History of surgical removal of skin lesion (08/27/22) H/O lithotripsy History of local excision of skin lesion History of hysterectomy (~2011) Social History Social History Are you a primary primary care physician to a significant other at home: No Do you presently have visiting nurse or other home services: No Alcohol intake: never Patient Tobacco Use Status: Never used Tobacco Second Hand Smoke Exposure: No Use of substances other than those prescribed or required for medical reasons: No Have you been hit, kicked, punched, or otherwise hurt by someone within the past year? If so, by whom?: No Spiritual Healthcare Practices: no Gnosticism Healthcare Practices: no Cultural Healthcare Practices: no Are you DNR?: No Advance Directives: No ( is primary contact) Advance Directives Information Provided: Yes (as above noted) Advance Directives on File: No Patient : No FDLMP: n/a-had hysterectomy : No Poor oral hygiene: No Meds Allergies Allergy/AdvReac Type Severity Reaction Status Date / Time pineapple Allergy Severe tongue Verified 03/07/25 11:02 swelling diphenhydramine (From Allergy Intermediate HALLUCINATI Verified 03/07/25 11:02 BENADRYL) ONS morphine (MORPHINE) Allergy Intermediate DIAPHORESIS; Verified 03/07/25 11:02 TACHYCARDIA, palpitations, sweating, tingling of hands and face quetiapine (From SEROQUEL) Allergy Intermediate PALPITATION Verified 03/07/25 11:02 S seafood Allergy Intermediate redness/itc Verified 03/07/25 11:02 akhil tomato Allergy Intermediate Blister Verified 03/07/25 11:02 trazodone (TRAZODONE) Allergy Intermediate GI Upset, Verified 03/07/25 11:02 HEART RACING, palpitations prednisone (PREDNISONE) AdvReac Intermediate HEART RACES Verified 03/07/25 11:02 Home Medications ?Medication ?Instructions ?Recorded ?Confirmed ?Last Taken ?Type albuterol sulfate 90 mcg/actuation 2 puff inhalation Q4-6H PRN 10/01/20 03/07/25 10/09/20 06:30 History aerosol inhaler Shortness Of Breath albuterol sulfate 2.5 mg/3 mL 2.5 mg inhalation TID PRN wheezing 04/15/21 03/07/25 Unknown History (0.083 %) solution for nebulization buspirone 10 mg tablet 10 mg PO TID 04/15/21 03/07/25 Unknown History docusate sodium 100 mg capsule 100 mg PO BID PRN Constipation 04/15/21 03/07/25 Unknown History pantoprazole 40 mg tablet,delayed 40 mg PO DAILY 04/15/21 03/07/25 Unknown History release sennosides 8.6 mg tablet (Senna 17.2 mg PO DAILY PRN constipation 04/15/21 03/07/25 Unknown History Laxative) vitamin A 3,000 mcg (10,000 unit) 1 cap PO DAILY 04/15/21 03/07/25 Unknown History capsule escitalopram oxalate 20 mg tablet 20 mg PO DAILY 12/16/21 03/07/25 Unknown History clonazepam 0.5 mg tablet 0.5 mg PO DAILY PRN anxiety 02/03/22 03/07/25 03/07/25 History acetaminophen 650 mg 650 mg PO Q6H PRN Pain 02/20/25 03/07/25 Unknown History tablet,extended release budesonide-formoterol HFA 80 2 puff inhalation Q4-6H PRN 02/21/25 03/07/25 03/07/25 History mcg-4.5 mcg/actuation aerosol wheezing inhaler (Symbicort) Exam Airway Mallampati Class: II Assessment and Plan Assessment Anesthesia Assessment: Anesthesia Plan Discussed Final Anesthetic Review NPO: Yes ASA Class: III Final Preanesthetic Review: No Changes in Pt Med Stat, Meds/Allgs Chart Reviewed and Consent Obtained/Reviewed Patient Risk: Intermediate Procedure Risk: Low Anesthetic Plan Anesthetic Plan: MAC: Disposition: Standard PACU
[2025-03-07 11:09] VITALS: BP 147/88; PULSE 94; RESP 16; TEMP 36.7; O2SAT 100; BMI 36.6
[2025-03-07 11:21] LABS: Glucose, Whole Blood 92 mg/dL (60-115)
[2025-03-07] MEDS: Lactated Ringers 1,000 ML 50 ML IVCONT (11:31)
--- NOTE | 2025-03-07 11:47 | MHC.SHP ---
Pre-Procedural Eval Section A - 24 Hr Update-Section A only Date of Service: 03/07/25 The patient is an INPATIENT: No Changes since office visit: Yes Patient answered all questions; No Cold of Flu in the past 2 weeks, No New Medical Problems and No Changes in Medication Section B - Complete if H&P > 30 days Chief Complaint: Other specified soft tissue disorders Details of Present Illness: No change in patient's symptoms Relevant Family History (Specify if Yes): No Relevant Social History: None Present Medications: see Short Stay Collaborative assessment Medical History: No relevant PMH History of Previous Operations: Relevant previous surgery/procedure and date(s) (Previous excision at the same site) Allergies: Allergies Allergy/AdvReac Type Severity Reaction Status Date / Time pineapple Allergy Severe tongue Verified 03/07/25 11:02 swelling diphenhydramine (From Allergy Intermediate HALLUCINATI Verified 03/07/25 11:02 BENADRYL) ONS morphine (MORPHINE) Allergy Intermediate DIAPHORESIS; Verified 03/07/25 11:02 TACHYCARDIA, palpitations, sweating, tingling of hands and face quetiapine (From SEROQUEL) Allergy Intermediate PALPITATION Verified 03/07/25 11:02 S seafood Allergy Intermediate redness/itc Verified 03/07/25 11:02 akhil tomato Allergy Intermediate Blister Verified 03/07/25 11:02 trazodone (TRAZODONE) Allergy Intermediate GI Upset, Verified 03/07/25 11:02 HEART RACING, palpitations prednisone (PREDNISONE) AdvReac Intermediate HEART RACES Verified 03/07/25 11:02 Review of Systems Sugical H&P ROS: Negative: Constitution, Cardiovascular, Respiratory, Neurological, Psychiatric, Hem-Onc, Allergic/Immunologic, Gastrointestinal, Genitourinary, Musculoskeletal, Integumentary, Endocrine and Eyes/Ears/Nose/Throat Exam Surgical H&P Exam: Normal: HEENT, Normal: Heart, Normal: Lungs, Normal: Extremities, Normal: Abdomen, Normal: Skin and Normal: Neurological Plan Diagnosis/Plan: Unchanged I have reviewed the history and physical and performed a pertinent physical examination on my patient. No changes have occurred unless specified. Time Spent With Patient Time: Total time managing care of this patient today ____ minutes.
[2025-03-07 13:25] VITALS: BP 112/64; PULSE 94; RESP 20; TEMP 36.4; O2SAT 94
--- NOTE | 2025-03-07 13:27 | W.PM.OPN ---
Operative Note Operative Note Date of Service: 03/07/25 Narrative: Preoperative diagnosis: Mass left upper arm Postoperative diagnosis: Same Procedure: Excision of mass with left upper arm Surgeon: Lionel Cintron MD Professor Of Early Childhood Education: Barry Martines PA-C, Konstantin STEWART Anesthesia:MAC plus local Indications for procedure: 44-year-old female patient status post excision of a mass of the left upper arm now with complaints of further pain and a palpable lump Operative findings: Residual scar tissue and lipoma left upper arm Specimen: Lipoma left upper arm Estimated blood loss: 2 mL Complications: None Procedure details: Patient was brought to the OR placed in a supine position. After administering sedation the patient's left arm was prepped with ChloraPrep and draped in a sterile fashion. A surgical time-out was called the consent confirmed. Patient received preoperative antibiotics and Venodyne boots were in place. Local anesthesia was infiltrated in a circumferential fashion around the previous transverse incision. An elliptical incision was then created again oriented transversely to include the entire previous scar. This was carried out through subcutaneous tissue and excised using electrocautery. A lipoma was noted below the incision. This was grasped with an Allis clamp and gently dissected from the surrounding subcutaneous tissue. Bleeding vessels were cauterized using electrocautery. This was passed off the table and sent to pathology for further examination. After assuring adequate hemostasis the incision was irrigated with saline solution and suctioned dry. Dermis was then reapproximated using interrupted 3-0 Polysorb sutures. Skin was then closed using a running subcuticular 4-0 Polysorb suture. Steri-Strips, 2 x 2 gauze and Tegaderm were then applied. The patient tolerated the procedure well. Sponge, instrument, and needle counts reported as correct. The patient was transferred to PACU in stable condition.
[2025-03-07 13:40] VITALS: BP 114/67; PULSE 69; RESP 20; O2SAT 95
[2025-03-07 13:55] VITALS: BP 119/74; PULSE 71; RESP 20; TEMP 36.3; O2SAT 97
== END 2025-03-07 14:45 | disposition home or self-care (01) ==
PROVIDERS: Visit Provider Surgery
PROC: (CPT 24071; principal; 2025-03-07 12:30)
DX: D17.22 Benign lipomatous neoplasm of skin and subcutaneous tissue of left arm (principal); L91.0 Hypertrophic scar; M79.622 Pain in left upper arm; I10 Essential (primary) hypertension; E78.00 Pure hypercholesterolemia, unspecified; E11.9 Type 2 diabetes mellitus without complications; K21.9 Gastro-esophageal reflux disease without esophagitis; Z79.1 Long term (current) use of non-steroidal anti-inflammatories (NSAID); Z79.84 Long term (current) use of oral hypoglycemic drugs; Z79.85 Long-term (current) use of injectable non-insulin antidiabetic drugs; Z79.899 Other long term (current) drug therapy; Z88.5 Allergy status to narcotic agent; Z88.8 Allergy status to other drugs, medicaments and biological substances
CPT/HCPCS: 24071; 82947; 88304; J0690; J1100; J1885; J2003; J2250; J2405; J2704; J3010

== ENCOUNTER → 2025-03-07 10:45 | Outpatient (BNV) | payer MEDICAID, SELFPAY | PROVIDERS: Visit Provider Surgery | DX: D17.22 Benign lipomatous neoplasm of skin and subcutaneous tissue of left arm (principal); L91.0 Hypertrophic scar | CPT/HCPCS: 11404; 24071 ==

== ENCOUNTER 2025-03-13 12:28 | Outpatient (AMB) | payer MEDICAID, SELFPAY ==
--- NOTE | 2025-03-13 12:41 | A.OFFVIS_ITS ---
Vital Signs 03/13/25 12:55 Height 5 ft Weight 189 lb BMI 36.9 BP 129/90 H Blood Pressure Location Lt brachial Position Sitting Pulse 91 Intake Visit Reasons: S/P excision mass Lt. upper arm Intake Note: Patient is seen in office for post op assessment post excision left upper arm mass. Pt c/o: admits to pain in the area and bruising, requesting pain meds Community Health Advocate Required: Yes Community Health Advocate Language: Metal Pickling Equipment Operator Services: Community Health Advocate Present Community Health Advocate Name: Ronda MENG Information Interpreted: non-clinical & clinical Women Nurse: Women Nurse Present Accompanied by: Self / Same As Patient Allergies pineapple Allergy (Severe, Verified 03/13/25 13:12) tongue swelling diphenhydramine (From BENADRYL) Allergy (Intermediate, Verified 03/13/25 13:12) HALLUCINATIONS morphine (MORPHINE) Allergy (Intermediate, Verified 03/13/25 13:12) DIAPHORESIS; TACHYCARDIA, palpitations, sweating, tingling of hands and face quetiapine (From SEROQUEL) Allergy (Intermediate, Verified 03/13/25 13:12) PALPITATIONS seafood Allergy (Intermediate, Verified 03/13/25 13:12) redness/itching tomato Allergy (Intermediate, Verified 03/13/25 13:12) Blister trazodone (TRAZODONE) Allergy (Intermediate, Verified 03/13/25 13:12) GI Upset, HEART RACING, palpitations prednisone (PREDNISONE) Adverse Reaction (Intermediate, Verified 03/13/25 13:12) HEART RACES HPI Comments Details: 44-year-old female patient returning to the office for an unscheduled appointment following excision of a lipoma and incision of the left upper arm. The patient previously reported pain at the incision and requested an excision to be performed. This was performed on 03/07/2025. She notes some bruising around the incision but denies any swelling or discharge. The patient is requesting pain medication although she is on a regular dose of tramadol daily. [facility] Medical History Cardiomyopathy T2DM (type 2 diabetes mellitus) Hypertrophic scar of upper arm Epidermal inclusion cyst Nephrolithiasis Transaminitis GERD (gastroesophageal reflux disease) Anxiety Migraines Fatty liver Elevated cholesterol Asthma Vitamin D deficiency HLD (hyperlipidemia) HTN (hypertension) Diabetes mellitus Surgical History History of surgical removal of skin lesion (08/27/22) H/O lithotripsy History of local excision of skin lesion History of hysterectomy (~2011) Family History Father Heart disease Mother No problems noted. Social History Are you a primary home care aide to a significant other at home: No Do you presently have visiting nurse or other home services: No Unable to assess alcohol history related to: Unknown Alcohol intake: never Patient Tobacco Use Status: Never used Tobacco Smoked in Last 30 Days: No Second Hand Smoke Exposure: No Use of substances other than those prescribed or required for medical reasons: Unknown Advance Directives: No Advance Directives Information Provided: No Do you have a plan to hurt others: No Plan Patient : No Review of Systems Const All systems reviewed & are unremarkable except as noted in HPI and below Physical Exam Vital Signs: Last Vital Signs Pulse 91 03/13/25 12:55 BP 129/90 H 03/13/25 12:55 BMI result Body Mass Index 36.9 HEENT Head: Yes normocephalic and Yes atraumatic Resp Effort & Inspection: normal respiratory effort Extrem Other: Left upper arm with the incision that is clean, dry and intact with intact Steri-Strips. There was a expected surrounding ecchymosis but no palpable hematoma or seroma appreciated. Assessment & Plan Assessment & Plan (1) Skin lesion: Code(s): L98.9 - Disorder of the skin and subcutaneous tissue, unspecified Category: Surgical Plan Patient's wounds are healing nicely with no evidence of infection or hematoma. There is the expected surrounding ecchymosis. The patient was given a prescription for Toradol although this could not be filled at the pharmacy because she has not received a prior IV dose. She was therefore asked to take Aleve. Medications: New ketorolac 10 mg PO Q8H PRN 14 tabs 0RF pain 3 days L98.9 - Disorder of the skin and subcutaneous tissue, unspecified Coding Level of Care Code Global (24324) Diagnoses Skin lesion L98.9
[2025-03-13 12:55] VITALS: BP 129/90; PULSE 91; BMI 36.9
--- OUTSIDE RECORDS SUMMARY | 2025-03-13 13:29 | XMS_ITS | Encounter Summary ---
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 Unavailable Unavailable [facility] Primary Care Provider [phone] Reason for Visit * Reason Comments Med Refill Encounter Details Date Type Department Care Team ([facility] st Contact Info) Description 01/02/2025 Refill [facility] [address] [place], [place] [id number] [facility] [address] [place] [address] Viral upper respiratory illness Social History Tobacco [...] Description 04/30/2025 1:00 PM EDT Clinical Support [facility] [address] [place] [address] Kira Bansal RN documented as of this encounter Visit Diagnoses Diagnosis Viral upper respiratory illness documented in this encounter Additional Health Concerns Assessment Noted Time PHQ-9 Depression Total Score: 0 10/24/19 25 1:15 PM EST documented as of this encounter Care Teams Oil Burner Technician Relationship Specialty Start Date End Date Yecenia Frias FNP [address] [place] [address] PCP - General Family Medicine 04/26/24 Colby Hirsch FNP Nurse Practitioner Family Medicine 07/13/23 Candice Ugarte Senior Nurse ManagerGarageman 12/27/23 documented as of this encounter
--- OUTSIDE RECORDS SUMMARY | 2025-03-13 13:29 | XMS_ITS | Patient Health Record ---
Author Organization [facility] Address [address] [place] [address] Care Team Providers Care Umbrella Cutter Name Role Phone Radha Rodriguez Primary Care Provider Jaylan Clancy Unavailable [phone] Allergies Allergen (clinical drug ingredient) Drug/Non Drug [...] Referring Provider Last Name Pablo Referred Organization [facility] Referred Provider Jaylan Neal Referred Address [address],[place], [place],[address], Referred Provider Specialty Gastroentero logy General Notes Please see if a [facility] referral is on file or needed for office visit with Dr. Neal on 06-20-2024. [facility]a sm[facility] Dawn 05/09/2024 07:44:46 AM EDT > eligible, needs referrral...[facility]ed from [facility] Referral Priority Routine Medications Medication [...] DAILY Oral for 30 Active Vitamin A 00882 UNIT TAKE 1 CAPSULE BY M OUTH [...] Problem Status W/U Status Risk Notes Problem 04164597 Epigastric abdom inal pain (R10.13) Active confirmed Problem 404329099 Irritable bowel syndrome with diarrhea (K58.0) Active confirmed Problem Elevated liver function tests (R79.89) Active confirmed Problem 245312081 Fatty liver (K76.0) Active confirmed Problem 732431899 Gastroesophageal reflux disease, esophagitis presence not specified (K21.9) Active confirmed Problem 730061772 Abdominal pain, right upper quadrant (R10.11) Active confirmed Encounters Encounter Location Date Provider Diagnosis [facility] [address] [place] [phone] 06/16/2024 Jaylan Neal Plan Of Treatment Pending Test Test Name Order Date BUN 12/29/2019 CREATININE 12/29/2019 LIVER PROFILE 02/04/2020 LIVER PROFILE 04/09/2020 LIVER PROFILE 12/29/2019 CBC w DIFF 12/29/2019 PROTHROMBIN TIME (PT, INR) 12/29/2019 [id number] (A1A) 12/29/2019 CAROTENE 12/29/2019 CERULOPLASMIN 12/29/2019 MITOCHONDRIAL [...] Start Date Coverage End Date MEDICAID OF [employer] [address] [place] [phone] [id number] HARMAN LEUNG Self - patient is the insured Medical (General) History Medical History History ICD Code Asthma Denies [place],CVA,renal disease Migraines Anxiety, depression, bipolar disease NIDDM [...]
== END 2025-03-13 13:21 | disposition home or self-care (01) ==
LOC: HO.HGS 12:29
PROVIDERS: Visit Provider Surgery
DX: L98.9 Disorder of the skin and subcutaneous tissue, unspecified (principal)
CPT/HCPCS: 99024

== ENCOUNTER 2025-03-13 12:58 | Emergency (ER) | payer MEDICAID, SELFPAY ==
--- NOTE | ~2025-03-13 | XR_ITS ---
EXAMINATION: XR CHEST CLINICAL INFORMATION: chest pain COMPARISON: 12/25/2024 TECHNIQUE: Frontal view of the chest was obtained. FINDINGS: No significant abnormality is noted involving the heart, lungs, mediastinum, bony thorax or soft tissues. XR/XR chest 1V IMPRESSION: No acute disease, stable chest Electronically signed by: Dipak Castaneda MD 03/13/2025 01:52 PM EDT RP
--- NOTE | 2025-03-13 13:01 | ECG_ITS ---
Test Reason : CP/DIZZINESS Blood Pressure : */* mmHG Vent. Rate : 82 BPM Atrial Rate : 82 BPM P-R Int : 144 ms QRS Dur : 74 ms QT Int : 374 ms P-R-T Axes : 31 18 15 degrees QTcB Int : 436 ms Normal sinus rhythm Normal ECG When compared with ECG of 25-Dec-2024 14:26, No significant change was found Referred By: Generic ED Physician Electronically Signed By: Marshal Arriaza
[2025-03-13 13:06] VITALS: BP 139/94; PULSE 85; RESP 16; TEMP 37; O2SAT 99; BMI 36.9
--- NOTE | 2025-03-13 13:13 | ED.CHESTPAIN ---
HPI - Chest Pain General Chief Complaint: Chest Pain Stated Complaint: CP, Dizziness Time Seen by Provider: 03/13/25 17:52 Source: patient Mode of arrival: ambulatory Limitations: language barrier (Andorran speaking only, [facility] corridor redevelopment manager used) History of Present Illness ED Provider: Dr. Harry Delgado HPI narrative: 44-year-old female with a history of diabetes mellitus, hypertension, hyperlipidemia, cardiomegaly, GERD, anxiety, palpitations who presents emergency department for evaluation of 5 days of intermittent dizziness and chest pain. Patient states that the pain came on suddenly on Wednesday morning, 03/10/2025. She states that she got up from bed and felt like she was spinning. She states when she tried to walk she would lose her balance. She states that if she lie down and rest the dizziness would go away. She states she had blurred dizziness with the dizziness but this would also resolve with rest. Patient also developed a midsternal chest pain which she describes as a squeezing sensation which came on with the dizziness and would resolve when the dizziness resolved. Patient states she has had multiple episodes of dizziness and chest pain since onset. She denied fever, chills, nausea, vomiting. She states she does have some slight shortness of breath and feels short of breath with exertion when she is dizzy. This is a 1st episode of dizziness. The patient had a mass removed from her left biceps area on 03/07/2025. Related Data Home Medications ?Medication ?Instructions ?Recorded ?Confirmed albuterol sulfate 90 mcg/actuation 2 puff inhalation Q4-6H PRN 10/01/20 03/07/25 aerosol inhaler Shortness Of Breath albuterol sulfate 2.5 mg/3 mL 2.5 mg inhalation TID PRN wheezing 04/15/21 03/07/25 (0.083 %) solution for nebulization buspirone 10 mg tablet 10 mg PO TID 04/15/21 03/07/25 docusate sodium 100 mg capsule 100 mg PO BID PRN Constipation 04/15/21 03/07/25 pantoprazole 40 mg tablet,delayed 40 mg PO DAILY 04/15/21 03/07/25 release sennosides 8.6 mg tablet (Senna 17.2 mg PO DAILY PRN constipation 04/15/21 03/07/25 Laxative) vitamin A 3,000 mcg (10,000 unit) 1 cap PO DAILY 04/15/21 03/07/25 capsule escitalopram oxalate 20 mg tablet 20 mg PO DAILY 12/16/21 03/07/25 clonazepam 0.5 mg tablet 0.5 mg PO DAILY PRN anxiety 02/03/22 03/07/25 acetaminophen 650 mg 650 mg PO Q6H PRN Pain 02/20/25 03/07/25 tablet,extended release budesonide-formoterol HFA 80 2 puff inhalation Q4-6H PRN 02/21/25 03/07/25 mcg-4.5 mcg/actuation aerosol wheezing inhaler (Symbicort) Previous Rx's ?Medication ?Instructions ?Recorded tramadol 50 mg tablet 50 mg PO Q8H PRN pain (scale score 04/15/21 1-3) #14 tabs cholecalciferol (vitamin D3) 50 50 mcg PO DAILY 30 days #30 caps 03/10/22 mcg (2,000 unit) capsule ibuprofen 600 mg tablet 600 mg PO Q6H PRN pain #30 tabs 07/13/22 pen needle, diabetic 32 gauge x #100 ea 11/23/2308/26 (Novofine 32) atorvastatin 40 mg tablet 40 mg PO DAILY #90 tabs 07/31/24 blood sugar diagnostic (FreeStyle #100 ea 08/09/24 Lite Strips) blood-glucose meter (FreeStyle #1 ea 08/09/24 Lite Meter kit) lancets 28 gauge (FreeStyle #100 ea 08/09/24 Lancets) lancets 33 gauge (TRUEplus Lancets) 1 gauge miscellaneous QID for 01/01/25 diabetes mellitus 30 days #100 ea metformin 500 mg tablet,extended 500 mg PO QPM #90 tabs 01/01/25 release 24 hr semaglutide 0.25 mg or 0.5 mg (2 0.25 mg (0.368 mL) subcut QWEEK #3 02/05/25 mg/3 mL) subcutaneous pen injector mL (Ozempic) pyridoxine (vitamin B6) 100 mg 100 mg PO DAILY 90 days #90 tabs 03/12/25 tablet ketorolac 10 mg tablet 10 mg PO Q8H PRN pain 3 days #14 03/13/25 tabs meclizine 25 mg tablet (Dramamine 25 mg PO TID PRN dizziness #20 tabs 03/13/25 Less Drowsy) Allergies Allergy/AdvReac Type Severity Reaction Status Date / Time pineapple Allergy Severe tongue Verified 03/13/25 13:12 swelling diphenhydramine (From Allergy Intermediate HALLUCINATI Verified 03/13/25 13:12 BENADRYL) ONS morphine (MORPHINE) Allergy Intermediate DIAPHORESIS; Verified 03/13/25 13:12 TACHYCARDIA, palpitations, sweating, tingling of hands and face quetiapine (From SEROQUEL) Allergy Intermediate PALPITATION Verified 03/13/25 13:12 S seafood Allergy Intermediate redness/itc Verified 03/13/25 13:12 akhil tomato Allergy Intermediate Blister Verified 03/13/25 13:12 trazodone (TRAZODONE) Allergy Intermediate GI Upset, Verified 03/13/25 13:12 HEART RACING, palpitations prednisone (PREDNISONE) AdvReac Intermediate HEART RACES Verified 03/13/25 13:12 Review of Systems Review of Systems: Yes all other systems are reviewed and are negative [facility] Past Medical History [facility] Narrative: Social history: She denies tobacco, alcohol and drug use Medical History Cardiomyopathy T2DM (type 2 diabetes mellitus) Hypertrophic scar of upper arm Epidermal inclusion cyst Nephrolithiasis Transaminitis GERD (gastroesophageal reflux disease) Anxiety Migraines Fatty liver Elevated cholesterol Asthma Vitamin D deficiency HLD (hyperlipidemia) HTN (hypertension) Diabetes mellitus Surgical History History of surgical removal of skin lesion (08/27/22) H/O lithotripsy History of local excision of skin lesion History of hysterectomy (~2011) Family History Family History Father Heart disease Mother No problems noted. Social History Social History Are you a primary skin care therapist to a significant other at home: No Do you presently have visiting nurse or other home services: No Unable to assess alcohol history related to: Unknown Alcohol intake: never Patient Tobacco Use Status: Never used Tobacco Smoked in Last 30 Days: No Second Hand Smoke Exposure: No Use of substances other than those prescribed or required for medical reasons: Unknown Advance Directives: No Advance Directives Information Provided: No Do you have a plan to hurt others: No Plan Patient : No Physical Exam Vital Signs: Vital Signs: Last Vital Signs Temp 98.6 F 03/13/25 19:25 Pulse 85 03/13/25 19:25 Resp 16 03/13/25 19:25 BP 139/94 H 03/13/25 19:25 Pulse Ox 99 03/13/25 19:25 O2 Del Method Room Air 03/13/25 19:25 BMI result Body Mass Index 36.9 Vital signs revealed an elevated blood pressure of 139/94 Exam: General: Awake, alert in no distress Head: Normocephalic, atraumatic EENT: PERRL, positive lateral nystagmus, Lids normal, sclera normal, conjunctiva normal, nose normal , ears normal, throat without erythema or exudates Neck: Supple, no adenopathy Lung: breath sounds symmetric, no wheezing, rales or rhonchi Chest: symmetric movement, tenderness palpation over the sternum and left costochondral joints Heart: regular rate and rhythm, normal S1, S2 no murmurs or rubs Abdomen: soft, non-tender, nondistended, normal bowel sounds Back: no vertebral tenderness, no CVAT Extremities: no deformities, moves all extremities symmetrically, the patient has a an area of ecchymosis to her left biceps secondary to her recent surgical procedure Neuro: General: ?Awake, alert, oriented, normal speech Cranial nerves: ?Cranial nerves ?intact Strength: ?Moves all extremities symmetrically, strength 5/5 Cerebellar: ?Good luylxq-vm-pnbb-to-finger, good rapid finger movement, normal heel to preciado Psych: Pleasant, cooperative Course Course Course Narrative: RME: 44 yold female presents to the ED for left sided chest pain with dizziness for the past 3 days. patient denies any leg swelling, slurred speech, facial droop, headacne, nasuea, vomitting, loss of vision, or weakness. labs, EKG ordered Medications Administered Discontinued Medications Generic Name Dose Route Start Last Admin Trade Name Freq PRN Reason Stop Dose Admin Meclizine HCl 25 mg 03/13/25 19:06 03/13/25 19:16 Meclizine Hcl 25 Mg Tablet PO 03/13/25 19:07 25 mg ONCE STA Administration Medical Decision Making Medical Decision Making [facility] Narrative: 44-year-old female with a history of diabetes mellitus, hypertension, hyperlipidemia, cardiomegaly, GERD, anxiety, palpitations who presents emergency department for evaluation of 5 days of intermittent dizziness and chest pain. Patient states that the pain came on suddenly on Wednesday morning, 03/10/2025. She states that she got up from bed and felt like she was spinning. She states when she tried to walk she would lose her balance. She states that if she lie down and rest the dizziness would go away. She states she had blurred dizziness with the dizziness but this would also resolve with rest. Patient also developed a midsternal chest pain which she describes as a squeezing sensation which came on with the dizziness and would resolve when the dizziness resolved. Patient states she has had multiple episodes of dizziness and chest pain since onset. She denied fever, chills, nausea, vomiting. She states she does have some slight shortness of breath and feels short of breath with exertion when she is dizzy. This is a 1st episode of dizziness. The patient had a mass removed from her left biceps area on 03/07/2025. Vital signs revealed an elevated blood pressure of 139/94 otherwise unremarkable. Patient did have lateral nystagmus with a normal neurologic exam and negative cerebellar exam. Patient does have ecchymosis to her left triceps area consistent with the recent surgery. She also tenderness palpation over her sternum and left costochondral joints Differential diagnosis: ?Includes but is not limited to cerebellar stroke, benign positional vertigo, myocardial infarction, myocardial ischemia, chest wall pain, costochondritis anemia, electrolyte abnormalities Course: 19:17 My independent interpretation patient's laboratory evaluation as follows: CBC was normal. Coags were normal. Glucose elevated 132. AST elevated 35. First troponin was below detectable limits, 3 hour troponin was below detectable limits. Twelve EKG was unremarkable. Patient's haziness is consistent with benign positional vertigo, chest pain is consistent with costochondritis. The patient was given meclizine 25 mg orally here in the emergency department she was started on meclizine 25 mg 3 times a day as needed for dizziness. She was given printed and verbal instructions discharged home. Admission/Observation Consideration of admission/observation: Escalation of care including admission/observation considered (Yes) Lab Data [facility] Lab Attestation statement: I reviewed the patient's lab results. 03/13/25 13:20 03/13/25 13:20 Labs: Lab Results 03/13/25 03/13/25 Range/Units 13:20 16:31 WBC 8.8 (4.8-10.8) X10*3/uL RBC 4.51 (4.20-5.50) X10*6/uL Hgb 12.2 (12.0-16.0) g/dl Hct 36.5 L (37.0-47.0) % MCV 80.9 (80.0-98.0) fL MCH 27.1 (27.0-33.0) pg MCHC 33.4 (31.0-35.0) g/dl RDW 13.5 (11.0-16.0) % Plt Count 254 (160-400) X10*3/uL MPV 9.6 (9.4-12.3) fL Immature Gran % (Auto) 0.5 H (0.0-0.4) % Neut % (Auto) 62.9 (45-73) % Lymph % (Auto) 28.2 (20-40) % Barnwell % (Auto) 5.1 (2-11) % Eos % (Auto) 3.1 (0-4) % Baso % (Auto) 0.2 (0-2) % Lymph # (Auto) 2.5 (1.2-4.9) X10*3/uL Barnwell # (Auto) 0.5 (0.1-1.2) X10*3/uL Eos # (Auto) 0.3 (0.0-0.4) X10*3/uL Baso # (Auto) 0.0 (0.0-0.2) X10*3/uL Abs Immat Gran (auto) 0.04 H (0.00-0.03) X10*3/uL Absolute Neuts (auto) 5.6 (2.0-8.3) x10*3/uL Absolute Nucleated RBC 0.000 (0.0-0.012) X10*3/uL Nucleated RBC % (auto) 0.0 (0.0-0.2) /100WBC PT 10.7 L (10.9-12.4) SEC INR 0.9 (0.9-1.1) APTT 33.6 (26.0-36.8) SEC Sodium 142 (135-145) mmol/L Potassium 3.9 (3.3-5.1) mmol/L Chloride 108 (96-108) mmol/L Carbon Dioxide 24 (22-29) mmol/L Anion Gap 14 (12-20) BUN 9 (9-16) mg/dL Creatinine 0.69 (0.5-1.4) mg/dL Estim Creat Clear Calc 100.1 Estimated GFR > 60 Random Glucose 132 H (60-115) mg/dL Calcium 9.0 (8.4-10.2) mg/dL Total Bilirubin 0.4 (0.0-1.0) mg/dL AST 35 H (5-31) U/L ALT 27 (0-31) U/L Alkaline Phosphatase 111 (39-117) U/L Troponin I High Sens < 2.7 < 2.7 (<3.5-17.0) ng/L B-Natriuretic Peptide < 10 (<100) pg/mL Total Protein 7.4 (6.5-8.0) g/dL Albumin 4.2 (3.5-5.0) g/dL Independent Interpretation I performed an independent interpretation of an: EKG and Plain X-Ray Interpretation: My independent interpretation patient's one-view chest x-ray is as follows: No acute disease My independent interpretation patient's 12 EKG done on 03/13/2025 at 13:02 hours is as follows: Normal sinus rhythm with a rate of 82, normal AR interval, QRS duration QTC interval, inverted T-wave in lead 3 and V1, no ST segment elevation, no ST segment depression, no PACs, no PVCs. Compared to an EKG dated 12/25/2024 at 14:26 hours the inverted Q-wave in lead 3 is new, Q-wave inversion in V1 is old. Otherwise there is no significant change. Radiology Impression Discussion of test interpretation with radiology: I have reviewed the radiologist's reading. Radiologist Impression: XR chest 1V IMPRESSION: No acute disease, stable chest Electronically signed by: Dipak Castaneda MD 03/13/2025 01:52 PM EDT Prescription Management I considered prescription management with: Other Anti vertigo medication: Meclizine Chronic Conditions Patient?s care impacted by: Diabetes, Hypertension and Other (Hyperlipidemia) Discharge Plan Discharge Clinical Impression: Benign paroxysmal positional vertigo, Chest pain Patient Disposition: Home, Self-Care Instructions: Benign Paroxysmal Positional Vertigo (ED) Additional Instructions: Your blood work was unremarkable. Your EKG was normal. Your symptoms and exam are consistent with positional vertigo. Positional vertigo can come on suddenly and can last up to 2 weeks. The dizziness is made worse by moving your head or changing position and should resolve if you sit, lie down or rest for 15 minutes after the dizziness starts. Take meclizine 25 mg pills, 1 pill 3 times a day for the next 3 days for dizziness then as needed for dizziness. ?This medication will make you sleepy. ?Do not drive or work while taking this medication. Take ibuprofen 200 mg pills, 2 pills every 6 hours as needed for pain Take Tylenol (acetaminophen) 500 mg pills, 2 pills every 6 hours as needed for pain. Follow-up with your doctor in 2 days. Please return to the emergency department if your symptoms get worse or if you develop any symptoms that are concerning to you. Prescriptions: New meclizine [Dramamine Less Drowsy] 25 mg tablet 25 mg PO TID PRN (Reason: dizziness) Qty: 20 0RF No Action cholecalciferol (vitamin D3) 50 mcg (2,000 unit) capsule 50 mcg PO DAILY 30 Days Qty: 30 11RF (DME) pen needle, diabetic [Novofine 32] 32 gauge x 1/4 needle See Rx Instructions .ROUTE .COMPLEX Qty: 100 5RF Dose Instruction: USE ONCE DAILY DIRECTED Rx Instructions: USE ONCE DAILY DIRECTED atorvastatin 40 mg tablet 40 mg PO DAILY Qty: 90 1RF (DME) blood-glucose meter [FreeStyle Lite Meter] Kit See Rx Instructions .ROUTE .MEDSUPPLY Qty: 1 0RF Rx Instructions: As directed (DME) FreeStyle Lite Strips Strip See Rx Instructions .ROUTE .MEDSUPPLY Qty: 100 11RF Rx Instructions: As directed Test blood glucose 3x daily. (DME) lancets [FreeStyle Lancets] 28 gauge misc See Rx Instructions .ROUTE .MEDSUPPLY Qty: 100 3RF Rx Instructions: use daily as directed to check blood glucose lancets [TRUEplus Lancets] 33 gauge misc 1 gauge miscellaneous QID 30 Days Qty: 100 3RF pyridoxine (vitamin B6) 100 mg tablet 100 mg PO DAILY 90 Days Qty: 90 3RF albuterol sulfate 90 mcg/actuation Hfa Aerosol Inhaler 2 puff INHALATION Q4-6H PRN (Reason: Shortness Of Breath) ibuprofen 600 mg tablet 600 mg PO Q6H PRN (Reason: pain) Qty: 30 0RF acetaminophen 650 mg tablet extended release 650 mg PO Q6H PRN (Reason: Pain) budesonide-formoterol [Symbicort] 80-4.5 mcg/actuation HFA aerosol inhaler 2 puff INHALATION Q4-6H PRN (Reason: wheezing) pantoprazole 40 mg tablet,delayed release (DR/EC) 40 mg PO DAILY albuterol sulfate 2.5 mg /3 mL (0.083 %) solution for nebulization 2.5 mg inhalation TID PRN (Reason: wheezing) sennosides [Senna Laxative] 8.6 mg tablet 17.2 mg PO DAILY PRN (Reason: constipation) docusate sodium 100 mg capsule 100 mg PO BID PRN (Reason: Constipation) buspirone 10 mg tablet 10 mg PO TID vitamin A 10,000 unit capsule 1 cap PO DAILY tramadol 50 mg tablet 50 mg PO Q8H PRN (Reason: pain (scale score 1-3)) Qty: 14 0RF escitalopram oxalate 20 mg tablet 20 mg PO DAILY clonazepam 0.5 mg tablet 0.5 mg PO DAILY PRN (Reason: anxiety) metformin 500 mg tablet extended release 24 hr 500 mg PO QPM Qty: 90 3RF Ozempic 0.25 mg or 0.5 mg (2 mg/3 mL) pen injector 0.25 mg subcut QWEEK Qty: 3 3RF Rx Instructions: for 4 weeks; then increase to 0.5 mg every week (takes on Fridays) ketorolac 10 mg tablet 10 mg PO Q8H PRN (Reason: pain) 3 Days Qty: 14 0RF Interventions: ED Discharge Assessment Last Done: 03/13/25 19:25 Discharge Date/Time: 03/13/25 19:26 Print Language: Andorran
[2025-03-13 13:26] LABS: MANUAL DIFF FLAG NO
[2025-03-13 13:39] LABS: Hematocrit 36.5 % (37.0-47.0); Hemoglobin 12.2 g/dl (12.0-16.0); Imm Gran Abs Auto 0.04 X10*3/uL (0.00-0.03); Imm Gran Pct Auto 0.5 % (0.0-0.4); Lymphocytes Absolute Auto 2.5 X10*3/uL (1.2-4.9); Mean Corpuscular HGB Conc 33.4 g/dl (31.0-35.0); Mean Corpuscular Hemoglobin 27.1 pg (27.0-33.0); Mean Corpuscular Volume 80.9 fL (80.0-98.0); NRBC Abs Auto 0.000 X10*3/uL (0.0-0.012); NRBC Pct Auto 0.0 /100WBC (0.0-0.2); Platelet Count 254 X10*3/uL (160-400); Red Blood Count 4.51 X10*6/uL (4.20-5.50); White Blood Count 8.8 X10*3/uL (4.8-10.8)
[2025-03-13 13:41] LABS: INTERNATIONAL NORM RATIO 0.9 (0.9-1.1); Prothrombin Time 10.7 SEC (10.9-12.4)
[2025-03-13 13:44] LABS: Partial Thromboplastin Time 33.6 SEC (26.0-36.8)
[2025-03-13 13:51] LABS: Alanine Aminotransferase 27 U/L (0-31); Albumin Level 4.2 g/dL (3.5-5.0); Alkaline Phosphatase 111 U/L (39-117); Anion Gap 14 (12-20); Aspartate Amino Transferase 35 U/L (5-31); Blood Urea Nitrogen 9 mg/dL (9-16); Calcium 9.0 mg/dL (8.4-10.2); Carbon Dioxide 24 mmol/L (22-29); Chloride 108 mmol/L (96-108); Creatinine Clr Calc Pharmacy 100.1; Estimated Glomerular Filt Rate > 60; Potassium 3.9 mmol/L (3.3-5.1); Sodium 142 mmol/L (135-145); Total Protein 7.4 g/dL (6.5-8.0)
[2025-03-13 14:01] LABS: Troponin-I High Sensitivity < 2.7 ng/L (<3.5-17.0)
[2025-03-13 14:43] LABS: B Type Natriuretic Peptide < 10 pg/mL (<100)
[2025-03-13 17:07] LABS: Troponin-I High Sensitivity < 2.7 ng/L (<3.5-17.0)
[2025-03-13 19:25] VITALS: BP 139/94; PULSE 85; RESP 16; TEMP 37; O2SAT 99
== END 2025-03-13 19:26 | disposition home or self-care (01) ==
PROVIDERS: Physician Assistant; Emergency Provider Emergency Medicine Emergency Medical Services
DX: H81.10 Benign paroxysmal vertigo, unspecified ear (principal); R07.9 Chest pain, unspecified; E11.9 Type 2 diabetes mellitus without complications; I10 Essential (primary) hypertension; E78.5 Hyperlipidemia, unspecified; Z79.84 Long term (current) use of oral hypoglycemic drugs; Z79.02 Long term (current) use of antithrombotics/antiplatelets; Z79.899 Other long term (current) drug therapy
CPT/HCPCS: 36415; 71045; 80053; 83880; 84484; 85025; 85610; 85730; 93005; 99212; 99283; 99284

== ENCOUNTER → 2025-03-13 13:01 | Outpatient (BNV) | payer MEDICAID, SELFPAY | PROVIDERS: Emergency Provider Emergency Medicine Emergency Medical Services; Visit Provider Internal Medicine Cardiovascular Disease | DX: R42 Dizziness and giddiness (principal); R07.9 Chest pain, unspecified | CPT/HCPCS: 93010 ==

== ENCOUNTER → 2025-03-13 13:13 | Outpatient (BNV) | payer MEDICAID, SELFPAY | PROVIDERS: Visit Provider Radiology Diagnostic Radiology | DX: R07.9 Chest pain, unspecified (principal) | CPT/HCPCS: 71045 ==

== ENCOUNTER 2025-03-21 10:19 | Outpatient (AMB) | payer MEDICAID, SELFPAY ==
--- NOTE | 2025-03-21 10:29 | MHC.OFFVIS ---
Vital Signs 03/21/25 10:37 Height 5 ft Weight 190 lb BMI 37.1 BP 134/85 Blood Pressure Location Rt brachial Position Sitting Pulse 80 Intake Visit Reasons: Wound check ? infection Intake Note: Patient scheduled today's appointment concerned with excision site on Lt upper arm. Patient c/o: site tender to touch, red, oozing. Pt leaving on vacation to [place] and wants reassurance site healing well. WLE: 03-07-2025 Pay Station Attendant Required: No Pay Station Attendant Services: Pay Station Attendant Present (Ronda MENG) Accompanied by: Self / Same As Patient Allergies pineapple Allergy (Severe, Verified 03/21/25 10:36) tongue swelling diphenhydramine (From BENADRYL) Allergy (Intermediate, Verified 03/21/25 10:36) HALLUCINATIONS morphine (MORPHINE) Allergy (Intermediate, Verified 03/21/25 10:36) DIAPHORESIS; TACHYCARDIA, palpitations, sweating, tingling of hands and face quetiapine (From SEROQUEL) Allergy (Intermediate, Verified 03/21/25 10:36) PALPITATIONS seafood Allergy (Intermediate, Verified 03/21/25 10:36) redness/itching tomato Allergy (Intermediate, Verified 03/21/25 10:36) Blister trazodone (TRAZODONE) Allergy (Intermediate, Verified 03/21/25 10:36) GI Upset, HEART RACING, palpitations prednisone (PREDNISONE) Adverse Reaction (Intermediate, Verified 03/21/25 10:36) HEART RACES HPI HPI Wound check ? infection: Details: experiencing more pain in the incision site, has noted some clear liquid draining from the wound. Denies fever or chills [facility] Medical History Cardiomyopathy T2DM (type 2 diabetes mellitus) Hypertrophic scar of upper arm Epidermal inclusion cyst Nephrolithiasis Transaminitis GERD (gastroesophageal reflux disease) Anxiety Migraines Fatty liver Elevated cholesterol Asthma Vitamin D deficiency HLD (hyperlipidemia) HTN (hypertension) Diabetes mellitus Surgical History History of surgical removal of skin lesion (08/27/22) H/O lithotripsy History of local excision of skin lesion History of hysterectomy (~2011) Family History Father Heart disease Mother No problems noted. Social History Are you a primary cardiac care nurse to a significant other at home: No Do you presently have visiting nurse or other home services: No Unable to assess alcohol history related to: Unknown Alcohol intake: never Patient Tobacco Use Status: Never used Tobacco Second Hand Smoke Exposure: No Review of Systems Const All systems reviewed & are unremarkable except as noted in HPI and below Physical Exam Vital Signs: Last Vital Signs Pulse 80 03/21/25 10:37 BP 134/85 03/21/25 10:37 BMI result Body Mass Index 37.1 Const General: comfortable and no acute distress Orientation/consciousness: patient oriented x3 Resp Effort & Inspection: normal respiratory effort and able to speak in complete sentences Neuro General: patient oriented x3 Extrem Other: left upper arm incision site: there is a central area of 3 cm of erythema and induration, very tender to the touch, warm, no fluid collection Assessment & Plan Assessment & Plan (1) Cellulitis of left upper extremity: Code(s): L03.114 - Cellulitis of left upper limb Category: Medical (2) Postop check: Code(s): Z09 - Encounter for follow-up examination after completed treatment for conditions other than malignant neoplasm Category: Surgical Plan 44 year old female s/p excision of a mass in the upper left arm on 03/07. patient experiencing increased pain, small amounts of clear discharge. On exam the incision site is intact, there is a 3 cm diameter area of erythema, induration and swelling in the center of the incision with no palpable fluid collection. The area was exquisitely tender. likely a localizd cellulitis, patient is afebrile. I will prescribe her a 5 day course of keflex. Patient will be going on vacation to [place]. She can follow up as needed when she returns from her trip Medications: New cephalexin 500 mg PO TID 15 caps 0RF 5 days Coding Level of Care Code Est Pt Level 3 (28969) Diagnoses Cellulitis of left upper extremity L03.114 Postop check Z09
[2025-03-21 10:37] VITALS: BP 134/85; PULSE 80; BMI 37.1
--- OUTSIDE RECORDS SUMMARY | 2025-03-21 11:09 | XMS_ITS | Patient Health Record ---
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 Neal on 06-20-2024. [facility] Dawn 05/09/2024 07:44:46 AM EDT > eligible, needs referrral...Requested from [facility] Referral Priority Routine Medications Medication SIG [...] DAILY Oral for 30 Active Vitamin A 66672 UNIT TAKE 1 CAPSULE BY M OUTH [...] Problem Status W/U Status Risk Notes Problem 99196158 Epigastric abdom inal pain (R10.13) Active confirmed Problem 831059181 Irritable bowel syndrome with diarrhea (K58.0) Active confirmed Problem Elevated liver function tests (R79.89) Active confirmed Problem 450823564 Fatty liver (K76.0) Active confirmed Problem [id number] Gastroesophageal reflux disease, esophagitis presence not specified (K21.9) Active confirmed Problem 308666648 Abdominal pain, right upper quadrant (R10.11) Active confirmed Encounters Encounter Location Date Provider Diagnosis [facility] [address] [place] [id number] 06/16/2024 Jaylan Neal Plan Of Treatment Pending Test Test Name Order Date BUN 12/29/2019 CREATININE 12/29/2019 LIVER PROFILE 04/09/2020 LIVER PROFILE 12/29/2019 LIVER PROFILE 02/04/2020 CBC w DIFF 12/29/2019 PROTHROMBIN TIME (PT, INR) 12/29/2019 [id number] (A1A) 12/29/2019 CAROTENE 12/29/2019 CERULOPLASMIN 12/29/2019 MITOCHONDRIAL [...] Start Date Coverage End Date MED[place] OF [employer] [address] [place] [id number] HARMAN LEUNG Self - patient is the insured Medical (General) History Medical History History ICD Code Asthma Denies UT,CVA,renal disease Migraines Anxiety, depression, bipolar disease NIDDM [...]
== END 2025-03-21 10:45 | disposition home or self-care (01) ==
LOC: HO.HGS 10:20
DX: L03.114 Cellulitis of left upper limb (principal); Z09 Encounter for follow-up examination after completed treatment for conditions other than malignant neoplasm
CPT/HCPCS: 99024

== ENCOUNTER → 2025-03-21 10:19 | Outpatient (BNVA) | payer MEDICAID, SELFPAY | DX: T81.49XA Infection following a procedure, other surgical site, initial encounter (principal); L03.114 Cellulitis of left upper limb | CPT/HCPCS: 99212 ==

== ENCOUNTER 2025-05-18 09:25 | Outpatient (AMB) | payer MEDICAID, SELFPAY ==
--- OUTSIDE RECORDS SUMMARY | 2024-01-26 11:20 | XMS_ITS ---
Author Organization [facility] Address [address] [place] [address] Care Team Providers Care Welder Metal Fab Name Role Phone Radha Rodriguez Primary Care Provider Jaylan Clancy Unavailable [phone] REASON FOR VISIT Patient presents today for FATTY LIVER Encounters Encounter Location Date Provider Diagnosis [facility] [address] [place] [phone] 01/26/2024 Jaylan Neal Plan Of Treatment No Information Progress Notes * MADHU ABASDOB: 0 (44 yo F)Acc No.[id number]:01/26/2024 Progress Notes Patient: HARMAN MCKEON Provider: Geovani Neal MD :1980 A ge:43 Y S ex:Female Date:01/26/2024 Address:[address] [place], [place] [phone] Pcp:JACINTO Ramos Subjective: * Chief Complaints: * 1 . Patient presents today for FATTY LIVER. * Medical History: Objective: * Vitals: Assessment: Plan: * Treatment: * * The named appointment provid er may or may not be the originator of this progress note, and it is not deemed complete until electronically signed by the appointment provider. Sign off status: Pending * Provider: Geovani Neal MD Date: 01/26/2024 Generated for Ashlee perez/Lisa/eTransmitting on: 05/18/2025 10:20 AM EDT
--- OUTSIDE RECORDS SUMMARY | 2024-06-20 09:20 | XMS_ITS ---
Author Organization [facility] Address [address] [place] [address] Care Team Providers Care Security Sales Manager Name Role Phone Radha Rodriguez Primary Care Provider Jaylan Clancy [phone] REASON FOR VISIT FATTY LIVER Encounters Encounter Location Date Provider Diagnosis [facility] [address] [place] [address] 06/20/2024 Jaylan Neal Plan Of Treatment No Information Progress Notes * ABA LEUNGSDOB: 0 (44 yo F)Acc No.[id number]:06/20/2024 Progress Notes Patient: HARMAN MCKEON Provider: Geovani Neal MD :1980 A ge:43 Y S ex:Female Date:06/20/2024 Address:[address] [place], [place] [id number] Pcp:JACINTO Ramos Subjective: * Chief Complaints: * 1 . FATTY LIVER. * Medical History: Objective: * Vitals: Assessment: Plan: * Treatment: * * The named appointment provid er may or may not be the originator of this progress note, and it is not deemed complete until electronically signed by the appointment provider. Sign off status: Pending * Provider: Geovani Neal MD Date: 1 Generated for Ashlee perez/Lisa/eTodiliasmitting on: 0 05/18/2025 10:20 AM EDT
--- OUTSIDE RECORDS SUMMARY | 2024-06-20 09:20 | XMS_ITS ---
Author Organization [facility] Address [address] [place] [address] Care Team Providers Care Ecologist Technician Name Role Phone Radha Rodriguez Primary Care Provider Jaylan Clancy Unavailable [phone] REASON FOR VISIT Patient presents today for FATTY LIVER Encounters Encounter Location Date Provider Diagnosis [facility] [address] [place] [address] 06/20/2024 Jaylan Neal Plan Of Treatment No Information Progress Notes * MADHU JAZLYNHAYLEESDOB: 0 (44 yo F)Acc No.[id number]:06/20/2024 Progress Notes Patient: HARMAN MCKEON Provider: Geovani Neal MD :1980 A ge:43 Y S ex:Female Date:06/20/2024 Address:[address] [place], [place] [phone] Pcp:JACINTO Ramos Subjective: * Chief Complaints: * [...] 1 Generated for Ashlee perez/Lisa/eTransmitting on: 0 05/18/2025 10:20 AM EDT
--- NOTE | 2025-05-18 10:04 | MHC.OFFVIS ---
Vital Signs 05/18/25 10:08 Height 5 ft Weight 191 lb 4 oz BMI 37.3 BP 144/73 H Blood Pressure Location Lt brachial Position Sitting Pulse 79 Intake Visit Reasons: lump in breast Intake Note: Patient is seen in office for recurrent lump in the breast. Pt c/o: has a recurrent mass on the left breast, on a site that was already removed by Dr Campos, painful, no discharge * OKay to BOOK* Certified Rehabilitation Counselor Required: Yes Certified Rehabilitation Counselor Services: Certified Rehabilitation Counselor Present Certified Rehabilitation Counselor Name: Ronda MENG Information Interpreted: non-clinical & clinical Well Blower: Well Blower Present Accompanied by: Self / Same As Patient Allergies pineapple Allergy (Severe, Verified 03/21/25 10:36) tongue swelling diphenhydramine (From BENADRYL) Allergy (Intermediate, Verified 03/21/25 10:36) HALLUCINATIONS morphine (MORPHINE) Allergy (Intermediate, Verified 03/21/25 10:36) DIAPHORESIS; TACHYCARDIA, palpitations, sweating, tingling of hands and face quetiapine (From SEROQUEL) Allergy (Intermediate, Verified 03/21/25 10:36) PALPITATIONS seafood Allergy (Intermediate, Verified 03/21/25 10:36) redness/itching tomato Allergy (Intermediate, Verified 03/21/25 10:36) Blister trazodone (TRAZODONE) Allergy (Intermediate, Verified 03/21/25 10:36) GI Upset, HEART RACING, palpitations prednisone (PREDNISONE) Adverse Reaction (Intermediate, Verified 03/21/25 10:36) HEART RACES Medication List - Last Reconciled 05/18/25 by Lionel Cintron MD acetaminophen ER 650 mg PO Q6H PRN albuterol sulfate 90 mcg/actuation 2 puffs inhalation Q4-6H PRN albuterol sulfate 2.5 mg inhalation TID PRN atorvastatin 40 mg PO DAILY blood sugar diagnostic (FreeStyle Lite Strips) As directed Test blood glucose 3x daily. blood-glucose meter (FreeStyle Lite Meter kit) As directed budesonide-formoterol 80-4.5 mcg/actuation (Symbicort) 2 puffs inhalation Q4-6H PRN buspirone 10 mg PO TID cephalexin 500 mg PO TID 5 days cholecalciferol (vitamin D3) 50 mcg PO DAILY 30 days clonazepam 0.5 mg PO DAILY PRN docusate sodium 100 mg PO BID PRN escitalopram oxalate 20 mg PO DAILY ibuprofen 600 mg PO Q6H PRN ketorolac 10 mg PO Q8H PRN 3 days lancets (FreeStyle Lancets) use daily as directed to check blood glucose lancets (TRUEplus Lancets) 1 gauge miscellaneous QID 30 days meclizine (Dramamine Less Drowsy) 25 mg PO TID PRN metformin ER 500 mg PO QPM pantoprazole 40 mg PO DAILY pen needle, diabetic (Novofine 32) USE ONCE DAILY DIRECTED pyridoxine (vitamin B6) 100 mg PO DAILY 90 days semaglutide (Ozempic) 0.25 mg (0.368 mL) subcut QWEEK sennosides (Senna Laxative) 17.2 mg PO DAILY PRN tramadol 50 mg PO Q8H PRN vitamin A 1 cap PO DAILY HPI Comments Details: 44-year-old female patient returning for a new lump located in the left breast at the lower outer quadrant. She previously underwent an excision at this site of a palpable mass by Dr. Campos on 06/07/2024. This revealed collagenous fibroma of the skin left lateral breast. She was well until visiting [place] when she noticed a new lump in the same location. She denies any bleeding or discharge from the site. The site is painful to palpation. She is requesting excision of this new lesion. [facility] Medical History Cardiomyopathy T2DM (type 2 diabetes mellitus) Hypertrophic scar of upper arm Epidermal inclusion cyst Nephrolithiasis Transaminitis GERD (gastroesophageal reflux disease) Anxiety Migraines Fatty liver Elevated cholesterol Asthma Vitamin D deficiency HLD (hyperlipidemia) HTN (hypertension) Diabetes mellitus Surgical History History of surgical removal of skin lesion (08/27/22) H/O lithotripsy History of local excision of skin lesion History of hysterectomy (~2011) Family History Father Heart disease Mother No problems noted. Social History Are you a primary manager of care to a significant other at home: No Do you presently have visiting nurse or other home services: No Alcohol intake: never Patient Tobacco Use Status: Never used Tobacco Second Hand Smoke Exposure: No Review of Systems Const All systems reviewed & are unremarkable except as noted in HPI and below Physical Exam Const General: no acute distress Nutritional Appearance: obese Orientation/consciousness: patient oriented x3 Limitations: no limitations HEENT Head: Yes normocephalic and Yes atraumatic Ears: hearing grossly normal bilaterally Chest Other: Left breast: Skin change noted in the lower outer quadrant suggestive of a keloid or hypertrophic scar with an underlying nodule within the scar. No redness or discharge is appreciated, no nipple retraction, no nipple discharge, no palpable mass, no enlarged lymph nodes. Right breast: No skin change, no nipple retraction, no nipple discharge, no palpable mass, no enlarged lymph nodes Chest/axillae images:  1. Site of skin lesion and underlying nodule. Lesion measures approximately 3 cm x 2 cm. Resp Effort & Inspection: normal respiratory effort, no audible wheezes, no cough and no respiratory distress Skin Other: Warm, dry, no rash. Other scars on abdominal wall and extremities are without evidence of keloid Neuro General: patient oriented x3 Extrem General: Yes no clubbing, cyanosis or edema Assessment & Plan Assessment & Plan (1) Left breast mass: Code(s): N63.20 - Unspecified lump in the left breast, unspecified quadrant Category: Medical Qualifiers: Breast mass location: lower outer quadrant Qualified Code(s): N63.23 - Unspecified lump in the left breast, lower outer quadrant Plan 44-year-old female patient returning with a recurrent lump in the left lower outer quadrant breast which is now hard and appears to be increasing in size. On examination there is a 3 x 2 cm area of skin thickening with an underlying nodule. The patient is concerned about this new lump in his requested excision. After discussion of the procedure, risks, and alternatives, she consents to a left breast lumpectomy. This will be scheduled as a short-stay surgery. Coding Level of Care Code Est Pt Level 4 (55736) Diagnoses Mass of lower outer quadrant of left breast N63.23 Breast mass location: lower outer quadrant
[2025-05-18 10:08] VITALS: BP 144/73; PULSE 79; BMI 37.3
--- OUTSIDE RECORDS SUMMARY | 2025-05-18 10:19 | XMS_ITS | Clinical Summary ---
Author Organization [employer] Address [address] [place] [address] Care Team Providers Care Special Duty Nurse Name Role Phone Colby Hirsch RUNNER WORKER Unavailable Unavailable [facility] RUNNER WORKER Primary Care Provider [phone] Allergies Active Allergy Reactions Criticality Noted Date [...] route 3 times every day prn wheezing/dyspnea 021 Active albuterol 108 (90 Base) MCG/ACT inhaler inhale 2 puff by inhalation route every 4 - 6 hours as needed prn wheezing/dyspnea 022 Active SUMAtriptan (Imitrex) 50 MG tablet Take 1 tablet by mouth. 022 Active Misc. Devices (Pulse Oximeter For Finger) misc -Check pulse and oxygen daily and prn 022 Active fluticasone (Flonase) 50 MCG/ACT nasal spray USE 1-2 SPRAYS IN EACH NOSTRIL IN THE MORNING SHAKE GENTLY 48 g 023 Active Novofine Pen Needle 32G X 6 MM misc USE ONCE DAILY DIRECTED 023 Active Lancets (Unilet Micro-Thin 33G) misc USE FOUR TIMES DAILY TO TEST BLOOD SUGAR 023 Active cetirizine (ZyrTEC) 10 MG tablet TAKE 1 TABLET BY MOUTH EVERY MORNING 90 tablet 1 023 Active Diclofenac Sodium 1 % gelIndications:P ain of left thumb Apply once a day on the affected hand 100 g 1 024 Active metFORMIN XR (Glucophage-XR) 500 MG 24 hr tabletIndication s:Type 2 diabetes mellitus without complication, with long-term current use of insulin ([facility]) TAKE 1 TABLET BY MOUTH EVERY DAY WITH DINNER 90 tablet 1 024 Active glucose blood test stripIndications :Type 2 diabetes mellitus without complication, with long-term current use of insulin ([facility]) 1 each by Other route 2 times daily. 100 each 12 024 Active mirtazapine (Remeron) 7.5 MG tabletIndication s:Major depression with psychotic features ([facility]) Take 1 tablet (7.5 mg) by mouth at bedtime. 30 tablet 1 024 Active risperiDONE (RisperDAL) 2 MG tabletIndication s:Major Depressive Disorder Take 1 tablet (2 mg) by mouth at bedtime. 30 tablet 1 024 Active Blood Glucose Monitoring Suppl (FreeStyle Lite) w/Device kitIndications:T ype 2 diabetes mellitus without complication, with long-term current use of insulin ([facility]) 1 Device 2 times daily. 1 kit 024 Active Alcohol Swabs (Alcohol Prep) 70 % pads USE 1 FOUR TIMES DAILY DIRECTED 200 each 11 025 Active omeprazole (PriLOSEC) [address] capsule TAKE 1 CAPSULE BY MOUTH EVERY MORNING BEFORE BREAKFAST. DO NOT BREAK, CRUSH, DISSOLVE OR CHEW. 90 capsule 3 025 Active oxymetazoline (Afrin Nasal [place]) 0.05 % nasal sprayIndications :Viral upper respiratory illness Administer 2 sprays into each nostril every 12 (twelve) hours if needed for congestion for up to 2 days. Do not use for more than 3 days. 30 mL 025 Active beta carotene (vitamin A) 3 MG (57853 UT) capsule TAKE 1 CAPSULE BY MOUTH EVERY MORNING 90 capsule 1 025 Active cyanocobalamin (Vitamin B-12) 1000 MCG tabletIndication s:Other polyneuropathy TAKE 1 TABLET BY MOUTH EVERY DAY 90 tablet 025 Active naloxone (Narcan) 4 mg/0.1 mL nasal sprayIndications :Chronic midline back pain, unspecified back location FOR SUSPECTED OPIOID OVERDOSE. SPRAY 0.1mL IN ONE NOSTRIL. REPEAT IN ALTERNATE NOSTRIL 2-3 MINUTES IF NEEDED. SEEK MEDICAL ATTENTION IMMEDIATELY EVEN IF PATIENT RESPONDS. 2 each 2 025 Active clonazePAM (KlonoPIN) 0.5 MG tablet Take 1 tablet by mouth if needed in the morning and at bedtime for anxiety. 025 Active escitalopram (Lexapro) 10 MG tablet Take 1 tablet by mouth Once per day. 025 Active Ozempic, 0.25 or 0.5 MG/DOSE, 2 MG/3ML solution pen-injector INJECT 0.25 MG SUBCUTANESOULY ONCE A WEEK FOR 4 WEEKS, THEN INCREASE TO 0.5 MG SUBCUTANESOULY EVERY WEEK THEREAFTER 025 Active atorvastatin (Lipitor) 40 MG tabletIndication s:Type 2 diabetes mellitus without complication, with long-term current use of insulin ([facility]) Take 1 tablet (40 mg) by mouth in the morning. 90 tablet 3 025 2025 Active cholecalciferol (Vitamin D-3) 10 MCG (400 UNIT) tablet TAKE 2 TABLETS BY MOUTH EVERY DAY 180 tablet 1 025 Active budesonide-formo terol (Symbicort) 80-4.5 MCG/ACT inhalerIndicatio ns:Mild intermittent asthma without complication INHALE 2 PUFFS BY MOUTH EVERY 4 TO 6 HOURS NEEDED FOR WHEEZING OR SHORTNESS OF BREATH NO MORE THAN 12 PUFFS PER DAY RINSE MOUTH AFTER USING. 10.2 g 11 025 Active acetaminophen (Tylenol 8 Hour) 650 MG ER tabletIndication s:Sore throat,Stuffy and runny nose,Malaise,Hea dache, unspecified headache type Take 1 tablet (650 mg) by mouth every 8 (eight) hours if needed for mild pain. 60 tablet 1 025 Active traMADol (Ultram) 50 MG tabletIndication s:Multiple joint pain Take 1 tablet (50 mg) by mouth every 12 (twelve) hours if needed for severe pain for up to 28 days. Do not start before May 18, 2025. 56 tablet 025 2024 Active acetaminophen (Tylenol 8 Hour) 650 MG ER tabletIndication s:Arthralgia, unspecified joint TAKE 1 TABLET BY MOUTH EVERY 6 HOURS NEEDED 60 tablet 1 025 2024 Discontinued(R eorder (will not trigger notification to Pharmacy)) traMADol (Ultram) 50 MG tabletIndication s:Multiple joint pain Take 1 tablet (50 mg) by mouth every 12 (twelve) hours if needed for severe pain for up to 28 days. Do not start before April 20, 2025. 56 tablet 025 2024 Discontinued(R eorder (will not trigger notification to Pharmacy)) Active Problems Problem Noted Date Diagnosed Date Costochondritis 03/06/2025 Assessment & Plan (03/06/2025 4:03 PM EDT): I will place to rest and apply warm compresses on affected area I will prescribe ibuprofen to be taken as needed but she cannot take it today because tomorrow she has procedure of removal of a scar, or I advised once the procedure is done and she is back to her baseline that she may take some ibuprofen for the costochondritis Dizziness 03/06/2025 Assessment & Plan (03/06/2025 4:04 PM EDT): Likely due to dehydration due to heat, I advised to drink plenty of fluids fluids to try to stay cool I prescribed some meclizine for symptomatic dizziness if needed ED precautions were reviewed with patient Long-term current use of opiate analgesic 2024 Asthma 03/16/2024 Assessment & Plan (09/25/2024 6:34 PM EST): Encouraged ongoing use of inhalers Referral to pulmonary for sob despite no adventitious breath sounds Venous insufficiency (chronic) (peripheral) 02/21 Night terror 04/05/2023 Assessment & Plan (04/05/2023 [...] mechanism to manage sxs, provided her with [facility] Crisis number for after hrs [...] skills discussed in session. She will contact [facility] crisis number as needed. Patient [...] Medication Management c. Continue with coping mechanisms Food insecurity 07/14/2022 Essential hypertension 06/03/2022 Assessment [...] Denies palpitations in clinic. Referral to cardiology. Chronic abdominal pain 06/27/2018 Assessment & Plan [...] 4.1 3.7 Chloride 96 - 108 mmol/L 109 High 104 105 107 106 106 Carbon Dioxide 22 - 29 mmol/L 24 24 27 24 23 25 Anion Gap 12 - 20 14 14 14 13 13 15 Urea Nitrogen (BUN) 9 - 16 mg/dL 8 Low 8 Low 10 9 9 7 R Creatinine 0.5 - 1.4 mg/dL 0.74 0.81 0.78 0.80 0.78 0.74 Estimated Glomerular Filt Rate >60 >60 CM >60 CM >60 CM >60 CM >60 CM Comment: NOTE: For -[place] individuals, multiply the result by 1.210.Chronic Kidney Disease: Estimated GFR < 60 mL/min/1.84m7Zcjezn Kidney Disease: Estimated GFR < 15 mL/min/1.73m2 Glucose 60 - 115 mg/dL 118 High 218 High 97 120 High 100 Calcium 8.4 - 10.2 mg/dL 9.7 9.5 10.3 High 9.7 9.6 9.4 Bilirubin, Total 0.0 - 1.0 mg/dL 0.5 0.4 0.5 0.5 0.4 Aspartate Amino Transferase 5 - 31 U/L 36 High 65 High 57 High 52 High 46 High Alanine Aminotransferase 0 - 31 U/L 34 High 73 High 63 High 55 High 50 High 40 High R Total Protein 6.5 - 8.0 g/dL 7.9 7.4 8.2 High 8.0 7.9 Albumin Level 3.5 - 5.0 g/dL 4.0 4.1 4.7 4.6 4.5 Alkaline Phosphatase 39 - 117 U/L 118 High 115 102 95 105 Transaminases trending downward. [...] 4.1 3.7 Chloride 96 - 108 mmol/L 109 High 104 105 107 106 106 Carbon Dioxide 22 - 29 mmol/L 24 24 27 24 23 25 Anion Gap 12 - 20 14 14 14 13 13 15 Urea Nitrogen (BUN) 9 - 16 mg/dL 8 Low 8 Low 10 9 9 7 R Creatinine 0.5 - 1.4 mg/dL 0.74 0.81 0.78 0.80 0.78 0.74 Estimated Glomerular Filt Rate >60 >60 CM >60 CM >60 CM >60 CM >60 CM Comment: NOTE: For -[place] individuals, multiply the result by 1.210.Chronic Kidney Disease: Estimated GFR < 60 mL/min/1.48o1Sgbwam Kidney Disease: Estimated GFR < 15 mL/min/1.73m2 Glucose 60 - 115 mg/dL 118 High 218 High 97 120 High 100 Calcium 8.4 - 10.2 mg/dL 9.7 9.5 10.3 High 9.7 9.6 9.4 Bilirubin, Total 0.0 - 1.0 mg/dL 0.5 0.4 0.5 0.5 0.4 Aspartate Amino Transferase 5 - 31 U/L 36 High 65 High 57 High 52 High 46 High Alanine Aminotransferase 0 - 31 U/L 34 High 73 High 63 High 55 High 50 High Elevated transaminase levels seem to be trending downward. Going to order a hepatitis panel. Will order hepatic function panel at next visit to continue to monitor. Migraines 06/22/2016 Resolved Problems Problem Noted Date Diagnosed Date Resolved Date Chronic tonsillitis 02/13/2025 02/28/20 25 Viral upper respiratory tract infection 02/13/2025 02/27/2025 Left wrist pain 12/07/2024 02/27/2025 Assessment & Plan (12/07/2024 2:50 PM EDT): Diffuse pain and some episodes of tingling to left wrist >1 month. -ordered left wrist XR. -given brace. -recommended follow-up with PCP PRNAbbey Ahumada 12/07/24 2:50 PM XR/XR wrist LT min 3V IMPRESSION: Normal left wrist. Injury of left wrist 12/07/2024 025 Cellulitis of face 09/26/2024 Assessment & Plan (09/26/2024 5:22 PM EST): Symptoms likely due to stye but cannot rule out early cellulitis given redness and tenderness in fat pad. Will prescribe cephalexin tid for 7 days started 09/25/24. Continue warm compress. Strict ER precautions discussed. Chest pain, atypical 09/25/2024 025 Assessment & Plan (09/25/2024 6:36 PM EST): Pt reports comprehensive cardiac work up for these symptoms, denies any increase or change since that work up Does endorse chest burning which may be attributed to asthma vs gerd Add famotidine bid Return to clinic for worsening symptoms Pt aware that if chest pain acutely worsens to call 911 Sleep apnea 09/25/2024 02/27/2025 Shortness of breath 09/25/2024 02/28/20 25 Microscopic hematuria 05/24/20242024 Assessment & Plan (05/24/2024 2:25 PM EDT): 3-5 RBC and 5-10 WBC, likely due to yeast infection -will reordering UA 05/24/24 Urinary tract infection symptoms 05/19/2024 02/27/2025 Vaginal itching 05/19/2024 02/27/2025 Assessment & Plan (05/19/2024 2:08 PM EDT): UA showed moderate blood and some nitrites. -Wet prep with NAPOLEON significant for hyphae and budding yeast. -Candidiasis prevention discussed. -Will treat with clotrimazole cream. Candidiasis 05/19/2024 02/27/2025 Assessment & Plan (05/19/2024 2:45 PM EDT): -Wet prep with NAPOLEON significant for hyphae and budding yeast. -Candidiasis prevention discussed. RUQ pain 05/09/2024 02/27/2025 Assessment & Plan (05/09/2024 3:29 PM EDT): Had CT ABD done 11/2023 that showed diffuse fatty change, no opaque gallstones. Otherwise normal. 05/09/24 pt reports x1 month of RUQ pain, nausea in the mornings and diarrhea every time she eats. -ordered abdominal US and labs 05/09/24 -discussed ER precautions. Back pain 03/16/2024 02/27/2025 Fatty liver 03/16/2024 02/27/2025 Left ovarian cyst 03/16/2024 02/27/2025 Obesity 03/16/2024 02/27/2025 Opioid dependence 03/16/2024 02/27/2025 Urinary frequency 03/16/2024 02/27/2025 Hearing loss of right ear 03/03/2024 Assessment & Plan (03/03/2024 2:11 PM EDT): Reduced hearing right ear, no trigger or constitutional symptoms. Exam reassuring, referral to ENT. Elevated blood pressure reading 03/03/2024 02/27/2025 Assessment & Plan (03/03/2024 2:12 PM EDT): Pt has home bp cuff, reports holding meds before todays visit at surgeons recommendation. Monitor for symptoms. Resume meds as soon as is cleared to. 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 Ddx: nexplanon part remaining, Sent to general surgery. COVID-19 07/14/2022 02/27/2025 Diarrhea 07/14/2022 04/13/2023 Dysuria 07/14/2022 04/13/2023 Fatty stool 07/14/2022 02/27/2025 Insomnia 01/30/2019 02/27/2025 Depression with anxiety 01/05/2019 07/0 03/2025 Assessment & Plan (01/15/2023 3:00 PM EDT): Assessment: Patient with anxiety, (difficult to control worry, nervousness) and panick attacks (periods of shaking, chest pain, and uncontrollable crying) in the context of biopsychosocial stressors of lack of transportation and access to care. Patient will benefit from OP therapy and psychiatry in person with a female clinician in [place]. At this time [facility] meets criteria for Visit Diagnoses: Anxiety [...] therapy Varicose veins of lower extremity 11/03/2018 02/27/2025 History of right oophorectomy 06/22/2016 02/27/2025 History of total hysterectomy 06/22/2016 02/27/2025 Mood disorder 06/22/2016 02/27/2025 Assessment & Plan (03/07/2024 11:20 AM EDT): [...] is now referred to new [facility] psychiatric provider. Pt is aware that appts will be via televisit and that provider will not be an [facility] employee. She gives permission to share [...] night at bedtime (not prn). Based on FACILITIES ENGINEER notes, she appears to be taking Clonazepam [...] with the plan. Multiple joint pain 06/22/2016 02/28/20 Assessment & Plan (05/03/2023 1:30 PM EDT): Request to have refill lidoderm path px before for back pain -refill today Encounters Date Type Department Care Team Description 05/16/[address] [facility]INE [address] [place] [address] [facility] telephone call 05/14/[address] [facility] [address] [place] [phone] [facility] Multiple joint pain 05/07/2025 2:40 PM EDT Office Visit [facility] [address] [place] [phone] Name, MD Tony Sore throat (Primary Dx); Stuffy and runny nose; Malaise; Headache, unspecified headache type 05/07/2025 Travel 04/30/2025 1:00 PM EDT Clinical Support [facility] [address] [place] [phone] Kira Bansal, RN Long-term current use of opiate analgesic (Primary Dx) 04/30/[address] [facility] [address] [place] [phone] Kira Bansal, RN BPI Scoring 04/30/2025 Travel 04/18/[address] [facility] [address] [place] [phone] [facility] Arthralgia, unspecified joint 04/16/[address] [facility] [address] [place] [phone] Yecenia Frias, RUNNER WORKER Multiple joint pain 04/16/[address] [facility] [address] [place] [address] Yecenia Frias, RUNNER WORKER Multiple joint pain 03/19/[address] [facility] [address] [place], [place] [phone] Yecenia Frias, RUNNER WORKER Multiple joint pain 03/19/[address] [facility] [address] [place] [address] Yecenia Frias, RUNNER WORKER Multiple joint pain 03/13/2025 Orders Only GENERIC EXTERNAL DATA DEPARTMENT Provider, Generic External Data 03/12/[address] [facility] [address] [place] [address] Yecenia Frias, RUNNER WORKER Mild intermittent asthma without complication 03/12/[address] [facility] [address] [place] [phone] Radha Shah FNP 03/09/[address] [facility] [address] [place] [phone] Eloisa Aragon NP 03/07/2025 Orders Only GENERIC EXTERNAL DATA DEPARTMENT Provider, Generic External Data 03/06/2025 1:40 PM EDT Office Visit [facility] [address] [place] [phone] Bethany Bond MD Costochondritis; Dizziness; Type 2 diabetes mellitus without complication, with long-term current use of insulin ([facility]) 03/06/[address] [facility] [address] [place] [phone] Yecenia Frias, RUNNER WORKER Stable Lab Letter 03/06/2025 Travel 03/05/2025 Results Follow-Up [facility] [address] [place] [phone] Yecenia Frias, RUNNER WORKER Albumin, Random Urine W/Creatinine 03/02/[address] [facility] [address] [place] [address] Yecenia Frias, RUNNER WORKER Arthralgia, unspecified joint 02/26/2025 10:30 AM EDT Office Visit [facility] [address] [place] [address] Yecenia Frias FNP Type 2 diabetes mellitus without complication, with long-term current use of insulin ([facility]) (Primary Dx); Essential hypertension; Encounter for screening for malignant neoplasm of colon; Encounter for immunization 02/26/2025 Travel 02/23/2025 Refill [facility] [address] [place] [address] [place] FNP Multiple joint pain 02/22/[address] [facility] [address] [place] [address] [place] F[place] chart prep 02/21/2025 Orders Only GENERIC EXTERNAL DATA DEPARTMENT Provider, Generic External Data 02/16/2025 Patient Outreach [facility] [address] [place] [address] Yecenia Frias FNP Pre-visit Planning (SDOH was already complete) from Last 3 Months Immunizations Immunization Administration Dates Next Due Hep A, Adult 10/11/2008 Hep B, adult 05/21/2008,09/22/2007,06/29/2007 Influenza, Split (incl. manuel fied surface antigen) 08/25/2013 Pfizer Covid-19 Vaccine 12+ 05/05/2021, Pfizer Covid-19 Vaccine 12+ Bivalent 10/08/2022 Pneumococcal Conjugate PCV 20 02/26/2025 Pneumococcal Polysaccharide PPSV23 06/29/2007 TD (adult), 2 [...] Date Recorded Patient Health Questionnaire-9 Score 0 02/26/2025 Patient Health Questionnaire-9 Score 0 02/26/2025 Last PHQ-9: Questionnaire Data Not on file 0 02/26/2025 Housing Stability Answer Date Recorded What is your housing situation today? I have dell rodriguez 01/12/[address] you li ve. Do you have problems with any of the following? None of the above 01/12/2025 Food Insecurity Answer Date Recorded Within the past 12 months, y ou worried that your food would run out before you got money to buy more: Never True 01/12/2025 Within the past 12 months,th e food you bought just didn't last and you didn't have enough money to get more: Never True Transportation Answer Date Recorded In the past [...] Date Recorded Patient Health Questionnaire-2 Score 0 02/26/2025 Internet Access Answer Date Recorded Internet Access [...] Sign Reading Time Taken Comments Blood Pressure 126/83 05/07/2025 2:51 PM EDT Pulse 87 05/07/2025 2:51 PM EDT Temperature 36.7 C (98.1 F) 05/07/2025 2:51 PM EDT Respiratory Rate 14 05/07/2025 2:51 PM EDT Oxygen Saturation 98% 05/07/2025 2:51 PM EDT Inhaled Oxygen Concentration - - Weight 88.1 kg (194 lb 3.2 oz) 05/07/2025 2:51 P M EDT Height 152.4 cm (5') 05/07/2025 2:51 PM EDT Body Mass Index 37.93 05/07/2025 2:51 PM EDT Plan of Treatment Upcoming Encounters Date Type Department Care Team (Late st Contact Info) Description 05/22/2025 12:00 PM EDT Office Visit [address] [phone] Cheryl Galan DO [address] [place] [address] 08/01/2025 2:00 PM EST Clinical Support [address] [address] Kira Bansal, MEREDITH Health Maintenance Due Date Last Done Comments CT Colonography 1979 Colonoscopy 1979 Colorectal Cancer Screening 1979 Dental X-Ray: Bitewings 1979 FIT DNA/Cologuard 1979 FIT 1979 FOBT 1979 Sigmoidoscopy 1979 Disability Screening 1979 Alcohol/Substance Use Screening 1991 Family Planning (PISQ) 12/04/1994 HPV Vaccines (1 - 3-dose series) 12/04/1994 Dental Prophylaxis 12/06/2008 06/06/2008 Hepatitis A Vaccines (2 of 2 - Risk 2-dose series) 04/10/2009 10/11/2008 Dental X-Ray: Full Mouth 03/30/2018 03/29/2015 Dental Oral Exam 11/23/2020 05/24/2020 Diabetes: Hemoglobin A1C 04/03/2025 025, 10/23/2024, 07/24/2024, Additional history exists COVID-19 Vaccine ( season) 2025 10/08/2022, 05/05/2021, 04/08/2021 Influenza Vaccine (#1) 2025 08/25/2013 Lipid Panel 09/25/2025 09/25/2024, 04/24, 03/06/2024, Additional history exists Diabetes: Foot Exam 10/23/2025 10/23/2024, 10/23/2024, 10/23/2024, Additional history exists Mammogram 11/15/2025 11/16/2023 SDOH Screening 01/12/2026 01/12/2025 Depression Screening 02/26/2026 02/26/2025, 02/27/20 25 Diabetes: Urine Protein Screening 02/26/2026 02/26/2025, 02/07/2024, 09/15/2022, Additional history exists Tobacco Screening 02/27/2026 02/27/2025 Eye Exam 09/14/2026 09/14/2024, 08/24, 09/14/2024, Additional history exists Zoster Vaccines (1 of 2) 12/04/2029 DTaP/Tdap/Td Vaccines (4 - Td or Tdap) 10/23/2034 10/23/2024, 08/25/2013, 02/11/2007, Additional history exists RSV Patients and Patients Aged 60 years or older (1 - 1-dose 75+ series) 12/04/2054 Hepatitis B Vaccines Completed 05/21/2008, 09/22/2007, 06/29/2007 Hepatitis C Screening Completed 02/22/2023, 022 HIV Screening Completed 10/23/2024 Pneumococcal Vaccine: Pediatrics (0 to 5 Years) and At-Risk Patients (6 to 49) Years Completed 02/26/2025, 06/29/2007 HIB Vaccines Aged Out No longer eligi [...] Name Priority Date/Time Associated Diagnosis Comments POCT INFLUENZA B (ID NOW RAPID MOLECULAR) Routine 05/07/2025 2:59 PM EDT Sore throat POCT INFLUENZA A (ID NOW RAPID MOLECULAR) Routine 05/07/2025 2:59 PM EDT Sore throat POCT RAPID COVID ANTIGEN Routine 05/07/2025 2:58 PM EDT Sore throat POC BALL ID NOW STREP A Routine 05/07/2025 2:57 PM EDT Sore throat POCT CASSI-14 URINE DRUG SCREEN Routine 04/30/2025 12:21 PM EDT Long-term current use of opiate analgesic HIGH SENSITIVITY TROPONIN I Routine 03/13/2025 4:31 PM EDT GROSS AND MICROSCOPIC LEVEL 3 Routine 03/07/2025 1:00 PM EDT GLUCOSE, WHOLE BLOOD Routine 03/07/2025 11:13 AM EDT POCT GLUCOSE Routine 03/06/2025 11:58 AM EDT Type 2 diabetes mellitus without complication, with long-term current use of insulin ([facility]) ALBUMIN, RANDOM URINE W/CREATININE Routine 02/26/2025 11:31 AM EDT Type 2 diabetes mellitus without complication, with long-term current use of insulin (CMS/HCC) URINALYSIS, COMPLETE Routine 02/21/2025 11:11 AM EDT CULTURE, URINE, ROUTINE Routine 02/21/2025 11:11 AM EDT HEMOGLOBIN A1C Routine 01/01/2025 2:03 PM EDT HIV 1/2 ANTIGEN/ANTIBODY, FOURTH GENERATION W/RFL Routine 10/23/2024 2:05 PM EST Other polyneuropathy LIPID PANEL, STANDARD Routine 09/25/2024 1:22 PM EST BI MAMMOGRAM SCREENING TOMOSYNTHESIS BILATERAL Routine 11/16/2023 [...] POCT Rapid Influenza B BALL ID NOW (05/07/2025 2:59 PM EDT) Pathologist [facility] Influenza B Negative Negative, Indeterminate [facility] QC Media Lot # [id number] [facility] Lot# Expiration Date [facility] Swab 05/07/2025 2:59 PM EDT us Tony Haywood MD POINT OF CARE TEST ENTER/EDIT OR DERABLES Final Result Performing Organization Address [facility]/ZIP Co de Phone Number [facility] [address] [place] [phone] * POCT Rapid Influenza A BALL ID NOW (05/07/2025 2:59 PM EDT) Pathologist [facility] Influenza A Negative Negative, Indeterminate [facility] QC Media Lot # [id number] [facility] Lot# Expiration Date [facility] Swab 05/07/2025 2:59 PM EDT us Tony Haywood MD POINT OF CARE TEST ENTER/EDIT OR DERABLES Final Result Performing Organization Address [facility]/ZIP Co de Phone Number [facility] [address] [place] [address] [phone] * POCT Rapid Covid-19 BinaxNOW (05/07/2025 2:58 PM EDT) Pathologist [facility] Rapid COVID Ag Negative QC Media Lot # [id number] Lot# Expiration Date [id number] Swab 05/07/2025 2:58 PM EDT Tony Name POINT OF CARE TEST ENTER/EDIT OR DERABLES Final Result * POCT Rapid Strep A BALL ID NOW (05/07/2025 2:57 PM EDT) [facility] Rapid Strep A Screen Negative Negative, None Detected QC Media Lot # [id number] Lot# Expiration Date Swab 05/07/2025 2:57 PM EDT Tony Name POINT OF CARE TEST ENTER/EDIT OR DERABLES Final Result * POCT CASSI-14 Urine Drug Screen (04/30/2025 12:21 PM EDT) [facility] THC Negative Negative Cocaine Screen, Urine Negative Negative Opiate Screen, Urine Negative Negative Methamphetamine Screen Urine Negative Negative Amphetamine Screen, Urine Negative Negative Benzodiazepines Screen, Urine Negative Negative Barbiturate Screen, Urine Negative Negative Methadone Screen, Urine Negative Negative Buprenophine Screen, Urine Negative Negative TCA, Urine Negative Negative MDMA Urine Negative Negative ng/mL Oxycodone Screen, Urine Negative Negative Phencyclidine (PCP), Urine Negative Negative Propoxyphene, Urine Negative Negative Fentanyl, Urine Negative Negative Urine Urine specimen obtained by clean catch procedure / Unknown 04/30/2025 12:21 PM EDT Kira Alford RN - 04/30/2025 12:21 PM EDT UTOX cup Lot#[id number] Exp. 05/29/26 Internal Pass Control [facility] RUNNER WORKER POINT OF CARE TEST ENTER/EDIT ORDERABLES Final Result * High Sensitivity Troponin I (03/13/2025 4:31 PM EDT) [facility] TROPONIN I HIGH SENSITIVITY <2.7 <3.5 - 17.0 ng/L [facility] Comment:The Ball high sens itivity Troponin-I results should beused in conjunction with other diagnostic information suchas ECG, clinical observations and information, and patientsymptoms to aid in the diagnosis of NE. 03/13/2025 4:31 PM EDT 03/13/2025 4:36 PM EDT us Generic External Data Provider LAB BLOOD ORDERAB LES Final Result [facility] [address] [place] [address] [phone] * Gross and Microscopic Level 3 (03/07/2025 1:00 PM EDT) 03/07/2025 1:00 PM EDT 03/07/2025 1:17 PM EDT Narrative [facility] - 03/08/2025 1:17 PM EDT ----- ------- Name: Sacha Contreras Age/Sex: 44/F : 1980 Unit#: [id number] Attend Dr: Lionel Cintron MD Re03/07/25 Status: [facility] Location: [facility] Disch: ----- ------- SPEC : [id number] RECD: 03/07/25 STATUS: LEELEE NAVA NUM: [id number] MT: 03/07/25-[address]: Lionel Cintron MD ENTERED: 03/07/25 SP TYPE: Surgical OTHR DR: [facility] ORDERED: Gross Micro L3 Diagnosis Soft tissue, left upper arm, excision: - Hypertrophic scar. - Prominent subcutaneous adipose tissue, consistent with lipoma. Clinical History Pre-Op Dx: Left upper arm lesion Post-Op Dx: Left upper arm mass Microscopic Description Microscopic sections reviewed. Material Received Left upper arm mass Gross Description Received in formalin labeled left upper arm mass is a 3.5 x 2.0 x 0.45 cm partially fragmented, multilobular portion of calixto-yellow adipose tissue. The margins are inked and the specimen is serially sectioned to reveal homogeneous calixto-yellow lobular fat. No fleshy, hemorrhagic or necrotic foci are identified. Also received is a 3.8 x 1.3 cm ellipse of wrinkled skin and subcutaneous tissue excised to a maximum depth of 0.45 cm. The skin surface is wrinkled and somewhat edematous. The margins are inked and the specimen is serially sectioned to reveal homogeneous guzman-white fibrous dermal tissue and unremarkable subcutaneous fat. Assembler Equipment sections are submitted in cassettes A1 and A2. [facility] IHC S/NG Disclaimer NOTE: Unless otherwise stated, all tissue is formalin-fixed and paraffin-embedded. Some or all of the immunohistochemical tests reported herein may have been developed and their performance characteristics determined by [facility]. They have not been cleared or approved by the U.S. Food and Drug Administration (FDA). However, the FDA has determined that such clearance or approval is not necessary. This laboratory is certified under the Clinical Laboratory Improvement Amendments of 1988 (CLIA) as qualified to perform high complexity clinical laboratory testing. CONTINUED ON NEXT PAGE ----- ------- Name: Sacha Contreras Age/Sex: 44/F : 1980 Unit#: [id number] Attend Dr: Lionel Cintron MD Re03/07/25 Status: [facility] Location: [facility] Disch: ----- ------- SPEC : [id number] RECD: 03/07/25 STATUS: LEELEE NAVA NUM: [id number] MT: 03/07/25-[address]: Lionel Cintron MD ENTERED: 03/07/25 SP TYPE: Surgical OTHR DR: [facility] ORDERED: Gross Micro L3 Copies To: [address] [id number] Lionel Cintron MD [facility] General Surgeons [address] [place] [id number] ----- ------- Signed (signature on file) Raghav Merrill MD 03/08/25 [id number] ----- ------- END OF REPORT Generic External Data Provider LAB CYTOLOGY CANDIE BILLY Final Result [facility] [address] [place] [address] [phone] * Glucose, Whole Blood (03/07/2025 11:13 AM EDT) Glucose, Whole Blood 92 60 - 115 mg/dL [facility] Comment:METER #: [id number] 03/07/2025 11:1 3 AM EDT 03/07/2025 11:21 AM EDT us Generic External Data Provider LAB BLOOD ORDERAB LES Final Result Performing Organization Address [facility]/ZIP Co de Phone Number [facility] [address] [place] [phone] [phone] * POCT Glucose (03/06/2025 11:58 AM EDT) Glucose Blood, POC 115 60 - 200 mg/dL Blood Capillary blood specimen / Unknown 03/06/2025 11:58 AM EDT us Bethany Ritchie MD POINT OF CARE TEST EN TER/EDIT ORDERABLES Final Result * Albumin, Random Urine W/Creatinine (02/26/2025 11:31 AM EDT) Creatinine, Urine 186.00 mg/dL [facility] Microalbumin Urine 39.0 mg/L [facility] Microalbum Creatinine Ratio Ur 20.9 <30 ug/mg cr [facility] Comment:Albumin/Creatinine R atio Reference Ranges: Normal: < 30 ug/mg creatinine Microalbuminuria: 30 - 300 ug/mg creatinineClinical Albuminuria: > 300 ug/mg creatinine Urine 02/26/2025 11:3 1 AM EDT 02/26/2025 1:48 PM EDT us [facility] LAB URINE ORDERABLES Final Re sult Performing Organization Address [facility]/ZIP Co de Phone Number [facility] [address] [place] [phone] * (ABNORMAL) Urinalysis Complete (02/21/2025 11:11 AM EDT) Color Urine Yellow [facility] Appearance Urine Clear [facility] PH 5.5 5.0 - 9.0 [facility] Glucose Urine UA Negative Negative mg/dL [facility] Urine Blood Small (1+)(A) Negative [facility] Specific [place] - Urine 1.015 1.005 - 1.025 [facility] Urine Protein Negative Neg-Trace mg/dL [facility] Urine Ketones Trace Negative mg/dL [facility] Nitrite Urine Negative Negative [facility] Leukocyte Esterase Urine Small (1+)(A) Negative [facility] RBC Urine 6-10(A) 0 - 2 /HPF [facility] Urine WBC 6-10(A) 0 - 5 /HPF [facility] Urine Squamous Epithelial Cell 11-20 0 - 2 /HPF [facility] Urine Bacteria 1+ None Seen [facility] Hyaline Casts, Urine 0-2 0 - 2 /LPF [facility] 02/21/2025 11:1 1 AM EDT 02/21/2025 12:02 PM EDT Generic External Data Provider LAB URINE ORDERAB LES Final Result [facility] [address] [place] [address] [phone] * Culture, Urine, Routine (02/21/2025 11:11 AM EDT) Urine Urine specimen obtained by clean catch procedure / Unknown 02/21/2025 11:11 AM EDT 02/21/2025 12:02 PM EDT Comment:UACC Narrative [facility] - 02/22/2025 11:07 AM EDT Urine Culture Report Result Urine Culture 10,000 to 50,000 cfu/ml Urine Culture Mixed bacterial norma characteristic of Urine Culture urogenital contamination. Specimen Source: Urine clean catch Generic External Data Provider LAB MICROBIOLOGY - GENERAL ORDERABLES Final Result Performing Organization Address [facility]/ZIP Co de Phone Number [facility] [address] [place] [address] [phone] * Hemoglobin A1c (01/01/2025 2:03 PM EDT) Hemoglobin A1c 5.7 <6.0 % [facility] Comment:Hemoglobin A1C Refer ence Range Adults: 4.8 - 6.0 % Non diabetic: < 6.0 % Goal: < 7.0 %Additional Action Suggested: > 8.0 %Note: Hemoglobin A1c results are invalid for patients with abnormal amounts of HbF. Blood transfusions may impact the HbA1c concentration in the patient sample. Estimated Average Glucose 117 mg/dL [facility] Comment:eAG = Estimated ave rage glucose which is %A1C expressed asaverage glucose, using the formula of the C2E-EtbdytwLishijh Glucose study (ADAG), Diabetes Care, Vol.31,#8,Mar. 2007 01/01/2025 2:03 PM EDT 01/01/2025 2:03 PM EDT Generic External Data Provider LAB BLOOD ORDERAB LES Final Result Performing Organization Address [facility] Co de Phone Number [facility] [address] [place] [address] [phone] * HIV-1/2 Antigen and Antibodies, Fourth Generation, with Reflexes (10/23/2024 2:05 PM EST) HIV AB/AG Nonreactive Nonreactive [facility] Comment:HIV-1 p24 Ag and/or HIV-1/HIV-2 Ab not detected.A test result that is nonreactive does not exclude thepossibility of exposure to or infection with HIV-1 and/orHIV-2. Nonreactive results in this assay for individualswith prior exposure to HIV-1 and/or HIV-2 may be due toantigen and antibody levels that are below the limit ofdetection of this assay.The [place] HIV Ag/Ab Combo assay result andsupplemental assay results should be interpreted inconjunction with the patient's clinical presentation,history and other laboratory results. If the results areinconsistent with clinical evidence, additional testing issuggested to confirm the result. Blood Venous blood specimen / Unknown 10/23/2024 2:05 PM EST 10/23/2024 4:20 PM EST [facility] RUNNER WORKER LAB BLOOD ORDERABLES Final Re sult Performing Organization Address [facility]/ZIP Co de Phone Number [facility] [address] [place] [address] [phone] * (ABNORMAL) Lipid Panel, Standard (09/25/2024 1:22 PM EST) Triglycerides 109 <150 mg/dL [facility] Comment:Desirable Triglyceri de: less than 150 mg/dLBorderline High Triglyceride 150-199 mg/dLHigh Triglyceride: 200-499 mg/dLVery High Triglyceride: greater than or equal to 5OO mg/dL Cholesterol 128 <200 mg/dL [facility] Comment:Desirable Cholestero l: less than 200 mg/dLBorderline High Cholesterol: 200-239 mg/dLHigh Cholesterol: greater than 239 mg/dL LDL Cholesterol Calculated 71 <100 mg/dL [facility] Comment:Desirable LDL: less than 100 mg/dLNear Optimal/Above Optimal LDL: 110- 129 mg/dLBorderline High LDL: 130-159 mg/dLHigh LDL: 160-189 mg/dLVery High LDL: greater than or equal to 190 mg/dL HDL Cholesterol 36(L) >40 mg/dL [facility] Comment:Desirable HDL: great er than 40 mg/dL Note: This HDL assay may give artificially low results in patients with liver disease. 09/25/2024 1:22 PM EST 09/25/2024 4:00 PM EST Generic External Data Provider LAB BLOOD ORDERAB LES Final Result Performing Organization Address [facility]/ZIP Co de Phone Number [facility] [address] [place] [address] [phone] * BI Mammogram Screening Tomosynthesis Bilateral (11/16/2023 1:25 PM EDT) Anatomical Region Laterality Modality Breast Bilateral Mammography 11/16/2023 1:25 PM EDT Narrative 12/02/2023 6:15 AM EDT [facility] [place] [address] Mammography Report Signed Patient: Sacha Contreras MR#: [id number] : 1980 Acct:[id number] Age/Sex: 42 / F ADM Date: 11/16/23 Loc: HO.MAMMO Attending Dr: Radha Shah NP Ordering Physician: Radha Shah NP Results: 1Negativ e Date of Service: 11/16/23 Follow Up: 1 Year From Orig ina Mammogram Procedure(s): MM tomosynthesis screening BI Accession Number(s): [id number] cc: Radha Shah NP EXAMINATION: MM SCREENING [...] in OV> 12/02/23 0611 DD/ 1325 TD/TT: Machine Wedger: Procedure Note Donotuseinterpreter, Image - 12/02/2023 [facility] [address] [place], [place] [address] Mammography Report Signed Patient: Lai Contreras#: [id number] : 1980Acct:[id number] Age/Sex: 42 / FADM Date: 11/16/23 Loc: HO.MAMMO Attending Dr: Radha Shah PUBLIC RELATIONS COORDINATOR Ordering Physician: Radha Shah NPResults: 1Negativ e Date of Service: 11/16/23Follow Up: 1 Year From Orig inal Mammogram Procedure(s): MM tomosynthesis screening BI Accession Number(s): [id number] cc: Radha Shha NP EXAMINATION: MM SCREENING DIGITAL BREAST TOMOSYNTHESIS, [...] in OV> 12/02/23 0611 DD/ 1325 TD/TT: Machine Wedger: Radha Shah RUNNER WORKER IM BI PROCEDURES Final Result * (ABNORMAL) Hepatitis Panel, General (02/22/2023 1:46 PM EDT) Hepatitis A Antibody Total REACTIVE( A) NON-REACT TAWNYA [facility] Comment: For additional information, please refer to http://Easydiagnosis.ApprenNet/faq/CMC454 (This link is being provided for informational/ educational purposes only.) Hepatitis B Surface Antibody QL REACTIVE( A) NON-REACT TAWNYA [facility] Hepatitis B Surface Ag NON-REACT TAWNYA NON-REACT TAWNYA [facility] Comment: For additional information, please refer to http://Alumnize/faq/DRV484 (This link is being provided for informational/ educational purposes only.) Hepatitis B Core Antibody Total NON-REACT TAWNYA NON-REACT TAWNYA [facility] Comment: For additional information, please refer to http://Alumnize/faq/NMM944 (This link is being provided for informational/ educational purposes only.) Hepatitis C Antibody NON-REACT TAWNYA NON-REACT TAWNYA [facility] Comment: HCV antibody was non-reactive. There is no laboratory evidence of HCV infection. In most cases, no further action is required. However, if recent HCV exposure is suspected, a test for HCV RNA (test code 50721) is suggested. For additional information please refer to http://Alumnize/faq/IYW31j8 (This link is being provided for informational/ educational purposes only.) 02/22/2023 1:46 PM EDT 02/22/2023 1:46 PM EDT Narrative [facility] - 02/26/2023 7:51 PM EDT FASTING:NO FASTING: NO Marc Nicolas [facility] BLOOD ORDERABLES Final Res ult [facility] [address], [place] [address] [facility] [employer] [address] [place] [phone] from Last 3 Months or Most Recently Relevant to Health Maintenance Insurance [place] [facility] MEDICAID STAND ADULT Care Teams Special Duty Nurse Relationship Specialty Start Date End Date Yecenia Frias FNP [address] [place] [phone] PCP - General Family Medicine 04/26/24 Colby Hirsch FNP Nurse Practitioner Family Medicine 07/13/23 Candice Ugarte Liquified Natural Gas SpecialistPsychotherapist Social Worker 12/27/23
--- OUTSIDE RECORDS SUMMARY | 2025-05-18 10:19 | XMS_ITS | Encounter Summary ---
Author Organization [employer] Address [address] [facility] 7t [place] [address] Care Team Providers Care Dry House Operator Name Role Phone Colby Hirsch TELECOMMUNICATIONS MANAGER Unavailable Unavailable [facility] Primary Care Provider Reason for Visit * Reason Comments Med Refill Encounter Details Date Type Department Care Team ([facility] st Contact Info) Description 01/02/2025 Refill [facility] [address] [place], [place] [phone] [facility] [address] [place] [address] Viral upper respiratory illness Social History Tobacco [...] Description 05/22/2025 12:00 PM EDT Office Visit [address] [address] Cheryl Galan DO [address] [place] [phone] 08/01/2025 2:00 PM EST Clinical Support [address] [address] Kira Bansal RN documented as of this encounter Visit Diagnoses Diagnosis Viral upper respiratory illness documented in this encounter Additional Health Concerns Assessment Noted Time PHQ-9 Depression Total Score: 0 10/24/19 25 1:15 PM EST documented as of this encounter Care Teams Dry House Operator Relationship Specialty Start Date End Date Yecenia Frias FNP [address] [place] [phone] PCP - General Family Medicine 04/26/24 Colby Hirsch FNP Nurse Practitioner Family Medicine 07/13/23 Candice Ugarte Mixed Livestock Farm WorkerLocal Company Flatbed Truck Driver 12/27/23 documented as of this encounter
--- OUTSIDE RECORDS SUMMARY | 2025-05-18 10:19 | XMS_ITS | Encounter Summary ---
Author Organization [employer] Address [address] [facility] 7t [place] [address] Care Team Providers Care Outdoor Illuminating Engineer Name Role Phone Ruth Hoffmann ENTERTAINMENT PRODUCTION PROFESSIONAL Primary Care Provider Marc Nava Primary Care Provider Unavail able Radha Shah ENTERTAINMENT PRODUCTION PROFESSIONAL Primary Care Provider [phone] Colby HirschP Unavailable Unavailable [facility] ENTERTAINMENT PRODUCTION PROFESSIONAL Primary Care Provider [phone] Reason for Visit * Reason Onset Date Comments Appointment Request 10/01/2022 Encounter Details Date Type Department Care Team (Late st Contact Info) Description 10/01/2022 Telephone [facility] MEDICINE [address] [place] [address] Ruth Hoffmann FNP Appointment Request Social History [...] Description 05/22/2025 12:00 PM EDT Office Visit [address] [address] Cheryl Galan DO [address] [place], [place] 08/01/2025 2:00 PM EST Clinical Support [address] [address] Kira Bansal RN documented as of this encounter Visit Diagnoses Not on filedocumented in this encounter Care Teams Outdoor Illuminating Engineer Relationship Specialty Start Date End Date Ruth Hoffmann FNP PCP - General Family Medicine 07/21/22 10/21/22 Marc Nicolas AGNP PCP - General Family Medicine 10/22/22 04/20/23 Radha Shah FNP [address] [place] [phone] PCP - General Family Medicine 04/21/23 04/25/24 [place] RosaYecenia FNP [address] [place] [address] PCP - General Family Medicine 04/26/24 Colby Hirsch FNP [address] [place] [address] Nurse Practitioner Family Medicine 07/13/23 Candice Ugarte Professor Of FinanceFine Chemicals Operator 12/27/23 documented as of this encounter
--- OUTSIDE RECORDS SUMMARY | 2025-05-18 10:20 | XMS_ITS | Encounter Summary ---
Author Organization [employer] Address [address] [facility] 7t [place] [address] Care Team Providers Care Generation Mechanic Helper Name Role Phone Radha Shah RELIEF CAPTAIN Primary Care Provider + Colby Hirsch Unavailable Unavailable [facility] RELIEF CAPTAIN Primary Care Provider [phone] Reason for Visit * Reason Onset Date Comments telephone call 10/29/2023 Encounter Details Date Type Department Care Team (Late st Contact Info) Description 10/29/2023 Refill [facility] MED[facility]INE [address] [place] [address] Radha Shah FNP [address] [place] [address] Multiple joint pain Social History Tobacco Use [...] does not remember the program name. A operations team leader from the program told her that if she still want to be in the program she needs a referral from PCP. Please call patient with any concern or questions. * Telephone Encounter - Celine Pate - 11/12/2023 9:46 AM EDT Patient walked in requesting a referral for a program. Patient does not remember the program name. A operations team leader from the program told her that if she still want to be in the program she needs a referral from PCP. Please call patient with any concern or questions. documented in this encounter Plan of Treatment Upcoming Encounters Date Type Department Care Team (Late st Contact Info) Description 05/22/2025 12:00 PM EDT Office Visit [facility] [address] [place] [address] Cheryl Galan DO [address] [place] [address] 08/01/2025 2:00 PM EST Clinical Support [facility] [address] [place] [address] Kira Bansal RN documented as of this encounter Visit Diagnoses Diagnosis Multiple joint pain Pain in joint, multiple sites documented in this encounter Additional Health Concerns Assessment Noted Time PHQ-9 Depression Total Score: 8 09/02/19 24 11:12 AM EST documented as of this encounter Care Teams Generation Mechanic Helper Relationship Specialty Start Date End Date Radha Shah FNP [address] [place] [phone] PCP - General Family Medicine 04/21/23 04/25/24 Yecenia Frias FNP [address] [place] [phone] PCP - General Family Medicine 04/26/24 Colby Hirsch FNP [address] [place] [phone] Nurse Practitioner Family Medicine 07/13/23 Candice Ugarte Diversified Crops I FarmworkerBurr Picker 12/27/23 documented as of this encounter
--- OUTSIDE RECORDS SUMMARY | 2025-05-18 10:20 | XMS_ITS | Encounter Summary ---
Author Organization [employer] Address [address] [facility] 7t [place] [address] Care Team Providers Care Office Services Representative Name Role Phone Radha Shah ENGINEERING SYSTEMS ANALYST Primary Care Provider [phone] Colby Hirsch Unavailable Unavailable [facility] Primary Care Provider [phone] Reason for Visit * Reason Comments Med Refill Encounter Details Date Type Department Care Team (Late st Contact Info) Description 11/24/2023 Refill [facility]INE [address] [place] [address] Radha Shah FNP [address] [place] [address] Multiple joint pain Social History Tobacco Use [...] Description 05/22/2025 12:00 PM EDT Office Visit [address] [address] Cheryl Galan DO [address] [place] [address] 08/01/2025 2:00 PM EST Clinical Support [address] [address] Kira Bansal, MEREDITH documented as of this encounter Visit Diagnoses Diagnosis Multiple joint pain Pain in joint, multiple sites documented in this encounter Additional Health Concerns Assessment Noted Time PHQ-9 Depression Total Score: 8 09/02/19 24 11:12 AM EST documented as of this encounter Care Teams Office Services Representative Relationship Specialty Start Date End Date Radha Shah FNP [address] [place] [phone] PCP - General Family Medicine 04/21/23 04/25/24 Yecenia Frias FNP [address] [place] [address] PCP - General Family Medicine 04/26/24 Colby Hirsch FNP [address] [place] [address] Nurse Practitioner Family Medicine 07/13/23 Candice Ugarte Manager PacuManager Of Software Development 12/27/23 documented as of this encounter
--- OUTSIDE RECORDS SUMMARY | 2025-05-18 10:20 | XMS_ITS | Patient Health Record ---
Author Organization [facility] Address [address] [place] [address] Care Team Providers Care Engineering Writer Name Role Phone Radha Rodriguez Primary Care Provider Jaylan Clancy Unavailable [phone] Allergies Allergen (clinical drug ingredient) Drug/Non Drug Allergy documented on EMR Reaction Allergy Type Onset Date Status quetiapine Quetiapine Fumarate Unknown Drug Allergy Active morphine Morphine Sulfate Unknown Drug Allergy Active diphenhydramine Benadryl Unknown Drug Allergy A ctive sea food (uncoded) Unknown Allergy A ctive trazodone Trazodone HCl Unknown Drug Allergy Act arvin Reason For Referral No Information Medications Medication SIG (Take, Route, Frequency, Duration) [...] DAILY Oral for 30 Active Vitamin A 26612 UNIT TAKE 1 CAPSULE BY M OUTH [...] Problem Status W/U Status Risk Notes Problem 90128660 Epigastric abdom inal pain (R10.13) Active confirmed Problem 099218392 Irritable bowel syndrome with diarrhea (K58.0) Active confirmed Problem Elevated liver enzymes level (071997135) Elevated liver function tests (R79.89) Active confirmed Problem 378878941 Fatty liver (K76.0) Active confirmed Problem 429442105 Gastroesophageal reflux disease, esophagitis presence not specified (K21.9) Active confirmed Problem 591743145 Abdominal pain, right upper quadrant (R10.11) Active confirmed Encounters Encounter Location Date Provider Diagnosis [facility] [address] [place] [id number] 06/16/2024 Jaylan Neal Plan Of Treatment Pending Test Test Name Order Date BUN 12/29/2019 CREATININE 12/29/2019 LIVER PROFILE 02/04/2020 LIVER PROFILE 04/09/2020 LIVER PROFILE 12/29/2019 CBC w DIFF 12/29/2019 PROTHROMBIN TIME (PT, INR) 12/29/2019 [id number] (A1A) 12/29/2019 CAROTENE 12/29/2019 CERULOPLASMIN 12/29/2019 MITOCHONDRIAL [...] Start Date Coverage End Date MEDICAID [facility] [address] FELICITY CRUZ [phone] [id number] HARMAN LEUNG Self - patient is the [...]
--- OUTSIDE RECORDS SUMMARY | 2025-05-18 10:20 | XMS_ITS | Encounter Summary ---
Author Organization [employer] Address 75 [facility] 7t [place] [address] Care Team Providers Care Top Steep Tender Name Role Phone Colby Hirsch TELECOM SPECIALIST Unavailable Unavailable [facility] Primary Care Provider [phone] Reason for Visit * Reason Onset Date Comments telephone call 05/16/2025 Encounter Details Date Type Department Care Team ([facility] st Contact Info) Description 05/16/2025 Telephone [facility] MEDICINE [address] [place] [address] [facility] 230 [place] [address] telephone call Social History Tobacco Use Types [...] encounter Miscellaneous Notes * Telephone Encounter - Lew Webb RN - 05/17/2025 9:23 AM EDT TC placed to patient [phone] using [email or web address] #ID [id number] regarding below message. RN status checked patient. Patient c/o dizziness with headaches every morning and bilateral foot cramps x 1 month. Patient reported she has taken Tylenol for the headaches w/o any relief. RN advised patient to go [facility], patient declined at this time and only wants to see her PCP. RN scheduled an appointment with an provider on the Red team. Patient agreed to the appointment. PT verbalized understanding. Pt to F/U PRN. * Telephone Encounter - Suyapa Walton - 05/16/2025 11:04 AM EDT Pt walked in stating every morning for almost the past month she wakes up feeling dizzy and she is having headaches , she also stated when she walks she feels cramps under her feet. I told her she can get seen in the [facility] but she said she wanted to see her pcp. documented in this encounter Plan of Treatment Upcoming Encounters Date Type Department Care Team (Late st Contact Info) Description 05/22/2025 12:00 PM EDT Office Visit [address] [id number] Cheryl Galan DO 230 [place] [address] 08/01/2025 2:00 PM EST Clinical Support [address] [id number] Kira Bansal, MEREDITH documented as of this encounter Visit Diagnoses Not on filedocumented in this encounter Additional Health Concerns Assessment Noted Time PHQ-9 Depression Total Score: 0 02/27/20 25 10:29 AM EDT documented as of this encounter Care Teams Top Steep Tender Relationship Specialty Start Date End Date Yecenia Frias FNP [address] [place] [address] PCP - General Family Medicine 04/26/24 Colby Hirsch FNP Nurse Practitioner Family Medicine 07/13/23 Candice Ugarte Greenhouse AssistantMarketing Researcher 12/27/23 documented as of this encounter
--- OUTSIDE RECORDS SUMMARY | 2025-05-18 10:20 | XMS_ITS | Encounter Summary ---
Author Organization [employer] Address 75 [facility] 7t [place] [address] Care Team Providers Care Entertainment Production Professional Name Role Phone Colby Hirsch TURBINE OPERATOR Unavailable Unavailable [facility] Primary Care Provider [phone] Reason for Visit * Reason Comments Med Refill Encounter Details Date Type Department Care Team ([facility] st Contact Info) Description 04/18/2025 Refill [facility] MEDICINE 230 [place] [address] [facility] 230 [place] [address] Arthralgia, unspecified joint Social History Tobacco Use [...] Description 05/22/2025 12:00 PM EDT Office Visit [address] [address] Cheryl Galan DO [address] [place] [address] 08/01/2025 2:00 PM EST Clinical Support [address] [address] Kira Bansal, MEREDITH documented as of this encounter Visit Diagnoses Diagnosis Arthralgia, unspecified joint documented in this encounter Additional Health Concerns Assessment Noted Time PHQ-9 Depression Total Score: 0 02/27/20 25 10:29 AM EDT documented as of this encounter Care Teams Entertainment Production Professional Relationship Specialty Start Date End Date Yecenia Frias FNP [address] [place] [address] PCP - General Family Medicine 04/26/24 Colby Hirsch FNP Nurse Practitioner Family Medicine 07/13/23 Candice Ugarte Pediatric CardiologistAsphalt Layer 12/27/23 documented as of this encounter
--- OUTSIDE RECORDS SUMMARY | 2025-05-18 10:20 | XMS_ITS | Encounter Summary ---
Author Organization [employer] Address 75 [facility] 7t [place] [address] Care Team Providers Care Jig And Fixture Builder Apprentice Name Role Phone Colby Hirsch JAPANESE PROFESSOR Unavailable Unavailable [facility] Primary Care Provider [phone] Reason for Visit * Reason Comments Med Refill Encounter Details Date Type Department Care Team (Late st Contact Info) Description 03/12/2025 Refill [facility] MEDICINE 230 [place] [address] Radha Shah FNP 230 [place] [address] Social History Tobacco Use Types Packs/Day Years [...] 05/22/2025 12:00 PM EDT Office Visit [address] [address] Cheryl Galan DO 230 [place] [address] 08/01/2025 2:00 PM EST Clinical Support [address] [address] Kira Bansal, MEREDITH documented as of this encounter Visit Diagnoses Not on filedocumented in this encounter Additional Health Concerns Assessment Noted Time PHQ-9 Depression Total Score: 0 02/27/20 25 10:29 AM EDT documented as of this encounter Care Teams Jig And Fixture Builder Apprentice Relationship Specialty Start Date End Date Yecenia Frias FNP [address] [place] [address] PCP - General Family Medicine 04/26/24 Colby Hirsch FNP Nurse Practitioner Family Medicine 07/13/23 Candice Ugarte Straight Knife Cutter MachineInterior Surface Insulation Worker 12/27/23 documented as of this encounter
--- OUTSIDE RECORDS SUMMARY | 2025-05-18 10:20 | XMS_ITS | Encounter Summary ---
Author Organization [employer] Address 75 [facility] 7t [place] [address] Care Team Providers Care Collator Hand Name Role Phone Radha Shah GAS OPERATOR Primary Care Provider [phone] Colby Hirsch Unavailable Unavailable [facility] Primary Care Provider [phone] Reason for Visit * Reason Comments Med Refill Encounter Details Date Type Department Care Team (Late st Contact Info) Description 04/12/2024 Refill [facility] MEDICINE 230 [place] [address] Radha Shah FNP 230 [place] [address] Multiple joint pain Social History Tobacco Use [...] edge 3 03/24 1:28 PM EDT Kira Basnal RN Not being able to stop or [...] Description 05/22/2025 12:00 PM EDT Office Visit [facility] [address] [place] [address] Cheryl Galan DO 230 [place] [address] 08/01/2025 2:00 PM EST Clinical Support [facility] [address] [place] [address] Kira Bansal, RN documented as of this encounter Visit Diagnoses Diagnosis Multiple joint pain Pain in joint, multiple sites documented in this encounter Additional Health Concerns Assessment Noted Time PHQ-9 Depression Total Score: 7 03/07/20 24 10:13 AM EDT documented as of this encounter Care Teams Collator Hand Relationship Specialty Start Date End Date Radha Shah FNP 230 [place] [address] PCP - General Family Medicine 04/21/23 04/25/24 Yecenia Frias FNP [address] [place] [address] PCP - General Family Medicine 04/26/24 Colby Hirsch FNP [address] [place] [address] Nurse Practitioner Family Medicine 07/13/23 Candice Ugarte Licensed Funeral DirectorPhysical Therapy Aid 12/27/23 documented as of this encounter
--- OUTSIDE RECORDS SUMMARY | 2025-05-18 10:20 | XMS_ITS | Encounter Summary ---
Author Organization [employer] Address 75 [facility] 7t [place] [address] Care Team Providers Care Fertilizer Mixer Name Role Phone Marc Nicolas Primary Care Provider Unavail able Radha Shah PLUCK TRIMMER Primary Care Provider [phone] Colby Hirsch Unavailable Unavailable [facility] PLUCK TRIMMER Primary Care Provider [phone] Reason for Visit * Reason Onset Date Comments Referral 01/26/2023 Encounter Details Date Type Department Care Team (Late st Contact Info) Description 01/26/2023 Telephone [facility] MEDICINE 230 [place] [address] Marc Nicolas AGNP Referral Social History Tobacco [...] Description 05/22/2025 12:00 PM EDT Office Visit [facility] 230 [place] [address] Cheryl Galan DO 230 [place] [address] 08/01/2025 2:00 PM EST Clinical Support [facility] 230 [place] [address] Kira Bansal RN documented as of this encounter Visit Diagnoses Not on filedocumented in this encounter Additional Health Concerns Assessment Noted Time PHQ-9 Depression Total Score: 19 023 3:57 PM EDT documented as of this encounter Care Teams Fertilizer Mixer Relationship Specialty Start Date End Date Marc Nicolas AGNP PCP - General Family Medicine 10/22/22 04/20/23 Radha Shah FNP [address] [place] [address] PCP - General Family Medicine 04/21/23 04/25/24 LoganvilleYecenia FNP [address] [place] [address] PCP - General Family Medicine 04/26/24 Colby Hirsch FNP [address] [place] [address] Nurse Practitioner Family Medicine 07/13/23 Candice Ugarte Staff ReporterFinancial Reporting Consultant 12/27/23 documented as of this encounter
--- OUTSIDE RECORDS SUMMARY | 2025-05-18 10:20 | XMS_ITS | Encounter Summary ---
Author Organization [employer] Address 75 [facility] 7t [place] [address] Care Team Providers Care Boy'S Adviser Name Role Phone Colby Hirsch BOARD HAMMER OPERATOR Unavailable Unavailable [facility] [place] [facility] Primary Care Provider Reason for Visit * Reason Onset Date Comments Med Refill 05/14/2025 Encounter Details Date Type Department Care Team ([facility] st Contact Info) Description 05/14/2025 Refill [facility] MEDICINE 230 [place], [place] [phone] [facility] 230 [place] [address] Multiple joint pain Social History Tobacco Use [...] encounter Miscellaneous Notes * Telephone Encounter - Marisol Obrien - 05/14/2025 12:06 PM EDT TC from pt requesting medication refill. Medications needing refill : - traMADol (Ultram) 50 MG tablet To be sent to: - [facility] - [place], [place] - [address] [place] [address] documented in this encounter Plan of Treatment Upcoming Encounters Date Type Department Care Team ([facility] st Contact Info) Description 05/22/2025 12:00 PM EDT Office Visit [address] [address] Cheryl Galan DO 230 [place] [address] 08/01/2025 2:00 PM EST Clinical Support [address] [address] Kira Bansal RN documented as of this encounter Visit Diagnoses Diagnosis Multiple joint pain Pain in joint, multiple sites documented in this encounter Additional Health Concerns Assessment Noted Time PHQ-9 Depression Total Score: 0 02/27/20 25 10:29 AM EDT documented as of this encounter Care Teams Boy'S Adviser Relationship Specialty Start Date End Date VintonYecenia FNP [address] [place] [address] PCP - General Family Medicine 04/26/24 Colby Hirsch FNP Nurse Practitioner Family Medicine 07/13/23 Candice Ugarte Body Builder ApprenticeGriddle Cook 12/27/23 documented as of this encounter
--- OUTSIDE RECORDS SUMMARY | 2025-05-18 10:20 | XMS_ITS | Encounter Summary ---
Author Organization [employer] Address [address] [facility] [address] 7t [place] [address] Care Team Providers Care Trim Operator Name Role Phone Radha Shah VIDEO TECHNICIAN Primary Care Provider + Colby Hirsch VIDEO TECHNICIAN Unavailable Unavailable [facility] VIDEO TECHNICIAN Primary Care Provider [phone] Reason for Visit * Reason Comments Med Refill Encounter Details Date Type Department Care Team (Late st Contact Info) Description 06/04/2023 Refill [facility] MEDICINE 230 [place] [address] Marilee Buckner FNP Multiple joint pain; Mixed anxiety and depressive [...] every day 06/07/2023 11:25 AM EDT Muriel iSmons Trouble falling or staying asleep, or sleeping [...] Description 05/22/2025 12:00 PM EDT Office Visit [facility] [address] [place] [address] Cheryl Galan DO 230 [place] [address] 08/01/2025 2:00 PM EST Clinical Support [address] [address] Kira Bansal, RN documented as of this encounter Visit Diagnoses Diagnosis Multiple joint pain Pain in joint, multiple sites Mixed anxiety and depressive disorder Dysthymic disorder documented in this encounter Additional Health Concerns Assessment Noted Time PHQ-9 Depression Total Score: 0 04/02/20 2:10 PM EDT documented as of this encounter Care Teams Trim Operator Relationship Specialty Start Date End Date Radha Shah FNP 230 [place] [address] PCP - General Family Medicine 04/21/23 04/25/24 Yecenia Frias FNP [address] [place] [address] PCP - General Family Medicine 04/26/24 Colby Hirsch FNP [address] [place] [address] Nurse Practitioner Family Medicine 07/13/23 Candice Ugarte City EngineerRose Grower 12/27/23 documented as of this encounter
--- OUTSIDE RECORDS SUMMARY | 2025-05-18 10:20 | XMS_ITS | Encounter Summary ---
Author Organization [employer] Address [address] [facility] [address] 7t [place] [address] Care Team Providers Care Biology Specimen Technician Name Role Phone Radha Shah Primary Care Provider [phone] Colby Hirsch Unavailable Unavailable [facility] DRAPERY ESTIMATOR Primary Care Provider [phone] Encounter Details Date Type Department Care Team (Late st Contact Info) Description 10/29/2023 Orders Only [facility] [address] [place] [address] Radha Shah FNP [address] [place] [address] Social History Tobacco Use Types Packs/Day Years [...] Description 05/22/2025 12:00 PM EDT Office Visit [address] [address] Cheryl Galan DO [address] [place] [address] 08/01/2025 2:00 PM EST Clinical Support [address] [address] Kira Bansal RN documented as of this encounter Visit Diagnoses Not on filedocumented in this encounter Additional Health Concerns Assessment Noted Time PHQ-9 Depression Total Score: 8 09/02/19 24 11:12 AM EST documented as of this encounter Care Teams Biology Specimen Technician Relationship Specialty Start Date End Date Radha Shah FNP [address] [place] [address] PCP - General Family Medicine 04/21/23 04/25/24 Yecenia Frias FNP [address] [place] [address] PCP - General Family Medicine 04/26/24 Colby Hirsch FNP [address] [place] [address] Nurse Practitioner Family Medicine 07/13/23 Candice Ugarte Fax Machine OperatorSenior Data Quality Analyst 12/27/23 documented as of this encounter
--- OUTSIDE RECORDS SUMMARY | 2025-05-18 10:21 | XMS_ITS | Encounter Summary ---
Author Organization [employer] Address 75 [facility] 7t [place] [address] Care Team Providers Care Mines Inspector Name Role Phone Marc Nicolas Primary Care Provider Unavail able Radha Shah FEATHER TRIMMER Primary Care Provider [phone] Colby Hirsch Unavailable Unavailable [facility] FEATHER TRIMMER Primary Care Provider Reason for Visit * Reason Onset Date Comments Results 04/09/2023 Encounter Details Date Type Department Care Team (Late st Contact Info) Description 04/09/2023 Telephone [facility] MEDICINE 230 [place] [address] Marc Nicolas AGNP Results Social History Tobacco [...] encounter Miscellaneous Notes * Telephone Encounter - aLura Adame RN - 04/30/2023 11:58 AM EDT FYI T/C to pt. Through [employer] id - [id number] for below message. Pt. States she is having apt. With Dr. Sims on 05/03/2023 and wants to discuss on that day. Pt. Advised to give call back on [phone] if any questions or concerns. Pt. Verbally agreed and understood. Please review and advise if needed. * Telephone Encounter - Romeo Child - 04/09/2023 12:19 PM EDT Tc from pt requesting status on results for Liver that were done a moth ago pt states. Please contact pt at [phone] Slovak Speaker documented in this encounter Plan of Treatment Upcoming Encounters Date Type Department Care Team (Late st Contact Info) Description 05/22/2025 12:00 PM EDT Office Visit [address] [address] Cheryl Galan DO 230 [place] [address] 08/01/2025 2:00 PM EST Clinical Support [address] [address] Kira Bansal RN documented as of this encounter Visit Diagnoses Not on filedocumented in this encounter Additional Health Concerns Assessment Noted Time PHQ-9 Depression Total Score: 0 04/02/20 23 2:10 PM EDT documented as of this encounter Care Teams Mines Inspector Relationship Specialty Start Date End Date Marc Nicolas AGNP PCP - General Family Medicine 10/22/22 04/20/23 Radha Shah FNP [address] [place] [address] PCP - General Family Medicine 04/21/23 04/25/24 Yecenia Frias FNP [address] [place] [address] PCP - General Family Medicine 04/26/24 oClby Hirsch FNP 230 [place] [address] Nurse Practitioner Family Medicine 07/13/23 Candice Ugarte Crystal Flat GrinderInvestor Relations Coordinator 12/27/23 documented as of this encounter
--- OUTSIDE RECORDS SUMMARY | 2025-05-18 10:21 | XMS_ITS | Encounter Summary ---
Author Organization [employer] Address 75 [facility] 7t [place] [address] Care Team Providers Care Talent Advisor Name Role Phone PabloDanymargie CASEY Primary Care Provider [phone] Colby Hirsch Unavailable Unavailable [facility] Primary Care Provider [phone] Reason for Visit * Reason Comments Med Refill Encounter Details Date Type Department Care Team (Late st Contact Info) Description 01/04/2024 Refill [facility] MEDICINE 230 [place] [address] Colby Hirsch FNP Social History Tobacco Use [...] Description 05/22/2025 12:00 PM EDT Office Visit [address] [address] Cheryl Galan DO [address] [place] [address] 08/01/2025 2:00 PM EST Clinical Support [address] [address] Kira Bansal RN documented as of this encounter Visit Diagnoses Not on filedocumented in this encounter Additional Health Concerns Assessment Noted Time PHQ-9 Depression Total Score: 6 12/28/19 24 11:17 AM EDT documented as of this encounter Care Teams Talent Advisor Relationship Specialty Start Date End Date Radha Shah FNP [address] [place] [address] PCP - General Family Medicine 04/21/23 04/25/24 [place] GroveYecenia FNP [address] [place] [address] PCP - General Family Medicine 04/26/24 Colby Hirsch FNP [address] [place] [address] Nurse Practitioner Family Medicine 07/13/23 Candice Ugarte History Card ClerkTour Operator 12/27/23 documented as of this encounter
--- OUTSIDE RECORDS SUMMARY | 2025-05-18 10:21 | XMS_ITS | Encounter Summary ---
Author Organization [employer] Address 75 [facility] 7t [place] [address] Care Team Providers Care Doctor Of Podiatric Medicine Name Role Phone Radha Shah DIRECTOR OF GIFT PLANNING Primary Care Provider [phone] Colby Hirsch Unavailable Unavailable [facility] Primary Care Provider [phone] Encounter Details Date Type Department Care Team (Late st Contact Info) Description 02/17/2024 Community Care Management [facility] MEDICINE [address] [place] [address] Radha Shah FNP [address] [place] [address] Social History Tobacco Use Types Packs/Day Years [...] Description 05/22/2025 12:00 PM EDT Office Visit [address] [address] Cheryl Galan DO [address] [place] [address] 08/01/2025 2:00 PM EST Clinical Support [address] [address] Kira Bansal RN documented as of this encounter Visit Diagnoses Not on filedocumented in this encounter Additional Health Concerns Assessment Noted Time PHQ-9 Depression Total Score: 6 12/28/19 24 11:17 AM EDT documented as of this encounter Care Teams Doctor Of Podiatric Medicine Relationship Specialty Start Date End Date Radha Shah FNP [address] [place] [address] PCP - General Family Medicine 04/21/23 04/25/24 Yecenia Frias FNP [address] [place] [address] PCP - General Family Medicine 04/26/24 Colby Hirsch FNP [address] [place] [address] Nurse Practitioner Family Medicine 07/13/23 Candice Ugarte Doll Wig HacklerConcrete Block Maker 12/27/23 documented as of this encounter
--- OUTSIDE RECORDS SUMMARY | 2025-05-18 10:21 | XMS_ITS | Encounter Summary ---
Author Organization [employer] Address 75 [facility] 7t [place] [address] Care Team Providers Care Renewals Manager Name Role Phone Marc Nicolas Primary Care Provider Unavail able Radha Shah PRIMER SUPERVISOR Primary Care Provider +[phone] Colby [place]sch Unavailable Unavailable [facility] PRIMER SUPERVISOR Primary Care Provider [phone] Reason for Visit * Reason Comments Med Refill Encounter Details Date Type Department Care Team (Late Contact Info) Description 04/08/2023 Refill [facility] [address] [place] [address] [phone] Marc Nicolas AGNP Mixed anxiety and depressive [...] Department Care Team (Late Contact Info) Description 05/22/2025 12:00 PM EDT Office Visit [facility] [address] [place], [place] [phone] Cheryl Galan DO 230 [place], [place] [phone] 08/01/2025 2:00 PM EST Clinical Support [facility] [address] [place] [address] Kira Bansal, MEREDITH documented as of this encounter Visit Diagnoses Diagnosis Mixed anxiety and depressive disorder Dysthymic disorder documented in this encounter Additional Health Concerns Assessment Noted Time PHQ-9 Depression Total Score: 0 04/02/20 2:10 PM EDT documented as of this encounter Care Teams Renewals Manager Relationship Specialty Start Date End Date Marc Nicolas AGNP PCP - General Family Medicine 10/22/22 04/20/23 Radha Shah FNP [address] [place] [address] PCP - General Family Medicine 04/21/23 04/25/24 LoachapokaYecenia whipple FNP [address] [place] [address] PCP - General Family Medicine 04/26/24 Colby [place]sch FNP [address] [place] [address] Nurse Practitioner Family Medicine 07/13/23 Candice Ugarte Log GetterZoo Director 12/27/23 documented as of this encounter
--- OUTSIDE RECORDS SUMMARY | 2025-05-18 10:21 | XMS_ITS | Encounter Summary ---
Author Organization [employer] Address 75 [facility] 7t [place] [address] Care Team Providers Care Professor Of Theology Name Role Phone Radha Shah HALFWAY HOUSE COUNSELOR Primary Care Provider +[phone] Colby [place]sch Unavailable Unavailable [facility] Primary Care Provider [phone] Reason for Visit * Reason Comments Med Refill Encounter Details Date Type Department Care Team (Late st Contact Info) Description 02/16/2024 Refill [facility] [address] [place] [address] Radha Shah FNP [address] [place] [address] Multiple joint pain Social History Tobacco Use [...] Description 05/22/2025 12:00 PM EDT Office Visit [address] [address] Cheryl Galan DO [address] [place] [address] 08/01/2025 2:00 PM EST Clinical Support [address] [address] Kira Bansal, MEREDITH documented as of this encounter Visit Diagnoses Diagnosis Multiple joint pain Pain in joint, multiple sites documented in this encounter Additional Health Concerns Assessment Noted Time PHQ-9 Depression Total Score: 6 12/28/19 24 11:17 AM EDT documented as of this encounter Care Teams Professor Of Theology Relationship Specialty Start Date End Date Radha Shah FNP [address] [place] [address] PCP - General Family Medicine 04/21/23 04/25/24 Yecenia Frias FNP [address] [place] [address] PCP - General Family Medicine 04/26/24 Colby Hirsch FNP 230 [place] [address] Nurse Practitioner Family Medicine 07/13/23 Candice Ugarte Icu Staff NursePouncer 12/27/23 documented as of this encounter
--- OUTSIDE RECORDS SUMMARY | 2025-05-18 10:21 | XMS_ITS | Encounter Summary ---
Author Organization [employer] Address [address] [facility] [address] 7t [place] [address] Care Team Providers Care V Belt Mold Assembler And Curer Name Role Phone Radha Shah Primary Care Provider +[phone] Colby Hirsch Unavailable Unavailable [facility] ROOM SERVICE WAITER/WAITRESS Primary Care Provider [phone] Encounter Details Date Type Department Care Team (Late st Contact Info) Description 02/16/2024 Orders Only [facility] MED & PEDS [address] [place] [address] Radha Shah FNP [address] [place] [address] Routine adult health maintenance (Primary Dx) Social [...] Description 05/22/2025 12:00 PM EDT Office Visit [address] [address] Cheryl Galan DO [address] [place] [address] 08/01/2025 2:00 PM EST Clinical Support [address] [address] Kira Bansal, MEREDITH documented as of this encounter Visit Diagnoses Diagnosis Routine adult health maintenance- Primary documented in this encounter Additional Health Concerns Assessment Noted Time PHQ-9 Depression Total Score: 6 12/28/19 24 11:17 AM EDT documented as of this encounter Care Teams V Belt Mold Assembler And Curer Relationship Specialty Start Date End Date Radha Shah FNP [address] [place] [address] PCP - General Family Medicine 04/21/23 04/25/24 Yecenia Frias FNP [address] [place] [address] PCP - General Family Medicine 04/26/24 Colby Hirsch FNP [address] [place] [address] Nurse Practitioner Family Medicine 07/13/23 Candice Ugarte Nca Certified ConciergeVoice Over Announcer 12/27/23 documented as of this encounter
--- OUTSIDE RECORDS SUMMARY | 2025-05-18 10:21 | XMS_ITS | Encounter Summary ---
Author Organization [employer] Address 75 [facility] 7t [place] [address] Care Team Providers Care Insurance Counsel Name Role Phone Marc Nicolas Primary Care Provider Unavail able Radha Shah Primary Care Provider +[phone] Colby Hirsch Unavailable Unavailable [facility] CHRONOGRAPH OPERATOR Primary Care Provider [phone] Reason for Visit * Reason Comments Med Refill Encounter Details Date Type Department Care Team (Late st Contact Info) Description 03/10/2023 Refill [facility] 230 [place], [place] [phone] Marc Nicolas AGNP Mixed anxiety and depressive [...] Description 05/22/2025 12:00 PM EDT Office Visit [facility] MED[facility] [address] [place], [place] [phone] Cheryl Galan DO 230 [facility] [place], [place] [phone] 08/01/2025 2:00 PM EST Clinical Support [facility] 230 [facility] [place] [address] Kira Bansal, MEREDITH documented as of this encounter Visit Diagnoses Diagnosis Mixed anxiety and depressive disorder Dysthymic disorder documented in this encounter Additional Health Concerns Assessment Noted Time PHQ-9 Depression Total Score: 13 023 3:27 PM EDT documented as of this encounter Care Teams Insurance Counsel Relationship Specialty Start Date End Date Marc Nicolas AGNP PCP - General Family Medicine 10/22/22 04/20/23 [place] [address] PCP - General Family Medicine 04/21/23 04/25/24 [place] [address] PCP - General Family Medicine 04/26/24 Colby [place]sch FNP [address] [place] [address] Nurse Practitioner Family Medicine 07/13/23 Candice Ugarte Sow Farm Barn TechnicianEnsemble Member 12/27/23 documented as of this encounter
--- OUTSIDE RECORDS SUMMARY | 2025-05-18 10:21 | XMS_ITS | Encounter Summary ---
Author Organization [employer] Address [address] [facility] [address] 7t [place] [address] Care Team Providers Care Criminal Justice Professor Name Role Phone Radha Shah Primary Care Provider +6 Colby [place]sch Unavailable Unavailable [facility] SHELL MOLD BONDER Primary Care Provider [phone] Encounter Details Date Type Department Care Team (Late st Contact Info) Description 03/08/2024 Orders Only [facility] MED & PEDS [address] [place] [address] Radha Shah FNP [address] [place] [address] Social History Tobacco Use Types Packs/Day Years [...] Description 05/22/2025 12:00 PM EDT Office Visit [address] [address] Cheryl Galan DO [address] [place] [address] 08/01/2025 2:00 PM EST Clinical Support [address] [address] Kira Bansal, MEREDITH documented as of this encounter Visit Diagnoses Not on filedocumented in this encounter Additional Health Concerns Assessment Noted Time PHQ-9 Depression Total Score: 7 03/07/20 24 10:13 AM EDT documented as of this encounter Care Teams Criminal Justice Professor Relationship Specialty Start Date End Date Radha Shah FNP [address] [place] [address] PCP - General Family Medicine 04/21/23 04/25/24 Yecenia Frias FNP [address] [place] [address] PCP - General Family Medicine 04/26/24 Colby [place]sch FNP [address] [place] [address] Nurse Practitioner Family Medicine 07/13/23 Candice Ugarte Finger Buff SewerMeat Pickler 12/27/23 documented as of this encounter
--- OUTSIDE RECORDS SUMMARY | 2025-05-18 10:21 | XMS_ITS | Encounter Summary ---
Author Organization [employer] Address [address] [facility] [address] 7t [place] [address] Care Team Providers Care Loom Doffer Name Role Phone Radha Shah DOOR TO DOOR SALESMAN Primary Care Provider +[phone] Colby [place]sch Unavailable Unavailable [facility] DOOR TO DOOR SALESMAN Primary Care Provider [phone] Encounter Details Date Type Department Care Team (Late st Contact Info) Description 04/24/2024 Orders Only [facility] CH[facility] MED & PEDS [address] [place] [address] Radha Shah FNP [address] [place] [address] Elevated lipids (Primary Dx) Social History Tobacco [...] 05/22/2025 12:00 PM EDT Office Visit [address] [address] Cheryl Galan DO [address] [place] [address] [phone] 08/01/2025 2:00 PM EST Clinical Support [address] [phone] Kira Bansal RN documented as of this encounter Procedures Procedure Name Priority Date/Time Associated Diagnosis Comments LIPID PANEL, STANDARD Routine 05/12/2024 11:00 AM EDT Elevated lipids documented in this encounter Results * (ABNORMAL) Lipid Panel, Standard (05/12/2024 11:00 AM EDT) Triglycerides 100 <150 mg/dL [facility] Comment:Desirable Triglyceri de: less than 150 mg/dLBorderline High Triglyceride 150-199 mg/dLHigh Triglyceride: 200-499 mg/dLVery High Triglyceride: greater than or equal to 5OO mg/dL Cholesterol 101 <200 mg/dL [facility] Comment:Desirable Cholestero l: less than 200 mg/dLBorderline High Cholesterol: 200-239 mg/dLHigh Cholesterol: greater than 239 mg/dL LDL Cholesterol Calculated 44 <100 mg/dL [facility] Comment:Desirable LDL: less than 100 mg/dLNear Optimal/Above Optimal LDL: 110- 129 mg/dLBorderline High LDL: 130-159 mg/dLHigh LDL: 160-189 mg/dLVery High LDL: greater than or equal to 190 mg/dL HDL Cholesterol 37(L) >40 mg/dL [facility] Comment:Desirable HDL: great er than 40 mg/dL Note: This HDL assay may give artificially low results in patients with liver disease. Blood Venous blood specimen / Unknown 05/12/2024 11:00 AM EDT 05/12/2024 11:00 AM EDT Radha CASEY LAB BLOOD ORDERABLES Final Resu lt [facility] [address] [place] [address] [phone] documented in this encounter Visit Diagnoses Diagnosis Elevated lipids- Primary documented in this encounter Additional Health Concerns Assessment Noted Time PHQ-9 Depression Total Score: 7 03/07/20 24 10:13 AM EDT documented as of this encounter Care Teams Loom Doffer Relationship Specialty Start Date End Date Radha Shah FNP 230 [place] [address] PCP - General Family Medicine 04/21/23 04/25/24 CobbYecenia FNP 230 [place] [address] PCP - General Family Medicine 04/26/24 Colby [place]sch FNP [address] [place] [address] Nurse Practitioner Family Medicine 07/13/23 Candice Ugarte GeotechnicianMapping Specialist 12/27/23 documented as of this encounter
--- OUTSIDE RECORDS SUMMARY | 2025-05-18 10:21 | XMS_ITS | Encounter Summary ---
Author Organization [employer] Address 75 [facility] 7t [place] [address] Care Team Providers Care Pearl Restorer Name Role Phone Marc Nicolas Primary Care Provider Unavail able Radha Shah Primary Care Provider +[phone] Colby [place]sch Unavailable Unavailable [facility] SENIOR PROJECT MANAGER Primary Care Provider [phone] Reason for Visit * Reason Comments Med Refill Encounter Details Date Type Department Care Team (Late st Contact Info) Description 04/08/[address] [facility] MEDICINE 230 [place], [place] [phone] Marc Nicolas AGNP Schizoaffective disorder, depressive type [...] Description 05/22/2025 12:00 PM EDT Office Visit [facility] MEDICINE 230 [place], [place] [phone] Cheryl Galan, DO 230 [place] [address] 08/01/2025 2:00 PM EST Clinical Support [facility] 230 [facility] [place], [place] [phone] Kira Bansal, RN documented as of this encounter Visit Diagnoses Diagnosis Schizoaffective disorder, depressive type (CMS/HCC) Schizoaffective disorder, unspecified condition Mixed anxiety and depressive disorder Dysthymic disorder documented in this encounter Additional Health Concerns Assessment Noted Time PHQ-9 Depression Total Score: 0 04/02/20 2:10 PM EDT documented as of this encounter Care Teams Pearl Restorer Relationship Specialty Start Date End Date Marc Nicolas AGNP PCP - General Family Medicine 10/22/22 04/20/23 [place] [address] PCP - General Family Medicine 04/21/23 04/25/24 Yeaddiss[place]ecenia [place] [address] PCP - General Family Medicine 04/26/24 Colby [place]sch FNP [address] [place] [address] Nurse Practitioner Family Medicine 07/13/23 Candice Ugarte Order EditorFeather Cutting Machine Feeder 12/27/23 documented as of this encounter
--- OUTSIDE RECORDS SUMMARY | 2025-05-18 10:21 | XMS_ITS | Encounter Summary ---
Author Organization [employer] Address 75 [facility] 7t [place] [address] Care Team Providers Care Trimming Operator Name Role Phone Radha Shah THERAPEUTIC ASSISTANT Primary Care Provider [phone] Colby [place]sch THERAPEUTIC ASSISTANT Unavailable Unavailable [facility] THERAPEUTIC ASSISTANT Primary Care Provider [phone] Reason for Visit * Reason Onset Date Comments Results 02/16/2024 Care Coordination 02/16/[address] Kelly joshua telephone call outreached Encounter Details Date Type Department Care Team ([facility] Contact Info) Description 02/16/2024 Telephone [facility] MEDICINE [address] [place] [address] Radha Shah FNP [address] [place] [address] Results; Care Coordination ([id number] Obrien telephone call outreached) Social History Tobacco [...] Date when done: 02/06 Facility: [facility] Please contact pt at [phone] documented in this encounter Plan of Treatment Upcoming Encounters Date Type Department Care Team (Late st Contact Info) Description 05/22/2025 12:00 PM EDT Office Visit [address] [address] Cheryl Galan DO 230 [place] [address] 08/01/2025 2:00 PM EST Clinical Support [facility] [place] [address] Kira Bansal RN documented as of this encounter Visit Diagnoses Not on filedocumented in this encounter Additional Health Concerns Assessment Noted Time PHQ-9 Depression Total Score: 6 12/28/19 24 11:17 AM EDT documented as of this encounter Care Teams Trimming Operator Relationship Specialty Start Date End Date [place] [address] PCP - General Family Medicine 04/21/23 04/25/24 Blue BellYecenia FNP [address] [place] [address] PCP - General Family Medicine 04/26/24 Colby [place]sch FNP [address] [place] [address] Nurse Practitioner Family Medicine 07/13/23 Candice Ugarte Environmental Science ProfessorWorkforce Services Representative 12/27/23 documented as of this encounter
--- OUTSIDE RECORDS SUMMARY | 2025-05-18 10:21 | XMS_ITS | Encounter Summary ---
Author Organization [employer] Address 75 [facility] 7t [place] [address] Care Team Providers Care Dye Range Operator Name Role Phone Colby [place]sch POURER Unavailable Unavailable [facility] Primary Care Provider [phone] Reason for Visit * Reason Onset Date Comments Med Refill 09/29/2024 Encounter Details Date Type Department Care Team ([facility] Contact Info) Description 09/29/2024 Telephone [facility] MEDICINE 230 [place], [place] [phone] [facility] 230 [place] [address] Med Refill Social History Tobacco Use Types [...] 50 MG tablet To be sent to: [facility] documented in this encounter Plan of Treatment Upcoming Encounters Date Type Department Care Team (Late st Contact Info) Description 05/22/2025 12:00 PM EDT Office Visit [facility] MEDICINE 230 [place] [address] Cheryl Galan DO [address] [place], [place] [phone] 08/01/2025 2:00 PM EST Clinical Support [facility] MEDICINE 230 [place] [address] Kira Bansal RN documented as of this encounter Visit Diagnoses Not on filedocumented in this encounter Additional Health Concerns Assessment Noted Time PHQ-9 Depression Total Score: 7 03/07/20 24 10:13 AM EDT documented as of this encounter Care Teams Dye Range Operator Relationship Specialty Start Date End Date Yecenia Frias FNP [address] [place] [address] PCP - General Family Medicine 04/26/24 Colby [place]sch FNP Nurse Practitioner Family Medicine 07/13/23 Candice Ugarte Auto Body Builder ApprenticeCompensation Coordinator 12/27/23 documented as of this encounter
--- OUTSIDE RECORDS SUMMARY | 2025-05-18 10:21 | XMS_ITS | Encounter Summary ---
Author Organization [employer] Address 75 [facility] 7t [place] [address] Care Team Providers Care Ell Tutor Name Role Phone Marc Nicolas Primary Care Provider Unavail able Radha Shah Primary Care Provider [phone] Colby [place]sch Unavailable Unavailable [facility] PROJECT MANAGEMENT DIRECTOR Primary Care Provider [phone] Reason for Visit * Reason Onset Date Comments Med Refill 03/10/2023 Encounter Details Date Type Department Care Team ([facility] Contact Info) Description 03/10/[address] [phone] Marc Nicolas AGNP Med Refill Social History [...] Upcoming Encounters Date Type Department Care Team ([facility] Contact Info) Description 05/22/2025 12:00 PM EDT Office Visit [facility] [address] [place] [address] [place] [address] Cheryl Galan DO 230 [place], [place] [phone] 08/01/2025 2:00 PM EST Clinical Support [facility] MEDICINE 230 [place], [place] [phone] Kira Bansal, MEREDITH documented as of this encounter Visit Diagnoses Not on filedocumented in this encounter Additional Health Concerns Assessment Noted Time PHQ-9 Depression Total Score: 13 023 3:27 PM EDT documented as of this encounter Care Teams Ell Tutor Relationship Specialty Start Date End Date Marc Nicolas AGNP PCP - General Family Medicine 10/22/22 04/20/23 Radha Shah FNP [address] [place] [address] PCP - General Family Medicine 04/21/23 04/25/24 [place]Yecenia FNP [address] [place] [address] PCP - General Family Medicine 04/26/24 Colby [place]sch FNP [address] [place] [address] Nurse Practitioner Family Medicine 07/13/23 Candice Ugarte Derrick ManChief Underwriter 12/27/23 documented as of this encounter
--- OUTSIDE RECORDS SUMMARY | 2025-05-18 10:21 | XMS_ITS | Encounter Summary ---
Author Organization [employer] Address 75 [facility] 7t [place] [address] Care Team Providers Care Bilingual Recruiter Name Role Phone Marc Nicolas Primary Care Provider Unavail able Radha Shah Primary Care Provider [phone] Colby [place]sch Unavailable Unavailable [facility] ENTRY LEVEL CIVIL ENGINEER Primary Care Provider [phone] Reason for Visit * Reason Onset Date Comments Med Refill 04/09/2023 Encounter Details Date Type Department Care Team (Late st Contact Info) Description 04/09/2023 Refill [facility] MEDICINE 230 [place] [address] Marc Nicolas AGNP Mixed anxiety and depressive [...] listed in EHR, no record. Spoke with [facility] pharmacy, she is listed as Romaine Rodriguez [...] (KlonoPIN) 0.5 MG tablet Please sent to [facility] [place], [place] - [address] [place] [address] documented in this encounter Plan of Treatment Upcoming Encounters Date Type Department Care Team (Late st Contact Info) Description 05/22/2025 12:00 PM EDT Office Visit [address] [address] Cheryl Galan DO [address] [place] [address] 08/01/2025 2:00 PM EST Clinical Support [address] [address] Kira Bansal, MEREDITH documented as of this encounter Visit Diagnoses Diagnosis Mixed anxiety and depressive disorder Dysthymic disorder documented in this encounter Additional Health Concerns Assessment Noted Time PHQ-9 Depression Total Score: 0 04/02/20 2:10 PM EDT documented as of this encounter Care Teams Bilingual Recruiter Relationship Specialty Start Date End Date Marc Nicolas AGNP PCP - General Family Medicine 10/22/22 04/20/23 Radha Shah FNP [address] [place] [address] PCP - General Family Medicine 04/21/23 04/25/24 Yecenia Frias FNP [address] [place] [address] PCP - General Family Medicine 04/26/24 Colby [place]sch FNP [address] [place] [address] Nurse Practitioner Family Medicine 07/13/23 Candice Ugarte Animal Shelter WorkerSenior Medical Director 12/27/23 documented as of this encounter
--- OUTSIDE RECORDS SUMMARY | 2025-05-18 10:21 | XMS_ITS | Encounter Summary ---
Author Organization [employer] Address 75 [facility] 7t [place] [address] Care Team Providers Care Embedded Processor Name Role Phone Marc Nicolas Primary Care Provider Unavail able Radha Shah INCIDENT HANDLER Primary Care Provider [phone] Colby [place]sch Unavailable Unavailable [facility] INCIDENT HANDLER Primary Care Provider [phone] Reason for Visit * Reason Comments Med Refill Encounter Details Date Type Department Care Team (Late Contact Info) Description 04/07/2023 Refill [facility] MED [facility] PEDS [address] [place], [place] [phone] Marc Nicolas AGNP Multiple joint pain Social [...] Upcoming Encounters Date Type Department Care Team ([facility] Contact Info) Description 05/22/2025 12:00 PM EDT Office Visit [facility] MEDICINE 230 [place], [place] [phone] Cheryl Galan DO 230 [place], [place] [phone] 08/01/2025 2:00 PM EST Clinical Support [facility] MEDICINE [address] [place] [address] Kira Bansal, MEREDITH documented as of this encounter Visit Diagnoses Diagnosis Multiple joint pain Pain in joint, multiple sites documented in this encounter Additional Health Concerns Assessment Noted Time PHQ-9 Depression Total Score: 0 04/02/20 2:10 PM EDT documented as of this encounter Care Teams Embedded Processor Relationship Specialty Start Date End Date Marc Nicolas AGNP PCP - General Family Medicine 10/22/22 04/20/23 Radha Shah FNP [address] [place] [address] PCP - General Family Medicine 04/21/23 04/25/24 AltagraciaYecenia whipple FNP [address] [place] [address] PCP - General Family Medicine 04/26/24 Colby [place]sch FNP [address] [place] [address] Nurse Practitioner Family Medicine 07/13/23 Candice Ugarte Cobol DeveloperRespiratory Assistant 12/27/23 documented as of this encounter
--- OUTSIDE RECORDS SUMMARY | 2025-05-18 10:21 | XMS_ITS | Encounter Summary ---
Author Organization [employer] Address 75 [facility] 7t [place] [address] Care Team Providers Care Fitness Sales Consultant Name Role Phone Colby Hirsch CANE FLUME CHUTE OPERATOR Unavailable Unavailable [facility] Primary Care Provider [phone] Reason for Visit * Reason Comments Med Refill Encounter Details Date Type Department Care Team ([facility] st Contact Info) Description 10/31/2024 Refill [facility] MEDICINE 230 [place], [place] [phone] [facility] 230 [place] [address] Type 2 diabetes mellitus without complication, with long-term current use of insulin ([facility]) Social History Tobacco Use Types Packs/Day Years [...] Description 05/22/2025 12:00 PM EDT Office Visit [address] [address] Cheryl Galan DO [address] [place] [address] 08/01/2025 2:00 PM EST Clinical Support [address] [address] Kira Bansal, MEREDITH documented as of this encounter Visit Diagnoses Diagnosis Type 2 diabetes mellitus without complication, with long-term current use of insulin ([facility]) documented in this encounter Additional Health Concerns Assessment Noted Time PHQ-9 Depression Total Score: 0 10/24/19 25 1:15 PM EST documented as of this encounter Care Teams Fitness Sales Consultant Relationship Specialty Start Date End Date Yecenia Frias FNP [address] [place] [address] PCP - General Family Medicine 04/26/24 Colby Hirsch FNP Nurse Practitioner Family Medicine 07/13/23 Candice Ugarte Test Facility EngineerBreast Worker 12/27/23 documented as of this encounter
--- OUTSIDE RECORDS SUMMARY | 2025-05-18 10:21 | XMS_ITS | Encounter Summary ---
Author Organization [employer] Address 75 [facility] 7t [place] [address] Care Team Providers Care Retail Store Clerk Name Role Phone Marc Nicolas Primary Care Provider Unavail able Radha Shah DIRECTOR PUBLIC SERVICE Primary Care Provider [phone] Colby Hirsch Unavailable Unavailable [facility] DIRECTOR PUBLIC SERVICE Primary Care Provider [phone] Reason for Visit * Reason Comments Med Refill Encounter Details Date Type Department Care Team ([facility] Contact Info) Description 03/17/2023 Refill [facility] MEDICINE 230 [place] [address] Marc Nicolas AGNP Mixed anxiety and depressive [...] Upcoming Encounters Date Type Department Care Team ([facility] Contact Info) Description 05/22/2025 12:00 PM EDT Office Visit [facility] MED[facility] 230 [place], [place] [phone] Cheryl Galan DO [address] [place], [place] [phone] 08/01/2025 2:00 PM EST Clinical Support [facility] [address] [facility] [place] [address] Kira Bansal, MEREDITH documented as of this encounter Visit Diagnoses Diagnosis Mixed anxiety and depressive disorder Dysthymic disorder documented in this encounter Additional Health Concerns Assessment Noted Time PHQ-9 Depression Total Score: 13 023 3:27 PM EDT documented as of this encounter Care Teams Retail Store Clerk Relationship Specialty Start Date End Date Marc Nicolas AGNP PCP - General Family Medicine 10/22/22 04/20/23 Rad[place] [address] PCP - General Family Medicine 04/21/23 04/25/24 [place] [address] PCP - General Family Medicine 04/26/24 Colby Hirsch FNP [address] [place] [address] Nurse Practitioner Family Medicine 07/13/23 Candice Ugarte Language TherapistVarying Exceptionalities Teacher 12/27/23 documented as of this encounter
--- OUTSIDE RECORDS SUMMARY | 2025-05-18 10:21 | XMS_ITS | Encounter Summary ---
Author Organization [employer] Address [address] [facility] [address] 7t [place] [address] Care Team Providers Care Ergonomics Technician Name Role Phone Radha Shah TENTS ASSEMBLER Primary Care Provider +[phone] Colby Hirsch TENTS ASSEMBLER Unavailable Unavailable [facility] TENTS ASSEMBLER Primary Care Provider [phone] Reason for Visit * Reason Comments Med Refill Encounter Details Date Type Department Care Team (Late st Contact Info) Description 06/09/2023 Refill [facility] MEDICINE 230 [place] [address] Marilee Buckner FNP Multiple joint pain; Mixed [...] 05/22/2025 12:00 PM EDT Office Visit [address] [address] Cheryl Galan DO [address] [place] [address] 08/01/2025 2:00 PM EST Clinical Support [address] [address] Kira Bansal, MEREDITH documented as of this encounter Visit Diagnoses Diagnosis Multiple joint pain Pain in joint, multiple sites Mixed anxiety and depressive disorder Dysthymic disorder documented in this encounter Additional Health Concerns Assessment Noted Time PHQ-9 Depression Total Score: 18 023 11:25 AM EDT documented as of this encounter Care Teams Ergonomics Technician Relationship Specialty Start Date End Date Radha Shah FNP [address] [place] [address] PCP - General Family Medicine 04/21/23 04/25/24 Yecenia Frias FNP [address] [place] [address] PCP - General Family Medicine 04/26/24 Colby Hirsch FNP [address] [place] [address] Nurse Practitioner Family Medicine 07/13/23 Candice Ugarte Card ReaderPediatric Rn 12/27/23 documented as of this encounter
--- OUTSIDE RECORDS SUMMARY | 2025-05-18 10:21 | XMS_ITS | Encounter Summary ---
Author Organization [employer] Address 75 [facility] 7t [place] [address] Care Team Providers Care Smoking Tobacco Cutter Operator Name Role Phone Radha Shah CORONER'S JUROR Primary Care Provider +[phone] Colby Hirsch Unavailable Unavailable [facility] CORONER'S JUROR Primary Care Provider [phone] Reason for Visit * Reason Comments Med Refill Encounter Details Date Type Department Care Team (Late st Contact Info) Description 06/28/2023 Refill [facility] [address] [place] [address] Radha Shah FNP 230 [place] [address] Schizoaffective disorder, depressive type (CMS/HCC) Social History [...] Description 05/22/2025 12:00 PM EDT Office Visit [address] [address] Cheryl Galan DO [address] [place] [address] 08/01/2025 2:00 PM EST Clinical Support [address] [address] Kira Bansal, MEREDITH documented as of this encounter Visit Diagnoses Diagnosis Schizoaffective disorder, depressive type (CMS/HCC) Schizoaffective disorder, unspecified condition documented in this encounter Additional Health Concerns Assessment Noted Time PHQ-9 Depression Total Score: 6 06/15/20 23 10:23 AM EDT documented as of this encounter Care Teams Smoking Tobacco Cutter Operator Relationship Specialty Start Date End Date Radha Shah FNP [address] [place] [address] PCP - General Family Medicine 04/21/23 04/25/24 Yecenia Frias FNP [address] [place] [address] PCP - General Family Medicine 04/26/24 Colby Hirsch FNP 230 [place] [address] Nurse Practitioner Family Medicine 07/13/23 Candice Ugarte Fine SanderHay Rake Operator 12/27/23 documented as of this encounter
--- OUTSIDE RECORDS SUMMARY | 2025-05-18 10:21 | XMS_ITS | Encounter Summary ---
Author Organization [employer] Address 75 [facility] 7t [place] [address] Care Team Providers Care Head Counselor Name Role Phone Radha Shah EXHAUST AND MUFFLER REPAIRER Primary Care Provider +[phone] Colby Hirsch Unavailable Unavailable [facility] Primary Care Provider [phone] Reason for Visit * Reason Comments Med Refill Encounter Details Date Type Department Care Team (Late st Contact Info) Description 07/02/[address] [facility] MEDICINE 230 [place] [address] Radha Shah FNP 230 [place] [address] Multiple joint pain Social History Tobacco Use [...] Description 05/22/2025 12:00 PM EDT Office Visit [address] [address] Cheryl Galan DO [address] [place] [address] 08/01/2025 2:00 PM EST Clinical Support [address] [address] Kira Bansal, MEREDITH documented as of this encounter Visit Diagnoses Diagnosis Multiple joint pain Pain in joint, multiple sites documented in this encounter Additional Health Concerns Assessment Noted Time PHQ-9 Depression Total Score: 6 06/15/20 23 10:23 AM EDT documented as of this encounter Care Teams Head Counselor Relationship Specialty Start Date End Date Radha Shah FNP [address] [place] [address] PCP - General Family Medicine 04/21/23 04/25/24 Yecenia Frias FNP [address] [place] [address] PCP - General Family Medicine 04/26/24 Colby Hirsch FNP 230 [place] [address] Nurse Practitioner Family Medicine 07/13/23 Candice Ugarte Branch Account ExecutiveGlobal Climate Change Researcher 12/27/23 documented as of this encounter
--- OUTSIDE RECORDS SUMMARY | 2025-05-18 10:21 | XMS_ITS | Encounter Summary ---
Author Organization [employer] Address 75 [facility] 7t [place] [address] Care Team Providers Care Rejector Name Role Phone Radha Shah INSTALLATION SUPERINTENDENT Primary Care Provider +3 Colby Hirsch Unavailable Unavailable [facility] Primary Care Provider [phone] Reason for Visit * Reason Comments Med Refill Encounter Details Date Type Department Care Team (Late st Contact Info) Description 06/30/2023 Refill [facility] MEDICINE 230 [place] [address] Radha Shah FNP [address] [place] [address] Multiple joint pain Social History Tobacco Use [...] Description 05/22/2025 12:00 PM EDT Office Visit [address] [address] Cheryl Galan DO [address] [place] [address] 08/01/2025 2:00 PM EST Clinical Support [address] [address] Kira Bansal, MEREDITH documented as of this encounter Visit Diagnoses Diagnosis Multiple joint pain Pain in joint, multiple sites documented in this encounter Additional Health Concerns Assessment Noted Time PHQ-9 Depression Total Score: 6 06/15/20 23 10:23 AM EDT documented as of this encounter Care Teams Rejector Relationship Specialty Start Date End Date Radha Shah FNP [address] [place] [address] PCP - General Family Medicine 04/21/23 04/25/24 Yecenia Frias FNP [address] [place] [address] PCP - General Family Medicine 04/26/24 Colby Hirsch FNP 230 [place] [address] Nurse Practitioner Family Medicine 07/13/23 Candice Ugarte Surveyor Instrument AssistantUnemployment Insurance Director 12/27/23 documented as of this encounter
--- OUTSIDE RECORDS SUMMARY | 2025-05-18 10:21 | XMS_ITS | Encounter Summary ---
Author Organization [employer] Address 75 [facility] 7t [place] [address] Care Team Providers Care Vice President Of Customer Service Name Role Phone Colby Hirsch BARREL COATER Unavailable Unavailable [facility] Primary Care Provider [phone] Encounter Details Date Type Department Care Team ([facility] st Contact Info) Description 08/11/2024 Telephone [facility] MEDICINE 230 [place] [address] [facility] 230 [place] [address] Social History Tobacco Use Types Packs/Day Years [...] Description 05/22/2025 12:00 PM EDT Office Visit [address] [address] Cheryl Galan DO [address] [place] [address] 08/01/2025 2:00 PM EST Clinical Support [address] [address] Kira Bansal RN documented as of this encounter Visit Diagnoses Not on filedocumented in this encounter Additional Health Concerns Assessment Noted Time PHQ-9 Depression Total Score: 7 03/07/20 24 10:13 AM EDT documented as of this encounter Care Teams Vice President Of Customer Service Relationship Specialty Start Date End Date Yecenia Frias FNP [address] [place] [address] PCP - General Family Medicine 04/26/24 Colby Hirsch FNP Nurse Practitioner Family Medicine 07/13/23 Candice Ugarte [employer] Special Education TeacherMorale Officer 12/27/23 documented as of this encounter
--- OUTSIDE RECORDS SUMMARY | 2025-05-18 10:21 | XMS_ITS | Encounter Summary ---
Author Organization [employer] Address 75 [facility] 7t [place] [address] Care Team Providers Care Rooming House Operator Name Role Phone Marc Nicolas Primary Care Provider Unavail able Radha Shah Primary Care Provider [phone] Colby Hirsch Unavailable Unavailable [facility] SLOT ATTENDANT Primary Care Provider [phone] Reason for Visit * Reason Onset Date Comments Med Refill 03/16/2023 Encounter Details Date Type Department Care Team (Late st Contact Info) Description 03/16/2023 Telephone [facility] MEDICINE 230 [place], [place] [phone] Marc Nicolas AGNP Med Refill Social History [...] 03/16/2023 3:56 PM EDT Pt scheduled for DISABILITY CASE MANAGER RV 03/17/23 @ 10am. Tramadol refill due 03/19/23, Clonazepam refill due 03/18/23.Will forward request to PCP after DISABILITY CASE MANAGER appt 03/17/23. * Telephone Encounter - Natividad Pate - 03/16/2023 3:36 PM EDT Tc from pt requesting medication refill on traMADol (Ultram) 50 MG tablet and clonazePAM (KlonoPIN)0.5 MG tablet documented in this encounter Plan of Treatment Upcoming Encounters Date Type Department Care Team (Late st Contact Info) Description 05/22/2025 12:00 PM EDT Office Visit [address] [address] Cheryl Galan DO [address] [place] [address] 08/01/2025 2:00 PM EST Clinical Support [address] [address] Kira Bansal, MEREDITH documented as of this encounter Visit Diagnoses Not on filedocumented in this encounter Additional Health Concerns Assessment Noted Time PHQ-9 Depression Total Score: 13 07/ 023 3:27 PM EDT documented as of this encounter Care Teams Rooming House Operator Relationship Specialty Start Date End Date Marc Nicolas AGNP PCP - General Family Medicine 10/22/22 04/20/23 Radha Shah FNP [address] [place] [address] PCP - General Family Medicine 04/21/23 04/25/24 Yecenia Frias FNP [address] [place] [address] PCP - General Family Medicine 04/26/24 Colby Hirsch FNP 230 [place] [address] Nurse Practitioner Family Medicine 07/13/23 Candice Ugarte Caterers HelperV Belt Finisher 12/27/23 documented as of this encounter
--- OUTSIDE RECORDS SUMMARY | 2025-05-18 10:21 | XMS_ITS | Encounter Summary ---
Author Organization [employer] Address 75 [facility] 7t [place] [address] Care Team Providers Care Assurance Sourcing Manager Name Role Phone Marc Nicolas Primary Care Provider Unavail able Radha Shah Primary Care Provider +3 Colby Hirsch Unavailable Unavailable [facility] TRUCK RENTAL SERVICE ATTENDANT Primary Care Provider [phone] Reason for Visit * Reason Comments Med Refill Encounter Details Date Type Department Care Team (Late st Contact Info) Description 03/10/2023 Refill [facility] 230 [place] [address] Marc Nicolas AGNP Mixed anxiety and depressive [...] Will send to PCP on 03/18/23. Has BRAKE REPAIRER scheduled 03/17/23. * Telephone Encounter - Chika Low - 03/15/2023 9:14 AM EDT Tc from patient requesting a med refill for medication tramadol [address] Nicolas documented in this encounter Plan of Treatment Upcoming Encounters Date Type Department Care Team (Late st Contact Info) Description 05/22/2025 12:00 PM EDT Office Visit [address] [address] Cheryl Galan DO [address] [place] [address] 08/01/2025 2:00 PM EST Clinical Support [address] [address] Kira Bansal RN documented as of this encounter Visit Diagnoses Diagnosis Mixed anxiety and depressive disorder Dysthymic disorder Multiple joint pain Pain in joint, multiple sites documented in this encounter Additional Health Concerns Assessment Noted Time PHQ-9 Depression Total Score: 13 03/05/ 023 3:27 PM EDT documented as of this encounter Care Teams Assurance Sourcing Manager Relationship Specialty Start Date End Date Marc Nicolas AGNP PCP - General Family Medicine 10/22/22 04/20/23 Radha Shah FNP [address] [place] [address] PCP - General Family Medicine 04/21/23 04/25/24 Yecenia Frias FNP [address] [place] [address] PCP - General Family Medicine 04/26/24 Colby Hirsch FNP 230 [place] [address] Nurse Practitioner Family Medicine 07/13/23 Candice Ugarte Facial OperatorGlass Bulb Machine Adjuster 12/27/23 documented as of this encounter
--- OUTSIDE RECORDS SUMMARY | 2025-05-18 10:21 | XMS_ITS | Encounter Summary ---
Author Organization [employer] Address 75 [facility] 7t [place] [address] Care Team Providers Care Law Firm Administrator Name Role Phone Radha Shah TEACHER Primary Care Provider +[phone] Colby Hirsch TEACHER Unavailable Unavailable [facility] TEACHER Primary Care Provider [phone] Reason for Visit * Reason Comments Med Refill Encounter Details Date Type Department Care Team (Late st Contact Info) Description 06/16/2023 Refill [facility] MEDICINE 230 [place] [address] Marc Nicolas AGNP Pain Social History Tobacco [...] Description 05/22/2025 12:00 PM EDT Office Visit [address] [address] Cheryl Galan DO [address] [place] [address] 08/01/2025 2:00 PM EST Clinical Support [address] [address] Kira Bansal RN documented as of this encounter Visit Diagnoses Diagnosis Pain Generalized pain documented in this encounter Additional Health Concerns Assessment Noted Time PHQ-9 Depression Total Score: 6 06/15/20 23 10:23 AM EDT documented as of this encounter Care Teams Law Firm Administrator Relationship Specialty Start Date End Date Radha Shah FNP [address] [place] [address] PCP - General Family Medicine 04/21/23 04/25/24 [place] FNP [address] [place] [address] PCP - General Family Medicine 04/26/24 Colby Hirsch FNP [address] [place] [address] Nurse Practitioner Family Medicine 07/13/23 Candice Ugarte TreasurerSod Farmer 12/27/23 documented as of this encounter
== END 2025-05-18 10:30 | disposition home or self-care (01) ==
LOC: HO.HGS 09:26
PROVIDERS: Visit Provider Surgery
DX: N63.23 Unspecified lump in the left breast, lower outer quadrant (principal)
CPT/HCPCS: 99214

== ENCOUNTER → 2025-05-18 09:25 | Outpatient (BNVA) | payer MEDICAID, SELFPAY | PROVIDERS: Visit Provider Surgery | DX: N63.23 Unspecified lump in the left breast, lower outer quadrant (principal) | CPT/HCPCS: 99212 ==

== ENCOUNTER 2025-05-21 13:36 | Outpatient (AMB) | payer MEDICAID, SELFPAY ==
--- OUTSIDE RECORDS SUMMARY | 2024-01-26 11:20 | XMS_ITS ---
Author Organization [facility] Address [address] [place] [phone] Care Team Providers Care Cartographic Designer Name Role Phone Radha Rodriguez Primary Care Provider Jaylan Clancy Unavailable [phone] REASON FOR VISIT Patient presents today for FATTY LIVER Encounters Encounter Location Date Provider Diagnosis [facility] [address] [place] [phone] 01/26/2024 Jaylan Neal Plan Of Treatment No Information Progress Notes * MADHU ABASDOB: 0 (44 yo F)Acc No.[id number]:01/26/2024 Progress Notes Patient: HARMAN MCKEON Provider: Geovani Neal MD :1980 A ge:43 Y S ex:Female Date:01/26/2024 Address:[address] [place], [place] [phone] Pcp:JACINTO Ramos Subjective: * Chief Complaints: * [...] Date: 01/26/2024 Generated for Ashlee perez/Lisa/eTransmitting on: 05/21/2025 03:13 PM EDT
--- OUTSIDE RECORDS SUMMARY | 2024-06-20 09:20 | XMS_ITS ---
Author Organization [facility] Address [address] [place] [address] Care Team Providers Care Wrecking Crane Engine Operator Name Role Phone Radha Rodriguez Primary Care Provider Jaylan Clancy [phone] REASON FOR VISIT FATTY LIVER Encounters Encounter Location Date Provider Diagnosis [facility] [address] [place] [address] 06/20/2024 Jaylan Neal Plan Of Treatment No Information Progress Notes * ABA LEUNGSDOB: 0 (44 yo F)Acc No.[id number]:06/20/2024 Progress Notes Patient: HARMAN MCKEON Provider: Geovani Neal MD :1980 A ge:43 Y S ex:Female Date:06/20/2024 Address:[address] [place], [place] [phone] Pcp:JACINTO Ramos Subjective: * Chief Complaints: * [...] MD Date: Generated for Ashlee perez/Lisa/eTransmitting on: 0 05/21/2025 03:13 PM EDT
--- OUTSIDE RECORDS SUMMARY | 2024-06-20 09:20 | XMS_ITS ---
Author Organization [facility] Address [address] [place] [address] Care Team Providers Care Tourist Adviser Name Role Phone Radha Rodriguez Primary Care Provider Jaylan Clancy Unavailable [phone] REASON FOR VISIT Patient presents today for FATTY LIVER Encounters Encounter Location Date Provider Diagnosis [facility] [address] [place] [address] 06/20/2024 Jaylan Neal Plan Of Treatment No Information Progress Notes * MADHU JAZLYNHAYLEESDOB: 0 (44 yo F)Acc No.[id number]:06/20/2024 Progress Notes Patient: HARMAN MCKEON Provider: Geovani Neal MD :1980 A ge:43 Y S ex:Female Date:06/20/2024 Address:[address] [place], [place] [phone] Pcp:JACINTO Ramos Subjective: * Chief Complaints: * [...] 1 Generated for Ashlee perez/Lisa/eTransmitting on: 0 05/21/2025 03:12 PM EDT
--- NOTE | 2025-05-21 13:50 | A.OFFVIS_ITS ---
Vital Signs 05/21/25 13:54 Height 5 ft Weight 194 lb 0.108 oz BMI 37.9 BP 148/88 H Blood Pressure Location Rt brachial Position Sitting Pulse 80 Pulse Source Pulse Oximeter Pulse Oximetry (%) 97 Oxygen Delivery Method Room Air Intake Visit Reasons: Type 2 dm Intake Note: Patient presents today for a follow-up on Type 2 Diabetes Mellitus: Last Diabetic eye exam was on: 08/2024 Last Podiatry exam was on: Patient does not see a Raiser Helper Most recent HbA1c: 6.3%, 05/21/2025 Random Glucose- 113 mg/dL, Today Brokerage Branch Manager Required: No Accompanied by: Self / Same As Patient Allergies pineapple Allergy (Severe, Verified 05/21/25 13:51) tongue swelling diphenhydramine (From BENADRYL) Allergy (Intermediate, Verified 05/21/25 13:51) HALLUCINATIONS morphine (MORPHINE) Allergy (Intermediate, Verified 05/21/25 13:51) DIAPHORESIS; TACHYCARDIA, palpitations, sweating, tingling of hands and face quetiapine (From SEROQUEL) Allergy (Intermediate, Verified 05/21/25 13:51) PALPITATIONS seafood Allergy (Intermediate, Verified 05/21/25 13:51) redness/itching tomato Allergy (Intermediate, Verified 05/21/25 13:51) Blister trazodone (TRAZODONE) Allergy (Intermediate, Verified 05/21/25 13:51) GI Upset, HEART RACING, palpitations prednisone (PREDNISONE) Adverse Reaction (Intermediate, Verified 05/21/25 13:51) HEART RACES HPI HPI Type 2 dm: Details: Patient is a 44-year-old female with a significant past medical history of cardiomyopathy, hypertension, hyperlipidemia and type 2 diabetes presenting diabetes. Phone industrial gas servicer: [employer] [phone] Endo: She is currently taking metformin 500 mg nightly And ozempic 0.25 mg weekly -No side effects from the ozempic. No weight loss effects. - Trulicity was started by PCP due to insurance issues. It is not effectively treating her blood sugars but she states that she gets a headache with it, dizziness and nausea. She feels sick with this medication. -recently started again on Mounjaro and did not tolerate this medication. States that it was causing significant GI discomfort. Stopped the medication felt better. -Victoza but has been unable to get this at local pharmacies. -in the past tried glipizide but did not tolerate this. -does not tolerate higher doses of metformin. She is not on an BERTHA-inhibitor. Cholesterol is managed with atorvastatin. Follows with Ophthalmology and due for eye exam. no known hx of retinopathy. Does not Follow with Podiatry. CV: Blood pressure today is 112/88. She was on lisinopril 5 mg and metoprolol but this was stopped a year ago. she is compliant with atorvastatin 40 mg nightly. Last LDL 71. PFSH Medical History Cardiomyopathy T2DM (type 2 diabetes mellitus) Hypertrophic scar of upper arm Epidermal inclusion cyst Nephrolithiasis Transaminitis GERD (gastroesophageal reflux disease) Anxiety Migraines Fatty liver Elevated cholesterol Asthma Vitamin D deficiency HLD (hyperlipidemia) HTN (hypertension) Diabetes mellitus Surgical History History of surgical removal of skin lesion (08/27/22) H/O lithotripsy History of local excision of skin lesion History of hysterectomy (~2011) Family History Father Heart disease Mother No problems noted. Social History Are you a primary career technology teacher to a significant other at home: No Do you presently have visiting nurse or other home services: No Alcohol intake: never Patient Tobacco Use Status: Never used Tobacco Second Hand Smoke Exposure: No Physical Exam Vital Signs: Last Vital Signs Pulse 80 05/21/25 13:54 BP 148/88 H 05/21/25 13:54 Pulse Ox 97 05/21/25 13:54 Oxygen Delivery Method Room Air 05/21/25 13:54 BMI result Body Mass Index 37.9 Const Orientation/consciousness: patient oriented x3 HEENT Ears: hearing grossly normal bilaterally Neck Thyroid: Thyroid normal Lymphatic: no lymphadenopathy noted Resp Auscultation: clear to auscultation bilaterally Cardio Rate: regular rate Rhythm: regular rhythm Heart sounds: S1 normal heart sound present and S2 normal heart sound present Skin General skin exam: no rashes or lesions noted Neuro General: patient oriented x3, gait normal and no focal motor deficits Results AMB Hemoglobin A1c AMB Hemoglobin A1c 6.3 % Last Edit by TAQUERIA Chairez on 05/21/25 14:23 Results Reviewed Results Reviewed: Laboratory Last Values Glucose (Clinic) 113 mg/dL (60-115) 05/21/25 13:58 Laboratory Tests 01/01/25 03/13/25 14:03 13:20 Creatinine 0.69 Estimated GFR > 60 Random Glucose 132 H Hemoglobin A1c % 5.7 AST 35 H ALT 27 Assessment & Plan Assessment & Plan (1) Controlled type 2 diabetes mellitus: Code(s): E11.9 - Type 2 diabetes mellitus without complications Category: Medical Plan: We will switch to Ozempic. Discussed risks and benefits and adverse effects of this medication. Continue metformin 500 mg daily. (2) Severe obesity (BMI 35.0-39.9) with comorbidity: Code(s): E66.01 - Morbid (severe) obesity due to excess calories Category: Medical Plan: Encouraged diet and weight loss. (3) HTN (hypertension): Code(s): I10 - Essential (primary) hypertension Category: Medical Qualifiers: Hypertension type: unspecified Qualified Code(s): I10 - Essential (primary) hypertension Plan: will restart metoprolol at 12.5 mg overdue to see cards. advised to schedule advised to f/u with pcp Orders: Orders AMB Hemoglobin A1c Today E11.9 - Type 2 diabetes mellitus without complications Comprehensive Met. Panel Today E11.9 - Type 2 diabetes mellitus without complications, E66.01 - Morbid (severe) obesity due to excess calories, I10 - Essential (primary) hypertension Hemoglobin A1c Today E11.9 - Type 2 diabetes mellitus without complications, E66.01 - Morbid (severe) obesity due to excess calories, I10 - Essential (primary) hypertension, R73.01 - Impaired fasting glucose Microalbumin, Random (w Creat) Today E11.9 - Type 2 diabetes mellitus without complications, E66.01 - Morbid (severe) obesity due to excess calories, I10 - Essential (primary) hypertension Referrals Podiatry Referral E11.9 - Type 2 diabetes mellitus without complications, L60.2 - Onychogryphosis Medications: New semaglutide (Ozempic) 0.5 mg (0.736 mL) subcut QWEEK 3 mL 3RF metoprolol succinate ER 12.5 mg (1/2 x 25 mg) PO DAILY 45 tabs 2RF 90 days Discontinued semaglutide (Ozempic) for 4 weeks; then increase to 0.5 mg every week (takes on Fridays) Discontinued Reason: Doctor's Order 0.25 mg (0.368 mL) subcut QWEEK 3 mL 3RF Coding Level of Care Code Est Pt Level 4 (25999) Complex EM visit Add On G2211 Diagnoses Controlled type 2 diabetes mellitus E11.9 Severe obesity (BMI 35.0-39.9) with comorbidity E66.01 Hypertension, unspecified type I10 Hypertension type: unspecified
[2025-05-21 13:54] VITALS: BP 148/88; PULSE 80; O2SAT 97; BMI 37.9
[2025-05-21 14:04] LABS: Glucose, Whole Blood 113 mg/dL (60-115)
--- OUTSIDE RECORDS SUMMARY | 2025-05-21 15:12 | XMS_ITS | Encounter Summary ---
Author Organization [employer] Address [address] [facility] [address] [place] [address] Care Team Providers Care Funeral Service Licensee Name Role Phone Radha Shah FARM FACILITY MANAGER Primary Care Provider + Colby Hirsch Unavailable Unavailable [facility] Primary Care Provider [phone] Reason for Visit * Reason Comments Med Refill Encounter Details Date Type Department Care Team (Late st Contact Info) Description 11/24/2023 Refill [facility] [address] [place] [address] Radha Shah FNP [address] [place] [address] Multiple joint pain Social History Tobacco Use [...] Description 05/22/2025 12:00 PM EDT Office Visit [address] [address] Cheryl Galan DO [address] [place] [address] 08/01/2025 2:00 PM EST Clinical Support [address] [address] Kira Bansal, MEREDITH documented as of this encounter Visit Diagnoses Diagnosis Multiple joint pain Pain in joint, multiple sites documented in this encounter Additional Health Concerns Assessment Noted Time PHQ-9 Depression Total Score: 8 09/02/19 24 11:12 AM EST documented as of this encounter Care Teams Funeral Service Licensee Relationship Specialty Start Date End Date Radha Shah FNP [address] [place] [address] PCP - General Family Medicine 04/21/23 04/25/24 Yecenia Frias FNP [address] [place] [address] PCP - General Family Medicine 04/26/24 Colby Hirsch FNP [address] [place] [address] Nurse Practitioner Family Medicine 07/13/23 Candice Ugarte Him AnalystChild Therapist 12/27/23 documented as of this encounter
--- OUTSIDE RECORDS SUMMARY | 2025-05-21 15:12 | XMS_ITS | Encounter Summary ---
Author Organization [employer] Address [address] [place] [address] Care Team Providers Care Cork Compounder Name Role Phone Marc Nicolas Primary Care Provider Unavail able Radha Shah STOCK TURNER Primary Care Provider [phone] Colby Hirsch Unavailable Unavailable [facility] STOCK TURNER Primary Care Provider [phone] Reason for Visit * Reason Onset Date Comments Referral 01/26/2023 Encounter Details Date Type Department Care Team (Late st Contact Info) Description 01/26/2023 Telephone [facility] [address] [place] [address] Marc Nicolas AGNP Referral Social History Tobacco [...] Description 05/22/2025 12:00 PM EDT Office Visit [facility] [address] [place] [address] Cheryl Galan DO [address] [place] [address] 08/01/2025 2:00 PM EST Clinical Support [facility] [address] [place] [address] Kira Bansal RN documented as of this encounter Visit Diagnoses Not on filedocumented in this encounter Additional Health Concerns Assessment Noted Time PHQ-9 Depression Total Score: 19 023 3:57 PM EDT documented as of this encounter Care Teams Cork Compounder Relationship Specialty Start Date End Date Marc Nicolas AGNP PCP - General Family Medicine 10/22/22 04/20/23 Radha Shah FNP [address] [place] [address] PCP - General Family Medicine 04/21/23 04/25/24 [place] FNP [address] [place] [address] PCP - General Family Medicine 04/26/24 Colby Hirsch FNP [address] [place] [address] Nurse Practitioner Family Medicine 07/13/23 Candice Ugarte Production Cell LeaderArmature Inspector 12/27/23 documented as of this encounter
--- OUTSIDE RECORDS SUMMARY | 2025-05-21 15:12 | XMS_ITS | Patient Health Record ---
Author Organization [facility] Address [address] [place] [address] Care Team Providers Care Metal Sander And Finisher Name Role Phone Radha Rodriguez Primary Care Provider Jaylan Clancy Unavailable [phone] Allergies Allergen (clinical drug ingredient) Drug/Non Drug [...] DAILY Oral for 30 Active Vitamin A 00996 UNIT TAKE 1 CAPSULE BY M OUTH [...] Problem Status W/U Status Risk Notes Problem 45679609 Epigastric abdom inal pain (R10.13) Active confirmed Problem 368219301 Irritable bowel syndrome with diarrhea (K58.0) Active confirmed Problem Elevated liver enzymes level (046543653) Elevated liver function tests (R79.89) Active confirmed Problem 328147146 Fatty liver (K76.0) Active confirmed Problem 632801633 Gastroesophageal reflux disease, esophagitis presence not specified (K21.9) Active confirmed Problem 410561668 Abdominal pain, right upper quadrant (R10.11) Active confirmed Encounters Encounter Location Date Provider Diagnosis [facility] [address] [facility] [address] [place] [phone] 06/16/2024 Jaylan Neal Plan Of Treatment Pending Test Test Name Order Date BUN 12/29/2019 CREATININE 12/29/2019 LIVER PROFILE 02/04/2020 LIVER PROFILE 04/09/2020 LIVER PROFILE 12/29/2019 CBC w DIFF 12/29/2019 PROTHROMBIN TIME (PT, INR) 12/29/2019 [id number] (A1A) 12/29/2019 CAROTENE 12/29/2019 CERULOPLASMIN 12/29/2019 MITOCHONDRIAL [...] Start Date Coverage End Date MEDICAID OF [facility] [address] [place]EL[place] CRUZ [phone] [id number] HARMAN LEUNG Self - patient is the insured Medical (General) History Medical History History ICD Code Asthma Denies [place],CVA,renal disease Migraines Anxiety, depression, bipolar disease NIDDM [...]
--- OUTSIDE RECORDS SUMMARY | 2025-05-21 15:12 | XMS_ITS | Encounter Summary ---
Author Organization [employer] Address [address] [facility] [address] [place] [address] Care Team Providers Care Community Support Worker Name Role Phone Ruth Hoffmann PROGRAM PLANNER Primary Care Provider Marc Nava Primary Care Provider Unavail able Radha Shah PROGRAM PLANNER Primary Care Provider [phone] Colby HirschP Unavailable Unavailable [facility] PROGRAM PLANNER Primary Care Provider [phone] Reason for Visit * Reason Onset Date Comments Appointment Request 10/01/2022 Encounter Details Date Type Department Care Team (Late st Contact Info) Description 10/01/2022 Telephone [facility] MED[facility]INE [address] [place] [address] Ruth Hoffmann FNP Appointment Request Social History [...] Description 05/22/2025 12:00 PM EDT Office Visit [address] [address] Cheryl Galan DO [address] [place], [place] 08/01/2025 2:00 PM EST Clinical Support [address] [address] Kira Bansal RN documented as of this encounter Visit Diagnoses Not on filedocumented in this encounter Care Teams Community Support Worker Relationship Specialty Start Date End Date Ruth Hoffmann FNP PCP - General Family Medicine 07/21/22 10/21/22 Marc Nicolas AGNP PCP - General Family Medicine 10/22/22 04/20/23 Radha Shah FNP [address] [place] [address] PCP - General Family Medicine 04/21/23 04/25/24 [place] FNP [address] [place] [address] PCP - General Family Medicine 04/26/24 Colby Hirsch FNP [address] [place] [address] Nurse Practitioner Family Medicine 07/13/23 Candice Ugarte Fine Dining ServerNitroglycerin Supervisor 12/27/23 documented as of this encounter
--- OUTSIDE RECORDS SUMMARY | 2025-05-21 15:12 | XMS_ITS | Encounter Summary ---
Author Organization [employer] Address [address] [facility] [address] [place] [address] Care Team Providers Care Boiler Or Engine Operator Name Role Phone Radha Shah PRECIPITATOR SUPERVISOR Primary Care Provider [phone] Colby Hirsch Unavailable Unavailable [facility] PRECIPITATOR SUPERVISOR Primary Care Provider [phone] Reason for Visit * Reason Onset Date Comments telephone call 10/29/2023 Encounter Details Date Type Department Care Team (Late st Contact Info) Description 10/29/2023 Refill [facility] MED[facility]INE [address] [place] [address] Radha Shah FNP [address] [place] [address] Multiple joint pain Social History Tobacco Use [...] not remember the program name. A steam shovel operator from the program told her that if she still want to be in the program she needs a referral from PCP. Please call patient with any concern or questions. * Telephone Encounter - Celine Pate - 11/12/2023 9:46 AM EDT Patient walked in requesting a referral for a program. Patient does not remember the program name. A steam shovel operator from the program told her that if she still want to be in the program she needs a referral from PCP. Please call patient with any concern or questions. documented in this encounter Plan of Treatment Upcoming Encounters Date Type Department Care Team (Late st Contact Info) Description 05/22/2025 12:00 PM EDT Office Visit [facility] [address] [place] [address] Cheryl Galan DO [address] [place] [address] 08/01/2025 2:00 PM EST Clinical Support [facility] [address] [place] [address] Kira Bansal RN documented as of this encounter Visit Diagnoses Diagnosis Multiple joint pain Pain in joint, multiple sites documented in this encounter Additional Health Concerns Assessment Noted Time PHQ-9 Depression Total Score: 8 09/02/19 24 11:12 AM EST documented as of this encounter Care Teams Boiler Or Engine Operator Relationship Specialty Start Date End Date Radha Shah FNP [address] [place] [address] PCP - General Family Medicine 04/21/23 04/25/24 Yecenia Frias FNP [address] [place] [address] PCP - General Family Medicine 04/26/24 Colby Hirsch FNP [address] [place] [address] Nurse Practitioner Family Medicine 07/13/23 Candice Ugarte Senior Data Warehouse DeveloperVessel Manager 12/27/23 documented as of this encounter
--- OUTSIDE RECORDS SUMMARY | 2025-05-21 15:12 | XMS_ITS | Clinical Summary ---
Author Organization [employer] Address [address] [facility] [address] [place] [address] Care Team Providers Care Splunk Consultant Name Role Phone Colby Hirsch SAS DEVELOPER Unavailable Unavailable [facility] SAS DEVELOPER Primary Care Provider [phone] Allergies Active Allergy Reactions Criticality Noted Date [...] complication, with long-term current use of insulin (HCC) TAKE 1 TABLET BY MOUTH EVERY DAY WITH DINNER 90 tablet 1 024 Active glucose blood test stripIndications :Type 2 diabetes mellitus without complication, with long-term current use of insulin ([facility]) 1 each by Other route 2 times daily. 100 each 12 024 Active mirtazapine (Remeron) 7.5 MG tabletIndication s:Major depression with psychotic features (CMS/HCC) (HCC) Take 1 tablet (7.5 mg) by mouth at bedtime. 30 tablet 1 024 Active risperiDONE (RisperDAL) 2 MG tabletIndication s:Major Depressive Disorder Take 1 tablet (2 mg) by mouth at bedtime. 30 tablet 1 024 Active Blood Glucose Monitoring Suppl (FreeStyle Lite) w/Device kitIndications:T ype 2 diabetes mellitus without complication, with long-term current use of insulin ([facility]) 1 Device 2 times daily. 1 kit 024 Active Alcohol Swabs (Alcohol Prep) 70 % pads USE 1 FOUR TIMES DAILY DIRECTED 200 each 11 025 Active omeprazole (PriLOSEC) [address] capsule TAKE 1 CAPSULE BY MOUTH EVERY MORNING BEFORE BREAKFAST. DO NOT BREAK, CRUSH, DISSOLVE OR CHEW. 90 capsule 3 025 Active oxymetazoline (Afrin Nasal [place]) 0.05 % nasal sprayIndications :Viral upper respiratory illness Administer 2 sprays into each nostril every 12 (twelve) hours if needed for congestion for up to 2 days. Do not use for more than 3 days. 30 mL 025 Active beta carotene (vitamin A) 3 MG (60233 UT) capsule TAKE 1 CAPSULE BY MOUTH EVERY MORNING 90 capsule 1 04/16/2 025 Active cyanocobalamin (Vitamin B-12) 1000 MCG [...] complication, with long-term current use of insulin (HCC) Take 1 tablet (40 mg) by mouth [...] to improve. Major depression with psychotic features (CMS/HC C) 01/21/2023 Assessment & Plan (06/10/2023 9:14 AM EDT): [...] support system PLAN: 1. Follow up with [facility]: Not recommended for follow-up 2. Patient [...] mechanism to manage sxs, provided her with [facility] Crisis number for after hrs [...] skills discussed in session. She will contact [facility] crisis number as needed. Patient [...] in services PLAN: 1. Follow up with [facility]: Not recommended for follow-up 2. Patient [...] 1.210.Chronic Kidney Disease: Estimated GFR < 60 mL/min/1.99g3Kwqdtq Kidney Disease: Estimated GFR < 15 mL/min/1.73m2 [...] 1.210.Chronic Kidney Disease: Estimated GFR < 60 mL/min/1.96b8Qcmlgv Kidney Disease: Estimated GFR < 15 mL/min/1.73m2 [...] XR. -given brace. -recommended follow-up with PCP ESVINNAbbey Ahumada 12/07/24 2:50 PM XR/XR wrist LT [...] psychotic features with peripartum onset, unspecified trimester ([facility]) 01/21/2023 0 01/21/2023 Schizoaffective disorder, de pressive type ([facility]) 01/21/2023 02/27/2025 Overview (02/17/2023): Diagnostic evaluation per [...] Insomnia 01/30/2019 02/27/2025 Depression with anxiety 01/05/2019 07/03/2025 Assessment & Plan (01/15/2023 3:00 PM EDT): Assessment: Patient with anxiety, (difficult to control worry, nervousness) and panick attacks (periods of shaking, chest pain, and uncontrollable crying) in the context of biopsychosocial stressors of lack of transportation and access to care. Patient will benefit from OP therapy and psychiatry in person with a female clinician in [place]. At this time Sacha Rodriguez meets criteria for Visit Diagnoses: Anxiety Disorder Unspecified Patient ready to address current needs Yes Strengths include coping mechanisms of walking and distracting self PLAN: 1. Follow up with [facility]: Not recommended for follow-up 2. Patient [...] retiring patient is now referred to new [facility] psychiatric provider. Pt is aware that appts will be via televisit and that provider will not be an [facility] employee. She gives permission to [...] night at bedtime (not prn). Based on MANAGER BUSINESS INFORMATION notes, she appears to be taking Clonazepam [...] the plan. Multiple joint pain 06/22/2016 02/28/20 25 Assessment & Plan (05/03/2023 1:30 PM EDT): Request to have refill lidoderm path px before for back pain -refill today Encounters Date Type Department Care Team Description 05/16/2025 Telephone [facility] [address] [place] [address] GoshenYecenia FNP telephone call 05/14/2025 Refill [facility] [address] [place] [address] Yecenia Frias FNP Multiple joint pain 05/07/2025 2:40 PM EDT Office Visit [facility] [address] [place] [phone] Name, MD Tony Sore throat (Primary Dx); Stuffy and runny nose; Malaise; Headache, unspecified headache type 05/07/2025 Travel 04/30/2025 1:00 PM EDT Clinical Support [facility] [address] [place] [address] Kira Bansal RN Long-term current use of opiate analgesic (Primary Dx) 04/30/2025 [place] [address] Kira Bansal RN BPI Scoring 04/30/2025 Travel 04/18/2025 [place] [address] Altagracia, Yecenia, SAS DEVELOPER Arthralgia, unspecified joint 04/16/2025 Refill [facility] [address] [place] [address] Yecenia Frias, SAS DEVELOPER Multiple joint pain 04/16/2025 Refill [facility] [address] [place] [address] Yecenia Frias, SAS DEVELOPER Multiple joint pain 03/19/2025 Refill [facility] [address] [place] [address] Yecenia Frias, SAS DEVELOPER Multiple joint pain 03/19/2025 Refill [facility] [address] [place] [address] Yecenia Frias, SAS DEVELOPER Multiple joint pain 03/13/2025 Orders Only GENERIC EXTERNAL DATA DEPARTMENT Provider, Generic External Data 03/12/2025 Refill [facility] [address] [place] [address] Yecenia Frias FNP Mild intermittent asthma without complication 03/12/2025 Refill [facility] [address] [place] [address] Radha Shah FNP 03/09/2025 Refill [facility] [address] [place] [address] Eloisa Aragon NP 03/07/2025 Orders Only GENERIC EXTERNAL DATA DEPARTMENT Provider, Generic External Data 03/06/2025 1:40 PM EDT Office Visit [facility] [address] [place] [phone] Bethany Bond MD Costochondritis; Dizziness; Type 2 diabetes mellitus without complication, with long-term current use of insulin ([facility]) 03/06/2025 Telephone [facility] [address] [place] [address] Yecenia Frias FNP Stable Lab Letter 03/06/2025 Travel 03/05/2025 Results Follow-Up [facility] [address] [place] [address] Yecenia Frias, SAS DEVELOPER Albumin, Random Urine W/Creatinine 03/02/2025 Refill [facility] [address] [place] [address] Yecenia Frias FNP Arthralgia, unspecified joint 02/26/2025 10:30 AM EDT Office Visit [facility] [address] [place], [place] [phone] Yecenia Frias FNP Type 2 diabetes mellitus without complication, with long-term current use of insulin ([facility]) (Primary Dx); Essential hypertension; Encounter for screening for malignant neoplasm of colon; Encounter for immunization 02/26/2025 Travel 02/23/2025 Refill [facility] [address] [place] [address] Yecenia Frias FNP Multiple joint pain 02/22/2025 Telephone [facility] [address] [place], [place] [phone] Yecenia Frias FNP chart prep 02/21/2025 Orders Only GENERIC EXTERNAL DATA DEPARTMENT Provider, Generic External Data from Last 3 Months Immunizations Immunization Administration [...] Description 05/22/2025 12:00 PM EDT Office Visit [facility] [address] [place] [address] Cheryl Galan DO [address] [place] [address] 08/01/2025 2:00 PM EST Clinical Support [facility] [address] [place] [address] Kira Bansal, MEREDITH Health Maintenance Due Date [...] complication, with long-term current use of insulin ([facility]) ALBUMIN, RANDOM URINE W/CREATININE Routine 02/26/2025 11:31 AM EDT Type 2 diabetes mellitus without complication, with long-term current use of insulin ([facility]) URINALYSIS, COMPLETE Routine 02/21/2025 11:11 AM EDT [...] ID NOW (05/07/2025 2:59 PM EDT) Pathologist [facility] Influenza B Negative Negative, Indeterminate [facility] QC Media Lot # [id number] [facility] Lot# Expiration Date [facility] Swab 05/07/2025 2:59 PM EDT us Tony Haywood MD POINT OF CARE TEST ENTER/EDIT OR DERABLES Final Result Performing Organization Address [facility] Co de Phone Number [facility] [address] [place] [phone] * POCT Rapid Influenza A BALL ID NOW (05/07/2025 2:59 PM EDT) [facility] Influenza A Negative Negative, Indeterminate [facility] QC Media Lot # [id number] [facility] Lot# Expiration Date [facility] Swab 05/07/2025 2:59 PM EDT us Tony Haywood MD POINT OF CARE TEST ENTER/EDIT OR DERABLES Final Result Performing Organization Address City/[facility]/ZIP Co de Phone Number [facility] [address] [place] [phone] * POCT Rapid Covid-19 BinaxNOW (05/07/2025 2:58 PM EDT) Pathologist [facility] Rapid COVID Ag Negative QC Media Lot # [id number] Lot# Expiration Date 8326 Swab 05/07/2025 2:58 PM EDT us Tony Haywood MD POINT OF CARE TEST ENTER/EDIT OR DERABLES Final Result * POCT Rapid Strep A BALL ID NOW (05/07/2025 2:57 PM EDT) [facility] Rapid Strep A Screen Negative Negative, None Detected QC Media Lot # [id number] Lot# Expiration Date Swab 05/07/2025 2:57 PM EDT Tony Haywood MD POINT OF CARE TEST ENTER/EDIT OR DERABLES Final Result * POCT CASSI-14 Urine Drug Screen (04/30/2025 12:21 PM EDT) [facility] THC Negative Negative Cocaine Screen, Urine [...] - 04/30/2025 12:21 PM EDT UTOX cup Lot#[id number] Exp. 05/29/26 Internal Pass Control [facility] SAS DEVELOPER POINT OF CARE TEST ENTER/EDIT ORDERABLES Final Result * High Sensitivity Troponin I (03/13/2025 4:31 PM EDT) [facility] TROPONIN I HIGH SENSITIVITY <2.7 <3.5 - 17.0 ng/L [facility] Comment:The Ball high sens itivity Troponin-I results should beused in conjunction with other diagnostic information suchas ECG, clinical observations and information, and patientsymptoms to aid in the diagnosis of [place]. 03/13/2025 4:31 PM EDT 03/13/2025 4:36 PM EDT us Generic External Data Provider LAB BLOOD ORDERAB LES Final Result [facility] [address] [place] [phone] * Gross and Microscopic Level 3 (03/07/2025 1:00 PM EDT) 03/07/2025 1:00 PM EDT 03/07/2025 1:17 PM EDT Narrative [facility] - 03/08/2025 1:17 PM EDT ----- ------- Name: Sacha Contreras Age/Sex: 44/F : 1980 Unit#: [id number] Attend Dr: Lionel Cintron MD Re03/07/25 Status: [facility] Location: [facility] Disch: ----- ------- SPEC : [id number] RECD: 03/07/25-1316 STATUS: LEELEE NAVA NUM: [id number] MT: 03/07/25-[address]: Lionel Cintron MD ENTERED: 03/07/25-1326 SP TYPE: Surgical OTHR DR: [facility] ORDERED: Gross Micro L3 Diagnosis Soft [...] fibrous dermal tissue and unremarkable subcutaneous fat. Sluice Tender sections are submitted in cassettes A1 and A2. [facility] IHC S/NG Disclaimer NOTE: Unless otherwise stated, all tissue is formalin-fixed and paraffin-embedded. Some or all of the immunohistochemical tests reported herein may have been developed and their performance characteristics determined by [facility]. They have not been cleared or approved by the U.S. Food and Drug Administration (FDA). However, the FDA has determined that such clearance or approval is not necessary. This laboratory is certified under the Clinical Laboratory Improvement Amendments of 1988 (CLIA) as qualified to perform high complexity clinical laboratory testing. CONTINUED ON NEXT PAGE ----- ------- Name: Roach Sacha Rodriguez Age/Sex: 44/F : 1980 Unit#: [id number] Attend Dr: Lionel Cintron MD Re03/07/25 Status: [facility] Location: [facility] Disch: ----- ------- SPEC : [id number] RECD: 03/07/25 STATUS: LEELEE NAVA NUM: [id number] MT: 03/07/25-[address]: Lionel Cintron MD ENTERED: 03/07/25 SP TYPE: Surgical OTHR DR: [facility] ORDERED: Gross Micro L3 Copies To: [facility] [address] [place] [address] Lionel Cintron MD [facility] [address] [place] [phone] ----- ------- Signed (signature on file) Raghav Merrill MD 03/08/255 ----- ------- END OF REPORT us Generic External Data Provider LAB CYTOLOGY CANDIE BILLY Final Result [facility] [address] [place] [address] [phone] * Glucose, Whole Blood (03/07/2025 11:13 AM EDT) Glucose, Whole Blood 92 60 - 115 mg/dL [facility] Comment:METER #: [id number] 03/07/2025 11:1 3 AM EDT 03/07/2025 11:21 AM EDT us Generic External Data Provider LAB BLOOD ORDERAB LES Final Result Performing Organization Address City/[facility]/ZIP Co de Phone Number [facility] [address] [place] [phone] * POCT Glucose (03/06/2025 11:58 AM EDT) Glucose Blood, POC 115 60 - 200 mg/dL Blood Capillary blood specimen / Unknown 03/06/2025 11:58 AM EDT us Bethany Ritchie MD POINT OF CARE TEST EN TER/EDIT ORDERABLES Final Result * Albumin, Random Urine W/Creatinine (02/26/2025 11:31 AM EDT) Creatinine, Urine 186.00 mg/dL [facility] Microalbumin Urine 39.0 mg/L [facility] Microalbum Creatinine Ratio Ur 20.9 <30 ug/mg cr [facility] Comment:Albumin/Creatinine R atio Reference Ranges: Normal: < 30 ug/mg creatinine Microalbuminuria: 30 - 300 ug/mg creatinineClinical Albuminuria: > 300 ug/mg creatinine Urine 02/26/2025 11:3 1 AM EDT 02/26/2025 1:[address] [facility] SAS DEVELOPER LAB URINE ORDERABLES Final Re sult Performing Organization Address [facility]/ZIP Co de Phone Number [facility] [address] [place] [phone] * (ABNORMAL) Urinalysis Complete (02/21/2025 11:11 AM EDT) Color Urine Yellow [facility] Appearance Urine Clear [facility] PH 5.5 5.0 - 9.0 [facility] Glucose Urine UA Negative Negative mg/dL [facility] Urine Blood Small (1+)(A) Negative [facility] Specific [place] - Urine 1.015 1.005 - 1.025 [facility] Urine Protein Negative Neg-Trace mg/dL [facility] Urine Ketones Trace Negative mg/dL [facility] Nitrite Urine Negative Negative [facility] Leukocyte Esterase Urine Small (1+)(A) Negative [facility] RBC Urine 6-10(A) 0 - 2 /HPF [facility] Urine WBC 6-10(A) 0 - 5 /HPF [facility] Urine Squamous Epithelial Cell 11-20 0 - 2 /HPF [facility] Urine Bacteria 1+ None Seen [facility] Hyaline Casts, Urine 0-2 0 - 2 /LPF [facility] 02/21/2025 11:1 1 AM EDT 02/21/2025 12:02 PM EDT Generic External Data Provider LAB URINE ORDERAB LES Final Result Performing Organization Address [facility] de Phone Number [facility] [address] [place] [phone] * Culture, Urine, Routine (02/21/2025 11:11 AM EDT) Urine Urine specimen obtained by clean catch procedure / Unknown 02/21/2025 11:11 AM EDT 02/21/2025 12:02 PM EDT Comment:UACC Narrative [facility] - 02/22/2025 11:07 AM EDT Urine Culture Report Result Urine Culture 10,000 to 50,000 cfu/ml Urine Culture Mixed bacterial norma characteristic of Urine Culture urogenital contamination. Specimen Source: Urine clean catch Generic External Data Provider LAB MICROBIOLOGY - GENERAL ORDERABLES Final Result Performing Organization Address [facility] Co de Phone Number [facility] [address] [place] [address], [place] [phone] * Hemoglobin A1c (01/01/2025 2:03 PM EDT) Hemoglobin A1c 5.7 <6.0 % [facility] Comment:Hemoglobin A1C Refer ence Range Adults: 4.8 - 6.0 % Non diabetic: < 6.0 % Goal: < 7.0 %Additional Action Suggested: > 8.0 %Note: Hemoglobin A1c results are invalid for patients with abnormal amounts of HbF. Blood transfusions may impact the HbA1c concentration in the patient sample. Estimated Average Glucose 117 mg/dL [facility] Comment:eAG = Estimated ave rage glucose which is %A1C expressed asaverage glucose, using the formula of the R8H-TnuafvhAapubhu Glucose study (ADAG), Diabetes Care, Vol.31,#8,2007 01/01/2025 2:03 PM EDT 01/01/2025 2:03 PM EDT us Generic External Data Provider LAB BLOOD ORDERAB LES Final Result [facility] [address] [place] [phone] * HIV-1/2 Antigen and Antibodies, Fourth Generation, with Reflexes (10/23/2024 2:05 PM EST) HIV AB/AG Nonreactive Nonreactive [facility] Comment:HIV-1 p24 Ag and/or HIV-1/HIV-2 Ab not detected.A test result that is nonreactive does not exclude thepossibility of exposure to or infection with HIV-1 and/orHIV-2. Nonreactive results in this assay for individualswith prior exposure to HIV-1 and/or HIV-2 may be due toantigen and antibody levels that are below the limit ofdetection of this assay.The Pear Deck HIV Ag/Ab Combo assay result andsupplemental assay results should be interpreted inconjunction with the patient's clinical presentation,history and other laboratory results. If the results areinconsistent with clinical evidence, additional testing issuggested to confirm the result. Blood Venous blood specimen / Unknown 10/23/2024 2:05 PM EST 10/23/2024 4:20 PM EST [facility] SAS DEVELOPER LAB BLOOD ORDERABLES Final Re sult Performing Organization Address City/[facility]/ZIP Co de Phone Number [facility] [address] [place] [phone] [phone] * (ABNORMAL) Lipid Panel, Standard (09/25/2024 1:22 PM EST) Triglycerides 109 <150 mg/dL [facility] Comment:Desirable Triglyceri de: less than 150 mg/dLBorderline High Triglyceride 150-199 mg/dLHigh Triglyceride: 200-499 mg/dLVery High Triglyceride: greater than or equal to 5OO mg/dL Cholesterol 128 <200 mg/dL [facility] Comment:Desirable Cholestero l: less than 200 mg/dLBorderline High Cholesterol: 200-239 mg/dLHigh Cholesterol: greater than 239 mg/dL LDL Cholesterol Calculated 71 <100 mg/dL [facility] Comment:Desirable LDL: less than 100 mg/dLNear Optimal/Above Optimal LDL: 110- 129 mg/dLBorderline High LDL: 130-159 mg/dLHigh LDL: 160-189 mg/dLVery High LDL: greater than or equal to 190 mg/dL HDL Cholesterol 36(L) >40 mg/dL [facility] Comment:Desirable HDL: great er than 40 mg/dL Note: This HDL assay may give artificially low results in patients with liver disease. 09/25/2024 1:22 PM EST 09/25/2024 4:00 PM EST Generic External Data Provider LAB BLOOD ORDERAB LES Final Result Performing Organization Address City/[facility]/ZIP Co de Phone Number [facility] [address] [place] [phone] * BI Mammogram Screening Tomosynthesis Bilateral (11/16/2023 1:25 PM EDT) Anatomical Region Laterality Modality Breast Bilateral Mammography 11/16/2023 1:25 PM EDT Narrative 12/02/2023 6:15 AM EDT [address] [place] [address] Mammography Report Signed Patient: Sacha Contreras MR#: [id number] : 1980 Acct:[id number] Age/Sex: 42 / F ADM Date: 11/16/23 Loc: HO.MAMMO Attending Dr: Radha Shah NP Ordering Physician: Radha Shah NP Results: 1Negativ e Date of Service: 11/16/23 Follow Up: 1 Year From Orig inal Mammogram Procedure(s): MM tomosynthesis screening BI Accession Number(s): [id number] cc: Radha Shah NP EXAMINATION: MM SCREENING [...] in OV> 12/02/23 0611 DD/ 1325 TD/TT: Category Manager: Procedure Note Donotuseinterpreter, Image - 12/02/[address] [place] [address] Mammography Report Signed Patient: Xavier ContrerasR#: [id number] : 1980Acct:[id number] Age/Sex: 42 / FADM Date: 11/16/23 Loc: HO.MAMMO Attending Dr: Radha Shah SEAT MAKER Ordering Physician: Radha Shah NPResults: 1Negativ e Date of Service: 11/16/23Follow Up: 1 Year From Orig inal Mammogram Procedure(s): MM tomosynthesis screening BI Accession Number(s): [id number] cc: Radha Shah SEAT MAKER EXAMINATION: MM SCREENING DIGITAL BREAST TOMOSYNTHESIS, BILATERAL [...] in OV> 12/02/23 0611 DD/ 1325 TD/TT: Category Manager: Radha Shah SAS DEVELOPER IMG BI PROCEDURES Final Result * (ABNORMAL) Hepatitis Panel, General (02/22/2023 1:46 PM EDT) Hepatitis A Antibody Total REACTIVE( A) NON-REACT TAWNYA [facility] Comment: For additional information, please refer to http://education.Valneva/faq/LKG720 (This link is being provided for informational/ educational purposes only.) Hepatitis B Surface Antibody QL REACTIVE( A) NON-REACT TAWNYA [employer] Hepatitis B Surface Ag NON-REACT TAWNYA NON-REACT TAWNYA [employer] Comment: For additional information, please refer to http://SNADEC/faq/QYI647 (This link is being provided for informational/ educational purposes only.) Hepatitis B Core Antibody Total NON-REACT TAWNYA NON-REACT TAWNYA [employer] [place] [employer] Comment: For additional information, please refer to http://Appscend.Valneva/faq/KLA104 (This link is being provided for informational/ educational purposes only.) Hepatitis C Antibody NON-REACT TAWNYA NON-REACT TAWNYA [employer] Comment: HCV antibody was non-reactive. There is no laboratory evidence of HCV infection. In most cases, no further action is required. However, if recent HCV exposure is suspected, a test for HCV RNA (test code 39781) is suggested. For additional information please refer to http://SNADEC/faq/VQQ45e8 (This link is being provided for informational/ educational purposes only.) 02/22/2023 1:46 PM EDT 02/22/2023 1:46 PM EDT Narrative [facility] - 02/26/2023 7:51 PM EDT FASTING:NO FASTING: NO Marc Nicolas BANNERJeri LAB BLOOD ORDERABLES Final Res ult [facility] [address], [place] [address] [employer] [place] [employer] [address] [place] [address] from Last 3 Months or Most Recently Relevant to Health Maintenance Insurance [facility] C3 DENTAL-[facility] MEDICAID STAND ADULT Care Teams Splunk Consultant Relationship Specialty Start Date End Date Yecenia Frias FNP [address] [place] [address] PCP - General Family Medicine 04/26/24 Colby Hirsch FNP Nurse Practitioner Family Medicine 07/13/23 Candice Ugarte Mat Cleaning Machine OperatorMedia Promoter 12/27/23
--- OUTSIDE RECORDS SUMMARY | 2025-05-21 15:12 | XMS_ITS | Encounter Summary ---
Author Organization [employer] Address 75 [facility] 7t [place] [address] Care Team Providers Care Job Specification Writer Name Role Phone Colby Hirsch ANIMAL HEALTH TECHNICIAN Unavailable Unavailable [facility] Primary Care Provider [phone] Reason for Visit * Reason Comments Med Refill Encounter Details Date Type Department Care Team ([facility] st Contact Info) Description 01/02/2025 Refill [facility] MED[facility]INE 230 [place], [place] [phone] [facility] 230 [place] [address] Viral upper respiratory illness Social History Tobacco [...] 05/22/2025 12:00 PM EDT Office Visit [address] [address] Cheryl Galan DO [address] [place] [address] 08/01/2025 2:00 PM EST Clinical Support [address] [address] Kira Bansal RN documented as of this encounter Visit Diagnoses Diagnosis Viral upper respiratory illness documented in this encounter Additional Health Concerns Assessment Noted Time PHQ-9 Depression Total Score: 0 10/24/19 25 1:15 PM EST documented as of this encounter Care Teams Job Specification Writer Relationship Specialty Start Date End Date Yecenia Frias FNP [address] [place] [address] PCP - General Family Medicine 04/26/24 Colby Hirsch FNP Nurse Practitioner Family Medicine 07/13/23 Candice Ugarte Crm CoordinatorHandstitching Machine Collar Feller 12/27/23 documented as of this encounter
--- OUTSIDE RECORDS SUMMARY | 2025-05-21 15:13 | XMS_ITS | Encounter Summary ---
Author Organization [employer] Address 75 [facility] 7t [place] [address] Care Team Providers Care Credit Support Specialist Name Role Phone Marc Nicolas Primary Care Provider Unavail able Radha Shah COUNSELING CENTER DIRECTOR Primary Care Provider [phone] Colby Hirsch Unavailable Unavailable [facility] COUNSELING CENTER DIRECTOR Primary Care Provider [phone] Reason for Visit * Reason Comments Med Refill Encounter Details Date Type Department Care Team (Late Contact Info) Description 04/08/2023 Refill [facility] MED[facility]INE [address] [place] [address] [phone] Marc Nicolas AGNP Mixed anxiety and depressive [...] Description 05/22/2025 12:00 PM EDT Office Visit [facility] 230 [place], [place] [phone] Cheryl Galan DO 230 [place], [place] [phone] 08/01/2025 2:00 PM EST Clinical Support [facility]INE 230 [place] [address] Kira Bansal, MEREDITH documented as of this encounter Visit Diagnoses Diagnosis Mixed anxiety and depressive disorder Dysthymic disorder documented in this encounter Additional Health Concerns Assessment Noted Time PHQ-9 Depression Total Score: 0 04/02/20 2:10 PM EDT documented as of this encounter Care Teams Credit Support Specialist Relationship Specialty Start Date End Date Marc Nicolas AGNP PCP - General Family Medicine 10/22/22 04/20/23 Radha Shah FNP 230 [place] [address] PCP - General Family Medicine 04/21/23 04/25/24 [place] Alto[place]ecenia whipple FNP [address] [place] [address] PCP - General Family Medicine 04/26/24 Colby Hirsch FNP [address] [place] [address] Nurse Practitioner Family Medicine 07/13/23 Candice Ugarte Biochemical Development EngineerGlass Checker 12/27/23 documented as of this encounter
--- OUTSIDE RECORDS SUMMARY | 2025-05-21 15:13 | XMS_ITS | Encounter Summary ---
Author Organization [employer] Address [address] [facility] [address] 7t [place] [address] Care Team Providers Care Bakery Assistant Name Role Phone Radha Shah ANALYST BUSINESS ANALYSIS Primary Care Provider [phone] Colby Hirsch Unavailable Unavailable [facility] ANALYST BUSINESS ANALYSIS Primary Care Provider [phone] Encounter Details Date Type Department Care Team (Late st Contact Info) Description 04/24/2024 Orders Only [facility] [address] [place] [address] Radha Shah FNP [address] [place] [address] Elevated lipids (Primary Dx) Social History Tobacco [...] Description 05/22/2025 12:00 PM EDT Office Visit [address] [address] Cheryl Galan DO [address] [place] [address] [phone] 08/01/2025 2:00 PM EST Clinical Support [address] [phone] Kira Bansal RN documented as of this encounter Procedures Procedure Name Priority Date/Time Associated Diagnosis Comments LIPID PANEL, STANDARD Routine 05/12/2024 11:00 AM EDT Elevated lipids documented in this encounter Results * (ABNORMAL) Lipid Panel, Standard (05/12/2024 11:00 AM EDT) Triglycerides 100 <150 mg/dL [facility] Comment:Desirable Triglyceri de: less than 150 mg/dLBorderline High Triglyceride 150-199 mg/dLHigh Triglyceride: 200-499 mg/dLVery High Triglyceride: greater than or equal to 5OO mg/dL Cholesterol 101 <200 mg/dL [facility] Comment:Desirable Cholestero l: less than 200 mg/dLBorderline High Cholesterol: 200-239 mg/dLHigh Cholesterol: greater than 239 mg/dL LDL Cholesterol Calculated 44 <100 mg/dL [facility] Comment:Desirable LDL: less than 100 mg/dLNear Optimal/Above Optimal LDL: 110- 129 mg/dLBorderline High LDL: 130-159 mg/dLHigh LDL: 160-189 mg/dLVery High LDL: greater than or equal to 190 mg/dL HDL Cholesterol 37(L) >40 mg/dL [facility] Comment:Desirable HDL: great er than 40 mg/dL Note: This HDL assay may give artificially low results in patients with liver disease. Blood Venous blood specimen / Unknown 05/12/2024 11:00 AM EDT 05/12/2024 11:00 AM EDT Radha CASEY LAB BLOOD ORDERABLES Final Resu lt [facility] [address] [place] [phone] documented in this encounter Visit Diagnoses Diagnosis Elevated lipids- Primary documented in this encounter Additional Health Concerns Assessment Noted Time PHQ-9 Depression Total Score: 7 03/07/20 24 10:13 AM EDT documented as of this encounter Care Teams Bakery Assistant Relationship Specialty Start Date End Date Radha Shah FNP 230 [place] [address] PCP - General Family Medicine 04/21/23 04/25/24 [place] FNP 230 [place] [address] PCP - General Family Medicine 04/26/24 Colby Hirsch FNP [address] [place] [address] Nurse Practitioner Family Medicine 07/13/23 Candice Ugarte Supervisor LithargeInsurance Operations Rep 12/27/23 documented as of this encounter
--- OUTSIDE RECORDS SUMMARY | 2025-05-21 15:13 | XMS_ITS | Encounter Summary ---
Author Organization [employer] Address 75 [facility] 7t [place] [address] Care Team Providers Care Multisensor Intelligence Officer Name Role Phone Radha Shah ORNAMENTER HAND Primary Care Provider +0 Colby Hirsch Unavailable Unavailable [facility] Primary Care Provider [phone] Reason for Visit * Reason Comments Med Refill Encounter Details Date Type Department Care Team (Late st Contact Info) Description 04/12/2024 Refill [facility] 230 [place] [address] Radha Shah FNP 230 [place] [address] Multiple joint pain Social History Tobacco Use [...] irritable 2 03/24 1:28 PM EDT Kira Basnal RN Feeling afraid as if somethi ng awful might happen 2 04/13/2024 1:28 PM EDT Kira Bansal RN TAVON-7 Total Score 14 04/13/2024 1:28 PM EDT Kira Bansal RN documented as of this encounter Plan of Treatment Upcoming Encounters Date Type Department Care Team (Late st Contact Info) Description 05/22/2025 12:00 PM EDT Office Visit [facility] [address] [place] [address] Cheryl Galan DO 230 [place] [address] 08/01/2025 2:00 PM EST Clinical Support [facility] [address] [place] [address] Kira Bansal, RN documented as of this encounter Visit Diagnoses Diagnosis Multiple joint pain Pain in joint, multiple sites documented in this encounter Additional Health Concerns Assessment Noted Time PHQ-9 Depression Total Score: 7 03/07/20 24 10:13 AM EDT documented as of this encounter Care Teams Multisensor Intelligence Officer Relationship Specialty Start Date End Date Radha Shah FNP 230 [place] [address] PCP - General Family Medicine 04/21/23 04/25/24 Yecenia Frias FNP [address] [place] [address] PCP - General Family Medicine 04/26/24 Colby Hirsch FNP [address] [place] [address] Nurse Practitioner Family Medicine 07/13/23 Candice Ugarte Product Manager E CommerceWeb Analyst 12/27/23 documented as of this encounter
--- OUTSIDE RECORDS SUMMARY | 2025-05-21 15:13 | XMS_ITS | Encounter Summary ---
Author Organization [employer] Address 75 [facility] 7t [place] [address] Care Team Providers Care Lumber Yard Worker Name Role Phone Colby Hirsch OVENS SUPERVISOR Unavailable Unavailable [facility] Primary Care Provider [phone] Reason for Visit * Reason Onset Date Comments telephone call 05/16/2025 Encounter Details Date Type Department Care Team ([facility] st Contact Info) Description 05/16/2025 Telephone [facility] 230 [place] [address] [facility] 230 [place] [address] telephone call Social History Tobacco Use Types [...] 9:23 AM EDT TC placed to patient [phone] using [employer] #ID [id number] regarding below message. RN status checked patient. [...] her she can get seen in the [facility] but she said she wanted to see her pcp. documented in this encounter Plan of Treatment Upcoming Encounters Date Type Department Care Team (Late st Contact Info) Description 05/22/2025 12:00 PM EDT Office Visit [address] [phone] Cheryl Galan DO 230 [place] [address] 08/01/2025 2:00 PM EST Clinical Support [address] [phone] Kira Bansal, MEREDITH documented as of this encounter Visit Diagnoses Not on filedocumented in this encounter Additional Health Concerns Assessment Noted Time PHQ-9 Depression Total Score: 0 02/27/20 25 10:29 AM EDT documented as of this encounter Care Teams Lumber Yard Worker Relationship Specialty Start Date End Date Yecenia Frias FNP [address] [place] [address] PCP - General Family Medicine 04/26/24 Colby Hirsch FNP Nurse Practitioner Family Medicine 07/13/23 Candice Ugarte Hand Violin MakerMoney Laundering Investigator 12/27/23 documented as of this encounter
--- OUTSIDE RECORDS SUMMARY | 2025-05-21 15:13 | XMS_ITS | Encounter Summary ---
Author Organization [employer] Address 75 [facility] 7t [place] [address] Care Team Providers Care Plant Manager Name Role Phone Marc Nicolas Primary Care Provider Unavail able Radha Shah CHARGE ENTRY Primary Care Provider [phone] Colby Hirsch Unavailable Unavailable [facility] CHARGE ENTRY Primary Care Provider [phone] Reason for Visit * Reason Onset Date Comments Results 04/09/2023 Encounter Details Date Type Department Care Team (Late st Contact Info) Description 04/09/2023 Telephone [facility] MEDICINE 230 [place] [address] Marc Nicolas AGNP Results Social History Tobacco [...] AM EDT FYI T/C to pt. Through nubelo id - [id number] for below message. Pt. States she is having apt. With Dr. Sims on 05/03/2023 and wants to discuss on that day. Pt. Advised to give call back on [phone] if any questions or concerns. Pt. Verbally agreed and understood. Please review and advise if needed. * Telephone Encounter - Romeo Child - 04/09/2023 12:19 PM EDT Tc from pt requesting status on results for Liver that were done a moth ago pt states. Please contact pt at [phone] Amharic Speaker documented in this encounter Plan of Treatment Upcoming Encounters Date Type Department Care Team (Late st Contact Info) Description 05/22/2025 12:00 PM EDT Office Visit [address] [address] Cheryl Galan DO 230 [place] [address] 08/01/2025 2:00 PM EST Clinical Support [address] [address] Kira Bansal RN documented as of this encounter Visit Diagnoses Not on filedocumented in this encounter Additional Health Concerns Assessment Noted Time PHQ-9 Depression Total Score: 0 04/02/20 23 2:10 PM EDT documented as of this encounter Care Teams Plant Manager Relationship Specialty Start Date End Date Marc Nicolas AGNP PCP - General Family Medicine 10/22/22 04/20/23 Radha Shah FNP [address] [place] [address] PCP - General Family Medicine 04/21/23 04/25/24 Yecenia Frias FNP [address] [place] [address] PCP - General Family Medicine 04/26/24 Colby Hirsch FNP 230 [place] [address] Nurse Practitioner Family Medicine 07/13/23 Candice Ugarte Lead Process EngineerResearch Rn Spec 12/27/23 documented as of this encounter
--- OUTSIDE RECORDS SUMMARY | 2025-05-21 15:13 | XMS_ITS | Encounter Summary ---
Author Organization [employer] Address 75 [facility] 7t [place] [address] Care Team Providers Care Casting Machine Set Up Operator Name Role Phone Colby Hirsch RN FACULTY Unavailable Unavailable [facility] Primary Care Provider [phone] Reason for Visit * Reason Comments Med Refill Encounter Details Date Type Department Care Team (Late st Contact Info) Description 03/12/2025 Refill [facility] MEDICINE 230 [place] [address] Radha Shah FNP 230 [place] [address] Social History Tobacco Use Types Packs/Day Years [...] Description 05/22/2025 12:00 PM EDT Office Visit [address] [address] Cheryl Galan DO 230 [place] [address] 08/01/2025 2:00 PM EST Clinical Support [address] [address] Kira Bansal, MEREDITH documented as of this encounter Visit Diagnoses Not on filedocumented in this encounter Additional Health Concerns Assessment Noted Time PHQ-9 Depression Total Score: 0 02/27/20 25 10:29 AM EDT documented as of this encounter Care Teams Casting Machine Set Up Operator Relationship Specialty Start Date End Date Yecenia Frias FNP [address] [place] [address] PCP - General Family Medicine 04/26/24 Colby Hirsch FNP Nurse Practitioner Family Medicine 07/13/23 Candice Ugarte Yacht MasterChief Investigator 12/27/23 documented as of this encounter
--- OUTSIDE RECORDS SUMMARY | 2025-05-21 15:13 | XMS_ITS | Encounter Summary ---
Author Organization [employer] Address [address] [facility] [address] 7t [place] [address] Care Team Providers Care Nut Cracker Name Role Phone Radha Shah SYSTEMS TEST ANALYST Primary Care Provider [phone] Colby Hirsch SYSTEMS TEST ANALYST Unavailable Unavailable [facility] SYSTEMS TEST ANALYST Primary Care Provider [phone] Reason for Visit * Reason Comments Med Refill Encounter Details Date Type Department Care Team (Late st Contact Info) Description 06/04/2023 Refill [facility] MEDICINE 230 [place] [address] Marilee Buckner FNP Multiple joint pain; Mixed [...] Description 05/22/2025 12:00 PM EDT Office Visit [facility] [address] [place] [address] Cheryl Galan DO 230 [place] [address] 08/01/2025 2:00 PM EST Clinical Support [address] [address] Kira Bansal, RN documented as of this encounter Visit Diagnoses Diagnosis Multiple joint pain Pain in joint, multiple sites Mixed anxiety and depressive disorder Dysthymic disorder documented in this encounter Additional Health Concerns Assessment Noted Time PHQ-9 Depression Total Score: 0 04/02/20 2:10 PM EDT documented as of this encounter Care Teams Nut Cracker Relationship Specialty Start Date End Date Radha Shah FNP 230 [place] [address] PCP - General Family Medicine 04/21/23 04/25/24 Yecenia Frias FNP [address] [place] [address] PCP - General Family Medicine 04/26/24 Colby Hirsch FNP [address] [place] [address] Nurse Practitioner Family Medicine 07/13/23 Candice Ugarte Camp BossCarton And Can Supply Supervisor 12/27/23 documented as of this encounter
--- OUTSIDE RECORDS SUMMARY | 2025-05-21 15:13 | XMS_ITS | Encounter Summary ---
Author Organization [employer] Address 75 [facility] 7t [place] [address] Care Team Providers Care Expediter Name Role Phone Radha Shah AGRICULTURAL PRODUCE PACKER Primary Care Provider +[phone] Colby Hirsch Unavailable Unavailable [facility] Primary Care Provider [phone] Reason for Visit * Reason Comments Med Refill Encounter Details Date Type Department Care Team (Late st Contact Info) Description 07/02/2023 Refill [facility] MEDICINE 230 [place] [address] Radha Shah FNP 230 [place] [address] Multiple joint pain Social History Tobacco Use [...] Description 05/22/2025 12:00 PM EDT Office Visit [address] [address] Cheryl Galan DO [address] [place] [address] 08/01/2025 2:00 PM EST Clinical Support [address] [address] Kira Bansal, MEREDITH documented as of this encounter Visit Diagnoses Diagnosis Multiple joint pain Pain in joint, multiple sites documented in this encounter Additional Health Concerns Assessment Noted Time PHQ-9 Depression Total Score: 6 06/15/20 23 10:23 AM EDT documented as of this encounter Care Teams Expediter Relationship Specialty Start Date End Date Radha Shah FNP [address] [place] [address] PCP - General Family Medicine 04/21/23 04/25/24 Yecenia Frias FNP [address] [place] [address] PCP - General Family Medicine 04/26/24 Colby Hirsch FNP 230 [place] [address] Nurse Practitioner Family Medicine 07/13/23 Candice Ugarte Pbx InspectorTypewriter Aligner 12/27/23 documented as of this encounter
--- OUTSIDE RECORDS SUMMARY | 2025-05-21 15:13 | XMS_ITS | Encounter Summary ---
Author Organization [employer] Address 75 [facility] 7t [place] [address] Care Team Providers Care Lagging Machine Operator Name Role Phone Colby Hirsch REGENERATOR OPERATOR Unavailable Unavailable [facility] Primary Care Provider Reason for Visit * Reason Comments Med Refill Encounter Details Date Type Department Care Team ([facility] st Contact Info) Description 04/18/2025 Refill [facility] 230 [place] [address] [facility] 230 [place] [address] Arthralgia, unspecified joint Social History Tobacco Use [...] Description 05/22/2025 12:00 PM EDT Office Visit [address] [address] Cheryl Gaaln DO [address] [place] [address] 08/01/2025 2:00 PM EST Clinical Support [address] [address] Kira Bansal, MEREDITH documented as of this encounter Visit Diagnoses Diagnosis Arthralgia, unspecified joint documented in this encounter Additional Health Concerns Assessment Noted Time PHQ-9 Depression Total Score: 0 02/27/20 25 10:29 AM EDT documented as of this encounter Care Teams Lagging Machine Operator Relationship Specialty Start Date End Date Yecenia Frias FNP [address] [place] [address] PCP - General Family Medicine 04/26/24 Colby Hirsch FNP Nurse Practitioner Family Medicine 07/13/23 Candice Ugarte Office Manager Executive AssistantVeneer Sawyer 12/27/23 documented as of this encounter
--- OUTSIDE RECORDS SUMMARY | 2025-05-21 15:13 | XMS_ITS | Encounter Summary ---
Author Organization [employer] Address 75 [facility] 7t [place] [address] Care Team Providers Care Family Intervention Specialist Name Role Phone Marc Nicolas Primary Care Provider Unavail able Radha Shah Primary Care Provider +[phone] Colby Hirsch Unavailable Unavailable [facility] VISUAL DESIGN LEAD Primary Care Provider [phone] Reason for Visit * Reason Comments Med Refill Encounter Details Date Type Department Care Team (Late st Contact Info) Description 04/08/2023 Refill [facility] MEDICINE 230 [place], [place] [phone] Marc Nicolas AGNP Schizoaffective disorder, depressive type [...] 12:00 PM EDT Office Visit [facility] MED[facility]INE 230 [place], [place] [phone] Cheryl Galan, DO 230 [facility] [place] [address] 08/01/2025 2:00 PM EST Clinical Support [facility] MED[facility]INE [address] [facility] [place], [place] [phone] Kira Bansal, RN documented as of this encounter Visit Diagnoses Diagnosis Schizoaffective disorder, depressive type (CMS/HCC) (HCC) Schizoaffective disorder, unspecified condition Mixed anxiety and depressive disorder Dysthymic disorder documented in this encounter Additional Health Concerns Assessment Noted Time PHQ-9 Depression Total Score: 0 04/02/20 2:10 PM EDT documented as of this encounter Care Teams Family Intervention Specialist Relationship Specialty Start Date End Date Marc Nicolas AGNP PCP - General Family Medicine 10/22/22 04/20/23 [place] [address] PCP - General Family Medicine 04/21/23 04/25/24 HoldregeYecenia FNP [facility] [facility] [place] [address] PCP - General Family Medicine 04/26/24 [place] [address] Nurse Practitioner Family Medicine 07/13/23 Candice Ugarte Supervisor Fabrication And AssemblyDirector New Product 12/27/23 documented as of this encounter
--- OUTSIDE RECORDS SUMMARY | 2025-05-21 15:13 | XMS_ITS | Encounter Summary ---
Author Organization [employer] Address [address] [facility] 7t [place] [address] Care Team Providers Care Leather Lacer Name Role Phone Marc Nicolas Primary Care Provider Unavail able Radha Shah Primary Care Provider [phone] Colby Hirsch Unavailable Unavailable [facility] AIRPLANE COVER MAKER Primary Care Provider [phone] Reason for Visit * Reason Onset Date Comments Med Refill 04/09/2023 Encounter Details Date Type Department Care Team (Late st Contact Info) Description 04/09/2023 Refill [facility] MEDICINE 230 [place] [address] Marc Nicolas AGNP Mixed anxiety and depressive [...] listed in EHR, no record. Spoke with [facility] pharmacy, she is listed as Romaine [...] (KlonoPIN) 0.5 MG tablet Please sent to [facility] - [place], [place] - [address] [place] [address] documented in this encounter Plan of Treatment Upcoming Encounters Date Type Department Care Team (Late st Contact Info) Description 05/22/2025 12:00 PM EDT Office Visit [address] [address] Cheryl Galan DO [address] [place] [address] 08/01/2025 2:00 PM EST Clinical Support [address] [address] Kira Bansal, MEREDITH documented as of this encounter Visit Diagnoses Diagnosis Mixed anxiety and depressive disorder Dysthymic disorder documented in this encounter Additional Health Concerns Assessment Noted Time PHQ-9 Depression Total Score: 0 04/02/20 2:10 PM EDT documented as of this encounter Care Teams Leather Lacer Relationship Specialty Start Date End Date Marc Nicolas AGNP PCP - General Family Medicine 10/22/22 04/20/23 Radha Shah FNP [address] [place] [address] PCP - General Family Medicine 04/21/23 04/25/24 Yecenia Frias FNP [address] [place] [address] PCP - General Family Medicine 04/26/24 Colby Hirsch FNP [address] [place] [address] Nurse Practitioner Family Medicine 07/13/23 Candice Ugarte Live Ammunition InspectorProduct Management Intern 12/27/23 documented as of this encounter
--- OUTSIDE RECORDS SUMMARY | 2025-05-21 15:13 | XMS_ITS | Encounter Summary ---
Author Organization [employer] Address [address] [facility] [address] 7t [place] [address] Care Team Providers Care Executive Chef Name Role Phone Radha Shah Primary Care Provider +5 Colby Hirsch Unavailable Unavailable [facility] TRIBAL DELEGATE Primary Care Provider [phone] Encounter Details Date Type Department Care Team (Late st Contact Info) Description 10/29/2023 Orders Only [facility] MED & PEDS [address] [place] [address] Radha Shah FNP [address] [place] [address] Social History Tobacco Use Types Packs/Day Years [...] 05/22/2025 12:00 PM EDT Office Visit [address] [address] Cheryl Galan DO [address] [place] [address] 08/01/2025 2:00 PM EST Clinical Support [address] [address] Kira Bansal RN documented as of this encounter Visit Diagnoses Not on filedocumented in this encounter Additional Health Concerns Assessment Noted Time PHQ-9 Depression Total Score: 8 09/02/19 24 11:12 AM EST documented as of this encounter Care Teams Executive Chef Relationship Specialty Start Date End Date Radha Shah FNP [address] [place] [address] PCP - General Family Medicine 04/21/23 04/25/24 Yecenia Frias FNP [address] [place] [address] PCP - General Family Medicine 04/26/24 Colby Hirsch FNP [address] [place] [address] Nurse Practitioner Family Medicine 07/13/23 Candice Ugarte Health ScreenerCustomer Service Correspondence Clerk 12/27/23 documented as of this encounter
--- OUTSIDE RECORDS SUMMARY | 2025-05-21 15:14 | XMS_ITS | Encounter Summary ---
Author Organization [employer] Address 75 [facility] 7t [place] [address] Care Team Providers Care Supervisor Kennel Name Role Phone Radha Shah JUNIOR COPYWRITER Primary Care Provider +6 Colby Hirsch Unavailable Unavailable [facility] Primary Care Provider [phone] Reason for Visit * Reason Comments Med Refill Encounter Details Date Type Department Care Team (Late st Contact Info) Description 02/16/2024 Refill [facility] MEDICINE 230 [place] [address] Radha Shah FNP [address] [place] [address] Multiple joint pain Social History Tobacco Use [...] Description 05/22/2025 12:00 PM EDT Office Visit [address] [place] [address] [address] Cheryl Galan DO [address] [place] [address] 08/01/2025 2:00 PM EST Clinical Support [address] [address] Kira Bansal, MEREDITH documented as of this encounter Visit Diagnoses Diagnosis Multiple joint pain Pain in joint, multiple sites documented in this encounter Additional Health Concerns Assessment Noted Time PHQ-9 Depression Total Score: 6 12/28/19 24 11:17 AM EDT documented as of this encounter Care Teams Supervisor Kennel Relationship Specialty Start Date End Date Radha Shah FNP [address] [place] [address] PCP - General Family Medicine 04/21/23 04/25/24 Yecenia Frias FNP [address] [place] [address] PCP - General Family Medicine 04/26/24 Colby Hirsch FNP 230 [place] [address] Nurse Practitioner Family Medicine 07/13/23 Candice Ugarte Superintendent Generating PlantArtist'S Model 12/27/23 documented as of this encounter
--- OUTSIDE RECORDS SUMMARY | 2025-05-21 15:14 | XMS_ITS | Encounter Summary ---
Author Organization [employer] Address 75 [facility] 7t [place] [address] Care Team Providers Care Stone Paver Name Role Phone Colby Hirsch EVENT OPERATIONS MANAGER Unavailable Unavailable [facility] Primary Care Provider [phone] Reason for Visit * Reason Comments Med Refill Encounter Details Date Type Department Care Team ([facility] st Contact Info) Description 10/31/2024 Refill [facility] MEDICINE 230 [place], [place] [phone] [facility] 230 [place] [address] Type 2 diabetes mellitus without complication, with long-term current use of insulin ([facility]) Social History Tobacco Use Types Packs/Day [...] 05/22/2025 12:00 PM EDT Office Visit [address] [address] Cheryl Galan DO [address] [place] [address] 08/01/2025 2:00 PM EST Clinical Support [address] [address] Kira Bansal, MEREDITH documented as of this encounter Visit Diagnoses Diagnosis Type 2 diabetes mellitus without complication, with long-term current use of insulin (HCC) documented in this encounter Additional Health Concerns Assessment Noted Time PHQ-9 Depression Total Score: 0 10/24/19 25 1:15 PM EST documented as of this encounter Care Teams Stone Paver Relationship Specialty Start Date End Date Yecenia Frias FNP [address] [place] [address] PCP - General Family Medicine 04/26/24 Colby Hirsch FNP Nurse Practitioner Family Medicine 07/13/23 Candice Ugarte Ostomy NurseAcute Care Assistant 12/27/23 documented as of this encounter
--- OUTSIDE RECORDS SUMMARY | 2025-05-21 15:14 | XMS_ITS | Encounter Summary ---
Author Organization [employer] Address 75 [facility] 7t [place] [address] Care Team Providers Care Geological Engineering Teacher Name Role Phone Colby Hirsch BARREL LEVELER Unavailable Unavailable [facility] Primary Care Provider [phone] Reason for Visit * Reason Onset Date Comments Med Refill 09/29/2024 Encounter Details Date Type Department Care Team ([facility] st Contact Info) Description 09/29/2024 Telephone [facility] [address] [place], [place] [phone] [facility] 230 [place] [address] Med Refill Social History Tobacco Use Types [...] 50 MG tablet To be sent to: [facility] documented in this encounter Plan of Treatment Upcoming Encounters Date Type Department Care Team (Late st Contact Info) Description 05/22/2025 12:00 PM EDT Office Visit [facility] [address] [place] [address] Cheryl Galan DO [address] [place], [place] [phone] 08/01/2025 2:00 PM EST Clinical Support [facility] [address] [place] [address] Kira Bansal RN documented as of this encounter Visit Diagnoses Not on filedocumented in this encounter Additional Health Concerns Assessment Noted Time PHQ-9 Depression Total Score: 7 03/07/20 24 10:13 AM EDT documented as of this encounter Care Teams Geological Engineering Teacher Relationship Specialty Start Date End Date Yecenia Frias FNP 230 [place] [address] PCP - General Family Medicine 04/26/24 Colby Hirsch FNP Nurse Practitioner Family Medicine 07/13/23 Candice Ugarte Instructional ConsultantVulcanizer 12/27/23 documented as of this encounter
--- OUTSIDE RECORDS SUMMARY | 2025-05-21 15:14 | XMS_ITS | Encounter Summary ---
Author Organization [employer] Address 75 [facility] 7t [place] [address] Care Team Providers Care Crew Dispatcher Name Role Phone PabloDanymargie CASEY Primary Care Provider +6 Colby Hirsch Unavailable Unavailable [facility] Primary Care Provider [phone] Reason for Visit * Reason Comments Med Refill Encounter Details Date Type Department Care Team (Late st Contact Info) Description 01/04/2024 Refill [facility] MEDICINE 230 [place] [address] Colby Hirsch FNP Social History Tobacco Use [...] Description 05/22/2025 12:00 PM EDT Office Visit [address] [address] Cheryl Galan DO [address] [place] [address] 08/01/2025 2:00 PM EST Clinical Support [address] [address] Kira Bansal RN documented as of this encounter Visit Diagnoses Not on filedocumented in this encounter Additional Health Concerns Assessment Noted Time PHQ-9 Depression Total Score: 6 12/28/19 24 11:17 AM EDT documented as of this encounter Care Teams Crew Dispatcher Relationship Specialty Start Date End Date Radha Shah FNP [address] [place] [address] PCP - General Family Medicine 04/21/23 04/25/24 [place] ParkYecenia FNP [address] [place] [address] PCP - General Family Medicine 04/26/24 Colby Hirsch FNP [address] [place] [address] Nurse Practitioner Family Medicine 07/13/23 Candice Ugarte Senior Java ArchitectClother In 12/27/23 documented as of this encounter
--- OUTSIDE RECORDS SUMMARY | 2025-05-21 15:14 | XMS_ITS | Encounter Summary ---
Author Organization [employer] Address 75 [facility] 7t [place] [address] Care Team Providers Care Sccm Administrator Name Role Phone Marc Nicolas Primary Care Provider Unavail able Radha Shah NON EMERGENCY SERVICES AMBULANCE DRIVER Primary Care Provider [phone] Colby Hirsch Unavailable Unavailable [facility] NON EMERGENCY SERVICES AMBULANCE DRIVER Primary Care Provider [phone] Reason for Visit * Reason Comments Med Refill Encounter Details Date Type Department Care Team ([facility] Contact Info) Description 03/17/2023 Refill [facility] MEDICINE [address] [place] [address] Marc Nicolas AGNP Mixed anxiety and depressive [...] Encounters Date Type Department Care Team ([facility] Contact Info) Description 05/22/2025 12:00 PM EDT Office Visit [facility] MEDICINE [address] [place], [place] [phone] Cheryl Galan DO 230 [place], [place] [phone] 08/01/2025 2:00 PM EST Clinical Support [facility] MEDICINE [address] [facility] [place] [address] Kira Bansal, MEREDITH documented as of this encounter Visit Diagnoses Diagnosis Mixed anxiety and depressive disorder Dysthymic disorder documented in this encounter Additional Health Concerns Assessment Noted Time PHQ-9 Depression Total Score: 13 023 3:27 PM EDT documented as of this encounter Care Teams Sccm Administrator Relationship Specialty Start Date End Date Marc Nicolas AGNP PCP - General Family Medicine 10/22/22 04/20/23 Radha [place] [address] PCP - General Family Medicine 04/21/23 04/25/24 [place] [address] PCP - General Family Medicine 04/26/24 Colby Hirsch FNP [address] [place] [address] Nurse Practitioner Family Medicine 07/13/23 Candice Ugarte Tie CarrierEducation Teacher 12/27/23 documented as of this encounter
--- OUTSIDE RECORDS SUMMARY | 2025-05-21 15:14 | XMS_ITS | Encounter Summary ---
Author Organization [employer] Address 75 [facility] 7t [place] [address] Care Team Providers Care Standards Engineer Name Role Phone Radha Shah SUBSCRIPTION CREW LEADER Primary Care Provider +[phone] Colby Hirsch Unavailable Unavailable [facility] SUBSCRIPTION CREW LEADER Primary Care Provider [phone] Reason for Visit * Reason Comments Med Refill Encounter Details Date Type Department Care Team (Late st Contact Info) Description 06/28/2023 Refill [facility] CHC MED & PEDS [address] [place] [address] Radha Shah FNP 230 [place] [address] Schizoaffective disorder, depressive type (CMS/HCC) Social History [...] Description 05/22/2025 12:00 PM EDT Office Visit [address] [address] Cheryl Galan DO [address] [place] [address] 08/01/2025 2:00 PM EST Clinical Support [address] [address] Kira Bansal, MEREDITH documented as of this encounter Visit Diagnoses Diagnosis Schizoaffective disorder, depressive type (CMS/HCC) (HCC) Schizoaffective disorder, unspecified condition documented in this encounter Additional Health Concerns Assessment Noted Time PHQ-9 Depression Total Score: 6 06/15/20 23 10:23 AM EDT documented as of this encounter Care Teams Standards Engineer Relationship Specialty Start Date End Date Radha Shah FNP [address] [place] [address] PCP - General Family Medicine 04/21/23 04/25/24 Yecenia Frias FNP [address] [place] [address] PCP - General Family Medicine 04/26/24 Colby Hirsch FNP [address] [place] [address] Nurse Practitioner Family Medicine 07/13/23 Candice Ugarte Salesforce DeveloperEnergy Projects Lead 12/27/23 documented as of this encounter
--- OUTSIDE RECORDS SUMMARY | 2025-05-21 15:14 | XMS_ITS | Encounter Summary ---
Author Organization [employer] Address 75 [facility] 7t [place] [address] Care Team Providers Care Acid Operator Name Role Phone Marc Nicolas Primary Care Provider Unavail able Radha Shah SHOE CLERK Primary Care Provider +[phone] Colby Hirsch Unavailable Unavailable [facility] SHOE CLERK Primary Care Provider [phone] Reason for Visit * Reason Comments Med Refill Encounter Details Date Type Department Care Team (Late Contact Info) Description 04/07/2023 Refill [facility] CH[facility] MED & PEDS [address] [place], [place] [phone] Marc Nicolas AGNP Multiple joint pain Social [...] Upcoming Encounters Date Type Department Care Team ([facility] Contact Info) Description 05/22/2025 12:00 PM EDT Office Visit [facility] MEDICINE 230 [place], [place] [phone] Cheryl Galan DO 230 [place], [place] [phone] 08/01/2025 2:00 PM EST Clinical Support [facility] MEDICINE [address] [place] [address] Kira Bansal, MEREDITH documented as of this encounter Visit Diagnoses Diagnosis Multiple joint pain Pain in joint, multiple sites documented in this encounter Additional Health Concerns Assessment Noted Time PHQ-9 Depression Total Score: 0 04/02/20 2:10 PM EDT documented as of this encounter Care Teams Acid Operator Relationship Specialty Start Date End Date Marc Nicolas AGNP PCP - General Family Medicine 10/22/22 04/20/23 Radha Shah FNP [address] [place] [address] PCP - General Family Medicine 04/21/23 04/25/24 AltagraciaYecenia whipple FNP [address] [place] [address] PCP - General Family Medicine 04/26/24 Colby Hirsch FNP [address] [place] [address] Nurse Practitioner Family Medicine 07/13/23 Candice Ugarte Cigarette RollerDigital Developer 12/27/23 documented as of this encounter
--- OUTSIDE RECORDS SUMMARY | 2025-05-21 15:14 | XMS_ITS | Encounter Summary ---
Author Organization [employer] Address 75 [facility] 7t [place] [address] Care Team Providers Care Sales Force Developer Name Role Phone Marc Nicolas Primary Care Provider Unavail able Radha Shah Primary Care Provider +6 Colby Hirsch Unavailable Unavailable [facility] SENIOR NETWORK SECURITY ARCHITECT Primary Care Provider [phone] Reason for Visit * Reason Comments Med Refill Encounter Details Date Type Department Care Team (Late st Contact Info) Description 03/10/[address] [facility] 230 [place], [place] [phone] Marc Nicolas AGNP Mixed anxiety and depressive [...] Description 05/22/2025 12:00 [address] EDT Office [address] [facility] 230 [place], [place] [phone] Cheryl Galan DO 230 [facility] [place], [place] [phone] 08/01/2025 2:00 PM EST Clinical Support [facility] [address] [facility] [place] [address] Kira Bansal, MEREDITH documented as of this encounter Visit Diagnoses Diagnosis Mixed anxiety and depressive disorder Dysthymic disorder documented in this encounter Additional Health Concerns Assessment Noted Time PHQ-9 Depression Total Score: 13 023 3:27 PM EDT documented as of this encounter Care Teams Sales Force Developer Relationship Specialty Start Date End Date Marc Nicolas AGNP PCP - General Family Medicine 10/22/22 04/20/23 [place] [address] PCP - General Family Medicine 04/21/23 04/25/24 [place] [address] PCP - General Family Medicine 04/26/24 Colby Hirsch FNP [address] [place] [address] Nurse Practitioner Family Medicine 07/13/23 Candice Ugarte Agriculture WorkerApplication Manager 12/27/23 documented as of this encounter
--- OUTSIDE RECORDS SUMMARY | 2025-05-21 15:14 | XMS_ITS | Encounter Summary ---
Author Organization [employer] Address 75 [facility] 7t [place] [address] Care Team Providers Care Precast Concrete Products Installer Name Role Phone Marc Nicolas Primary Care Provider Unavail able Radha Shah Primary Care Provider +5 Colby Hirsch Unavailable Unavailable [facility] CERTIFIED HYPERBARIC TECHNOLOGIST Primary Care Provider [phone] Reason for Visit * Reason Comments Med Refill Encounter Details Date Type Department Care Team (Late st Contact Info) Description 03/10/[address] [facility] 230 [place] [address] Marc Nicolas AGNP Mixed anxiety and depressive [...] Will send to PCP on 03/18/23. Has PATIENT CARRIER scheduled 03/17/23. * Telephone Encounter - Chika Low - 03/15/2023 9:14 AM EDT Tc from patient requesting a med refill for medication tramadol [address] Nicolas documented in this encounter Plan of Treatment Upcoming Encounters Date Type Department Care Team (Late st Contact Info) Description 05/22/2025 12:00 PM EDT Office Visit [address] [address] Cheryl Galan DO [address] [place] [address] 08/01/2025 2:00 PM EST Clinical Support [address] [address] Kira Bansal RN documented as of this encounter Visit Diagnoses Diagnosis Mixed anxiety and depressive disorder Dysthymic disorder Multiple joint pain Pain in joint, multiple sites documented in this encounter Additional Health Concerns Assessment Noted Time PHQ-9 Depression Total Score: 13 03/05/ 023 3:27 PM EDT documented as of this encounter Care Teams Precast Concrete Products Installer Relationship Specialty Start Date End Date Marc Nicolas AGNP PCP - General Family Medicine 10/22/22 04/20/23 Radha Shah FNP [address] [place] [address] PCP - General Family Medicine 04/21/23 04/25/24 Yecenia Frias FNP [address] [place] [address] PCP - General Family Medicine 04/26/24 Colby Hirsch FNP 230 [place] [address] Nurse Practitioner Family Medicine 07/13/23 Candice Ugarte Crystallizer OperatorDirector Cardiovascular 12/27/23 documented as of this encounter
--- OUTSIDE RECORDS SUMMARY | 2025-05-21 15:14 | XMS_ITS | Encounter Summary ---
Author Organization [employer] Address 75 [facility] 7t [place] [address] Care Team Providers Care Manager Product Support Name Role Phone Marc Nicolas Primary Care Provider Unavail able Radha Shah Primary Care Provider [phone] Colby Hirsch Unavailable Unavailable [facility] DIRECTOR PRISON Primary Care Provider [phone] Reason for Visit * Reason Onset Date Comments Med Refill 03/10/2023 Encounter Details Date Type Department Care Team ([facility] Contact Info) Description 03/10/[address] [phone] Marc Nicolas AGNP Med Refill Social History [...] Description 05/22/2025 12:00 PM EDT [facility] [address] [place] [address] [place] [address] Cheryl Galan DO 230 [place], [place] [phone] 08/01/2025 2:00 PM EST Clinical Support [facility] MEDICINE 230 [place], [place] [phone] Kira Bansal, MEREDITH documented as of this encounter Visit Diagnoses Not on filedocumented in this encounter Additional Health Concerns Assessment Noted Time PHQ-9 Depression Total Score: 13 023 3:27 PM EDT documented as of this encounter Care Teams Manager Product Support Relationship Specialty Start Date End Date Marc Nicolas AGNP PCP - General Family Medicine 10/22/22 04/20/23 Radha Shah FNP [address] [place] [address] PCP - General Family Medicine 04/21/23 04/25/24 [place] Springs[place]ec[place] FNP [address] [place] [address] PCP - General Family Medicine 04/26/24 Colby Hirsch FNP [address] [place] [address] Nurse Practitioner Family Medicine 07/13/23 Candice Ugarte Profile Saw Setup OperatorRn Office 12/27/23 documented as of this encounter
--- OUTSIDE RECORDS SUMMARY | 2025-05-21 15:14 | XMS_ITS | Encounter Summary ---
Author Organization [employer] Address 75 [facility] [address] 7t [place] [address] Care Team Providers Care Payroll And Benefits Assistant Name Role Phone Radha Shah Primary Care Provider +[phone] Colby Hirsch Unavailable Unavailable [facility] OBSTETRICS GYN PHYSICIAN Primary Care Provider [phone] Encounter Details Date Type Department Care Team (Late st Contact Info) Description 03/08/2024 Orders Only [facility] MED & PEDS [address] [place] [address] Radha Shah FNP [address] [place] [address] Social History Tobacco Use Types Packs/Day Years [...] 05/22/2025 12:00 PM EDT Office Visit [address] [address] Cheryl Galan DO [address] [place] [address] 08/01/2025 2:00 PM EST Clinical Support [address] [address] Kira Bansal, MEREDITH documented as of this encounter Visit Diagnoses Not on filedocumented in this encounter Additional Health Concerns Assessment Noted Time PHQ-9 Depression Total Score: 7 03/07/20 24 10:13 AM EDT documented as of this encounter Care Teams Payroll And Benefits Assistant Relationship Specialty Start Date End Date Radha Shah FNP [address] [place] [address] PCP - General Family Medicine 04/21/23 04/25/24 Yecenia Frias FNP [address] [place] [address] PCP - General Family Medicine 04/26/24 Colby Hirsch FNP [address] [place] [address] Nurse Practitioner Family Medicine 07/13/23 Candice Ugarte Cat TenderParamedic Instructor 12/27/23 documented as of this encounter
--- OUTSIDE RECORDS SUMMARY | 2025-05-21 15:14 | XMS_ITS | Encounter Summary ---
Author Organization [employer] Address [address] [facility] [address] 7t [place] [address] Care Team Providers Care Fast Brim Pouncer Name Role Phone Radha Shah Primary Care Provider +7 Colby Hirsch Unavailable Unavailable [facility] FINANCIAL SERVICES MANAGER Primary Care Provider [phone] Encounter Details Date Type Department Care Team (Late st Contact Info) Description 02/16/2024 Orders Only [facility] MED & PEDS [address] [place] [address] Radha Shah FNP [address] [place] [address] Routine adult health maintenance (Primary Dx) Social [...] Description 05/22/2025 12:00 PM EDT Office Visit [address] [address] Cheryl Galan DO [address] [place] [address] 08/01/2025 2:00 PM EST Clinical Support [address] [address] Kira Bansal, MEREDITH documented as of this encounter Visit Diagnoses Diagnosis Routine adult health maintenance- Primary documented in this encounter Additional Health Concerns Assessment Noted Time PHQ-9 Depression Total Score: 6 12/28/19 24 11:17 AM EDT documented as of this encounter Care Teams Fast Brim Pouncer Relationship Specialty Start Date End Date Radha Shah FNP [address] [place] [address] PCP - General Family Medicine 04/21/23 04/25/24 Yecenia Frias FNP [address] [place] [address] PCP - General Family Medicine 04/26/24 Colby Hirsch FNP [address] [place] [address] Nurse Practitioner Family Medicine 07/13/23 Candice Ugarte Parts WasherFinancial Operations Clerk 12/27/23 documented as of this encounter
--- OUTSIDE RECORDS SUMMARY | 2025-05-21 15:14 | XMS_ITS | Encounter Summary ---
Author Organization [employer] Address [address] [facility] 7t [place] [address] Care Team Providers Care Gambling Counsellor Name Role Phone Radha Shah MUSHROOM GROWTH MEDIA MIXER Primary Care Provider [phone] Colby Hirsch Unavailable Unavailable [facility] Primary Care Provider [phone] Encounter Details Date Type Department Care Team (Late st Contact Info) Description 02/17/2024 Community Care Management [facility] [address] [place] [address] Radha Shah FNP [address] [place] [address] Social History Tobacco Use Types Packs/Day Years [...] Description 05/22/2025 12:00 PM EDT Office Visit [address] [address] Cheryl Galan DO [address] [place] [address] 08/01/2025 2:00 PM EST Clinical Support [address] [address] Kira Bansal RN documented as of this encounter Visit Diagnoses Not on filedocumented in this encounter Additional Health Concerns Assessment Noted Time PHQ-9 Depression Total Score: 6 12/28/19 24 11:17 AM EDT documented as of this encounter Care Teams Gambling Counsellor Relationship Specialty Start Date End Date Radha Shah FNP [address] [place] [address] PCP - General Family Medicine 04/21/23 04/25/24 Yecenia Frias FNP [address] [place] [address] PCP - General Family Medicine 04/26/24 Colby Hirsch FNP [address] [place] [address] Nurse Practitioner Family Medicine 07/13/23 Candice Ugarte Accounts Receivable AssistantWireless Sales Associate 12/27/23 documented as of this encounter
--- OUTSIDE RECORDS SUMMARY | 2025-05-21 15:14 | XMS_ITS | Encounter Summary ---
Author Organization [employer] Address [address] [facility] 7t [place] [address] Care Team Providers Care Folding Rules Printing Machine Operator Name Role Phone Marc Nicolas Primary Care Provider Unavail able Radha Shah Primary Care Provider [phone] Colby Hirsch Unavailable Unavailable [facility] FIRE CONTROL MECHANIC Primary Care Provider [phone] Reason for Visit * Reason Onset Date Comments Med Refill 03/16/2023 Encounter Details Date Type Department Care Team (Late st Contact Info) Description 03/16/2023 Telephone [facility] MEDICINE 230 [place], [place] [phone] Marc Nicolas AGNP Med Refill Social History [...] 03/16/2023 3:56 PM EDT Pt scheduled for OR MANAGER RV 03/17/23 @ 10am. Tramadol refill due 03/19/23, Clonazepam refill due 03/18/23.Will forward request to PCP after OR MANAGER appt 03/17/23. * Telephone Encounter - Natividad Pate - 03/16/2023 3:36 PM EDT Tc from pt requesting medication refill on traMADol (Ultram) 50 MG tablet and clonazePAM (KlonoPIN)0.5 MG tablet documented in this encounter Plan of Treatment Upcoming Encounters Date Type Department Care Team (Late st Contact Info) Description 05/22/2025 12:00 PM EDT Office Visit [address] [address] Cheryl Galan DO [address] [place] [address] 08/01/2025 2:00 PM EST Clinical Support [address] [address] Kira Bansal, MEREDITH documented as of this encounter Visit Diagnoses Not on filedocumented in this encounter Additional Health Concerns Assessment Noted Time PHQ-9 Depression Total Score: 13 07/ 023 3:27 PM EDT documented as of this encounter Care Teams Folding Rules Printing Machine Operator Relationship Specialty Start Date End Date Marc Nicolas AGNP PCP - General Family Medicine 10/22/22 04/20/23 Radha Shah FNP [address] [place] [address] PCP - General Family Medicine 04/21/23 04/25/24 Yecenia Frias FNP [address] [place] [address] PCP - General Family Medicine 04/26/24 Colby Hirsch FNP 230 [place] [address] Nurse Practitioner Family Medicine 07/13/23 Candice Ugarte Rand SewerRelationship Manager 12/27/23 documented as of this encounter
--- OUTSIDE RECORDS SUMMARY | 2025-05-21 15:14 | XMS_ITS | Encounter Summary ---
Author Organization [employer] Address [address] [facility] 7t [place] [address] Care Team Providers Care Air Plant Engineer Name Role Phone Colby Hirsch SMELTER LINER Unavailable Unavailable [facility] Primary Care Provider [phone] Encounter Details Date Type Department Care Team ([facility] st Contact Info) Description 08/11/2024 Telephone [facility] MEDICINE [address] [place] [address] [facility] 230 [place] [address] Social History Tobacco Use Types Packs/Day Years [...] 05/22/2025 12:00 PM EDT Office Visit [address] [address] Cheryl Galan DO [address] [place] [address] 08/01/2025 2:00 PM EST Clinical Support [address] [address] Kira Bansal RN documented as of this encounter Visit Diagnoses Not on filedocumented in this encounter Additional Health Concerns Assessment Noted Time PHQ-9 Depression Total Score: 7 03/07/20 24 10:13 AM EDT documented as of this encounter Care Teams Air Plant Engineer Relationship Specialty Start Date End Date Yecenia Frias FNP [address] [place] [address] PCP - General Family Medicine 04/26/24 Colby Hirsch FNP Nurse Practitioner Family Medicine 07/13/23 Candice Ugarte Auger SupervisorFashion Director 12/27/23 documented as of this encounter
--- OUTSIDE RECORDS SUMMARY | 2025-05-21 15:14 | XMS_ITS | Encounter Summary ---
Author Organization [employer] Address [address] [facility] [address] 7t [place] [address] Care Team Providers Care Subsea Engineer Name Role Phone Radha Shah FINGERPRINTER Primary Care Provider [phone] Colby Hirsch FINGERPRINTER Unavailable Unavailable [facility] FINGERPRINTER Primary Care Provider [phone] Reason for Visit * Reason Comments Med Refill Encounter Details Date Type Department Care Team (Late st Contact Info) Description 06/09/2023 Refill [facility]INE 230 [place] [address] Marilee Buckner FNP Multiple joint pain; Mixed [...] Description 05/22/2025 12:00 PM EDT Office Visit [address] [address] Cheryl Galan DO [address] [place] [address] 08/01/2025 2:00 PM EST Clinical Support [address] [address] Kira Bansal, MEREDITH documented as of this encounter Visit Diagnoses Diagnosis Multiple joint pain Pain in joint, multiple sites Mixed anxiety and depressive disorder Dysthymic disorder documented in this encounter Additional Health Concerns Assessment Noted Time PHQ-9 Depression Total Score: 18 023 11:25 AM EDT documented as of this encounter Care Teams Subsea Engineer Relationship Specialty Start Date End Date Radha Shah FNP [address] [place] [address] PCP - General Family Medicine 04/21/23 04/25/24 Yecenia Frias FNP [address] [place] [address] PCP - General Family Medicine 04/26/24 Colby Hirsch FNP [address] [place] [address] Nurse Practitioner Family Medicine 07/13/23 Candice Ugarte Rn HomecareSand Slinger Operator 12/27/23 documented as of this encounter
--- OUTSIDE RECORDS SUMMARY | 2025-05-21 15:14 | XMS_ITS | Encounter Summary ---
Author Organization [employer] Address [address] [facility] 7t [place] [address] Care Team Providers Care Animal Husbandman Name Role Phone Radha Shah ASSOCIATE FIELD SERVICE ENGINEER Primary Care Provider [phone] Colby Hirsch ASSOCIATE FIELD SERVICE ENGINEER Unavailable Unavailable [facility] ASSOCIATE FIELD SERVICE ENGINEER Primary Care Provider [phone] Reason for Visit * Reason Onset Date Comments Results 02/16/2024 Care Coordination 02/16/[address] Kelly joshua telephone call outreached Encounter Details Date Type Department Care Team ([facility] Contact Info) Description 02/16/2024 Telephone [facility] MEDICINE [address] [place] [address] Radha Shah FNP [address] [place] [address] Results; Care Coordination ([id number] telephone call outreached) Social History Tobacco [...] results: labs Date when done: 02/06 Facility: [facility] Please contact pt at [phone] documented in this encounter Plan of Treatment Upcoming Encounters Date Type Department Care Team (Late st Contact Info) Description 05/22/2025 12:00 PM EDT Office Visit [address] [address] Cheryl Galan DO 230 [place] [address] 08/01/2025 2:00 PM EST Clinical Support [facility] [place] [address] Kira Bansal RN documented as of this encounter Visit Diagnoses Not on filedocumented in this encounter Additional Health Concerns Assessment Noted Time PHQ-9 Depression Total Score: 6 12/28/19 24 11:17 AM EDT documented as of this encounter Care Teams Animal Husbandman Relationship Specialty Start Date End Date [place] [address] PCP - General Family Medicine 04/21/23 04/25/24 [place] FNP [address] [place] [address] PCP - General Family Medicine 04/26/24 Colby Hirsch FNP [address] [place] [address] Nurse Practitioner Family Medicine 07/13/23 Candice Ugarte Steward/Stewardess SecondMission Commander 12/27/23 documented as of this encounter
--- OUTSIDE RECORDS SUMMARY | 2025-05-21 15:14 | XMS_ITS | Encounter Summary ---
Author Organization [employer] Address [address] [facility] 7t [place] [address] Care Team Providers Care Hr Associate Name Role Phone Radha Shah MEDICAL CENTER DIRECTOR Primary Care Provider [phone] Colby Hirsch Unavailable Unavailable [facility] Primary Care Provider [phone] Reason for Visit * Reason Comments Med Refill Encounter Details Date Type Department Care Team (Late st Contact Info) Description 06/30/2023 Refill [facility] MEDICINE [address] [place] [address] Rahda Shah FNP [address] [place] [address] Multiple joint pain Social History Tobacco Use [...] 05/22/2025 12:00 PM EDT Office Visit [address] [address] Cheryl Galan DO [address] [place] [address] 08/01/2025 2:00 PM EST Clinical Support [address] [address] Kira Bansal, MEREDITH documented as of this encounter Visit Diagnoses Diagnosis Multiple joint pain Pain in joint, multiple sites documented in this encounter Additional Health Concerns Assessment Noted Time PHQ-9 Depression Total Score: 6 06/15/20 23 10:23 AM EDT documented as of this encounter Care Teams Hr Associate Relationship Specialty Start Date End Date Radha Shah FNP [address] [place] [phone] PCP - General Family Medicine 04/21/23 04/25/24 Yecenia Frias FNP [address] [place] [address] PCP - General Family Medicine 04/26/24 Colby Hirsch FNP [address] [place] [address] Nurse Practitioner Family Medicine 07/13/23 Candice Ugarte Soldering Machine FeederGenerator Man 12/27/23 documented as of this encounter
--- OUTSIDE RECORDS SUMMARY | 2025-05-21 15:14 | XMS_ITS | Encounter Summary ---
Author Organization [employer] Address [address] [facility] 7t [place] [address] Care Team Providers Care Lawn And Garden Technician Name Role Phone Radha Shah MATERIAL REQUISITIONER Primary Care Provider [phone] Colby Hirsch MATERIAL REQUISITIONER Unavailable Unavailable [facility] MATERIAL REQUISITIONER Primary Care Provider [phone] Reason for Visit * Reason Comments Med Refill Encounter Details Date Type Department Care Team (Late st Contact Info) Description 06/16/2023 Refill [facility] MEDICINE 230 [place] [address] Marc Nicolas AGNP Pain Social History Tobacco [...] 05/22/2025 12:00 PM EDT Office Visit [address] [address] Cheryl Galan DO [address] [place] [address] 08/01/2025 2:00 PM EST Clinical Support [address] [address] Kira Bansal RN documented as of this encounter Visit Diagnoses Diagnosis Pain Generalized pain documented in this encounter Additional Health Concerns Assessment Noted Time PHQ-9 Depression Total Score: 6 06/15/20 23 10:23 AM EDT documented as of this encounter Care Teams Lawn And Garden Technician Relationship Specialty Start Date End Date Radha Shah FNP [address] [place] [address] PCP - General Family Medicine 04/21/23 04/25/24 [place] F[place] [address] [place] [address] PCP - General Family Medicine 04/26/24 Colby Hirsch FNP [address] [place] [address] Nurse Practitioner Family Medicine 07/13/23 Candice Ugarte Meter Reading ClerkAmortization Schedule Clerk 12/27/23 documented as of this encounter
== END 2025-05-21 14:21 | disposition home or self-care (01) ==
LOC: HO.ENCR 13:36
PROVIDERS: Visit Provider Physician Assistant
DX: E11.9 Type 2 diabetes mellitus without complications (principal); E66.01 Morbid (severe) obesity due to excess calories; I10 Essential (primary) hypertension

== ENCOUNTER → 2025-05-21 13:36 | Outpatient (BNVA) | payer MEDICAID, SELFPAY | PROVIDERS: Visit Provider Physician Assistant | DX: E11.9 Type 2 diabetes mellitus without complications (principal); E78.5 Hyperlipidemia, unspecified; E66.01 Morbid (severe) obesity due to excess calories; I10 Essential (primary) hypertension; Z79.84 Long term (current) use of oral hypoglycemic drugs; Z68.37 Body mass index [BMI] 37.0-37.9, adult | CPT/HCPCS: 82947; 83036; 99212 ==

== ENCOUNTER 2025-05-22 13:09 | Outpatient (REF) | payer MEDICAID, SELFPAY ==
--- OUTSIDE RECORDS SUMMARY | 2024-01-26 11:20 | XMS_ITS ---
Author Organization [facility] Address [address] [place] [phone] Care Team Providers Care Tanker Service Attendant Name Role Phone Radha Rodriguez Primary Care Provider Jaylan Clancy Unavailable [phone] REASON FOR VISIT Patient presents today for FATTY LIVER Encounters Encounter Location Date Provider Diagnosis [facility] [address] [place] [phone] 01/26/2024 Jaylan Neal Plan Of Treatment No Information Progress Notes * MADHU ABASDOB: 0 (44 yo F)Acc No.[id number]:01/26/2024 Progress Notes Patient: HARMAN MCKEON Provider: Geovani Neal MD :1980 A ge:43 Y S ex:Female Date:01/26/2024 Address:[address] [place], [place] [id number] Pcp:JACINTO Raoms Subjective: * Chief Complaints: * 1 . [...] Date: 01/26/2024 Generated for Ashlee perez/Lisa/eTransmitting on: 05/22/2025 02:21 PM EDT
--- OUTSIDE RECORDS SUMMARY | 2024-06-20 09:20 | XMS_ITS ---
Author Organization [facility] Address [address] [place] [address] Care Team Providers Care Inspector Receiving Name Role Phone Radha Rodriguez Primary Care Provider Jaylan Clancy Unavailable [phone] REASON FOR VISIT Patient presents today for FATTY LIVER Encounters Encounter Location Date Provider Diagnosis [facility] [address] [place] [address] 06/20/2024 Jaylna Neal Plan Of Treatment No Information Progress Notes * MADHU JAZLYNHAYLEESDOB: 0 (44 yo F)Acc No.[id number]:06/20/2024 Progress Notes Patient: HARMAN MCKEON Provider: Geovani Neal MD :1980 A ge:43 Y S ex:Female Date:06/20/2024 Address:[address] [place], [place] [phone] Pcp:JACINTO Ramos Subjective: * Chief Complaints: * [...] Neal MD Date: 1 Generated for Ashlee perez/Lisa/eTransmitting on: 0 05/22/2025 08:23 AM EDT
--- OUTSIDE RECORDS SUMMARY | 2024-06-20 09:20 | XMS_ITS ---
Author Organization [facility] Address [address] [place] [address] Care Team Providers Care Ticket Machine Operator Name Role Phone Radha Rodriguez Primary Care Provider Jaylan Clancy [phone] REASON FOR VISIT FATTY LIVER Encounters Encounter Location Date Provider Diagnosis [facility] [address] [place] [address] 06/20/2024 Jaylan Neal Plan Of Treatment No Information Progress Notes * ABA LEUNGSDOB: 0 (44 yo F)Acc No.[id number]:06/20/2024 Progress Notes Patient: HARMAN MCKEON Provider: Geovani Neal MD :1980 A ge:43 Y S ex:Female Date:06/20/2024 Address:[address] [place], [place] [phone] Pcp:JACINTO Ramos Subjective: * Chief Complaints: * [...] 1 Generated for Ashlee perez/Lisa/eTodiliasmitting on: 0 05/22/2025 08:23 AM EDT
--- NOTE | ~2025-05-22 | XR_ITS ---
EXAMINATION: XR FOOT, RIGHT CLINICAL INFORMATION: b/l heel pain COMPARISON: None available. TECHNIQUE: AP, lateral, and oblique views of the right foot. FINDINGS: There is mild hallux valgus deformity. No degenerative changes are seen. No fractures identified. There is small calcaneal spur. XR/XR foot RT min 3V IMPRESSION: Small calcaneal spur. Mild hallux valgus deformity. Electronically signed by: Dipak Castaneda MD 05/22/2025 01:41 PM EDT
--- NOTE | ~2025-05-22 | XR_ITS ---
EXAMINATION: XR FOOT, LEFT CLINICAL INFORMATION: b/l heel pain COMPARISON: None available. TECHNIQUE: AP, lateral, and oblique views of the left foot. FINDINGS: There is mild hallux valgus deformity. Joint spaces are preserved. No other abnormalities are seen. XR/XR foot LT min 3V IMPRESSION: Mild hallux valgus deformity. Electronically signed by: Dipak Castaneda MD 05/22/2025 01:40 PM EDT
--- OUTSIDE RECORDS SUMMARY | 2025-05-22 12:00 | XMS_ITS | Encounter Summary ---
Author Organization [employer] Address [address] [facility] 7t [place] [address] Care Team Providers Care Tractor Drill Operator Name Role Phone Colby Hirsch SAGGER FILLER Unavailable Unavailable [facility] SAGGER FILLER Primary Care Provider [phone] Reason for Referral * Neurology (Routine) - Authorized Specialty Diagnoses / Procedures Referred By Aminta anderson Referred To Contact Diagnoses Paresthesia of both feet Procedures Nerve conduction test Cheryl Galan DO [address] [place] [address] Phone: tel: fax: [address] Phone: tel: fax: Referral ID Status Reason Start Date Expiration Date V isits Requested Visits Authorized [id number] Authorized 05/22/2025 05/22/2026 1 1 * Neurology (Routine) - Authorized Specialty Diagnoses / Procedures Referred By Aminta t Referred To Contact Diagnoses Paresthesia of both feet Procedures EMG Cheryl Galan DO [address] [place] [address] Phone: tel: fax: [address] Phone: tel: fax: Referral ID Status Reason Start Date Expiration Date V isits Requested Visits Authorized [id number] Authorized 05/22/2025 05/22/2026 1 1 * Imaging (Routine) - Authorized Specialty Diagnoses / Procedures Referred By Elizabethac t Referred To Contact Radiology Diagnoses Morning headache Procedures CT Head w/o Contrast Cheryl Galan DO [address] [place] [address] Phone: tel: fax: [address] Phone: tel: fax: Referral ID Status Reason Start Date Expiration Date V isits Requested Visits Authorized [id number] Authorized 05/22/2025 05/22/2026 1 1 * Hospital - Outpatient (Routine) - Authorized Specialty Diagnoses / Procedures Referred By Aminta anderson Referred To Contact Diagnoses Morning headache Procedures Polysomnography Cheryl Galan DO [address] [place] [address] Phone: tel: fax: [address] Phone: tel: fax: Referral ID Status Reason Start Date Expiration Date V isits Requested Visits Authorized [id number] Authorized 05/22/2025 05/22/2026 1 1 Encounter Details Date Type Department Care Team (Late st Contact Info) Description 05/22/2025 12:00 PM EDT Office Visit [facility] [address] [place], [place] [phone] Cheryl Galan DO [address] [place], [place] Paresthesia of both feet (Primary Dx); Pain of both heels; Morning headache; Type 2 diabetes mellitus without complication, with long-term current use of insulin (CMS/HCC); Pain of left thumb Social History Tobacco Use Types Packs/Day Years Used Date Smoking Tobacco: Never Passive Smoke Exposure: Never Smokeless Tobacco: Never Alcohol Use Standard Drinks/Week Comments Never 0 (1 standard drink = 0.6 oz pur e alcohol) Depression Answer Date Recorded Patient Health Questionnaire-9 Score 10 05/22/2025 Patient Health Questionnaire-9 Score 10 05/22/2025 Last PHQ-9: Questionnaire Data Not on file 0 05/22/2025 Housing Stability Answer Date Recorded What is your housing situation today? I have dell jennifer 01/12/[address] you li [...] Answer Date Recorded Patient Health Questionnaire-2 Score 4 05/22/2025 Internet Access Answer Date Recorded Internet Access [...] Sign Reading Time Taken Comments Blood Pressure 132/70 05/22/2025 12:57 PM EDT Pulse 82 05/22/2025 12:57 PM EDT Temperature 36.1 C (97 F) 05/22/2025 12:57 PM EDT Respiratory Rate 21 05/22/2025 12:57 PM EDT Oxygen Saturation 98% 05/22/2025 12:57 PM EDT Inhaled Oxygen Concentration - - Weight 88.9 kg (196 lb) 05/22/2025 12:57 PM EDT Height 152.4 cm (5') 05/22/2025 12:57 PM EDT Body Mass Index 38.28 05/22/2025 12:57 PM EDT documented in this encounter Functional Status * Over the past 2 weeks, how often have you been bothered by any of the following problems? Question Answer Date of Assessment Author Patient Health Questionnaire -2 Score 4 05/22/2025 1:53 PM EDT Symone Rhodes MA * Little interest or pleasure in doing things Answer Date of Assessment Author Several days 05/22/2025 1:53 PM EDT Jaimee Rhodes MA * Feeling down, depressed, or hopeless Answer Date of Assessment Author Nearly every day 05/22/2025 1:53 PM EDT Symone Rhodes MA * Trouble falling or staying asleep, or sleeping too much Answer Date of Assessment Author Nearly every day 05/22/2025 1:53 PM EDT Symone Rhodes MA * Feeling tired or having little energy Answer Date of Assessment Author Several days 05/22/2025 1:53 PM EDT Jaimee Rhodes MA * Poor appetite or overeating Answer Date of Assessment Author Not at all 05/22/2025 1:53 PM EDT Jaimee Rhodes MA * Feeling bad about yourself - or that you are a failure or have let yourself or your family down Answer Date of Assessment Author Not at all 05/22/2025 1:53 PM EDT Jaimee Rhodes MA * Trouble concentrating on things, such as reading the newspaper or watching television Answer Date of Assessment Author Several days 05/22/2025 1:53 PM EDT Jaimee Rhodes MA * Moving or speaking so slowly that other people could have noticed? Or the opposite - being so fidgety or restless that you have been moving around a lot more than usual. Answer Date of Assessment Author Several days 05/22/2025 1:53 PM EDT Jaimee Rhodes MA * Thoughts that you would be better off or hurting yourself in some way Answer Date of Assessment Author Not at all 05/22/2025 1:53 PM EDT Jaimee Rhodes MA * Patient Health Questionnaire-9 Score Answer Date of Assessment Author 10 05/22/2025 1:53 PM EDT Jaimee Rhodes MA * How difficult have these problems made it for you to do your work, take care of things at home, or get along with other people? Answer Date of Assessment Author Somewhat difficult 05/22/2025 1:53 PM EDT Symone Rhodes MA * Over the last 2 weeks, how often have you been bothered by any of the following problems? Question Answer Date of Assessment Author Feeling nervous, anxious, or on edge 1 05/22/2025 1:56 PM EDT Symone Rhodes MA Not being able to stop or co ntrol worrying 1 05/22/2025 1:56 PM EDT Symone Rhodes MA Worrying too much about diff erent things 3 05/22/2025 1:56 PM EDT Symone Rhodes MA Trouble relaxing 1 05/22/2025 1:56 PM EDT Symone Laws MA Being so restless that it is hard to sit still 3 05/22/2025 1:56 PM MANJITT Symone Rhodes MA Becoming easily annoyed or irritable 2 05/22/2025 1:56 PM EDT Symone Rhodes MA Feeling afraid as if somethi ng awful might happen 0 05/22/2025 1:56 PM EDT Symone Rhodes MA TAVON-7 Total Score 11 05/22/2025 1:56 PM MANJITT Symone Rhodes MA documented as of this encounter Plan of Treatment Upcoming Encounters Date Type Department Care Team (Late st Contact Info) Description 07/04/2025 2:00 PM EST Office Visit [facility] [address] [place] [address] Yecenia Frias FNP [address] [place] [address] 08/01/2025 2:00 PM EST Clinical Support [facility] [address] [place] [address] Kira Bansal RN Scheduled Orders Name Type Priority Associated Diagnoses Orde r Schedule Polysomnography [facility] Routine Morning headache Expected: 05/22/2025 (Approximate), Expires: 05/22/2026 CT Head w/o Contrast Imaging Routine Morning headache Expected: 05/22/2025, Expires: 05/22/2026 EMG Neurology Routine Paresthesia of both feet Expected: 05/22/2025, Expires: 11/19/2025 Nerve conduction test Neurology Routine Paresthesia of both feet Expected: 05/22/2025 (Approximate), Expires: 05/22/2026 documented as of this encounter Procedures Procedure Name Priority Date/Time Associated Diagnosis Comments XR FOOT 3+ VIEWS RIGHT Routine 05/22/2025 1:30 PM EDT Pain of both heels XR FOOT 3+ VIEWS LEFT Routine 05/22/2025 1:30 PM EDT Pain of both heels POCT GLYCATED HEMOGLOBIN, TOTAL Routine 05/22/2025 1:01 PM EDT Type 2 diabetes mellitus without complication, with long-term current use of insulin ([facility]) POCT GLUCOSE Routine 05/22/2025 12:59 PM EDT Type 2 diabetes mellitus without complication, with long-term current use of insulin ([facility]) documented in this encounter Results * XR Foot 3+ Views Left (05/22/2025 1:30 PM EDT) Anatomical Region Laterality Modality Lower Extremities, Foot Left Radiogra phic Imaging 05/22/2025 1:30 PM EDT Narrative 05/22/2025 1:42 PM EDT [facility] [address] [place] [address] XRay Report Signed Patient: Sacha Contreras MR#: [id number] : 1980 Acct:[id number] Age/Sex: 44 / F ADM Date: 05/22/25 Loc: [facility] Attending Dr: Cheryl Galan DO Ordering Physician: Cheryl Galan DO Date of Service: 05/22/25 Procedure(s): XR foot LT min 3V Accession Number(s): [id number] cc: Cheryl Galan DO Reason for Exam: b/l heel pain EXAMINATION: XR FOOT, LEFT CLINICAL INFORMATION: b/l heel pain COMPARISON: None available. TECHNIQUE: AP, lateral, and oblique views of the left foot. FINDINGS: There is mild hallux valgus deformity. Joint spaces are preserved. No other abnormalities are seen. XR/XR foot LT min 3V IMPRESSION: Mild hallux valgus deformity. Electronically signed by: Dipak Castaneda MD 05/22/2025 01:40 PM EDT RP Dictated By: Dipak Castaneda MD Signed By: <Electronically signed by Dipak Castaneda MD in OV> 05/22/25 1340 DD/ 1330 TD/TT: 05/22/25 1334 Process Controller: Procedure Note Donotuseinterpreter, Image - 05/22/[address] [address] XRay Report Signed Patient: Lai Contreras#: [id number] : 1980Acct:[id number] Age/Sex: 44 / FADM Date: 05/22/25 Loc: [facility] Attending Dr: Cheryl Galan DO Ordering Physician: Cheryl Galan DO Date of Service: 05/22/25 Procedure(s): XR foot LT min 3V Accession Number(s): [id number] cc: Cheryl Galan DO Reason for Exam: b/l heel pain EXAMINATION: XR FOOT, LEFT CLINICAL INFORMATION: b/l heel pain COMPARISON: None available. TECHNIQUE: AP, lateral, and oblique views of the left foot. FINDINGS: There is mild hallux valgus deformity. Joint spaces are preserved. No other abnormalities are seen. XR/XR foot LT min 3V IMPRESSION: Mild hallux valgus deformity. Electronically signed by: Dipak Castaneda MD 05/22/2025 01:40 PM EDT RP Dictated By: Dipak Castaneda MD Signed By: <Electronically signed by Dipak Castaneda MD in OV> 05/22/25 1340 DD/ 1330 TD/TT: 05/22/25 1334 Process Controller: Cheryl Galan DO IMG XR PROCEDURES Final Resu lt * XR Foot 3+ Views Right (05/22/2025 1:30 PM EDT) Anatomical Region Laterality Modality Lower Extremities, Foot Right Radiogra phic Imaging 05/22/2025 1:30 PM EDT Narrative 05/22/2025 1:43 [place] [address] XRay Report Signed Patient: Sacha Contreras MR#: [id number] : 1980 Acct:[id number] Age/Sex: 44 / F ADM Date: 05/22/25 Loc: HO.HHCX Attending Dr: Cheryl Galan DO Ordering Physician: Cheryl Galan DO Date of Service: 05/22/25 Procedure(s): XR foot RT min 3V Accession Number(s): [id number] cc: Cheryl Galan DO Reason for Exam: b/l heel pain EXAMINATION: XR FOOT, RIGHT CLINICAL INFORMATION: b/l heel pain COMPARISON: None available. TECHNIQUE: AP, lateral, and oblique views of the right foot. FINDINGS: There is mild hallux valgus deformity. No degenerative changes are seen. No fractures identified. There is small calcaneal spur. XR/XR foot RT min 3V IMPRESSION: Small calcaneal spur. Mild hallux valgus deformity. Electronically signed by: Dipak Castaneda MD 05/22/2025 01:41 PM EDT RP Dictated By: Dipak Castaneda MD Signed By: <Electronically signed by Dipak Castaneda MD in OV> 05/22/25 1341 DD/ 133 TD/TT: 05/22/251333 Process Controller: Procedure Note Donotuseinterpreter, Image - 05/22/[address] [address] XRay Report Signed Patient: Xavier ContrerasR#: [id number] : 1980Acct:[id number] Age/Sex: 44 / FADM Date: 05/22/25 Loc: HO.HHCX Attending Dr: Cheryl Galan DO Ordering Physician: Cheryl Galan DO Date of Service: 05/22/25 Procedure(s): XR foot RT min 3V Accession Number(s): [id number] cc: Cheryl Galan DO Reason for Exam: b/l heel pain EXAMINATION: XR FOOT, RIGHT CLINICAL INFORMATION: b/l heel pain COMPARISON: None available. TECHNIQUE: AP, lateral, and oblique views of the right foot. FINDINGS: There is mild hallux valgus deformity. No degenerative changes are seen. No fractures identified. There is small calcaneal spur. XR/XR foot RT min 3V IMPRESSION: Small calcaneal spur. Mild hallux valgus deformity. Electronically signed by: Dipak Castaneda MD 05/22/2025 01:41 PM EDT RP Dictated By: Dipak Castaneda MD Signed By: <Electronically signed by Dipak Castaneda MD in OV> 05/22/25 1341 DD/ 1330 TD/TT: 05/22/251333 Process Controller: Cheryl Galan DO IMG XR PROCEDURES Final Resu lt * (ABNORMAL) POCT Hgb A1c (05/22/2025 1:01 PM EDT) Hemoglobin A1C 6.1(A) 4.0 - 5.7 % QC Media Lot # [id number] Lot# Expiration Date Blood 05/22/2025 1:01 PM EDT Cheryl Adama DO POINT OF CARE TEST ENTER/SANCHO T ORDERABLES Final Result * POCT Glucose (05/22/2025 12:59 PM EDT) Glucose Blood, POC 107 60 - 200 mg/dL QC Media Lot # [id number] Lot# Expiration Date Blood Capillary blood specimen / Unknown 05/22/2025 12:59 PM EDT Cheryl Galan DO POINT OF CARE TEST ENTER/SANCHO T ORDERABLES Final Result documented in this encounter Visit Diagnoses Diagnosis Paresthesia of both feet- Primary Pain of both heels Morning headache Type 2 diabetes mellitus without complication, with long-term current use of insulin (HCC) Pain of left thumb documented in this encounter Additional Health Concerns Assessment Noted Time PHQ-9 Depression Total Score: 10 025 1:53 PM EDT documented as of this encounter Care Teams Tractor Drill Operator Relationship Specialty Start Date End Date Yecenia Frias FNP [address] [place] [address] PCP - General Family Medicine 04/26/24 Colby Hirsch FNP Nurse Practitioner Family Medicine 07/13/23 Candice Ugarte Director Software Quality AssuranceFood Checkers And Cashiers Supervisor 12/27/23 documented as of this encounter
--- OUTSIDE RECORDS SUMMARY | 2025-05-22 14:21 | XMS_ITS | Encounter Summary ---
Author Organization [employer] Address [address] [facility] [address] 7t [place] [address] Care Team Providers Care Rn Transfer Name Role Phone Marc Nicolas Primary Care Provider Unavail able Radha Shah DESIGN ENGINEER Primary Care Provider [phone] Colby Hirsch Unavailable Unavailable [facility] DESIGN ENGINEER Primary Care Provider [phone] Reason for Visit * Reason Onset Date Comments Referral 01/26/2023 Encounter Details Date Type Department Care Team (Late st Contact Info) Description 01/26/[address] [facility] [address] [place] [address] Marc Nicolas AGNP Referral Social History Tobacco [...] Description 07/04/2025 2:00 PM EST Office Visit [address] [address] [place] F[place] [address] [place] [address] 08/01/2025 2:00 PM EST Clinical Support [address] [address] Kira Bansal RN documented as of this encounter Visit Diagnoses Not on filedocumented in this encounter Additional Health Concerns Assessment Noted Time PHQ-9 Depression Total Score: 19 023 3:57 PM EDT documented as of this encounter Care Teams Rn Transfer Relationship Specialty Start Date End Date Marc Nicolas AGNP PCP - General Family Medicine 10/22/22 04/20/23 Radha Shah FNP [address] [place] [address] PCP - General Family Medicine 04/21/23 04/25/24 [place] F[place] [address] [place] [address] PCP - General Family Medicine 04/26/24 Colby Hisrch FNP [address] [place] [address] Nurse Practitioner Family Medicine 07/13/23 Candice Ugarte Face CleanerBioinformatics Associate 12/27/23 documented as of this encounter
--- OUTSIDE RECORDS SUMMARY | 2025-05-22 14:21 | XMS_ITS | Encounter Summary ---
Author Organization [employer] Address [address] [facility] 7t [place] [address] Care Team Providers Care Clay Products Glazer Name Role Phone Colby Hirsch ACADEMIC DEPARTMENT CHAIR Unavailable Unavailable [facility] Primary Care Provider [phone] Reason for Visit * Reason Onset Date Comments Chart Prep 05/22/2025 Encounter Details Date Type Department Care Team ([facility] st Contact Info) Description 05/22/2025 Telephone [facility] [address] [place] [address] [facility] [address] [place] [address] Chart Prep Social History Tobacco Use Types Packs/Day Years [...] encounter Miscellaneous Notes * Telephone Encounter - Symone Rhodes MA - 05/22/2025 8:26 AM EDT Chart Prep Labs: not applicable Images: not applicable Referrals: not applicable Vaccines due: Covid, Flu, Hep A, and HPV Screenings: colonoscopy and LMP Overdue care gaps: A1c, Glucose, SBIRT, PHQ-9, TAVON-7, and Disability screen documented in this encounter Plan of Treatment Upcoming Encounters Date Type Department Care Team (Late st Contact Info) Description 07/04/2025 2:00 PM EST Office Visit [address] [address] [place] [address] [place] [address] 08/01/2025 2:00 PM EST Clinical Support [address] [address] Kira Bansal RN documented as of this encounter Visit Diagnoses Not on filedocumented in this encounter Additional Health Concerns Assessment Noted Time PHQ-9 Depression Total Score: 025 1:53 PM EDT documented as of this encounter Care Teams Clay Products Glazer Relationship Specialty Start Date End Date [place] FNP [address] [place] [address] PCP - General Family Medicine 04/26/24 Colby Hirsch FNP Nurse Practitioner Family Medicine 07/13/23 Candice Ugarte Php Website DeveloperSupplemental Manager 12/27/23 documented as of this encounter
--- OUTSIDE RECORDS SUMMARY | 2025-05-22 14:21 | XMS_ITS | Encounter Summary ---
Author Organization [employer] Address [address] [facility] 7t [place] [address] Care Team Providers Care Shell Coremaker Name Role Phone Radha Shah ADVERTISING DIRECTOR Primary Care Provider [phone] Colby Hirsch Unavailable Unavailable [facility] Primary Care Provider [phone] Reason for Visit * Reason Comments Med Refill Encounter Details Date Type Department Care Team (Late st Contact Info) Description 11/24/2023 Refill [facility] [address] [place] [address] Radha Shah FNP [address] [place] [address] Multiple joint pain Social History Tobacco Use [...] Description 07/04/2025 2:00 PM EST Office Visit [address] [address] Yecenia Frias FNP [address] [place] [address] 08/01/2025 2:00 PM EST Clinical Support [address] [address] Kira Bansal RN documented as of this encounter Visit Diagnoses Diagnosis Multiple joint pain Pain in joint, multiple sites documented in this encounter Additional Health Concerns Assessment Noted Time PHQ-9 Depression Total Score: 8 09/02/19 24 11:12 AM EST documented as of this encounter Care Teams Shell Coremaker Relationship Specialty Start Date End Date Radha Shah FNP [address] [place] [address] PCP - General Family Medicine 04/21/23 04/25/24 Yecenia Frias FNP [address] [place] [address] PCP - General Family Medicine 04/26/24 Colby Hirsch FNP [address] [place] [address] Nurse Practitioner Family Medicine 07/13/23 Candice Ugarte Management ProfessorCommissary Superintendent 12/27/23 documented as of this encounter
--- OUTSIDE RECORDS SUMMARY | 2025-05-22 14:21 | XMS_ITS | Encounter Summary ---
Author Organization [employer] Address [address] [facility] [address] 7[address] [place] [address] Care Team Providers Care Warehouse Guard Name Role Phone Radha Shah WIRER PASSENGER CAR Primary Care Provider [phone] Colby Hirsch WIRER PASSENGER CAR Unavailable Unavailable [facility] WIRER PASSENGER CAR Primary Care Provider [phone] Reason for Visit * Reason Comments Med Refill Encounter Details Date Type Department Care Team (Late st Contact Info) Description 06/04/2023 Refill [facility] [address] [place] [address] Marilee Buckner FNP Multiple joint pain; Mixed [...] Nearly every day 11:25 AM EDT Muriel [place]nos Feeling bad about yourself - or that [...] Description 07/04/2025 2:00 PM EST Office Visit [facility] [address] [place] [address] Yecenia Frias FNP [address] [place] [address] 08/01/2025 2:00 PM EST Clinical Support [address] [address] Kira Bansal, RN documented as of this encounter Visit Diagnoses Diagnosis Multiple joint pain Pain in joint, multiple sites Mixed anxiety and depressive disorder Dysthymic disorder documented in this encounter Additional Health Concerns Assessment Noted Time PHQ-9 Depression Total Score: 0 04/02/20 23 2:10 PM EDT documented as of this encounter Care Teams Warehouse Guard Relationship Specialty Start Date End Date Radha Shah FNP [address] [place] [address] PCP - General Family Medicine 04/21/23 04/25/24 [place] F[place] [address] [place] [address] PCP - General Family Medicine 04/26/24 Colby Hirsch FNP [address] [place] [address] Nurse Practitioner Family Medicine 07/13/23 Candice Ugarte Inside Sales DirectorAssistant Director 12/27/23 documented as of this encounter
--- OUTSIDE RECORDS SUMMARY | 2025-05-22 14:21 | XMS_ITS | Encounter Summary ---
Author Organization [employer] Address [address] [facility] 7t [place] [address] Care Team Providers Care Glue Bone Crusher Name Role Phone Colby Hirsch SPEECH AND LANGUAGE CLINICIAN Unavailable Unavailable [facility] Primary Care Provider [phone] Reason for Visit * Reason Onset Date Comments telephone call 05/16/2025 Encounter Details Date Type Department Care Team ([facility] st Contact Info) Description 05/16/2025 Telephone [facility] [address] [place] [address] [facility] [address] [place] [address] telephone call Social History Tobacco Use Types [...] 9:23 AM EDT TC placed to patient [phone] using trueEX #ID [id number] regarding below message. RN status checked patient. [...] her she can get [facility] but she said she wanted to see her pcp. documented in this encounter Plan of Treatment Upcoming Encounters Date Type Department Care Team (Late st Contact Info) Description 07/04/2025 2:00 PM EST Office Visit [address] [address] Yecenia Frias FNP [address] [place] [address] 08/01/2025 2:00 PM EST Clinical Support [address] [phone] Kira Bansal, MEREDITH documented as of this encounter Visit Diagnoses Not on filedocumented in this encounter Additional Health Concerns Assessment Noted Time PHQ-9 Depression Total Score: 0 02/27/20 25 10:29 AM EDT documented as of this encounter Care Teams Glue Bone Crusher Relationship Specialty Start Date End Date Yecenia Frias FNP [address] [place] [address] PCP - General Family Medicine 04/26/24 Colby Hirsch FNP Nurse Practitioner Family Medicine 07/13/23 Candice Ugarte Resistor InspectorNuclear Fuel Enrichment Technician 12/27/23 documented as of this encounter
--- OUTSIDE RECORDS SUMMARY | 2025-05-22 14:21 | XMS_ITS | Encounter Summary ---
Author Organization [employer] Address [address] [facility] 7t [place] [address] Care Team Providers Care Resident Associate Name Role Phone Radha Shah TIG WELDER Primary Care Provider [phone] Colby Hirsch Unavailable Unavailable [facility] Primary Care Provider [phone] Reason for Visit * Reason Comments Med Refill Encounter Details Date Type Department Care Team (Late st Contact Info) Description 04/12/2024 Refill [facility] [address] [place] [address] Radha Shah FNP [address] [place] [address] Multiple joint pain Social History Tobacco Use [...] TAVON-7 Total Score 14 04/13/2024 1:28 PM MANJITT Kira Bansal RN documented as of this encounter Plan of Treatment Upcoming Encounters Date Type Department Care Team (Late st Contact Info) Description 07/04/2025 2:00 PM EST Office Visit [facility] [address] [place] [address] Yecenia Frias FNP [address] [facility] [place] [address] 08/01/2025 2:00 PM EST Clinical Support [facility] [facility] [place] [address] Kira Bansal RN documented as of this encounter Visit Diagnoses Diagnosis Multiple joint pain Pain in joint, multiple sites documented in this encounter Additional Health Concerns Assessment Noted Time PHQ-9 Depression Total Score: 7 03/07/20 24 10:13 AM EDT documented as of this encounter Care Teams Resident Associate Relationship Specialty Start Date End Date Radha Shah FNP [facility] [place] [address] PCP - General Family Medicine 04/21/23 04/25/24 Y[place]enia [place] [address] PCP - General Family Medicine 04/26/24 Col[place] [address] Nurse Practitioner Family Medicine 07/13/23 Candice Ugarte Business DeanNewspaper Reporter 12/27/23 documented as of this encounter
--- OUTSIDE RECORDS SUMMARY | 2025-05-22 14:21 | XMS_ITS | Encounter Summary ---
Author Organization [employer] Address [address] [facility] [address] 7t [place] [address] Care Team Providers Care Director Of Counterintelligence Name Role Phone Radha Shah Primary Care Provider + Colby Hirsch Unavailable Unavailable [facility] SLUSHER OPERATOR Primary Care Provider [phone] Encounter Details Date Type Department Care Team (Late st Contact Info) Description 10/29/2023 Orders Only [facility] [address] [place] [address] Radha Shah FNP [address] [place] [address] Social History Tobacco Use Types Packs/Day Years [...] Description 07/04/2025 2:00 PM EST Office Visit [address] [address] Yecenia Frias FNP [address] [place] [address] 08/01/2025 2:00 PM EST Clinical Support [address] [address] Kira Bansal RN documented as of this encounter Visit Diagnoses Not on filedocumented in this encounter Additional Health Concerns Assessment Noted Time PHQ-9 Depression Total Score: 8 09/02/19 24 11:12 AM EST documented as of this encounter Care Teams Director Of Counterintelligence Relationship Specialty Start Date End Date Radha Shah FNP [address] [place] [address] PCP - General Family Medicine 04/21/23 04/25/24 Yecenia Frias FNP [address] [place] [address] PCP - General Family Medicine 04/26/24 Colby Hirsch FNP [address] [place] [address] Nurse Practitioner Family Medicine 07/13/23 Candice Ugarte Gas Substation OperatorPatient Account Liaison 12/27/23 documented as of this encounter
--- OUTSIDE RECORDS SUMMARY | 2025-05-22 14:21 | XMS_ITS | Encounter Summary ---
Author Organization [employer] Address [address] [facility] 7t [place] [address] Care Team Providers Care Refinery Operator Light Ends Recovery Name Role Phone Radha Shah TELEVISION PRODUCTION ASSISTANT Primary Care Provider + Colby Hirsch Unavailable Unavailable [facility] TELEVISION PRODUCTION ASSISTANT Primary Care Provider [phone] Reason for Visit * Reason Onset Date Comments telephone call 10/29/2023 Encounter Details Date Type Department Care Team (Late st Contact Info) Description 10/29/2023 Refill [facility] [address] [place] [address] Radha Shah FNP [address] [place] [address] Multiple joint pain Social History Tobacco Use [...] does not remember the program name. A seafood service team member from the program told her that if she still want to be in the program she needs a referral from PCP. Please call patient with any concern or questions. * Telephone Encounter - Celine Pate - 11/12/2023 9:46 AM EDT Patient walked in requesting a referral for a program. Patient does not remember the program name. A seafood service team member from the program told her that if she still want to be in the program she needs a referral from PCP. Please call patient with any concern or questions. documented in this encounter Plan of Treatment Upcoming Encounters Date Type Department Care Team (Late st Contact Info) Description 07/04/2025 2:00 PM EST Office Visit [facility] [address] [place] [address] [place], [place] [facility] 230 [place] [address] 08/01/2025 2:00 PM EST Clinical Support [facility] [address] [place] [address] Kira Bansal RN documented as of this encounter Visit Diagnoses Diagnosis Multiple joint pain Pain in joint, multiple sites documented in this encounter Additional Health Concerns Assessment Noted Time PHQ-9 Depression Total Score: 8 09/02/19 11:12 AM EST documented as of this encounter Care Teams Refinery Operator Light Ends Recovery Relationship Specialty Start Date End Date Radha Shah FNP [address] [place] [address] PCP - General Family Medicine 04/21/23 04/25/24 Yecenia Frias FNP [address] [place] [address] PCP - General Family Medicine 04/26/24 Colby Hirsch FNP [address] [place] [address] Nurse Practitioner Family Medicine 07/13/23 Candice Ugarte Frozen Meat CutterGas Welding Machine Operator 12/27/23 documented as of this encounter
--- OUTSIDE RECORDS SUMMARY | 2025-05-22 14:21 | XMS_ITS | Encounter Summary ---
Author Organization [employer] Address [address] [facility] 7t [place] [address] Care Team Providers Care Utility Agent Name Role Phone Ruth Hoffmann LOG CHAIN WORKER Primary Care Provider Marc Nava Primary Care Provider Unavail able Radha Shah LOG CHAIN WORKER Primary Care Provider [phone] Colby HirschP Unavailable Unavailable [facility] LOG CHAIN WORKER Primary Care Provider [phone] Reason for Visit * Reason Onset Date Comments Appointment Request 10/01/2022 Encounter Details Date Type Department Care Team (Late st Contact Info) Description 10/01/2022 Telephone [facility] 230 [place] [address] Ruth Hoffmann FNP Appointment Request Social History [...] Description 07/04/2025 2:00 PM EST Office Visit [address] [address] Yecenia Frias FNP [address] [place] [address] 08/01/2025 2:00 PM EST Clinical Support [address] [address] Kira Bansal RN documented as of this encounter Visit Diagnoses Not on filedocumented in this encounter Care Teams Utility Agent Relationship Specialty Start Date End Date Ruth Hoffmann FNP PCP - General Family Medicine 07/21/22 10/21/22 Marc Nicolas AGNP PCP - General Family Medicine 10/22/22 04/20/23 Radha Shah FNP [address] [place] [address] PCP - General Family Medicine 04/21/23 04/25/24 AltagraciaYecenia FNP [address] [place] [address] PCP - General Family Medicine 04/26/24 Colby Hirsch FNP [address] [place] [address] Nurse Practitioner Family Medicine 07/13/23 Candice Ugarte Dye Lab TechnicianLumber Sorter 12/27/23 documented as of this encounter
--- OUTSIDE RECORDS SUMMARY | 2025-05-22 14:21 | XMS_ITS | Encounter Summary ---
Author Organization [employer] Address [address] [facility] 7t [place] [address] Care Team Providers Care Spudder Name Role Phone Colby Hirsch CARGO VESSEL STEWARDESS Unavailable Unavailable [facility] Primary Care Provider [phone] Reason for Visit * Reason Comments Med Refill Encounter Details Date Type Department Care Team ([facility] st Contact Info) Description 04/18/2025 Refill [facility] [address] [place] [address] [facility] [address] [place] [address] Arthralgia, unspecified joint Social History Tobacco Use [...] Description 07/04/2025 2:00 PM EST Office Visit [address] [address] Yecenia Frias FNP [address] [place] [address] 08/01/2025 2:00 PM EST Clinical Support [address] [address] Kira Bansal RN documented as of this encounter Visit Diagnoses Diagnosis Arthralgia, unspecified joint documented in this encounter Additional Health Concerns Assessment Noted Time PHQ-9 Depression Total Score: 0 02/27/20 25 10:29 AM EDT documented as of this encounter Care Teams Spudder Relationship Specialty Start Date End Date Yecenia Frias FNP [address] [place] [address] PCP - General Family Medicine 04/26/24 Colby Hirsch FNP Nurse Practitioner Family Medicine 07/13/23 Candice Ugarte Roll PluggerPlanting Machine Operator 12/27/23 documented as of this encounter
--- OUTSIDE RECORDS SUMMARY | 2025-05-22 14:21 | XMS_ITS | Encounter Summary ---
Author Organization [employer] Address [address] [facility] 7t [place] [address] Care Team Providers Care Medical Collector Name Role Phone Colby Hirsch HUMAN SERVICES INSTRUCTOR Unavailable Unavailable [facility] HUMAN SERVICES INSTRUCTOR Primary Care Provider [phone] Encounter Details Date Type Department Care Team (Latest Contact Info) Description 05/22/2025 Travel Social History Tobacco Use Types Packs/Day [...] TAVON-7 Total Score 11 05/22/2025 1:56 PM EDT Symone Rhodes [place] documented as of this encounter Plan of Treatment Upcoming Encounters Date Type Department Care Team (Late st Contact Info) Description 07/04/2025 2:00 PM EST Office Visit [facility] 230 [place] [address] [place] JAC[place] [address] [place] [address] 08/01/2025 2:00 PM EST Clinical Support [facility] [address] [place] [address] Kira Bansal RN documented as of this encounter Visit Diagnoses Not on filedocumented in this encounter Additional Health Concerns Assessment Noted Time PHQ-9 Depression Total Score: 10 025 1:53 PM EDT documented as of this encounter Care Teams Medical Collector Relationship Specialty Start Date End Date [place] [address] PCP - General Family Medicine 04/26/24 Colby Hirsch FNP Nurse Practitioner Family Medicine 07/13/23 Candice Ugarte Physical Therapy DirectorBuilding Services Coordinator 12/27/23 documented as of this encounter
--- OUTSIDE RECORDS SUMMARY | 2025-05-22 14:21 | XMS_ITS | Patient Health Record ---
Author Organization [facility] Address [address] [place] [address] Care Team Providers Care Employment Adjudicator Name Role Phone Radha Rodriguez Primary Care Provider Jaylan Clancy Unavailable [phone] Allergies Allergen (clinical drug ingredient) Drug/Non Drug [...] DAILY Oral for 30 Active Vitamin A 07972 UNIT TAKE 1 CAPSULE BY M OUTH [...] Problem Status W/U Status Risk Notes Problem 50496184 Epigastric abdom inal pain (R10.13) Active confirmed Problem 982272585 Irritable bowel syndrome with diarrhea (K58.0) Active confirmed Problem Elevated liver enzymes level (659797104) Elevated liver function tests (R79.89) Active confirmed Problem 841228119 Fatty liver (K76.0) Active confirmed Problem 652956348 Gastroesophageal reflux disease, esophagitis presence not specified (K21.9) Active confirmed Problem 803871402 Abdominal pain, right upper quadrant (R10.11) Active confirmed Encounters Encounter Location Date Provider Diagnosis [facility] [address] [facility] [address] [place] [phone] 06/16/2024 Jaylan Neal Plan Of Treatment Pending Test Test Name Order Date BUN 12/29/2019 CREATININE 12/29/2019 LIVER PROFILE 02/04/2020 LIVER PROFILE 04/09/2020 LIVER PROFILE 12/29/2019 CBC w DIFF 12/29/2019 PROTHROMBIN TIME (PT, INR) 12/29/2019 [id number] (A1A) 12/29/2019 CAROTENE 12/29/2019 CERULOPLASMIN 12/29/2019 MITOCHONDRIAL [...] Start Date Coverage End Date MEDICAID [facility] [address] FEL[place] CRUZ [phone] [id number] HARMAN LEUNG Self - patient is the insured Medical (General) History Medical History History ICD Code Asthma Denies [place],CVA,renal disease Migraines Anxiety, depression, bipolar disease NIDDM [...]
--- OUTSIDE RECORDS SUMMARY | 2025-05-22 14:21 | XMS_ITS | Encounter Summary ---
Author Organization [employer] Address [address] [facility] 7t [place] [address] Care Team Providers Care Supervisor Show Operations Name Role Phone Colby Hirsch TIMBER SUPERVISOR Unavailable Unavailable [facility] Primary Care Provider [phone] Reason for Visit * Reason Comments Med Refill Encounter Details Date Type Department Care Team ([facility] st Contact Info) Description 01/02/2025 Refill [facility] 230 [place], [place] [phone] [facility] [address] [place] [address] Viral upper respiratory illness Social History Tobacco [...] Description 07/04/2025 2:00 PM EST Office Visit [address] [address] Yecenia Frias FNP [address] [place] [address] 08/01/2025 2:00 PM EST Clinical Support [address] [address] Kira Bansal RN documented as of this encounter Visit Diagnoses Diagnosis Viral upper respiratory illness documented in this encounter Additional Health Concerns Assessment Noted Time PHQ-9 Depression Total Score: 0 10/24/19 25 1:15 PM EST documented as of this encounter Care Teams Supervisor Show Operations Relationship Specialty Start Date End Date Yecenia Frias FNP [address] [place] [address] PCP - General Family Medicine 04/26/24 Colby Hirsch FNP Nurse Practitioner Family Medicine 07/13/23 Candice Ugarte Freight ConductorLead Engineer 12/27/23 documented as of this encounter
--- OUTSIDE RECORDS SUMMARY | 2025-05-22 14:21 | XMS_ITS | Clinical Summary ---
Author Organization [employer] Address [address] [facility] [address] [place] [address] Care Team Providers Care Mathematical Sciences Professor Name Role Phone Colby Hirsch AMERICAN BOARD CERTIFIED ORTHOTIST Unavailable Unavailable [facility] AMERICAN BOARD CERTIFIED ORTHOTIST Primary Care Provider [phone] Allergies Active Allergy Reactions Criticality Noted Date [...] hours as needed prn wheezing/dyspnea 022 Active Misc. Devices (Pulse Oximeter For [...] FOUR TIMES DAILY TO TEST BLOOD SUGAR 10/10/2 023 Active cetirizine (ZyrTEC) 10 MG tablet TAKE 1 TABLET BY MOUTH EVERY MORNING 90 tablet 1 023 Active metFORMIN XR (Glucophage-XR) 500 MG 24 hr tabletIndication s:Type 2 diabetes mellitus without complication, with long-term current use of insulin ([facility]) TAKE 1 TABLET BY MOUTH EVERY DAY WITH DINNER 90 tablet 1 024 Active glucose blood test stripIndications :Type 2 diabetes mellitus without complication, with long-term current use of insulin ([facility]) 1 each by Other route 2 times [...] complication, with long-term current use of insulin ([facility]) 1 Device 2 times daily. 1 kit 024 Active Alcohol Swabs (Alcohol Prep) 70 % pads USE 1 FOUR TIMES DAILY DIRECTED 200 each 11 025 Active omeprazole (PriLOSEC) [address] capsule TAKE 1 CAPSULE BY MOUTH EVERY MORNING BEFORE BREAKFAST. DO NOT BREAK, CRUSH, DISSOLVE OR CHEW. 90 capsule 3 025 Active oxymetazoline (Afrin Nasal [place]) 0.05 % nasal sprayIndications :Viral upper respiratory illness Administer 2 sprays into each nostril every 12 (twelve) hours if needed for congestion for up to 2 days. Do not use for more than 3 days. 30 mL 025 Active beta carotene (vitamin A) 3 MG (84505 UT) capsule TAKE 1 CAPSULE BY MOUTH [...] EVEN IF PATIENT RESPONDS. 2 each 2 Active clonazePAM (KlonoPIN) 0.5 MG tablet Take 1 tablet by mouth if needed in the morning and at bedtime for anxiety. Active escitalopram (Lexapro) 10 MG tablet Take 1 tablet by mouth Once per day. Active Ozempic, 0.25 or 0.5 MG/DOSE, 2 MG/3ML solution pen-injector INJECT 0.25 MG SUBCUTANESOULY ONCE A WEEK FOR 4 WEEKS, THEN INCREASE TO 0.5 MG SUBCUTANESOULY EVERY WEEK THEREAFTER Active atorvastatin (Lipitor) 40 MG tabletIndication s:Type 2 diabetes mellitus without complication, with long-term current use of insulin (HCC) Take 1 tablet (40 mg) by mouth in the morning. 90 tablet 3 025 2025 Active cholecalciferol (Vitamin D-3) 10 MCG (400 UNIT) tablet TAKE 2 TABLETS BY MOUTH EVERY DAY 180 tablet 1 Active budesonide-formo terol (Symbicort) 80-4.5 MCG/ACT inhalerIndicatio ns:Mild intermittent asthma without complication INHALE 2 PUFFS BY MOUTH EVERY 4 TO 6 HOURS NEEDED FOR WHEEZING OR SHORTNESS OF BREATH NO MORE THAN 12 PUFFS PER DAY RINSE MOUTH AFTER USING. 10.2 g 11 Active acetaminophen (Tylenol 8 Hour) 650 MG ER tabletIndication s:Sore throat,Stuffy and runny nose,Malaise,Hea dache, unspecified headache type Take 1 tablet (650 mg) by mouth every 8 (eight) hours if needed for mild pain. 60 tablet 1 Active traMADol (Ultram) 50 MG tabletIndication s:Multiple joint pain Take 1 tablet (50 mg) by mouth every 12 (twelve) hours if needed for severe pain for up to 28 days. Do not start before May 18, 2025. 56 tablet 025 2024 Active SUMAtriptan (Imitrex) 50 MG tablet Take 1 tablet (50 mg) by mouth 1 (one) time if needed for migraine for up to 27 doses. May repeat 2nd dose after 2 hours if needed 9 tablet 2 Active gabapentin (Neurontin) 300 MG capsule Take 1 capsule (300 mg) by mouth at bedtime. 30 capsule 3 025 2025 Active Diclofenac Sodium 1 % gel Apply once a day on the affected hand 100 g 1 Active SUMAtriptan (Imitrex) 50 MG tablet Take 1 tablet by mouth. 022 2024 Discontinued(R eorder (will not trigger notification to Pharmacy)) Diclofenac Sodium 1 % gelIndications:P ain of left thumb Apply once a day on the affected hand 100 g 1 024 2024 Discontinued(R eorder (will not [...] >60 CM >60 CM Comment: NOTE: For -Ecuadorean individuals, multiply the result by 1.210.Chronic Kidney Disease: Estimated GFR < 60 mL/min/1.13p7Jnnyhc Kidney Disease: Estimated GFR < 15 mL/min/1.73m2 [...] >60 CM >60 CM Comment: NOTE: For -Ecuadorean individuals, multiply the result by 1.210.Chronic Kidney Disease: Estimated GFR < 60 mL/min/1.63e2Ntbgcy Kidney Disease: Estimated GFR < 15 mL/min/1.73m2 [...] psychotic features with peripartum onset, unspecified trimester ([facility]) 01/21/2023 0 01/21/2023 Schizoaffective disorder, de pressive type ([facility]) 01/21/2023 02/27/2025 Overview (02/17/2023): Diagnostic evaluation per [...] 02/27/2025 Insomnia 01/30/2019 02/27/2025 Depression with anxiety 01/05/201903/2025 Assessment & Plan (01/15/2023 3:00 PM EDT): Assessment: Patient with anxiety, (difficult to control worry, nervousness) and panick attacks (periods of shaking, chest pain, and uncontrollable crying) in the context of biopsychosocial stressors of lack of transportation and access to care. Patient will benefit from OP therapy and psychiatry in person with a female clinician in [place]. At this time Sacha Rodriguez meets criteria [...] is now referred to new [facility] psychiatric provider. Pt is aware that appts will be via televisit and that provider will not be an [facility] employee. She gives permission to share PHI. [...] night at bedtime (not prn). Based on INSPECTOR PLATING notes, she appears to be taking Clonazepam [...] Encounters Date Type Department Care Team Description 05/22/2025 12:00 PM EDT Office Visit [facility] [address] [place] [address] Cheryl Galan DO Paresthesia of both feet (Primary Dx); Pain of both heels; Morning headache; Type 2 diabetes mellitus without complication, with long-term current use of insulin ([facility]); Pain of left thumb 05/22/2025 Travel 05/22/2025 Telephone [facility] [address] [place] [address] Yecenia Frias FNP Chart Prep 05/16/2025 Telephone [facility] [address] [facility] [place] [address] Yecenia FriasJACINTO telephone call 05/14/2025 Refill [facility] [address] [place] [address] Yecenia Frias FNP Multiple joint pain 05/07/2025 2:40 PM EDT Office Visit [facility] [address] [place] [address] Yobany, MD Tony Sore throat (Primary Dx); Stuffy and runny nose; Malaise; Headache, unspecified headache type 05/07/2025 Travel 04/30/2025 1:00 PM EDT Clinical Support [facility] [address] [place] [address] Kira Bansal RN Long-term current use of opiate analgesic (Primary Dx) 04/30/2025 Telephone [facility] [address] [place] [address] Kira Bansal RN BPI Scoring 04/30/2025 Travel 04/18/2025 Refill [facility] [address] [place] [address] Yecenia Frias JACINTO Arthralgia, unspecified joint 04/16/2025 Refill [facility] [address] [place] [address] Yecenia FriasJACINTO Multiple joint pain 04/16/2025 Refill [facility] [address] [place] [address] Yecenia FriasJACINTO Multiple joint pain 03/19/2025 Refill [facility] [address], [place] [phone] Altagracia JACINTO [place] Multiple joint pain 03/19/2025 Refill [facility] [address] [place] [address] Yecenia FriasAPARNAP Multiple joint pain 03/13/2025 Orders Only GENERIC EXTERNAL DATA DEPARTMENT Provider, Generic External Data 03/12/2025 Refill [facility] [address] [place] [address] Yecenia Frias FNP Mild intermittent asthma without complication 03/12/2025 Refill [facility] [address] [place] [address] Radha Shah FNP 03/09/2025 Refill [facility] [address] [place] [phone] Eloisa Aragon NP 03/07/2025 Orders Only GENERIC EXTERNAL DATA DEPARTMENT Provider, Generic External Data 03/06/2025 1:40 PM EDT Office Visit [facility] [address] [place] [phone] Bethany Bond MD Costochondritis; Dizziness; Type 2 diabetes mellitus without complication, with long-term current use of insulin (CMS/HCC) 03/06/[address] [address] Yecenia Frias FNP Stable Lab Letter 03/06/2025 Travel 03/05/2025 Results Follow-Up [facility] [address] [place] [phone] Yecenia Frias FNP Albumin, Random Urine W/Creatinine 03/02/[address] [address] Yecenia Frias FNP Arthralgia, unspecified joint 02/26/2025 10:30 AM EDT Office Visit [address] [address] Yecenia Frias FNP Type 2 diabetes mellitus without complication, with long-term current use of insulin (CMS/HCC) (Primary Dx); Essential hypertension; Encounter for screening for malignant neoplasm of colon; Encounter for immunization 02/26/2025 Travel 02/23/2025 Refill [facility] [address] [place], [place] [phone] Yecenia Frias FNP Multiple joint pain 02/22/2025 Telephone [facility] [address] [place] [phone] Yecenia Frias FNP chart prep 02/21/2025 Orders [...] Mass Index 38.28 05/22/2025 12:57 PM EDT Plan of Treatment Upcoming Encounters Date Type Department Care Team (Late st Contact Info) Description 07/04/2025 2:00 PM EST Office Visit [address] [address] 08/01/2025 2:00 PM EST Clinical Support [address] [address] Kira Bansal, RN Health Maintenance Due Date Last Done Comments CT Colonography 1980 Colonoscopy 1980 Colorectal Cancer Screening 1980 Dental X-Ray: Bitewings 1980 FIT DNA/Cologuard 1980 FIT 1980 FOBT 1980 Sigmoidoscopy 1980 Family Planning (PISQ) 12/04/1994 HPV Vaccines (1 - 3-dose series) 12/04/1994 Dental Prophylaxis 12/06/2008 06/06/2008 Hepatitis A Vaccines (2 of 2 - Risk 2-dose series) 04/10/2009 10/11/2008 Dental X-Ray: Full Mouth 03/30/2018 03/29/2015 Dental Oral Exam 11/23/2020 05/24/2020 COVID-19 Vaccine (4 - season) 2025 10/08/2022, 05/05/2021, 04/08/2021 Influenza Vaccine (#1) 2025 08/25/2013 Diabetes: Hemoglobin A1C 08/21/2025 025, 01/01/2025, 10/23/2024, Additional history exists Lipid Panel 09/25/2025 09/25/2024, 04/24, 03/06/2024, Additional history exists Diabetes: Foot Exam 10/23/2025 10/23/2024, 10/23/2024, 10/23/2024, Additional history exists Mammogram 11/15/2025 11/16/2023 Depression Monitoring 11/19/2025 05/22/2025, 025 SDOH Screening 01/12/2026 01/12/2025 Diabetes: Urine Protein Screening 02/26/2026 02/26/2025, 02/07/2024, 09/15/2022, Additional history exists Alcohol/Substance Use Screening 05/22/2026 05/22/2025 Disability Screening 05/22/2026 05/22/2025 Tobacco Screening 05/22/2026 05/22/2025 Eye Exam 09/14/2026 09/14/2024, 08/24, 09/14/2024, Additional [...] Associated Diagnosis Comments XR FOOT 3+ VIEWS LEFT Routine 05/22/2025 1:30 PM EDT Pain of both heels XR FOOT 3+ VIEWS RIGHT Routine 05/22/2025 1:30 PM EDT Pain of both heels POCT GLYCATED HEMOGLOBIN, TOTAL Routine 05/22/2025 1:01 PM EDT Type 2 diabetes mellitus without complication, with long-term current use of insulin ([facility]) POCT GLUCOSE Routine 05/22/2025 12:59 PM EDT Type 2 diabetes mellitus without complication, with long-term current use of insulin ([facility]) POCT INFLUENZA B (ID NOW RAPID MOLECULAR) [...] complication, with long-term current use of insulin ([facility]/H[facility]) ALBUMIN, RANDOM URINE W/CREATININE Routine 02/26/2025 11:31 AM EDT Type 2 diabetes mellitus without complication, with long-term current use of insulin ([facility]) URINALYSIS, COMPLETE Routine 02/21/2025 11:11 AM EDT CULTURE, URINE, ROUTINE Routine 02/21/2025 11:11 AM EDT HIV 1/2 ANTIGEN/ANTIBODY, FOURTH GENERATION W/RFL [...] Relevant to Health Maintenance Results * XR Foot 3+ Views Right (05/22/2025 1:30 PM EDT) Anatomical Region Laterality Modality Lower Extremities, Foot Right [facility] 05/22/2025 1:30 PM EDT Narrative 05/22/2025 1:43 PM EDT [address] XRay Report Signed Patient: Sacha Contreras MR#: [id number] : 1980 Acct:[id number] Age/Sex: 44 / F ADM Date: 05/22/25 Loc: [facility] Attending Dr: Cheryl Galan DO Ordering Physician: Cheryl Galan DO Date of Service: 05/22/25 Procedure(s): XR foot RT min 3V Accession Number(s): [id number] cc: Cheryl Galan DO Reason for Exam: [...] Dipak Castaneda MD 05/22/2025 01:41 PM EDT Dictated By: Dipak Castaneda MD Signed By: <Electronically signed by Dipak Castaneda MD in OV> 05/22/25 1341 DD/ 1330 TD/TT: 05/22/25 1334 Machine Striper: Procedure Note Donotuseinterpreter, Image - 05/22/[address] [address] XRay Report Signed Patient: Xavier ContrerasR#: [id number] : 1980Acct:[id number] Age/Sex: 44 / FADM Date: 05/22/25 Loc: [facility] Attending Dr: Cheryl Galan DO Ordering Physician: Cheryl Galan DO Date of Service: 05/22/25 Procedure(s): XR foot RT min 3V Accession Number(s): [id number] cc: Cheryl Galan DO Reason for Exam: [...] Dipak Castaneda MD 05/22/2025 01:41 PM EDT Dictated By: Dipak Castaneda MD Signed By: <Electronically signed by Dipak Castaneda MD in OV> 05/22/25 1341 DD/ 1330 TD/TT: 05/22/25 1334 Machine Striper: Cheryl Galan DO IMG XR PROCEDURES Final Resu lt * XR Foot 3+ Views Left (05/22/2025 1:30 PM EDT) Anatomical Region Laterality Modality Lower Extremities, Foot Left Radiogra phic Imaging 05/22/2025 1:30 PM EDT Narrative 05/22/2025 1:42 PM EDT [address] [address] XRay Report Signed Patient: Sacha Contreras MR#: [id number] : 1980 Acct:[id number] Age/Sex: 44 / F ADM Date: 05/22/25 Loc: [facility] Attending Dr: Cheryl Galan DO Ordering Physician: Cheryl Galan DO Date of Service: 05/22/25 Procedure(s): XR foot LT min 3V Accession Number(s): [id number] cc: Cheryl Galan DO Reason for Exam: [...] 05/22/25 1340 DD/ 1330 TD/TT: 05/22/25 1334 Machine Striper: Procedure Note Donotuseinterpreter, Image - 05/22/2025 [place] [address] XRay Report Signed Patient: Xavier ContrerasR#: [id number] : 1980Acct:[id number] Age/Sex: 44 / FADM Date: 05/22/25 Loc: [facility] Attending Dr: Cheryl Galan DO Ordering Physician: Cheryl Galan DO Date of Service: 05/22/25 Procedure(s): XR foot LT min 3V Accession Number(s): [id number] cc: Cheryl Galan DO Reason for Exam: [...] 05/22/25 1340 DD/ 1330 TD/TT: 05/22/25 1334 Machine Striper: Cheryl Galan DO IMG XR PROCEDURES Final Resu lt * (ABNORMAL) POCT Hgb A1c (05/22/2025 1:01 PM EDT) Pathologist [facility] Hemoglobin A1C 6.1(A) 4.0 - 5.7 % QC Media Lot # [id number] Lot# Expiration Date Blood 05/22/2025 1:01 PM EDT Cheryl Galan DO POINT OF CARE TEST ENTER/SANCHO T ORDERABLES Final Result * POCT Glucose (05/22/2025 12:59 PM EDT) Only the most recent of2 resultswithin the time period is included. Pathologist [facility] Glucose Blood, POC 107 60 - 200 mg/dL QC Media Lot # [id number] Lot# Expiration Date Blood Capillary blood specimen / Unknown 05/22/2025 12:59 PM EDT Cheryl Galan DO POINT OF CARE TEST ENTER/SANCHO T ORDERABLES Final Result * POCT Rapid Influenza B BALL ID NOW (05/07/2025 2:59 PM EDT) Influenza B Negative Negative, Indeterminate [facility] QC Media Lot # [id number] [facility] Lot# Expiration Date [facility] Swab 05/07/2025 2:59 PM EDT Tony Haywood MD POINT OF CARE TEST ENTER/EDIT OR DERABLES Final Result [facility] [address] [place] [phone] * POCT Rapid Influenza A BALL ID NOW (05/07/2025 2:59 PM EDT) [facility] Influenza A Negative Negative, Indeterminate [facility] QC Media Lot # [id number] [facility] Lot# Expiration Date [address] [facility] Swab 05/07/2025 2:59 PM EDT Tony Haywood MD POINT OF CARE TEST ENTER/EDIT OR DERABLES Final Result [facility] [address] [place] [phone] * POCT Rapid Covid-19 BinaxNOW (05/07/2025 2:58 PM EDT) [facility] Rapid COVID Ag Negative QC Media Lot # [id number] Lot# Expiration Date [id number] Swab 05/07/2025 2:58 PM EDT us Tony Haywood MD POINT OF CARE TEST ENTER/EDIT OR DERABLES Final Result * POCT Rapid Strep A BALL ID NOW (05/07/2025 2:57 PM EDT) [facility] Rapid Strep A Screen Negative Negative, None Detected QC Media Lot # [id number] Lot# Expiration Date Swab 05/07/2025 2:57 PM EDT us Tony Haywood MD POINT OF CARE TEST ENTER/EDIT OR DERABLES Final Result * POCT CASSI-14 Urine Drug Screen (04/30/2025 12:21 PM EDT) [facility] THC Negative Negative Cocaine Screen, Urine Negative [...] - 04/30/2025 12:21 PM EDT UTOX cup Lot#[id number] Exp. 05/29/26 Internal Pass Control [facility] AMERICAN BOARD CERTIFIED ORTHOTIST POINT OF CARE TEST ENTER/EDIT ORDERABLES Final Result * High Sensitivity Troponin I (03/13/2025 4:31 PM EDT) [facility] TROPONIN I HIGH SENSITIVITY <2.7 <3.5 - 17.0 ng/L [facility] Comment:The Ball high sens itivity Troponin-I results should beused in conjunction with other diagnostic information suchas ECG, clinical observations and information, and patientsymptoms to aid in the diagnosis of NC. 03/13/2025 4:31 PM EDT 03/13/2025 4:36 PM EDT Generic External Data Provider LAB BLOOD ORDERAB LES Final Result [facility] [address] [place] [phone] * Gross and Microscopic Level 3 (03/07/2025 1:00 PM EDT) 03/07/2025 1:00 PM EDT 03/07/2025 1:17 PM EDT Akhil [facility] - 03/08/2025 1:17 PM EDT ----- ------- Name: Sacha Contreras Age/Sex: 44/F : 1980 [facility]#: [id number] Unit#: [id number] Attend Dr: Lionel Cintron MD Re03/07/25 Status: [facility] Location: [facility] Disch: ----- ------- SPEC : [id number] RECD: 03/07/25-131 STATUS: LEELEE NAVA NUM: [id number] MT: 03/07/25-[address] [facility] [address]: Lionel Cintron MD ENTERED: 03/07/25-1327 SP TYPE: Surgical OTHR DR: [facility] ORDERED: Gross Micro L3 Diagnosis Soft [...] fibrous dermal tissue and unremarkable subcutaneous fat. Manager Endoscopy sections are submitted in cassettes A1 and A2. CEDS IHC S/NG Disclaimer NOTE: Unless otherwise stated, all tissue is formalin-fixed and paraffin-embedded. Some or all of the immunohistochemical tests reported herein may have been developed and their performance characteristics determined by [facility]. They have not been [...] Sacha Contreras Age/Sex: 44/F : 1980 Unit#: [id number] Attend Dr: Lionel Cintron MD Re03/07/25 Status: [facility] Location: [facility] Disch: ----- ------- SPEC : [id number] RECD: 03/07/25 STATUS: LEELEE NAVA NUM: [id number] MT: 03/07/25-[address] [facility] [address]: Lionel Cintron MD ENTERED: 03/07/25 SP TYPE: Surgical OTHR DR: [facility] ORDERED: Gross Micro L3 Copies To: [address] [address] Lionel Cintron MD [facility] [address] [place] [phone] ----- ------- Signed (signature on file) Raghav Merrill MD 03/08/25 1317 ----- ------- END OF REPORT Generic External Data Provider LAB CYTOLOGY ORDE RABLES Final Result Performing Organization Address [facility] Co de Phone Number [facility] [address] [place] [phone] * Glucose, Whole Blood (03/07/2025 11:13 AM EDT) Pathologist [facility] Glucose, Whole Blood 92 60 - 115 mg/dL [facility] Comment:METER #: [id number] 03/07/2025 11:1 3 AM EDT 03/07/2025 11:21 AM EDT Generic External Data Provider LAB BLOOD ORDERAB LES Final Result Performing Organization Address [facility] Co de Phone Number [facility] [address] [place], [place] [phone] * Albumin, Random Urine W/Creatinine (02/26/2025 11:31 AM EDT) Creatinine, Urine 186.00 mg/dL [facility] Microalbumin Urine 39.0 mg/L [facility] Microalbum Creatinine Ratio Ur 20.9 <30 ug/mg cr [facility] Comment:Albumin/Creatinine R atio Reference Ranges: Normal: < 30 ug/mg creatinine Microalbuminuria: 30 - 300 ug/mg creatinineClinical Albuminuria: > 300 ug/mg creatinine Urine 02/26/2025 11:3 1 AM EDT 02/26/2025 1:48 PM EDT [facility] AMERICAN BOARD CERTIFIED ORTHOTIST LAB URINE ORDERABLES Final Re sult Performing Organization Address [facility] de Phone Number [facility] [address] [place] [phone] * (ABNORMAL) Urinalysis Complete (02/21/2025 11:11 AM EDT) Color Urine Yellow [facility] Appearance Urine Clear [facility] PH 5.5 5.0 - 9.0 [facility] Glucose Urine UA Negative Negative mg/dL [facility] Urine Blood Small (1+)(A) Negative [facility] Specific [place] - Urine 1.015 1.005 - 1.025 [facility] Urine Protein Negative Neg-Trace mg/dL [facility] Urine Ketones Trace Negative mg/dL [facility] Nitrite Urine Negative Negative [facility] Leukocyte Esterase Urine Small (1+)(A) Negative [facility] RBC Urine 6-10(A) 0 - 2 /HPF [facility] Urine WBC 6-10(A) 0 - 5 /HPF [facility] Urine Squamous Epithelial Cell 11-20 0 - 2 /HPF [facility] Urine Bacteria 1+ None Seen [facility] Hyaline Casts, Urine 0-2 0 - 2 /LPF [facility] 02/21/2025 11:1 1 AM EDT 02/21/2025 12:02 PM EDT Generic External Data Provider LAB URINE ORDERAB LES Final Result Performing Organization Address City/[facility]/ZIP Co de Phone Number [facility] [address] [place] [phone] * Culture, Urine, Routine (02/21/2025 11:11 AM EDT) Urine Urine specimen obtained by clean catch procedure / Unknown 02/21/2025 11:11 AM EDT 02/21/2025 12:02 PM EDT Comment:UACC Narrative [facility] - 02/22/2025 11:07 AM EDT Urine Culture Report Result Urine Culture 10,000 to 50,000 cfu/ml Urine Culture Mixed bacterial norma characteristic of Urine Culture urogenital contamination. Specimen Source: Urine clean catch Generic External Data Provider LAB MICROBIOLOGY - GENERAL ORDERABLES Final Result Performing Organization Address [facility] Co de Phone Number [facility] [address] [place] [phone] * HIV-1/2 Antigen and Antibodies, Fourth Generation, with Reflexes (10/23/2024 2:05 PM EST) [facility] HIV AB/AG Nonreactive Nonreactive [facility] Comment:HIV-1 p24 Ag and/or HIV-1/HIV-2 Ab not detected.A test result that is nonreactive does not exclude thepossibility of exposure to or infection with HIV-1 and/orHIV-2. Nonreactive results in this assay for individualswith prior exposure to HIV-1 and/or HIV-2 may be due toantigen and antibody levels that are below the limit ofdetection of this assay.The [employer] HIV Ag/Ab Combo assay result andsupplemental assay results should be interpreted inconjunction with the patient's clinical presentation,history and other laboratory results. If the results areinconsistent with clinical evidence, additional testing issuggested to confirm the result. Blood Venous blood specimen / Unknown 10/23/2024 2:05 PM EST 10/23/2024 4:20 PM EST [facility] LAB BLOOD ORDERABLES Final Re sult Performing Organization Address City/[facility]/ZIP Co de Phone Number [facility] [address] [place] [address] [phone] * (ABNORMAL) Lipid Panel, Standard (09/25/2024 1:22 PM EST) Triglycerides 109 <150 mg/dL [facility] Comment:Desirable Triglyceri de: less than 150 mg/dLBorderline High Triglyceride 150-199 mg/dLHigh Triglyceride: 200-499 mg/dLVery High Triglyceride: greater than or equal to 5OO mg/dL Cholesterol 128 <200 mg/dL [facility] Comment:Desirable Cholestero l: less than 200 mg/dLBorderline High Cholesterol: 200-239 mg/dLHigh Cholesterol: greater than 239 mg/dL LDL Cholesterol Calculated 71 <100 mg/dL [facility] Comment:Desirable LDL: less than 100 mg/dLNear Optimal/Above Optimal LDL: 110- 129 mg/dLBorderline High LDL: 130-159 mg/dLHigh LDL: 160-189 mg/dLVery High LDL: greater than or equal to 190 mg/dL HDL Cholesterol 36(L) >40 mg/dL [facility] Comment:Desirable HDL: great er than 40 mg/dL Note: This HDL assay may give artificially low results in patients with liver disease. 09/25/2024 1:22 PM EST 09/25/2024 4:00 PM EST us Generic External Data Provider LAB BLOOD ORDERAB LES Final Result Performing Organization Address [facility] Co de Phone Number [facility] [address] [place] [address] [phone] * BI Mammogram Screening Tomosynthesis Bilateral (11/16/2023 1:25 PM EDT) Anatomical Region Laterality Modality Breast Bilateral Mammography 11/16/2023 1:25 PM EDT Narrative 12/02/2023 6:15 AM EDT [facility] [address] [place] [address] Mammography Report Signed Patient: Sacha Contreras MR#: [id number] : 1980 Acct:[id number] Age/Sex: 42 / F ADM Date: 11/16/23 Loc: MERYL Attending Dr: Radha Shah RESEARCH METHODOLOGIST Ordering Physician: Radha Shah RESEARCH METHODOLOGIST Results: 1Negativ e Date of Service: 11/16/23 Follow Up: 1 Year From Orig inal Mammogram Procedure(s): MM tomosynthesis screening BI Accession Number(s): [id number] cc: Radha Shah NP EXAMINATION: MM SCREENING [...] OV> 12/02/23 0611 DD/ 1325 TD/TT: Machine Striper: Procedure Note Donotuseinterpreter, Image - 12/02/2023 [facility] [address] [place], [place] [address] Mammography Report Signed Patient: Lai Contreras#: [id number] : 1980Acct:[id number] Age/Sex: 42 / FADM Date: 11/16/23 Loc: MERYL Attending Dr: Radha Shah RESEARCH METHODOLOGIST Ordering Physician: Radha Shah NPResults: 1Negativ e Date of Service: 11/16/23Follow Up: 1 Year From Orig ina Mammogram Procedure(s): MM tomosynthesis screening BI Accession Number(s): [id number] cc: Radha Shah NP EXAMINATION: MM SCREENING [...] OV> 12/02/23 0611 DD/ 1325 TD/TT: Machine Striper: Radha Shah AMERICAN BOARD CERTIFIED ORTHOTIST IMG BI PROCEDURES Final Result * (ABNORMAL) Hepatitis Panel, General (02/22/2023 1:46 PM EDT) Hepatitis A Antibody Total REACTIVE( A) NON-REACT ADOR Comment: For additional information, please refer to http://[employer]/faq/OUW521 (This link is being provided for informational/ educational purposes only.) Hepatitis B Surface Antibody QL REACTIVE( A) NON-REACT ADOR Hepatitis B Surface Ag NON-REACT TAWNYA NON-REACT ADOR Comment: For additional information, please refer to http://[employer]/faq/HGY236 (This link is being provided for informational/ educational purposes only.) Hepatitis B Core Antibody Total NON-REACT TAWNYA NON-REACT TAWNYA [employer] Comment: For additional information, please refer to http://[employer]/faq/QWF058 (This link is being provided for informational/ educational purposes only.) Hepatitis C Antibody NON-REACT TAWNYA NON-REACT TAWNYA [employer] Comment: HCV antibody was non-reactive. There is no laboratory evidence of HCV infection. In most cases, no further action is required. However, if recent HCV exposure is suspected, a test for HCV RNA (test code 31079) is suggested. For additional information please refer to http://[employer]/faq/OWM78z5 (This link is being provided for informational/ educational purposes only.) 02/22/2023 1:46 PM EDT 02/22/2023 1:46 PM EDT Narrative [facility] - 02/26/2023 7:51 PM EDT FASTING:NO FASTING: NO Marc Nicolas [facility] LAB BLOOD ORDERABLES Final Res ult [facility] [address], [place] [address] [employer] [place] [employer] [address] [place] [address] from Last 3 Months or Most Recently Relevant to Health Maintenance Insurance [facility] [place] ST[place] AD[place] Care Teams Mathematical Sciences Professor Relationship Specialty Start Date End Date Yecenia Frias FNP [address] [place] [address] PCP - General Family Medicine 04/26/24 Colby Hirsch FNP Nurse Practitioner Family Medicine 07/13/23 Candice Ugarte Manager OccupationalManager Product Design 12/27/23
--- OUTSIDE RECORDS SUMMARY | 2025-05-22 14:21 | XMS_ITS | Encounter Summary ---
Author Organization [employer] Address 75 [facility] 7t [place] [address] Care Team Providers Care Therapeutic Case Manager Name Role Phone Colby Hirsch CHILD WELFARE MANAGER Unavailable Unavailable [facility] Primary Care Provider [phone] Reason for Visit * Reason Comments Med Refill Encounter Details Date Type Department Care Team (Late st Contact Info) Description 03/12/2025 Refill [facility] [address] [place] [address] Radha Shah FNP [address] [place] [address] Social History Tobacco Use Types Packs/Day Years [...] Description 07/04/2025 2:00 PM EST Office Visit [address] [address] Yecenia Frias FNP [address] [place] [address] 08/01/2025 2:00 PM EST Clinical Support [address] [address] Kira Bansal RN documented as of this encounter Visit Diagnoses Not on filedocumented in this encounter Additional Health Concerns Assessment Noted Time PHQ-9 Depression Total Score: 0 02/27/20 25 10:29 AM EDT documented as of this encounter Care Teams Therapeutic Case Manager Relationship Specialty Start Date End Date Yecenia Frias FNP [address] [place] [address] PCP - General Family Medicine 04/26/24 Colby Hirsch FNP Nurse Practitioner Family Medicine 07/13/23 Candice Ugarte Field AttendantPugger Helper 12/27/23 documented as of this encounter
--- OUTSIDE RECORDS SUMMARY | 2025-05-22 14:22 | XMS_ITS | Encounter Summary ---
Author Organization [employer] Address 75 [facility] 7t [place] [address] Care Team Providers Care Loading Rack Supervisor Name Role Phone Radha Shah IRRIGATION WORKER Primary Care Provider + Colby Hirsch Unavailable Unavailable [facility] IRRIGATION WORKER Primary Care Provider [phone] Reason for Visit * Reason Comments Med Refill Encounter Details Date Type Department Care Team (Late st Contact Info) Description 06/28/2023 Refill [facility] & PEDS [address] [place] [address] Radha Shah FNP [address] [place] [address] Schizoaffective disorder, depressive type (CMS/HCC) Social History [...] Description 07/04/2025 2:00 PM EST Office Visit [address] [address] 08/01/2025 2:00 PM EST Clinical Support [address] [address] Kira Bansal RN documented as of this encounter Visit Diagnoses Diagnosis Schizoaffective disorder, depressive type (CMS/HCC) ([facility]) Schizoaffective disorder, unspecified condition documented in this encounter Additional Health Concerns Assessment Noted Time PHQ-9 Depression Total Score: 6 06/15/20 23 10:23 AM EDT documented as of this encounter Care Teams Loading Rack Supervisor Relationship Specialty Start Date End Date Radha Shah FNP [address] [place] [address] [phone] PCP - General Family Medicine 04/21/23 04/25/24 NorthwoodYecenia [facility] [address] [place] [address] PCP - General Family Medicine 04/26/24 Colby Hirsch FNP [address] [place] [address] Nurse Practitioner Family Medicine 07/13/23 Candice Ugarte Laborer CheesemakingBasin Cleaner 12/27/23 documented as of this encounter
--- OUTSIDE RECORDS SUMMARY | 2025-05-22 14:22 | XMS_ITS | Encounter Summary ---
Author Organization [employer] Address 75 [facility] 7t [place] [address] Care Team Providers Care Cane Stripper Name Role Phone Marc Nicolas Primary Care Provider Unavail able Radha Shah BOOMSWING OPERATOR Primary Care Provider +[phone] Colby Hirsch Unavailable Unavailable [facility] BOOMSWING OPERATOR Primary Care Provider [phone] Reason for Visit * Reason Comments Med Refill Encounter Details Date Type Department Care Team ([facility] Contact Info) Description 03/17/2023 Refill [facility] [address] [place] [address] Marc Nicolas AGNP Mixed anxiety and depressive [...] Upcoming Encounters Date Type Department Care Team ([facility] Contact Info) Description 07/04/2025 2:00 PM EST Office Visit [facility] [address] [place] [address] WinthropYecenia whipple FNP [address] [place] [address] 08/01/2025 2:00 PM EST Clinical Support [facility] [address] [place] [address] Kria Bansal, RN documented as of this encounter Visit Diagnoses Diagnosis Mixed anxiety and depressive disorder Dysthymic disorder documented in this encounter Additional Health Concerns Assessment Noted Time PHQ-9 Depression Total Score: 13 023 3:27 PM EDT documented as of this encounter Care Teams Cane Stripper Relationship Specialty Start Date End Date Marc Nicolas AGNP PCP - General Family Medicine 10/22/22 04/20/23 Radha Shah FNP [address] [place] [address] PCP - General Family Medicine 04/21/23 04/25/24 WinthropYecenia FNP [address] [place] [address] PCP - General Family Medicine 04/26/24 Colby Hirsch FNP [address] [place] [address] Nurse Practitioner Family Medicine 07/13/23 Candice Ugarte Electrician LocomotivePharmaceutical Sales 12/27/23 documented as of this encounter
--- OUTSIDE RECORDS SUMMARY | 2025-05-22 14:22 | XMS_ITS | Encounter Summary ---
Author Organization [employer] Address 75 [facility] 7t [place] [address] Care Team Providers Care Lumber Marker Name Role Phone Marc Nicolas Primary Care Provider Unavail able Radha Shah STEEL CHECKER Primary Care Provider [phone] Colby Hirsch Unavailable Unavailable [facility] STEEL CHECKER Primary Care Provider [phone] Reason for Visit * Reason Onset Date Comments Results 04/09/2023 Encounter Details Date Type Department Care Team (Late st Contact Info) Description 04/09/2023 Telephone [facility] [address] [place] [address] Marc Nicolas AGNP Results Social History Tobacco [...] AM EDT FYI T/C to pt. Through [employer] Cloud id - [id number] for below message. Pt. States she is having apt. With Dr. Sims on 05/03/2023 and wants to discuss on that day. Pt. Advised to give call back on [phone] if any questions or concerns. Pt. Verbally agreed and understood. Please review and advise if needed. * Telephone Encounter - Romeo Child - 04/09/2023 12:19 PM EDT Tc from pt requesting status on results for Liver that were done a moth ago pt states. Please contact pt at [phone] Indonesian Speaker documented in this encounter Plan of Treatment Upcoming Encounters Date Type Department Care Team (Late st Contact Info) Description 07/04/2025 2:00 PM EST Office Visit [address] [address] Yecenia Frias FNP [address] [place] [address] 08/01/2025 2:00 PM EST Clinical Support [address] [address] Kira Bansal RN documented as of this encounter Visit Diagnoses Not on filedocumented in this encounter Additional Health Concerns Assessment Noted Time PHQ-9 Depression Total Score: 0 04/02/20 23 2:10 PM EDT documented as of this encounter Care Teams Lumber Marker Relationship Specialty Start Date End Date Marc Nicolas AGNP PCP - General Family Medicine 10/22/22 04/20/23 Radha Shah FNP [address] [place] [address] PCP - General Family Medicine 04/21/23 04/25/24 Yecenia Frias FNP [address] [place] [address] PCP - General Family Medicine 04/26/24 Colby Hirsch FNP [address] [place] [address] Nurse Practitioner Family Medicine 07/13/23 Candice Ugarte Yard OperatorMental Health Consultant 12/27/23 documented as of this encounter
--- OUTSIDE RECORDS SUMMARY | 2025-05-22 14:22 | XMS_ITS | Encounter Summary ---
Author Organization [employer] Address 75 [facility] 7t [place] [address] Care Team Providers Care Pole Peeling Machine Operator Name Role Phone Marc Nicolas Primary Care Provider Unavail able Radha Shah Primary Care Provider +[phone] Colby Hirsch Unavailable Unavailable [facility] Primary Care Provider [phone] Reason for Visit * Reason Comments Med Refill Encounter Details Date Type Department Care Team (Late Contact Info) Description 04/08/2023 Refill [facility] [address] [place] [address] Marc Nicolas AGNP Mixed anxiety and depressive [...] Department Care Team (Late Contact Info) Description 07/04/2025 2:00 PM EST Office Visit [facility] [address] [place], [place] [phone] [facility] [address] [place], [place] [phone] 08/01/2025 2:00 PM EST Clinical Support [facility] [address] [place] [address] Kira Bansal, MEREDITH documented as of this encounter Visit Diagnoses Diagnosis Mixed anxiety and depressive disorder Dysthymic disorder documented in this encounter Additional Health Concerns Assessment Noted Time PHQ-9 Depression Total Score: 0 04/02/20 2:10 PM EDT documented as of this encounter Care Teams Pole Peeling Machine Operator Relationship Specialty Start Date End Date Marc Nicolas AGNP PCP - General Family Medicine 10/22/22 04/20/23 Radha Shah FNP [address] [place] [address] PCP - General Family Medicine 04/21/23 04/25/24 Yecenia Frias FNP [address] [place] [address] PCP - General Family Medicine 04/26/24 Colby Hirsch FNP [address] [place] [address] Nurse Practitioner Family Medicine 07/13/23 Candice Ugarte Pier HandWeb Operations Lead 12/27/23 documented as of this encounter
--- OUTSIDE RECORDS SUMMARY | 2025-05-22 14:22 | XMS_ITS | Encounter Summary ---
Author Organization [employer] Address 75 [facility] 7t [place] [address] Care Team Providers Care Civil Service Clerk Name Role Phone Marc Nicolas Primary Care Provider Unavail able Radha Shah Primary Care Provider +1 Colby Hirsch Unavailable Unavailable [facility] JUVENILE COUNSELOR Primary Care Provider [phone] Reason for Visit * Reason Comments Med Refill Encounter Details Date Type Department Care Team (Late st Contact Info) Description 03/10/2023 Refill [facility] [address] [place], [place] [phone] Marc Nicolas AGNP Mixed anxiety and depressive [...] Description 07/04/2025 2:00 PM EST Office Visit [facility] [address] [place] [address] GrampianYecenia FNP [facility] [place] [address] 08/01/2025 2:00 PM EST Clinical Support [facility] [place] [address] Kira Bansal, MEREDITH documented as of this encounter Visit Diagnoses Diagnosis Mixed anxiety and depressive disorder Dysthymic disorder documented in this encounter Additional Health Concerns Assessment Noted Time PHQ-9 Depression Total Score: 13 023 3:27 PM EDT documented as of this encounter Care Teams Civil Service Clerk Relationship Specialty Start Date End Date Marc Nicolas AGNP PCP - General Family Medicine 10/22/22 04/20/23 Radha Shah F[facility] [place] [address] PCP - General Family Medicine 04/21/23 04/25/24 GrampianYecenia FNP [facility] [place] [address] PCP - General Family Medicine 04/26/24 Colby Hirsch FNP [facility] [place] [address] Nurse Practitioner Family Medicine 07/13/23 Candice Ugarte Station AttendantBroomcorn Grader 12/27/23 documented as of this encounter
--- OUTSIDE RECORDS SUMMARY | 2025-05-22 14:22 | XMS_ITS | Encounter Summary ---
Author Organization [employer] Address [address] [facility] [address] 7t [place] [address] Care Team Providers Care Chiller Technician Name Role Phone Radha Shah WEB CONTENT COORDINATOR Primary Care Provider [phone] Colby Hirsch Unavailable Unavailable [facility] WEB CONTENT COORDINATOR Primary Care Provider [phone] Encounter Details Date Type Department Care Team (Late st Contact Info) Description 04/24/2024 Orders Only [facility] CHC MED & PEDS [address] [place] [address] Radha Shah FNP [address] [place] [address] Elevated lipids (Primary Dx) Social History Tobacco [...] Description 07/04/2025 2:00 PM EST Office Visit [address] [address] [place], [place], [facility] [address] [place] [address] 08/01/2025 2:00 PM EST Clinical Support [address] [address] Kira Bansal RN documented as of this encounter Procedures Procedure Name Priority Date/Time Associated Diagnosis Comments LIPID PANEL, STANDARD Routine 05/12/2024 11:00 AM EDT Elevated lipids documented in this encounter Results * (ABNORMAL) Lipid Panel, Standard (05/12/2024 11:00 AM EDT) Triglycerides 100 <150 mg/dL [facility] Comment:Desirable Triglyceri de: less than 150 mg/dLBorderline High Triglyceride 150-199 mg/dLHigh Triglyceride: 200-499 mg/dLVery High Triglyceride: greater than or equal to 5OO mg/dL Cholesterol 101 <200 mg/dL [facility] Comment:Desirable Cholestero l: less than 200 mg/dLBorderline High Cholesterol: 200-239 mg/dLHigh Cholesterol: greater than 239 mg/dL LDL Cholesterol Calculated 44 <100 mg/dL [facility] Comment:Desirable LDL: less than 100 mg/dLNear Optimal/Above Optimal LDL: 110- 129 mg/dLBorderline High LDL: 130-159 mg/dLHigh LDL: 160-189 mg/dLVery High LDL: greater than or equal to 190 mg/dL HDL Cholesterol 37(L) >40 mg/dL [facility] Comment:Desirable HDL: great er than 40 mg/dL Note: This HDL assay may give artificially low results in patients with liver disease. Blood Venous blood specimen / Unknown 05/12/2024 11:00 AM EDT 05/12/2024 11:00 AM EDT Radha CASEY LAB BLOOD ORDERABLES Final Resu lt [facility] [address] [place] [address] [phone] documented in this encounter Visit Diagnoses Diagnosis Elevated lipids- Primary documented in this encounter Additional Health Concerns Assessment Noted Time PHQ-9 Depression Total Score: 7 03/07/20 24 10:13 AM EDT documented as of this encounter Care Teams Chiller Technician Relationship Specialty Start Date End Date Radha Shah FNP [address] [place] [address] PCP - General Family Medicine 04/21/23 04/25/24 [place] FNP [address] [place] [address] PCP - General Family Medicine 04/26/24 Colby Hirsch FNP [address] [place] [address] Nurse Practitioner Family Medicine 07/13/23 Candice Ugarte Line Ordering ClinicianHand Quilter 12/27/23 documented as of this encounter
--- OUTSIDE RECORDS SUMMARY | 2025-05-22 14:22 | XMS_ITS | Encounter Summary ---
Author Organization [employer] Address 75 [facility] 7t [place] [address] Care Team Providers Care Gear Nicker Name Role Phone Marc Nicolas Primary Care Provider Unavail able Radha Shah Primary Care Provider [phone] Colby Hirsch Unavailable Unavailable [facility] TABLE ATTENDANT Primary Care Provider [phone] Reason for Visit * Reason Onset Date Comments Med Refill 04/09/2023 Encounter Details Date Type Department Care Team (Late st Contact Info) Description 04/09/2023 Refill [facility] MEDICINE [address] [place] [address] Marc Nicolas AGNP Mixed anxiety and depressive [...] listed in EHR, no record. Spoke with [facility] pharmacy, she is listed as Romaine [...] (KlonoPIN) 0.5 MG tablet Please sent to [facility] [place], [place] - [address] [place] [address] documented in this encounter Plan of Treatment Upcoming Encounters Date Type Department Care Team (Late st Contact Info) Description 07/04/2025 2:00 PM EST Office Visit [address] [address] Yeceina Frias FNP [address] [place] [address] 08/01/2025 2:00 PM EST Clinical Support [address] [address] Kira Bansal RN documented as of this encounter Visit Diagnoses Diagnosis Mixed anxiety and depressive disorder Dysthymic disorder documented in this encounter Additional Health Concerns Assessment Noted Time PHQ-9 Depression Total Score: 0 04/02/20 2:10 PM EDT documented as of this encounter Care Teams Gear Nicker Relationship Specialty Start Date End Date Marc Nicolas AGNP PCP - General Family Medicine 10/22/22 04/20/23 Radha Shah FNP [address] [place] [address] PCP - General Family Medicine 04/21/23 04/25/24 Yecenia Frias FNP [address] [place] [address] PCP - General Family Medicine 04/26/24 Colby Hirsch FNP [address] [place] [address] Nurse Practitioner Family Medicine 07/13/23 Candice Ugarte Strapper OperatorInformation Clerk 12/27/23 documented as of this encounter
--- OUTSIDE RECORDS SUMMARY | 2025-05-22 14:22 | XMS_ITS | Encounter Summary ---
Author Organization [employer] Address 75 [facility] 7t [place] [address] Care Team Providers Care Radiographer Technologist Name Role Phone PabloDanymargie CASEY Primary Care Provider +[phone] Colby Hirsch Unavailable Unavailable [facility] Primary Care Provider [phone] Reason for Visit * Reason Comments Med Refill Encounter Details Date Type Department Care Team (Late st Contact Info) Description 01/04/2024 Refill [facility] MEDIC[facility] [address] [place] [address] Colby Hirsch FNP Social History Tobacco Use [...] Description 07/04/2025 2:00 PM EST Office Visit [address] [address] [place] [address] [address] 08/01/2025 2:00 PM EST Clinical Support [address] [address] Kira Bansal RN documented as of this encounter Visit Diagnoses Not on filedocumented in this encounter Additional Health Concerns Assessment Noted Time PHQ-9 Depression Total Score: 6 12/28/19 24 11:17 AM EDT documented as of this encounter Care Teams Radiographer Technologist Relationship Specialty Start Date End Date Radha Shah FNP [address] [place] [address] PCP - General Family Medicine 04/21/23 04/25/24 [place] FNP [address] [place] [address] PCP - General Family Medicine 04/26/24 Colby Hirsch FNP [address] [place] [address] Nurse Practitioner Family Medicine 07/13/23 Candice Ugarte Arts Administrator Or ManagerTandem Mill Operator 12/27/23 documented as of this encounter
--- OUTSIDE RECORDS SUMMARY | 2025-05-22 14:22 | XMS_ITS | Encounter Summary ---
Author Organization [employer] Address [address] [facility] [address] 7t [place] [address] Care Team Providers Care Tool Operator Name Role Phone Radha Shah Primary Care Provider + Colby Hirsch Unavailable Unavailable [facility] CHAIR SPRING ASSEMBLER Primary Care Provider [phone] Encounter Details Date Type Department Care Team (Late st Contact Info) Description 03/08/2024 Orders Only [facility] CHC MED & PEDS [address] [place] [address] Radha Shah FNP [address] [place] [address] Social History Tobacco Use Types Packs/Day Years [...] Description 07/04/2025 2:00 PM EST Office Visit [address] [address] Yecenia Frias FNP [address] [place] [address] 08/01/2025 2:00 PM EST Clinical Support [address] [address] Kira Bansal RN documented as of this encounter Visit Diagnoses Not on filedocumented in this encounter Additional Health Concerns Assessment Noted Time PHQ-9 Depression Total Score: 7 03/07/20 24 10:13 AM EDT documented as of this encounter Care Teams Tool Operator Relationship Specialty Start Date End Date Radha Shah FNP [address] [place] [address] PCP - General Family Medicine 04/21/23 04/25/24 Yecenia Frias FNP [address] [place] [address] PCP - General Family Medicine 04/26/24 Colby Hirsch FNP [address] [place] [address] Nurse Practitioner Family Medicine 07/13/23 Candice Ugarte Dredge WorkerQuarry Equipment Operator 12/27/23 documented as of this encounter
--- OUTSIDE RECORDS SUMMARY | 2025-05-22 14:22 | XMS_ITS | Encounter Summary ---
Author Organization [employer] Address 75 [facility] 7t [place] [address] Care Team Providers Care Pathology Laboratory Director Name Role Phone Marc Nicolas Primary Care Provider Unavail able Radha Shah Primary Care Provider +3 Colby Hirsch Unavailable Unavailable [facility] ENVIRONMENTAL FIELD TEAM MEMBER Primary Care Provider [phone] Reason for Visit * Reason Comments Med Refill Encounter Details Date Type Department Care Team (Late st Contact Info) Description 03/10/2023 Refill [facility] [address] [place] [address] Marc Nicolas AGNP Mixed anxiety and depressive [...] Will send to PCP on 03/18/23. Has CHRISTMAS TREE FARM MANAGER scheduled 03/17/23. * Telephone Encounter - Chika Low - 03/15/2023 9:14 AM EDT Tc from patient requesting a med refill for medication tramadol [address] Nicolas documented in this encounter Plan of Treatment Upcoming Encounters Date Type Department Care Team (Late st Contact Info) Description 07/04/2025 2:00 PM EST Office Visit [address] [address] Yecenia Frias [address] [address] 08/01/2025 2:00 PM EST Clinical Support [address] [address] Kira Bansal RN documented as of this encounter Visit Diagnoses Diagnosis Mixed anxiety and depressive disorder Dysthymic disorder Multiple joint pain Pain in joint, multiple sites documented in this encounter Additional Health Concerns Assessment Noted Time PHQ-9 Depression Total Score: 13 023 3:27 PM EDT documented as of this encounter Care Teams Pathology Laboratory Director Relationship Specialty Start Date End Date Marc Nicolas AGNP PCP - General Family Medicine 10/22/22 04/20/23 Radha Shah FNP [address] [place] [address] PCP - General Family Medicine 04/21/23 04/25/24 Yecenia Frias FNP [address] [place] [address] PCP - General Family Medicine 04/26/24 Colby Hirsch FNP [address] [place] [address] Nurse Practitioner Family Medicine 07/13/23 Candice Ugarte Workforce Development Program DirectorAccount Services Analyst 12/27/23 documented as of this encounter
--- OUTSIDE RECORDS SUMMARY | 2025-05-22 14:22 | XMS_ITS | Encounter Summary ---
Author Organization [employer] Address [address] [facility] [address] 7t [place] [address] Care Team Providers Care Chemical Blender Name Role Phone Radha Shah Primary Care Provider +5 Colby Hirsch Unavailable Unavailable [facility] REGIONAL ACCOUNT MANAGER Primary Care Provider [phone] Encounter Details Date Type Department Care Team (Late st Contact Info) Description 02/16/2024 Orders Only [facility] CHC MED & PEDS [address] [place] [address] Radha Shah FNP [address] [place] [address] Routine adult health maintenance (Primary Dx) Social [...] Description 07/04/2025 2:00 PM EST Office Visit [address] [address] Yecenia Frias FNP [address] [place] [address] 08/01/2025 2:00 PM EST Clinical Support [address] [address] Kira Bansal RN documented as of this encounter Visit Diagnoses Diagnosis Routine adult health maintenance- Primary documented in this encounter Additional Health Concerns Assessment Noted Time PHQ-9 Depression Total Score: 6 12/28/19 24 11:17 AM EDT documented as of this encounter Care Teams Chemical Blender Relationship Specialty Start Date End Date Radha Shah FNP [address] [place] [address] PCP - General Family Medicine 04/21/23 04/25/24 Yecenia Frias FNP [address] [place] [address] PCP - General Family Medicine 04/26/24 Colby Hirsch FNP [address] [place] [address] [place] [address] Nurse Practitioner Family Medicine 07/13/23 Candice Ugarte Vascular PhysicianSupport Team Assoc 12/27/23 documented as of this encounter
--- OUTSIDE RECORDS SUMMARY | 2025-05-22 14:22 | XMS_ITS | Encounter Summary ---
Author Organization [employer] Address 75 [facility] 7t [place] [address] Care Team Providers Care Mass Communications Instructor Name Role Phone Radha Shah PLANT ASSOCIATE Primary Care Provider +7 Colby Hirsch Unavailable Unavailable [facility] Primary Care Provider [phone] Reason for Visit * Reason Comments Med Refill Encounter Details Date Type Department Care Team (Late st Contact Info) Description 06/30/2023 Refill [facility] MEDICINE 230 [place] [address] Radha Shah FNP 230 [place] [address] Multiple joint pain Social History Tobacco Use [...] Description 07/04/2025 2:00 PM EST Office Visit [address] [address] Yecenia Frias FNP [address] [place] [address] 08/01/2025 2:00 PM EST Clinical Support [address] [address] Kira Bansal, MEREDITH documented as of this encounter Visit Diagnoses Diagnosis Multiple joint pain Pain in joint, multiple sites documented in this encounter Additional Health Concerns Assessment Noted Time PHQ-9 Depression Total Score: 6 06/15/20 23 10:23 AM EDT documented as of this encounter Care Teams Mass Communications Instructor Relationship Specialty Start Date End Date Radha Shah FNP [address] [place] [address] PCP - General Family Medicine 04/21/23 04/25/24 Yecenia Frias FNP [address] [place] [address] PCP - General Family Medicine 04/26/24 Colby Hirsch FNP 230 [place] [address] Nurse Practitioner Family Medicine 07/13/23 Candice Ugarte Video Surveillance TechnicianAccounting Teacher 12/27/23 documented as of this encounter
--- OUTSIDE RECORDS SUMMARY | 2025-05-22 14:22 | XMS_ITS | Encounter Summary ---
Author Organization [employer] Address 75 [facility] 7t [place] [address] Care Team Providers Care Seamer Panty Hose Name Role Phone Marc Nicolas Primary Care Provider Unavail able Radha Shah BRANCHER Primary Care Provider +5 Colby Hirsch Unavailable Unavailable [facility] Primary Care Provider [phone] Reason for Visit * Reason Comments Med Refill Encounter Details Date Type Department Care Team (Late Contact Info) Description 04/07/2023 Refill [facility] CHC MED & PEDS [address] [place], [place] [phone] Marc Nicolas AGNP Multiple joint pain Social [...] Upcoming Encounters Date Type Department Care Team ([facility] Contact Info) Description 07/04/2025 2:00 PM EST Office Visit [facility] MEDICINE 230 [place], [place] [phone] [facility] [address] [place], [place] [phone] 08/01/2025 2:00 PM EST Clinical Support [facility] MEDIC[facility] 230 [place] [address] Kira Banasl RN documented as of this encounter Visit Diagnoses Diagnosis Multiple joint pain Pain in joint, multiple sites documented in this encounter Additional Health Concerns Assessment Noted Time PHQ-9 Depression Total Score: 0 04/02/20 2:10 PM EDT documented as of this encounter Care Teams Seamer Panty Hose Relationship Specialty Start Date End Date Marc Nicolas AGNP PCP - General Family Medicine 10/22/22 04/20/23 Radha Shah FNP 230 [place] [address] PCP - General Family Medicine 04/21/23 04/25/24 Yecenia Frias FNP [address] [place] [address] PCP - General Family Medicine 04/26/24 Colby Hirsch FNP [address] [place] [address] Nurse Practitioner Family Medicine 07/13/23 Candice Ugarte Hogshead InspectorFire Crew Specialist 12/27/23 documented as of this encounter
--- OUTSIDE RECORDS SUMMARY | 2025-05-22 14:22 | XMS_ITS | Encounter Summary ---
Author Organization [employer] Address 75 [facility] 7t [place] [address] Care Team Providers Care Raw Shellfish Preparer Name Role Phone Radha Shah PUNCHBOARD STUFFER Primary Care Provider +9 Colby Hirsch Unavailable Unavailable [facility] Primary Care Provider [phone] Reason for Visit * Reason Comments Med Refill Encounter Details Date Type Department Care Team (Late st Contact Info) Description 02/16/2024 Refill [facility] MEDICINE 230 [place] [address] Radha Shah FNP [address] [place] [address] Multiple joint pain Social History Tobacco Use [...] Description 07/04/2025 2:00 PM EST Office Visit [address] [address] Yecenia Frias FNP [address] [place] [address] 08/01/2025 2:00 PM EST Clinical Support [address] [address] Kira Bansal, MEREDITH documented as of this encounter Visit Diagnoses Diagnosis Multiple joint pain Pain in joint, multiple sites documented in this encounter Additional Health Concerns Assessment Noted Time PHQ-9 Depression Total Score: 6 12/28/19 24 11:17 AM EDT documented as of this encounter Care Teams Raw Shellfish Preparer Relationship Specialty Start Date End Date Radha Shah FNP [address] [place] [address] PCP - General Family Medicine 04/21/23 04/25/24 Yecenia Frias FNP [address] [place] [address] PCP - General Family Medicine 04/26/24 Colby Hirsch FNP 230 [place] [address] Nurse Practitioner Family Medicine 07/13/23 Candice Ugarte Telemetry NurseGeneral Superintendent 12/27/23 documented as of this encounter
--- OUTSIDE RECORDS SUMMARY | 2025-05-22 14:22 | XMS_ITS | Encounter Summary ---
Author Organization [employer] Address 75 [facility] 7t [place] [address] Care Team Providers Care Chemist Steroids Name Role Phone Marc Nicolas Primary Care Provider Unavail able Radha Shah Primary Care Provider +9 Colby Hirsch Unavailable Unavailable [facility] Primary Care Provider [phone] Reason for Visit * Reason Comments Med Refill Encounter Details Date Type Department Care Team (Late st Contact Info) Description 04/08/2023 Refill [facility] MEDICINE 230 [place], [place] [phone] Marc Nicolas AGNP Schizoaffective disorder, depressive type [...] Description 07/04/2025 2:00 PM EST Office Visit [facility] MEDICINE 230 [place], [place] [phone] [facility] 230 [place] [address] 08/01/2025 2:00 PM EST Clinical Support [facility] MEDICINE 230 [place] [address] Kira Bansal, RN documented as of this encounter Visit Diagnoses Diagnosis Schizoaffective disorder, depressive type (CMS/HCC) (HCC) Schizoaffective disorder, unspecified condition Mixed anxiety and depressive disorder Dysthymic disorder documented in this encounter Additional Health Concerns Assessment Noted Time PHQ-9 Depression Total Score: 0 04/02/20 2:10 PM EDT documented as of this encounter Care Teams Chemist Steroids Relationship Specialty Start Date End Date Marc Nicolas AGNP PCP - General Family Medicine 10/22/22 04/20/23 Radha [place] [address] PCP - General Family Medicine 04/21/23 04/25/24 Pennock[place] [address] PCP - General Family Medicine 04/26/24 Colby Hirsch FNP [address] [place] [address] Nurse Practitioner Family Medicine 07/13/23 Candice Ugarte Lead Atg DeveloperChecker/Stocker 12/27/23 documented as of this encounter
--- OUTSIDE RECORDS SUMMARY | 2025-05-22 14:22 | XMS_ITS | Encounter Summary ---
Author Organization [employer] Address 75 [facility] 7t [place] [address] Care Team Providers Care Level Glass Vial Filler Name Role Phone Radha Shah VICE PRESIDENT TAX Primary Care Provider +3 Colby Hirsch Unavailable Unavailable [facility] Primary Care Provider [phone] Reason for Visit * Reason Comments Med Refill Encounter Details Date Type Department Care Team (Late st Contact Info) Description 07/02/2023 Refill [facility]IC[facility] 230 [place] [address] Radha Shah FNP 230 [place] [address] Multiple joint pain Social History Tobacco Use [...] 07/04/2025 2:00 PM EST Office Visit [address] [address] Yecenia Frias FNP [address] [place] [address] 08/01/2025 2:00 PM EST Clinical Support [address] [address] Kira Bansla, MEREDITH documented as of this encounter Visit Diagnoses Diagnosis Multiple joint pain Pain in joint, multiple sites documented in this encounter Additional Health Concerns Assessment Noted Time PHQ-9 Depression Total Score: 6 06/15/20 23 10:23 AM EDT documented as of this encounter Care Teams Level Glass Vial Filler Relationship Specialty Start Date End Date Radha Shah FNP [address] [place] [address] PCP - General Family Medicine 04/21/23 04/25/24 Yecenia Frias FNP [address] [place] [address] PCP - General Family Medicine 04/26/24 Colby Hirsch FNP [address] [place] [address] Nurse Practitioner Family Medicine 07/13/23 Candice Ugarte On Site Soil EvaluatorLime Kiln Worker 12/27/23 documented as of this encounter
--- OUTSIDE RECORDS SUMMARY | 2025-05-22 14:22 | XMS_ITS | Encounter Summary ---
Author Organization [employer] Address 75 [facility] 7t [place] [address] Care Team Providers Care Hand Crocheter Name Role Phone Radha Shah NAVAL AIRCREWMAN HELICOPTER Primary Care Provider [phone] Colby Hirsch NAVAL AIRCREWMAN HELICOPTER Unavailable Unavailable [facility] NAVAL AIRCREWMAN HELICOPTER Primary Care Provider [phone] Reason for Visit * Reason Onset Date Comments Results 02/16/2024 Care Coordination 02/16/[address] Kelly joshua telephone call outreached Encounter Details Date Type Department Care Team ([facility] Contact Info) Description 02/16/2024 Telephone [facility] MEDICINE [address] [place] [address] Radha Shah FNP [address] [place] [address] Results; Care Coordination ([id number] Obrien telephone call outreached) Social History Tobacco [...] results: labs Date when done: 02/06 Facility: [facility] Please contact pt at [phone] documented in this encounter Plan of Treatment Upcoming Encounters Date Type Department Care Team (Late st Contact Info) Description 07/04/2025 2:00 PM EST Office Visit [address] [address] [address] [address] 08/01/2025 2:00 PM EST Clinical Support [facility] [place] [address] Kira Bansal RN documented as of this encounter Visit Diagnoses Not on filedocumented in this encounter Additional Health Concerns Assessment Noted Time PHQ-9 Depression Total Score: 6 12/28/19 24 11:17 AM EDT documented as of this encounter Care Teams Hand Crocheter Relationship Specialty Start Date End Date [place] [address] PCP - General Family Medicine 04/21/23 04/25/24 MertzonYecenia FNP [address] [place] [address] PCP - General Family Medicine 04/26/24 Colby Hirsch FNP [address] [place] [address] Nurse Practitioner Family Medicine 07/13/23 Candice Ugarte Profiler OperatorMaterial Control Clerk 12/27/23 documented as of this encounter
--- OUTSIDE RECORDS SUMMARY | 2025-05-22 14:22 | XMS_ITS | Encounter Summary ---
Author Organization [employer] Address 75 [facility] 7t [place] [address] Care Team Providers Care S3B Multi Sensor Operator Name Role Phone Colby Hirsch INSTITUTIONAL ASSET MANAGER Unavailable Unavailable [facility] Primary Care Provider [phone] Encounter Details Date Type Department Care Team ([facility] st Contact Info) Description 08/11/2024 Telephone [facility] MEDICINE 230 [place] [address] [facility] 230 [place] [address] Social History Tobacco Use Types Packs/Day Years [...] Description 07/04/2025 2:00 PM EST Office Visit [address] [address] MaljamarYecenia whipple [address] [address] 08/01/2025 2:00 PM EST Clinical Support [address] [address] Kira Bansal RN documented as of this encounter Visit Diagnoses Not on filedocumented in this encounter Additional Health Concerns Assessment Noted Time PHQ-9 Depression Total Score: 7 03/07/20 24 10:13 AM EDT documented as of this encounter Care Teams S3B Multi Sensor Operator Relationship Specialty Start Date End Date AltagraciaYecenia whipple FNP [address] [place] [address] PCP - General Family Medicine 04/26/24 Colby Hirsch FNP Nurse Practitioner Family Medicine 07/13/23 Candice Ugarte Supervisor Bridges And BuildingsSubstance Abuse Clinician 12/27/23 documented as of this encounter
--- OUTSIDE RECORDS SUMMARY | 2025-05-22 14:22 | XMS_ITS | Encounter Summary ---
Author Organization [employer] Address 75 [facility] 7t [place] [address] Care Team Providers Care Credit Collection Associate Name Role Phone Marc Nicolas Primary Care Provider Unavail able Radha Shah Primary Care Provider [phone] Colby Hirsch Unavailable Unavailable [facility] PUBLIC SCHOOL TEACHER Primary Care Provider [phone] Reason for Visit * Reason Onset Date Comments Med Refill 03/10/2023 Encounter Details Date Type Department Care Team ([facility] Contact Info) Description 03/10/2023 Telephone [facility] MEDICINE 230 [place], [place] [phone] Marc Nicolas AGNP Med Refill Social History [...] Upcoming Encounters Date Type Department Care Team ([facility] Contact Info) Description 07/04/2025 2:00 PM EST Office Visit [facility] MEDICINE [address] [place] [address] [place] ButlerYecenia FNP 230 [place] [address] 08/01/2025 2:00 PM EST Clinical Support [facility] MEDICINE [address] [place], [place] [phone] Kira Bansal RN documented as of this encounter Visit Diagnoses Not on filedocumented in this encounter Additional Health Concerns Assessment Noted Time PHQ-9 Depression Total Score: 13 023 3:27 PM EDT documented as of this encounter Care Teams Credit Collection Associate Relationship Specialty Start Date End Date Marc Nicolas AGNP PCP - General Family Medicine 10/22/22 04/20/23 Radha Shah FNP [address] [place] [address] PCP - General Family Medicine 04/21/23 04/25/24 East ButlerYecenia FNP [address] [place] [address] PCP - General Family Medicine 04/26/24 Colby Hirsch FNP [address] [place] [address] Nurse Practitioner Family Medicine 07/13/23 Candice Ugarte Turner Machine OperatorChemical Laboratory Technician 12/27/23 documented as of this encounter
--- OUTSIDE RECORDS SUMMARY | 2025-05-22 14:22 | XMS_ITS | Encounter Summary ---
Author Organization [employer] Address 75 [facility] 7t [place] [address] Care Team Providers Care Clin Tech Name Role Phone Marc Nicolas Primary Care Provider Unavail able Radha Shah Primary Care Provider [phone] Colby Hirsch Unavailable Unavailable [facility] INSOLE TACK PULLER HAND Primary Care Provider [phone] Reason for Visit * Reason Onset Date Comments Med Refill 03/16/2023 Encounter Details Date Type Department Care Team (Late st Contact Info) Description 03/16/2023 Telephone [facility] MEDICINE 230 [place], [place] [phone] Marc Nicolas AGNP Med Refill Social History [...] 03/16/2023 3:56 PM EDT Pt scheduled for PATIENT CARE NURSING ASSISTANT RV 03/17/23 @ 10am. Tramadol refill due 03/19/23, Clonazepam refill due 03/18/23.Will forward request to PCP after PATIENT CARE NURSING ASSISTANT appt 03/17/23. * Telephone Encounter - Natividad Pate - 03/16/2023 3:36 PM EDT Tc from pt requesting medication refill on traMADol (Ultram) 50 MG tablet and clonazePAM (KlonoPIN)0.5 MG tablet documented in this encounter Plan of Treatment Upcoming Encounters Date Type Department Care Team (Late st Contact Info) Description 07/04/2025 2:00 PM EST Office Visit [address] [address] Yecenia Frias [address] [address] 08/01/2025 2:00 PM EST Clinical Support [address] [address] Kira Bansal RN documented as of this encounter Visit Diagnoses Not on filedocumented in this encounter Additional Health Concerns Assessment Noted Time PHQ-9 Depression Total Score: 13 023 3:27 PM EDT documented as of this encounter Care Teams Clin Tech Relationship Specialty Start Date End Date Marc Nicolas AGNP PCP - General Family Medicine 10/22/22 04/20/23 Radha Shah FNP [address] [place] [address] PCP - General Family Medicine 04/21/23 04/25/24 AltagraciaYecenia whipple FNP [address] [place] [address] PCP - General Family Medicine 04/26/24 Colby Hirsch FNP 230 [place] [address] Nurse Practitioner Family Medicine 07/13/23 Candice Ugarte Conveyor System DispatcherSupervising Producer 12/27/23 documented as of this encounter
--- OUTSIDE RECORDS SUMMARY | 2025-05-22 14:22 | XMS_ITS | Encounter Summary ---
Author Organization [employer] Address 75 [facility] 7t [place] [address] Care Team Providers Care Accounting Assistant Name Role Phone Radha Shah CLEAT FEEDER Primary Care Provider +[phone] Colby Hirsch Unavailable Unavailable [facility] Primary Care Provider [phone] Encounter Details Date Type Department Care Team (Late st Contact Info) Description 02/17/2024 Community Care Management [facility] MEDICINE [address] [place] [address] Radha Shah FNP [address] [place] [address] Social History Tobacco Use Types Packs/Day Years [...] Description 07/04/2025 2:00 PM EST Office Visit [address] [address] Yecenia Frias FNP [address] [place] [address] 08/01/2025 2:00 PM EST Clinical Support [address] [address] Kira Bansal RN documented as of this encounter Visit Diagnoses Not on filedocumented in this encounter Additional Health Concerns Assessment Noted Time PHQ-9 Depression Total Score: 6 12/28/19 24 11:17 AM EDT documented as of this encounter Care Teams Accounting Assistant Relationship Specialty Start Date End Date Radha Shah FNP [address] [place] [address] PCP - General Family Medicine 04/21/23 04/25/24 Yecenia Frias FNP [address] [place] [address] PCP - General Family Medicine 04/26/24 Colby Hirsch FNP [address] [place] [address] Nurse Practitioner Family Medicine 07/13/23 Candice Ugarte Cabbage SalterSmalltalk Developer 12/27/23 documented as of this encounter
--- OUTSIDE RECORDS SUMMARY | 2025-05-22 14:22 | XMS_ITS | Encounter Summary ---
Author Organization [employer] Address [address] [facility] 7t [place] [address] Care Team Providers Care Naval Science Teacher Name Role Phone Radha Shah FIELD CROP HARVEST CONTRACTOR Primary Care Provider [phone] Colby Hirsch FIELD CROP HARVEST CONTRACTOR Unavailable Unavailable [facility] FIELD CROP HARVEST CONTRACTOR Primary Care Provider [phone] Reason for Visit * Reason Comments Med Refill Encounter Details Date Type Department Care Team (Late st Contact Info) Description 06/09/2023 Refill [facility] MEDICINE [address] [place] [address] Marilee Buckner FNP Multiple joint pain; Mixed [...] Description 07/04/2025 2:00 PM EST Office Visit [address] [address] AltagraciaYecenia whipple [address] [address] 08/01/2025 2:00 PM EST Clinical Support [address] [address] Kira Bansal RN documented as of this encounter Visit Diagnoses Diagnosis Multiple joint pain Pain in joint, multiple sites Mixed anxiety and depressive disorder Dysthymic disorder documented in this encounter Additional Health Concerns Assessment Noted Time PHQ-9 Depression Total Score: 18 023 11:25 AM EDT documented as of this encounter Care Teams Naval Science Teacher Relationship Specialty Start Date End Date Radha Shah FNP [address] [place] [phone] PCP - General Family Medicine 04/21/23 04/25/24 FedscreekYecenia FNP [address] [place] [address] PCP - General Family Medicine 04/26/24 Colby Hirsch FNP [address] [place] [address] Nurse Practitioner Family Medicine 07/13/23 Candice Ugarte Printer Repair TechnicianEdge Sander 12/27/23 documented as of this encounter
--- OUTSIDE RECORDS SUMMARY | 2025-05-22 14:22 | XMS_ITS | Encounter Summary ---
Author Organization [employer] Address [address] [facility] 7t [place] [address] Care Team Providers Care Welder Apprentice Gas Name Role Phone Colby Hirsch MACHINE TRIMMER Unavailable Unavailable [facility] Primary Care Provider [phone] Reason for Visit * Reason Comments Med Refill Encounter Details Date Type Department Care Team ([facility] st Contact Info) Description 10/31/[address] [facility] MEDICINE [address] [place], [place] [phone] [facility] [address] [place] [address] Type 2 diabetes mellitus without complication, with long-term current use of insulin ([facility]) Social History Tobacco Use Types Packs/Day Years [...] Description 07/04/2025 2:00 PM EST Office Visit [address] [address] Yecenia Frias FNP [address] [place] [address] 08/01/2025 2:00 PM EST Clinical Support [address] [address] Kira Bansal RN documented as of this encounter Visit Diagnoses Diagnosis Type 2 diabetes mellitus without complication, with long-term current use of insulin (HCC) documented in this encounter Additional Health Concerns Assessment Noted Time PHQ-9 Depression Total Score: 0 10/24/19 25 1:15 PM EST documented as of this encounter Care Teams Welder Apprentice Gas Relationship Specialty Start Date End Date Yecenia Frias FNP [address] [place] [address] PCP - General Family Medicine 04/26/24 Colby Hirsch FNP Nurse Practitioner Family Medicine 07/13/23 Candice Ugarte CombinerEnd Touching Machine Operator 12/27/23 documented as of this encounter
--- OUTSIDE RECORDS SUMMARY | 2025-05-22 14:22 | XMS_ITS | Encounter Summary ---
Author Organization [employer] Address [address] [facility] 7t [place] [address] Care Team Providers Care Service Liaison Representative Name Role Phone Radha Shah POWERHOUSE TENDER Primary Care Provider [phone] Colby Hirsch POWERHOUSE TENDER Unavailable Unavailable [facility] POWERHOUSE TENDER Primary Care Provider [phone] Reason for Visit * Reason Comments Med Refill Encounter Details Date Type Department Care Team (Late st Contact Info) Description 06/16/2023 Refill [facility] MEDICINE [address] [place] [address] Marc Nicolas AGNP Pain Social History Tobacco [...] Description 07/04/2025 2:00 PM EST Office Visit [address] [address] [place] [address] [address] 08/01/2025 2:00 PM EST Clinical Support [address] [address] Kira Bansal RN documented as of this encounter Visit Diagnoses Diagnosis Pain Generalized pain documented in this encounter Additional Health Concerns Assessment Noted Time PHQ-9 Depression Total Score: 6 06/15/20 23 10:23 AM EDT documented as of this encounter Care Teams Service Liaison Representative Relationship Specialty Start Date End Date Radha Shah FNP [address] [place] [address] PCP - General Family Medicine 04/21/23 04/25/24 ComancheYecenia FNP [address] [place] [address] PCP - General Family Medicine 04/26/24 Colby Hirsch FNP [address] [place] [address] Nurse Practitioner Family Medicine 07/13/23 Candice Ugarte Counter AttendantSubstation Operator Helper Generation 12/27/23 documented as of this encounter
--- OUTSIDE RECORDS SUMMARY | 2025-05-22 14:22 | XMS_ITS | Encounter Summary ---
Author Organization [employer] Address [address] [facility] 7t [place] [address] Care Team Providers Care Nip Wrapper Name Role Phone Colby Hirsch LOOM CLEANER Unavailable Unavailable [facility] Primary Care Provider [phone] Reason for Visit * Reason Onset Date Comments Med Refill 09/29/2024 Encounter Details Date Type Department Care Team ([facility] st Contact Info) Description 09/29/2024 Telephone [facility] MEDICINE [address] [place], [place] [phone] [facility] [address] [place] [address] Med Refill Social History Tobacco Use Types [...] 50 MG tablet To be sent to: [facility] documented in this encounter Plan of Treatment Upcoming Encounters Date Type Department Care Team (Late st Contact Info) Description 07/04/2025 2:00 PM EST Office Visit [facility] MEDICINE [address] [place] [address] [facility] [address] [place], [place] [phone] 08/01/2025 2:00 PM EST Clinical Support [facility] MEDICINE [address] [place] [address] Kira Bansal RN documented as of this encounter Visit Diagnoses Not on filedocumented in this encounter Additional Health Concerns Assessment Noted Time PHQ-9 Depression Total Score: 7 03/07/20 24 10:13 AM EDT documented as of this encounter Care Teams Nip Wrapper Relationship Specialty Start Date End Date Yecenia Frias FNP [address] [place] [address] PCP - General Family Medicine 04/26/24 Colby Hirsch FNP Nurse Practitioner Family Medicine 07/13/23 Candice Ugarte Household Personal AssistantPublic Works Commissioner 12/27/23 documented as of this encounter
== END 2025-05-22 13:10 | disposition home or self-care (01) ==
LOC: HO.HHCX 13:09
PROVIDERS: PCP Family Medicine; Visit Provider Family Medicine
DX: M79.671 Pain in right foot (principal); M79.672 Pain in left foot
CPT/HCPCS: 73630

== ENCOUNTER → 2025-05-22 13:16 | Outpatient (BNV) | payer MEDICAID, SELFPAY | PROVIDERS: PCP Family Medicine; Visit Provider Radiology Diagnostic Radiology | DX: M79.672 Pain in left foot (principal); M77.31 Calcaneal spur, right foot; M20.11 Hallux valgus (acquired), right foot | CPT/HCPCS: 73630 ==

== ENCOUNTER 2025-06-20 11:50 | Outpatient (REF) | payer MEDICAID, SELFPAY ==
--- OUTSIDE RECORDS SUMMARY | 2024-01-26 11:20 | XMS_ITS ---
Author Organization [facility] Address [address] [place] [address] Care Team Providers Care Television Repair Teacher Name Role Phone Radha Rodriguez Primary Care Provider Jaylan Clancy Unavailable [phone] REASON FOR VISIT Patient presents today for FATTY LIVER Encounters Encounter Location Date Provider Diagnosis [facility] [address] [place] [phone] 01/26/2024 aJylan Neal Plan Of Treatment No Information Progress Notes * MADHU ABASDOB: 0 (44 yo F)Acc No.[id number]:01/26/2024 Progress Notes Patient: HARMAN MCKEON Provider: Geovani Neal MD :1980 A ge:43 Y S ex:Female Date:01/26/2024 Address:[address] [place], [place] [phone] Pcp:JACINTO Ramos Subjective: * Chief Complaints: * [...] MD Date: 0 01/26/2024 Generated for Ashlee perez/Lisa/eTransmitting on: 1 03:14 PM EDT
--- OUTSIDE RECORDS SUMMARY | 2024-06-20 09:20 | XMS_ITS ---
Author Organization [facility] Address [address] [place] [address] Care Team Providers Care Excel Expert Name Role Phone Radha Rodriguez Primary Care Provider Jaylan Clancy [phone] REASON FOR VISIT FATTY LIVER Encounters Encounter Location Date Provider Diagnosis [facility] [address] [place] [address] 06/20/2024 Jaylan Neal Plan Of Treatment No Information Progress Notes * ABA LEUNGSDOB: 0 (44 yo F)Acc No.[id number]:06/20/2024 Progress Notes Patient: HARMAN MCKEON Provider: Geovani Neal MD :1980 A ge:43 Y S ex:Female Date:06/20/2024 Address:[address] [place], [place] [id number] Pcp:JACINTO Ramos Subjective: * Chief Complaints: * 1 . FATTY LIVER. * Medical History: Objective: * Vitals: Assessment: Plan: * Treatment: * * The named appointment provid er may or may not be the originator of this progress note, and it is not deemed complete until electronically signed by the appointment provider. Sign off status: Pending * Provider: Geovani Neal MD Date: Generated for Ashlee perez/Lisa/eTodiliasmitting on: 03:14 PM EDT
--- OUTSIDE RECORDS SUMMARY | 2024-06-20 09:20 | XMS_ITS ---
Author Organization [facility] Address [address] [place] [address] Care Team Providers Care Materials Analyst Name Role Phone Radha Rodriguez Primary Care Provider Jaylan Clancy Unavailable [phone] REASON FOR VISIT Patient presents today for FATTY LIVER Encounters Encounter Location Date Provider Diagnosis [facility] [address] [place] [address] 06/20/2024 Jaylan Neal Plan Of Treatment No Information Progress Notes * MADHU JAZLYNHAYLEESDOB: 0 (44 yo F)Acc No.[id number]:06/20/2024 Progress Notes Patient: HARMAN MCKEON Provider: Geovani Neal MD :1980 A ge:43 Y S ex:Female Date:06/20/2024 Address:[address] [place], [place] [phone] Pcp:JACINTO Ramos Subjective: * Chief Complaints: * [...] MD Date: Generated for Ashlee perez/Lisa/eTransmitting on: 03:13 PM EDT
[2025-06-20 13:44] LABS: Alanine Aminotransferase 19 U/L (0-31); Albumin Level 4.4 g/dL (3.5-5.0); Alkaline Phosphatase 125 U/L (39-117); Anion Gap 12 (12-20); Aspartate Amino Transferase 28 U/L (5-31); Blood Urea Nitrogen 14 mg/dL (9-16); Calcium 9.1 mg/dL (8.4-10.2); Carbon Dioxide 24 mmol/L (22-29); Chloride 112 mmol/L (96-108); Estimated Glomerular Filt Rate > 60; Potassium 3.7 mmol/L (3.3-5.1); Sodium 144 mmol/L (135-145); Total Protein 7.5 g/dL (6.5-8.0)
--- OUTSIDE RECORDS SUMMARY | 2025-06-20 15:13 | XMS_ITS | Encounter Summary ---
Author Organization [employer] Address 75 [facility] 7t [place] [address] Care Team Providers Care Customer Account Coordinator Name Role Phone Ruth Hoffmann HYDRODYNAMICS TEACHER Primary Care Provider Marc Nava Primary Care Provider Unavail able Radha Shah HYDRODYNAMICS TEACHER Primary Care Provider [phone] Colby HirschP Unavailable Unavailable [facility] HYDRODYNAMICS TEACHER Primary Care Provider [phone] Reason for Visit * Reason Onset Date Comments Appointment Request 10/01/2022 Encounter Details Date Type Department Care Team (Late st Contact Info) Description 10/01/2022 Telephone [facility] [address] [place] [address] Ruth Hoffmann FNP Appointment Request Social History [...] Description 07/04/2025 2:00 PM EST Office Visit [facility] [address] [place] [address] Yecenia Frias FNP [address] [place] [address] 08/01/2025 2:00 PM EST Clinical Support [facility] [address] [place] [address] iKra Bansal RN 10/04/2025 2:00 PM EST Office Visit [facility] OPTOMETRY [address] [place] [address] Akila Elizabeth, OD [address] [place] [address] documented as of this encounter Visit Diagnoses Not on filedocumented in this encounter Care Teams Customer Account Coordinator Relationship Specialty Start Date End Date Ruth Hoffmann FNP PCP - General Family Medicine 07/21/22 10/21/22 Marc Nicolas AGNP PCP - General Family Medicine 10/22/22 04/20/23 Radha Shah FNP [address] [place] [address] PCP - General Family Medicine 04/21/23 04/25/24 Yecenia Frias FNP [address] [place] [address] PCP - General Family Medicine 04/26/24 Colby Hirsch FNP [address] [place] [address] Nurse Practitioner Family Medicine 07/13/23 Candice Ugarte Combination OperatorControl Systems Drafting Officer 12/27/23 documented as of this encounter
--- OUTSIDE RECORDS SUMMARY | 2025-06-20 15:13 | XMS_ITS | Encounter Summary ---
Author Organization [employer] Address [address] [facility] [address] 7t [place] [address] Care Team Providers Care Music Minister Name Role Phone Colby Hirsch CHAIN MACHINE OPERATOR Unavailable Unavailable [facility] Primary Care Provider [phone] Encounter Details Date Type Department Care Team ([facility] st Contact Info) Description 06/18/2025 Orders Only [facility] [address] [place] [address] [facility] [address] [place] [address] Vitamin A deficiency (Primary Dx) Social History Tobacco Use Types [...] Upcoming Encounters Date Type Department Care Team ([facility] st Contact Info) Description 07/04/2025 2:00 PM EST Office Visit [facility] [address] [place] [address] Yecenia Frias FNP [address] [place] [address] 08/01/2025 2:00 PM EST Clinical Support [facility] [address] [place] [address] Kira Bansal, MEREDITH 10/04/2025 2:00 PM EST Office Visit [facility] OPTOMETRY [address] [place] [address] Akila Elizabeth, OD [address] [place] [address] Scheduled Orders Name Type Priority Associated Diagnoses Orde r Schedule Vitamin A Lab Routine Vitamin A deficiency Expected: 06/18/2025 (Approximate), Expires: 06/18/2026 documented as of this encounter Visit Diagnoses Diagnosis Vitamin A deficiency- Primary documented in this encounter Additional Health Concerns Assessment Noted Time PHQ-9 Depression Total Score: 025 1:53 PM EDT documented as of this encounter Care Teams Music Minister Relationship Specialty Start Date End Date eYcenia Frias FNP [address] [place] [address] PCP - General Family Medicine 04/26/24 Colby Hirsch FNP Nurse Practitioner Family Medicine 07/13/23 Candice Ugarte Fountain Brush AssemblerSaw Man 12/27/23 documented as of this encounter
--- OUTSIDE RECORDS SUMMARY | 2025-06-20 15:13 | XMS_ITS | Encounter Summary ---
Author Organization [employer] Address 75 [facility] 7t [place] [address] Care Team Providers Care Digital Media Strategist Name Role Phone Colby Hirsch NAME PLATE STAMPER Unavailable Unavailable [facility] Primary Care Provider [phone] Reason for Visit * Reason Comments Med Refill Encounter Details Date Type Department Care Team ([facility] st Contact Info) Description 01/02/2025 Refill [facility] MEDICINE [address] [place], [place] [phone] [facility] 230 [place] [address] Viral upper respiratory illness Social History Tobacco [...] Description 07/04/2025 2:00 PM EST Office Visit [facility] MED[facility] [address] [place] [address] Yecenia Frias FNP [address] [place] [address] 08/01/2025 2:00 PM EST Clinical Support [facility] [address] [place] [address] Kira Bansal RN 10/04/2025 2:00 PM EST Office Visit [facility] OPTOMETRY [address] [place] [address] Glenn, Akila, OD [address] [place] [address] documented as of this encounter Visit Diagnoses Diagnosis Viral upper respiratory illness documented in this encounter Additional Health Concerns Assessment Noted Time PHQ-9 Depression Total Score: 0 10/24/19 25 1:15 PM EST documented as of this encounter Care Teams Digital Media Strategist Relationship Specialty Start Date End Date Yecenia Frias FNP [address] [place] [address] PCP - General Family Medicine 04/26/24 Colby Hirsch FNP Nurse Practitioner Family Medicine 07/13/23 Candice Ugarte Forming Machine Upkeep Mechanic HelperSteel Pickler 12/27/23 documented as of this encounter
--- OUTSIDE RECORDS SUMMARY | 2025-06-20 15:13 | XMS_ITS | Encounter Summary ---
Author Organization [employer] Address 75 [facility] 7t [place] [address] Care Team Providers Care Photostat Operator Name Role Phone Colby Hirsch TACTICAL AIR CONTROL PARTY Unavailable Unavailable [facility] TACTICAL AIR CONTROL PARTY Primary Care Provider [phone] Encounter Details Date Type Department Care Team ([facility] st Contact Info) Description 06/20/2025 Orders Only GENERIC EXTERNAL DATA DEPARTMENT Provider, [...] Description 07/04/2025 2:00 PM EST Office Visit [facility] MEDICINE [address] [place] [address] MentoneYecenia FNP [address] [place] [address] 08/01/2025 2:00 PM EST Clinical Support [facility] [address] [place] [address] Kira Bansal RN 10/04/2025 2:00 PM EST Office Visit [facility] OPTOMETRY [address] [place] [address] Akila Elizabeth, OD [address] [place] [address] documented as of this encounter Procedures Procedure Name Priority Date/Time Associated Diagnosis Comments HEMOGLOBIN A1C Routine 06/20/2025 11:55 AM EDT COMPREHENSIVE METABOLIC PANEL Routine 06/20/2025 11:55 AM EDT documented in this encounter Results * Hemoglobin A1c (06/20/2025 11:55 AM EDT) Hemoglobin A1c 5.6 <6.0 % [facility] Comment:Hemoglobin A1C Refer ence Range Adults: 4.8 - 6.0 % Non diabetic: < 6.0 % Goal: < 7.0 %Additional Action Suggested: > 8.0 %Note: Hemoglobin A1c results are invalid for patients with abnormal amounts of HbF. Blood transfusions may impact the HbA1c concentration in the patient sample. Estimated Average Glucose 114 mg/dL [facility] Comment:eAG = Estimated ave rage glucose which is %A1C expressed asaverage glucose, using the formula of the M5X-ShgbavhZbhpyuc Glucose study (ADAG), Diabetes Care, Vol.31,#8,2007 06/20/2025 11:5 5 AM EDT 06/20/2025 1:13 PM EDT us Generic External Data Provider LAB BLOOD ORDERAB LES Final Result [facility] [address] [place] [address] [phone] * (ABNORMAL) Comprehensive Metabolic Panel (06/20/2025 11:55 AM EDT) Sodium 144 135 - 145 mmol/L [facility] Potassium 3.7 3.3 - 5.1 mmol/L [facility] Chloride 112(H) 96 - 108 mmol/L [facility] Carbon Dioxide 24 22 - 29 mmol/L [facility] Anion Gap 12 12 - 20 [facility] Urea Nitrogen (BUN) 14 9 - 16 mg/dL [facility] Creatinine, Serum 0.67 0.5 - 1.4 mg/dL [facility] Estimated Glomerular Filt Rate >60 [facility] Comment:Chronic Kidney Disea se: Estimated GFR < 60 mL/min/[id number] Kidney Disease: Estimated GFR < 15 mL/min/1.73m2 Glucose 127(H) 60 - 115 mg/dL [facility] Calcium 9.1 8.4 - 10.2 mg/dL [facility] Bilirubin, Total 0.4 0.0 - 1.0 mg/dL [facility] Aspartate Amino Transferase 28 5 - 31 U/L [facility] Alanine Aminotransferase 19 0 - 31 U/L [facility] Total Protein 7.5 6.5 - 8.0 g/dL [facility] Albumin Level 4.4 3.5 - 5.0 g/dL [facility] Alkaline Phosphatase 125(H) 39 - 117 U/L [facility] 06/20/2025 11:5 5 AM EDT 06/20/2025 1:13 PM EDT us Generic External Data Provider LAB BLOOD ORDERAB LES Final Result [facility] [address] [place] [address] [phone] documented in this encounter Visit Diagnoses Not on filedocumented in this encounter Additional Health Concerns Assessment Noted Time PHQ-9 Depression Total Score: 10 025 1:53 PM EDT documented as of this encounter Care Teams Photostat Operator Relationship Specialty Start Date End Date Yecenia Frias FNP [address] [place] [address] PCP - General Family Medicine 04/26/24 Colby Hirsch FNP Nurse Practitioner Family Medicine 07/13/23 Candice Ugarte Lithograph Press FeederUi Architect 12/27/23 documented as of this encounter
--- OUTSIDE RECORDS SUMMARY | 2025-06-20 15:13 | XMS_ITS | Clinical Summary ---
Author Organization [employer] Address [address] [facility] 7t [place] [address] Care Team Providers Care Boatswains Mate Name Role Phone Colby Hirsch DESIGN ANALYST Unavailable Unavailable [facility] DESIGN ANALYST Primary Care Provider [phone] Allergies Active Allergy Reactions Criticality Noted Date [...] complication, with long-term current use of insulin ([facility]) TAKE 1 TABLET BY MOUTH EVERY DAY WITH DINNER 90 tablet 1 024 Active glucose blood test stripIndications :Type 2 diabetes mellitus without complication, with long-term current use of insulin ([facility]) 1 each by Other route [...] complication, with long-term current use of insulin ([facility]) 1 Device 2 times daily. 1 kit 024 Active Alcohol Swabs (Alcohol Prep) 70 % pads USE 1 FOUR TIMES DAILY DIRECTED 200 each 11 025 Active omeprazole (PriLOSEC) [address] capsule TAKE 1 CAPSULE BY MOUTH EVERY MORNING BEFORE BREAKFAST. DO NOT BREAK, CRUSH, DISSOLVE OR CHEW. 90 capsule 3 025 Active oxymetazoline (Afrin Nasal [place]) 0.05 % nasal sprayIndications :Viral upper respiratory illness Administer 2 sprays into each nostril every 12 (twelve) hours if needed for congestion for up to 2 days. Do not use for more than 3 days. 30 mL 025 Active beta carotene (vitamin A) 3 MG (49487 UT) capsule TAKE 1 CAPSULE BY MOUTH [...] mild pain. 60 tablet 1 025 Active SUMAtriptan (Imitrex) 50 MG tablet Take 1 tablet (50 mg) by mouth 1 (one) time if needed for migraine for up to 27 doses. May repeat 2nd dose after 2 hours if needed 9 tablet 2 025 Active gabapentin (Neurontin) 300 MG capsule Take 1 capsule (300 mg) by mouth at bedtime. 30 capsule 3 025 2025 Active Diclofenac Sodium 1 % gel Apply once a day on the affected hand 100 g 1 025 Active traMADol (Ultram) 50 MG tabletIndication s:Multiple joint pain TAKE 1 TABLET BY MOUTH EVERY TWELVE HOURS NEEDED FOR SEVERE PAIN FOR UP TO 28 DAYS 56 tablet 025 2024 Active SUMAtriptan (Imitrex) [...] May 18, 2025. 56 tablet 025 2024 Discontinued Active Problems Problem Noted [...] system PLAN: 1. Follow up with [facility]: Not recommended for follow-up 2. Patient [...] mechanism to manage sxs, provided her with [facility] Crisis number for after hrs [...] skills discussed in session. She will contact [facility] crisis number as needed. Patient [...] services PLAN: 1. Follow up with [facility]: Not recommended for follow-up 2. Patient [...] >60 CM >60 CM Comment: NOTE: For -Singaporean individuals, multiply the result by 1.210.Chronic Kidney Disease: Estimated GFR < 60 mL/min/1.36n3Gpkjji Kidney Disease: Estimated GFR < 15 mL/min/1.73m2 [...] >60 CM >60 CM Comment: NOTE: For -Singaporean individuals, multiply the result by 1.210.Chronic Kidney Disease: Estimated GFR < 60 mL/min/1.71d3Kjwrkn Kidney Disease: Estimated GFR < 15 mL/min/1.73m2 [...] psychotic features with peripartum onset, unspecified trimester ([facility]) 01/21/2023 0 01/21/2023 Schizoaffective disorder, de pressive type ([facility]) 01/21/2023 02/27/2025 Overview (02/17/2023): Diagnostic evaluation per [...] in person with a female clinician in [place]. At this time Sacha Rodriguez meets criteria for Visit Diagnoses: Anxiety Disorder Unspecified Patient ready to address current needs Yes Strengths include coping mechanisms of walking and distracting self PLAN: 1. Follow up with [facility]: Not recommended for follow-up 2. Patient [...] retiring patient is now referred to new [facility] psychiatric provider. Pt is aware that appts will be via televisit and that provider will not be an [facility] employee. She gives permission to share [...] night at bedtime (not prn). Based on [employer] M[employer] SUPERVIS[employer] notes, she appears to be taking Clonazepam [...] Encounters Date Type Department Care Team Description 06/20/2025 Orders Only GENERIC EXTERNAL DATA DEPARTMENT Provider, Generic External Data 06/18/2025 Orders Only [facility] [address] [place] [address] [facility] Vitamin A deficiency (Primary Dx) 06/17/2025 Refill [facility] [address] [place] [address] [facility] 06/13/2025 Travel 06/11/2025 Refill [facility] [address] [place] [address] [facility] Multiple joint pain 05/22/2025 12:00 PM EDT Office Visit [address] [address] Cheryl Galan DO Paresthesia of both feet (Primary Dx); Pain of both heels; Morning headache; Type 2 diabetes mellitus without complication, with long-term current use of insulin ([facility]); Pain of left thumb 05/22/2025 Travel 05/22/2025 Telephone [facility] [address] [place] [address] Yecenia Frias DESIGN ANALYST Chart Prep 05/16/2025 Telephone [facility] [address] [place] [address] Yecenia Frias [facility] telephone call 05/14/2025 Refill [facility] [address] [place] [address] Yecenia Frias [facility] Multiple joint pain 05/07/2025 2:40 PM EDT Office Visit [facility] [address] [place] [address] Tony Haywood MD Sore throat (Primary Dx); Stuffy and runny nose; Malaise; Headache, unspecified headache type 05/07/2025 Travel 04/30/2025 1:00 PM EDT Clinical Support [facility] [address] [place], [place] [address] [address] Kira Bansal RN Long-term current use of opiate analgesic (Primary Dx) 04/30/2025 Telephone [facility] [address] [facility] [address] Kira Bansal, RN BPI Scoring 04/30/2025 Travel 04/18/2025 Refill [facility] [address] [place] [address] Yecenia Frias [facility] Arthralgia, unspecified joint 04/16/2025 Refill [facility] [address] [place] [address] [facility] Multiple joint pain 04/16/[address] [address] [facility] Multiple joint pain from Last 3 Months Immunizations Immunization Administration [...] 07/04/2025 2:00 PM EST Office Visit [facility] [address] [place] [address] [place], [place], [facility] [address] [place] [address] 08/01/2025 2:00 PM EST Clinical Support [facility] [address] [place] [address] Kira Bansal RN 10/04/2025 2:00 PM EST Office Visit [facility] [address] [place] [address] Akila Elizabeth, OD [address] [place] [address] Health Maintenance Due Date Last Done Comments [...] Vaccine (#1) 2025 08/25/2013 Diabetes: Hemoglobin A1C 09/20/2025 025, 05/22/2025, 01/01/2025, Additional history exists Lipid Panel 09/25/2025 09/25/2024, [...] METABOLIC PANEL Routine 06/20/2025 11:55 AM EDT XR FOOT 3+ VIEWS LEFT Routine 05/22/2025 1:30 PM EDT Pain of both heels XR FOOT 3+ VIEWS RIGHT Routine 05/22/2025 1:30 PM EDT Pain of both heels POCT GLYCATED HEMOGLOBIN, TOTAL Routine 05/22/2025 1:01 PM EDT Type 2 diabetes mellitus without complication, with long-term current use of insulin ([facility]) POCT GLUCOSE Routine 05/22/2025 12:59 PM EDT Type 2 diabetes mellitus without complication, with long-term current use of insulin ([facility]) POCT INFLUENZA B (ID NOW RAPID MOLECULAR) [...] EDT Long-term current use of opiate analgesic ALBUMIN, RANDOM URINE W/CREATININE Routine 02/26/2025 11:31 [...] to Health Maintenance Results * Hemoglobin A1c (06/20/2025 11:55 AM EDT) Hemoglobin A1c 5.6 <6.0 % [facility] Comment:Hemoglobin A1C Refer ence Range Adults: 4.8 - 6.0 % Non diabetic: < 6.0 % Goal: < 7.0 %Additional Action Suggested: > 8.0 %Note: Hemoglobin A1c results are invalid for patients with abnormal amounts of HbF. Blood transfusions may impact the HbA1c concentration in the patient sample. Estimated Average Glucose 114 mg/dL [facility] Comment:eAG = Estimated ave rage glucose which is %A1C expressed asaverage glucose, using the formula of the U6B-UxsvppcMphiltq Glucose study (ADAG), Diabetes Care, Vol.31,#8,2007 06/20/2025 11:5 5 AM EDT 06/20/2025 1:13 PM EDT us Generic External Data Provider LAB BLOOD ORDERAB LES Final Result [facility] [address] [place] [address] [phone] * (ABNORMAL) Comprehensive Metabolic Panel (06/20/2025 11:55 AM EDT) Sodium 144 135 - 145 mmol/L [facility] Potassium 3.7 3.3 - 5.1 mmol/L [facility] Chloride 112(H) 96 - 108 mmol/L [facility] Carbon Dioxide 24 22 - 29 mmol/L [facility] Anion Gap 12 12 - 20 [facility] Urea Nitrogen (BUN) 14 9 - 16 mg/dL [facility] Creatinine, Serum 0.67 0.5 - 1.4 mg/dL [facility] Estimated Glomerular Filt Rate >60 [facility] Comment:Chronic Kidney Disea se: Estimated GFR < 60 mL/min/1.91z8Wxhmjw Kidney Disease: Estimated GFR < 15 mL/min/1.73m2 Glucose 127(H) 60 - 115 mg/dL [facility] Calcium 9.1 8.4 - 10.2 mg/dL [facility] Bilirubin, Total 0.4 0.0 - 1.0 mg/dL [facility] Aspartate Amino Transferase 28 5 - 31 U/L [facility] Alanine Aminotransferase 19 0 - 31 U/L [facility] Total Protein 7.5 6.5 - 8.0 g/dL [facility] Albumin Level 4.4 3.5 - 5.0 g/dL [facility] Alkaline Phosphatase 125(H) 39 - 117 U/L [facility] 06/20/2025 11:5 5 AM EDT 06/20/2025 1:13 PM EDT us Generic External Data Provider LAB BLOOD ORDERAB LES Final Result [facility] [address] [place] [phone] * XR Foot 3+ Views Right (05/22/2025 1:30 PM EDT) Anatomical Region Laterality Modality Lower Extremities, Foot Right Radiogra phic Imaging 05/22/2025 1:30 PM EDT Narrative 05/22/2025 1:43 PM EDT [facility] [address] [place] [address] XRay Report Signed Patient: Sacha Contreras MR#: [id number] : 1980 Acct:[id number] Age/Sex: 44 / F ADM Date: 05/22/25 [facility]: Cheryl Galan DO Ordering Physician: Cheryl Galan DO Date of Service: 05/22/25 Procedure(s): XR foot RT min 3V Accession Number(s): [id number] cc: Cheryl Galan DO Reason for Exam: [...] 05/22/25 1341 DD/ 1330 TD/TT: 05/22/25 1334 Selling Underwriter: Procedure Note Donotuseinterpreter, Image - 05/22/2025 [facility] [address] [place] [address] XRay Report Signed Patient: Xavier ContrerasR#: [id number] : 1980Acct:[id number] Age/Sex: 44 / FADM Date: 05/22/25 Loc: HO.[facility]HCX Attending Dr: Cheryl Galan DO Ordering Physician: Cheryl Galan DO Date of Service: 05/22/25 Procedure(s): XR foot RT min 3V Accession Number(s): [id number] cc: Cheryl Galan DO Reason for Exam: [...] 05/22/25 1341 DD/ 1330 TD/TT: 05/22/25 1334 Selling Underwriter: Cheryl Galan DO IMG XR PROCEDURES Final Resu lt * XR Foot 3+ Views Left (05/22/2025 1:30 PM EDT) Anatomical Region Laterality Modality Lower Extremities, Foot Left Radiogra phic Imaging 05/22/2025 1:30 PM EDT Narrative 05/22/2025 1:42 PM EDT [facility] [address] [place] [address] XRay Report Signed Patient: Sacha Contreras MR#: [id number] : 1980 Acct:[id number] Age/Sex: 44 / F ADM Date: 05/22/25 Loc: [facility] Attending Dr: Cheryl Galan DO Ordering Physician: Cheryl Galan DO Date of Service: 05/22/25 Procedure(s): XR foot LT min 3V Accession Number(s): [id number] cc: Cheryl Galan DO Reason for Exam: [...] 05/22/25 1340 DD/ 1330 TD/TT: 05/22/25 1334 Selling Underwriter: Procedure Note Donotuseinterpreter, Image - 05/22/[address] [address] XRay Report Signed Patient: Lai Contreras#: [id number] : 1980Acct:[id number] Age/Sex: 44 / FADM Date: 05/22/25 Loc: [facility] Attending Dr: Cheryl Galan DO Ordering Physician: Cheryl Galan DO Date of Service: 05/22/25 Procedure(s): XR foot LT min 3V Accession Number(s): [id number] cc: Cheryl Galan DO Reason for Exam: [...] 05/22/25 1340 DD/ 1330 TD/TT: 05/22/25 1334 Selling Underwriter: Cheryl Galna DO IMG XR PROCEDURES Final Resu lt * (ABNORMAL) POCT Hgb A1c (05/22/2025 1:01 PM EDT) Pathologist [facility] Hemoglobin A1C 6.1(A) 4.0 - 5.7 % [employer] Lot # [id number] Lot# Expiration Date Blood 05/22/2025 1:01 PM EDT Cheryl Adama DO POINT OF CARE TEST ENTER/SANCHO T ORDERABLES Final Result * POCT Glucose (05/22/2025 12:59 PM EDT) Pathologist [facility] Glucose Blood, POC 107 60 - 200 mg/dL [employer] Lot # [id number] Lot# Expiration Date 395 Blood Capillary blood specimen / Unknown 05/22/2025 12:59 PM EDT Cheryl Galan DO POINT OF CARE TEST ENTER/SANCHO T ORDERABLES Final Result * POCT Rapid Influenza B BALL ID NOW (05/07/2025 2:59 PM EDT) Influenza B Negative Negative, Indeterminate [facility] QC Media Lot # [id number] [facility] Lot# Expiration Date 42 [facility] Swab 05/07/2025 2:59 PM EDT us Tony Haywood MD POINT OF CARE TEST ENTER/EDIT OR DERABLES Final Result Performing Organization Address [facility] Co de Phone Number [facility] [address] [place] [phone] * POCT Rapid Influenza A BALL ID NOW (05/07/2025 2:59 PM EDT) Influenza A Negative Negative, Indeterminate [facility] QC Media Lot # [id number] [facility] Lot# Expiration Date [facility] Swab 05/07/2025 2:59 PM EDT Result [facility] Tony Haywood MD POINT OF CARE TEST ENTER/EDIT OR DERABLES Final Result Performing Organization Address [facility] Co de Phone Number [facility] [address] [place] [phone] * POCT Rapid Covid-19 BinaxNOW (05/07/2025 2:58 PM EDT) [facility] Rapid COVID Ag Negative QC Media Lot # [id number] Lot# Expiration Date 8,326 Swab 05/07/2025 2:58 PM EDT Result [facility] Tony Haywood MD POINT OF CARE TEST ENTER/EDIT OR DERABLES Final Result * POCT Rapid Strep A BALL ID NOW (05/07/2025 2:57 PM EDT) [facility] Rapid Strep A Screen Negative Negative, None Detected QC Media Lot # [id number] Lot# Expiration Date 027 Swab 05/07/2025 2:57 PM EDT Result [facility] Tony Haywood MD POINT OF CARE TEST ENTER/EDIT OR DERABLES Final Result * POCT CASSI-14 Urine Drug Screen (04/30/2025 12:21 PM EDT) THC Negative Negative Cocaine Screen, Urine Negative [...] - 04/30/2025 12:21 PM EDT [employer] Lot#[id number] Exp. 05/29/26 Internal Pass Control [facility] POINT OF CARE TEST ENTER/EDIT ORDERABLES Final Result * Albumin, Random Urine W/Creatinine (02/26/2025 11:31 AM EDT) Creatinine, Urine 186.00 mg/dL [facility] Microalbumin Urine 39.0 mg/L [facility] Microalbum Creatinine Ratio Ur 20.9 <30 ug/mg cr [facility] Comment:Albumin/Creatinine R atio Reference Ranges: Normal: < 30 ug/mg creatinine Microalbuminuria: 30 - 300 ug/mg creatinineClinical Albuminuria: > 300 ug/mg creatinine Urine 02/26/2025 11:3 1 AM EDT 02/26/2025 1:48 PM EDT [facility] LAB URINE ORDERABLES Final Re sult [facility] [address] [place] [phone] * HIV-1/2 Antigen and Antibodies, Fourth Generation, with Reflexes (10/23/2024 2:05 PM EST) Pathologist [facility] HIV AB/AG Nonreactive Nonreactive [facility] Comment:HIV-1 p24 Ag and/or HIV-1/HIV-2 Ab not detected.A test result that is nonreactive does not exclude thepossibility of exposure to or infection with HIV-1 and/orHIV-2. Nonreactive results in this assay for individualswith prior exposure to HIV-1 and/or HIV-2 may be due toantigen and antibody levels that are below the limit ofdetection of this assay.The [employer] HIV Ag/Ab Combo assay result andsupplemental assay results should be interpreted inconjunction with the patient's clinical presentation,history and other laboratory results. If the results areinconsistent with clinical evidence, additional testing issuggested to confirm the result. Blood Venous blood specimen / Unknown 10/23/2024 2:05 PM EST 10/23/2024 4:20 PM EST [facility] LAB BLOOD ORDERABLES Final Re sult [facility] [address] [place] [phone] * (ABNORMAL) Lipid Panel, Standard (09/25/2024 1:22 PM EST) Triglycerides 109 <150 mg/dL [facility] Comment:Desirable Triglyceri de: less than 150 mg/dLBorderline High Triglyceride 150-199 mg/dLHigh Triglyceride: 200-499 mg/dLVery High Triglyceride: greater than or equal to 5OO mg/dL Cholesterol 128 <200 mg/dL [facility] Comment:Desirable Cholestero l: less than 200 mg/dLBorderline High Cholesterol: 200-239 mg/dLHigh Cholesterol: greater than 239 mg/dL LDL Cholesterol Calculated 71 <100 mg/dL [facility] Comment:Desirable LDL: less than 100 mg/dLNear Optimal/Above Optimal LDL: 110- 129 mg/dLBorderline High LDL: 130-159 mg/dLHigh LDL: 160-189 mg/dLVery High LDL: greater than or equal to 190 mg/dL HDL Cholesterol 36(L) >40 mg/dL [facility] Comment:Desirable HDL: great er than 40 mg/dL Note: This HDL assay may give artificially low results in patients with liver disease. 09/25/2024 1:22 PM EST 09/25/2024 4:00 PM EST us Generic External Data Provider LAB BLOOD ORDERAB LES Final Result Performing Organization Address City/State/[facility] Co de Phone Number [facility] [address] [place] [phone] * BI Mammogram Screening Tomosynthesis Bilateral (11/16/2023 1:25 PM EDT) Anatomical Region Laterality Modality Breast Bilateral Mammography 11/16/2023 1:25 PM EDT Narrative 12/02/2023 6:15 AM EDT [address] [place] [address] Mammography Report Signed Patient: Sacha Contreras MR#: [id number] : 1980 Acct:[id number] Age/Sex: 42 / F ADM Date: 11/16/23 Loc: HO.MAMMO Attending Dr: Radha Shah NP Ordering Physician: Radha Shah NP Results: 1Negativ e Date of Service: 11/16/23 Follow Up: 1 Year From [facility] Mammogram Procedure(s): MM tomosynthesis screening BI Accession Number(s): [id number] cc: Radha Shah NP EXAMINATION: MM SCREENING [...] in OV> 12/02/23 0611 DD/ 1325 TD/TT: Selling Underwriter: Procedure Note Donotuseinterpreter, Image - [facility]/02/20[facility] [address] [place], [place] [address] Mammography Report Signed Patient: Xavier ContrerasR#: [id number] : 1980Acct:[id number] Age/Sex: 42 / FADM Date: 11/16/23 Loc: MERYL Attending Dr: Radha Shah HARDWARE ENGINEERING MANAGER Ordering Physician: Radha Shah NPResults: 1Negativ e Date of Service: 11/16/23Follow Up: 1 Year From Orig inal Mammogram Procedure(s): MM tomosynthesis screening BI Accession Number(s): [id number] cc: Radha Shah NP EXAMINATION: MM SCREENING [...] in OV> 12/02/23 0611 DD/ 1325 TD/TT: Selling Underwriter: Radha Shah [facility] IMG BI PROCEDURES Final Result * (ABNORMAL) Hepatitis Panel, General (02/22/2023 1:46 PM EDT) Hepatitis A Antibody Total REACTIVE( A) NON-REACT TAWNYA [facility] [employer] Comment: For additional information, please refer to http://[email or web address]/faq/EOG845 (This link is being provided for informational/ educational purposes only.) Hepatitis B Surface Antibody QL REACTIVE( A) NON-REACT [facility] [employer] Hepatitis B Surface Ag NON-REACT TAWNY[facility] [place] [employer] Comment: For additional information, please refer to http://Zonoff/faq/TGT073 (This link is being provided for informational/ educational purposes only.) Hepatitis B Core Antibody Total NON-REACT TAWNYA NON-REACT TAWNYA [facility] [employer] Comment: For additional information, please refer to http://Zonoff/faq/BSV178 (This link is being provided for informational/ educational purposes only.) Hepatitis C Antibody NON-REACT TAWNYA NON-REACT TAWNYA [facility] [employer] Comment: HCV antibody was non-reactive. There is no laboratory evidence of HCV infection. In most cases, no further action is required. However, if recent HCV exposure is suspected, a test for HCV RNA (test code 09869) is suggested. For additional information please refer to http://Zonoff/faq/NRH16h5 (This link is being provided for informational/ educational purposes only.) 02/22/2023 1:46 PM EDT 02/22/2023 1:46 PM EDT Narrative [facility] - 02/26/2023 7:51 PM EDT FASTING:NO FASTING: NO Marc Nicolas AGNJeri LAB BLOOD ORDERABLES Final Res ult [facility] [address] [facility], [place] [address] [facility] [address] [place] [address] from Last 3 Months or Most Recently Relevant to Health Maintenance Insurance [facility] C3 DENTAL-[facility] MEDICAID STAND ADULT Care Teams Boatswains Mate Relationship Specialty Start Date End Date Yecenia Frias FNP [address] [place] [phone] PCP - General Family Medicine 04/26/24 Colby Hirsch FNP Nurse Practitioner Family Medicine 07/13/23 Candice Ugarte Slip PresserTobacco Curer 12/27/23
--- OUTSIDE RECORDS SUMMARY | 2025-06-20 15:13 | XMS_ITS | Encounter Summary ---
Author Organization [employer] Address [address] [place] [address] Care Team Providers Care Food Safety Officer Name Role Phone Marc Nicolas Primary Care Provider Unavail able Radha Shah RIPRAP WORKER Primary Care Provider [phone] Colby Hirsch Unavailable Unavailable [facility] RIPRAP WORKER Primary Care Provider Reason for Visit * Reason Onset Date Comments Referral 01/26/2023 Encounter Details Date Type Department Care Team (Late st Contact Info) Description 01/26/2023 Telephone [facility] [address] [place] [address] Marc Nicolas AGNP Referral Social History Tobacco [...] Description 07/04/2025 2:00 PM EST Office Visit [facility] [address] [place] [address] Yecenia Frias FNP [address] [place] [address] 08/01/2025 2:00 PM EST Clinical Support [facility] [address] [place] [address] Kira Bansal RN 10/04/2025 2:00 PM EST Office Visit [facility] [address] [place] [address] Akila Elizabeth, OD [address] [place] [address] documented as of this encounter Visit Diagnoses Not on filedocumented in this encounter Additional Health Concerns Assessment Noted Time PHQ-9 Depression Total Score: 19 023 3:57 PM EDT documented as of this encounter Care Teams Food Safety Officer Relationship Specialty Start Date End Date Marc Nicolas AGNP PCP - General Family Medicine 10/22/22 04/20/23 Radha Shah FNP [address] [place] [phone] PCP - General Family Medicine 04/21/23 04/25/24 Yecenia Frias FNP [address] [place] [address] PCP - General Family Medicine 04/26/24 Colby Hirsch FNP [address] [place] [phone] Nurse Practitioner Family Medicine 07/13/23 Candice Ugarte Property AppraiserSalesperson [employer] 12/27/23 documented as of this encounter
--- OUTSIDE RECORDS SUMMARY | 2025-06-20 15:14 | XMS_ITS | Encounter Summary ---
Author Organization [employer] Address [address] [facility] 7t [place] [address] Care Team Providers Care Sales Apprentice Name Role Phone Colby Hirsch CLINICAL MASSAGE THERAPIST Unavailable Unavailable [facility] Primary Care Provider [phone] Reason for Visit * Reason Comments Med Refill Encounter Details Date Type Department Care Team (Late st Contact Info) Description 03/12/2025 Refill [facility] [address] [place] [address] Radha Shah FNP [address] [place] [address] Social History Tobacco Use Types Packs/Day Years [...] EST Office Visit [facility] [address] [place] [address] Yecenia Frias FNP 230 [place] [address] 08/01/2025 2:00 PM EST Clinical Support [facility] [address] [place] [address] Kira Bansal RN 10/04/2025 2:00 PM EST Office Visit [facility] [address] [place] [address] Akila Elizabeth, OD 230 [place] [address] documented as of this encounter Visit Diagnoses Not on filedocumented in this encounter Additional Health Concerns Assessment Noted Time PHQ-9 Depression Total Score: 0 02/27/20 25 10:29 AM EDT documented as of this encounter Care Teams Sales Apprentice Relationship Specialty Start Date End Date Yecenia Frias FNP [address] [place] [address] PCP - General Family Medicine 04/26/24 Colby Hirsch FNP Nurse Practitioner Family Medicine 07/13/23 Candice Ugarte Clinical Dental TechnicianGenerator Assembler 12/27/23 documented as of this encounter
--- OUTSIDE RECORDS SUMMARY | 2025-06-20 15:14 | XMS_ITS | Patient Health Record ---
Author Organization [facility] Address [address] [place] [address] Care Team Providers Care Cutter Aluminum Sheet Name Role Phone Radha Rodriguez Primary Care Provider Jaylan Clancy Unavailable [phone] Allergies Allergen (clinical drug ingredient) Drug/Non Drug [...] minutes AC TID for abdominal cramps and diarrhea; Duration: 30 day(s) 12/29/2019 Active Baclofen as directed Active Trulicity 0.75 MG/0.5ML as directed Subcutaneous once a week Active Senna 8.6 MG as directed Orally a s directed Active Pantoprazole Sodium 40 MG 1 tablet Orall y Once a day; Duration: 30 day(s) 11/18/2020 Active metFORMIN HCl ER 500 MG 1 tablet with ev ening meal Orally twice a day Active Pantoprazole Sodium 40 MG 1 tablet Orall y Once a day; Duration: 30 day(s) 05/06/2020 Active DOK 1 capsule as needed Orally Once a day Active Pantoprazole Sodium 40 MG 1 tablet Orall y Once a day 02/03/2018 Active Acetaminophen 325 MG TAKE 2 TABLETS BY M OUTH EVERY 6 HOURS NEEDED Oral; Duration: 12 Active Zoloft 50 MG 1 tablet Orally Once a day Active Amitriptyline HCl as directed Orally O nce a day Active Topamax 1 tablet Orally Once a day Active Ibuprofen Not-Taking busPIRone HCl 10 MG TAKE 1 TABLET BY ZENA TH THREE TIMES DAILY Oral; Duration: 30 Active Vitamin A 29511 UNIT TAKE 1 CAPSULE BY M OUTH EVERY DAY Oral; Duration: 30 Active Pantoprazole Sodium 40 MG 1 tablet Orall y Once a day; Duration: 30 day(s) 05/30/2022 Active Pantoprazole Sodium 40 MG 1 tablet Orall y Once a day; Duration: 30 day(s) 05/26/2023 Active Pantoprazole Sodium 40 MG 1 tablet Orall y Once a day; Duration: 30 day(s) 05/25/2022 Active Immunizations Vaccine Route Administration Date Status Comme nts Influenza Unknown 12/29/2019 Refused Problems Problem Type SNOMED Code ICD Code Onset Dates Problem Status W/U Status Risk Notes Problem Epigastric pain (75334301) Epigastric abdominal pain (R10.13) Active confirmed Problem Irritable bowel syndrome with diarrhea (817339265) Irritable bowel syndrome with diarrhea (K58.0) Active confirmed Problem Elevated liver enzymes level (110423970) Elevated liver function tests (R79.89) Active confirmed Problem Fatty liver (819676464) Fatty liver (K76.0) Active confirmed Problem Gastroesophageal reflux disease (308455419) Gastroesophageal reflux disease, esophagitis presence not specified (K21.9) Active confirmed Problem Right upper quadrant pain (479118184) Abdominal pain, right upper quadrant (R10.11) Active confirmed Plan Of Treatment Pending Test Test Name Order Date BUN 12/29/2019 CREATININE 12/29/2019 LIVER PROFILE 02/04/2020 LIVER PROFILE 04/09/2020 LIVER PROFILE 12/29/2019 CBC w DIFF 12/29/2019 PROTHROMBIN TIME (PT, INR) 12/29/2019 [id number] (A1A) 12/29/2019 CAROTENE 12/29/2019 CERULOPLASMIN 12/29/2019 MITOCHONDRIAL [...] Start Date Coverage End Date MEDICAID OF [employer] [address] [place] CRU[place] [id number] HARMAN LEUNG Self - patient is the insured Medical (General) History Medical History History ICD Code Asthma Denies DE,CVA,renal disease Migraines Anxiety, depression, bipolar disease NIDDM [...]
--- OUTSIDE RECORDS SUMMARY | 2025-06-20 15:14 | XMS_ITS | Encounter Summary ---
Author Organization [employer] Address [address] [facility] 7t [place] [address] Care Team Providers Care Sales Technician Name Role Phone Marc Nicolas Primary Care Provider Unavail able Radha Shah Primary Care Provider +9 Colby Hirsch Unavailable Unavailable [facility] Primary Care Provider [phone] Reason for Visit * Reason Comments Med Refill Encounter Details Date Type Department Care Team (Late st Contact Info) Description 04/08/2023 Refill [facility] [address] [place], [place] [phone] Marc Nicolas AGNP Schizoaffective disorder, depressive type [...] Description 07/04/2025 2:00 PM EST Office Visit [facility] [address] [place], [place] [phone] [facility] 230 [place] [address] 08/01/2025 2:00 PM EST Clinical Support [facility] [address] [place] [address] Kira Bansal, RN 10/04/2025 2:00 PM EST Office Visit [facility] [address] [place] [address] Akila Elizabeth, OD 230 [place] [address] documented as of this encounter Visit Diagnoses Diagnosis Schizoaffective disorder, depressive type (CMS/HCC) (HCC) Schizoaffective disorder, unspecified condition Mixed anxiety and depressive disorder Dysthymic disorder documented in this encounter Additional Health Concerns Assessment Noted Time PHQ-9 Depression Total Score: 0 04/02/20 2:10 PM EDT documented as of this encounter Care Teams Sales Technician Relationship Specialty Start Date End Date Marc Nicolas AGNP PCP - General Family Medicine 10/22/22 04/20/23 Radha Shah FNP [address] [place] [address] PCP - General Family Medicine 04/21/23 04/25/24 CantrilYecenia FNP [address] [place] [address] PCP - General Family Medicine 04/26/24 Colby Hirsch FNP [address] [place] [address] Nurse Practitioner Family Medicine 07/13/23 Candice Ugarte Director Of Community ServicesSwitch Adjuster 12/27/23 documented as of this encounter
--- OUTSIDE RECORDS SUMMARY | 2025-06-20 15:14 | XMS_ITS | Encounter Summary ---
Author Organization [employer] Address 75 [facility] 7t [place] [address] Care Team Providers Care Mediation Commissioner Name Role Phone Radha Shah TABLET REPAIR Primary Care Provider +9 Colby Hirsch Unavailable Unavailable [facility] Primary Care Provider [phone] Reason for Visit * Reason Comments Med Refill Encounter Details Date Type Department Care Team (Late st Contact Info) Description 07/02/2023 Refill [facility] [address] [place] [address] Radha Shah FNP [address] [place] [address] Multiple joint pain Social History Tobacco Use [...] Office Visit [facility] [address] [place] [address] Yecenia Frias FNP [address] [place] [address] 08/01/2025 2:00 PM EST Clinical Support [facility] [address] [place] [address] Kira Bansal RN 10/04/2025 2:00 PM EST Office Visit [facility] [address] [place] [address] Glenn, Akila, OD [address] [place] [address] documented as of this encounter Visit Diagnoses Diagnosis Multiple joint pain Pain in joint, multiple sites documented in this encounter Additional Health Concerns Assessment Noted Time PHQ-9 Depression Total Score: 6 06/15/20 23 10:23 AM EDT documented as of this encounter Care Teams Mediation Commissioner Relationship Specialty Start Date End Date Radha Shah FNP [address] [place] [address] PCP - General Family Medicine 04/21/23 04/25/24 Yecenia Frias FNP [address] [place] [address] PCP - General Family Medicine 04/26/24 Colby Hirsch FNP [address] [place] [address] Nurse Practitioner Family Medicine 07/13/23 Candice Ugarte Lpn Per DiemReproduction Artist 12/27/23 documented as of this encounter
--- OUTSIDE RECORDS SUMMARY | 2025-06-20 15:14 | XMS_ITS | Encounter Summary ---
Author Organization [employer] Address [address] [facility] 7t [place] [address] Care Team Providers Care Covered Buckle Assembler Name Role Phone Radha Shah PLANNING TECHNICIAN Primary Care Provider +1 Colby Hirsch Unavailable Unavailable [facility] Primary Care Provider [phone] Reason for Visit * Reason Comments Med Refill Encounter Details Date Type Department Care Team (Late st Contact Info) Description 11/24/2023 Refill [facility] [address] [place] [address] Radha Shah FNP [address] [place] [address] Multiple joint pain Social History Tobacco Use [...] Description 07/04/2025 2:00 PM EST Office Visit [facility] [address] [place] [address] Yecenia Frias FNP [address] [place] [address] 08/01/2025 2:00 PM EST Clinical Support [facility] [address] [place] [address] Kira Bansal RN 10/04/2025 2:00 PM EST Office Visit [facility] [address] [place] [address] Akila Elizabeth, OD [address] [place] [address] documented as of this encounter Visit Diagnoses Diagnosis Multiple joint pain Pain in joint, multiple sites documented in this encounter Additional Health Concerns Assessment Noted Time PHQ-9 Depression Total Score: 8 09/02/19 24 11:12 AM EST documented as of this encounter Care Teams Covered Buckle Assembler Relationship Specialty Start Date End Date Radha Shah FNP [address] [place] [address] PCP - General Family Medicine 04/21/23 04/25/24 Yecenia Frias FNP [address] [place] [address] PCP - General Family Medicine 04/26/24 Colby Hirsch FNP [address] [place] [address] Nurse Practitioner Family Medicine 07/13/23 Candice Ugarte Sole SplitterCredit Union Field Examiner 12/27/23 documented as of this encounter
--- OUTSIDE RECORDS SUMMARY | 2025-06-20 15:14 | XMS_ITS | Encounter Summary ---
Author Organization [employer] Address [address] [facility] 7t [place] [address] Care Team Providers Care Bottle Capping Machine Operator Name Role Phone Marc Nicolas Primary Care Provider Unavail able Radha Shah Primary Care Provider +5 Colby Hirsch Unavailable Unavailable [facility] Primary Care Provider [phone] Reason for Visit * Reason Comments Med Refill Encounter Details Date Type Department Care Team (Late Contact Info) Description 04/08/2023 Refill [facility] [address] [place] [address] Marc Nicolas AGNP Mixed anxiety and depressive [...] Description 07/04/2025 2:00 PM EST Office Visit [facility] [address] [place], [place] [phone] [facility] 230 [place], [place] [phone] 08/01/2025 2:00 PM EST Clinical Support [facility] [address] [place] [address] Kira Bansal RN 10/04/2025 2:00 PM EST Office Visit [facility] [address] [place] [address] Glenn, Megan, OD 230 [place] [address] documented as of this encounter Visit Diagnoses Diagnosis Mixed anxiety and depressive disorder Dysthymic disorder documented in this encounter Additional Health Concerns Assessment Noted Time PHQ-9 Depression Total Score: 0 04/02/20 2:10 PM EDT documented as of this encounter Care Teams Bottle Capping Machine Operator Relationship Specialty Start Date End Date Marc Nicolas AGNP PCP - General Family Medicine 10/22/22 04/20/23 Radha Shah FNP [address] [place] [address] PCP - General Family Medicine 04/21/23 04/25/24 [place] FNP [address] [place] [address] PCP - General Family Medicine 04/26/24 Colby Hirsch FNP [address] [place] [address] Nurse Practitioner Family Medicine 07/13/23 Candice Ugarte Brake Operator Sheet MetalSimulation Analyst 12/27/23 documented as of this encounter
--- OUTSIDE RECORDS SUMMARY | 2025-06-20 15:14 | XMS_ITS | Encounter Summary ---
Author Organization [employer] Address 75 [facility] 7t [place] [address] Care Team Providers Care Room Service Food Service Attendant Name Role Phone Radha Shah TAR MAN Primary Care Provider +5 Colby Hirsch Unavailable Unavailable [facility] Primary Care Provider [phone] Reason for Visit * Reason Comments Med Refill Encounter Details Date Type Department Care Team (Late st Contact Info) Description 04/12/2024 Refill [facility] [address] [place] [address] Radha Shah FNP [address] [place] [address] Multiple joint pain Social History Tobacco Use [...] Description 07/04/2025 2:00 PM EST Office Visit [facility] [address] [place] [address] [place]ecenia FNP 230 [place] [address] 08/01/2025 2:00 PM EST Clinical Support [facility] [address] [place], [place] [phone] Kira Bansal, MEREDITH 10/04/2025 2:00 PM EST Office Visit [facility] [address] [place], [place] [phone] Akila Elizabeth, OD [address] [place] [address] documented as of this encounter Visit Diagnoses Diagnosis Multiple joint pain Pain in joint, multiple sites documented in this encounter Additional Health Concerns Assessment Noted Time PHQ-9 Depression Total Score: 7 03/07/20 24 10:13 AM EDT documented as of this encounter Care Teams Room Service Food Service Attendant Relationship Specialty Start Date End Date [place] [address] PCP - General Family Medicine 04/21/23 04/25/24 [place] FNP [address] [place], [place] PCP - General Family Medicine 04/26/24 Colby Hirsch FNP [address] [place] [address] Nurse Practitioner Family Medicine 07/13/23 Candice Ugarte VideographerGuide Setter 12/27/23 documented as of this encounter
--- OUTSIDE RECORDS SUMMARY | 2025-06-20 15:14 | XMS_ITS | Encounter Summary ---
Author Organization [employer] Address 75 [facility] 7t [place] [address] Care Team Providers Care Lpta Name Role Phone Marc Nicolas Primary Care Provider Unavail able Radha Shah Primary Care Provider [phone] Colby Hirsch Unavailable Unavailable [facility] AUTO PARTS SALESPERSON Primary Care Provider [phone] Reason for Visit * Reason Onset Date Comments Med Refill 04/09/2023 Encounter Details Date Type Department Care Team (Late st Contact Info) Description 04/09/2023 Refill [facility] 230 [place] [address] Marc Nicolas AGNP Mixed anxiety and depressive [...] listed in EHR, no record. Spoke with [facility] pharmacy, she is listed as [...] PCP on 04/13/23. * Telephone Encounter - Rmoeo Child - 04/09/2023 12:13 PM EDT Tc from pt requesting medx refill on clonazePAM (KlonoPIN) 0.5 MG tablet Please sent to [facility] - [place], [place] - 230 [facility] documented in this encounter Plan of Treatment Upcoming Encounters Date Type Department Care Team (Late st Contact Info) Description 07/04/2025 2:00 PM EST Office Visit [facility] [address] [place] [address] Yecenia Frias FNP [address] [place] [address] 08/01/2025 2:00 PM EST Clinical Support [facility] [address] [place] [address] Kira Bansal RN 10/04/2025 2:00 PM EST Office Visit [facility] [address] [place] [address] Akila Elizabeth, LAY 230 [place] [address] documented as of this encounter Visit Diagnoses Diagnosis Mixed anxiety and depressive disorder Dysthymic disorder documented in this encounter Additional Health Concerns Assessment Noted Time PHQ-9 Depression Total Score: 0 04/02/20 23 2:10 PM EDT documented as of this encounter Care Teams Lpta Relationship Specialty Start Date End Date Marc Nicolas AGNP PCP - General Family Medicine 10/22/22 04/20/23 Radha Shah FNP [address] [place] [address] PCP - General Family Medicine 04/21/23 04/25/24 [place] FNP [address] [place] [address] PCP - General Family Medicine 04/26/24 Colby Hirsch FNP [address] [place] [address] Nurse Practitioner Family Medicine 07/13/23 Candice Ugarte Video Production InternSki Patrol 12/27/23 documented as of this encounter
--- OUTSIDE RECORDS SUMMARY | 2025-06-20 15:14 | XMS_ITS | Encounter Summary ---
Author Organization [employer] Address 75 [facility] 7t [place] [address] Care Team Providers Care Blown Film Extrusion Operator Name Role Phone Radha Shah WEB ANALYST Primary Care Provider +3 Colby Hirsch Unavailable Unavailable [facility] WEB ANALYST Primary Care Provider Reason for Visit * Reason Onset Date Comments telephone call 10/29/2023 Encounter Details Date Type Department Care Team (Late st Contact Info) Description 10/29/2023 Refill [facility] [address] [place] [address] Radha Shah FNP [address] [place] [address] Multiple joint pain Social History Tobacco Use [...] does not remember the program name. A staff nurse icu resource team from the program told her that if she still want to be in the program she needs a referral from PCP. Please call patient with any concern or questions. * Telephone Encounter - Celine Pate - 11/12/2023 9:46 AM EDT Patient walked in requesting a referral for a program. Patient does not remember the program name. A staff nurse icu resource team from the program told her that if she still want to be in the program she needs a referral from PCP. Please call patient with any concern or questions. documented in this encounter Plan of Treatment Upcoming Encounters Date Type Department Care Team (Late st Contact Info) Description 07/04/2025 2:00 PM EST Office Visit [facility] [address] [place] [address] [place], [place], [facility] 230 [place] [address] 08/01/2025 2:00 PM EST Clinical Support [facility] [address] [place] [address] Kira Bansal, RN 10/04/2025 2:00 PM EST Office Visit [facility] [address] [place] [address] Akila Elizabeth, OD 230 [place] [address] documented as of this encounter Visit Diagnoses Diagnosis Multiple joint pain Pain in joint, multiple sites documented in this encounter Additional Health Concerns Assessment Noted Time PHQ-9 Depression Total Score: 8 09/02/19 11:12 AM EST documented as of this encounter Care Teams Blown Film Extrusion Operator Relationship Specialty Start Date End Date Radha Shah FNP [address] [place] [address] PCP - General Family Medicine 04/21/23 04/25/24 [place]ace[place] FNP [address] [place] [address] PCP - General Family Medicine 04/26/24 Colby Hirsch FNP [address] [place] [address] Nurse Practitioner Family Medicine 07/13/23 Candice Ugarte AcidizerAnnealer Helper 12/27/23 documented as of this encounter
--- OUTSIDE RECORDS SUMMARY | 2025-06-20 15:14 | XMS_ITS | Encounter Summary ---
Author Organization [employer] Address [address] [facility] [address]t [place] [address] Care Team Providers Care Shovel Log Loader Operator Name Role Phone Radha Shah Primary Care Provider +0 Colby Hirsch Unavailable Unavailable [facility] TEACHING DIETITIAN Primary Care Provider [phone] Encounter Details Date Type Department Care Team (Late st Contact Info) Description 10/29/2023 Orders Only [facility] [address] [place] [address] Radha Shah FNP [address] [place] [address] Social History Tobacco Use Types Packs/Day Years [...] Description 07/04/2025 2:00 PM EST Office Visit [facility] [address] [place] [address] Yecenia Frias FNP 230 [place] [address] 08/01/2025 2:00 PM EST Clinical Support [facility] [address] [place] [address] Kira Bansal RN 10/04/2025 2:00 PM EST Office Visit [facility] [address] [place] [address] Glenn, Akila, OD 230 [place] [address] documented as of this encounter Visit Diagnoses Not on filedocumented in this encounter Additional Health Concerns Assessment Noted Time PHQ-9 Depression Total Score: 8 09/02/19 24 11:12 AM EST documented as of this encounter Care Teams Shovel Log Loader Operator Relationship Specialty Start Date End Date Radha Shah FNP [address] [place] [address] PCP - General Family Medicine 04/21/23 04/25/24 Yecenia Frias FNP [address] [place] [address] PCP - General Family Medicine 04/26/24 Colby Hirsch FNP [address] [place] [address] Nurse Practitioner Family Medicine 07/13/23 Candice Ugarte Assistant Construction SuperintendentFiber Optics Engineer 12/27/23 documented as of this encounter
--- OUTSIDE RECORDS SUMMARY | 2025-06-20 15:14 | XMS_ITS | Encounter Summary ---
Author Organization [employer] Address [address] [facility] [address] [place] [address] Care Team Providers Care Electrical Controls Assembler Name Role Phone Radha Shah DIGITAL MARKETING ASSOCIATE Primary Care Provider +-2 Colby Hirsch DIGITAL MARKETING ASSOCIATE Unavailable Unavailable [facility] DIGITAL MARKETING ASSOCIATE Primary Care Provider [phone] Reason for Visit * Reason Comments Med Refill Encounter Details Date Type Department Care Team (Late st Contact Info) Description 06/04/2023 Refill [facility] [address] [place] [address] Marilee Buckner FNP Multiple joint pain; Mixed [...] Description 07/04/2025 2:00 PM EST Office Visit [facility] [address] [place] [address] Yecenia Frias FNP [address] [place] [address] 08/01/2025 2:00 PM EST Clinical Support [address] [address] Kira Bansal, RN 10/04/2025 2:00 PM EST Office Visit [facility] [address] [place] [address] Akila Elizabeth, OD 230 [place] [address] documented as of this encounter Visit Diagnoses Diagnosis Multiple joint pain Pain in joint, multiple sites Mixed anxiety and depressive disorder Dysthymic disorder documented in this encounter Additional Health Concerns Assessment Noted Time PHQ-9 Depression Total Score: 0 04/02/20 2:10 PM EDT documented as of this encounter Care Teams Electrical Controls Assembler Relationship Specialty Start Date End Date Radha Shah FNP [address] [place] [address] PCP - General Family Medicine 04/21/23 04/25/24 Yecenia Frias FNP 230 [place] [address] PCP - General Family Medicine 04/26/24 Colby Hirsch FNP [address] [place] [address] Nurse Practitioner Family Medicine 07/13/23 Candice Ugarte Paste Mixer LiquidAmbulatory Analyst 12/27/23 documented as of this encounter
--- OUTSIDE RECORDS SUMMARY | 2025-06-20 15:14 | XMS_ITS | Encounter Summary ---
Author Organization [employer] Address [address] [facility] 7t [place] [address] Care Team Providers Care Residential Sales Name Role Phone Colby Hirsch COMPLIANCE SPEC Unavailable Unavailable [facility] Primary Care Provider [phone] Reason for Visit * Reason Comments Med Refill Encounter Details Date Type Department Care Team ([facility] st Contact Info) Description 04/18/2025 Refill [facility] MEDICINE [address] [place] [address] [facility] [address] [place] [address] Arthralgia, unspecified joint Social History Tobacco Use [...] 2:00 PM EST Office Visit [facility] MEDICINE [address] [place] [address] Yecenia Frias FNP [address] [place] [address] 08/01/2025 2:00 PM EST Clinical Support [facility] MEDICINE [address] [place] [address] Kira Bansal RN 10/04/2025 2:00 PM EST Office Visit [facility] OPTOMETRY [address] [place] [address] Akila Elizabeth, OD [address] [place] [address] documented as of this encounter Visit Diagnoses Diagnosis Arthralgia, unspecified joint documented in this encounter Additional Health Concerns Assessment Noted Time PHQ-9 Depression Total Score: 0 02/27/20 25 10:29 AM EDT documented as of this encounter Care Teams Residential Sales Relationship Specialty Start Date End Date Yecenia Frias FNP [address] [place] [address] PCP - General Family Medicine 04/26/24 Colby Hirsch FNP Nurse Practitioner Family Medicine 07/13/23 Candice Ugarte Credit AdjusterSupervisor Assembly Department 12/27/23 documented as of this encounter
--- OUTSIDE RECORDS SUMMARY | 2025-06-20 15:14 | XMS_ITS | Encounter Summary ---
Author Organization [employer] Address [address] [facility] 7t [place] [address] Care Team Providers Care Studio Control Operator Name Role Phone Marc Nicolas Primary Care Provider Unavail able Radha Shah GRANT OFFICER Primary Care Provider [phone] Colby Hirsch Unavailable Unavailable [facility] GRANT OFFICER Primary Care Provider [phone] Reason for Visit * Reason Onset Date Comments Results 04/09/2023 Encounter Details Date Type Department Care Team (Late st Contact Info) Description 04/09/2023 Telephone [facility] MEDICINE [address] [place] [address] Marc Nicolas AGNP Results Social History Tobacco [...] AM EDT FYI T/C to pt. Through [email or web address] id - [id number] for below message. Pt. States she is having apt. With Dr. Sims on 05/03/2023 and wants to discuss on that day. Pt. Advised to give call back on [phone] if any questions or concerns. Pt. Verbally agreed and understood. Please review and advise if needed. * Telephone Encounter - Romeo Guido Child - 04/09/2023 12:19 PM EDT Tc from pt requesting status on results for Liver that were done a moth ago pt states. Please contact pt at [phone] Nigerien Speaker documented in this encounter Plan of Treatment Upcoming Encounters Date Type Department Care Team (Late st Contact Info) Description 07/04/2025 2:00 PM EST Office Visit [facility] MEDICINE [address] [place] [address] Yecenia Frias FNP [address] [place] [address] 08/01/2025 2:00 PM EST Clinical Support [facility] MEDICINE [address] [place] [address] Kira Bansal RN 10/04/2025 2:00 PM EST Office Visit [facility] OPTOMETRY [address] [place] [address] Akila Elizabeth, OD 230 [place] [address] documented as of this encounter Visit Diagnoses Not on filedocumented in this encounter Additional Health Concerns Assessment Noted Time PHQ-9 Depression Total Score: 0 04/02/20 23 2:10 PM EDT documented as of this encounter Care Teams Studio Control Operator Relationship Specialty Start Date End Date Marc Nicolas AGNP PCP - General Family Medicine 10/22/22 04/20/23 Radha Shah FNP [address] [place] [address] PCP - General Family Medicine 04/21/23 04/25/24 Little PlymouthYecenia whipple FNP [address] [place] [address] PCP - General Family Medicine 04/26/24 Colby Hirsch FNP [address] [place] [address] Nurse Practitioner Family Medicine 07/13/23 Candice Ugrate Magnetometer OperatorDean Of Graduate Studies 12/27/23 documented as of this encounter
--- OUTSIDE RECORDS SUMMARY | 2025-06-20 15:14 | XMS_ITS | Encounter Summary ---
Author Organization [email or web address] Address [address] [facility] 7t [place] [address] Care Team Providers Care Editor Dictionary Name Role Phone Colby Hirsch LAUNDRY OR DRY CLEANERS COUNTER CLERK Unavailable Unavailable [facility] Primary Care Provider [phone] Reason for Visit * Reason Comments Med Refill Encounter Details Date Type Department Care Team ([facility] st Contact Info) Description 06/17/2025 Refill [facility] MEDICINE [address] [place] [address] [facility] [address] [place] [address] Social History Tobacco Use Types Packs/Day Years [...] Telephone Encounter - Gladys Bertrand RN - 06/19/2025 1:18 PM EDT Incoming call from patient. Patient informed provider would like to check vitamin A level before sending supplement to the pharmacy. Patient reports she will complete BW tomorrow. Patient to f/u PRN. * Telephone Encounter - Gladys eBrtrand RN - 06/19/2025 12:28 PM EDT TC placed to patient [phone] in regards to below message. Patient did not answer, RN left requesting CB to red team nurses. TC placed to [phone] in regards to below message however number is OOS. Patient to f/u PRN. documented in this encounter Plan of Treatment Upcoming Encounters Date Type Department Care Team (Late st Contact Info) Description 07/04/2025 2:00 PM EST Office Visit [facility] MEDICINE [address] [place], [place] [phone] [place], [place], [facility] [address] [place], [place] [phone] 08/01/2025 2:00 PM EST Clinical Support [facility] MEDICINE [address] [place] [address] Kira Bansal, RN 10/04/2025 2:00 PM EST Office Visit [facility] OPTOMETRY [address] [place] [address] Akila Elizabeth, OD 230 [place] [address] documented as of this encounter Visit Diagnoses Not on filedocumented in this encounter Additional Health Concerns Assessment Noted Time PHQ-9 Depression Total Score: 10 025 1:53 PM EDT documented as of this encounter Care Teams Editor Dictionary Relationship Specialty Start Date End Date Yecenia Frias FNP [address] [place] [address] PCP - General Family Medicine 04/26/24 Colby Hirsch FNP Nurse Practitioner Family Medicine 07/13/23 Candice Ugarte Gas Torch SoldererImprovement Specialist 12/27/23 documented as of this encounter
--- OUTSIDE RECORDS SUMMARY | 2025-06-20 15:14 | XMS_ITS | Encounter Summary ---
Author Organization [employer] Address [address] [facility] [address] 7t [place] [address] Care Team Providers Care Senior Application Security Consultant Name Role Phone Radha Shah FORENSIC ARTIST Primary Care Provider + Colby Hirsch Unavailable Unavailable [facility] FORENSIC ARTIST Primary Care Provider [phone] Encounter Details Date Type Department Care Team (Late st Contact Info) Description 04/24/2024 Orders Only [facility] [address] [place] [address] Radha Shah FNP [address] [place] [address] Elevated lipids (Primary Dx) Social History Tobacco [...] EST Office Visit [facility] MEDICINE [address] [place] [address] [place], Yecenia, FORENSIC ARTIST [address] [place] [address] 08/01/2025 2:00 PM EST Clinical Support [facility] MEDICINE [address] [place] [address] Kira Bansal RN 10/04/2025 2:00 PM EST Office Visit [facility] OPTOMETRY [address] [place] [address] Akila Elizabeth, OD [address] [place] [address] documented as of this encounter Procedures Procedure Name Priority Date/Time Associated Diagnosis Comments LIPID PANEL, STANDARD Routine 05/12/2024 11:00 AM EDT Elevated lipids documented in this encounter Results * (ABNORMAL) Lipid Panel, Standard (05/12/2024 11:00 AM EDT) Triglycerides 100 <150 mg/dL [facility] Comment:Desirable Triglyceri de: less than 150 mg/dLBorderline High Triglyceride 150-199 mg/dLHigh Triglyceride: 200-499 mg/dLVery High Triglyceride: greater than or equal to 5OO mg/dL Cholesterol 101 <200 mg/dL [facility] Comment:Desirable Cholestero l: less than 200 mg/dLBorderline High Cholesterol: 200-239 mg/dLHigh Cholesterol: greater than 239 mg/dL LDL Cholesterol Calculated 44 <100 mg/dL [facility] Comment:Desirable LDL: less than 100 mg/dLNear Optimal/Above Optimal LDL: 110- 129 mg/dLBorderline High LDL: 130-159 mg/dLHigh LDL: 160-189 mg/dLVery High LDL: greater than or equal to 190 mg/dL HDL Cholesterol 37(L) >40 mg/dL [facility] Comment:Desirable HDL: great er than 40 mg/dL Note: This HDL assay may give artificially low results in patients with liver disease. Blood Venous blood specimen / Unknown 05/12/2024 11:00 AM EDT 05/12/2024 11:00 AM EDT us Radha CASEY LAB BLOOD ORDERABLES Final Resu lt [facility] [address] [place] [address] [phone] documented in this encounter Visit Diagnoses Diagnosis Elevated lipids- Primary documented in this encounter Additional Health Concerns Assessment Noted Time PHQ-9 Depression Total Score: 7 03/07/20 24 10:13 AM EDT documented as of this encounter Care Teams Senior Application Security Consultant Relationship Specialty Start Date End Date Radha Shah FNP [address] [place] [address] PCP - General Family Medicine 04/21/23 04/25/24 Yecenia Frias FNP [address] [place] [address] PCP - General Family Medicine 04/26/24 Colby Hirsch FNP [address] [place] [address] Nurse Practitioner Family Medicine 07/13/23 Candice Ugarte Electrical Plumbing SupervisorPaint Spraying Machine Operator Helper 12/27/23 documented as of this encounter
--- OUTSIDE RECORDS SUMMARY | 2025-06-20 15:15 | XMS_ITS | Encounter Summary ---
Author Organization [employer] Address [address] [facility] 7t [place] [address] Care Team Providers Care Engraved Roller Inspector Name Role Phone Marc Nicolas Primary Care Provider Unavail able Radha Shah CUSTOMER TRAINER Primary Care Provider [phone] Colby Hirsch Unavailable Unavailable [facility] CUSTOMER TRAINER Primary Care Provider [phone] Reason for Visit * Reason Comments Med Refill Encounter Details Date Type Department Care Team ([facility] Contact Info) Description 03/17/2023 Refill [facility] MEDICINE [address] [place] [address] Marc Nicolas AGNP Mixed anxiety and depressive [...] Upcoming Encounters Date Type Department Care Team ([facility] Contact Info) Description 07/04/2025 2:00 PM EST Office Visit [facility] MEDICINE [address] [place] [address] SulphurYecenia [facility] [address] [place] [address] 08/01/2025 2:00 PM EST Clinical Support [facility] MEDICINE [address] [place] [address] Kira Bansal, RN 10/04/2025 2:00 PM EST Office Visit [facility] OPTOMETRY [address] [place], [place] [phone] Akila Elizabeth, OD [address] [place] [address] documented as of this encounter Visit Diagnoses Diagnosis Mixed anxiety and depressive disorder Dysthymic disorder documented in this encounter Additional Health Concerns Assessment Noted Time PHQ-9 Depression Total Score: 13 023 3:27 PM EDT documented as of this encounter Care Teams Engraved Roller Inspector Relationship Specialty Start Date End Date Marc Nicolas AGNP PCP - General Family Medicine 10/22/22 04/20/23 Radha Shah FNP [address] [place] [address] PCP - General Family Medicine 04/21/23 04/25/24 [place] [address] PCP - General Family Medicine 04/26/24 Colby Hirsch FNP [address] [place] [address] Nurse Practitioner Family Medicine 07/13/23 Candice Ugarte Geodesy TeacherMobile Lounge Driver Or Operator 12/27/23 documented as of this encounter
--- OUTSIDE RECORDS SUMMARY | 2025-06-20 15:15 | XMS_ITS | Encounter Summary ---
Author Organization [employer] Address [address] [facility] 7t [place] [address] Care Team Providers Care Housing Project Manager Name Role Phone Radha Shah AUTOMATION ANALYST Primary Care Provider [phone] Colby Hirsch AUTOMATION ANALYST Unavailable Unavailable [facility] AUTOMATION ANALYST Primary Care Provider [phone] Reason for Visit * Reason Onset Date Comments Results 02/16/2024 Care Coordination 02/16/[address] Kelly joshua telephone call outreached Encounter Details Date Type Department Care Team ([facility] Contact Info) Description 02/16/2024 Telephone [facility] MEDICINE [address] [place] [address] Radha Shah FNP [address] [place] [address] Results; Care Coordination (V4NL-IFPMoses Obrien telephone call outreached) Social History Tobacco [...] results: labs Date when done: 02/06 Facility: [facility] Please contact pt at [phone] documented in this encounter Plan of Treatment Upcoming Encounters Date Type Department Care Team (Late st Contact Info) Description 07/04/2025 2:00 PM EST Office Visit [facility] MEDICINE [address] [place] [address] Yecenia Frias FNP 230 [place] [address] 08/01/2025 2:00 PM EST Clinical Support [facility] [address] [place] [address] Kira Bansal, MEREDITH 10/04/2025 2:00 PM EST Office Visit [facility] OPTOMETRY [address] [place] [address] Glenn, Akila, OD [address] [place] [address] documented as of this encounter Visit Diagnoses Not on filedocumented in this encounter Additional Health Concerns Assessment Noted Time PHQ-9 Depression Total Score: 6 12/28/19 24 11:17 AM EDT documented as of this encounter Care Teams Housing Project Manager Relationship Specialty Start Date End Date Radha Shah FNP [address] [place] [address] PCP - General Family Medicine 04/21/23 04/25/24 AltagraciaYecenia whipple FNP [address] [place] [address] PCP - General Family Medicine 04/26/24 Colby Hirsch FNP [address] [place] [address] Nurse Practitioner Family Medicine 07/13/23 Candice Ugarte District Manager Primary Care SalesLower In Supervisor 12/27/23 documented as of this encounter
--- OUTSIDE RECORDS SUMMARY | 2025-06-20 15:15 | XMS_ITS | Encounter Summary ---
Author Organization [employer] Address [address] [facility] 7t [place] [address] Care Team Providers Care Plate Driller Name Role Phone Radha Shah DRILLING FIELD OPERATOR Primary Care Provider [phone] Colby Hirsch Unavailable Unavailable [facility] DRILLING FIELD OPERATOR Primary Care Provider [phone] Reason for Visit * Reason Comments Med Refill Encounter Details Date Type Department Care Team (Late st Contact Info) Description 06/28/2023 Refill [facility] MED & PEDS [address] [place] [address] Radha Shah FNP [address] [place] [address] Schizoaffective disorder, depressive type (CMS/HCC) Social History [...] Description 07/04/2025 2:00 PM EST Office Visit [facility] MEDICINE [address] [place] [address] Yecenia Frias FNP [address] [place] [address] 08/01/2025 2:00 PM EST Clinical Support [facility] MEDICINE [address] [place] [address] Kira Bansal RN 10/04/2025 2:00 PM EST Office Visit [facility] OPTOMETRY [address] [place] [address] Akila Elizabeth, OD [address] [place] [address] documented as of this encounter Visit Diagnoses Diagnosis Schizoaffective disorder, depressive type (CMS/HCC) (HCC) Schizoaffective disorder, unspecified condition documented in this encounter Additional Health Concerns Assessment Noted Time PHQ-9 Depression Total Score: 6 06/15/20 23 10:23 AM EDT documented as of this encounter Care Teams Plate Driller Relationship Specialty Start Date End Date Radha Shah FNP [address] [place] [address] PCP - General Family Medicine 04/21/23 04/25/24 GreenbrierYecenia whipple FNP [address] [place] [address] PCP - General Family Medicine 04/26/24 Colby Hirsch FNP [address] [place] [address] Nurse Practitioner Family Medicine 07/13/23 Candice Ugarte Sole InkerChanneler Insole 12/27/23 documented as of this encounter
--- OUTSIDE RECORDS SUMMARY | 2025-06-20 15:15 | XMS_ITS | Encounter Summary ---
Author Organization [employer] Address [address] [facility] [address] 7t [place] [address] Care Team Providers Care Brake Repairer Hydraulic Name Role Phone Radha Shah Primary Care Provider [phone] Colby Hirsch Unavailable Unavailable [facility] BOOK RETAILER Primary Care Provider [phone] Encounter Details Date Type Department Care Team (Late st Contact Info) Description 03/08/[address] [facility] CH[facility] MED & PEDS [address] [place] [address] Radha Shah FNP [address] [place] [address] Social History Tobacco Use Types Packs/Day Years [...] 07/04/2025 2:00 PM EST Office Visit [facility] MEDICINE [address] [place] [address] Yecenia Frias FNP [address] [place] [address] 08/01/2025 2:00 PM EST Clinical Support [facility] MEDICINE [address] [place] [address] Kira Bansal RN 10/04/2025 2:00 PM EST Office Visit [facility] OPTOMETRY [address] [place] [address] Akila Elizabeth, OD [address] [place] [address] documented as of this encounter Visit Diagnoses Not on filedocumented in this encounter Additional Health Concerns Assessment Noted Time PHQ-9 Depression Total Score: 7 03/07/20 24 10:13 AM EDT documented as of this encounter Care Teams Brake Repairer Hydraulic Relationship Specialty Start Date End Date Radha Shah FNP [address] [place] [address] PCP - General Family Medicine 04/21/23 04/25/24 Yecenia Frias FNP [address] [place] [address] PCP - General Family Medicine 04/26/24 Colby Hirsch FNP [address] [place] [address] Nurse Practitioner Family Medicine 07/13/23 Candice Ugarte Attorney Law ClerkSolvent Plant Operator 12/27/23 documented as of this encounter
--- OUTSIDE RECORDS SUMMARY | 2025-06-20 15:15 | XMS_ITS | Encounter Summary ---
Author Organization [employer] Address [address] [facility] [address] 7t [place] [address] Care Team Providers Care Automotive Manager Name Role Phone Radha Shah BRILLIANDEER LOOPER Primary Care Provider [phone] Colby Hirsch BRILLIANDEER LOOPER Unavailable Unavailable [facility] BRILLIANDEER LOOPER Primary Care Provider [phone] Reason for Visit * Reason Comments Med Refill Encounter Details Date Type Department Care Team (Late st Contact Info) Description 06/09/2023 Refill [facility] MEDICINE [address] [place] [address] Marilee Buckner FNP Multiple joint pain; Mixed [...] Description 07/04/2025 2:00 PM EST Office Visit [facility] MEDICINE [address] [place] [address] Yecenia Frias FNP [address] [place] [address] 08/01/2025 2:00 PM EST Clinical Support [facility] MEDICINE [address] [place] [address] Kira Bansal RN 10/04/2025 2:00 PM EST Office Visit [facility] OPTOMETRY [address] [place] [address] Glenn, Akila, OD [address] [place] [address] documented as of this encounter Visit Diagnoses Diagnosis Multiple joint pain Pain in joint, multiple sites Mixed anxiety and depressive disorder Dysthymic disorder documented in this encounter Additional Health Concerns Assessment Noted Time PHQ-9 Depression Total Score: 18 023 11:25 AM EDT documented as of this encounter Care Teams Automotive Manager Relationship Specialty Start Date End Date Radha Shah FNP [address] [place] [address] PCP - General Family Medicine 04/21/23 04/25/24 WaverlyYecenia whipple FNP [address] [place] [address] PCP - General Family Medicine 04/26/24 Colby Hirsch FNP [address] [place] [address] Nurse Practitioner Family Medicine 07/13/23 Candice Ugarte Foam Tank LaminatorBuying Intern 12/27/23 documented as of this encounter
--- OUTSIDE RECORDS SUMMARY | 2025-06-20 15:15 | XMS_ITS | Encounter Summary ---
Author Organization [employer] Address [address] [facility] 7t [place] [address] Care Team Providers Care Dental Services Director Name Role Phone Radha Shah HAM PUMPER Primary Care Provider +[phone] Colby Hirsch Unavailable Unavailable [facility] Primary Care Provider [phone] Reason for Visit * Reason Comments Med Refill Encounter Details Date Type Department Care Team (Late st Contact Info) Description 06/30/2023 Refill [facility] MEDICINE [address] [place] [address] Radha Shah FNP [address] [place] [address] Multiple joint pain Social History Tobacco Use [...] Description 07/04/2025 2:00 PM EST Office Visit [facility] MEDICINE [address] [place] [address] Yecenia Frias FNP [address] [place] [address] 08/01/2025 2:00 PM EST Clinical Support [facility] MEDICINE [address] [place] [address] Kira Bansal RN 10/04/2025 2:00 PM EST Office Visit [facility] OPTOMETRY [address] [place] [address] Glenn, Akila, OD [address] [place] [address] documented as of this encounter Visit Diagnoses Diagnosis Multiple joint pain Pain in joint, multiple sites documented in this encounter Additional Health Concerns Assessment Noted Time PHQ-9 Depression Total Score: 6 06/15/20 23 10:23 AM EDT documented as of this encounter Care Teams Dental Services Director Relationship Specialty Start Date End Date Radha Shah FNP [address] [place] [address] PCP - General Family Medicine 04/21/23 04/25/24 Yecenia Frias FNP [address] [place] [address] PCP - General Family Medicine 04/26/24 Colby Hirsch FNP [address] [place] [address] Nurse Practitioner Family Medicine 07/13/23 Candice Ugarte Pattern Grader CutterPiling Setter 12/27/23 documented as of this encounter
--- OUTSIDE RECORDS SUMMARY | 2025-06-20 15:15 | XMS_ITS | Encounter Summary ---
Author Organization [employer] Address [address] [facility] 7t [place] [address] Care Team Providers Care Process Helper Name Role Phone Colby Hirsch TELEPHONE ORDER CLERK Unavailable Unavailable [facility] Primary Care Provider [phone] Reason for Visit * Reason Onset Date Comments Med Refill 09/29/2024 Encounter Details Date Type Department Care Team ([facility] st Contact Info) Description 09/29/2024 Telephone [facility] MEDICINE [address] [place], [place] [phone] [facility] [address] [place] [address] Med Refill Social History Tobacco Use Types [...] 50 MG tablet To be sent to: [facility] documented in this encounter Plan of Treatment Upcoming Encounters Date Type Department Care Team (Late st Contact Info) Description 07/04/2025 2:00 PM EST Office Visit [facility] MEDICINE [address] [place] [address] [facility] [address] [place], [place] [phone] 08/01/2025 2:00 PM EST Clinical Support [facility] MEDICINE [address] [place] [address] Kira Bansal RN 10/04/2025 2:00 PM EST Office Visit [facility] OPTOMETRY [address] [place] [address] Parveen Elizabethn, OD 230 [place] [address] documented as of this encounter Visit Diagnoses Not on filedocumented in this encounter Additional Health Concerns Assessment Noted Time PHQ-9 Depression Total Score: 7 03/07/20 24 10:13 AM EDT documented as of this encounter Care Teams Process Helper Relationship Specialty Start Date End Date Yecenia Frias FNP [address] [place] [address] PCP - General Family Medicine 04/26/24 Colby Hirsch FNP Nurse Practitioner Family Medicine 07/13/23 Candice Ugarte Hall MonitorLining Maker Hand 12/27/23 documented as of this encounter
--- OUTSIDE RECORDS SUMMARY | 2025-06-20 15:15 | XMS_ITS | Encounter Summary ---
Author Organization [employer] Address [address] [facility] 7t [place] [address] Care Team Providers Care Multi Line Claims Adjuster Name Role Phone Colby Hirsch NURSE CARE MANAGER Unavailable Unavailable [facility] Primary Care Provider [phone] Reason for Visit * Reason Comments Med Refill Encounter Details Date Type Department Care Team ([facility] st Contact Info) Description 10/31/2024 Refill [facility] [address] [place], [place] [phone] [facility] 230 [place] [address] Type 2 diabetes mellitus without complication, with long-term current use of insulin ([facility]) Social History Tobacco Use Types Packs/Day [...] Description 07/04/2025 2:00 PM EST Office Visit [facility] [address] [place] [address] Altagracia, Yecenia, NURSE CARE MANAGER [address] [place] [address] 08/01/2025 2:00 PM EST Clinical Support [facility] [address] [place] [address] Kira Bansal, MEREDITH 10/04/2025 2:00 PM EST Office Visit [facility] OPTOMETRY [address] [place] [address] Akila Elizabeth, OD 230 [place] [address] documented as of this encounter Visit Diagnoses Diagnosis Type 2 diabetes mellitus without complication, with long-term current use of insulin (HCC) documented in this encounter Additional Health Concerns Assessment Noted Time PHQ-9 Depression Total Score: 0 10/24/19 25 1:15 PM EST documented as of this encounter Care Teams Multi Line Claims Adjuster Relationship Specialty Start Date End Date Yecenia Frias FNP [address] [place] [address] PCP - General Family Medicine 04/26/24 Colby Hirsch FNP Nurse Practitioner Family Medicine 07/13/23 Candice Ugarte Behavioral GeneticistMuseum Curator 12/27/23 documented as of this encounter
--- OUTSIDE RECORDS SUMMARY | 2025-06-20 15:15 | XMS_ITS | Encounter Summary ---
Author Organization [employer] Address [address] [facility] 7t [place] [address] Care Team Providers Care Hospital Attendant Name Role Phone Radha Shah COLLEGE BASKETBALL COACH Primary Care Provider [phone] Colby Hirsch COLLEGE BASKETBALL COACH Unavailable Unavailable [facility] COLLEGE BASKETBALL COACH Primary Care Provider [phone] Reason for Visit * Reason Comments Med Refill Encounter Details Date Type Department Care Team (Late st Contact Info) Description 06/16/2023 Refill [facility] 230 [place] [address] Marc Nicolas AGNP Pain Social History Tobacco [...] Visit [facility] 230 [place] [address] Peach CreekYecenia FNP 230 [place] [address] 08/01/2025 2:00 PM EST Clinical Support [facility] 230 [place] [address] Kira Bansal RN 10/04/2025 2:00 PM EST Office Visit [facility] OPTOMETRY [address] [place] [address] Glenn, Akila, OD 230 [place] [address] documented as of this encounter Visit Diagnoses Diagnosis Pain Generalized pain documented in this encounter Additional Health Concerns Assessment Noted Time PHQ-9 Depression Total Score: 6 06/15/20 23 10:23 AM EDT documented as of this encounter Care Teams Hospital Attendant Relationship Specialty Start Date End Date Radha Shah FNP [address] [place] [address] PCP - General Family Medicine 04/21/23 04/25/24 Pe[place] CreekYecenia FNP [address] [place] [address] PCP - General Family Medicine 04/26/24 Colby Hirsch FNP [address] [place] [address] Nurse Practitioner Family Medicine 07/13/23 Candice Ugarte Hat ModelVp Marketing 12/27/23 documented as of this encounter
--- OUTSIDE RECORDS SUMMARY | 2025-06-20 15:15 | XMS_ITS | Encounter Summary ---
Author Organization [employer] Address 75 [facility] 7t [place] [address] Care Team Providers Care Oyster Harvester Name Role Phone Marc Nicolas Primary Care Provider Unavail able Radha Shah Primary Care Provider [phone] Colby Hirsch Unavailable Unavailable [facility] ARCADE TECHNICIAN Primary Care Provider [phone] Reason for Visit * Reason Onset Date Comments Med Refill 03/10/2023 Encounter Details Date Type Department Care Team ([facility] Contact Info) Description 03/10/2023 Telephone [facility] 230 [place], [place] [phone] Marc Nicolas AGNP Med Refill Social History [...] Upcoming Encounters Date Type Department Care Team ([facility] Contact Info) Description 07/04/2025 2:00 PM EST Office Visit [facility] [address] [place] [address] [place] [facility] 230 [place] [address] 08/01/2025 2:00 PM EST Clinical Support [facility] 230 [place] [address] Kira Bansal, MEREDITH 10/04/2025 2:00 PM EST Office Visit [facility] OPTOMETRY [address] [place], [place] [phone] Akila Elizabeth, OD 230 [place] [address] documented as of this encounter Visit Diagnoses Not on filedocumented in this encounter Additional Health Concerns Assessment Noted Time PHQ-9 Depression Total Score: 13 023 3:27 PM EDT documented as of this encounter Care Teams Oyster Harvester Relationship Specialty Start Date End Date Marc Nicolas AGNP PCP - General Family Medicine 10/22/22 04/20/23 Radha Shah FNP [address] [place] [address] PCP - General Family Medicine 04/21/23 04/25/24 [place] [address] PCP - General Family Medicine 04/26/24 Colby Hirsch FNP [address] [place] [address] Nurse Practitioner Family Medicine 07/13/23 Candice Ugarte Financial SpecialistTobacco Wrapping Machine Tender 12/27/23 documented as of this encounter
--- OUTSIDE RECORDS SUMMARY | 2025-06-20 15:15 | XMS_ITS | Encounter Summary ---
Author Organization [employer] Address 75 [facility] 7t [place] [address] Care Team Providers Care Wireless Sales Manager Name Role Phone Marc Nicolas Primary Care Provider Unavail able Radha Shah Primary Care Provider +[phone] Colby Hirsch Unavailable Unavailable [facility] HAND ROLLER ENGRAVER Primary Care Provider [phone] Reason for Visit * Reason Comments Med Refill Encounter Details Date Type Department Care Team (Late st Contact Info) Description 03/10/2023 Refill [facility] 230 [place] [address] Marc Nicolas AGNP Mixed anxiety and depressive [...] Will send to PCP on 03/18/23. Has FOLEY ARTIST scheduled 03/17/23. * Telephone Encounter - hCika Low - 03/15/2023 9:14 AM EDT Tc from patient requesting a med refill for medication tramadol [address] Nicolas documented in this encounter Plan of Treatment Upcoming Encounters Date Type Department Care Team (Late st Contact Info) Description 07/04/2025 2:00 PM EST Office Visit [facility] 230 [place] [address] Yecenia Frias FNP 230 [place] [address] 08/01/2025 2:00 PM EST Clinical Support [facility] 230 [place] [address] Kira Bansal, MEREDITH 10/04/2025 2:00 PM EST Office Visit [facility] OPTOMETRY [address] [place] [address] Glenn, Akila, OD 230 [place] [address] documented as of this encounter Visit Diagnoses Diagnosis Mixed anxiety and depressive disorder Dysthymic disorder Multiple joint pain Pain in joint, multiple sites documented in this encounter Additional Health Concerns Assessment Noted Time PHQ-9 Depression Total Score: 13 023 3:27 PM EDT documented as of this encounter Care Teams Wireless Sales Manager Relationship Specialty Start Date End Date Marc Nicolas AGNP PCP - General Family Medicine 10/22/22 04/20/23 Radha Shah FNP 230 [place] [address] PCP - General Family Medicine 04/21/23 04/25/24 PalmettoYecenia FNP 230 [place] [address] PCP - General Family Medicine 04/26/24 Colby Hirsch FNP 230 [place] [address] Nurse Practitioner Family Medicine 07/13/[address] Operations ClerkGreensman 12/27/23 documented as of this encounter
--- OUTSIDE RECORDS SUMMARY | 2025-06-20 15:15 | XMS_ITS | Encounter Summary ---
Author Organization [employer] Address 75 [facility] 7t [place] [address] Care Team Providers Care Wet Process Assistant Head Miller Name Role Phone Colby Hirsch ACCESS DEVELOPER Unavailable Unavailable [facility] Primary Care Provider [phone] Encounter Details Date Type Department Care Team ([facility] st Contact Info) Description 08/11/2024 Telephone [facility] 230 [place] [address] [facility] 230 [place] [address] Social History Tobacco Use Types Packs/Day Years [...] Description 07/04/2025 2:00 PM EST Office Visit [facility] 230 [place] [address] Yecenia Frias [facility] 230 [place] [address] 08/01/2025 2:00 PM EST Clinical Support [facility] [address] [place] [address] Kira Bansal RN 10/04/2025 2:00 PM EST Office Visit [facility] OPTOMETRY 267 [place] [address] Glenn, Akila, OD 230 [place] [address] documented as of this encounter Visit Diagnoses Not on filedocumented in this encounter Additional Health Concerns Assessment Noted Time PHQ-9 Depression Total Score: 7 03/07/20 24 10:13 AM EDT documented as of this encounter Care Teams Wet Process Assistant Head Miller Relationship Specialty Start Date End Date Yecenia Frias FNP 230 [place] [address] PCP - General Family Medicine 04/26/24 Colby Hirsch FNP Nurse Practitioner Family Medicine 07/13/23 Candice Ugarte Power Mule OperatorSurgical Services Director 12/27/23 documented as of this encounter
--- OUTSIDE RECORDS SUMMARY | 2025-06-20 15:15 | XMS_ITS | Encounter Summary ---
Author Organization [employer] Address 75 [facility] 7t [place] [address] Care Team Providers Care Manager Drug Name Role Phone Marc Nicolas Primary Care Provider Unavail able Radha Shah Primary Care Provider +0 Colby Hirsch Unavailable Unavailable [facility] CORN GRINDER Primary Care Provider [phone] Reason for Visit * Reason Comments Med Refill Encounter Details Date Type Department Care Team (Late st Contact Info) Description 03/10/2023 Refill [facility] 230 [place], [place] [phone] Marc Nicolas AGNP Mixed anxiety and depressive [...] 07/04/2025 2:00 PM EST Office Visit [facility] MEDICINE 230 [place] [address] [facility] 230 [place] [address] 08/01/2025 2:00 PM EST Clinical Support [facility] MED[facility] 230 [place] [address] Kira Bansal, RN 10/04/2025 2:00 PM EST Office Visit [facility] OPTOMETRY [address] [place], [place] [phone] Akila Elizabeth, OD 230 [place] [address] documented as of this encounter Visit Diagnoses Diagnosis Mixed anxiety and depressive disorder Dysthymic disorder documented in this encounter Additional Health Concerns Assessment Noted Time PHQ-9 Depression Total Score: 13 023 3:27 PM EDT documented as of this encounter Care Teams Manager Drug Relationship Specialty Start Date End Date Marc Nicolas AGNP PCP - General Family Medicine 10/22/22 04/20/23 Radha Shah FNP 230 [place] [address] PCP - General Family Medicine 04/21/23 04/25/24 [facility] [place] [address] PCP - General Family Medicine 04/26/24 Colby Hirsch FNP [address] [place] [address] Nurse Practitioner Family Medicine 07/13/23 Candice Ugarte Millwright SupervisorMeat Dresser 12/27/23 documented as of this encounter
--- OUTSIDE RECORDS SUMMARY | 2025-06-20 15:15 | XMS_ITS | Encounter Summary ---
Author Organization [employer] Address 75 [facility] 7t [place] [address] Care Team Providers Care Purchasing Supervisor Name Role Phone Radha Shah MIGRATION AGENT Primary Care Provider +[phone] Colby Hirsch Unavailable Unavailable [facility] Primary Care Provider [phone] Encounter Details Date Type Department Care Team (Late st Contact Info) Description 02/17/2024 Community Care Management [facility] MEDICINE 230 [place] [address] Radha Shah FNP 230 [place] [address] Social History Tobacco Use Types Packs/Day Years [...] 2:00 PM EST Office Visit [facility] MEDICINE 230 [place] [address] Yecenia Frias FNP 230 [place] [address] 08/01/2025 2:00 PM EST Clinical Support [facility] MED[facility] [address] [place] [address] Kira Bansal RN 10/04/2025 2:00 PM EST Office Visit [facility] OPTOMETRY 267 [place] [address] Glenn, Akila, OD 230 [place] [address] documented as of this encounter Visit Diagnoses Not on filedocumented in this encounter Additional Health Concerns Assessment Noted Time PHQ-9 Depression Total Score: 6 12/28/19 24 11:17 AM EDT documented as of this encounter Care Teams Purchasing Supervisor Relationship Specialty Start Date End Date Radha Shah FNP [address] [place] [address] PCP - General Family Medicine 04/21/23 04/25/24 Yecenia Frias FNP 230 [place] [address] PCP - General Family Medicine 04/26/24 Colby Hirsch FNP 230 [place] [address] Nurse Practitioner Family Medicine 07/13/23 Candice Ugarte Automobile MechanicEducational Recruiter 12/27/23 documented as of this encounter
--- OUTSIDE RECORDS SUMMARY | 2025-06-20 15:15 | XMS_ITS | Encounter Summary ---
Author Organization [email or web address] Address [address] [facility] [address] 7t [place] [address] Care Team Providers Care Aircraft Air Conditioning Mechanic Name Role Phone Radha Shah Primary Care Provider +5 Colby Hirsch Unavailable Unavailable [facility] SENIOR ABAP DEVELOPER Primary Care Provider [phone] Encounter Details Date Type Department Care Team (Late st Contact Info) Description 02/16/2024 Orders Only [facility] MED & PEDS [address] [place] [address] Radha Shah FNP [address] [place] [address] Routine adult health maintenance (Primary Dx) Social [...] Description 07/04/2025 2:00 PM EST Office Visit [facility] MEDICINE 230 [place] [address] Yecenia Frias FNP 230 [place] [address] 08/01/2025 2:00 PM EST Clinical Support [facility] MEDICINE 230 [place] [address] Kira Bansal RN 10/04/2025 2:00 PM EST Office Visit [facility] OPTOMETRY [address] [place] [address] Glenn, Akila, OD 230 [place] [address] documented as of this encounter Visit Diagnoses Diagnosis Routine adult health maintenance- Primary documented in this encounter Additional Health Concerns Assessment Noted Time PHQ-9 Depression Total Score: 6 12/28/19 24 11:17 AM EDT documented as of this encounter Care Teams Aircraft Air Conditioning Mechanic Relationship Specialty Start Date End Date Radha Shah FNP 230 [place] [address] PCP - General Family Medicine 04/21/23 04/25/24 Yecenia Frias FNP 230 [place] [address] PCP - General Family Medicine 04/26/24 Colby Hirsch FNP 230 [place] [address] Nurse Practitioner Family Medicine 07/13/23 Candice Ugarte Workers Compensation Legal SecretaryMusic Ministries Director 12/27/23 documented as of this encounter
--- OUTSIDE RECORDS SUMMARY | 2025-06-20 15:15 | XMS_ITS | Encounter Summary ---
Author Organization [employer] Address 75 [facility] 7t [place] [address] Care Team Providers Care Oral Surgery Technician Name Role Phone Marc Nicolas Primary Care Provider Unavail able Radha Shah CATALYST CONCENTRATION OPERATOR Primary Care Provider +1 Colby Hirsch Unavailable Unavailable [facility] Primary Care Provider [phone] Reason for Visit * Reason Comments Med Refill Encounter Details Date Type Department Care Team (Late Contact Info) Description 04/07/2023 Refill [facility]EDS [address] [place], [place] [phone] Marc Nicolas AGNP Multiple joint pain Social [...] Upcoming Encounters Date Type Department Care Team ([facility] Contact Info) Description 07/04/2025 2:00 PM EST Office Visit [facility] MEDICINE 230 [place], [place] [phone] [facility] 230 [place], [place] [phone] 08/01/2025 2:00 PM EST Clinical Support [facility] MEDICINE 230 [place] [address] Kira Bansal, MEREDITH 10/04/2025 2:00 PM EST Office Visit [facility] OPTOMETRY [address] [place] [address] Glenn, Megan, OD 230 [place] [address] documented as of this encounter Visit Diagnoses Diagnosis Multiple joint pain Pain in joint, multiple sites documented in this encounter Additional Health Concerns Assessment Noted Time PHQ-9 Depression Total Score: 0 04/02/20 2:10 PM EDT documented as of this encounter Care Teams Oral Surgery Technician Relationship Specialty Start Date End Date Marc Nicolas AGNP PCP - General Family Medicine 10/22/22 04/20/23 Radha Shah FNP 230 [place] [address] PCP - General Family Medicine 04/21/23 04/25/24 RirieYeecnia FNP [address] [place] [address] PCP - General Family Medicine 04/26/24 Colby Hirsch FNP [address] [place] [address] Nurse Practitioner Family Medicine 07/13/23 Candice Ugarte Clearance DiverAutomobile Drivers 12/27/23 documented as of this encounter
--- OUTSIDE RECORDS SUMMARY | 2025-06-20 15:15 | XMS_ITS | Encounter Summary ---
Author Organization [employer] Address 75 [facility] 7t [place] [address] Care Team Providers Care Epic Prelude Analyst Name Role Phone Marc Nicolas Primary Care Provider Unavail able Radha Shah Primary Care Provider [phone] Colby Hirsch Unavailable Unavailable [facility] BUCKLE GLUER Primary Care Provider [phone] Reason for Visit * Reason Onset Date Comments Med Refill 03/16/2023 Encounter Details Date Type Department Care Team (Late st Contact Info) Description 03/16/2023 Telephone [facility] MEDICINE 230 [place], [place] [phone] Marc Nicolas AGNP Med Refill Social History [...] 03/16/2023 3:56 PM EDT Pt scheduled for CONSTRUCTION PERSON RV 03/17/23 @ 10am. Tramadol refill due 03/19/23, Clonazepam refill due 03/18/23.Will forward request to PCP after CONSTRUCTION PERSON appt 03/17/23. * Telephone Encounter - Natividad Rio - 03/16/2023 3:36 PM EDT Tc from pt requesting medication refill on traMADol (Ultram) 50 MG tablet and clonazePAM (KlonoPIN)0.5 MG tablet documented in this encounter Plan of Treatment Upcoming Encounters Date Type Department Care Team (Late st Contact Info) Description 07/04/2025 2:00 PM EST Office Visit [facility] MEDICINE 230 [place] [address] Yeceina Frias FNP 230 [place] [address] 08/01/2025 2:00 PM EST Clinical Support [facility] MEDICINE 230 [place] [address] Kira Bansal, MEREDITH 10/04/2025 2:00 PM EST Office Visit [facility] OPTOMETRY [address] [place] [address] Glenn, Akila, OD 230 [place] [address] documented as of this encounter Visit Diagnoses Not on filedocumented in this encounter Additional Health Concerns Assessment Noted Time PHQ-9 Depression Total Score: 13 023 3:27 PM EDT documented as of this encounter Care Teams Epic Prelude Analyst Relationship Specialty Start Date End Date Marc Nicolas AGNP PCP - General Family Medicine 10/22/22 04/20/23 Radha Shah FNP 230 [place] [address] PCP - General Family Medicine 04/21/23 04/25/24 [place] FNP 230 [place] [address] PCP - General Family Medicine 04/26/24 Colby Hirsch FNP 230 [place] [address] Nurse Practitioner Family Medicine 07/13/23 Candice Ugarte Maintenance Service TechnicianChief Load Dispatcher 12/27/23 documented as of this encounter
--- OUTSIDE RECORDS SUMMARY | 2025-06-20 15:15 | XMS_ITS | Encounter Summary ---
Author Organization [employer] Address 75 [facility] 7t [place] [address] Care Team Providers Care Car Top Bolter Name Role Phone Radha Shah WASTE DISPOSAL ATTENDANT Primary Care Provider +0 Colby Hirsch Unavailable Unavailable [facility] Primary Care Provider [phone] Reason for Visit * Reason Comments Med Refill Encounter Details Date Type Department Care Team (Late st Contact Info) Description 02/16/2024 Refill [facility] MEDICINE 230 [place] [address] Radha Shah FNP 230 [place] [address] Multiple joint pain Social History Tobacco Use [...] EST Office Visit [facility] MEDICINE 230 [place] [address] Yecenia Frias FNP 230 [place] [address] 08/01/2025 2:00 PM EST Clinical Support [facility] MEDICINE 230 [place] [address] Kira Bansal RN 10/04/2025 2:00 PM EST Office Visit [facility] OPTOMETRY [address] [place] [address] Glenn, Akila, OD 230 [place] [address] documented as of this encounter Visit Diagnoses Diagnosis Multiple joint pain Pain in joint, multiple sites documented in this encounter Additional Health Concerns Assessment Noted Time PHQ-9 Depression Total Score: 6 12/28/19 24 11:17 AM EDT documented as of this encounter Care Teams Car Top Bolter Relationship Specialty Start Date End Date Radha Shah FNP 230 [place] [address] PCP - General Family Medicine 04/21/23 04/25/24 Yecenia Frias FNP [address] [place] [address] PCP - General Family Medicine 04/26/24 Colby Hirsch FNP 230 [place] [address] Nurse Practitioner Family Medicine 07/13/23 Candice Ugarte Uniform DesignerOracle Programmer 12/27/23 documented as of this encounter
--- OUTSIDE RECORDS SUMMARY | 2025-06-20 15:15 | XMS_ITS | Encounter Summary ---
Author Organization [employer] Address 75 [facility] 7t [place] [address] Care Team Providers Care Railroad Car Repairman Name Role Phone PabloDanymargie CASEY Primary Care Provider +5 Colby Hirsch Unavailable Unavailable [facility] Primary Care Provider [phone] Reason for Visit * Reason Comments Med Refill Encounter Details Date Type Department Care Team (Late st Contact Info) Description 01/04/[address] [facility] MEDICINE [address] [place] [address] Colby Hirsch FNP Social History Tobacco Use [...] PM EST Office Visit [facility] MEDICINE 230 [place] [address] AltagraciaYecenia whipple FNP 230 [place] [address] 08/01/2025 2:00 PM EST Clinical Support [facility] MEDICINE 230 [place] [address] Kira Bansal, MEREDITH 10/04/2025 2:00 PM EST Office Visit [facility] OPTOMETRY [address] [place] [address] Glenn, Akila, OD 230 [place] [address] documented as of this encounter Visit Diagnoses Not on filedocumented in this encounter Additional Health Concerns Assessment Noted Time PHQ-9 Depression Total Score: 6 12/28/19 24 11:17 AM EDT documented as of this encounter Care Teams Railroad Car Repairman Relationship Specialty Start Date End Date Rahda Shah FNP [address] [place] [address] PCP - General Family Medicine 04/21/23 04/25/24 AltagraciaYecenia whipple FNP [address] [place] [address] PCP - General Family Medicine 04/26/24 Colby Hirsch FNP [address] [place] [address] Nurse Practitioner Family Medicine 07/13/23 Candice Ugarte Briquette MakerGround School Instructor 12/27/23 documented as of this encounter
[2025-06-20 16:31] LABS: Microalbum/Creatinine Ratio Ur 13.0 ug/mg cr (<30)
== END 2025-06-20 11:51 | disposition home or self-care (01) ==
LOC: HO.HHCL 11:50
PROVIDERS: Physician Assistant; PCP Registered Nurse; Visit Provider Registered Nurse
DX: E11.9 Type 2 diabetes mellitus without complications (principal); E66.01 Morbid (severe) obesity due to excess calories; I10 Essential (primary) hypertension; E50.9 Vitamin A deficiency, unspecified
CPT/HCPCS: 36415; 80053; 82043; 82570; 83036; 84590

== ENCOUNTER 2025-07-02 16:21 | Outpatient (REF) | payer MEDICAID, SELFPAY ==
--- OUTSIDE RECORDS SUMMARY | 2025-07-02 14:00 | XMS_ITS | Encounter Summary ---
Author Organization [employer] Address [address] [facility] [address] 7t [place] [address] Care Team Providers Care Can Striper Name Role Phone Colby Hirsch GLASS RIBBON MACHINE OPERATOR Unavailable Unavailable [facility] GLASS RIBBON MACHINE OPERATOR Primary Care Provider [phone] Reason for Visit * Reason Comments UTI Encounter Details Date Type Department Care Team ([facility] st Contact Info) Description 07/02/2025 2:00 PM EST Office Visit [facility] [address] [place] [address] Vaginal discharge (Primary Dx); UTI symptoms Social History Tobacco Use Types Packs/Day Years [...] Sign Reading Time Taken Comments Blood Pressure 132/87 07/02/2025 2:14 PM EST Pulse 85 07/02/2025 2:14 PM EST Temperature 36.6 C (97.9 F) 07/02/2025 2:14 PM EST Respiratory Rate 16 07/02/2025 2:14 PM EST Oxygen Saturation - - Inhaled Oxygen Concentration - - Weight 87.5 kg (193 lb) 07/02/2025 2:14 PM EST Height 152.4 cm (5') 07/02/2025 2:14 PM EST Body Mass Index 37.69 07/02/2025 2:14 PM EST documented in this encounter Plan of Treatment Upcoming Encounters Date Type Department Care Team (Late st Contact Info) Description 07/25/2025 2:00 PM EST Office Visit [facility] [address] [place] [address] Yecenia Frias FNP 230 [place] [address] 08/01/2025 2:00 PM EST Clinical Support [facility] [address] [place] [address] Kira Bansal, MEREDITH 10/04/2025 2:00 PM EST Office Visit [facility] [address] [place] [address] Akila Elizabeth, OD 230 [place] [address] Scheduled Orders Name Type Priority Associated Diagnoses Orde r Schedule Culture, Urine, Routine Microbiology Routine UTI symptoms Ordered: 07/02/2025 Bacterial Vaginosis Panel Microbiology Routine Vaginal discharge Ordered: 07/02/2025 documented as of this encounter Procedures Procedure Name Priority Date/Time Associated Diagnosis Comments POCT URINALYSIS DIPSTICK Routine 07/02/2025 2:23 PM EST UTI symptoms documented in this encounter Results * (ABNORMAL) POCT urinalysis dipstick manually resulted (CPT 90464) (07/02/2025 2:23 PM EST) Color, UA Yellow Clarity, UA Cloudy Glucose, UA Negative Bilirubin, UA Trace Comment:small Ketones, UA Positive Comment:15 Spec Grav, UA 1.020 Blood, UA Positive(A) Negative, None Detected Comment:moderate pH, UA 6.0 Protein, UA Trace Comment:100 Urobilinogen, UA 1.0 Leukocytes, UA Moderate(A) Negative, Rare, Trace Comment:large Nitrite, UA Positive(A) Negative, None Detected QC Media Lot # [id number] Lot# Expiration Date Urine (Urine, Random) 07/02/2025 2:23 PM EST Katherine CASEY POINT OF CARE TEST ENTER/EDIT ORDERABLES Final Result documented in this encounter Visit Diagnoses Diagnosis Vaginal discharge- Primary Leukorrhea, not specified as infective UTI symptoms documented in this encounter Additional Health Concerns Assessment Noted Time PHQ-9 Depression Total Score: 025 1:53 PM EDT documented as of this encounter Care Teams Can Striper Relationship Specialty Start Date End Date Yecenia Frias FNP [address] [place] [address] PCP - General Family Medicine 04/26/24 Colby Hirsch FNP Nurse Practitioner Family Medicine 07/13/23 Candice Ugarte DisplayerBus Cleaner 12/27/23 documented as of this encounter
--- OUTSIDE RECORDS SUMMARY | 2025-07-02 18:00 | XMS_ITS | Encounter Summary ---
Author Organization [employer] Address [address] [facility] 7t [place] [address] Care Team Providers Care Piercing Mill Operator Name Role Phone Radha Shah ABSTRACTER Primary Care Provider +1 Colby Hirsch Unavailable Unavailable [facility] Primary Care Provider [phone] Reason for Visit * Reason Comments Med Refill Encounter Details Date Type Department Care Team (Late st Contact Info) Description 07/02/2023 Refill [facility] [address] [place] [address] Radha Shah FNP [address] [place] [address] Multiple joint pain Social History Tobacco Use [...] Description 07/25/2025 2:00 PM EST Office Visit [facility] [address] [place] [address] Yecenia Frias FNP [address] [place] [address] 08/01/2025 2:00 PM EST Clinical Support [facility] [address] [place] [address] Kira Bansal RN 10/04/2025 2:00 PM EST Office Visit [facility] [address] [place] [address] lGenn, Akila, OD 230 [place] [address] documented as of this encounter Visit Diagnoses Diagnosis Multiple joint pain Pain in joint, multiple sites documented in this encounter Additional Health Concerns Assessment Noted Time PHQ-9 Depression Total Score: 6 06/15/20 10:23 AM EDT documented as of this encounter Care Teams Piercing Mill Operator Relationship Specialty Start Date End Date Radha Shah FNP [address] [place] [address] PCP - General Family Medicine 04/21/23 04/25/24 Yecenia Frias FNP [address] [place] [address] PCP - General Family Medicine 04/26/24 Colby Hirsch FNP [address] [place] [address] Nurse Practitioner Family Medicine 07/13/23 Candice Ugarte Animal Treatment InvestigatorEmployment Appeals Examiner 12/27/23 documented as of this encounter
--- OUTSIDE RECORDS SUMMARY | 2025-07-02 18:00 | XMS_ITS | Encounter Summary ---
Author Organization [employer] Address [address] [facility] 7t [place] [address] Care Team Providers Care Head Of Geography Name Role Phone Marc Nicolas Primary Care Provider Unavail able Radha Shah Primary Care Provider [phone] Colby Hirsch Unavailable Unavailable [facility] ATHLETIC COACH Primary Care Provider [phone] Reason for Visit * Reason Onset Date Comments Med Refill 04/09/2023 Encounter Details Date Type Department Care Team (Late st Contact Info) Description 04/09/2023 Refill [facility] [address] [place] [address] Marc Nicolas AGNP Mixed anxiety and depressive [...] listed in EHR, no record. Spoke with [facility] pharmacy, she is listed as [...] (KlonoPIN) 0.5 MG tablet Please sent to [facility] - [place], [place] - [address] [facility] documented in this encounter Plan of Treatment Upcoming Encounters Date Type Department Care Team (Late st Contact Info) Description 07/25/2025 2:00 PM EST Office Visit [facility] [address] [place] [address] Yecenia Frias FNP 230 [place] [address] 08/01/2025 2:00 PM EST Clinical Support [facility] [address] [place] [address] Kira Bansal RN 10/04/2025 2:00 PM EST Office Visit [facility] [address] [place] [address] Akila Elizabeth, LAY 230 [place] [address] documented as of this encounter Visit Diagnoses Diagnosis Mixed anxiety and depressive disorder Dysthymic disorder documented in this encounter Additional Health Concerns Assessment Noted Time PHQ-9 Depression Total Score: 0 04/02/20 23 2:10 PM EDT documented as of this encounter Care Teams Head Of Geography Relationship Specialty Start Date End Date Marc Nicolas AGNP PCP - General Family Medicine 10/22/22 04/20/23 Radha Shah FNP [address] [place] [address] PCP - General Family Medicine 04/21/23 04/25/24 ConyersYecenia FNP [address] [place] [address] PCP - General Family Medicine 04/26/24 Colby Hirsch FNP [address] [place] [address] Nurse Practitioner Family Medicine 07/13/23 Candice Ugarte Monorail HelperSales Incentive Analyst 12/27/23 documented as of this encounter
--- OUTSIDE RECORDS SUMMARY | 2025-07-02 18:00 | XMS_ITS | Encounter Summary ---
Author Organization [employer] Address [address] [facility] [address] [place] [address] Care Team Providers Care Accounting Supervisor Name Role Phone Radha Shah Primary Care Provider +[phone] Colby Hirsch Unavailable Unavailable [facility] PAVER INSTALLER Primary Care Provider [phone] Encounter Details Date Type Department Care Team (Late st Contact Info) Description 10/29/2023 Orders Only [facility] [address] [place] [address] Radha Shah FNP [address] [place] [address] Social History Tobacco Use Types Packs/Day Years [...] Description 07/25/2025 2:00 PM EST Office Visit [facility] 230 [place] [address] Yecenia Frias FNP [address] [place] [address] 08/01/2025 2:00 PM EST Clinical Support [facility] [address] [place] [address] Kira Bansal RN 10/04/2025 2:00 PM EST Office Visit [facility] [address] [place] [address] Glenn, Akila, OD 230 [place] [address] documented as of this encounter Visit Diagnoses Not on filedocumented in this encounter Additional Health Concerns Assessment Noted Time PHQ-9 Depression Total Score: 8 09/02/19 24 11:12 AM EST documented as of this encounter Care Teams Accounting Supervisor Relationship Specialty Start Date End Date Radha Shah FNP [address] [place] [address] PCP - General Family Medicine 04/21/23 04/25/24 Yecenia Frias FNP [address] [place] [address] PCP - General Family Medicine 04/26/24 Colby Hirsch FNP [address] [place] [address] Nurse Practitioner Family Medicine 07/13/23 Candice Ugarte Sander MachineIt Applications Developer 12/27/23 documented as of this encounter
--- OUTSIDE RECORDS SUMMARY | 2025-07-02 18:00 | XMS_ITS | Encounter Summary ---
Author Organization [employer] Address [address] [facility] 7t [place] [address] Care Team Providers Care Program Advisor Name Role Phone Colby Hirsch MEDICAL INSURANCE CODER Unavailable Unavailable [facility] Primary Care Provider [phone] Reason for Visit * Reason Comments Med Refill Encounter Details Date Type Department Care Team (Late st Contact Info) Description 03/12/2025 Refill [facility] [address] [place] [address] Radha Shah FNP [address] [place] [address] Social History Tobacco Use Types Packs/Day Years [...] Description 07/25/2025 2:00 PM EST Office Visit [facility] [address] [place] [address] Yecenia Frias FNP 230 [place] [address] 08/01/2025 2:00 PM EST Clinical Support [facility] [address] [place] [address] Kira Bansal RN 10/04/2025 2:00 PM EST Office Visit [facility] [address] [place] [address] Akila Elizabeht, OD 230 [place] [address] documented as of this encounter Visit Diagnoses Not on filedocumented in this encounter Additional Health Concerns Assessment Noted Time PHQ-9 Depression Total Score: 0 02/27/20 25 10:29 AM EDT documented as of this encounter Care Teams Program Advisor Relationship Specialty Start Date End Date Yecenia Frias FNP 230 [place] [address] PCP - General Family Medicine 04/26/24 Colby Hirsch FNP Nurse Practitioner Family Medicine 07/13/23 Candice Ugarte Operating Room RnChild Abuse Worker 12/27/23 documented as of this encounter
--- OUTSIDE RECORDS SUMMARY | 2025-07-02 18:00 | XMS_ITS | Encounter Summary ---
Author Organization [employer] Address [address] 7[address] [place] [address] Care Team Providers Care Rail Car Operator Name Role Phone Radha Shah APPRENTICE JOCKEY Primary Care Provider [phone] Colby Hirsch Unavailable Unavailable [facility] APPRENTICE JOCKEY Primary Care Provider [phone] Encounter Details Date Type Department Care Team (Late st Contact Info) Description 04/24/2024 Orders Only [facility] [address] [place] [address] Radha Shah FNP [address] [place] [address] Elevated lipids (Primary Dx) Social History Tobacco [...] Description 07/25/2025 2:00 PM EST Office Visit [facility] [address] [place] [address] Imbler, Yecenia, APPRENTICE JOCKEY [address] [place] [address] 08/01/2025 2:00 PM EST Clinical Support [facility] [address] [place] [address] Kira Bansal RN 10/04/2025 2:00 PM EST Office Visit [facility] [address] [place] [address] Akila Elizabeth, OD 230 [place] [address] documented as of this encounter Procedures Procedure Name Priority Date/Time Associated Diagnosis Comments LIPID PANEL, STANDARD Routine 05/12/2024 11:00 AM EDT Elevated lipids documented in this encounter Results * (ABNORMAL) Lipid Panel, Standard (05/12/2024 11:00 AM EDT) Triglycerides 100 <150 mg/dL [facility] Comment:Desirable Triglyceri de: less than 150 mg/dLBorderline High Triglyceride 150-199 mg/dLHigh Triglyceride: 200-499 mg/dLVery High Triglyceride: greater than or equal to 5OO mg/dL Cholesterol 101 <200 mg/dL [facility] Comment:Desirable Cholestero l: less than 200 mg/dLBorderline High Cholesterol: 200-239 mg/dLHigh Cholesterol: greater than 239 mg/dL LDL Cholesterol Calculated 44 <100 mg/dL [facility] Comment:Desirable LDL: less than 100 [...] CASEY LAB BLOOD ORDERABLES Final Resu lt [facility] [address] [place] [address] [phone] documented in this encounter Visit Diagnoses Diagnosis Elevated lipids- Primary documented in this encounter Additional Health Concerns Assessment Noted Time PHQ-9 Depression Total Score: 7 03/07/20 24 10:13 AM EDT documented as of this encounter Care Teams Rail Car Operator Relationship Specialty Start Date End Date Radha Shah FNP [address] [place] [address] PCP - General Family Medicine 04/21/23 04/25/24 Yecenia Frias FNP [address] [place] [address] PCP - General Family Medicine 04/26/24 Colby Hirsch FNP [address] [place] [address] Nurse Practitioner Family Medicine 07/13/23 Candice Ugarte Elevator ErectorTerminal Operations Supervisor 12/27/23 documented as of this encounter
--- OUTSIDE RECORDS SUMMARY | 2025-07-02 18:00 | XMS_ITS | Encounter Summary ---
Author Organization [employer] Address [address] [facility] 7t [place] [address] Care Team Providers Care Dividend Deposit Entry Clerk Name Role Phone Radha Shah MANUFACTURER'S REPRESENTATIVE Primary Care Provider +[phone] Colby Hirsch Unavailable Unavailable [facility] MANUFACTURER'S REPRESENTATIVE Primary Care Provider [phone] Reason for Visit * Reason Onset Date Comments telephone call 10/29/2023 Encounter Details Date Type Department Care Team (Late st Contact Info) Description 10/29/2023 Refill [facility] [address] [place] [address] Radha Shah FNP [address] [place] [address] Multiple joint pain Social History Tobacco Use [...] does not remember the program name. A team physician from the program told her that if she still want to be in the program she needs a referral from PCP. Please call patient with any concern or questions. * Telephone Encounter - Celine Pate - 11/12/2023 9:46 AM EDT Patient walked in requesting a referral for a program. Patient does not remember the program name. A team physician from the program told her that if she still want to be in the program she needs a referral from PCP. Please call patient with any concern or questions. documented in this encounter Plan of Treatment Upcoming Encounters Date Type Department Care Team (Late st Contact Info) Description 07/25/2025 2:00 PM EST Office Visit [facility] [address] [place] [address] Buckner, Yecenia, [facility] [address] [place] [address] 08/01/2025 2:00 PM EST Clinical Support [facility] [address] [place] [address] Kira Bansal, RN 10/04/2025 2:00 PM EST Office Visit [facility] [address] [place] [address] Akila Elizabeth, OD 230 [place] [address] documented as of this encounter Visit Diagnoses Diagnosis Multiple joint pain Pain in joint, multiple sites documented in this encounter Additional Health Concerns Assessment Noted Time PHQ-9 Depression Total Score: 8 09/02/19 11:12 AM EST documented as of this encounter Care Teams Dividend Deposit Entry Clerk Relationship Specialty Start Date End Date Radha Shah FNP [address] [place] [address] PCP - General Family Medicine 04/21/23 04/25/24 BucknerYecenia FNP [address] [place] [address] PCP - General Family Medicine 04/26/24 Colby Hirsch FNP [address] [place] [address] Nurse Practitioner Family Medicine 07/13/23 Candice Ugarte Software Sales ExecutiveGas Adjuster 12/27/23 documented as of this encounter
--- OUTSIDE RECORDS SUMMARY | 2025-07-02 18:00 | XMS_ITS | Encounter Summary ---
Author Organization [employer] Address [address] [facility] 7t [place] [address] Care Team Providers Care Crane Hoist Or Lift Operator Name Role Phone Colby Hirsch ROOFER HELPER VINYL COATING Unavailable Unavailable [facility] Primary Care Provider [phone] Reason for Visit * Reason Comments Med Refill Encounter Details Date Type Department Care Team ([facility] st Contact Info) Description 01/02/2025 Refill [facility] [address] [place], [place] [phone] [facility] 230 [place] [address] Viral upper respiratory illness Social History Tobacco [...] Description 07/25/2025 2:00 PM EST Office Visit [facility] [address] [place] [address] Yecenia Frias FNP [address] [place] [address] 08/01/2025 2:00 PM EST Clinical Support [facility] [address] [place] [address] Kira Bansal RN 10/04/2025 2:00 PM EST Office Visit [facility] [address] [place] [address] Glenn, Akila, OD 230 [place] [address] documented as of this encounter Visit Diagnoses Diagnosis Viral upper respiratory illness documented in this encounter Additional Health Concerns Assessment Noted Time PHQ-9 Depression Total Score: 0 10/24/19 25 1:15 PM EST documented as of this encounter Care Teams Crane Hoist Or Lift Operator Relationship Specialty Start Date End Date Yecenia Frias FNP 230 [place] [address] PCP - General Family Medicine 04/26/24 Colby Hirsch FNP Nurse Practitioner Family Medicine 07/13/23 Candice Ugarte Career Center DirectorGlaze Wiper 12/27/23 documented as of this encounter
--- OUTSIDE RECORDS SUMMARY | 2025-07-02 18:00 | XMS_ITS | Encounter Summary ---
Author Organization [employer] Address [address] [facility] 7t [place] [address] Care Team Providers Care General Technician Name Role Phone Marc Nicolas Primary Care Provider Unavail able Radha Shah Primary Care Provider +8 Colby Hirsch Unavailable Unavailable [facility] Primary Care Provider [phone] Reason for Visit * Reason Comments Med Refill Encounter Details Date Type Department Care Team (Late Contact Info) Description 04/08/2023 Refill [facility] [address] [place] [address] Marc Nicolas AGNP Mixed anxiety and depressive [...] Department Care Team (Late Contact Info) Description 07/25/2025 2:00 PM EST Office Visit [facility] MEDICINE [address] [place], [place] [phone] [facility] 230 [place], [place] [phone] 08/01/2025 2:00 PM EST Clinical Support [facility] MED[facility]INE [address] [place] [address] Kira Bansal RN 10/04/2025 2:00 PM EST Office Visit [facility] OPT[facility] [address] [place] [address] Glenn, Megan, OD 230 [place] [address] documented as of this encounter Visit Diagnoses Diagnosis Mixed anxiety and depressive disorder Dysthymic disorder documented in this encounter Additional Health Concerns Assessment Noted Time PHQ-9 Depression Total Score: 0 04/02/20 2:10 PM EDT documented as of this encounter Care Teams General Technician Relationship Specialty Start Date End Date Marc Nicolas AGNP PCP - General Family Medicine 10/22/22 04/20/23 Radha Shah FNP [address] [place] [address] PCP - General Family Medicine 04/21/23 04/25/24 GarvinYecenia FNP [address] [place] [address] PCP - General Family Medicine 04/26/24 Colby Hirsch FNP [address] [place] [address] Nurse Practitioner Family Medicine 07/13/23 Candice Ugarte Pan [employer] 12/27/23 documented as of this encounter
--- OUTSIDE RECORDS SUMMARY | 2025-07-02 18:00 | XMS_ITS | Encounter Summary ---
Author Organization [employer] Address [address] [facility] [address] [place] [address] Care Team Providers Care Ingredient Scaler Helper Name Role Phone Radha Shah MEDICAL SECRETARY TEACHER Primary Care Provider [phone] Colby Hirsch MEDICAL SECRETARY TEACHER Unavailable Unavailable [facility] MEDICAL SECRETARY TEACHER Primary Care Provider [phone] Reason for Visit * Reason Comments Med Refill Encounter Details Date Type Department Care Team (Late st Contact Info) Description 06/04/2023 Refill [facility] MED[facility] [address] [place] [address] Marilee Buckner FNP Multiple joint pain; Mixed [...] EST Office Visit [facility] [address] [place] [address] Yecenia Frias FNP [address] [place] [address] 08/01/2025 2:00 PM EST Clinical Support [address] [address] Kira Bansal, RN 10/04/2025 2:00 PM EST Office Visit [facility] [address] [place] [address] Akila Elizabeth, OD 230 [place] [address] documented as of this encounter Visit Diagnoses Diagnosis Multiple joint pain Pain in joint, multiple sites Mixed anxiety and depressive disorder Dysthymic disorder documented in this encounter Additional Health Concerns Assessment Noted Time PHQ-9 Depression Total Score: 0 04/02/20 2:10 PM EDT documented as of this encounter Care Teams Ingredient Scaler Helper Relationship Specialty Start Date End Date Radha Shah FNP [address] [place] [address] PCP - General Family Medicine 04/21/23 04/25/24 Yecenia Frias FNP [address] [place] [address] PCP - General Family Medicine 04/26/24 Colby Hirsch FNP [address] [place] [address] Nurse Practitioner Family Medicine 07/13/23 Candice Ugarte Health Information SpecialistCancer Genetics Assistant 12/27/23 documented as of this encounter
--- OUTSIDE RECORDS SUMMARY | 2025-07-02 18:00 | XMS_ITS | Encounter Summary ---
Author Organization [employer] Address 75 [facility] 7t [place] [address] Care Team Providers Care Medical Records Coder Name Role Phone Radha Shah WIG SALES CONSULTANT Primary Care Provider +2 Colby Hirsch Unavailable Unavailable [facility] Primary Care Provider [phone] Reason for Visit * Reason Comments Med Refill Encounter Details Date Type Department Care Team (Late st Contact Info) Description 11/24/2023 Refill [facility] [address] [place] [address] Radha Shah FNP [address] [place] [address] Multiple joint pain Social History Tobacco Use [...] Description 07/25/2025 2:00 PM EST Office Visit [facility] [address] [place] [address] Yecenia Frias FNP [address] [place] [address] 08/01/2025 2:00 PM EST Clinical Support [facility] [address] [place] [address] Kira Bansal RN 10/04/2025 2:00 PM EST Office Visit [facility] [address] [place] [address] Akila Elizabeth, OD 230 [place] [address] documented as of this encounter Visit Diagnoses Diagnosis Multiple joint pain Pain in joint, multiple sites documented in this encounter Additional Health Concerns Assessment Noted Time PHQ-9 Depression Total Score: 8 09/02/19 24 11:12 AM EST documented as of this encounter Care Teams Medical Records Coder Relationship Specialty Start Date End Date Radha Shah FNP [address] [place] [address] PCP - General Family Medicine 04/21/23 04/25/24 Yecenia Frias FNP [address] [place] [address] PCP - General Family Medicine 04/26/24 Colby Hirsch FNP [address] [place] [address] Nurse Practitioner Family Medicine 07/13/23 Candice Ugarte Patient'S LibrarianCooperage Shop Supervisor 12/27/23 documented as of this encounter
--- OUTSIDE RECORDS SUMMARY | 2025-07-02 18:00 | XMS_ITS | Clinical Summary ---
Author Organization [employer] Address [address] [facility] [address] [place] [address] Care Team Providers Care Mill Attendant Name Role Phone Colby Hirsch SUBWAY REPAIR SUPERVISOR Unavailable Unavailable [facility] SUBWAY REPAIR SUPERVISOR Primary Care Provider [phone] Allergies Active Allergy Reactions Criticality Noted Date [...] tablet 1 024 Active glucose blood test stripIndications: Type 2 diabetes mellitus without complication, with long-term current use of insulin ([facility]) 1 each by Other route 2 times daily. 100 each 12 024 Active mirtazapine (Remeron) 7.5 MG tabletIndications :Major depression with psychotic features (CMS/HCC) (HCC) Take 1 tablet (7.5 mg) by mouth at bedtime. 30 tablet 1 024 Active risperiDONE (RisperDAL) 2 MG tabletIndications :Major Depressive Disorder Take 1 tablet (2 mg) by mouth at bedtime. 30 tablet 1 024 Active Blood Glucose Monitoring Suppl (FreeStyle Lite) w/Device kitIndications:Ty pe 2 diabetes mellitus without complication, with long-term current use of insulin ([facility]) 1 Device 2 times daily. 1 kit 024 Active Alcohol Swabs (Alcohol Prep) 70 % pads USE 1 FOUR TIMES DAILY DIRECTED 200 each 11 025 Active omeprazole (PriLOSEC) [address] capsule TAKE 1 CAPSULE BY MOUTH EVERY MORNING BEFORE BREAKFAST. DO NOT BREAK, CRUSH, DISSOLVE OR CHEW. 90 capsule 3 025 Active oxymetazoline (Afrin Nasal [place]) 0.05 % nasal sprayIndications: Viral upper respiratory illness Administer 2 sprays into each nostril every 12 (twelve) hours if needed for congestion for up to 2 days. Do not use for more than 3 days. 30 mL 025 Active beta carotene (vitamin A) 3 MG (15312 UT) capsule TAKE 1 CAPSULE BY MOUTH EVERY MORNING 90 capsule 1 025 Active cyanocobalamin (Vitamin B-12) 1000 MCG tabletIndications :Other polyneuropathy TAKE 1 TABLET BY MOUTH EVERY DAY 90 tablet 025 Active naloxone (Narcan) 4 mg/0.1 mL nasal sprayIndications: Chronic midline back pain, unspecified back location FOR [...] WEEK THEREAFTER Active atorvastatin (Lipitor) 40 MG tabletIndications :Type 2 diabetes mellitus without complication, with long-term current use of insulin (HCC) Take 1 tablet (40 mg) by mouth in the morning. 90 tablet 3 025 2025 Active cholecalciferol (Vitamin D-3) 10 MCG (400 UNIT) tablet TAKE 2 TABLETS BY MOUTH EVERY DAY 180 tablet 1 Active budesonide-formot karin (Symbicort) 80-4.5 MCG/ACT inhalerIndication s:Mild intermittent asthma without complication INHALE 2 PUFFS BY MOUTH EVERY 4 TO 6 HOURS NEEDED FOR WHEEZING OR SHORTNESS OF BREATH NO MORE THAN 12 PUFFS PER DAY RINSE MOUTH AFTER USING. 10.2 g 11 Active acetaminophen (Tylenol 8 Hour) 650 MG ER tabletIndications :Sore throat,Stuffy and runny nose,Malaise,Head ache, unspecified headache type Take 1 tablet (650 mg) by mouth every 8 (eight) hours if needed for mild pain. 60 tablet 1 Active SUMAtriptan (Imitrex) 50 MG tablet [...] the affected hand 100 g 1 Active traMADol (Ultram) 50 MG tabletIndications :Multiple joint pain TAKE 1 TABLET BY MOUTH EVERY TWELVE HOURS NEEDED FOR SEVERE PAIN FOR UP TO 28 DAYS 56 tablet 025 2024 Active nitrofurantoin, macrocrystal-mono hydrate, (Macrobid) 100 MG capsule Take 1 capsule (100 mg) by mouth 2 times daily for 5 days. 10 capsule 025 2024 Active traMADol (Ultram) 50 MG [...] Sacha is currently on the waitlist for [facility]. She was informed to call next [...] support system PLAN: 1. Follow up with [facility]: Not recommended for follow-up 2. Patient goal [...] mechanism to manage sxs, provided her with [facility] Crisis number for after hrs support. [...] skills discussed in session. She will contact [facility] crisis number as needed. Patient with [...] in services PLAN: 1. Follow up with [facility]: Not recommended for follow-up 2. Patient goal [...] >60 CM >60 CM Comment: NOTE: For -[place] individuals, multiply the result by 1.210.Chronic Kidney Disease: Estimated GFR < 60 mL/min/1.44q0Prijca Kidney Disease: Estimated GFR < 15 mL/min/1.73m2 [...] >60 CM >60 CM Comment: NOTE: For -[place] individuals, multiply the result by 1.210.Chronic Kidney Disease: Estimated GFR < 60 mL/min/1.72p1Lwycmn Kidney Disease: Estimated GFR < 15 mL/min/1.73m2 [...] Date Resolved Date Chronic tonsillitis 02/13/2025 02/28/20 Viral upper respiratory tract infection 02/13/2025 02/27/2025 Left wrist pain 12/07/2024 02/27/2025 Assessment & Plan (12/07/2024 2:50 PM EDT): Diffuse pain and some episodes of tingling to left wrist >1 month. -ordered left wrist XR. -given brace. -recommended follow-up with PCP PRN. Ahumada 12/07/24 2:50 PM XR/XR wrist LT [...] psychotic features with peripartum onset, unspecified trimester ([facility]) 01/21/2023 0 01/21/2023 Schizoaffective disorder, de pressive type ([facility]) 01/21/2023 02/27/2025 Overview (02/17/2023): Diagnostic [...] in person with a female clinician in [place]. At this time Sacha Rodriguez meets criteria for Visit Diagnoses: Anxiety Disorder Unspecified Patient ready to address current needs Yes Strengths include coping mechanisms of walking and distracting self PLAN: 1. Follow up with [facility]: Not recommended for follow-up 2. Patient goal [...] retiring patient is now referred to new [facility] psychiatric provider. Pt is aware that appts will be via televisit and that provider will not be an [facility] employee. She gives permission to [...] night at bedtime (not prn). Based on [facility] notes, she appears to be taking Clonazepam [...] Encounters Date Type Department Care Team Description 07/02/2025 2:00 PM EST Office Visit [facility] [address] [place] [phone] Vaginal discharge (Primary Dx); UTI symptoms 07/02/2025 Travel 06/20/2025 Orders Only GENERIC EXTERNAL DATA DEPARTMENT Provider, Generic External Data 06/18/2025 Orders Only [facility] [address] [place] [phone] ShawYecenia FNP Vitamin A deficiency (Primary Dx) 06/17/2025 Refill [facility] [address] [place] [address] ShawYecenia FNP 06/13/2025 Travel 06/11/2025 Refill [facility] [address] [place] [phone] ShawYecenia FNP Multiple joint pain 05/22/2025 12:00 PM EDT Office Visit [address] [address] Cheryl Galan DO Paresthesia of both feet (Primary Dx); Pain of both heels; Morning headache; Type 2 diabetes mellitus without complication, with long-term current use of insulin ([facility]); Pain of left thumb 05/22/2025 Travel 05/22/2025 Telephone [facility] [address] [facility] [address] [place] [address] Yecenia Frias FNP Chart Prep 05/16/2025 Telephone [facility] [address] [place] [address] Yecenia Frias FNP telephone call 05/14/2025 Refill [facility] [address] [facility] [place] [address] Yecenia Frias FNP Multiple joint pain 05/07/2025 2:40 PM EDT Office Visit [facility] [address] [place] [address] Name, MD Tony Sore throat (Primary Dx); Stuffy and runny nose; Malaise; Headache, unspecified headache type 05/07/2025 Travel 04/30/2025 1:00 PM EDT Clinical Support [facility] [address] [facility] [place] [address] Kira Bansal RN Long-term current use of opiate analgesic (Primary Dx) 04/30/2025 Telephone [facility] [address] [facility] [place] [address] Kira Bansal RN BPI Scoring 04/30/2025 Travel 04/18/2025 Refill [facility] [address] [facility] [place] [address] Yecenia Frias FNP Arthralgia, unspecified joint 04/16/2025 Refill [facility] [address] [place] [address] Yecenia rFias SUBWAY REPAIR SUPERVISOR Multiple joint pain 04/16/2025 Refill [facility] [address] [place] [address] Yecenia Frias SUBWAY REPAIR SUPERVISOR Multiple joint pain from Last 3 Months [...] 16 07/02/2025 2:14 PM EST Oxygen Saturation 98% 05/22/2025 12:57 PM EDT Inhaled Oxygen Concentration - - Weight 87.5 kg (193 lb) 07/02/2025 2:14 PM EST Height 152.4 cm (5') 07/02/2025 2:14 PM EST Body Mass Index 37.69 07/02/2025 2:14 PM EST Plan of Treatment Upcoming Encounters Date Type Department Care Team (Late st Contact Info) Description 07/25/2025 2:00 PM EST Office Visit [facility] MEDICINE [address] [place] [address] Shaw, Yecenia, SUBWAY REPAIR SUPERVISOR [address] [place] [address] 08/01/2025 2:00 PM EST Clinical Support [facility] [address] [place] [address] Kira Bansal, MEREDITH 10/04/2025 2:00 PM EST Office Visit [facility] OPTOMETRY [address] [place] [address] Akila Elizabeth, OD [address] [place] [address] Health Maintenance Due Date Last Done Comments [...] 11/19/2025 05/22/2025, 025 SDOH Screening 01/12/2026 01/12/2025 Alcohol/Substance Use Screening 05/22/2026 05/22/2025 Disability Screening 05/22/2026 05/22/2025 Diabetes: Urine Protein Screening 06/20/2026 06/20/2025, 02/26/2025, 02/07/2024, Additional history exists Tobacco Screening 07/02/2026 07/02/2025 Eye Exam 09/14/2026 09/14/2024, 08/24, 09/14/2024, Additional [...] Routine 07/02/2025 2:23 PM EST UTI symptoms ALBUMIN, RANDOM URINE W/CREATININE Routine 06/20/2025 2:13 PM EDT HEMOGLOBIN A1C Routine 06/20/2025 11:55 AM EDT COMPREHENSIVE METABOLIC PANEL Routine 06/20/2025 11:55 AM EDT VITAMIN A Routine 06/20/2025 11:55 AM EDT Vitamin A deficiency XR FOOT 3+ VIEWS LEFT Routine 05/22/2025 1:30 PM EDT Pain of both heels XR FOOT 3+ VIEWS RIGHT Routine 05/22/2025 1:30 PM EDT Pain of both heels POCT GLYCATED HEMOGLOBIN, TOTAL Routine 05/22/2025 1:01 PM EDT Type 2 diabetes mellitus without complication, with long-term current use of insulin ([facility]) POCT GLUCOSE Routine 05/22/2025 12:59 PM EDT Type 2 diabetes mellitus without complication, with long-term current use of insulin ([facility]) POCT INFLUENZA B (ID NOW [...] EDT Long-term current use of opiate analgesic HIV 1/2 ANTIGEN/ANTIBODY, FOURTH GENERATION W/RFL Routine [...] to Health Maintenance Results * (ABNORMAL) POCT urinalysis dipstick manually resulted (CPT 97967) (07/02/2025 2:23 PM EST) Color, UA Yellow Clarity, UA Cloudy Glucose, UA Negative Bilirubin, UA Trace Comment:small Ketones, UA Positive Comment:15 Spec Grav, UA 1.020 Blood, UA Positive(A) Negative, None Detected Comment:moderate pH, UA 6.0 Protein, UA Trace Comment:100 Urobilinogen, UA 1.0 Leukocytes, UA Moderate(A) Negative, Rare, Trace Comment:large Nitrite, UA Positive(A) Negative, None Detected QC Media Lot # [id number] Lot# Expiration Date [id number] Urine (Urine, Random) 07/02/2025 2:23 PM EST us Katherinejessy Patel SUBWAY REPAIR SUPERVISOR POINT OF CARE TEST ENTER/EDIT ORDERABLES Final Result * Albumin, Random Urine W/Creatinine (06/20/2025 2:13 PM EDT) Creatinine, Urine 252.18 mg/dL [facility] Microalbumin Urine 33.0 mg/L [facility] Microalbum Creatinine Ratio Ur 13.0 <30 ug/mg cr [facility] Comment:Albumin/Creatinine R atio Reference Ranges: Normal: < 30 ug/mg creatinine Microalbuminuria: 30 - 300 ug/mg creatinineClinical Albuminuria: > 300 ug/mg creatinine 06/20/2025 2:13 PM EDT 06/20/2025 3:57 PM EDT us Generic External Data Provider LAB URINE ORDERAB LES Final Result Performing Organization Address City/State/[facility] Co de Phone Number [facility] [address] [place] [phone] * Vitamin A (06/20/2025 11:55 AM EDT) Vitamin A (Retinol) 43 38 - 98 mcg/dL [facility] Comment:Vitamin supplementat ion within 24 hours prior toblood draw may affect the accuracy of the results.This test was developed and its analytical performancecharacteristics have been determined by [employer] [place], [place]. It hasnot been cleared or approved by the U.S. Food and DrugAdministration. This assay has been validated pursuantto the CLIA regulations and is used for clinicalpurposes.THIS TEST WAS PERFORMED AT:[employer] [place] [address]DTUJZAZBLANK PICKARD MD,PHD Blood Venous blood specimen / Unknown 06/20/2025 11:55 AM EDT 06/20/2025 1:13 PM EDT [facility] SUBWAY REPAIR SUPERVISOR LAB BLOOD ORDERABLES Final Re sult Performing Organization Address [facility] Co de Phone Number [facility] [address] [place] [address] [phone] * Hemoglobin A1c (06/20/2025 11:55 AM EDT) Hemoglobin A1c 5.6 <6.0 % [facility] Comment:Hemoglobin A1C Refer ence Range Adults: 4.8 - 6.0 % Non diabetic: < 6.0 % Goal: < 7.0 %Additional Action Suggested: > 8.0 %Note: Hemoglobin A1c results are invalid for patients with abnormal amounts of HbF. Blood transfusions may impact the HbA1c concentration in the patient sample. Estimated Average Glucose 114 mg/dL [facility] Comment:eAG = Estimated ave rage glucose which is %A1C expressed asaverage glucose, using the formula of the Y7R-PgitoztWcameqs Glucose study (ADAG), Diabetes Care, Vol.31,#8,Mar. 2007 06/20/2025 11:5 5 AM EDT 06/20/2025 1:13 PM EDT Generic External Data Provider LAB BLOOD ORDERAB LES Final Result Performing Organization Address [facility]/ZIP Co de Phone Number [facility] [address] [place] [address] [phone] * (ABNORMAL) Comprehensive Metabolic Panel (06/20/2025 11:55 AM EDT) Sodium 144 135 - 145 mmol/L [facility] Potassium 3.7 3.3 - 5.1 mmol/L [facility] Chloride 112(H) 96 - 108 mmol/L [facility] Carbon Dioxide 24 22 - 29 mmol/L [facility] Anion Gap 12 12 - 20 [facility] Urea Nitrogen (BUN) 14 9 - 16 mg/dL [facility] Creatinine, Serum 0.67 0.5 - 1.4 mg/dL [facility] Estimated Glomerular Filt Rate >60 [facility] Comment:Chronic Kidney Disea se: Estimated GFR < 60 mL/min/1.38j1Szueen Kidney Disease: Estimated GFR < 15 mL/min/1.73m2 Glucose 127(H) 60 - 115 mg/dL [facility] Calcium 9.1 8.4 - 10.2 mg/dL [facility] Bilirubin, Total 0.4 0.0 - 1.0 mg/dL [facility] Aspartate Amino Transferase 28 5 - 31 U/L [facility] Alanine Aminotransferase 19 0 - 31 U/L [facility] Total Protein 7.5 6.5 - 8.0 g/dL [facility] Albumin Level 4.4 3.5 - 5.0 g/dL [facility] Alkaline Phosphatase 125(H) 39 - 117 U/L [facility] 06/20/2025 11:5 5 AM EDT 06/20/2025 1:13 PM EDT us Generic External Data Provider LAB BLOOD ORDERAB LES Final Result Performing Organization Address City/State/[facility] Co de Phone Number [facility] [address] [place] [phone] * XR Foot 3+ Views Right (05/22/2025 1:30 PM EDT) Anatomical Region Laterality Modality Lower Extremities, Foot Right Radiogra phic Imaging 05/22/2025 1:30 PM EDT Narrative 05/22/2025 1:43 PM EDT [facility] [address] [place] [address] XRay Report Signed Patient: Sacha Contreras MR#: [id number] : 1980 Acct:[id number] Age/Sex: 44 / F ADM Date: 05/22/25 [facility]: Cheryl Galan DO Ordering Physician: Cheryl Galan DO Date of Service: 05/22/25 Procedure(s): XR foot RT min 3V Accession Number(s): [id number] cc: Cheryl Galan DO Reason for Exam: [...] 05/22/25 1341 DD/ 1330 TD/TT: 05/22/25 1334 Director Global Development: Procedure Note Donotuseinterpreter, Image - 05/22/2025 [place] [address] XRay Report Signed Patient: Lai Contreras#: [id number] : 1980Acct:[id number] Age/Sex: 44 / FADM Date: 05/22/25 Loc: HO.[facility]X Attending Dr: Cheryl Galan DO Ordering Physician: Cheryl Galan DO Date of Service: 05/22/25 Procedure(s): XR foot RT min 3V Accession Number(s): [id number] cc: Cheryl Galan DO Reason for Exam: [...] 05/22/25 1341 DD/ 1330 TD/TT: 05/22/25 1334 Director Global Development: Cheryl Galan DO IMG XR PROCEDURES Final Resu lt * XR Foot 3+ Views Left (05/22/2025 1:30 PM EDT) Anatomical Region Laterality Modality Lower Extremities, Foot Left Radiogra phic Imaging 05/22/2025 1:30 PM EDT Narrative 05/22/2025 1:42 [place] [address] XRay Report Signed Patient: Sacha Contreras MR#: [id number] : 1980 Acct:[id number] Age/Sex: 44 / F ADM Date: 05/22/25 Loc: HO.[facility]X Attending Dr: Cheryl Galan DO Ordering Physician: Cheryl Galan DO Date of Service: 05/22/25 Procedure(s): XR foot LT min 3V Accession Number(s): [id number] cc: Cheryl Galan DO Reason for Exam: [...] Castaneda MD in OV> 05/22/25 1340 DD/ 29 TD/TT: 05/22/251333 Director Global Development: Procedure Note Sima, Image - 05/22/[address] [address] XRay Report Signed Patient: Xavier ContrerasR#: [id number] : 1980Acct:[id number] Age/Sex: 44 / FADM Date: 05/22/25 [facility]: Cheryl Galan DO Ordering Physician: Cheryl Galan DO Date of Service: 05/22/25 Procedure(s): XR foot LT min 3V Accession Number(s): [id number] cc: Cheryl Galan DO Reason for Exam: [...] OV> 05/22/25 1340 DD/ 1330 TD/TT: 05/22/251333 Director Global Development: Cheryl Galan DO IMG XR PROCEDURES Final [...] specimen / Unknown 05/22/2025 12:59 PM EDT Result [facility] Cheryl Adama DO POINT OF CARE TEST ENTER/SANCHO T ORDERABLES Final Result * POCT Rapid Influenza B BALL ID NOW (05/07/2025 2:59 PM EDT) Influenza B Negative Negative, Indeterminate [facility] QC Media Lot # [id number] [facility] Lot# Expiration Date [facility] Swab 05/07/2025 2:59 PM EDT us Tony Haywood MD POINT OF CARE TEST ENTER/EDIT OR DERABLES Final Result Performing Organization Address [facility]/ZIP Co de Phone Number [facility] [address] [place] [phone] * POCT Rapid Influenza A BALL ID NOW (05/07/2025 2:59 PM EDT) Influenza A Negative Negative, Indeterminate [facility] QC Media Lot # [id number] [facility] Lot# Expiration Date [facility] Swab 05/07/2025 2:59 PM EDT us Tony Haywood MD POINT OF CARE TEST ENTER/EDIT OR DERABLES Final Result [facility] [address] [place] [phone] * POCT Rapid Covid-19 BinaxNOW (05/07/2025 2:58 PM EDT) [facility] Rapid COVID Ag Negative QC Media Lot # [id number] Lot# Expiration Date 8326 Swab 05/07/2025 2:58 PM EDT Tony Haywood MD POINT OF CARE TEST ENTER/EDIT OR DERABLES Final Result * POCT Rapid Strep A BALL ID NOW (05/07/2025 2:57 PM EDT) [facility] Rapid Strep A Screen Negative Negative, None Detected QC Media Lot # [id number] Lot# Expiration Date 22 Swab 05/07/2025 2:57 PM EDT Tony Haywood MD POINT OF CARE TEST ENTER/EDIT OR DERABLES Final Result * POCT CASSI-14 Urine Drug Screen (04/30/2025 12:21 PM EDT) [facility] THC Negative Negative Cocaine Screen, Urine Negative [...] - 04/30/2025 12:21 PM EDT UTOX cup Lot#[id number] Exp. 05/29/26 Internal Pass Control [facility] SUBWAY REPAIR SUPERVISOR POINT OF CARE TEST ENTER/EDIT ORDERABLES Final Result * HIV-1/2 Antigen and Antibodies, Fourth Generation, with Reflexes (10/23/2024 2:05 PM EST) HIV AB/AG Nonreactive Nonreactive [facility] Comment:HIV-1 p24 Ag and/or HIV-1/HIV-2 Ab not detected.A test result that is nonreactive does not exclude thepossibility of exposure to or infection with HIV-1 and/orHIV-2. Nonreactive results in this assay for individualswith prior exposure to HIV-1 and/or HIV-2 may be due toantigen and antibody levels that are below the limit ofdetection of this assay.The Cert[employer] HIV Ag/Ab Combo assay result andsupplemental assay results should be interpreted inconjunction with the patient's clinical presentation,history and other laboratory results. If the results areinconsistent with clinical evidence, additional testing issuggested to confirm the result. Blood Venous blood specimen / Unknown 10/23/2024 2:05 PM EST 10/23/2024 4:20 PM EST [facility] SUBWAY REPAIR SUPERVISOR LAB BLOOD ORDERABLES Final Re sult [facility] [address] [place] [phone] * (ABNORMAL) Lipid Panel, Standard (09/25/2024 1:22 PM EST) Triglycerides 109 <150 mg/dL [facility] Comment:Desirable Triglyceri de: less than 150 mg/dLBorderline High Triglyceride 150-199 mg/dLHigh Triglyceride: 200-499 mg/dLVery High Triglyceride: greater than or equal to 5OO mg/dL Cholesterol 128 <200 mg/dL [facility] Comment:Desirable Cholestero l: less than 200 mg/dLBorderline High Cholesterol: 200-239 mg/dLHigh Cholesterol: greater than 239 mg/dL LDL Cholesterol Calculated 71 <100 mg/dL [facility] Comment:Desirable LDL: less than 100 [...] Provider LAB BLOOD ORDERAB LES Final Result [facility] [address] [place] [phone] * BI Mammogram Screening Tomosynthesis Bilateral (11/16/2023 1:25 PM EDT) Anatomical Region Laterality Modality Breast Bilateral Mammography 11/16/2023 1:25 PM EDT Narrative 12/02/2023 6:15 AM EDT [facility] [address] [place] [address] Mammography Report Signed Patient: Sacha Contreras MR#: [id number] : 1980 Acct:[id number] Age/Sex: 42 / F ADM Date: 11/16/23 Loc: HO.MAMMO Attending Dr: Radha Shah NP Ordering Physician: Radha Shah NP Results: 1Negativ e Date of Service: 11/16/23 Follow Up: 1 Year From [facility] Mammogram Procedure(s): MM tomosynthesis screening BI Accession Number(s): [id number] cc: Radha Shah NP EXAMINATION: MM SCREENING [...] in OV> 12/02/23 0611 DD/ 1325 TD/TT: Director Global Development: Procedure Note Donotuseinterpreter, Image - 12/02/2023 [facility] [address] [place] [address] Mammography Report Signed Patient: Xavier ContrerasR#: [id number] : 1980Acct:[id number] Age/Sex: 42 / FADM Date: 11/16/23 Loc: HO.MAMMO Attending Dr: Radha Shah NP Ordering Physician: Radha Shah NPResults: 1Negativ e Date of Service: 11/16/23Follow Up: 1 Year From Orig inal Mammogram Procedure(s): MM tomosynthesis screening BI Accession Number(s): [id number] cc: Radha Shah NP EXAMINATION: MM SCREENING [...] in OV> 12/02/23 0611 DD/ 1325 TD/TT: Director Global Development: Radha Shah SUBWAY REPAIR SUPERVISOR IMG BI PROCEDURES Final Result * (ABNORMAL) Hepatitis Panel, General (02/22/2023 1:46 PM EDT) Hepatitis A Antibody Total REACTIVE( A) NON-REACT [facility] Comment: For additional information, please refer to [email or web address]/faq/[email or web address] (This link is being provided for informational/ educational purposes only.) Hepatitis B Surface Antibody QL REACTIVE( A) NON-REACT [facility] Hepatitis B Surface Ag NON-REACT [facility] NON-REACT [facility] Health Comment: For additional information, please refer to http://Finalta/faq/NRK920 (This link is being provided for informational/ educational purposes only.) Hepatitis B Core Antibody Total NON-REACT TAWNYA NON-REACT TAWNYA [facility] Comment: For additional information, please refer to http://Finalta/faq/GQG493 (This link is being provided for informational/ educational purposes only.) Hepatitis C Antibody NON-REACT TAWNYA NON-REACT TAWNYA [facility] Comment: HCV antibody was non-reactive. There is no laboratory evidence of HCV infection. In most cases, no further action is required. However, if recent HCV exposure is suspected, a test for HCV RNA (test code 90461) is suggested. For additional information please refer to http://Finalta/faq/TMZ37j0 (This link is being provided for informational/ educational purposes only.) 02/22/2023 1:46 PM EDT 02/22/2023 1:46 PM EDT Narrative [facility] - 02/26/2023 7:51 PM EDT FASTING:NO FASTING: NO Marc [facility] BLOOD ORDERABLES Final Res ult [facility] [address] [facility], [facility], [place] [address] [facility] [address] [place] [address] from Last 3 Months or Most Recently Relevant to Health Maintenance [place] [address] [place] [address] [facility] MEDICAID STAND ADULT Care Teams Mill Attendant Relationship Specialty Start Date End Date Yecenia Frias FNP [address] [place] [address] PCP - General Family Medicine 04/26/24 Colby Hirsch FNP Nurse Practitioner Family Medicine 07/13/23 Candice Ugarte Manager MetrologyMolder Punch 12/27/23
--- OUTSIDE RECORDS SUMMARY | 2025-07-02 18:00 | XMS_ITS | Encounter Summary ---
Author Organization [employer] Address [address] [employer] 7t [place] [address] Care Team Providers Care Sterile Tech Name Role Phone Ruth Hoffmann WEB ANALYTICS DEVELOPER Primary Care Provider Marc Nava Primary Care Provider Unavail able Radha Shah WEB ANALYTICS DEVELOPER Primary Care Provider [phone] Colby HirschP Unavailable Unavailable [facility] WEB ANALYTICS DEVELOPER Primary Care Provider [phone] Reason for Visit * Reason Onset Date Comments Appointment Request 10/01/2022 Encounter Details Date Type Department Care Team (Late st Contact Info) Description 10/01/2022 Telephone [facility] [address] [place] [address] Ruth Hoffmann FNP Appointment Request Social History [...] Description 07/25/2025 2:00 PM EST Office Visit [facility] [address] [place] [address] Yecenia Frias FNP 230 [place] [address] 08/01/2025 2:00 PM EST Clinical Support [facility] [address] [place] [address] Kira Bansal RN 10/04/2025 2:00 PM EST Office Visit [facility] [address] [place] [address] Akila Elizabeth, OD 230 [place] [address] documented as of this encounter Visit Diagnoses Not on filedocumented in this encounter Care Teams Sterile Tech Relationship Specialty Start Date End Date Ruth Hoffmann FNP PCP - General Family Medicine 07/21/22 10/21/22 Marc Nicolas AGNP PCP - General Family Medicine 10/22/22 04/20/23 Radha Shah FNP [address] [place] [address] PCP - General Family Medicine 04/21/23 04/25/24 Yecenia Frias FNP [address] [place] [address] PCP - General Family Medicine 04/26/24 Colby Hirsch FNP [address] [place] [address] Nurse Practitioner Family Medicine 07/13/23 Candice Ugarte Whistle PunkCement Sprayer Helper 12/27/23 documented as of this encounter
--- OUTSIDE RECORDS SUMMARY | 2025-07-02 18:00 | XMS_ITS | Encounter Summary ---
Author Organization [employer] Address [address] [facility] [address] 7t [place] [address] Care Team Providers Care Case Packer And Sealer Name Role Phone Marc Nicolas Primary Care Provider Unavail able Radha Shah WET POUR SUPERVISOR Primary Care Provider [phone] Colby Hirsch Unavailable Unavailable [facility] WET POUR SUPERVISOR Primary Care Provider Reason for Visit * Reason Onset Date Comments Referral 01/26/2023 Encounter Details Date Type Department Care Team (Late st Contact Info) Description 01/26/2023 Telephone [facility] MED[facility]INE [address] [place] [address] Marc Nicolas AGNP Referral Social History Tobacco [...] Description 07/25/2025 2:00 PM EST Office Visit [facility] [address] [place] [address] Yecenia Frias FNP 230 [place] [address] 08/01/2025 2:00 PM EST Clinical Support [facility] [address] [place] [address] Kira Bansal RN 10/04/2025 2:00 PM EST Office Visit [facility] [address] [place] [address] Akila Elizabeth, OD [address] [place] [address] documented as of this encounter Visit Diagnoses Not on filedocumented in this encounter Additional Health Concerns Assessment Noted Time PHQ-9 Depression Total Score: 19 023 3:57 PM EDT documented as of this encounter Care Teams Case Packer And Sealer Relationship Specialty Start Date End Date Marc Nicolas AGNP PCP - General Family Medicine 10/22/22 04/20/23 Radha Shah FNP [address] [place] [address] PCP - General Family Medicine 04/21/23 04/25/24 CreteYecenia whipple FNP [address] [place] [address] PCP - General Family Medicine 04/26/24 Colby Hirsch FNP [address] [place] [address] Nurse Practitioner Family Medicine 07/13/23 Candice Ugarte DialerYeast Pusher 12/27/23 documented as of this encounter
--- OUTSIDE RECORDS SUMMARY | 2025-07-02 18:00 | XMS_ITS | Encounter Summary ---
Author Organization [employer] Address [address] [facility] 7t [place] [address] Care Team Providers Care Water Pollution Control Technician Name Role Phone Marc Nicolas Primary Care Provider Unavail able Radha Shah Primary Care Provider [phone] Colby Hirsch Unavailable Unavailable [facility] Primary Care Provider [phone] Reason for Visit * Reason Comments Med Refill Encounter Details Date Type Department Care Team (Late st Contact Info) Description 04/08/2023 Refill [facility] [address] [place], [place] [phone] Marc Nicolas AGNP Schizoaffective disorder, depressive type [...] Description 07/25/2025 2:00 PM EST Office Visit [facility] [address] [place], [place] [phone] [facility] 230 [place] [address] 08/01/2025 2:00 PM EST Clinical Support [facility] [address] [place] [address] Kira Bansal, RN 10/04/2025 2:00 PM EST Office Visit [facility] OPTOMET[facility] [address] [place] [address] Akila Elizabeth, OD 230 [place] [address] documented as of this encounter Visit Diagnoses Diagnosis Schizoaffective disorder, depressive type (CMS/HCC) (HCC) Schizoaffective disorder, unspecified condition Mixed anxiety and depressive disorder Dysthymic disorder documented in this encounter Additional Health Concerns Assessment Noted Time PHQ-9 Depression Total Score: 0 04/02/20 2:10 PM EDT documented as of this encounter Care Teams Water Pollution Control Technician Relationship Specialty Start Date End Date Marc Nicolas AGNP PCP - General Family Medicine 10/22/22 04/20/23 Radha Shah FNP [address] [place] [address] PCP - General Family Medicine 04/21/23 04/25/24 ElberfeldYecenia FNP 230 [place] [address] PCP - General Family Medicine 04/26/24 Colby Hirsch FNP [address] [place] [address] Nurse Practitioner Family Medicine 07/13/23 Candice Ugarte Semiconductor Wafers Etch OperatorRegulatory Affairs Strategy Specialist 12/27/23 documented as of this encounter
--- OUTSIDE RECORDS SUMMARY | 2025-07-02 18:00 | XMS_ITS | Encounter Summary ---
Author Organization [employer] Address [address] [facility] 7t [place] [address] Care Team Providers Care Regional Sales Associate Name Role Phone Colby Hirsch NEONATAL SOCIAL WORKER Unavailable Unavailable [facility] Primary Care Provider [phone] Reason for Visit * Reason Comments Med Refill Encounter Details Date Type Department Care Team ([facility] st Contact Info) Description 04/18/2025 Refill [facility] MEDICINE [address] [place] [address] [facility] 230 [place] [address] Arthralgia, unspecified joint Social History Tobacco Use [...] 07/25/2025 2:00 PM EST Office Visit [facility]INE [address] [place] [address] Yecenia Frias FNP [address] [place] [address] 08/01/2025 2:00 PM EST Clinical Support [facility] [address] [place] [address] Kira Bansal RN 10/04/2025 2:00 PM EST Office Visit [facility] OPTOMET[facility] [address] [place] [address] Akila Elizabeth, OD 230 [place] [address] documented as of this encounter Visit Diagnoses Diagnosis Arthralgia, unspecified joint documented in this encounter Additional Health Concerns Assessment Noted Time PHQ-9 Depression Total Score: 0 02/27/20 25 10:29 AM EDT documented as of this encounter Care Teams Regional Sales Associate Relationship Specialty Start Date End Date Yecenia Frias FNP 230 [place] [address] PCP - General Family Medicine 04/26/24 Colby Hirsch FNP Nurse Practitioner Family Medicine 07/13/23 Candice Ugarte Tube Mill OperatorDry Roaster 12/27/23 documented as of this encounter
--- OUTSIDE RECORDS SUMMARY | 2025-07-02 18:00 | XMS_ITS | Encounter Summary ---
Author Organization [employer] Address [address] [facility] 7t [place] [address] Care Team Providers Care Stock Handler Name Role Phone Colby Hirsch FRIT MIXER Unavailable Unavailable [facility] FRIT MIXER Primary Care Provider [phone] Encounter Details Date Type Department Care Team (Latest Contact Info) Description 07/02/2025 Travel Social History Tobacco Use Types Packs/Day [...] 07/25/2025 2:00 PM EST Office Visit [facility] MEDICINE [address] [place] [address] AddystonYecenia FNP 230 [place] [address] 08/01/2025 2:00 PM EST Clinical Support [facility] MEDICINE [address] [place] [address] Kira Bansal, MEREDITH 10/04/2025 2:00 PM EST Office Visit [facility] OPTOMETRY [address] [place] [address] Akila Elizabeth, OD [address] [place] [address] documented as of this encounter Visit Diagnoses Not on filedocumented in this encounter Additional Health Concerns Assessment Noted Time PHQ-9 Depression Total Score: 10 025 1:53 PM EDT documented as of this encounter Care Teams Stock Handler Relationship Specialty Start Date End Date AddystonYecenia FNP [address] [place] [address] PCP - General Family Medicine 04/26/24 Colby Hirsch FNP Nurse Practitioner Family Medicine 07/13/23 Candice Ugarte MapperSupervisor Assembly Room 12/27/23 documented as of this encounter
--- OUTSIDE RECORDS SUMMARY | 2025-07-02 18:00 | XMS_ITS | Encounter Summary ---
Author Organization [employer] Address [address] [facility] 7t [place] [address] Care Team Providers Care Vapor Coater Name Role Phone Radha Shah CUFF CUTTER Primary Care Provider [phone] Colby Hirsch Unavailable Unavailable [facility] Primary Care Provider [phone] Reason for Visit * Reason Comments Med Refill Encounter Details Date Type Department Care Team (Late st Contact Info) Description 04/12/2024 Refill [facility]INE [address] [place] [address] Radha Shah FNP [address] [place] [address] Multiple joint pain Social History Tobacco Use [...] Description 07/25/2025 2:00 PM EST Office Visit [facility]INE [address] [place] [address] TrentonYecenia FNP [address] [place] [address] 08/01/2025 2:00 PM EST Clinical Support [facility] [address] [place], [place] [phone] Kira Bansal, MEREDITH 10/04/2025 2:00 PM EST Office Visit [facility]OM[facility] [address] [place], [place] [address] Akila Elizabeth, OD [address] [place] [address] documented as of this encounter Visit Diagnoses Diagnosis Multiple joint pain Pain in joint, multiple sites documented in this encounter Additional Health Concerns Assessment Noted Time PHQ-9 Depression Total Score: 7 03/07/20 24 10:13 AM EDT documented as of this encounter Care Teams Vapor Coater Relationship Specialty Start Date End Date Radha Shah FNP [address] [place], [place] PCP - General Family Medicine 04/21/23 04/25/24 TrentonYecenia FNP [address] [place], [place] PCP - General Family Medicine 04/26/24 Colby Hirsch FNP [address] [place] [address] Nurse Practitioner Family Medicine 07/13/23 Candice Ugarte Blade ChangerHat Finishing Materials Preparer 12/27/23 documented as of this encounter
--- OUTSIDE RECORDS SUMMARY | 2025-07-02 18:00 | XMS_ITS | Encounter Summary ---
Author Organization [employer] Address [address] [facility] 7t [place] [address] Care Team Providers Care Open Hearth Melter Name Role Phone Marc Nicolas Primary Care Provider Unavail able Radha Shah NET FISHER Primary Care Provider [phone] Colby Hirsch Unavailable Unavailable [facility] NET FISHER Primary Care Provider [phone] Reason for Visit * Reason Onset Date Comments Results 04/09/2023 Encounter Details Date Type Department Care Team (Late st Contact Info) Description 04/09/2023 Telephone [facility] MEDICINE [address] [place] [address] Marc Nicolas AGNP Results Social History Tobacco [...] AM EDT FYI T/C to pt. Through [place] id - [id number] for below message. Pt. States she is having apt. With Dr. Sims on 05/03/2023 and wants to discuss on that day. Pt. Advised to give call back on [phone] if any questions or concerns. Pt. Verbally agreed and understood. Please review and advise if needed. * Telephone Encounter - Romeo Guido Child - 04/09/2023 12:19 PM EDT Tc from pt requesting status on results for Liver that were done a moth ago pt states. Please contact pt at [phone] Lao Speaker documented in this encounter Plan of Treatment Upcoming Encounters Date Type Department Care Team (Late st Contact Info) Description 07/25/2025 2:00 PM EST Office Visit [facility] MEDICINE [address] [place] [address] Yecenia Frias FNP 230 [place] [address] 08/01/2025 2:00 PM EST Clinical Support [facility] MEDICINE [address] [place] [address] Kira Bansal RN 10/04/2025 2:00 PM EST Office Visit [facility] OPTOMETRY [address] [place] [address] Akila Elizabeth, OD 230 [place] [address] documented as of this encounter Visit Diagnoses Not on filedocumented in this encounter Additional Health Concerns Assessment Noted Time PHQ-9 Depression Total Score: 0 04/02/20 23 2:10 PM EDT documented as of this encounter Care Teams Open Hearth Melter Relationship Specialty Start Date End Date Marc Nicolas AGNP PCP - General Family Medicine 10/22/22 04/20/23 Radha Shah FNP [address] [place] [address] PCP - General Family Medicine 04/21/23 04/25/24 TucsonYecenia whipple FNP [address] [place] [address] PCP - General Family Medicine 04/26/24 Colby Hirsch FNP [address] [place] [address] Nurse Practitioner Family Medicine 07/13/23 Candice Ugarte Report ManagerTelevision Agent 12/27/23 documented as of this encounter
--- OUTSIDE RECORDS SUMMARY | 2025-07-02 18:01 | XMS_ITS | Encounter Summary ---
Author Organization [employer] Address [address] [facility] 7t [place] [address] Care Team Providers Care Color Checker Roving Or Yarn Name Role Phone Marc Nicolas Primary Care Provider Unavail able Radha Shah Primary Care Provider [phone] Colby Hirsch Unavailable Unavailable [facility] HUMAN RESOURCE INTERN Primary Care Provider [phone] Reason for Visit * Reason Onset Date Comments Med Refill 03/16/2023 Encounter Details Date Type Department Care Team (Late st Contact Info) Description 03/16/2023 Telephone [facility] MEDICINE [address] [place] [address] Marc Nicolas AGNP Med Refill Social History [...] 03/16/2023 3:56 PM EDT Pt scheduled for SEO EXPERT RV 03/17/23 @ 10am. Tramadol refill due 03/19/23, Clonazepam refill due 03/18/23.Will forward request to PCP after SEO EXPERT appt 03/17/23. * Telephone Encounter - Natividad Rio - 03/16/2023 3:36 PM EDT Tc from pt requesting medication refill on traMADol (Ultram) 50 MG tablet and clonazePAM (KlonoPIN)0.5 MG tablet documented in this encounter Plan of Treatment Upcoming Encounters Date Type Department Care Team (Late st Contact Info) Description 07/25/2025 2:00 PM EST Office Visit [facility] MEDICINE [address] [place] [address] Yecenia Frias FNP 230 [place] [address] 08/01/2025 2:00 PM EST Clinical Support [facility] MEDICINE [address] [place] [address] Kira Bansal, MEREDITH 10/04/2025 2:00 PM EST Office Visit [facility] OPTOMETRY [address] [place] [address] Glenn, Akila, OD 230 [place] [address] documented as of this encounter Visit Diagnoses Not on filedocumented in this encounter Additional Health Concerns Assessment Noted Time PHQ-9 Depression Total Score: 13 023 3:27 PM EDT documented as of this encounter Care Teams Color Checker Roving Or Yarn Relationship Specialty Start Date End Date Marc Nicolas AGNP PCP - General Family Medicine 10/22/22 04/20/23 Radha Shah FNP [address] [place] [address] PCP - General Family Medicine 04/21/23 04/25/24 CameronYecenia FNP [address] [place] [address] PCP - General Family Medicine 04/26/24 Colby Hirsch FNP [address] [place] [address] Nurse Practitioner Family Medicine 07/13/23 Candice Ugarte Cupola ChargerBulk Cooler Installer 12/27/23 documented as of this encounter
--- OUTSIDE RECORDS SUMMARY | 2025-07-02 18:01 | XMS_ITS | Encounter Summary ---
Author Organization [employer] Address [address] [facility] 7t [place] [address] Care Team Providers Care Executive Chef Name Role Phone Radha Shah COOK MAYONNAISE Primary Care Provider + Colby Hirsch Unavailable Unavailable [facility] Primary Care Provider [phone] Reason for Visit * Reason Comments Med Refill Encounter Details Date Type Department Care Team (Late st Contact Info) Description 02/16/2024 Refill [facility] MEDICINE 230 [place] [address] Radha Shah FNP 230 [place] [address] Multiple joint pain Social History Tobacco Use [...] 2:00 PM EST Office Visit [facility] MEDICINE 230 [place] [address] Yecenia Frias FNP 230 [place] [address] 08/01/2025 2:00 PM EST Clinical Support [facility] MEDICINE 230 [place] [address] Kira Bansal RN 10/04/2025 2:00 PM EST Office Visit [facility] OPTOMETRY [address] [place] [address] Glenn, Akila, OD 230 [place] [address] documented as of this encounter Visit Diagnoses Diagnosis Multiple joint pain Pain in joint, multiple sites documented in this encounter Additional Health Concerns Assessment Noted Time PHQ-9 Depression Total Score: 6 12/28/19 24 11:17 AM EDT documented as of this encounter Care Teams Executive Chef Relationship Specialty Start Date End Date Radha Shah FNP 230 [place] [address] PCP - General Family Medicine 04/21/23 04/25/24 Yecenia Frias FNP 230 [place] [address] PCP - General Family Medicine 04/26/24 Colby Hirsch FNP 230 [place] [address] Nurse Practitioner Family Medicine 07/13/23 Candice Ugarte Help Desk Support SpecialistDisability Program Navigator 12/27/23 documented as of this encounter
--- OUTSIDE RECORDS SUMMARY | 2025-07-02 18:01 | XMS_ITS | Encounter Summary ---
Author Organization [employer] Address [address] [facility] 7t [place] [address] Care Team Providers Care Envelope Maker Name Role Phone Radha Shah GLASS VIAL FILLER Primary Care Provider [phone] Colby Hirsch Unavailable Unavailable [facility] Primary Care Provider [phone] Encounter Details Date Type Department Care Team (Late st Contact Info) Description 02/17/2024 Community Care Management [facility] MEDICINE [address] [place] [address] Radha Shah FNP [address] [place] [address] Social History Tobacco Use Types Packs/Day Years [...] Description 07/25/2025 2:00 PM EST Office Visit [facility] MEDICINE [address] [place] [address] Yecenia Frias FNP 230 [place] [address] 08/01/2025 2:00 PM EST Clinical Support [facility] MEDICINE [address] [place] [address] Kira Bansal RN 10/04/2025 2:00 PM EST Office Visit [facility] OPTOMETRY [address] [place] [address] Glenn, Akila, OD 230 [place] [address] documented as of this encounter Visit Diagnoses Not on filedocumented in this encounter Additional Health Concerns Assessment Noted Time PHQ-9 Depression Total Score: 6 12/28/19 24 11:17 AM EDT documented as of this encounter Care Teams Envelope Maker Relationship Specialty Start Date End Date Radha Shah FNP [address] [place] [address] PCP - General Family Medicine 04/21/23 04/25/24 Yecenia Frias FNP [address] [place] [address] PCP - General Family Medicine 04/26/24 Colby Hirsch FNP [address] [place] [address] Nurse Practitioner Family Medicine 07/13/23 Candice Ugarte Check Out CashierBookkeeper 12/27/23 documented as of this encounter
--- OUTSIDE RECORDS SUMMARY | 2025-07-02 18:01 | XMS_ITS | Encounter Summary ---
Author Organization [employer] Address 75 [facility] 7t [place] [address] Care Team Providers Care Cable Technician Name Role Phone PabloDanymargie CASEY Primary Care Provider [phone] Colby Hirsch Unavailable Unavailable [facility] Primary Care Provider [phone] Reason for Visit * Reason Comments Med Refill Encounter Details Date Type Department Care Team (Late st Contact Info) Description 01/04/2024 Refill [facility] MEDICINE [address] [place] [address] Colby Hirsch FNP Social History Tobacco Use [...] Description 07/25/2025 2:00 PM EST Office Visit [facility] MEDICINE [address] [place] [address] AltagraciaYecenia whipple FNP [address] [place] [address] 08/01/2025 2:00 PM EST Clinical Support [facility] MEDICINE [address] [place] [address] Kira Bansal, MEREDITH 10/04/2025 2:00 PM EST Office Visit [facility] OPTOMETRY [address] [place] [address] Glenn, Akila, OD 230 [place] [address] documented as of this encounter Visit Diagnoses Not on filedocumented in this encounter Additional Health Concerns Assessment Noted Time PHQ-9 Depression Total Score: 6 12/28/19 24 11:17 AM EDT documented as of this encounter Care Teams Cable Technician Relationship Specialty Start Date End Date Radha Shah FNP [address] [place] [address] PCP - General Family Medicine 04/21/23 04/25/24 AltagraciaYecenia whipple FNP [address] [place] [address] PCP - General Family Medicine 04/26/24 Colby Hirsch FNP [address] [place] [address] Nurse Practitioner Family Medicine 07/13/23 Candice Ugarte Fiberglass Model MakerPitch Flaker 12/27/23 documented as of this encounter
--- OUTSIDE RECORDS SUMMARY | 2025-07-02 18:01 | XMS_ITS | Encounter Summary ---
Author Organization [employer] Address 75 [facility] 7t [place] [address] Care Team Providers Care Band Machine Operator Name Role Phone Radha Shah SENIOR PREMIUM AUDITOR Primary Care Provider [phone] Colby Hirsch SENIOR PREMIUM AUDITOR Unavailable Unavailable [facility] SENIOR PREMIUM AUDITOR Primary Care Provider [phone] Reason for Visit * Reason Onset Date Comments Results 02/16/2024 Care Coordination 02/16/[address] Kelly joshua telephone call outreached Encounter Details Date Type Department Care Team ([facility] Contact Info) Description 02/16/2024 Telephone [facility] MEDICINE [address] [place] [address] Radha Shah FNP [address] [place] [address] Results; Care Coordination ([id number] Obrien telephone call outreached) Social History Tobacco [...] Date when done: 02/06 Facility: [facility] Please contact pt at [phone] documented in this encounter Plan of Treatment Upcoming Encounters Date Type Department Care Team (Late st Contact Info) Description 07/25/2025 2:00 PM EST Office Visit [facility] MEDICINE [address] [place] [address] Yecenia Frias FNP [address] [place] [address] 08/01/2025 2:00 PM EST Clinical Support [facility] [address] [place] [address] Kira Bansal, MEREDITH 10/04/2025 2:00 PM EST Office Visit [facility] OPTOMETRY [address] [place] [address] Glenn, Akila, OD 230 [place] [address] documented as of this encounter Visit Diagnoses Not on filedocumented in this encounter Additional Health Concerns Assessment Noted Time PHQ-9 Depression Total Score: 6 12/28/19 24 11:17 AM EDT documented as of this encounter Care Teams Band Machine Operator Relationship Specialty Start Date End Date Radha Shah FNP [address] [place] [address] PCP - General Family Medicine 04/21/23 04/25/24 [place] Real[place]ecenia whipple FNP [address] [place] [address] PCP - General Family Medicine 04/26/24 Colby Hirsch FNP [address] [place] [address] Nurse Practitioner Family Medicine 07/13/23 Candice Ugarte Project LeadOxygen Plant Operator 12/27/23 documented as of this encounter
--- OUTSIDE RECORDS SUMMARY | 2025-07-02 18:01 | XMS_ITS | Encounter Summary ---
Author Organization [employer] Address [address] [facility] 7t [place] [address] Care Team Providers Care Ripshear Operator Name Role Phone Radha Shah CARDIOPULMONARY TECHNOLOGIST CHIEF Primary Care Provider [phone] Colby Hirsch CARDIOPULMONARY TECHNOLOGIST CHIEF Unavailable Unavailable [facility] CARDIOPULMONARY TECHNOLOGIST CHIEF Primary Care Provider [phone] Reason for Visit * Reason Comments Med Refill Encounter Details Date Type Department Care Team (Late st Contact Info) Description 06/16/2023 Refill [facility] MEDICINE [address] [place] [address] Marc Nicolas AGNP Pain Social History Tobacco [...] Description 07/25/2025 2:00 PM EST Office Visit [facility] MEDICINE [address] [place] [address] PenobscotYecenia FNP 230 [place] [address] 08/01/2025 2:00 PM EST Clinical Support [facility] MEDICINE [address] [place] [address] Kira Bansal RN 10/04/2025 2:00 PM EST Office Visit [facility] OPTOMETRY [address] [place] [address] Glenn, Akila, OD 230 [place] [address] documented as of this encounter Visit Diagnoses Diagnosis Pain Generalized pain documented in this encounter Additional Health Concerns Assessment Noted Time PHQ-9 Depression Total Score: 6 06/15/20 23 10:23 AM EDT documented as of this encounter Care Teams Ripshear Operator Relationship Specialty Start Date End Date Radha Shah FNP [address] [place] [address] PCP - General Family Medicine 04/21/23 04/25/24 PenobscotYecenia FNP [address] [place] [address] PCP - General Family Medicine 04/26/24 Colby Hirsch FNP [address] [place] [address] Nurse Practitioner Family Medicine 07/13/23 Candice Ugarte Supply ManagerIndustrial Real Estate Agent 12/27/23 documented as of this encounter
--- OUTSIDE RECORDS SUMMARY | 2025-07-02 18:01 | XMS_ITS | Encounter Summary ---
Author Organization [employer] Address 75 [facility] 7t [place] [address] Care Team Providers Care Sparmaker Name Role Phone Colby Hirsch FRONT OFFICE HELP Unavailable Unavailable [facility] Primary Care Provider [phone] Reason for Visit * Reason Comments Med Refill Encounter Details Date Type Department Care Team ([facility] st Contact Info) Description 10/31/2024 Refill [facility] MEDICINE [address] [place], [place] [phone] [facility] 230 [place] [address] Type 2 diabetes mellitus without complication, with long-term current use of insulin ([facility]) Social History Tobacco Use Types Packs/Day [...] Description 07/25/2025 2:00 PM EST Office Visit [facility] MEDICINE [address] [place] [address] Altagracia, Yecenia, FRONT OFFICE HELP 230 [place] [address] 08/01/2025 2:00 PM EST Clinical Support [facility] MEDICINE [address] [place] [address] Kira Bansal, MEREDITH 10/04/2025 2:00 PM EST Office Visit [facility] OPTOMETRY [address] [place] [address] Akila Elizabeth, OD 230 [place] [address] documented as of this encounter Visit Diagnoses Diagnosis Type 2 diabetes mellitus without complication, with long-term current use of insulin (HCC) documented in this encounter Additional Health Concerns Assessment Noted Time PHQ-9 Depression Total Score: 0 10/24/19 25 1:15 PM EST documented as of this encounter Care Teams Sparmaker Relationship Specialty Start Date End Date Yeceina Frias FNP [address] [place] [address] PCP - General Family Medicine 04/26/24 Colby Hirsch FNP Nurse Practitioner Family Medicine 07/13/23 Candice Ugarte Warehouse TrainerCollection Administrator 12/27/23 documented as of this encounter
--- OUTSIDE RECORDS SUMMARY | 2025-07-02 18:01 | XMS_ITS | Encounter Summary ---
Author Organization [employer] Address [address] [facility] [address] [facility] [address] 7t [place] [address] Care Team Providers Care Information Systems Director Name Role Phone Radha Shah Primary Care Provider [phone] Colby Hirsch Unavailable Unavailable [facility] VIDEO POKER FLOORMAN Primary Care Provider [phone] Encounter Details Date Type Department Care Team (Late st Contact Info) Description 02/16/2024 Orders Only [facility] MED & PEDS [address] [place] [address] Radha Shah FNP [address] [place] [address] Routine adult health maintenance (Primary Dx) Social [...] Description 07/25/2025 2:00 PM EST Office Visit [facility] MEDICINE 230 [place] [address] Yecenia Frias FNP 230 [place] [address] 08/01/2025 2:00 PM EST Clinical Support [facility] [address] [place] [address] Kira Bansal RN 10/04/2025 2:00 PM EST Office Visit [facility] OPTOMETRY [address] [place] [address] Glenn, Akila, OD 230 [place] [address] documented as of this encounter Visit Diagnoses Diagnosis Routine adult health maintenance- Primary documented in this encounter Additional Health Concerns Assessment Noted Time PHQ-9 Depression Total Score: 6 12/28/19 24 11:17 AM EDT documented as of this encounter Care Teams Information Systems Director Relationship Specialty Start Date End Date Radha Shah FNP 230 [place] [address] PCP - General Family Medicine 04/21/23 04/25/24 Yecenia Frias FNP [address] [place] [address] PCP - General Family Medicine 04/26/24 Colby Hirsch FNP 230 [place] [address] Nurse Practitioner Family Medicine 07/13/23 Candice Ugarte Fish And Game Club ManagerTwisting Department End Finder 12/27/23 documented as of this encounter
--- OUTSIDE RECORDS SUMMARY | 2025-07-02 18:01 | XMS_ITS | Encounter Summary ---
Author Organization [employer] Address 75 [facility] 7t [place] [address] Care Team Providers Care Reshipping Clerk Name Role Phone aMrc Nicolas Primary Care Provider Unavail able Radha Shah Primary Care Provider +[phone] Colby Hirsch Unavailable Unavailable [facility] LIQUEFIER Primary Care Provider [phone] Reason for Visit * Reason Comments Med Refill Encounter Details Date Type Department Care Team (Late st Contact Info) Description 03/10/2023 Refill [facility] VACCINE CLIN[facility] 230 [place], [place] [phone] Marc Nicolas AGNP Mixed anxiety and depressive [...] Description 07/25/2025 2:00 PM EST Office Visit [facility] MEDICINE 230 [place] [address] [facility] 230 [place] [address] 08/01/2025 2:00 PM EST Clinical Support [facility] MEDIC[facility] 230 [place] [address] Kira Bansal, RN 10/04/2025 2:00 PM EST Office Visit [facility] OPTOMETRY [address] [place], [place] [phone] Akila Elizabeth, OD 230 [place] [address] documented as of this encounter Visit Diagnoses Diagnosis Mixed anxiety and depressive disorder Dysthymic disorder documented in this encounter Additional Health Concerns Assessment Noted Time PHQ-9 Depression Total Score: 13 023 3:27 PM EDT documented as of this encounter Care Teams Reshipping Clerk Relationship Specialty Start Date End Date Marc Nicolas AGNP PCP - General Family Medicine 10/22/22 04/20/23 Radha Shah FNP 230 [place] [address] PCP - General Family Medicine 04/21/23 04/25/24 [facility] [facility] [place] [address] PCP - General Family Medicine 04/26/24 Colby Hirsch FNP [address] [place] [address] Nurse Practitioner Family Medicine 07/13/23 Candice Ugarte Functional ConsultantFabric Awning Repairer 12/27/23 documented as of this encounter
--- OUTSIDE RECORDS SUMMARY | 2025-07-02 18:01 | XMS_ITS | Encounter Summary ---
Author Organization [employer] Address 75 [facility] 7t [place] [address] Care Team Providers Care Horse Race Starter Name Role Phone Marc Nicolas Primary Care Provider Unavail able Radha Shah DOG RACES MANAGER Primary Care Provider +1 Colby Hirsch Unavailable Unavailable [facility] Primary Care Provider [phone] Reason for Visit * Reason Comments Med Refill Encounter Details Date Type Department Care Team (Late Contact Info) Description 04/07/2023 Refill [facility] CH[facility] MED & PEDS [address] [place], [place] [phone] Marc Nicolas AGNP Multiple joint pain Social [...] Upcoming Encounters Date Type Department Care Team ([facility] Contact Info) Description 07/25/2025 2:00 PM EST Office Visit [facility] MEDICINE 230 [place], [place] [phone] [facility] 230 [place], [place] [phone] 08/01/2025 2:00 PM EST Clinical Support [facility] MEDICINE [address] [place] [address] Kira Bansal, MEREDITH 10/04/2025 2:00 PM EST Office Visit [facility] OPTOMETRY [address] [place] [address] Glenn, Megan, OD 230 [place] [address] documented as of this encounter Visit Diagnoses Diagnosis Multiple joint pain Pain in joint, multiple sites documented in this encounter Additional Health Concerns Assessment Noted Time PHQ-9 Depression Total Score: 0 04/02/20 2:10 PM EDT documented as of this encounter Care Teams Horse Race Starter Relationship Specialty Start Date End Date Marc Nicolas AGNP PCP - General Family Medicine 10/22/22 04/20/23 Radha Shah FNP 230 [place] [address] PCP - General Family Medicine 04/21/23 04/25/24 VanderpoolYecenia FNP [address] [place] [address] PCP - General Family Medicine 04/26/24 Colby Hirsch FNP [address] [place] [address] Nurse Practitioner Family Medicine 07/13/23 Candice Ugarte Trade EconomistChain Puller 12/27/23 documented as of this encounter
--- OUTSIDE RECORDS SUMMARY | 2025-07-02 18:01 | XMS_ITS | Encounter Summary ---
Author Organization [employer] Address 75 [facility] 7t [place] [address] Care Team Providers Care Tile Professional Name Role Phone Marc Nicolas Primary Care Provider Unavail able Radha Shah Primary Care Provider +[phone] Colby Hirsch Unavailable Unavailable [facility] CHLORINE CELLS OPERATOR Primary Care Provider [phone] Reason for Visit * Reason Comments Med Refill Encounter Details Date Type Department Care Team (Late st Contact Info) Description 03/10/2023 Refill [facility] 230 [place] [address] Marc Nicolas AGNP Mixed anxiety and depressive [...] Will send to PCP on 03/18/23. Has RESERVOIR CARETAKER scheduled 03/17/23. * Telephone Encounter - Chika Low - 03/15/2023 9:14 AM EDT Tc from patient requesting a med refill for medication tramadol [address] Nicolas documented in this encounter Plan of Treatment Upcoming Encounters Date Type Department Care Team (Late st Contact Info) Description 07/25/2025 2:00 PM EST Office Visit [facility] MEDICINE 230 [place] [address] Yecenia Frias FNP 230 [place] [address] 08/01/2025 2:00 PM EST Clinical Support [facility] MEDICINE 230 [place] [address] Kira Bansal, MEREDITH 10/04/2025 2:00 PM EST Office Visit [facility] OPTOMETRY [address] [place] [address] Glenn, Akila, OD 230 [place] [address] documented as of this encounter Visit Diagnoses Diagnosis Mixed anxiety and depressive disorder Dysthymic disorder Multiple joint pain Pain in joint, multiple sites documented in this encounter Additional Health Concerns Assessment Noted Time PHQ-9 Depression Total Score: 13 023 3:27 PM EDT documented as of this encounter Care Teams Tile Professional Relationship Specialty Start Date End Date Marc Nicolas AGNP PCP - General Family Medicine 10/22/22 04/20/23 Radha Shah FNP 230 [place] [address] PCP - General Family Medicine 04/21/23 04/25/24 RamerYecenia FNP [address] [place] [address] PCP - General Family Medicine 04/26/24 Colby Hirsch FNP [address] [place] [address] Nurse Practitioner Family Medicine 07/13/23 Candice Ugarte Asp Net ProgrammerSurvey Research Manager 12/27/23 documented as of this encounter
--- OUTSIDE RECORDS SUMMARY | 2025-07-02 18:01 | XMS_ITS | Encounter Summary ---
Author Organization [employer] Address 75 [facility] 7t [place] [address] Care Team Providers Care Shell Trim Tool Setter Name Role Phone Colby Hirsch COMMUNICATIONS PROJECT MANAGER Unavailable Unavailable [facility] Primary Care Provider [phone] Encounter Details Date Type Department Care Team ([facility] st Contact Info) Description 08/11/[address] [facility] MEDICINE 230 [place] [address] [facility] 230 [place] [address] Social History Tobacco Use Types Packs/Day Years [...] Description 07/25/2025 2:00 PM EST Office [facility] MEDICINE [address] [place] [address] Yecenia Frias [facility] 230 [place] [address] 08/01/2025 2:00 PM EST Clinical Support [facility] MED[facility] 230 [place] [address] Kira Bansal RN 10/04/2025 2:00 PM EST Office Visit [facility] OPTOMETRY [address] [place] [address] Glenn, Akila, OD 230 [place] [address] documented as of this encounter Visit Diagnoses Not on filedocumented in this encounter Additional Health Concerns Assessment Noted Time PHQ-9 Depression Total Score: 7 03/07/20 24 10:13 AM EDT documented as of this encounter Care Teams Shell Trim Tool Setter Relationship Specialty Start Date End Date Yecenia Frias FNP 230 [place] [address] PCP - General Family Medicine 04/26/24 Colby Hirsch FNP Nurse Practitioner Family Medicine 07/13/23 Candice Ugarte Load Out SupervisorCoin Purse Framer 12/27/23 documented as of this encounter
--- OUTSIDE RECORDS SUMMARY | 2025-07-02 18:01 | XMS_ITS | Encounter Summary ---
Author Organization [employer] Address 75 [facility] 7t [place] [address] Care Team Providers Care Business Communications Instructor Name Role Phone Colby Hirsch GENERAL ASSEMBLER Unavailable Unavailable [facility] Primary Care Provider [phone] Reason for Visit * Reason Onset Date Comments Med Refill 09/29/2024 Encounter Details Date Type Department Care Team ([facility] st Contact Info) Description 09/29/2024 Telephone [facility] MEDICINE 230 [place], [place] [phone] [facility] 230 [place] [address] Med Refill Social History Tobacco Use Types [...] tablet To be sent to: [facility] documented in this encounter Plan of Treatment Upcoming Encounters Date Type Department Care Team (Late st Contact Info) Description 07/25/2025 2:00 PM EST Office Visit [facility] MEDICINE [address] [place] [address] [facility] [address] [place] [address] 08/01/2025 2:00 PM EST Clinical Support [facility] MEDICINE 230 [place] [address] Kira Bansal RN 10/04/2025 2:00 PM EST Office Visit [facility] OPTOMETRY [address] [place] [address] Parveen Elizabethn, OD 230 [place] [address] documented as of this encounter Visit Diagnoses Not on filedocumented in this encounter Additional Health Concerns Assessment Noted Time PHQ-9 Depression Total Score: 7 03/07/20 24 10:13 AM EDT documented as of this encounter Care Teams Business Communications Instructor Relationship Specialty Start Date End Date Yecenia Frias FNP 230 [place] [address] PCP - General Family Medicine 04/26/24 Colby Hirsch FNP Nurse Practitioner Family Medicine 07/13/23 Candice Ugarte Cone WorkerWood Science Professor 12/27/23 documented as of this encounter
--- OUTSIDE RECORDS SUMMARY | 2025-07-02 18:01 | XMS_ITS | Encounter Summary ---
Author Organization [employer] Address [address] [facility] [address] 7t [place] [address] Care Team Providers Care President Sales And Marketing Name Role Phone Radha Shah Primary Care Provider +[phone] Colby Hirsch Unavailable Unavailable [facility] REAL ESTATE SERVICES COORDINATOR Primary Care Provider [phone] Encounter Details Date Type Department Care Team (Late st Contact Info) Description 03/08/2024 Orders Only [facility] MED & PEDS [address] [place] [address] Radha Shah FNP [address] [place] [address] Social History Tobacco Use Types Packs/Day Years [...] Description 07/25/2025 2:00 PM EST Office Visit [facility] MEDICINE 230 [place] [address] Yecenia Frias FNP 230 [place] [address] 08/01/2025 2:00 PM EST Clinical Support [facility] MEDICINE [address] [place] [address] Kira Bansal RN 10/04/2025 2:00 PM EST Office Visit [facility] OPTOMETRY [address] [place] [address] Akila Elizabeth, OD 230 [place] [address] documented as of this encounter Visit Diagnoses Not on filedocumented in this encounter Additional Health Concerns Assessment Noted Time PHQ-9 Depression Total Score: 7 03/07/20 24 10:13 AM EDT documented as of this encounter Care Teams President Sales And Marketing Relationship Specialty Start Date End Date Radha Shah FNP 230 [place] [address] PCP - General Family Medicine 04/21/23 04/25/24 Yecenia Frias FNP 230 [place] [address] PCP - General Family Medicine 04/26/24 Colby Hirsch FNP 230 [place] [address] Nurse Practitioner Family Medicine 07/13/23 Candice Ugarte Class A Regional Truck DriverAnalysis Consultant 12/27/23 documented as of this encounter
--- OUTSIDE RECORDS SUMMARY | 2025-07-02 18:01 | XMS_ITS | Encounter Summary ---
Author Organization [employer] Address [address] [facility] [address] 7t [place] [address] Care Team Providers Care Boiler Room Helper Name Role Phone Radha Shah ACCELERATOR TECHNICIAN Primary Care Provider +[phone] Colby Hirsch ACCELERATOR TECHNICIAN Unavailable Unavailable [facility] ACCELERATOR TECHNICIAN Primary Care Provider [phone] Reason for Visit * Reason Comments Med Refill Encounter Details Date Type Department Care Team (Late st Contact Info) Description 06/09/2023 Refill [facility] MEDICINE 230 [place] [address] Marilee Buckner FNP Multiple joint pain; Mixed [...] Description 07/25/2025 2:00 PM EST Office Visit [facility] MEDICINE 230 [place] [address] Yecenia Frias FNP 230 [place] [address] 08/01/2025 2:00 PM EST Clinical Support [facility] MEDICINE 230 [place] [address] Kira Bansal RN 10/04/2025 2:00 PM EST Office Visit [facility] OPTOMETRY [address] [place] [address] Glenn, Akila, OD 230 [place] [address] documented as of this encounter Visit Diagnoses Diagnosis Multiple joint pain Pain in joint, multiple sites Mixed anxiety and depressive disorder Dysthymic disorder documented in this encounter Additional Health Concerns Assessment Noted Time PHQ-9 Depression Total Score: 18 023 11:25 AM EDT documented as of this encounter Care Teams Boiler Room Helper Relationship Specialty Start Date End Date Radha Shah FNP [address] [place] [address] PCP - General Family Medicine 04/21/23 04/25/24 ButlerYecenia whipple FNP [address] [place] [address] PCP - General Family Medicine 04/26/24 Colby Hirsch FNP [address] [place] [address] Nurse Practitioner Family Medicine 07/13/23 Candice Ugarte Dough CutterRoad Passenger Firer 12/27/23 documented as of this encounter
--- OUTSIDE RECORDS SUMMARY | 2025-07-02 18:01 | XMS_ITS | Encounter Summary ---
Author Organization [employer] Address 75 [facility] 7t [place] [address] Care Team Providers Care Lathe Winder Name Role Phone Marc Nicolas Primary Care Provider Unavail able Radha Shah Primary Care Provider [phone] Colby Hirsch Unavailable Unavailable [facility] TURNING MACHINE SET UP OPERATOR Primary Care Provider [phone] Reason for Visit * Reason Onset Date Comments Med Refill 03/10/2023 Encounter Details Date Type Department Care Team ([facility] Contact Info) Description 03/10/2023 Telephone [facility] MEDICINE 230 [place], [place] [phone] Marc Nicolas AGNP Med Refill Social History [...] Upcoming Encounters Date Type Department Care Team ([facility] Contact Info) Description 07/25/2025 2:00 PM EST Office Visit [facility] MED[facility] [address] [place] [address] [facility]ec[facility] 230 [place] [address] 08/01/2025 2:00 PM EST Clinical Support [facility] MEDIC[facility] [address] [place] [address] Kira Bansal, MEREDITH 10/04/2025 2:00 PM EST Office Visit [facility] OPTOMETRY [address] [place], [place] [phone] Akila Elizabeth, OD 230 [place] [address] documented as of this encounter Visit Diagnoses Not on filedocumented in this encounter Additional Health Concerns Assessment Noted Time PHQ-9 Depression Total Score: 13 023 3:27 PM EDT documented as of this encounter Care Teams Lathe Winder Relationship Specialty Start Date End Date Marc Nicolas AGNP PCP - General Family Medicine 10/22/22 04/20/23 Radha Shah FNP 230 [place] [address] PCP - General Family Medicine 04/21/23 04/25/[address] [place] [address] PCP - General Family Medicine 04/26/24 Colby Hirsch FNP [address] [place] [address] Nurse Practitioner Family Medicine 07/13/23 Candice Ugarte Screen Room OperatorBowling Ball Assembler 12/27/23 documented as of this encounter
--- OUTSIDE RECORDS SUMMARY | 2025-07-02 18:01 | XMS_ITS | Encounter Summary ---
Author Organization [employer] Address [address] [facility] [address] [place] [address] Care Team Providers Care Occupational Therapy Aides Teacher Name Role Phone Marc Nicolas Primary Care Provider Unavail able Radha Shah STEEL PLATE PRINTER Primary Care Provider [phone] Colby Hirsch Unavailable Unavailable [facility] STEEL PLATE PRINTER Primary Care Provider [phone] Reason for Visit * Reason Comments Med Refill Encounter Details Date Type Department Care Team ([facility] Contact Info) Description 03/17/2023 Refill [facility] MED[facility] [address] [place] [address] Marc Nicolas AGNP Mixed anxiety and depressive [...] Upcoming Encounters Date Type Department Care Team ([facility] Contact Info) Description 07/25/2025 2:00 PM EST Office Visit [facility] MEDICINE [address] [place] [address] [facility] [address] [place] [address] 08/01/2025 2:00 PM EST Clinical Support [facility] [address] [place] [address] Kira Bansal, RN 10/04/2025 2:00 PM EST Office Visit [facility] OPTOMETRY [address] [place], [place] [phone] Akila Elizabeth, OD [address] [place] [address] documented as of this encounter Visit Diagnoses Diagnosis Mixed anxiety and depressive disorder Dysthymic disorder documented in this encounter Additional Health Concerns Assessment Noted Time PHQ-9 Depression Total Score: 13 023 3:27 PM EDT documented as of this encounter Care Teams Occupational Therapy Aides Teacher Relationship Specialty Start Date End Date Marc Nicolas AGNP PCP - General Family Medicine 10/22/22 04/20/23 Radha Shah FNP [address] [place] [address] PCP - General Family Medicine 04/21/23 04/25/24 [place] [address] PCP - General Family Medicine 04/26/24 Colby Hirsch FNP [address] [place] [id number] Nurse Practitioner Family Medicine 07/13/23 Candice Ugarte Pool FinisherSavings Teller 12/27/23 documented as of this encounter
--- OUTSIDE RECORDS SUMMARY | 2025-07-02 18:01 | XMS_ITS | Encounter Summary ---
Author Organization [employer] Address [address] [facility] [address] [place] [address] Care Team Providers Care Catcher Filter Tip Name Role Phone Radha Shah CLINICAL TRIAL HEAD Primary Care Provider +1 Colby Hirsch Unavailable Unavailable [facility] Primary Care Provider [phone] Reason for Visit * Reason Comments Med Refill Encounter Details Date Type Department Care Team (Late st Contact Info) Description 06/30/2023 Refill [facility] MEDICINE [address] [place] [address] Radha Shah FNP [address] [place] [address] Multiple joint pain Social History Tobacco Use [...] Description 07/25/2025 2:00 PM EST Office Visit [facility] MEDICINE [address] [place] [address] Yecenia Frias FNP [address] [place] [address] 08/01/2025 2:00 PM EST Clinical Support [facility] [address] [place] [address] Kira Bansal RN 10/04/2025 2:00 PM EST Office Visit [facility] OPTOMETRY [address] [place] [address] Glenn, Akila, OD [address] [place] [address] documented as of this encounter Visit Diagnoses Diagnosis Multiple joint pain Pain in joint, multiple sites documented in this encounter Additional Health Concerns Assessment Noted Time PHQ-9 Depression Total Score: 6 06/15/20 10:23 AM EDT documented as of this encounter Care Teams Catcher Filter Tip Relationship Specialty Start Date End Date Radha Shah FNP [address] [place] [address] PCP - General Family Medicine 04/21/23 04/25/24 Yecenia Frias FNP [address] [place] [address] PCP - General Family Medicine 04/26/24 Colby Hirsch FNP [address] [place] [address] Nurse Practitioner Family Medicine 07/13/23 Candice Ugarte Envelope AddresserCheck Cashier 12/27/23 documented as of this encounter
--- OUTSIDE RECORDS SUMMARY | 2025-07-02 18:01 | XMS_ITS | Encounter Summary ---
Author Organization [employer] Address [address] [facility] [address] [place] [address] Care Team Providers Care Yard Stocker Name Role Phone Radha Shah AGENCY SALES DEVELOPMENT ASSOCIATE Primary Care Provider [phone] Colby Hirsch Unavailable Unavailable [facility] AGENCY SALES DEVELOPMENT ASSOCIATE Primary Care Provider [phone] Reason for Visit * Reason Comments Med Refill Encounter Details Date Type Department Care Team (Late st Contact Info) Description 06/28/2023 Refill [facility] PEDS [address] [place] [address] Radha Shah FNP [address] [place] [address] Schizoaffective disorder, depressive type (CMS/HCC) Social History [...] Office Visit [facility] MEDICINE [address] [place] [address] Yecenia Frias FNP [address] [place] [address] 08/01/2025 2:00 PM EST Clinical Support [facility] MEDICINE [address] [place] [address] Kira Bansal RN 10/04/2025 2:00 PM EST Office Visit [facility] OPTOMETRY [address] [place] [address] Akila Elizabeth, OD [address] [place] [address] documented as of this encounter Visit Diagnoses Diagnosis Schizoaffective disorder, depressive type (CMS/HCC) (HCC) Schizoaffective disorder, unspecified condition documented in this encounter Additional Health Concerns Assessment Noted Time PHQ-9 Depression Total Score: 6 06/15/20 23 10:23 AM EDT documented as of this encounter Care Teams Yard Stocker Relationship Specialty Start Date End Date Radha Shah FNP [address] [place] [address] PCP - General Family Medicine 04/21/23 04/25/24 AltagraciaYecenia whipple FNP [address] [place] [address] PCP - General Family Medicine 04/26/24 Colby Hirsch FNP [address] [place] [address] Nurse Practitioner Family Medicine 07/13/23 Candice Ugarte Communication ProfessorHealth Management Consultant 12/27/23 documented as of this encounter
[2025-07-02 18:09] LABS: Bacterial Vaginosis PCR NEGATIVE (Negative); Candida Group PCR DETECTED (Not Detect); Candida glab krusei PCR NOT DETECTED (Not Detect); Trichomonas vaginalis PCR NOT DETECTED (Not Detect)
== END 2025-07-02 16:22 | disposition home or self-care (01) ==
LOC: HO.CT 16:21
PROVIDERS: Nurse Practitioner Family; PCP Family Medicine; Visit Provider Urology
DX: N20.0 Calculus of kidney (principal); N89.8 Other specified noninflammatory disorders of vagina; R39.9 Unspecified symptoms and signs involving the genitourinary system
CPT/HCPCS: 81515; 87086; 87088; 87186

== ENCOUNTER 2025-07-18 11:12 | Day surgery (SDC) | payer MEDICAID, SELFPAY ==
--- OUTSIDE RECORDS SUMMARY | 2024-01-26 11:20 | XMS_ITS ---
Author Organization [facility] Address [address] [place] [address] Care Team Providers Care Crane Crew Supervisor Name Role Phone Radha Rodriguez Primary Care Provider Jaylan Clancy Unavailable [phone] REASON FOR VISIT Patient presents today for FATTY LIVER Encounters Encounter Location Date Provider Diagnosis [facility] [address] [place] [phone] 01/26/2024 Jaylan Neal Plan Of Treatment No Information Progress Notes * MADHU JAZLYNHAYLEESDOB: 0 (44 yo F)Acc No.[id number]:01/26/2024 Progress Notes Patient: HARMAN MCKEON Provider: Geovani Neal MD :1980 A ge:43 Y S ex:Female Date:01/26/2024 Address:[address] [place], [place] [phone] Pcp:JACINTO Ramos Subjective: * Chief Complaints: * [...] 01/26/2024 Generated for Ashlee perez/Lisa/eTransmitting on: 1 05:32 PM EDT
--- OUTSIDE RECORDS SUMMARY | 2024-06-20 09:20 | XMS_ITS ---
Author Organization [facility] Address [address] [place] [address] Care Team Providers Care Brand Sales Manager Name Role Phone Radha Rodriguez Primary Care Provider Jaylan Clancy Unavailable [phone] REASON FOR VISIT Patient presents today for FATTY LIVER Encounters Encounter Location Date Provider Diagnosis [facility] [address] [place] [address] 06/20/2024 Jaylan Neal Plan Of Treatment No Information Progress Notes * MADHU JAZLYNHAYLEESDOB: 0 (44 yo F)Acc No.[id number]:06/20/2024 Progress Notes Patient: HARMAN CMKEON Provider: Geovani Neal MD :1980 A ge:43 Y S ex:Female Date:06/20/2024 Address:[address] [place], [place] [phone] Pcp:JACINTO Ramos Subjective: * Chief Complaints: * [...] Geovani Neal MD Date: Generated for Ashlee perez/Lisa/eTransmitting on: 05:32 PM EDT
--- OUTSIDE RECORDS SUMMARY | 2024-06-20 09:20 | XMS_ITS ---
Author Organization [facility] Address [address] [place] [address] Care Team Providers Care Circuit Board Inspector Name Role Phone Radha Rodriguez Primary Care Provider Jaylan Clancy [phone] REASON FOR VISIT FATTY LIVER Encounters Encounter Location Date Provider Diagnosis [facility] [address] [place] [address] 06/20/2024 Jaylan Neal Plan Of Treatment No Information Progress Notes * ABA LEUNGSDOB: 0 (44 yo F)Acc No.[id number]:06/20/2024 Progress Notes Patient: HARMAN MCKEON Provider: Geovani Neal MD :1980 A ge:43 Y S ex:Female Date:06/20/2024 Address:[address] [place], [place] [phone] Pcp:JACINTO Ramos Subjective: * Chief Complaints: * [...] MD Date: Generated for Ashlee perez/Lisa/eTodiliasmitting on: 05:32 PM EDT
--- OUTSIDE RECORDS SUMMARY | 2025-05-28 17:32 | XMS_ITS | Encounter Summary ---
Author Organization [employer] Address [address] [facility] 7t [place] [address] Care Team Providers Care Oracle Specialist Name Role Phone Radha Shah SPORTS ANALYST Primary Care Provider [phone] Colby Hirsch Unavailable Unavailable [facility] SPORTS ANALYST Primary Care Provider [phone] Reason for Visit * Reason Onset Date Comments telephone call 10/29/2023 Encounter Details Date Type Department Care Team (Late st Contact Info) Description 10/29/2023 Refill [facility] MEDICINE [address] [place] [address] Radha Shah FNP [address] [place] [address] Multiple joint pain Social History Tobacco Use [...] does not remember the program name. A sales team member from the program told her that if she still want to be in the program she needs a referral from PCP. Please call patient with any concern or questions. * Telephone Encounter - Celine Pate - 11/12/2023 9:46 AM EDT Patient walked in requesting a referral for a program. Patient does not remember the program name. A sales team member from the program told her that if she still want to be in the program she needs a referral from PCP. Please call patient with any concern or questions. documented in this encounter Plan of Treatment Upcoming Encounters Date Type Department Care Team (Late st Contact Info) Description 07/04/2025 2:00 PM EST Office Visit [facility] MEDICINE [address] [place] [address] Pax, Yecenia, [facility] [address] [place] [address] 08/01/2025 2:00 PM EST Clinical Support [facility] MEDICINE [address] [place] [address] Kira Bansal RN documented as of this encounter Visit Diagnoses Diagnosis Multiple joint pain Pain in joint, multiple sites documented in this encounter Additional Health Concerns Assessment Noted Time PHQ-9 Depression Total Score: 8 09/02/19 11:12 AM EST documented as of this encounter Care Teams Oracle Specialist Relationship Specialty Start Date End Date Radha Shah FNP [address] [place] [address] PCP - General Family Medicine 04/21/23 04/25/24 Yecenia Frias FNP [address] [place] [address] PCP - General Family Medicine 04/26/24 Colby Hirsch FNP [address] [place] [address] Nurse Practitioner Family Medicine 07/13/23 Candice Ugarte Movie ActorCall Box Wirer 12/27/23 documented as of this encounter
--- OUTSIDE RECORDS SUMMARY | 2025-05-28 17:32 | XMS_ITS | Encounter Summary ---
Author Organization [employer] Address [address] [facility] 7t [place] [address] Care Team Providers Care Cathead Operator Name Role Phone Colby Hirsch ECHO TECH Unavailable Unavailable [facility] Primary Care Provider [phone] Reason for Visit * Reason Comments Med Refill Encounter Details Date Type Department Care Team (Late st Contact Info) Description 03/12/2025 Refill [facility] MEDICINE [address] [place] [address] Radha Shah FNP [address] [place] [address] Social History Tobacco Use Types Packs/Day Years [...] 07/04/2025 2:00 PM EST Office Visit [address] [address] Yecenia Frias FNP [address] [place] [address] 08/01/2025 2:00 PM EST Clinical Support [address] [address] Kira Bansal RN documented as of this encounter Visit Diagnoses Not on filedocumented in this encounter Additional Health Concerns Assessment Noted Time PHQ-9 Depression Total Score: 0 02/27/20 25 10:29 AM EDT documented as of this encounter Care Teams Cathead Operator Relationship Specialty Start Date End Date Yecenia Frias FNP [address] [place] [address] PCP - General Family Medicine 04/26/24 Colby Hirsch FNP Nurse Practitioner Family Medicine 07/13/23 Candice Ugarte Lace StripperDubbing Machine Operator 12/27/23 documented as of this encounter
--- OUTSIDE RECORDS SUMMARY | 2025-05-28 17:32 | XMS_ITS | Clinical Summary ---
Author Organization [employer] Address [address] [facility] 7t [place] [address] Care Team Providers Care Anodic Treater Name Role Phone Colby Hirsch FLOWER PICKER Unavailable Unavailable [employer] FLOWER PICKER Primary Care Provider [phone] Allergies Active Allergy Reactions Criticality Noted Date [...] long-term current use of insulin ([facility]) TAKE 1 TABLET BY MOUTH EVERY DAY WITH DINNER 90 tablet 1 024 Active glucose blood test stripIndications :Type 2 diabetes mellitus without complication, with long-term current use of insulin ([facility]) 1 each by Other route 2 [...] long-term current use of insulin ([facility]) 1 Device 2 times daily. 1 kit 024 Active Alcohol Swabs (Alcohol Prep) 70 % pads USE 1 FOUR TIMES DAILY DIRECTED 200 each 11 025 Active omeprazole (PriLOSEC) [address] capsule TAKE 1 CAPSULE BY MOUTH EVERY MORNING BEFORE BREAKFAST. DO NOT BREAK, CRUSH, DISSOLVE OR CHEW. 90 capsule 3 025 Active oxymetazoline (Afrin Nasal Summit) 0.05 % nasal sprayIndications :Viral upper respiratory illness Administer 2 sprays into each nostril every 12 (twelve) hours if needed for congestion for up to 2 days. Do not use for more than 3 days. 30 mL 025 Active beta carotene (vitamin A) 3 MG (11247 UT) capsule TAKE 1 CAPSULE BY MOUTH [...] to call next month for an update. Sacah has my number, if symptoms exacerbate she [...] mechanism to manage sxs, provided her with [facility] Crisis number for after hrs support. [...] skills discussed in session. She will contact [facility] crisis number as needed. Patient with nervousness, hx of SI attempts 3 years ago , endorse AH with commands, crying spells, isolation, insomnia, poor appetite. Reported she takes walks, listen gospel music and prays to quit the voices and also le there know when the voices stars. She denies SI, HI, or self-harm at this time. At this time Sahca Rodriguez meets criteria for Visit Diagnoses: Problem [...] >60 CM >60 CM Comment: NOTE: For -New Zealander individuals, multiply the result by 1.210.Chronic Kidney Disease: Estimated GFR < 60 mL/min/1.10y7Inkmoe Kidney Disease: Estimated GFR < 15 mL/min/1.73m2 [...] >60 CM >60 CM Comment: NOTE: For -[place] Zealander individuals, multiply the result by 1.210.Chronic Kidney Disease: Estimated GFR < 60 mL/min/1.95h3Bxjzaz Kidney Disease: Estimated GFR < 15 mL/min/1.73m2 [...] psychotic features with peripartum onset, unspecified trimester ([facility]) 01/21/2023 0 01/21/2023 Schizoaffective disorder, de pressive type ([facility]) 01/21/2023 02/27/2025 Overview (02/17/2023): Diagnostic evaluation [...] in person with a female clinician in [place]. At this time Sacha Rodriguez meets criteria [...] retiring patient is now referred to new [facility] psychiatric provider. Pt is aware that appts will be via televisit and that provider will not be an [facility] employee. She gives permission to share [...] night at bedtime (not prn). Based on ASSEMBLER SEMICONDUCTOR notes, she appears to be taking Clonazepam [...] 05/22/2025 12:00 PM EDT Office Visit [facility] [address] [place] [address] Cheryl Galan DO Paresthesia of both feet (Primary Dx); Pain of both heels; Morning headache; Type 2 diabetes mellitus without complication, with long-term current use of insulin ([facility]); Pain of left thumb 05/22/2025 Travel 05/22/[address] [facility] [address] [place] [address] Yecenia Frias FNP Chart Prep 05/16/[address] [facility] [address] [facility] [place] [address] Yecenia FriasJCAINTO telephone call 05/14/[address] [facility] [address] [place] [address] Yecenia Frias FNP Multiple joint pain 05/07/2025 2:40 PM EDT Office Visit [facility] [address] [place] [address] Yobany, MD Tony Sore throat (Primary Dx); Stuffy and runny nose; Malaise; Headache, unspecified headache type 05/07/2025 Travel 04/30/2025 1:00 PM EDT Clinical Support [facility] [address] [place] [address] Kira Bansal RN Long-term current use of opiate analgesic (Primary Dx) 04/30/[address] [facility] [address] [place] [address] Kira Bansal RN BPI Scoring 04/30/2025 Travel 04/18/[address] [facility] [address] [place] [address] Yecenia Frias JACINTO Arthralgia, unspecified joint 04/16/[address] [facility] [address] [place] [address] Yecenia FriasJACINTO Multiple joint pain 04/16/[address] [facility] [address] [place] [address] Yecenia FriasJACINTO Multiple joint pain 03/19/[address] [facility] [address] [place], [place] [phone] Altagracia JACINTO Keene Multiple joint pain 03/19/[address] [facility] [address] [place] [address] Yecenia FriasAPARNAP Multiple joint pain 03/13/2025 Orders Only GENERIC EXTERNAL DATA DEPARTMENT Provider, Generic External Data 03/12/[address] [facility] [address] [place] [address] Yecenia Frias FNP Mild intermittent asthma without complication 03/12/[address] [facility] [address] [place] [address] Radha Shah FNP 03/09/[address] [facility] [address] [place] [address] Eloisa Aragon NP 03/07/2025 Orders Only GENERIC EXTERNAL DATA DEPARTMENT Provider, Generic External Data 03/06/2025 1:40 PM EDT Office Visit [facility] [address] [place] [address] Bethany Bond MD Costochondritis; Dizziness; Type 2 diabetes mellitus without complication, with long-term current use of insulin (CMS/[facility]) 03/06/[address] [address] Altagracia JACINTO Keene Stable Lab Letter 03/06/2025 Travel 03/05/2025 Results Follow-Up [facility] [address] [address] [place] JACINTO [place]ene Albumin, Random Urine W/Creatinine 03/02/[address] [address] Altagracia JACINTO [place] Arthralgia, unspecified joint 02/26/2025 10:30 AM EDT Office Visit [address] [address] Altagracia JACINTO [place] Type 2 diabetes mellitus without complication, with long-term current use of insulin (CMS/[facility]) (Primary Dx); Essential hypertension; Encounter for screening for malignant neoplasm of colon; Encounter for immunization 02/26/2025 Travel from Last 3 Months Immunizations Immunization Administration [...] Description 07/04/2025 2:00 PM EST Office Visit [facility] [address] [place] [address] [place] FNP [address] [place] [address] 08/01/2025 2:00 PM EST Clinical Support [address] [address] Kira Bansal, MEREDITH Health Maintenance Due Date [...] Exam 11/23/2020 05/24/2020 COVID-19 Vaccine ( season) 2025 10/08/2022, 05/05/2021, [...] with long-term current use of insulin ([facility]) POCT GLUCOSE Routine 05/22/2025 12:59 PM EDT Type 2 diabetes mellitus without complication, with long-term current use of insulin ([facility]) POCT INFLUENZA B (ID NOW RAPID MOLECULAR) [...] insulin (CMS/HCC) ALBUMIN, RANDOM URINE W/CREATININE Routine 02/26/2025 11:31 AM EDT Type 2 diabetes mellitus without complication, with long-term current use of insulin (CMS/HCC) HIV 1/2 ANTIGEN/ANTIBODY, FOURTH GENERATION W/RFL Routine [...] Laterality Modality Lower Extremities, Foot Right Radiogra [facility] Imaging 05/22/2025 1:30 PM EDT Narrative 05/22/2025 1:43 PM EDT [address] [address] XRay Report Signed Patient: Sacha Contreras MR#: [id number] : 1980 Acct:[id number] Age/Sex: 44 / F ADM Date: 05/22/25 Loc: HO.HHCX Attending Dr: Cheryl Galan DO Ordering Physician: Cheryl Galan DO Date of Service: 05/22/25 Procedure(s): XR foot RT min 3V Accession Number(s): [id number] cc: Cheryl Galan DO Reason for Exam: [...] 05/22/25 1341 DD/ 1330 TD/TT: 05/22/25 1334 Class B Driver: Procedure Note Donotuseinterpreter, Image - 05/22/[address] [address] XRay Report Signed Patient: Xavier ContrerasR#: [id number] : 1980Acct:[id number] Age/Sex: 44 / FADM Date: 05/22/25 Loc: HO.HHCX Attending Dr: Cheryl Galan DO Ordering Physician: Cheryl Galan DO Date of Service: 05/22/25 Procedure(s): XR foot RT min 3V Accession Number(s): [id number] cc: Cheryl Galan DO Reason for Exam: [...] 05/22/25 1341 DD/ 1330 TD/TT: 05/22/25 1334 Class B Driver: Cheryl Galan DO IMG XR PROCEDURES Final Resu lt * XR Foot 3+ Views Left (05/22/2025 1:30 PM EDT) Anatomical Region Laterality Modality Lower Extremities, Foot Left Radiogra phic Imaging 05/22/2025 1:30 PM EDT Narrative 05/22/2025 1:42 [place] [address] XRay Report Signed Patient: Sacha Contreras MR#: [id number] : 1980 Acct:[id number] Age/Sex: 44 / F ADM Date: 05/22/25 Loc: HO.HHCX Attending Dr: Cheryl Galan DO Ordering Physician: Cheryl Galan DO Date of Service: 05/22/25 Procedure(s): XR foot LT min 3V Accession Number(s): [id number] cc: Cheryl Galan DO Reason for Exam: [...] Castaneda MD in OV> 05/22/25 1340 DD/ 133 TD/TT: 05/22/25 133 Class B Driver: Procedure Note Dinoter, Image - 05/22/[address] [address] XRay Report Signed Patient: Xavier ContrerasR#: [id number] : 1980Acct:[id number] Age/Sex: 44 / FADM Date: 05/22/25 Loc: HO.HHCX Attending Dr: Cheryl Galan DO Ordering Physician: Cheryl Galan DO Date of Service: 05/22/25 Procedure(s): XR foot LT min 3V Accession Number(s): [id number] cc: Cheryl Galan DO Reason for Exam: [...] Dipak Castaneda MD 05/22/2025 01:40 PM EDT Dictated By: Dipak Castaneda MD Signed By: <Electronically signed by Dipak Castaneda MD in OV> 05/22/25 1340 DD/ 1330 TD/TT: 05/22/251333 Class B Driver: Cheryl aGlan DO IMG XR PROCEDURES Final Resu lt * (ABNORMAL) POCT Hgb A1c (05/22/2025 1:01 PM EDT) Hemoglobin A1C 6.1(A) 4.0 - 5.7 % QC Media Lot # [id number] Lot# Expiration Date Blood 05/22/2025 1:01 PM EDT Cheryl Zamudiorosa mariakatiana DO POINT OF CARE TEST ENTER/SANCHO T ORDERABLES Final Result * POCT Glucose (05/22/2025 12:59 PM EDT) Only the most recent of2 resultswithin the time period is included. Glucose Blood, POC 107 60 - 200 mg/dL QC Media Lot # [id number] Lot# Expiration Date Blood Capillary blood specimen / Unknown 05/22/2025 12:59 PM EDT Cheryl Zamudioholly CANCINO POINT OF CARE TEST ENTER/SANCHO T ORDERABLES Final Result * POCT Rapid Influenza B BALL ID NOW (05/07/2025 2:59 PM EDT) Influenza B Negative Negative, Indeterminate [facility] QC Media Lot # [id number] [facility] Lot# Expiration Date [facility] Swab 05/07/2025 2:59 PM EDT us Tony Haywood MD POINT OF CARE TEST ENTER/EDIT OR DERABLES Final Result Performing Organization Address [facility]/ZIP Co de Phone Number [facility] [address] [place] [phone] * POCT Rapid Influenza A BALL ID NOW (05/07/2025 2:59 PM EDT) Influenza A Negative Negative, Indeterminate [facility] QC Media Lot # [id number] [facility] Lot# Expiration Date [facility] Swab 05/07/2025 2:59 PM EDT us Tony Haywood MD POINT OF CARE TEST ENTER/EDIT OR DERABLES Final Result [facility] [address] [place] [phone] * POCT Rapid Covid-19 BinaxNOW (05/07/2025 2:58 PM EDT) Pathologist [facility] Rapid COVID Ag Negative QC Media Lot # [id number] Lot# Expiration Date 8326 Swab 05/07/2025 2:58 PM EDT Tony Haywood MD POINT OF CARE TEST ENTER/EDIT OR DERABLES Final Result * POCT Rapid Strep A BALL ID NOW (05/07/2025 2:57 PM EDT) [facility] Rapid Strep A Screen Negative Negative, None Detected QC Media Lot # [id number] Lot# Expiration Date 22 Swab 05/07/2025 2:57 PM EDT Tony Haywood MD POINT OF CARE TEST ENTER/EDIT OR DERABLES Final Result * POCT CASSI-14 Urine Drug Screen (04/30/2025 12:21 PM EDT) [facility] THC Negative Negative Cocaine Screen, Urine [...] - 04/30/2025 12:21 PM EDT UTOX cup Lot#[id number] Exp. 05/29/26 Internal Pass Control [facility] FLOWER PICKER POINT OF CARE TEST ENTER/EDIT ORDERABLES Final Result * High Sensitivity Troponin I (03/13/2025 4:31 PM EDT) TROPONIN I HIGH SENSITIVITY <2.7 <3.5 - 17.0 ng/L [facility] Comment:The Ball high sens itivity Troponin-I results should beused in conjunction with other diagnostic information suchas ECG, clinical observations and information, and patientsymptoms to aid in the diagnosis of OK. 03/13/2025 4:31 PM EDT 03/13/2025 4:36 PM EDT us Generic External Data Provider LAB BLOOD ORDERAB LES Final Result [facility] [address] [place] [phone] * Gross and Microscopic Level 3 (03/07/2025 1:00 PM EDT) 03/07/2025 1:00 PM EDT 03/07/2025 1:17 PM EDT Narrative [facility] - 03/08/2025 1:17 PM EDT ----- ------- Name: Sacha Contreras Age/Sex: 44/F : 1980 Unit#: [id number] Attend Dr: Lionel Cintron MD Re03/07/25 Status: [facility] Location: [facility] Disch: ----- ------- SPEC : [id number] RECD: 03/07/25 STATUS: LEELEE NAVA NUM: [id number] MT: 03/07/25-[address]: Lionel Cintron MD ENTERED: 03/07/25 SP TYPE: Surgical OTHR DR: [facility] ORDERED: Gross Micro L3 Diagnosis Soft tissue, [...] fibrous dermal tissue and unremarkable subcutaneous fat. Master Rigger sections are submitted in cassettes A1 and A2. CEDS IHC S/NG Disclaimer NOTE: Unless otherwise stated, all tissue is formalin-fixed and paraffin-embedded. Some or all of the immunohistochemical tests reported herein may have been developed and their performance characteristics determined by [facility]. They have not been [...] Sacha Contreras Age/Sex: 44/F : 1980 Unit#: [id number] Attend Dr: Lionel Cintron MD Re03/07/25 Status: [facility] Location: [facility] Disch: ----- ------- SPEC : [id number] RECD: 03/07/25-1316 STATUS: LEELEE NAVA NUM: [id number] MT: 03/07/25-[address] [facility] [address]: Lionel Cintron MD ENTERED: 03/07/25-1327 SP TYPE: Surgical OTHR DR: [facility] ORDERED: Gross Micro L3 Copies To: [address] [address] Lionel Cintron MD [facility] [address] [place] [address] ----- ------- Signed (signature on file) Raghav Merrill MD 03/08/25 1317 ----- ------- END OF REPORT Generic External Data Provider LAB CYTOLOGY ORDE RABLES Final Result Performing Organization Address [facility] Co de Phone Number [facility] [address] [place] [phone] * Glucose, Whole Blood (03/07/2025 11:13 AM EDT) Glucose, Whole Blood 92 60 - 115 mg/dL [facility] Comment:METER #: [id number] 03/07/2025 11:1 3 AM EDT 03/07/2025 11:21 AM EDT Generic External Data Provider LAB BLOOD ORDERAB LES Final Result Performing Organization Address [facility] Co de Phone Number [facility] [address] [place] [phone] * Albumin, Random Urine W/Creatinine (02/26/2025 11:31 AM EDT) Creatinine, Urine 186.00 mg/dL [facility] Microalbumin Urine 39.0 mg/L [facility] Microalbum Creatinine Ratio Ur 20.9 <30 ug/mg cr [facility] Comment:Albumin/Creatinine R atio Reference Ranges: Normal: < 30 ug/mg creatinine Microalbuminuria: 30 - 300 ug/mg creatinineClinical Albuminuria: > 300 ug/mg creatinine Urine 02/26/2025 11:3 1 AM EDT 02/26/2025 1:48 PM EDT [facility] LAB URINE ORDERABLES Final Re sult Performing Organization Address [facility] Co de Phone Number [facility] [address] [place] [address] [phone] * HIV-1/2 Antigen and Antibodies, Fourth Generation, with Reflexes (10/23/2024 2:05 PM EST) HIV AB/AG Nonreactive Nonreactive [facility] Comment:HIV-1 p24 Ag and/or HIV-1/HIV-2 Ab not detected.A test result that is nonreactive does not exclude thepossibility of exposure to or infection with HIV-1 and/orHIV-2. Nonreactive results in this assay for individualswith prior exposure to HIV-1 and/or HIV-2 may be due toantigen and antibody levels that are below the limit ofdetection of this assay.The everbill HIV Ag/Ab Combo assay result andsupplemental assay results should be interpreted inconjunction with the patient's clinical presentation,history and other laboratory results. If the results areinconsistent with clinical evidence, additional testing issuggested to confirm the result. Blood Venous blood specimen / Unknown 10/23/2024 2:05 PM EST 10/23/2024 4:20 PM EST [facility] LAB BLOOD ORDERABLES Final Re sult [facility] [address] [place] [address] [phone] * (ABNORMAL) Lipid Panel, Standard (09/25/2024 1:22 PM EST) Pathologist [facility] Triglycerides 109 <150 mg/dL [facility] Comment:Desirable Triglyceri de: less than 150 mg/dLBorderline High Triglyceride 150-199 mg/dLHigh Triglyceride: 200-499 mg/dLVery High Triglyceride: greater than or equal to 5OO mg/dL Cholesterol 128 <200 mg/dL [facility] Comment:Desirable Cholestero l: less than 200 mg/dLBorderline High Cholesterol: 200-239 mg/dLHigh Cholesterol: greater than 239 mg/dL LDL Cholesterol Calculated 71 <100 mg/dL [facility] Comment:Desirable LDL: less than 100 mg/dLNear Optimal/Above Optimal LDL: 110- 129 mg/dLBorderline High LDL: 130-159 mg/dLHigh LDL: 160-189 mg/dLVery High LDL: greater than or equal to 190 mg/dL HDL Cholesterol 36(L) >40 mg/dL [facility] Comment:Desirable HDL: great er than 40 mg/dL Note: This HDL assay may give artificially low results in patients with liver disease. 09/25/2024 1:22 PM EST 09/25/2024 4:00 PM EST us Generic External Data Provider LAB BLOOD ORDERAB LES Final Result [facility] [address] [place] [address] [phone] * BI Mammogram Screening Tomosynthesis Bilateral (11/16/2023 1:25 PM EDT) Anatomical Region Laterality Modality Breast Bilateral Mammography 11/16/2023 1:25 PM EDT Narrative 12/02/2023 6:15 AM EDT [facility] [address] [place] [address] Mammography Report Signed Patient: Sacha Contreras MR#: [id number] : 1980 Acct:[id number] Age/Sex: 42 / F ADM Date: 11/16/23 Loc: HO.MAMMO Attending Dr: Radha Shah CAR BUILDER Ordering Physician: Radha Shah NP Results: 1Negativ e Date of Service: 11/16/23 Follow Up: 1 Year From [facility] Mammogram Procedure(s): MM tomosynthesis screening BI Accession Number(s): [id number] cc: Radha Shah NP EXAMINATION: MM SCREENING [...] in OV> 12/02/23 0611 DD/ 1325 TD/TT: Class B Driver: Procedure Note Donotuseinterpreter, Image - 12/02/2023 [facility] [address] [place] [address] Mammography Report Signed Patient: Xavier ContrerasR#: [id number] : 1980Acct:[id number] Age/Sex: 42 / FADM Date: 11/16/23 Loc: HO.MAMMO Attending Dr: Radha Shah CAR BUILDER Ordering Physician: Radha Shah NPResults: 1Negativ e Date of Service: 11/16/23Follow Up: 1 Year From [facility] Mammogram Procedure(s): MM tomosynthesis screening BI Accession Number(s): [id number] cc: Radha Shah NP EXAMINATION: MM SCREENING [...] in OV> 12/02/23 0611 DD/ 1325 TD/TT: Class B Driver: Radha Shah FLOWER PICKER IM BI PROCEDURES Final Result * (ABNORMAL) Hepatitis Panel, General (02/22/2023 1:46 PM EDT) Hepatitis A Antibody Total REACTIVE( A) NON-REACT [facility]WNYA [employer] Comment: For additional information, please refer to http://[employer]/faq/WWK236 (This link is being provided for informational/ educational purposes only.) Hepatitis B Surface Antibody QL REACTIVE( A) NON-REACT [facility] [employer] Hepatitis B Surface Ag NON-REACT TAWNYA NON-REACT TAWNYA [employer] Comment: For additional information, please refer to http://[employer]/faq/FNG461 (This link is being provided for informational/ educational purposes only.) Hepatitis B Core Antibody Total NON-REACT TAWNYA NON-REACT [facility] [employer] Comment: For additional information, please refer to http://[employer]/faq/PVD267 (This link is being provided for informational/ educational purposes only.) Hepatitis C Antibody NON-REACT TAWNYA NON-REACT [facility] [employer] Comment: HCV antibody was non-reactive. There is no laboratory evidence of HCV infection. In most cases, no further action is required. However, if recent HCV exposure is suspected, a test for HCV RNA (test code 37245) is suggested. For additional information please refer to http://[employer]/faq/TIC58u9 (This link is being provided for informational/ educational purposes only.) 02/22/2023 1:46 PM EDT 02/22/2023 1:46 PM EDT Narrative [facility] - 02/26/2023 7:51 PM EDT FASTING:NO FASTING: NO Marc GEIGER LAB BLOOD ORDERABLES Final Res ult [facility] [address], [place] [address] [facility] [address] [place] [address] from Last 3 Months or Most Recently Relevant to Health Maintenance Insurance [facility] C3 DENTAL-[facility] MEDICAID STAND ADULT Care Teams Anodic Treater Relationship Specialty Start Date End Date Yecenia Frias FNP [address] [place] [address] PCP - General Family Medicine 04/26/24 Colby Hirsch FNP Nurse Practitioner Family Medicine 07/13/23 Candice Ugarte Assembler 1St ShiftHeadrig Sawyer 12/27/23
--- OUTSIDE RECORDS SUMMARY | 2025-05-28 17:32 | XMS_ITS | Encounter Summary ---
Author Organization [employer] Address [address] [facility] 7t [place] [address] Care Team Providers Care Director Of Student Life Name Role Phone Radha Shah ICD 9 CODER Primary Care Provider +1 Colby Hirsch Unavailable Unavailable [facility] Primary Care Provider [phone] Reason for Visit * Reason Comments Med Refill Encounter Details Date Type Department Care Team (Late st Contact Info) Description 11/24/2023 Refill [facility] [address] [place] [address] Radha Shah FNP [address] [place] [address] Multiple joint pain Social History Tobacco Use [...] Description 07/04/2025 2:00 PM EST Office Visit [address] [address] Yecenia Frias FNP [address] [place] [address] 08/01/2025 2:00 PM EST Clinical Support [address] [address] Kira Bansal RN documented as of this encounter Visit Diagnoses Diagnosis Multiple joint pain Pain in joint, multiple sites documented in this encounter Additional Health Concerns Assessment Noted Time PHQ-9 Depression Total Score: 8 09/02/19 24 11:12 AM EST documented as of this encounter Care Teams Director Of Student Life Relationship Specialty Start Date End Date Radha Shah FNP [address] [place] [address] PCP - General Family Medicine 04/21/23 04/25/24 Yecenia Frias FNP [address] [place] [address] PCP - General Family Medicine 04/26/24 Colby Hirsch FNP [address] [place] [address] Nurse Practitioner Family Medicine 07/13/23 Candice Ugarte Riddler OperatorSock Mender 12/27/23 documented as of this encounter
--- OUTSIDE RECORDS SUMMARY | 2025-05-28 17:32 | XMS_ITS | Encounter Summary ---
Author Organization [employer] Address [address] [facility] [address] 7t [place] [address] Care Team Providers Care Physician Practice Coordinator Name Role Phone Radha Shah Primary Care Provider +[phone] Colby Hirsch Unavailable Unavailable [facility] WETLANDS TECHNICIAN Primary Care Provider [phone] Encounter Details Date Type Department Care Team (Late st Contact Info) Description 10/29/2023 Orders Only [facility] MED & PEDS [address] [place] [address] Radha Shah FNP [address] [place] [address] Social History Tobacco Use Types Packs/Day Years [...] Description 07/04/2025 2:00 PM EST Office Visit [address] [address] Yecenia Frias FNP [address] [place] [address] 08/01/2025 2:00 PM EST Clinical Support [address] [address] Kira Bansal RN documented as of this encounter Visit Diagnoses Not on filedocumented in this encounter Additional Health Concerns Assessment Noted Time PHQ-9 Depression Total Score: 8 09/02/19 24 11:12 AM EST documented as of this encounter Care Teams Physician Practice Coordinator Relationship Specialty Start Date End Date Radha Shah FNP [address] [place] [address] PCP - General Family Medicine 04/21/23 04/25/24 Yecenia Frias FNP [address] [place] [address] PCP - General Family Medicine 04/26/24 Colby Hirsch FNP [address] [place] [address] Nurse Practitioner Family Medicine 07/13/23 Candice Ugarte Engine House HelperCold Type Artist 12/27/23 documented as of this encounter
--- OUTSIDE RECORDS SUMMARY | 2025-05-28 17:32 | XMS_ITS | Patient Health Record ---
Author Organization [facility] Address [address] [place] [address] Care Team Providers Care Business Process Manager Name Role Phone Radha Rodriguez Primary Care Provider Jaylan Clancy Unavailable [phone] Allergies Allergen (clinical drug ingredient) Drug/Non Drug Allergy documented on EMR Reaction Allergy Type Onset Date Status trazodone Trazodone HCl Unknown Drug Allergy Act arvin quetiapine Quetiapine Fumarate Unknown Drug Allergy Active Morphine Sulfate Unknown Drug Allergy Active diphenhydramine Benadryl Unknown Drug Allergy A ctive sea food (uncoded) Unknown Allergy A ctive Reason For Referral No Information Medications Medication [...] DAILY Oral for 30 Active Vitamin A 54385 UNIT TAKE 1 CAPSULE BY M OUTH [...] Problem Status W/U Status Risk Notes Problem 55071579 Epigastric abdom inal pain (R10.13) Active confirmed Problem 632149613 Irritable bowel syndrome with diarrhea (K58.0) Active confirmed Problem Elevated liver enzymes level (845683851) Elevated liver function tests (R79.89) Active confirmed Problem 231738751 Fatty liver (K76.0) Active confirmed Problem 311349980 Gastroesophageal reflux disease, esophagitis presence not specified (K21.9) Active confirmed Problem 768156493 Abdominal pain, right upper quadrant (R10.11) Active confirmed Encounters Encounter Location Date Provider Diagnosis [facility] [address] [facility] [address] [place] [address] 06/16/2024 Jaylan Neal Plan Of Treatment Pending Test Test Name Order Date BUN 12/29/2019 CREATININE 12/29/2019 LIVER PROFILE 02/04/2020 LIVER PROFILE 04/09/2020 LIVER PROFILE 12/29/2019 CBC w DIFF 12/29/2019 PROTHROMBIN TIME (PT, INR) 12/29/2019 [id number] (A1A) 12/29/2019 CAROTENE 12/29/2019 CERULOPLASMIN 12/29/2019 MITOCHONDRIAL [...] Start Date Coverage End Date MEDICAID OF [facility] [address] FELICITY CRUZ [phone] [id number] HARMAN LEUNG Self - patient is the insured Medical (General) History Medical History History ICD Code Asthma Denies [place],CVA,renal disease Migraines Anxiety, depression, bipolar disease NIDDM [...]
--- OUTSIDE RECORDS SUMMARY | 2025-05-28 17:32 | XMS_ITS | Encounter Summary ---
Author Organization [employer] Address [address] [facility] 7t [place] [address] Care Team Providers Care Title I Teacher Name Role Phone Colby Hirsch FASHION MERCHANDISER Unavailable Unavailable [facility] Primary Care Provider [phone] Reason for Visit * Reason Comments Med Refill Encounter Details Date Type Department Care Team ([facility] st Contact Info) Description 01/02/2025 Refill [facility] MEDICINE 230 [place], [place] [phone] [facility] 230 [place] [address] Viral upper respiratory illness Social History Tobacco [...] 07/04/2025 2:00 PM EST Office Visit [address] [address] Yecenia Frias FNP [address] [place] [address] 08/01/2025 2:00 PM EST Clinical Support [address] [address] Kira Bansal RN documented as of this encounter Visit Diagnoses Diagnosis Viral upper respiratory illness documented in this encounter Additional Health Concerns Assessment Noted Time PHQ-9 Depression Total Score: 0 10/24/19 25 1:15 PM EST documented as of this encounter Care Teams Title I Teacher Relationship Specialty Start Date End Date Yecenia Frias FNP [address] [place] [address] PCP - General Family Medicine 04/26/24 Colby Hirsch FNP Nurse Practitioner Family Medicine 07/13/23 Candice Ugarte Aviation ConsultantGlass Blowing Instructor 12/27/23 documented as of this encounter
--- OUTSIDE RECORDS SUMMARY | 2025-05-28 17:32 | XMS_ITS | Encounter Summary ---
Author Organization [employer] Address 75 [facility] 7t [place] [address] Care Team Providers Care Air Traffic Control Operator Name Role Phone Marc Nicolas Primary Care Provider Unavail able Radha Shah SHIP CARPENTER Primary Care Provider [phone] Colby Hirsch Unavailable Unavailable [facility] SHIP CARPENTER Primary Care Provider [phone] Reason for Visit * Reason Onset Date Comments Referral 01/26/2023 Encounter Details Date Type Department Care Team (Late st Contact Info) Description 01/26/2023 Telephone [facility] MEDICINE 230 [place] [address] Marc Nicolas AGNP Referral Social History Tobacco [...] Description 07/04/2025 2:00 PM EST Office Visit [address] [address] AltagraciaYecenia whipple FNP [address] [place] [address] 08/01/2025 2:00 PM EST Clinical Support [address] [address] Kira Bansal RN documented as of this encounter Visit Diagnoses Not on filedocumented in this encounter Additional Health Concerns Assessment Noted Time PHQ-9 Depression Total Score: 19 023 3:57 PM EDT documented as of this encounter Care Teams Air Traffic Control Operator Relationship Specialty Start Date End Date Marc Nicolas AGNP PCP - General Family Medicine 10/22/22 04/20/23 Radha Shah FNP [address] [place] [address] PCP - General Family Medicine 04/21/23 04/25/24 ConroeYecenia FNP [address] [place] [address] PCP - General Family Medicine 04/26/24 Cobly Hirsch FNP [address] [place] [address] Nurse Practitioner Family Medicine 07/13/23 Candice Ugarte Service Parts CoordinatorMarket Development Director 12/27/23 documented as of this encounter
--- OUTSIDE RECORDS SUMMARY | 2025-05-28 17:32 | XMS_ITS | Encounter Summary ---
Author Organization [employer] Address [address] [facility] 7t [place] [address] Care Team Providers Care Heel Cementer Machine Name Role Phone Colby Hirsch DIE REPAIRER TRIMMER DIES Unavailable Unavailable [facility] Primary Care Provider [phone] Reason for Visit * Reason Comments Med Refill Encounter Details Date Type Department Care Team ([facility] st Contact Info) Description 04/18/2025 Refill [facility] MEDICINE 230 [place] [address] [facility] 230 [place] [address] Arthralgia, unspecified joint Social History Tobacco Use [...] 07/04/2025 2:00 PM EST Office Visit [address] [address] Yecenia Frias FNP [address] [place] [address] 08/01/2025 2:00 PM EST Clinical Support [address] [address] Kira Bansal RN documented as of this encounter Visit Diagnoses Diagnosis Arthralgia, unspecified joint documented in this encounter Additional Health Concerns Assessment Noted Time PHQ-9 Depression Total Score: 0 02/27/20 25 10:29 AM EDT documented as of this encounter Care Teams Heel Cementer Machine Relationship Specialty Start Date End Date Yecenia Frias FNP [address] [place] [address] PCP - General Family Medicine 04/26/24 Colby Hirsch FNP Nurse Practitioner Family Medicine 07/13/23 Candice Ugarte Cafe AssistantHot Header Operator 12/27/23 documented as of this encounter
--- OUTSIDE RECORDS SUMMARY | 2025-05-28 17:32 | XMS_ITS | Encounter Summary ---
Author Organization [employer] Address [address] [facility] 7t [place] [address] Care Team Providers Care Digital Content Specialist Name Role Phone Ruth Hoffmann RAIL WALKER Primary Care Provider Marc Nava Primary Care Provider Unavail able Radha Shah RAIL WALKER Primary Care Provider [phone] Colby HirschP Unavailable Unavailable [facility] RAIL WALKER Primary Care Provider [phone] Reason for Visit * Reason Onset Date Comments Appointment Request 10/01/2022 Encounter Details Date Type Department Care Team (Late st Contact Info) Description 10/01/2022 Telephone [facility] MEDICINE 230 [place] [address] Ruth Hoffmann FNP Appointment Request Social History [...] Description 07/04/2025 2:00 PM EST Office Visit [address] [address] Yecenia Frias FNP [address] [place] [address] 08/01/2025 2:00 PM EST Clinical Support [address] [address] Kira Bansal RN documented as of this encounter Visit Diagnoses Not on filedocumented in this encounter Care Teams Digital Content Specialist Relationship Specialty Start Date End Date Ruth Hofmfann FNP PCP - General Family Medicine 07/21/22 10/21/22 Marc Nicolas AGNP PCP - General Family Medicine 10/22/22 04/20/23 Radha Shah FNP [address] [place] [address] PCP - General Family Medicine 04/21/23 04/25/24 [place]Yecenia FNP [address] [place] [address] PCP - General Family Medicine 04/26/24 Colby Hirsch FNP [address] [place] [address] Nurse Practitioner Family Medicine 07/13/23 Candice Ugarte Welding Machine Operator Electro GasFieldwork Coordinator 12/27/23 documented as of this encounter
--- OUTSIDE RECORDS SUMMARY | 2025-05-28 17:33 | XMS_ITS | Encounter Summary ---
Author Organization [employer] Address 75 [facility] 7t [place] [address] Care Team Providers Care Steward/Stewardess Lounge Name Role Phone Marc Nicolas Primary Care Provider Unavail able Radha Shah OLDER ADULT SOCIAL WORK SPECIALIST Primary Care Provider [phone] Colby Hirsch Unavailable Unavailable [facility] OLDER ADULT SOCIAL WORK SPECIALIST Primary Care Provider [phone] Reason for Visit * Reason Onset Date Comments Results 04/09/2023 Encounter Details Date Type Department Care Team (Late st Contact Info) Description 04/09/2023 Telephone [facility] MEDICINE 230 [place] [address] Marc Nicloas AGNP Results Social History Tobacco Use Types [...] AM EDT FYI T/C to pt. Through [facility] id - [id number] for below message. Pt. States she is having apt. With Dr. Sims on 05/03/2023 and wants to discuss on that day. Pt. Advised to give call back on [phone] if any questions or concerns. Pt. Verbally agreed and understood. Please review and advise if needed. * Telephone Encounter - Romeo Child - 04/09/2023 12:19 PM EDT Tc from pt requesting status on results for Liver that were done a moth ago pt states. Please contact pt at [phone] Cay[place] Islander Speaker documented in this encounter Plan of Treatment Upcoming Encounters Date Type Department Care Team (Late st Contact Info) Description 07/04/2025 2:00 PM EST Office Visit [address] [address] Yecenia Frias FNP [address] [place] [address] 08/01/2025 2:00 PM EST Clinical Support [address] [address] Kira Bansal RN documented as of this encounter Visit Diagnoses Not on filedocumented in this encounter Additional Health Concerns Assessment Noted Time PHQ-9 Depression Total Score: 0 04/02/20 23 2:10 PM EDT documented as of this encounter Care Teams Steward/Stewardess Lounge Relationship Specialty Start Date End Date Marc Nicolas AGNP PCP - General Family Medicine 10/22/22 04/20/23 Radha Shah FNP [address] [place] [address] PCP - General Family Medicine 04/21/23 04/25/24 Yecenia Frias FNP [address] [place] [address] PCP - General Family Medicine 04/26/24 Colby Hirsch FNP 230 [place] [address] Nurse Practitioner Family Medicine 07/13/23 Candice Ugarte Transport RnCircular Saw Edge Fuser 12/27/23 documented as of this encounter
--- OUTSIDE RECORDS SUMMARY | 2025-05-28 17:33 | XMS_ITS | Encounter Summary ---
Author Organization [employer] Address 75 [facility] 7t [place] [address] Care Team Providers Care Rugby Union Footballer Name Role Phone Colby Hirsch POWER AND RECOVERY SUPERINTENDENT Unavailable Unavailable [facility] Primary Care Provider [phone] Reason for Visit * Reason Onset Date Comments Med Refill 09/29/2024 Encounter Details Date Type Department Care Team ([facility] st Contact Info) Description 09/29/2024 Telephone [facility] MEDICINE 230 [place], [place] [phone] [facility] 230 [place] [address] Med Refill Social History Tobacco Use Types [...] 50 MG tablet To be sent to: [facility] documented in this encounter Plan of Treatment Upcoming Encounters Date Type Department Care Team (Late st Contact Info) Description 07/04/2025 2:00 PM EST Office Visit [facility] MEDICINE 230 [place] [address] [facility] 230 [place], [place] [phone] 08/01/2025 2:00 PM EST Clinical Support [facility] MEDICINE 230 [place] [address] Kira Bansal RN documented as of this encounter Visit Diagnoses Not on filedocumented in this encounter Additional Health Concerns Assessment Noted Time PHQ-9 Depression Total Score: 7 03/07/20 24 10:13 AM EDT documented as of this encounter Care Teams Rugby Union Footballer Relationship Specialty Start Date End Date Yecenia Frias FNP 230 [place] [address] PCP - General Family Medicine 04/26/24 Colby Hirsch FNP Nurse Practitioner Family Medicine 07/13/23 Candice Ugarte LandscaperDirector Of Procurement 12/27/23 documented as of this encounter
--- OUTSIDE RECORDS SUMMARY | 2025-05-28 17:33 | XMS_ITS | Encounter Summary ---
Author Organization [employer] Address 75 [facility] 7t [place] [address] Care Team Providers Care Office Services Manager Name Role Phone Radha Shah BIOTECH PRODUCTION SPECIALIST Primary Care Provider [phone] Colby Hirsch Unavailable Unavailable [facility] Primary Care Provider [phone] Reason for Visit * Reason Comments Med Refill Encounter Details Date Type Department Care Team (Late st Contact Info) Description 07/02/2023 Refill [facility] MEDICINE 230 [place] [address] Radha Shah FNP 230 [place] [address] Multiple joint pain Social History Tobacco Use [...] Description 07/04/2025 2:00 PM EST Office Visit [address] [address] Yecenia Frias FNP [address] [place] [address] 08/01/2025 2:00 PM EST Clinical Support [address] [address] Kira Bansal, MEREDITH documented as of this encounter Visit Diagnoses Diagnosis Multiple joint pain Pain in joint, multiple sites documented in this encounter Additional Health Concerns Assessment Noted Time PHQ-9 Depression Total Score: 6 06/15/20 23 10:23 AM EDT documented as of this encounter Care Teams Office Services Manager Relationship Specialty Start Date End Date Radha Shah FNP [address] [place] [address] PCP - General Family Medicine 04/21/23 04/25/24 Yecenia Frias FNP [address] [place] [address] PCP - General Family Medicine 04/26/24 Colby Hirsch FNP 230 [place] [address] Nurse Practitioner Family Medicine 07/13/23 Candice Ugarte Hadoop DeveloperElectronic Installer 12/27/23 documented as of this encounter
--- OUTSIDE RECORDS SUMMARY | 2025-05-28 17:33 | XMS_ITS | Encounter Summary ---
Author Organization [employer] Address 75 [facility] 7t [place] [address] Care Team Providers Care Registered Respiratory Technician Name Role Phone Radha Shah TACK COVERER Primary Care Provider [phone] Colby Hirsch TACK COVERER Unavailable Unavailable [facility] TACK COVERER Primary Care Provider [phone] Reason for Visit * Reason Onset Date Comments Results 02/16/2024 Care Coordination 02/16/[address] Kelly joshua telephone call outreached Encounter Details Date Type Department Care Team ([facility] Contact Info) Description 02/16/2024 Telephone [facility] MEDICINE 230 [place] [address] Radha Shah FNP 230 [place] [address] Results; Care Coordination ([id number] telephone call outreached) Social History Tobacco [...] results: labs Date when done: 02/06 Facility: [facility] Please contact pt at [phone] documented in this encounter Plan of Treatment Upcoming Encounters Date Type Department Care Team (Late st Contact Info) Description 07/04/2025 2:00 PM EST Office Visit [address] [address] [address] [address] 08/01/2025 2:00 PM EST Clinical Support [facility] [place] [address] Kira Bansal RN documented as of this encounter Visit Diagnoses Not on filedocumented in this encounter Additional Health Concerns Assessment Noted Time PHQ-9 Depression Total Score: 6 12/28/19 24 11:17 AM EDT documented as of this encounter Care Teams Registered Respiratory Technician Relationship Specialty Start Date End Date [place] [address] PCP - General Family Medicine 04/21/23 04/25/24 ArnoldYecenia FNP [address] [place] [address] PCP - General Family Medicine 04/26/24 Colby Hirsch FNP [address] [place] [address] Nurse Practitioner Family Medicine 07/13/23 Candice Ugarte Powder NipperMachinist Mate 12/27/23 documented as of this encounter
--- OUTSIDE RECORDS SUMMARY | 2025-05-28 17:33 | XMS_ITS | Encounter Summary ---
Author Organization [employer] Address [address] [facility] [address] 7t [place] [address] Care Team Providers Care Mold Sander Name Role Phone Radha Shah CNC MILL AND LATHE OPERATOR Primary Care Provider + Colby Hirsch CNC MILL AND LATHE OPERATOR Unavailable Unavailable [facility] CNC MILL AND LATHE OPERATOR Primary Care Provider [phone] Reason for Visit * Reason Comments Med Refill Encounter Details Date Type Department Care Team (Late st Contact Info) Description 06/09/2023 Refill [facility] MEDICINE 230 [place] [address] Marilee Buckner FNP Multiple joint pain; Mixed [...] Description 07/04/2025 2:00 PM EST Office Visit [address] [address] VictorYecenia whipple [address] [address] 08/01/2025 2:00 PM EST Clinical Support [address] [address] Kira Bansal RN documented as of this encounter Visit Diagnoses Diagnosis Multiple joint pain Pain in joint, multiple sites Mixed anxiety and depressive disorder Dysthymic disorder documented in this encounter Additional Health Concerns Assessment Noted Time PHQ-9 Depression Total Score: 18 023 11:25 AM EDT documented as of this encounter Care Teams Mold Sander Relationship Specialty Start Date End Date Radha Shah FNP [address] [place] [address] PCP - General Family Medicine 04/21/23 04/25/24 VictorYecenia FNP [address] [place] [address] PCP - General Family Medicine 04/26/24 Colby Hirsch FNP [address] [place] [address] Nurse Practitioner Family Medicine 07/13/23 Candice Ugarte Ramp ManagerBehavioral Health Director 12/27/23 documented as of this encounter
--- OUTSIDE RECORDS SUMMARY | 2025-05-28 17:33 | XMS_ITS | Encounter Summary ---
Author Organization [employer] Address [address] [facility] [address] 7t [place] [address] Care Team Providers Care Natural Resource Technician Name Role Phone Radha Shah Primary Care Provider [phone] Colby Hirsch Unavailable Unavailable [facility] MACHINE OVERHAULER Primary Care Provider [phone] Encounter Details Date Type Department Care Team (Late st Contact Info) Description 02/16/2024 Orders Only [facility] MED & PEDS [address] [place] [address] Radha Shah FNP [address] [place] [address] Routine adult health maintenance (Primary Dx) Social [...] Description 07/04/2025 2:00 PM EST Office Visit [address] [address] Yecenia Frias FNP [address] [place] [address] 08/01/2025 2:00 PM EST Clinical Support [address] [address] Kira Bansal RN documented as of this encounter Visit Diagnoses Diagnosis Routine adult health maintenance- Primary documented in this encounter Additional Health Concerns Assessment Noted Time PHQ-9 Depression Total Score: 6 12/28/19 24 11:17 AM EDT documented as of this encounter Care Teams Natural Resource Technician Relationship Specialty Start Date End Date Radha Shah FNP [address] [place] [address] PCP - General Family Medicine 04/21/23 04/25/24 Yecenia Frias FNP [address] [place] [address] PCP - General Family Medicine 04/26/24 Colby Hirsch FNP [address] [place] [address] [place] [address] Nurse Practitioner Family Medicine 07/13/23 Candice Ugarte Child PsychometristProduction Director 12/27/23 documented as of this encounter
--- OUTSIDE RECORDS SUMMARY | 2025-05-28 17:33 | XMS_ITS | Encounter Summary ---
Author Organization [employer] Address [address] [facility] [address] 7t [place] [address] Care Team Providers Care Medical Clerk Name Role Phone Radha Shah MILK TESTER Primary Care Provider [phone] Colby Hirsch MILK TESTER Unavailable Unavailable [facility] MILK TESTER Primary Care Provider [phone] Reason for Visit * Reason Comments Med Refill Encounter Details Date Type Department Care Team (Late st Contact Info) Description 06/04/2023 Refill [facility] MEDICINE 230 [place] [address] Marilee Buckner FNP Multiple joint pain; Mixed [...] 07/04/2025 2:00 PM EST Office Visit [facility] MEDICINE [address] [place] [address] Yecenia Frias FNP [address] [place] [address] 08/01/2025 2:00 PM EST Clinical Support [address] [address] Kira Bansal, RN documented as of this encounter Visit Diagnoses Diagnosis Multiple joint pain Pain in joint, multiple sites Mixed anxiety and depressive disorder Dysthymic disorder documented in this encounter Additional Health Concerns Assessment Noted Time PHQ-9 Depression Total Score: 0 04/02/20 23 2:10 PM EDT documented as of this encounter Care Teams Medical Clerk Relationship Specialty Start Date End Date Radha Shah FNP [address] [place] [address] PCP - General Family Medicine 04/21/23 04/25/24 ToxeyYecenia FNP [address] [place] [address] PCP - General Family Medicine 04/26/24 Colby Hirsch FNP [address] [place] [address] Nurse Practitioner Family Medicine 07/13/23 Candice Ugarte Manufacturing Engineer ChiefGo Cart Mechanic 12/27/23 documented as of this encounter
--- OUTSIDE RECORDS SUMMARY | 2025-05-28 17:33 | XMS_ITS | Encounter Summary ---
Author Organization [employer] Address 75 [facility] 7t [place] [address] Care Team Providers Care Nibbler Operator Name Role Phone Radha Shah DECONTAMINATION TECHNICIAN Primary Care Provider +[phone] Colby Hirsch DECONTAMINATION TECHNICIAN Unavailable Unavailable [facility] DECONTAMINATION TECHNICIAN Primary Care Provider [phone] Reason for Visit * Reason Comments Med Refill Encounter Details Date Type Department Care Team (Late st Contact Info) Description 06/16/2023 Refill [facility] 230 [place] [address] Marc Nicolas AGNP Pain Social History Tobacco [...] Description 07/04/2025 2:00 PM EST Office Visit [address] [address] [place] [address] [address] 08/01/2025 2:00 PM EST Clinical Support [address] [address] Kira Bansal RN documented as of this encounter Visit Diagnoses Diagnosis Pain Generalized pain documented in this encounter Additional Health Concerns Assessment Noted Time PHQ-9 Depression Total Score: 6 06/15/20 23 10:23 AM EDT documented as of this encounter Care Teams Nibbler Operator Relationship Specialty Start Date End Date Radah Shah FNP [address] [place] [address] PCP - General Family Medicine 04/21/23 04/25/24 [place] FNP [address] [place] [address] PCP - General Family Medicine 04/26/24 Colby Hirsch FNP [address] [place] [address] Nurse Practitioner Family Medicine 07/13/23 Candice Ugarte Weatherization Crew LeaderDumpster Driver 12/27/23 documented as of this encounter
--- OUTSIDE RECORDS SUMMARY | 2025-05-28 17:33 | XMS_ITS | Encounter Summary ---
Author Organization [employer] Address 75 [facility] 7t [place] [address] Care Team Providers Care Bonbon Dipper Name Role Phone Marc Nicolas Primary Care Provider Unavail able Radha Shah Primary Care Provider +[phone] Colby Hirsch Unavailable Unavailable [facility] Primary Care Provider [phone] Reason for Visit * Reason Comments Med Refill Encounter Details Date Type Department Care Team (Late st Contact Info) Description 04/08/2023 Refill [facility] 230 [place], [place] [phone] Marc Nicolas AGNP Schizoaffective disorder, depressive type [...] Description 07/04/2025 2:00 PM EST Office Visit [facility] 230 [place], [place] [phone] [facility] 230 [place] [address] 08/01/2025 2:00 PM EST Clinical Support [facility] 230 [place] [address] Kira Bansal, RN documented as of this encounter Visit Diagnoses Diagnosis Schizoaffective disorder, depressive type (CMS/HCC) (HCC) Schizoaffective disorder, unspecified condition Mixed anxiety and depressive disorder Dysthymic disorder documented in this encounter Additional Health Concerns Assessment Noted Time PHQ-9 Depression Total Score: 0 04/02/20 2:10 PM EDT documented as of this encounter Care Teams Bonbon Dipper Relationship Specialty Start Date End Date Marc Nicolas AGNP PCP - General Family Medicine 10/22/22 04/20/23 [place] [address] PCP - General Family Medicine 04/21/23 04/25/24 [place] [address] PCP - General Family Medicine 04/26/24 Colby Hirsch FNP [address] [place] [address] Nurse Practitioner Family Medicine 07/13/23 Candice Ugarte Internist Medical Doctor MdSeater Grinder 12/27/23 documented as of this encounter
--- OUTSIDE RECORDS SUMMARY | 2025-05-28 17:33 | XMS_ITS | Encounter Summary ---
Author Organization [employer] Address 75 [facility] 7t [place] [address] Care Team Providers Care Plumbing Inspector Name Role Phone Colby Hirsch HYDRO EXCAVATION OPERATOR Unavailable Unavailable [facility] Primary Care Provider [phone] Encounter Details Date Type Department Care Team ([facility] st Contact Info) Description 08/11/2024 Telephone [facility] 230 [place] [address] [facility] 230 [place] [address] Social History Tobacco Use Types Packs/Day Years [...] Description 07/04/2025 2:00 PM EST Office Visit [address] [address] [place] whipple [address] [address] 08/01/2025 2:00 PM EST Clinical Support [address] [address] Kira Bansal RN documented as of this encounter Visit Diagnoses Not on filedocumented in this encounter Additional Health Concerns Assessment Noted Time PHQ-9 Depression Total Score: 7 03/07/20 24 10:13 AM EDT documented as of this encounter Care Teams Plumbing Inspector Relationship Specialty Start Date End Date AltagraciaYecenia whipple FNP [address] [place] [address] PCP - General Family Medicine 04/26/24 Colby Hirsch FNP Nurse Practitioner Family Medicine 07/13/23 Candice Ugarte Saw SetterCafe Lead 12/27/23 documented as of this encounter
--- OUTSIDE RECORDS SUMMARY | 2025-05-28 17:33 | XMS_ITS | Encounter Summary ---
Author Organization [employer] Address 75 [facility] 7t [place] [address] Care Team Providers Care Kiss Machine Operator Name Role Phone Marc Nicolas Primary Care Provider Unavail able Radha Shah Primary Care Provider + Colby Hirsch Unavailable Unavailable [facility] Primary Care Provider [phone] Reason for Visit * Reason Comments Med Refill Encounter Details Date Type Department Care Team (Late Contact Info) Description 04/08/2023 Refill [facility] 230 [place] [address] Marc Nicolas AGNP Mixed anxiety and depressive [...] Description 07/04/2025 2:00 PM EST Office Visit [facility] 230 [place], [place] [phone] [facility] 230 [place], [place] [phone] 08/01/2025 2:00 PM EST Clinical Support [facility] [address] [place] [address] Kira Bansal, MEREDITH documented as of this encounter Visit Diagnoses Diagnosis Mixed anxiety and depressive disorder Dysthymic disorder documented in this encounter Additional Health Concerns Assessment Noted Time PHQ-9 Depression Total Score: 0 04/02/20 2:10 PM EDT documented as of this encounter Care Teams Kiss Machine Operator Relationship Specialty Start Date End Date Marc Nicolas AGNP PCP - General Family Medicine 10/22/22 04/20/23 Radha Shah FNP 230 [place] [address] PCP - General Family Medicine 04/21/23 04/25/24 Yecenia Frias FNP 230 [place] [address] PCP - General Family Medicine 04/26/24 Colby Hirsch FNP [address] [place] [address] Nurse Practitioner Family Medicine 07/13/23 Candice Ugarte Sample ExaminerAdministrative Processor 12/27/23 documented as of this encounter
--- OUTSIDE RECORDS SUMMARY | 2025-05-28 17:33 | XMS_ITS | Encounter Summary ---
Author Organization [employer] Address 75 [facility] 7t [place] [address] Care Team Providers Care Braille Translator Name Role Phone Marc Nicolas Primary Care Provider Unavail able Radha Shah Primary Care Provider [phone] Colby Hirsch Unavailable Unavailable [facility] DELIVERY DIRECTOR Primary Care Provider [phone] Reason for Visit * Reason Onset Date Comments Med Refill 03/16/2023 Encounter Details Date Type Department Care Team (Late st Contact Info) Description 03/16/2023 Telephone [facility] 230 [place], [place] [phone] Marc Nicolas AGNP Med Refill Social History [...] 03/16/2023 3:56 PM EDT Pt scheduled for BINDING CUTTER RV 03/17/23 @ 10am. Tramadol refill due 03/19/23, Clonazepam refill due 03/18/23.Will forward request to PCP after BINDING CUTTER appt 03/17/23. * Telephone Encounter - Natividad Pate - 03/16/2023 3:36 PM EDT Tc from pt requesting medication refill on traMADol (Ultram) 50 MG tablet and clonazePAM (KlonoPIN)0.5 MG tablet documented in this encounter Plan of Treatment Upcoming Encounters Date Type Department Care Team (Late st Contact Info) Description 07/04/2025 2:00 PM EST Office Visit [address] [address] [place]ecenia Frias [address] [address] 08/01/2025 2:00 PM EST Clinical Support [address] [address] Kira Bansal RN documented as of this encounter Visit Diagnoses Not on filedocumented in this encounter Additional Health Concerns Assessment Noted Time PHQ-9 Depression Total Score: 13 023 3:27 PM EDT documented as of this encounter Care Teams Braille Translator Relationship Specialty Start Date End Date Marc Nicolas AGNP PCP - General Family Medicine 10/22/22 04/20/23 Radha Shah FNP [address] [place] [address] PCP - General Family Medicine 04/21/23 04/25/24 [place] whipple FNP [address] [place] [address] PCP - General Family Medicine 04/26/24 Colby Hirsch FNP 230 [place] [address] Nurse Practitioner Family Medicine 07/13/23 Candice Ugarte Computer Peripheral Equipment OperatorTurret Lathe Tender 12/27/23 documented as of this encounter
--- OUTSIDE RECORDS SUMMARY | 2025-05-28 17:33 | XMS_ITS | Encounter Summary ---
Author Organization [employer] Address 75 [facility] 7t [place] [address] Care Team Providers Care Senior Clinical Study Manager Name Role Phone Marc Nicolas Primary Care Provider Unavail able Radha Shah Primary Care Provider [phone] Colby Hirsch Unavailable Unavailable [facility] SENIOR POLICY ADVISOR Primary Care Provider [phone] Reason for Visit * Reason Onset Date Comments Med Refill 03/10/2023 Encounter Details Date Type Department Care Team ([facility] Contact Info) Description 03/10/2023 Telephone [facility] 230 [place], [place] [phone] Marc Nicolas AGNP Med Refill Social History [...] Upcoming Encounters Date Type Department Care Team ([facility] Contact Info) Description 07/04/2025 2:00 PM EST Office Visit [facility] [address] [place] [address] [place] FNP 230 [place] [address] 08/01/2025 2:00 PM EST Clinical Support [facility] 230 [place], [place] [phone] Kira Bansal RN documented as of this encounter Visit Diagnoses Not on filedocumented in this encounter Additional Health Concerns Assessment Noted Time PHQ-9 Depression Total Score: 13 023 3:27 PM EDT documented as of this encounter Care Teams Senior Clinical Study Manager Relationship Specialty Start Date End Date Marc Nicolas AGNP PCP - General Family Medicine 10/22/22 04/20/23 Radha Shah FNP [address] [place] [address] PCP - General Family Medicine 04/21/23 04/25/24 [place] FNP [address] [place] [address] PCP - General Family Medicine 04/26/24 Colby Hirsch FNP [address] [place] [address] Nurse Practitioner Family Medicine 07/13/23 Candice Ugarte Public Information Relations ManagerAoc Plans Intelligence Officer Chief 12/27/23 documented as of this encounter
--- OUTSIDE RECORDS SUMMARY | 2025-05-28 17:33 | XMS_ITS | Encounter Summary ---
Author Organization [employer] Address 75 [facility] 7t [place] [address] Care Team Providers Care Rn Transfer Name Role Phone Radha Shah WAITANGI TRIBUNAL MEMBER Primary Care Provider [phone] Colby Hirsch Unavailable Unavailable [facility] WAITANGI TRIBUNAL MEMBER Primary Care Provider [phone] Reason for Visit * Reason Comments Med Refill Encounter Details Date Type Department Care Team (Late st Contact Info) Description 06/28/2023 Refill [facility] [address] [place] [address] Radha Shah FNP 230 [place] [address] Schizoaffective disorder, depressive type (CMS/HCC) Social History [...] Description 07/04/2025 2:00 PM EST Office Visit [address] [address] [address] [address] 08/01/2025 2:00 PM EST Clinical Support [address] [address] Kira Bansal RN documented as of this encounter Visit Diagnoses Diagnosis Schizoaffective disorder, depressive type (CMS/HCC) ([facility]) Schizoaffective disorder, unspecified condition documented in this encounter Additional Health Concerns Assessment Noted Time PHQ-9 Depression Total Score: 6 06/15/20 23 10:23 AM EDT documented as of this encounter Care Teams Rn Transfer Relationship Specialty Start Date End Date Radha Shah FNP [address] [place] [address] [phone] PCP - General Family Medicine 04/21/23 04/25/24 [place] [facility] [address] [place] [address] PCP - General Family Medicine 04/26/24 Colby Hirsch FNP [address] [place] [address] Nurse Practitioner Family Medicine 07/13/23 Candice Ugarte Yard DriverGun Sealing Machine Operator 12/27/23 documented as of this encounter
--- OUTSIDE RECORDS SUMMARY | 2025-05-28 17:33 | XMS_ITS | Encounter Summary ---
Author Organization [employer] Address 75 [facility] 7t [place] [address] Care Team Providers Care Lining Inserter Name Role Phone Marc Nicolas Primary Care Provider Unavail able Radha Shah Primary Care Provider [phone] Colby Hirsch Unavailable Unavailable [facility] CLIENT SERVICES ANALYST Primary Care Provider [phone] Reason for Visit * Reason Onset Date Comments Med Refill 04/09/2023 Encounter Details Date Type Department Care Team (Late st Contact Info) Description 04/09/2023 Refill [facility] 230 [place] [address] Marc Nicolas AGNP Mixed anxiety and depressive [...] (KlonoPIN) 0.5 MG tablet Please sent to [facility] - [place], [place] - [address] [place] [address] documented in this encounter Plan of Treatment Upcoming Encounters Date Type Department Care Team (Late st Contact Info) Description 07/04/2025 2:00 PM EST Office Visit [address] [address] Yecenia Frias FNP [address] [place] [address] 08/01/2025 2:00 PM EST Clinical Support [address] [address] Kira Bansal RN documented as of this encounter Visit Diagnoses Diagnosis Mixed anxiety and depressive disorder Dysthymic disorder documented in this encounter Additional Health Concerns Assessment Noted Time PHQ-9 Depression Total Score: 0 04/02/20 2:10 PM EDT documented as of this encounter Care Teams Lining Inserter Relationship Specialty Start Date End Date Marc Nicolas AGNP PCP - General Family Medicine 10/22/22 04/20/23 Radha Shah FNP [address] [place] [address] PCP - General Family Medicine 04/21/23 04/25/24 Yecenia Frias FNP [address] [place] [address] PCP - General Family Medicine 04/26/24 Colby Hirsch FNP [address] [place] [address] Nurse Practitioner Family Medicine 07/13/23 Candice Ugarte Outside Plant TechnicianLawyer Real Estate 12/27/23 documented as of this encounter
--- OUTSIDE RECORDS SUMMARY | 2025-05-28 17:33 | XMS_ITS | Encounter Summary ---
Author Organization [employer] Address 75 [facility] 7t [place] [address] Care Team Providers Care Transportation Engineering Technician Name Role Phone Colby Hirsch FITTING ROOM OPERATOR Unavailable Unavailable [facility] Primary Care Provider [phone] Reason for Visit * Reason Comments Med Refill Encounter Details Date Type Department Care Team ([facility] st Contact Info) Description 10/31/[address] [facility] 230 [place], [place] [phone] [facility] 230 [place] [address] Type 2 diabetes mellitus without complication, with long-term current use of insulin ([facility]) Social History Tobacco Use Types Packs/Day [...] 07/04/2025 2:00 PM EST Office Visit [address] [address] Yecenia Frias FNP [address] [place] [address] 08/01/2025 2:00 PM EST Clinical Support [address] [address] Kira Bansal RN documented as of this encounter Visit Diagnoses Diagnosis Type 2 diabetes mellitus without complication, with long-term current use of insulin (HCC) documented in this encounter Additional Health Concerns Assessment Noted Time PHQ-9 Depression Total Score: 0 10/24/19 25 1:15 PM EST documented as of this encounter Care Teams Transportation Engineering Technician Relationship Specialty Start Date End Date Yecenia Frias FNP [address] [place] [address] PCP - General Family Medicine 04/26/24 Colby Hirsch FNP Nurse Practitioner Family Medicine 07/13/23 Candice Ugarte Net Developer ArchitectEquipment Maintenance Engineer 12/27/23 documented as of this encounter
--- OUTSIDE RECORDS SUMMARY | 2025-05-28 17:33 | XMS_ITS | Encounter Summary ---
Author Organization [employer] Address 75 [facility] 7t [place] [address] Care Team Providers Care Spanish Moss Picker Name Role Phone Radha Shah COMMERCIAL LINES ACCOUNT MANAGER Primary Care Provider +[phone] Colby Hirsch Unavailable Unavailable [facility] Primary Care Provider [phone] Encounter Details Date Type Department Care Team (Late st Contact Info) Description 02/17/2024 Community Care Management [facility]INE 230 [place] [address] Radha Shah FNP 230 [place] [address] Social History Tobacco Use Types Packs/Day Years [...] Description 07/04/2025 2:00 PM EST Office Visit [address] [address] Yecenia Frias FNP [address] [place] [address] 08/01/2025 2:00 PM EST Clinical Support [address] [address] Kira Bansal RN documented as of this encounter Visit Diagnoses Not on filedocumented in this encounter Additional Health Concerns Assessment Noted Time PHQ-9 Depression Total Score: 6 12/28/19 24 11:17 AM EDT documented as of this encounter Care Teams Spanish Moss Picker Relationship Specialty Start Date End Date Radha Shah FNP [address] [place] [address] PCP - General Family Medicine 04/21/23 04/25/24 Yecenia Frias FNP [address] [place] [address] PCP - General Family Medicine 04/26/24 Colby Hirsch FNP [address] [place] [address] Nurse Practitioner Family Medicine 07/13/23 Candice Ugarte Automatic Pinsetter MechanicRubber Mixer 12/27/23 documented as of this encounter
--- OUTSIDE RECORDS SUMMARY | 2025-05-28 17:33 | XMS_ITS | Encounter Summary ---
Author Organization [employer] Address 75 [facility] 7t [place] [address] Care Team Providers Care Voltage Inspector Name Role Phone PabloDanymargie CASEY Primary Care Provider +[phone] Colby Hirsch Unavailable Unavailable [facility] Primary Care Provider [phone] Reason for Visit * Reason Comments Med Refill Encounter Details Date Type Department Care Team (Late st Contact Info) Description 01/04/2024 Refill [facility] 230 [place] [address] Colby Hirsch FNP Social History Tobacco Use [...] 07/04/2025 2:00 PM EST Office Visit [address] [address] [place] [address] [address] 08/01/2025 2:00 PM EST Clinical Support [address] [address] Kira Bansal RN documented as of this encounter Visit Diagnoses Not on filedocumented in this encounter Additional Health Concerns Assessment Noted Time PHQ-9 Depression Total Score: 6 12/28/19 24 11:17 AM EDT documented as of this encounter Care Teams Voltage Inspector Relationship Specialty Start Date End Date Radha Shah FNP [address] [place] [address] PCP - General Family Medicine 04/21/23 04/25/24 [place] FNP [address] [place] [address] PCP - General Family Medicine 04/26/24 Colby Hirsch FNP [address] [place] [address] Nurse Practitioner Family Medicine 07/13/23 Candice Ugarte Air Twister WinderCorporate Operations Compliance Manager 12/27/23 documented as of this encounter
--- OUTSIDE RECORDS SUMMARY | 2025-05-28 17:33 | XMS_ITS | Encounter Summary ---
Author Organization [employer] Address [address] [facility] [address] 7t [place] [address] Care Team Providers Care Sanitation Superintendent Name Role Phone Radha Shah Primary Care Provider +[phone] Colby Hirsch Unavailable Unavailable [facility] ORANGE PICKER Primary Care Provider [phone] Encounter Details Date Type Department Care Team (Late st Contact Info) Description 03/08/2024 Orders Only [facility]S [address] [place] [address] Radha Shah FNP [address] [place] [address] Social History Tobacco Use Types Packs/Day Years [...] 07/04/2025 2:00 PM EST Office Visit [address] [address] Yecenia Frias FNP [address] [place] [address] 08/01/2025 2:00 PM EST Clinical Support [address] [address] Kira Bansal RN documented as of this encounter Visit Diagnoses Not on filedocumented in this encounter Additional Health Concerns Assessment Noted Time PHQ-9 Depression Total Score: 7 03/07/20 24 10:13 AM EDT documented as of this encounter Care Teams Sanitation Superintendent Relationship Specialty Start Date End Date Radha Shah FNP [address] [place] [address] PCP - General Family Medicine 04/21/23 04/25/24 Yecenia Frias FNP [address] [place] [address] PCP - General Family Medicine 04/26/24 Colby Hirsch FNP [address] [place] [address] Nurse Practitioner Family Medicine 07/13/23 Candice Ugarte Flight Software Test EngineerLearning Support Services Director 12/27/23 documented as of this encounter
--- OUTSIDE RECORDS SUMMARY | 2025-05-28 17:33 | XMS_ITS | Encounter Summary ---
Author Organization [employer] Address 75 [facility] 7t [place] [address] Care Team Providers Care Wealth Management Manager Name Role Phone Marc Nicolas Primary Care Provider Unavail able Radha Shah PRACTICING DERMATOLOGIST Primary Care Provider + Colby Hirsch Unavailable Unavailable [facility] Primary Care Provider [phone] Reason for Visit * Reason Comments Med Refill Encounter Details Date Type Department Care Team (Late Contact Info) Description 04/07/2023 Refill [facility] 505 [place], [place] [phone] Marc Nicolas AGNP Multiple joint pain Social [...] Upcoming Encounters Date Type Department Care Team ([facility] Contact Info) Description 07/04/2025 2:00 PM EST Office Visit [facility] 230 [place], [place] [phone] [facility] 230 [place], [place] [phone] 08/01/2025 2:00 PM EST Clinical Support [facility] 230 [place] [address] Kira Bansal RN documented as of this encounter Visit Diagnoses Diagnosis Multiple joint pain Pain in joint, multiple sites documented in this encounter Additional Health Concerns Assessment Noted Time PHQ-9 Depression Total Score: 0 04/02/20 2:10 PM EDT documented as of this encounter Care Teams Wealth Management Manager Relationship Specialty Start Date End Date Marc Nicolas AGNP PCP - General Family Medicine 10/22/22 04/20/23 Radha Shah FNP 230 [place] [address] PCP - General Family Medicine 04/21/23 04/25/24 Yecenia Frias FNP 230 [place] [address] PCP - General Family Medicine 04/26/24 Colby Hirsch FNP [address] [place] [address] Nurse Practitioner Family Medicine 07/13/23 Candice Ugarte Closed Circuit Screen WatcherInstructor Hairspring 12/27/23 documented as of this encounter
--- OUTSIDE RECORDS SUMMARY | 2025-05-28 17:33 | XMS_ITS | Encounter Summary ---
Author Organization [employer] Address 75 [facility] 7t [place] [address] Care Team Providers Care Kitchen Worker Name Role Phone Marc Nicolas Primary Care Provider Unavail able Rahda Shah Primary Care Provider +6 Colby Hirsch Unavailable Unavailable [facility] SPOOL CARRIER Primary Care Provider [phone] Reason for Visit * Reason Comments Med Refill Encounter Details Date Type Department Care Team (Late st Contact Info) Description 03/10/2023 Refill [facility] [address] [place], [place] [id number] Marc Nicolas AGNP Mixed anxiety and depressive [...] Office Visit [facility] [address] [place] [address] MendotaYecenia FNP Ld [facility] [place] [address] 08/01/2025 2:00 PM EST Clinical Support [facility] [place] [place] [address] Kira Bansal, MEREDITH documented as of this encounter Visit Diagnoses Diagnosis Mixed anxiety and depressive disorder Dysthymic disorder documented in this encounter Additional Health Concerns Assessment Noted Time PHQ-9 Depression Total Score: 13 023 3:27 PM EDT documented as of this encounter Care Teams Kitchen Worker Relationship Specialty Start Date End Date Marc Nicolas AGNP PCP - General Family Medicine 10/22/22 04/20/23 Radha Shah F[facility] [place] [place] [address] PCP - General Family Medicine 04/21/23 04/25/24 MendotaYecenia FNP Ld [facility] [place] [address] PCP - General Family Medicine 04/26/24 Colby Hirsch FNP [facility] [place] [place] [address] Nurse Practitioner Family Medicine 07/13/23 Candice Ugarte Corporate Development AnalystAnesthesiology Physician 12/27/23 documented as of this encounter
--- OUTSIDE RECORDS SUMMARY | 2025-05-28 17:33 | XMS_ITS | Encounter Summary ---
Author Organization [employer] Address [address] [facility] [address] 7t [place] [address] Care Team Providers Care Morning Babysitter Name Role Phone Radha Shah EDUCATION TRAINER Primary Care Provider + Colby Hirsch Unavailable Unavailable [facility] EDUCATION TRAINER Primary Care Provider [phone] Encounter Details Date Type Department Care Team (Late st Contact Info) Description 04/24/2024 Orders Only [facility] [address] [place] [address] Radha Shah FNP [address] [place] [address] Elevated lipids (Primary Dx) Social History Tobacco [...] 07/04/2025 2:00 PM EST Office Visit [address] [address] [place], [place], [facility] [address] [place] [address] 08/01/2025 2:00 PM EST Clinical Support [address] [address] Kira Bansal RN documented as of this encounter Procedures Procedure Name Priority Date/Time Associated Diagnosis Comments LIPID PANEL, STANDARD Routine 05/12/2024 11:00 AM EDT Elevated lipids documented in this encounter Results * (ABNORMAL) Lipid Panel, Standard (05/12/2024 11:00 AM EDT) Triglycerides 100 <150 mg/dL [facility] Comment:Desirable Triglyceri de: less than 150 [...] 190 mg/dL HDL Cholesterol 37(L) >40 mg/dL [facility] Comment:Desirable HDL: great er than 40 mg/dL Note: This HDL assay may give artificially low results in patients with liver disease. Blood Venous blood specimen / Unknown 05/12/2024 11:00 AM EDT 05/12/2024 11:00 AM EDT Radha CASEY LAB BLOOD ORDERABLES Final Resu lt [facility] [address] [place] [address] [phone] documented in this encounter Visit Diagnoses Diagnosis Elevated lipids- Primary documented in this encounter Additional Health Concerns Assessment Noted Time PHQ-9 Depression Total Score: 7 03/07/20 24 10:13 AM EDT documented as of this encounter Care Teams Morning Babysitter Relationship Specialty Start Date End Date Radha Shah FNP [address] [place] [address] PCP - General Family Medicine 04/21/23 04/25/24 WaukeeYecenia FNP [address] [place] [address] PCP - General Family Medicine 04/26/24 Colby Hirsch FNP [address] [place] [address] Nurse Practitioner Family Medicine 07/13/23 Candice Ugarte Air Traffic Systems TechnicianHouse Steward/Stewardess 12/27/23 documented as of this encounter
--- OUTSIDE RECORDS SUMMARY | 2025-05-28 17:33 | XMS_ITS | Encounter Summary ---
Author Organization [employer] Address 75 [facility] 7t [place] [address] Care Team Providers Care An Employee Sponsor Or Advocate And Name Role Phone Radha Shah RING CUTTER LATHE OPERATOR Primary Care Provider +2 Colby Hirsch Unavailable Unavailable [facility] Primary Care Provider [phone] Reason for Visit * Reason Comments Med Refill Encounter Details Date Type Department Care Team (Late st Contact Info) Description 02/16/2024 Refill [facility] [address] [place] [address] Radha Shah FNP [address] [place] [address] Multiple joint pain Social History Tobacco Use [...] Description 07/04/2025 2:00 PM EST Office Visit [address] [address] Yecenia Frias FNP [address] [place] [address] 08/01/2025 2:00 PM EST Clinical Support [address] [address] Kira Bansal, MEREDITH documented as of this encounter Visit Diagnoses Diagnosis Multiple joint pain Pain in joint, multiple sites documented in this encounter Additional Health Concerns Assessment Noted Time PHQ-9 Depression Total Score: 6 12/28/19 24 11:17 AM EDT documented as of this encounter Care Teams An Employee Sponsor Or Advocate And Relationship Specialty Start Date End Date Radha Shah FNP [address] [place] [address] PCP - General Family Medicine 04/21/23 04/25/24 Yecenia Frias FNP [address] [place] [address] PCP - General Family Medicine 04/26/24 Colby Hirsch FNP [address] [place] [address] Nurse Practitioner Family Medicine 07/13/23 Candice Ugarte Bakery ClerkTransportation Associate 12/27/23 documented as of this encounter
--- OUTSIDE RECORDS SUMMARY | 2025-05-28 17:33 | XMS_ITS | Encounter Summary ---
Author Organization [employer] Address [address] [facility] 7t [place] [address] Care Team Providers Care Director Software Development Name Role Phone Marc Nicolas Primary Care Provider Unavail able Radha Shah CASH POSTING SPECIALIST Primary Care Provider +6 Colby Hirsch Unavailable Unavailable [facility] CASH POSTING SPECIALIST Primary Care Provider [phone] Reason for Visit * Reason Comments Med Refill Encounter Details Date Type Department Care Team ([facility] Contact Info) Description 03/17/2023 Refill [facility] [address] [place] [address] Marc Nicolas AGNP Mixed anxiety and depressive [...] Upcoming Encounters Date Type Department Care Team ([facility] Contact Info) Description 07/04/2025 2:00 PM EST Office Visit [facility] [address] [place] [address] HartfordYecenia whipple FNP [address] [place] [address] 08/01/2025 2:00 PM EST Clinical Support [facility] [address] [place] [address] Kira Bansal, RN documented as of this encounter Visit Diagnoses Diagnosis Mixed anxiety and depressive disorder Dysthymic disorder documented in this encounter Additional Health Concerns Assessment Noted Time PHQ-9 Depression Total Score: 13 023 3:27 PM EDT documented as of this encounter Care Teams Director Software Development Relationship Specialty Start Date End Date Marc Nicolas AGNP PCP - General Family Medicine 10/22/22 04/20/23 Radha Shah FNP [address] [place] [address] PCP - General Family Medicine 04/21/23 04/25/24 HartfordYecenia FNP [address] [place] [address] PCP - General Family Medicine 04/26/24 Colby Hirsch FNP [address] [place] [address] Nurse Practitioner Family Medicine 07/13/23 Candice Ugarte Supervisor Plate PastingMobility Engineer 12/27/23 documented as of this encounter
--- OUTSIDE RECORDS SUMMARY | 2025-05-28 17:33 | XMS_ITS | Encounter Summary ---
Author Organization [employer] Address 75 [facility] 7t [place] [address] Care Team Providers Care Safety Investigator/Cause Analyst Name Role Phone Radha Shah INSTALLATION SPECIALIST Primary Care Provider +9 Colby Hirsch Unavailable Unavailable [facility] Primary Care Provider [phone] Reason for Visit * Reason Comments Med Refill Encounter Details Date Type Department Care Team (Late st Contact Info) Description 04/12/[address] [facility] [address] [place] [address] Radha Shah FNP [address] [place] [address] Multiple joint pain Social History Tobacco Use [...] sit still 2 04/13/2024 1:28 PM EDT Kiar Bansal RN Becoming easily annoyed or irritable [...] 07/04/2025 2:00 PM EST Office Visit [facility] [address] [place] [address] Yecenia Frias FNP [address] [facility] [place] [address] 08/01/2025 2:00 PM EST Clinical Support [facility] Ld [facility] [place] [address] Kira Bansal RN documented as of this encounter Visit Diagnoses Diagnosis Multiple joint pain Pain in joint, multiple sites documented in this encounter Additional Health Concerns Assessment Noted Time PHQ-9 Depression Total Score: 7 03/07/20 24 10:13 AM EDT documented as of this encounter Care Teams Safety Investigator/Cause Analyst Relationship Specialty Start Date End Date Radha Shah FNP Ld [facility] [place] [address] PCP - General Family Medicine 04/21/23 04/25/24 Yecenia [place] [address] PCP - General Family Medicine 04/26/24 [place] [address] Nurse Practitioner Family Medicine 07/13/23 Candice Ugarte Cook Fish EggsFraming Mechanic 12/27/23 documented as of this encounter
--- OUTSIDE RECORDS SUMMARY | 2025-05-28 17:33 | XMS_ITS | Encounter Summary ---
Author Organization [employer] Address 75 [facility] 7t [place] [address] Care Team Providers Care Desk Pens Assembler Name Role Phone Radha Shah FRY COOK Primary Care Provider +1 Colby Hirsch Unavailable Unavailable [facility] Primary Care Provider [phone] Reason for Visit * Reason Comments Med Refill Encounter Details Date Type Department Care Team (Late st Contact Info) Description 06/30/2023 Refill [facility] [address] [place] [address] Radha Shah FNP [address] [place] [address] Multiple joint pain Social History Tobacco Use [...] 07/04/2025 2:00 PM EST Office Visit [address] [address] Yecenia Frias FNP [address] [place] [address] 08/01/2025 2:00 PM EST Clinical Support [address] [address] Kira Bansal, MEREDITH documented as of this encounter Visit Diagnoses Diagnosis Multiple joint pain Pain in joint, multiple sites documented in this encounter Additional Health Concerns Assessment Noted Time PHQ-9 Depression Total Score: 6 06/15/20 23 10:23 AM EDT documented as of this encounter Care Teams Desk Pens Assembler Relationship Specialty Start Date End Date Radha Shah FNP [address] [place] [address] PCP - General Family Medicine 04/21/23 04/25/24 Yecenia Frias FNP [address] [place] [address] PCP - General Family Medicine 04/26/24 Colby Hirsch FNP [address] [place] [address] Nurse Practitioner Family Medicine 07/13/23 Candice Ugarte University RegistrarStock Layer 12/27/23 documented as of this encounter
--- OUTSIDE RECORDS SUMMARY | 2025-05-28 17:33 | XMS_ITS | Encounter Summary ---
Author Organization [employer] Address 75 [facility] 7t [place] [address] Care Team Providers Care Insurance Business Analyst Name Role Phone Marc Nicolas Primary Care Provider Unavail able Radha Shah Primary Care Provider +6 Colby Hirsch Unavailable Unavailable [facility] INSPECTOR INSULATION Primary Care Provider [phone] Reason for Visit * Reason Comments Med Refill Encounter Details Date Type Department Care Team (Late st Contact Info) Description 03/10/2023 Refill [facility] [address] [place] [address] Marc Nicolas AGNP Mixed anxiety and depressive [...] Will send to PCP on 03/18/23. Has NEON GLASS BLOWER scheduled 03/17/23. * Telephone Encounter - Chika Low - 03/15/2023 9:14 AM EDT Tc from patient requesting a med refill for medication tramadol [address] Nicolas documented in this encounter Plan of Treatment Upcoming Encounters Date Type Department Care Team (Late st Contact Info) Description 07/04/2025 2:00 PM EST Office Visit [address] [address] Yecenia Frias [address] [address] 08/01/2025 2:00 PM EST Clinical Support [address] [address] Kira Bansal RN documented as of this encounter Visit Diagnoses Diagnosis Mixed anxiety and depressive disorder Dysthymic disorder Multiple joint pain Pain in joint, multiple sites documented in this encounter Additional Health Concerns Assessment Noted Time PHQ-9 Depression Total Score: 13 023 3:27 PM EDT documented as of this encounter Care Teams Insurance Business Analyst Relationship Specialty Start Date End Date Marc Nicolas AGNP PCP - General Family Medicine 10/22/22 04/20/23 Radha Shah FNP [address] [place] [address] PCP - General Family Medicine 04/21/23 04/25/24 Yecenia Frias FNP [address] [place] [address] PCP - General Family Medicine 04/26/24 Colby Hirsch FNP [address] [place] [address] Nurse Practitioner Family Medicine 07/13/23 Candice Ugarte Interrelated Special Education TeacherBoard Runner 12/27/23 documented as of this encounter
[2025-07-02 12:01] VITALS: BMI 37.3
[2025-07-18 11:40] VITALS: BP 123/79; PULSE 80; RESP 20; TEMP 36.9; O2SAT 97; BMI 38.1
[2025-07-18 11:53] LABS: Glucose, Whole Blood 96 mg/dL (60-115)
[2025-07-18] MEDS: Lactated Ringers 1,000 ML 50 ML IVCONT (12:13)
--- NOTE | 2025-07-18 12:19 | HO.ANESPROP2 ---
Documented by User: Maribel Freeman NP 07/10/25 14:05 HPI - Anesthesia Eval Consult details Narrative: 44yo F for Left Breast Mass Excision (9 o'clock), 07/18/25 s/p Left Excision Mass upper arm, 03/07/25, TIVA Follows [facility] Cardiology for CMP (EF 50-55% in 2023) - stable at yearly routine office visit 03/2024 - No 2024 ECHO or F/U visit Anesthesia Pre-Procedure Meds Is the patient on any of the following meds?: GLP1/DPP4 PMFSH Active Problems Active Problems: All Active Problems Left breast mass (Acute) Cellulitis of left upper extremity (Acute) Severe obesity (BMI 35.0-39.9) with comorbidity (Acute) Mass of soft tissue of upper arm (Acute) Blister of abdominal wall with infection (Acute) Postop check (Acute) Chronic abdominal pain (Acute) Controlled type 2 diabetes mellitus (Acute) Bilateral kidney stones (Acute) Palpitations (Acute) Incisional hernia of anterior abdominal wall at trocar puncture site after laparoscopic procedure (Acute) Varicose veins of left lower extremity with inflammation (Acute) Cardiomyopathy (Acute) Varicose veins of right lower extremity with inflammation (Acute) Nephrolithiasis (Acute) Nevus of face (Acute) Dermatofibroma (Acute) Impingement syndrome of right shoulder (Acute) Skin lesion (Acute) GERD (gastroesophageal reflux disease) (Acute) Asthma (Acute) Transaminitis (Acute) Vitamin D deficiency (Acute) HLD (hyperlipidemia) (Acute) HTN (hypertension) (Acute) Past Medical History Medical History Cardiomyopathy T2DM (type 2 diabetes mellitus) Hypertrophic scar of upper arm Epidermal inclusion cyst Nephrolithiasis Transaminitis GERD (gastroesophageal reflux disease) Anxiety Migraines Fatty liver Elevated cholesterol Asthma Vitamin D deficiency HLD (hyperlipidemia) HTN (hypertension) Diabetes mellitus Family History Family History Father Heart disease Mother No problems noted. Family history of problems with anesthesia: No Surgical History Surgical History History of surgical removal of skin lesion (08/27/22) H/O lithotripsy History of local excision of skin lesion History of hysterectomy (~2011) History of Problems with Anesthesia: No Social History Social History Are you a primary manager career to a significant other at home: No Do you presently have visiting nurse or other home services: No Alcohol intake: never Comment: correct count Patient Tobacco Use Status: Never used Tobacco Second Hand Smoke Exposure: No Have you been hit, kicked, punched, or otherwise hurt by someone within the past year? If so, by whom?: No Are you DNR?: No Advance Directives: No Advance Directives Information Provided: Yes Meds Allergies Allergy/AdvReac Type Severity Reaction Status Date / Time pineapple Allergy Severe tongue Verified 05/21/25 13:51 swelling diphenhydramine (From Allergy Intermediate HALLUCINATI Verified 05/21/25 13:51 BENADRYL) ONS morphine (MORPHINE) Allergy Intermediate DIAPHORESIS; Verified 05/21/25 13:51 TACHYCARDIA, palpitations, sweating, tingling of hands and face quetiapine (From SEROQUEL) Allergy Intermediate PALPITATION Verified 05/21/25 13:51 S seafood Allergy Intermediate redness/itc Verified 05/21/25 13:51 akhil tomato Allergy Intermediate Blister Verified 05/21/25 13:51 trazodone (TRAZODONE) Allergy Intermediate GI Upset, Verified 05/21/25 13:51 HEART RACING, palpitations prednisone (PREDNISONE) AdvReac Intermediate HEART RACES Verified 05/21/25 13:51 Home Medications ?Medication ?Instructions ?Recorded ?Confirmed ?Last Taken ?Type albuterol sulfate 90 mcg/actuation 2 puff inhalation Q4-6H PRN 10/01/20 07/02/25 07/18/25 History aerosol inhaler Shortness Of Breath albuterol sulfate 2.5 mg/3 mL 2.5 mg inhalation TID PRN wheezing 04/15/21 07/02/25 07/18/25 History (0.083 %) solution for nebulization buspirone 10 mg tablet 10 mg PO TID 04/15/21 07/02/25 07/17/25 History docusate sodium 100 mg capsule 100 mg PO BID PRN Constipation 04/15/21 07/02/25 07/17/25 History pantoprazole 40 mg tablet,delayed 40 mg PO DAILY 04/15/21 07/02/25 07/18/25 History release sennosides 8.6 mg tablet (Senna 17.2 mg PO DAILY PRN constipation 04/15/21 07/02/25 07/17/25 History Laxative) escitalopram oxalate 20 mg tablet 20 mg PO DAILY 12/16/21 07/02/25 07/17/25 History clonazepam 0.5 mg tablet 0.5 mg PO DAILY PRN anxiety 02/03/22 07/02/25 07/18/25 History budesonide-formoterol HFA 80 2 puff inhalation Q4-6H PRN 02/21/25 07/02/25 07/18/25 History mcg-4.5 mcg/actuation aerosol wheezing inhaler (Symbicort) Exam Pertinent Lab Results Pertinent Lab Results: Laboratory Tests 03/13/25 06/20/25 13:20 11:55 WBC 8.8 Hgb 12.2 Hct 36.5 L Plt Count 254 Sodium 144 Potassium 3.7 Chloride 112 H Carbon Dioxide 24 BUN 14 Creatinine 0.67 Narrative Narrative: EKG 02/2025 Vent. Rate : 82 BPM Atrial Rate : 82 BPM P-R Int : 144 ms QRS Dur : 74 ms QT Int : 374 ms P-R-T Axes : 31 18 15 degrees QTcB Int : 436 ms Normal sinus rhythm Normal ECG When compared with ECG of 25-Dec-2024 14:26, No significant change was found ECHO 2023 Conclusions: - 1. Low normal LV ejection fraction 50-55% 2. Normal cardiac valvular Doppler 3. No gross pericardial effusion Assessment and Plan Assessment Anesthesia Assessment: Chart Reviewed Final Anesthetic Review Family History of Problems with Anesthesia: No History of Problems with Anesthesia: No Documented by User: Stephanie Puckett DO 07/18/25 13:19 HPI - Anesthesia Eval Anesthesia Pre-Procedure Meds Is the patient on any of the following meds?: GLP1/DPP4 PMFSH Past Medical History Medical History Cardiomyopathy T2DM (type 2 diabetes mellitus) Hypertrophic scar of upper arm Epidermal inclusion cyst Nephrolithiasis Transaminitis GERD (gastroesophageal reflux disease) Anxiety Migraines Fatty liver Elevated cholesterol Asthma Vitamin D deficiency HLD (hyperlipidemia) HTN (hypertension) Diabetes mellitus Family History Family History Father Heart disease Mother No problems noted. Family history of problems with anesthesia: No Surgical History Surgical History History of surgical removal of skin lesion (08/27/22) H/O lithotripsy History of local excision of skin lesion History of hysterectomy (~2011) History of Problems with Anesthesia: No Social History Social History Are you a primary manager career to a significant other at home: No Do you presently have visiting nurse or other home services: No Alcohol intake: never Comment: correct count Patient Tobacco Use Status: Never used Tobacco Second Hand Smoke Exposure: No Have you been hit, kicked, punched, or otherwise hurt by someone within the past year? If so, by whom?: No Are you DNR?: No Advance Directives: No Advance Directives Information Provided: Yes Meds Allergies Allergy/AdvReac Type Severity Reaction Status Date / Time pineapple Allergy Severe tongue Verified 05/21/25 13:51 swelling diphenhydramine (From Allergy Intermediate HALLUCINATI Verified 05/21/25 13:51 BENADRYL) ONS morphine (MORPHINE) Allergy Intermediate DIAPHORESIS; Verified 05/21/25 13:51 TACHYCARDIA, palpitations, sweating, tingling of hands and face quetiapine (From SEROQUEL) Allergy Intermediate PALPITATION Verified 05/21/25 13:51 S seafood Allergy Intermediate redness/itc Verified 05/21/25 13:51 akhil tomato Allergy Intermediate Blister Verified 05/21/25 13:51 trazodone (TRAZODONE) Allergy Intermediate GI Upset, Verified 05/21/25 13:51 HEART RACING, palpitations prednisone (PREDNISONE) AdvReac Intermediate HEART RACES Verified 05/21/25 13:51 Home Medications ?Medication ?Instructions ?Recorded ?Confirmed ?Last Taken ?Type albuterol sulfate 90 mcg/actuation 2 puff inhalation Q4-6H PRN 10/01/20 07/02/25 07/18/25 History aerosol inhaler Shortness Of Breath albuterol sulfate 2.5 mg/3 mL 2.5 mg inhalation TID PRN wheezing 04/15/21 07/02/25 07/18/25 History (0.083 %) solution for nebulization buspirone 10 mg tablet 10 mg PO TID 04/15/21 07/02/25 07/17/25 History docusate sodium 100 mg capsule 100 mg PO BID PRN Constipation 04/15/21 07/02/25 07/17/25 History pantoprazole 40 mg tablet,delayed 40 mg PO DAILY 04/15/21 07/02/25 07/18/25 History release sennosides 8.6 mg tablet (Senna 17.2 mg PO DAILY PRN constipation 04/15/21 07/02/25 07/17/25 History Laxative) escitalopram oxalate 20 mg tablet 20 mg PO DAILY 12/16/21 07/02/25 07/17/25 History clonazepam 0.5 mg tablet 0.5 mg PO DAILY PRN anxiety 02/03/22 07/02/25 07/18/25 History budesonide-formoterol HFA 80 2 puff inhalation Q4-6H PRN 02/21/25 07/02/25 07/18/25 History mcg-4.5 mcg/actuation aerosol wheezing inhaler (Symbicort) Exam Exam Date and Time: 07/18/25 1219 Height,Weight and Vital Signs: Height 5 ft Weight 88.6 kg Vital Signs Temperature 98.5 F 07/18/25 11:40 Pulse Rate 80 07/18/25 11:40 Respiratory Rate 20 07/18/25 11:40 Blood Pressure 123/79 07/18/25 11:40 Pulse Oximetry 97 07/18/25 11:40 Oxygen Delivery Method Room Air 07/18/25 11:40 Temperature 98.5 F 07/18/25 11:40 Pulse Rate 80 07/18/25 11:40 Respiratory Rate 20 07/18/25 11:40 Blood Pressure 123/79 07/18/25 11:40 Pulse Oximetry 97 07/18/25 11:40 Oxygen Delivery Method Room Air 07/18/25 11:40 Airway Mallampati Class: II TM Dist: >3cm Neck ROM: Full Loose/Missing/Broken Teeth: Yes (edentulous) Heart: S1S2 Lungs: CTAB Assessment and Plan Assessment Anesthesia Assessment: Anesthesia Plan Discussed and Chart Reviewed Final Anesthetic Review Family History of Problems with Anesthesia: No History of Problems with Anesthesia: No NPO: Yes ASA Class: III Final Preanesthetic Review: No Changes in Pt Med Stat, Meds/Allgs Chart Reviewed, Consent Obtained/Reviewed and Anes Risks/Benef Reviewed Patient Risk: Low Procedure Risk: Low Anesthetic Plan Anesthetic Plan: GA and Agree w/ Assess. and Plan Disposition: Standard PACU
--- NOTE | 2025-07-18 12:44 | MHC.SHP ---
Pre-Procedural Eval Section A - 24 Hr Update-Section A only Date of Service: 07/18/25 The patient is an INPATIENT: No Changes since office visit: Yes Patient answered all questions; No Cold of Flu in the past 2 weeks, No New Medical Problems and No Changes in Medication The patient has been examined within 24 hours of the surgical procedure. The History & Physical has been completed within 30 days and I have reviewed it.: No Section B - Complete if H&P > 30 days Chief Complaint: Unspecified lump in the left breast, lower outer Details of Present Illness: no change in symptoms Relevant Family History (Specify if Yes): No Relevant Social History: None Present Medications: see Short Stay Collaborative assessment Medical History: No relevant PMH History of Previous Operations: No relevant previous surgery Allergies: Allergies Allergy/AdvReac Type Severity Reaction Status Date / Time pineapple Allergy Severe tongue Verified 05/21/25 13:51 swelling diphenhydramine (From Allergy Intermediate HALLUCINATI Verified 05/21/25 13:51 BENADRYL) ONS morphine (MORPHINE) Allergy Intermediate DIAPHORESIS; Verified 05/21/25 13:51 TACHYCARDIA, palpitations, sweating, tingling of hands and face quetiapine (From SEROQUEL) Allergy Intermediate PALPITATION Verified 05/21/25 13:51 S seafood Allergy Intermediate redness/itc Verified 05/21/25 13:51 akhil tomato Allergy Intermediate Blister Verified 05/21/25 13:51 trazodone (TRAZODONE) Allergy Intermediate GI Upset, Verified 05/21/25 13:51 HEART RACING, palpitations prednisone (PREDNISONE) AdvReac Intermediate HEART RACES Verified 05/21/25 13:51 Review of Systems Sugical H&P ROS: Negative: Constitution, Cardiovascular, Respiratory, Neurological, Psychiatric, Hem-Onc, Allergic/Immunologic, Gastrointestinal, Genitourinary, Musculoskeletal, Integumentary, Endocrine and Eyes/Ears/Nose/Throat Exam Surgical H&P Exam: Normal: HEENT, Normal: Heart, Normal: Lungs, Normal: Extremities, Normal: Abdomen, Normal: Skin and Normal: Neurological Plan Diagnosis/Plan: Unchanged I have reviewed the history and physical and performed a pertinent physical examination on my patient. No changes have occurred unless specified. Time Spent With Patient Time: Total time managing care of this patient today ____ minutes.
--- NOTE | 2025-07-18 13:30 | W.PM.OPN ---
Operative Note Operative Note Date of Service: 07/18/25 Narrative: Preoperative diagnosis: Left breast skin thickening Postoperative diagnosis: Same Procedure: Excision left breast skin lesion Surgeon: Lionel Cintron MD Manager Internship: Barry Martines PA-C Anesthesia: General LMA Indications for procedure: 44-year-old female patient with a previous excision of a left breast mass performed by Dr. Campos early in the year now with a thickened scar located in the left breast at the lower outer quadrant. Patient reports pain associated with this lesion in his requested excision. Operative findings: No underlying mass noted but thickened scar noted. Specimen: Left breast skin lesion Estimated blood loss: 5 mL Complications: None Procedure details: Patient was brought to the OR and placed in a supine position. After administering general anesthesia the patient's left breast was prepped with ChloraPrep and draped in a sterile fashion. A surgical time-out was called the consent confirmed. Patient received preoperative antibiotics and Venodyne boots were in place. Local anesthesia was infiltrated circumferentially along the skin lesion. Elliptical incision was then created oriented transversely. This was carried out through subcutaneous tissue and around the skin lesion. This was passed off the table and sent to pathology for further examination. Hemostasis was assured using electrocautery. Wounds were irrigated with saline solution and suctioned dry. Dermis was then reapproximated using interrupted 3-0 Polysorb sutures. Skin was closed using a running subcuticular 4-0 Polysorb suture. Steri-Strips, 4 x 4 gauze and Tegaderm were then applied. The patient tolerated the procedure well. Sponge, instrument, and needle counts were reported as correct. The patient was transferred to PACU in stable condition.
[2025-07-18 13:36] VITALS: BP 131/79; PULSE 105; RESP 16; TEMP 36.4; O2SAT 95
[2025-07-18 13:40] VITALS: BP 117/68; PULSE 97; RESP 20; O2SAT 95
[2025-07-18 13:45] VITALS: BP 116/64; PULSE 83; RESP 12; O2SAT 98
[2025-07-18 13:50] VITALS: BP 115/61; PULSE 75; RESP 12; O2SAT 98
[2025-07-18 14:03] VITALS: BP 131/71; PULSE 78; RESP 14; TEMP 36.1; O2SAT 98
== END 2025-07-18 14:25 | disposition home or self-care (01) ==
PROVIDERS: PCP Family Medicine; Visit Provider Surgery
PROC: (CPT 19120; principal; 2025-07-18 13:30)
DX: N63.23 Unspecified lump in the left breast, lower outer quadrant (principal); N60.82 Other benign mammary dysplasias of left breast; L90.5 Scar conditions and fibrosis of skin; I42.9 Cardiomyopathy, unspecified; E11.9 Type 2 diabetes mellitus without complications; Z79.84 Long term (current) use of oral hypoglycemic drugs; Z79.85 Long-term (current) use of injectable non-insulin antidiabetic drugs; Z79.1 Long term (current) use of non-steroidal anti-inflammatories (NSAID); Z79.899 Other long term (current) drug therapy; Z88.5 Allergy status to narcotic agent; Z88.8 Allergy status to other drugs, medicaments and biological substances; Z90.710 Acquired absence of both cervix and uterus; Z87.442 Personal history of urinary calculi
CPT/HCPCS: 19120; 82947; 88304; 88305; J0690; J1100; J2003; J2405; J2704; J3010

== ENCOUNTER → 2025-07-18 11:12 | Outpatient (BNV) | payer MEDICAID, SELFPAY | PROVIDERS: PCP Family Medicine; Visit Provider Surgery | DX: N63.20 Unspecified lump in the left breast, unspecified quadrant (principal) | CPT/HCPCS: 11402 ==

== ENCOUNTER 2025-07-25 14:45 | Outpatient (REF) | payer MEDICAID, SELFPAY ==
--- OUTSIDE RECORDS SUMMARY | 2024-01-26 10:20 | XMS_ITS ---
Author Organization [facility] Address [address] [place] [phone] Care Team Providers Care Cylinder Devalver Name Role Phone Radha Rodriguez Primary Care Provider Jaylan Clancy [phone] REASON FOR VISIT Patient presents today for FATTY LIVER Encounters Encounter Location Date Provider Diagnosis [facility] [address] [place] [phone] 01/26/2024 Jaylan Neal Plan Of Treatment No Information Progress Notes * MADHUABASDOB: 0 (44 yo F)Acc No.[id number]:01/26/2024 Progress Notes Patient: HARMAN MCKEON Provider: Geovani Neal MD :1980 A ge:43 Y S ex:Female Date:01/26/2024 Address:[address] [place], [place] [id number] Pcp:JACINTO Ramos Subjective: * Chief Complaints: * P atient presents today for FATTY LIVER Billing Information: * Procedure Codes: * The named appointment provid er may or may not be the originator of this progress note, and it is not deemed complete until electronically signed by the appointment provider. Sign off status: Pending * Provider: Geovani Neal MD Date: 0 01/26/2024 Generated for Ashlee perez/Lisa/eTrobertitting on: 09/25/2024 05:39 PM EST
--- OUTSIDE RECORDS SUMMARY | 2024-06-20 08:20 | XMS_ITS ---
Author Organization [facility] Address [address] [place] [address] Care Team Providers Care Programs Director Name Role Phone Radha Rodriguez Primary Care Provider Jaylan Clancy [phone] REASON FOR VISIT FATTY LIVER Encounters Encounter Location Date Provider Diagnosis [facility] [address] [place] [address] 06/20/2024 Jaylan Neal Plan Of Treatment No Information Progress Notes * MADHU ABASDOB: 0 (44 yo F)Acc No.[id number]:06/20/2024 Progress Notes Patient: HARMAN MCKEON Provider: Geovani Neal MD :1980 A ge:43 Y S ex:Female Date:06/20/2024 Address:[address] [place], [place] [id number] Pcp:JACINTO Ramos Subjective: * Chief Complaints: * F ATTY LIVER Billing Information: * Procedure Codes: * The named appointment provid er may or may not be the originator of this progress note, and it is not deemed complete until electronically signed by the appointment provider. Sign off status: Pending * Provider: Geovani Neal MD Date: Generated for Ashlee perez/Lisa/eTodiliasmitting on: 09/25/2024 02:21 PM EST
--- OUTSIDE RECORDS SUMMARY | 2025-07-25 14:00 | XMS_ITS | Encounter Summary ---
Author Organization [employer] Address [address] [place] [address] 7t [place] [address] Care Team Providers Care Public Employment Mediator Name Role Phone Colby Hirsch UNIT AIDE Unavailable Unavailable Yecenia Frias Primary Care Provider [phone] Reason for Referral * Consultation (Routine) - Pending Review Specialty Diagnoses / Procedures Referred By Aminta anderson Referred To Contact Gastroenterology Diagnoses Encounter for screening for malignant neoplasm of colon Yecenia Frias FNP [address] [place] [address] Phone: tel: fax: Referral ID Status Reason Start Date Expiration Date Visits Requested Visits Authorized [id number] Pending Review Specialty Services Required 07/25/2025 07/25/2026 1 1 Reason for Visit * Reason Comments Follow-up Encounter Details Date Type Department Care Team ([facility] st Contact Info) Description 07/25/2025 2:00 PM EST Office Visit [facility] [address] [place] [address] Yecenia Frias FNP [address] [place] [address] Encounter for screening for malignant neoplasm of colon (Primary Dx); Paresthesia of both feet; Chronic left shoulder pain; Right upper quadrant pain; Chronic idiopathic constipation Social History Tobacco Use Types Packs/Day Years Used Date Smoking Tobacco: Never Passive Smoke Exposure: Never Smokeless Tobacco: Never Tobacco Cessation:Counseling Given: Not Answered Alcohol Use Standard Drinks/Week Comments Never 0 (1 standard drink = 0.6 oz pur e alcohol) Depression Answer Date Recorded Patient Health Questionnaire-9 Score 0 07/25/2025 Patient Health Questionnaire-9 Score 0 07/25/2025 Last PHQ-9: Questionnaire Data Not on file 1 09/25/2024 Housing Stability Answer Date Recorded What is [...] Date Recorded Patient Health Questionnaire-2 Score 0 07/25/2025 Internet Access Answer Date Recorded Internet Access Q1 Yes 07/13/2025 Internet Access Q2 Not on file 07/13/2025 Comments No Sex and Gender Information Value Date Recorded Sex Assigned at Female 06/22/2022 10:14 AM EDT Legal Sex Female 10:14 AM EDT Gender Identity Female 06/22/2022 10:14 AM EDT Sexual Orientation Choose not to disclose 2021 10:14 AM EDT documented as of this encounter Last Filed Vital Signs Vital Sign Reading Time Taken Comments Blood Pressure 110/88 07/25/2025 2:00 PM EST Pulse 84 07/25/2025 2:00 PM EST Temperature 36.8 C (98.3 F) 07/25/2025 2:00 PM EST Respiratory Rate 20 07/25/2025 2:00 PM EST Oxygen Saturation - - Inhaled Oxygen Concentration - - Weight 89.2 kg (196 lb 9.6 oz) 07/25/2025 2:00 P M EST Height 152.4 cm (5') 07/25/2025 2:00 PM EST Body Mass Index 38.4 07/25/2025 2:00 PM EST documented in this encounter Functional Status * Over the past 2 weeks, how often have you been bothered by any of the following problems? Question Answer Date of Assessment Author Patient Health Questionnaire-2 Score 0 07/25/2025 2:07 PM Fabi Hernandez MA * Little interest or pleasure in doing things Answer Date of Assessment Author Not at all 07/25/2025 2:07 PM Fabi Coburn MA * Feeling down, depressed, or hopeless Answer Date of Assessment Author Not at all 07/25/2025 2:07 PM Fabi Coburn MA * Trouble falling or staying asleep, or sleeping too much Answer Date of Assessment Author Not at all 07/25/2025 2:07 PM Fabi Coburn MA * Feeling tired or having little energy Answer Date of Assessment Author Not at all 07/25/2025 2:07 PM Fabi Coburn MA * Poor appetite or overeating Answer Date of Assessment Author Not at all 07/25/2025 2:07 PM Fabi Coburn MA * Feeling bad about yourself - or that you are a failure or have let yourself or your family down Answer Date of Assessment Author Not at all 07/25/2025 2:07 PM Fabi Coburn MA * Trouble concentrating on things, such as reading the newspaper or watching television Answer Date of Assessment Author Not at all 07/25/2025 2:07 PM Fabi Coburn MA * Moving or speaking so slowly that other people could have noticed? Or the opposite - being so fidgety or restless that you have been moving around a lot more than usual. Answer Date of Assessment Author Not at all 07/25/2025 2:07 PM Fabi Coburn MA * Thoughts that you would be better off or hurting yourself in some way Answer Date of Assessment Author Not at all 07/25/2025 2:07 PM Fabi Coburn MA * Patient Health Questionnaire-9 Score Answer Date of Assessment Author 0 07/25/2025 2:07 PM EST Fabi Logan MA * Over the last 2 weeks, how often have you been bothered by any of the following problems? Question Answer Date of Assessment Author Feeling nervous, anxious, or on edge 0 07/25/2025 2:07 PM EST Fabi Beatty MA Not being able to stop or control worrying 0 07/25/2025 2:07 PM EST Fabi Beatty MA Worrying too much about different things 0 07/25/2025 2:07 PM EST Fabi Beatty MA Trouble relaxing 0 07/25/2025 2:07 PM EST Fabi Nails MA Being so restless that it is hard to sit still 0 07/25/2025 2:07 PM EST Fabi Beatty MA Becoming easily annoyed or irritable 0 07/25/2025 2:07 PM EST Fabi Beatty MA Feeling afraid as if something awful might happen 0 07/25/2025 2:07 PM EST Fabi Hansen MA TAVON-7 Total Score 0 07/25/2025 2:07 PM EST Fabi Beatty MA documented as of this encounter Plan of Treatment Upcoming Encounters Date Type Department Care Team (Late st Contact Info) Description 08/01/2025 2:00 PM EST Clinical Support [facility] [address] [place] [address] Kira Bansal RN 10/04/2025 2:00 PM EST Office Visit [facility] OPTOM[facility] [address] [place] [address] Akila Elizabeth OD [address] [place] [address] Scheduled Referrals Name Type Priority Associated Diagnoses Order Schedule Referral to Gastroenterology Outpatient Referral Routine Encounter for screening for malignant neoplasm of colon Expected: 07/25/2025 (Approximate), Expires: 07/25/2026 documented as of this encounter Goals Goal Patient Goal Type Associated Problems Recent Progress Patient-Stated? Author Help patients manage their type 2 diabetes Care Plan Help patients manage their type 2 diabetes No Katherine Patel FNP Patient has chronic kidney disease Care Plan Patient has chronic kidney disease No Katherine Patel FNP Patient has chronic kidney disease Care Plan Patient has chronic kidney disease No Nichol Hou RN Patient has chronic kidney disease Care Plan Patient has chronic kidney disease No Yecenia Frias FNP Patient has chronic kidney disease Care Plan Patient has chronic kidney disease No [place] Patient has chronic kidney disease Care Plan Patient has chronic kidney disease No Kira Bansal RN Patient has chronic kidney disease Care Plan Patient has chronic kidney disease No Yecenia Frias FNP documented as of this encounter Procedures Procedure Name Priority Date/Time Associated Diagnosis Comments VITAMIN B12/FOLATE, SERUM PANEL Routine 07/25/2025 2:50 PM EST Paresthesia of both feet CBC WITH AUTO DIFFERENTIAL Routine 07/25/2025 2:50 PM EST Paresthesia of both feet IRON AND TOTAL IRON BINDING CAPACITY Routine 07/25/2025 2:50 PM EST Paresthesia of both feet FERRITIN Routine 07/25/2025 2:50 PM EST Paresthesia of both feet HEPATIC FUNCTION PANEL Routine 07/25/2025 2:50 PM EST Right upper quadrant pain documented in this encounter Results * (ABNORMAL) Hepatic Function Panel (07/25/2025 2:50 PM EST) Bilirubin, Total 0.4 0.0 - 1.0 mg/dL [facility] Bilirubin, Direct 0.2 0.0 - 0.5 mg/dL [facility] Aspartate Amino Transferase 26 5 - 31 U/L [facility] Alanine Aminotransferase 16 0 - 31 U/L [facility] Total Protein 7.2 6.5 - 8.0 g/dL [facility] Albumin Level 4.3 3.5 - 5.0 g/dL [facility] Alkaline Phosphatase 134(H) 39 - 117 U/L [facility] Blood Venous blood specimen / Unknown 07/25/2025 2:50 PM EST 07/25/2025 4:02 PM EST [facility] LAB BLOOD ORDERABLES Final Re sult Performing Organization Address [facility]/ZIP Co de Phone Number [facility] [address] [place] [phone] * Vitamin B12/Folate, Serum Panel (07/25/2025 2:50 PM EST) Vitamin B12 325 200 - 900 pg/mL [facility] Comment:NORMAL 200-900 PG/ML INDETERMINATE 160-199 PG/ML DEFICIENT < 160 PG/ML Folate 11.4 > or = 4.0 ng/mL [facility] Comment:Reference Values:> o r = 4.0 ng/mL< 4.0 ng/mL suggests folate deficiency Methotrexate, aminopterin and folinic acid(leucovorin) are chemotherapeutic agents whose molecularstructures are similar to folate; therefore, the Architectfolate assay cannot be used for patients using these drugs. Blood Venous blood specimen / Unknown 07/25/2025 2:50 PM EST 07/25/2025 4:02 PM EST [facility] LAB BLOOD ORDERABLES Final Re sult Performing Organization Address [facility] Co de Phone Number [facility] [address] [place] [phone] * Iron And Total Iron Binding Capacity (07/25/2025 2:50 PM EST) Iron 53 30 - 160 mcg/dL [facility] Total Iron Binding Capacity 317 228 - 428 mcg/dL [facility] Percent Iron Saturation 17 15 - 50 % [facility] Unsaturated Iron Binding 264 ug/dL [facility] Blood Venous blood specimen / Unknown 07/25/2025 2:50 PM EST 07/25/2025 4:02 PM EST [facility] LAB BLOOD ORDERABLES Final Re sult Performing Organization Address City/[facility]/ZIP Co de Phone Number [facility] [address] [place] [address] [phone] * Ferritin (07/25/2025 2:50 PM EST) [facility] Ferritin 15 10 - 250 ng/mL [facility] Blood Venous blood specimen / Unknown 07/25/2025 2:50 PM EST 07/25/2025 4:02 PM EST [facility] LAB BLOOD ORDERABLES Final Re sult Performing Organization Address [facility] de Phone Number [facility] [address] [place] [address] [phone] * (ABNORMAL) CBC auto differential (07/25/2025 2:50 PM EST) [facility] White Blood Count 7.9 4.8 - 10.8 X10*3/uL [facility] Red Blood Count 4.09(L) 4.20 - 5.50 X10*6/uL [facility] Hemoglobin 10.0(L) 12.0 - 16.0 g/dl [facility] Hematocrit 32.8(L) 37.0 - 47.0 % [facility] Mean Corpuscular Volume 80.2 80.0 - 98.0 fL [facility] Mean Corpuscular Hemoglobin 24.4(L) 27.0 - 33.0 pg [facility] Mean Corpuscular HGB Conc 30.5(L) 31.0 - 35.0 g/dl [facility] Red Cell Distribution Width 14.0 11.0 - 16.0 % [facility] Platelet Count 272 160 - 400 X10*3/uL [facility] Mean Platelet Volume 10.5 9.4 - 12.3 fL [facility] Neutrophils Percent Auto 57.8 45 - 73 % [facility] Imm Gran Pct Auto 0.3 0.0 - 0.4 % [facility] Lymphocytes Percent Auto 32.3 20 - 40 % [facility] Monocytes Percent Auto 6.9 2 - 11 % [facility] Eosinophils Percent Auto 2.4 0 - 4 % [facility] Basophils Percent Auto 0.3 0 - 2 % [facility] NRBC Pct Auto 0.0 0.0 - 0.2 /100WBC [facility] Neutrophils Absolute Auto 4.6 2.0 - 8.3 x10*3/uL [facility] Imm Gran Abs Auto 0.02 0.00 - 0.03 X10*3/uL [facility] Lymphocytes Absolute Auto 2.5 1.2 - 4.9 X10*3/uL [facility] Monocytes Absolute Auto 0.5 0.1 - 1.2 X10*3/uL [facility] Eosinophils Absolute Auto 0.2 0.0 - 0.4 X10*3/uL [facility] Basophils Absolute Auto 0.0 0.0 - 0.2 X10*3/uL [facility] NRBC Abs Auto 0.000 0.0 - 0.012 X10*3/uL [facility] Blood Venous blood specimen / Unknown 07/25/2025 2:50 PM EST 07/25/2025 4:02 PM EST [facility] UNIT AIDE LAB BLOOD ORDERABLES Final Re sult [facility] [address] [place] [address] [phone] documented in this encounter Visit Diagnoses Diagnosis Encounter for screening for malignant neoplasm of colon- Primary Paresthesia of both feet Chronic left shoulder pain Pain in joint, shoulder region Right upper quadrant pain Abdominal pain, right upper quadrant Chronic idiopathic constipation Unspecified constipation documented in this encounter Additional Health Concerns Active Problems Noted Date Diagnosed Date Help patients manage their type 2 diabetes 07/04 Patient has chronic kidney disease 07/04/2025 Patient has chronic kidney disease 07/04/2025 Patient has chronic kidney disease 07/06/2025 Patient has chronic kidney disease 07/09/2025 Patient has chronic kidney disease 07/24/2025 Patient has chronic kidney disease 07/24/2025 Assessment Noted Time PHQ-9 Depression Total Score: 0 07/25/20 25 2:07 PM EST documented as of this encounter Care Teams Public Employment Mediator Relationship Specialty Start Date End Date Yecenia Frias FNP [address] [place] [address] PCP - General Family Medicine 04/26/24 Colby Hirsch FNP Nurse Practitioner Family Medicine 07/13/23 Candice Ugarte [employer] InstructorSenior Ux Developer 12/27/23 documented as of this encounter
[2025-07-25 16:08] LABS: MANUAL DIFF FLAG NO
[2025-07-25 16:18] LABS: Hematocrit 32.8 % (37.0-47.0); Hemoglobin 10.0 g/dl (12.0-16.0); Imm Gran Abs Auto 0.02 X10*3/uL (0.00-0.03); Imm Gran Pct Auto 0.3 % (0.0-0.4); Lymphocytes Absolute Auto 2.5 X10*3/uL (1.2-4.9); Mean Corpuscular HGB Conc 30.5 g/dl (31.0-35.0); Mean Corpuscular Hemoglobin 24.4 pg (27.0-33.0); Mean Corpuscular Volume 80.2 fL (80.0-98.0); NRBC Abs Auto 0.000 X10*3/uL (0.0-0.012); NRBC Pct Auto 0.0 /100WBC (0.0-0.2); Platelet Count 272 X10*3/uL (160-400); Red Blood Count 4.09 X10*6/uL (4.20-5.50); White Blood Count 7.9 X10*3/uL (4.8-10.8)
[2025-07-25 16:48] LABS: Alanine Aminotransferase 16 U/L (0-31); Albumin Level 4.3 g/dL (3.5-5.0); Alkaline Phosphatase 134 U/L (39-117); Aspartate Amino Transferase 26 U/L (5-31); Iron 53 mcg/dL (30-160); Percent Iron Saturation 17 % (15-50); Total Iron Binding Capacity 317 mcg/dL (228-428); Total Protein 7.2 g/dL (6.5-8.0); Unsaturated Iron Binding 264 ug/dL
[2025-07-25 16:49] LABS: Ferritin 15 ng/mL (10-250)
[2025-07-25 17:03] LABS: Folate 11.4 ng/mL (> or = 4.0); Vitamin B12 325 pg/mL (200-900)
--- OUTSIDE RECORDS SUMMARY | 2025-07-25 17:38 | XMS_ITS | Encounter Summary ---
Author Organization [employer] Address [address] [facility] 7t [place] [address] Care Team Providers Care Accredited Legal Secretary Name Role Phone Colby Hirsch SLIDE FASTENERS INSPECTOR Unavailable Unavailable [facility] Primary Care Provider [phone] Reason for Visit * Reason Comments Med Refill Encounter Details Date Type Department Care Team ([facility] Contact Info) Description 01/02/2025 Refill [facility] MEDICINE [address] [place], [place] [phone] [facility] [address] [place] [address] Viral upper respiratory illness Social History Tobacco [...] Description 08/01/2025 2:00 PM EST Clinical Support [facility] [address] [place] [address] Kira Bansal RN 10/04/2025 2:00 PM EST Office Visit [facility]OMET[facility] [address] [place] [address] Glenn, Akila, OD [address] [place] [address] documented as of this encounter Visit Diagnoses Diagnosis Viral upper respiratory illness documented in this encounter Additional Health Concerns Assessment Noted Time PHQ-9 Depression Total Score: 0 10/24/19 25 1:15 PM EST documented as of this encounter Care Teams Accredited Legal Secretary Relationship Specialty Start Date End Date Yecenia Frias FNP [address] [place] [address] PCP - General Family Medicine 04/26/24 Colby Hirsch FNP Nurse Practitioner Family Medicine 07/13/23 Candice Ugarte Logistics Vice PresidentEducation And Training Manager 12/27/23 documented as of this encounter
--- OUTSIDE RECORDS SUMMARY | 2025-07-25 17:38 | XMS_ITS | Encounter Summary ---
Author Organization [employer] Address [address] [facility] 7t [place] [address] Care Team Providers Care Gas Scrubber Operator Name Role Phone Ruth Hoffmann TRANSFER AND PUMPHOUSE OPERATOR CHIEF Primary Care Provider Marc Nava Primary Care Provider Unavail able Radha Shah TRANSFER AND PUMPHOUSE OPERATOR CHIEF Primary Care Provider [phone] Colby HirschP Unavailable Unavailable [facility] TRANSFER AND PUMPHOUSE OPERATOR CHIEF Primary Care Provider [phone] Reason for Visit * Reason Onset Date Comments Appointment Request 10/01/2022 Encounter Details Date Type Department Care Team (Late st Contact Info) Description 10/01/2022 Telephone [facility] [address] [place], [place] [phone] Ruth Hoffmann FNP Appointment Request Social History [...] Description 08/01/2025 2:00 PM EST Clinical Support [facility] [address] [place] [address] Kira Bansal, MEREDITH 10/04/2025 2:00 PM EST Office Visit [facility] OPTOMET[facility] [address] [place] [address] Akila Elizabeth OD [address] [place] [address] documented as of this encounter Visit Diagnoses Not on filedocumented in this encounter Care Teams Gas Scrubber Operator Relationship Specialty Start Date End Date Ruth Hoffmann FNP PCP - General Family Medicine 07/21/22 10/21/22 Marc Nicolas AGNP PCP - General Family Medicine 10/22/22 04/20/23 Radha Shah FNP [address] [place] [phone] PCP - General Family Medicine 04/21/23 04/25/24 [place]orage[place]ec[place] FNP [address] [place] [address] PCP - General Family Medicine 04/26/24 Colby Hirsch FNP [address] [place] [address] Nurse Practitioner Family Medicine 07/13/23 Candice Ugarte Safety Pin Assembling Machine OperatorCouncillor [employer] 12/27/23 documented as of this encounter
--- OUTSIDE RECORDS SUMMARY | 2025-07-25 17:39 | XMS_ITS | Patient Health Record ---
Author Organization [facility] Address [address] [place] [address] Care Team Providers Care Cross Roller Name Role Phone Radha Rodriguez Primary Care Provider Jaylan Clancy Unavailable [phone] Allergies Allergen (clinical drug ingredient) Drug/Non Drug Allergy documented on EMR Reaction Allergy Type Onset Date Status sea food (uncoded) Unknown Allergy A ctive diphenhydramine Benadryl Unknown Drug Allergy A ctive morphine Morphine Sulfate Unknown Drug Allergy Active quetiapine Quetiapine Fumarate Unknown Drug Allergy Active trazodone Trazodone HCl Unknown Drug Allergy Act arvin Reason For Referral No Information Medications Medication SIG (Take, Route, Frequency, Duration) Notes Start Date End Date Status Dicyclomine HCl 10 MG Capsule 1-2 Orally 30-60 minutes AC TID for abdominal cramps and diarrhea; Duration: 30 day(s) 12/29/2019 Active Baclofen as directed Active Trulicity 0.75 MG/0.5ML Solution Pen-injector as directed Subcutaneous once a week Active Senna 8.6 MG Tablet as directed Orally a s directed Active Pantoprazole Sodium 40 MG Tablet Delayed Release 1 tablet Orally Once a day; Duration: 30 day(s) 11/18/2020 Active metFORMIN HCl ER 500 MG Tablet Extended Release 24 Hour 1 tablet with evening meal Orally twice a day Active Pantoprazole Sodium 40 MG Tablet Delayed Release 1 tablet Orally Once a day; Duration: 30 day(s) 05/06/2020 Active DOK 1 capsule as needed Orally Once a day Active Pantoprazole Sodium 40 MG Tablet Delayed Release 1 tablet Orally Once a day 02/03/2018 Active Acetaminophen 325 MG Tablet TAKE 2 TABLETS BY MOUTH EVERY 6 HOURS NEEDED Oral; Duration: 12 Active Zoloft 50 MG Tablet 1 tablet Orally Once a day Active Amitriptyline HCl tablet as directed Orally Once a day Active Topamax 1 tablet Orally Once a day Active Ibuprofen Not-Taking /PRN busPIRone HCl 10 MG Tablet TAKE 1 TABLET BY MOUTH THREE TIMES DAILY Oral; Duration: 30 Active Vitamin A 01695 UNIT Capsule TAKE 1 CAPSULE BY MOUTH EVERY DAY Oral; Duration: 30 Active Pantoprazole Sodium 40 MG Tablet Delayed Release 1 tablet Orally Once a day; Duration: 30 day(s) 05/30/2022 Active Pantoprazole Sodium 40 MG Tablet Delayed Release 1 tablet Orally Once a day; Duration: 30 day(s) 05/26/2023 Active Pantoprazole Sodium 40 MG Tablet Delayed Release 1 tablet Orally Once a day; Duration: 30 day(s) 05/25/2022 Active Immunizations Vaccine Route Administration Date Status Comme nts Influenza Unknown 12/29/2019 Refused Social History Social History Additional Details Category Social Info Options Details Miscellaneous: Marital status: single Occupation: unemployed Section Notes: Nonsmoker; no alcohol Nonsmoker; no alcohol Nonsmoker; no alcohol Problems Problem Type SNOMED Code ICD Code Onset Dates Problem Status W/U Status Risk Notes Problem Epigastric pain (44917763) Epigastric abdominal pain (R10.13) Active confirmed Problem Irritable bowel syndrome with diarrhea (328971646) Irritable bowel syndrome with diarrhea (K58.0) Active confirmed Problem Elevated liver enzymes level (376086906) Elevated liver function tests (R79.89) Active confirmed Problem Fatty liver (934537504) Fatty liver (K76.0) Active confirmed Problem Gastroesophageal reflux disease (888866957) Gastroesophageal reflux disease, esophagitis presence not specified (K21.9) Active confirmed Problem Right upper quadrant pain (728821216) Abdominal pain, right upper quadrant (R10.11) Active confirmed Plan Of Treatment Pending Test Test Name Order Date BUN 12/29/2019 CREATININE 12/29/2019 LIVER PROFILE 02/04/2020 LIVER PROFILE 04/09/2020 LIVER PROFILE 12/29/2019 CBC w DIFF 12/29/2019 PROTHROMBIN TIME (PT, INR) 12/29/2019 [id number] (A1A) 12/29/2019 CAROTENE 12/29/2019 CERULOPLASMIN 12/29/2019 MITOCHONDRIAL [...] Start Date Coverage End Date MEDICAID OF [facility] [address] [place] [id number] HARMAN LEUGN Self - patient is the insured Medical (General) History Medical History History ICD Code Asthma Denies [place],CVA,renal disease Migraines Anxiety, depression, bipolar disease NIDDM EGD [place] [address] Romero described as basically unremarkable--gastric biopsies were normal--no sig. HH GERD--EGD 11/2017 with me pancho [facility] a small HH. Biopsies neg. for celiac [...]
--- OUTSIDE RECORDS SUMMARY | 2025-07-25 17:39 | XMS_ITS | Encounter Summary ---
Author Organization [employer] Address [address] [facility] 7[address] [place] [address] Care Team Providers Care Taker Out Name Role Phone Colby Hirsch VEHICLE WASHER Unavailable Unavailable [facility] Primary Care Provider [phone] Reason for Visit * Reason Comments Med Refill Encounter Details Date Type Department Care Team ([facility] st Contact Info) Description 04/18/[address] [facility] MEDICINE [address] [place], [place] [phone] [facility] [address] [place] [address] Arthralgia, unspecified joint Social History Tobacco Use [...] Description 08/01/2025 2:00 PM EST Clinical Support [facility] MEDICINE [address] [place] [address] Kira Bansal, MEREDITH 10/04/2025 2:00 PM EST Office Visit [facility] OPTOMETRY [address] [place] [address] Akila Elizabeth, OD [address] [place] [address] documented as of this encounter Visit Diagnoses Diagnosis Arthralgia, unspecified joint documented in this encounter Additional Health Concerns Assessment Noted Time PHQ-9 Depression Total Score: 0 02/27/20 25 10:29 AM EDT documented as of this encounter Care Teams Taker Out Relationship Specialty Start Date End Date Yecenia Frias FNP [address] [place] [address] PCP - General Family Medicine 04/26/24 Colby Hirsch FNP Nurse Practitioner Family Medicine 07/13/23 Candice Ugarte Dry Transfer WorkerInformatics Nurse 12/27/23 documented as of this encounter
--- OUTSIDE RECORDS SUMMARY | 2025-07-25 17:39 | XMS_ITS | Encounter Summary ---
Author Organization [employer] Address [address] [place] [address] Care Team Providers Care Civil Engineering Designer Name Role Phone Radha Shah Primary Care Provider [phone] Colby Hirsch Unavailable Unavailable [facility] AIR CONDITIONING SHEET METAL INSTALLER Primary Care Provider [phone] Encounter Details Date Type Department Care Team ([facility] st Contact Info) Description 10/29/2023 Orders Only [facility] [address] [place], [place] [phone] Radha Shah FNP [address] [place] [address] Social History Tobacco Use Types Packs/Day Years [...] Description 08/01/2025 2:00 PM EST Clinical Support [facility] [address] [place] [address] Kira Bansal RN 10/04/2025 2:00 PM EST Office Visit [facility] [address] [place] [address] Glenn, Akila, OD [address] [place] [address] documented as of this encounter Visit Diagnoses Not on filedocumented in this encounter Additional Health Concerns Assessment Noted Time PHQ-9 Depression Total Score: 8 09/02/19 24 11:12 AM EST documented as of this encounter Care Teams Civil Engineering Designer Relationship Specialty Start Date End Date Radha Shah FNP [address] [place] [phone] PCP - General Family Medicine 04/21/23 04/25/24 Yecenia Frias FNP [address] [place] [id number] PCP - General Family Medicine 04/26/24 Colby Hirsch FNP [address] [place] [address] Nurse Practitioner Family Medicine 07/13/23 Candice Ugarte Wood Pole TreaterTosser 12/27/23 documented as of this encounter
--- OUTSIDE RECORDS SUMMARY | 2025-07-25 17:39 | XMS_ITS | Encounter Summary ---
Author Organization [employer] Address [address] [facility] [address] [place] [address] Care Team Providers Care Plant Science Professor Name Role Phone Colby Hirsch METHODS SPECIALIST ENGINEER Unavailable Unavailable [facility] METHODS SPECIALIST ENGINEER Primary Care Provider [phone] Encounter Details Date Type Department Care Team (Latest Contact Info) Description 07/25/2025 Travel Social History Tobacco Use Types Packs/Day [...] of Assessment Author 0 07/25/2025 2:07 PM Fabi Coburn MA * Over the last 2 weeks, how often have you been bothered by any of the following problems? Question Answer Date of Assessment Author Feeling nervous, anxious, or on edge 0 07/25/2025 2:07 PM Fabi Hernandez MA Not being able to stop or control worrying 0 07/25/2025 2:07 PM Fabi Hernandez MA Worrying too much about different things 0 07/25/2025 2:07 PM Fabi Hernandez MA Trouble relaxing 0 07/25/2025 2:07 PM EST Fabi Nails MA Being so restless that it is hard to sit still 0 07/25/2025 2:07 PM Fabi Hernandez MA Becoming easily annoyed or irritable 0 07/25/2025 2:07 PM Fabi Hernandez MA Feeling afraid as if something awful might happen 0 07/25/2025 2:07 PM EST Fabi Hansen MA TAVON-7 Total Score 0 07/25/2025 2:07 PM Fabi Hernandez MA documented as of this encounter Plan of Treatment Upcoming Encounters Date Type Department Care Team (Late st Contact Info) Description 08/01/2025 2:00 PM EST Clinical Support [facility] [address] [place] [address] Kira Bansal RN 10/04/2025 2:00 PM EST Office Visit [facility] [address] [place] [address] Akila Elizabeth, OD [address] [place] [address] documented as of this encounter Goals Goal [...] Frias FNP documented as of this encounter Visit Diagnoses Not on filedocumented in this encounter Additional Health Concerns Active [...] as of this encounter Care Teams Plant Science Professor Relationship Specialty Start Date End Date Yecenia Frias FNP [address] [place] [address] PCP - General Family Medicine 04/26/24 Colby Hirsch FNP Nurse Practitioner Family Medicine 07/13/23 Candice Ugarte Key OperatorMasticator 12/27/23 documented as of this encounter
--- OUTSIDE RECORDS SUMMARY | 2025-07-25 17:39 | XMS_ITS | Encounter Summary ---
Author Organization [employer] Address [address] [facility] [address] [place] [address] Care Team Providers Care Supervisor Acoustical Tile Carpenters Name Role Phone Marc Nicolas Primary Care Provider Unavail able Radha Shah DIRECTOR PRODUCT Primary Care Provider [phone] Colby Hirsch Unavailable Unavailable [facility] DIRECTOR PRODUCT Primary Care Provider [phone] Reason for Visit * Reason Onset Date Comments Referral 01/26/2023 Encounter Details Date Type Department Care Team (Late st Contact Info) Description 01/26/2023 Telephone [facility] [address] [place], [place] [phone] Marc Nicolas AGNP Referral Social History Tobacco [...] 2:00 PM EST Clinical Support [facility] [address] [place] [address] Kira Bansal RN 10/04/2025 2:00 PM EST Office Visit [facility] OPTOMETRY [address] [place] [address] Akila Elizabeth, OD [address] [place] [address] documented as of this encounter Visit Diagnoses Not on filedocumented in this encounter Additional Health Concerns Assessment Noted Time PHQ-9 Depression Total Score: 19 023 3:57 PM EDT documented as of this encounter Care Teams Supervisor Acoustical Tile Carpenters Relationship Specialty Start Date End Date Marc Nicolas AGNP PCP - General Family Medicine 10/22/22 04/20/23 Radha Shah FNP [address] [place] [address] PCP - General Family Medicine 04/21/23 04/25/24 PillsburyYecenia FNP [address] [place] [address] PCP - General Family Medicine 04/26/24 Colby Hirsch FNP [address] [place] [phone] Nurse Practitioner Family Medicine 07/13/23 Candice Ugarte Office AnalystCigarette Roller 12/27/23 documented as of this encounter
--- OUTSIDE RECORDS SUMMARY | 2025-07-25 17:39 | XMS_ITS | Clinical Summary ---
Author Organization 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 Devices (Pulse Oximeter For Finger) misc -Check pulse and oxygen daily and prn 2021 Active fluticasone (Flonase) 50 MCG/ACT nasal spray USE 1-2 SPRAYS IN EACH NOSTRIL IN THE MORNING SHAKE GENTLY 48 g 2022 Active Novofine Pen Needle 32G X 6 MM misc USE ONCE DAILY DIRECTED 2022 Active Lancets (Unilet Micro-Thin 33G) misc USE FOUR TIMES DAILY TO TEST BLOOD SUGAR 2022 Active cetirizine (ZyrTEC) 10 MG tablet TAKE 1 TABLET BY MOUTH EVERY MORNING 90 tablet 1 2022 Active metFORMIN XR (Glucophage-XR) 500 MG 24 hr tabletIndication s:Type 2 diabetes mellitus without complication, with long-term current use of insulin (HCC) TAKE 1 TABLET BY MOUTH EVERY DAY WITH DINNER 90 tablet 1 2023 Active glucose blood test stripIndications :Type 2 diabetes mellitus without complication, with long-term current use of insulin ([facility]) 1 each by Other route 2 times daily. 100 each 12 2023 Active mirtazapine (Remeron) 7.5 MG tabletIndication s:Major depression with psychotic features (CMS/HCC) (HCC) Take 1 tablet (7.5 mg) by mouth at bedtime. 30 tablet 1 2023 Active risperiDONE (RisperDAL) 2 MG tabletIndication s:Major Depressive Disorder Take 1 tablet (2 mg) by mouth at bedtime. 30 tablet 1 2023 Active Blood Glucose Monitoring Suppl (FreeStyle Lite) w/Device kitIndications:T ype 2 diabetes mellitus without complication, with long-term current use of insulin ([facility]) 1 Device 2 times daily. 1 kit 2023 Active Alcohol Swabs (Alcohol Prep) 70 % pads USE 1 FOUR TIMES DAILY DIRECTED 200 each 11 07/11/20 25 11:50 AM EST 2024 Active omeprazole (PriLOSEC) [address] capsule TAKE 1 CAPSULE BY MOUTH EVERY MORNING BEFORE BREAKFAST. DO NOT BREAK, CRUSH, DISSOLVE OR CHEW. 90 capsule 3 2024 Active oxymetazoline (Afrin Nasal [place]) 0.05 % nasal sprayIndications :Viral upper respiratory illness Administer 2 sprays into each nostril every 12 (twelve) hours if needed for congestion for up to 2 days. Do not use for more than 3 days. 30 mL 2024 Active beta carotene (vitamin A) 3 MG (84283 UT) capsule TAKE 1 CAPSULE BY MOUTH EVERY MORNING 90 capsule 1 2024 Active cyanocobalamin (Vitamin B-12) 1000 MCG tabletIndication s:Other polyneuropathy TAKE 1 TABLET BY MOUTH EVERY DAY 90 tablet 2024 Active naloxone (Narcan) 4 mg/0.1 mL nasal sprayIndications :Chronic midline back pain, unspecified back location FOR SUSPECTED OPIOID OVERDOSE. SPRAY 0.1mL IN ONE NOSTRIL. REPEAT IN ALTERNATE NOSTRIL 2-3 MINUTES IF NEEDED. SEEK MEDICAL ATTENTION IMMEDIATELY EVEN IF PATIENT RESPONDS. 2 each 2 2024 Active clonazePAM (KlonoPIN) 0.5 MG tablet Take 1 tablet by mouth if needed in the morning and at bedtime for anxiety. 2024 Active escitalopram (Lexapro) 10 MG tablet Take 1 tablet by mouth Once per day. 2024 Active Ozempic, 0.25 or 0.5 MG/DOSE, 2 MG/3ML solution pen-injector INJECT 0.25 MG SUBCUTANESOULY ONCE A WEEK FOR 4 WEEKS, THEN INCREASE TO 0.5 MG SUBCUTANESOULY EVERY WEEK THEREAFTER 2024 Active atorvastatin (Lipitor) 40 MG tabletIndication s:Type 2 diabetes mellitus without complication, with long-term current use of insulin (HCC) Take 1 tablet (40 mg) by mouth in the morning. 90 tablet 3 02/26 Active cholecalciferol (Vitamin D-3) 10 MCG (400 UNIT) tablet TAKE 2 TABLETS BY MOUTH EVERY DAY 180 tablet 1 2024 Active budesonide-formo terol (Symbicort) 80-4.5 MCG/ACT inhalerIndicatio ns:Mild intermittent asthma without complication INHALE 2 PUFFS BY MOUTH EVERY 4 TO 6 HOURS NEEDED FOR WHEEZING OR SHORTNESS OF BREATH NO MORE THAN 12 PUFFS PER DAY RINSE MOUTH AFTER USING. 10.2 g 11 07/18/20 25 9:00 AM EST 2024 Active acetaminophen (Tylenol 8 Hour) 650 MG ER tabletIndication s:Sore throat,Stuffy and runny nose,Malaise,Hea dache, unspecified headache type Take 1 tablet (650 mg) by mouth every 8 (eight) hours if needed for mild pain. 60 tablet 1 2024 Active SUMAtriptan (Imitrex) 50 MG tablet Take 1 tablet (50 mg) by mouth 1 (one) time if needed for migraine for up to 27 doses. May repeat 2nd dose after 2 hours if needed 9 tablet 2 07/25/20 25 1:37 PM EST 2024 Active traMADol (Ultram) 50 MG tabletIndication s:Multiple joint pain Take 1 tablet (50 mg) by mouth every 12 (twelve) hours if needed for severe pain for up to 28 days. Do not start before July 11, 2025. 56 tablet 07/11/20 25 11:50 AM EST 08/08 Active Diclofenac Sodium 1 % gel APPLY TOPICALLY TO THE AFFECTED AREA(S) OF THE HAND EVERY DAY 100 g 1 2024 Active ibuprofen 800 MG tabletIndication s:Chronic left shoulder pain Take 1 tablet (800 mg) by mouth every 8 (eight) hours if needed for moderate pain. 30 tablet 1 07/25 Active docusate sodium (Colace) 100 MG capsuleIndicatio ns:Chronic idiopathic constipation Take 1 capsule (100 mg) by mouth Once per day. 30 capsule 3 2024 Active gabapentin (Neurontin) 300 MG capsule Take 1 capsule (300 mg) by mouth at bedtime. 30 capsule 3 07/25 Discontinued Diclofenac Sodium 1 % gel Apply once a day on the affected hand 100 g 1 07/13 Discontinued traMADol (Ultram) 50 MG tabletIndication s:Multiple joint pain TAKE 1 TABLET BY MOUTH EVERY TWELVE HOURS NEEDED FOR SEVERE PAIN FOR UP TO 28 DAYS 56 tablet 07/09 Discontinued( Reorder (will not trigger notification to Pharmacy)) nitrofurantoin, macrocrystal-mon ohydrate, (Macrobid) 100 MG capsuleIndicatio ns:Acute cystitis without hematuria Take 1 capsule (100 mg) by mouth 2 times daily for 5 days. 10 capsule 07/07 metroNIDAZOLE (Metrogel) 0.75 % vaginal gel Insert into the vagina at bedtime for 7 days. 70 g 07/03 Discontinued( Other) fluconazole (Diflucan) 150 MG tabletIndication s:Audrey vaginitis Take 1 tablet (150 mg) by mouth 1 (one) time for 1 dose. 1 tablet 07/03 Discontinued( Other) terconazole (Terazol 3) 80 MG vaginal suppositoryIndic ations:Audrey vaginitis Insert 1 suppository (80 mg) into the vagina at bedtime for 7 days. 7 suppository 07/05/20 1:35 PM EST 07/10 docusate sodium (Colace) 100 MG capsule Take 100 mg by mouth. 07/25 Discontinued( Reorder (will not trigger notification to Pharmacy)) Active Problems Problem Noted Date Diagnosed Date Bacterial vaginosis 07/03/2025 Costochondritis 03/06/2025 Assessment & Plan (03/06/2025 4:03 [...] is currently on the waitlist for [facility]. She was informed to call next month [...] mechanism to manage sxs, provided her with [facility] Crisis number for after hrs [...] skills discussed in session. She will contact [facility] crisis number as needed. Patient [...] >60 CM >60 CM Comment: NOTE: For -[place] individuals, multiply the result by 1.210.Chronic Kidney Disease: Estimated GFR < 60 mL/min/[id number] Kidney Disease: Estimated GFR < 15 mL/min/1.73m2 [...] >60 CM >60 CM Comment: NOTE: For -[place] individuals, multiply the result by 1.210.Chronic Kidney Disease: Estimated GFR < 60 mL/min/1.02s1Hcfkko Kidney Disease: Estimated GFR < 15 mL/min/1.73m2 [...] 09/25/2024 02/27/2025 Shortness of breath 09/25/2024 02/28/20 Microscopic hematuria 05/24/20242024 Assessment & Plan (05/24/2024 [...] psychotic features with peripartum onset, unspecified trimester ([facility]) 01/21/2023 0 01/21/2023 Schizoaffective disorder, de pressive type ([facility]) 01/21/2023 02/27/2025 Overview (02/17/2023): Diagnostic [...] in person with a female clinician [place]. At this time Sacha Rodriguez meets criteria [...] retiring patient is now referred to new [facility] psychiatric provider. Pt is aware that appts will be via televisit and that provider will not be an [facility] employee. She gives permission to share PHI. [...] night at bedtime (not prn). Based on [employer] notes, she appears to be taking Clonazepam [...] Encounters Date Type Department Care Team Description 07/25/2025 2:00 PM EST Office Visit [facility] MEDICINE [address] [place] [phone] AltagraciaYecenia whipple FNP Encounter for screening for malignant neoplasm of colon (Primary Dx); Paresthesia of both feet; Chronic left shoulder pain; Right upper quadrant pain; Chronic idiopathic constipation 07/25/2025 Travel 07/18/2025 Orders Only GENERIC EXTERNAL DATA DEPARTMENT Provider, Generic External Data 07/13/2025 Refill [facility]ICINE [address] [place] [phone] Cheryl Galan DO 07/09/2025 Refill [facility] MEDICINE [address] [place] [phone] KarnackYecenia FNP Multiple joint pain 07/09/2025 Refill [facility] MEDICINE [address] [place] [phone] KarnackYecenia [employer] Multiple joint pain 07/06/2025 Results Follow-Up [facility] WALK[facility] [address] [place] [address] KarnackYecenia FNP Vitamin A 07/05/2025 Refill [facility] MEDICINE [address] [place] [phone] KarnackYecenia FNP Multiple joint pain 07/04/2025 Telephone [facility] WALK[facility]IN [facility] [address] [place] [address] Katherine Patel FNP Lab Results 07/02/2025 2:00 PM EST Office Visit [facility] W[facility] [address] [place] [phone] Katherine Patel FNP Vaginal discharge (Primary Dx); Audrey vaginitis; Acute cystitis without hematuria 07/02/2025 Travel 06/20/2025 Orders Only GENERIC EXTERNAL DATA DEPARTMENT Provider, Generic External Data 06/18/2025 Orders Only [facility] [address] [address] KarnackYecenia [facility] Vitamin A deficiency (Primary Dx) 06/17/[address] [address] KarnackYecenia [employer] 06/13/2025 Travel 06/11/[address] [address] Karnack Yecenia [facility] Multiple joint pain 05/22/2025 12:00 PM EDT Office Visit [address] [address] Cheryl Galan DO Paresthesia of both feet (Primary Dx); Pain of both heels; Morning headache; Type 2 diabetes mellitus without complication, with long-term current use of insulin ([facility]); Pain of left thumb 05/22/2025 Travel 05/22/[address] [address] AltagraciaYecenia whipple [employer] Chart Prep 05/16/[address] [address] KarnackYecenia [facility] telephone call 05/14/[address] [address] Karnack Yecenia [facility] Multiple joint pain 05/07/2025 2:40 PM EDT [facility] [address] [address] Tony Haywood MD Sore throat (Primary Dx); Stuffy and runny nose; Malaise; Headache, unspecified headache type 05/07/2025 Travel 04/30/2025 1:00 PM EDT Clinical Support [address] [address] Kira Bansal, RN Long-term current use of opiate analgesic (Primary Dx) 04/30/2025 Telephone [facility] [address] [facility] [place] [address] Kira Bansal, RN BPI Scoring 04/30/2025 Travel from Last 3 Months Immunizations Immunization [...] housing situation today? I have dell rodrgiuez 01/12/[address] you li [...] 20 07/25/2025 2:00 PM EST Oxygen Saturation 98% 05/22/2025 12:57 PM EDT Inhaled Oxygen Concentration - - Weight 89.2 kg (196 lb 9.6 oz) 07/25/2025 2:00 P M EST Height 152.4 cm (5') 07/25/2025 2:00 PM EST Body Mass Index 38.4 07/25/2025 2:00 PM EST Plan of Treatment Upcoming Encounters Date Type Department Care Team (Late st Contact Info) Description 08/01/2025 2:00 PM EST Clinical Support [facility] MEDICINE [address] [place] [address] Kira Bansal, MEREDITH 10/04/2025 2:00 PM EST Office Visit [facility] OPTOMETRY [address] [place] [address] Akila Elizabeth, OD [address] [place] [address] Health Maintenance Due Date Last Done Comments [...] Mammogram 11/15/2025 11/16/2023 SDOH Screening 01/12/2026 01/12/2025 Alcohol/Substance Use Screening 05/22/2026 05/22/2025 Disability Screening 05/22/2026 05/22/2025 Diabetes: Urine Protein Screening 06/20/2026 06/20/2025, 02/26/2025, 02/07/2024, Additional history exists Depression Screening 07/25/2026 07/25/2025, 07/25/20 25 Tobacco Screening 07/25/2026 07/25/2025 Eye Exam 09/14/2026 09/14/2024, 08/24, 09/14/2024, Additional [...] on patient's age to complete this topic Goals Goal Patient Goal Type Associated Problems Recent Progress Patient-Stated? Author Help patients manage their type 2 diabetes Care Plan Help patients manage their type 2 diabetes No Katherine Patel FNP Patient has chronic kidney disease Care Plan Patient has chronic kidney disease No Katherine Patel FNP Patient has chronic kidney disease Care Plan Patient has chronic kidney disease No Nichol Hou, RN Patient has chronic kidney disease Care Plan Patient has chronic kidney disease No Yecenia Frias FNP Patient has chronic kidney disease Care Plan Patient has chronic kidney disease No Suyapa Walton Patient has chronic kidney disease Care Plan Patient has chronic kidney disease No Kira Bansal, MEREDITH Patient has chronic kidney disease Care Plan Patient has chronic kidney disease No Yecenia Frias FNP Procedures Procedure Name Priority Date/Time Associated Diagnosis Comments HEPATIC FUNCTION PANEL Routine 07/25/2025 2:50 PM EST Right upper quadrant pain VITAMIN B12/FOLATE, SERUM PANEL Routine 07/25/2025 2:50 PM EST Paresthesia of both feet IRON AND TOTAL IRON BINDING CAPACITY Routine 07/25/2025 2:50 PM EST Paresthesia of both feet FERRITIN Routine 07/25/2025 2:50 PM EST Paresthesia of both feet CBC WITH AUTO DIFFERENTIAL Routine 07/25/2025 2:50 PM EST Paresthesia of both feet GROSS AND MICROSCOPIC LEVEL 4 Routine 07/18/2025 1:13 PM EST GLUCOSE, WHOLE BLOOD Routine 07/18/2025 11:49 AM EST BACTERIAL VAGINOSIS PANEL Routine 07/02/2025 2:48 PM EST Vaginal discharge CULTURE, URINE, ROUTINE Routine 07/02/2025 2:27 PM EST Acute cystitis without hematuria POCT URINALYSIS DIPSTICK Routine 07/02/2025 2:23 PM EST Acute cystitis without hematuria ALBUMIN, RANDOM URINE W/CREATININE Routine 06/20/2025 2:13 [...] complication, with long-term current use of insulin ([facility]) POCT GLUCOSE Routine 05/22/2025 12:59 PM EDT Type 2 diabetes mellitus without complication, with long-term current use of insulin (CMS/HCC) POCT INFLUENZA B (ID NOW RAPID MOLECULAR) [...] Recently Relevant to Health Maintenance Results * Vitamin B12/Folate, Serum Panel (07/25/2025 2:50 PM EST) Vitamin B12 325 200 - 900 pg/mL [facility] Comment:NORMAL 200-900 PG/ML INDETERMINATE 160-199 PG/ML DEFICIENT < 160 PG/ML Folate 11.4 > or = 4.0 ng/mL [facility] Comment:Reference Values:> o r = 4.0 ng/mL< 4.0 ng/mL suggests folate deficiency Methotrexate, aminopterin and folinic acid(leucovorin) are chemotherapeutic agents whose molecularstructures are similar to folate; therefore, the Architectfolate assay cannot be used for patients using these drugs. Blood Venous blood specimen / Unknown 07/25/2025 2:50 PM EST 07/25/2025 4:02 PM EST [facility] LAB BLOOD ORDERABLES Final Re sult [facility] [address] [place] [address] [phone] * (ABNORMAL) CBC auto differential (07/25/2025 2:50 PM EST) White Blood Count 7.9 4.8 - 10.8 X10*3/uL [facility] Red Blood Count 4.09(L) 4.20 - 5.50 X10*6/uL [facility] Hemoglobin 10.0(L) 12.0 - 16.0 g/dl [facility] Hematocrit 32.8(L) 37.0 - 47.0 % [facility] Mean Corpuscular Volume 80.2 80.0 - 98.0 fL [facility] Mean Corpuscular Hemoglobin 24.4(L) 27.0 - 33.0 pg [facility] Mean Corpuscular HGB Conc 30.5(L) 31.0 - 35.0 g/dl [facility] Red Cell Distribution Width 14.0 11.0 - 16.0 % [facility] Platelet Count 272 160 - 400 X10*3/uL [facility] Mean Platelet Volume 10.5 9.4 - 12.3 fL [facility] Neutrophils Percent Auto 57.8 45 - 73 % [facility] Imm Gran Pct Auto 0.3 0.0 - 0.4 % [facility] Lymphocytes Percent Auto 32.3 20 - 40 % [facility] Monocytes Percent Auto 6.9 2 - 11 % [facility] Eosinophils Percent Auto 2.4 0 - 4 % [facility] Basophils Percent Auto 0.3 0 - 2 % [facility] NRBC Pct Auto 0.0 0.0 - 0.2 /100WBC [facility] Neutrophils Absolute Auto 4.6 2.0 - 8.3 x10*3/uL [facility] Imm Gran Abs Auto 0.02 0.00 - 0.03 X10*3/uL [facility] Lymphocytes Absolute Auto 2.5 1.2 - 4.9 X10*3/uL [facility] Monocytes Absolute Auto 0.5 0.1 - 1.2 X10*3/uL [facility] Eosinophils Absolute Auto 0.2 0.0 - 0.4 X10*3/uL [facility] Basophils Absolute Auto 0.0 0.0 - 0.2 X10*3/uL [facility] NRBC Abs Auto 0.000 0.0 - 0.012 X10*3/uL [facility] Blood Venous blood specimen / Unknown 07/25/2025 2:50 PM EST 07/25/2025 4:02 PM EST [facility] LAB BLOOD ORDERABLES Final Re sult [facility] [address] [place] [address] [phone] * Iron And Total Iron Binding Capacity (07/25/2025 2:50 PM EST) Iron 53 30 - 160 mcg/dL [facility] Total Iron Binding Capacity 317 228 - 428 mcg/dL [facility] Percent Iron Saturation 17 15 - 50 % [facility] Unsaturated Iron Binding 264 ug/dL [facility] Blood Venous blood specimen / Unknown 07/25/2025 2:50 PM EST 07/25/2025 4:02 PM EST us Yecenia Altagracia [employer] LAB BLOOD ORDERABLES Final Re sult Performing Organization Address City/[facility]/ZIP Co de Phone Number [facility] [address] [place] [address] [phone] * Ferritin (07/25/2025 2:50 PM EST) Ferritin 15 10 - 250 ng/mL [facility] Blood Venous blood specimen / Unknown 07/25/2025 2:50 PM EST 07/25/2025 4:02 PM EST [facility] LAB BLOOD ORDERABLES Final Re sult Performing Organization Address [facility] Co de Phone Number [facility] [address] [place] [phone] * (ABNORMAL) Hepatic Function Panel (07/25/2025 2:50 PM EST) Bilirubin, Total 0.4 0.0 - 1.0 mg/dL [facility] Bilirubin, Direct 0.2 0.0 - 0.5 mg/dL [facility] Aspartate Amino Transferase 26 5 - 31 U/L [facility] Alanine Aminotransferase 16 0 - 31 U/L [facility] Total Protein 7.2 6.5 - 8.0 g/dL [facility] Albumin Level 4.3 3.5 - 5.0 g/dL [facility] Alkaline Phosphatase 134(H) 39 - 117 U/L [facility] Blood Venous blood specimen / Unknown 07/25/2025 2:50 PM EST 07/25/2025 4:02 PM EST [facility] LAB BLOOD ORDERABLES Final Re sult Performing Organization Address [facility] Co de Phone Number [facility] [address] [place] [phone] * Gross and Microscopic Level 4 (07/18/2025 1:13 PM EST) 07/18/2025 1:13 PM EST 07/18/2025 2:37 PM EST [facility] - 07/24/2025 8:32 AM EST ----- ------- Name: Sacha Contreras Age/Sex: 44/F : 1980 Unit#: [id number] Attend Dr: Lionel Cintron MD Re07/18/25 Status: [facility] Location: [facility] Disch: ----- ------- SPEC : [id number] RECD: 07/18/25 STATUS: LEELEE NAVA NUM: [id number] MT: 07/18/25-1313 [facility] DR: Lionel Cintron MD ENTERED: 07/18/25-0995 SP TYPE: Surgical OTHR DR: Cheryl Galan DO ORDERED: Gross Micro L4 Diagnosis Skin, left breast, excision: Skin with dermal scar and focal melanocytic hyperplasia; no atypia or malignancy identified. Clinical History Unspecified lump in the left breast, lower outer Microscopic Description Microscopic sections reviewed. Material Received Skin lesion left breast Gross Description Received in formalin labeled skin lesion left breast is an unoriented ellipse of skin measuring 3.2 x 1.4 cm in greatest dimension which has been excised to a depth of 0.7 cm. The skin surface is guzman and wrinkled with a central raised, guzman-white, scarred area measuring 0.7 x 0.4 cm which is surrounded by a border of uninvolved skin ranging from 0.3- 1.2 cm. The underside is composed of pink-white subcutis with yellow adipose tissue at the deep margin measuring 0.2-0.3 cm in thickness. The margins of excision are inked blue. The longitudinal poles are submitted in cassette A1, 2 pieces. The remainder of the specimen is serially sectioned across the short axis revealing a white and pink white cut surface. The specimen is entirely submitted in cassettes A2 through 4, 3 pieces each in cassettes A2 and A3 and 4 pieces in cassette A4. ([facility]) IHC S/NG Disclaimer NOTE: Unless otherwise stated, all tissue is formalin-fixed and paraffin-embedded. Some or all of the immunohistochemical tests reported herein may have been developed and their performance characteristics determined by [facility]. They have not been cleared or [...] Sacha Contreras Age/Sex: 44/F : 1980 Unit#: [id number] Attend Dr: Lionel Cintron MD Re07/18/25 Status: [facility] Location: [facility] Disch: ----- ------- SPEC : [id number] RECD: 07/18/25 STATUS: LEELEE NAVA NUM: [id number] MT: 07/18/25-[address] [facility] [address]: Lionel Cintron MD ENTERED: 07/18/25 SP TYPE: Surgical OTHR DR: Cheryl Galan DO ORDERED: Gross Micro L4 Copies To: Cheryl Galan DO [address] [phone] Lionel Cintron MD [facility] [address] [place] [phone] ----- ------- Signed (signature on file) Raghav Merrill MD 07/24/25 0832 ----- ------- END OF REPORT us Generic External Data Provider LAB CYTOLOGY CANDIE BILLY Final Result [facility] [address], [place] [phone] * Glucose, Whole Blood (07/18/2025 11:49 AM EST) Glucose, Whole Blood 96 60 - 115 mg/dL [facility] Comment:METER #: [id number] 07/18/2025 11:4 9 AM EST 07/18/2025 11:52 AM EST us Generic External Data Provider LAB BLOOD ORDERAB LES Final Result Performing Organization Address [facility] Co de Phone Number [facility] [address] [place] [phone] * (ABNORMAL) Bacterial Vaginosis Panel (07/02/2025 2:48 PM EST) TRICHOMONAS VAGINALIS DETECTION BY PCR NOT DETECTED Not Detect [facility] BACTERIAL VAGINOSIS DETECTION BY PCR NEGATIVE Negative [facility] Comment:The BV organism targ ets of the Xpert Xpress MVP test can becommensal in women; Xpert Xpress MVP positive results forbacterial vaginosis should be considered in conjunction withother clinical and patient information to determine thedisease status. Organisms that are not detected by the XpertXpress MVP test have also been reported to be associatedwith BV and aerobic vaginitis.The Xpert Xpress MVP test performance has not been evaluatedin patients under the age of 14. AUDREY GROUP DETECTION BY PCR DETECTED(A) Not Detect [facility] Audrey glab krusei PCR NOT DETECTED Not Detect [facility] Swab Vaginal structure / Unknown 07/02/2025 2:48 PM EST 07/02/2025 4:22 PM EST us Katherine Patel [facility] MICROBIOLOGY - GENERAL ORD ERABLES Final Result Performing Organization Address [facility] Co de Phone Number [facility] [address] [place] [phone] * Culture, Urine, Routine (07/02/2025 2:27 PM EST) Urine Urine specimen obtained by clean catch procedure / Unknown 07/02/2025 2:27 PM EST 07/02/2025 4:22 PM EST Comment:UACC Narrative [facility] - 07/04/2025 7:45 AM EST Escherichia coli Quant > 100,000 cfu/mL Escherichia coli: Ampicillin <=2(S) Escherichia coli: Cefazolin (Urine) <=1(S) Escherichia coli: Cefepime <=0.12(S) Escherichia coli: Ceftriaxone <=0.25(S) Escherichia coli: Ciprofloxacin <=0.06(S) Escherichia coli: Gentamicin <=1(S) Escherichia coli: Nitrofurantoin <=16(S) Escherichia coli: Trimethoprim/Sulfamethoxazole <=20(S) Specimen Source: Urine clean catch [facility] MICROBIOLOGY - GENERAL ORD ERABLES Final Result [facility] [address] [place] [address] [phone] * (ABNORMAL) POCT urinalysis dipstick manually resulted (CPT 76675) (07/02/2025 2:23 PM EST) Color, UA Yellow Clarity, UA Cloudy Glucose, UA Negative Bilirubin, UA Trace Comment:small Ketones, UA Positive Comment:15 Spec Grav, UA 1.020 Blood, UA Positive(A) Negative, None Detected Comment:moderate pH, UA 6.0 Protein, UA Trace Comment:100 Urobilinogen, UA 1.0 Leukocytes, UA Moderate(A) Negative, Rare, Trace Comment:large Nitrite, UA Positive(A) Negative, None Detected QC Media Lot # [id number] Lot# Expiration Date ,026 Urine (Urine, Random) 07/02/2025 2:23 PM EST [facility] POINT OF CARE TEST ENTER/EDIT ORDERABLES Final Result * Albumin, Random Urine W/Creatinine (06/20/2025 2:13 PM EDT) Creatinine, Urine 252.18 mg/dL [facility] Microalbumin Urine 33.0 mg/L [facility] Microalbum Creatinine Ratio Ur 13.0 <30 ug/mg cr [facility] Comment:Albumin/Creatinine R atio Reference Ranges: Normal: < 30 ug/mg creatinine Microalbuminuria: 30 - 300 ug/mg creatinineClinical Albuminuria: > 300 ug/mg creatinine 06/20/2025 2:13 PM EDT 06/20/2025 3:57 PM EDT Generic External Data Provider LAB URINE ORDERAB LES Final Result Performing Organization Address City/[facility]/ZIP Co de Phone Number [facility] [address] [place] [phone] * Vitamin A (06/20/2025 11:55 AM EDT) Vitamin A (Retinol) 43 38 - 98 mcg/dL [facility] Comment:Vitamin supplementat ion within 24 hours prior toblood draw may affect the accuracy of the results.This test was developed and its analytical performancecharacteristics have been determined by [email or web address] [place], [place]. It hasnot been cleared or approved by the U.S. Food and DrugAdministration. This assay has been validated pursuantto the CLIA regulations and is used for clinicalpurposes.THIS TEST WAS PERFORMED AT:[employer]/[facility] [place] [phone] PICKARD MD,PHD Blood Venous blood specimen / Unknown 06/20/2025 11:55 AM EDT 06/20/2025 1:13 PM EDT [facility] BLOOD ORDERABLES Final Re sult [facility] [address] [place] [phone] * Hemoglobin A1c (06/20/2025 11:55 AM EDT) Hemoglobin A1c 5.6 <6.0 % [facility] Comment:Hemoglobin A1C Refer ence Range Adults: 4.8 - 6.0 % Non diabetic: < 6.0 % Goal: < 7.0 %Additional Action Suggested: > 8.0 %Note: Hemoglobin A1c results are invalid for patients with abnormal amounts of HbF. Blood transfusions may impact the HbA1c concentration in the patient sample. Estimated Average Glucose 114 mg/dL [facility] Comment:eAG = Estimated ave rage glucose which is %A1C expressed asaverage glucose, using the formula of the M4V-LaiqavuTjwiqtk Glucose study (ADAG), Diabetes Care, Vol.31,#8,Mar. 2007 06/20/2025 11:5 5 AM EDT 06/20/2025 1:13 PM EDT us Generic External Data Provider LAB BLOOD ORDERAB LES Final Result [facility] [address] [place] [phone] * (ABNORMAL) Comprehensive Metabolic Panel (06/20/2025 11:55 AM EDT) Sodium 144 135 - 145 mmol/L [facility] Potassium 3.7 3.3 - 5.1 mmol/L [facility] Chloride 112(H) 96 - 108 mmol/L [facility] Carbon Dioxide 24 22 - 29 mmol/L [facility] Anion Gap 12 12 - 20 [facility] Urea Nitrogen (BUN) 14 9 - 16 mg/dL [facility] Creatinine, Serum 0.67 0.5 - 1.4 mg/dL [facility] Estimated Glomerular Filt Rate >60 [facility] Comment:Chronic Kidney Disea se: Estimated GFR < 60 mL/min/1.33s9Dwnzvb Kidney Disease: Estimated GFR < 15 mL/min/1.73m2 Glucose 127(H) 60 - 115 mg/dL [facility] Calcium 9.1 8.4 - 10.2 mg/dL [facility] Bilirubin, Total 0.4 0.0 - 1.0 mg/dL [facility] Aspartate Amino Transferase 28 5 - 31 U/L [facility] Alanine Aminotransferase 19 0 - 31 U/L [facility] Total Protein 7.5 6.5 - 8.0 g/dL [facility] Albumin Level 4.4 3.5 - 5.0 g/dL [facility] Alkaline Phosphatase 125(H) 39 - 117 U/L [facility] 06/20/2025 11:5 5 AM EDT 06/20/2025 1:13 PM EDT us Generic External Data Provider LAB BLOOD ORDERAB LES Final Result Performing Organization Address City/State/[facility] Co de Phone Number [facility] [address] [place] [phone] * XR Foot 3+ Views Right (05/22/2025 1:30 PM EDT) Anatomical Region Laterality Modality Lower Extremities, Foot Right Radiogra phic Imaging 05/22/2025 1:30 PM EDT Narrative 05/22/2025 1:43 PM EDT [address] [address] XRay Report Signed Patient: Sacha Contreras MR#: [id number] : 1980 Acct:[id number] Age/Sex: 44 / F ADM Date: 05/22/25 Loc: HO.HHCX Attending Dr: Cheryl Galan DO Ordering Physician: Cheryl Galan DO Date of Service: 05/22/25 Procedure(s): XR foot RT min 3V Accession Number(s): [id number] cc: Cheryl Galan DO Reason for Exam: [...] 05/22/25 1341 DD/ 1330 TD/TT: 05/22/25 1334 Sales Product Manager: Procedure Note Kletonottitater, Image - 05/22/[address] [address] XRay Report Signed Patient: Xavier ContrerasR#: [id number] : 1980Acct:[id number] Age/Sex: 44 / FADM Date: 05/22/25 [facility]: Cheryl Galan DO Ordering Physician: Cheryl Galan DO Date of Service: 05/22/25 Procedure(s): XR foot RT min 3V Accession Number(s): [id number] cc: Cheryl Galan DO Reason for Exam: [...] 05/22/25 1341 DD/ 1330 TD/TT: 05/22/25 1334 Sales Product Manager: Cheryl Galan DO IMG XR PROCEDURES Final Resu lt * XR Foot 3+ Views Left (05/22/2025 1:30 PM EDT) Anatomical Region Laterality Modality Lower Extremities, Foot Left Radiogra phic Imaging 05/22/2025 1:30 PM EDT Narrative 05/22/2025 1:42 PM EDT [address] [address] XRay Report Signed Patient: Sacha Contreras MR#: [id number] : 1980 Acct:[id number] Age/Sex: 44 / F ADM Date: 05/22/25 Loc: [facility] Attending Dr: Cheryl Galan DO Ordering Physician: Cheryl Galan DO Date of Service: 05/22/25 Procedure(s): XR foot LT min 3V Accession Number(s): [id number] cc: Cheryl Galan DO Reason for Exam: [...] 05/22/25 1340 DD/ 1330 TD/TT: 05/22/25 1334 Sales Product Manager: Procedure Note Donotuseinterpreter, Image - 05/22/[address] [address] XRay Report Signed Patient: Xavier ContrerasR#: [id number] : 1980Acct:[id number] Age/Sex: 44 / FADM Date: 05/22/25 Loc: [facility] Attending Dr: Cheryl Galan DO Ordering Physician: Cheryl Galan DO Date of Service: 05/22/25 Procedure(s): XR foot LT min 3V Accession Number(s): [id number] cc: Cheryl Galan DO Reason for Exam: [...] 05/22/25 1340 DD/ 1330 TD/TT: 05/22/25 1334 Sales Product Manager: Cheryl Galan DO IMG XR PROCEDURES Final [...] Media Lot # [id number] Lot# Expiration Date 097 Blood Capillary blood specimen / Unknown 05/22/2025 12:59 PM EDT Cheryl Galan DO POINT OF CARE TEST ENTER/SANCHO T ORDERABLES Final Result * POCT Rapid Influenza B BALL ID NOW (05/07/2025 2:59 PM EDT) [facility] Influenza B Negative Negative, Indeterminate [facility] QC Media Lot # [id number] [facility] Lot# Expiration Date 42 [facility] Swab 05/07/2025 2:59 PM EDT Tony Haywood MD POINT OF CARE TEST ENTER/EDIT OR DERABLES Final Result Performing Organization Address [facility]/ZIP Co de Phone Number [facility] [address] [place] [phone] * POCT Rapid Influenza A BALL ID NOW (05/07/2025 2:59 PM EDT) [facility] Influenza A Negative Negative, Indeterminate [facility] QC Media Lot # [id number] [facility] Lot# Expiration Date [facility] Swab 05/07/2025 2:59 PM EDT Tony Haywood MD POINT OF CARE TEST ENTER/EDIT OR DERABLES Final Result Performing Organization Address [facility] Co de Phone Number [facility] [address] [place] [phone] * POCT Rapid Covid-19 BinaxNOW (05/07/2025 2:58 PM EDT) [facility] Rapid COVID Ag Negative QC Media Lot # [id number] Lot# Expiration Date 8,326 Swab 05/07/2025 2:58 PM EDT Tony Haywood MD POINT OF CARE TEST ENTER/EDIT OR DERABLES Final Result * POCT Rapid Strep A BALL ID NOW (05/07/2025 2:57 PM EDT) [facility] Rapid Strep A Screen Negative Negative, None Detected QC Media Lot # [id number] Lot# Expiration Date Swab 05/07/2025 2:57 PM [...] procedure / Unknown 04/30/2025 12:21 PM EDT Narrative Kira Bansal RN - 04/30/2025 12:21 PM EDT [employer] cup Lot#[id number] Exp. 05/29/26 Internal Pass Control [facility] POINT OF CARE TEST ENTER/EDIT ORDERABLES Final Result * HIV-1/2 Antigen and Antibodies, Fourth Generation, with Reflexes (10/23/2024 2:05 PM EST) HIV AB/AG Nonreactive Nonreactive [facility] Comment:HIV-1 p24 Ag and/or HIV-1/HIV-2 Ab not detected.A test result that is nonreactive does not exclude thepossibility of exposure to or infection with HIV-1 and/orHIV-2. Nonreactive results in this assay for individualswith prior exposure to HIV-1 and/or HIV-2 may be due toantigen and antibody levels that are below the limit ofdetection of this assay.The [employer] HIV Ag/Ab Combo assay result andsupplemental assay results should be interpreted inconjunction with the patient's clinical presentation,history and other laboratory results. If the results areinconsistent with clinical evidence, additional testing issuggested to confirm the result. Blood Venous blood specimen / Unknown 10/23/2024 2:05 PM EST 10/23/2024 4:20 PM EST [facility] BLOOD ORDERABLES Final Re sult Performing Organization Address City/[facility]/ZIP Co de Phone Number [facility] [address] [place] [phone] * (ABNORMAL) Lipid Panel, Standard (09/25/2024 1:22 PM EST) Triglycerides 109 <150 mg/dL [facility] Comment:Desirable Triglyceri de: less than 150 mg/dLBorderline High Triglyceride 150-199 mg/dLHigh Triglyceride: 200-499 mg/dLVery High Triglyceride: greater than or equal to 5OO mg/dL Cholesterol 128 <200 mg/dL [facility] Comment:Desirable Cholestero l: less than 200 mg/dLBorderline High Cholesterol: 200-239 mg/dLHigh Cholesterol: greater than 239 mg/dL LDL Cholesterol Calculated 71 <100 mg/dL [facility] Comment:Desirable LDL: less than [...] ORDERAB LES Final Result Performing Organization Address [facility]/ZIP Co de Phone Number [facility] [address] [place] [phone] * BI Mammogram Screening Tomosynthesis Bilateral (11/16/2023 1:25 PM EDT) Anatomical Region Laterality Modality Breast Bilateral Mammography 11/16/2023 1:25 PM EDT Narrative 12/02/2023 6:15 AM EDT [address] [place] [address] Mammography Report Signed Patient: Sacha Contreras MR#: [id number] : 1980 Acct:[id number] Age/Sex: 42 / F ADM Date: 11/16/23 Loc: HO.MAMMO Attending Dr: Radha Shah NP Ordering Physician: Radha Shah NP Results: 1Negativ e Date of Service: 11/16/23 Follow Up: 1 Year From Orig inal Mammogram Procedure(s): MM tomosynthesis screening BI Accession Number(s): [id number] cc: Radha Shah NP EXAMINATION: MM SCREENING [...] in OV> 12/02/23 0611 DD/ 1325 TD/TT: Sales Product Manager: Procedure Note Donotuseinterpreter, Image - 12/02/[address] [place] [address] Mammography Report Signed Patient: Xavier ContrerasR#: [id number] : 1980Acct:[id number] Age/Sex: 42 / FADM Date: 11/16/23 Loc: HO.MAMMO Attending Dr: Radha Shah HOTEL RESERVATIONIST Ordering Physician: Radha Shah NPResults: 1Negativ e Date of Service: 11/16/23Follow Up: 1 Year From Orig inal Mammogram Procedure(s): MM tomosynthesis screening BI Accession Number(s): [id number] cc: Radha Shah HOTEL RESERVATIONIST EXAMINATION: MM SCREENING DIGITAL BREAST TOMOSYNTHESIS, BILATERAL [...] in OV> 12/02/23 0611 DD/ 1325 TD/TT: Sales Product Manager: Radha Shah [facility] IM BI PROCEDURES Final Result * (ABNORMAL) Hepatitis Panel, General (02/22/2023 1:46 PM EDT) Hepatitis A Antibody Total REACTIVE( A) NON-REACT TAWNYA [employer] [facility] Comment: For additional information, please refer to http://education.[employer]/faq/ZJH264 (This link is being provided for informational/ educational purposes only.) Hepatitis B Surface Antibody QL REACTIVE( A) NON-REACT TAWNYA [employer] Hepatitis B Surface Ag NON-REACT TAWNYA NON-REACT TAWNYA [employer] [place] [employer] Comment: For additional information, please refer to http://EventBug/faq/DRJ734 (This link is being provided for informational/ educational purposes only.) Hepatitis B Core Antibody Total NON-REACT TAWNYA NON-REACT TAWNYA [employer] [place] [employer] Comment: For additional information, please refer to http://[employer]Bug/faq/JJV277 (This link is being provided for informational/ educational purposes only.) Hepatitis C Antibody NON-REACT TAWNYA NON-REACT TAWNYA [employer] [place] [employer] Comment: HCV antibody was non-reactive. There is no laboratory evidence of HCV infection. In most cases, no further action is required. However, if recent HCV exposure is suspected, a test for HCV RNA (test code 86760) is suggested. For additional information please refer to http://EventBug/faq/HPW10f3 (This link is being provided for informational/ educational purposes only.) 02/22/2023 1:46 PM EDT 02/22/2023 1:46 PM EDT Narrative [facility] - 02/26/2023 7:51 PM EDT FASTING:NO FASTING: NO Marc Nicolas [facility] LAB BLOOD ORDERABLES Final Res ult [facility] [address], [place] [address] [employer] [place] [employer] [address] [place] [phone] from Last 3 Months or Most Recently Relevant to Health Maintenance Additional Health Concerns Active Problems Noted Date Diagnosed Date Help patients manage their type 2 diabetes 07/04 Patient has chronic kidney disease 07/04/2025 Patient has chronic kidney disease 07/04/2025 Patient has chronic kidney disease 07/06/2025 Patient has chronic kidney disease 07/09/2025 Patient has chronic kidney disease 07/24/2025 Patient has chronic kidney disease 07/24/2025 Insurance [facility] C3 DENTAL-[facility] MEDICAID STAND ADULT Care Teams Office Cashier Relationship Specialty Start Date End Date KarnackYecenia FNP [address] [place] [phone] PCP - General Family Medicine 04/26/24 Colby Hirsch FNP Nurse Practitioner Family Medicine 07/13/23 Candice Ugarte Retail BankerFirst Coat Operator 12/27/23
--- OUTSIDE RECORDS SUMMARY | 2025-07-25 17:39 | XMS_ITS | Encounter Summary ---
Author Organization [employer] Address [address] [facility] 7t [place] [address] Care Team Providers Care Lead Athlete Name Role Phone Colby Hirsch MEDIA MARKETING COORDINATOR Unavailable Unavailable [facility] Primary Care Provider [phone] Reason for Visit * Reason Comments Med Refill Encounter Details Date Type Department Care Team ([facility] st Contact Info) Description 03/12/2025 Refill [facility] [address] [place], [place] [phone] Radha Shah FNP [address] [place] [address] Social History Tobacco Use Types Packs/Day Years [...] Description 08/01/2025 2:00 PM EST Clinical Support [facility] [address] [place] [address] Kira Bansal, MEREDITH 10/04/2025 2:00 PM EST Office Visit [facility] [address] [place] [address] Glenn, Akila, OD [address] [place] [address] documented as of this encounter Visit Diagnoses Not on filedocumented in this encounter Additional Health Concerns Assessment Noted Time PHQ-9 Depression Total Score: 0 02/27/20 25 10:29 AM EDT documented as of this encounter Care Teams Lead Athlete Relationship Specialty Start Date End Date Yecenia Frias FNP [address] [place] [address] PCP - General Family Medicine 04/26/24 Colby Hirsch FNP Nurse Practitioner Family Medicine 07/13/23 Candice Ugarte Warp HangerRespiratory Technician 12/27/23 documented as of this encounter
--- OUTSIDE RECORDS SUMMARY | 2025-07-25 17:39 | XMS_ITS | Encounter Summary ---
Author Organization [email or web address] Address [address] [facility] 7t [place] [address] Care Team Providers Care Shellfish Manager Name Role Phone Radha Shah Primary Care Provider [phone] Colby Hirsch Unavailable Unavailable [facility] Primary Care Provider [phone] Reason for Visit * Reason Comments Med Refill Encounter Details Date Type Department Care Team ([facility] st Contact Info) Description 11/24/2023 Refill [facility] [address] [place], [place] [phone] Radha Shah FNP [address], [place] [phone] Multiple joint pain Social History Tobacco Use [...] Description 08/01/2025 2:00 PM EST Clinical Support [facility] [address] [place] [address] Kira Bansal, MEREDITH 10/04/2025 2:00 PM EST Office Visit [facility] [address] [place] [address] Glenn, Akila, OD [address] [place] [address] documented as of this encounter Visit Diagnoses Diagnosis Multiple joint pain Pain in joint, multiple sites documented in this encounter Additional Health Concerns Assessment Noted Time PHQ-9 Depression Total Score: 8 09/02/19 24 11:12 AM EST documented as of this encounter Care Teams Shellfish Manager Relationship Specialty Start Date End Date Radha Shah FNP [address] [place] [address] PCP - General Family Medicine 04/21/23 04/25/24 Yecenia Frias FNP [address] [place] [address] PCP - General Family Medicine 04/26/24 Colby Hirsch FNP [address] [place] [address] Nurse Practitioner Family Medicine 07/13/23 Candice Ugarte Rn PractitionerAntique Furniture Repairer 12/27/23 documented as of this encounter
--- OUTSIDE RECORDS SUMMARY | 2025-07-25 17:39 | XMS_ITS | Encounter Summary ---
Author Organization [employer] Address [address] [facility] 7t [place] [address] Care Team Providers Care Cnc Manufacturing Engineer Name Role Phone Radha Shah Primary Care Provider [phone] Colby Hirsch Unavailable Unavailable [facility] SUBSTITUTE TEACHER Primary Care Provider Reason for Visit * Reason Onset Date Comments telephone call 10/29/2023 Encounter Details Date Type Department Care Team (Late st Contact Info) Description 10/29/2023 Refill [facility] [address] [place], [place] [phone] Radha Shah FNP [address] [place], [place] [phone] Multiple joint pain Social History Tobacco Use [...] does not remember the program name. A sample steamer from the program told her that if she still want to be in the program she needs a referral from PCP. Please call patient with any concern or questions. * Telephone Encounter - Celine Pate - 11/12/2023 9:46 AM EDT Patient walked in requesting a referral for a program. Patient does not remember the program name. A sample steamer from the program told her that if she still want to be in the program she needs a referral from PCP. Please call patient with any concern or questions. documented in this encounter Plan of Treatment Upcoming Encounters Date Type Department Care Team (Late st Contact Info) Description 08/01/2025 2:00 PM EST Clinical Support [facility] [address] [place] [address] Kira Bansal RN 10/04/2025 2:00 PM EST Office Visit [facility] [address] [place] [address] Akila Elizabeth, OD [address] [place] [address] documented as of this encounter Visit Diagnoses Diagnosis Multiple joint pain Pain in joint, multiple sites documented in this encounter Additional Health Concerns Assessment Noted Time PHQ-9 Depression Total Score: 8 09/02/19 24 11:12 AM EST documented as of this encounter Care Teams Cnc Manufacturing Engineer Relationship Specialty Start Date End Date Radha Shah FNP [address] [place] [address] PCP - General Family Medicine 04/21/23 04/25/24 Yecenia Frias FNP [address] [place] [phone] PCP - General Family Medicine 04/26/24 Colby Hirsch FNP [address] [place] [phone] Nurse Practitioner Family Medicine 07/13/23 Candice Ugarte Vocational Training InstructorPurchasing Engineer 12/27/23 documented as of this encounter
--- OUTSIDE RECORDS SUMMARY | 2025-07-25 17:40 | XMS_ITS | Encounter Summary ---
Author Organization [employer] Address 75 [facility] 7t [place] [address] Care Team Providers Care Apartment Locator Name Role Phone Marc Nicolas Primary Care Provider Unavail able Radha Shah ENGLISH HORN PLAYER Primary Care Provider + Colby Hirsch ENGLISH HORN PLAYER Unavailable Unavailable [facility] ENGLISH HORN PLAYER Primary Care Provider [phone] Reason for Visit * Reason Comments Med Refill Encounter Details Date Type Department Care Team (Late Contact Info) Description 04/07/2023 Refill [facility] CHC MED & PEDS [address] [place] [address] Marc Nicolas AGNP Multiple joint pain Social [...] Department Care Team (Late Contact Info) Description 08/01/2025 2:00 PM EST Clinical Support [facility] MEDICINE [address] [place], [place] [phone] Kira Bansal RN 10/04/2025 2:00 PM EST Office Visit [facility] OPTOMETRY [address] [place], [place] [phone] Akila Elizabeth, OD [address] [place] [address] documented as of this encounter Visit Diagnoses Diagnosis Multiple joint pain Pain in joint, multiple sites documented in this encounter Additional Health Concerns Assessment Noted Time PHQ-9 Depression Total Score: 0 04/02/20 2:10 PM EDT documented as of this encounter Care Teams Apartment Locator Relationship Specialty Start Date End Date Marc Nicolas AGNP PCP - General Family Medicine 10/22/22 04/20/23 Radha Shah FNP [address] [place] [address] PCP - General Family Medicine 04/21/23 04/25/24 [place] whipple FNP [address] [place] [address] PCP - General Family Medicine 04/26/24 Colby Hirsch FNP [address] [place] [address] Nurse Practitioner Family Medicine 07/13/23 Candice Ugarte Jewel Bearing DrillerChemistry Technical Officer 12/27/23 documented as of this encounter
--- OUTSIDE RECORDS SUMMARY | 2025-07-25 17:40 | XMS_ITS | Encounter Summary ---
Author Organization [employer] Address 75 [facility] 7t [place] [address] Care Team Providers Care Thermodynamics Professor Name Role Phone Radha Shah Primary Care Provider +5 Colby Hirsch Unavailable Unavailable [facility] Primary Care Provider [phone] Reason for Visit * Reason Comments Med Refill Encounter Details Date Type Department Care Team (Late st Contact Info) Description 01/04/2024 Refill [facility] MEDICINE [address] [place] [address] Colby Hirsch FNP Social History Tobacco Use [...] Description 08/01/2025 2:00 PM EST Clinical Support [facility] MEDICINE [address] [place] [address] Kira Bansal RN 10/04/2025 2:00 PM EST Office Visit [facility] OPTOMETRY [address] [place] [address] Akila Elizabeth, OD [address] [place] [address] documented as of this encounter Visit Diagnoses Not on filedocumented in this encounter Additional Health Concerns Assessment Noted Time PHQ-9 Depression Total Score: 6 12/28/19 24 11:17 AM EDT documented as of this encounter Care Teams Thermodynamics Professor Relationship Specialty Start Date End Date Radha Shah FNP [address] [place] [address] PCP - General Family Medicine 04/21/23 04/25/24 Wiley FordYecenia FNP [address] [place] [address] PCP - General Family Medicine 04/26/24 Colby Hirsch FNP [address] [place] [address] Nurse Practitioner Family Medicine 07/13/23 Candice Ugarte Asparagus CutterStone Derrickman And Rigger 5/6/24 documented as of this encounter
--- OUTSIDE RECORDS SUMMARY | 2025-07-25 17:40 | XMS_ITS | Encounter Summary ---
Author Organization [employer] Address 75 [facility] 7t [place] [address] Care Team Providers Care Mold Blower Name Role Phone Marc Nicolas Primary Care Provider Unavail able Radha Shah INSPECTOR MACHINED PARTS Primary Care Provider +2 Colby Hirsch INSPECTOR MACHINED PARTS Unavailable Unavailable [facility] INSPECTOR MACHINED PARTS Primary Care Provider [phone] Reason for Visit * Reason Onset Date Comments Med Refill 03/10/2023 Encounter Details Date Type Department Care Team ([facility] Contact Info) Description 03/10/2023 Telephone [facility] MEDICINE [address] [place] [address] Marc Nicolas AGNP Med Refill Social History [...] Upcoming Encounters Date Type Department Care Team ([facility] Contact Info) Description 08/01/2025 2:00 PM EST Clinical Support [facility] MEDICINE [address] [place] [address] Kira Bansal, RN 10/04/2025 2:00 PM EST Office Visit [facility] OPTOMETRY [address] [place], [place] [phone] Akila Elizabeth, OD [address] [place] [address] documented as of this encounter Visit Diagnoses Not on filedocumented in this encounter Additional Health Concerns Assessment Noted Time PHQ-9 Depression Total Score: 13 023 3:27 PM EDT documented as of this encounter Care Teams Mold Blower Relationship Specialty Start Date End Date Marc Nicolas AGNP PCP - General Family Medicine 10/22/22 04/20/23 Radha Shah FNP [address] [place] [address] PCP - General Family Medicine 04/21/23 04/25/24 [place] F[place] [address] [place] [address] PCP - General Family Medicine 04/26/24 Colby Hirsch FNP [address] [place] [address] Nurse Practitioner Family Medicine 07/13/23 Candice Ugarte Teletype OperatorGeneral Dentist/Owner 12/27/23 documented as of this encounter
--- OUTSIDE RECORDS SUMMARY | 2025-07-25 17:40 | XMS_ITS | Encounter Summary ---
Author Organization [employer] Address [address] [facility] 7t [place] [address] Care Team Providers Care Oil Analyst Name Role Phone Marc Nicolas Primary Care Provider Unavail able Radha Shah GUIDANCE SERVICES COORDINATOR Primary Care Provider +9 Colby Hirsch Unavailable Unavailable [facility] GUIDANCE SERVICES COORDINATOR Primary Care Provider [phone] Reason for Visit * Reason Comments Med Refill Encounter Details Date Type Department Care Team (Late Contact Info) Description 04/08/2023 Refill [facility] MEDICINE [address] [place] [address] Marc Nicolas AGNP Mixed anxiety and depressive [...] Support [facility] MEDICINE [address] [place], [place] [phone] Kira Bansal RN 10/04/2025 2:00 PM EST Office Visit [facility] OPTOMETRY [address] [place] [address] Akila Elizabeth, OD [address] [place] [address] documented as of this encounter Visit Diagnoses Diagnosis Mixed anxiety and depressive disorder Dysthymic disorder documented in this encounter Additional Health Concerns Assessment Noted Time PHQ-9 Depression Total Score: 0 04/02/20 23 2:10 PM EDT documented as of this encounter Care Teams Oil Analyst Relationship Specialty Start Date End Date Marc Nicolas AGNP PCP - General Family Medicine 10/22/22 04/20/23 Radha Shah FNP [address] [place] [address] PCP - General Family Medicine 04/21/23 04/25/24 [place]ia[place]ecenia whipple FNP [address] [place] [address] PCP - General Family Medicine 04/26/24 Colby Hrisch FNP [address] [place] [address] Nurse Practitioner Family Medicine 07/13/23 Candice Ugarte Cabinet AssemblerVamp Strap Ironer 12/27/23 documented as of this encounter
--- OUTSIDE RECORDS SUMMARY | 2025-07-25 17:40 | XMS_ITS | Encounter Summary ---
Author Organization [employer] Address [address] [facility] [address] 7t [place] [address] Care Team Providers Care Poker Manager Name Role Phone Radha Shah PRESS MANAGER Primary Care Provider +0 Colby Hirsch PRESS MANAGER Unavailable Unavailable [facility] PRESS MANAGER Primary Care Provider [phone] Reason for Visit * Reason Comments Med Refill Encounter Details Date Type Department Care Team (Late st Contact Info) Description 06/09/2023 Refill [facility] MEDICINE [address] [place] [address] Marilee Buckner FNP Multiple joint pain; Mixed [...] Description 08/01/2025 2:00 PM EST Clinical Support [facility] MEDICINE [address] [place] [address] Kira Bansal RN 10/04/2025 2:00 PM EST Office Visit [facility] OPTOMETRY [address] [place] [address] Glenn, Akila, OD [address] [place] [address] documented as of this encounter Visit Diagnoses Diagnosis Multiple joint pain Pain in joint, multiple sites Mixed anxiety and depressive disorder Dysthymic disorder documented in this encounter Additional Health Concerns Assessment Noted Time PHQ-9 Depression Total Score: 18 023 11:25 AM EDT documented as of this encounter Care Teams Poker Manager Relationship Specialty Start Date End Date Radha Shah FNP [address] [place] [address] PCP - General Family Medicine 04/21/23 04/25/24 Yecenia Frias FNP [address] [place] [address] PCP - General Family Medicine 04/26/24 Colby Hirsch FNP [address] [place] [address] Nurse Practitioner Family Medicine 07/13/23 Candice Ugarte Apartment Maintenance SupervisorBalance Staff Inspector 12/27/23 documented as of this encounter
--- OUTSIDE RECORDS SUMMARY | 2025-07-25 17:40 | XMS_ITS | Encounter Summary ---
Author Organization [employer] Address 75 [facility] 7t [place] [address] Care Team Providers Care Rn Mds Name Role Phone Radha Shah Primary Care Provider +1 Colby Hirsch Unavailable Unavailable [facility] Primary Care Provider [phone] Reason for Visit * Reason Comments Med Refill Encounter Details Date Type Department Care Team ([facility] st Contact Info) Description 07/02/2023 Refill [facility] MEDICINE [address] [place], [place] [phone] Radha Shah FNP [address] [place] [address] Multiple joint pain Social History Tobacco Use [...] Description 08/01/2025 2:00 PM EST Clinical Support [facility] MEDICINE [address] [place] [address] Kira Bansal RN 10/04/2025 2:00 PM EST Office Visit [facility] OPTOMETRY [address] [place] [address] Glenn, Akila, OD [address] [place] [address] documented as of this encounter Visit Diagnoses Diagnosis Multiple joint pain Pain in joint, multiple sites documented in this encounter Additional Health Concerns Assessment Noted Time PHQ-9 Depression Total Score: 6 06/15/20 23 10:23 AM EDT documented as of this encounter Care Teams Rn Mds Relationship Specialty Start Date End Date Radha Shah FNP [address] [place] [address] PCP - General Family Medicine 04/21/23 04/25/24 Yecenia Frias FNP 230 [place] [address] PCP - General Family Medicine 04/26/24 Colby Hirsch FNP [address] [place] [address] Nurse Practitioner Family Medicine 07/13/23 Candice Ugarte 911 Emergency DispatcherPneumatic Tube Fitter 12/27/23 documented as of this encounter
--- OUTSIDE RECORDS SUMMARY | 2025-07-25 17:40 | XMS_ITS | Encounter Summary ---
Author Organization [employer] Address [address] [facility] [address] 7t [place] [address] Care Team Providers Care Automatic Glove Former Name Role Phone Radha Shah Primary Care Provider +2 Colby Hirsch SQUARE DANCE CALLER Unavailable Unavailable [facility] SQUARE DANCE CALLER Primary Care Provider [phone] Encounter Details Date Type Department Care Team (Late st Contact Info) Description 04/24/2024 Orders Only [facility] CHC MED & PEDS [address] [place], [place] [phone] Radha Shah FNP [address] [place] [address] Elevated lipids (Primary Dx) Social History Tobacco [...] Description 08/01/2025 2:00 PM EST Clinical Support [facility] MEDICINE [address] [place] [address] Kira Bansal RN 10/04/2025 2:00 PM EST Office Visit [facility] OPTOMETRY [address] [place] [address] Akila Elizabeth, OD [address] [place] [address] documented as of this encounter Procedures Procedure Name Priority Date/Time Associated Diagnosis Comments LIPID PANEL, STANDARD Routine 05/12/2024 11:00 AM EDT Elevated lipids documented in this encounter Results * (ABNORMAL) Lipid Panel, Standard (05/12/2024 11:00 AM EDT) Triglycerides 100 <150 mg/dL [facility] Comment:Desirable Triglyceri de: less than 150 mg/dLBorderline High Triglyceride 150-199 mg/dLHigh Triglyceride: 200-499 mg/dLVery High Triglyceride: greater than or equal to 5OO mg/dL Cholesterol 101 <200 mg/dL [facility] Comment:Desirable Cholestero l: less than 200 mg/dLBorderline High Cholesterol: 200-239 mg/dLHigh Cholesterol: greater than 239 mg/dL LDL Cholesterol Calculated 44 <100 mg/dL [facility] Comment:Desirable LDL: less than 100 mg/dLNear Optimal/Above Optimal LDL: 110- 129 mg/dLBorderline High LDL: 130-159 mg/dLHigh LDL: 160-189 mg/dLVery High LDL: greater than or equal to 190 mg/dL HDL Cholesterol 37(L) >40 mg/dL [facility] Comment:Desirable HDL: great er than 40 mg/dL Note: This HDL assay may give artificially low results in patients with liver disease. Blood Venous blood specimen / Unknown 05/12/2024 11:00 AM EDT 05/12/2024 11:00 AM EDT Radha CASEY LAB BLOOD ORDERABLES Final Resu lt [facility] [address] [place] [address] [phone] documented in this encounter Visit Diagnoses Diagnosis Elevated lipids- Primary documented in this encounter Additional Health Concerns Assessment Noted Time PHQ-9 Depression Total Score: 7 03/07/20 24 10:13 AM EDT documented as of this encounter Care Teams Automatic Glove Former Relationship Specialty Start Date End Date Radha Shah FNP [address] [place] [address] PCP - General Family Medicine 04/21/23 04/25/24 [place] FNP [address] [place] [address] PCP - General Family Medicine 04/26/24 Colby Hirsch FNP [address] [place] [address] Nurse Practitioner Family Medicine 07/13/23 Candice Ugarte Operations LeadE D Tech 12/27/23 documented as of this encounter
--- OUTSIDE RECORDS SUMMARY | 2025-07-25 17:40 | XMS_ITS | Encounter Summary ---
Author Organization [employer] Address [address] [facility] [address] 7t [place] [address] Care Team Providers Care Pasteurizer Helper Name Role Phone Radha Shah PREVENTIVE MEDICINE PHYSICIAN Primary Care Provider +7 Colby Hirsch PREVENTIVE MEDICINE PHYSICIAN Unavailable Unavailable [facility] Primary Care Provider [phone] Reason for Visit * Reason Comments Med Refill Encounter Details Date Type Department Care Team (Late st Contact Info) Description 06/16/2023 Refill [facility] MEDICINE [address] [place] [address] Marc Nicolas AGNP Pain Social History Tobacco [...] Description 08/01/2025 2:00 PM EST Clinical Support [facility] MEDICINE [address] [place] [address] Kira Bansal RN 10/04/2025 2:00 PM EST Office Visit [facility] OPTOMETRY [address] [place] [address] Akila Elizabeth, OD [address] [place] [address] documented as of this encounter Visit Diagnoses Diagnosis Pain Generalized pain documented in this encounter Additional Health Concerns Assessment Noted Time PHQ-9 Depression Total Score: 6 06/15/20 23 10:23 AM EDT documented as of this encounter Care Teams Pasteurizer Helper Relationship Specialty Start Date End Date Radha Shah FNP [address] [place] [address] PCP - General Family Medicine 04/21/23 04/25/24 [place] FNP [address] [place] [address] PCP - General Family Medicine 04/26/24 Colby Hirsch FNP [address] [place] [address] Nurse Practitioner Family Medicine 07/13/23 Candice Ugarte E Commerce SpecialistScience And Operations Officer 12/27/23 documented as of this encounter
--- OUTSIDE RECORDS SUMMARY | 2025-07-25 17:40 | XMS_ITS | Encounter Summary ---
Author Organization [employer] Address 75 [facility] 7t [place] [address] Care Team Providers Care Entry Tech Name Role Phone Radha Shah Primary Care Provider +2 Colby Hirsch Unavailable Unavailable [facility] Primary Care Provider [phone] Reason for Visit * Reason Comments Med Refill Encounter Details Date Type Department Care Team ([facility] st Contact Info) Description 04/12/2024 Refill [facility] MEDICINE [address] [place], [place] [phone] Radha Shah FNP [address] [place], [place] [phone] Multiple joint pain Social History Tobacco Use [...] Description 08/01/2025 2:00 PM EST Clinical Support [address] [address] Kira Bansal, RN 10/04/2025 2:00 PM EST Office Visit [facility] OPTOMETRY [address] [place], [place] [phone] Akila Elizabeth, OD [address] [place] [address] documented as of this encounter Visit Diagnoses Diagnosis Multiple joint pain Pain in joint, multiple sites documented in this encounter Additional Health Concerns Assessment Noted Time PHQ-9 Depression Total Score: 7 03/07/20 24 10:13 AM EDT documented as of this encounter Care Teams Entry Tech Relationship Specialty Start Date End Date Radha Shah FNP [address] [place] [address] PCP - General Family Medicine 04/21/23 04/25/24 Yecenia Frias FNP [address] [place] [address] PCP - General Family Medicine 04/26/24 Colby Hirsch FNP [address] [place] [address] Nurse Practitioner Family Medicine 07/13/23 Candice Ugarte Belt And Link Assembly SupervisorPaper Goods Machine Set Up Operator 12/27/23 documented as of this encounter
--- OUTSIDE RECORDS SUMMARY | 2025-07-25 17:40 | XMS_ITS | Encounter Summary ---
Author Organization [employer] Address 75 [facility] 7t [place] [address] Care Team Providers Care Security Agent Name Role Phone Radha Shah Primary Care Provider +8 Cloby Hirsch Unavailable Unavailable [facility] Primary Care Provider [phone] Reason for Visit * Reason Comments Med Refill Encounter Details Date Type Department Care Team ([facility] st Contact Info) Description 02/16/2024 Refill [facility] MEDICINE [address] [place], [place] [phone] Radha Shah FNP [address] [place], [place] [phone] Multiple joint pain Social History Tobacco Use [...] Description 08/01/2025 2:00 PM EST Clinical Support [facility] MEDICINE [address] [place] [address] Kira Bansal, MEREDITH 10/04/2025 2:00 PM EST Office Visit [facility] OPTOMETRY [address] [place] [address] Glenn, Akila, OD [address] [place] [address] documented as of this encounter Visit Diagnoses Diagnosis Multiple joint pain Pain in joint, multiple sites documented in this encounter Additional Health Concerns Assessment Noted Time PHQ-9 Depression Total Score: 6 12/28/19 24 11:17 AM EDT documented as of this encounter Care Teams Security Agent Relationship Specialty Start Date End Date Radha Shah FNP [address] [place] [address] PCP - General Family Medicine 04/21/23 04/25/24 Yecenia Frias FNP [address] [place] [address] PCP - General Family Medicine 04/26/24 Colby Hirsch FNP [address] [place] [address] Nurse Practitioner Family Medicine 07/13/23 Candice Ugarte Electrical MachinistCement Tester Assistant 12/27/23 documented as of this encounter
--- OUTSIDE RECORDS SUMMARY | 2025-07-25 17:40 | XMS_ITS | Encounter Summary ---
Author Organization [employer] Address 75 [facility] 7t [place] [address] Care Team Providers Care Photogrammetric Technician Name Role Phone Colby Hirsch IMPLEMENTATION ANALYST Unavailable Unavailable [facility] Primary Care Provider [phone] Reason for Visit * Reason Onset Date Comments Med Refill 09/29/2024 Encounter Details Date Type Department Care Team ([facility] Contact Info) Description 09/29/2024 Telephone [facility] MEDICINE [address] [place], [place] [phone] [facility] [address] [place], [place] [phone] Med Refill Social History Tobacco Use Types [...] 50 MG tablet To be sent to: [facility] documented in this encounter Plan of Treatment Upcoming Encounters Date Type Department Care Team (Late st Contact Info) Description 08/01/2025 2:00 PM EST Clinical Support [facility] MEDICINE [address] [place] [address] Kira Bansal RN 10/04/2025 2:00 PM EST Office Visit [facility] OPTOMETRY [address] [place] [address] Akila Elizabeth, OD [address] [place] [address] documented as of this encounter Visit Diagnoses Not on filedocumented in this encounter Additional Health Concerns Assessment Noted Time PHQ-9 Depression Total Score: 7 03/07/20 24 10:13 AM EDT documented as of this encounter Care Teams Photogrammetric Technician Relationship Specialty Start Date End Date Yecenia Frias FNP [address] [place] [address] PCP - General Family Medicine 04/26/24 Colby Hirsch FNP Nurse Practitioner Family Medicine 07/13/23 Candice Ugarte Central Office Equipment EngineerWeb Specialist 12/27/23 documented as of this encounter
--- OUTSIDE RECORDS SUMMARY | 2025-07-25 17:40 | XMS_ITS | Encounter Summary ---
Author Organization [employer] Address 75 [facility] 7t [place] [address] Care Team Providers Care Data Security Administrator Name Role Phone Radha Shah FRAME REPAIRER Primary Care Provider + Colby Hirsch Unavailable Unavailable [facility] Primary Care Provider [phone] Reason for Visit * Reason Comments Med Refill Encounter Details Date Type Department Care Team (Late st Contact Info) Description 06/28/2023 Refill [facility] MED & PEDS [address] [place], [place] [phone] Radha Shah FNP [address] [place], [place] [phone] Schizoaffective disorder, depressive type (CMS/HCC) Social History [...] [facility] [address] [place] [address] Kira Bansal, MEREDITH 10/04/2025 2:00 PM EST Office Visit [facility] OPTOMETRY [address] [place] [address] Akila Elizabeth, OD [address] [place] [address] documented as of this encounter Visit Diagnoses Diagnosis Schizoaffective disorder, depressive type (CMS/HCC) (HCC) Schizoaffective disorder, unspecified condition documented in this encounter Additional Health Concerns Assessment Noted Time PHQ-9 Depression Total Score: 6 06/15/20 23 10:23 AM EDT documented as of this encounter Care Teams Data Security Administrator Relationship Specialty Start Date End Date Radha Shah FNP [address] [place] [address] PCP - General Family Medicine 04/21/23 04/25/24 Yecenia Frias FNP [address] [place] [address] PCP - General Family Medicine 04/26/24 Colby Hirsch FNP [address] [place] [address] Nurse Practitioner Family Medicine 07/13/23 Candice Ugarte Superintendent BuildingVideo Arcade Manager 12/27/23 documented as of this encounter
--- OUTSIDE RECORDS SUMMARY | 2025-07-25 17:40 | XMS_ITS | Encounter Summary ---
Author Organization [employer] Address 75 [facility] 7t [place] [address] Care Team Providers Care Premix Operator Concentrate Name Role Phone Colby Hirsch WELDING INSTRUCTOR Unavailable Unavailable [facility] Primary Care Provider [phone] Reason for Visit * Reason Comments Med Refill Encounter Details Date Type Department Care Team ([facility] Contact Info) Description 10/31/2024 Refill [facility] MEDICINE [address] [place], [place] [phone] [facility] 230 [place] [address] Type 2 diabetes mellitus without complication, with long-term current use of insulin ([facility]) Social History Tobacco Use Types [...] Description 08/01/2025 2:00 PM EST Clinical Support [facility] MEDICINE [address] [place] [address] Kira Bansal RN 10/04/2025 2:00 PM EST Office Visit [facility] OPTOMETRY [address] [place] [address] Glenn, Akila, OD 230 [place] [address] documented as of this encounter Visit Diagnoses Diagnosis Type 2 diabetes mellitus without complication, with long-term current use of insulin (HCC) documented in this encounter Additional Health Concerns Assessment Noted Time PHQ-9 Depression Total Score: 0 10/24/19 25 1:15 PM EST documented as of this encounter Care Teams Premix Operator Concentrate Relationship Specialty Start Date End Date Yecenia Frias FNP 230 [place] [address] PCP - General Family Medicine 04/26/24 Colby Hirsch FNP Nurse Practitioner Family Medicine 07/13/23 Candice Ugarte Equipment OilerUltrasound Tech 12/27/23 documented as of this encounter
--- OUTSIDE RECORDS SUMMARY | 2025-07-25 17:40 | XMS_ITS | Encounter Summary ---
Author Organization [employer] Address 75 [facility] 7t [place] [address] Care Team Providers Care Gauge Checker Name Role Phone Marc Nicolas Primary Care Provider Unavail able Radha Shah CEMENTING BULK MATERIAL OPERATOR Primary Care Provider +0 Colby Hirsch Unavailable Unavailable [facility] CEMENTING BULK MATERIAL OPERATOR Primary Care Provider [phone] Reason for Visit * Reason Comments Med Refill Encounter Details Date Type Department Care Team (Late Contact Info) Description 03/10/2023 Refill [facility] [address] [place] [address] Marc Nicolas AGNP Mixed anxiety and depressive [...] Description 08/01/2025 2:00 PM EST Clinical Support [facility] MEDIC[facility] 230 [place] [address] Kira Bansal, RN 10/04/2025 2:00 PM EST Office Visit [facility] OPTOMETRY [address] [place], [place] [phone] Akila Elizabeth, OD 230 [place] [address] documented as of this encounter Visit Diagnoses Diagnosis Mixed anxiety and depressive disorder Dysthymic disorder documented in this encounter Additional Health Concerns Assessment Noted Time PHQ-9 Depression Total Score: 13 023 3:27 PM EDT documented as of this encounter Care Teams Gauge Checker Relationship Specialty Start Date End Date Marc Nicolas AGNP PCP - General Family Medicine 10/22/22 04/20/23 Radha Shah FNP [address] [place] [address] PCP - General Family Medicine 04/21/23 04/25/24 JacksonvilleeYcenia FNP [address] [place] [address] PCP - General Family Medicine 04/26/24 Colby Hirsch FNP [address] [place] [address] Nurse Practitioner Family Medicine 07/13/23 Candice Ugarte Graduate FellowGeothermal Field Technician 12/27/23 documented as of this encounter
--- OUTSIDE RECORDS SUMMARY | 2025-07-25 17:40 | XMS_ITS | Encounter Summary ---
Author Organization [employer] Address [address] [facility] 7t [place] [address] Care Team Providers Care Social Studies Department Chair Name Role Phone Radha ShahP Primary Care Provider +6 Colby Hirsch Unavailable Unavailable [facility] Primary Care Provider [phone] Encounter Details Date Type Department Care Team ([facility] Contact Info) Description 02/17/2024 Community Care Management [facility] MEDICINE [address] [place], [place] [phone] Radha Shah FNP 230 [place] [address] Social History Tobacco Use Types Packs/Day Years [...] 2:00 PM EST Clinical Support [facility] MEDICINE 230 [place] [address] Kira Bansal RN 10/04/2025 2:00 PM EST Office Visit [facility] OPTOMETRY [address] [place] [address] Glenn, Akila, OD 230 [place] [address] documented as of this encounter Visit Diagnoses Not on filedocumented in this encounter Additional Health Concerns Assessment Noted Time PHQ-9 Depression Total Score: 6 12/28/19 24 11:17 AM EDT documented as of this encounter Care Teams Social Studies Department Chair Relationship Specialty Start Date End Date Radha Shah FNP [address] [place] [address] PCP - General Family Medicine 04/21/23 04/25/24 Yecenia Frias FNP [address] [place] [address] PCP - General Family Medicine 04/26/24 Colby Hirsch FNP [address] [place] [address] Nurse Practitioner Family Medicine 07/13/23 Candice Ugarte Licensed OpticianPerfect Binder Operator 12/27/23 documented as of this encounter
--- OUTSIDE RECORDS SUMMARY | 2025-07-25 17:40 | XMS_ITS | Encounter Summary ---
Author Organization [employer] Address [address] [facility] [address] 7t [place] [address] Care Team Providers Care Management Manager Name Role Phone Radha Shah Primary Care Provider + Colby Hirsch Unavailable Unavailable [facility] STRAIGHTENER AND ALIGNER Primary Care Provider [phone] Encounter Details Date Type Department Care Team ([facility] st Contact Info) Description 03/08/2024 Orders Only [facility] CHC MED & PEDS [address] [place], [place] [phone] Radha Shah FNP [address] [place] [address] Social History Tobacco Use Types Packs/Day Years [...] PM EST Clinical Support [facility] MEDICINE [address] [place] [address] Kira Bansal RN 10/04/2025 2:00 PM EST Office Visit [facility] OPTOMETRY [address] [place] [address] Glenn, Akila, OD 230 [place] [address] documented as of this encounter Visit Diagnoses Not on filedocumented in this encounter Additional Health Concerns Assessment Noted Time PHQ-9 Depression Total Score: 7 03/07/20 24 10:13 AM EDT documented as of this encounter Care Teams Management Manager Relationship Specialty Start Date End Date Radha Shah FNP [address] [place] [address] PCP - General Family Medicine 04/21/23 04/25/24 Yecenia Frias FNP [address] [place] [address] PCP - General Family Medicine 04/26/24 Colby Hirsch FNP [address] [place] [address] Nurse Practitioner Family Medicine 07/13/23 Candice Ugarte Servicer Coin MachinesRod Greaser 12/27/23 documented as of this encounter
--- OUTSIDE RECORDS SUMMARY | 2025-07-25 17:40 | XMS_ITS | Encounter Summary ---
Author Organization [employer] Address [address] [facility] [address] 7t [place] [address] Care Team Providers Care Cruller Maker Machine Name Role Phone Radha Shah SAP CONSULTANT Primary Care Provider +6 Colby Hirsch SAP CONSULTANT Unavailable Unavailable [facility] SAP CONSULTANT Primary Care Provider [phone] Reason for Visit * Reason Comments Med Refill Encounter Details Date Type Department Care Team (Late st Contact Info) Description 06/04/[address] [facility] MEDICINE 230 [place] [address] Marilee Buckner FNP Multiple joint [...] 05/23 11:25 AM EDT Muriel Simons * How difficult have these problems made it for you to do your work, take care of things at home, or get along with other people? Answer Date of Assessment Author Extremely difficult 06/07/2023 11:25 AM EDT Muriel Draper * Over the last 2 weeks, how [...] things Nearly every day 06/07/2023 11:25 AM EDMuriel Corley Feeling down, depressed, or hopeless Nearly every [...] down Not at all 06/07/2023 11:25 AM EDMuriel Corley Trouble concentrating on things, such as reading the newspaper or watching television Nearly every day 06/07/2023 11:25 AM EDT Muriel Simons Moving or speaking so slowly that other people could have noticed? Or the opposite - being so fidgety or restless that you have been moving around a lot more than usual. Several days 06/07/2023 11:25 AM EDMuriel Corley Thoughts that you would be better off or hurting yourself in some way Not at all 06/07/2023 11:25 AM EDMuriel Corley Patient Health Questionnaire-9 Score 18 06/07/2023 11:25 AM EDT Muriel Simons documented as of this encounter Plan of Treatment Upcoming Encounters Date Type Department Care Team (Late st Contact Info) Description 08/01/2025 2:00 PM EST Clinical Support [facility] MEDICINE 230 [place] [address] Kira Bansal RN 10/04/2025 2:00 PM EST Office Visit [facility] OPTOMETRY [address] [place] [address] Akila Elizabeth, OD 230 [place] [address] documented as of this encounter Visit Diagnoses Diagnosis Multiple joint pain Pain in joint, multiple sites Mixed anxiety and depressive disorder Dysthymic disorder documented in this encounter Additional Health Concerns Assessment Noted Time PHQ-9 Depression Total Score: 0 04/02/20 23 2:10 PM EDT documented as of this encounter Care Teams Cruller Maker Machine Relationship Specialty Start Date End Date Radha Shah FNP 230 [place] [address] PCP - General Family Medicine 04/21/23 04/25/24 ChignikYecenia FNP 230 [place] [address] PCP - General Family Medicine 04/26/24 Colby Hirsch FNP 230 [place] [address] Nurse Practitioner Family Medicine 07/13/23 Candice Ugarte Marketing DesignerShactor Helper 12/27/23 documented as of this encounter
--- OUTSIDE RECORDS SUMMARY | 2025-07-25 17:40 | XMS_ITS | Encounter Summary ---
Author Organization [employer] Address 75 [facility] 7t [place] [address] Care Team Providers Care Wood Science Professor Name Role Phone Marc Nicolas Primary Care Provider Unavail able Radha Shah Primary Care Provider +0 Colby Hirsch Unavailable Unavailable [facility] JACINTO Primary Care Provider [phone] Reason for Visit * Reason Onset Date Comments Med Refill 04/09/2023 Encounter Details Date Type Department Care Team (Late st Contact Info) Description 04/09/2023 Refill [facility] MEDICINE [address] [place] [address] Marc Nicolas AGNP Mixed anxiety and depressive [...] listed in EHR, no record. Spoke with [facility] pharmacy, she is listed as Romaine [...] (KlonoPIN) 0.5 MG tablet Please sent to [facility] [place], [place] - [address] [place] [address] documented in this encounter Plan of Treatment Upcoming Encounters Date Type Department Care Team (Late st Contact Info) Description 08/01/2025 2:00 PM EST Clinical Support [facility] MEDICINE [address] [place] [address] Kira Bansal RN 10/04/2025 2:00 PM EST Office Visit [facility] OPTOMETRY [address] [place] [address] Akila Elizabeth, LAY 230 [place] [address] documented as of this encounter Visit Diagnoses Diagnosis Mixed anxiety and depressive disorder Dysthymic disorder documented in this encounter Additional Health Concerns Assessment Noted Time PHQ-9 Depression Total Score: 0 04/02/20 2:10 PM EDT documented as of this encounter Care Teams Wood Science Professor Relationship Specialty Start Date End Date Marc Nicolas AGNP PCP - General Family Medicine 10/22/22 04/20/23 Radha Shah FNP [address] [place] [address] PCP - General Family Medicine 04/21/23 04/25/24 Yecenia Frias FNP 230 [place] [address] PCP - General Family Medicine 04/26/24 Colby Hirsch FNP [address] [place] [address] Nurse Practitioner Family Medicine 07/13/23 Candice Ugarte Bench InspectorSenior Database Administrator 12/27/23 documented as of this encounter
--- OUTSIDE RECORDS SUMMARY | 2025-07-25 17:40 | XMS_ITS | Encounter Summary ---
Author Organization [employer] Address 75 [facility] 7t [place] [address] Care Team Providers Care Tug Boat Captain Name Role Phone Radha Shah Primary Care Provider +6 Colby Hirsch Unavailable Unavailable [facility] FURNITURE ASSEMBLER Primary Care Provider [phone] Encounter Details Date Type Department Care Team ([facility] st Contact Info) Description 02/16/2024 Orders Only [facility] CHC MED & PEDS [address] [place], [place] [phone] Radha Shah FNP [address] [place], [place] [phone] Routine adult health maintenance (Primary Dx) Social [...] Description 08/01/2025 2:00 PM EST Clinical Support [facility] MEDICINE 230 [place] [address] Kira Bansal RN 10/04/2025 2:00 PM EST Office Visit [facility] OPTOMETRY [address] [place] [address] Glenn, Akila, OD 230 [place] [address] documented as of this encounter Visit Diagnoses Diagnosis Routine adult health maintenance- Primary documented in this encounter Additional Health Concerns Assessment Noted Time PHQ-9 Depression Total Score: 6 12/28/19 24 11:17 AM EDT documented as of this encounter Care Teams Tug Boat Captain Relationship Specialty Start Date End Date Radha Shah FNP 230 [place] [address] PCP - General Family Medicine 04/21/23 04/25/24 Yecenia Frias FNP [address] [place] [address] PCP - General Family Medicine 04/26/24 Colby Hirsch FNP 230 [place] [address] Nurse Practitioner Family Medicine 07/13/23 Candice Ugarte Assistant Branch Operations ManagerBoat Captain 12/27/23 documented as of this encounter
--- OUTSIDE RECORDS SUMMARY | 2025-07-25 17:40 | XMS_ITS | Encounter Summary ---
Author Organization [employer] Address 75 [facility] 7t [place] [address] Care Team Providers Care Adz Worker Name Role Phone Marc Nicolas Primary Care Provider Unavail able Radha Shah IT CONSULTANT Primary Care Provider +1 Colby Hirsch Unavailable Unavailable [facility] IT CONSULTANT Primary Care Provider [phone] Reason for Visit * Reason Comments Med Refill Encounter Details Date Type Department Care Team ([facility] Contact Info) Description 04/08/2023 Refill [facility] MEDICINE 230 [place] [address] Marc Nicolas AGNP Schizoaffective disorder, depressive type [...] Support [facility] MEDICINE [address] [place], [place] [phone] Kira Bansal RN 10/04/2025 2:00 PM EST Office Visit [facility] OPTOMETRY [address] [place] [address] Akila Elizabeth, OD 230 [place] [address] documented as of this encounter Visit Diagnoses Diagnosis Schizoaffective disorder, depressive type (CMS/HCC) (HCC) Schizoaffective disorder, unspecified condition Mixed anxiety and depressive disorder Dysthymic disorder documented in this encounter Additional Health Concerns Assessment Noted Time PHQ-9 Depression Total Score: 0 04/02/20 2:10 PM EDT documented as of this encounter Care Teams Adz Worker Relationship Specialty Start Date End Date Marc Nicolas AGNP PCP - General Family Medicine 10/22/22 04/20/23 Radha Shah FNP 230 [place] [address] PCP - General Family Medicine 04/21/23 04/25/24 PocahontasYecenia FNP 230 [place] [address] PCP - General Family Medicine 04/26/24 Colby Hirsch FNP [address] [place] [address] Nurse Practitioner Family Medicine 07/13/23 Candice Ugarte FlagsetterWire Winding Machine Operator 12/27/23 documented as of this encounter
--- OUTSIDE RECORDS SUMMARY | 2025-07-25 17:40 | XMS_ITS | Encounter Summary ---
Author Organization [employer] Address 75 [facility] 7t [place] [address] Care Team Providers Care Optical Engineering Technician Name Role Phone Colby Hirsch HORSE RACE TIMER Unavailable Unavailable [facility] Primary Care Provider [phone] Reason for Visit * Reason Comments Med Refill Encounter Details Date Type Department Care Team ([facility] Contact Info) Description 07/05/2025 Refill [facility] MEDICINE 230 [place], [place] [phone] [facility] 230 [place] [address] Multiple joint pain Social History Tobacco Use [...] Description 08/01/2025 2:00 PM EST Clinical Support [facility] MEDICINE [address] [place] [address] Kira Bansal, MEREDITH 10/04/2025 2:00 PM EST Office Visit [facility] OPTOMETRY [address] [place] [address] Akila Elizabeth, OD 230 [place] [address] documented as of this encounter Goals Goal Patient Goal Type Associated Problems Recent Progress Patient-Stated? Author Help patients manage their type 2 diabetes Care Plan Help patients manage their type 2 diabetes No Katherine Patel FNP Patient has chronic kidney disease Care Plan Patient has chronic kidney disease Katherine Borrero FNP Patient has chronic kidney disease Care Plan Patient has chronic kidney disease No Nichol Hou, MEREDITH documented as of this encounter Visit Diagnoses Diagnosis Multiple joint pain Pain in joint, multiple sites documented in this encounter Additional Health Concerns Active Problems Noted Date Diagnosed Date Help patients manage their type 2 diabetes 07/04 Patient has chronic kidney disease 07/04/2025 Patient has chronic kidney disease 07/04/2025 Assessment Noted Time PHQ-9 Depression Total Score: 10 025 1:53 PM EDT documented as of this encounter Care Teams Optical Engineering Technician Relationship Specialty Start Date End Date Yecenia Frias FNP [address] [place] [address] PCP - General Family Medicine 04/26/24 Colby Hirsch FNP Nurse Practitioner Family Medicine 07/13/23 Candice Ugarte Canine Enforcement OfficerWharf Labourer 12/27/23 documented as of this encounter
--- OUTSIDE RECORDS SUMMARY | 2025-07-25 17:40 | XMS_ITS | Encounter Summary ---
Author Organization [employer] Address 75 [facility] 7t [place] [address] Care Team Providers Care Greens Tier Name Role Phone Marc Nicolas Primary Care Provider Unavail able Radha Shah SHAKER OUT Primary Care Provider +8 Colby Hirsch Unavailable Unavailable Altagracia Yecenia SHAKER OUT Primary Care Provider [phone] Reason for Visit * Reason Onset Date Comments Med Refill 03/16/2023 Encounter Details Date Type Department Care Team (Late st Contact Info) Description 03/16/2023 Telephone [facility] MEDICINE 230 [place], [place] [phone] Marc Nicolas AGNP Med Refill Social History [...] 03/16/2023 3:56 PM EDT Pt scheduled for LAUNDRY MARKER SUPERVISOR RV 03/17/23 @ 10am. Tramadol refill due 03/19/23, Clonazepam refill due 03/18/23.Will forward request to PCP after LAUNDRY MARKER SUPERVISOR appt 03/17/23. * Telephone Encounter - Natividad Pate - 03/16/2023 3:36 PM EDT Tc from pt requesting medication refill on traMADol (Ultram) 50 MG tablet and clonazePAM (KlonoPIN)0.5 MG tablet documented in this encounter Plan of Treatment Upcoming Encounters Date Type Department Care Team (Late st Contact Info) Description 08/01/2025 2:00 PM EST Clinical Support [facility] MEDICINE [address] [place] [address] Kira Bansal, MEREDITH 10/04/2025 2:00 PM EST Office Visit [facility] OPTOMETRY [address] [place] [address] Glenn, Akila, OD 230 [place] [address] documented as of this encounter Visit Diagnoses Not on filedocumented in this encounter Additional Health Concerns Assessment Noted Time PHQ-9 Depression Total Score: 13 023 3:27 PM EDT documented as of this encounter Care Teams Greens Tier Relationship Specialty Start Date End Date Marc Nicolas AGNP PCP - General Family Medicine 10/22/22 04/20/23 Radha Shah FNP [address] [place] [address] PCP - General Family Medicine 04/21/23 04/25/24 Yecenia Frias FNP [address] [place] [address] PCP - General Family Medicine 04/26/24 Colby Hirsch FNP 230 [place] [address] Nurse Practitioner Family Medicine 07/13/23 Candice Ugarte Adoption CoordinatorScabbler 12/27/23 documented as of this encounter
--- OUTSIDE RECORDS SUMMARY | 2025-07-25 17:40 | XMS_ITS | Encounter Summary ---
Author Organization [employer] Address 75 [facility] 7t [place] [address] Care Team Providers Care Office Mover Name Role Phone Marc Nicolas Primary Care Provider Unavail able Radha Shah STREETSWEEPER OPERATOR Primary Care Provider + Colby Hirsch Unavailable Unavailable [facility] STREETSWEEPER OPERATOR Primary Care Provider [phone] Reason for Visit * Reason Comments Med Refill Encounter Details Date Type Department Care Team ([facility] Contact Info) Description 03/17/[address] [address] Marc Nicolas AGNP Mixed anxiety and depressive [...] Encounters Date Type Department Care Team ([facility] Contact Info) Description 08/01/2025 2:00 PM EST Clinical Support [address] [phone] Kira Bansal, RN 10/04/2025 2:00 PM EST Office Visit [facility] OPTOMETRY [address] [place], [place] [phone] Akila Elizabeth, OD 230 [place] [address] documented as of this encounter Visit Diagnoses Diagnosis Mixed anxiety and depressive disorder Dysthymic disorder documented in this encounter Additional Health Concerns Assessment Noted Time PHQ-9 Depression Total Score: 13 023 3:27 PM EDT documented as of this encounter Care Teams Office Mover Relationship Specialty Start Date End Date Marc Nicolas AGNP PCP - General Family Medicine 10/22/22 04/20/23 Radha Shah FNP 230 [place] [address] PCP - General Family Medicine 04/21/23 04/25/24 CushingYecenia FNP 230 [place] [address] PCP - General Family Medicine 04/26/24 Colby Hirsch FNP [address] [place] [address] Nurse Practitioner Family Medicine 07/13/23 Candice Ugarte Binding DyerPneumatic Jack Operator 12/27/23 documented as of this encounter
--- OUTSIDE RECORDS SUMMARY | 2025-07-25 17:40 | XMS_ITS | Encounter Summary ---
Author Organization [employer] Address [address] [facility] 7t [place] [address] Care Team Providers Care English Adjunct Faculty Name Role Phone Marc Nicolas Primary Care Provider Unavail able Radha Shah SPOTLIGHT OPERATOR Primary Care Provider +1 Colby Hirsch Unavailable Unavailable Altagracia Yecenia SPOTLIGHT OPERATOR Primary Care Provider [phone] Reason for Visit * Reason Onset Date Comments Results 04/09/2023 Encounter Details Date Type Department Care Team ([facility] st Contact Info) Description 04/09/2023 Telephone [facility] MEDIC[facility] [address] [place], [place] [phone] Marc Nicolas AGNP Results Social History Tobacco [...] AM EDT FYI T/C to pt. Through [employer] id - [id number] for below message. Pt. States she is having apt. With Dr. Sims on 05/03/2023 and wants to discuss on that day. Pt. Advised to give call back on [phone] if any questions or concerns. Pt. Verbally agreed and understood. Please review and advise if needed. * Telephone Encounter - Romeo Guido Child - 04/09/2023 12:19 PM EDT Tc from pt requesting status on results for Liver that were done a moth ago pt states. Please contact pt at [phone] Canadian Speaker documented in this encounter Plan of Treatment Upcoming Encounters Date Type Department Care Team (Late st Contact Info) Description 08/01/2025 2:00 PM EST Clinical Support [facility] MEDICINE [address] [place] [address] Kira Bansal, MEREDITH 10/04/2025 2:00 PM EST Office Visit [facility] OPTOMETRY [address] [place] [address] Akila Elizabeth, OD [address] [place] [address] documented as of this encounter Visit Diagnoses Not on filedocumented in this encounter Additional Health Concerns Assessment Noted Time PHQ-9 Depression Total Score: 0 04/02/20 23 2:10 PM EDT documented as of this encounter Care Teams English Adjunct Faculty Relationship Specialty Start Date End Date Marc Nicolas AGNP PCP - General Family Medicine 10/22/22 04/20/23 Radha Shah FNP [address] [place] [address] PCP - General Family Medicine 04/21/23 04/25/24 Yecenia Frias FNP [address] [place] [address] PCP - General Family Medicine 04/26/24 Colby Hirsch FNP [address] [place] [address] Nurse Practitioner Family Medicine 07/13/23 Candice Ugarte Ticket DispatcherCardroom Drawing Runner 12/27/23 documented as of this encounter
--- OUTSIDE RECORDS SUMMARY | 2025-07-25 17:40 | XMS_ITS | Encounter Summary ---
Author Organization [employer] Address [address] [facility] 7t [place] [address] Care Team Providers Care Embedded Linux Developer Name Role Phone Marc Nicolas Primary Care Provider Unavail able Radha Shah ENTRY WRITER Primary Care Provider +8 Colby Hirsch Unavailable Unavailable [facility] ENTRY WRITER Primary Care Provider [phone] Reason for Visit * Reason Comments Med Refill Encounter Details Date Type Department Care Team (Late st Contact Info) Description 03/10/2023 Refill [facility] [address] [place], [place] [phone] Marc Nicolas AGNP Mixed anxiety and depressive [...] Will send to PCP on 03/18/23. Has CORDAGE SALES REPRESENTATIVE scheduled 03/17/23. * Telephone Encounter - Chika Low - 03/15/2023 9:14 AM EDT Tc from patient requesting a med refill for medication tramadol [address] Nicolas documented in this encounter Plan of Treatment Upcoming Encounters Date Type Department Care Team (Late st Contact Info) Description 08/01/2025 2:00 PM EST Clinical Support [facility] [address] [place] [address] Kira Bansal RN 10/04/2025 2:00 PM EST Office Visit [facility] OPTOMETRY [address] [place], [place] [phone] Glenn, Akila, OD [address] [place] [address] documented as of this encounter Visit Diagnoses Diagnosis Mixed anxiety and depressive disorder Dysthymic disorder Multiple joint pain Pain in joint, multiple sites documented in this encounter Additional Health Concerns Assessment Noted Time PHQ-9 Depression Total Score: 13 023 3:27 PM EDT documented as of this encounter Care Teams Embedded Linux Developer Relationship Specialty Start Date End Date Marc Nicolas AGNP PCP - General Family Medicine 10/22/22 04/20/23 Radha Shah FNP [address] [place] [address] PCP - General Family Medicine 04/21/23 04/25/24 Yecenia Frias FNP [address] [place] [address] PCP - General Family Medicine 04/26/24 Colby Hirsch FNP [address] [place] [address] Nurse Practitioner Family Medicine 07/13/23 Candice Ugarte Geriatric Care ManagerPediatrician/Medical Doctor 12/27/23 documented as of this encounter
--- OUTSIDE RECORDS SUMMARY | 2025-07-25 17:40 | XMS_ITS | Encounter Summary ---
Author Organization [employer] Address [address] [facility] 7t [place] [address] Care Team Providers Care Sock Drier Name Role Phone Radha Shah Primary Care Provider +5 Colby Hirsch Unavailable Unavailable [facility] Primary Care Provider [phone] Reason for Visit * Reason Comments Med Refill Encounter Details Date Type Department Care Team ([facility] st Contact Info) Description 06/30/2023 Refill [facility] MEDICINE [address] [place], [place] [phone] Radha Shah FNP [address] [place], [place] [phone] Multiple joint pain Social History Tobacco Use [...] 2:00 PM EST Clinical Support [facility] MEDICINE [address] [place] [address] Kira Bansal RN 10/04/2025 2:00 PM EST Office Visit [facility] OPTOMETRY [address] [place] [address] Glenn, Akila, OD [address] [place] [address] documented as of this encounter Visit Diagnoses Diagnosis Multiple joint pain Pain in joint, multiple sites documented in this encounter Additional Health Concerns Assessment Noted Time PHQ-9 Depression Total Score: 6 06/15/20 23 10:23 AM EDT documented as of this encounter Care Teams Sock Drier Relationship Specialty Start Date End Date Radha Shah FNP [address] [place] [address] PCP - General Family Medicine 04/21/23 04/25/24 Yecenia Frias FNP [address] [place] [address] PCP - General Family Medicine 04/26/24 Colby Hirsch FNP [address] [place] [address] Nurse Practitioner Family Medicine 07/13/23 Candice Ugarte Social Services DirectorVeneer Layer 12/27/23 documented as of this encounter
--- OUTSIDE RECORDS SUMMARY | 2025-07-25 17:40 | XMS_ITS | Encounter Summary ---
Author Organization [employer] Address [address] [facility] [address] [place] [address] Care Team Providers Care Orthopedic Brace Maker Name Role Phone Colby Hirsch DISPLAY CARVER Unavailable Unavailable [facility] Primary Care Provider [phone] Reason for Visit * Reason Comments Med Refill Encounter Details Date Type Department Care Team ([facility] Contact Info) Description 07/09/[address] [facility] MEDICINE [address] [place], [place] [phone] [facility] [address] [place] [address] Multiple joint pain Social History Tobacco Use [...] 08/01/2025 2:00 PM EST Clinical Support [facility] MEDICINE [address] [place] [address] Kira Bansal RN 10/04/2025 2:00 PM EST Office Visit [facility] OPTOMETRY [address] [place] [address] Akila Elizabeth, OD [address] [place] [address] documented as of this encounter Goals Goal [...] Plan Patient has chronic kidney disease No iNchol Hou, MEREDITH Patient has chronic kidney disease Care Plan Patient has chronic kidney disease No Yecenia Frias FNP Patient has chronic kidney disease Care Plan Patient has chronic kidney disease Suyapa Akhtar documented as of this encounter Visit Diagnoses Diagnosis Multiple joint pain Pain in joint, multiple sites documented in this encounter Additional Health Concerns Active Problems Noted Date Diagnosed Date Help patients manage their type 2 diabetes 07/04 Patient has chronic kidney disease 07/04/2025 Patient has chronic kidney disease 07/04/2025 Patient has chronic kidney disease 07/06/2025 Patient has chronic kidney disease 07/09/2025 Assessment Noted Time PHQ-9 Depression Total Score: 10 025 1:53 PM EDT documented as of this encounter Care Teams Orthopedic Brace Maker Relationship Specialty Start Date End Date Yecenia Frias FNP [address] [place] [address] PCP - General Family Medicine 04/26/24 Colby Hirsch FNP Nurse Practitioner Family Medicine 07/13/23 Candice Ugarte Advertising Account RepresentativeCollections Representative 12/27/23 documented as of this encounter
--- OUTSIDE RECORDS SUMMARY | 2025-07-25 17:40 | XMS_ITS | Encounter Summary ---
Author Organization [employer] Address [address] [facility] 7t [place] [address] Care Team Providers Care Head Coach Name Role Phone Radha ShahP Primary Care Provider + Colby Hirsch Unavailable Unavailable [facility] Primary Care Provider [phone] Reason for Visit * Reason Onset Date Comments Results 02/16/2024 Care Coordination 02/16/[address] Kelly joshua telephone call outreached Encounter Details Date Type Department Care Team ([facility] st Contact Info) Description 02/16/2024 Telephone [facility] MEDICINE [address] [place] [address] Radha Shah FNP [address] [place] [address] Results; Care Coordination ([id number] telephone call outreached) Social History Tobacco [...] results: labs Date when done: 02/06 Facility: [facility] Please contact pt at [phone] documented in this encounter Plan of Treatment Upcoming Encounters Date Type Department Care Team (Late st Contact Info) Description 08/01/2025 2:00 PM EST Clinical Support [facility] MEDICINE [address] [place] [address] Kira Bansal, MEREDITH 10/04/2025 2:00 PM EST Office Visit [facility] OPTOMETRY [address] [place] [address] Akila Elizabeth, OD [address] [place] [address] documented as of this encounter Visit Diagnoses Not on filedocumented in this encounter Additional Health Concerns Assessment Noted Time PHQ-9 Depression Total Score: 6 12/28/19 24 11:17 AM EDT documented as of this encounter Care Teams Head Coach Relationship Specialty Start Date End Date Radha Shah FNP [address] [place] [address] PCP - General Family Medicine 04/21/23 04/25/24 [place] HeightsYecenia FNP [address] [place] [address] PCP - General Family Medicine 04/26/24 Colby Hirsch FNP [address] [place] [address] Nurse Practitioner Family Medicine 07/13/23 Candice Ugarte Newspaper CarrierNutrition Specialist 12/27/23 documented as of this encounter
--- OUTSIDE RECORDS SUMMARY | 2025-07-25 17:40 | XMS_ITS | Encounter Summary ---
Author Organization [employer] Address [address] [facility] 7t [place] [address] Care Team Providers Care Logger Name Role Phone Colby Hirsch TURBINE ROOM ATTENDANT Unavailable Unavailable [facility] Primary Care Provider [phone] Encounter Details Date Type Department Care Team ([facility] Contact Info) Description 08/11/2024 Telephone [facility] MEDICINE [address] [place], [place] [phone] [facility] [address] [place] [address] Social History Tobacco Use Types Packs/Day Years [...] Clinical Support [facility] [address] [place] [address] Kira Bansal RN 10/04/2025 2:00 PM EST Office Visit [facility] OPTOMETRY [address] [place] [address] Akila Elizabeth, OD [address] [place] [address] documented as of this encounter Visit Diagnoses Not on filedocumented in this encounter Additional Health Concerns Assessment Noted Time PHQ-9 Depression Total Score: 7 03/07/20 24 10:13 AM EDT documented as of this encounter Care Teams Logger Relationship Specialty Start Date End Date Yecenia Frias FNP [address] [place] [address] PCP - General Family Medicine 04/26/24 Colby Hirsch FNP Nurse Practitioner Family Medicine 07/13/23 Candice Ugarte Computerized Mill RecorderWrist Closer 12/27/23 documented as of this encounter
== END 2025-07-25 14:46 | disposition home or self-care (01) ==
LOC: HO.HHCL 14:45
PROVIDERS: PCP Registered Nurse; Visit Provider Registered Nurse
DX: R20.2 Paresthesia of skin (principal); R10.11 Right upper quadrant pain
CPT/HCPCS: 36415; 80076; 82607; 82728; 82746; 83540; 85025

== ENCOUNTER 2025-07-31 11:27 | Outpatient (REF) | payer MEDICAID, SELFPAY ==
[2025-07-31 12:03] LABS: MANUAL DIFF FLAG NO
[2025-07-31 12:31] LABS: Hematocrit 33.6 % (37.0-47.0); Hemoglobin 10.3 g/dl (12.0-16.0); Imm Gran Abs Auto 0.03 X10*3/uL (0.00-0.03); Imm Gran Pct Auto 0.3 % (0.0-0.4); Lymphocytes Absolute Auto 2.7 X10*3/uL (1.2-4.9); Mean Corpuscular HGB Conc 30.7 g/dl (31.0-35.0); Mean Corpuscular Hemoglobin 24.9 pg (27.0-33.0); Mean Corpuscular Volume 81.4 fL (80.0-98.0); NRBC Abs Auto 0.000 X10*3/uL (0.0-0.012); NRBC Pct Auto 0.0 /100WBC (0.0-0.2); Platelet Count 265 X10*3/uL (160-400); Red Blood Count 4.13 X10*6/uL (4.20-5.50); White Blood Count 8.9 X10*3/uL (4.8-10.8)
[2025-07-31 12:57] LABS: Alanine Aminotransferase 16 U/L (0-31); Albumin Level 4.4 g/dL (3.5-5.0); Alkaline Phosphatase 137 U/L (39-117); Anion Gap 10 (12-20); Aspartate Amino Transferase 25 U/L (5-31); Blood Urea Nitrogen 10 mg/dL (9-16); Calcium 9.2 mg/dL (8.4-10.2); Carbon Dioxide 28 mmol/L (22-29); Chloride 109 mmol/L (96-108); Estimated Glomerular Filt Rate > 60; Potassium 3.8 mmol/L (3.3-5.1); Sodium 143 mmol/L (135-145); Total Protein 7.4 g/dL (6.5-8.0)
[2025-07-31 13:20] LABS: Ferritin 11 ng/mL (10-250)
== END 2025-07-31 11:28 | disposition home or self-care (01) ==
LOC: HO.LAB 11:27
PROVIDERS: Absent Provider Physician Assistant; PCP Registered Nurse; Visit Provider Surgery
DX: N63.23 Unspecified lump in the left breast, lower outer quadrant (principal); E11.9 Type 2 diabetes mellitus without complications; Z48.817 Encounter for surgical aftercare following surgery on the skin and subcutaneous tissue; E66.01 Morbid (severe) obesity due to excess calories; E61.1 Iron deficiency
CPT/HCPCS: 36415; 80053; 82728; 83036; 85025; 99212

== ENCOUNTER 2025-07-31 11:27 | Outpatient (AMB) | payer MEDICAID, SELFPAY ==
--- NOTE | 2025-07-31 11:29 | MHC.OFFVIS ---
Intake Visit Reasons: s/p Excision lt breast mass 9 O'clock Intake Note: Patient is seen in office for post op assessment post excision of left breast mass. Pt c/o: admits to pain, sore and bruise Financial Service Representative Required: Yes Financial Service Representative Language: Mechanical Integrity Specialist Services: Financial Service Representative Present Accompanied by: Self / Same As Patient Allergies pineapple Allergy (Severe, Verified 07/31/25 11:31) tongue swelling diphenhydramine (From BENADRYL) Allergy (Intermediate, Verified 07/31/25 11:31) HALLUCINATIONS morphine (MORPHINE) Allergy (Intermediate, Verified 07/31/25 11:31) DIAPHORESIS; TACHYCARDIA, palpitations, sweating, tingling of hands and face quetiapine (From SEROQUEL) Allergy (Intermediate, Verified 07/31/25 11:31) PALPITATIONS seafood Allergy (Intermediate, Verified 07/31/25 11:31) redness/itching tomato Allergy (Intermediate, Verified 07/31/25 11:31) Blister trazodone (TRAZODONE) Allergy (Intermediate, Verified 07/31/25 11:31) GI Upset, HEART RACING, palpitations prednisone (PREDNISONE) Adverse Reaction (Intermediate, Verified 07/31/25 11:31) HEART RACES Medication List - Last Reconciled 08/03/25 by Lionel Cintron MD albuterol sulfate 90 mcg/actuation 2 puffs inhalation Q4-6H PRN albuterol sulfate 2.5 mg inhalation TID PRN atorvastatin 40 mg PO DAILY blood sugar diagnostic (FreeStyle Lite Strips) As directed Test blood glucose 3x daily. blood-glucose meter (FreeStyle Lite Meter kit) As directed budesonide-formoterol 80-4.5 mcg/actuation (Symbicort) 2 puffs inhalation Q4-6H PRN buspirone 10 mg PO TID cholecalciferol (vitamin D3) 50 mcg PO DAILY 30 days clonazepam 0.5 mg PO DAILY PRN docusate sodium 100 mg PO BID PRN escitalopram oxalate 20 mg PO DAILY ibuprofen 600 mg PO Q6H PRN lancets (TRUEplus Lancets) 1 gauge miscellaneous QID 30 days lancets (FreeStyle Lancets) use daily as directed to check blood glucose meclizine (Dramamine Less Drowsy) 25 mg PO TID PRN metformin ER 500 mg PO QPM metoprolol succinate ER 12.5 mg (1/2 x 25 mg) PO DAILY 90 days pantoprazole 40 mg PO DAILY pen needle, diabetic (Novofine 32) USE ONCE DAILY DIRECTED pyridoxine (vitamin B6) 100 mg PO DAILY 90 days semaglutide (Ozempic) 0.5 mg (0.736 mL) subcut QWEEK sennosides (Senna Laxative) 17.2 mg PO DAILY PRN tramadol 50 mg PO Q8H PRN HPI Comments Details: Patient returns 1 week following excision of a skin lesion of the left breast performed on 07/18/2025. She tolerated the procedure well and denies any ongoing breast symptoms. Pathology revealed benign findings with no malignancy or atypia. She returns today for wound check. [facility], [facility] Medical History Cardiomyopathy T2DM (type 2 diabetes mellitus) Hypertrophic scar of upper arm Epidermal inclusion cyst Nephrolithiasis Transaminitis GERD (gastroesophageal reflux disease) Anxiety Migraines Fatty liver Elevated cholesterol Asthma Vitamin D deficiency HLD (hyperlipidemia) HTN (hypertension) Diabetes mellitus Surgical History History of surgical removal of skin lesion (08/27/22) H/O lithotripsy History of local excision of skin lesion History of hysterectomy (~2011) Family History Father Heart disease Mother No problems noted. Social History Are you a primary child care giver to a significant other at home: No Do you presently have visiting nurse or other home services: No Alcohol intake: never Comment: correct count Patient Tobacco Use Status: Never used Tobacco Second Hand Smoke Exposure: No Physical Exam Const General: comfortable Nutritional Appearance: well nourished Orientation/consciousness: patient oriented x3 Limitations: no limitations Chest Other: Incision in the left breast lower outer quadrant is clean, dry, and intact without redness or discharge. No palpable masses appreciated. Chest/axillae images:  1. Neuro General: patient oriented x3 Assessment & Plan Assessment & Plan (1) Left breast mass: Code(s): N63.20 - Unspecified lump in the left breast, unspecified quadrant Category: Medical Qualifiers: Breast mass location: lower outer quadrant Qualified Code(s): N63.23 - Unspecified lump in the left breast, lower outer quadrant Plan Patient returns following excision of a left breast skin lesion performed on 07/18/2025. She tolerated the procedure well and her wounds are healing nicely. There was no evidence of wound infection, hematoma or seroma. Pathology was benign. She should follow up as needed. Coding Level of Care Code Global (17267) Diagnoses Mass of lower outer quadrant of left breast N63.23 Breast mass location: lower outer quadrant
== END 2025-07-31 12:14 | disposition home or self-care (01) ==
LOC: HO.HGS 11:27
PROVIDERS: PCP Registered Nurse; Visit Provider Surgery
DX: N63.23 Unspecified lump in the left breast, lower outer quadrant (principal)
CPT/HCPCS: 99024

== ENCOUNTER 2025-08-09 10:42 | Emergency (ER) | payer MEDICAID, SELFPAY ==
--- OUTSIDE RECORDS SUMMARY | 2024-06-20 08:20 | XMS_ITS ---
Author Organization [facility] Address [address] [place] [address] Care Team Providers Care Marketing Data Specialist Name Role Phone Radha Rodriguez Primary Care Provider Jaylan Clancy [phone] REASON FOR VISIT FATTY LIVER Encounters Encounter Location Date Provider Diagnosis [facility] [address] [place] [address] 06/20/2024 Jaylan Neal Plan Of Treatment No Information Progress Notes * MADHU ABASDOB: 0 (44 yo F)Acc No.[id number]:06/20/2024 Progress Notes Patient: HARMAN MCKEON Provider: Geovani Neal MD :1980 A ge:43 Y S ex:Female Date:06/20/2024 Address:[address] [place], [place] [id number] Pcp:JACINTO Ramos Subjective: * Chief Complaints: * F ATTY LIVER Billing Information: * Procedure Codes: * The named appointment provid er may or may not be the originator of this progress note, and it is not deemed complete until electronically signed by the appointment provider. Sign off status: Pending * Provider: Geovani Neal MD Date: Generated for Ashlee perez/Lisa/eTodiliasmitting on: 10/10/2024 04:30 PM EST
--- NOTE | ~2025-08-09 | US_ITS ---
EXAMINATION: US RETROPERITONEAL LIMITED (RIGHT KIDNEY) CLINICAL INFORMATION: Right flank pain.. COMPARISON: Ultrasound abdomen May 30, 2024 TECHNIQUE: Real-time ultrasound of the right kidney using grayscale technique. FINDINGS: RIGHT KIDNEY: 12 x 4 x 5 cm (SAG x AP x TRV). Normal echotexture. Renal cortical thickness is normal. No hydronephrosis. No solid or cystic lesion. There is a 2 mm hyperechoic structure at the corticomedullary junction of the lower pole. US/US renal RT IMPRESSION: 2 mm nonobstructing calculus, right kidney.. Electronically signed by: Leo Marroquin MD 08/09/2025 11:59 AM EST
[2025-08-09 11:17] VITALS: BP 134/75; PULSE 84; RESP 18; TEMP 36.2; O2SAT 98; BMI 38.4
--- NOTE | 2025-08-09 11:17 | ED_ITS ---
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 No urinary symptoms. No fevers. She notes she takes tramadol and motrin that does not help her much. She is able to eat and drink. She is able to urinate. She notes this feels like her prior renal colic. She denies trauma. MD elicited complaint: flank pain Pertinent past history: kidney stones Onset (ago): day(s) (2) Pain Consistency: intermittent Location: R flank Severity: moderate Quality: stabbing and aching Radiation: RLQ Migration to: no migration Exacerbating factors: nothing Relieving factors: nothing Context: history of similar episodes Associated symptoms: denies other symptoms Treatments prior to arrival: other (tramadol) Related Data Home Medications ?Medication ?Instructions ?Recorded ?Confirmed albuterol sulfate 90 mcg/actuation 2 puff inhalation Q 4-6H PRN 10/01/20 08/03/25 aerosol inhaler Shortness Of Breath albuterol sulfate 2.5 mg/3 mL 2.5 mg inhalation TID RI N wheezing 04/15/21 08/03/25 (0.083 %) solution for nebulization buspirone 10 mg tablet 10 mg PO TID 04/15/21 docusate sodium 100 mg capsule 100 mg PO BID PRN Const ipation 04/15/21 08/03/25 pantoprazole 40 mg tablet,delayed 40 mg PO DAILY 04/1508/03/25 release sennosides 8.6 mg tablet (Senna 17.2 mg PO DAILY PRN c onstipation 04/15/21 08/03/25 Laxative) escitalopram oxalate 20 mg tablet 20 mg PO DAILY 12/1608/03/25 clonazepam 0.5 mg tablet 0.5 mg PO DAILY PRN anxiety 02/03/22 08/03/25 budesonide-formoterol HFA 80 2 puff inhalation Q4-6H P RN 02/21/25 08/03/25 mcg-4.5 mcg/actuation aerosol wheezing inhaler (Symbicort) Previous Rx's ?Medication ?Instructions ?Recorded tramadol 50 mg tablet 50 mg PO Q8H PRN pain (scale score 04/15/21 1-3) #14 tabs cholecalciferol (vitamin D3) 50 50 mcg PO DAILY 30 day s #30 caps 03/10/22 mcg (2,000 unit) capsule ibuprofen 600 mg tablet 600 mg PO Q6H PRN pain #30 t abs 07/13/22 pen needle, diabetic 32 gauge x #100 ea 11/23/2308/26 (Novofine 32) atorvastatin 40 mg tablet 40 mg PO DAILY #90 tabs 05/16 blood sugar diagnostic (FreeStyle #100 ea 08/09/24 Lite Strips) blood-glucose meter (FreeStyle #1 ea 08/09/24 Lite Meter kit) lancets 28 gauge (FreeStyle #100 ea 08/09/24 Lancets) metformin 500 mg tablet,extended 500 mg PO QPM #90 tab s 01/01/25 release 24 hr pyridoxine (vitamin B6) 100 mg 100 mg PO DAILY 90 days #90 tabs 03/12/25 tablet meclizine 25 mg tablet (Dramamine 25 mg PO TID PRN diz ziness #20 tabs 03/13/25 Less Drowsy) metoprolol succinate 25 mg 12.5 mg (1/2 x 25 mg) PO DA SOLIS 90 05/21/25 tablet,extended release 24 hr days #45 tabs semaglutide 0.25 mg or 0.5 mg (2 0.5 mg (0.736 mL) sub cut QWEEK #3 05/21/25 mg/3 mL) subcutaneous pen injector mL (Ozempic) lancets 33 gauge (TRUEplus Lancets) 1 gauge miscellane ous QID for 08/03/25 diabetes mellitus 30 days #100 ea cyclobenzaprine 10 mg tablet 10 mg PO TID PRN muscle s pasm #20 08/09/25 tabs ibuprofen 600 mg tablet 600 mg PO Q6H PRN pain #30 t abs 08/09/25 ondansetron 4 mg disintegrating 4 mg PO Q8H PRN nausea and 08/09/25 tablet vomiting #20 tabs Allergies Allergy/AdvReac Type Severity Reaction Status Date / Time pineapple Allergy Severe tongue Verified 08/09/25 11:19 swelling diphenhydramine (From Allergy Intermediate HALLUCINATI Verified 08/09/25 11:19 BENADRYL) ONS morphine (MORPHINE) Allergy Intermediate DIAPHORESIS; Verified 08/09/25 11:19 TACHYCARDIA, palpitations, sweating, tingling of hands and face quetiapine (From SEROQUEL) Allergy Intermediate PALPITATION Verified 08/09/25 11:19 S seafood Allergy Intermediate redness/itc Verified 08/09/25 11:19 akhil tomato Allergy Intermediate Blister Verified 08/09/25 11:19 trazodone (TRAZODONE) Allergy Intermediate GI Upset, Verified 08/09/25 11:19 HEART RACING, palpitations prednisone (PREDNISONE) AdvReac Intermediate HEART RACES Verified 08/09/25 11:19 Review of Systems Review of Systems Yes all other systems are reviewed and are negative [facility] Past Medical History Attestation statement: The following information was validated with the patient. Source: old records reviewed Medical History Cardiomyopathy T2DM (type 2 diabetes mellitus) Hypertrophic scar of upper arm Epidermal inclusion cyst Nephrolithiasis Transaminitis GERD (gastroesophageal reflux disease) Anxiety Migraines Fatty liver Elevated cholesterol Asthma Vitamin D deficiency HLD (hyperlipidemia) HTN (hypertension) Diabetes mellitus Surgical History History of surgical removal of skin lesion (08/27/22) H/O lithotripsy History of local excision of skin lesion History of hysterectomy (~2011) Family History Family History Father Heart disease Mother No problems noted. Social History Social History Are you a primary healthcare associate to a significant other at home: No Do you presently have visiting nurse or other home services: No Alcohol intake: never Comment: correct count Patient Tobacco Use Status: Never used Tobacco Second Hand Smoke Exposure: No Advance Directives: No Advance Directives Information Provided: Yes Physical Exam ED Vital Signs: Vital Signs - 24 hr 08/09/25 11:17 Temperature 97.1 F Pulse Rate 84 Respiratory Rate 18 Blood Pressure 134/75 Pulse Oximetry 98 Oxygen Delivery Method Room Air BMI result Body Mass Index 38.4 Appearance: Alert. Oriented X3. No acute distress. Eyes: Pupils equal, round and reactive to light. ENT: Pharynx normal. Neck: Normal inspection. Neck supple. CVS: Normal heart rate and rhythm. Pulses normal. Respiratory: No respiratory distress. Breath sounds normal. Abdomen: Soft and nontender. Skin: Skin warm and dry. Normal skin color. Extremities: No lower extremity edema. Neuro: Oriented X 3. No motor deficit. No sensory deficit. Course Course Course Narrative: This is an RME: Additional HPI, ROS, PE not included below will be deferred to primary provider. RME assessment and note performed by: Nichol Montemayor PA-C This is a [id number], with a hx of kidney stones, diabetes mellitus, hypertension, hyperlipidemia, cardiomegaly, GERD, anxiety, palpitations, who presents to the ER with complaints of right flank pain x 3 days. No urinary symptoms. No N/V/D. Plan: Labs, US, further ER eval needed Medical Decision Making Medical Decision Making MDM Narrative: 44-year-old female with past medical history of renal colic, hypertension, DM, hyperlipidemia, asthma, GERD, elevated liver function tests who presents with complaint of R flank pain atraumatic. At this time will need basic labs, UA, renal colic study. She has a benign abdominal exam. She has no fevers, no n/v/d. No urinary symptoms. She has benign abdominal exam. Differential Diagnosis Differential Diagnoses: The differential diagnosis associated with the presentation includes Pyelonephritis, UTI, renal colic, constipation Admission/Observation Consideration of admission/observation: Escalation of care including admission/observation considered Urine, ultrasound, labs are reassuring she had been managed with outpatient p.o. pain control Lab Data [facility] Lab Attestation statement: I reviewed the patient's lab results. Her alk-phos is lower than baseline 08/09/25 12:09 08/09/25 12:09 Labs: Lab Results 08/09/25 08/09/25 Range/Units 12:09 12:12 WBC 7.7 (4.8-10.8) X10*3/uL RBC 4.29 (4.20-5.50) X10*6/uL Hgb 10.6 L (12.0-16.0) g/dl Hct 34.1 L (37.0-47.0) % MCV 79.5 L (80.0-98.0) fL MCH 24.7 L (27.0-33.0) pg MCHC 31.1 (31.0-35.0) g/dl RDW 14.6 (11.0-16.0) % Plt Count 266 (160-400) X10*3/uL MPV 10.3 (9.4-12.3) fL Immature Gran % (Auto) 0.3 (0.0-0.4) % Neut % (Auto) 59.4 (45-73) % Lymph % (Auto) 32.0 (20-40) % [place] % (Auto) 6.3 (2-11) % Eos % (Auto) 1.7 (0-4) % Baso % (Auto) 0.3 (0-2) % Lymph # (Auto) 2.5 (1.2-4.9) X10*3/uL [place] # (Auto) 0.5 (0.1-1.2) X10*3/uL Eos # (Auto) 0.1 (0.0-0.4) X10*3/uL Baso # (Auto) 0.0 (0.0-0.2) X10*3/uL Abs Immat Gran (auto) 0.02 (0.00-0.03) X10*3/uL Absolute Neuts (auto) 4.6 (2.0-8.3) x10*3/uL Absolute Nucleated RBC 0.000 (0.0-0.012) X10*3/uL Nucleated RBC % (auto) 0.0 (0.0-0.2) /100WBC Sodium 143 (135-145) mmol/L Potassium 3.9 (3.3-5.1) mmol/L Chloride 110 H (96-108) mmol/L Carbon Dioxide 27 (22-29) mmol/L Anion Gap 10 L (12-20) BUN 11 (9-16) mg/dL Creatinine 0.68 (0.5-1.4) mg/dL Estim Creat Clear Calc 103.8 Estimated GFR > 60 Random Glucose 104 (60-115) mg/dL Calcium 9.0 (8.4-10.2) mg/dL Total Bilirubin 0.2 (0.0-1.0) mg/dL Direct Bilirubin < 0.2 (0.0-0.5) mg/dL AST 24 (5-31) U/L ALT 13 (0-31) U/L Alkaline Phosphatase 119 H (39-117) U/L Total Protein 7.1 (6.5-8.0) g/dL Albumin 4.2 (3.5-5.0) g/dL Lipase 42 (8-78) U/L Beta HCG, Quant 3 mIU/mL Urine Color Yellow Urine Appearance Cloudy Urine pH 8.0 (5.0-9.0) Ur Specific [place] 1.025 (1.005-1.025) Urine Protein Trace (Neg-Trace) mg/dL Urine Glucose (UA) Negative (Negative) mg/dL Urine Ketones Trace (Negative) mg/dL Urine Blood Negative (Negative) Urine Nitrite Negative (Negative) Ur Leukocyte Esterase Trace H (Negative) Urine RBC 0-2 (0-2) /HPF Urine WBC 0-5 (0-5) /HPF Ur Squamous Epith Cells 11-20 (0-2) /HPF Urine Bacteria 1+ (None Seen) Hyaline Casts 0-2 (0-2) /LPF Urine Yeast Present Independent Interpretation I performed an independent interpretation of an: Ultrasound (Nonobstructing right renal stone) Radiology Impression Discussion of test interpretation with radiology: I have reviewed the radiologist's reading. External Record Review External record reviewed: Outpatient record Prescription Management I considered prescription management with: Pain Medication and Other Discharge Plan Discharge Clinical Impression: Renal colic on right side Flank pain Qualifiers: Laterality: right Qualified Code(s): R10.A1 - Flank pain, right side Patient Disposition: Home, Self-Care Instructions: Kidney Stones (ED), Flank Pain (ED) Additional Instructions: Your labs, urine are normal there is no active signs of infection there is no blood noted in your urine Your ultrasound does show a small stone in the right kidney but is not blocking Please make sure you follow up with your primary care doctor or urologist Return for any worsening symptoms such as fevers, vomiting, unable to eat or drink, severe pain, or any other concerns Prescriptions: New cyclobenzaprine 10 mg tablet 10 mg PO TID PRN (Reason: muscle spasm) Qty: 20 0RF ibuprofen 600 mg tablet 600 mg PO Q6H PRN (Reason: pain) Qty: 30 0RF ondansetron 4 mg tablet,disintegrating 4 mg PO Q8H PRN (Reason: nausea and vomiting) Qty: 20 0RF No Action cholecalciferol (vitamin D3) 50 mcg (2,000 unit) capsule 50 mcg PO DAILY 30 Days Qty: 30 11RF (DME) pen needle, diabetic [Novofine 32] 32 gauge x 1/4 needle See Rx Instructions .ROUTE .COMPLEX Qty: 100 5RF Dose Instruction: USE ONCE DAILY DIRECTED Rx Instructions: USE ONCE DAILY DIRECTED atorvastatin 40 mg tablet 40 mg PO DAILY Qty: 90 1RF (DME) blood-glucose meter [FreeStyle Lite Meter] Kit See Rx Instructions .ROUTE .MEDSUPPLY Qty: 1 0RF Rx Instructions: As directed (DME) FreeStyle Lite Strips Strip See Rx Instructions .ROUTE .MEDSUPPLY Qty: 100 11RF Rx Instructions: As directed Test blood glucose 3x daily. (DME) lancets [FreeStyle Lancets] 28 gauge misc See Rx Instructions .ROUTE .MEDSUPPLY Qty: 100 3RF Rx Instructions: use daily as directed to check blood glucose pyridoxine (vitamin B6) 100 mg tablet 100 mg PO DAILY 90 Days Qty: 90 3RF lancets [TRUEplus Lancets] 33 gauge misc 1 gauge miscellaneous QID 30 Days Qty: 100 3RF albuterol sulfate 90 mcg/actuation Hfa Aerosol Inhaler 2 puff INHALATION Q4-6H PRN (Reason: Shortness Of Breath) ibuprofen 600 mg tablet 600 mg PO Q6H PRN (Reason: pain) Qty: 30 0RF budesonide-formoterol [Symbicort] 80-4.5 mcg/actuation HFA aerosol inhaler 2 puff INHALATION Q4-6H PRN (Reason: wheezing) meclizine [Dramamine Less Drowsy] 25 mg tablet 25 mg PO TID PRN (Reason: dizziness) Qty: 20 0RF pantoprazole 40 mg tablet,delayed release (DR/EC) 40 mg PO DAILY albuterol sulfate 2.5 mg /3 mL (0.083 %) solution for nebulization 2.5 mg inhalation TID PRN (Reason: wheezing) sennosides [Senna Laxative] 8.6 mg tablet 17.2 mg PO DAILY PRN (Reason: constipation) docusate sodium 100 mg capsule 100 mg PO BID PRN (Reason: Constipation) buspirone 10 mg tablet 10 mg PO TID tramadol 50 mg tablet 50 mg PO Q8H PRN (Reason: pain (scale score 1-3)) Qty: 14 0RF escitalopram oxalate 20 mg tablet 20 mg PO DAILY clonazepam 0.5 mg tablet 0.5 mg PO DAILY PRN (Reason: anxiety) metformin 500 mg tablet extended release 24 hr 500 mg PO QPM Qty: 90 3RF Ozempic 0.25 mg or 0.5 mg (2 mg/3 mL) pen injector 0.5 mg subcut QWEEK Qty: 3 3RF metoprolol succinate 25 mg tablet extended release 24 hr 12.5 mg PO DAILY 90 Days Qty: 45 2RF Print Language: Armenian
[2025-08-09 12:18] LABS: MANUAL DIFF FLAG NO
[2025-08-09 12:20] LABS: Hematocrit 34.1 % (37.0-47.0); Hemoglobin 10.6 g/dl (12.0-16.0); Imm Gran Abs Auto 0.02 X10*3/uL (0.00-0.03); Imm Gran Pct Auto 0.3 % (0.0-0.4); Lymphocytes Absolute Auto 2.5 X10*3/uL (1.2-4.9); Mean Corpuscular HGB Conc 31.1 g/dl (31.0-35.0); Mean Corpuscular Hemoglobin 24.7 pg (27.0-33.0); Mean Corpuscular Volume 79.5 fL (80.0-98.0); NRBC Abs Auto 0.000 X10*3/uL (0.0-0.012); NRBC Pct Auto 0.0 /100WBC (0.0-0.2); Platelet Count 266 X10*3/uL (160-400); Red Blood Count 4.29 X10*6/uL (4.20-5.50); White Blood Count 7.7 X10*3/uL (4.8-10.8)
[2025-08-09 12:21] LABS: Appearance Urine Cloudy; Glucose Urine UA Negative (Negative); PH 8.0 (5.0-9.0); Specific Gravity - Urine 1.025 (1.005-1.025); UMIC TRIGGER UACC YES
[2025-08-09 12:44] LABS: Alanine Aminotransferase 13 U/L (0-31); Albumin Level 4.2 g/dL (3.5-5.0); Alkaline Phosphatase 119 U/L (39-117); Anion Gap 10 (12-20); Aspartate Amino Transferase 24 U/L (5-31); Blood Urea Nitrogen 11 mg/dL (9-16); Calcium 9.0 mg/dL (8.4-10.2); Carbon Dioxide 27 mmol/L (22-29); Chloride 110 mmol/L (96-108); Creatinine Clr Calc Pharmacy 103.8; Estimated Glomerular Filt Rate > 60; Lipase 42 U/L (8-78); Potassium 3.9 mmol/L (3.3-5.1); Sodium 143 mmol/L (135-145); Total Protein 7.1 g/dL (6.5-8.0)
[2025-08-09 13:48] VITALS: BP 134/75; PULSE 84; RESP 18; TEMP 36.2; O2SAT 98
--- OUTSIDE RECORDS SUMMARY | 2025-08-09 16:30 | XMS_ITS | Encounter Summary ---
Author Organization [employer] Address [address] [place] [address] Care Team Providers Care Managing Broker Name Role Phone Colby Hirsch COOKY PACKER Unavailable Unavailable [facility] COOKY PACKER Primary Care Provider [phone] Encounter Details Date Type Department Care Team ([facility] Contact Info) Description 08/09/2025 Orders Only [facility] External Provider, [facility] Social History Tobacco Use Types Packs/Day Years [...] Care Team (Late st Contact Info) Description 10/04/2025 2:00 PM EST Office Visit [facility] [address] [place], [place] [phone] Glenn, Akila, OD [address] [place] [address] 10/22/2025 1:00 PM EST Clinical Support [facility] [address] [place] [address] Kira Bansal, MEREDITH documented as of this encounter Goals Goal [...] has chronic kidney disease No Yecenia Frias COOKY PACKER Patient has chronic kidney disease Care Plan Patient has chronic kidney disease No Marisol Griffiths documented as of this encounter Procedures Procedure Name Priority Date/Time Associated Diagnosis Comments URINALYSIS, COMPLETE, WITH REFLEX TO CULTURE Routine 08/09/2025 12:12 PM EST CBC WITH AUTO DIFFERENTIAL Routine 08/09/2025 12:09 PM EST HCG, TOTAL, QN Routine 08/09/2025 12:09 PM EST LIPASE Routine 08/09/2025 12:09 PM EST HEPATIC FUNCTION PANEL Routine 08/09/2025 12:09 PM EST BASIC METABOLIC PANEL Routine 08/09/2025 12:09 PM EST US RENAL RT Routine 08/09/2025 11:36 AM EST documented in this encounter Results * (ABNORMAL) Urinalysis, Complete, with Reflex to Culture (08/09/2025 12:12 PM EST) Color Urine Yellow [facility] Appearance Urine Cloudy [facility] PH 8.0 5.0 - 9.0 [facility] Glucose Urine UA Negative Negative mg/dL [facility] Urine Blood Negative Negative [facility] Specific [place] - Urine 1.025 1.005 - 1.025 [facility] Urine Protein Trace Neg-Trace mg/dL [facility] Urine Ketones Trace Negative mg/dL [facility] Nitrite Urine Negative Negative [facility] Leukocyte Esterase Urine Trace(A) Negative [facility] RBC Urine 0-2 0 - 2 /HPF [facility] Urine WBC 0-5 0 - 5 /HPF [facility] Urine Squamous Epithelial Cell 11-20 0 - 2 /HPF [facility] Urine Bacteria 1+ None Seen [facility] Hyaline Casts, Urine 0-2 0 - 2 /LPF [facility] Urine Yeast Present [facility] 08/09/2025 12:1 2 PM EST 08/09/2025 12:17 PM EST Narrative [facility] - 08/09/2025 12:31 PM EST [id number], Clean Catch us Generic External Data Provider LAB URINE ORDERAB LES Final Result Performing Organization Address City/[facility] Co de Phone Number [facility] [address] [place] [address] [phone] * hCG, Total, Quantitative (08/09/2025 12:09 PM EST) HCG Quantitative 3 mIU/mL [facility] Comment:Weeks post LMP Appro ximate hCG(Last Menstrual Period) Range (mIU/ml)3 - 4 weeks 9 - 1304 - 5 weeks 75 - 2,6005 - 6 weeks 850 - 20,8006 - 7 weeks 4000 - 100,2007 - 12 weeks 11,500 - 289,38937 - 16 weeks 18,300 - 137,57739 - 29 weeks (2nd trimester) 1,400 - 53,48713 - 41 weeks (3rd trimester) 940 - 60,000The Cerda B-hCG assay is used for the early detection ofpregnancy; it cannot be used to diagnose any conditionunrelated to . If a B-hCG level is not supportedby the clinical evidence, results should be confirmed by analternative method (qualitative urine hCG, for example). 08/09/2025 12:0 9 PM EST 08/09/2025 12:17 PM EST us Generic External Data Provider LAB BLOOD ORDERAB LES Final Result Performing Organization Address [facility] Co de Phone Number [facility] [address] [place] [phone] * Lipase (08/09/2025 12:09 PM EST) Lipase 42 8 - 78 U/L [facility] 08/09/2025 12:0 9 PM EST 08/09/2025 12:17 PM EST us Generic External Data Provider LAB BLOOD ORDERAB LES Final Result Performing Organization Address City/[facility]/ZIP Co de Phone Number [facility] [address] [place] [address] [phone] * (ABNORMAL) Basic Metabolic Panel (08/09/2025 12:09 PM EST) Sodium 143 135 - 145 mmol/L [facility] Potassium 3.9 3.3 - 5.1 mmol/L [facility] Chloride 110(H) 96 - 108 mmol/L [facility] Carbon Dioxide 27 22 - 29 mmol/L [facility] Anion Gap 10(L) 12 - 20 [facility] Urea Nitrogen (BUN) 11 9 - 16 mg/dL [facility] Creatinine, Serum 0.68 0.5 - 1.4 mg/dL [facility] Creatinine Clr Calc Pharmacy 103.8 [facility] Comment:Provided height and weight: 152.4 cm,89.1 kg.eGFR (calculated from the MDRD study equation) and eCrCl(calculated from the Cockcroft-Gault equation) are based ondifferent parameters and may not yield comparable results.If eCrCl result is absurd, please check patient'sheight/weight. Estimated Glomerular Filt Rate >60 [facility] Comment:Chronic Kidney Disea se: Estimated GFR < 60 mL/min/1.55a2Nnbyyu Kidney Disease: Estimated GFR < 15 mL/min/1.73m2 Glucose 104 60 - 115 mg/dL [facility] Calcium 9.0 8.4 - 10.2 mg/dL [facility] 08/09/2025 12:0 9 PM EST 08/09/2025 12:17 PM EST us Generic External Data Provider LAB BLOOD ORDERAB LES Final Result [facility] [address] [place] [address] [phone] * (ABNORMAL) Hepatic Function Panel (08/09/2025 12:09 PM EST) Bilirubin, Total 0.2 0.0 - 1.0 mg/dL [facility] Bilirubin, Direct <0.2 0.0 - 0.5 mg/dL [facility] Aspartate Amino Transferase 24 5 - 31 U/L [facility] Alanine Aminotransferase 13 0 - 31 U/L [facility] Total Protein 7.1 6.5 - 8.0 g/dL [facility] Albumin Level 4.2 3.5 - 5.0 g/dL [facility] Alkaline Phosphatase 119(H) 39 - 117 U/L [facility] 08/09/2025 12:0 9 PM EST 08/09/2025 12:17 PM EST us Generic External Data Provider LAB BLOOD ORDERAB LES Final Result [facility] [address] [place] [address] [phone] * (ABNORMAL) CBC auto differential (08/09/2025 12:09 PM EST) White Blood Count 7.7 4.8 - 10.8 X10*3/uL [facility] Red Blood Count 4.29 4.20 - 5.50 X10*6/uL [facility] Hemoglobin 10.6(L) 12.0 - 16.0 g/dl [facility] Hematocrit 34.1(L) 37.0 - 47.0 % [facility] Mean Corpuscular Volume 79.5(L) 80.0 - 98.0 fL [facility] Mean Corpuscular Hemoglobin 24.7(L) 27.0 - 33.0 pg [facility] Mean Corpuscular HGB Conc 31.1 31.0 - 35.0 g/dl [facility] Red Cell Distribution Width 14.6 11.0 - 16.0 % [facility] Platelet Count 266 160 - 400 X10*3/uL [facility] Mean Platelet Volume 10.3 9.4 - 12.3 fL [facility] Neutrophils Percent Auto 59.4 45 - 73 % [facility] Imm Gran Pct Auto 0.3 0.0 - 0.4 % [facility] Lymphocytes Percent Auto 32.0 20 - 40 % [facility] Monocytes Percent Auto 6.3 2 - 11 % [facility] Eosinophils Percent Auto 1.7 0 - 4 % [facility] Basophils Percent Auto 0.3 0 - 2 % [facility] NRBC Pct Auto 0.0 0.0 - 0.2 /100WBC [facility] Neutrophils Absolute Auto 4.6 2.0 - 8.3 x10*3/uL [facility] Imm Gran Abs Auto 0.02 0.00 - 0.03 X10*3/uL [facility] Lymphocytes Absolute Auto 2.5 1.2 - 4.9 X10*3/uL [facility] Monocytes Absolute Auto 0.5 0.1 - 1.2 X10*3/uL [facility] Eosinophils Absolute Auto 0.1 0.0 - 0.4 X10*3/uL [facility] Basophils Absolute Auto 0.0 0.0 - 0.2 X10*3/uL [facility] NRBC Abs Auto 0.000 0.0 - 0.012 X10*3/uL [facility] 08/09/2025 12:0 9 PM EST 08/09/2025 12:17 PM EST us Generic External Data Provider LAB BLOOD ORDERAB LES Final Result Performing Organization Address City/State/[facility] Co de Phone Number [facility] [address] [place] [phone] * US RENAL RT (08/09/2025 11:36 AM EST) Anatomical Region Laterality Modality Abdomen Ultrasound 08/09/2025 11:3 6 AM EST Narrative 08/09/2025 12:02 PM EST [address] [address] Ultrasound Report Signed Patient: Sacha Contreras MR#: [id number] : 1980 Acct:[id number] Age/Sex: 44 / F ADM Date: 08/09/25 Loc: HO.ED Attending Dr: Ordering Physician: Nichol Montemayor Date of Service: 08/09/25 Procedure(s): US renal RT Accession Number(s): [id number] cc: Nichol Montemayor; [facility] Reason for Exam: R flank pain, hx of kidney stones, EXAMINATION: US RETROPERITONEAL LIMITED (RIGHT KIDNEY) CLINICAL INFORMATION: Right flank pain.. COMPARISON: Ultrasound abdomen May 30, 2024 TECHNIQUE: Real-time ultrasound of the right kidney using grayscale technique. FINDINGS: RIGHT KIDNEY: 12 x 4 x 5 cm (SAG x AP x TRV). Normal echotexture. Renal cortical thickness is normal. No hydronephrosis. No solid or cystic lesion. There is a 2 mm hyperechoic structure at the corticomedullary junction of the lower pole. US/US renal RT IMPRESSION: 2 mm nonobstructing calculus, right kidney.. Electronically signed by: Leo Marroquin MD 08/09/2025 11:59 AM EST Dictated By: Leo Cottrell MD Signed By: <Electronically signed by Leo Ochoa MD in OV> 08/09/25 1159 DD/ 1136 TD/TT: 08/09/25 1140 Legal Administrative Secretary: Procedure Note Donotuseinterpreter, Image - 08/09/2025 [place] [id number] Ultrasound Report Signed Patient: Xavier ContrerasR#: [id number] : 1980Acct:[id number] Age/Sex: 44 / FADM Date: 08/09/25 Loc: .ED Attending Dr: Ordering Physician: Nichol Montemayor Date of Service: 08/09/25 Procedure(s): US renal RT Accession Number(s): [id number] cc: Nichol Montemayor; [facility] Reason for Exam: R flank pain, hx of kidney stones, EXAMINATION: US RETROPERITONEAL LIMITED (RIGHT KIDNEY) CLINICAL INFORMATION: Right flank pain.. COMPARISON: Ultrasound abdomen May 30, 2024 TECHNIQUE: Real-time ultrasound of the right kidney using grayscale technique. FINDINGS: RIGHT KIDNEY: 12 x 4 x 5 cm (SAG x AP x TRV). Normal echotexture. Renal cortical thickness is normal. No hydronephrosis. No solid or cystic lesion. There is a 2 mm hyperechoic structure at the corticomedullary junction of the lower pole. US/US renal RT IMPRESSION: 2 mm nonobstructing calculus, right kidney.. Electronically signed by: Leo Marroquin MD 08/09/2025 11:59 AM EST RP Dictated By: Leo Cottrell MD Signed By: <Electronically signed by Leo Ochoa MDin OV> 08/09/25 1159 DD/ 1136 TD/TT: 08/09/25 1140 Legal Administrative Secretary: [facility] External Provider IMG US PROCEDURES Final Result documented in this encounter Visit Diagnoses Not [...] 07/24/2025 Patient has chronic kidney disease 07/24/2025 Patient has chronic kidney disease 07/27/2025 Patient has chronic kidney disease 08/06/2025 Assessment Noted Time PHQ-9 Depression Total Score: 0 07/25/20 2:07 PM EST documented as of this encounter Care Teams Managing Broker Relationship Specialty Start Date End Date Yecenia Frias FNP [address] [place] [phone] PCP - General Family Medicine 04/26/24 Colby Hirsch FNP Nurse Practitioner Family Medicine 07/13/23 Candice Ugarte Door OpenerSap Consultant 5/6/24 documented as of this encounter
--- OUTSIDE RECORDS SUMMARY | 2025-08-09 16:30 | XMS_ITS | Encounter Summary ---
Author Organization [employer] Address [address] [facility] [address] [place] [address] Care Team Providers Care Consultants Intern Name Role Phone Marc Nicolas Primary Care Provider Unavail able Radha Shah Primary Care Provider [phone] Colby Hirsch Unavailable Unavailable [facility] JACINTO Primary Care Provider [phone] Reason for Visit * Reason Onset Date Comments Med Refill 04/09/2023 Encounter Details Date Type Department Care Team (Late st Contact Info) Description 04/09/2023 Refill [facility] [address] [place] [address] Marc Nicolas AGNP Mixed anxiety and depressive [...] listed in EHR, no record. Spoke with [facility] pharmacy, she is listed as Romaine Rodriguez [...] (KlonoPIN) 0.5 MG tablet Please sent to [facility] - [place], [place] - [address] [place] [address] documented in this encounter Plan of Treatment Upcoming Encounters Date Type Department Care Team (Late st Contact Info) Description 10/04/2025 2:00 PM EST Office Visit [facility] [address] [place] [address] Akila Elizabeth, OD [address] [place] [address] 10/22/2025 1:00 PM EST Clinical Support [facility] [address] [place] [address] Kira Bansal, RN documented as of this encounter Visit Diagnoses Diagnosis Mixed anxiety and depressive disorder Dysthymic disorder documented in this encounter Additional Health Concerns Assessment Noted Time PHQ-9 Depression Total Score: 0 04/02/20 2:10 PM EDT documented as of this encounter Care Teams Consultants Intern Relationship Specialty Start Date End Date Marc Nicolas AGNP PCP - General Family Medicine 10/22/22 04/20/23 Radha Shah FNP [address] [place] [address] PCP - General Family Medicine 04/21/23 04/25/24 Yecenia Frias FNP [address] [place] [address] PCP - General Family Medicine 04/26/24 Colby Hirsch FNP [address] [place] [address] Nurse Practitioner Family Medicine 07/13/23 Candice Ugarte Packer Dried BeefBlood Tester Fowl 12/27/23 documented as of this encounter
--- OUTSIDE RECORDS SUMMARY | 2025-08-09 16:30 | XMS_ITS | Encounter Summary ---
Author Organization [employer] Address [address] [facility] [address] [place] [address] Care Team Providers Care Physicist Astrophysics Name Role Phone Colby Hirsch ACTION INSTALLER Unavailable Unavailable [facility] Primary Care Provider [phone] Encounter Details Date Type Department Care Team ([facility] Contact Info) Description 07/27/2025 Results Follow-Up [facility] [address] [place], [place] [phone] [facility] [address] [place], [place] [phone] CBC auto differential, Ferritin, Iron And Total Iron Binding Capacity, Additional followed-up results: 2 Social History Tobacco Use Types Packs/Day Years [...] Description 10/04/2025 2:00 PM EST Office Visit [facility] [address] [place] [address] Glenn, Akila, OD [address] [place] [address] 10/22/2025 1:00 PM EST Clinical Support [facility] [address] [place] [address] Kira Bansal, MEREDITH Scheduled Orders Name Type Priority Associated Diagnoses Orde r Schedule Cologuard colon cancer screening Lab Routine Screening for colon cancer Ordered: 07/27/2025 documented as of this encounter Goals Goal [...] chronic kidney disease No Nichol Hou, MEREDITH Patient has chronic kidney disease Care Plan Patient has chronic kidney disease No Yecenia Frias FNP Patient has chronic kidney disease Care Plan Patient has chronic kidney disease No Suyapa Walton Patient has chronic kidney disease Care Plan Patient has chronic kidney disease No Kira Bansal, RN Patient has chronic kidney disease Care Plan Patient has chronic kidney disease No Yecenia Frias FNP Patient has chronic kidney disease Care Plan Patient has chronic kidney disease No Yecenia Frias FNP documented as of this encounter Procedures Procedure Name Priority Date/Time Associated Diagnosis Comments CBC WITH AUTO DIFFERENTIAL Routine 07/31/2025 12:03 PM EST Iron deficiency FERRITIN Routine 07/31/2025 12:03 PM EST Iron deficiency COMPREHENSIVE METABOLIC PANEL Routine 07/31/2025 12:03 PM EST Iron deficiency documented in this encounter Results * (ABNORMAL) Comprehensive Metabolic Panel (07/31/2025 12:03 PM EST) Sodium 143 135 - 145 mmol/L [facility] Potassium 3.8 3.3 - 5.1 mmol/L [facility] Chloride 109(H) 96 - 108 mmol/L [facility] Carbon Dioxide 28 22 - 29 mmol/L [facility] Anion Gap 10(L) 12 - 20 [facility] Urea Nitrogen (BUN) 10 9 - 16 mg/dL [facility] Creatinine, Serum 0.71 0.5 - 1.4 mg/dL [facility] Estimated Glomerular Filt Rate >60 [facility] Comment:Chronic Kidney Disea se: Estimated GFR < 60 mL/min/[id number] Kidney Disease: Estimated GFR < 15 mL/min/1.73m2 Glucose 110 60 - 115 mg/dL [facility] Calcium 9.2 8.4 - 10.2 mg/dL [facility] Bilirubin, Total 0.3 0.0 - 1.0 mg/dL [facility] Aspartate Amino Transferase 25 5 - 31 U/L [facility] Alanine Aminotransferase 16 0 - 31 U/L [facility] Total Protein 7.4 6.5 - 8.0 g/dL [facility] Albumin Level 4.4 3.5 - 5.0 g/dL [facility] Alkaline Phosphatase 137(H) 39 - 117 U/L [facility] Blood Venous blood specimen / Unknown 07/31/2025 12:03 PM EST 07/31/2025 12:03 PM EST [facility] LAB BLOOD ORDERABLES Final Re sult Performing Organization Address City/[facility]/ZIP Co de Phone Number [facility] [address] [place] [address] [phone] * Ferritin (07/31/2025 12:03 PM EST) Pathologist [facility] Ferritin 11 10 - 250 ng/mL [facility] Blood Venous blood specimen / Unknown 07/31/2025 12:03 PM EST 07/31/2025 12:03 PM EST [facility] LAB BLOOD ORDERABLES Final Re sult Performing Organization Address [facility] de Phone Number [facility] [address] [place] [address] [phone] * (ABNORMAL) CBC auto differential (07/31/2025 12:03 PM EST) [facility] White Blood Count 8.9 4.8 - 10.8 X10*3/uL [facility] Red Blood Count 4.13(L) 4.20 - 5.50 X10*6/uL [facility] Hemoglobin 10.3(L) 12.0 - 16.0 g/dl [facility] Hematocrit 33.6(L) 37.0 - 47.0 % [facility] Mean Corpuscular Volume 81.4 80.0 - 98.0 fL [facility] Mean Corpuscular Hemoglobin 24.9(L) 27.0 - 33.0 pg [facility] Mean Corpuscular HGB Conc 30.7(L) 31.0 - 35.0 g/dl [facility] Red Cell Distribution Width 14.4 11.0 - 16.0 % [facility] Platelet Count 265 160 - 400 X10*3/uL [facility] Mean Platelet Volume 10.4 9.4 - 12.3 fL [facility] Neutrophils Percent Auto 61.6 45 - 73 % [facility] Imm Gran Pct Auto 0.3 0.0 - 0.4 % [facility] Lymphocytes Percent Auto 30.3 20 - 40 % [facility] Monocytes Percent Auto 5.7 2 - 11 % [facility] Eosinophils Percent Auto 1.9 0 - 4 % [facility] Basophils Percent Auto 0.2 0 - 2 % [facility] NRBC Pct Auto 0.0 0.0 - 0.2 /100WBC [facility] Neutrophils Absolute Auto 5.5 2.0 - 8.3 x10*3/uL [facility] Imm Gran Abs Auto 0.03 0.00 - 0.03 X10*3/uL [facility] Lymphocytes Absolute Auto 2.7 1.2 - 4.9 X10*3/uL [facility] Monocytes Absolute Auto 0.5 0.1 - 1.2 X10*3/uL [facility] Eosinophils Absolute Auto 0.2 0.0 - 0.4 X10*3/uL [facility] Basophils Absolute Auto 0.0 0.0 - 0.2 X10*3/uL [facility] NRBC Abs Auto 0.000 0.0 - 0.012 X10*3/uL [facility] Blood Venous blood specimen / Unknown 07/31/2025 12:03 PM EST 07/31/2025 12:03 PM EST [facility] ACTION INSTALLER LAB BLOOD ORDERABLES Final Re sult [facility] [address] [place] [phone] documented in this encounter Visit Diagnoses Diagnosis Iron deficiency- Primary Disorders of iron metabolism Screening for colon cancer Special screening for malignant neoplasms, colon documented in this encounter Additional Health Concerns Active Problems Noted Date Diagnosed Date Help patients manage their type 2 diabetes 07/04 Patient has chronic kidney disease 07/04/2025 Patient has chronic kidney disease 07/04/2025 Patient has chronic kidney disease 07/06/2025 Patient has chronic kidney disease 07/09/2025 Patient has chronic kidney disease 07/24/2025 Patient has chronic kidney disease 07/24/2025 Patient has chronic kidney disease 07/27/2025 Assessment Noted Time PHQ-9 Depression Total Score: 0 07/25/20 25 2:07 PM EST documented as of this encounter Care Teams Physicist Astrophysics Relationship Specialty Start Date End Date Yecenia Frias FNP [address] [place] [phone] PCP - General Family Medicine 04/26/24 Colby Hirsch FNP Nurse Practitioner Family Medicine 07/13/23 Candice Ugarte Banking And Finance InstructorExternal Grinder Tool 12/27/23 documented as of this encounter
--- OUTSIDE RECORDS SUMMARY | 2025-08-09 16:30 | XMS_ITS | Encounter Summary ---
Author Organization [employer] Address [address] [facility] [address] [place] [address] Care Team Providers Care Textile Machine Operator Name Role Phone Marc Nicolas Primary Care Provider Unavail able Radha Shah TELEGRAPH EDITOR Primary Care Provider +[phone] Colby Hirsch Unavailable Unavailable Altagracia Yecenia TELEGRAPH EDITOR Primary Care Provider [phone] Reason for Visit * Reason Onset Date Comments Results 04/09/2023 Encounter Details Date Type Department Care Team ([facility] st Contact Info) Description 04/09/2023 Telephone [facility] MEDICINE [address] [place], [place] [phone] Marc Nicolas AGNP Results Social History Tobacco [...] AM EDT FYI T/C to pt. Through [employer] id - [id number] for below message. Pt. States she is having apt. With Dr. Sims on 05/03/2023 and wants to discuss on that day. Pt. Advised to give call back on [phone] if any questions or concerns. Pt. Verbally agreed and understood. Please review and advise if needed. * Telephone Encounter - Romeo Child - 04/09/2023 12:19 PM EDT Tc from pt requesting status on results for Liver that were done a moth ago pt states. Please contact pt at [phone] Kinyarwanda Speaker documented in this encounter Plan of Treatment Upcoming Encounters Date Type Department Care Team (Late st Contact Info) Description 10/04/2025 2:00 PM EST Office Visit [facility] OPTOMETRY [address] [place] [address] Akila Elizabeth, OD [address] [place] [address] 10/22/2025 1:00 PM EST Clinical Support [facility] MEDICINE [address] [place] [address] Kira Bansal RN documented as of this encounter Visit Diagnoses Not on filedocumented in this encounter Additional Health Concerns Assessment Noted Time PHQ-9 Depression Total Score: 0 04/02/20 23 2:10 PM EDT documented as of this encounter Care Teams Textile Machine Operator Relationship Specialty Start Date End Date Marc Nicolas AGNP PCP - General Family Medicine 10/22/22 04/20/23 Radha Shah FNP [address] [place] [address] PCP - General Family Medicine 04/21/23 04/25/24 Yecenia Frias FNP [address] [place] [address] PCP - General Family Medicine 04/26/24 Colby Hirsch FNP [address] [place] [address] Nurse Practitioner Family Medicine 07/13/23 Candice Ugarte Territory Account ManagerMovie Critic 12/27/23 documented as of this encounter
--- OUTSIDE RECORDS SUMMARY | 2025-08-09 16:30 | XMS_ITS | Encounter Summary ---
Author Organization [employer] Address [address] [facility] [address] [place] [address] Care Team Providers Care Flush Tester Name Role Phone Colby Hirsch CREDIT REPORT CHECKER Unavailable Unavailable [facility] Primary Care Provider [phone] Reason for Visit * Reason Onset Date Comments Med Refill 08/06/2025 Encounter Details Date Type Department Care Team ([facility] Contact Info) Description 08/06/2025 Refill [facility] [address] [place], [place] [phone] [facility] [address] [place] [address] Multiple joint pain Social History Tobacco Use [...] * Telephone Encounter - Marisol Obrien - 08/06/2025 8:23 AM EST TC from pt requesting medication refill. Medications needing refill : - traMADol (Ultram) 50 MG tablet To be sent to: - [facility] - [place], [place] - [address] [place] [address] documented in this encounter Plan of Treatment Upcoming Encounters Date Type Department Care Team (Late st Contact Info) Description 10/04/2025 2:00 PM EST Office Visit [facility] OPTOMETRY [address] [place] [address] Akila Elizabeth, OD [address] [place] [address] 10/22/2025 1:00 PM EST Clinical Support [facility] MEDICINE [address] [place] [address] Kira Bansal, RN documented as of this encounter Goals Goal [...] has chronic kidney disease No Yecenia Frias CREDIT REPORT CHECKER Patient has chronic kidney disease Care Plan Patient has chronic kidney disease No Marisol Griffiths documented as of this encounter Visit Diagnoses [...] documented as of this encounter Care Teams Flush Tester Relationship Specialty Start Date End Date Erie JACINTO Keene [address] [place] [id number] PCP - General Family Medicine 04/26/24 Colby Hirsch FNP Nurse Practitioner Family Medicine 07/13/23 Candice Ugarte Equipment Hire ManagerMammography Supervisor 12/27/23 documented as of this encounter
--- OUTSIDE RECORDS SUMMARY | 2025-08-09 16:30 | XMS_ITS | Encounter Summary ---
Author Organization [employer] Address [address] [facility] [address] [place] [address] Care Team Providers Care Cardiac Catheterization Technologist Name Role Phone Colby Hirsch REGULAR SENIOR CARE PROVIDER Unavailable Unavailable [facility] Primary Care Provider [phone] Reason for Visit * Reason Comments Med Refill Encounter Details Date Type Department Care Team ([facility] Contact Info) Description 08/03/2025 Refill [facility] MEDICINE [address] [place], [place] [phone] [facility] [address] [place], [place] [phone] Multiple joint pain Social History Tobacco Use [...] Description 10/04/2025 2:00 PM EST Office Visit [facility] OPTOMETRY [address] [place] [address] GlennAkila murphy, OD [address] [place] [address] 10/22/2025 1:00 PM EST Clinical Support [facility] MEDICINE [address] [place] [address] Kira Bansal, RN documented as of this [...] documented as of this encounter Care Teams Cardiac Catheterization Technologist Relationship Specialty Start Date End Date Yecenia Frias FNP [address] [place] [address] PCP - General Family Medicine 04/26/24 Colby Hirsch FNP Nurse Practitioner Family Medicine 07/13/23 Candice Ugarte Supervisor Home Restoration ServiceDiesel Motor Mechanic 12/27/23 documented as of this encounter
--- OUTSIDE RECORDS SUMMARY | 2025-08-09 16:30 | XMS_ITS | Clinical Summary ---
Author Organization [employer] Address [address] [facility] [address] [place] [address] Care Team Providers Care Mortgage Processor Name Role Phone Colby Hirsch TRADING SPECIALIST Unavailable Unavailable [facility] TRADING SPECIALIST Primary Care Provider [phone] Allergies Active Allergy Reactions Criticality Noted Date [...] complication, with long-term current use of insulin ([facility]) 1 each by Other route 2 [...] complication, with long-term current use of insulin ([facility]) 1 Device 2 times [...] capsule 3 2024 Active oxymetazoline (Afrin Nasal [place]) 0.05 % nasal sprayIndications :Viral upper respiratory illness Administer 2 sprays into each nostril every 12 (twelve) hours if needed for congestion for up to 2 days. Do not use for more than 3 days. 30 mL 2024 Active beta carotene (vitamin A) 3 MG (02115 UT) capsule TAKE 1 CAPSULE BY MOUTH [...] RINSE MOUTH AFTER USING. 10.2 g 11 08/03/20 25 12:21 PM EST 2024 Active acetaminophen (Tylenol 8 Hour) [...] hours if needed 9 tablet 2 07/25/20 1:37 PM EST 2024 Active Diclofenac Sodium 1 % gel APPLY TOPICALLY TO THE AFFECTED AREA(S) OF THE HAND EVERY DAY 100 g 1 2024 Active ibuprofen 800 MG tabletIndication s:Chronic left shoulder pain Take 1 tablet (800 mg) by mouth every 8 (eight) hours if needed for moderate pain. 30 tablet 1 08/08/20 11:02 AM EST 07/25 Active docusate sodium (Colace) 100 MG capsuleIndicatio ns:Chronic idiopathic constipation Take 1 capsule (100 mg) by mouth Once per day. 30 capsule 3 07/26/20 12:52 PM EST 2024 Active ferrous gluconate (Fergon) 324 (38 Fe) MG tabletIndication s:Iron deficiency Take 1 tablet (324 mg) by mouth with breakfast. 30 tablet 11 07/30/20 12:11 PM EST 07/27 Active traMADol (Ultram) 50 MG tabletIndication s:Multiple joint pain Take 1 tablet (50 mg) by mouth every 12 (twelve) hours if needed for severe pain for up to 28 days. Do not start before August 08, 2025. 56 tablet 08/08/20 11:02 AM EST 09/05 Active gabapentin (Neurontin) 300 MG capsule Take 1 capsule (300 mg) by mouth at bedtime. 30 capsule 3 07/25 Discontinued Diclofenac Sodium 1 % gel Apply once a day on the affected hand 100 g 1 07/13 Discontinued terconazole (Terazol 3) 80 MG vaginal suppositoryIndic ations:Audrey vaginitis Insert 1 suppository (80 mg) into the vagina at bedtime for 7 days. 7 suppository 07/05/20 1:35 PM EST 07/10 traMADol (Ultram) 50 MG tabletIndication s:Multiple joint pain Take 1 tablet (50 mg) by mouth every 12 (twelve) hours if needed for severe pain for up to 28 days. Do not start before July 11, 2025. 56 tablet 07/11/20 11:50 AM EST 08/06 Discontinued( Reorder (will not trigger notification to Pharmacy)) docusate sodium (Colace) 100 MG capsule Take [...] Sacha is currently on the waitlist for [facility]. She was informed to call next [...] symptoms 3. Behavioral Recommendations a. F/U with [facility] b. Reach out for support Ext. [phone] [...] mechanism to manage sxs, provided her with [facility] Crisis number for after hrs [...] skills discussed in session. She will contact [facility] crisis number as needed. Patient [...] >60 CM >60 CM Comment: NOTE: For -Panamanian individuals, multiply the result by 1.210.Chronic Kidney Disease: Estimated GFR < 60 mL/min/1.11u1Ddfnik Kidney Disease: Estimated GFR < 15 mL/min/1.73m2 [...] >60 CM >60 CM Comment: NOTE: For -Panamanian individuals, multiply the result by 1.210.Chronic Kidney Disease: Estimated GFR < 60 mL/min/1.11u2Wwgpzs Kidney Disease: Estimated GFR < 15 mL/min/1.73m2 [...] psychotic features with peripartum onset, unspecified trimester ([facility]) 01/21/2023 0 01/21/2023 Schizoaffective disorder, de pressive type ([facility]) 01/21/2023 02/27/2025 Overview (02/17/2023): Diagnostic evaluation [...] in person with a female clinician in [place]. At this time Sacha Rodriguez meets criteria [...] retiring patient is now referred to new [facility] psychiatric provider. Pt is aware that appts will be via televisit and that provider will not be an [facility] employee. She gives permission to share [...] night at bedtime (not prn). Based on CHAIR CAR ATTENDANT notes, she appears to be taking [...] Encounters Date Type Department Care Team Description 08/09/2025 Orders Only [facility] External Provider, [facility] 08/06/[address] [address] [place] [facility] Multiple joint pain 08/03/[address] [address] [place] [facility] Multiple joint pain 08/01/2025 2:00 PM EST Clinical Support [address] [address] Kira Bansal RN Long-term current use of opiate analgesic (Primary Dx) 08/01/2025 Travel 07/31/2025 Orders Only GENERIC EXTERNAL DATA DEPARTMENT Provider, Generic External Data 07/27/2025 Results Follow-Up [facility] [address] [place] [phone] [place]ec[place], [facility] CBC auto differential, Ferritin, Iron And Total Iron Binding Capacity, Additional followed-up results: 2 07/25/2025 2:00 PM EST Office Visit [address] [address] [place] Yec[place], [facility] Type 2 diabetes mellitus without complication, with long-term current use of insulin (HCC) (Primary Dx); Essential hypertension; Paresthesia of both feet; Chronic left shoulder pain; Musculoskeletal chest pain; Right upper quadrant pain; Chronic idiopathic constipation; Encounter for screening for malignant neoplasm of colon 07/25/2025 Travel 07/18/2025 Orders Only GENERIC EXTERNAL DATA DEPARTMENT Provider, Generic External Data 07/13/[address] [address] Cheryl Galan DO 07/09/2025 Refill [facility] [address] [facility] [place] [address] Yecenia Frias, TRADING SPECIALIST Multiple joint pain 07/09/2025 Refill [facility] [address] [place] [address] Yecenia Frias, TRADING SPECIALIST Multiple joint pain 07/06/2025 Results Follow-Up [facility]d [facility] [place] [address] Yecenia Frias, TRADING SPECIALIST Vitamin A 07/05/2025 Refill [facility] [place] [address] Yecenia Frias, TRADING SPECIALIST Multiple joint pain 07/04/2025 Telephone [facility] [place] [address] Katherine Patel FNP Lab Results 07/02/2025 2:00 PM EST Office Visit [facility] [place] [address] Katherine Patel FNP Vaginal discharge (Primary Dx); Audrey vaginitis; Acute cystitis without hematuria 07/02/2025 Travel 06/20/2025 Orders Only GENERIC EXTERNAL DATA DEPARTMENT Provider, Generic External Data 06/18/2025 Orders Only [facility] [place] [address] Yecenia Frias, TRADING SPECIALIST Vitamin A deficiency (Primary Dx) 06/17/2025 Refill [facility] [address] [place], [place] [address] [address] Yecenia Frias, TRADING SPECIALIST 06/13/2025 Travel 06/11/2025 Refill [facility] L[facility] [place] [address] Yecenia Frias, TRADING SPECIALIST Multiple joint pain 05/22/2025 12:00 PM EDT Office Visit [address] [address] Cheryl Galan DO Paresthesia of both feet (Primary Dx); Pain of both heels; Morning headache; Type 2 diabetes mellitus without complication, with long-term current use of insulin ([facility]); Pain of left thumb 05/22/2025 Travel 05/22/2025 Telephone [facility] MEDICINE [address] [place] [address] [place] [facility] Chart Prep 05/16/2025 Telephone [facility] MED[facility] [address] [place] [address] [place] [facility] telephone call 05/14/2025 Refill [facility] [address] [place] [address] [place] [facility] Multiple joint pain from Last 3 Months [...] Description 10/04/2025 2:00 PM EST Office Visit [facility] OPTOMETRY [address], [place] [phone] Akila Elizabeth, OD [address] [place] [address] 10/22/2025 1:00 PM EST Clinical Support [facility]IC[facility] [address] [place], [place] [phone] Kira Bansal, RN Health Maintenance Due Date [...] 10/23/2025 10/23/2024, 10/23/2024, 10/23/2024, Additional history exists Diabetes: Hemoglobin A1C 10/29/2025 025, 06/20/2025, 05/22/2025, Additional history exists Mammogram 11/15/2025 11/16/2023 SDOH Screening 01/12/2026 01/12/2025 Alcohol/Substance Use Screening 05/22/2026 05/22/2025 Disability Screening 05/22/2026 05/22/2025 Diabetes: Urine Protein Screening 06/20/2026 06/20/2025, 02/26/2025, 02/07/2024, Additional history exists Depression Screening 07/25/2026 07/25/2025, 07/25/20 25 Tobacco Screening 07/27/2026 07/27/2025 Eye Exam 09/14/2026 09/14/2024, 08/24, 09/14/2024, Additional [...] has chronic kidney disease No Marisol Griffiths Procedures Procedure Name Priority Date/Time Associated Diagnosis Comments URINALYSIS, COMPLETE, WITH REFLEX TO CULTURE Routine 08/09/2025 12:12 PM EST HCG, TOTAL, QN Routine 08/09/2025 12:09 PM EST LIPASE Routine 08/09/2025 12:09 PM EST BASIC METABOLIC PANEL Routine 08/09/2025 12:09 PM EST HEPATIC FUNCTION PANEL Routine 08/09/2025 12:09 PM EST CBC WITH AUTO DIFFERENTIAL Routine 08/09/2025 12:09 PM EST US RENAL RT Routine 08/09/2025 11:36 AM EST POCT CASSI-14 URINE DRUG SCREEN Routine 08/01/2025 2:08 PM EST Long-term current use of opiate analgesic HEMOGLOBIN A1C Routine 07/31/2025 12:03 PM EST COMPREHENSIVE METABOLIC PANEL Routine 07/31/2025 12:03 PM EST Iron deficiency FERRITIN Routine 07/31/2025 12:03 PM EST Iron deficiency CBC WITH AUTO DIFFERENTIAL Routine 07/31/2025 12:03 PM EST Iron deficiency ECG 12-LEAD Routine 07/27/2025 12:42 PM EST Musculoskeletal chest pain HEPATIC FUNCTION PANEL Routine 07/25/2025 2:50 PM [...] complication, with long-term current use of insulin ([facility]) POCT GLUCOSE Routine 05/22/2025 12:59 PM EDT Type 2 diabetes mellitus without complication, with long-term current use of insulin ([facility]) HIV 1/2 ANTIGEN/ANTIBODY, FOURTH GENERATION W/RFL Routine [...] Relevant to Health Maintenance Results * (ABNORMAL) Urinalysis, Complete, with Reflex to Culture (08/09/2025 12:12 PM EST) Color Urine Yellow [facility] Appearance Urine Cloudy [facility] PH 8.0 5.0 - 9.0 [facility] Glucose Urine UA Negative Negative mg/dL [facility] Urine Blood Negative Negative [facility] Specific [place] - Urine 1.025 1.005 - 1.025 [facility] Urine Protein Trace Neg-Trace mg/dL [facility] Urine Ketones Trace Negative mg/dL [facility] Nitrite Urine Negative Negative [facility] Leukocyte Esterase Urine Trace(A) Negative [facility] RBC Urine 0-2 0 - 2 /HPF [facility] Urine WBC 0-5 0 - 5 /HPF [facility] Urine Squamous Epithelial Cell 11-20 0 - 2 /HPF [facility] Urine Bacteria 1+ None Seen [facility] Hyaline Casts, Urine 0-2 0 - 2 /LPF [facility] Urine Yeast Present [facility] 08/09/2025 12:1 2 PM EST 08/09/2025 12:17 PM EST Narrative [facility] - 08/09/2025 12:31 PM EST [id number], Clean Catch us Generic External Data Provider LAB URINE ORDERAB LES Final Result [facility] [address] [place] [phone] * (ABNORMAL) CBC auto differential (08/09/2025 12:09 PM EST) Only the most recent of3 resultswithin the time period is included. White Blood Count 7.7 4.8 - 10.8 X10*3/uL [facility] Red Blood Count 4.29 4.20 - 5.50 X10*6/uL [facility] Hemoglobin 10.6(L) 12.0 - 16.0 g/dl [facility] Hematocrit 34.1(L) 37.0 - 47.0 % [facility] Mean Corpuscular Volume 79.5(L) 80.0 - 98.0 fL [facility] Mean Corpuscular Hemoglobin 24.7(L) 27.0 - 33.0 pg [facility] Mean Corpuscular HGB Conc 31.1 31.0 - 35.0 g/dl [facility] Red Cell Distribution Width 14.6 11.0 - 16.0 % [facility] Platelet Count 266 160 - 400 X10*3/uL [facility] Mean Platelet Volume 10.3 9.4 - 12.3 fL [facility] Neutrophils Percent Auto 59.4 45 - 73 % [facility] Imm Gran Pct Auto 0.3 0.0 - 0.4 % [facility] Lymphocytes Percent Auto 32.0 20 - 40 % [facility] Monocytes Percent Auto 6.3 2 - 11 % [facility] Eosinophils Percent Auto 1.7 0 - 4 % [facility] Basophils Percent Auto 0.3 0 - 2 % [facility] NRBC Pct Auto 0.0 0.0 - 0.2 /100WBC [facility] Neutrophils Absolute Auto 4.6 2.0 - 8.3 x10*3/uL [facility] Imm Gran Abs Auto 0.02 0.00 - 0.03 X10*3/uL [facility] Lymphocytes Absolute Auto 2.5 1.2 - 4.9 X10*3/uL [facility] Monocytes Absolute Auto 0.5 0.1 - 1.2 X10*3/uL [facility] Eosinophils Absolute Auto 0.1 0.0 - 0.4 X10*3/uL [facility] Basophils Absolute Auto 0.0 0.0 - 0.2 X10*3/uL [facility] NRBC Abs Auto 0.000 0.0 - 0.012 X10*3/uL [facility] 08/09/2025 12:0 9 PM EST 08/09/2025 12:17 PM EST us Generic External Data Provider LAB BLOOD ORDERAB LES Final Result Performing Organization Address City/State/[facility] Co de Phone Number [facility] [address] [place] [phone] * hCG, Total, Quantitative (08/09/2025 12:09 PM EST) HCG Quantitative 3 mIU/mL [facility] Comment:Weeks post LMP Appro ximate hCG(Last Menstrual Period) Range (mIU/ml)3 - 4 weeks 9 - 1304 - 5 weeks 75 - 2,6005 - 6 weeks 850 - 20,8006 - 7 weeks 4000 - 100,2007 - 12 weeks 11,500 - 289,76751 - 16 weeks 18,300 - 137,14824 - 29 weeks (2nd trimester) 1,400 - 53,20324 - 41 weeks (3rd trimester) 940 - 60,000The Cerda B- hCG assay is used for the early detection ofpregnancy; it cannot be used to diagnose any conditionunrelated to . If a B-hCG level is not supportedby the clinical evidence, results should be confirmed by analternative method (qualitative urine hCG, for example). 08/09/2025 12:0 9 PM EST 08/09/2025 12:17 PM EST us Generic External Data Provider LAB BLOOD ORDERAB LES Final Result Performing Organization Address City/[facility]/ZIP Co de Phone Number [facility] [address] [place] [phone] * Lipase (08/09/2025 12:09 PM EST) Lipase 42 8 - 78 U/L [facility] 08/09/2025 12:0 9 PM EST 08/09/2025 12:17 PM EST us Generic External Data Provider LAB BLOOD ORDERAB LES Final Result Performing Organization Address [facility] Co de Phone Number [facility] [address] [place] [phone] * (ABNORMAL) Hepatic Function Panel (08/09/2025 12:09 PM EST) Only the most recent of2 resultswithin the time period is included. Bilirubin, Total 0.2 0.0 - 1.0 mg/dL [facility] Bilirubin, Direct <0.2 0.0 - 0.5 mg/dL [facility] Aspartate Amino Transferase 24 5 - 31 U/L [facility] Alanine Aminotransferase 13 0 - 31 U/L [facility] Total Protein 7.1 6.5 - 8.0 g/dL [facility] Albumin Level 4.2 3.5 - 5.0 g/dL [facility] Alkaline Phosphatase 119(H) 39 - 117 U/L [facility] 08/09/2025 12:0 9 PM EST 08/09/2025 12:17 PM EST us Generic External Data Provider LAB BLOOD ORDERAB LES Final Result Performing Organization Address City/[facility]/ZIP Co de Phone Number [facility] [address] [place] [phone] * (ABNORMAL) Basic Metabolic Panel (08/09/2025 12:09 PM EST) Sodium 143 135 - 145 mmol/L [facility] Potassium 3.9 3.3 - 5.1 mmol/L [facility] Chloride 110(H) 96 - 108 mmol/L [facility] Carbon Dioxide 27 22 - 29 mmol/L [facility] Anion Gap 10(L) 12 - 20 [facility] Urea Nitrogen (BUN) 11 9 - 16 mg/dL [facility] Creatinine, Serum 0.68 0.5 - 1.4 mg/dL [facility] Creatinine Clr Calc Pharmacy 103.8 [facility] Comment:Provided height and weight: 152.4 cm,89.1 kg.eGFR (calculated from the MDRD study equation) and eCrCl(calculated from the Cockcroft-Gault equation) are based ondifferent parameters and may not yield comparable results.If eCrCl result is absurd, please check patient'sheight/weight. Estimated Glomerular Filt Rate >60 [facility] Comment:Chronic Kidney Disea se: Estimated GFR < 60 mL/min/1.29j9Hywciq Kidney Disease: Estimated GFR < 15 mL/min/1.73m2 Glucose 104 60 - 115 mg/dL [facility] Calcium 9.0 8.4 - 10.2 mg/dL [facility] 08/09/2025 12:0 9 PM EST 08/09/2025 12:17 PM EST us Generic External Data Provider LAB BLOOD ORDERAB LES Final Result [facility] [address] [place] [phone] * US RENAL RT (08/09/2025 11:36 AM EST) Anatomical Region Laterality Modality Abdomen Ultrasound 08/09/2025 11:3 6 AM EST Narrative 08/09/2025 12:02 PM EST [address] [address] Ultrasound Report Signed Patient: Sacha Contreras MR#: [id number] : 1980 Acct:[id number] Age/Sex: 44 / F ADM Date: 08/09/25 Loc: HO.ED Attending Dr: Ordering Physician: Nichol Montemayor Date of Service: 08/09/25 Procedure(s): US renal RT Accession Number(s): [id number] cc: Nichol Montemayor; [facility] Reason for Exam: R flank [...] 08/09/25 1159 DD/ 1136 TD/TT: 08/09/25 1140 Chocolate Finisher Operator: Procedure Note Donotuseinterpreter, Image - 08/09/2025 [place] [address] Ultrasound Report Signed Patient: Xavier ContrerasR#: [id number] : 1980Acct:[id number] Age/Sex: 44 / FADM Date: 08/09/25 Loc: .ED Attending Dr: Ordering Physician: Nichol Montemayor Date of Service: 08/09/25 Procedure(s): US renal RT Accession Number(s): [id number] cc: Nichol Montemayor; [facility] Reason for Exam: R flank [...] 08/09/25 1159 DD/ 1136 TD/TT: 08/09/25 1140 Chocolate Finisher Operator: [facility] External Provider IMG US PROCEDURES Final Result * POCT CASSI-14 Urine Drug Screen (08/01/2025 2:08 PM EST) THC Negative Negative Cocaine Screen, Urine Negative [...] obtained by clean catch procedure / Unknown 08/01/2025 2:08 PM EST Kira Alford RN - 08/01/2025 2:08 PM EST UTOX cup Lot#[id number] Exp. 07/23/26 Internal Pass Control [facility] POINT OF CARE TEST ENTER/EDIT ORDERABLES Final Result * Hemoglobin A1c (07/31/2025 12:03 PM EST) Only the most recent of2 resultswithin the time period is included. Hemoglobin A1c 6.0 <6.0 % [facility] Comment:Hemoglobin A1C Refer ence Range Adults: 4.8 - 6.0 % Non diabetic: < 6.0 % Goal: < 7.0 %Additional Action Suggested: > 8.0 %Note: Hemoglobin A1c results are invalid for patients with abnormal amounts of HbF. Blood transfusions may impact the HbA1c concentration in the patient sample. Estimated Average Glucose 126 mg/dL [facility] Comment:eAG = Estimated ave rage glucose which is %A1C expressed asaverage glucose, using the formula of the L7P-VhyemrcHawfugx Glucose study (ADAG), Diabetes Care, Vol.31,#8,2007 07/31/2025 12:0 3 PM EST 07/31/2025 12:03 PM EST Generic External Data Provider LAB BLOOD ORDERAB LES Final Result [facility] [address] [place] [phone] * Ferritin (07/31/2025 12:03 PM EST) Only the most recent of2 resultswithin the time period is included. Ferritin 11 10 - 250 ng/mL [facility] Blood Venous blood specimen / Unknown 07/31/2025 12:03 PM EST 07/31/2025 12:03 PM EST [facility] TRADING SPECIALIST LAB BLOOD ORDERABLES Final Re sult Performing Organization Address City/[facility]/ZIP Co de Phone Number [facility] [address] [place] [phone] * (ABNORMAL) Comprehensive Metabolic Panel (07/31/2025 12:03 PM EST) Only the most recent of2 resultswithin the time period is included. Sodium 143 135 - 145 mmol/L [facility] Potassium 3.8 3.3 - 5.1 mmol/L [facility] Chloride 109(H) 96 - 108 mmol/L [facility] Carbon Dioxide 28 22 - 29 mmol/L [facility] Anion Gap 10(L) 12 - 20 [facility] Urea Nitrogen (BUN) 10 9 - 16 mg/dL [facility] Creatinine, Serum 0.71 0.5 - 1.4 mg/dL [facility] Estimated Glomerular Filt Rate >60 [facility] Comment:Chronic Kidney Disea se: Estimated GFR < 60 mL/min/1.45t7Xucoot Kidney Disease: Estimated GFR < 15 mL/min/1.73m2 Glucose 110 60 - 115 mg/dL [facility] Calcium 9.2 8.4 - 10.2 mg/dL [facility] Bilirubin, Total 0.3 0.0 - 1.0 mg/dL [facility] Aspartate Amino Transferase 25 5 - 31 U/L [facility] Alanine Aminotransferase 16 0 - 31 U/L [facility] Total Protein 7.4 6.5 - 8.0 g/dL [facility] Albumin Level 4.4 3.5 - 5.0 g/dL [facility] Alkaline Phosphatase 137(H) 39 - 117 U/L [facility] Blood Venous blood specimen / Unknown 07/31/2025 12:03 PM EST 07/31/2025 12:03 PM EST [facility] LAB BLOOD ORDERABLES Final Re sult [facility] [address] [place] [phone] * ECG 12 lead (07/27/2025 12:42 PM EST) Narrative Yecenia Frias [facility] - 07/27/2025 12:42 PM EST NSR. See scanned report [facility] ECG ORDERABLES Final Result * Vitamin B12/Folate, Serum Panel (07/25/2025 2:50 PM EST) Vitamin B12 325 200 - 900 pg/mL [facility] Comment:NORMAL 200-900 PG/ML INDETERMINATE 160-199 PG/ML DEFICIENT < 160 PG/ML Folate 11.4 > or = 4.0 ng/mL [facility] Comment:Reference Values:> o r = 4.0 ng/mL< 4.0 ng/mL suggests folate deficiency Methotrexate, aminopterin and folinic acid(leucovorin) are chemotherapeutic agents whose molecularstructures are similar to folate; therefore, the Architectfolate assay cannot be used for patients using these drugs. Blood Venous blood specimen / Unknown 07/25/2025 2:50 PM EST 07/25/2025 4:02 PM EST [facility] LAB BLOOD ORDERABLES Final Re sult Performing Organization Address City/[facility]/ZIP Co de Phone Number [facility] [address] [place] [phone] * Iron And Total Iron Binding Capacity (07/25/2025 2:50 PM EST) Iron 53 30 - 160 mcg/dL [facility] Total Iron Binding Capacity 317 228 - 428 mcg/dL [facility] Percent Iron Saturation 17 15 - 50 % [facility] Unsaturated Iron Binding 264 ug/dL [facility] Blood Venous blood specimen / Unknown 07/25/2025 2:50 PM EST 07/25/2025 4:02 PM EST [facility] LAB BLOOD ORDERABLES Final Re sult Performing Organization Address City/[facility]/ZIP Co de Phone Number [facility] [address] [place] [phone] * Gross and Microscopic Level 4 (07/18/2025 1:13 PM EST) 07/18/2025 1:13 PM EST 07/18/2025 2:37 PM EST Akhil [facility] - 07/24/2025 8:32 AM EST ----- ------- Name: Sacha Contreras Age/Sex: 44/F : 1980 Unit#: [id number] Attend Dr: Lionel Cintron MD Re07/18/25 Status: [facility] Location: [facility] Disch: ----- ------- SPEC : [id number] RECD: 07/18/25 STATUS: LEELEE NAVA NUM: [id number] MT: 07/18/25-1313 [facility] DR: Lionel Cintron MD ENTERED: 07/18/25-1440 SP TYPE: Surgical OTHR DR: Cheryl Galan [...] A3 and 4 pieces in cassette A4. ([facility]) IHC S/NG Disclaimer NOTE: Unless otherwise stated, all tissue is formalin-fixed and paraffin-embedded. Some or all of the immunohistochemical tests reported herein may have been developed and their performance characteristics determined by [facility]. They have not been cleared or approved by the U.S. Food and Drug Administration (FDA). However, the FDA has determined that such clearance or approval is not necessary. This laboratory is certified under the Clinical Laboratory Improvement Amendments of 1988 (CLIA) as qualified to perform high complexity clinical laboratory testing. CONTINUED ON NEXT PAGE ----- ------- Name: Roach RodriguezSacha chanel Age/Sex: 44/F : 1980 Unit#: [id number] Attend Dr: Lionel Cintron MD Re07/18/25 Status: [facility] Location: [facility] Disch: ----- ------- SPEC : [id number] RECD: 07/18/25 STATUS: LEELEE NAVA NUM: [id number] MT: 07/18/[address]: Lionel Cintron MD ENTERED: 07/18/25 SP TYPE: Surgical OTHR DR: Cheryl Galan DO ORDERED: Gross Micro L4 Copies To: Cheryl Galan DO [facility] [address] [place] [address] Lionel Cintron MD [facility] General Surgeons [address] [place] [phone] ----- ------- Signed (signature on file) Raghav Merrill MD 07/24/25 0832 ----- ------- END OF REPORT us Generic External Data Provider LAB CYTOLOGY CANDIE BILLY Final Result [facility] [address] [place] [address] [phone] * Glucose, Whole Blood (07/18/2025 11:49 AM EST) Glucose, Whole Blood 96 60 - 115 mg/dL [facility] Comment:METER #: [id number] 07/18/2025 11:4 9 AM EST 07/18/2025 11:52 AM EST us Generic External Data Provider LAB BLOOD ORDERAB LES Final Result Performing Organization Address [facility] Co de Phone Number [facility] [address] [place] [phone] * (ABNORMAL) Bacterial Vaginosis Panel (07/02/2025 2:48 PM EST) TRICHOMONAS VAGINALIS DETECTION BY PCR NOT DETECTED Not Detect [facility] BACTERIAL VAGINOSIS DETECTION BY PCR NEGATIVE Negative [facility] Comment:The BV organism targ ets [...] GROUP DETECTION BY PCR DETECTED(A) Not Detect [facility] Audrey glab krusei PCR NOT DETECTED Not Detect [facility] Swab Vaginal structure / Unknown 07/02/2025 2:48 PM EST 07/02/2025 4:22 PM EST us Katherine CASEY LAB MICROBIOLOGY - GENERAL ORD ERABLES Final Result Performing Organization Address [facility] Co de Phone Number [facility] [address] [place] [phone] * Culture, Urine, Routine (07/02/2025 2:27 PM EST) Urine Urine specimen obtained by clean catch procedure / Unknown 07/02/2025 2:27 PM EST 07/02/2025 4:22 PM EST Comment:UACC Narrative [facility] - 07/04/2025 7:45 AM EST Escherichia coli Quant > 100,000 cfu/mL Escherichia coli: Ampicillin <=2(S) Escherichia coli: Cefazolin (Urine) <=1(S) Escherichia coli: Cefepime <=0.12(S) Escherichia coli: Ceftriaxone <=0.25(S) Escherichia coli: Ciprofloxacin <=0.06(S) Escherichia coli: Gentamicin <=1(S) Escherichia coli: Nitrofurantoin <=16(S) Escherichia coli: Trimethoprim/Sulfamethoxazole <=20(S) Specimen Source: Urine clean catch [facility] LAB MICROBIOLOGY - GENERAL ORD ERABLES Final Result [facility] [address] [place] [address] [phone] * (ABNORMAL) POCT urinalysis dipstick manually resulted (CPT 06333) (07/02/2025 2:23 PM EST) Color, UA Yellow [...] Urine (Urine, Random) 07/02/2025 2:23 PM EST [facility] POINT OF CARE TEST ENTER/EDIT ORDERABLES Final Result * Albumin, Random Urine W/Creatinine (06/20/2025 2:13 PM EDT) Creatinine, Urine 252.18 mg/dL [facility] Microalbumin Urine 33.0 mg/L [facility] Microalbum Creatinine Ratio Ur 13.0 <30 ug/mg cr [facility] Comment:Albumin/Creatinine R atio Reference Ranges: Normal: < 30 ug/mg creatinine Microalbuminuria: 30 - 300 ug/mg creatinineClinical Albuminuria: > 300 ug/mg creatinine 06/20/2025 2:13 PM EDT 06/20/2025 3:57 PM EDT Generic External Data Provider LAB URINE ORDERAB LES Final Result Performing Organization Address [facility] de Phone Number [facility] [address] [place] [address] [phone] * Vitamin A (06/20/2025 11:55 AM EDT) Vitamin A (Retinol) 43 38 - 98 mcg/dL [facility] Comment:Vitamin supplementat ion within 24 hours prior toblood draw may affect the accuracy of the results.This test was developed and its analytical performancecharacteristics have been determined by [employer] [place], [place]. It hasnot been cleared or approved by the U.S. Food and DrugAdministration. This assay has been validated pursuantto the CLIA regulations and is used for clinicalpurposes.THIS TEST WAS PERFORMED AT:[id number] [place] [address]IRFVZMOBLANK PICKARD MD,PHD Blood Venous blood specimen / Unknown 06/20/2025 11:55 AM EDT 06/20/2025 1:13 PM EDT [facility] TRADING SPECIALIST LAB BLOOD ORDERABLES Final Re sult Performing Organization Address [facility] Co de Phone Number [facility] [address] [place] [address] [phone] * XR Foot 3+ Views Right (05/22/2025 1:30 PM EDT) Anatomical Region Laterality Modality Lower Extremities, Foot Right Radiogra phic Imaging 05/22/2025 1:30 PM EDT Narrative 05/22/2025 1:43 PM EDT [facility] [address] [place] [address] XRay Report Signed Patient: Sacha Contreras MR#: [id number] : 1980 Acct:[id number] Age/Sex: 44 / F ADM Date: 05/22/25 Loc: [facility] Attending Dr: Cheryl Galan DO Ordering Physician: Cheryl Galan DO Date of Service: 05/22/25 Procedure(s): XR foot RT min 3V Accession Number(s): [id number] cc: Cheryl Galan DO Reason for Exam: [...] 05/22/25 1341 DD/ 1330 TD/TT: 05/22/25 1334 Chocolate Finisher Operator: Procedure Note Donotuseinterpreter, Image - 05/22/[address] [address] XRay Report Signed Patient: Unique ContrerassMR#: [id number] : 1980Acct:[id number] Age/Sex: 44 / FADM Date: 05/22/25 Loc: [facility] Attending Dr: Cheryl Galan DO Ordering Physician: Cheryl Galan DO Date of Service: 05/22/25 Procedure(s): XR foot RT min 3V Accession Number(s): [id number] cc: Jurcsak,Cheryl A DO Reason for Exam: b/l heel pain [...] 05/22/25 1341 DD/ 1330 TD/TT: 05/22/25 1334 Chocolate Finisher Operator: Cheryl Galan DO IMG XR PROCEDURES Final Resu lt * XR Foot 3+ Views Left (05/22/2025 1:30 PM EDT) Anatomical Region Laterality Modality Lower Extremities, Foot Left Radiogra phic Imaging 05/22/2025 1:30 PM EDT Narrative 05/22/2025 1:42 PM EDT [address] [address] XRay Report Signed Patient: Sacha Contreras MR#: [id number] : 1980 Acct:[id number] Age/Sex: 44 / F ADM Date: 05/22/25 Loc: HO.HHCX Attending Dr: Cheryl Galan DO Ordering Physician: Cheryl Galan DO Date of Service: 05/22/25 Procedure(s): XR foot LT min 3V Accession Number(s): [id number] cc: Cheryl Galan DO Reason for Exam: [...] 05/22/25 1340 DD/ 1330 TD/TT: 05/22/25 1334 Chocolate Finisher Operator: Procedure Note Donotuseinterpreter, Image - 05/22/[address] [address] XRay Report Signed Patient: Lai Contreras#: [id number] : 1980Acct:[id number] Age/Sex: 44 / FADM Date: 05/22/25 Loc: HO.HHCX Attending Dr: Cheryl Galan DO Ordering Physician: Cheryl Galan DO Date of Service: 05/22/25 Procedure(s): XR foot LT min 3V Accession Number(s): [id number] cc: Cheryl Galan DO Reason for Exam: [...] 05/22/25 1340 DD/ 1330 TD/TT: 05/22/25 1334 Chocolate Finisher Operator: us Cheryl Galan DO IMG XR PROCEDURES Final Resu lt * (ABNORMAL) POCT Hgb A1c (05/22/2025 1:01 PM EDT) [facility] Hemoglobin A1C 6.1(A) 4.0 - 5.7 % QC Media Lot # [id number] Lot# Expiration Date Blood 05/22/2025 1:01 PM EDT Cheryl Adama DO POINT OF CARE TEST ENTER/SANCHO T ORDERABLES Final Result * POCT Glucose (05/22/2025 12:59 PM EDT) [facility] Glucose Blood, POC 107 60 - 200 mg/dL QC Media Lot # [id number] Lot# Expiration Date Blood Capillary blood specimen / Unknown 05/22/2025 12:59 PM EDT Cheryl Adama DO POINT OF CARE TEST ENTER/SANCHO T ORDERABLES Final Result * HIV-1/2 Antigen and Antibodies, Fourth Generation, with Reflexes (10/23/2024 2:05 PM EST) [facility] HIV AB/AG Nonreactive Nonreactive [facility] Comment:HIV-1 p24 Ag and/or HIV-1/HIV-2 Ab not detected.A test result that is nonreactive does not exclude thepossibility of exposure to or infection with HIV-1 and/orHIV-2. Nonreactive results in this assay for individualswith prior exposure to HIV-1 and/or HIV-2 may be due toantigen and antibody levels that are below the limit ofdetection of this assay.The IntroFly HIV Ag/Ab Combo assay result andsupplemental assay results should be interpreted inconjunction with the patient's clinical presentation,history and other laboratory results. If the results areinconsistent with clinical evidence, additional testing issuggested to confirm the result. Blood Venous blood specimen / Unknown 10/23/2024 2:05 PM EST 10/23/2024 4:20 PM EST [facility] TRADING SPECIALIST LAB BLOOD ORDERABLES Final Re sult [facility] [address] [place] [address] [phone] * (ABNORMAL) Lipid Panel, Standard (09/25/2024 1:22 PM EST) Triglycerides 109 <150 mg/dL [facility] Comment:Desirable Triglyceri de: less than 150 mg/dLBorderline High Triglyceride 150-199 mg/dLHigh Triglyceride: 200-499 mg/dLVery High Triglyceride: greater than or equal to 5OO mg/dL Cholesterol 128 <200 mg/dL [facility] Comment:Desirable Cholestero l: less than 200 mg/dLBorderline High Cholesterol: 200-239 mg/dLHigh Cholesterol: greater than 239 mg/dL LDL Cholesterol Calculated 71 <100 mg/dL [facility] Comment:Desirable LDL: less than 100 mg/dLNear Optimal/Above Optimal LDL: 110- 129 mg/dLBorderline High LDL: 130-159 mg/dLHigh LDL: 160-189 mg/dLVery High LDL: greater than or equal to 190 mg/dL HDL Cholesterol 36(L) >40 mg/dL [facility] Comment:Desirable HDL: great er than 40 mg/dL Note: This HDL assay may give artificially low results in patients with liver disease. 09/25/2024 1:22 PM EST 09/25/2024 4:00 PM EST Generic External Data Provider LAB BLOOD ORDERAB LES Final Result [facility] [address] [place] [address] [phone] * BI Mammogram Screening Tomosynthesis Bilateral (11/16/2023 1:25 PM EDT) Anatomical Region Laterality Modality Breast Bilateral Mammography 11/16/2023 1:25 PM EDT Narrative 12/02/2023 6:15 AM EDT [address] [place] [address] Mammography Report Signed Patient: Sacha Contreras MR#: [id number] : 1980 Acct:[id number] Age/Sex: 42 / F ADM Date: 11/16/23 Loc: HO.MAMMO Attending Dr: Radha Shah NP Ordering Physician: Radha Shah NP Results: 1Negativ e Date of Service: 11/16/23 Follow Up: 1 Year From Orig inal Mammogram Procedure(s): MM tomosynthesis screening BI Accession Number(s): [id number] cc: Radha Shah NP EXAMINATION: MM SCREENING [...] in OV> 12/02/23 0611 DD/ 1325 TD/TT: Chocolate Finisher Operator: Procedure Note Donotuseinterpreter, Image - 12/02/[address] [place] [address] Mammography Report Signed Patient: Unique ContrerassMR#: [id number] : 1980Acct:[id number] Age/Sex: 42 / FADM Date: 11/16/23 Loc: HO.MAMMO Attending Dr: Radha Shah DIRECTOR OF STRATEGY & MOBILE Ordering Physician: Radha Shah NPResults: 1Negativ e Date of Service: 11/16/23Follow Up: 1 Year From Orig ina Mammogram Procedure(s): MM tomosynthesis screening BI Accession Number(s): [id number] cc: Radha Shah DIRECTOR OF STRATEGY & MOBILE EXAMINATION: MM SCREENING DIGITAL BREAST TOMOSYNTHESIS, BILATERAL [...] in OV> 12/02/23 0611 DD/ 1325 TD/TT: Chocolate Finisher Operator: Radha Shah [facility] BI PROCEDURES Final Result * (ABNORMAL) Hepatitis Panel, General (02/22/2023 1:46 PM EDT) Hepatitis A Antibody Total REACTIVE( A) NON-REACT TAWNYA [employer] Comment: For additional information, please refer to http://education.[employer]/faq/HXO216 (This link is being provided for informational/ educational purposes only.) Hepatitis B Surface Antibody QL REACTIVE( A) NON-REACT TAWNYAUberseq Hepatitis B Surface Ag NON-REACT TAWNYA NON-REACT TAWNYA [employer] Zhima Techt Comment: For additional information, please refer to http://[employer]/faq/GQH477 (This link is being provided for informational/ educational purposes only.) Hepatitis B Core Antibody Total NON-REACT TAWNYA NON-REACT TAWNYA [employer] Zhima Techt Comment: For additional information, please refer to http://[employer]/faq/DZM509 (This link is being provided for informational/ educational purposes only.) Hepatitis C Antibody NON-REACT TAWNYA NON-REACT TAWNYA [employer] [place] [facility] Comment: HCV antibody was non-reactive. There is no laboratory evidence of HCV infection. In most cases, no further action is required. However, if recent HCV exposure is suspected, a test for HCV RNA (test code 11717) is suggested. For additional information please refer to http://[employer]/faq/IRV17o9 (This link is being provided for informational/ educational purposes only.) 02/22/2023 1:46 PM EDT 02/22/2023 1:46 PM EDT Narrative [facility] - 02/26/2023 7:51 PM EDT FASTING:NO FASTING: NO [facility] BLOOD ORDERABLES Final Res ult [facility] [address], [place] [address] [employer] [address] [place] [address] from Last 3 Months or Most Recently [...] 07/27/2025 Patient has chronic kidney disease 08/06/2025 Insurance [facility] C[facility] DENTAL-[facility] MEDICAID STAND ADULT Care Teams Mortgage Processor Relationship Specialty Start Date End Date Yecenia Frias FNP [address] [place] [phone] PCP - General Family Medicine 04/26/24 Colby Hirsch FNP Nurse Practitioner Family Medicine 07/13/23 Candice Ugarte Medical Records ManagerChip Mixer 12/27/23
--- OUTSIDE RECORDS SUMMARY | 2025-08-09 16:30 | XMS_ITS | Encounter Summary ---
Author Organization [employer] Address [address] [facility] [address]t [place] [address] Care Team Providers Care Dress Fitter Name Role Phone Marc Nicolas Primary Care Provider Unavail able Radha Shah METALS SALES REPRESENTATIVE Primary Care Provider +[phone] Colby Hirsch Unavailable Unavailable [facility] METALS SALES REPRESENTATIVE Primary Care Provider [phone] Reason for Visit * Reason Onset Date Comments Referral 01/26/2023 Encounter Details Date Type Department Care Team (Late st Contact Info) Description 01/26/2023 Telephone [facility] [address] [place], [place] [phone] Marc Nicolas AGNP Referral Social History Tobacco [...] Description 10/04/2025 2:00 PM EST Office Visit [facility] [address] [place], [place] [phone] Akila Elizabeth, OD [address] [place] [address] 10/22/2025 1:00 PM EST Clinical Support [facility] [address] [place] [address] Kira Bansal, MEREDITH documented as of this encounter Visit Diagnoses Not on filedocumented in this encounter Additional Health Concerns Assessment Noted Time PHQ-9 Depression Total Score: 19 023 3:57 PM EDT documented as of this encounter Care Teams Dress Fitter Relationship Specialty Start Date End Date Marc Nicolas AGNP PCP - General Family Medicine 10/22/22 04/20/23 Radha Shah FNP [address] [place] [address] PCP - General Family Medicine 04/21/23 04/25/24 AlvordYecenia FNP [address] [place] [address] PCP - General Family Medicine 04/26/24 Colby Hirsch FNP [address] [place] [address] Nurse Practitioner Family Medicine 07/13/23 Candice Ugarte Fire Alarm RepairerPortable Track Crew Chief 12/27/23 documented as of this encounter
--- OUTSIDE RECORDS SUMMARY | 2025-08-09 16:30 | XMS_ITS | Encounter Summary ---
Author Organization [employer] Address [address] 7[address] [place] [address] Care Team Providers Care Rougher Machine Operator Name Role Phone Radha Shah Primary Care Provider [phone] Colby Hirsch MEDICAL CLAIMS ANALYST Unavailable Unavailable [facility] MEDICAL CLAIMS ANALYST Primary Care Provider [phone] Encounter Details Date Type Department Care Team (Late st Contact Info) Description 04/24/2024 Orders Only [facility] [address] [place], [place] [phone] Radha Shah FNP [address] [place] [address] Elevated lipids (Primary Dx) Social History Tobacco [...] [facility] [address] [place] [address] Glenn, Akila, OD [address] [place], [place] [phone] 10/22/2025 1:00 PM EST Clinical Support [facility] [address] [place], [place] [phone] Kira Bansal RN documented as of this encounter Procedures Procedure Name Priority Date/Time Associated Diagnosis Comments LIPID PANEL, STANDARD Routine 05/12/2024 11:00 AM EDT Elevated lipids documented in this encounter Results * (ABNORMAL) Lipid Panel, Standard (05/12/2024 11:00 AM EDT) Triglycerides 100 <150 mg/dL [facility] Comment:Desirable Triglyceri de: less than 150 mg/dLBorderline High Triglyceride 150-199 mg/dLHigh Triglyceride: 200-499 mg/dLVery High Triglyceride: greater than or equal to 5OO mg/dL Cholesterol 101 <200 mg/dL [facility] Comment:Desirable Cholestero l: less than 200 mg/dLBorderline High Cholesterol: 200-239 mg/dLHigh Cholesterol: greater than 239 mg/dL LDL Cholesterol Calculated 44 <100 mg/dL [facility] Comment:Desirable LDL: less than 100 mg/dLNear Optimal/Above Optimal LDL: 110- 129 mg/dLBorderline High LDL: 130-159 mg/dLHigh LDL: 160-189 mg/dLVery High LDL: greater than or equal to 190 mg/dL HDL Cholesterol 37(L) >40 mg/dL [facility] Comment:Desirable HDL: great er than 40 mg/dL Note: This HDL assay may give artificially low results in patients with liver disease. Blood Venous blood specimen / Unknown 05/12/2024 11:00 AM EDT 05/12/2024 11:00 AM EDT Radha CASEY LAB BLOOD ORDERABLES Final Resu lt [facility] [address] [place] [address] [phone] documented in this encounter Visit Diagnoses Diagnosis Elevated lipids- Primary documented in this encounter Additional Health Concerns Assessment Noted Time PHQ-9 Depression Total Score: 7 03/07/20 24 10:13 AM EDT documented as of this encounter Care Teams Rougher Machine Operator Relationship Specialty Start Date End Date Radha Shah FNP [address] [place] [address] PCP - General Family Medicine 04/21/23 04/25/24 TulsaYecenia FNP [address] [place] [address] PCP - General Family Medicine 04/26/24 Colyb Hirsch FNP [address] [place] [phone] Nurse Practitioner Family Medicine 07/13/23 Candice Ugarte Floor Installation MechanicDental Nurse 12/27/23 documented as of this encounter
--- OUTSIDE RECORDS SUMMARY | 2025-08-09 16:30 | XMS_ITS | Patient Health Record ---
Author Organization [facility] Address [address] [place] [address] Care Team Providers Care Category Director Name Role Phone Radha Rodriguez Primary Care Provider Jaylan Clancy Unavailable [phone] Allergies Allergen (clinical drug ingredient) Drug/Non Drug [...] DAILY Oral; Duration: 30 Active Vitamin A 50288 UNIT Capsule TAKE 1 CAPSULE BY MOUTH [...] W/U Status Risk Notes Problem Epigastric pain (79795823) Epigastric abdominal pain (R10.13) Active confirmed Problem Irritable bowel syndrome with diarrhea (167078937) Irritable bowel syndrome with diarrhea (K58.0) Active confirmed Problem Elevated liver enzymes level (228495822) Elevated liver function tests (R79.89) Active confirmed Problem Fatty liver (279457328) Fatty liver (K76.0) Active confirmed Problem Gastroesophageal reflux disease (094129559) Gastroesophageal reflux disease, esophagitis presence not specified (K21.9) Active confirmed Problem Right upper quadrant pain (481294006) Abdominal pain, right upper quadrant (R10.11) Active confirmed Plan Of Treatment Pending Test Test Name Order Date BUN 12/29/2019 CREATININE 12/29/2019 LIVER PROFILE 02/04/2020 LIVER PROFILE 04/09/2020 LIVER PROFILE 12/29/2019 CBC w DIFF 12/29/2019 PROTHROMBIN TIME (PT, INR) 12/29/2019 [id number] (A1A) 12/29/2019 CAROTENE 12/29/2019 CERULOPLASMIN 12/29/2019 MITOCHONDRIAL [...] Start Date Coverage End Date MEDICAID OF [facility] [address] [place]EL[place] CRUZ [id number] HARMAN LEUNG Self - patient is the insured Medical (General) History Medical History History ICD Code Asthma Denies [place],CVA,renal disease Migraines Anxiety, depression, bipolar disease NIDDM [...]
--- OUTSIDE RECORDS SUMMARY | 2025-08-09 16:30 | XMS_ITS | Encounter Summary ---
Author Organization [employer] Address [address] [facility] [address] [place] [address] Care Team Providers Care Radar Tester Name Role Phone Radha Shah Primary Care Provider [phone] Colby Hirsch Unavailable Unavailable [facility] Primary Care Provider [phone] Reason for Visit * Reason Comments Med Refill Encounter Details Date Type Department Care Team ([facility] st Contact Info) Description 04/12/2024 Refill [facility] [address] [place], [place] [phone] Radha Shah FNP [address] [place], [place] [phone] Multiple joint pain Social History Tobacco Use [...] Score 14 04/13/2024 1:28 PM EDT Kira Bansal, MEREDITH documented as of this encounter Plan of Treatment Upcoming Encounters Date Type Department Care Team (Late st Contact Info) Description 10/04/2025 2:00 PM EST Office Visit [facility] [address] [place] [phone] Akila Elizabeth, OD [address] [place] [address] 10/22/2025 1:00 PM EST Clinical Support [facility] [address] [place] [address] Kira Bansal, RN documented as of this encounter Visit Diagnoses Diagnosis Multiple joint pain Pain in joint, multiple sites documented in this encounter Additional Health Concerns Assessment Noted Time PHQ-9 Depression Total Score: 7 03/07/20 24 10:13 AM EDT documented as of this encounter Care Teams Radar Tester Relationship Specialty Start Date End Date Radha Shah FNP [address] [place] [address] PCP - General Family Medicine 04/21/23 04/25/24 Yecenia Frias FNP [address] [place] [address] PCP - General Family Medicine 04/26/24 Colby Hirsch FNP [address] [place] [address] Nurse Practitioner Family Medicine 07/13/23 Candice Ugarte Case Management RnPlatform Man 12/27/23 documented as of this encounter
--- OUTSIDE RECORDS SUMMARY | 2025-08-09 16:30 | XMS_ITS | Encounter Summary ---
Author Organization [employer] Address 75 [facility] 7t [place] [address] Care Team Providers Care Director Of Audiology Name Role Phone Marc Nicolas Primary Care Provider Unavail able Radha Shah JD EDWARDS Primary Care Provider +2 Colby Hirsch Unavailable Unavailable [facility] JD EDWARDS Primary Care Provider [phone] Reason for Visit * Reason Comments Med Refill Encounter Details Date Type Department Care Team (Late Contact Info) Description 04/08/2023 Refill [facility] MEDICINE [address] [place], [place] [phone] Marc Nicolas AGNP Mixed anxiety and depressive [...] Department Care Team (Late Contact Info) Description 10/04/2025 2:00 PM EST Office Visit [facility] OPTOMETRY [address] [place], [place] [phone] Akila Elizabeth, OD 230 [place] [address] 10/22/2025 1:00 PM EST Clinical Support [facility] MEDICINE [address] [place] [address] Kira Bansal, MEREDITH documented as of this encounter Visit Diagnoses Diagnosis Mixed anxiety and depressive disorder Dysthymic disorder documented in this encounter Additional Health Concerns Assessment Noted Time PHQ-9 Depression Total Score: 0 04/02/20 2:10 PM EDT documented as of this encounter Care Teams Director Of Audiology Relationship Specialty Start Date End Date Marc Nicolas AGNP PCP - General Family Medicine 10/22/22 04/20/23 Radha Shah FNP [address] [place] [address] PCP - General Family Medicine 04/21/23 04/25/24 AltagraciaYecenia whipple FNP [address] [place] [address] PCP - General Family Medicine 04/26/24 Colby Hirsch FNP [address] [place] [address] Nurse Practitioner Family Medicine 07/13/23 Candice Ugarte Vehicle And Equipment CleanerSupervisor Epoxy Fabrication 12/27/23 documented as of this encounter
--- OUTSIDE RECORDS SUMMARY | 2025-08-09 16:30 | XMS_ITS | Encounter Summary ---
Author Organization [employer] Address 75 [facility] 7t [place] [address] Care Team Providers Care Highway Engineering Teacher Name Role Phone Colby [place]sch FLAKE CUTTER OPERATOR Unavailable Unavailable [facility] Primary Care Provider Reason for Visit * Reason Comments Med Refill Encounter Details Date Type Department Care Team ([facility] Contact Info) Description 01/02/2025 Refill [facility] MEDICINE 230 [place], [place] [phone] [facility] 230 [place] [address] Viral upper respiratory illness Social History Tobacco [...] Visit [facility] OPTOMETRY [address] [place] [address] Glenn, Akila, OD 230 [place] [address] 10/22/2025 1:00 PM EST Clinical Support [facility] MEDICINE 230 [place] [address] Kira Bansal RN documented as of this encounter Visit Diagnoses Diagnosis Viral upper respiratory illness documented in this encounter Additional Health Concerns Assessment Noted Time PHQ-9 Depression Total Score: 0 10/24/19 25 1:15 PM EST documented as of this encounter Care Teams Highway Engineering Teacher Relationship Specialty Start Date End Date Yecenia Frias FNP [address] [place] [address] PCP - General Family Medicine 04/26/24 Colby [place]sch FNP Nurse Practitioner Family Medicine 07/13/23 Candice Ugarte Liquefied Natural Gas Plant OperatorFederal Java Developer 12/27/23 documented as of this encounter
--- OUTSIDE RECORDS SUMMARY | 2025-08-09 16:30 | XMS_ITS | Encounter Summary ---
Author Organization [employer] Address 75 [facility] 7t [place] [address] Care Team Providers Care Toe Puller Name Role Phone Marc Nicolas Primary Care Provider Unavail able Radha Shah AD COMPOSITOR Primary Care Provider +2 Colby [place]sch Unavailable Unavailable [facility] AD COMPOSITOR Primary Care Provider [phone] Reason for Visit * Reason Comments Med Refill Encounter Details Date Type Department Care Team ([facility] Contact Info) Description 04/08/[address] [facility] MEDICINE 230 [place] [address] Marc Nicolas AGNP Schizoaffective disorder, depressive type [...] Visit [facility] OPTOMETRY [address] [place], [place] [phone] Akila Elizabeth, OD 230 [place] [address] 10/22/2025 1:00 PM EST Clinical Support [facility] MEDICINE 230 [place], [place] [phone] Kira Bansal, RN documented as of this encounter Visit Diagnoses Diagnosis Schizoaffective disorder, depressive type (CMS/HCC) (HCC) Schizoaffective disorder, unspecified condition Mixed anxiety and depressive disorder Dysthymic disorder documented in this encounter Additional Health Concerns Assessment Noted Time PHQ-9 Depression Total Score: 0 04/02/20 2:10 PM EDT documented as of this encounter Care Teams Toe Puller Relationship Specialty Start Date End Date Marc Nicolas AGNP PCP - General Family Medicine 10/22/22 04/20/23 Radha Shah FNP [address] [place] [address] PCP - General Family Medicine 04/21/23 04/25/24 [place] Falls[place] FNP [address] [place] [address] PCP - General Family Medicine 04/26/24 Colby [place]sch FNP [address] [place] [address] Nurse Practitioner Family Medicine 07/13/23 Candice Ugarte News Content SpecialistSolar Installation Technician 12/27/23 documented as of this encounter
--- OUTSIDE RECORDS SUMMARY | 2025-08-09 16:30 | XMS_ITS | Encounter Summary ---
Author Organization [employer] Address 75 [facility] 7t [place] [address] Care Team Providers Care Insurance Claims Clerk Name Role Phone Colby [place]sch STEAMBLASTER Unavailable Unavailable [facility] Primary Care Provider [phone] Reason for Visit * Reason Comments Med Refill Encounter Details Date Type Department Care Team ([facility] st Contact Info) Description 04/18/2025 Refill [facility] MEDICINE 230 [place], [place] [phone] [facility] 230 [place], [place] [phone] Arthralgia, unspecified joint Social History Tobacco Use [...] Description 10/04/2025 2:00 PM EST Office Visit [facility] OPTOMETRY [address] [place] [address] Glenn, Akila, OD 230 [place] [address] 10/22/2025 1:00 PM EST Clinical Support [facility] MEDICINE 230 [place] [address] Kira Bansal, MEREDITH documented as of this encounter Visit Diagnoses Diagnosis Arthralgia, unspecified joint documented in this encounter Additional Health Concerns Assessment Noted Time PHQ-9 Depression Total Score: 0 02/27/20 25 10:29 AM EDT documented as of this encounter Care Teams Insurance Claims Clerk Relationship Specialty Start Date End Date Yecenia Frias FNP 230 [place] [address] PCP - General Family Medicine 04/26/24 Colby [place]sch FNP Nurse Practitioner Family Medicine 07/13/23 Candice Ugarte Trackmobile OperatorNurses Assistant 12/27/23 documented as of this encounter
--- OUTSIDE RECORDS SUMMARY | 2025-08-09 16:30 | XMS_ITS | Encounter Summary ---
Author Organization [employer] Address 75 [facility] 7t [place] [address] Care Team Providers Care Aerospace Manager Name Role Phone Radha Shah Primary Care Provider +[phone] Colby [place]sch Unavailable Unavailable [facility] Primary Care Provider [phone] Reason for Visit * Reason Comments Med Refill Encounter Details Date Type Department Care Team ([facility] st Contact Info) Description 11/24/2023 Refill [facility] MEDICINE 230 [place], [place] [phone] Radha Shah FNP 230 [place], [place] [phone] Multiple joint pain Social History Tobacco Use [...] Description 10/04/2025 2:00 PM EST Office Visit [facility] OPTOMETRY [address] [place] [address] Akila Elizabeth, OD 230 [place] [address] 10/22/2025 1:00 PM EST Clinical Support [facility] MEDICINE [address] [place] [address] Kira Bansal, MEREDITH documented as of this encounter Visit Diagnoses Diagnosis Multiple joint pain Pain in joint, multiple sites documented in this encounter Additional Health Concerns Assessment Noted Time PHQ-9 Depression Total Score: 8 09/02/19 24 11:12 AM EST documented as of this encounter Care Teams Aerospace Manager Relationship Specialty Start Date End Date Radha Shah FNP 230 [place] [address] PCP - General Family Medicine 04/21/23 04/25/24 Yecenia Frias FNP [address] [place] [address] PCP - General Family Medicine 04/26/24 Colby [place]sch FNP 230 [place] [address] Nurse Practitioner Family Medicine 07/13/23 Candice Ugarte Meat SmokerSuperintendent Concrete Mixing Plant 12/27/23 documented as of this encounter
--- OUTSIDE RECORDS SUMMARY | 2025-08-09 16:30 | XMS_ITS | Encounter Summary ---
Author Organization [employer] Address 75 [facility] 7t [place] [address] Care Team Providers Care Whipped Topping Supervisor Name Role Phone Colby [place]sch MANAGER HI Unavailable Unavailable [facility] Primary Care Provider [phone] Reason for Visit * Reason Comments Med Refill Encounter Details Date Type Department Care Team ([facility] st Contact Info) Description 03/12/2025 Refill [facility] MEDICINE 230 [place], [place] [phone] Radha Shah FNP 230 [place] [address] Social History Tobacco Use Types Packs/Day Years [...] Visit [facility] OPTOMETRY [address] [place] [address] Akila Elizabeth, OD 230 [place] [address] 10/22/2025 1:00 PM EST Clinical Support [facility] MEDICINE 230 [place] [address] Kira Bansal, MEREDITH documented as of this encounter Visit Diagnoses Not on filedocumented in this encounter Additional Health Concerns Assessment Noted Time PHQ-9 Depression Total Score: 0 02/27/20 25 10:29 AM EDT documented as of this encounter Care Teams Whipped Topping Supervisor Relationship Specialty Start Date End Date Yecenia Frias FNP 230 [place] [address] PCP - General Family Medicine 04/26/24 Colby [place]sch FNP Nurse Practitioner Family Medicine 07/13/23 Candice Ugarte Director Of ProcurementManager Of International 12/27/23 documented as of this encounter
--- OUTSIDE RECORDS SUMMARY | 2025-08-09 16:30 | XMS_ITS | Encounter Summary ---
Author Organization [employer] Address [address] [facility] [address] 7t [place] [address] Care Team Providers Care Curing Press Maintainer Name Role Phone Radha Shah Primary Care Provider +[phone] Colby [place]sch Unavailable Unavailable [facility] PRODUCTION HONING MACHINE OPERATOR Primary Care Provider [phone] Encounter Details Date Type Department Care Team ([facility] st Contact Info) Description 10/29/2023 Orders Only [facility] CHC MED & PEDS [address] [place], [place] [phone] Radha Shah FNP [address] [place] [address] Social History Tobacco Use Types Packs/Day Years [...] [facility] OPT[facility]ETRY [address] [place] [address] Akila Elizabeth, OD 230 [place] [address] 10/22/2025 1:00 PM EST Clinical Support [facility] MEDICINE 230 [place] [address] Kira Bansal RN documented as of this encounter Visit Diagnoses Not on filedocumented in this encounter Additional Health Concerns Assessment Noted Time PHQ-9 Depression Total Score: 8 09/02/19 24 11:12 AM EST documented as of this encounter Care Teams Curing Press Maintainer Relationship Specialty Start Date End Date Radha Shah FNP [address] [place] [address] PCP - General Family Medicine 04/21/23 04/25/24 Yecenia Frias FNP [address] [place] [address] PCP - General Family Medicine 04/26/24 Cobly Hirsch FNP [address] [place] [address] Nurse Practitioner Family Medicine 07/13/23 Candice Ugarte Nail KeggerStaffing Recruiter 12/27/23 documented as of this encounter
--- OUTSIDE RECORDS SUMMARY | 2025-08-09 16:30 | XMS_ITS | Encounter Summary ---
Author Organization [email or web address] Address 75 [facility] 7t [place] [address] Care Team Providers Care College Admissions Counselor Name Role Phone Colby [place]sch FURNACE CLEANER Unavailable Unavailable [facility] Primary Care Provider [phone] Reason for Visit * Reason Comments Med Refill Encounter Details Date Type Department Care Team ([facility] Contact Info) Description 07/05/2025 Refill [facility] MEDICINE [address] [place], [place] [phone] [facility] 230 [place] [address] Multiple joint pain Social History Tobacco Use [...] Description 10/04/2025 2:00 PM EST Office Visit [facility] OPTOMETRY [address] [place] [address] Glenn, Akila, OD 230 [place] [address] 10/22/2025 1:00 PM EST Clinical Support [facility] MEDICINE [address] [place] [address] Kira Bansal RN documented as of this encounter Goals [...] chronic kidney disease No Nichol Hou RN documented as of this encounter Visit [...] documented as of this encounter Care Teams College Admissions Counselor Relationship Specialty Start Date End Date Yecenia Frias FNP [address] [place] [address] PCP - General Family Medicine 04/26/24 Colby Hirsch FNP Nurse Practitioner Family Medicine 07/13/23 Candice Ugarte Cancer SpecUtility Bill Collection Clerk 12/27/23 documented as of this encounter
--- OUTSIDE RECORDS SUMMARY | 2025-08-09 16:30 | XMS_ITS | Encounter Summary ---
Author Organization [employer] Address [address] [facility] [address] 7t [place] [address] Care Team Providers Care Computer Designer Name Role Phone Radha Shah PLAN REP Primary Care Provider +[phone] Colby Hirsch PLAN REP Unavailable Unavailable [facility] PLAN REP Primary Care Provider [phone] Reason for Visit * Reason Comments Med Refill Encounter Details Date Type Department Care Team (Late st Contact Info) Description 06/04/2023 Refill [facility] MEDICINE 230 [place] [address] Marilee Buckner FNP Multiple joint [...] Description 10/04/2025 2:00 PM EST Office Visit [facility] OPTOMETRY [address] [place] [address] Akila Elizabeth, LAY 230 [place] [address] 10/22/2025 1:00 PM EST Clinical Support [facility] MEDICINE 230 [place] [address] Kira Bansal, RN documented as of this encounter Visit Diagnoses Diagnosis Multiple joint pain Pain in joint, multiple sites Mixed anxiety and depressive disorder Dysthymic disorder documented in this encounter Additional Health Concerns Assessment Noted Time PHQ-9 Depression Total Score: 0 04/02/20 23 2:10 PM EDT documented as of this encounter Care Teams Computer Designer Relationship Specialty Start Date End Date Radha Shah FNP 230 [place] [address] PCP - General Family Medicine 04/21/23 04/25/24 [place] FNP 230 [place] [address] PCP - General Family Medicine 04/26/24 Colby [place]sch FNP 230 [place] [address] Nurse Practitioner Family Medicine 07/13/23 Candice Ugarte Bar Machine Operator ProductionRoute Service Representative 12/27/23 documented as of this encounter
--- OUTSIDE RECORDS SUMMARY | 2025-08-09 16:30 | XMS_ITS | Encounter Summary ---
Author Organization [employer] Address 75 [facility] 7t [place] [address] Care Team Providers Care Case Sealer Name Role Phone Ruth Hoffmann SPRAYER AUTOMATIC SPRAY MACHINE Primary Care Provider Marc Nava Primary Care Provider Unavail able Radha Shah SPRAYER AUTOMATIC SPRAY MACHINE Primary Care Provider [phone] Colby HirschP Unavailable Unavailable [facility] SPRAYER AUTOMATIC SPRAY MACHINE Primary Care Provider [phone] Reason for Visit * Reason Onset Date Comments Appointment Request 10/01/2022 Encounter Details Date Type Department Care Team (Late st Contact Info) Description 10/01/[address] [facility] MEDICINE 230 [place], [place] [phone] Ruth Hoffmann FNP Appointment Request Social History [...] Description 10/04/2025 2:00 PM EST Office [facility] OPTOMETRY [address] [place], [place] [phone] Akila Elizabeth, OD 230 [place] [address] 10/22/2025 1:00 PM EST Clinical Support [facility] MEDICINE 230 [place] [address] Kira Bansal RN documented as of this encounter Visit Diagnoses Not on filedocumented in this encounter Care Teams Case Sealer Relationship Specialty Start Date End Date Ruth Hoffmann FNP PCP - General Family Medicine 07/21/22 10/21/22 Marc Nicolas AGNP PCP - General Family Medicine 10/22/22 04/20/23 Radha Shah FNP 230 [place] [address] PCP - General Family Medicine 04/21/23 04/25/24 [place] FNP [address] [place] [address] PCP - General Family Medicine 04/26/24 Colby Hirsch FNP [address] [place] [address] Nurse Practitioner Family Medicine 07/13/23 Candice Ugarte Cryogenic Transport DriverThird Miller 12/27/23 documented as of this encounter
--- OUTSIDE RECORDS SUMMARY | 2025-08-09 16:30 | XMS_ITS | Encounter Summary ---
Author Organization [employer] Address 75 [facility] 7t [place] [address] Care Team Providers Care Licensed Nuclear Control Room Operator Name Role Phone Radha Shah Primary Care Provider + Colby Hirsch Unavailable Unavailable [facility] COMPUTER ANALYST SUPERVISOR Primary Care Provider [phone] Reason for Visit * Reason Onset Date Comments telephone call 10/29/2023 Encounter Details Date Type Department Care Team (Late st Contact Info) Description 10/29/2023 Refill [facility] MEDICINE 230 [place], [place] [phone] Radha Shah FNP [address] [place], [place] [phone] Multiple joint pain Social History Tobacco Use [...] 10/04/2025 2:00 PM EST Office Visit [facility] OPTOMETRY [address] [place] [address] Akila Elizabeth, OD [address] [place] [address] 10/22/2025 1:00 PM EST Clinical Support [facility] MEDICINE [address] [place] [address] Kira Bansal RN documented as of this encounter Visit Diagnoses Diagnosis Multiple joint pain Pain in joint, multiple sites documented in this encounter Additional Health Concerns Assessment Noted Time PHQ-9 Depression Total Score: 8 09/02/19 24 11:12 AM EST documented as of this encounter Care Teams Licensed Nuclear Control Room Operator Relationship Specialty Start Date End Date Radha Shah FNP [address] [place] [address] PCP - General Family Medicine 04/21/23 04/25/24 Yecenia Frias FNP [address] [place] [address] PCP - General Family Medicine 04/26/24 Colby Hirsch FNP [address] [place] [address] Nurse Practitioner Family Medicine 07/13/23 Candice Ugarte Web Mobile DesignerStaff Readiness Officer 12/27/23 documented as of this encounter
--- OUTSIDE RECORDS SUMMARY | 2025-08-09 16:31 | XMS_ITS | Encounter Summary ---
Author Organization [employer] Address 75 [facility] 7t [place] [address] Care Team Providers Care Cook Manager Name Role Phone Radha ShahP Primary Care Provider +[phone] Colby Hirsch Unavailable Unavailable [facility] Primary Care Provider [phone] Reason for Visit * Reason Onset Date Comments Results 02/16/2024 Care Coordination 02/16/[address] Kelly joshua telephone call outreached Encounter Details Date Type Department Care Team ([facility] st Contact Info) Description 02/16/2024 Telephone [facility] MEDICINE [address] [place] [address] Radha Shah FNP [address] [place] [address] Results; Care Coordination ([facility]Moses Obrien telephone call outreached) Social History Tobacco [...] and understood. * Telephone Encounter - JACINTO Rmaos - 02/16/2024 7:16 PM EDT Please notify [...] results: labs Date when done: 02/06 Facility: [facility] Please contact pt at [phone] documented in this encounter Plan of Treatment Upcoming Encounters Date Type Department Care Team (Late st Contact Info) Description 10/04/2025 2:00 PM EST Office Visit [facility] OPTOMETRY [address] [place] [address] Glenn, Akila, OD 230 [place] [address] 10/22/2025 1:00 PM EST Clinical Support [facility] MEDICINE 230 [place] [address] Kira Bansal RN documented as of this encounter Visit Diagnoses Not on filedocumented in this encounter Additional Health Concerns Assessment Noted Time PHQ-9 Depression Total Score: 6 12/28/19 24 11:17 AM EDT documented as of this encounter Care Teams Cook Manager Relationship Specialty Start Date End Date Radha Shah FNP 230 [place] [address] PCP - General Family Medicine 04/21/23 04/25/24 SproulYecenia FNP [address] [place] [address] PCP - General Family Medicine 04/26/24 Colby Hirsch FNP [address] [place] [address] Nurse Practitioner Family Medicine 07/13/23 Candice Ugarte Gravity Prospecting Observer HelperMicrofiche Camera Operator 12/27/23 documented as of this encounter
--- OUTSIDE RECORDS SUMMARY | 2025-08-09 16:31 | XMS_ITS | Encounter Summary ---
Author Organization [employer] Address 75 [facility] 7t [place] [address] Care Team Providers Care Factory Maintenance Manager Name Role Phone Radha Shah Primary Care Provider +[phone] Colby Hirsch Unavailable Unavailable [facility] Primary Care Provider [phone] Reason for Visit * Reason Comments Med Refill Encounter Details Date Type Department Care Team ([facility] st Contact Info) Description 02/16/2024 Refill [facility] MEDICINE 230 [place], [place] [phone] Radha Shha FNP 230 [place], [place] [phone] Multiple joint pain Social History Tobacco Use [...] Description 10/04/2025 2:00 PM EST Office Visit [facility] OPTOMETRY [address] [place] [address] Akila Elizabeth, OD 230 [place] [address] 10/22/2025 1:00 PM EST Clinical Support [facility] MEDICINE [address] [place] [address] Kira Bansal, MEREDITH documented as of this encounter Visit Diagnoses Diagnosis Multiple joint pain Pain in joint, multiple sites documented in this encounter Additional Health Concerns Assessment Noted Time PHQ-9 Depression Total Score: 6 12/28/19 24 11:17 AM EDT documented as of this encounter Care Teams Factory Maintenance Manager Relationship Specialty Start Date End Date Radha Shah FNP [address] [place] [address] PCP - General Family Medicine 04/21/23 04/25/24 Yecenia Frias FNP 230 [place] [address] PCP - General Family Medicine 04/26/24 Colby Hirsch FNP [address] [place] [address] Nurse Practitioner Family Medicine 07/13/23 Candice Ugarte Reservations AgentGraduate Engineer 12/27/23 documented as of this encounter
--- OUTSIDE RECORDS SUMMARY | 2025-08-09 16:31 | XMS_ITS | Encounter Summary ---
Author Organization [employer] Address 75 [facility] 7t [place] [address] Care Team Providers Care Seismic Prospecting Supervisor Name Role Phone Marc Nicolas Primary Care Provider Unavail able Radha Shah MOBILE QA TESTER Primary Care Provider +3 Colby Hirsch Unavailable Unavailable Altagracia Yecenia MOBILE QA TESTER Primary Care Provider [phone] Reason for Visit * Reason Onset Date Comments Med Refill 03/16/2023 Encounter Details Date Type Department Care Team (Late st Contact Info) Description 03/16/[address] [facility] MEDICINE [address] [place], [place] [phone] Marc Nicolas AGNP Med Refill Social History [...] 03/16/2023 3:56 PM EDT Pt scheduled for OPERATING ROOM TECHNOLOGIST RV 03/17/23 @ 10am. Tramadol refill due 03/19/23, Clonazepam refill due 03/18/23.Will forward request to PCP after OPERATING ROOM TECHNOLOGIST appt 03/17/23. * Telephone Encounter - Natividad Rio - 03/16/2023 3:36 PM EDT Tc from pt requesting medication refill on traMADol (Ultram) 50 MG tablet and clonazePAM (KlonoPIN)0.5 MG tablet documented in this encounter Plan of Treatment Upcoming Encounters Date Type Department Care Team (Late st Contact Info) Description 10/04/2025 2:00 PM EST Office Visit [facility] OPTOMETRY [address] [place] [address] Akila Elizabeth, OD 230 [place] [address] 10/22/2025 1:00 PM EST Clinical Support [facility] MEDICINE [address] [place] [address] Kira Bansal, MEREDITH documented as of this encounter Visit Diagnoses Not on filedocumented in this encounter Additional Health Concerns Assessment Noted Time PHQ-9 Depression Total Score: 13 023 3:27 PM EDT documented as of this encounter Care Teams Seismic Prospecting Supervisor Relationship Specialty Start Date End Date Marc Nicolas AGNP PCP - General Family Medicine 10/22/22 04/20/23 Radha Shah FNP [address] [place] [address] PCP - General Family Medicine 04/21/23 04/25/24 Yecenia Frias FNP 230 [place] [address] PCP - General Family Medicine 04/26/24 Colby Hirsch FNP [address] [place] [address] Nurse Practitioner Family Medicine 07/13/23 Candice Ugarte Computer Aided Design DrafterRn Chemical Dependency 12/27/23 documented as of this encounter
--- OUTSIDE RECORDS SUMMARY | 2025-08-09 16:31 | XMS_ITS | Encounter Summary ---
Author Organization [employer] Address 75 [facility] 7t [place] [address] Care Team Providers Care Skip Tender Name Role Phone Marc Nicolas Primary Care Provider Unavail able Radha Shah BULL GANG WORKER Primary Care Provider +5 Colby Hirsch Unavailable Unavailable [facility] BULL GANG WORKER Primary Care Provider [phone] Reason for Visit * Reason Comments Med Refill Encounter Details Date Type Department Care Team ([facility] Contact Info) Description 03/10/2023 Refill [facility] [address] [place], [place] [phone] Marc Nicolas AGNP Mixed anxiety and depressive [...] Description 10/04/2025 2:00 PM EST Office Visit [facility] OPTOMETRY [address] [place], [place] [phone] Akila Elizabeth, OD [address] [place], [place] [phone] 10/22/2025 1:00 PM EST Clinical Support [facility] MEDICINE [address] [place] [address] Kira Bansal, MEREDITH documented as of this encounter Visit Diagnoses Diagnosis Mixed anxiety and depressive disorder Dysthymic disorder documented in this encounter Additional Health Concerns Assessment Noted Time PHQ-9 Depression Total Score: 13 023 3:27 PM EDT documented as of this encounter Care Teams Skip Tender Relationship Specialty Start Date End Date Marc Nicolas AGNP PCP - General Family Medicine 10/22/22 04/20/23 Radha Shah FNP [address] [place] [address] [phone] PCP - General Family Medicine 04/21/23 04/25/24 Maple LakeYecenia FNP [address] [place] [address] PCP - General Family Medicine 04/26/24 Colby Hirsch FNP [address] [place] [address] Nurse Practitioner Family Medicine 07/13/23 Candice Ugarte Healthcare Social WorkerDigital Marketing Strategist 12/27/23 documented as of this encounter
--- OUTSIDE RECORDS SUMMARY | 2025-08-09 16:31 | XMS_ITS | Encounter Summary ---
Author Organization [employer] Address [address] [facility] [address] 7t [place] [address] Care Team Providers Care Bleacher Lard Name Role Phone Radha Shah Primary Care Provider +5 Colby Hirsch Unavailable Unavailable [facility] SILK HANGER Primary Care Provider [phone] Encounter Details Date Type Department Care Team ([facility] st Contact Info) Description 03/08/2024 Orders Only [facility] MED & PEDS [address] [place], [place] [phone] Radha Shah FNP [address] [place] [address] Social History Tobacco Use Types Packs/Day Years [...] Visit [facility] OPTOMETRY [address] [place] [address] Akila Elizabeth, OD 230 [place] [address] 10/22/2025 1:00 PM EST Clinical Support [facility] MEDICINE [address] [place] [address] Kira Bansal, MEREDITH documented as of this encounter Visit Diagnoses Not on filedocumented in this encounter Additional Health Concerns Assessment Noted Time PHQ-9 Depression Total Score: 7 03/07/20 24 10:13 AM EDT documented as of this encounter Care Teams Bleacher Lard Relationship Specialty Start Date End Date Radha Shah FNP [address] [place] [address] PCP - General Family Medicine 04/21/23 04/25/24 Yecenia Frias FNP [address] [place] [address] PCP - General Family Medicine 04/26/24 Colby Hirsch FNP [address] [place] [address] Nurse Practitioner Family Medicine 07/13/23 Candice Ugarte Mastercam ProgrammerAdmissions Manager 12/27/23 documented as of this encounter
--- OUTSIDE RECORDS SUMMARY | 2025-08-09 16:31 | XMS_ITS | Encounter Summary ---
Author Organization [employer] Address 75 [facility] 7t [place] [address] Care Team Providers Care Gusset Ripper Name Role Phone Radha Shah Primary Care Provider +6 Colby Hirsch Unavailable Unavailable [facility] Primary Care Provider [phone] Reason for Visit * Reason Comments Med Refill Encounter Details Date Type Department Care Team ([facility] st Contact Info) Description 06/30/2023 Refill [facility] MEDICINE [address] [place], [place] [phone] Radha Shah FNP [address] [place], [place] [phone] Multiple joint pain Social History Tobacco Use [...] Description 10/04/2025 2:00 PM EST Office Visit [facility] OPTOMETRY [address] [place] [address] Akila Elizabeth, OD 230 [place] [address] 10/22/2025 1:00 PM EST Clinical Support [facility] MEDICINE [address] [place] [address] Kira Bansal, MEREDITH documented as of this encounter Visit Diagnoses Diagnosis Multiple joint pain Pain in joint, multiple sites documented in this encounter Additional Health Concerns Assessment Noted Time PHQ-9 Depression Total Score: 6 06/15/20 23 10:23 AM EDT documented as of this encounter Care Teams Gusset Ripper Relationship Specialty Start Date End Date Radha Shah FNP [address] [place] [address] PCP - General Family Medicine 04/21/23 04/25/24 Yecenia Frias FNP 230 [place] [address] PCP - General Family Medicine 04/26/24 Colby Hirsch FNP [address] [place] [address] Nurse Practitioner Family Medicine 07/13/23 Candice Ugarte Mechanical Manufacturing EngineerTester Rocket Engine 12/27/23 documented as of this encounter
--- OUTSIDE RECORDS SUMMARY | 2025-08-09 16:31 | XMS_ITS | Encounter Summary ---
Author Organization [employer] Address 75 [facility] 7t [place] [address] Care Team Providers Care Vice President Of Instruction Name Role Phone Colby Hirsch RIBBON CLEANER Unavailable Unavailable [facility] Primary Care Provider [phone] Reason for Visit * Reason Onset Date Comments Med Refill 09/29/2024 Encounter Details Date Type Department Care Team ([facility] Contact Info) Description 09/29/2024 Telephone [facility] MEDICINE [address] [place], [place] [phone] [facility] 230 [place], [place] [phone] Med Refill Social History Tobacco Use Types [...] Visit [facility] OPTOMETRY [address] [place] [address] Glenn, Akila, OD [address] [place] [address] 10/22/2025 1:00 PM EST Clinical Support [facility] MEDICINE [address] [place] [address] Kira Bansal RN documented as of this encounter Visit Diagnoses Not on filedocumented in this encounter Additional Health Concerns Assessment Noted Time PHQ-9 Depression Total Score: 7 03/07/20 24 10:13 AM EDT documented as of this encounter Care Teams Vice President Of Instruction Relationship Specialty Start Date End Date Yecenia Frias FNP 230 [place] [address] PCP - General Family Medicine 04/26/24 Colby Hirsch FNP Nurse Practitioner Family Medicine 07/13/23 Candice Ugarte Medical Office SchedulerMine Technician 12/27/23 documented as of this encounter
--- OUTSIDE RECORDS SUMMARY | 2025-08-09 16:31 | XMS_ITS | Encounter Summary ---
Author Organization [employer] Address 75 [facility] 7t [place] [address] Care Team Providers Care Lead Manufacturing Technician Name Role Phone Radha Shah SAND MIXER MACHINE Primary Care Provider +7 Colby Hirsch Unavailable Unavailable [facility] Primary Care Provider [phone] Reason for Visit * Reason Comments Med Refill Encounter Details Date Type Department Care Team (Late st Contact Info) Description 06/28/2023 Refill [facility] MED & PEDS [address] [place], [place] [phone] Radha Shah FNP [address] [place], [place] [phone] Schizoaffective disorder, depressive type (CMS/HCC) Social History [...] Description 10/04/2025 2:00 PM EST Office Visit [facility] OPTOMETRY [address] [place], [place] [phone] Glenn, Akila, OD 230 [place] [address] 10/22/2025 1:00 PM EST Clinical Support [facility] MEDICINE [address] [place] [address] Kira Bansal RN documented as of this encounter Visit Diagnoses Diagnosis Schizoaffective disorder, depressive type (CMS/HCC) (HCC) Schizoaffective disorder, unspecified condition documented in this encounter Additional Health Concerns Assessment Noted Time PHQ-9 Depression Total Score: 6 06/15/20 23 10:23 AM EDT documented as of this encounter Care Teams Lead Manufacturing Technician Relationship Specialty Start Date End Date Radha Shah FNP [address] [place] [address] PCP - General Family Medicine 04/21/23 04/25/24 Yecenia Frias FNP [address] [place] [address] PCP - General Family Medicine 04/26/24 Colby Hirsch FNP [address] [place] [address] Nurse Practitioner Family Medicine 07/13/23 Candice Ugarte Scrubber Machine TenderBarrel Lapper 12/27/23 documented as of this encounter
--- OUTSIDE RECORDS SUMMARY | 2025-08-09 16:31 | XMS_ITS | Encounter Summary ---
Author Organization [employer] Address 75 [facility] 7t [place] [address] Care Team Providers Care Manager Of Learning Name Role Phone Marc Nicolas Primary Care Provider Unavail able Radha Shah WHITE SIDEWALL TIRE BUFFER Primary Care Provider +7 Colby Hirsch Unavailable Unavailable [facility] WHITE SIDEWALL TIRE BUFFER Primary Care Provider [phone] Reason for Visit * Reason Onset Date Comments Med Refill 03/10/2023 Encounter Details Date Type Department Care Team ([facility] Contact Info) Description 03/10/2023 Telephone [facility] MEDICINE [address] [place], [place] [phone] Marc Nicolas AGNP Med Refill Social History [...] Upcoming Encounters Date Type Department Care Team ([facility] Contact Info) Description 10/04/2025 2:00 PM EST Office Visit [facility] OPTOMETRY [address] [place], [place] [phone] Akila Elizabeth, OD [address] [place] [address] 10/22/2025 1:00 PM EST Clinical Support [facility] MEDICINE [address] [place] [address] Kira Bansal, MEREDITH documented as of this encounter Visit Diagnoses Not on filedocumented in this encounter Additional Health Concerns Assessment Noted Time PHQ-9 Depression Total Score: 13 023 3:27 PM EDT documented as of this encounter Care Teams Manager Of Learning Relationship Specialty Start Date End Date Marc Nicolas AGNP PCP - General Family Medicine 10/22/22 04/20/23 Radha Shah FNP [address] [place] [address] PCP - General Family Medicine 04/21/23 04/25/24 [place] FNP [address] [place] [address] PCP - General Family Medicine 04/26/24 Colby Hirsch FNP [address] [place] [address] Nurse Practitioner Family Medicine 07/13/23 Candice Ugarte Supervisor Assembly DepartmentManual Arts Therapy Teacher 12/27/23 documented as of this encounter
--- OUTSIDE RECORDS SUMMARY | 2025-08-09 16:31 | XMS_ITS | Encounter Summary ---
Author Organization [employer] Address 75 [facility] 7t [place] [address] Care Team Providers Care Flotation Tank Operator Name Role Phone Radha Shah Primary Care Provider +0 Colby Hirsch Unavailable Unavailable [facility] Primary Care Provider [phone] Reason for Visit * Reason Comments Med Refill Encounter Details Date Type Department Care Team (Late st Contact Info) Description 01/04/2024 Refill [facility] MEDICINE [address] [place] [address] Colby Hirsch FNP Social History [...] Description 10/04/2025 2:00 PM EST Office Visit [facility] OPTOMETRY [address] [place] [address] Glenn, Akila, OD [address] [place] [address] 10/22/2025 1:00 PM EST Clinical Support [facility] MEDICINE [address] [place] [address] Kira Bansal RN documented as of this encounter Visit Diagnoses Not on filedocumented in this encounter Additional Health Concerns Assessment Noted Time PHQ-9 Depression Total Score: 6 12/28/19 24 11:17 AM EDT documented as of this encounter Care Teams Flotation Tank Operator Relationship Specialty Start Date End Date Radha Shah FNP [address] [place] [address] PCP - General Family Medicine 04/21/23 04/25/24 ElbaYecenia FNP [address] [place] [address] PCP - General Family Medicine 04/26/24 Colby Hirsch FNP [address] [place] [address] Nurse Practitioner Family Medicine 07/13/23 Candice Ugarte Psychologist Private PracticeAssociate Professor Of History 5/6/24 documented as of this encounter
--- OUTSIDE RECORDS SUMMARY | 2025-08-09 16:31 | XMS_ITS | Encounter Summary ---
Author Organization [employer] Address 75 [facility] 7t [place] [address] Care Team Providers Care Blankbook Forwarder Name Role Phone Marc Nicolas Primary Care Provider Unavail able Radha Shah HOME HEALTH TRAVEL PT Primary Care Provider +3 Colby Hirsch Unavailable Unavailable [facility] HOME HEALTH TRAVEL PT Primary Care Provider [phone] Reason for Visit * Reason Comments Med Refill Encounter Details Date Type Department Care Team ([facility] Contact Info) Description 03/17/2023 Refill [facility] MEDICINE [address] [place], [place] [phone] Marc Nicolas AGNP Mixed anxiety and depressive [...] Upcoming Encounters Date Type Department Care Team ([facility] Contact Info) Description 10/04/2025 2:00 PM EST Office Visit [facility] OPTOMETRY [address] [place], [place] [phone] Glenn, Akila, OD 230 [place], [place] [phone] 10/22/2025 1:00 PM EST Clinical Support [facility] MEDICINE [address] [place], [place] [phone] Kira Bansal, MEREDITH documented as of this encounter Visit Diagnoses Diagnosis Mixed anxiety and depressive disorder Dysthymic disorder documented in this encounter Additional Health Concerns Assessment Noted Time PHQ-9 Depression Total Score: 13 023 3:27 PM EDT documented as of this encounter Care Teams Blankbook Forwarder Relationship Specialty Start Date End Date Marc Nicolas AGNP PCP - General Family Medicine 10/22/22 04/20/23 Radha Shah FNP [address] [place], [place] [phone] PCP - General Family Medicine 04/21/23 04/25/24 Durham[place] FNP [address] [place] [address] [phone] PCP - General Family Medicine 04/26/24 Colby Hirsch FNP [address] [place] [address] Nurse Practitioner Family Medicine 07/13/23 Candice Ugarte Garden Tractor MechanicConsulting Systems Engineer 12/27/23 documented as of this encounter
--- OUTSIDE RECORDS SUMMARY | 2025-08-09 16:31 | XMS_ITS | Encounter Summary ---
Author Organization [employer] Address 75 [facility] 7t [place] [address] Care Team Providers Care Management Scientist Name Role Phone Colby Hirsch EMBOSSING PRESS OPERATOR MOLDED GOODS Unavailable Unavailable [facility] Primary Care Provider [phone] Encounter Details Date Type Department Care Team ([facility] Contact Info) Description 08/11/2024 Telephone [facility] MEDICINE [address] [place], [place] [phone] [facility] 230 [place] [address] Social History Tobacco Use Types Packs/Day Years [...] Description 10/04/2025 2:00 PM EST Office Visit [facility] OPTOMETRY [address] [place] [address] Glenn, Akila, OD 230 [place] [address] 10/22/2025 1:00 PM EST Clinical Support [facility] MEDICINE [address] [place] [address] Kira Bansal RN documented as of this encounter Visit Diagnoses Not on filedocumented in this encounter Additional Health Concerns Assessment Noted Time PHQ-9 Depression Total Score: 7 03/07/20 24 10:13 AM EDT documented as of this encounter Care Teams Management Scientist Relationship Specialty Start Date End Date Yecenia Frias FNP 230 [place] [address] PCP - General Family Medicine 04/26/24 Colby Hirsch FNP Nurse Practitioner Family Medicine 07/13/23 Candice Ugarte Shrimp Peeling Machine OperatorBrake Repairer Air 12/27/23 documented as of this encounter
--- OUTSIDE RECORDS SUMMARY | 2025-08-09 16:31 | XMS_ITS | Encounter Summary ---
Author Organization [employer] Address [address] [facility] [address] 7t [place] [address] Care Team Providers Care Superintendent Maintenance Name Role Phone Radha Shah HR INTERN Primary Care Provider +3 Colby Hirsch HR INTERN Unavailable Unavailable [facility] HR INTERN Primary Care Provider [phone] Reason for Visit * Reason Comments Med Refill Encounter Details Date Type Department Care Team (Late st Contact Info) Description 06/09/2023 Refill [facility] MEDICINE [address] [place] [address] Marilee Buckner FNP Multiple joint [...] Office Visit [facility] OPTOMETRY [address] [place] [address] Glenn, Akila, OD 230 [place] [address] 10/22/2025 1:00 PM EST Clinical Support [facility] MEDICINE [address] [place] [address] Kira Bansal RN documented as of this encounter Visit Diagnoses Diagnosis Multiple joint pain Pain in joint, multiple sites Mixed anxiety and depressive disorder Dysthymic disorder documented in this encounter Additional Health Concerns Assessment Noted Time PHQ-9 Depression Total Score: 18 023 11:25 AM EDT documented as of this encounter Care Teams Superintendent Maintenance Relationship Specialty Start Date End Date Radha Shah FNP [address] [place] [address] PCP - General Family Medicine 04/21/23 04/25/24 Yecenia Frias FNP [address] [place] [address] PCP - General Family Medicine 04/26/24 Colby Hirsch FNP [address] [place] [address] Nurse Practitioner Family Medicine 07/13/23 Candice Ugarte Feed Inspection SupervisorPassenger Car Conductor 12/27/23 documented as of this encounter
--- OUTSIDE RECORDS SUMMARY | 2025-08-09 16:31 | XMS_ITS | Encounter Summary ---
Author Organization [employer] Address 75 [facility] 7t [place] [address] Care Team Providers Care [place] Polisher Operator Name Role Phone Radha Shah FISH MACHINE FEEDER Primary Care Provider +6 Colby Hirsch Unavailable Unavailable [facility] Primary Care Provider [phone] Encounter Details Date Type Department Care Team ([facility] Contact Info) Description 02/17/2024 Community Care Management [facility] MEDICINE [address] [place], [place] [phone] Radha Shah FNP [address] [place] [address] Social History Tobacco Use Types Packs/Day Years [...] Description 10/04/2025 2:00 PM EST Office Visit [facility] OPTOMETRY [address] [place] [address] Akila Elizabeth, OD 230 [place] [address] 10/22/2025 1:00 PM EST Clinical Support [facility] MEDICINE [address] [place] [address] Kira Bansal RN documented as of this encounter Visit Diagnoses Not on filedocumented in this encounter Additional Health Concerns Assessment Noted Time PHQ-9 Depression Total Score: 6 12/28/19 24 11:17 AM EDT documented as of this encounter Care Teams [place] Polisher Operator Relationship Specialty Start Date End Date Radha Shah FNP [address] [place] [address] PCP - General Family Medicine 04/21/23 04/25/24 Yecenia Frias FNP [address] [place] [address] PCP - General Family Medicine 04/26/24 Colby Hirsch FNP [address] [place] [address] Nurse Practitioner Family Medicine 07/13/23 Candice Ugarte Hobbing Machine OperatorClerk Stenographer 12/27/23 documented as of this encounter
--- OUTSIDE RECORDS SUMMARY | 2025-08-09 16:31 | XMS_ITS | Encounter Summary ---
Author Organization [employer] Address 75 [facility] 7t [place] [address] Care Team Providers Care Fire Equipment Repairer Inspector Name Role Phone Colby Hirsch SENIOR VICE PRESIDENT & GENERAL COUNSEL Unavailable Unavailable [facility] Primary Care Provider [phone] Reason for Visit * Reason Comments Med Refill Encounter Details Date Type Department Care Team ([facility] Contact Info) Description 07/09/2025 Refill [facility] [address] [place], [place] [phone] [facility] 230 [place], [place] [phone] Multiple joint pain Social History Tobacco Use [...] EST Office Visit [facility] OPTOMETRY [address] [place] [address] Akila Elizabeth, OD 230 [place] [address] 10/22/2025 1:00 PM EST Clinical Support [facility] [address] [place] [address] Kira Bansal, MEERDITH documented as of this encounter Goals Goal [...] as of this encounter Care Teams Fire Equipment Repairer Inspector Relationship Specialty Start Date End Date Yecenia Frias FNP [address] [place] [address] PCP - General Family Medicine 04/26/24 Colby Hirsch FNP Nurse Practitioner Family Medicine 07/13/23 Candice Ugarte Project ArchivistMetal Drilling Machine Operator 12/27/23 documented as of this encounter
--- OUTSIDE RECORDS SUMMARY | 2025-08-09 16:31 | XMS_ITS | Encounter Summary ---
Author Organization [employer] Address [address] [facility] 7t [place] [address] Care Team Providers Care Gradall Operator Name Role Phone Colby Hirsch FOOD AND NUTRITION TEACHER Unavailable Unavailable [facility] Primary Care Provider [phone] Reason for Visit * Reason Comments Med Refill Encounter Details Date Type Department Care Team ([facility] Contact Info) Description 10/31/2024 Refill [facility] [address] [place], [place] [phone] [facility] [address] [place] [address] Type 2 diabetes mellitus without complication, with long-term current use of insulin ([facility]) Social History Tobacco Use Types Packs/Day Years [...] Description 10/04/2025 2:00 PM EST Office Visit [facility] [address] [place], [place] [phone] Akila Elizabeth, OD [address] [place] [address] 10/22/2025 1:00 PM EST Clinical Support [facility] [address] [place] [address] Kira Bansal, MEREDITH documented as of this encounter Visit Diagnoses Diagnosis Type 2 diabetes mellitus without complication, with long-term current use of insulin (HCC) documented in this encounter Additional Health Concerns Assessment Noted Time PHQ-9 Depression Total Score: 0 10/24/19 25 1:15 PM EST documented as of this encounter Care Teams Gradall Operator Relationship Specialty Start Date End Date Yecenia Frias FNP [address] [place] [address] PCP - General Family Medicine 04/26/24 Colby Hirsch FNP Nurse Practitioner Family Medicine 07/13/23 Candice Ugarte Director Of Channel MarketingVp Project 12/27/23 documented as of this encounter
--- OUTSIDE RECORDS SUMMARY | 2025-08-09 16:31 | XMS_ITS | Encounter Summary ---
Author Organization [employer] Address [address] [facility] 7t [place] [address] Care Team Providers Care Radio Television Announcer Name Role Phone Radha Shah Primary Care Provider +[phone] Colby Hirsch Unavailable Unavailable [facility] Primary Care Provider [phone] Reason for Visit * Reason Comments Med Refill Encounter Details Date Type Department Care Team ([facility] st Contact Info) Description 07/02/2023 Refill [facility] [address] [place], [place] [phone] Radha Shah FNP [address] [place], [place] [phone] Multiple joint pain Social History Tobacco Use [...] Office Visit [facility] OPTOMETRY [address] [place] [address] Akila Elizabeth, OD [address] [place] [address] 10/22/2025 1:00 PM EST Clinical Support [facility] [address] [place] [address] Kira Bansal, MEREDITH documented as of this encounter Visit Diagnoses Diagnosis Multiple joint pain Pain in joint, multiple sites documented in this encounter Additional Health Concerns Assessment Noted Time PHQ-9 Depression Total Score: 6 06/15/20 23 10:23 AM EDT documented as of this encounter Care Teams Radio Television Announcer Relationship Specialty Start Date End Date Radha Shah FNP [address] [place] [address] PCP - General Family Medicine 04/21/23 04/25/24 Yecenia Frias FNP [address] [place] [address] PCP - General Family Medicine 04/26/24 Colby Hirsch FNP [address] [place] [address] Nurse Practitioner Family Medicine 07/13/23 Candice Ugarte Senior Web EngineerConcert Promoter 12/27/23 documented as of this encounter
--- OUTSIDE RECORDS SUMMARY | 2025-08-09 16:31 | XMS_ITS | Encounter Summary ---
Author Organization [employer] Address [address] [facility] 7[address] [place] [address] Care Team Providers Care Scientific Software Engineer Name Role Phone Radha Shah SONOGRAPHY TECHNICIAN Primary Care Provider [phone] Colby Hirsch SONOGRAPHY TECHNICIAN Unavailable Unavailable [facility] Primary Care Provider [phone] Reason for Visit * Reason Comments Med Refill Encounter Details Date Type Department Care Team (Late st Contact Info) Description 06/16/2023 Refill [facility] MEDICINE [address] [place] [address] Marc Nicolas AGNP Pain Social [...] Description 10/04/2025 2:00 PM EST Office Visit [facility] OPTOMETRY [address] [place] [address] Glenn, Akila, OD [address] [place] [address] 10/22/2025 1:00 PM EST Clinical Support [facility] [address] [place] [address] Kira Bansal RN documented as of this encounter Visit Diagnoses Diagnosis Pain Generalized pain documented in this encounter Additional Health Concerns Assessment Noted Time PHQ-9 Depression Total Score: 6 06/15/20 23 10:23 AM EDT documented as of this encounter Care Teams Scientific Software Engineer Relationship Specialty Start Date End Date Radha Shah FNP [address] [place] [address] PCP - General Family Medicine 04/21/23 04/25/24 BridgetonYecenia FNP [address] [place] [address] PCP - General Family Medicine 04/26/24 Colby Hirsch FNP [address] [place] [address] Nurse Practitioner Family Medicine 07/13/23 Candice Ugarte Belt PuncherLog Peeler 12/27/23 documented as of this encounter
--- OUTSIDE RECORDS SUMMARY | 2025-08-09 16:31 | XMS_ITS | Encounter Summary ---
Author Organization [employer] Address [address] [facility] 7[address] [place] [address] Care Team Providers Care Sheet Rock Finisher Name Role Phone Marc Nicolas Primary Care Provider Unavail able Radha Shah [employer] Primary Care Provider +[phone] Colby Hirsch Unavailable Unavailable [facility] [employer] Primary Care Provider [phone] Reason for Visit * Reason Comments Med Refill Encounter Details Date Type Department Care Team (Late st Contact Info) Description 03/10/2023 Refill [facility] [address] [place], [place] [phone] Marc Nicolas AGNP Mixed anxiety and depressive [...] Will send to PCP on 03/18/23. Has [employer] scheduled 03/17/23. * Telephone Encounter - Chika Low - 03/15/2023 9:14 AM EDT Tc from patient requesting a med refill for medication tramadol [address] Nicolas documented in this encounter Plan of Treatment Upcoming Encounters Date Type Department Care Team (Late st Contact Info) Description 10/04/2025 2:00 PM EST Office Visit [facility] OPTOMETRY [address] [place], [place] [phone] Glenn, Akila, OD [address] [place] [address] 10/22/2025 1:00 PM EST Clinical Support [facility] MEDICINE [address] [place] [address] Kira Bansal, MEREDITH documented as of this encounter Visit Diagnoses Diagnosis Mixed anxiety and depressive disorder Dysthymic disorder Multiple joint pain Pain in joint, multiple sites documented in this encounter Additional Health Concerns Assessment Noted Time PHQ-9 Depression Total Score: 13 023 3:27 PM EDT documented as of this encounter Care Teams Sheet Rock Finisher Relationship Specialty Start Date End Date Marc Nicolas AGNP PCP - General Family Medicine 10/22/22 04/20/23 Radha Shah FNP [address] [place] [address] PCP - General Family Medicine 04/21/23 04/25/24 Yecenia Frias FNP [address] [place] [address] PCP - General Family Medicine 04/26/24 Colby Hirsch FNP [address] [place] [address] Nurse Practitioner Family Medicine 07/13/23 Candice Ugarte Trombone Slide AssemblerQuotation Checker 12/27/23 documented as of this encounter
--- OUTSIDE RECORDS SUMMARY | 2025-08-09 16:31 | XMS_ITS | Encounter Summary ---
Author Organization [employer] Address [address] [facility] 7t [place] [address] Care Team Providers Care Stator Tester Name Role Phone Radha Shah Primary Care Provider + Colby Hirsch Unavailable Unavailable [facility] CHILD CARE SITTER Primary Care Provider [phone] Encounter Details Date Type Department Care Team ([facility] st Contact Info) Description 02/16/2024 Orders Only [facility] [address] [place], [place] [phone] Radha Shah FNP [address] [place], [place] [phone] Routine adult health maintenance (Primary Dx) Social [...] 2:00 PM EST Office Visit [facility] OPTOMET[facility] [address] [place] [address] Akila Elizabeth, OD [address] [place] [address] 10/22/2025 1:00 PM EST Clinical Support [facility] [address] [place] [address] Kira Bansal, MEREDITH documented as of this encounter Visit Diagnoses Diagnosis Routine adult health maintenance- Primary documented in this encounter Additional Health Concerns Assessment Noted Time PHQ-9 Depression Total Score: 6 12/28/19 24 11:17 AM EDT documented as of this encounter Care Teams Stator Tester Relationship Specialty Start Date End Date Radha Shah FNP [address] [place] [address] PCP - General Family Medicine 04/21/23 04/25/24 Yecenia Frias FNP [address] [place] [address] PCP - General Family Medicine 04/26/24 Colby Hirsch FNP [address] [place] [address] Nurse Practitioner Family Medicine 07/13/23 Candice Ugarte Central Communications SpecialistRetail Shift Manager 12/27/23 documented as of this encounter
--- OUTSIDE RECORDS SUMMARY | 2025-08-09 16:31 | XMS_ITS | Encounter Summary ---
Author Organization [employer] Address [address] [facility] [address] [place] [address] Care Team Providers Care Box Chipper Name Role Phone Marc Nicolas Primary Care Provider Unavail able Radha Shah OFFICE ADMINISTRATION Primary Care Provider +1 Colby Hirsch OFFICE ADMINISTRATION Unavailable Unavailable [facility] OFFICE ADMINISTRATION Primary Care Provider [phone] Reason for Visit * Reason Comments Med Refill Encounter Details Date Type Department Care Team (Late Contact Info) Description 04/07/2023 Refill [facility] [address] [place], [place] [phone] Marc Nicolas AGNP Multiple joint pain Social [...] Upcoming Encounters Date Type Department [facility] Description 10/04/2025 2:00 PM EST Office Visit [facility]OMET[facility] [address] [place], [place] [phone] Akila Elizabeth, OD [address] [facility] [place], [place] [phone] 10/22/2025 1:00 PM EST Clinical Support [facility] MEDICINE [address] [place] [address] Kira Bansal, RN documented as of this encounter Visit Diagnoses Diagnosis Multiple joint pain Pain in joint, multiple sites documented in this encounter Additional Health Concerns Assessment Noted Time PHQ-9 Depression Total Score: 0 04/02/20 2:10 PM EDT documented as of this encounter Care Teams Box Chipper Relationship Specialty Start Date End Date Marc Nicolas AGNP PCP - General Family Medicine 10/22/22 04/20/23 Radha Shah FNP [address] [place] [address] PCP - General Family Medicine 04/21/23 04/25/24 AltagraciaYecenia whipple FNP [address] [place] [address] PCP - General Family Medicine 04/26/24 Colby Hirsch FNP [address] [place] [address] Nurse Practitioner Family Medicine 07/13/23 Candice Uagrte Network Engineer AdministratorScale Mechanic 12/27/23 documented as of this encounter
== END 2025-08-09 13:10 | disposition home or self-care (01) ==
PROVIDERS: Physician Assistant Medical; Emergency Provider Emergency Medicine; PCP Registered Nurse
DX: R10.A1 Flank pain, right side (principal); N20.0 Calculus of kidney; Z87.442 Personal history of urinary calculi; E11.9 Type 2 diabetes mellitus without complications; I10 Essential (primary) hypertension; E78.5 Hyperlipidemia, unspecified
CPT/HCPCS: 36415; 76775; 80048; 80076; 81001; 83690; 84702; 85025; 99282; 99284

== ENCOUNTER → 2025-08-09 11:19 | Outpatient (BNV) | payer MEDICAID, SELFPAY | PROVIDERS: PCP Registered Nurse; Visit Provider Radiology Diagnostic Radiology | DX: N20.0 Calculus of kidney (principal) | CPT/HCPCS: 76775 ==